=== PATIENT | female | born 1960 | race Caucasian/White ===

== ENCOUNTER 2020-02-24 08:44 | Inpatient (IN) ==
[2020-02-24] MEDS ORDERED: SODIUM CHLORIDE 0.9% 1000ML 1,000 ML IV ONE ×2 (08:53→09:45)
[2020-02-24] MEDS ORDERED: LEVOFLOXACIN/D5W 750 MG/150 ML BAG IV STA (08:54)
[2020-02-24 09:19] LABS: INR 1.4 (0.9-1.1); Partial Thromboplastin Ratio 1.2; Partial Thromboplastin Time 34.7 Seconds (21.0-31.0); Prothrombin Time 14.6 Seconds (9.0-12.0)
[2020-02-24] MEDS ORDERED: VANCOMYCIN CONSULT ACTIVE PRN ×2 (09:19→15:42)
[2020-02-24] MEDS ORDERED: VANCOMYCIN HCL 1,750 MG in SODIUM CHLORIDE 0.9% 500 ML IV ONE (09:19)
[2020-02-24 09:24] LABS: Albumin Level 2.5 gm/dl (3.4-5.0); BUN Creatinine Ratio 15.5 (10-20); Calcium 8.2 mg/dl (8.5-10.1); Est GFR (African American) 115.5; Est GFR (Non-African American) 99.6; Magnesium 1.4 mg/dl (1.8-2.4)
[2020-02-24 09:37] LABS: Hematocrit (blood only) 29.8 % (37-47); Hemoglobin 9.2 g/dL (12.0-16.0); Mean Corpuscular Hgb Conc 30.9 g/dL (32-36); Mean Corpuscular Volume 97.1 fL (80-100); Mean Platelet Volume 12.1 fL (7.4-10.4); Platelet Count 96 K/uL (130-400); RDW Coefficient of Variation 18.9 % (11.5-14.5); RDW Standard Deviation 66.6 fL (36.4-46.3); Red Blood Count 3.07 M/uL (4.2-5.4); White Blood Count 13.21 K/uL (4.8-10.8)
[2020-02-24 09:38] LABS: Basophils # (auto) 0.01 K/uL (0-0.2); Basophils % (auto) 0.1 %; Immature Granulocytes # (auto) 0.08 K/uL (0.00-0.02); Immature Granulocytes % (auto) 0.6 %; Lymphocytes # (auto) 0.32 K/uL (1.2-3.4); Lymphocytes % (auto) 2.4 %; Monocytes # (auto) 0.81 K/uL (0.11-0.59); Monocytes % (auto) 6.1 %; Neutrophils # (auto) 11.99 K/uL (1.4-6.5); Neutrophils % (auto) 90.8 %; Ovalocytes 1+; Platelet Estimate Decreased (Normal); Tear Drop Cells 1+
[2020-02-24 09:44] LABS: Albumin Globulin Ratio 0.7 (0.9-2); Bilirubin,Total 0.9 mg/dl (0.2-1); Globulin 3.6 gm/dl (2.5-4.0); Total Protein 6.1 gm/dl (6.4-8.2); Troponin I 0.262 ng/ml (0-0.045)
[2020-02-24] MEDS ORDERED: LIDOCAINE HCL 1% 20 ML VIAL ONE (09:44)
--- NOTE | 2020-02-24 09:58 | XRay Report ---
XR chest 1V portable CLINICAL HISTORY: SEPSIS dyspnea COMPARISON STUDY: 02/06/2020 FINDINGS: Chronic bilateral parenchymal fibrosis. No evidence for superimposed infiltrate. Diaphragms are smooth. IMPRESSION: Chronic interstitial change. No acute process. ACT 112: Negative or not required by law. The above report was generated using voice recognition software. It may contain grammatical, syntax or spelling errors. Electronically signed by: Faisal Chung M.D. 02/24/2020 9:57 AM
[2020-02-24 10:18] LABS: Influenza A virus by PCR Neg for Influ A (Neg); Influenza B virus by PCR Neg for Influ B (Neg)
--- NOTE | 2020-02-24 10:20 | Emergency Department Note ---
History of Present Illness General Chief Complaint: Confusion Stated Complaint: ams Time Seen by Provider: 02/24/20 08:47 Source: patient, EMS, old records reviewed and other (Dr. Walsh) Mode of arrival: EMS Limitations: altered mental status History of Present Illness Provider complaint: altered mental status, confusion and weakness Onset (ago): day(s) 1 Severity: moderate Maximum Pain Intensity: 4 Consistency of symptoms: getting worse Associated symptoms: + fever, + headaches, + weakness and + diarrhea This is a 60-year-old female who was originally seen in the emergency department here on the February 05 with a hip fracture. She was sent to [facility] for surgery because of additional thrombocytopenia and anemia. The patient had surgery there and then was subsequently sent to [facility] for rehab. The patient was diagnosed with a pneumonia based on a chest x-ray that was done at [facility] yesterday. She also had some blood work from [facility] yesterday. Her urine yesterday did not show obvious infection. The patient does have an indwelling Bautista catheter. She also has a left leg brace in place. The patient was found to be altered this morning. She had a fever overnight. EMS showed a blood sugar of 132 when they picked her up at [facility] today. Dr. Walsh from [facility] states that the patient had been on cefepime up until 3 days ago when it was discontinued. The patient complains of a headache. She otherwise seems weak and has an occasional cough. Home Medications Home Medications Medication Instructions Recorded Confirmed Type dextroamphetamine-amphetamine 10 mg PO TID 02/06/20 02/24/20 History acetaminophen [Tylenol] 650 mg PO Q4H PRN 02/24/20 02/24/20 History acetaminophen-codeine 1 - 2 tab PO Q4H PRN 02/24/20 02/24/20 History albuterol sulfate 2 puff INHALATION QID PRN 02/24/20 02/24/20 History ascorbic acid (vitamin C) 500 mg PO DAILY 02/24/20 02/24/20 History bisacodyl 10 mg MD DAILY PRN 02/24/20 02/24/20 History calcium carbonate-vitamin D3 1 tab PO DAILY 02/24/20 02/24/20 History [Calcium 500 + D] cefepime in dextrose 5 % 1 g IV Q6H 02/24/20 02/24/20 History docusate sodium 100 mg PO BID 02/24/20 02/24/20 History enoxaparin 40 mg SUBCUT DAILY 02/24/20 02/24/20 History fluticasone propionate 2 spray INTRANASAL DAILY 02/24/20 02/24/20 History ipratropium-albuterol 3 ml INHALATION Q4H PRN 02/24/20 02/24/20 History loratadine 10 mg PO DAILY PRN 02/24/20 02/24/20 History metoprolol tartrate 25 mg PO Q12H 02/24/20 02/24/20 History metronidazole 500 mg PO Q8H 02/24/20 02/24/20 History multivitamin 1 tab PO DAILY 02/24/20 02/24/20 History olopatadine 1 drp OPB BID 02/24/20 02/24/20 History ondansetron 4 mg PO Q6H PRN 02/24/20 02/24/20 History polyethylene glycol 3350 [Miralax] 17 g PO QDL PRN 02/24/20 02/24/20 History sennosides-docusate sodium 1 tab-cap PO QDL PRN 02/24/20 02/24/20 History [Senokot-S] sodium phosphates 133 ml MD DAILY PRN 02/24/20 02/24/20 History Allergies Allergy/AdvReac Type Severity Reaction Status Date / Time Penicillins Allergy Severe ANAPHYLAXIS Verified 02/24/20 09:43 acetaminophen AdvReac Intermediate Nausea Unverified 02/24/20 09:43 [From Lorcet (hydrocodone)] hydrocodone AdvReac Intermediate Nausea Unverified 02/24/20 09:43 [From Lorcet (hydrocodone)] Past Med/Surg History Medical History History of CVA (cerebrovascular accident) Surgical History History of appendectomy History of shoulder surgery Social History Preferred Language: Maltese Feels Safe at Home: Yes Smoking Status: Unknown if ever smoked Review of Systems A total of 10 systems reviewed and were otherwise negative Physical Exam Vital Signs Vital Signs - 24 hr 02/24/20 08:54 02/24/20 09:09 02/24/20 09:12 Temperature 38.4 C H Temperature Source Oral Pulse Rate 106 H Pulse Rate [Right Finger] Pulse Rhythm Regular Pulse Strength Normal Respiratory Rate 22 Respiratory Effort / Characteristics Non-Labored Spontaneous Respiratory Depth Normal Respiratory Pattern Regular Blood Pressure 126/61 Blood Pressure [Right Arm] Blood Pressure Mean 82 Blood Pressure Mean [Right Arm] Blood Pressure Position Lying Pulse Oximetry 94 94 Oxygen Delivery Method Room Air Room Air Nasal Cannula Oxygen Flow Rate 1 Sepsis Recent Fever Within 48 Hours Yes Sepsis New/Unexplained Change in Mental Status Yes Sepsis Action Taken by Nursing Physician Notified 02/24/20 09:37 02/24/20 10:00 02/24/20 10:25 Temperature Temperature Source Pulse Rate Pulse Rate [Right Finger] 104 H 98 H 100 H Pulse Rhythm Pulse Strength Respiratory Rate 19 29 H 28 H Respiratory Effort / Characteristics Non-Labored Non-Labored Respiratory Depth Normal Normal Respiratory Pattern Blood Pressure Blood Pressure [Right Arm] 126/63 122/61 151/71 H Blood Pressure Mean Blood Pressure Mean [Right Arm] 84 81 97 Blood Pressure Position Pulse Oximetry 97 98 100 Oxygen Delivery Method Nasal Cannula Nasal Cannula Nasal Cannula Oxygen Flow Rate 1 1 1 Sepsis Recent Fever Within 48 Hours Sepsis New/Unexplained Change in Mental Status Sepsis Action Taken by Nursing 02/24/20 11:30 Temperature Temperature Source Pulse Rate Pulse Rate [Right Finger] 93 H Pulse Rhythm Pulse Strength Respiratory Rate 20 Respiratory Effort / Characteristics Respiratory Depth Respiratory Pattern Blood Pressure Blood Pressure [Right Arm] 128/68 Blood Pressure Mean Blood Pressure Mean [Right Arm] 88 Blood Pressure Position Pulse Oximetry 97 Oxygen Delivery Method Room Air Oxygen Flow Rate Sepsis Recent Fever Within 48 Hours Sepsis New/Unexplained Change in Mental Status Sepsis Action Taken by Nursing CONSTITUTIONAL/VITAL SIGNS: Reviewed / noted above. GENERAL: Non-toxic in appearance. INTEGUMENTARY: Warm, dry, and [place]. HEAD: Normocephalic. EYES: without scleral icterus or trauma. ENT/OROPHARYNX: clear and dry. LYMPHADENOPATHY/NECK: Is supple without lymphadenopathy or meningismus. RESPIRATORY: Lungs clear and diminished. CARDIOVASCULAR: Tachycardic rate and regular rhythm. GI/ABDOMEN: Soft and nontender. No organomegaly or pulsatile mass. No rebound or guarding. Normal bowel sounds. Indwelling Bautista catheter. EXTREMITIES: Warm and well perfused. The patient does have a left leg brace in place. This was taken down. The surgical wound on the left side of the femur has esperanza in place. There is no obvious redness or discharge or bleeding. BACK: No CVA tenderness. NEUROLOGICAL: The patient is weak. At the time of my exam, she did answer most questions appropriately and does not appear to be significantly confused. She does complain of a headache and neck pain. PSYCHIATRIC: normal affect. MUSCULOSKELETAL: Generally weak and debilitated TRIAGE NURSING DOCUMENTATION REVIEWED. Procedures Lumbar Puncture Time Out Performed: Yes Patient Position: left lateral decubitus Skin Prep: Povidone-Iodine 1% Local Anesthetic: lidocaine 1% Amount of anesthesia used (mL): 5 Spinal Needle Gauge: 20G Interspace Used: L4-L5 Fluid Initially Obtained: clear Complications: none Additional Comments: A total of 10 cc of fluid was obtained. Course Administered Medications Discontinued Medications Acetaminophen (Tylenol) 500 mg PO NOW STA Stop: 02/24/20 10:43 Last Admin: 02/24/20 11:20 Dose: 500 mg Documented by: [id number] Sodium Chloride (Nss 1000ml) 1,000 mls @ 999 mls/hr IV .Q1H1M ONE Stop: 02/24/20 09:53 Last Admin: 02/24/20 11:20 Dose: 999 mls/hr Documented by: [id number] Levofloxacin/Dextrose (Levaquin/D5w) 750 mg in 150 mls @ 100 mls/hr IV NOW STA Stop: 02/24/20 10:23 Last Infusion: 02/24/20 10:55 Dose: 0 mls/hr Documented by: [id number] Admin: 02/24/20 09:12 Dose: 100 mls/hr Documented by: [id number] Vancomycin HCl 1,750 mg/ (Sodium Chloride) 535 mls @ 200 mls/hr IV NOW ONE Stop: 02/24/20 11:59 Last Admin: 02/24/20 10:56 Dose: 200 mls/hr Documented by: [id number] Sodium Chloride (Nss 1000ml) 1,000 mls @ 999 mls/hr IV .Q1H1M ONE Stop: 02/24/20 10:45 Last Infusion: 02/24/20 11:21 Dose: 0 mls/hr Documented by: [id number] Admin: 02/24/20 09:12 Dose: 999 mls/hr Documented by: [id number] Lidocaine HCl (Xylocaine 1% (Local)) Confirm Administered Dose 20 ml .ROUTE .STK-MED ONE Stop: 02/24/20 09:45 Last Admin: 02/24/20 10:54 Dose: 20 ml Documented by: [id number] Raspberry (Raspberry) 5 ml PO ONE STA Stop: 02/24/20 11:22 Last Admin: 02/24/20 12:24 Dose: 5 ml Documented by: [id number] Vancomycin HCl (Vancomycin Hcl) 125 mg PO ONE STA Stop: 02/24/20 11:22 Last Admin: 02/24/20 12:24 Dose: 125 mg Documented by: [id number] Medical Decision Making Laboratory Data : 02/24/20 08:55 02/24/20 08:55 Lab Results 02/24/20 02/24/20 02/24/20 Range/Units 08:55 08:55 08:55 WBC 13.21 H (4.8-10.8) K/uL RBC 3.07 L (4.2-5.4) M/uL Hgb 9.2 L (12.0-16.0) g/dL Hct 29.8 L (37-47) % MCV 97.1 (80-100) fL MCH 30.0 (25-34) pg MCHC 30.9 L (32-36) g/dL RDW Std Deviation 66.6 H (36.4-46.3) fL RDW Coeff of Dewayne 18.9 H (11.5-14.5) % Plt Count 96 L (130-400) K/uL MPV 12.1 H (7.4-10.4) fL Immature Gran % (Auto) 0.6 % Neut % (Auto) 90.8 % Lymph % (Auto) 2.4 % Nance % (Auto) 6.1 % Eos % (Auto) 0.0 % Baso % (Auto) 0.1 % Immature Gran # (Auto) 0.08 H (0.00-0.02) K/uL Neut # (Auto) 11.99 H (1.4-6.5) K/uL Lymph # (Auto) 0.32 L (1.2-3.4) K/uL Nance # (Auto) 0.81 H (0.11-0.59) K/uL Eos # (Auto) 0.00 (0-0.5) K/uL Baso # (Auto) 0.01 (0-0.2) K/uL Platelet Estimate Decreased L (Normal) Tear Drop Cells 1+ Ovalocytes 1+ PT 14.6 H (9.0-12.0) Seconds INR 1.4 H (0.9-1.1) APTT 34.7 H (21.0-31.0) Seconds PTT Ratio 1.2 Sodium 137 (136-145) mmol/L Potassium 3.0 L (3.5-5.1) mmol/L Chloride 108 H (98-107) mmol/L Carbon Dioxide 21 (21-32) mmol/L Anion Gap 9.0 (3-11) BUN 9 (7-18) mg/dl Creatinine 0.59 L (0.6-1.2) mg/dl Est Cr Clr Drug Dosing 117.0 ml/min Est GFR ( Amer) 115.5 Est GFR (Non-Af Amer) 99.6 BUN/Creatinine Ratio 15.5 (10-20) Glucose 116 H (70-99) mg/dl Lactate (0.4-2.0) mmol/L Calcium 8.2 L (8.5-10.1) mg/dl Magnesium 1.4 L (1.8-2.4) mg/dl Total Bilirubin 0.9 (0.2-1) mg/dl AST 29 (15-37) U/L ALT 21 (12-78) U/L Alkaline Phosphatase 94 (45-117) U/L Ammonia (11-32) umol/L Troponin I 0.262 H* (0-0.045) ng/ml Total Protein 6.1 L (6.4-8.2) gm/dl Albumin 2.5 L (3.4-5.0) gm/dl Globulin 3.6 (2.5-4.0) gm/dl Albumin/Globulin Ratio 0.7 L (0.9-2) Procalcitonin (0-0.5) ng/ml Urine Color Urine Appearance (Clear) Urine pH (4.5-7.5) Ur Specific Mesa (1.000-1.030) Urine Protein (Negative) Urine Glucose (UA) (Negative) Urine Ketones (Negative) Urine Blood (Negative) Urine Nitrite (Negative) Urine Bilirubin (Negative) Urine Urobilinogen (Negative) Ur Leukocyte Esterase (Negative) Urine WBC (Auto) (0-5) /hpf Urine RBC (Auto) (0-4) /hpf U Hyaline Cast (Auto) (0-5) /lpf U Epithel Cells (Auto) (0-5) /lpf Urine Bacteria (Auto) (Negative) CSF Appearance CSF Color Xanthrochromic CSF Specific Mesa (1.006-1.008) CSF WBC (0-5) /uL CSF RBC (0-) /uL CSF Cell Count Tube # CSF Chemistry Tube # CSF Glucose (40-70) mg/dl CSF Total Protein (15-45) mg/dl CSF C.neoform/gat PCR (NotDetected) CSF CMV DNA (PCR) (NotDetected) CSF Enterovirus (PCR) (NotDetected) CSF E. coli K1 (PCR) (NotDetected) CSF H. influenzae (PCR) (NotDetected) CSF HSV I (PCR) (NotDetected) CSF HSV II (PCR) (NotDetected) CSF HHV 6 (PCR) (NotDetected) CSF L.monocytogenes PCR (NotDetected) CSF N. meningitidis PCR (NotDetected) CSF Parechovirus (PCR) (NotDetected) CSF S. agalactiae (PCR) (NotDetected) CSF S. pneumoniae (PCR) (NotDetected) CSF VZV DNA (PCR) (NotDetected) Stl C. diff Tox B Gene (Neg) Stl C.difficile Tox A&B (Negative) Influenza Type A (PCR) (Neg) Influenza Type B (PCR) (Neg) 02/24/20 02/24/20 02/24/20 Range/Units 08:55 09:20 09:20 WBC (4.8-10.8) K/uL RBC (4.2-5.4) M/uL Hgb (12.0-16.0) g/dL Hct (37-47) % MCV (80-100) fL MCH (25-34) pg MCHC (32-36) g/dL RDW Std Deviation (36.4-46.3) fL RDW Coeff of Dewayne (11.5-14.5) % Plt Count (130-400) K/uL MPV (7.4-10.4) fL Immature Gran % (Auto) % Neut % (Auto) % Lymph % (Auto) % Nance % (Auto) % Eos % (Auto) % Baso % (Auto) % Immature Gran # (Auto) (0.00-0.02) K/uL Neut # (Auto) (1.4-6.5) K/uL Lymph # (Auto) (1.2-3.4) K/uL Nance # (Auto) (0.11-0.59) K/uL Eos # (Auto) (0-0.5) K/uL Baso # (Auto) (0-0.2) K/uL Platelet Estimate (Normal) Tear Drop Cells Ovalocytes PT (9.0-12.0) Seconds INR (0.9-1.1) APTT (21.0-31.0) Seconds PTT Ratio Sodium (136-145) mmol/L Potassium (3.5-5.1) mmol/L Chloride (98-107) mmol/L Carbon Dioxide (21-32) mmol/L Anion Gap (3-11) BUN (7-18) mg/dl Creatinine (0.6-1.2) mg/dl Est Cr Clr Drug Dosing ml/min Est GFR ( Amer) Est GFR (Non-Af Amer) BUN/Creatinine Ratio (10-20) Glucose (70-99) mg/dl Lactate 1.8 (0.4-2.0) mmol/L Calcium (8.5-10.1) mg/dl Magnesium (1.8-2.4) mg/dl Total Bilirubin (0.2-1) mg/dl AST (15-37) U/L ALT (12-78) U/L Alkaline Phosphatase (45-117) U/L Ammonia 51.3 H (11-32) umol/L Troponin I (0-0.045) ng/ml Total Protein (6.4-8.2) gm/dl Albumin (3.4-5.0) gm/dl Globulin (2.5-4.0) gm/dl Albumin/Globulin Ratio (0.9-2) Procalcitonin 1.00 H (0-0.5) ng/ml Urine Color Urine Appearance (Clear) Urine pH (4.5-7.5) Ur Specific Mesa (1.000-1.030) Urine Protein (Negative) Urine Glucose (UA) (Negative) Urine Ketones (Negative) Urine Blood (Negative) Urine Nitrite (Negative) Urine Bilirubin (Negative) Urine Urobilinogen (Negative) Ur Leukocyte Esterase (Negative) Urine WBC (Auto) (0-5) /hpf Urine RBC (Auto) (0-4) /hpf U Hyaline Cast (Auto) (0-5) /lpf U Epithel Cells (Auto) (0-5) /lpf Urine Bacteria (Auto) (Negative) CSF Appearance CSF Color Xanthrochromic CSF Specific Mesa (1.006-1.008) CSF WBC (0-5) /uL CSF RBC (0-) /uL CSF Cell Count Tube # CSF Chemistry Tube # CSF Glucose (40-70) mg/dl CSF Total Protein (15-45) mg/dl CSF C.neoform/gat PCR (NotDetected) CSF CMV DNA (PCR) (NotDetected) CSF Enterovirus (PCR) (NotDetected) CSF E. coli K1 (PCR) (NotDetected) CSF H. influenzae (PCR) (NotDetected) CSF HSV I (PCR) (NotDetected) CSF HSV II (PCR) (NotDetected) CSF HHV 6 (PCR) (NotDetected) CSF L.monocytogenes PCR (NotDetected) CSF N. meningitidis PCR (NotDetected) CSF Parechovirus (PCR) (NotDetected) CSF S. agalactiae (PCR) (NotDetected) CSF S. pneumoniae (PCR) (NotDetected) CSF VZV DNA (PCR) (NotDetected) Stl C. diff Tox B Gene (Neg) Stl C.difficile Tox A&B (Negative) Influenza Type A (PCR) (Neg) Influenza Type B (PCR) (Neg) 02/24/20 02/24/20 02/24/20 Range/Units 09:30 10:00 10:00 WBC (4.8-10.8) K/uL RBC (4.2-5.4) M/uL Hgb (12.0-16.0) g/dL Hct (37-47) % MCV (80-100) fL MCH (25-34) pg MCHC (32-36) g/dL RDW Std Deviation (36.4-46.3) fL RDW Coeff of Dewayne (11.5-14.5) % Plt Count (130-400) K/uL MPV (7.4-10.4) fL Immature Gran % (Auto) % Neut % (Auto) % Lymph % (Auto) % Nance % (Auto) % Eos % (Auto) % Baso % (Auto) % Immature Gran # (Auto) (0.00-0.02) K/uL Neut # (Auto) (1.4-6.5) K/uL Lymph # (Auto) (1.2-3.4) K/uL Nance # (Auto) (0.11-0.59) K/uL Eos # (Auto) (0-0.5) K/uL Baso # (Auto) (0-0.2) K/uL Platelet Estimate (Normal) Tear Drop Cells Ovalocytes PT (9.0-12.0) Seconds INR (0.9-1.1) APTT (21.0-31.0) Seconds PTT Ratio Sodium (136-145) mmol/L Potassium (3.5-5.1) mmol/L Chloride (98-107) mmol/L Carbon Dioxide (21-32) mmol/L Anion Gap (3-11) BUN (7-18) mg/dl Creatinine (0.6-1.2) mg/dl Est Cr Clr Drug Dosing ml/min Est GFR ( Amer) Est GFR (Non-Af Amer) BUN/Creatinine Ratio (10-20) Glucose (70-99) mg/dl Lactate (0.4-2.0) mmol/L Calcium (8.5-10.1) mg/dl Magnesium (1.8-2.4) mg/dl Total Bilirubin (0.2-1) mg/dl AST (15-37) U/L ALT (12-78) U/L Alkaline Phosphatase (45-117) U/L Ammonia (11-32) umol/L Troponin I (0-0.045) ng/ml Total Protein (6.4-8.2) gm/dl Albumin (3.4-5.0) gm/dl Globulin (2.5-4.0) gm/dl Albumin/Globulin Ratio (0.9-2) Procalcitonin (0-0.5) ng/ml Urine Color Urine Appearance (Clear) Urine pH (4.5-7.5) Ur Specific Mes[place] (1.000-1.030) Urine Protein (Negative) Urine Glucose (UA) (Negative) Urine Ketones (Negative) Urine Blood (Negative) Urine Nitrite (Negative) Urine Bilirubin (Negative) Urine Urobilinogen (Negative) Ur Leukocyte Esterase (Negative) Urine WBC (Auto) (0-5) /hpf Urine RBC (Auto) (0-4) /hpf U Hyaline Cast (Auto) (0-5) /lpf U Epithel Cells (Auto) (0-5) /lpf Urine Bacteria (Auto) (Negative) CSF Appearance Clear CSF Color Colorless Xanthrochromic No xanthochromia CSF Specific Mesa (1.006-1.008) CSF WBC 0 (0-5) /uL CSF RBC 0 (0-) /uL CSF Cell Count Tube # 3 CSF Chemistry Tube # 1 CSF Glucose 60 (40-70) mg/dl CSF Total Protein 31.4 (15-45) mg/dl CSF C.neoform/gat PCR (NotDetected) CSF CMV DNA (PCR) (NotDetected) CSF Enterovirus (PCR) (NotDetected) CSF E. coli K1 (PCR) (NotDetected) CSF H. influenzae (PCR) (NotDetected) CSF HSV I (PCR) (NotDetected) CSF HSV II (PCR) (NotDetected) CSF HHV 6 (PCR) (NotDetected) CSF L.monocytogenes PCR (NotDetected) CSF N. meningitidis PCR (NotDetected) CSF Parechovirus (PCR) (NotDetected) CSF S. agalactiae (PCR) (NotDetected) CSF S. pneumoniae (PCR) (NotDetected) CSF VZV DNA (PCR) (NotDetected) Stl C. diff Tox B Gene (Neg) Stl C.difficile Tox A&B (Negative) Influenza Type A (PCR) Neg for Influ A (Neg) Influenza Type B (PCR) Neg for Influ B (Neg) 02/24/20 02/24/20 02/24/20 Range/Units 10:00 10:00 10:00 WBC (4.8-10.8) K/uL RBC (4.2-5.4) M/uL Hgb (12.0-16.0) g/dL Hct (37-47) % MCV (80-100) fL MCH (25-34) pg MCHC (32-36) g/dL RDW Std Deviation (36.4-46.3) fL RDW Coeff of Dewayne (11.5-14.5) % Plt Count (130-400) K/uL MPV (7.4-10.4) fL Immature Gran % (Auto) % Neut % (Auto) % Lymph % (Auto) % Nance % (Auto) % Eos % (Auto) % Baso % (Auto) % Immature Gran # (Auto) (0.00-0.02) K/uL Neut # (Auto) (1.4-6.5) K/uL Lymph # (Auto) (1.2-3.4) K/uL Nance # (Auto) (0.11-0.59) K/uL Eos # (Auto) (0-0.5) K/uL Baso # (Auto) (0-0.2) K/uL Platelet Estimate (Normal) Tear Drop Cells Ovalocytes PT (9.0-12.0) Seconds INR (0.9-1.1) APTT (21.0-31.0) Seconds PTT Ratio Sodium (136-145) mmol/L Potassium (3.5-5.1) mmol/L Chloride (98-107) mmol/L Carbon Dioxide (21-32) mmol/L Anion Gap (3-11) BUN (7-18) mg/dl Creatinine (0.6-1.2) mg/dl Est Cr Clr Drug Dosing ml/min Est GFR ( Amer) Est GFR (Non-Af Amer) BUN/Creatinine Ratio (10-20) Glucose (70-99) mg/dl Lactate (0.4-2.0) mmol/L Calcium (8.5-10.1) mg/dl Magnesium (1.8-2.4) mg/dl Total Bilirubin (0.2-1) mg/dl AST (15-37) U/L ALT (12-78) U/L Alkaline Phosphatase (45-117) U/L Ammonia (11-32) umol/L Troponin I (0-0.045) ng/ml Total Protein (6.4-8.2) gm/dl Albumin (3.4-5.0) gm/dl Globulin (2.5-4.0) gm/dl Albumin/Globulin Ratio (0.9-2) Procalcitonin (0-0.5) ng/ml Urine Color Urine Appearance (Clear) Urine pH (4.5-7.5) Ur Specific [place] (1.000-1.030) Urine Protein (Negative) Urine Glucose (UA) (Negative) Urine Ketones (Negative) Urine Blood (Negative) Urine Nitrite (Negative) Urine Bilirubin (Negative) Urine Urobilinogen (Negative) Ur Leukocyte Esterase (Negative) Urine WBC (Auto) (0-5) /hpf Urine RBC (Auto) (0-4) /hpf U Hyaline Cast (Auto) (0-5) /lpf U Epithel Cells (Auto) (0-5) /lpf Urine Bacteria (Auto) (Negative) CSF Appearance CSF Color Xanthrochromic CSF Specific [place] 1.005 L (1.006-1.008) CSF WBC (0-5) /uL CSF RBC (0-) /uL CSF Cell Count Tube # CSF Chemistry Tube # CSF Glucose (40-70) mg/dl CSF Total Protein Cancelled (15-45) mg/dl CSF C.neoform/gat PCR Not Detected (NotDetected) CSF CMV DNA (PCR) Not Detected (NotDetected) CSF Enterovirus (PCR) Not Detected (NotDetected) CSF E. coli K1 (PCR) Not Detected (NotDetected) CSF H. influenzae (PCR) Not Detected (NotDetected) CSF HSV I (PCR) Not Detected (NotDetected) CSF HSV II (PCR) Not Detected (NotDetected) CSF HHV 6 (PCR) Not Detected (NotDetected) CSF L.monocytogenes PCR Not Detected (NotDetected) CSF N. meningitidis PCR Not Detected (NotDetected) CSF Parechovirus (PCR) Not Detected (NotDetected) CSF S. agalactiae (PCR) Not Detected (NotDetected) CSF S. pneumoniae (PCR) Not Detected (NotDetected) CSF VZV DNA (PCR) Not Detected (NotDetected) Stl C. diff Tox B Gene (Neg) Stl C.difficile Tox A&B (Negative) Influenza Type A (PCR) (Neg) Influenza Type B (PCR) (Neg) 02/24/20 02/24/20 Range/Units 10:10 10:10 WBC (4.8-10.8) K/uL RBC (4.2-5.4) M/uL Hgb (12.0-16.0) g/dL Hct (37-47) % MCV (80-100) fL MCH (25-34) pg MCHC (32-36) g/dL RDW Std Deviation (36.4-46.3) fL RDW Coeff of Dewayne (11.5-14.5) % Plt Count (130-400) K/uL MPV (7.4-10.4) fL Immature Gran % (Auto) % Neut % (Auto) % Lymph % (Auto) % Nance % (Auto) % Eos % (Auto) % Baso % (Auto) % Immature Gran # (Auto) (0.00-0.02) K/uL Neut # (Auto) (1.4-6.5) K/uL Lymph # (Auto) (1.2-3.4) K/uL Nance # (Auto) (0.11-0.59) K/uL Eos # (Auto) (0-0.5) K/uL Baso # (Auto) (0-0.2) K/uL Platelet Estimate (Normal) Tear Drop Cells Ovalocytes PT (9.0-12.0) Seconds INR (0.9-1.1) APTT (21.0-31.0) Seconds PTT Ratio Sodium (136-145) mmol/L Potassium (3.5-5.1) mmol/L Chloride (98-107) mmol/L Carbon Dioxide (21-32) mmol/L Anion Gap (3-11) BUN (7-18) mg/dl Creatinine (0.6-1.2) mg/dl Est Cr Clr Drug Dosing ml/min Est GFR ( Amer) Est GFR (Non-Af Amer) BUN/Creatinine Ratio (10-20) Glucose (70-99) mg/dl Lactate (0.4-2.0) mmol/L Calcium (8.5-10.1) mg/dl Magnesium (1.8-2.4) mg/dl Total Bilirubin (0.2-1) mg/dl AST (15-37) U/L ALT (12-78) U/L Alkaline Phosphatase (45-117) U/L Ammonia (11-32) umol/L Troponin I (0-0.045) ng/ml Total Protein (6.4-8.2) gm/dl Albumin (3.4-5.0) gm/dl Globulin (2.5-4.0) gm/dl Albumin/Globulin Ratio (0.9-2) Procalcitonin (0-0.5) ng/ml Urine Color Dark Yellow Urine Appearance Clear (Clear) Urine pH 5.0 (4.5-7.5) Ur Specific Mesa 1.022 (1.000-1.030) Urine Protein Negative (Negative) Urine Glucose (UA) Negative (Negative) Urine Ketones Trace H (Negative) Urine Blood 1+ H (Negative) Urine Nitrite Negative (Negative) Urine Bilirubin Negative (Negative) Urine Urobilinogen Negative (Negative) Ur Leukocyte Esterase Trace H (Negative) Urine WBC (Auto) 1-5 (0-5) /hpf Urine RBC (Auto) 0-4 (0-4) /hpf U Hyaline Cast (Auto) 5-10 H (0-5) /lpf U Epithel Cells (Auto) 20-30 H (0-5) /lpf Urine Bacteria (Auto) Negative (Negative) CSF Appearance CSF Color Xanthrochromic CSF Specific [place] (1.006-1.008) CSF WBC (0-5) /uL CSF RBC (0-) /uL CSF Cell Count Tube # CSF Chemistry Tube # CSF Glucose (40-70) mg/dl CSF Total Protein (15-45) mg/dl CSF C.neoform/gat PCR (NotDetected) CSF CMV DNA (PCR) (NotDetected) CSF Enterovirus (PCR) (NotDetected) CSF E. coli K1 (PCR) (NotDetected) CSF H. influenzae (PCR) (NotDetected) CSF HSV I (PCR) (NotDetected) CSF HSV II (PCR) (NotDetected) CSF HHV 6 (PCR) (NotDetected) CSF L.monocytogenes PCR (NotDetected) CSF N. meningitidis PCR (NotDetected) CSF Parechovirus (PCR) (NotDetected) CSF S. agalactiae (PCR) (NotDetected) CSF S. pneumoniae (PCR) (NotDetected) CSF VZV DNA (PCR) (NotDetected) Stl C. diff Tox B Gene Positive Cdiff Gene H (Neg) Stl C.difficile Tox A&B Positive Cdiff Toxin A* (Negative) Influenza Type A (PCR) (Neg) Influenza Type B (PCR) (Neg) Imaging Data Attestation: I personally reviewed and interpreted this imaging study as follows: Radiologist's Impression: XR chest 1V portable CLINICAL HISTORY: SEPSIS dyspnea COMPARISON STUDY: 02/06/2020 FINDINGS: Chronic bilateral parenchymal fibrosis. No evidence for superimposed infiltrate. Diaphragms are smooth. IMPRESSION: Chronic interstitial change. No acute process. ECG Data Attestation: I personally reviewed and interpreted this ECG as follows: Indication: altered mental status Rate (beats per minute): 110 Rhythm: sinus tachycardia Findings: no PVC, no ST elevation and no prolonged QT Blood Pressure Blood Pressure Findings: Normal blood pressure MDM Narrative This is a 60-year-old female who was originally seen in the emergency department here on the February 05 with a hip fracture. She was sent to [facility] for surgery because of additional thrombocytopenia and anemia. The patient had surgery there and then was subsequently sent to [facility] for rehab. The patient was diagnosed with a pneumonia based on a chest x-ray that was done at [facility] yesterday. She also had some blood work from [facility] yesterday. Her urine yesterday did not show obvious infection. The patient does have an indwelling Bautista catheter. She also has a left leg brace in place. The patient was found to be altered this morning. She had a fever overnight. EMS showed a blood sugar of 132 when they picked her up at [facility] today. Dr. Walsh from [facility] [facility] states that the patient had been on cefepime up until 3 days ago when it was discontinued. A chest x-ray that he performed yesterday showed bilateral upper lobe pneumonias. The patient complains of a headache. She otherwise seems weak and has an occasional cough. The patient's chest x-ray here did not show acute process. An EKG showed a sinus tach at a rate of 110. Ammonia level slightly elevated at 51. White blood cell count was 13. Hemoglobin is 9.2. Lactic acid was negative. Potassium is 3. Troponin is elevated at 0.262. Flu swab was negative. CSF did not show evidence of meningitis. Urinalysis did not show infection. C. difficile testing was positive. The patient was empirically treated with IV fluids as well as IV vancomycin and IV Levaquin. She also was given oral vancomycin. She was given some p.o. Tylenol for fever. I did speak with the hospitalist about this patient. She will be seen for further inpatient evaluation and care. Impression & Plan Fever, Pneumonia, Hyperammonemia, AMS (altered mental status), Elevated troponin, C. difficile diarrhea Critical Care Time Critical Care Time: Yes Total Critical Care Time: 35 I have personally spent 35 minutes of critical care time in the direct man agement of this patient. This includes bedside care, interpretation of diagnostic studies, and testing, discussion with consultants, patient, and family members, and other required patient management activities. This 35 minutes is in excess of all separately billable procedures. Discharge Plan Visit Data Chief Complaint: Confusion Stated Complaint: ams ED Provider: Carl Luna Discharge Problem: Fever, Pneumonia, Hyperammonemia, AMS (altered mental status), Elevated troponin, C. difficile diarrhea Patient Disposition: Being Evaluated by Hospitalist Forms Stand Alone Forms: My [facility] Prescriptions Prescriptions: No Action dextroamphetamine-amphetamine 10 mg tablet 10 mg PO TID RF: 0 ascorbic acid (vitamin C) 500 mg Tablet 500 mg PO DAILY RF: 0 calcium carbonate-vitamin D3 [Calcium 500 + D] 500 mg(1,250mg) -200 unit Tablet 1 tab PO DAILY RF: 0 multivitamin Tablet 1 tab PO DAILY RF: 0 acetaminophen [Tylenol] 325 mg Tablet 650 mg PO Q4H PRN (Reason: fever/pain) RF: 0 ipratropium-albuterol 0.5 mg-3 mg(2.5 mg base)/3 mL Solution For Nebulization 3 ml INHALATION Q4H PRN (Reason: SOB) RF: 0 sennosides-docusate sodium [Senokot-S] 8.6-50 mg Tablet 1 tab-cap PO QDL PRN (Reason: Constipation) RF: 0 metronidazole 500 mg Tablet 500 mg PO Q8H RF: 0 acetaminophen-codeine 300-30 mg tablet 1 - 2 tab PO Q4H PRN (Reason: Pain) RF: 0 bisacodyl 10 mg Suppository 10 mg MD DAILY PRN (Reason: Constipation) RF: 0 olopatadine 0.1 % Drops 1 drp OPB BID RF: 0 docusate sodium 100 mg Capsule 100 mg PO BID RF: 0 polyethylene glycol 3350 [Miralax] 17 gram/dose Powder 17 g PO QDL PRN (Reason: Constipation) RF: 0 albuterol sulfate 90 mcg/actuation Hfa Aerosol Inhaler 2 puff INHALATION QID PRN (Reason: Wheezing) RF: 0 ondansetron 4 mg Tablet,Disintegrating 4 mg PO Q6H PRN (Reason: nausea) RF: 0 fluticasone propionate 50 mcg/actuation [place],Suspension 2 spray INTRANASAL DAILY RF: 0 loratadine 10 mg Tablet 10 mg PO DAILY PRN (Reason: Allergy Symptoms) RF: 0 enoxaparin 40 mg/0.4 mL Syringe 40 mg SUBCUT DAILY RF: 0 metoprolol tartrate 25 mg Tablet 25 mg PO Q12H RF: 0 cefepime in dextrose 5 % 1 gram/50 mL Piggyback 1 g IV Q6H RF: 0 sodium phosphates 19-7 gram/197 mL Enema 133 ml MD DAILY PRN (Reason: Constipation) RF: 0 Referrals Referrals: [facility] [Primary Care Provider] - Discharge Problem: Pneumonia Qualifiers: Pneumonia type: due to unspecified organism Laterality: bilateral Lung loc ation: upper lobe of lung Qualified Code(s): J18.9 - Pneumonia, unspecified organism
[2020-02-24 10:39] LABS: CSF Count Tube # 3
[2020-02-24 10:40] LABS: Appearance CSF Clear; CSF Xanthrochromic No xanthochromia; Color CSF Colorless; Red Blood Cell CSF (A) 0 /uL (0-); White Blood Cell CSF (A) 0 /uL (0-5)
[2020-02-24 10:41] LABS: Appearance Urine Clear (Clear); Bacteria Urine Automated Negative (Negative); Bilirubin Urine Negative (Negative); Blood Urine 1+ (Negative); Color Urine Dark Yellow; Epithelial Cell Urine Auto 20-30 /lpf (0-5); Glucose Urine UA Negative (Negative); Ketones Urine Trace (Negative); Leukocyte Esterase Urine Trace (Negative); Nitrite Urine Negative (Negative); Protein Urine Negative (Negative); RBC Urine Automated 0-4 /hpf (0-4); Specific Gravity Urine 1.022 (1.000-1.030); Urobilinogen Urine Negative (Negative)
[2020-02-24] MEDS ORDERED: ACETAMINOPHEN 500 MG TAB PO STA (10:42)
[2020-02-24 10:44] LABS: Total Protein CSF 31.4 mg/dl (15-45)
[2020-02-24] MEDS ORDERED: RASPBERRY SYRUP 5 ML UDP PO STA (11:21)
[2020-02-24] MEDS ORDERED: VANCOMYCIN HCL 125 MG/2.5ML SOLN PO STA (11:21)
--- NOTE | 2020-02-24 12:00 | History & Physical Report ---
Date of Service February 24, 2020 Assessment & Plan (1) C. difficile diarrhea: No abdominal pain. No reason for abdominal imaging at this time. Vancomycin PO every 6 hours. Supportive care. No laxatives--notably stool softeners were being given at [facility] (2) Acute metabolic encephalopathy: Multiple possible etiologies here and this list is not exhaustive. She clearly has a c-difficile diarrhea which she was high risk for with the recent a ntibiotics and hospital stay. She was also found to have a pneumonia during the [facility] hospitalization which was treated with cefepime and flagyl, with last antibiotics given on 02/20/2020 per ID recommendations. However, three days later she spiked a fever and now has confusion and persistent fever. Although there was no evidence of pneumonia on imaging in the ER today, a CXR at [facility] yesterday revealed bilateral upper lobe infiltrates which were new from 02/15. On 02/15 no infiltrates were seen. Therefore, ?pneumonia is another cause and with the elevated procalcitonin and ? shortness of breath will proceed with treatment of this pending culture results and clinical improvement. Appreciate ID assistance with their thoughts on this as we clearly want to minimize excessive antibiotics in light of the c-diff infection. UTI appears to have cleared and she still has the inswelling Bautista in place. (3) Pneumonia: Vanc and Levaquin given in the ER. Cont Vanc and Cefepime pending cultures and clinical improvement. (4) Elevated troponin: Likely related to demand ischemia in setting of sepsis. Covid also pending and if positive has been known to be associated with elevated troponins. Trend and obtain echo to ensure no acute wall motion abnormalities. Pt is currently denying chest pain. (5) Status post open reduction and internal fixation (ORIF) of fracture: Some pain present, T#3 PRN. Noted allergies to some narcotics. PT/OT (6) Acute urinary retention: Failed a TOV at [facility]. Will plan another TOV here once she improves clinically. (7) Cirrhosis: appears compensated. (8) Bipolar disorder: Adderall on hold. (9) Depression: Not medically treated, and appears stable. (10) Schizophrenia: appears stable. (11) HTN (hypertension): Question this diagnosis as prior records didn't seem to indicate an issue with blood pressure. She was discharged from [facility] on HCTZ and lisinopril, but uncertain if she was taking this at home or not. BP has been borderline low at rehab and both agents are being held in the setting of sepsis. Cont to monitor closely. (12) DVT prophylaxis: Lovenox DNR as confirmed on reports from rehab facility and by her medical alert band on her person. Nurse also discussed code status with her when she was more alert and she confirmed she was a DNR. Dispo-airborne precautions pending COVID test results, cont PCU monitoring. Yaquelin Harry [facility] and [facility]ticipated Discharge Date Anticipated date of discharge: 02/28/20 History of Present Illness Chief Complaint: I have pneumonia Primary Care Provider: Leslye Archuleta The patient is a 60 yo F who was admitted to [facility] for inpatient rehab on 02/13/2020 following discharge from [facility]. She had been admitted there on 02/06/2020 as a transfer from [facility]. She had a mechanical fall at home and was found to have a comminuted left distal shaft fracture and then transferred to [facility] because of significant anemia and thrombocytopenia. On 02/08/2020 she went to the OR for a removal of her deep hardware (from prior hip prosthesis) and an open reduction and internal fixation of her distal left femur fracture. A post-operative fever was persistent and she was found to have aspiration pneumonia and UTI during her admission. She was seen by ID and treated with cefepime and flagyl. These agents were continued for an additional 6 days beyond discharge with the last doses being given at [facility] on 02/20/2020. The patient was doing well clinically at [facility] with progress notes reflecting stable vital signs. She had borderline low blood pressure in the high 90s systolic and no evidence of fever for approximately 1 week and was participating in exercises. reports that she was self-treating her diarrhea at some point with OTC anti-diarrheals, but cannot pinpoint when this was. She had a chest x-ray performed on 02/15 that did not reveal evidence of pneumonia. Then she underwent another chest x-ray at [facility] on 02/22 because of a fever. This chest x-ray revealed new patchy infiltrates in bilateral upper lungs and right pericardiac region likely of infectious etiology, new since the prior examination on 02/15. She has an indwelling Bautista in her urine did not show obvious signs of infection on the urine studies performed at [facility]. Per her , the Bautista was placed at [facility] for a failed trial of void. She was found to be altered this morning (02/23) and was sent to the ER for further work-up. In the ER the patient's chest x-ray did not show any acute process. An EKG revealed sinus tachycardia at a rate of 110. With a history of cirrhosis and ammonia level was pulled and slightly elevated at 51. White blood cell count was 13. Hemoglobin was 9.2. Lactic acid was negative. Potassium was 3 and replacement was given. Troponin was elevated at 0.262. The patient denied any chest pain. A flu swab was negative. A lumbar puncture was performed that did not show evidence of meningitis. Her urinalysis did not show infection. C. difficile testing was positive. She was empirically treated with IV fluids as well as IV vancomycin and IV Levaquin. She was also given oral vancomycin. She was also given some Tylenol for fever. She was admitted to the hospital service for further work-up and management. Allergies Allergy/AdvReac Type Severity Reaction Status Date / Time Penicillins Allergy Severe ANAPHYLAXIS Verified 02/24/20 09:43 hydrocodone AdvReac Intermediate Nausea Unverified 02/24/20 09:43 [From Lorcet (hydrocodone)] Home Medications Home Medications Medication Instructions Recorded Confirmed Type dextroamphetamine-amphetamine 10 mg PO BID 02/06/20 02/24/20 History acetaminophen [Tylenol] 650 mg PO Q4H PRN 02/24/20 02/24/20 History acetaminophen-codeine 1 - 2 tab PO Q4H PRN 02/24/20 02/24/20 History albuterol sulfate 2 puff INHALATION QID PRN 02/24/20 02/24/20 History ascorbic acid (vitamin C) 500 mg PO DAILY 02/24/20 02/24/20 History bisacodyl 10 mg [place] DAILY PRN 02/24/20 02/24/20 History calcium carbonate-vitamin D3 1 tab PO DAILY 02/24/20 02/24/20 History [Calcium 500 + D] docusate sodium 100 mg PO BID 02/24/20 02/24/20 History enoxaparin 40 mg SUBCUT DAILY 02/24/20 02/24/20 History fluticasone propionate 2 spray INTRANASAL DAILY 02/24/20 02/24/20 History hydrochlorothiazide 25 mg PO DAILY 02/24/20 02/24/20 History ipratropium-albuterol 3 ml INHALATION Q4H PRN 02/24/20 02/24/20 History lisinopril 10 mg PO DAILY 02/24/20 02/24/20 History loratadine 10 mg PO DAILY PRN 02/24/20 02/24/20 History metoprolol tartrate 50 mg PO BID 02/24/20 02/24/20 History multivitamin 1 tab PO DAILY 02/24/20 02/24/20 History olopatadine 1 drp OPB BID 02/24/20 02/24/20 History ondansetron 4 mg PO Q6H PRN 02/24/20 02/24/20 History polyethylene glycol 3350 [Miralax] 17 g PO QDL PRN 02/24/20 02/24/20 History sennosides-docusate sodium 1 tab-cap PO QDL PRN 02/24/20 02/24/20 History [Senokot-S] sodium phosphates 133 ml [place] DAILY PRN 02/24/20 02/24/20 History Past Med/Surg History Medical History (Updated 02/24/20 @ 18:25 by Yaquelin Harry DO) Bipolar disorder Cirrhosis Depression History of CVA (cerebrovascular accident) Schizophrenia Surgical History (Updated 02/24/20 @ 18:12 by Yaquelin Harry DO) History of appendectomy History of shoulder surgery History of total hip replacement femur fracture one month later with repair, both in 2007 Status post open reduction and internal fixation (ORIF) of fracture Family History (Updated 02/24/20 @ 18:13 by Yaquelin Harry DO) Father Myocardial infarction Mother Colorectal cancer Social History Preferred Language: Slovak Feels Safe at Home: Yes Smoking Status: Current every day smoker Review of Systems Review of Systems: All systems reviewed & are unremarkable except as noted in Subjective (limited ROS secondary to fatigue and limited hearing ability. said she reads lips;we are wearing masks for rule out COVID) Physical Exam Physical Exam: CONSTITUTIONAL: WNWD, vitals as above, generally well- appearing but fatigue and easily falling asleep EYES: PERRL, normal conjunctivae, no scleral icterus ENT: external ear and nose normal, oropharynx clear, MMM NECK: trachea midline, no lymphadenopathy RESPIRATORY: clear to auscultation bilaterally, no crackles, rales or wheezes, normal respiratory effort CARDIOVASCULAR: regular rate and rhythm, S1 and 2 heard without murmurs, gallops or rubs, no JVD, no peripheral edema GASTROINTESTINAL: normal bowel sounds, soft, nontender, nondistended, no guarding MUSCULOSKELETAL: moving upper extremities well but limited movement or exam of lower extremity strength in light of post op pain in her left leg. SKIN: warm and dry, upper left leg wound covered with dressing that is c/d/i. Left leg brace in place. NEUROLOGIC: No facial palsy. CN 2-12 grossly intact, no sensory deficit, fatigued and somnolent, normal speech, no tremor, no gross focal deficits. PSYCHIATRIC: alert when prompted a few times, cooperative and oriented to person, place and time but would occasionally answer questions incorrectly. Seemed moreso because she couldn't hear the question correctly, however. Results & Data Results & Data ([facility]) Vital Signs (Past 12 Hours) Vital Signs Temp Pulse Pulse Resp BP BP Pulse Ox 02/24/20 11:30 93 H 20 128/68 97 02/24/20 10:25 100 H 28 H 151/71 H 100 02/24/20 10:00 98 H 29 H 122/61 98 02/24/20 09:37 104 H 19 126/63 97 02/24/20 09:09 94 02/24/20 08:54 38.4 C H 106 H 22 126/61 94 Laboratory Results Short CBC 02/24/20 Range/Units 08:55 WBC 13.21 H (4.8-10.8) K/uL Hgb 9.2 L (12.0-16.0) g/dL Hct 29.8 L (37-47) % Plt Count 96 L (130-400) K/uL BMP 02/24/20 08:55 Sodium 137 Potassium 3.0 L Chloride 108 H Carbon Dioxide 21 BUN 9 Creatinine 0.59 L Glucose 116 H Calcium 8.2 L Cardiac Enzymes 02/24/20 Range/Units 08:55 Troponin I 0.262 H* (0-0.045) ng/ml Liver Function 02/24/20 Range/Units 08:55 Total Bilirubin 0.9 (0.2-1) mg/dl AST 29 (15-37) U/L ALT 21 (12-78) U/L Alkaline Phosphatase 94 (45-117) U/L Albumin 2.5 L (3.4-5.0) gm/dl Urine 02/24/20 Range/Units 10:10 Urine Color Dark Yellow Urine Appearance Clear (Clear) Urine pH 5.0 (4.5-7.5) Ur Specific [place] 1.022 (1.000-1.030) Urine Protein Negative (Negative) Urine Glucose (UA) Negative (Negative) Diagnostic Findings XR chest 1V portable CLINICAL HISTORY: SEPSIS dyspnea COMPARISON STUDY: 02/06/2020 FINDINGS: Chronic bilateral parenchymal fibrosis. No evidence for superimposed infiltrate. Diaphragms are smooth. IMPRESSION: Chronic interstitial change. No acute process. Medications Administered Current Inpatient Medications Miscellaneous Information (Consult) 1 ea N/A UD PRN PRN Reason: Consult Stop: 03/25/20 09:18 Code Status & VTE Plan VTE Prophylaxis Plan VTE Prophylaxis will be ordered: Yes (1) Pneumonia Laterality: bilateral Lung location: upper lobe of lung Pneumonia type: due to unspecified organism Qualified Code(s): J18.9 - Pneumonia, unspecified organism
[2020-02-24 12:12] LABS: Cryptococcus neoformans/ga PCR Not Detected (NotDetected); Cytomegalovirus PCR Not Detected (NotDetected); Enterovirus PCR Not Detected (NotDetected); Escherichia coli K1 PCR Not Detected (NotDetected); Haemophilius influenzae PCR Not Detected (NotDetected); Herpes Simplex Virus 1 PCR Not Detected (NotDetected); Herpes Simplex Virus 2 PCR Not Detected (NotDetected); Human Herpes Virus 6 PCR Not Detected (NotDetected); Human Parechovirus PCR Not Detected (NotDetected); Listeria monocytogenes PCR Not Detected (NotDetected); Neisseria meningitidis PCR Not Detected (NotDetected); Streptococcus agalactiae PCR Not Detected (NotDetected); Streptococcus pneumoniae PCR Not Detected (NotDetected); Varicella Zoster Virus PCR Not Detected (NotDetected)
[2020-02-24 12:31] LABS: Cdiff Antigen Positive
[2020-02-24 12:32] LABS: Cdiff Toxin A+B Positive Cdiff Toxin (Negative)
[2020-02-24] MEDS ORDERED: ONDANSETRON INJ 2 MG/ML 2 ML VIAL IV PRN (14:08)
[2020-02-24] MEDS ORDERED: ALBUT/IPRATROP 3MG/0.5MG NEB 3 ML VIAL INH PRN (14:45)
[2020-02-24] MEDS ORDERED: ACETAMINOPHEN 325 MG TAB PO PRN (14:45)
[2020-02-24] MEDS ORDERED: ACETAMINOPHEN W/CODEINE #3 1 TAB PO ONE (14:45)
[2020-02-24] MEDS ORDERED: bisacodyL 10 MG SUPP PR PRN (14:45)
[2020-02-24] MEDS ORDERED: LORATADINE 10 MG TAB PO PRN (14:45)
[2020-02-24] MEDS ORDERED: POLYETHYLENE (MIRALAX) 17 GM PACK PO PRN (14:47)
[2020-02-24] MEDS ORDERED: CEFEPIME CONSULT ACTIVE PRN (15:42)
--- NOTE | 2020-02-24 16:05 | Pharmacy Report ---
Pharmacy Abx Initial Consult - Date of Service February 24, 2020 - Pharmacy Dosing Scope Date of Consult: 02/24/20 Consultation requested by: Dr. Harry Pharmacy is consulted to initiate VANCOMYCIN + CEFEPIME IV dosing therapy, order appropriate labs and adjust drug dose/frequency. - Subjective The patient is a 60 year old F admitted on 02/24/20 11:21. - Objective Height: 6 ft Weight: 74.6 kg Vital Signs (Past 12hrs): Vital Signs Temp Pulse Pulse Resp BP BP BP 02/24/20 12:10 37.5 C 103 H 22 159/74 H 02/24/20 11:30 93 H 20 128/68 02/24/20 10:25 100 H 28 H 151/71 H 02/24/20 10:00 98 H 29 H 122/61 02/24/20 09:37 104 H 19 126/63 02/24/20 09:09 02/24/20 08:54 38.4 C H 106 H 22 126/61 Pulse Ox 02/24/20 12:10 97 02/24/20 11:30 97 02/24/20 10:25 100 02/24/20 10:00 98 02/24/20 09:37 97 02/24/20 09:09 94 02/24/20 08:54 94 Lab Results (24hrs): Laboratory Tests (24 Hours) 02/24/20 02/24/20 02/24/20 08:55 08:55 08:55 WBC 13.21 H Neut # (Auto) 11.99 H Creatinine 0.59 L Est Cr Clr Drug Dosing 117.0 Procalcitonin 1.00 H Micro Results: 02/24/20 10:00 Gram Stain - Final Cerebral Spinal Fluid CSF Culture - Pending 02/24/20 09:20 Aerobic Blood Culture - Pending Blood Anaerobic Blood Culture - Pending 02/24/20 08:55 Aerobic Blood Culture - Pending Blood Anaerobic Blood Culture - Pending - Assessment & Plan Assessment * 60 year old F seen in our ER on 02/06/20 for hip fracture Subsequently transferred to [facility] where she underwent surgery * She was found to have a pneumonia + UTI while at [place] and was started on cefepime + flagyl * Discharged to [facility] on 02/12 where she completed course of abx * Presented to [facility] today for confusion * C.diff +, currently on PO vanc * IV Vancomycin and cefepime started empirically for PNA; ID consulted * Blood and CSF cultures pending Plan Vancomycin IV * Estimated PK Parameters: Vd 0.7 L/kg, Jose 0.083 hr-1, t1/2 8 hr * Loading dose: 1750 mg (23.4 mg/kg) * Maintenance dose: 1000 mg IV (13.4 mg/kg) every 8 hours * Goal trough level for PNA: 15 to 20 mcg/mL * Trough ordered for 02/25/20 @ 1730 Cefepime IV * 2g IV q8h for CrCl > 60 ml/min Pharmacy will continue to follow and will adjust dose/frequency as necessary. Thank you.
[2020-02-24] MEDS: POTASSIUM CHLORIDE 20 MEQ/15 ML UDC PO SCH ×2 (16:07→19:49)
[2020-02-24] MEDS: MAGNESIUM SULFATE / D5W 1 GM/100 ML BAG IV SCH ×4 (16:08→19:50)
[2020-02-24] MEDS: CEFEPIME 2,000 MG in SYRINGE 7.5 ML IV SCH ×2 (16:52→22:43)
[2020-02-24] MEDS: SODIUM CHLORIDE 0.9% 1000ML 1,000 ML IV SCH (17:48)
[2020-02-24] MEDS: VANCOMYCIN HCL 125 MG/2.5ML SOLN PO SCH ×2 (18:44→22:43)
[2020-02-24] MEDS: RASPBERRY SYRUP 5 ML UDP PO SCH ×2 (18:44→22:43)
[2020-02-24] MEDS: VANCOMYCIN HCL 1,000 MG in SODIUM CHLORIDE 0.9% 250 ML IV SCH (18:44)
[2020-02-24] MEDS: METOPROLOL TARTRATE 50 MG TAB PO SCH (19:49)
[2020-02-24] MEDS ORDERED: DOCUSATE SODIUM 100 MG CAP PO SCH (21:00)
[2020-02-24] MEDS: ACETAMINOPHEN 325 MG TAB PO PRN (22:43)
[2020-02-25] MEDS: VANCOMYCIN HCL 1,000 MG in SODIUM CHLORIDE 0.9% 250 ML IV SCH ×2 (01:52→09:26)
[2020-02-25 05:57] LABS: Hematocrit (blood only) 29.6 % (37-47); Hemoglobin 9.1 g/dL (12.0-16.0); Mean Corpuscular Hgb Conc 30.7 g/dL (32-36); Mean Corpuscular Volume 97.7 fL (80-100); Mean Platelet Volume 12.4 fL (7.4-10.4); Platelet Count 98 K/uL (130-400); RDW Coefficient of Variation 19.2 % (11.5-14.5); RDW Standard Deviation 67.9 fL (36.4-46.3); Red Blood Count 3.03 M/uL (4.2-5.4)
[2020-02-25] MEDS: VANCOMYCIN HCL 125 MG/2.5ML SOLN PO SCH ×4 (06:00→23:50)
[2020-02-25] MEDS: RASPBERRY SYRUP 5 ML UDP PO SCH ×4 (06:00→23:50)
[2020-02-25] MEDS: SODIUM CHLORIDE 0.9% 1000ML 1,000 ML IV SCH (06:00)
[2020-02-25 06:27] LABS: BUN Creatinine Ratio 19.2 (10-20); Calcium 7.7 mg/dl (8.5-10.1); Creatinine Clr Calc Pharmacy 159.9 ml/min; Est GFR (African American) 128.1; Est GFR (Non-African American) 110.6; Potassium 2.9 mmol/L (3.5-5.1)
--- NOTE | 2020-02-25 07:34 | XRay Report ---
XR chest 1V portable CLINICAL HISTORY: 60 years-old Female presenting with reassess pneumonia. TECHNIQUE: Portable upright AP view of the chest was obtained. COMPARISON: 02/24/2020. FINDINGS: Atherosclerosis of the aortic arch. Cardiac silhouette enlarged. Pulmonary vascular and interstitial prominence increased from prior. Diffuse added density of the lungs. Diffuse bilateral reticulonodula r opacities increased in prominence. No large effusion or pneumothorax. Osteopenia suspected. Degener ative changes of the spine. External leads project over the upper abdomen. IMPRESSION: 1. Increased prominence of diffuse bilateral reticulonodular lung infiltrates. Superimposed edema or infectious infiltrate may be present on a background of chronic lung disease. 2. Cardiomegaly with slightly worsened volume overload. ACT 112: Negative or not required by law. Electronically signed by: Elias Joshi M.D. 02/25/2020 7:32 AM
[2020-02-25] MEDS ORDERED: POTASSIUM CHLORIDE 40 MEQ in SODIUM CHLORIDE 0.9% 500 ML IV SCH (08:45)
[2020-02-25] MEDS ORDERED: ENOXAPARIN INJ 40 MG/0.4 ML SYR SQ SCH (09:00)
[2020-02-25] MEDS: POTASSIUM CHLORIDE 20 MEQ TABCR PO SCH ×2 (09:25→15:48)
[2020-02-25] MEDS: CEFEPIME 2,000 MG in SYRINGE 7.5 ML IV SCH (09:26)
[2020-02-25] MEDS: ASCORBIC ACID 500 MG TAB PO SCH (09:28)
[2020-02-25] MEDS: CALCIUM 600MG + VIT D 400 IU TAB PO SCH (09:28)
[2020-02-25] MEDS: METOPROLOL TARTRATE 50 MG TAB PO SCH ×2 (09:28→20:58)
[2020-02-25] MEDS: FLUTICASONE PROPIONATE NA SPR 16 GM BTL NAE SCH (09:29)
--- NOTE | 2020-02-25 10:15 | Infectious Disease Consult ---
Date of Consultation February 25, 2020 Assessment & Plan (1) C. difficile diarrhea: agree with po vanco, suspect current clinical status is due to c diff and recent IV abx use at [facility]. no new infiltrate noted, would follow of off systemic abx for now. no evidence for uti, meningitis, csf negative. would concentrate treatment for c diff and monitor response. low COVID risk. History of Present Illness Attending Physician: Yaquelin Harry, pt admitted to hospital with change in mental status at rehab. was seen here on 02/05 after fall, had fracture and was transferred to [facility] for surgical repair. Per H&P she had concern for aspiration pna and was treated with flagyl and cefepime with stop date of 02/19, she was at rehab post prolonged stay at [facility] and was sent to [facility] due to change in mental status, UA negative, culture pending, LP negative, 0 wbc and negative gram stain, culture pending, blood cultures negative. CXR done in ER unchanged from cxr done in ER on 02/05 at time of fall. she is on cefepime and vanco. C diff in ER was positive. she is on po vanco as well. Flu swab negative, viral panel negative, COVID testing pending, no clear risks noted. In ER had one time temp elevation of 38.4, afebrile since admssion. O2 sats high 90's-100 on RA. creat 0.4, procalcitonin 1. Allergies Allergy/AdvReac Type Severity Reaction Status Date / Time Penicillins Allergy Severe ANAPHYLAXIS Verified 02/24/20 09:43 hydrocodone AdvReac Intermediate Nausea Unverified 02/24/20 09:43 [From Lorcet (hydrocodone)] Home Medications Home Medications Medication Instructions Recorded Confirmed Type dextroamphetamine-amphetamine 10 mg PO BID 02/06/20 02/24/20 History acetaminophen [Tylenol] 650 mg PO Q4H PRN 02/24/20 02/24/20 History acetaminophen-codeine 1 - 2 tab PO Q4H PRN 02/24/20 02/24/20 History albuterol sulfate 2 puff INHALATION QID PRN 02/24/20 02/24/20 History ascorbic acid (vitamin C) 500 mg PO DAILY 02/24/20 02/24/20 History bisacodyl 10 mg [place] DAILY PRN 02/24/20 02/24/20 History calcium carbonate-vitamin D3 1 tab PO DAILY 02/24/20 02/24/20 History [Calcium 500 + D] docusate sodium 100 mg PO BID 02/24/20 02/24/20 History enoxaparin 40 mg SUBCUT DAILY 02/24/20 02/24/20 History fluticasone propionate 2 spray INTRANASAL DAILY 02/24/20 02/24/20 History hydrochlorothiazide 25 mg PO DAILY 02/24/20 02/24/20 History ipratropium-albuterol 3 ml INHALATION Q4H PRN 02/24/20 02/24/20 History lisinopril 10 mg PO DAILY 02/24/20 02/24/20 History loratadine 10 mg PO DAILY PRN 02/24/20 02/24/20 History metoprolol tartrate 50 mg PO BID 02/24/20 02/24/20 History multivitamin 1 tab PO DAILY 02/24/20 02/24/20 History olopatadine 1 drp OPB BID 02/24/20 02/24/20 History ondansetron 4 mg PO Q6H PRN 02/24/20 02/24/20 History polyethylene glycol 3350 [Miralax] 17 g PO QDL PRN 02/24/20 02/24/20 History sennosides-docusate sodium 1 tab-cap PO QDL PRN 02/24/20 02/24/20 History [Senokot-S] sodium phosphates 133 ml [place] DAILY PRN 02/24/20 02/24/20 History Patient History Medical History Bipolar disorder Cirrhosis Depression History of CVA (cerebrovascular accident) Schizophrenia Surgical History History of appendectomy History of shoulder surgery History of total hip replacement femur fracture one month later with repair, both in 2007 Status post open reduction and internal fixation (ORIF) of fracture Family History Father Myocardial infarction Mother Colorectal cancer Social History Preferred Language: Guyanese Feels Safe at Home: Yes Smoking Status: Current every day smoker Review of Systems Review of Systems: per h&p Physical Exam Physical Exam: exam not performed by this provider in attempt to preseve PPE Results & Data ([facility]) Vital Signs (Past 12 Hours) Vital Signs Temp Pulse Pulse Resp BP BP Pulse Ox 02/25/20 08:00 36.5 C 92 H 24 122/65 95 02/25/20 03:51 37.0 C 89 20 120/68 96 02/24/20 23:32 37.1 C 87 18 130/72 98 02/24/20 23:18 95 H PG Care Time/CCT Total # of Minutes Spent Total Time Spent with Patient: Total time spent is greater than 50% in coordination of care (as documented) at patient's floor/unit and/or counseling patient: Coding Level of Care Code 78476 Inpt Consult Level 2 Diagnoses C. difficile diarrhea A04.72
--- NOTE | 2020-02-25 11:01 | Electrocardiogram Report ---
Test Reason : Blood Pressure : / mmHG Vent. Rate : 110 BPM Atrial Rate : 110 BPM P-R Int : 146 ms QRS Dur : 090 ms QT Int : 368 ms P-R-T Axes : 015 016 -63 degrees QTc Int : 498 ms Sinus tachycardia Abnormal ECG When compared with ECG of 07-JUL-2007 19:05, Vent. rate has increased BY 52 BPM Nonspecific T wave abnormality, worse in Inferior leads T wave inversion now evident in Anterior leads Confirmed by Gino Diro ([id number]) on 02/25/2020 11:01:17 AM Referred By: [facility] Confirmed By:Gino Dior
--- NOTE | 2020-02-25 14:24 | XRay Report ---
XR KUB/Abdomen 1 view CLINICAL HISTORY: +cdiff, new abd tenderness and distension COMPARISON STUDY: No previous studies for comparison. FINDINGS: There is no pathologic bowel dilatation. There is no conventional radiographic evidence of bowel obstruction. There are postsurgical changes of a bipolar left hip replacement. Is a lumbar levo scoliosis. IMPRESSION: Nonobstructive bowel gas pattern. ACT 112: Negative or not required by law. Electronically signed by: Bob Duque M.D. 02/25/2020 2:23 PM
--- NOTE | 2020-02-25 14:56 | Surgery Consultation ---
Date of Consultation February 25, 2020 Assessment & Plan (1) C. difficile diarrhea: pt is a 60 year-old female who was admitted to hospital for C-diff infection, with abdominal pain, IMP: C-diff infection, stable now, KUB-Nonobstructive bowel gas pattern. lactate acid 1.4 I agree with conservative treatment, no emergent surgery indication now, pt may need CT scan if pt's symptoms are getting worse. other option, transfer to [facility] consult colorectal surgeon if pt is getting worse, D/W hospitalist. will F/U History of Present Illness Attending Physician: Yaquelin Harry DO History of Present Illness Chief Complaint: I have pneumonia Primary Care Provider: Leslye Archuleta The patient is a 60 yo F who was admitted to [facility] for inpatient rehab on 02/13/2020 following discharge from [facility]. She had been admitted there on 02/06/2020 as a transfer from [facility]. She had a mechanical fall at home and was found to have a comminuted left distal shaft fracture and then transferred to [facility] because of significant anemia and thrombocytopenia. On 02/08/2020 she went to the OR for a removal of her deep hardware (from prior hip prosthesis) and an open reduction and internal fixation of her distal left femur fracture. A post-operative fever was persistent and she was found to have aspiration pneumonia and UTI during her admission. She was seen by ID and treated with cefepime and flagyl. These agents were continued for an additional 6 days beyond discharge with the last doses being given at [facility] on 02/20/2020. The patient was doing well clinically at [facility] with progress notes reflecting stable vital signs. She had borderline low blood pressure in the high 90s systolic and no evidence of fever for approximately 1 week and was participating in exercises. reports that she was self-treating her diarrhea at some point with OTC anti-diarrheals, but cannot pinpoint when this was. She had a chest x-ray performed on 02/15 that did not reveal evidence of pneumonia. Then she underwent another chest x-ray at [facility] on 02/22 because of a fever. This chest x-ray revealed new patchy infiltrates in bilateral upper lungs and right pericardiac region likely of infectious etiology, new since the prior examination on 02/15. She has an indwelling Bautista in her urine did not show obvious signs of infection on the urine studies performed at [facility]. Per her , the Bautista was placed at [facility] for a failed trial of void. She was found to be altered this morning (02/23) and was sent to the ER for further work-up. In the ER the patient's chest x-ray did not show any acute process. An EKG revealed sinus tachycardia at a rate of 110. With a history of cirrhosis and ammonia level was pulled and slightly elevated at 51. White blood cell count was 13. Hemoglobin was 9.2. Lactic acid was negative. Potassium was 3 and replacement was given. Troponin was elevated at 0.262. The patient denied any chest pain. A flu swab was negative. A lumbar puncture was performed that did not show evidence of meningitis. Her urinalysis did not show infection. C. difficile testing was positive. She was empirically treated with IV fluids as well as IV vancomycin and IV Levaquin. She was also given oral vancomycin. She was also given some Tylenol for fever. She was admitted to the hospital service for further work-up and management. I ( Celestine Martinez MD ) got a call for consult C-diff with abdominal pain, I reviewed pt's H/P, labs, KUB, with pt and nurse, pt is still have some mild abdominal pain, no fever, yellow liquid stool, no bloody stool, no nausea, no vomiting, Allergies Allergy/AdvReac Type Severity Reaction Status Date / Time Penicillins Allergy Severe ANAPHYLAXIS Verified 02/24/20 09:43 hydrocodone AdvReac Intermediate Nausea Unverified 02/24/20 09:43 [From Lorcet (hydrocodone)] Home Medications Home Medications Medication Instructions Recorded Confirmed Type dextroamphetamine-amphetamine 10 mg PO BID 02/06/20 02/24/20 History acetaminophen [Tylenol] 650 mg PO Q4H PRN 02/24/20 02/24/20 History acetaminophen-codeine 1 - 2 tab PO Q4H PRN 02/24/20 02/24/20 History albuterol sulfate 2 puff INHALATION QID PRN 02/24/20 02/24/20 History ascorbic acid (vitamin C) 500 mg PO DAILY 02/24/20 02/24/20 History bisacodyl 10 mg NJ DAILY PRN 02/24/20 02/24/20 History calcium carbonate-vitamin D3 1 tab PO DAILY 02/24/20 02/24/20 History [Calcium 500 + D] docusate sodium 100 mg PO BID 02/24/20 02/24/20 History enoxaparin 40 mg SUBCUT DAILY 02/24/20 02/24/20 History fluticasone propionate 2 spray INTRANASAL DAILY 02/24/20 02/24/20 History hydrochlorothiazide 25 mg PO DAILY 02/24/20 02/24/20 History ipratropium-albuterol 3 ml INHALATION Q4H PRN 02/24/20 02/24/20 History lisinopril 10 mg PO DAILY 02/24/20 02/24/20 History loratadine 10 mg PO DAILY PRN 02/24/20 02/24/20 History metoprolol tartrate 50 mg PO BID 02/24/20 02/24/20 History multivitamin 1 tab PO DAILY 02/24/20 02/24/20 History olopatadine 1 drp OPB BID 02/24/20 02/24/20 History ondansetron 4 mg PO Q6H PRN 02/24/20 02/24/20 History polyethylene glycol 3350 [Miralax] 17 g PO QDL PRN 02/24/20 02/24/20 History sennosides-docusate sodium 1 tab-cap PO QDL PRN 02/24/20 02/24/20 History [Senokot-S] sodium phosphates 133 ml NJ DAILY PRN 02/24/20 02/24/20 History Past Med/Surg History Medical History (Updated 02/24/20 @ 18:25 by Yaquelin Harry DO) Bipolar disorder Cirrhosis Depression History of CVA (cerebrovascular accident) Schizophrenia Surgical History (Updated 02/24/20 @ 18:12 by Yaquelin Harry DO) History of appendectomy History of shoulder surgery History of total hip replacement femur fracture one month later with repair, both in 2007 Status post open reduction and internal fixation (ORIF) of fracture Family History (Updated 02/24/20 @ 18:13 by Yaquelin Harry DO) Father Myocardial infarction Mother Colorectal cancer Social History Preferred Language: Tajik Feels Safe at Home: Yes Smoking Status: Current every day smoker Review of Systems Review of Systems: All systems reviewed & are unremarkable except as noted in Subjective (limited ROS secondary to fatigue and limited hearing ability. said she reads lips;we are wearing masks for rule out COVID) Allergies Allergy/AdvReac Type Severity Reaction Status Date / Time Penicillins Allergy Severe ANAPHYLAXIS Verified 02/24/20 09:43 hydrocodone AdvReac Intermediate Nausea Unverified 02/24/20 09:43 [From Lorcet (hydrocodone)] Home Medications Home Medications Medication Instructions Recorded Confirmed Type dextroamphetamine-amphetamine 10 mg PO BID 02/06/20 02/24/20 History acetaminophen [Tylenol] 650 mg PO Q4H PRN 02/24/20 02/24/20 History acetaminophen-codeine 1 - 2 tab PO Q4H PRN 02/24/20 02/24/20 History albuterol sulfate 2 puff INHALATION QID PRN 02/24/20 02/24/20 History ascorbic acid (vitamin C) 500 mg PO DAILY 02/24/20 02/24/20 History bisacodyl 10 mg NJ DAILY PRN 02/24/20 02/24/20 History calcium carbonate-vitamin D3 1 tab PO DAILY 02/24/20 02/24/20 History [Calcium 500 + D] docusate sodium 100 mg PO BID 02/24/20 02/24/20 History enoxaparin 40 mg SUBCUT DAILY 02/24/20 02/24/20 History fluticasone propionate 2 spray INTRANASAL DAILY 02/24/20 02/24/20 History hydrochlorothiazide 25 mg PO DAILY 02/24/20 02/24/20 History ipratropium-albuterol 3 ml INHALATION Q4H PRN 02/24/20 02/24/20 History lisinopril 10 mg PO DAILY 02/24/20 02/24/20 History loratadine 10 mg PO DAILY PRN 02/24/20 02/24/20 History metoprolol tartrate 50 mg PO BID 02/24/20 02/24/20 History multivitamin 1 tab PO DAILY 02/24/20 02/24/20 History olopatadine 1 drp OPB BID 02/24/20 02/24/20 History ondansetron 4 mg PO Q6H PRN 02/24/20 02/24/20 History polyethylene glycol 3350 [Miralax] 17 g PO QDL PRN 02/24/20 02/24/20 History sennosides-docusate sodium 1 tab-cap PO QDL PRN 02/24/20 02/24/20 History [Senokot-S] sodium phosphates 133 ml NJ DAILY PRN 02/24/20 02/24/20 History Patient History Medical History Bipolar disorder Cirrhosis Depression History of CVA (cerebrovascular accident) Schizophrenia Surgical History History of appendectomy History of shoulder surgery History of total hip replacement femur fracture one month later with repair, both in 2007 Status post open reduction and internal fixation (ORIF) of fracture Family History Father Myocardial infarction Mother Colorectal cancer Social History Preferred Language: Tajik Communication Ability: Impaired marital status: Current Living Situation: Spouse Other Information That Helps Us Care for You: No Feels Safe at Home: Yes Safety Concerns: Feels Safe At This Time Smoking Status: Former smoker Tobacco Type: cigarettes ; Do You Dip or Chew Tobacco: No ; Second Hand Exposure: No ; Tobacco Cessation Education Requested by Patient: No Hx Alcohol Use: No Hx Substance Use: No Physical Exam Constitutional: WD/WN, vitals as above well developed and well nourished Eyes: PERRL, conjunctivae normal, anicteric sclerae ENMT: Ears: + hearing impairment Neck: trachea midline, no thyromegaly Respiratory: normal respiratory effort Gastrointestinal (Abdomen): Percussion/Palpation: abdomen soft mild tenderness at lower abdomen, no distend, no rebound pain, rectal tube working well, yellow liquid stool, no bloody stool, Musculoskeletal: left hip surgery, Skin: no rashes, warm and dry Neurologic: patellar DTR's 2+ bilat, sensation intact Psychiatric: Orientation: alert and oriented x 3 Results & Data Vital Signs (Past 12 Hours) Vital Signs Temp Pulse Pulse Resp BP BP Pulse Ox 02/25/20 11:56 36.5 C 66 16 111/62 92 02/25/20 09:00 80 02/25/20 08:00 36.5 C 92 H 24 122/65 95 02/25/20 03:51 37.0 C 89 20 120/68 96 Laboratory Results Abnormal lab results 02/24/20 02/24/20 02/25/20 Range/Units 14:41 20:01 05:36 WBC (4.8-10.8) K/uL RBC (4.2-5.4) M/uL Hgb (12.0-16.0) g/dL Hct (37-47) % MCHC (32-36) g/dL RDW Std Deviation (36.4-46.3) fL RDW Coeff of Dewayne (11.5-14.5) % Plt Count (130-400) K/uL MPV (7.4-10.4) fL Potassium 2.9 L (3.5-5.1) mmol/L Chloride 110 H (98-107) mmol/L Carbon Dioxide 20 L (21-32) mmol/L Creatinine 0.43 L (0.6-1.2) mg/dl Glucose 111 H (70-99) mg/dl Calcium 7.7 L (8.5-10.1) mg/dl Troponin I 0.371 H* 0.349 H* (0-0.045) ng/ml 02/25/20 Range/Units 05:36 WBC 13.30 H (4.8-10.8) K/uL RBC 3.03 L (4.2-5.4) M/uL Hgb 9.1 L (12.0-16.0) g/dL Hct 29.6 L (37-47) % MCHC 30.7 L (32-36) g/dL RDW Std Deviation 67.9 H (36.4-46.3) fL RDW Coeff of Dewayne 19.2 H (11.5-14.5) % Plt Count 98 L (130-400) K/uL MPV 12.4 H (7.4-10.4) fL Potassium (3.5-5.1) mmol/L Chloride (98-107) mmol/L Carbon Dioxide (21-32) mmol/L Creatinine (0.6-1.2) mg/dl Glucose (70-99) mg/dl Calcium (8.5-10.1) mg/dl Troponin I (0-0.045) ng/ml Diagnostic Findings XR KUB/Abdomen 1 view CLINICAL HISTORY: +cdiff, new abd tenderness and distension COMPARISON STUDY: No previous studies for comparison. FINDINGS: There is no pathologic bowel dilatation. There is no conventional radiographic evidence of bowel obstruction. There are postsurgical changes of a bipolar left hip replacement. Is a lumbar levoscoliosis. IMPRESSION: Nonobstructive bowel gas pattern.
[2020-02-25] MEDS ORDERED: FUROSEMIDE 10 MG in SYRINGE 0 ML IV ONE (15:15)
--- NOTE | 2020-02-25 15:20 | Hospitalist Progress Note ---
Date of Service February 25, 2020 Assessment & Plan (1) C. difficile diarrhea: and patient report that diarrhea was ongoing at rehab for a few days prior to fever and this admission. She appears clinically worse today. Leukocytosis is unchanged. Lactate is 1.4. Fever is absent today. No evidence of sepsis. KUB reveals nonobstructive bowel gas pattern. Surgery consulted to examine patient. Would like to continue holding her NPO for one more day for conservative monitoring. Cont Vanc PO (began 02/23). (2) Hypokalemia due to excessive gastrointestinal loss of potassium: 2/2 diarrhea. Cont Vanco PO and supportive care for diarrhea including (3) Metabolic acidosis with normal anion gap and bicarbonate losses: 2/2 excessive diarrhea. Cont Vanc PO and supportive care. Monitor BMP in am. (4) Acute metabolic encephalopathy: resolved. (5) Pneumonia: There was a questions of pneumonia with the intermittent infiltrates seen on recent chest xrays. ID was consulted and recommends stopping the IV abx at this time. The fact is that she may get worse from a c-diff standpoint on the additional antibiotics to treat pneumonia, and she hasn't had any real respiratory symptoms including no cough or shortness of breath. All other lab abnormalities can be explained by the c-diff infection, which is worse. Also, she doesn't appear clinically better which she should to some extent today if there was an improving bacterial pneumonia. Additionally, I auscultated rales on the right posterior lung henry today, however, that may just be the excessive pulmonary congestion seen on the CXR earlier this morning from the fluid resuscitation efforts yesterday. Plan to stop the IV Vanc and IV Cefepime now and cont with the vanc PO only. Will given small dose of Lasix to this Lasix-naive patient. I am operating under the assumption that a pneumonia is not present moving forward and will reassess as the clinical picture changes. (6) Demand ischemia: Trop trend without accelerated rise overnight. Echo today without evidence of acute wall motion abnormality. Patient is free of chest pain. Likely demand ischemia 2/2 sepsis. (7) Anemia: Likely multifactorial including ? GI loss, phlebotomy, recent surgery, recent prolonged hospitalization and chronic comorbidities. No indication for blood transfusion at this time. (8) Status post open reduction and internal fixation (ORIF) of fracture: Some pain present, T#3 PRN which she states is working. PT/OT when dignishield is able to be removed and stool output slows down. Will need to remove stitches soon. Luis Eduardo was a scheduled Ortho appointment. Will consider removal around that time. She is toe touch weight bearing on the left and brace remains in place. When she is more stable will transition her to the surgical floor. (9) Acute urinary retention: Failed a TOV at [facility]. Will plan another TOV here once she improves clinically and stool output slows down. (10) Cirrhosis: appears compensated. (11) Bipolar disorder: Adderall on hold. (12) Depression: Not medically treated, and appears stable. (13) Schizophrenia: appears stable. (14) HTN (hypertension): Question this diagnosis as prior records didn't seem to indicate an issue with blood pressure. She was discharged from [facility] on HCTZ and lisinopril, but uncertain if she was taking this at home or not. BP has been borderline low at rehab and both agents are being held in the setting of sepsis and now worsening infection. Cont to monitor closely. IF BP remains at goal would consider discontinuing these at discharge. (15) Hard of hearing: encourage to wear hearing aids as much as possible to avoid hospital induced delirium. (16) DVT prophylaxis: Lovenox-on hold as clinically worsened in case of need for procedure. Cont SCD to right leg. DNR as confirmed on reports from rehab facility and by her medical alert band on her person. Nurse also discussed code status with her when she was more alert and she confirmed she was a DNR. Dispo-airborne precautions pending COVID test results, cont PCU monitoring. Yaquelin Harry DO [facility] Hospitalist Admission and Anticipated Discharge Date Admission Date: February 24, 2020 Anticipated date of discharge: 02/28/20 Subjective Mrs. Dorantes is looking persistently diaphoretic today and is somnolent with malaise. WBC has not improved overnight She denies cough or dyspnea despite congestion seen on xray this morning. Fever has subsided overnight She declines any food saying she feels she would throw it up, but states she is not nautious. She is tolerating liquids. Abdomen was more distended on exam with new severe pain in LLQ and RLQ with guarding KUB performed revealing a nonobstructive bowel gas pattern and lactate was 1.4 She appears resuscitated from a sepsis standpoint but still appears ill. Reports pain above left knee similar to her known post-op pain, and asked me not to remove the left leg brace. She feels this is manageable with the T3 she is receiving. Review of Systems Review of Systems: All systems reviewed & are unremarkable except as noted in Subjective Physical Exam Physical Exam: CONSTITUTIONAL: WNWD, vitals as above, ill appearing and somnolent. EYES: PERRL, normal conjunctivae, no scleral icterus ENT: external ear and nose normal, oropharynx clear, MMM NECK: trachea midline, no lymphadenopathy RESPIRATORY: rales throughout on right side. No wheezes and normal respiratory effort. CARDIOVASCULAR: regular rate and rhythm, S1 and 2 heard without murmurs, gallops or rubs, no JVD, no peripheral edema GASTROINTESTINAL: slightly distended compared to yesterday, pain to palpation in RLQ and LLQ with guarding. MUSCULOSKELETAL: moving upper extremities well but limited movement or exam of lower extremity strength in light of post op pain in her left leg. She can roll onto her side but cannot sit up SKIN: warm and diaphoretic, upper left leg surgical wound with stitches in place. No erythema or drainage. Covered with gauze. Left leg brace in place. NEUROLOGIC: No facial palsy. CN 2-12 grossly intact, no sensory deficit, fatigued and somnolent, normal speech, no tremor, no gross focal deficits. PSYCHIATRIC: arousable and able to orient, somnolent, answering questions appropriately and able to follow instruction. Results & Data Results & Data ([facility]) Vital Signs (Past 12 Hours) Vital Signs Temp Pulse Pulse Resp BP BP Pulse Ox 02/25/20 11:56 36.5 C 66 16 111/62 92 02/25/20 09:00 80 02/25/20 08:00 36.5 C 92 H 24 122/65 95 02/25/20 03:51 37.0 C 89 20 120/68 96 Laboratory Results Short CBC 02/25/20 Range/Units 05:36 WBC 13.30 H (4.8-10.8) K/uL Hgb 9.1 L (12.0-16.0) g/dL Hct 29.6 L (37-47) % Plt Count 98 L (130-400) K/uL BMP 02/25/20 05:36 Sodium 138 Potassium 2.9 L Chloride 110 H Carbon Dioxide 20 L BUN 8 Creatinine 0.43 L Glucose 111 H Calcium 7.7 L Cardiac Enzymes 02/24/20 02/24/20 Range/Units 14:41 20:01 Troponin I 0.371 H* 0.349 H* (0-0.045) ng/ml Medications Administered Current Inpatient Medications Acetaminophen (Tylenol) 650 mg PO Q4H PRN PRN Reason: Pain or Fever Stop: 03/25/20 14:07 Last Admin: 02/24/20 22:43 Dose: 650 mg Documented by: Acetaminophen/Codeine Phosphate (Tylenol W/Codeine #3) 1 - 2 tab PO Q4H PRN PRN Reason: Pain Stop: 03/25/20 14:44 Albuterol (Duoneb) 3 ml INH Q4H PRN PRN Reason: Shortness Of Breath Stop: 03/25/20 14:44 Ascorbic Acid (Vitamin C) 500 mg PO DAILY [facility] Stop: 03/26/20 08:59 Last Admin: 02/25/20 09:28 Dose: 500 mg Documented by: Bisacodyl (Dulcolax) 10 mg KY DAILY PRN PRN Reason: Constipation Stop: 03/25/20 14:44 Enoxaparin Sodium (Lovenox) 40 mg SQ DAILY [facility] Stop: 03/26/20 08:59 Last Admin: 02/25/20 09:27 Dose: 40 mg Documented by: Fluticasone Propionate (Flonase) 2 sprays ALISTAIR DAILY [facility] Stop: 03/26/20 08:59 Last Admin: 02/25/20 09:29 Dose: 2 sprays Documented by: Loratadine (Claritin) 10 mg PO DAILY PRN PRN Reason: Allergy Symptoms Stop: 03/25/20 14:44 Metoprolol Tartrate (Lopressor) 50 mg PO BID [facility] Stop: 03/25/20 20:59 Last Admin: 02/25/20 09:28 Dose: 50 mg Documented by: Multivitamins/Minerals (Caltrate Plus) 1 tab PO DAILY [facility] Stop: 03/26/20 08:59 Last Admin: 02/25/20 09:28 Dose: 1 tab Documented by: Ondansetron HCl (Zofran) 4 mg IV Q6H PRN PRN Reason: Nausea Stop: 03/25/20 14:07 Raspberry (Raspberry) 5 ml PO Q6 MARIA E Stop: 03/05/20 17:59 Last Admin: 02/25/20 14:48 Dose: Not Given Documented by: Vancomycin HCl (Vancomycin Hcl) 125 mg PO Q6 MARIA E Stop: 03/05/20 17:59 Last Admin: 02/25/20 14:48 Dose: Not Given Documented by: (1) Pneumonia Laterality: bilateral Lung location: upper lobe of lung Pneumonia type: due to unspecified organism Qualified Code(s): J18.9 - Pneumonia, unspecified organism
[2020-02-25] MEDS ORDERED: VANCOMYCIN TROUGH ONE (17:30)
[2020-02-26] MEDS: RASPBERRY SYRUP 5 ML UDP PO SCH ×4 (05:28→23:53)
[2020-02-26] MEDS: VANCOMYCIN HCL 125 MG/2.5ML SOLN PO SCH ×4 (05:28→23:53)
[2020-02-26 06:11] LABS: Hematocrit (blood only) 29.6 % (37-47); Mean Corpuscular Hemoglobin 30.2 pg (25-34); Mean Corpuscular Hgb Conc 30.4 g/dL (32-36); Mean Corpuscular Volume 99.3 fL (80-100); Mean Platelet Volume 12.7 fL (7.4-10.4); Platelet Count 97 K/uL (130-400); RDW Standard Deviation 68.9 fL (36.4-46.3); Red Blood Count 2.98 M/uL (4.2-5.4); White Blood Count 8.83 K/uL (4.8-10.8)
[2020-02-26 06:22] LABS: Basophils # (auto) 0.03 K/uL (0-0.2); Basophils % (auto) 0.3 %; Dohle Bodies 1+; Eosinophils # (auto) 0.52 K/uL (0-0.5); Eosinophils % (auto) 5.9 %; Immature Granulocytes # (auto) 0.03 K/uL (0.00-0.02); Immature Granulocytes % (auto) 0.3 %; Lymphocytes # (auto) 0.52 K/uL (1.2-3.4); Lymphocytes % (auto) 5.9 %; Monocytes # (auto) 0.58 K/uL (0.11-0.59); Monocytes % (auto) 6.6 %; Neutrophils # (auto) 7.15 K/uL (1.4-6.5); Ovalocytes 1+; Toxic Vacuolation 1+
[2020-02-26 06:34] LABS: BUN Creatinine Ratio 22.7 (10-20); Calcium 8.1 mg/dl (8.5-10.1); Creatinine Clr Calc Pharmacy 172.6 ml/min; Est GFR (African American) 131.2; Est GFR (Non-African American) 113.2; Magnesium 1.9 mg/dl (1.8-2.4); Potassium 3.3 mmol/L (3.5-5.1)
[2020-02-26] MEDS: FLUTICASONE PROPIONATE NA SPR 16 GM BTL NAE SCH (07:53)
[2020-02-26] MEDS: ASCORBIC ACID 500 MG TAB PO SCH (07:54)
[2020-02-26] MEDS: CALCIUM 600MG + VIT D 400 IU TAB PO SCH (07:54)
[2020-02-26] MEDS: METOPROLOL TARTRATE 50 MG TAB PO SCH ×2 (07:54→20:26)
--- NOTE | 2020-02-26 10:06 | Infectious Disease Progress Nt ---
Date of Service February 26, 2020 Assessment & Plan (1) C. difficile diarrhea: agree with po vanco, suspect current clinical status is due to c diff and recent IV abx use at [facility]. no new infiltrate noted, would continue to follow off of systemic abx. no evidence for uti, meningitis, csf negative. would concentrate treatment for c diff and monitor response. low COVID risk. Admission and Anticipated Discharge Date Admission Date: February 24, 2020 Anticipated date of discharge: 02/28/20 Subjective pt remains afebrile. wbc improved to 8 today. s/p surgery eval yesterday due to worsening c diff, KUB done, no acute findings, no surgical plan at this time. remains on po vanco, tolerating well. IV abx stopped yesterday. remains afebrile, clinially stable. 98% on 2L NC, some pulm congestion noted on cxr yesterday. blood, urine, csf cultures all negative to date. Results & Data ([facility]) Vital Signs (Past 12 Hours) Vital Signs Temp Pulse Pulse Resp BP BP Pulse Ox 02/26/20 07:52 36.4 C L 72 12 109/60 98 02/26/20 07:21 36.4 C L 69 18 109/65 97 02/26/20 04:07 36.4 C L 66 18 111/63 99 02/26/20 00:23 62 02/25/20 23:50 36.6 C 65 18 124/66 95 Laboratory Results Microbiology 02/24/20 10:00 Cerebral Spinal Fluid Gram Stain - Final 02/24/20 10:00 Cerebral Spinal Fluid CSF Culture - Final No growth 02/24/20 09:20 Blood Aerobic Blood Culture - Preliminary No growth in Aerobic bottle after 24 hours. 02/24/20 09:20 Blood Anaerobic Blood Culture - Preliminary No growth in Anaerobic bottle after 24 hours. 02/24/20 08:55 Blood Aerobic Blood Culture - Preliminary No growth in Aerobic bottle after 24 hours. 02/24/20 08:55 Blood Anaerobic Blood Culture - Preliminary No growth in Anaerobic bottle after 24 hours. PG Care Time/CCT Total # of Minutes Spent Total Time Spent with Patient: Total time spent is greater than 50% in coordination of care (as documented) at patient's floor/unit and/or counseling patient: Coding Level of Care Code 36095 Subseq Hosp Care Lvl 1 Diagnoses C. difficile diarrhea A04.72
--- NOTE | 2020-02-26 11:12 | Surgery Progress Note ---
Date of Service pt is doing better, less abdominal pain, she tolerated diet, no nausea, no vomiting, no fever, no SOB. February 26, 2020 Assessment & Plan (1) C. difficile diarrhea: pt is a 60 year-old female who was admitted to hospital for C-diff infection, with abdominal pain, IMP: C-diff infection, stable now, KUB-Nonobstructive bowel gas pattern. lactate acid 1.4 I agree with conservative treatment, no emergent surgery indication now, pt may need CT scan if pt's symptoms are getting worse. other option, transfer to [facility] consult colorectal surgeon if pt is getting worse, D/W hospitalist. will F/U 02/26/2020 11:11AM doing better, less abdominal pain, no bloody stool, no surgical indication sign off today, please call us with any questions or concerns, thanks, Subjective pt remains afebrile. wbc improved to 8 today. s/p surgery eval yesterday due to worsening c diff, KUB done, no acute findings, no surgical plan at this time. remains on po vanco, tolerating well. IV abx stopped yesterday. remains afebrile, clinially stable. 98% on 2L NC, some pulm congestion noted on cxr yesterday. blood, urine, csf cultures all negative to date. Physical Exam Constitutional: WD/WN, vitals as above well developed and well nourished Eyes: PERRL, conjunctivae normal, anicteric sclerae ENMT: Ears: + hearing impairment Neck: trachea midline, no thyromegaly Respiratory: normal respiratory effort Gastrointestinal (Abdomen): Percussion/Palpation: abdomen soft no distend, mild tenderness, no rebound pain, BS +, rectal tube- yellow stool, no bloody stool, Skin: no rashes, warm and dry Neurologic: patellar DTR's 2+ bilat, sensation intact Psychiatric: Orientation: alert and oriented x 3 Results & Data Vital Signs (Past 12 Hours) Vital Signs Temp Pulse Pulse Resp BP BP Pulse Ox 02/26/20 09:00 62 02/26/20 07:52 36.4 C L 72 12 109/60 98 02/26/20 07:21 36.4 C L 69 18 109/65 97 02/26/20 04:07 36.4 C L 66 18 111/63 99 02/26/20 00:23 62 03/30/20 23:50 36.6 C 65 18 124/66 95
--- NOTE | 2020-02-26 13:05 | Hospitalist Progress Note ---
Date of Service February 26, 2020 Assessment & Plan (1) C. difficile diarrhea: and patient report that diarrhea was ongoing at rehab for a few days prior to fever and this admission. She is clinically improved today and leukocytosis has resolved. Fever absent and no evidence of sepsis. Cont Vanc PO (began 02/23). (2) Hypokalemia due to excessive gastrointestinal loss of potassium: 2/2 diarrhea. Cont Vanco PO and replace/repeat in am. (3) Metabolic acidosis with normal anion gap and bicarbonate losses: 2/2 excessive diarrhea. Cont Vanc PO and supportive care. Monitor BMP in am. (4) Demand ischemia: Trop trend without accelerated rise overnight. Echo without evidence of acute wall motion abnormality. Patient is free of chest pain. Likely demand ischemia 2/2 sepsis. No further workup at this time. (5) Anemia: Likely multifactorial including ? GI loss (occcult, no GIB suspected), phlebotomy, recent surgery, recent prolonged hospitalization and chronic comorbidities. No indication for blood transfusion at this time. (6) Status post open reduction and internal fixation (ORIF) of fracture: Some pain present, T#3 PRN which she states is working. PT/OT when dignishield is able to be removed and stool output slows down. Will need to remove stitches soon. Rockyobed was a scheduled Ortho appointment. Will consider removal around that time. She is toe touch weight bearing on the left and brace remains in place. When she is more stable will transition her to the surgical floor. (7) Acute urinary retention: Failed a TOV at [facility]. Will plan another TOV here once she improves clinically and stool output slows down. (8) Cirrhosis: appears compensated. (9) Bipolar disorder: Adderall on hold. (10) Schizophrenia: appears stable. (11) HTN (hypertension): Question this diagnosis as prior records didn't seem to indicate an issue with blood pressure. She was discharged from [facility] on HCTZ and lisinopril, but uncertain if she was taking this at home or not. BP has been borderline low at rehab and both agents are being held in the setting of sepsis and now worsening infection. Cont to monitor closely. BP remains low, consider discontinuing these at discharge. (12) Hard of hearing: encourage to wear hearing aids as much as possible to avoid hospital induced delirium. (13) Thrombocytopenia: chronic 2/2 liver disease. (14) DVT prophylaxis: Lovenox-resumed. DNR as confirmed on reports from rehab facility and by her medical alert band on her person. Nurse also discussed code status with her when she was more alert and she confirmed she was a DNR. Dispo-airborne precautions pending COVID test results, cont PCU monitoring. Yaquelin Harry DO [facility] Hospitalist Admission and Anticipated Discharge Date Admission Date: February 24, 2020 Anticipated date of discharge: 02/28/20 Subjective Clinically improved in the last 24 hours dramatically Denies abdominal tenderness but does describe gas and states "I feel like my colon is going to explode" Abdominal exam is improved. Leukocytosis is resolved and patient remains afebrile rectal tube in place for increased output overnight and to keep lateral thigh wound clean Bautista in place for same reasons Denies issues with food Reports persistent post op pain that is improved and manageable with T3 if needed Pt is [place] and even with her hearing aids, communication was difficult I did call her on the phone in the room to speak outside of airborne precautions, however, she still has a hard time hearing states she is a lip reader. Review of Systems Review of Systems: All systems reviewed & are unremarkable except as noted in Subjective Physical Exam Physical Exam: CONSTITUTIONAL: WNWD, vitals as above, NAD, greatly improved overall EYES: normal conjunctivae, no scleral icterus ENT: external ear and nose normal, oropharynx clear, MMM NECK: trachea midline, no lymphadenopathy RESPIRATORY: Clear lungs to auscultation bilaterally. No wheezes and normal respiratory effort. CARDIOVASCULAR: regular rate and rhythm, S1 and 2 heard without murmurs, gallops or rubs, no JVD, 1+ pitting edema bilaterally GASTROINTESTINAL: distension improved from yesterday, generalized discomfort when palpating, however, no longer has focal pain or guarding. MUSCULOSKELETAL: moving upper extremities well but limited movement or exam of lower extremity strength in light of post op pain in her left leg. She can roll onto her side but cannot sit up without assistance SKIN: warm and dry, upper left leg surgical wound with stitches in place. No erythema or drainage. Covered with gauze. Left leg brace in place. NEUROLOGIC: No facial palsy. CN 2-12 grossly intact, no sensory deficit, normal speech, no tremor, no gross focal deficits. PSYCHIATRIC: [place], answering questions appropriately and able to follow instruction. Results & Data Results & Data ([facility]) Vital Signs (Past 12 Hours) Vital Signs Temp Pulse Pulse Resp BP BP Pulse Ox 02/26/20 11:12 36.9 C 58 L 18 104/56 L 94 02/26/20 09:00 62 02/26/20 07:52 36.4 C L 72 12 109/60 98 02/26/20 07:21 36.4 C L 69 18 109/65 97 02/26/20 04:07 36.4 C L 66 18 111/63 99 Laboratory Results Short CBC 02/26/20 Range/Units 05:23 WBC 8.83 (4.8-10.8) K/uL Hgb 9.0 L (12.0-16.0) g/dL Hct 29.6 L (37-47) % Plt Count 97 L (130-400) K/uL BMP 02/26/20 05:23 Sodium 138 Potassium 3.3 L Chloride 111 H Carbon Dioxide 22 BUN 9 Creatinine 0.40 L Glucose 90 Calcium 8.1 L
[2020-02-26] MEDS ORDERED: POTASSIUM CHLORIDE 20 MEQ TABCR PO ONE (18:00)
[2020-02-26] MEDS: ENOXAPARIN INJ 40 MG/0.4 ML SYR SQ SCH (20:26)
[2020-02-27] MEDS: VANCOMYCIN HCL 125 MG/2.5ML SOLN PO SCH ×4 (05:44→23:35)
[2020-02-27] MEDS: RASPBERRY SYRUP 5 ML UDP PO SCH ×4 (05:44→23:35)
[2020-02-27 06:15] LABS: Hematocrit (blood only) 30.1 % (37-47); Hemoglobin 9.2 g/dL (12.0-16.0); Mean Corpuscular Hemoglobin 29.8 pg (25-34); Mean Corpuscular Hgb Conc 30.6 g/dL (32-36); Mean Corpuscular Volume 97.4 fL (80-100); Platelet Count 100 K/uL (130-400); RDW Coefficient of Variation 18.2 % (11.5-14.5); RDW Standard Deviation 65.2 fL (36.4-46.3); Red Blood Count 3.09 M/uL (4.2-5.4)
[2020-02-27 06:37] LABS: BUN Creatinine Ratio 15.4 (10-20); Calcium 7.7 mg/dl (8.5-10.1); Creatinine Clr Calc Pharmacy 123.3 ml/min; Est GFR (African American) 117.5; Est GFR (Non-African American) 101.3; Potassium 3.3 mmol/L (3.5-5.1)
[2020-02-27] MEDS: FLUTICASONE PROPIONATE NA SPR 16 GM BTL NAE SCH (08:18)
[2020-02-27] MEDS: CALCIUM 600MG + VIT D 400 IU TAB PO SCH (08:20)
[2020-02-27] MEDS: ASCORBIC ACID 500 MG TAB PO SCH (08:20)
[2020-02-27] MEDS: METOPROLOL TARTRATE 50 MG TAB PO SCH ×2 (08:20→21:38)
--- NOTE | 2020-02-27 09:29 | Infectious Disease Progress Nt ---
Date of Service February 27, 2020 Assessment & Plan (1) C. difficile diarrhea: agree with po vanco, suspect current clinical status is due to c diff and recent IV abx use at [facility]. no new infiltrate noted, would continue to follow off of systemic abx. no evidence for uti, meningitis, csf negative. would concentrate treatment for c diff and monitor response. low COVID risk. would suggest 14 days po vanco, 125mg QId for C. diff infection. Ok for d/c from ID standpoint, should maintain home isolation pending COVID results, although low risk. Admission and Anticipated Discharge Date Admission Date: February 24, 2020 Anticipated date of discharge: 02/28/20 Subjective pt remains afebrile. on po vanco. tolerating well. blood cultures negative, csf cultures negative and final. wbc improved to 8, creat 0.5, nursing notes reviewed. pt eager for d/c to home. Results & Data ([facility]) Vital Signs (Past 12 Hours) Vital Signs Temp Pulse Pulse Resp BP Pulse Ox 02/27/20 08:16 36.6 C 72 16 119/64 95 02/27/20 05:43 36.6 C 73 18 113/63 91 02/27/20 02:24 36.8 C 65 18 112/70 93 02/26/20 23:53 36.8 C 67 18 98/55 L 91 02/26/20 23:26 67 Laboratory Results Microbiology 02/24/20 09:20 Blood Aerobic Blood Culture - Preliminary No growth in Aerobic bottle after 48 hours. 02/24/20 09:20 Blood Anaerobic Blood Culture - Preliminary No growth in Anaerobic bottle after 48 hours. 02/24/20 08:55 Blood Aerobic Blood Culture - Preliminary No growth in Aerobic bottle after 48 hours. 02/24/20 08:55 Blood Anaerobic Blood Culture - Preliminary No growth in Anaerobic bottle after 48 hours. 02/24/20 10:00 Cerebral Spinal Fluid Gram Stain - Final 02/24/20 10:00 Cerebral Spinal Fluid CSF Culture - Final No growth PG Care Time/CCT Total # of Minutes Spent Total Time Spent with Patient: Total time spent is greater than 50% in coordination of care (as documented) at patient's floor/unit and/or counseling patient: Coding Level of Care Code 86244 Subseq Hosp Care Lvl 1 Diagnoses C. difficile diarrhea A04.72
[2020-02-27] MEDS: ACETAMINOPHEN W/CODEINE #3 1 TAB PO PRN (21:38)
[2020-02-27] MEDS: ENOXAPARIN INJ 40 MG/0.4 ML SYR SQ SCH (21:39)
--- NOTE | 2020-02-27 21:45 | Hospitalist Progress Note ---
Date of Service February 27, 2020 Assessment & Plan (1) C. difficile diarrhea: Receiving vancomycin with improvement. (2) Acute metabolic encephalopathy: Altered mental status at time of admission. Probable encephalopathy secondary to infection. (3) Pneumonia: Treated for pneumonia prior to current hospitalization. Chest x-rays showed bilateral interstitial / reticulonodular infiltrates. Influenza A/B and BioFire Resp Panel negative. SARS-CoV-2 pending. Oxygenating well on RA. (4) Elevated troponin: EKG showed ST with nonspecific changes. Echo showed normal LVEF, no segmental wall motion abnormalities. Probable nonspecific elevation due to infection. (5) HTN (hypertension): Hemodynamically stable. Continue metoprolol. (6) Cirrhosis: Compensated. (7) Acute urinary retention: Bautista cath. (8) Thrombocytopenia: Underlying cirrhosis. Platelet count today = 100,000. Follow. (9) Status post open reduction and internal fixation (ORIF) of fracture: Postop management per Ortho. (10) DVT prophylaxis: SQ enoxaparin. (11) Discharge planning issues: Anticipated return to [facility] when medically stable. Admission and Anticipated Discharge Date Admission Date: February 24, 2020 Anticipated date of discharge: 02/28/20 Subjective Recheck for multiple problems. Patient seen in their room around 1420. Tired, but feels better. No fever. No abdominal pain, nausea, vomiting. Still has rectal tube. Review of Systems: Constitutional- as noted above. Cardiac- no chest pain. Pulmonary- no cough or SOB. GI- as noted above. - Bautista cath. Otherwise, as noted above. Physical Exam Constitutional: no acute distress Respiratory: no respiratory distress Auscultation: lungs clear to auscultation bilaterally Cardiovascular: Rate/Rhythm: regular rate and regular rhythm Vessels: no JVD Extremities: no calf tenderness and no edema Gastrointestinal (Abdomen): normal bowel sounds, soft, nontender, no hepatosplenomegaly Musculoskeletal: immobilizer applied to LLE left thigh incision healing well Skin: no rashes, warm and dry Psychiatric: Orientation: alert and oriented x 3 Results & Data Results & Data ([facility]) Vital Signs (Past 12 Hours) Vital Signs Temp Pulse Pulse Resp BP BP Pulse Ox 02/27/20 17:46 36.9 C 84 20 144/58 H 02/27/20 15:44 68 02/27/20 12:04 36.7 C 72 16 113/66 96 Laboratory Results 02/27/20 05:54 02/27/20 05:54 (1) Pneumonia Laterality: bilateral Lung location: upper lobe of lung Pneumonia type: due to unspecified organism Qualified Code(s): J18.9 - Pneumonia, unspecified organism
[2020-02-28] MEDS: ACETAMINOPHEN W/CODEINE #3 1 TAB PO PRN ×2 (04:08→18:26)
[2020-02-28] MEDS: RASPBERRY SYRUP 5 ML UDP PO SCH ×4 (04:30→17:35)
[2020-02-28] MEDS: VANCOMYCIN HCL 125 MG/2.5ML SOLN PO SCH ×4 (04:30→17:35)
[2020-02-28 07:21] LABS: Hematocrit (blood only) 28.7 % (37-47); Hemoglobin 8.8 g/dL (12.0-16.0); Mean Corpuscular Hemoglobin 29.7 pg (25-34); Mean Corpuscular Hgb Conc 30.7 g/dL (32-36); Platelet Count 84 K/uL (130-400); RDW Standard Deviation 64.1 fL (36.4-46.3); Red Blood Count 2.96 M/uL (4.2-5.4); White Blood Count 3.54 K/uL (4.8-10.8)
[2020-02-28 07:25] LABS: Albumin Level 2.1 gm/dl (3.4-5.0); BUN Creatinine Ratio 15.8 (10-20); Bilirubin Direct 0.2 mg/dl (0-0.2); Calcium 7.7 mg/dl (8.5-10.1); Creatinine Clr Calc Pharmacy 172.6 ml/min; Est GFR (African American) 131.2; Est GFR (Non-African American) 113.2; Magnesium 1.7 mg/dl (1.8-2.4); Potassium 3.2 mmol/L (3.5-5.1)
[2020-02-28 07:27] LABS: Albumin Globulin Ratio 0.7 (0.9-2); Bilirubin,Total 0.7 mg/dl (0.2-1); Globulin 3.2 gm/dl (2.5-4.0); Phosphorus 2.1 mg/dl (2.5-4.9); Total Protein 5.3 gm/dl (6.4-8.2)
[2020-02-28] MEDS ORDERED: POTASSIUM PHOS 3 MMOL/1 ML INFUSION IV ONE (07:38)
[2020-02-28] MEDS ORDERED: POTASSIUM PHOSPHATE 21 MMOL in SODIUM CHLORIDE 0.9% 500 ML IV ONE (08:00)
[2020-02-28] MEDS: ASCORBIC ACID 500 MG TAB PO SCH (08:06)
[2020-02-28] MEDS: CALCIUM 600MG + VIT D 400 IU TAB PO SCH (08:06)
[2020-02-28] MEDS: FLUTICASONE PROPIONATE NA SPR 16 GM BTL NAE SCH (08:06)
[2020-02-28] MEDS: METOPROLOL TARTRATE 50 MG TAB PO SCH ×2 (08:06→21:42)
[2020-02-28] MEDS: POT PHOSPHATE MONOBASIC W/ SOD TAB PO SCH ×4 (08:13→21:42)
--- NOTE | 2020-02-28 20:25 | Hospitalist Progress Note ---
Date of Service February 28, 2020 Assessment & Plan (1) C. difficile diarrhea: Receiving vancomycin. Still having frequent loose stools. Consider adding cholestyramine. (2) Acute metabolic encephalopathy: Altered mental status at time of admission. LP negative. Probable encephalopathy secondary to infection. More confused today. Ammonia level 14. Noted history of bipolar disorder and schizophrenia, although details not available. Seemed to be hallucinating today. Delirium vs underlying psychotic disorder. Psychiatry asked for their input. (3) Pneumonia: Treated for pneumonia prior to current hospitalization. Chest x-rays showed bilateral interstitial / reticulonodular infiltrates. Influenza A/B and BioFire Resp Panel negative. SARS-CoV-2 pending. Oxygenating well on RA. (4) Elevated troponin: EKG showed ST with nonspecific changes. Echo showed normal LVEF, no segmental wall motion abnormalities. Probable nonspecific elevation due to infection. (5) HTN (hypertension): Hemodynamically stable. Continue metoprolol. (6) Cirrhosis: Compensated. (7) Acute urinary retention: Bautista cath. (8) Thrombocytopenia: Underlying cirrhosis. Platelet count today = 84,000. Follow. (9) Status post open reduction and internal fixation (ORIF) of fracture: Postop management per Ortho. (10) Hypokalemia: K = 3.2. Hypokalemia probably secondary to diarrhea. Replace. Follow. (11) Hypomagnesemia: Mg = 1.7. Replace. Follow. (12) Hypophosphatemia: Phos = 2.1. Replace. Follow. (13) DVT prophylaxis: Receiving SQ enoxaparin; need to be cautious in light of thrombocytopenia. SCD's or TEDS not good options because of frequent diarrhea and certain soiling. Ambulate as able. (14) Discharge planning issues: Anticipated return to [facility] when medically stable. Admission and Anticipated Discharge Date Admission Date: February 24, 2020 Anticipated date of discharge: 02/28/20 Subjective Recheck for multiple problems. Patient seen in their room around 1110. Rectal tube removed yesterday. Still having frequent loose stools. No abdominal pain, nausea, vomiting. No fever. Nursing staff notes increasing confusion. Review of Systems: Constitutional- as noted above. Cardiac- no chest pain. Pulmonary- no cough or SOB. GI- as noted above. - Bautista cath removed. Otherwise, as noted above. Physical Exam Constitutional: no acute distress Respiratory: no respiratory distress Auscultation: lungs clear to auscultation bilaterally Cardiovascular: Rate/Rhythm: regular rate and regular rhythm Vessels: no JVD Extremities: no calf tenderness and no edema Gastrointestinal (Abdomen): normal bowel sounds, soft, nontender, no hepatosplenomegaly Skin: no rashes, warm and dry Psychiatric: Orientation: alert; + not oriented x 3 (confused, ? hallucinating- talking to her father?) Affect: + depressed affect and + anxious affect Results & Data Results & Data ([facility]) Vital Signs (Past 12 Hours) Vital Signs Temp Pulse Resp BP BP Pulse Ox 02/28/20 19:57 37.2 C 88 17 138/71 93 02/28/20 15:26 36.8 C 86 18 144/75 H 96 02/28/20 11:00 36.8 C 65 20 120/67 96 Laboratory Results Laboratory Results - last 24 hr 02/28/20 02/28/20 02/28/20 06:06 06:06 16:28 WBC 3.54 L RBC 2.96 L Hgb 8.8 L Hct 28.7 L MCV 97.0 MCH 29.7 MCHC 30.7 L RDW Std Deviation 64.1 H RDW Coeff of Dewayne 18.0 H Plt Count 84 L MPV 13.0 H Sodium 139 Potassium 3.2 L Chloride 112 H Carbon Dioxide 21 Anion Gap 6.0 BUN 6 L Creatinine 0.40 L Est Cr Clr Drug Dosing 172.6 Est GFR ( Amer) 131.2 Est GFR (Non-Af Amer) 113.2 BUN/Creatinine Ratio 15.8 Glucose 92 Calcium 7.7 L Phosphorus 2.1 L Magnesium 1.7 L Total Bilirubin 0.7 Direct Bilirubin 0.2 AST 32 ALT 29 Alkaline Phosphatase 70 Ammonia 12.0 Total Protein 5.3 L Albumin 2.1 L Globulin 3.2 Albumin/Globulin Ratio 0.7 L (1) Pneumonia Laterality: bilateral Lung location: upper lobe of lung Pneumonia type: due to unspecified organism Qualified Code(s): J18.9 - Pneumonia, unspecified organism
[2020-02-28] MEDS: ENOXAPARIN INJ 40 MG/0.4 ML SYR SQ SCH (21:42)
[2020-02-29] MEDS: RASPBERRY SYRUP 5 ML UDP PO SCH ×5 (00:26→23:44)
[2020-02-29] MEDS: VANCOMYCIN HCL 125 MG/2.5ML SOLN PO SCH ×5 (00:26→23:44)
[2020-02-29] MEDS: ACETAMINOPHEN 325 MG TAB PO PRN ×3 (03:47→22:05)
[2020-02-29 06:45] LABS: Hematocrit (blood only) 30.3 % (37-47); Hemoglobin 9.4 g/dL (12.0-16.0); Mean Corpuscular Hemoglobin 29.9 pg (25-34); Mean Corpuscular Volume 96.5 fL (80-100); RDW Coefficient of Variation 17.9 % (11.5-14.5); RDW Standard Deviation 63.6 fL (36.4-46.3); Red Blood Count 3.14 M/uL (4.2-5.4); White Blood Count 3.57 K/uL (4.8-10.8)
[2020-02-29 07:04] LABS: BUN Creatinine Ratio 11.1 (10-20); Creatinine Clr Calc Pharmacy 188.1 ml/min; Est GFR (African American) 135.8; Est GFR (Non-African American) 117.2; Magnesium 1.8 mg/dl (1.8-2.4); Potassium 3.1 mmol/L (3.5-5.1)
[2020-02-29] MEDS ORDERED: POTASSIUM CHLORIDE 20 MEQ TABCR PO ONE (07:08)
[2020-02-29 07:12] LABS: Mean Platelet Volume 11.9 fL (7.4-10.4); Platelet Count 84 K/uL (130-400)
[2020-02-29 07:16] LABS: Basophils # (auto) 0.01 K/uL (0-0.2); Basophils % (auto) 0.3 %; Eosinophils # (auto) 0.33 K/uL (0-0.5); Eosinophils % (auto) 9.2 %; Immature Granulocytes # (auto) 0.01 K/uL (0.00-0.02); Immature Granulocytes % (auto) 0.3 %; Lymphocytes # (auto) 0.55 K/uL (1.2-3.4); Lymphocytes % (auto) 15.4 %; Monocytes # (auto) 0.56 K/uL (0.11-0.59); Monocytes % (auto) 15.7 %; Neutrophils # (auto) 2.11 K/uL (1.4-6.5); Neutrophils % (auto) 59.1 %
[2020-02-29] MEDS: ASCORBIC ACID 500 MG TAB PO SCH (08:57)
[2020-02-29] MEDS: POTASSIUM CHLORIDE 20 MEQ TABCR PO SCH ×3 (08:58→21:48)
[2020-02-29] MEDS: FLUTICASONE PROPIONATE NA SPR 16 GM BTL NAE SCH (08:59)
[2020-02-29] MEDS: METOPROLOL TARTRATE 50 MG TAB PO SCH ×2 (08:59→21:48)
[2020-02-29] MEDS: CALCIUM 600MG + VIT D 400 IU TAB PO SCH (08:59)
[2020-02-29] MEDS: POT PHOSPHATE MONOBASIC W/ SOD TAB PO SCH ×4 (09:00→21:48)
[2020-02-29 12:47] LABS: Base Excess VBG 1.3 mEq/L; HCO3 VBG 26 mmol/L; Oxygen Saturation VBG < 60.0 %; PCO2 VBG 41 mmHg (38-50); PO2 VBG 35 mmHg; pH VBG 7.42 (7.36-7.41)
[2020-02-29 12:56] LABS: INR 1.3 (0.9-1.1); Prothrombin Time 13.5 Seconds (9.0-12.0)
[2020-02-29 13:12] LABS: Iron 31 mcg/dl (35-150); Transferrin 237 mg/dl (200-360); Transferrin Percent Saturation 9 % (15-50)
[2020-02-29 13:32] LABS: Folate (Folic Acid) 10.73 ng/ml (>5.38)
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
--- NOTE | 2020-02-29 18:07 | Hospitalist Progress Note ---
Date of Service February 29, 2020 Assessment & Plan (1) C. difficile diarrhea: Receiving vancomycin. Frequent loose stools yesterday, but better today. Very lethargic. Check CT abd & pelvis to rule out complications. (2) Acute metabolic encephalopathy: Altered mental status at time of admission. LP negative. Probable encephalopathy secondary to infection. More confused last 24 hours. Ammonia level 14 yesterday, 23 today. Noted history of bipolar disorder and schizophrenia, although details not available. Seemed to be hallucinating yesterday. Delirium vs underlying psychotic disorder. Psychiatry asked for their input. Very lethargic today. Consider CREDENTIALER event, infection, delirium, thiamine deficiency. Check CT head, abdomen, pelvis. Check B1, B12, folate levels. Empiric thiamine replacement. (3) Pneumonia: Treated for pneumonia prior to current hospitalization. Chest x-rays showed bilateral interstitial / reticulonodular infiltrates. Influenza A/B and Bio[employer] Resp Panel negative. SARS-CoV-2 pending. Oxygenating well on RA. Check CT chest for better characterization of abnormalities noted on plain films. (4) Elevated troponin: EKG showed ST with nonspecific changes. Echo showed normal LVEF, no segmental wall motion abnormalities. Probable nonspecific elevation due to infection. (5) HTN (hypertension): Hemodynamically stable. Continue metoprolol. (6) Cirrhosis: Compensated. (7) Acute urinary retention: Bautista cath. (8) Thrombocytopenia: Underlying cirrhosis. Platelet count today stable at 84,000. Follow. (9) Status post open reduction and internal fixation (ORIF) of fracture: [place] [facility]utures may be removed. Toe touch weight-bearing. ROM. Immobilizer when out of bed. Follow-up x-ray 6 weeks postop. (10) Hypokalemia: K = 3.1. Hypokalemia probably secondary to diarrhea. Replace. Follow. (11) Hypomagnesemia: Mg 1.4 on 02/23. Received replacement. Mg today 1.8. Follow. (12) Hypophosphatemia: Phos 2.1 on .. Received replacement. Follow. (13) DVT prophylaxis: Receiving SQ enoxaparin- will stop because of thrombocytopenia. Diarrhea improved, so will start utilizing SCD's. Ambulate as able. (14) Discharge planning issues: Anticipated return to [facility] when medically stable. Admission and Anticipated Discharge Date Admission Date: February 24, 2020 Anticipated date of discharge: 02/28/20 Subjective Recheck for multiple problems. Patient seen in their room around 1120. Confused and restless much of the day yesterday. Very somnolent this morning. Did not eat breakfast. Very hard to awaken. No recent sedating meds (acetaminophen with codeine was stopped yesterday). Staff reports that diarrhea improved. Review of Systems: Unable to obtain due to lethargy. Physical Exam Constitutional: no acute distress Respiratory: no respiratory distress Auscultation: lungs clear to auscultation bilaterally Cardiovascular: Rate/Rhythm: regular rate and regular rhythm (with occasional ectopy) Vessels: no JVD Extremities: no calf tenderness and no edema Gastrointestinal (Abdomen): normal bowel sounds, soft, nontender, no hepatosplenomegaly Skin: no rashes, warm and dry Neurologic: obtunded pupils abut 2 mm and reactive plantar reflexes downgoing Psychiatric: Orientation: + not alert Affect: + depressed affect and + anxious affect Results & Data Results & Data ([facility]) Vital Signs (Past 12 Hours) Vital Signs Temp Pulse Resp BP Pulse Ox 02/29/20 16:07 36.4 C L 81 16 152/79 H 96 02/29/20 13:03 36.7 C 76 20 131/65 96 02/29/20 11:50 36.5 C 73 20 128/68 96 02/29/20 10:59 36.4 C L 73 18 117/66 94 02/29/20 07:14 36.6 C 73 17 133/67 96 Laboratory Results Laboratory Results - last 24 hr 02/29/20 02/29/20 02/29/20 06:21 06:21 12:34 WBC 3.57 L RBC 3.14 L Hgb 9.4 L Hct 30.3 L MCV 96.5 MCH 29.9 MCHC 31.0 L RDW Std Deviation 63.6 H RDW Coeff of Dewayne 17.9 H Plt Count 84 L MPV 11.9 H Immature Gran % (Auto) 0.3 Neut % (Auto) 59.1 Lymph % (Auto) 15.4 [place] % (Auto) 15.7 Eos % (Auto) 9.2 Baso % (Auto) 0.3 Immature Gran # (Auto) 0.01 Neut # (Auto) 2.11 Lymph # (Auto) 0.55 L [place] # (Auto) 0.56 Eos # (Auto) 0.33 Baso # (Auto) 0.01 PT INR VBG pH VBG pCO2 VBG pO2 VBG HCO3 VBG O2 Saturation VBG Base Excess Barometric Pressure Sodium 138 Potassium 3.1 L Chloride 108 H Carbon Dioxide 25 Anion Gap 5.0 BUN 4 L Creatinine 0.36 L Est Cr Clr Drug Dosing 188.1 Est GFR ( Amer) 135.8 Est GFR (Non-Af Amer) 117.2 BUN/Creatinine Ratio 11.1 Glucose 97 Calcium 8.0 L Phosphorus 3.0 Magnesium 1.8 Iron 31 L Transferrin 237 Transferrin % Sat 9 L Ammonia Whole Bld Vitamin B1 Vitamin B12 Folate 02/29/20 02/29/20 02/29/20 12:34 12:34 12:34 WBC RBC Hgb Hct MCV MCH MCHC RDW Std Deviation RDW Coeff of Dewayne Plt Count MPV Immature Gran % (Auto) Neut % (Auto) Lymph % (Auto) [place] % (Auto) Eos % (Auto) Baso % (Auto) Immature Gran # (Auto) Neut # (Auto) Lymph # (Auto) [place] # (Auto) Eos # (Auto) Baso # (Auto) PT INR VBG pH 7.42 H VBG pCO2 41 VBG pO2 35 VBG HCO3 26 VBG O2 Saturation < 60.0 VBG Base Excess 1.3 Barometric Pressure 728.2 Sodium Potassium Chloride Carbon Dioxide Anion Gap BUN Creatinine Est Cr Clr Drug Dosing Est GFR ( Amer) Est GFR (Non-Af Amer) BUN/Creatinine Ratio Glucose Calcium Phosphorus Magnesium Iron Transferrin Transferrin % Sat Ammonia 22.8 Whole Bld Vitamin B1 Vitamin B12 690 Folate 10.73 02/29/20 02/29/20 12:34 12:34 WBC RBC Hgb Hct MCV MCH MCHC RDW Std Deviation RDW Coeff of Dewayne Plt Count MPV Immature Gran % (Auto) Neut % (Auto) Lymph % (Auto) [place] % (Auto) Eos % (Auto) Baso % (Auto) Immature Gran # (Auto) Neut # (Auto) Lymph # (Auto) [place] # (Auto) Eos # (Auto) Baso # (Auto) PT 13.5 H INR 1.3 H VBG pH VBG pCO2 VBG pO2 VBG HCO3 VBG O2 Saturation VBG Base Excess Barometric Pressure Sodium Potassium Chloride Carbon Dioxide Anion Gap BUN Creatinine Est Cr Clr Drug Dosing Est GFR ( Amer) Est GFR (Non-Af Amer) BUN/Creatinine Ratio Glucose Calcium Phosphorus Magnesium Iron Transferrin Transferrin % Sat Ammonia Whole Bld Vitamin B1 Pending Vitamin B12 Folate (1) Pneumonia Laterality: bilateral Lung location: upper lobe of lung Pneumonia type: due to unspecified organism Qualified Code(s): J18.9 - Pneumonia, unspecified organism
[2020-02-29] MEDS ORDERED: MULTI-VITAMIN INFUSION 10 ML, THIAMINE HCL 100 MG, FOLIC ACID 1 MG in SODIUM CHLORIDE 0... IV ONE (18:30)
[2020-02-29 19:50] LABS: Appearance Urine Clear (Clear); Bacteria Urine Automated Negative (Negative); Bilirubin Urine Negative (Negative); Blood Urine Negative (Negative); Color Urine Yellow; Epithelial Cell Urine Auto >30 /lpf (0-5); Glucose Urine UA Negative (Negative); Ketones Urine Negative (Negative); Leukocyte Esterase Urine Trace (Negative); Nitrite Urine Negative (Negative); Protein Urine Negative (Negative); RBC Urine Automated 0-4 /hpf (0-4); Specific Gravity Urine 1.015 (1.000-1.030); Urobilinogen Urine Negative (Negative); pH Urine 6.5 (4.5-7.5)
[2020-03-01] MEDS ORDERED: THIAMINE HCL 500 MG in SYRINGE 9 ML IV SCH (06:00)
--- NOTE | 2020-03-01 06:24 | CT Scan Report ---
CT head/brain wo con CLINICAL HISTORY: 60 years-old Female presenting with altered mental status. TECHNIQUE: Multidetector CT imaging of the head was performed without the use of intravenous contrast . IV contrast: None. One or more dose lowering techniques were used consistent with the principles of ALARA (as low as reasonably achievable), including automatic exposure control, mA or kV adjustment t o individual patient size, and/or use of iterative reconstruction. COMPARISON: None. CT DOSE (mGy.cm): The estimated cumulative dose is 1553.72 mGycm. FINDINGS: [employer] topogram: Unremarkable. Ventricles and sulci normal in size. No hemorrhage. Brain parenchyma normal in appearance with preser johnathon kennedy-white differentiation. No acute territorial infarct. No mass effect or midline shift. No ext ra-axial fluid collection. Paranasal sinuses and mastoid air cells clear. Calvarium intact. IMPRESSION: 1. No acute intracranial abnormality. ACT 112: Negative or not required by law. Electronically signed by: Elias Joshi M.D. 03/01/2020 6:22 AM
[2020-03-01] MEDS: VANCOMYCIN HCL 125 MG/2.5ML SOLN PO SCH ×2 (06:28→13:27)
[2020-03-01] MEDS: RASPBERRY SYRUP 5 ML UDP PO SCH ×4 (06:28→20:39)
[2020-03-01] MEDS: THIAMINE HCL 500 MG in 0.9 % SODIUM CHLORIDE 100 ML IV SCH ×2 (06:28→13:28)
--- NOTE | 2020-03-01 06:33 | CT Scan Report ---
CT chest wo con CLINICAL HISTORY: 60 years-old Female presenting with abnormal chest x-ray. TECHNIQUE: Multidetector CT imaging of the chest was performed without the use of intravenous contras t. IV contrast: None. One or more dose lowering techniques were used consistent with the principles o f ALARA (as low as reasonably achievable), including automatic exposure control, mA or kV adjustment to individual patient size, and/or use of iterative reconstruction. COMPARISON: Chest x-ray performed on 02/25/2020. CT DOSE (mGy.cm): The estimated cumulative dose is 470.39 mGycm. FINDINGS: Watch Assembly Inspector topogram: Unremarkable. Soft tissues: Normal thyroid and thoracic inlet. Prominent subcentimeter mediastinal lymph nodes, non specific. Evaluation of the yana limited in the absence of intravenous contrast. Atherosclerosis of t he aorta. Borderline enlargement of the heart. Coronary artery and aortic valve calcification. Small right and trace left pleural effusions. No pericardial effusion. Ascites is evident in the upper abdo men. Splenomegaly may be present. Lungs and airways: No pneumothorax. Central airways patent. Pulmonary arteries mildly enlarged relati ve to adjacent bronchi. Minimal interlobular septal thickening. Moderate upper lobe predominant centr ilobular emphysema. Paraseptal emphysematous changes also noted at the apices as well as bolus parase ptal emphysematous change dependently in the lower lobes. There is slight wall thickening of bullous changes in the right lower lobe (series 4 image 164). No fluid level is evident in the cavity/bullae. Mild diffuse added density of the lungs. Subpleural predominantly subsolid 9 mm nodule in the right middle lobe, which may conform to a secondary pulmonary lobule (series 4 image 128). Musculoskeletal: Mildly exaggerated thoracic kyphosis. Mild to moderate compression deformity of T8 w ith milder superior endplate compression of T4, T5, and T9. Osteopenia. IMPRESSION: 1. Bullous paraseptal emphysematous changes dependently in the lower lobes with slight wall thickeni ng in the right lower lobe. This could raise concern for superimposed infection though there is no ai r-fluid level within the bullae/cavities. Alternatively, this could relate to chronic inflammation hill ch as in the setting of chronic aspiration, scarring/fibrosis or prior infection. 2. More typical upper lobe predominant centrilobular emphysema is also present. 3. No other focal infiltrate to suggest pneumonia. 4. 9 mm subsolid right middle lobe nodule. Follow-up per Fleischner Society 2017 criteria below. 5. Small right pleural effusion. 6. Ascites. 7. Questionable splenomegaly. Please see separately dictated CT of abdomen and pelvis. 8. Multiple mild to moderate compression deformities likely on a chronic basis in the setting of ost eopenia. Summary of Fleischner Society 2017 Recommendations (H Celsa et al. Guidelines for management of i ncidental pulmonary nodules detected on CT images: From the Fleischner Society 2017. Radiology 2017; 284: 228-243.) SOLID NODULES Single nodule; size < 6 mm * Low risk patients: No routine follow-up * High risk patients: Optional CT at 12 months Single nodule; size 6-8 mm * Low risk patients: CT at 6-12 months, then consider CT at 18-24 months * High risk patients: CT at 6-12 months, then at 18-24 months Single nodule; size > 8 mm * Either low or high risk patients: Consider CT at 3 months, PET/CT, or tissue sampling Multiple nodules; size < 6 mm * Low risk patients: No routine follow up * High risk patients: Optional CT at 12 months Multiple nodules; size 6-8 mm * Low risk patients: CT at 3-6 months, then consider CT at 18-24 months * High risk patients: CT at 3-6 months, then at 18-24 months Multiple nodules; size > 8 mm * Low risk patients: CT at 3-6 months, then consider at 18-24 months * High risk patients: CT at 3-6 months, then at 18-24 months SUBSOLID NODULES Single ground-glass nodule * Nodule size < 6 mm: No routine follow-up * Nodule size > or = 6 mm: CT at 6-12 months to confirm persistence, then CT every 2 years until 5 y ears Single part-solid nodule * Nodule size < 6 mm: No routine follow-up * Nodules size > or = 6 mm: CT at 3-6 months to confirm persistence. If unchanged and solid componen t remains < 6 mm, annual CT should be performed for 5 years Multiple nodules * Nodule size < 6 mm: CT at 3-6 months. If stable, consider CT at 2 and 4 years. * Nodules size > or = 6 mm: CT at 3-6 months. Subsequent management based on the most suspicious nod ule(s) NOTE: 1) These guidelines apply to incidental nodules. These guidelines do NOT apply to patients younger th an 35 years, immunocompromised patients, or patients with cancer. 2) Risk categories: * Low risk patients: Minimal or absent history of smoking and/or other known risk factors * High risk patients: History of smoking, exposure to other carcinogens, emphysema, fibrosis, upper lobe location, family history of lung cancer, etc. 3) If a nodule up to 8 mm is partly solid or is ground glass, further follow-up is required after 24 months to exclude possible slow growing adenocarcinoma. ACT 112: Negative or not required by law. Electronically signed by: Elias Joshi M.D. 03/01/2020 6:32 AM
--- NOTE | 2020-03-01 06:42 | CT Scan Report ---
CT abd pelvis wo con CLINICAL HISTORY: 60 years-old Female presenting with C diff, cirrhosis. TECHNIQUE: Multidetector CT of the abdomen and pelvis was performed without the use of intravenous co ntrast. IV contrast: None. One or more dose lowering techniques were used consistent with the princip les of ALA (as low as reasonably achievable), including automatic exposure control, mA or kV adjust ment to individual patient size, and/or use of iterative reconstruction. COMPARISON: None. CT DOSE (mGy.cm): The estimated cumulative dose is 1026.57 mGycm. FINDINGS: Haircutter topogram: Orthopedic hardware. Lung bases: Borderline enlargement of the heart. Small right and trace left pleural effusions. Extens al bullous emphysematous changes dependently in the lower lobes. Slight wall thickening on the right . Liver: Subtle nodular contour of the liver suspected concerning for fibrosis/cirrhosis. Normal liver density. Biliary: No gross biliary ductal dilatation allowing for noncontrast technique. Gallbladder decompres sed. Mild apparent wall thickening of the gallbladder may be due to underdistention. Pancreas: Normal noncontrast appearance. Spleen: Enlarged measuring 15 cm in maximal sagittal dimension. Adrenal glands: Normal noncontrast appearance. Kidneys and ureters: Normal noncontrast appearance. No nephrolithiasis. No hydronephrosis. Normal ure ters. Bladder: Focus of gas within the bladder lumen may relate to recent catheterization. Bladder partiall y obscured due to streak artifact arising from the total left hip arthroplasty. Pelvic organs: Poorly visualized due to streak artifact. Bowel: Circumferential wall thickening in the rectum may be present versus fluid within the lumen. Si gnificant wall thickening of the sigmoid colon extending proximally to the cecum is also evident. No bowel obstruction. The appendix is not visualized. Trace hiatal hernia. Mild wall thickening of small bowel may also be present especially proximally. Peritoneal cavity: Small volume grossly simple appearing ascites in the abdomen and pelvis. No free i ntraperitoneal gas. No pneumatosis. Lymph nodes: No gross lymphadenopathy allowing for noncontrast technique. Vasculature: Atherosclerosis of the normal caliber abdominal aorta. Extensive retroperitoneal varices are suspected most prominently in the pericaval region. These are suboptimally evaluated without int ravenous contrast. Abdominal wall: Moderate body wall edema. Musculoskeletal: Total left hip arthroplasty. Regional streak artifact degrades evaluation. Osteopeni a. Degenerative changes of the spine. Pars defect of L4 on the left. IMPRESSION: 1. Suspected hepatic fibrosis/cirrhosis with portal hypertension evidenced by splenomegaly and ascit es. 2. Extensive significance predominantly large bowel wall thickening could either represent portal co lopathy with more limited presence of portal enteropathy versus ongoing enterocolitis given the histo ry of C. difficile infection. ACT 112: Negative or not required by law. Electronically signed by: Elias Joshi M.D. 03/01/2020 6:40 AM
[2020-03-01] MEDS: CALCIUM 600MG + VIT D 400 IU TAB PO SCH (07:28)
[2020-03-01] MEDS: ASCORBIC ACID 500 MG TAB PO SCH (07:28)
[2020-03-01] MEDS: METOPROLOL TARTRATE 50 MG TAB PO SCH ×2 (07:28→20:39)
[2020-03-01] MEDS: POT PHOSPHATE MONOBASIC W/ SOD TAB PO SCH ×4 (07:28→20:39)
[2020-03-01] MEDS: POTASSIUM CHLORIDE 20 MEQ TABCR PO SCH ×3 (07:28→20:39)
[2020-03-01] MEDS: FLUTICASONE PROPIONATE NA SPR 16 GM BTL NAE SCH (07:30)
[2020-03-01 08:39] LABS: BUN Creatinine Ratio 8.1 (10-20); Calcium 8.2 mg/dl (8.5-10.1); Creatinine Clr Calc Pharmacy 160.6 ml/min; Est GFR (African American) 128.1; Est GFR (Non-African American) 110.6; Potassium 3.4 mmol/L (3.5-5.1)
[2020-03-01 09:49] LABS: COVID-19 Patient Symptomatic? YES; PAN-SARS Coronavirus RNA NEGATIVE (NEGATIVE); SARS CoV2 RNA (COVID-19) NEGATIVE (NEGATIVE); SARS Coronavirus RNA Source NASOPHARYNGEAL
[2020-03-01] MEDS: ACETAMINOPHEN 325 MG TAB PO PRN ×3 (09:52→22:44)
[2020-03-01] MEDS: metroNIDAZOLE 500 MG/100 ML BAG IV SCH ×2 (13:27→22:39)
--- NOTE | 2020-03-01 14:32 | Hospitalist Progress Note ---
Date of Service March 01, 2020 Assessment & Plan (1) C. difficile diarrhea: Presented with fever, altered mental status, diarrhea. Recent course of antibiotics for pneumonia + UTI. Started on vancomycin. Persistent diarrhea despite several days of vancomycin. CT abd & pelvis 02/28 demonstrated extensive bowel wall thickening consistent with colitis, no toxic megacolon, no evidence of perforated viscus. Discussed with GI. Increase vancomycin to 250 mg QID and add IV metronidazole. (2) Acute metabolic encephalopathy: Altered mental status at time of admission. LP negative. Probable encephalopathy secondary to infection. Worsening confusion & lethargy 02/27 and 02/28. Ammonia level 14 on 02/27, 23 on 02/28. Noted history of bipolar disorder and schizophrenia, although details not available. Seemed to be hallucinating 02/27.. Delirium vs underlying psychotic disorder. Psychiatry asked for their input. Considered AWNING FINISHER event, infection, delirium, thiamine deficiency. CT head negative. B12 and folic acid levels OK. Thiamine level pending; continue empiric thiamine replacement for now. Mental status improved. (3) Pneumonia: Treated for pneumonia prior to current hospitalization. Chest x-rays showed bilateral interstitial / reticulonodular infiltrates. Influenza A/B and BioFire Resp Panel negative. SARS-CoV-2 negative. Oxygenating well on RA. CT chest did not show any evidence of pneumonia. (4) Elevated troponin: EKG showed ST with nonspecific changes. Echo showed normal LVEF, no segmental wall motion abnormalities. Probable nonspecific elevation due to infection. (5) HTN (hypertension): Hemodynamically stable. Continue metoprolol. (6) Pulmonary nodule: 9 mm subsolid RML nodule noted on CT 02/29/20. Patient is a smoker. Follow-up CT in 3-6 months per guidelines. Pulmonary Medicine evaluation if any concerning changes. (7) Cirrhosis: Cirrhosis of liver with evidence of portal hypertension incidentally noted on CT at [facility] in January. No prior known history of hepatic disease. Patient denies heavy drinking. Seen by GI at [facility] who recommended outpatient GI follow-up. (8) Acute urinary retention: [place] cath removed. Voiding without difficulty. (9) Anemia: Baseline Hgb 9.2 02/06/20. Hgb 9.6 02/22, fell as low as 8.8. Hgb yesterday 9.4. Anemia probably multifactorial. Underlying cirrhosis. No gross GI bleeding. Fe 31, transferrin 237, transferrin sat 9%. B12 and folate OK. Start Fe for iron deficiency anemia. Will need colonoscopy once acute problems have resolved. (10) Thrombocytopenia: Underlying cirrhosis. Platelet count today stable at 84,000. Follow. (11) Status post open reduction and internal fixation (ORIF) of fracture: Discussed status with Ortho at [facility]. Sutures may be removed. Toe touch weight-bearing. ROM. Immobilizer when out of bed. Follow-up x-ray 6 weeks postop. (12) Osteoporosis: History of femur fracture on 2 separate occasions. Imaging shows compression fractures of spine. Vitamin D level 17. Calcium + vitamin D replacement. (13) Vitamin D deficiency: Osteoporosis as noted above. Vitamin D level 17. Replace with 50,000 units weekly x 4 weeks, then ongoing maintenance dosing with periodic rechecks. (14) Hypokalemia: K as low as 2.9. Hypokalemia probably secondary to diarrhea. Receiving replacement. K today = 3.4. Follow. (15) Hypomagnesemia: Mg 1.4 on 02/23. Received replacement. Mg yesterday 1.8. Follow. (16) Hypophosphatemia: Phos 2.1 on .2. Received replacement. Follow. (17) DVT prophylaxis: Received SQ enoxaparin- will stop because of thrombocytopenia. Diarrhea improved, so will start utilizing SCD's. Ambulate as able. (18) Discharge planning issues: Anticipated return to [facility] when medically stable. Medical follow-up with Dr. Redd. Admission and Anticipated Discharge Date Admission Date: February 24, 2020 Anticipated date of discharge: 02/28/20 Subjective Recheck for multiple problems. Patient seen in their room around 0950. Lethargy, confusion resolved. Ongoing loose stools (3 today so far). Mild abdominal pain. No N/V. Review of Systems: Constitutional- no fever. Cardiac- no chest pain. Pulmonary- no cough or SOB. GI- no nausea, vomiting, melena, hematochezia. - no urinary symptoms. Otherwise, as noted above. Physical Exam Constitutional: no acute distress Respiratory: no respiratory distress Auscultation: lungs clear to auscultation bilaterally Cardiovascular: Rate/Rhythm: regular rate and regular rhythm Vessels: no JVD Extremities: + edema (trace pretibial); no calf tenderness Gastrointestinal (Abdomen): normal bowel sounds, soft, nontender, no hepatosplenomegaly Skin: no rashes, warm and dry Psychiatric: Orientation: alert and oriented x 3 Thought Content: + delusions Results & Data Results & Data ([facility]) Vital Signs (Past 12 Hours) Vital Signs Temp Pulse Resp BP Pulse Ox 03/01/20 11:29 36.9 C 96 H 19 151/75 H 96 03/01/20 07:27 97 03/01/20 07:25 36.3 C L 85 12 146/78 H Laboratory Results Laboratory Results - last 24 hr 02/24/20 02/29/20 03/01/20 09:30 18:30 07:55 Sodium 139 Potassium 3.4 L Chloride 109 H Carbon Dioxide 25 Anion Gap 5.0 BUN 4 L Creatinine 0.43 L Est Cr Clr Drug Dosing 160.6 Est GFR ( Amer) 128.1 Est GFR (Non-Af Amer) 110.6 BUN/Creatinine Ratio 8.1 L Glucose 108 H Calcium 8.2 L 25-OH Vitamin D Total Urine Color Yellow Urine Appearance Clear Urine pH 6.5 Ur Specific Strawn 1.015 Urine Protein Negative Urine Glucose (UA) Negative Urine Ketones Negative Urine Blood Negative Urine Nitrite Negative Urine Bilirubin Negative Urine Urobilinogen Negative Ur Leukocyte Esterase Trace H Urine WBC (Auto) 10-30 H Urine RBC (Auto) 0-4 U Hyaline Cast (Auto) 1-5 U Epithel Cells (Auto) >30 H Urine Bacteria (Auto) Negative Coronavirus (PCR) NOT DETECTED COVID-19 Pt Symptomatic YES COVID-19 Source NASOPHARYNGEAL SARS Virus RNA (PCR) NEGATIVE SARS-CoV-2 RNA (RT-PCR) NEGATIVE 03/01/20 07:55 Sodium Potassium Chloride Carbon Dioxide Anion Gap BUN Creatinine Est Cr Clr Drug Dosing Est GFR ( Amer) Est GFR (Non-Af Amer) BUN/Creatinine Ratio Glucose Calcium 25-OH Vitamin D Total 17.3 L Urine Color Urine Appearance Urine pH Ur Specific Strawn Urine Protein Urine Glucose (UA) Urine Ketones Urine Blood Urine Nitrite Urine Bilirubin Urine Urobilinogen Ur Leukocyte Esterase Urine WBC (Auto) Urine RBC (Auto) U Hyaline Cast (Auto) U Epithel Cells (Auto) Urine Bacteria (Auto) Coronavirus (PCR) COVID-19 Pt Symptomatic COVID-19 Source SARS Virus RNA (PCR) SARS-CoV-2 RNA (RT-PCR) (1) Pneumonia Laterality: bilateral Lung location: upper lobe of lung Pneumonia type: due to unspecified organism Qualified Code(s): J18.9 - Pneumonia, unspecified organism
[2020-03-01] MEDS ORDERED: ERGOCALCIFEROL 50,000 UNITS CAP PO SCH (15:30)
[2020-03-01] MEDS: VANCOMYCIN HCL 250 MG/5 ML SOLN PO SCH ×2 (17:52→20:40)
[2020-03-01] MEDS: FERROUS SULFATE 325 MG TAB PO SCH (18:59)
[2020-03-02] MEDS: metroNIDAZOLE 500 MG/100 ML BAG IV SCH ×3 (06:05→21:58)
[2020-03-02 06:34] LABS: Hemoglobin 9.2 g/dL (12.0-16.0); Mean Corpuscular Hemoglobin 29.7 pg (25-34); Mean Corpuscular Hgb Conc 30.7 g/dL (32-36); Mean Corpuscular Volume 96.8 fL (80-100); Mean Platelet Volume 12.8 fL (7.4-10.4); Platelet Count 99 K/uL (130-400); RDW Coefficient of Variation 17.8 % (11.5-14.5); RDW Standard Deviation 63.9 fL (36.4-46.3); White Blood Count 3.34 K/uL (4.8-10.8)
[2020-03-02 06:51] LABS: BUN Creatinine Ratio 12.5 (10-20); Calcium 8.1 mg/dl (8.5-10.1); Creatinine Clr Calc Pharmacy 195.6 ml/min; Est GFR (African American) 137.1; Est GFR (Non-African American) 118.3; Magnesium 1.8 mg/dl (1.8-2.4); Phosphorus 3.3 mg/dl (2.5-4.9); Potassium 3.5 mmol/L (3.5-5.1)
[2020-03-02] MEDS: VANCOMYCIN HCL 250 MG/5 ML SOLN PO SCH ×4 (08:30→21:08)
[2020-03-02] MEDS: RASPBERRY SYRUP 5 ML UDP PO SCH ×4 (08:32→21:09)
[2020-03-02] MEDS: POTASSIUM CHLORIDE 20 MEQ TABCR PO SCH ×3 (08:32→21:07)
[2020-03-02] MEDS: METOPROLOL TARTRATE 50 MG TAB PO SCH ×2 (08:33→21:08)
[2020-03-02] MEDS: ASCORBIC ACID 500 MG TAB PO SCH (08:33)
[2020-03-02] MEDS: POT PHOSPHATE MONOBASIC W/ SOD TAB PO SCH ×4 (08:33→21:06)
[2020-03-02] MEDS: MULTIVITAMIN TAB PO SCH (08:34)
[2020-03-02] MEDS: CALCIUM 600MG + VIT D 400 IU TAB PO SCH (08:34)
[2020-03-02] MEDS: THIAMINE HCL 100 MG TAB PO SCH (08:34)
[2020-03-02] MEDS: FLUTICASONE PROPIONATE NA SPR 16 GM BTL NAE SCH (08:36)
[2020-03-02] MEDS: FERROUS SULFATE 325 MG TAB PO SCH ×2 (08:36→17:08)
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
[2020-03-03] MEDS: metroNIDAZOLE 500 MG/100 ML BAG IV SCH ×3 (06:08→20:49)
[2020-03-03] MEDS: METOPROLOL TARTRATE 50 MG TAB PO SCH ×2 (08:19→20:55)
[2020-03-03] MEDS: FERROUS SULFATE 325 MG TAB PO SCH ×2 (08:20→17:36)
[2020-03-03] MEDS: ASCORBIC ACID 500 MG TAB PO SCH (08:20)
[2020-03-03] MEDS: POT PHOSPHATE MONOBASIC W/ SOD TAB PO SCH ×4 (08:20→20:50)
[2020-03-03] MEDS: MULTIVITAMIN TAB PO SCH (08:21)
[2020-03-03] MEDS: CALCIUM 600MG + VIT D 400 IU TAB PO SCH (08:21)
[2020-03-03] MEDS: THIAMINE HCL 100 MG TAB PO SCH (08:22)
[2020-03-03] MEDS: VANCOMYCIN HCL 250 MG/5 ML SOLN PO SCH ×4 (08:22→20:53)
[2020-03-03] MEDS: POTASSIUM CHLORIDE 20 MEQ TABCR PO SCH ×3 (08:22→20:54)
[2020-03-03] MEDS: RASPBERRY SYRUP 5 ML UDP PO SCH ×4 (08:22→20:52)
[2020-03-03] MEDS: FLUTICASONE PROPIONATE NA SPR 16 GM BTL NAE SCH (08:24)
--- NOTE | 2020-03-03 13:24 | Hospitalist Progress Note ---
Date of Service March 03, 2020 Assessment & Plan (1) C. difficile diarrhea: Presented with fever, altered mental status, diarrhea. Recent course of antibiotics for pneumonia + UTI. Started on vancomycin. Persistent diarrhea despite several days of vancomycin. CT abd & pelvis 02/28 demonstrated extensive bowel wall thickening consistent with colitis, no toxic megacolon, no evidence of perforated viscus. Discussed with GI. Increased vancomycin to 250 mg QID and added IV metronidazole. Diarrhea persists, but improving. Low fat, low dairy, low fiber diet. (2) Acute metabolic encephalopathy: Altered mental status at time of admission. LP negative. Probable encephalopathy secondary to infection. Worsening confusion & lethargy 02/27 and 02/28. Ammonia level 14 on 02/27, 23 on 02/28. Noted history of bipolar disorder and schizophrenia. Seemed to be hallucinating 02/27.. Delirium vs underlying psychotic disorder. Psychiatry asked for their input. 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 CT head negative. B12 and folic acid levels OK. Thiamine level pending; continue empiric thiamine replacement for now. Mental status improved. (3) Pneumonia: Treated for pneumonia prior to current hospitalization. Chest x-rays showed bilateral interstitial / reticulonodular infiltrates. Influenza A/B and BioFire Resp Panel negative. SARS-CoV-2 negative. Oxygenating well on RA. CT chest did not show any evidence of pneumonia. (4) Elevated troponin: EKG showed ST with nonspecific changes. Echo showed normal LVEF, no segmental wall motion abnormalities. Probable nonspecific elevation due to infection. (5) HTN (hypertension): Hemodynamically stable. Continue metoprolol. (6) Pulmonary nodule: 9 mm subsolid RML nodule noted on CT 02/29/20. Patient is a smoker. Follow-up CT in 3-6 months per guidelines. Pulmonary Medicine evaluation if any concerning changes. (7) Cirrhosis: Cirrhosis of liver with evidence of portal hypertension incidentally noted on CT at [facility] in January. No prior known history of hepatic disease. Patient denies heavy drinking. Seen by GI at [facility] who recommended outpatient GI follow-up. (8) Acute urinary retention: Bautista cath removed. Voiding without difficulty. (9) Anemia: Baseline Hgb 9.2 02/06/20. Hgb 9.6 02/22, fell as low as 8.8. Hgb 4/5 = 9.2. Anemia probably multifactorial. Underlying cirrhosis. No gross GI bleeding. Fe 31, transferrin 237, transferrin sat 9%. B12 and folate OK. Started Fe for iron deficiency anemia. Will need colonoscopy once acute problems have resolved. (10) Thrombocytopenia: Underlying cirrhosis. Platelet count 4/5 = 99,000. Follow. (11) Status post open reduction and internal fixation (ORIF) of fracture: Discussed status with Ortho at [facility]. Sutures removed. Toe touch weight-bearing. ROM. Immobilizer when out of bed. Follow-up x-ray 6 weeks postop. (12) Osteoporosis: History of femur fracture on 2 separate occasions. Imaging shows compression fractures of spine. Vitamin D level 17. Calcium + vitamin D replacement. (13) Vitamin D deficiency: Osteoporosis as noted above. Vitamin D level 17. Replace with 50,000 units weekly x 4 weeks, then ongoing maintenance dosing with periodic rechecks. (14) Hypokalemia: K as low as 2.9. Hypokalemia probably secondary to diarrhea. Receiving replacement. K 4/5 = 3.5. Follow. (15) Hypomagnesemia: Mg 1.4 on 02/23. Received replacement. Mg 4/5 = 1.8. Follow. (16) Hypophosphatemia: Phos 2.1 on .2. Received replacement. Phos 4/5 = 3.3. Follow. (17) DVT prophylaxis: Received SQ enoxaparin- stopped because of thrombocytopenia. SCD's. Ambulate as able (toe touch weight bearing LLE). (18) Discharge planning issues: Anticipated return to [facility] when medically stable. Medical follow-up with Dr. Redd. Orthopedics follow-up with Jovani Herman. Outpatient GI follow-up for cirrhosis and Fe deficiency anemia- will ask PCP to coordinate. Follow-up CT of chest and Pulmonary Medicine consultation if necessary- will ask PCP to coordinate. Admission and Anticipated Discharge Date Admission Date: February 24, 2020 Anticipated date of discharge: 02/28/20 Subjective Recheck for multiple problems. Patient seen in their room around 1030. Doing well. Out of bed in chair. No new concerns. Diarrhea improved. No abdominal pain, nausea, vomiting. Working with physical therapists. Review of Systems: Constitutional- no fever. Cardiac- no chest pain. Pulmonary- no cough or SOB. GI- as noted above. - no urinary symptoms. Otherwise, as noted above. Physical Exam Constitutional: no acute distress Respiratory: no respiratory distress Auscultation: lungs clear to auscultation bilaterally Cardiovascular: Rate/Rhythm: regular rate and regular rhythm Vessels: no JVD Extremities: + edema (trace pretibial); no calf tenderness Gastrointestinal (Abdomen): normal bowel sounds, soft, nontender, no hepatosplenomegaly Musculoskeletal: immobilizer applied to LLE Skin: no rashes, warm and dry Psychiatric: Orientation: alert and oriented x 3 Results & Data Results & Data ([facility]) Vital Signs (Past 12 Hours) Vital Signs Temp Pulse Pulse Resp BP BP Pulse Ox 03/03/20 12:47 37.0 C 71 18 99/49 L 94 03/03/20 08:00 36.2 C L 89 20 114/61 94 03/03/20 07:30 77 03/03/20 04:19 36.5 C 90 17 135/69 93 (1) Pneumonia Laterality: bilateral Lung location: upper lobe of lung Pneumonia type: due to unspecified organism Qualified Code(s): J18.9 - Pneumonia, unspecified organism
[2020-03-03] MEDS: ACETAMINOPHEN 325 MG TAB PO PRN (20:48)
[2020-03-04] MEDS: metroNIDAZOLE 500 MG/100 ML BAG IV SCH ×2 (05:43→12:29)
[2020-03-04 06:21] LABS: Hemoglobin 10.3 g/dL (12.0-16.0); Mean Corpuscular Hemoglobin 29.4 pg (25-34); Mean Corpuscular Hgb Conc 30.3 g/dL (32-36); Mean Corpuscular Volume 97.1 fL (80-100); RDW Coefficient of Variation 17.6 % (11.5-14.5); RDW Standard Deviation 62.3 fL (36.4-46.3); White Blood Count 3.58 K/uL (4.8-10.8)
[2020-03-04 06:31] LABS: Mean Platelet Volume 11.2 fL (7.4-10.4); Platelet Count 93 K/uL (130-400)
[2020-03-04 07:00] LABS: Albumin Level 2.4 gm/dl (3.4-5.0); BUN Creatinine Ratio 12.8 (10-20); Bilirubin Direct 0.3 mg/dl (0-0.2); Calcium 8.3 mg/dl (8.5-10.1); Creatinine Clr Calc Pharmacy 151.3 ml/min; Est GFR (African American) 126.2; Est GFR (Non-African American) 108.9; Magnesium 1.8 mg/dl (1.8-2.4)
[2020-03-04 07:03] LABS: Albumin Globulin Ratio 0.7 (0.9-2); Bilirubin,Total 0.7 mg/dl (0.2-1); Globulin 3.5 gm/dl (2.5-4.0); Phosphorus 3.6 mg/dl (2.5-4.9); Total Protein 5.9 gm/dl (6.4-8.2)
[2020-03-04] MEDS: RASPBERRY SYRUP 5 ML UDP PO SCH ×2 (08:12→12:28)
[2020-03-04] MEDS: VANCOMYCIN HCL 250 MG/5 ML SOLN PO SCH ×2 (08:12→12:29)
[2020-03-04] MEDS: ASCORBIC ACID 500 MG TAB PO SCH (08:12)
[2020-03-04] MEDS: MULTIVITAMIN TAB PO SCH (08:12)
[2020-03-04] MEDS: FLUTICASONE PROPIONATE NA SPR 16 GM BTL NAE SCH (08:12)
[2020-03-04] MEDS: METOPROLOL TARTRATE 50 MG TAB PO SCH (08:13)
[2020-03-04] MEDS: FERROUS SULFATE 325 MG TAB PO SCH (08:13)
[2020-03-04] MEDS: POT PHOSPHATE MONOBASIC W/ SOD TAB PO SCH ×2 (08:13→12:29)
[2020-03-04] MEDS: THIAMINE HCL 100 MG TAB PO SCH (08:13)
[2020-03-04] MEDS: POTASSIUM CHLORIDE 20 MEQ TABCR PO SCH ×2 (08:13→12:29)
[2020-03-04] MEDS: CALCIUM 600MG + VIT D 400 IU TAB PO SCH (08:13)
--- NOTE | 2020-03-04 13:36 | Hospitalist Progress Note ---
Date of Service March 04, 2020 Assessment & Plan (1) C. difficile diarrhea: Presented with fever, altered mental status, diarrhea. Recent course of antibiotics for pneumonia + UTI. Started on vancomycin. Had persistent diarrhea despite several days of vancomycin. CT abd & pelvis 02/28 demonstrated extensive bowel wall thickening consistent with colitis, no toxic megacolon, no evidence of perforated viscus. Discussed with GI. Increased vancomycin to 250 mg QID and added IV metronidazole with improvement. DC on vancomycin 125 mg QID to be continued until 03/08 to complete 14 day course of therapy. Low fat, low dairy, low fiber diet until diarrhea resolved. Benefits of probiotics controversial, but patient would like to try yogurt. (2) Acute metabolic encephalopathy: Altered mental status at time of admission. LP negative. Probable encephalopathy secondary to infection. Worsening confusion & lethargy 02/27 and 02/28. Seemed to be hallucinating 02/27. Ammonia level was 14 on 02/27 and 23 on 02/28. Noted history of bipolar disorder and schizophrenia. Delirium vs underlying psychotic disorder. Psychiatry asked for their input. They recommended discontinuation of Adderall. 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 CT head negative. B12 and folic acid levels OK. Thiamine level pending. Pt received empiric thiamine replacement. Mental status improved. (3) Pneumonia: Treated for pneumonia prior to current hospitalization. Chest x-rays showed bilateral interstitial / reticulonodular infiltrates. Influenza A/B and BioFire Resp Panel negative. SARS-CoV-2 negative. Oxygenating well on RA. CT chest did not show any evidence of pneumonia. (4) Elevated troponin: EKG showed ST with nonspecific changes. Echo showed normal LVEF, no segmental wall motion abnormalities. Probable nonspecific elevation due to infection. (5) HTN (hypertension): Hemodynamically stable. Continue metoprolol. (6) Pulmonary nodule: 9 mm subsolid RML nodule noted on CT 02/29/20. Patient is a smoker. Follow-up CT in 3-6 months per guidelines. Pulmonary Medicine evaluation if any concerning changes. Need for follow-up discussed with patient and her . (7) Cirrhosis: Cirrhosis of liver with evidence of portal hypertension incidentally noted on CT at [facility] in January. No prior known history of hepatic disease. Patient denies heavy drinking. Seen by GI at [facility] who recommended outpatient GI follow-up. Need for follow-up discussed with patient and her . (8) Acute urinary retention: Bautista cath removed. Voiding without difficulty. (9) Anemia: Baseline Hgb 9.2 02/06/20. Hgb 9.6 02/22, fell as low as 8.8. Hgb 4/5 = 9.2. Anemia probably multifactorial. Underlying cirrhosis. No gross GI bleeding. Fe 31, transferrin 237, transferrin sat 9%. B12 and folate OK. Started Fe for iron deficiency anemia. Will need colonoscopy once acute problems have resolved. Need for follow-up discussed with patient and her . (10) Thrombocytopenia: Underlying cirrhosis. Platelet count 4/5 = 99,000. Follow. (11) Status post open reduction and internal fixation (ORIF) of fracture: Discussed status with Ortho at [facility]. Sutures removed. Toe touch weight-bearing. ROM. Immobilizer when out of bed. Follow-up x-ray 6 weeks postop. (12) Osteoporosis: History of femur fracture on 2 separate occasions. Imaging shows compression fractures of spine. Vitamin D level 17. Calcium + vitamin D replacement. (13) Vitamin D deficiency: Osteoporosis as noted above. Vitamin D level 17. Replace with 50,000 units weekly x 4 weeks, then ongoing maintenance dosing with periodic rechecks. (Received 1st dose of 50,000 units on 03/02,) (14) Hypokalemia: K as low as 2.9. Hypokalemia probably secondary to diarrhea. Receiving replacement. K 4/5 = 3.5. Follow. (15) Hypomagnesemia: Mg 1.4 on 02/23. Hypomagnesemia probably secondary to diarrhea. Received replacement. Mg 4/5 = 1.8. Follow. (16) Hypophosphatemia: Phos 2.1 on .. Received replacement. Phos 4/5 = 3.3. Follow. (17) DVT prophylaxis: Received SQ enoxaparin- stopped because of thrombocytopenia. SCD's. Ambulate as able (toe touch weight bearing LLE). (18) Discharge planning issues: Arrangements being made for return to [facility]. Medical follow-up with Dr. Redd. Orthopedics follow-up with Jovani Herman at [facility] around week of 03/24. Outpatient GI follow-up for cirrhosis and Fe deficiency anemia- will ask PCP to coordinate. Follow-up CT of chest and Pulmonary Medicine consultation if necessary- will ask PCP to coordinate. Admission and Anticipated Discharge Date Admission Date: February 24, 2020 Anticipated date of discharge: 02/28/20 Subjective Recheck for multiple problems. Patient seen in their room around 1100. Doing well. Diarrhea improved. No abdominal pain, nausea, vomiting. Working with physical therapists. Anxious to get back to [facility] to resume her recovery there. Review of Systems: Constitutional- no fever. Cardiac- no chest pain. Pulmonary- no cough or SOB. GI- as noted above. - no urinary symptoms. Otherwise, as noted above. Physical Exam Constitutional: no acute distress Respiratory: no respiratory distress Auscultation: lungs clear to auscult ation bilaterally Cardiovascular: Rate/Rhythm: regular rate and regular rhythm Vessels: no JVD Extremities: + edema (trace pretibial); no calf tenderness Gastrointestinal (Abdomen): normal bowel sounds, soft, nontender, no hepatosplenomegaly Musculoskeletal: immobilizer applied to LLE Skin: no rashes, warm and dry Psychiatric: Orientation: alert and oriented x 3 Results & Data Results & Data ([facility]) Vital Signs (Past 12 Hours) Vital Signs Temp Pulse Resp BP Pulse Ox 03/04/20 07:18 36.9 C 86 18 121/66 94 (1) Pneumonia Laterality: bilateral Lung location: upper lobe of lung Pneumonia type: due to unspecified organism Qualified Code(s): J18.9 - Pneumonia, unspecified organism
--- NOTE | 2020-03-04 14:15 | Discharge Summary ---
Date of Service Date of Admission: 02/24/20 Date of Discharge: 03/04/20 Admission HPI Per Admitting Provider The patient is a 60 yo F who was admitted to [facility] for inpatient rehab on 02/13/2020 following discharge from [facility]. She had been admitted there on 02/06/2020 as a transfer from [facility]. She had a mechanical fall at home and was found to have a comminuted left distal shaft fracture and then transferred to [facility] because of significant anemia and thrombocytopenia. On 02/08/2020 she went to the OR for a removal of her deep hardware (from prior hip prosthesis) and an open reduction and internal fixation of her distal left femur fracture. A post-operative fever was persistent and she was found to have aspiration pneumonia and UTI during her admission. She was seen by ID and treated with cefepime and flagyl. These agents were continued for an additional 6 days beyond discharge with the last doses being given at [facility] on 02/20/2020. The patient was doing well clinically at [facility] with progress notes reflecting stable vital signs. She had borderline low blood pressure in the high 90s systolic and no evidence of fever for approximately 1 week and was participating in exercises. reports that she was self-treating her diarrhea at some point with OTC anti-diarrheals, but cannot pinpoint when this was. She had a chest x-ray performed on 02/15 that did not reveal evidence of pneumonia. Then she underwent another chest x-ray at [facility] on 02/22 because of a fever. This chest x-ray revealed new patchy infiltrates in bilateral upper lungs and right pericardiac region likely of infectious etiology, new since the prior examination on 02/15. She has an indwelling Bautista in her urine did not show obvious signs of infection on the urine studies performed at [facility]. Per her , the Bautista was placed at [facility] for a failed trial of void. She was found to be altered this morning (02/23) and was sent to the ER for further work-up. In the ER the patient's chest x-ray did not show any acute process. An EKG revealed sinus tachycardia at a rate of 110. With a history of cirrhosis and ammonia level was pulled and slightly elevated at 51. White blood cell count was 13. Hemoglobin was 9.2. Lactic acid was negative. Potassium was 3 and replacement was given. Troponin was elevated at 0.262. The patient denied any chest pain. A flu swab was negative. A lumbar puncture was performed that did not show evidence of meningitis. Her urinalysis did not show infection. C. difficile testing was positive. She was empirically treated with IV fluids as well as IV vancomycin and IV Levaquin. She was also given oral vancomycin. She was also given some Tylenol for fever. She was admitted to the hospital service for further work-up and management. Principal Diagnosis C diff colitis OTHER ACUTE / NEW DIAGNOSES: encephalopathy hypokalemia hypomagnesemia hypophosphatemia iron deficiency anemia vitamin D deficiency pulmonary nodule Discharge Data Allergies Allergy/AdvReac Type Severity Reaction Status Date / Time Penicillins Allergy Severe ANAPHYLAXIS Verified 02/24/20 09:43 hydrocodone AdvReac Intermediate Nausea Unverified 02/24/20 09:43 [From Lorcet (hydrocodone)] Consultations 02/24/20 11:11 ED Decision to Admit Stat 02/24/20 14:20 Consult Case Management - Discharge Planning Routine 02/24/20 15:24 Consult Infectious Diseases Routine 02/25/20 12:35 Consult General Surgery Stat 02/28/20 15:58 Consult Psychiatry Routine Ordered Studies 02/29/20 11:46 CT abd pelvis wo con Urgent 02/29/20 12:00 CT head/brain wo con Urgent 02/29/20 12:29 CT chest wo con Urgent Hospital Course (1) C. difficile diarrhea: Presented with fever, altered mental status, diarrhea. Recent course of antibiotics for pneumonia + UTI. Started on vancomycin. Had persistent diarrhea despite several days of vancomycin. CT abd & pelvis 02/28 demonstrated extensive bowel wall thickening consistent with colitis, no toxic megacolon, no evidence of perforated viscus. Discussed with GI. Increased vancomycin to 250 mg QID and added IV metronidazole with improvement. DC on vancomycin 125 mg QID to be continued until 03/08 to complete 14 day course of therapy. Low fat, low dairy, low fiber diet until diarrhea resolved. Benefits of probiotics controversial, but patient would like to try yogurt. (2) Acute metabolic encephalopathy: Altered mental status at time of admission. LP negative. Probable encephalopathy secondary to infection. Worsening confusion & lethargy 02/27 and 02/28. Seemed to be hallucinating 02/27. Ammonia level was 14 on 02/27 and 23 on 02/28. Noted history of bipolar disorder and schizophrenia. Delirium vs underlying psychotic disorder. Psychiatry asked for their input. They recommended discontinuation of Adderall. 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 CT head negative. B12 and folic acid levels OK. Thiamine level pending. Pt received empiric thiamine replacement. Mental status improved. (3) Pneumonia: Treated for pneumonia prior to current hospitalization. Chest x-rays showed bilateral interstitial / reticulonodular infiltrates. Influenza A/B and BioFire Resp Panel negative. SARS-CoV-2 negative. Oxygenating well on RA. CT chest did not show any evidence of pneumonia. (4) Elevated troponin: EKG showed ST with nonspecific changes. Echo showed normal LVEF, no segmental wall motion abnormalities. Probable nonspecific elevation due to infection. (5) HTN (hypertension): Hemodynamically stable. Continue metoprolol. (6) Pulmonary nodule: 9 mm subsolid RML nodule noted on CT 02/29/20. Patient is a smoker. Follow-up CT in 3-6 months per guidelines. Pulmonary Medicine evaluation if any concerning changes. Need for follow-up discussed with patient and her . (7) Cirrhosis: Cirrhosis of liver with evidence of portal hypertension incidentally noted on CT at [facility] in January. No prior known history of hepatic disease. Patient denies heavy drinking. Seen by GI at [facility] who recommended outpatient GI follow-up. Need for follow-up discussed with patient and her . (8) Acute urinary retention: Bautista cath removed. Voiding without difficulty. (9) Anemia: Baseline Hgb 9.2 02/06/20. Hgb 9.6 02/22, fell as low as 8.8. Hgb 03/02 = 9.2. Anemia probably multifactorial. Underlying cirrhosis. No gross GI bleeding. Fe 31, transferrin 237, transferrin sat 9%. B12 and folate OK. Started Fe for iron deficiency anemia. Will need colonoscopy once acute problems have resolved. Need for follow-up discussed with patient and her . (10) Thrombocytopenia: Underlying cirrhosis. Platelet count 03/02 = 99,000. Follow. (11) Status post open reduction and internal fixation (ORIF) of fracture: Discussed status with Ortho at [facility]. Sutures removed. Toe touch weight-bearing. ROM. Immobilizer when out of bed. Follow-up x-ray 6 weeks postop. (12) Osteoporosis: History of femur fracture on 2 separate occasions. Imaging shows compression fractures of spine. Vitamin D level 17. Calcium + vitamin D replacement. (13) Vitamin D deficiency: Osteoporosis as noted above. Vitamin D level 17. Replace with 50,000 units weekly x 4 weeks, then ongoing maintenance dosing with periodic rechecks. (Received 1st dose of 50,000 units on 03/02,) (14) Hypokalemia: K as low as 2.9. Hypokalemia probably secondary to diarrhea. Receiving replacement. K /5 = 3.5. Follow. (15) Hypomagnesemia: Mg 1.4 on 02/23. Hypomagnesemia probably secondary to diarrhea. Received replacement. Mg /5 = 1.8. Follow. (16) Hypophosphatemia: Phos 2.1 on .. Received replacement. Phos /5 = 3.3. Follow. (17) DVT prophylaxis: Received SQ enoxaparin- stopped because of thrombocytopenia. SCD's. Ambulate as able (toe touch weight bearing LLE). (18) Discharge planning issues: Arrangements being made for return to [facility]. Medical follow-up with Dr. Redd. Orthopedics follow-up with Jovani Herman at [facility] around week of 03/24. Outpatient GI follow-up for cirrhosis and Fe deficiency anemia- will ask PCP to coordinate. Follow-up CT of chest and Pulmonary Medicine consultation if necessary- will ask PCP to coordinate. Total Time Total Time Spent Total Time Spent (In Minutes): 50 Discharge Plan Discharge Items Patient Disposition: Transfer Inpatient Rehab Fac Reason For Visit: fever, diarrhea, confusion Discharge Diagnosis: C diff colitis encephalopathy Activity: Per Instructions section Weightbearing Comment: toe touch LLE Non-emergency contact: Primary Care Provider, Hospitalist and Surgeon Call non-emergency contact if: you have any medication questions, your symptoms worsen and your temperature is above 101 Follow-up/Referrals: [facility] [Primary Care Provider] - Diet: Heart Healthy, Low Fiber, Low Fat and Lactose Intolerant Diet Comment: Yogurt BID. Boost Breeze BID. Addtl Attending Provider Instructions: Fall precautions. Skin precautions. Delirium precautions. VTE prophylaxis: SCD's until ambulatory. Activity: toe touch weight bearing LLE Knee immobilizer LLE. Please note that patient is very hard of hearing and needs to wear her hearing aids when interacting with other. Please follow basic metabolic profile, magnesium, phosphorus CBC twice a week until stable, then as clinically indicated. Please arrange for follow-up appointments: Jovani Herman at [facility] around the week of 03/24. Dr. Redd for follow-up after discharge from your facility. Thank you for receiving this patient in transfer. Please call if you have any questions. Alberto Lehman Pending Studies at Discharge: Yes (thiamine level) Stand-Alone Forms: My [facility] Skilled Items Patient informed of condition?: Yes DNR: Yes Discharge Level of Care: Acute rehab Communicable Disease: Yes (C difficile) Discharge Prognosis: Improving Lines: None Urinary Catheter: No Medications and DC Order Prescriptions: New ergocalciferol (vitamin D2) 1,250 mcg (50,000 unit) Capsule 50,000 unit PO Q7D Qty: 3 RF: 0 ferrous sulfate 325 mg (65 mg iron) Tablet,Delayed Release (Dr/Ec) 325 mg PO BIDM 30 Days Qty: 60 RF: 0 vancomycin 125 mg capsule 125 mg PO QID 5 Days Qty: 20 RF: 0 Continued ascorbic acid (vitamin C) 500 mg Tablet 500 mg PO DAILY RF: 0 calcium carbonate-vitamin D3 [Calcium 500 + D] 500 mg(1,250mg) -200 unit Tablet 1 tab PO DAILY RF: 0 multivitamin Tablet 1 tab PO DAILY RF: 0 acetaminophen [Tylenol] 325 mg Tablet 650 mg PO Q4H PRN (Reason: fever/pain) RF: 0 acetaminophen-codeine 300-30 mg tablet 1 - 2 tab PO Q4H PRN (Reason: Pain) RF: 0 olopatadine 0.1 % Drops 1 drp OPB BID RF: 0 albuterol sulfate 90 mcg/actuation Hfa Aerosol Inhaler 2 puff INHALATION QID PRN (Reason: Wheezing) RF: 0 fluticasone propionate 50 mcg/actuation Kiana,Suspension 2 spray INTRANASAL DAILY RF: 0 loratadine 10 mg Tablet 10 mg PO DAILY PRN (Reason: Allergy Symptoms) RF: 0 metoprolol tartrate 50 mg tablet 50 mg PO BID RF: 0 Discontinued dextroamphetamine-amphetamine 10 mg tablet 10 mg PO BID RF: 0 ipratropium-albuterol 0.5 mg-3 mg(2.5 mg base)/3 mL Solution For Nebulization 3 ml INHALATION Q4H PRN (Reason: SOB) RF: 0 sennosides-docusate sodium [Senokot-S] 8.6-50 mg Tablet 1 tab-cap PO QDL PRN (Reason: Constipation) RF: 0 bisacodyl 10 mg Suppository 10 mg WA DAILY PRN (Reason: Constipation) RF: 0 docusate sodium 100 mg Capsule 100 mg PO BID RF: 0 polyethylene glycol 3350 [Miralax] 17 gram/dose Powder 17 g PO QDL PRN (Reason: Constipation) RF: 0 ondansetron 4 mg Tablet,Disintegrating 4 mg PO Q6H PRN (Reason: nausea) RF: 0 enoxaparin 40 mg/0.4 mL Syringe 40 mg SUBCUT DAILY RF: 0 sodium phosphates 19-7 gram/197 mL Enema 133 ml WA DAILY PRN (Reason: Constipation) RF: 0 lisinopril 10 mg Tablet 10 mg PO DAILY RF: 0 hydrochlorothiazide 25 mg tablet 25 mg PO DAILY RF: 0 Admission Data Admit Date/Time: 02/24/20 11:21 Attending Provider: Alberto Lehman Admit Provider: Prem Medrano [facility] Other Providers: [facility] ; Yaquelin Harry ; Prem Medrano ; Mercedez Valencia ; Celestine Martinez ; Laine Palafox
--- NOTE | 2020-03-04 14:28 | Communication Note ---
Date of Service: March 04, 2020 Attending at [facility] given report by phone. PCP Dr. Redd given update by phone and copied on DC summary. Need for follow-up of cirrhosis, Fe deficiency anemia, and pulmonary nodule discussed.
--- NOTE | 2020-03-10 15:12 | Communication Note ---
Date of Service: March 10, 2020 Results from reference lab: thiamine level = 61 Patient currently hospitalized at [facility] and they were notified of results.
== END 2020-03-04 16:35 | DRG 371 ==
LOC: ED 08:44 → SUATTDRO 11:21 → 2S 11:21 → 2N 03-03 11:12

== ENCOUNTER 2020-03-17 11:53 | Inpatient (IN) ==
[2020-03-17] MEDS ORDERED: SODIUM CHLORIDE 0.9% 1000ML 1,000 ML IV ONE (12:25)
--- NOTE | 2020-03-17 12:29 | Emergency Department Note ---
History of Present Illness General Chief complaint: Fever Time Seen by Provider: 03/17/20 12:06 Source: patient Mode of arrival: ambulatory History of Present Illness Provider complaint: Fever Onset (ago): day(s) Location: head Severity: moderate Exacerbated By: + none Associated symptoms: + chest pain (When she coughs), + cough and + weakness; no shortness of breath This is a 60-year-old female who was recently discharged from [facility] presenting with fever. The patient was discharged 3 days ago. Her was caring for her at home. She has since developed fever. She has a cough but she states that it is a chronic cough. Her is not coughing. She was previously diagnosed with C. difficile and she has significant diarrhea which is very watery and loose. She complains of pain to her leg and she did have a recent femur fracture repair. This is the same pain that she has been having and not a new pain. She denies shortness of breath. She does complain of generalized weakness. She was brought in by ambulance. Home Medications Home Medications Medication Instructions Recorded Confirmed Type acetaminophen [Tylenol] 650 mg PO Q4H PRN 02/24/20 03/17/20 History acetaminophen-codeine 1 - 2 tab PO Q4H PRN 02/24/20 03/17/20 History albuterol sulfate 2 puff INHALATION QID PRN 02/24/20 03/17/20 History ascorbic acid (vitamin C) 500 mg PO DAILY 02/24/20 03/17/20 History calcium carbonate-vitamin D3 1 tab PO DAILY 02/24/20 03/17/20 History [Calcium 500 + D] fluticasone propionate 2 spray INTRANASAL DAILY 02/24/20 03/17/20 History loratadine 10 mg PO DAILY PRN 02/24/20 03/17/20 History metoprolol tartrate 50 mg PO BID 02/24/20 03/17/20 History multivitamin 1 tab PO DAILY 02/24/20 03/17/20 History olopatadine 1 drp OPB BID 02/24/20 03/17/20 History ergocalciferol (vitamin D2) 50,000 unit PO Q7D #3 cap 03/04/20 03/17/20 Rx ferrous sulfate 325 mg PO BIDM 30 Days #60 tab 03/04/20 03/17/20 Rx enoxaparin 40 mg SUBCUT DAILY 03/17/20 03/17/20 History Allergies Allergy/AdvReac Type Severity Reaction Status Date / Time Penicillins Allergy Severe ANAPHYLAXIS Verified 03/17/20 12:32 hydrocodone AdvReac Intermediate Nausea Unverified 03/17/20 12:32 [From Lorcet (hydrocodone)] Past Med/Surg History Medical History Bipolar disorder Cirrhosis Depression History of CVA (cerebrovascular accident) Osteoporosis Pulmonary nodule 9 mm RML subsolid nodule CT chest 02/29/20. F/U CT recommended 3-6 months Schizophrenia Vitamin D deficiency Surgical History History of appendectomy History of shoulder surgery History of total hip replacement femur fracture one month later with repair, both in 2007 Status post open reduction and internal fixation (ORIF) of fracture Family History Father Myocardial infarction Mother Colorectal cancer Social History Preferred Language: French Communication Ability: Impaired marital status: Current Living Situation: Spouse Feels Safe at Home: Yes Smoking Status: Former smoker Tobacco Type: cigarettes ; Second Hand Exposure: No ; Hx Alcohol Use: No Hx Substance Use: No Review of Systems See HPI for pertinent positives & negatives. and A total of 10 systems reviewed and were otherwise negative Physical Exam Vital Signs Vital Signs - 24 hr 03/17/20 11:53 03/17/20 12:03 03/17/20 12:25 Temperature 37.7 C H Temperature Source Oral Pulse Rate 99 H 97 H Pulse Rate from SpO2 Sensor 94 H Respiratory Rate 16 17 Respiratory Effort / Characteristics Non-Labored Respiratory Depth Normal Respiratory Pattern Regular Blood Pressure 97/53 L 97/53 L Blood Pressure Mean 67 66 Pulse Oximetry 95 92 94 Oxygen Delivery Method Room Air Room Air Sepsis Recent Fever Within 48 Hours Yes Sepsis New/Unexplained Change in Mental Status Yes Sepsis Action Taken by Nursing Physician Notified 03/17/20 12:30 03/17/20 13:09 03/17/20 13:30 Temperature Temperature Source Pulse Rate 94 H 94 H 94 H Pulse Rate from SpO2 Sensor 95 H 94 H 94 H Respiratory Rate 17 25 H 19 Respiratory Effort / Characteristics Respiratory Depth Respiratory Pattern Blood Pressure 92/53 L 110/63 118/61 Blood Pressure Mean 57 78 90 Pulse Oximetry 92 98 95 Oxygen Delivery Method Sepsis Recent Fever Within 48 Hours Sepsis New/Unexplained Change in Mental Status Sepsis Action Taken by Nursing 03/17/20 13:49 03/17/20 14:00 03/17/20 14:15 Temperature Temperature Source Pulse Rate 91 H 91 H 90 Pulse Rate from SpO2 Sensor 91 H 92 H 90 Respiratory Rate 17 17 16 Respiratory Effort / Characteristics Respiratory Depth Respiratory Pattern Blood Pressure 114/59 L 113/55 L 108/56 L Blood Pressure Mean 72 80 69 Pulse Oximetry 96 97 98 Oxygen Delivery Method Sepsis Recent Fever Within 48 Hours Sepsis New/Unexplained Change in Mental Status Sepsis Action Taken by Nursing 03/17/20 14:30 03/17/20 14:45 03/17/20 15:00 Temperature Temperature Source Pulse Rate 94 H 94 H 94 H Pulse Rate from SpO2 Sensor 94 H 95 H 95 H Respiratory Rate 20 18 18 Respiratory Effort / Characteristics Respiratory Depth Respiratory Pattern Blood Pressure 115/60 119/63 118/60 Blood Pressure Mean 78 83 75 Pulse Oximetry 97 99 98 Oxygen Delivery Method Sepsis Recent Fever Within 48 Hours Sepsis New/Unexplained Change in Mental Status Sepsis Action Taken by Nursing 03/17/20 15:15 03/17/20 15:21 Temperature Temperature Source Pulse Rate 101 H 93 H Pulse Rate from SpO2 Sensor 101 H 97 H Respiratory Rate 20 23 Respiratory Effort / Characteristics Respiratory Depth Respiratory Pattern Blood Pressure 99/57 L 106/66 Blood Pressure Mean 62 76 Pulse Oximetry 96 95 Oxygen Delivery Method Sepsis Recent Fever Within 48 Hours Sepsis New/Unexplained Change in Mental Status Sepsis Action Taken by Nursing Constitutional: Vital signs reviewed. Hypotensive. Eyes: Pupils are equal round reactive to light. Conjunctiva are noninjected. ENT: Pharynx is clear without erythema or exudate. Mucous membranes are moist. Neck supple without meningeal signs. Respiratory: Clear to auscultation bilaterally. Breath sounds are equal bilaterally. Cardiovascular: Regular rate and rhythm. No rubs or gallops. GI: Soft, nondistended with mild suprapubic tenderness. Bowel sounds are present. Covered and watery diarrhea. Musculoskeletal: No calf tenderness bilaterally. Integumentary: No cyanosis. or jaundice. Neurological: The patient is awake and alert. No focal deficits. Psychiatric: Normal affect. Not anxious appearing. Course Administered Medications Discontinued Medications Hydromorphone HCl (Dilaudid) 0.5 mg IV NOW STA Stop: 03/17/20 15:40 Last Admin: 03/17/20 15:46 Dose: 0.5 mg Documented by: [id number] Hydromorphone HCl (Dilaudid) Confirm Administered Dose 0.5 mg .ROUTE .STK-MED ONE Stop: 03/17/20 15:38 Last Admin: 03/17/20 15:48 Dose: Not Given Documented by: [id number] Sodium Chloride (Nss 1000ml) 1,000 mls @ 999 mls/hr IV .Q1H1M ONE Stop: 03/17/20 13:25 Last Infusion: 03/17/20 14:50 Dose: 0 mls/hr Documented by: [id number] Admin: 03/17/20 13:45 Dose: 999 mls/hr Documented by: [id number] Magnesium Sulfate/Dextrose (Magnesium Sulfate / D5w) 1 gm in 100 mls @ 100 mls/hr IV ONE ONE Stop: 03/17/20 15:44 Last Infusion: 03/17/20 16:49 Dose: 0 mls/hr Documented by: [id number] Admin: 03/17/20 15:31 Dose: 100 mls/hr Documented by: [id number] Potassium Chloride (K Ash / Wtr) 10 meq in 100 mls @ 100 mls/hr IV ONE ONE Stop: 03/17/20 15:59 Last Infusion: 03/17/20 16:49 Dose: 0 mls/hr Documented by: [id number] Admin: 03/17/20 15:32 Dose: 100 mls/hr Documented by: [id number] Raspberry (Raspberry) 5 ml PO NOW STA Stop: 03/17/20 14:31 Last Admin: 03/17/20 15:31 Dose: 5 ml Documented by: [id number] Vancomycin HCl (Vancomycin Hcl) 125 mg PO NOW STA Stop: 03/17/20 14:21 Last Admin: 03/17/20 15:31 Dose: 125 mg Documented by: [id number] Critical Care Time Critical Care Time: Yes Total Critical Care Time: 35 I have personally spent approximately 35 minutes of critical care time in the direct management of this patient. This includes bedside care, interpretation of diagnostic studies, and testing, discussion with consultants, patient, and family members, and other required patient management activities. These minutes are in excess of all separately billable procedures. Medical Decision Making Differential Diagnosis Sepsis, dehydration, pneumonia, COVID-19, C. difficile Medical Records Attestation: I reviewed the patient's medical records. The patient was admitted to the hospital last month. She was discharged to [facility] on the seventh. She had a femur fracture which was repaired and she subsequently developed an infection. She presented to our hospital with altered mental status and fever. She had a significant work-up including lumbar puncture. She was discovered to have C. difficile and placed on vancomycin. Her troponin was also elevated and she had an echocardiogram which showed no wall motion abnormalities. The elevated troponin was thought to be related to significant infection. Home Medications Current Medication List: was personally reviewed by me Laboratory Data Attestation: I reviewed the patient's lab results. Result diagrams: 03/17/20 13:29 03/17/20 12:54 Lab Results 03/17/20 03/17/20 03/17/20 Range/Units 12:30 12:54 12:54 WBC Cancelled RBC Cancelled Hgb Cancelled Hct Cancelled MCV Cancelled MCH Cancelled MCHC Cancelled RDW Std Deviation Cancelled RDW Coeff of Dewayne Cancelled Plt Count Cancelled MPV Cancelled Immature Gran % (Auto) Cancelled Neut % (Auto) Cancelled Lymph % (Auto) Cancelled Steele % (Auto) Cancelled Eos % (Auto) Cancelled Baso % (Auto) Cancelled Immature Gran # (Auto) Cancelled Neut # (Auto) Cancelled Lymph # (Auto) Cancelled Steele # (Auto) Cancelled Eos # (Auto) Cancelled Baso # (Auto) Cancelled Absolute Nucleated RBC Cancelled Nucleated RBC % (auto) Cancelled Neutrophils % (Manual) Cancelled Band Neutrophils % Cancelled Lymphocytes % (Manual) Cancelled Prolymphocyte % Cancelled Reactive Lymphs % (Man) Cancelled Monocytes % (Manual) Cancelled Eosinophils % (Manual) Cancelled Basophils % (Manual) Cancelled Metamyelocytes % (Man) Cancelled Myelocytes % (Man) Cancelled Promyelocytes % (Man) Cancelled Blast Cells % (Manual) Cancelled Plasma Cell % (Manual) Cancelled Other Cells % Cancelled Nucleated RBC % Cancelled Neutrophils # (Manual) Cancelled Band Neutrophils # Cancelled Total Absolute Neuts Cancelled Lymphocytes # (Manual) Cancelled Prolymphocyte # Cancelled Reactive Lymphs # Cancelled Total Abs Lymphocytes Cancelled Monocytes # (Manual) Cancelled Eosinophils # (Manual) Cancelled Basophils # (Manual) Cancelled Metamyelocytes # (Man) Cancelled Myelocytes # (Manual) Cancelled Promyelocytes # (Man) Cancelled Blast Cells # (Man) Cancelled Plasma Cell # (Manual) Cancelled Other Cells # Cancelled Nucleated RBCs # (Man) Cancelled Hypersegmented Neuts Cancelled Hyposegmented Neuts Cancelled Hypogranular Neuts Cancelled Large Granular Lymphs Cancelled # Lrg Granular Lymphs Cancelled Hairy Cells Cancelled Smudge Cells Cancelled Toxic Granulation Cancelled Toxic Vacuolation Cancelled Dohle Bodies Cancelled Baldev Rods Cancelled Platelet Estimate Cancelled Hypogranular Platelets Cancelled Clumped Platelets Cancelled Giant Platelets Cancelled Platelet Satelliting Cancelled RBC Morphology Cancelled Polychromasia Cancelled Hypochromasia Cancelled Poikilocytosis Cancelled Basophilic Stippling Cancelled Anisocytosis Cancelled Microcytosis Cancelled Macrocytosis Cancelled Spherocytes Cancelled Pappenheimer Bodies Cancelled Sickle Cells Cancelled Target Cells Cancelled Tear Drop Cells Cancelled Ovalocytes Cancelled Stomatocytes Cancelled Carey-Linton Hall Bodies Cancelled Echinocytes Cancelled Acanthocytes (Spur) Cancelled Rouleaux Cancelled RBC Agglutinates Cancelled Schistocytes Cancelled RBC Morph Comment Cancelled ESR (0-21) mm/hr Sezary Cell Cancelled PT (9.0-12.0) Seconds INR (0.9-1.1) APTT (21.0-31.0) Seconds PTT Ratio Sodium 128 L (136-145) mmol/L Potassium 3.5 (3.5-5.1) mmol/L Chloride 99 (98-107) mmol/L Carbon Dioxide 21 (21-32) mmol/L Anion Gap 8.0 (3-11) BUN 33 H (7-18) mg/dl Creatinine 1.09 (0.6-1.2) mg/dl Est Cr Clr Drug Dosing 49.4 ml/min Est GFR ( Amer) 63.9 Est GFR (Non-Af Amer) 55.1 BUN/Creatinine Ratio 30.2 H (10-20) Glucose 113 H (70-99) mg/dl Osmolality (280-300) mOsm/kg Lactate (0.4-2.0) mmol/L Calcium 7.8 L (8.5-10.1) mg/dl Magnesium 1.8 (1.8-2.4) mg/dl Ferritin (8-388) ng/ml Total Bilirubin 0.8 (0.2-1) mg/dl AST 42 H (15-37) U/L ALT 28 (12-78) U/L Alkaline Phosphatase 71 (45-117) U/L Ammonia (11-32) umol/L Total Creatine Kinase (26-192) U/L Troponin I < 0.015 (0-0.045) ng/ml C-Reactive Protein (0-0.29) mg/dl Total Protein 5.7 L (6.4-8.2) gm/dl Albumin 2.2 L (3.4-5.0) gm/dl Globulin 3.5 (2.5-4.0) gm/dl Albumin/Globulin Ratio 0.6 L (0.9-2) Specimen Hemolysis Urine Color Urine Appearance (Clear) Urine pH (4.5-7.5) Ur Specific [place] (1.000-1.030) Urine Protein (Negative) Urine Glucose (UA) (Negative) Urine Ketones (Negative) Urine Blood (Negative) Urine Nitrite (Negative) Urine Bilirubin (Negative) Urine Urobilinogen (Negative) Ur Leukocyte Esterase (Negative) Urine WBC (Auto) (0-5) /hpf Urine RBC (Auto) (0-4) /hpf U Hyaline Cast (Auto) (0-5) /lpf U Epithel Cells (Auto) (0-5) /lpf Urine Bacteria (Auto) (Negative) Ur Renal Epithelial Cell Granular Casts (0) /lpf Urine Yeast (None Prsent) Stl C. diff Tox B Gene Positive Cdiff Gene H (Neg) Stl C.difficile Tox A&B Positive Cdiff Toxin A* (Negative) Influenza Type A (PCR) (Neg) Influenza Type B (PCR) (Neg) 03/17/20 03/17/20 03/17/20 Range/Units 12:54 12:54 12:54 WBC RBC Hgb Hct MCV MCH MCHC RDW Std Deviation RDW Coeff of Dewayne Plt Count MPV Immature Gran % (Auto) Neut % (Auto) Lymph % (Auto) Steele % (Auto) Eos % (Auto) Baso % (Auto) Immature Gran # (Auto) Neut # (Auto) Lymph # (Auto) Steele # (Auto) Eos # (Auto) Baso # (Auto) Absolute Nucleated RBC Nucleated RBC % (auto) Neutrophils % (Manual) Band Neutrophils % Lymphocytes % (Manual) Prolymphocyte % Reactive Lymphs % (Man) Monocytes % (Manual) Eosinophils % (Manual) Basophils % (Manual) Metamyelocytes % (Man) Myelocytes % (Man) Promyelocytes % (Man) Blast Cells % (Manual) Plasma Cell % (Manual) Other Cells % Nucleated RBC % Neutrophils # (Manual) Band Neutrophils # Total Absolute Neuts Lymphocytes # (Manual) Prolymphocyte # Reactive Lymphs # Total Abs Lymphocytes Monocytes # (Manual) Eosinophils # (Manual) Basophils # (Manual) Metamyelocytes # (Man) Myelocytes # (Manual) Promyelocytes # (Man) Blast Cells # (Man) Plasma Cell # (Manual) Other Cells # Nucleated RBCs # (Man) Hypersegmented Neuts Hyposegmented Neuts Hypogranular Neuts Large Granular Lymphs # Lrg Granular Lymphs Hairy Cells Smudge Cells Toxic Granulation Toxic Vacuolation Dohle Bodies Baldev Rods Platelet Estimate Hypogranular Platelets Clumped Platelets Giant Platelets Platelet Satelliting RBC Morphology Polychromasia Hypochromasia Poikilocytosis Basophilic Stippling Anisocytosis Microcytosis Macrocytosis Spherocytes Pappenheimer Bodies Sickle Cells Target Cells Tear Drop Cells Ovalocytes Stomatocytes Carey-Linton Hall Bodies Echinocytes Acanthocytes (Spur) Rouleaux RBC Agglutinates Schistocytes RBC Morph Comment ESR (0-21) mm/hr Sezary Cell PT 17.8 H (9.0-12.0) Seconds INR 1.7 H (0.9-1.1) APTT 32.8 H (21.0-31.0) Seconds PTT Ratio 1.2 Sodium (136-145) mmol/L Potassium (3.5-5.1) mmol/L Chloride (98-107) mmol/L Carbon Dioxide (21-32) mmol/L Anion Gap (3-11) BUN (7-18) mg/dl Creatinine (0.6-1.2) mg/dl Est Cr Clr Drug Dosing ml/min Est GFR ( Amer) Est GFR (Non-Af Amer) BUN/Creatinine Ratio (10-20) Glucose (70-99) mg/dl Osmolality (280-300) mOsm/kg Lactate (0.4-2.0) mmol/L Calcium (8.5-10.1) mg/dl Magnesium (1.8-2.4) mg/dl Ferritin 202.9 (8-388) ng/ml Total Bilirubin (0.2-1) mg/dl AST (15-37) U/L ALT (12-78) U/L Alkaline Phosphatase (45-117) U/L Ammonia 48.0 H (11-32) umol/L Total Creatine Kinase 215 H (26-192) U/L Troponin I (0-0.045) ng/ml C-Reactive Protein 18.90 H (0-0.29) mg/dl Total Protein (6.4-8.2) gm/dl Albumin (3.4-5.0) gm/dl Globulin (2.5-4.0) gm/dl Albumin/Globulin Ratio (0.9-2) Specimen Hemolysis Urine Color Urine Appearance (Clear) Urine pH (4.5-7.5) Ur Specific [place] (1.000-1.030) Urine Protein (Negative) Urine Glucose (UA) (Negative) Urine Ketones (Negative) Urine Blood (Negative) Urine Nitrite (Negative) Urine Bilirubin (Negative) Urine Urobilinogen (Negative) Ur Leukocyte Esterase (Negative) Urine WBC (Auto) (0-5) /hpf Urine RBC (Auto) (0-4) /hpf U Hyaline Cast (Auto) (0-5) /lpf U Epithel Cells (Auto) (0-5) /lpf Urine Bacteria (Auto) (Negative) Ur Renal Epithelial Cell Granular Casts (0) /lpf Urine Yeast (None Prsent) Stl C. diff Tox B Gene (Neg) Stl C.difficile Tox A&B (Negative) Influenza Type A (PCR) (Neg) Influenza Type B (PCR) (Neg) 03/17/20 03/17/20 03/17/20 Range/Units 13:00 13:20 13:28 WBC RBC Hgb Hct MCV MCH MCHC RDW Std Deviation RDW Coeff of Dewayne Plt Count MPV Immature Gran % (Auto) Neut % (Auto) Lymph % (Auto) Steele % (Auto) Eos % (Auto) Baso % (Auto) Immature Gran # (Auto) Neut # (Auto) Lymph # (Auto) Steele # (Auto) Eos # (Auto) Baso # (Auto) Absolute Nucleated RBC Nucleated RBC % (auto) Neutrophils % (Manual) Band Neutrophils % Lymphocytes % (Manual) Prolymphocyte % Reactive Lymphs % (Man) Monocytes % (Manual) Eosinophils % (Manual) Basophils % (Manual) Metamyelocytes % (Man) Myelocytes % (Man) Promyelocytes % (Man) Blast Cells % (Manual) Plasma Cell % (Manual) Other Cells % Nucleated RBC % Neutrophils # (Manual) Band Neutrophils # Total Absolute Neuts Lymphocytes # (Manual) Prolymphocyte # Reactive Lymphs # Total Abs Lymphocytes Monocytes # (Manual) Eosinophils # (Manual) Basophils # (Manual) Metamyelocytes # (Man) Myelocytes # (Manual) Promyelocytes # (Man) Blast Cells # (Man) Plasma Cell # (Manual) Other Cells # Nucleated RBCs # (Man) Hypersegmented Neuts Hyposegmented Neuts Hypogranular Neuts Large Granular Lymphs # Lrg Granular Lymphs Hairy Cells Smudge Cells Toxic Granulation Toxic Vacuolation Dohle Bodies Baldev Rods Platelet Estimate Hypogranular Platelets Clumped Platelets Giant Platelets Platelet Satelliting RBC Morphology Polychromasia Hypochromasia Poikilocytosis Basophilic Stippling Anisocytosis Microcytosis Macrocytosis Spherocytes Pappenheimer Bodies Sickle Cells Target Cells Tear Drop Cells Ovalocytes Stomatocytes Carey-Linton Hall Bodies Echinocytes Acanthocytes (Spur) Rouleaux RBC Agglutinates Schistocytes RBC Morph Comment ESR (0-21) mm/hr Sezary Cell PT (9.0-12.0) Seconds INR (0.9-1.1) APTT (21.0-31.0) Seconds PTT Ratio Sodium (136-145) mmol/L Potassium (3.5-5.1) mmol/L Chloride (98-107) mmol/L Carbon Dioxide (21-32) mmol/L Anion Gap (3-11) BUN (7-18) mg/dl Creatinine (0.6-1.2) mg/dl Est Cr Clr Drug Dosing ml/min Est GFR ( Amer) Est GFR (Non-Af Amer) BUN/Creatinine Ratio (10-20) Glucose (70-99) mg/dl Osmolality (280-300) mOsm/kg Lactate 2.7 H* (0.4-2.0) mmol/L Calcium (8.5-10.1) mg/dl Magnesium (1.8-2.4) mg/dl Ferritin (8-388) ng/ml Total Bilirubin (0.2-1) mg/dl AST (15-37) U/L ALT (12-78) U/L Alkaline Phosphatase (45-117) U/L Ammonia (11-32) umol/L Total Creatine Kinase (26-192) U/L Troponin I (0-0.045) ng/ml C-Reactive Protein (0-0.29) mg/dl Total Protein (6.4-8.2) gm/dl Albumin (3.4-5.0) gm/dl Globulin (2.5-4.0) gm/dl Albumin/Globulin Ratio (0.9-2) Specimen Hemolysis Urine Color Dark Yellow Urine Appearance Clear (Clear) Urine pH 5.0 (4.5-7.5) Ur Specific [place] 1.023 (1.000-1.030) Urine Protein 1+ H (Negative) Urine Glucose (UA) Negative (Negative) Urine Ketones Negative (Negative) Urine Blood Trace H (Negative) Urine Nitrite Negative (Negative) Urine Bilirubin 1+ H (Negative) Urine Urobilinogen Negative (Negative) Ur Leukocyte Esterase Trace H (Negative) Urine WBC (Auto) 1-5 (0-5) /hpf Urine RBC (Auto) 0-4 (0-4) /hpf U Hyaline Cast (Auto) 1-5 (0-5) /lpf U Epithel Cells (Auto) >30 H (0-5) /lpf Urine Bacteria (Auto) Negative (Negative) Ur Renal Epithelial Cell Not Reportable Granular Casts 1-5 H (0) /lpf Urine Yeast Budding A (None Prsent) Stl C. diff Tox B Gene (Neg) Stl C.difficile Tox A&B (Negative) Influenza Type A (PCR) Neg for Influ A (Neg) Influenza Type B (PCR) Neg for Influ B (Neg) 03/17/20 03/17/20 03/17/20 Range/Units 13:29 13:29 13:29 WBC 11.29 H RBC 4.11 L Hgb 12.5 Hct 38.0 MCV 92.5 MCH 30.4 MCHC 32.9 RDW Std Deviation 58.7 H RDW Coeff of Dewayne 17.1 H Plt Count 107 L MPV Immature Gran % (Auto) 1.2 Neut % (Auto) 78.9 Lymph % (Auto) 6.5 Steele % (Auto) 13.0 Eos % (Auto) 0.3 Baso % (Auto) 0.1 Immature Gran # (Auto) 0.13 H Neut # (Auto) 8.92 H Lymph # (Auto) 0.73 L Steele # (Auto) 1.47 H Eos # (Auto) 0.03 Baso # (Auto) 0.01 Absolute Nucleated RBC Nucleated RBC % (auto) Neutrophils % (Manual) Band Neutrophils % Lymphocytes % (Manual) Prolymphocyte % Reactive Lymphs % (Man) Monocytes % (Manual) Eosinophils % (Manual) Basophils % (Manual) Metamyelocytes % (Man) Myelocytes % (Man) Promyelocytes % (Man) Blast Cells % (Manual) Plasma Cell % (Manual) Other Cells % Nucleated RBC % Neutrophils # (Manual) Band Neutrophils # Total Absolute Neuts Lymphocytes # (Manual) Prolymphocyte # Reactive Lymphs # Total Abs Lymphocytes Monocytes # (Manual) Eosinophils # (Manual) Basophils # (Manual) Metamyelocytes # (Man) Myelocytes # (Manual) Promyelocytes # (Man) Blast Cells # (Man) Plasma Cell # (Manual) Other Cells # Nucleated RBCs # (Man) Hypersegmented Neuts Hyposegmented Neuts Hypogranular Neuts Large Granular Lymphs # Lrg Granular Lymphs Hairy Cells Smudge Cells Toxic Granulation 2+ Toxic Vacuolation 1+ Dohle Bodies 1+ Baldev Rods Platelet Estimate Decreased L Hypogranular Platelets Clumped Platelets Giant Platelets Platelet Satelliting RBC Morphology Polychromasia Hypochromasia Poikilocytosis Basophilic Stippling Anisocytosis Microcytosis Macrocytosis Spherocytes Pappenheimer Bodies Sickle Cells Target Cells Tear Drop Cells Ovalocytes Stomatocytes Carey-Linton Hall Bodies Echinocytes Acanthocytes (Spur) Rouleaux RBC Agglutinates Schistocytes RBC Morph Comment ESR 23 H (0-21) mm/hr Sezary Cell PT (9.0-12.0) Seconds INR (0.9-1.1) APTT (21.0-31.0) Seconds PTT Ratio Sodium (136-145) mmol/L Potassium (3.5-5.1) mmol/L Chloride (98-107) mmol/L Carbon Dioxide (21-32) mmol/L Anion Gap (3-11) BUN (7-18) mg/dl Creatinine (0.6-1.2) mg/dl Est Cr Clr Drug Dosing ml/min Est GFR ( Amer) Est GFR (Non-Af Amer) BUN/Creatinine Ratio (10-20) Glucose (70-99) mg/dl Osmolality 276 L (280-300) mOsm/kg Lactate (0.4-2.0) mmol/L Calcium (8.5-10.1) mg/dl Magnesium (1.8-2.4) mg/dl Ferritin (8-388) ng/ml Total Bilirubin (0.2-1) mg/dl AST (15-37) U/L ALT (12-78) U/L Alkaline Phosphatase (45-117) U/L Ammonia (11-32) umol/L Total Creatine Kinase (26-192) U/L Troponin I (0-0.045) ng/ml C-Reactive Protein (0-0.29) mg/dl Total Protein (6.4-8.2) gm/dl Albumin (3.4-5.0) gm/dl Globulin (2.5-4.0) gm/dl Albumin/Globulin Ratio (0.9-2) Specimen Hemolysis Urine Color Urine Appearance (Clear) Urine pH (4.5-7.5) Ur Specific [place] (1.000-1.030) Urine Protein (Negative) Urine Glucose (UA) (Negative) Urine Ketones (Negative) Urine Blood (Negative) Urine Nitrite (Negative) Urine Bilirubin (Negative) Urine Urobilinogen (Negative) Ur Leukocyte Esterase (Negative) Urine WBC (Auto) (0-5) /hpf Urine RBC (Auto) (0-4) /hpf U Hyaline Cast (Auto) (0-5) /lpf U Epithel Cells (Auto) (0-5) /lpf Urine Bacteria (Auto) (Negative) Ur Renal Epithelial Cell Granular Casts (0) /lpf Urine Yeast (None Prsent) Stl C. diff Tox B Gene (Neg) Stl C.difficile Tox A&B (Negative) Influenza Type A (PCR) (Neg) Influenza Type B (PCR) (Neg) Imaging Data Radiologist's Impression: XR chest 1V portable CLINICAL HISTORY: SEPSIS COMPARISON STUDY: Chest CT February 29, 2020. FINDINGS: No pneumothorax or pleural effusion is noted. Bullous emphysema is noted. Interstitial thickening is similar to prior exams. Mild left basilar opacity is present. Old right-sided rib fractures are noted. There is no evidence for pulmonary edema. There is mild cardiomegaly. IMPRESSION: 1. Mild left basilar opacity which favors atelectasis. However, an infectious process could appear similar. 2. Otherwise, unchanged appearance of the chest. Emphysema. Stable interstitial thickening. ACT 112: Negative or not required by law. Electronically signed by: Brian Hill M.D. 03/17/2020 1:59 PM ECG Data Attestation: I personally reviewed and interpreted this ECG as follows: Indication: + chest pain Rate (beats per minute): 99 Rhythm: + normal sinus ECG Intervals/blocks: + Prolonged QT ECG ST segments: no ST elevation ECG Findings: no PVCs Blood Pressure Blood Pressure Findings: Low blood pressure Blood Pressure Disposition: further management by hospitalist SERENA Boyce I did evaluate the patient as noted above. The patient is presenting with fever and severe diarrhea. She is hypotensive on arrival. She does appear very dehydrated. The patient was placed in a negative pressure room and respiratory and contact isolation. IV access was established. I did treat the patient with normal saline IV. Stool samples were sent for testing for C. difficile and stool cultures. C. difficile antigen testing is positive. The patient was placed on a continuous ekg monitor tech. Cardiac monitoring: Indication: Hypotension and chest pain Rate and rhythm: Normal sinus rhythm rate of 99. I did order and personally review the patient's 12-lead EKG as described above. She has no acute ischemic changes. She does have a prolonged QT. I did order and personally reviewed the images of the patient's chest x-ray as described above. There is a left basilar opacity which favors atelectasis. I did order a urine analysis. She does have budding yeast. Flu PCR testing was sent. I did order and review the patient's blood work as noted in the electronic medical record. Her white count is slightly elevated. Sodium is 128 and calcium is 7.8. Ammonia is 48. Lactic acid is 2.7. She has mild thrombocytopenia. Patient did respond to fluids. Her blood pressure stabilized. I did discuss the case with the nurse case manager and hospitalist. She will be hospitalized for further care and evaluation. I did start the patient in the ED on vancomycin p.o. Impression & Plan Acute hypotension, Hyperammonemia, Thrombocytopenia, Acute hyponatremia, Acute dehydration, Hypocalcemia, C. difficile colitis, Failure of outpatient treatment Discharge Plan Visit Data Chief Complaint: Fever ED Provider: Jonah Geller Discharge Problem: Acute hypotension, Hyperammonemia, Thrombocytopenia, Acute hyponatremia, Acute dehydration, Hypocalcemia, C. difficile colitis, Failure of outpatient treatment Patient Disposition: Being Evaluated by Hospitalist Condition: Fair Discharge Instructions Interventions: ED Discharge Assessment Last Done: 03/17/20 16:12
[2020-03-17 13:21] LABS: INR 1.7 (0.9-1.1); Partial Thromboplastin Ratio 1.2; Partial Thromboplastin Time 32.8 Seconds (21.0-31.0); Prothrombin Time 17.8 Seconds (9.0-12.0)
[2020-03-17 13:34] LABS: Appearance Urine Clear (Clear); Bacteria Urine Automated Negative (Negative); Blood Urine Trace (Negative); Color Urine Dark Yellow; Epithelial Cell Urine Auto >30 /lpf (0-5); Glucose Urine UA Negative (Negative); Ketones Urine Negative (Negative); Leukocyte Esterase Urine Trace (Negative); Nitrite Urine Negative (Negative); Protein Urine 1+ (Negative); RBC Urine Automated 0-4 /hpf (0-4); Specific Gravity Urine 1.023 (1.000-1.030); Urobilinogen Urine Negative (Negative)
[2020-03-17 13:39] LABS: Alanine Aminotransferase 28 U/L (12-78); Albumin Globulin Ratio 0.6 (0.9-2); Albumin Level 2.2 gm/dl (3.4-5.0); Alkaline Phosphatase 71 U/L (45-117); Aspartate Aminotransferase 42 U/L (15-37); BUN Creatinine Ratio 30.2 (10-20); Bilirubin,Total 0.8 mg/dl (0.2-1); Blood Urea Nitrogen 33 mg/dl (7-18); Calcium 7.8 mg/dl (8.5-10.1); Carbon Dioxide 21 mmol/L (21-32); Chloride 99 mmol/L (98-107); Creatinine Clr Calc Pharmacy 49.4 ml/min; Est GFR (African American) 63.9; Est GFR (Non-African American) 55.1; Globulin 3.5 gm/dl (2.5-4.0); Glucose 113 mg/dl (70-99); Magnesium 1.8 mg/dl (1.8-2.4); Potassium 3.5 mmol/L (3.5-5.1); Sodium 128 mmol/L (136-145); Total Protein 5.7 gm/dl (6.4-8.2); Troponin I < 0.015 ng/ml (0-0.045)
[2020-03-17 13:42] LABS: Bilirubin Urine 1+ (Negative); Ictotest Urine Positive (Negative)
[2020-03-17 13:54] LABS: Mean Corpuscular Hgb Conc 32.9 g/dL (32-36)
[2020-03-17 13:57] LABS: Hemoglobin 12.5 g/dL (12.0-16.0); Mean Corpuscular Hemoglobin 30.4 pg (25-34); Mean Corpuscular Volume 92.5 fL (80-100); RDW Coefficient of Variation 17.1 % (11.5-14.5); RDW Standard Deviation 58.7 fL (36.4-46.3); Red Blood Count 4.11 M/uL (4.2-5.4); White Blood Count 11.29 K/uL (4.8-10.8)
--- NOTE | 2020-03-17 14:01 | XRay Report ---
XR chest 1V portable CLINICAL HISTORY: SEPSIS COMPARISON STUDY: Chest CT February 29, 2020. FINDINGS: No pneumothorax or pleural effusion is noted. Bullous emphysema is noted. Interstitial thic kening is similar to prior exams. Mild left basilar opacity is present. Old right-sided rib fractures are noted. There is no evidence for pulmonary edema. There is mild cardiomegaly. IMPRESSION: 1. Mild left basilar opacity which favors atelectasis. However, an infectious process could appear si milar. 2. Otherwise, unchanged appearance of the chest. Emphysema. Stable interstitial thickening. ACT 112: Negative or not required by law. Electronically signed by: Brian Hill M.D. 03/17/2020 1:59 PM
[2020-03-17 14:11] LABS: Influenza A virus by PCR Neg for Influ A (Neg); Influenza B virus by PCR Neg for Influ B (Neg)
[2020-03-17 14:18] LABS: Basophils # (auto) 0.01 K/uL (0-0.2); Basophils % (auto) 0.1 %; Dohle Bodies 1+; Eosinophils # (auto) 0.03 K/uL (0-0.5); Eosinophils % (auto) 0.3 %; Immature Granulocytes # (auto) 0.13 K/uL (0.00-0.02); Immature Granulocytes % (auto) 1.2 %; Lymphocytes # (auto) 0.73 K/uL (1.2-3.4); Lymphocytes % (auto) 6.5 %; Monocytes # (auto) 1.47 K/uL (0.11-0.59); Neutrophils # (auto) 8.92 K/uL (1.4-6.5); Neutrophils % (auto) 78.9 %; Platelet Count 107 K/uL (130-400); Platelet Estimate Decreased (Normal); Toxic Granulation 2+; Toxic Vacuolation 1+
[2020-03-17] MEDS ORDERED: VANCOMYCIN HCL 125 MG/2.5ML SOLN PO STA (14:20)
[2020-03-17] MEDS ORDERED: RASPBERRY SYRUP 5 ML UDP PO STA (14:30)
[2020-03-17] MEDS ORDERED: MAGNESIUM SULFATE / D5W 1 GM/100 ML BAG IV ONE (14:45)
[2020-03-17 14:54] LABS: Cdiff Antigen Positive
[2020-03-17 14:56] LABS: Cdiff Toxin A+B Positive Cdiff Toxin (Negative)
[2020-03-17] MEDS ORDERED: POTASSIUM CHLORIDE / WTR 10 MEQ/100 ML PLCT IV ONE (15:00)
[2020-03-17] MEDS ORDERED: IBUPROFEN 200 MG TAB PO PRN (15:25)
[2020-03-17] MEDS ORDERED: HYDROmorphone INJ 0.5 MG/0.5 ML SYR ONE (15:37)
[2020-03-17] MEDS ORDERED: HYDROmorphone INJ 0.5 MG/0.5 ML SYR IV STA (15:39)
--- NOTE | 2020-03-17 15:51 | History & Physical Report ---
Date of Service March 17, 2020 Assessment & Plan (1) C. difficile diarrhea: Dehydration from Clostridium difficile diarrhea Recurrent Clostridium infection -This is a 60 year old with recent hospitalizations and discharged from [facility] and then had diarrhea. as per ED notes, there was also concern for fever at home and chronic cough and discomfort from a fracture repair of femur of lower extremity in January. Influenza negative and after discussing with Emergency room physician that there was no need at this time for airborne precautions. However, patient with history of C.difficile in the recent past (positive test for C.difficile by PCR and toxin in 02/24/2020) and despite recent treatment from previous hospitalization the patient is again on 03/17/2020 found to be C.difficile positive by PCR and toxin. Patient was initiated on oral vancomycin by emergency doctor. Patient's labs also suggesting dehydration. Patient also has history of cirrhosis and elevated ammonia levels of 48. Patient was able to answer questions appropriately but at times appeared lethargic and quite often hospitalist had to communicate with her very loudly to get her responses. she had tenderness of right side of abdomen. Patient denies problems with vomiting, denies shortness of breath and denies chest pain. -Patient had CT scan on previous hospitalization with Extensive significance predominantly large bowel wall thickening could either represent portal colopathy with more limited presence of portal enteropathy versus ongoing enterocolitis given the history of C. difficile infection -obtain gastroenterology and infectious disease consult for recurrent C.difficile Acute Kidney Injury Elevated Lactic acid -discharge creatinine from last admission around 0.45, this admission creatinine is 1, admission lactic acid of 2.7 -give IV fluids, monitor renal function and lactic acid levels Possible pneumonia, rule out COVID-19 -admission CXR: Mild left basilar opacity which favors atelectasis. However, an infectious process could appear similar. Otherwise, unchanged appearance of the chest. Emphysema. Stable interstitial thickening. -in my review of lung imaging it is difficult to say that there is a new pneumonia and patient's confirmed C.difficile with symptoms is a clear obstacle to empirically treat without worrying about GI consequences -have been informed by Dr. Harry, patient's previous hospitalist who has seen patient in the past and she is concerned that there are indeed new lung infiltrates and she advises COVID-19 testing. will continue on hospital haque airborne/contact isolation. will empirically give respiratory antibiotic Aztreonam and BID doxycycline (has anaphylactic penicillin allergy), and swab for MRSA, send procalcitonin (2) Cirrhosis: -as per review of 03/04/2020 Aris Pablo discharge summary that patient had CT scan revealing cirrhosis of liver with evidence of portal hypertension and and suggested that this was incidentally noted on CT at [facility] in January 2020 as a new finding -Patient had CT scan on previous hospitalization with Suspected hepatic fibrosis/cirrhosis with portal hypertension evidenced by splenomegaly and ascites -admission with right quadrant pain, Hyperammonemia of 48 on 03/17/2020 with INR 1.7 confirms cirrhosis -at this time, would not start lactulose or rifaximin because patient is being treated for diarrhea from C.difficile. will plan to send hepatitis panel -obtain gastroenterology consult Anemia Thrombocytopenia -patient's platelets from recent hospital admission is around 80 K to 90 K. is 100 K on 03/17/2020. monitor CBC and platelets -admission Hgb of 12 is higher than baseline and likely from hemoconcentration from dehydration DVT prophylaxis: SCDs because of Thrombocytopenia Hypertension -on metoprolol History of Left femur fracture with ORIF repair History of compression fractures of spine Osteoporosis Vitamin D deficiency -repaired in January 2020 in [facility] -pain control medication prn -PT/OT evaluation -was on Vitamin D supplements and Calcium supplements from last admission for Vitamin D deficiency and Osteoporosis give Vitamin D supplements, check Vitamin D levels Pulmonary nodule -9 mm subsolid RML nodule noted on CT 02/29/2020. Patient is a smoker. Follow-up CT in 3-6 months per guidelines. History of Mood disorder -as per outpatient rceords Full Code History of Present Illness This is a 60 year old with recent hospitalizations and discharged from [facility] and then had diarrhea. as per ED notes, there was also concern for fever at home and chronic cough and discomfort from a fracture repair of femur of lower extremity in January. Influenza negative and after discussing with Emergency room physician that there was no need at this time for airborne precautions. However, patient with history of C.difficile in the recent past (positive test for C.difficile by PCR and toxin in 02/24/2020) and despite recent treatment from previous hospitalization the patient is again on 03/17/2020 found to be C.difficile positive by PCR and toxin. Patient was initiated on oral vancomycin by emergency doctor. Patient's labs also suggesting dehydration. Patient also has history of cirrhosis and elevated ammonia levels of 48. Patient was able to answer questions appropriately but at times appeared lethargic and quite often hospitalist had to communicate with her very loudly to get her responses. she had tenderness of right side of abdomen. Patient denies problems with vomiting, denies shortness of breath and denies chest pain. Allergies: Patient reports an anaphylaxis reaction to penicillin Family History In the emergency room, patient denied family history of health problems Primary Care Provider: Jon Redd MD Allergies Allergy/AdvReac Type Severity Reaction Status Date / Time Penicillins Allergy Severe ANAPHYLAXIS Verified 03/17/20 12:32 hydrocodone AdvReac Intermediate Nausea Unverified 03/17/20 12:32 [From Lorcet (hydrocodone)] Home Medications Home Medications Medication Instructions Recorded Confirmed Type acetaminophen [Tylenol] 650 mg PO Q4H PRN 02/24/20 03/17/20 History acetaminophen-codeine 1 - 2 tab PO Q4H PRN 02/24/20 03/17/20 History albuterol sulfate 2 puff INHALATION QID PRN 02/24/20 03/17/20 History ascorbic acid (vitamin C) 500 mg PO DAILY 02/24/20 03/17/20 History calcium carbonate-vitamin D3 1 tab PO DAILY 02/24/20 03/17/20 History [Calcium 500 + D] fluticasone propionate 2 spray INTRANASAL DAILY 02/24/20 03/17/20 History loratadine 10 mg PO DAILY PRN 02/24/20 03/17/20 History metoprolol tartrate 50 mg PO BID 02/24/20 03/17/20 History multivitamin 1 tab PO DAILY 02/24/20 03/17/20 History olopatadine 1 drp OPB BID 02/24/20 03/17/20 History ergocalciferol (vitamin D2) 50,000 unit PO Q7D #3 cap 03/04/20 03/17/20 Rx ferrous sulfate 325 mg PO BIDM 30 Days #60 tab 03/04/20 03/17/20 Rx enoxaparin 40 mg SUBCUT DAILY 03/17/20 03/17/20 History Past Med/Surg History Medical History Bipolar disorder Cirrhosis Depression History of CVA (cerebrovascular accident) Osteoporosis Pulmonary nodule 9 mm RML subsolid nodule CT chest 02/29/20. F/U CT recommended 3-6 months Schizophrenia Vitamin D deficiency Surgical History History of appendectomy History of shoulder surgery History of total hip replacement femur fracture one month later with repair, both in 2007 Status post open reduction and internal fixation (ORIF) of fracture Family History Father Myocardial infarction Mother Colorectal cancer Social History Preferred Language: Korean Communication Ability: Effective Occupational Health Coordinator Required: No Beliefs That Will Affect Care: None marital status: Current Living Situation: Spouse Feels Safe at Home: Yes Safety Concerns: Feels Safe At This Time Smoking Status: Former smoker Tobacco Type: cigarettes ; Second Hand Exposure: No ; Hx Alcohol Use: No Hx Substance Use: No Review of Systems Review of Systems: All systems reviewed & are unremarkable except as noted in HPI & below Physical Exam Constitutional: + frail appearing Eyes: PERRL, conjunctivae normal, anicteric sclerae EOM intact bilaterally ENMT: external ear and nose normal, oropharynx normal Neck: normal visual inspection Respiratory: normal respiratory effort, lungs clear to auscultation Cardiovascular: Rate/Rhythm: regular rate and regular rhythm Gastrointestinal (Abdomen): Percussion/Palpation: + abdomen tender (right quadrant tenderness) Musculoskeletal: Head/Neck/Chest: normocephalic Neurologic: PERRL, EOMI, accommodation nl, no face palsy, no dysarthria Psychiatric: Orientation: alert, oriented to person, oriented to place, oriented to time and cooperative Results & Data Results & Data ([facility]) Vital Signs (Past 12 Hours) Vital Signs Temp Pulse Resp BP Pulse Ox 03/17/20 15:00 94 H 18 118/60 98 03/17/20 14:45 94 H 18 119/63 99 03/17/20 14:30 94 H 20 115/60 97 03/17/20 14:15 90 16 108/56 L 98 03/17/20 14:00 91 H 17 113/55 L 97 03/17/20 13:49 91 H 17 114/59 L 96 03/17/20 13:30 94 H 19 118/61 95 03/17/20 13:09 94 H 25 H 110/63 98 03/17/20 12:30 94 H 17 92/53 L 92 03/17/20 12:25 94 03/17/20 12:03 97 H 17 97/53 L 92 03/17/20 11:53 37.7 C H 99 H 16 97/53 L 95 Code Status & VTE Plan VTE Prophylaxis Plan VTE Prophylaxis will be ordered: Yes
[2020-03-17 15:59] LABS: C Reactive Protein 18.9 mg/dl (0-0.29); Ferritin 202.9 ng/ml (8-388)
--- NOTE | 2020-03-17 16:10 | Pharmacy Report ---
ED Pharmacist Progress Note - ED Pharmacist Progress Note Date of Service:: March 17, 2020
[2020-03-17] MEDS ORDERED: SODIUM CHLORIDE 0.9% 1000ML 500 ML IV ONE (17:04)
[2020-03-17] MEDS: AZTREONAM 1,000 MG in DEXTROSE 5% 100 ML IV SCH (18:41)
[2020-03-17] MEDS: FERROUS SULFATE 325 MG TAB PO SCH (18:42)
[2020-03-17] MEDS ORDERED: SODIUM CHLORIDE 0.9% 1000ML 1,000 ML IV SCH (19:00)
[2020-03-17 19:24] LABS: Creatinine Urine Random 91.8 mg/dl; Urine Potassium 21.3 mmol/L
[2020-03-17] MEDS: DOXYCYCLINE HYCLATE 100 MG in DEXTROSE 5% 100 ML IV SCH (19:51)
[2020-03-17] MEDS: METOPROLOL TARTRATE 50 MG TAB PO SCH (21:14)
[2020-03-17] MEDS: RASPBERRY SYRUP 5 ML UDP PO SCH (21:14)
[2020-03-17] MEDS: VANCOMYCIN HCL 125 MG/2.5ML SOLN PO SCH (21:15)
[2020-03-18] MEDS: AZTREONAM 1,000 MG in DEXTROSE 5% 100 ML IV SCH ×2 (01:22→09:58)
[2020-03-18 06:04] LABS: Hematocrit (blood only) 39.9 % (37-47); Hemoglobin 12.8 g/dL (12.0-16.0); Mean Corpuscular Hemoglobin 29.6 pg (25-34); Mean Corpuscular Hgb Conc 32.1 g/dL (32-36); Mean Corpuscular Volume 92.4 fL (80-100); Platelet Count 160 K/uL (130-400); RDW Standard Deviation 58.2 fL (36.4-46.3); Red Blood Count 4.32 M/uL (4.2-5.4); White Blood Count 9.09 K/uL (4.8-10.8)
[2020-03-18 06:14] LABS: INR 1.7 (0.9-1.1); Prothrombin Time 17.7 Seconds (9.0-12.0)
[2020-03-18] MEDS: RASPBERRY SYRUP 5 ML UDP PO SCH ×4 (06:14→21:00)
[2020-03-18] MEDS: VANCOMYCIN HCL 125 MG/2.5ML SOLN PO SCH ×2 (06:17→10:01)
[2020-03-18 06:26] LABS: Basophils # (auto) 0.01 K/uL (0-0.2); Basophils % (auto) 0.1 %; Dohle Bodies 1+; Echinocytes 1+; Eosinophils % (auto) 2.2 %; Giant Platelets 1+; Immature Granulocytes # (auto) 0.06 K/uL (0.00-0.02); Immature Granulocytes % (auto) 0.7 %; Lymphocytes # (auto) 0.63 K/uL (1.2-3.4); Lymphocytes % (auto) 6.9 %; Monocytes # (auto) 1.34 K/uL (0.11-0.59); Monocytes % (auto) 14.7 %; Neutrophils # (auto) 6.85 K/uL (1.4-6.5); Neutrophils % (auto) 75.4 %; Ovalocytes 1+; Toxic Granulation 3+; Toxic Vacuolation 2+
[2020-03-18 06:42] LABS: BUN Creatinine Ratio 34.9 (10-20); Calcium 7.4 mg/dl (8.5-10.1); Creatinine Clr Calc Pharmacy 86.8 ml/min; Est GFR (African American) 113.6; Potassium 3.3 mmol/L (3.5-5.1)
[2020-03-18 06:48] LABS: Albumin Globulin Ratio 0.5 (0.9-2); Bilirubin,Total 0.8 mg/dl (0.2-1); Globulin 3.8 gm/dl (2.5-4.0); Total Protein 5.8 gm/dl (6.4-8.2)
[2020-03-18] MEDS ORDERED: CALCIUM GLUCONATE 10% 1,000 MG in SODIUM CHLORIDE 0.9% 50 ML IV STA (07:13)
[2020-03-18] MEDS ORDERED: SODIUM CHLORIDE 0.9% 1000ML 1,000 ML IV SCH (07:15)
[2020-03-18] MEDS: POTASSIUM CHLORIDE / WTR 10 MEQ/100 ML PLCT IV SCH ×2 (07:36→10:01)
[2020-03-18] MEDS: METOPROLOL TARTRATE 50 MG TAB PO SCH ×2 (07:38→20:56)
[2020-03-18] MEDS: DOXYCYCLINE HYCLATE 100 MG in DEXTROSE 5% 100 ML IV SCH (07:44)
[2020-03-18 07:45] LABS: Phosphorus 1.9 mg/dl (2.5-4.9)
[2020-03-18 07:46] LABS: Vitamin D, 25 Hydrox 27.7 ng/ml (30-100)
[2020-03-18] MEDS: MULTIVITAMIN TAB PO SCH (07:46)
[2020-03-18 07:47] LABS: Hepatitis B Surface Ab Quant < 3.10 mIU/mL (>or=10mIU/mL Immune); Hepatitis B Surface Antibody Non-Immune
[2020-03-18] MEDS: FERROUS SULFATE 325 MG TAB PO SCH ×2 (07:48→16:33)
[2020-03-18 07:57] LABS: Hepatitis B Surface Antigen Neg (Neg)
[2020-03-18 08:25] LABS: Hepatitis C IgG 13Yrs+Old_Rflx Neg (Neg)
[2020-03-18] MEDS ORDERED: CALCIUM 600MG + VIT D 400 IU TAB PO SCH (09:00)
[2020-03-18] MEDS ORDERED: ASCORBIC ACID 500 MG TAB PO SCH (09:00)
[2020-03-18] MEDS ORDERED: ENOXAPARIN INJ 40 MG/0.4 ML SYR SQ SCH (09:00)
[2020-03-18] MEDS ORDERED: IOVERSOL 100ml IV PRN (09:23)
--- NOTE | 2020-03-18 09:46 | CT Scan Report ---
CT chest w con CT DOSE: 1278.93 mGycm HISTORY: Pneumonia rule out new pneumonia TECHNIQUE: Multiaxial CT images of the chest were performed following the intravenous administration of contrast. A dose lowering technique was utilized adhering to the principles of ALARA. COMPARISON: 02/29/2020 FINDINGS: Diffuse emphysematous change throughout both hemithoraces. Superimposed peribronchial and p arenchymal prominence both lung bases diminished compared to the prior study. Scattered bulla are pre sent bilaterally and are stable. There does not appear to be evidence for an acute or superimposed infiltrative process. There is athe rosclerotic change of the thoracic aorta considered stable. Limited evaluation of the upper abdomen confirms a trace amount of perihepatic ascites. There are fin dings of moderate splenomegaly. Upper abdominal varices are present. IMPRESSION: 1. No evidence for a new or interval process of the chest. 2. Stable emphysematous change. 3. Slight improvement in aeration both lung bases as compared to the prior study. 4. Upper abdominal findings suggesting hepatic cirrhosis/splenomegaly as well as a small amount of pe rihepatic ascites. 5. Upper abdominal varices are present. ACT 112: Negative or not required by law. The above report was generated using voice recognition software. It may contain grammatical, syntax or spelling errors. Electronically signed by: Faisal Chung M.D. 03/18/2020 9:45 AM
--- NOTE | 2020-03-18 10:07 | CT Scan Report ---
CT OF THE ABDOMEN AND PELVIS WITH CONTRAST CLINICAL HISTORY: cirrhosis, diarrhea, h/o C. Difficile. COMPARISON STUDY: CT of the abdomen and pelvis February 29, 2020. TECHNIQUE: Following IV administration of 94 mL of Optiray-320, axial images of the abdomen and pelvi s were obtained from the lung bases to the proximal femurs. Images were reviewed in the axial, sagitt al, and coronal planes. IV contrast was administered without complication. Automated exposure contro l was utilized for the study. A dose lowering technique was utilized adhering to the principles of A KARLA. FINDINGS: Please note that the chest will be reported separately. Paraseptal emphysema within the fannie g bases is noted. No pneumatosis, free air or portal venous gas is present. Lobulated contour of the liver is noted. This represents cirrhosis. No discrete hepatic lesion is identified although sensitiv ity for detection of hypervascular lesions is diminished on this venous phase exam. There is mild foc al intrahepatic biliary ductal dilatation adjacent to the gallbladder. Moderate splenomegaly is noted . A small amount of ascites has decreased since CT of February 29, 2020. The main, left and right portal veins are patent. Extensive varices are noted within the abdomen and pelvis. There is no evidence for a bowel obstruction. Severe wall thickening of the entire colon and the rectum has increased since e xam of February 29, 2020. No small bowel wall thickening is noted. Moderate plaque of the abdominal aorta is noted. Major vessels are patent. The adrenal glands, kidneys and pancreas are unremarkable. There is no pancreatic ductal dilatation. There is borderline biliary ductal dilatation. Gallbladder is no t distended. There is no lymphadenopathy within the abdomen or pelvis. Bautista balloon is present withi n the bladder which is collapsed. Left hip arthroplasty is noted. There are multiple old lower thorac ic and lumbar spine compression fractures. IMPRESSION: 1. Findings consistent with severe proctocolitis likely reflecting C. difficile colitis. Colorectal w all thickening increased since CT of February 29, 2020. 2. Cirrhosis with manifestations of portal hypertension including extensive varices formation, modera te splenomegaly and a small amount of ascites. Mild focal intrahepatic biliary ductal dilatation swetha cent to the gallbladder, a finding of questionable significance. A follow-up liver protocol [facility] to ensure stability is recommended. ACT 112: Negative or not required by law. Electronically signed by: Brian Hill M.D. 03/18/2020 10:06 AM
--- NOTE | 2020-03-18 10:21 | Gastrointestinal Consultation ---
Date of Consultation March 18, 2020 Assessment & Plan (1) C. difficile colitis: Would suggest increasing vanco to 250 if pt not responding to 125mg and would also recommend a long Vanco taper, however, ID has been consulted so will defer tx of C-diff to ID. Suspect bowel wall thickening related to both C-diff and cirrhosis and at this time would defer endoscopy. Present on Admission?: Yes (2) Cirrhosis: Would defer further IP w/o of cirrhosis. Would ask PCP to refer to GI/hepatology if not already being followed/already referred to. If being seen by our [facility] group: as an OP would get a thorough hx from pt and family and likely do serology to determine cause of cirrhosis. Would need EGD for screening for EV (after COVID-19 pandemic), Q 6month US to screen for HCC which would be due in August, and would recommend a low salt diet. Based on MELD 18, after COVID and after resolution of hip fx and C-diff would consider liver transplant referral. No further inpatient work up recommended for cirrhosis. Present on Admission?: Yes Supervising Physician Co-Signing Physician Notes Late entry: Patient was seen and examined with MADALYN Harrison on 03/18. Her note reflects our findings and plan. Agree with vanco taper over several weeks. History of Present Illness Reason for Consultation: C-diff and cirrhosis Requesting Physician: Frankie Attending Physician: Joshua David MD History of Present Illness Ms. Dee Dorantes is a 60 yr old female with a hx of bipolar/schizophrenia and hx of prior drug abuse (OP EPIC records) who was admitted yesterday for fever, SOB, cough. She underwent hip fx repair at [place] on 02/07/20. According to reviewed documents here, her PCP is Jon Redd MD. She had previously been C-diff positive and has continued diarrhea. GI is consulted for the C-diff diarrhea and because imaging shows cirrhosis. The pt is not a good historian, but is able to tell me her middle name, that this is 2019. She is not aware of any prior hx of cirrhosis or other liver problems. She denies any family hx of liver problems. She denies any yellow eyes or skin. Also denies any prior hx of increased alcohol intake. In the [facility] system, US and CT in January 2020 with the cirrhosis, suggestion of portal HTN and abdominal varices. CT here today with cirrhosis, splenomegally. LFTs are normal, INR 1.7. MELD score is 18. Regarding C-diff, she is passing 2-3 loose brown BMs/day and is on vanco 125mg QID po and ID is consulted. On today's CT, there is suggestion of severe wall thickening of the entire colon and the rectum. Pt is hemodynamically stable, alert and when asked about abdominal pain reports mild general discomfort. WBC was 11 yesterday and is 9 today. COPD is suspected and she was leaving the room for further Chest imaging at the time of my exam. Allergies Allergy/AdvReac Type Severity Reaction Status Date / Time Penicillins Allergy Severe ANAPHYLAXIS Verified 03/17/20 12:32 hydrocodone AdvReac Intermediate Nausea Unverified 03/17/20 12:32 [From Lorcet (hydrocodone)] Home Medications Home Medications Medication Instructions Recorded Confirmed Type acetaminophen [Tylenol] 650 mg PO Q4H PRN 02/24/20 03/17/20 History acetaminophen-codeine 1 - 2 tab PO Q4H PRN 02/24/20 03/17/20 History albuterol sulfate 2 puff INHALATION QID PRN 02/24/20 03/17/20 History ascorbic acid (vitamin C) 500 mg PO DAILY 02/24/20 03/17/20 History calcium carbonate-vitamin D3 1 tab PO DAILY 02/24/20 03/17/20 History [Calcium 500 + D] fluticasone propionate 2 spray INTRANASAL DAILY 02/24/20 03/17/20 History loratadine 10 mg PO DAILY PRN 02/24/20 03/17/20 History metoprolol tartrate 50 mg PO BID 02/24/20 03/17/20 History multivitamin 1 tab PO DAILY 02/24/20 03/17/20 History olopatadine 1 drp OPB BID 02/24/20 03/17/20 History ergocalciferol (vitamin D2) 50,000 unit PO Q7D #3 cap 03/04/20 03/17/20 Rx ferrous sulfate 325 mg PO BIDM 30 Days #60 tab 03/04/20 03/17/20 Rx enoxaparin 40 mg SUBCUT DAILY 03/17/20 03/17/20 History Patient History Medical History Bipolar disorder Cirrhosis Depression History of CVA (cerebrovascular accident) Osteoporosis Pulmonary nodule 9 mm RML subsolid nodule CT chest 02/29/20. 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 Beliefs That Will Affect Care: None marital status: Current Living Situation: Spouse Feels Safe at Home: Yes Safety Concerns: Feels Safe At This Time Smoking Status: Former smoker Tobacco Type: cigarettes ; Second Hand Exposure: No ; Hx Alcohol Use: No Hx Substance Use: No Review of Systems Review of Systems: ROS: Gen: + weakness, + fevers Eyes: No eye redness, or pain, no recent vision changes Resp: + SOB, + cough Cardio: Denies palpitations/irregular beats, no chest pain GI: + mild diffuse abdominal pain, denies nausea/vomiting : Denies pain on urination Skin: No jaundice, itching or new rashes Physical Exam Constitutional: well developed, + ill appearing, + thin and cooperative Eyes: PERRL, conjunctivae normal, anicteric sclerae Respiratory: normal respiratory effort, lungs clear to auscultation normal respiratory effort and able to speak in complete sentences; no respiratory distress, no labored breathing, does not use accessory muscles and no cough Cardiovascular: RRR, no murmur, no edema Gastrointestinal (Abdomen): normal bowel sounds, soft, nontender, no hepatosplenomegaly Inspection/Auscultation: abdomen normal to inspection and normal bowel sounds; abdomen not distended and no abdominal edema Percussion/Palpation: + abdomen tender (Mild diffuse adbdominal msk tenderness. No signs of acute abdomen.) and abdomen soft; no guarding and abdomen not rigid No obvious ascites Skin: no rashes, warm and dry normal turgor and + pallor Neurologic: PERRL, EOMI, accommodation nl, no face palsy, no dysarthria awake; not confused Psychiatric: Orientation: alert and cooperative Poor historian. Not able to tell me today's date or the current month - but may be having difficulty hearing the questions (as we all have masks on) Results & Data ([facility]) Vital Signs (Past 12 Hours) Vital Signs Temp Pulse Pulse Resp BP Pulse Ox 03/18/20 07:48 36.6 C 85 16 98/58 L 94 03/18/20 04:22 71 03/18/20 03:50 36.6 C 70 16 99/56 L 93 03/17/20 23:45 37.1 C 72 16 102/59 L 98 Laboratory Results WBC 11->9, Hb 12, Hct 39, Platelts 160, INR 1.7, Na 130, K 3.3, BUN 21, Cr 0.62. Diagnostic Findings CT bd/pelvis 03/18/20: 1. Findings consistent with severe proctocolitis likely reflecting C. difficile colitis. Colorectal wall thickening increased since CT of February 29, 2020. 2. Cirrhosis with manifestations of portal hypertension including extensive varices formation, moderate splenomegaly and a small amount of ascites. Mild focal intrahepatic biliary ductal dilatation adjacent to the gallbladder, a finding of questionable significance. A follow-up liver protocol CT in 6 months to ensure stability is recommended.
--- NOTE | 2020-03-18 10:51 | Infectious Disease Consult ---
Date of Consultation March 18, 2020 Assessment & Plan (1) C. difficile colitis: Agree with increased dose of vanco with several weeks prolonged taper - 4- 6 weeks. would suggest 14 days at 250mg QID, then decreased to 125mg QID x 4 weeks with taper following. would hold additional abx if cultures negative and focus treatment on recurrent c diff. suggest prolonged probiotic as well. History of Present Illness Attending Physician: Joshua David MD pt admitted with diarrhea, weakness. was recently admitted at [facility] and was found to have c diff, treated with vanco. had a prolonged stay at [facility] prior and received IV abx for suspected HAP. she is now on aztreonam and doxy and po vanco. s/o GI eval, suggested increase to 250mg vanco for recurrent c diff. no f/c. She tested negative for COVID on 02/23, repeat testing done in ER yesterday, in airborne isolation pending. wbc 9, creat 0.6. cxr Left atelectasis. UA 1-5 wbc, no bacteria. C diff + in ER, Flu swab negative. urine and blood cultures pending. ID consulted for C. diff. Allergies Allergy/AdvReac Type Severity Reaction Status Date / Time Penicillins Allergy Severe ANAPHYLAXIS Verified 03/17/20 12:32 hydrocodone AdvReac Intermediate Nausea Unverified 03/17/20 12:32 [From Lorcet (hydrocodone)] Home Medications Home Medications Medication Instructions Recorded Confirmed Type acetaminophen [Tylenol] 650 mg PO Q4H PRN 02/24/20 03/17/20 History acetaminophen-codeine 1 - 2 tab PO Q4H PRN 02/24/20 03/17/20 History albuterol sulfate 2 puff INHALATION QID PRN 02/24/20 03/17/20 History ascorbic acid (vitamin C) 500 mg PO DAILY 02/24/20 03/17/20 History calcium carbonate-vitamin D3 1 tab PO DAILY 02/24/20 03/17/20 History [Calcium 500 + D] fluticasone propionate 2 spray INTRANASAL DAILY 02/24/20 03/17/20 History loratadine 10 mg PO DAILY PRN 02/24/20 03/17/20 History metoprolol tartrate 50 mg PO BID 02/24/20 03/17/20 History multivitamin 1 tab PO DAILY 02/24/20 03/17/20 History olopatadine 1 drp OPB BID 02/24/20 03/17/20 History ergocalciferol (vitamin D2) 50,000 unit PO Q7D #3 cap 03/04/20 03/17/20 Rx ferrous sulfate 325 mg PO BIDM 30 Days #60 tab 03/04/20 03/17/20 Rx enoxaparin 40 mg SUBCUT DAILY 03/17/20 03/17/20 History Patient History Medical History Bipolar disorder Cirrhosis Depression History of CVA (cerebrovascular accident) Osteoporosis Pulmonary nodule 9 mm RML subsolid nodule CT chest 02/29/20. F/U CT recommended 3-6 months Schizophrenia Vitamin D deficiency Surgical History History of appendectomy History of shoulder surgery History of total hip replacement femur fracture one month later with repair, both in 2007 Status post open reduction and internal fixation (ORIF) of fracture Family History Father Myocardial infarction Mother Colorectal cancer Social History Preferred Language: Sinhala Communication Ability: Effective End Frazer Required: No Beliefs That Will Affect Care: None marital status: Current Living Situation: Spouse Feels Safe at Home: Yes Safety Concerns: Feels Safe At This Time Smoking Status: Former smoker Tobacco Type: cigarettes ; Second Hand Exposure: No ; Hx Alcohol Use: No Hx Substance Use: No Review of Systems Review of Systems: per H&P Results & Data ([facility]) Vital Signs (Past 12 Hours) Vital Signs Temp Pulse Pulse Resp BP Pulse Ox 03/18/20 08:00 65 03/18/20 07:48 36.6 C 85 16 98/58 L 94 03/18/20 04:22 71 03/18/20 03:50 36.6 C 70 16 99/56 L 93 03/17/20 23:45 37.1 C 72 16 102/59 L 98 PG Care Time/CCT Total # of Minutes Spent Total Time Spent with Patient: Total time spent is greater than 50% in coordination of care (as documented) at patient's floor/unit and/or counseling patient: Coding Level of Care Code 85260 Inpt Consult Level 2 Diagnoses C. difficile colitis A04.72
--- NOTE | 2020-03-18 11:57 | Electrocardiogram Report ---
Test Reason : Blood Pressure : / mmHG Vent. Rate : 099 BPM Atrial Rate : 099 BPM P-R Int : 154 ms QRS Dur : 094 ms QT Int : 382 ms P-R-T Axes : 007 015 022 degrees QTc Int : 490 ms Normal sinus rhythm Prolonged QT Abnormal ECG When compared with ECG of 24-FEB-2020 09:12, ST no longer depressed in Anterior leads T wave inversion no longer evident in Anterior leads Confirmed by Fletcher Santiago ([id number]) on 03/18/2020 11:57:34 AM Referred By: ED Confirmed By:Michele Santiago
[2020-03-18 13:14] LABS: BUN Creatinine Ratio 39.7 (10-20); Calcium 8.2 mg/dl (8.5-10.1); Creatinine Clr Calc Pharmacy 112.2 ml/min; Est GFR (African American) 123.6; Est GFR (Non-African American) 106.6; Potassium 3.3 mmol/L (3.5-5.1)
[2020-03-18 13:17] LABS: Albumin Globulin Ratio 0.6 (0.9-2); Bilirubin,Total 0.7 mg/dl (0.2-1); Globulin 3.5 gm/dl (2.5-4.0); Total Protein 5.5 gm/dl (6.4-8.2)
[2020-03-18] MEDS ORDERED: SODIUM PHOSPHATE 3 MMOL/1 ML INFUSION IV STA (13:41)
[2020-03-18] MEDS ORDERED: SODIUM PHOSPHATE 21 MMOL in SODIUM CHLORIDE 0.9% 500 ML IV ONE (14:00)
--- NOTE | 2020-03-18 14:10 | Hospitalist Progress Note ---
Date of Service March 18, 2020 Assessment & Plan (1) C. difficile diarrhea: Dehydration from Clostridium difficile diarrhea Recurrent Clostridium infection Clostridium Colitis -This is a 60 year old with recent hospitalizations and discharged from [facility] and then had diarrhea. as per ED notes, there was also concern for fever at home and chronic cough and discomfort from a fracture repair of femur of lower extremity in January. Influenza negative and after discussing with Emergency room physician that there was no need at this time for airborne precautions. However, patient with history of C.difficile in the recent past (positive test for C.difficile by PCR and toxin in 02/24/2020) and despite recent treatment from previous hospitalization the patient is again on 03/17/2020 found to be C.difficile positive by PCR and toxin. Patient was initiated on oral vancomycin by emergency doctor. Patient's labs also suggesting dehydration. Patient also has history of cirrhosis and elevated ammonia levels of 48. Patient was able to answer questions appropriately but at times appeared lethargic and quite often hospitalist had to communicate with her very loudly to get her responses. she had tenderness of right side of abdomen. Patient denies problems with vomiting, denies shortness of breath and denies chest pain. -03/18/2020: CT scan: Findings consistent with severe proctocolitis likely reflecting C. difficile colitis. Colorectal wall thickening increased since CT of February 29, 2020 -gastroenterology and infectious disease consult following the patient. Infectious disease consult advised on 03/18/2020 the Vancomycin dosing as 14 days at 250mg QID, then decreased to 125mg QID x 4 weeks with taper following Acute Kidney Injury Elevated Lactic acid Electrolyte Abnormalities (Hyponatremia, Hypomagnesemia, Hypokalemia, Hypophosphatemia -discharge creatinine from last admission around 0.45, this admission creatinine is 1, admission lactic acid of 2.7. elevated lactic acid decreased with IV fluids on admission day. -try to target serum sodium above 130, giving potassium, magnesium, phosphorous supplements Pneumonia is ruled out, COVID-19 is ruled out Rule out Bacteremia -admission CXR on 03/17/2020: Mild left basilar opacity which favors atelectasis. However, an infectious process could appear similar. Otherwise, unchanged appearance of the chest. Emphysema. Stable interstitial thickening. -was informed on admission by Dr. Harry, patient's previous hospitalist who has seen patient in the past and she is concerned that there are indeed new lung infiltrates and she advised COVID-19 on admission which resulted as negative result on 03/18/2020. patient was started on empiric respiratory antibiotic of Aztreonam and doxycycline (has anaphylactic penicillin allergy), had nasal swab negative for MRSA , procalcitonin elevated as 13 -by 03/18/2020, patient admission blood culture speciating as gram positive cocci in 1 of 2 bottles but is negative for MRSA by PCR. blood cultures repeated on 03/18/2020. because of severity of C.difficile and likely the blood culture is contaminant and the CT scan ruling out pneumonia, will stop aztreonam and doxycyline -by 03/18/2020, patient had CT scan " Diffuse emphysematous change throughout both hemithoraces. Superimposed peribronchial and parenchymal prominence both lung bases diminished compared to the prior study. Scattered bulla are present bilaterally and are stable. There does not appear to be evidence for an acute or superimposed infiltrative process." (2) Cirrhosis: -as per review of 03/04/2020 [facility] discharge summary that patient had CT scan revealing cirrhosis of liver with evidence of portal hypertension and and suggested that this was incidentally noted on CT at [facility] in January 2020 as a new finding -Patient had CT scan on previous hospitalization with Suspected hepatic fibrosis/cirrhosis with portal hypertension evidenced by splenomegaly and ascites -admission with right quadrant pain, Hyperammonemia of 48 on 03/17/2020 with INR 1.7 confirms cirrhosis -03/18/2020: "Cirrhosis with manifestations of portal hypertension including extensive varices formation, moderate splenomegaly and a small amount of ascites. Mild focal intrahepatic biliary ductal dilatation adjacent to the gallbladder, a finding of questionable significance. A follow-up liver protocol CT in 6 months to ensure stability is recommended" -gastroenterology consult following the patient and commented that patient may need liver transplant referral after completing treatment for C.difficile Anemia Thrombocytopenia -patient's platelets from recent hospital admission is around 80 K to 90 K. is 100 K on 03/17/2020. admission Hgb of 12 and so far stable. platelets as 160 K when tested on 03/18/2020 -monitor CBC and platelets -INR is elevated in the context of cirrhosis DVT prophylaxis: SCDs for now Hypertension -on metoprolol History of Left femur fracture with ORIF repair History of compression fractures of spine Osteoporosis Vitamin D deficiency -repaired in January 2020 in [facility] -pain control medication prn -PT/OT evaluation -was on Vitamin D supplements and Calcium supplements from last admission for Vitamin D deficiency and Osteoporosis give Vitamin D supplements, check Vitamin D levels Pulmonary nodule -9 mm subsolid RML nodule noted on CT 02/29/2020. Patient is a smoker. Follow-up CT in 3-6 months per guidelines. History of Mood disorder -as per outpatient records Full Code Admission and Anticipated Discharge Date Admission Date: March 17, 2020 Subjective Patient seen and examined laying on the bed. She was able to turn over or posterior lung auscultation. breathing on room air. no acute shortness of breath. still with right sided abdomen pain on palpation. no vomiting. she is able to tolerate diet. no chest pain. headache. no dizziness. responds appropriately to questions but sometimes medical doctor needed to speak loudly for her to hear Review of Systems Review of Systems: All systems reviewed & are unremarkable except as noted in Subjective Physical Exam Constitutional: + frail appearing Eyes: PERRL, conjunctivae normal, anicteric sclerae EOM intact bilaterally ENMT: external ear and nose normal, oropharynx normal Neck: normal visual inspection Respiratory: normal respiratory effort, lungs clear to auscultation Cardiovascular: Rate/Rhythm: regular rate and regular rhythm Gastrointestinal (Abdomen): Percussion/Palpation: + abdomen tender (right quadrant tenderness) Musculoskeletal: Head/Neck/Chest: normocephalic Neurologic: PERRL, EOMI, accommodation nl, no face palsy, no dysarthria Psychiatric: Orientation: alert, oriented to person, oriented to place, oriented to time and cooperative Results & Data Results & Data ([facility]) Vital Signs (Past 12 Hours) Vital Signs Temp Pulse Pulse Resp BP Pulse Ox 03/18/20 08:00 65 03/18/20 07:48 36.6 C 85 16 98/58 L 94 03/18/20 04:22 71 03/18/20 03:50 36.6 C 70 16 99/56 L 93
[2020-03-18] MEDS ORDERED: NSS + 20MEQ KCL 20 MEQ/1,000 ML BAG IV SCH (15:00)
[2020-03-18] MEDS ORDERED: LOPERAMIDE HCL 2 MG CAP PO PRN (15:26)
[2020-03-18] MEDS: VANCOMYCIN HCL 250 MG/5 ML SOLN PO SCH ×2 (16:32→21:00)
[2020-03-18] MEDS ORDERED: ARTIFICIAL TEARS OPB PRN (17:00)
[2020-03-18] MEDS: OXYCODONE HCL IR 5 MG TAB (IMMEDIATE RELEASE) PO PRN (18:07)
[2020-03-18] MEDS: POT PHOSPHATE MONOBASIC W/ SOD TAB PO SCH ×2 (18:07→20:56)
[2020-03-19] MEDS: OXYCODONE HCL IR 5 MG TAB (IMMEDIATE RELEASE) PO PRN (02:24)
[2020-03-19] MEDS: VANCOMYCIN HCL 250 MG/5 ML SOLN PO SCH ×4 (02:34→20:06)
[2020-03-19] MEDS: RASPBERRY SYRUP 5 ML UDP PO SCH ×4 (02:34→20:06)
[2020-03-19 05:00] LABS: Hepatitis A Antibody IgM NON-REACTIVE (NON-REACTIVE); Hepatitis B Core Antibody IgM NON-REACTIVE (NON-REACTIVE)
[2020-03-19] MEDS: CALCIUM 600MG + VIT D 400 IU TAB PO SCH (05:10)
[2020-03-19 06:14] LABS: Mean Corpuscular Hgb Conc 32.2 g/dL (32-36)
[2020-03-19 06:21] LABS: Hematocrit (blood only) 36.9 % (37-47); Hemoglobin 11.9 g/dL (12.0-16.0); INR 1.7 (0.9-1.1); Mean Corpuscular Hemoglobin 29.9 pg (25-34); Mean Corpuscular Volume 92.7 fL (80-100); Prothrombin Time 17.5 Seconds (9.0-12.0); RDW Coefficient of Variation 17.1 % (11.5-14.5); RDW Standard Deviation 58.6 fL (36.4-46.3); Red Blood Count 3.98 M/uL (4.2-5.4); White Blood Count 8.78 K/uL (4.8-10.8)
[2020-03-19 06:32] LABS: Albumin Level 1.9 gm/dl (3.4-5.0); Calcium 7.9 mg/dl (8.5-10.1); Creatinine Clr Calc Pharmacy 99.7 ml/min; Est GFR (African American) 118.9; Est GFR (Non-African American) 102.6; Magnesium 1.9 mg/dl (1.8-2.4); Potassium 3.2 mmol/L (3.5-5.1)
[2020-03-19 06:35] LABS: Albumin Globulin Ratio 0.5 (0.9-2); Bilirubin,Total 0.6 mg/dl (0.2-1); Globulin 3.5 gm/dl (2.5-4.0); Total Protein 5.4 gm/dl (6.4-8.2)
[2020-03-19 06:52] LABS: Platelet Count 112 K/uL (130-400)
[2020-03-19 06:54] LABS: Basophils # (auto) 0.01 K/uL (0-0.2); Basophils % (auto) 0.1 %; Dohle Bodies 2+; Eosinophils # (auto) 0.43 K/uL (0-0.5); Eosinophils % (auto) 4.9 %; Immature Granulocytes # (auto) 0.04 K/uL (0.00-0.02); Immature Granulocytes % (auto) 0.5 %; Lymphocytes % (auto) 5.7 %; Monocytes # (auto) 1.13 K/uL (0.11-0.59); Monocytes % (auto) 12.9 %; Neutrophils # (auto) 6.67 K/uL (1.4-6.5); Neutrophils % (auto) 75.9 %; Schistocytes Occasional; Toxic Granulation 2+
[2020-03-19] MEDS ORDERED: CALCIUM 600MG + VIT D 400 IU TAB PO SCH (08:00)
[2020-03-19] MEDS ORDERED: ASCORBIC ACID 500 MG TAB PO SCH (08:00)
[2020-03-19] MEDS ORDERED: POTASSIUM CHLORIDE 20 MEQ TABCR PO SCH (09:00)
[2020-03-19] MEDS: MULTIVITAMIN TAB PO SCH (09:56)
[2020-03-19] MEDS: METOPROLOL TARTRATE 50 MG TAB PO SCH ×2 (09:57→20:06)
[2020-03-19] MEDS: POT PHOSPHATE MONOBASIC W/ SOD TAB PO SCH ×4 (09:57→20:06)
[2020-03-19] MEDS: FERROUS SULFATE 325 MG TAB PO SCH ×2 (09:58→16:49)
[2020-03-19] MEDS: ASCORBIC ACID 500 MG TAB PO SCH (09:58)
--- NOTE | 2020-03-19 12:21 | Hospitalist Progress Note ---
Date of Service March 19, 2020 Assessment & Plan (1) C. difficile colitis: (2) Fever: 60 year old female with history of Recent ORIF Left femur complicated by C Diff, Pneumonia, Encephalopathy, HTN, Liver Cirrhosis presenting with fever. (1) C. difficile Colitis, 2nd Episode Dehydration from Clostridium difficile diarrhea Recurrent Clostridium infection Clostridium Colitis -03/18/2020: CT scan: Findings consistent with severe proctocolitis likely reflecting C. difficile colitis. Colorectal wall thickening increased since CT of February 29, 2020 -GI and ID consulted Infectious disease recommend: Vancomycin dosing as 14 days at 250mg QID, then decreased to 125mg QID x 4 weeks with taper following Acute Kidney Injury - resolved Electrolyte Abnormalities (Hyponatremia, Hypomagnesemia, Hypokalemia, Hypophosphatemia - replace and monitor Pneumonia is ruled out, COVID-19 is ruled out - per Dr. Joshua David's notes: -admission CXR on 03/17/2020: Mild left basilar opacity which favors atelectasis. However, an infectious process could appear similar. Otherwise, unchanged appearance of the chest. Emphysema. Stable interstitial thickening. -was informed on admission by Dr. Harry, patient's previous hospitalist who has seen patient in the past and she is concerned that there are indeed new lung infiltrates and she advised COVID-19 on admission which resulted as negative result on 03/18/2020. patient was started on empiric respiratory antibiotic of Aztreonam and doxycycline (has anaphylactic penicillin allergy), had nasal swab negative for MRSA , procalcitonin elevated as 13 -by 03/18/2020, patient admission blood culture speciating as gram positive cocci in 1 of 2 bottles but is negative for MRSA by PCR. blood cultures repeated on 03/18/2020. because of severity of C.difficile and likely the blood culture is contaminant and the CT scan ruling out pneumonia, will stop aztreonam and doxycyline -by 03/18/2020, patient had CT scan " Diffuse emphysematous change throughout both hemithoraces. Superimposed peribronchial and parenchymal prominence both lung bases diminished compared to the prior study. Scattered bulla are present bilaterally and are stable. There does not appear to be evidence for an acute or superimposed infiltrative process." Bacteremia ruled out - 1 bottle positive for coag staph not lugdunensis, likely contamination (2) Cirrhosis: - per Dr. Joshua David's notes: -as per review of 03/04/2020 Aris Pablo discharge summary that patient had CT scan revealing cirrhosis of liver with evidence of portal hypertension and and suggested that this was incidentally noted on CT at [facility] in January 2020 as a new finding -Patient had CT scan on previous hospitalization with Suspected hepatic fibrosis/cirrhosis with portal hypertension evidenced by splenomegaly and ascites -admission with right quadrant pain, Hyperammonemia of 48 on 03/17/2020 with INR 1.7 confirms cirrhosis -03/18/2020: "Cirrhosis with manifestations of portal hypertension including extensive varices formation, moderate splenomegaly and a small amount of ascites. Mild focal intrahepatic biliary ductal dilatation adjacent to the gallbladder, a finding of questionable significance. A follow-up liver protocol CT in 6 months to ensure stability is recommended" -gastroenterology consult following the patient--> recommend outpatient ff up with GI clinic for further work up, may need liver transplant referral after completing treatment for C.difficile Anemia Thrombocytopenia -at baseline Hypertension - continue Metoprolol History of Left femur fracture with ORIF repair History of compression fractures of spine Osteoporosis Vitamin D deficiency -repaired in January 2020 in [facility] -pain control medication prn -PT/OT evaluation--> toe touch weight bearing - Vit D 17 --> 27 continue Vit D supplementation Pulmonary nodule -9 mm subsolid RML nodule noted on CT 02/29/2020. Patient is a smoker. Follow-up CT in 3-6 months per guidelines. History of Mood disorder -as per outpatient records Full Code Disposition pending possible discharge to Rehab vs. Home with home health Admission and Anticipated Discharge Date Admission Date: March 17, 2020 Subjective ff up for C diff colitis seen resting in bed, comfortable, sleeping but easily awakened patient is irritable, but not in distress states she still had multiple loose BMs this morning, cannot quantify, with some abdominal discomfort denies chills no cough, SOB, chest pain no other symptoms Review of Systems Review of Systems: All systems reviewed & are unremarkable except as noted in HPI & below Physical Exam Physical Exam: General- oriented x 3, not in distress, speaks in sentences with no effort or accessory muscle use Head- atraumatic Eyes- PERRL, EOMI, anicteric ENT- oropharynx clear Neck- supple, no JVD, no adenopathy, no thyromegaly; carotids +2/2, no bruits appreciated Lungs- clear to auscultation bilaterally, no rales/wheezes Heart- normal rate, regular rhythm; no murmur, no gallop, no rub appreciated Abdomen- normal bowel sounds, nondistended, soft, mildly tender, no masses or hepatosplenomegaly Extremities- no pretibial edema, no calf tenderness; peripheral pulses intact Neuro- alert, oriented x 2; CN 2-12 grossly intact; motor 5/5 bilaterally;sensation 100% on all extremities; no other gross focal neurologic deficits Skin- warm & dry Results & Data Results & Data ([facility]) Vital Signs (Past 12 Hours) Vital Signs Temp Pulse Pulse Resp BP Pulse Ox 03/19/20 11:26 37.1 C 67 18 103/64 98 03/19/20 07:50 36.8 C 74 20 118/68 96 03/19/20 07:15 72 03/19/20 02:41 36.8 C 69 20 114/66 97 Laboratory Results Laboratory Results - last 24 hr 03/18/20 03/18/20 03/18/20 05:53 12:15 12:15 WBC RBC Hgb Hct MCV MCH MCHC RDW Std Deviation RDW Coeff of Dewayne Plt Count Immature Gran % (Auto) Neut % (Auto) Lymph % (Auto) [place] % (Auto) Eos % (Auto) Baso % (Auto) Immature Gran # (Auto) Neut # (Auto) Lymph # (Auto) [place] # (Auto) Eos # (Auto) Baso # (Auto) Toxic Granulation Dohle Bodies Schistocytes PT INR Sodium 128 L Potassium 3.3 L Chloride 102 Carbon Dioxide 19 L Anion Gap 8.0 BUN 19 H Creatinine 0.48 L Est Cr Clr Drug Dosing 112.2 Est GFR ( Amer) 123.6 Est GFR (Non-Af Amer) 106.6 BUN/Creatinine Ratio 39.7 H Glucose 116 H Calcium 8.2 L Ionized Calcium 1.13 Phosphorus Magnesium Total Bilirubin 0.7 AST 61 H ALT 37 Alkaline Phosphatase 67 Ammonia Total Protein 5.5 L Albumin 2.0 L Globulin 3.5 Albumin/Globulin Ratio 0.6 L Hepatitis A IgM Ab NON-REACTIVE Hep B Core IgM Ab NON-REACTIVE 03/19/20 03/19/20 03/19/20 06:03 06:03 06:03 WBC 8.78 RBC 3.98 L Hgb 11.9 L Hct 36.9 L MCV 92.7 MCH 29.9 MCHC 32.2 RDW Std Deviation 58.6 H RDW Coeff of Dewayne 17.1 H Plt Count 112 L Immature Gran % (Auto) 0.5 Neut % (Auto) 75.9 Lymph % (Auto) 5.7 [place] % (Auto) 12.9 Eos % (Auto) 4.9 Baso % (Auto) 0.1 Immature Gran # (Auto) 0.04 H Neut # (Auto) 6.67 H Lymph # (Auto) 0.50 L [place] # (Auto) 1.13 H Eos # (Auto) 0.43 Baso # (Auto) 0.01 Toxic Granulation 2+ Dohle Bodies 2+ Schistocytes Occasional PT 17.5 H INR 1.7 H Sodium Potassium Chloride Carbon Dioxide Anion Gap BUN Creatinine Est Cr Clr Drug Dosing Est GFR ( Amer) Est GFR (Non-Af Amer) BUN/Creatinine Ratio Glucose Calcium Ionized Calcium Phosphorus Magnesium Total Bilirubin AST ALT Alkaline Phosphatase Ammonia 32.7 H Total Protein Albumin Globulin Albumin/Globulin Ratio Hepatitis A IgM Ab Hep B Core IgM Ab 03/19/20 03/19/20 06:03 06:03 WBC RBC Hgb Hct MCV MCH MCHC RDW Std Deviation RDW Coeff of Dewayne Plt Count Immature Gran % (Auto) Neut % (Auto) Lymph % (Auto) [place] % (Auto) Eos % (Auto) Baso % (Auto) Immature Gran # (Auto) Neut # (Auto) Lymph # (Auto) [place] # (Auto) Eos # (Auto) Baso # (Auto) Toxic Granulation Dohle Bodies Schistocytes PT INR Sodium 132 L Potassium 3.2 L Chloride 105 Carbon Dioxide 20 L Anion Gap 6.0 BUN 13 Creatinine 0.54 L Est Cr Clr Drug Dosing 99.7 Est GFR ( Amer) 118.9 Est GFR (Non-Af Amer) 102.6 BUN/Creatinine Ratio 24.0 H Glucose 118 H Calcium 7.9 L Ionized Calcium Phosphorus 1.9 L Magnesium 1.9 Total Bilirubin 0.6 AST 61 H ALT 45 Alkaline Phosphatase 59 Ammonia Total Protein 5.4 L Albumin 1.9 L Globulin 3.5 Albumin/Globulin Ratio 0.5 L Hepatitis A IgM Ab Hep B Core IgM Ab
[2020-03-19] MEDS: TRAMADOL HCL 50 MG TABLET PO PRN (16:48)
[2020-03-20] MEDS: VANCOMYCIN HCL 250 MG/5 ML SOLN PO SCH ×4 (04:45→21:46)
[2020-03-20] MEDS: RASPBERRY SYRUP 5 ML UDP PO SCH ×4 (04:45→21:46)
[2020-03-20] MEDS: CALCIUM 600MG + VIT D 400 IU TAB PO SCH (05:56)
[2020-03-20 06:36] LABS: Mean Corpuscular Hgb Conc 32.5 g/dL (32-36)
[2020-03-20 07:03] LABS: Hematocrit (blood only) 37.9 % (37-47); Hemoglobin 12.3 g/dL (12.0-16.0); Mean Corpuscular Hemoglobin 30.5 pg (25-34); RDW Standard Deviation 58.5 fL (36.4-46.3); Red Blood Count 4.03 M/uL (4.2-5.4); White Blood Count 8.11 K/uL (4.8-10.8)
[2020-03-20 07:04] LABS: BUN Creatinine Ratio 19.3 (10-20); Calcium 7.7 mg/dl (8.5-10.1); Est GFR (African American) 125.3; Est GFR (Non-African American) 108.1; Magnesium 1.8 mg/dl (1.8-2.4)
[2020-03-20 07:05] LABS: Phosphorus 2.1 mg/dl (2.5-4.9)
[2020-03-20 07:10] LABS: Basophils # (auto) 0.02 K/uL (0-0.2); Basophils % (auto) 0.2 %; Dohle Bodies 1+; Eosinophils # (auto) 0.77 K/uL (0-0.5); Eosinophils % (auto) 9.5 %; Immature Granulocytes # (auto) 0.05 K/uL (0.00-0.02); Immature Granulocytes % (auto) 0.6 %; Lymphocytes % (auto) 8.6 %; Mean Platelet Volume 13.6 fL (7.4-10.4); Monocytes # (auto) 0.78 K/uL (0.11-0.59); Monocytes % (auto) 9.6 %; Neutrophils # (auto) 5.79 K/uL (1.4-6.5); Neutrophils % (auto) 71.5 %; Platelet Count 149 K/uL (130-400); Platelet Estimate Decreased (Normal); Schistocytes Occasional; Toxic Granulation 3+
[2020-03-20] MEDS: POTASSIUM CHLORIDE / WTR 10 MEQ/100 ML PLCT IV SCH ×2 (09:31→10:42)
--- NOTE | 2020-03-20 10:15 | XRay Report ---
XR KUB/Abdomen 1 view CLINICAL HISTORY: ABDOMINAL DISTENTION IN c-DIFF PATIENT pain. Nausea. COMPARISON STUDY: No previous studies for comparison. FINDINGS: The soft tissues, psoas shadows, renal outlines and intestinal gas pattern appear normal. T here is no evidence for bowel obstruction. No abnormal abdominal calcifications are seen. IMPRESSION: Normal study. No evidence for a bowel obstructive pattern. ACT 112: Negative or not required by law. The above report was generated using voice recognition software. It may contain grammatical, syntax or spelling errors. Electronically signed by: Faisal Chung M.D. 03/20/2020 10:13 AM
[2020-03-20] MEDS: FERROUS SULFATE 325 MG TAB PO SCH ×2 (10:30→16:25)
[2020-03-20] MEDS: POTASSIUM CHLORIDE 20 MEQ TABCR PO SCH (10:32)
[2020-03-20] MEDS: POT PHOSPHATE MONOBASIC W/ SOD TAB PO SCH ×4 (10:32→20:36)
[2020-03-20] MEDS: MULTIVITAMIN TAB PO SCH (10:32)
[2020-03-20] MEDS: ASCORBIC ACID 500 MG TAB PO SCH (10:33)
[2020-03-20] MEDS: METOPROLOL TARTRATE 50 MG TAB PO SCH ×2 (10:40→20:36)
[2020-03-20] MEDS: NSS + 20MEQ KCL 20 MEQ/1,000 ML BAG IV SCH (11:57)
--- NOTE | 2020-03-20 12:25 | Hospitalist Progress Note ---
Date of Service March 20, 2020 Assessment & Plan (1) C. difficile colitis: (2) Fever: 60 year old female with history of Recent ORIF Left femur complicated by C Diff, Pneumonia, Encephalopathy, HTN, Liver Cirrhosis presenting with fever. C. difficile Colitis, 2nd Episode Dehydration from Clostridium difficile diarrhea - CT scan: Findings consistent with severe proctocolitis likely reflecting C. difficile colitis. Colorectal wall thickening increased since CT of February 29, 2020 -GI and ID consulted Infectious disease recommend: Vancomycin dosing as 14 days at 250mg QID, then decreased to 125mg QID x 4 weeks with taper following 03/20/20 - still having multiple BMs discussed with GI KUB: possible beginning ileus add Flagyl IV, start IV NSS + K, oral K also ordered, clear liquid diet, OOB to chair QS PRN Toradol for pain Hypokalemia - from diarrhea - replace with IV and PO K monitor Hypophosphatemia - PO K phos ordered Acute Kidney Injury - resolved Pneumonia is ruled out, COVID-19 is ruled out - per Dr. Joshua David's notes: -admission CXR on 03/17/2020: Mild left basilar opacity which favors atelectasis. However, an infectious process could appear similar. Otherwise, unchanged appearance of the chest. Emphysema. Stable interstitial thickening. -was informed on admission by Dr. Harry, patient's previous hospitalist who has seen patient in the past and she is concerned that there are indeed new lung infiltrates and she advised COVID-19 on admission which resulted as negative result on 03/18/2020. patient was started on empiric respiratory antibiotic of Aztreonam and doxycycline (has anaphylactic penicillin allergy), had nasal swab negative for MRSA , procalcitonin elevated as 13 -by 03/18/2020, patient admission blood culture speciating as gram positive cocci in 1 of 2 bottles but is negative for MRSA by PCR. blood cultures repeated on 03/18/2020. because of severity of C.difficile and likely the blood culture is contaminant and the CT scan ruling out pneumonia, will stop aztreonam and doxycyline -by 03/18/2020, patient had CT scan " Diffuse emphysematous change throughout both hemithoraces. Superimposed peribronchial and parenchymal prominence both lung bases diminished compared to the prior study. Scattered bulla are present bilaterally and are stable. There does not appear to be evidence for an acute or superimposed infiltrative process." Bacteremia ruled out - 1 bottle positive for coag staph not lugdunensis, likely contamination Cirrhosis: - per Dr. Joshua David's notes: -as per review of 03/04/2020 Aris Pablo discharge summary that patient had CT scan revealing cirrhosis of liver with evidence of portal hypertension an d and suggested that this was incidentally noted on CT at [facility] in January 2020 as a new finding -Patient had CT scan on previous hospitalization with Suspected hepatic fibrosis/cirrhosis with portal hypertension evidenced by splenomegaly and ascites -admission with right quadrant pain, Hyperammonemia of 48 on 03/17/2020 with INR 1.7 confirms cirrhosis -03/18/2020: "Cirrhosis with manifestations of portal hypertension including extensive varices formation, moderate splenomegaly and a small amount of ascites. Mild focal intrahepatic biliary ductal dilatation adjacent to the gallb ladder, a finding of questionable significance. A follow-up liver protocol CT in 6 months to ensure stability is recommended" -gastroenterology consult following the patient--> recommend outpatient ff up with GI clinic for further work up, may need liver transplant referral after completing treatment for C.difficile Anemia Thrombocytopenia -at baseline Hypertension - continue Metoprolol History of Left femur fracture with ORIF repair History of compression fractures of spine Osteoporosis Vitamin D deficiency -repaired in January 2020 in [facility] -pain control medication prn -PT/OT evaluation--> toe touch weight bearing - Vit D 17 --> 27 continue Vit D supplementation Pulmonary nodule -9 mm subsolid RML nodule noted on CT 02/29/2020. Patient is a smoker. Follow-up CT in 3-6 months per guidelines. History of Mood disorder -as per outpatient records Full Code Disposition pending will need Rehab Admission and Anticipated Discharge Date Admission Date: March 17, 2020 Subjective ff up for C difficile colitis had total of 6 BMs overnight per record seen sleeping but easily awakened still appears weak but more alert, conversant today states she continues to "hurt all over" including left leg surgical site, and still having some abdominal discomfort no nausea no chills denies chest pain, dyspnea, cough no other symptoms Review of Systems Review of Systems: All systems reviewed & are unremarkable except as noted in HPI & below Physical Exam Physical Exam: General- oriented x 3, not in distress, speaks in sentences with no effort or accessory muscle use appears weak Eyes- anicteric Neck- no JVD Lungs- clear breath sounds no crackles, wheezing bilaterally Heart- normal rate, regular rhythm; no murmurs Abdomen- normal bowel sounds, mildly distended, soft, mild tenderness on all quadrants Extremities- no pretibial edema, no calf tenderness left lower extremity: surgical wound on the lateral area, femur, well healed, no erythema/warmth/tenderness mild pedal edema Neuro- alert, oriented x 3; no gross focal neurologic deficits Skin- warm & dry Results & Data Results & Data ([facility]) Vital Signs (Past 12 Hours) Vital Signs Temp Pulse Pulse Resp BP BP Pulse Ox 03/20/20 11:45 36.5 C 61 16 99/62 L 98 03/20/20 10:40 74 115/68 03/20/20 08:00 70 03/20/20 07:46 36.5 C 70 16 100/62 99 03/20/20 02:46 36.4 C L 67 16 109/66 95 Laboratory Results Laboratory Results - last 24 hr 03/20/20 03/20/20 06:18 06:18 WBC 8.11 RBC 4.03 L Hgb 12.3 Hct 37.9 MCV 94.0 MCH 30.5 MCHC 32.5 RDW Std Deviation 58.5 H RDW Coeff of Dewayne 17.0 H Plt Count 149 MPV 13.6 H Immature Gran % (Auto) 0.6 Neut % (Auto) 71.5 Lymph % (Auto) 8.6 [place] % (Auto) 9.6 Eos % (Auto) 9.5 Baso % (Auto) 0.2 Immature Gran # (Auto) 0.05 H Neut # (Auto) 5.79 Lymph # (Auto) 0.70 L [place] # (Auto) 0.78 H Eos # (Auto) 0.77 H Baso # (Auto) 0.02 Toxic Granulation 3+ Dohle Bodies 1+ Platelet Estimate Decreased L Schistocytes Occasional Sodium 134 L Potassium 3.0 L Chloride 107 Carbon Dioxide 20 L Anion Gap 7.0 BUN 9 Creatinine 0.46 L Est Cr Clr Drug Dosing 117.0 Est GFR ( Amer) 125.3 Est GFR (Non-Af Amer) 108.1 BUN/Creatinine Ratio 19.3 Glucose 113 H Calcium 7.7 L Phosphorus 2.1 L Magnesium 1.8
--- NOTE | 2020-03-20 12:44 | Gastroenterology Progress Note ---
Date of Service March 20, 2020 Assessment & Plan (1) C. difficile colitis: Because what appears to be a mild ileus and still with significant diarrhea, add flagyl IV. Full liquid diet. Pt needs to be more physically active to avoid developing a significant ileus. Will recheck KUB tomorrow morning and compare colon gassiness. (2) Cirrhosis: Would defer further IP w/o of cirrhosis. Admission and Anticipated Discharge Date Admission Date: March 17, 2020 Supervising Physician Co-Signing Physician Notes I have seen and examined the patient on 03/20 with MADALYN Harrison whose note reflects our finidngs and plan. Subjective Ms. Dee Dorantes padmini 60 yr old female admitted for cough, fever, recent hip fx repair with slow return to ambulation. She is C-diff (+). Imaging with new cirrhosis. Yesterday 6 BMs, today, 2 thus far, moderate volume, liquid. She is mildly distended and is diffusely tender over the entire abdomen on palpation. X-ray today with mild gassiness, no obstruction or significant colonic distention. Review of Systems Review of Systems: ROS: Gen: + weakness, fevers has resolved Eyes: No eye redness, or pain, no recent vision changes Resp: + SOB, + cough - both much improved over the past few days Cardio: Denies palpitations/irregular beats, no chest pain GI: + mild diffuse abdominal pain, denies nausea/vomiting : Denies pain on urination Skin: No jaundice, itching or new rashes Physical Exam Constitutional: well developed, + ill appearing, + thin and cooperative Eyes: PERRL, conjunctivae normal, anicteric sclerae Respiratory: normal respiratory effort, lungs clear to auscultation normal respiratory effort and able to speak in complete sentences; no respiratory distress, no labored breathing, does not use accessory muscles and no cough Cardiovascular: RRR, no murmur, no edema Gastrointestinal (Abdomen): normal bowel sounds, soft, nontender, no hepatosplenomegaly Inspection/Auscultation: abdomen normal to inspection and + abdomen distended (mildly); no abdominal edema Percussion/Palpation: + abdomen tender (diffusely); no guarding and abdomen not rigid Skin: no rashes, warm and dry normal turgor and + pallor Neurologic: PERRL, EOMI, accommodation nl, no face palsy, no dysarthria awake; not confused Psychiatric: Orientation: alert and cooperative Results & Data ([facility]) Vital Signs (Past 12 Hours) Vital Signs Temp Pulse Pulse Resp BP BP Pulse Ox 03/20/20 11:45 36.5 C 61 16 99/62 L 98 03/20/20 10:40 74 115/68 03/20/20 08:00 70 03/20/20 07:46 36.5 C 70 16 100/62 99 03/20/20 02:46 36.4 C L 67 16 109/66 95
[2020-03-20] MEDS: metroNIDAZOLE 500 MG/100 ML BAG IV SCH ×2 (13:15→20:33)
[2020-03-20 16:26] LABS: BUN Creatinine Ratio 17.2 (10-20); Calcium 7.7 mg/dl (8.5-10.1); Creatinine Clr Calc Pharmacy 105.6 ml/min; Est GFR (African American) 121.1; Est GFR (Non-African American) 104.5; Potassium 3.5 mmol/L (3.5-5.1)
[2020-03-20] MEDS: TRAMADOL HCL 50 MG TABLET PO PRN (20:42)
[2020-03-21] MEDS: VANCOMYCIN HCL 250 MG/5 ML SOLN PO SCH ×4 (03:45→21:13)
[2020-03-21] MEDS: RASPBERRY SYRUP 5 ML UDP PO SCH ×4 (03:45→21:13)
[2020-03-21] MEDS: NSS + 20MEQ KCL 20 MEQ/1,000 ML BAG IV SCH (03:46)
[2020-03-21] MEDS: metroNIDAZOLE 500 MG/100 ML BAG IV SCH ×3 (04:58→21:18)
[2020-03-21 05:45] LABS: Hematocrit (blood only) 36.1 % (37-47); Hemoglobin 11.4 g/dL (12.0-16.0); Mean Corpuscular Hemoglobin 29.5 pg (25-34); Mean Corpuscular Hgb Conc 31.6 g/dL (32-36); Mean Corpuscular Volume 93.5 fL (80-100); Mean Platelet Volume 12.6 fL (7.4-10.4); Platelet Count 171 K/uL (130-400); RDW Coefficient of Variation 16.8 % (11.5-14.5); RDW Standard Deviation 58.7 fL (36.4-46.3); Red Blood Count 3.86 M/uL (4.2-5.4); White Blood Count 6.72 K/uL (4.8-10.8)
[2020-03-21] MEDS: CALCIUM 600MG + VIT D 400 IU TAB PO SCH (06:02)
[2020-03-21 06:13] LABS: Basophils # (auto) 0.04 K/uL (0-0.2); Basophils % (auto) 0.6 %; Dohle Bodies 1+; Echinocytes 2+; Eosinophils # (auto) 0.93 K/uL (0-0.5); Eosinophils % (auto) 13.8 %; Immature Granulocytes # (auto) 0.04 K/uL (0.00-0.02); Immature Granulocytes % (auto) 0.6 %; Lymphocytes # (auto) 0.72 K/uL (1.2-3.4); Lymphocytes % (auto) 10.7 %; Monocytes # (auto) 0.67 K/uL (0.11-0.59); Neutrophils # (auto) 4.32 K/uL (1.4-6.5); Neutrophils % (auto) 64.3 %; Toxic Granulation 2+
[2020-03-21 06:23] LABS: BUN Creatinine Ratio 13.8 (10-20); Calcium 7.3 mg/dl (8.5-10.1); Creatinine Clr Calc Pharmacy 88.3 ml/min; Est GFR (African American) 114.2; Est GFR (Non-African American) 98.5; Magnesium 1.7 mg/dl (1.8-2.4); Phosphorus 2.8 mg/dl (2.5-4.9); Potassium 2.9 mmol/L (3.5-5.1)
--- NOTE | 2020-03-21 08:05 | XRay Report ---
KUB CLINICAL HISTORY: C-Diff; ileus; please measure colon distention COMPARISON STUDY: CT of the abdomen and pelvis March 18, 2020. KUB March 20, 2020. FINDINGS: Thumbprinting of the transverse colon corresponds to clinical thickening which is shown on CT of March 18, 2020 and reflects colitis. Colon measures 7 cm in transverse diameter. There is no ev idence for a bowel obstruction. Left hip arthroplasty is noted. Sensitivity is diminished on this sup ine exam but there is no evidence for free air. IMPRESSION: 1. No evidence for a bowel obstruction. 2. Redemonstration of colonic wall thickening consistent with colitis. Transverse colon measures 7 cm in caliber. ACT 112: Negative or not required by law. Electronically signed by: Brian Hill M.D. 03/21/2020 8:04 AM
[2020-03-21] MEDS: MULTIVITAMIN TAB PO SCH (08:27)
[2020-03-21] MEDS: FERROUS SULFATE 325 MG TAB PO SCH ×2 (08:27→16:05)
[2020-03-21] MEDS: POTASSIUM CHLORIDE 20 MEQ TABCR PO SCH (08:28)
[2020-03-21] MEDS: ASCORBIC ACID 500 MG TAB PO SCH (08:29)
[2020-03-21] MEDS: METOPROLOL TARTRATE 50 MG TAB PO SCH ×2 (08:29→21:12)
[2020-03-21] MEDS: POTASSIUM CHLORIDE / WTR 10 MEQ/100 ML PLCT IV SCH ×3 (08:43→13:12)
[2020-03-21] MEDS: MAGNESIUM SULFATE / D5W 1 GM/100 ML BAG IV SCH (08:43)
--- NOTE | 2020-03-21 11:14 | Gastroenterology Progress Note ---
Date of Service March 21, 2020 Assessment & Plan (1) C. difficile colitis: Continue vancomycin, IV flagyl, colestid. Full liquid, low lactose diet. Pt needs to be more physically active to avoid developing a significant ileus. GI will watch peripherally. If increasing abd distention and colon diameter 10cm or greater, please recall. (2) Cirrhosis: Would defer further IP w/o of cirrhosis. Eventual OP GI f/u for cirrhosis with Q6m liver imaging, and EGD for screening for varices, teaching on low salt diet. Admission and Anticipated Discharge Date Admission Date: March 17, 2020 Supervising Physician Co-Signing Physician Notes Late entry: Patient was seen and examined on 03/21 MADALYN Bragg whose note reflects our findings and plan. Subjective Ms. Dee Dorantes padmini 60 yr old female admitted for cough, fever, recent hip fx repair with slow return to ambulation. C-diff (+). CT with colitis, likely secondary to C-diff. Stools loose, still 2-3 times/day. Mild abdomen distention. Imaging with new Cirrhosis, abdominal varices, mild ascites. X-ray today with largest diameter 7cm. Review of Systems Review of Systems: ROS: Gen: + weakness, fevers has resolved Eyes: No eye redness, or pain, no recent vision changes Resp: No apparent SOB, or cough in the past few days. Cardio: Denies palpitations/irregular beats, no chest pain GI: + mild diffuse abdominal pain, no nausea/vomiting : Denies pain on urination Skin: No jaundice, itching or new rashes Physical Exam Constitutional: well developed, + ill appearing, + thin and cooperative Eyes: PERRL, conjunctivae normal, anicteric sclerae Respiratory: normal respiratory effort, lungs clear to auscultation normal respiratory effort and able to speak in complete sentences; no respiratory distress, no labored breathing, does not use accessory muscles and no cough Cardiovascular: RRR, no murmur, no edema Gastrointestinal (Abdomen): Inspection/Auscultation: + abdomen distended (mild to moderate, non taunt); no abdominal edema Percussion/Palpation: + abdomen tender (diffusely); no guarding and abdomen not rigid Skin: no rashes, warm and dry normal turgor and + pallor Neurologic: PERRL, EOMI, accommodation nl, no face palsy, no dysarthria awake; not confused Psychiatric: Orientation: alert and cooperative Results & Data ([facility]) Vital Signs (Past 12 Hours) Vital Signs Temp Pulse Pulse Resp BP Pulse Ox 03/21/20 11:01 36.8 C 79 16 104/65 98 03/21/20 07:10 36.5 C 69 16 94/59 L 95 03/21/20 03:00 36.9 C 64 20 94/54 L 95 03/21/20 01:25 62 03/20/20 23:31 37 C 62 16 97/58 L 95
--- NOTE | 2020-03-21 12:20 | Hospitalist Progress Note ---
Date of Service March 21, 2020 Assessment & Plan (1) C. difficile colitis: (2) Fever: 60 year old female with history of Recent ORIF Left femur complicated by C Diff, Pneumonia, Encephalopathy, HTN, Liver Cirrhosis presenting with fever. C. difficile Colitis, 2nd Episode Dehydration from Clostridium difficile diarrhea - CT scan: Findings consistent with severe proctocolitis likely reflecting C. difficile colitis. Colorectal wall thickening increased since CT of February 29, 2020 -GI and ID consulted Infectious disease recommend: Vancomycin dosing as 14 days at 250mg QID, then decreased to 125mg QID x 4 weeks with taper following 03/20/20 - still having multiple BMs discussed with GI KUB: possible beginning ileus add Flagyl IV, start IV NSS + K, oral K also ordered, clear liquid diet, OOB to chair QS 03/21/20 diarrhea improving continue Vanco PO + Flagyl IV, clear liquids PRN Toradol, Ofirmev IV for pain, consulted with GI Hypokalemia - from diarrhea - replace with IV and PO K monitor Hypophosphatemia - PO K phos ordered, resolved Acute Kidney Injury - resolved Pneumonia is ruled out, COVID-19 is ruled out - per Dr. Joshua David's notes: -admission CXR on 03/17/2020: Mild left basilar opacity which favors atelectasis. However, an infectious process could appear similar. Otherwise, unchanged appearance of the chest. Emphysema. Stable interstitial thickening. -was informed on admission by Dr. Harry, patient's previous hospitalist who has seen patient in the past and she is concerned that there are indeed new lung infiltrates and she advised COVID-19 on admission which resulted as negative result on 03/18/2020. patient was started on empiric respiratory antibiotic of Aztreonam and doxycycline (has anaphylactic penicillin allergy), had nasal swab negative for MRSA , procalcitonin elevated as 13 -by 03/18/2020, patient admission blood culture speciating as gram positive cocci in 1 of 2 bottles but is negative for MRSA by PCR. blood cultures repeated on 03/18/2020. because of severity of C.difficile and likely the blood culture is contaminant and the CT scan ruling out pneumonia, will stop aztreonam and doxycyline -by 03/18/2020, patient had CT scan " Diffuse emphysematous change throughout both hemithoraces. Superimposed peribronchial and parenchymal prominence both lung bases diminished compared to the prior study. Scattered bulla are present bilaterally and are stable. There does not appear to be evidence for an acute or superimposed infiltrative process." Bacteremia ruled out - 1 bottle positive for coag staph not lugdunensis, likely contamination Cirrhosis: - per Dr. Joshua David's notes: -as per review of 03/04/2020 [facility] discharge summary that patient had CT scan revealing cirrhosis of liver with evidence of portal hypertension and and suggested that this was incidentally noted on CT at [facility] in January 2020 as a new finding -Patient had CT scan on previous hospitalization with Suspected hepatic fibrosis/cirrhosis with portal hypertension evidenced by splenomegaly and ascites -admission with right quadrant pain, Hyperammonemia of 48 on 03/17/2020 with INR 1.7 confirms cirrhosis -03/18/2020: "Cirrhosis with manifestations of portal hypertension including extensive varices formation, moderate splenomegaly and a small amount of ascites. Mild focal intrahepatic biliary ductal dilatation adjacent to the gallbladder, a finding of questionable significance. A follow-up liver protocol CT in 6 months to ensure stability is recommended" -gastroenterology consult following the patient--> recommend outpatient ff up with GI clinic for further work up, may need liver transplant referral after completing treatment for C.difficile Anemia - at baseline Thrombocytopenia -significantly improved Hypertension - continue Metoprolol History of Left femur fracture with ORIF repair -repaired in middle of January 2020 in [facility] - reports increased pain on the left knee, xray ordered Doppler US also ordered Ortho consulted PRN toradol, IV Ofirmev q12h ice pack History of compression fractures of spine - pain management per #1 Osteoporosis Vitamin D deficiency - Vit D 17 --> 27 continue Vit D supplementation Pulmonary nodule -9 mm subsolid RML nodule noted on CT 02/29/2020. Patient is a smoker. Follow-up CT in 3-6 months per guidelines. History of Mood disorder -as per outpatient records Full Code Disposition pending return to [facility] when medically stable Admission and Anticipated Discharge Date Admission Date: March 17, 2020 Subjective ff up for C diff colitis seen resting in bed, not in distress sleeping but easily awakened diarrhea improving- less frequent still having abdominal discomfort, but no nausea no chills reports left knee pain and back pain could not sleep well overnight no other symptoms Review of Systems Review of Systems: All systems reviewed & are unremarkable except as noted in HPI & below Physical Exam Physical Exam: General- oriented x 3, not in distress, speaks in sentences with no effort or accessory muscle use Eyes- anicteric Neck- no JVD Lungs- clear BS bilaterally Heart- normal rate, regular rhythm; no murmurs Abdomen-hypoactive bowel sounds, (+) mild distention, but soft, nontender Extremities- Left Lower ext: mild-moderate edema, no warmth/tenderness incision site well healed (+) severe tenderness medial part of the left knee joint RLE- essentially normal Neuro- somewhat drowsy but oriented x 3; no gross focal neurologic deficits Skin- warm & dry Results & Data Results & Data ([facility]) Vital Signs (Past 12 Hours) Vital Signs Temp Pulse Pulse Resp BP Pulse Ox 03/21/20 11:01 36.8 C 79 16 104/65 98 03/21/20 07:10 36.5 C 69 16 94/59 L 95 03/21/20 03:00 36.9 C 64 20 94/54 L 95 03/21/20 01:25 62 Laboratory Results Laboratory Results - last 24 hr 03/20/20 03/20/20 03/21/20 15:53 15:53 05:18 WBC 6.72 RBC 3.86 L Hgb 11.4 L Hct 36.1 L MCV 93.5 MCH 29.5 MCHC 31.6 L RDW Std Deviation 58.7 H RDW Coeff of Dewayne 16.8 H Plt Count 171 MPV 12.6 H Immature Gran % (Auto) 0.6 Neut % (Auto) 64.3 Lymph % (Auto) 10.7 [place] % (Auto) 10.0 Eos % (Auto) 13.8 Baso % (Auto) 0.6 Immature Gran # (Auto) 0.04 H Neut # (Auto) 4.32 Lymph # (Auto) 0.72 L [place] # (Auto) 0.67 H Eos # (Auto) 0.93 H Baso # (Auto) 0.04 Toxic Granulation 2+ Dohle Bodies 1+ Echinocytes 2+ Sodium 135 L Potassium 3.5 D Chloride 108 H Carbon Dioxide 21 Anion Gap 5.0 BUN 9 Creatinine 0.51 L Est Cr Clr Drug Dosing 105.6 Est GFR ( Amer) 121.1 Est GFR (Non-Af Amer) 104.5 BUN/Creatinine Ratio 17.2 Glucose 115 H Calcium 7.7 L Phosphorus 2.7 Magnesium 03/21/20 05:18 WBC RBC Hgb Hct MCV MCH MCHC RDW Std Deviation RDW Coeff of Dewayne Plt Count MPV Immature Gran % (Auto) Neut % (Auto) Lymph % (Auto) [place] % (Auto) Eos % (Auto) Baso % (Auto) Immature Gran # (Auto) Neut # (Auto) Lymph # (Auto) [place] # (Auto) Eos # (Auto) Baso # (Auto) Toxic Granulation Dohle Bodies Echinocytes Sodium 137 Potassium 2.9 L D Chloride 112 H Carbon Dioxide 18 L Anion Gap 7.0 BUN 8 Creatinine 0.61 Est Cr Clr Drug Dosing 88.3 Est GFR ( Amer) 114.2 Est GFR (Non-Af Amer) 98.5 BUN/Creatinine Ratio 13.8 Glucose 115 H Calcium 7.3 L Phosphorus 2.8 Magnesium 1.7 L
[2020-03-21 13:49] LABS: BUN Creatinine Ratio 12.5 (10-20); Creatinine Clr Calc Pharmacy 115.6 ml/min; Est GFR (African American) 121.1; Est GFR (Non-African American) 104.5; Magnesium 2.2 mg/dl (1.8-2.4); Potassium 4.1 mmol/L (3.5-5.1)
--- NOTE | 2020-03-21 14:25 | XRay Report ---
XR femur LT 2V routine CLINICAL HISTORY: 60 years-old Female presenting with pain on the left knee, s/p ORIF. TECHNIQUE: Frontal and lateral views of the left femur were obtained. COMPARISON: 02/06/2020. FINDINGS: Redemonstration of total left hip arthroplasty. There has been revision of the plate and screw fixati on with buttress plate and screw fixation across the distal metaphyseal fracture and removal of the p rior plate and screw fixation. No significant angulation or AP malalignment at the comminuted fractur e plane in the distal metaphysis. There is less than one half shaft width medial displacement of the distal metaphyseal fracture fragment relative to the diaphysis. Underlying osteopenia suspected. [place] tional wire fixation of the subtrochanteric region of the left femur. No osseous erosion or new osseo us abnormality. Knee joint congruent without evidence of effusion. IMPRESSION: Postsurgical changes of internal fixation across the comminuted distal metaphyseal fracture of the le ft femur and hardware revision. Mild transverse displacement may be within the expected range of norm al. ACT 112: Negative or not required by law. Electronically signed by: Elias Joshi M.D. 03/21/2020 2:24 PM
--- NOTE | 2020-03-21 14:27 | XRay Report ---
XR knee LT 1 or 2V routine CLINICAL HISTORY: 60 years-old Female presenting with knee pain, s/p ORIF , r/o fracture. TECHNIQUE: Frontal and crosstable lateral views of the left knee were obtained. COMPARISON: Plain radiographs from 02/06/2020. FINDINGS: There has been interval buttress plate and screw fixation across the distal metaphyseal fracture, whi ch is comminuted. No angulation. No AP malalignment. 13 mm of less than one half shaft width medial d isplacement of the distal metaphyseal fracture fragment relative to the diaphysis. Hardware appears i ntact. Knee joint intact. No gross evidence of a knee joint effusion. No new fracture. IMPRESSION: 1. Mild medial displacement at the comminuted distal metaphyseal fracture plane of the left femur ma y be within the expected postsurgical range. 2. Internal fixation hardware without evidence of breakage. 3. No convincing evidence of a new injury. ACT 112: Negative or not required by law. Electronically signed by: Elias Joshi M.D. 03/21/2020 2:26 PM
--- NOTE | 2020-03-21 15:02 | Ultrasound Report ---
LEFT LOWER EXTREMITY VENOUS DOPPLER CLINICAL HISTORY: leg edema, r/o dvt COMPARISON STUDY: No previous studies for comparison. TECHNIQUE: Sonography of the deep venous system of the left lower extremity was performed. Compressi on and augmentation were evaluated. FINDINGS: The left common femoral, superficial femoral and popliteal veins were compressible. Augmen tation was normal. Flow was shown within the deep calf vessels. IMPRESSION: No evidence of deep venous thrombus within the left lower extremity. ACT 112: Negative or not required by law. Electronically signed by: Brian Hill M.D. 03/21/2020 3:01 PM
[2020-03-21] MEDS: PANTOprazole 40 MG TAB PO SCH (16:02)
[2020-03-21] MEDS: ENOXAPARIN INJ 40 MG/0.4 ML SYR SQ SCH (16:02)
[2020-03-21] MEDS: ACETAMINOPHEN 1,000 MG/100 ML VIAL IV SCH ×2 (16:03→21:08)
[2020-03-22] MEDS: KETOROLAC 30 MG/ML VIAL IV PRN ×2 (00:41→10:13)
[2020-03-22] MEDS: VANCOMYCIN HCL 250 MG/5 ML SOLN PO SCH ×4 (04:31→21:12)
[2020-03-22] MEDS: metroNIDAZOLE 500 MG/100 ML BAG IV SCH ×3 (04:32→21:12)
[2020-03-22] MEDS: RASPBERRY SYRUP 5 ML UDP PO SCH ×4 (04:32→21:12)
[2020-03-22 06:04] LABS: Hematocrit (blood only) 40.7 % (37-47); Mean Corpuscular Hgb Conc 31.9 g/dL (32-36); Mean Platelet Volume 11.6 fL (7.4-10.4); Platelet Count 201 K/uL (130-400); RDW Coefficient of Variation 17.3 % (11.5-14.5); Red Blood Count 4.33 M/uL (4.2-5.4); White Blood Count 5.48 K/uL (4.8-10.8)
[2020-03-22 06:31] LABS: Basophils # (auto) 0.03 K/uL (0-0.2); Basophils % (auto) 0.5 %; Dohle Bodies 1+; Echinocytes 3+; Eosinophils % (auto) 12.8 %; Immature Granulocytes # (auto) 0.02 K/uL (0.00-0.02); Immature Granulocytes % (auto) 0.4 %; Lymphocytes # (auto) 0.72 K/uL (1.2-3.4); Lymphocytes % (auto) 13.1 %; Monocytes # (auto) 0.41 K/uL (0.11-0.59); Monocytes % (auto) 7.5 %; Neutrophils % (auto) 65.7 %; Ovalocytes 1+; Toxic Granulation 3+
[2020-03-22] MEDS: CALCIUM 600MG + VIT D 400 IU TAB PO SCH (06:31)
[2020-03-22 06:49] LABS: BUN Creatinine Ratio 11.7 (10-20); Calcium 7.7 mg/dl (8.5-10.1); Creatinine Clr Calc Pharmacy 97.9 ml/min; Est GFR (African American) 114.2; Est GFR (Non-African American) 98.5; Magnesium 2.1 mg/dl (1.8-2.4); Phosphorus 2.6 mg/dl (2.5-4.9); Potassium 3.9 mmol/L (3.5-5.1)
[2020-03-22] MEDS: MULTIVITAMIN TAB PO SCH (08:15)
[2020-03-22] MEDS: ASCORBIC ACID 500 MG TAB PO SCH (08:15)
[2020-03-22] MEDS: FERROUS SULFATE 325 MG TAB PO SCH ×2 (08:15→16:04)
[2020-03-22] MEDS: POTASSIUM CHLORIDE 20 MEQ TABCR PO SCH (08:15)
[2020-03-22] MEDS: ENOXAPARIN INJ 40 MG/0.4 ML SYR SQ SCH (08:16)
[2020-03-22] MEDS: ACETAMINOPHEN 1,000 MG/100 ML VIAL IV SCH ×2 (08:18→21:07)
[2020-03-22] MEDS: METOPROLOL TARTRATE 50 MG TAB PO SCH ×2 (08:34→21:12)
[2020-03-22] MEDS: PANTOprazole 40 MG TAB PO SCH (10:03)
[2020-03-22] MEDS: ONDANSETRON INJ 2 MG/ML 2 ML VIAL IV PRN (13:53)
--- NOTE | 2020-03-22 15:37 | Hospitalist Progress Note ---
Date of Service March 22, 2020 Assessment & Plan (1) C. difficile colitis: (2) Fever: 60 year old female with history of Recent ORIF Left femur complicated by C Diff, Pneumonia, Encephalopathy, HTN, Liver Cirrhosis presenting with fever. C. difficile Colitis, 2nd Episode Dehydration from Clostridium difficile diarrhea - CT scan: Findings consistent with severe proctocolitis likely reflecting C. difficile colitis. Colorectal wall thickening increased since CT of February 29, 2020 -GI and ID consulted Infectious disease recommend: Vancomycin dosing as 14 days at 250mg QID, then decreased to 125mg QID x 4 weeks with taper following 03/20/20 - still having multiple BMs discussed with GI KUB: possible beginning ileus add Flagyl IV, start IV NSS + K, oral K also ordered, clear liquid diet, OOB to chair QS 03/22 diarrhea gradually improving continue Vanco and Flagyl advance to sofr diet Ofirmev q12h, Toradol PRN Hypokalemia - from diarrhea - replace with IV and PO K monitor Hypophosphatemia - PO K phos ordered, resolved Acute Kidney Injury - resolved Pneumonia is ruled out, COVID-19 is ruled out - per Dr. Joshua David's notes: -admission CXR on 03/17/2020: Mild left basilar opacity which favors atelectasis. However, an infectious process could appear similar. Otherwise, unchanged appearance of the chest. Emphysema. Stable interstitial thickening. -was informed on admission by Dr. Harry, patient's previous hospitalist who has seen patient in the past and she is concerned that there are indeed new lung infiltrates and she advised COVID-19 on admission which resulted as negative result on 03/18/2020. patient was started on empiric respiratory antibiotic of Aztreonam and doxycycline (has anaphylactic penicillin allergy), had nasal swab negative for MRSA , procalcitonin elevated as 13 -by 03/18/2020, patient admission blood culture speciating as gram positive cocci in 1 of 2 bottles but is negative for MRSA by PCR. blood cultures repeated on 03/18/2020. because of severity of C.difficile and likely the blood culture is contaminant and the CT scan ruling out pneumonia, will stop aztreonam and doxycyline -by 03/18/2020, patient had CT scan " Diffuse emphysematous change throughout both hemithoraces. Superimposed peribronchial and parenchymal prominence both lung bases diminished compared to the prior study. Scattered bulla are present bilaterally and are stable. There does not appear to be evidence for an acute or superimposed infiltrative process." Bacteremia ruled out - 1 bottle positive for coag staph not lugdunensis, likely contamination Cirrhosis: - per Dr. Joshua David's notes: -as per review of 03/04/2020 [facility] discharge summary that patient had CT scan revealing cirrhosis of liver with evidence of portal hypertension and and suggested that this was incidentally noted on CT at [facility] in January 2020 as a new finding -Patient had CT scan on previous hospitalization with Suspected hepatic fibrosis/cirrhosis with portal hypertension evidenced by splenomegaly and ascites -admission with right quadrant pain, Hyperammonemia of 48 on 03/17/2020 with INR 1.7 confirms cirrhosis -03/18/2020: "Cirrhosis with manifestations of portal hypertension including extensive varices formation, moderate splenomegaly and a small amount of ascites. Mild focal intrahepatic biliary ductal dilatation adjacent to the gallbladder, a finding of questionable significance. A follow-up liver protocol CT in 6 months to ensure stability is recommended" -gastroenterology consult following the patient--> recommend outpatient ff up with GI clinic for further work up, may need liver transplant referral after completing treatment for C.difficile Anemia - at baseline Thrombocytopenia -significantly improved Hypertension - continue Metoprolol History of Left femur fracture with ORIF repair -repaired in middle of January 2020 in [facility] - reports increased pain on the left knee, xray ordered Doppler US : no DVT Knee xray: 1. Mild medial displacement at the comminuted distal metaphyseal fracture plane of the left femur may be within the expected postsurgical range. 2. Internal fixation hardware without evidence of breakage. 3. No convincing evidence of a new injury. Ortho consulted PRN toradol, IV Ofirmev q12h ice pack History of compression fractures of spine - pain management per #1 Osteoporosis Vitamin D deficiency - Vit D 17 --> 27 continue Vit D supplementation Pulmonary nodule -9 mm subsolid RML nodule noted on CT 02/29/2020. Patient is a smoker. Follow-up CT in 3-6 months per guidelines. History of Mood disorder -as per outpatient records Full Code Disposition pending return to [facility] when medically stable Admission and Anticipated Discharge Date Admission Date: March 17, 2020 Subjective ff up for c diff colitis seen resting in bed, comfortable more conversant, interactive today 2 BMs recorded yesterday, 2 BMs this AM abdominal discomfort about the same , no nausea no chills no other symptoms Review of Systems Review of Systems: All systems reviewed & are unremarkable except as noted in HPI & below Physical Exam Physical Exam: General- oriented x 3, not in distress, speaks in sentences with no effort or accessory muscle use Eyes- anicteric Neck- no JVD Lungs- clear breath sounds bilaterally, no rales/wheezes Heart- normal rate, regular rhythm; no murmurs Abdomen- normal bowel sounds, mildly distended, soft, nontender Extremities- no pretibial edema, no calf tenderness Neuro- alert, oriented x 3; no gross focal neurologic deficits Skin- warm & dry Results & Data Results & Data ([facility]) Vital Signs (Past 12 Hours) Vital Signs Temp Pulse Pulse Resp BP Pulse Ox 03/22/20 14:47 36.7 C 91 H 20 110/68 100 03/22/20 10:54 36.6 C 83 18 99/59 L 95 03/22/20 08:32 96/58 L 03/22/20 07:12 36.8 C 77 18 100/64 95 03/22/20 06:20 67 03/22/20 04:00 36.9 C 65 18 102/62 96 Laboratory Results Laboratory Results - last 24 hr 03/22/20 03/22/20 05:34 05:34 WBC 5.48 RBC 4.33 Hgb 13.0 Hct 40.7 MCV 94.0 MCH 30.0 MCHC 31.9 L RDW Std Deviation 60.0 H RDW Coeff of Dewayne 17.3 H Plt Count 201 MPV 11.6 H Immature Gran % (Auto) 0.4 Neut % (Auto) 65.7 Lymph % (Auto) 13.1 [place] % (Auto) 7.5 Eos % (Auto) 12.8 Baso % (Auto) 0.5 Immature Gran # (Auto) 0.02 Neut # (Auto) 3.60 Lymph # (Auto) 0.72 L [place] # (Auto) 0.41 Eos # (Auto) 0.70 H Baso # (Auto) 0.03 Toxic Granulation 3+ Dohle Bodies 1+ Ovalocytes 1+ Echinocytes 3+ Sodium 136 Potassium 3.9 Chloride 112 H Carbon Dioxide 20 L Anion Gap 5.0 BUN 7 Creatinine 0.61 Est Cr Clr Drug Dosing 97.9 Est GFR ( Amer) 114.2 Est GFR (Non-Af Amer) 98.5 BUN/Creatinine Ratio 11.7 Glucose 105 H Calcium 7.7 L Phosphorus 2.6 Magnesium 2.1
--- NOTE | 2020-03-22 16:44 | Consultation Report ---
DATE OF CONSULTATION: 03/22/2020 The patient was seen at the request of Dr. Joshua David. HISTORY OF PRESENT ILLNESS: This is a 60-year-old female admitted for severe GI complaints and other multiple medical comorbidities. She had a recent stay at [facility] after she had ORIF of a left distal femoral fracture performed in [place] by one of the orthopedic surgeons. She was then discharged to [facility], had other medical issues and was admitted to the hospital here at [facility] for further care and management. The patient complains of nausea today. She has no complaints of significant left knee or leg pain at this time. States that her leg is progressing as she would anticipate after surgery approximately 4 weeks ago. PAST MEDICAL HISTORY: Bipolar disorder, cirrhosis of the liver, depression, history of CVA, osteoporosis, pulmonary nodule, schizophrenia, vitamin D deficiency. PAST SURGICAL HISTORY: Appendectomy, shoulder surgery, total hip replacement on the left, femur fracture 1 month later with repair both [place] [address] [place], status post ORIF of distal femoral fracture approximately 4 weeks prior in [place]. ALLERGIES: PENICILLIN, SEVERE ANAPHYLAXIS; HYDROCODONE, INTERMEDIATE NAUSEA. HOME MEDICATIONS: Tylenol, acetaminophen/codeine, albuterol sulfate, vitamin C, calcium plus vitamin D, fluticasone propionate, loratadine, metoprolol, multivitamin, olopatadine, vitamin D2, ferrous sulfate and enoxaparin. SOCIAL HISTORY: She is and lives with her spouse. Former tobacco smoker. Denies drug or alcohol use. She has no work history. PHYSICAL EXAMINATION: This is a 60-year-old female lying supine in her hospital room bed. She is awake and alert and oriented x3. Speech is somewhat affected due to edentulous condition of her mouth and she wears hearing aids bilaterally. Examination of the left lower extremity demonstrates healed left lateral distal femoral incision. Lemuel have been removed. There is a dry dressing present. There is a minimal scant intermittent punctate drainage that appears to be serous in nature. No signs or symptoms of infection, no erythema, no streaking, no induration. The incision edges are well coapted. Bilateral feet are cool and there is sensation present. Dorsalis pedis and posterior tibial pulses are palpable. Limited range of motion due to stiffness from the left distal femur region. No local tenderness with light palpation. Radiographs reviewed demonstrating a well-fixed distal femoral plate with multiple locking screws in the left lower extremity. This is below a hemiarthroplasty of the hip. It appears to be well fixed. IMPRESSION: Status post open reduction and internal fixation of distal femoral fracture status post fall approximately 4 weeks ago performed in [facility]. RECOMMENDATION: Maintain nonweightbearing on the left lower extremity for a period of at least 4 weeks. Follow up with [facility] as this is within their postoperative period. Continue occupational therapy and physical therapy, maintaining nonweightbearing on the left lower extremity. Range of motion and transfers with assist x1 and a walker is reasonable. Follow up p.r.n. with Dr. Moffett at the [facility], otherwise should schedule a followup procedure with [facility] or their orthopedic department. Dressing changes q.o.d. Thank you for the opportunity to consult in the care of this patient.
[2020-03-23] MEDS: metroNIDAZOLE 500 MG/100 ML BAG IV SCH ×3 (03:11→20:24)
[2020-03-23] MEDS: VANCOMYCIN HCL 250 MG/5 ML SOLN PO SCH ×4 (03:12→21:32)
[2020-03-23] MEDS: RASPBERRY SYRUP 5 ML UDP PO SCH ×4 (03:12→21:32)
[2020-03-23] MEDS: CALCIUM 600MG + VIT D 400 IU TAB PO SCH (06:13)
[2020-03-23 06:38] LABS: Hematocrit (blood only) 39.9 % (37-47); Hemoglobin 12.7 g/dL (12.0-16.0); Mean Corpuscular Hemoglobin 29.7 pg (25-34); Mean Corpuscular Hgb Conc 31.8 g/dL (32-36); Mean Corpuscular Volume 93.2 fL (80-100); Mean Platelet Volume 11.4 fL (7.4-10.4); Platelet Count 209 K/uL (130-400); RDW Coefficient of Variation 17.5 % (11.5-14.5); RDW Standard Deviation 59.8 fL (36.4-46.3); Red Blood Count 4.28 M/uL (4.2-5.4); White Blood Count 9.83 K/uL (4.8-10.8)
[2020-03-23 07:08] LABS: BUN Creatinine Ratio 14.8 (10-20); Creatinine Clr Calc Pharmacy 81.8 ml/min; Est GFR (African American) 103.8; Est GFR (Non-African American) 89.5; Magnesium 1.9 mg/dl (1.8-2.4); Phosphorus 2.7 mg/dl (2.5-4.9); Potassium 4.5 mmol/L (3.5-5.1)
[2020-03-23 07:24] LABS: Anisocytosis Present; Basophils # (auto) 0.02 K/uL (0-0.2); Basophils % (auto) 0.2 %; Dohle Bodies 1+; Echinocytes 2+; Eosinophils # (auto) 0.39 K/uL (0-0.5); Immature Granulocytes # (auto) 0.04 K/uL (0.00-0.02); Immature Granulocytes % (auto) 0.4 %; Lymphocytes # (auto) 0.57 K/uL (1.2-3.4); Lymphocytes % (auto) 5.8 %; Monocytes # (auto) 0.32 K/uL (0.11-0.59); Monocytes % (auto) 3.3 %; Neutrophils # (auto) 8.49 K/uL (1.4-6.5); Neutrophils % (auto) 86.3 %; Toxic Granulation 1+
[2020-03-23] MEDS: FERROUS SULFATE 325 MG TAB PO SCH ×2 (08:17→17:11)
[2020-03-23] MEDS: MULTIVITAMIN TAB PO SCH (08:17)
[2020-03-23] MEDS: METOPROLOL TARTRATE 50 MG TAB PO SCH ×2 (08:17→20:25)
[2020-03-23] MEDS: POTASSIUM CHLORIDE 20 MEQ TABCR PO SCH (08:17)
[2020-03-23] MEDS: ASCORBIC ACID 500 MG TAB PO SCH (08:17)
[2020-03-23] MEDS: ENOXAPARIN INJ 40 MG/0.4 ML SYR SQ SCH (08:18)
[2020-03-23] MEDS: PANTOprazole 40 MG TAB PO SCH (08:19)
[2020-03-23] MEDS: ACETAMINOPHEN 1,000 MG/100 ML VIAL IV SCH (08:24)
[2020-03-23] MEDS ORDERED: ERGOCALCIFEROL 50,000 UNITS CAP PO SCH (09:00)
[2020-03-23] MEDS: SODIUM BICARBONATE 8.4% 150 MEQ in DEXTROSE 5% 1,000 ML IV SCH (10:25)
--- NOTE | 2020-03-23 11:35 | Hospitalist Progress Note ---
Date of Service March 23, 2020 Assessment & Plan (1) C. difficile colitis: (2) Fever: 60 year old female with history of Recent ORIF Left femur complicated by C Diff, Pneumonia, Encephalopathy, HTN, Liver Cirrhosis presenting with fever. C. difficile Colitis, 2nd Episode Dehydration from Clostridium difficile diarrhea - CT scan: Findings consistent with severe proctocolitis likely reflecting C. difficile colitis. Colorectal wall thickening increased since CT of February 29, 2020 -GI and ID consulted Infectious disease recommend: Vancomycin dosing as 14 days at 250mg QID, then decreased to 125mg QID x 4 weeks with taper following 03/20/20 - still having multiple BMs discussed with GI KUB: possible beginning ileus add Flagyl IV, start IV NSS + K, oral K also ordered, clear liquid diet, OOB to chair QS 03/23 diarrhea continues to improve gradually continue Vanco and Flagyl soft diet, non dairy, low fat Ofirmev q12h, Toradol PRN Hypokalemia - from diarrhea - replaced with IV and PO K resolved Hypophosphatemia - PO K phos ordered, resolved Acute Kidney Injury - resolved Pneumonia is ruled out, COVID-19 is ruled out - per Dr. Joshua David's notes: -admission CXR on 03/17/2020: Mild left basilar opacity which favors atelectasis. However, an infectious process could appear similar. Otherwise, unchanged appearance of the chest. Emphysema. Stable interstitial thickening. -was informed on admission by Dr. Harry, patient's previous hospitalist who has seen patient in the past and she is concerned that there are indeed new lung infiltrates and she advised COVID-19 on admission which resulted as negative result on 03/18/2020. patient was started on empiric respiratory antibiotic of Aztreonam and doxycycline (has anaphylactic penicillin allergy), had nasal swab negative for MRSA , procalcitonin elevated as 13 -by 03/18/2020, patient admission blood culture speciating as gram positive cocci in 1 of 2 bottles but is negative for MRSA by PCR. blood cultures repeated on 03/18/2020. because of severity of C.difficile and likely the blood culture is contaminant and the CT scan ruling out pneumonia, will stop aztreonam and doxycyline -by 03/18/2020, patient had CT scan " Diffuse emphysematous change throughout both hemithoraces. Superimposed peribronchial and parenchymal prominence both lung bases diminished compared to the prior study. Scattered bulla are present bilaterally and are stable. There does not appear to be evidence for an acute or superimposed infiltrative process." Bacteremia ruled out - 1 bottle positive for coag staph not lugdunensis, likely contamination Cirrhosis: - per Dr. Joshua David's notes: -as per review of 03/04/2020 [facility] [place] discharge summary that patient had CT scan revealing cirrhosis of liver with evidence of portal hypertension and and suggested that this was incidentally noted on CT at [facility] in January 2020 as a new finding -Patient had CT scan on previous hospitalization with Suspected hepatic fibrosis/cirrhosis with portal hypertension evidenced by splenomegaly and ascites -admission with right quadrant pain, Hyperammonemia of 48 on 03/17/2020 with INR 1.7 confirms cirrhosis -03/18/2020: "Cirrhosis with manifestations of portal hypertension including extensive varices formation, moderate splenomegaly and a small amount of ascites. Mild focal intrahepatic biliary ductal dilatation adjacent to the gallbladder, a finding of questionable significance. A follow-up liver protocol CT in 6 months to ensure stability is recommended" -gastroenterology consult following the patient--> recommend outpatient ff up with GI clinic for further work up, may need liver transplant referral after completing treatment for C.difficile Anemia - at baseline Thrombocytopenia -significantly improved Hypertension - continue Metoprolol History of Left femur fracture with ORIF repair -repaired in middle of January 2020 in [facility] - reports increased pain on the left knee, xray ordered Doppler US : no DVT Knee xray: 1. Mild medial displacement at the comminuted distal metaphyseal fracture plane of the left femur may be within the expected postsurgical range. 2. Internal fixation hardware without evidence of breakage. 3. No convincing evidence of a new injury. Ortho consulted--> recommend to nonweightbearing on the Left PRN toradol, IV Ofirmev q12h ice pack History of compression fractures of spine - pain management per #1 Osteoporosis Vitamin D deficiency - Vit D 17 --> 27 continue Vit D supplementation Pulmonary nodule -9 mm subsolid RML nodule noted on CT 02/29/2020. Patient is a smoker. Follow-up CT in 3-6 months per guidelines. History of Mood disorder -as per outpatient records DVT prophylaxis Lovenox 40mg SC Full Code Disposition pending return to [facility] when medically stable Admission and Anticipated Discharge Date Admission Date: March 17, 2020 Subjective ff up for C diff colitis seen resting in bed, not in distress, comfortable states she feels a little better today had total of 3 loose BMs yesterday, none today so far some abdominal "soreness" but no nausea tolerating soft diet so far denies SOB, chest pain, palpitations, dizziness no other symptoms Review of Systems Review of Systems: All systems reviewed & are unremarkable except as noted in HPI & below Physical Exam Physical Exam: General- oriented x 3, not in distress, speaks in sentences with no effort or accessory muscle use Eyes- anicteric Neck- no JVD Lungs- clear BS bilaterally no wheezing Heart- normal rate, regular rhythm; no murmurs Abdomen- normal bowel sounds, nondistended, soft, nontender Extremities- mild LLE edema, no calf tenderness Neuro- alert, oriented x 3; no gross focal neurologic deficits Skin- warm & dry Results & Data Results & Data ([facility]) Vital Signs (Past 12 Hours) Vital Signs Temp Pulse Resp BP Pulse Ox 03/23/20 08:04 36.8 C 92 H 20 111/66 97 03/23/20 04:41 37.1 C 80 18 95/59 L 96 03/22/20 23:53 37.0 C 76 18 98/54 L 96 Laboratory Results Laboratory Results - last 24 hr 03/23/20 03/23/20 06:07 06:07 WBC 9.83 RBC 4.28 Hgb 12.7 Hct 39.9 MCV 93.2 MCH 29.7 MCHC 31.8 L RDW Std Deviation 59.8 H RDW Coeff of Dewayne 17.5 H Plt Count 209 MPV 11.4 H Immature Gran % (Auto) 0.4 Neut % (Auto) 86.3 Lymph % (Auto) 5.8 [place] % (Auto) 3.3 Eos % (Auto) 4.0 Baso % (Auto) 0.2 Immature Gran # (Auto) 0.04 H Neut # (Auto) 8.49 H Lymph # (Auto) 0.57 L [place] # (Auto) 0.32 Eos # (Auto) 0.39 Baso # (Auto) 0.02 Toxic Granulation 1+ Dohle Bodies 1+ Anisocytosis Present Echinocytes 2+ Sodium 135 L Potassium 4.5 D Chloride 112 H Carbon Dioxide 15 L Anion Gap 8.0 BUN 11 D Creatinine 0.73 Est Cr Clr Drug Dosing 81.8 Est GFR ( Amer) 103.8 Est GFR (Non-Af Amer) 89.5 BUN/Creatinine Ratio 14.8 Glucose 103 H Calcium 8.0 L Phosphorus 2.7 Magnesium 1.9
[2020-03-23 12:22] LABS: INR 2.3 (0.9-1.1); Prothrombin Time 23.2 Seconds (9.0-12.0)
[2020-03-23 12:36] LABS: Bilirubin,Total 0.6 mg/dl (0.2-1); Total Protein 5.9 gm/dl (6.4-8.2)
--- NOTE | 2020-03-23 13:25 | Orthopedic Progress Note ---
Date of Service March 23, 2020 Assessment & Plan (1) Status post open reduction and internal fixation (ORIF) of fracture: Patient with left lower extremity and knee pain status post ORIF displaced distal femoral fracture at [facility]. Recommend nonweightbearing left lower extremity for period of approximately 4 weeks with re-x-ray left femur and knee prior to initiating any type of weightbearing left lower extremity.. Physical therapy and Occupational Therapy PRN left knee. Follow-up with orthopedic service [facility] as previously arranged. May follow-up with Dr. Moffett at [facility] as needed Present on Admission?: Yes Admission and Anticipated Discharge Date Admission Date: March 17, 2020 Subjective Still feeling nauseous. Left leg nontender and nonpainful while laying in bed. Physical Exam Physical Exam: Left lower extremity healing incisions. No fluctuance, no erythema, no streaking. Minimal tenderness to palpation at the plate insertion site lateral distal femur. Active and passive range of motion within normal limits status post surgical repair. Distal neurovascular status intact. Results & Data ([facility]) Vital Signs (Past 12 Hours) Vital Signs Temp Pulse Pulse Resp BP Pulse Ox 03/23/20 11:00 37.1 C 91 H 16 96/55 L 97 03/23/20 08:04 36.8 C 92 H 20 111/66 97 03/23/20 08:00 82 03/23/20 04:41 37.1 C 80 18 95/59 L 96
[2020-03-23 16:47] LABS: BUN Creatinine Ratio 11.6 (10-20); Bilirubin Direct 0.2 mg/dl (0-0.2); Calcium 7.8 mg/dl (8.5-10.1); Creatinine Clr Calc Pharmacy 58.6 ml/min; Est GFR (African American) 69.2; Est GFR (Non-African American) 59.7; Potassium 4.5 mmol/L (3.5-5.1)
[2020-03-24] MEDS: SODIUM BICARBONATE 8.4% 150 MEQ in DEXTROSE 5% 1,000 ML IV SCH (02:23)
[2020-03-24] MEDS: RASPBERRY SYRUP 5 ML UDP PO SCH ×4 (04:33→21:34)
[2020-03-24] MEDS: VANCOMYCIN HCL 250 MG/5 ML SOLN PO SCH ×4 (04:33→21:34)
[2020-03-24] MEDS: metroNIDAZOLE 500 MG/100 ML BAG IV SCH ×3 (04:33→21:32)
[2020-03-24 05:54] LABS: Hematocrit (blood only) 36.6 % (37-47); Hemoglobin 11.8 g/dL (12.0-16.0); Mean Corpuscular Hemoglobin 30.3 pg (25-34); Mean Corpuscular Hgb Conc 32.2 g/dL (32-36); Mean Corpuscular Volume 93.8 fL (80-100); Mean Platelet Volume 11.2 fL (7.4-10.4); Platelet Count 187 K/uL (130-400); RDW Coefficient of Variation 17.6 % (11.5-14.5); RDW Standard Deviation 59.7 fL (36.4-46.3); White Blood Count 8.45 K/uL (4.8-10.8)
[2020-03-24 06:26] LABS: BUN Creatinine Ratio 17.6 (10-20); Calcium 7.7 mg/dl (8.5-10.1); Creatinine Clr Calc Pharmacy 110.1 ml/min; Est GFR (African American) 118.2; Est GFR (Non-African American) 101.9; Magnesium 1.9 mg/dl (1.8-2.4); Phosphorus 1.7 mg/dl (2.5-4.9)
[2020-03-24] MEDS: CALCIUM 600MG + VIT D 400 IU TAB PO SCH (06:29)
[2020-03-24 06:42] LABS: Basophils # (auto) 0.02 K/uL (0-0.2); Basophils % (auto) 0.2 %; Eosinophils # (auto) 0.29 K/uL (0-0.5); Eosinophils % (auto) 3.4 %; Immature Granulocytes # (auto) 0.07 K/uL (0.00-0.02); Immature Granulocytes % (auto) 0.8 %; Lymphocytes # (auto) 0.57 K/uL (1.2-3.4); Lymphocytes % (auto) 6.7 %; Monocytes % (auto) 3.6 %; Neutrophils % (auto) 85.3 %; Toxic Granulation 1+; Toxic Vacuolation 1+
[2020-03-24] MEDS: FERROUS SULFATE 325 MG TAB PO SCH ×2 (08:29→16:46)
[2020-03-24] MEDS: METOPROLOL TARTRATE 50 MG TAB PO SCH ×2 (08:29→21:34)
[2020-03-24] MEDS: ENOXAPARIN INJ 40 MG/0.4 ML SYR SQ SCH (08:31)
[2020-03-24] MEDS: MULTIVITAMIN TAB PO SCH (08:31)
[2020-03-24] MEDS: PANTOprazole 40 MG TAB PO SCH (08:32)
[2020-03-24] MEDS: ASCORBIC ACID 500 MG TAB PO SCH (08:32)
[2020-03-24] MEDS: POT PHOSPHATE MONOBASIC W/ SOD TAB PO SCH ×4 (10:28→21:37)
[2020-03-24 18:19] LABS: Calcium 7.4 mg/dl (8.5-10.1); Est GFR (African American) 88.8; Est GFR (Non-African American) 76.6; Potassium 3.9 mmol/L (3.5-5.1)
--- NOTE | 2020-03-24 18:29 | Hospitalist Progress Note ---
Date of Service March 24, 2020 Assessment & Plan (1) C. difficile colitis: (2) Fever: 60 year old female with history of Recent ORIF Left femur complicated by C Diff, Pneumonia, Encephalopathy, HTN, Liver Cirrhosis presenting with fever. C. difficile Colitis, 2nd Episode Dehydration from Clostridium difficile diarrhea - CT scan: Findings consistent with severe proctocolitis likely reflecting C. difficile colitis. Colorectal wall thickening increased since CT of February 29, 2020 -GI and ID consulted Infectious disease recommend: Vancomycin dosing as 14 days at 250mg QID, then decreased to 125mg QID x 4 weeks with taper following 03/20/20 - still having multiple BMs discussed with GI KUB: possible beginning ileus add Flagyl IV, start IV NSS + K, oral K also ordered, clear liquid diet, OOB to chair QS 03/24 diarrhea slowly improving discussed with GI, add Questran BID and Florastor continue Vanco and Flagyl soft diet, non dairy, low fat Toradol PRN Hypokalemia - from diarrhea - replaced with IV and PO K resolved Hypophosphatemia - PO K phos ordered Acute Kidney Injury - resolved Pneumonia is ruled out, COVID-19 is ruled out - per Dr. Joshua David's notes: -admission CXR on 03/17/2020: Mild left basilar opacity which favors atelectasis. However, an infectious process could appear similar. Otherwise, unchanged appearance of the chest. Emphysema. Stable interstitial thickening. -was informed on admission by Dr. Harry, patient's previous hospitalist who has seen patient in the past and she is concerned that there are indeed new lung infiltrates and she advised COVID-19 on admission which resulted as negative result on 03/18/2020. patient was started on empiric respiratory antibiotic of Aztreonam and doxycycline (has anaphylactic penicillin allergy), had nasal swab negative for MRSA , procalcitonin elevated as 13 -by 03/18/2020, patient admission blood culture speciating as gram positive cocci in 1 of 2 bottles but is negative for MRSA by PCR. blood cultures repeated on 03/18/2020. because of severity of C.difficile and likely the blood culture is contaminant and the CT scan ruling out pneumonia, will stop aztreonam and doxycyline -by 03/18/2020, patient had CT scan " Diffuse emphysematous change throughout both hemithoraces. Superimposed peribronchial and parenchymal prominence both lung bases diminished compared to the prior study. Scattered bulla are present bilaterally and are stable. There does not appear to be evidence for an acute or superimposed infiltrative process." Bacteremia ruled out - 1 bottle positive for coag staph not lugdunensis, likely contamination Cirrhosis: - per Dr. Joshua David's notes: -as per review of 03/04/2020 [facility] discharge summary that patient had CT scan revealing cirrhosis of liver with evidence of portal hypertension and and suggested that this was incidentally noted on CT at [facility] in January 2020 as a new finding -Patient had CT scan on previous hospitalization with Suspected hepatic fibrosis/cirrhosis with portal hypertension evidenced by splenomegaly and ascites -admission with right quadrant pain, Hyperammonemia of 48 on 03/17/2020 with INR 1.7 confirms cirrhosis -03/18/2020: "Cirrhosis with manifestations of portal hypertension including extensive varices formation, moderate splenomegaly and a small amount of ascites. Mild focal intrahepatic biliary ductal dilatation adjacent to the gallbladder, a finding of questionable significance. A follow-up liver protocol CT in 6 months to ensure stability is recommended" -gastroenterology consult following the patient--> recommend outpatient ff up with GI clinic for further work up, may need liver transplant referral after completing treatment for C.difficile Anemia - at baseline Thrombocytopenia -significantly improved Hypertension - continue Metoprolol History of Left femur fracture with ORIF repair -repaired in middle of January 2020 in [facility] - reports increased pain on the left knee, xray ordered Doppler US : no DVT Knee xray: 1. Mild medial displacement at the comminuted distal metaphyseal fracture plane of the left femur may be within the expected postsurgical range. 2. Internal fixation hardware without evidence of breakage. 3. No convincing evidence of a new injury. Ortho consulted--> recommend to nonweightbearing on the Left PRN toradol, IV Ofirmev q12h ice pack History of compression fractures of spine - pain management per #1 Osteoporosis Vitamin D deficiency - Vit D 17 --> 27 continue Vit D supplementation Pulmonary nodule -9 mm subsolid RML nodule noted on CT 02/29/2020. Patient is a smoker. Follow-up CT in 3-6 months per guidelines. History of Mood disorder -as per outpatient records DVT prophylaxis Lovenox 40mg SC Full Code Disposition pending return to [facility] when medically stable Admission and Anticipated Discharge Date Admission Date: March 17, 2020 Subjective ff up for C diff colitis seen resting in bed, not in distress somewhat weak but conversant, not in distress still has 2-3 loose BMs per day abdomen feels somewhat sore denies chest pain,SOB no other symptoms Review of Systems Review of Systems: All systems reviewed & are unremarkable except as noted in HPI & below Physical Exam Physical Exam: General- oriented x 3, not in distress, speaks in sentences with no effort or accessory muscle use weak Eyes- anicteric Neck- no JVD Lungs- clear BS BL Heart- normal rate, regular rhythm; no murmurs Abdomen- hyperactive bowel sounds, nondistended, soft, nontender Extremities- no pretibial edema, no calf tenderness Neuro- alert, oriented x 3; no gross focal neurologic deficits Skin- warm & dry Results & Data Results & Data ([facility]) Vital Signs (Past 12 Hours) Vital Signs Temp Pulse Pulse Resp BP BP Pulse Ox 03/24/20 17:52 81 03/24/20 15:04 37.0 C 79 18 95/57 L 98 03/24/20 11:28 36.9 C 68 16 95/55 L 96 03/24/20 11:22 80 03/24/20 07:08 36.3 C L 89 18 108/62 97 Laboratory Results Laboratory Results - last 24 hr 03/24/20 03/24/20 03/24/20 05:21 05:21 17:51 WBC 8.45 RBC 3.90 L Hgb 11.8 L Hct 36.6 L MCV 93.8 MCH 30.3 MCHC 32.2 RDW Std Deviation 59.7 H RDW Coeff of Dewayne 17.6 H Plt Count 187 MPV 11.2 H Immature Gran % (Auto) 0.8 Neut % (Auto) 85.3 Lymph % (Auto) 6.7 [place] % (Auto) 3.6 Eos % (Auto) 3.4 Baso % (Auto) 0.2 Immature Gran # (Auto) 0.07 H Neut # (Auto) 7.20 H Lymph # (Auto) 0.57 L [place] # (Auto) 0.30 Eos # (Auto) 0.29 Baso # (Auto) 0.02 Toxic Granulation 1+ Toxic Vacuolation 1+ Sodium 137 137 Potassium 4.0 3.9 Chloride 109 H 109 H Carbon Dioxide 19 L 18 L Anion Gap 9.0 10.0 BUN 10 10 Creatinine 0.55 L D 0.83 Est Cr Clr Drug Dosing 110.1 73.0 Est GFR ( Amer) 118.2 88.8 Est GFR (Non-Af Amer) 101.9 76.6 BUN/Creatinine Ratio 17.6 12.0 Glucose 106 H 170 H Calcium 7.7 L 7.4 L Phosphorus 1.7 L D 2.4 L Magnesium 1.9
[2020-03-24 18:56] LABS: Phosphorus 2.4 mg/dl (2.5-4.9)
[2020-03-24] MEDS ORDERED: NYSTATIN SUSP 500,000 U/5 ML UDC PO SCH (21:00)
[2020-03-24] MEDS: NYSTATIN SUSP 500,000 U/5 ML UDC PO SCH (21:32)
[2020-03-24] MEDS: SACCHAROMYCES BOULARDII 250 MG CAP PO SCH (21:33)
[2020-03-24] MEDS: CHOLESTYRAMINE LIGHT 4 GM PKT PO SCH (21:37)
[2020-03-25] MEDS: VANCOMYCIN HCL 250 MG/5 ML SOLN PO SCH ×4 (04:27→21:12)
[2020-03-25] MEDS: RASPBERRY SYRUP 5 ML UDP PO SCH ×4 (04:27→21:12)
[2020-03-25] MEDS: metroNIDAZOLE 500 MG/100 ML BAG IV SCH ×3 (04:44→21:12)
[2020-03-25] MEDS: CALCIUM 600MG + VIT D 400 IU TAB PO SCH (04:45)
[2020-03-25 07:12] LABS: BUN Creatinine Ratio 16.7 (10-20); Calcium 7.7 mg/dl (8.5-10.1); Est GFR (African American) 118.2; Est GFR (Non-African American) 101.9; Potassium 3.1 mmol/L (3.5-5.1)
[2020-03-25] MEDS: ASCORBIC ACID 500 MG TAB PO SCH (08:43)
[2020-03-25] MEDS: MULTIVITAMIN TAB PO SCH (08:43)
[2020-03-25] MEDS: SACCHAROMYCES BOULARDII 250 MG CAP PO SCH ×2 (08:43→21:29)
[2020-03-25] MEDS: METOPROLOL TARTRATE 50 MG TAB PO SCH (08:44)
[2020-03-25] MEDS: POT PHOSPHATE MONOBASIC W/ SOD TAB PO SCH ×4 (08:44→21:12)
[2020-03-25] MEDS: ENOXAPARIN INJ 40 MG/0.4 ML SYR SQ SCH (08:44)
[2020-03-25] MEDS: NYSTATIN SUSP 500,000 U/5 ML UDC PO SCH ×4 (08:45→21:11)
[2020-03-25] MEDS: FERROUS SULFATE 325 MG TAB PO SCH ×2 (08:46→17:24)
[2020-03-25] MEDS: ONDANSETRON INJ 2 MG/ML 2 ML VIAL IV PRN (09:06)
[2020-03-25 09:32] LABS: INR 1.6 (0.9-1.1); Prothrombin Time 16.3 Seconds (9.0-12.0)
--- NOTE | 2020-03-25 09:32 | Nephrology Consultation ---
Date of Consultation March 25, 2020 Assessment & Plan (1) Metabolic acidosis: Classically in this situation, we would obtain an arterial blood gas handley picture of what is going on. This is however traumatic for the patient and not indicated therefore unless condition deteriorating dramatically. She has likely a combined hyperchloremic metabolic acidosis along with an anion gap metabolic acidosis. Her expected AG corrected for albumin is about 5; her observed AG historically is 6-7, so AG of 10 is elevated for this patient. she likely has a combined anion gap acidosis (such as potentially from ketoacidosis or renal failure) and non AG metabolic acidosis from diarrhea and metabolic alkalosis from volume contraction. -cont K phos -trial spironolactone as below -repeat UACM -consider / evaluate nutrition status/ po intake Care coordinated w/ DR Medrano Present on Admission?: Yes (2) Hypokalemia: Almost for sure due to potassium losses with recurrent C. difficile. Given her liver disease and hypertension and chronic hypokalemia, recommend titrating down beta-eleni and introducing low-dose spironolactone Continue K-Phos 4 times daily as below -will give additional K 20 mEq x 2 doses Encourage nutritional supplement Check daily bmp Present on Admission?: Yes (3) Hypophosphatemia: -Check at least every 48 hours Low threshold for a calorie count Given chronic liver disease/malnutrition/chronic diarrhea, low threshold to offer nutritional supplement Continue 4 times daily 2 tabs K-Phos Present on Admission?: Yes History of Present Illness Reason for Consultation: metabolic acidosis Requesting Physician: Dr Medrano Attending Physician: Prem Medrano MD History of Present Illness 60-year-old female whom I am asked to evaluate for metabolic acidosis after she was admitted March 17 for current C. difficile infection. Past medical history includes hypertension, bipolar disorder, history of stroke, liver cirrhosis; e mphysema on CT scan, spinal compression fractures; status post surgical repair of left femur fracture January 2020. Apparently during that January 2020 admission, she also had pneumonia and encephalopathy. She presented this admission with fever: covid 19 and other pneumonias were ruled out. Her bicarbonate has run in the 19 to 20 mmol/L range pretty much since admission. Chloride in this timeframe has been in the 108-112 range; potassium has been intermittently low (for example 3.1 today) but generally within normal range. Phosphorus has been low as well. she is on oral vancomycin and raspberry syrup; also on 4 times daily Neutra-Phos, cholestyramine, and Saccharomyces. No IV fluids currently but she is getting IV metronidazole. 5 bowel movements recorded in the past 24 hours Allergies Allergy/AdvReac Type Severity Reaction Status Date / Time Penicillins Allergy Severe ANAPHYLAXIS Verified 03/17/20 12:32 hydrocodone AdvReac Intermediate Nausea Unverified 03/17/20 12:32 [From Lorcet (hydrocodone)] Home Medications Home Medications Medication Instructions Recorded Confirmed Type acetaminophen [Tylenol] 650 mg PO Q4H PRN 02/24/20 03/17/20 History acetaminophen-codeine 1 - 2 tab PO Q4H PRN 02/24/20 03/17/20 History albuterol sulfate 2 puff INHALATION QID PRN 02/24/20 03/17/20 History ascorbic acid (vitamin C) 500 mg PO DAILY 02/24/20 03/17/20 History calcium carbonate-vitamin D3 1 tab PO DAILY 02/24/20 03/17/20 History [Calcium 500 + D] fluticasone propionate 2 spray INTRANASAL DAILY 02/24/20 03/17/20 History loratadine 10 mg PO DAILY PRN 02/24/20 03/17/20 History metoprolol tartrate 50 mg PO BID 02/24/20 03/17/20 History multivitamin 1 tab PO DAILY 02/24/20 03/17/20 History olopatadine 1 drp OPB BID 02/24/20 03/17/20 History ergocalciferol (vitamin D2) 50,000 unit PO Q7D #3 cap 03/04/20 03/17/20 Rx ferrous sulfate 325 mg PO BIDM 30 Days #60 tab 03/04/20 03/17/20 Rx enoxaparin 40 mg SUBCUT DAILY 03/17/20 03/17/20 History Patient History Medical History Bipolar disorder Cirrhosis Depression Emphysema of lung Based on imaging History of CVA (cerebrovascular accident) Osteoporosis Pulmonary nodule 9 mm RML subsolid nodule CT chest 02/29/20. F/U CT recommended 3-6 months Schizophrenia Vitamin D deficiency Surgical History History of appendectomy History of shoulder surgery History of total hip replacement femur fracture one month later with repair, both in 2007 Status post open reduction and internal fixation (ORIF) of fracture Family History Father Myocardial infarction Mother Colorectal cancer Social History Preferred Language: [place] Leone[place] Communication Ability: Effective Blackjack Dealer Required: No Beliefs That Will Affect Care: None marital status: Current Living Situation: Spouse Feels Safe at Home: Yes Safety Concerns: Feels Safe At This Time Smoking Status: Former smoker Tobacco Type: cigarettes ; Second Hand Exposure: No ; Hx Alcohol Use: No Hx Substance Use: No Review of Systems Review of Systems: Other (ROS very limited d/t mental status; pt has trouble hearing me; ? confusion versus just not wanting to interact) Gastrointestinal: + nausea Physical Exam Constitutional: well developed, + cachectic, + behavioral limitations, + malnourished and + edematous Eyes: + anicteric sclerae and EOM intact bilaterally ENMT: Ears: + hearing impairment; no external ear abnormality Nose: no external nose abnormality Mouth: + dry oral mucous membranes and + poor dentition Neck: no nuchal rigidity Respiratory: normal respiratory effort Auscultation: + diminished lung sounds and + crackles (bibasilar) Cardiovascular: Rate/Rhythm: regular rhythm and + tachycardic Extremities: + edema (2+ BLE) Gastrointestinal (Abdomen): Inspection/Auscultation: + abdomen distended and normal bowel sounds Percussion/Palpation: abdomen soft and + ascites; abdomen nontender and no guarding Musculoskeletal: Extremities: strength 5/5 throughout Skin: no rashes, warm and dry Neurologic: miller, fluent speech, no tremor Psychiatric: Orientation: alert, oriented to person and + guarded Motor Behavior: + psychomotor retardation Affect: + constricted affect Results & Data Vital Signs (Past 12 Hours) Vital Signs Temp Pulse Pulse Resp BP Pulse Ox 03/25/20 07:49 36.5 C 71 18 112/64 94 03/25/20 04:38 36.6 C 75 20 106/56 L 100 03/25/20 00:05 70 03/24/20 23:30 36.6 C 66 16 99/57 L 95 Laboratory Results 03/24/20 05:21 03/25/20 06:14 Albumin 2.0; INR generally in the mid to high ones; Diagnostic Findings CT abdomen pelvis with iv contrast 1. Findings consistent with severe proctocolitis likely reflecting C. difficile colitis. Colorectal wall thickening increased since CT of February 29, 2020. 2. Cirrhosis with manifestations of portal hypertension including extensive varices formation, moderate splenomegaly and a small amount of ascites. Mild focal intrahepatic biliary ductal dilatation adjacent to the gallbladder, a finding of questionable significance. A follow-up liver protocol CT in 6 months to ensure stability is recommended. CT chest with contrast 1. No evidence for a new or interval process of the chest. 2. Stable emphysematous change. 3. Slight improvement in aeration both lung bases as compared to the prior study. 4. Upper abdominal findings suggesting hepatic cirrhosis/splenomegaly as well as a small amount of perihepatic ascites.
[2020-03-25] MEDS: CHOLESTYRAMINE LIGHT 4 GM PKT PO SCH ×2 (11:14→22:31)
--- NOTE | 2020-03-25 11:57 | Hospitalist Progress Note ---
Date of Service March 25, 2020 Assessment & Plan (1) C. difficile colitis: (2) Fever: 60 year old female with history of Recent ORIF Left femur complicated by C Diff, Pneumonia, Encephalopathy, HTN, Liver Cirrhosis presenting with fever. C. difficile Colitis, 2nd Episode Dehydration from Clostridium difficile diarrhea - CT scan: Findings consistent with severe proctocolitis likely reflecting C. difficile colitis. Colorectal wall thickening increased since CT of February 29, 2020 - GI and ID consulted Infectious disease recommend: Vancomycin dosing as 14 days at 250mg QID, then decreased to 125mg QID x 4 weeks with taper following 03/20/20 - still having multiple BMs discussed with GI KUB: possible beginning ileus add Flagyl IV, start IV NSS + K, oral K also ordered, clear liquid diet, OOB to chair QS 03/25 diarrhea 5x yesterday, 2 this morning added Questran BID and Florastor 03/24 continued on Vanco and Flagyl soft diet, non dairy, low fat Toradol PRN slow improvement--> discussed again with GI, requested re-evaluation Hypokalemia - from diarrhea - on K phos Nephro consulted--> recommend Spironolactone 12.5mg daily for now monitor closely Hypophosphatemia - PO K phos ordered Metabolic acidosis - HCO3 18-19 - she likely has a combined anion gap acidosis (such as potentially from ketoacidosis or renal failure) and non AG metabolic acidosis from diarrhea and metabolic alkalosis from volume contraction. - will start Spironolactone monitor closely Acute Kidney Injury - resolved Pneumonia is ruled out, COVID-19 is ruled out - per Dr. Joshua David's notes: -admission CXR on 03/17/2020: Mild left basilar opacity which favors atelectasis. However, an infectious process could appear similar. Otherwise, unchanged appearance of the chest. Emphysema. Stable interstitial thickening. -was informed on admission by Dr. Harry, patient's previous hospitalist who has seen patient in the past and she is concerned that there are indeed new lung infiltrates and she advised COVID-19 on admission which resulted as negative result on 03/18/2020. patient was started on empiric respiratory antibiotic of Aztreonam and doxycycline (has anaphylactic penicillin allergy), had nasal swab negative for MRSA , procalcitonin elevated as 13 -by 03/18/2020, patient admission blood culture speciating as gram positive cocci in 1 of 2 bottles but is negative for MRSA by PCR. blood cultures repeated on 03/18/2020. because of severity of C.difficile and likely the blood culture is contaminant and the CT scan ruling out pneumonia, will stop aztreonam and doxycyline -by 03/18/2020, patient had CT scan " Diffuse emphysematous change throughout both hemithoraces. Superimposed peribronchial and parenchymal prominence both lung bases diminished compared to the prior study. Scattered bulla are present bilaterally and are stable. There does not appear to be evidence for an acute or superimposed infiltrative process." Bacteremia ruled out - 1 bottle positive for coag staph not lugdunensis, likely contamination Cirrhosis: - per Dr. Joshua David's notes: -as per review of 03/04/2020 [facility] discharge summary that patient had CT scan revealing cirrhosis of liver with evidence of portal hypertension and and suggested that this was incidentally noted on CT at [facility] in January 2020 as a new finding -Patient had CT scan on previous hospitalization with Suspected hepatic fibrosis/cirrhosis with portal hypertension evidenced by splenomegaly and ascites -admission with right quadrant pain, Hyperammonemia of 48 on 03/17/2020 with INR 1.7 confirms cirrhosis -03/18/2020: "Cirrhosis with manifestations of portal hypertension including extensive varices formation, moderate splenomegaly and a small amount of ascites. Mild focal intrahepatic biliary ductal dilatation adjacent to the gallbladder, a finding of questionable significance. A follow-up liver protocol CT in 6 months to ensure stability is recommended" -gastroenterology consult following the patient--> recommend outpatient ff up with GI clinic for further work up, may need liver transplant referral after completing treatment for C.difficile Anemia - at baseline Thrombocytopenia -significantly improved Hypertension - patient will be started on Spironolactone will reduce usual Metoprolol tartrate from 50 to 25mg BID monitor History of Left femur fracture with ORIF repair -repaired in middle of January 2020 in [facility] - reports increased pain on the left knee, xray ordered Doppler US : no DVT Knee xray: 1. Mild medial displacement at the comminuted distal metaphyseal fracture plane of the left femur may be within the expected postsurgical range. 2. Internal fixation hardware without evidence of breakage. 3. No convincing evidence of a new injury. Ortho consulted--> recommend to nonweightbearing on the Left PRN toradol, IV Ofirmev q12h ice pack History of compression fractures of spine - pain management per #1 Osteoporosis Vitamin D deficiency - Vit D 17 --> 27 continue Vit D supplementation Pulmonary nodule -9 mm subsolid RML nodule noted on CT 02/29/2020. Patient is a smoker. Follow-up CT in 3-6 months per guidelines. History of Mood disorder -as per outpatient records DVT prophylaxis Lovenox 40mg SC Full Code Disposition pending return to [facility] when medically stable Admission and Anticipated Discharge Date Admission Date: March 17, 2020 Subjective ff up for c diff colitis seen resting in bed, mostly sleeping but easily awakened appears weak still had 2 loose BMs this morning, 5 recorded yesterday reports nausea this AM, some abdominal discomfort no other symptoms Review of Systems Review of Systems: All systems reviewed & are unremarkable except as noted in HPI & below Physical Exam Physical Exam: General- oriented x 3, not in distress, speaks in sentences w ith no effort or accessory muscle use Eyes- anicteric Neck- no JVD Lungs- clear breath sounds bilaterally Heart- normal rate, regular rhythm; no murmurs Abdomen- hyperactive bowel sounds, mildly distended, soft, nontender Extremities- mild pretibial edema, no calf tenderness no warmth/erythema/tenderness Neuro- alert, oriented x 3; no gross focal neurologic deficits Skin- warm & dry Results & Data Results & Data ([facility]) Vital Signs (Past 12 Hours) Vital Signs Temp Pulse Pulse Resp BP Pulse Ox 03/25/20 11:45 36.7 C 97 H 16 120/73 99 03/25/20 07:49 36.5 C 71 18 112/64 94 03/25/20 04:38 36.6 C 75 20 106/56 L 100 03/25/20 00:05 70 Laboratory Results Laboratory Results - last 24 hr 03/24/20 03/25/20 03/25/20 17:51 06:14 09:09 PT 16.3 H INR 1.6 H Sodium 137 137 Potassium 3.9 3.1 L D Chloride 109 H 108 H Carbon Dioxide 18 L 19 L Anion Gap 10.0 10.0 BUN 10 9 Creatinine 0.83 0.55 L Est Cr Clr Drug Dosing 73.0 108.0 Est GFR ( Amer) 88.8 118.2 Est GFR (Non-Af Amer) 76.6 101.9 BUN/Creatinine Ratio 12.0 16.7 Glucose 170 H 111 H Calcium 7.4 L 7.7 L Phosphorus 2.4 L
[2020-03-25] MEDS: SPIRONOLACTONE 12.5 MG TAB PO SCH (12:33)
--- NOTE | 2020-03-25 12:47 | Gastroenterology Progress Note ---
Date of Service March 25, 2020 Assessment & Plan (1) C. difficile colitis: Continue vancomycin, IV flagyl, colestid. Soft, low lactose diet. OK to add Imodium if doesn't have continued improvement. (2) Cirrhosis: Would defer further IP w/o of cirrhosis. Eventual OP GI f/u for cirrhosis with Q6m liver imaging, and EGD for screening for varices, teaching on low salt diet. Admission and Anticipated Discharge Date Admission Date: March 17, 2020 Supervising Physician Co-Signing Physician Notes Attg add: I reviewed chart and labs, interviewed and exmained pt. 60 yo female admit with complaint of diarrhea, noted to be C diff positive with abd CT showing severe proctocolitis, CRP 19 but nl WBC and no fever. Started on Vanco, Flagyl, Questran, and probiotic. Today, she still reports nausea and continues to have diarrhea - 4 liquid BMs reported today. On exam, she appears chronically ill, and is just eating small amts from her lunch tray. Her abdomen is mildly distended and tympanic but non tender. Her albumin is 2. A/p - Persistent diarrhea - likely due to C dff, abx associated diarrhea, portal colopathy, hypoalbuminemia. Please recheck CRP. No changes in medication regimen at this time - I expect that her diarrhea will take additional time to resolve. Better nutrition may help as well. Subjective Asked re-evaluate in light of continued frequent diarrhea. Seen with Dr. Solorio. Presented with cough, fever, recent hip fx repair with slow return to ambulation. Transferred here from rehab. COVID-19 (-). C-diff (+). CT with colitis, likely secondary to C-diff. Stools loose, still 4-6 times/day. Mild abdomen distention. Diffuse tenderness Pt tells us 2 BMs thus far today. Imaging with new Cirrhosis, abdominal varices, mild ascites. Review of Systems Review of Systems: ROS: Gen: + weakness Eyes: No eye redness, or pain, no recent vision changes Resp: No apparent SOB, or cough in the past few days. Cardio: Denies palpitations/irregular beats, no chest pain GI: + diffuse abdominal pain, + distention, no nausea/vomiting, : Denies pain on urination Skin: No jaundice, itching or new rashes Physical Exam Constitutional: well developed, + ill appearing, + thin and cooperative Eyes: PERRL, conjunctivae normal, anicteric sclerae Respiratory: normal respiratory effort, lungs clear to auscultation normal respiratory effort and able to speak in complete sentences; no respiratory distress, no labored breathing, does not use accessory muscles and no cough Cardiovascular: RRR, no murmur, no edema Gastrointestinal (Abdomen): normal bowel sounds, soft, nontender, no hepatosplenomegaly Inspection/Auscultation: + abdomen distended (mild to moderate, non taunt); no abdominal edema Percussion/Palpation: + abdomen tender (diffusely); no guarding and abdomen not rigid Skin: no rashes, warm and dry normal turgor and + pallor Neurologic: PERRL, EOMI, accommodation nl, no face palsy, no dysarthria awake; not confused Psychiatric: Orientation: alert and cooperative Results & Data ([facility]) Vital Signs (Past 12 Hours) Vital Signs Temp Pulse Resp BP Pulse Ox 03/25/20 11:45 36.7 C 97 H 16 120/73 99 03/25/20 07:49 36.5 C 71 18 112/64 94 03/25/20 04:38 36.6 C 75 20 106/56 L 100
[2020-03-25] MEDS: POTASSIUM CHLORIDE 20 MEQ TABCR PO SCH ×2 (17:23→19:16)
[2020-03-25 19:38] LABS: Appearance Urine Turbid (Clear); Bacteria Urine Automated Negative (Negative); Bilirubin Urine Negative (Negative); Blood Urine 1+ (Negative); Color Urine Dark Yellow; Epithelial Cell Urine Auto >30 /lpf (0-5); Glucose Urine UA Negative (Negative); Ketones Urine Trace (Negative); Leukocyte Esterase Urine 1+ (Negative); Nitrite Urine Positive (Negative); Protein Urine 1+ (Negative); Specific Gravity Urine 1.034 (1.000-1.030); Urobilinogen Urine Negative (Negative); WBC Urine Automated >30 /hpf (0-5)
[2020-03-25 20:54] LABS: Cast Urine Automated >30 /lpf (0-5); RBC Urine Automated >30 /hpf (0-4)
[2020-03-25] MEDS: METOPROLOL TARTRATE 25 MG TAB PO SCH (21:27)
[2020-03-26] MEDS: VANCOMYCIN HCL 250 MG/5 ML SOLN PO SCH ×4 (03:30→21:27)
[2020-03-26] MEDS: RASPBERRY SYRUP 5 ML UDP PO SCH ×4 (03:30→21:27)
[2020-03-26] MEDS: metroNIDAZOLE 500 MG/100 ML BAG IV SCH ×3 (03:35→20:20)
[2020-03-26] MEDS ORDERED: ACETAMINOPHEN 325 MG TAB PO PRN ×3 (03:58→07:43)
[2020-03-26 04:22] LABS: Basophils # (auto) 0.04 K/uL (0-0.2); Basophils % (auto) 0.5 %; Eosinophils # (auto) 0.37 K/uL (0-0.5); Eosinophils % (auto) 4.3 %; Hematocrit (blood only) 40.9 % (37-47); Hemoglobin 13.4 g/dL (12.0-16.0); Immature Granulocytes # (auto) 0.05 K/uL (0.00-0.02); Immature Granulocytes % (auto) 0.6 %; Lymphocytes % (auto) 10.5 %; Mean Corpuscular Hemoglobin 30.1 pg (25-34); Mean Corpuscular Hgb Conc 32.8 g/dL (32-36); Mean Corpuscular Volume 91.9 fL (80-100); Mean Platelet Volume 9.1 fL (7.4-10.4); Monocytes # (auto) 0.69 K/uL (0.11-0.59); Monocytes % (auto) 8.1 %; Neutrophils # (auto) 6.49 K/uL (1.4-6.5); Platelet Count 245 K/uL (130-400); RDW Coefficient of Variation 17.4 % (11.5-14.5); RDW Standard Deviation 58.7 fL (36.4-46.3); Red Blood Count 4.45 M/uL (4.2-5.4); White Blood Count 8.54 K/uL (4.8-10.8)
[2020-03-26 04:38] LABS: BUN Creatinine Ratio 12.9 (10-20); Calcium 7.5 mg/dl (8.5-10.1); Creatinine Clr Calc Pharmacy 123.8 ml/min; Est GFR (African American) 123.6; Est GFR (Non-African American) 106.6; Magnesium 1.8 mg/dl (1.8-2.4); Potassium 3.2 mmol/L (3.5-5.1)
[2020-03-26 04:39] LABS: C Reactive Protein 3.76 mg/dl (0-0.29); Phosphorus 2.4 mg/dl (2.5-4.9)
[2020-03-26] MEDS ORDERED: MAGNESIUM SULFATE / D5W 1 GM/100 ML BAG IV ONE (04:55)
[2020-03-26] MEDS ORDERED: POTASSIUM CHLORIDE 20 MEQ TABCR PO STA (04:55)
[2020-03-26] MEDS ORDERED: ALBUMIN 25% 50 ML IV ONE ×2 (04:55→08:15)
--- NOTE | 2020-03-26 04:57 | Communication Note ---
Date of Service: March 26, 2020 Made aware of fever spike. UA noted : WBC esterase, nitrate positive AP Complicated UTI Follow urine cultures, IV Ceftriaxone Will relay to AM provider.
[2020-03-26] MEDS ORDERED: cefTRIAXone SODIUM 1,000 MG in DEXTROSE 5% 50 ML IV SCH (05:30)
[2020-03-26] MEDS ORDERED: cefTRIAXone SODIUM 1,000 MG in DEXTROSE 5% 25 ML IV SCH (06:00)
[2020-03-26] MEDS: CALCIUM 600MG + VIT D 400 IU TAB PO SCH (06:27)
[2020-03-26] MEDS ORDERED: POTASSIUM PHOS 3 MMOL/1 ML INFUSION IV STA (07:30)
[2020-03-26] MEDS ORDERED: POTASSIUM PHOSPHATE 21 MMOL in SODIUM CHLORIDE 0.9% 500 ML IV ONE (07:45)
[2020-03-26] MEDS: MAGNESIUM OXIDE 400 MG TAB PO SCH (08:21)
[2020-03-26] MEDS: POT PHOSPHATE MONOBASIC W/ SOD TAB PO SCH ×4 (08:22→20:21)
[2020-03-26] MEDS: MULTIVITAMIN TAB PO SCH (08:23)
[2020-03-26] MEDS: SPIRONOLACTONE 12.5 MG TAB PO SCH (08:23)
[2020-03-26] MEDS: FERROUS SULFATE 325 MG TAB PO SCH ×2 (08:24→16:26)
[2020-03-26] MEDS: METOPROLOL TARTRATE 25 MG TAB PO SCH ×2 (08:25→20:21)
[2020-03-26] MEDS: SACCHAROMYCES BOULARDII 250 MG CAP PO SCH ×2 (08:25→20:21)
[2020-03-26] MEDS: ASCORBIC ACID 500 MG TAB PO SCH (08:25)
[2020-03-26] MEDS: NYSTATIN SUSP 500,000 U/5 ML UDC PO SCH ×4 (08:26→20:20)
[2020-03-26] MEDS: ENOXAPARIN INJ 40 MG/0.4 ML SYR SQ SCH (08:27)
[2020-03-26] MEDS: CHOLESTYRAMINE LIGHT 4 GM PKT PO SCH ×2 (10:16→21:27)
[2020-03-26] MEDS ORDERED: SODIUM CHLORIDE 0.9% 1000ML 500 ML IV ONE (10:26)
--- NOTE | 2020-03-26 10:35 | Hospitalist Progress Note ---
Date of Service March 26, 2020 Assessment & Plan (1) C. difficile colitis: (2) Fever: 60 year old female with history of Recent ORIF Left femur complicated by C Diff, Pneumonia, Encephalopathy, HTN, Liver Cirrhosis presenting with fever -likely from C.difficile Colitis. WOULD AVOID ANY ANTIBIOTICS UNRELATED TO TREATMENT OF C.DIFFICILE -last febrile temperature on 03/25/2020 C. difficile Colitis, 2nd Episode Dehydration from Clostridium difficile diarrhea - CT scan: Findings consistent with severe proctocolitis likely reflecting C. difficile colitis. Colorectal wall thickening increased since CT of February 29, 2020 - GI and ID consulted -Infectious disease recommend: Vancomycin dosing as 14 days at 250mg QID, then plan to decrease to 125mg QID for 4 weeks with taper; -then since 03/20/2020 patient also on metronidazole IV with the Vancomycin regimen; then since, 03/24/2020, patient also on Florastor; then since 03/25/2020 patient on Questran BID; -continue current treatment Hypokalemia - from diarrhea -supplement potassium as needed -monitor serum potassium closely while on Spironolactone 12.5mg daily Hypophosphatemia -supplement phosphate as needed, additional potassium phosphate given today Metabolic acidosis -seen on this admission; she likely has a combined anion gap acidosis (such as potentially from ketoacidosis or renal failure) and non AG metabolic acidosis from diarrhea and metabolic alkalosis from volume contraction. -currently on Spironolactone daily Acute Kidney Injury - resolved Pneumonia is ruled out, COVID-19 is ruled out -admission CXR on 03/17/2020: Mild left basilar opacity which favors atelectasis. However, an infectious process could appear similar. Otherwise, unchanged appearance of the chest. Emphysema. Stable interstitial thickening. -was informed on admission by Dr. Harry, patient's previous hospitalist who has seen patient in the past and she is concerned that there are indeed new lung infiltrates and she advised COVID-19 on admission which resulted as negative result on 03/18/2020. patient was started on empiric respiratory antibiotic of Aztreonam and doxycycline (has anaphylactic penicillin allergy), had nasal swab negative for MRSA , procalcitonin elevated as 13 -by 03/18/2020, patient admission blood culture speciating as gram positive cocci in 1 of 2 bottles but is negative for MRSA by PCR. blood cultures repeated on 03/18/2020. because of severity of C.difficile and likely the blood culture is contaminant and the CT scan ruling out pneumonia, stopped aztreonam and doxycyline -by 03/18/2020, patient had CT scan " Diffuse emphysematous change throughout both hemithoraces. Superimposed peribronchial and parenchymal prominence both lung bases diminished compared to the prior study. Scattered bulla are present bilaterally and are stable. There does not appear to be evidence for an acute or superimposed infiltrative process." Bacteremia is ruled out - 1 bottle positive for coag staph not lugdunensis, likely contamination Urinary Tract Infection was suspected but is unlikely -03/25/2020 UA wit no bacteria. awaiting urine culture results. will not continue ceftriaxone at this time as this could hamper C.difficile treatment by eliminating normal gut juan Cirrhosis: -as per review of 03/04/2020 [facility] discharge summary that patient had CT scan revealing cirrhosis of liver with evidence of portal hypertension and and suggested that this was incidentally noted on CT at [facility] in January 2020 as a new finding -Patient had CT scan on previous hospitalization with Suspected hepatic fibrosis/cirrhosis with portal hypertension evidenced by splenomegaly and ascites -admission with right quadrant pain, Hyperammonemia of 48 on 03/17/2020 with INR 1.7 confirms cirrhosis -03/18/2020: "Cirrhosis with manifestations of portal hypertension including extensive varices formation, moderate splenomegaly and a small amount of ascites. Mild focal intrahepatic biliary ductal dilatation adjacent to the gallbladder, a finding of questionable significance. A follow-up liver protocol CT in 6 months to ensure stability is recommended" -gastroenterology consult assessed the patient again on this admission and recommend outpatient follow up with GI clinic for further work up, may need liver transplant referral after completing treatment for C.difficile Anemia - at baseline Thrombocytopenia -has significantly improved on this admission Hypertension -on Metoprolol tartrate as 25mg BID while on spironolactone History of Left femur fracture with ORIF repair -repaired in middle of January 2020 in [facility] - reports increased pain on the left knee, xray ordered Doppler US : no DVT Knee xray: 1. Mild medial displacement at the comminuted distal metaphyseal fracture plane of the left femur may be within the expected postsurgical range. 2. Internal fixation hardware without evidence of breakage. 3. No convincing evidence of a new injury. -Ortho consulted--> recommend to nonweightbearing on the Left -PRN analgesics and ice pack as needed History of compression fractures of spine -pain control and ambulation as tolerated Osteoporosis Vitamin D deficiency - continue Vit D supplementation Pulmonary nodule -9 mm subsolid RML nodule noted on CT 02/29/2020. Patient is a smoker. Follow-up CT in 3-6 months per guidelines. History of Mood disorder -as per outpatient records DVT prophylaxis -Lovenox 40mg SC Full Code Admission and Anticipated Discharge Date Admission Date: March 17, 2020 Subjective Patient seen and examined this AM. She was sitting up in chair and complaining of feeling lightheaded. Nursing staff were asked to assist her back from chair to bed and check blood pressure and give IV fluids. Patient made bowel movement today. No vomiting. Breathing on room air. No shortness of breath. Review of Systems Review of Systems: All systems reviewed & are unremarkable except as noted in HPI & below Physical Exam Constitutional: + frail appearing Eyes: PERRL, conjunctivae normal, anicteric sclerae EOM intact bilaterally ENMT: external ear and nose normal, oropharynx normal Neck: normal visual inspection Respiratory: normal respiratory effort, lungs clear to auscultation Cardiovascular: Rate/Rhythm: regular rate and regular rhythm Gastrointestinal (Abdomen): Percussion/Palpation: abdomen soft Musculoskeletal: Head/Neck/Chest: normocephalic Neurologic: PERRL, EOMI, accommodation nl, no face palsy, no dysarthria Psychiatric: Orientation: alert, oriented to person, oriented to place, oriented to time and cooperative Results & Data Results & Data ([facility]) Vital Signs (Past 12 Hours) Vital Signs Temp Pulse Pulse Resp BP Pulse Ox 03/26/20 07:23 36.6 C 92 H 18 126/73 03/26/20 04:16 93 H 03/26/20 04:00 36.6 C 78 18 109/64 95 03/25/20 23:00 38.9 C H 73 18 110/67 93
[2020-03-26] MEDS ORDERED: NYSTATIN/TRIAMCIN CR 15 GM TUBE EXT PRN (20:18)
--- NOTE | 2020-03-26 21:07 | Nephrology Progress Note ---
Date of Service March 26, 2020 Assessment & Plan (1) Metabolic acidosis: Classically in this situation, we would obtain an arterial blood gas handley picture of what is going on. This is however traumatic for the patient and not indicated therefore unless condition deteriorating dramatically. She has likely a combined hyperchloremic metabolic acidosis along with an anion gap metabolic acidosis. Her expected AG corrected for albumin is about 5; her observed AG historically is 6-7, so AG of 10 on day of c/s is elevated for this patient. she likely has a combined anion gap acidosis (such as potentially from ketoacidosis or renal failure) and non AG metabolic acidosis from diarrhea and metabolic alkalosis from volume contraction. -cont K phos -trial spironolactone to continue -repeat UACM extremely volume contracted and inflamed w/ gran casts > monitor for MAX -would formally evaluate nutrition status/ po intake (2) Hypokalemia: Almost for sure due to potassium losses with recurrent C. difficile. Given her liver disease and hypertension and chronic hypokalemia, recommend titrating down beta-eleni and introducing low-dose spironolactone Continue K-Phos 4 times daily as below -will give additional K 20 mEq x 1 doses ; had 40 meq this am Encourage nutritional supplement Check daily bmp (3) Hypophosphatemia: -Check at least every 48 hours Low threshold for a calorie count Given chronic liver disease/malnutrition/chronic diarrhea, low threshold to offer nutritional supplement Continue 4 times daily 2 tabs K-Phos Admission and Anticipated Discharge Date Admission Date: March 17, 2020 Subjective no overnight events; seen on rounds at about 0950; ate about 50% of her breakfast; c/o worsening abd distension; dizzy as she got out of bed today and had iv fluid bolus 500 mL NS Review of Systems Review of Systems: Unobtainable due to mental health condition (limited by [facility]; no sob; worsenign N) Physical Exam Constitutional: well developed, + cachectic, + behavioral limitations and + malnourished Eyes: + anicteric sclerae and EOM intact bilaterally ENMT: Ears: + hearing impairment; no external ear abnormality Nose: no external nose abnormality Mouth: + dry oral mucous membranes and + poor dentition Neck: no nuchal rigidity Respiratory: normal respiratory effort Auscultation: + diminished lung sounds and + crackles (bibasilar) Cardiovascular: Rate/Rhythm: regular rhythm and + tachycardic Extremities: + edema (1+ BLE) Gastrointestinal (Abdomen): Inspection/Auscultation: + abdomen distended and normal bowel sounds Percussion/Palpation: abdomen soft and + ascites; abdomen nontender and no guarding Musculoskeletal: Extremities: strength 5/5 throughout Skin: no rashes, warm and dry Psychiatric: Orientation: alert, oriented to person and + guarded Motor Behavior: + psychomotor retardation Affect: + constricted affect Results & Data ([facility]) Vital Signs (Past 12 Hours) Vital Signs Temp Pulse Pulse Resp BP Pulse Ox 03/26/20 18:51 37.0 C 94 H 18 104/65 95 03/26/20 15:14 36.6 C 83 18 120/67 98 03/26/20 14:58 75 03/26/20 11:36 73 03/26/20 11:17 36.3 C L 70 18 105/64 97 03/26/20 10:34 113/68 Laboratory Results 03/26/20 04:12 03/26/20 04:12
[2020-03-26] MEDS ORDERED: POTASSIUM CHLORIDE 20 MEQ TABCR PO ONE (21:08)
[2020-03-26 23:38] VITALS: TEMP 97.9
--- NOTE | 2020-03-27 01:45 | Consultation Report ---
DATE OF CONSULTATION: 03/26/2020 CONSULT REQUESTED BY: Dr. David, hospitalist. REASON FOR CONSULT: Vulvar swelling. HISTORY OF PRESENT ILLNESS: The patient is a 60-year-old female who presents for multiple medical problems. She is C. diff positive. She was on multiple antibiotics and has a Bautista catheter that is fit in place and she is also incontinent due to diarrhea from her C. diff. Culture was obtained. The patient was examined with the nurse present. The vulva was inflamed and patchy white spots consistent with a vulvovaginitis from yeast and probable irritation from the Bautista and stool. ALLERGIES: PENICILLIN, HYDROCODONE. PLAN: We will start Mycolog cream q. shift for irritation.
[2020-03-27] MEDS: VANCOMYCIN HCL 250 MG/5 ML SOLN PO SCH ×2 (04:28→09:57)
[2020-03-27] MEDS: metroNIDAZOLE 500 MG/100 ML BAG IV SCH ×2 (04:28→11:27)
[2020-03-27] MEDS: RASPBERRY SYRUP 5 ML UDP PO SCH ×2 (04:28→09:57)
[2020-03-27] MEDS: CALCIUM 600MG + VIT D 400 IU TAB PO SCH (06:04)
[2020-03-27 08:12] LABS: INR 1.6 (0.9-1.1); Prothrombin Time 16.2 Seconds (9.0-12.0)
[2020-03-27] MEDS: NYSTATIN SUSP 500,000 U/5 ML UDC PO SCH ×2 (08:16→11:27)
[2020-03-27] MEDS: POT PHOSPHATE MONOBASIC W/ SOD TAB PO SCH ×2 (08:17→11:28)
[2020-03-27] MEDS: MULTIVITAMIN TAB PO SCH (08:17)
[2020-03-27] MEDS: ASCORBIC ACID 500 MG TAB PO SCH (08:17)
[2020-03-27] MEDS: MAGNESIUM OXIDE 400 MG TAB PO SCH (08:18)
[2020-03-27] MEDS: FERROUS SULFATE 325 MG TAB PO SCH (08:19)
[2020-03-27] MEDS: ENOXAPARIN INJ 40 MG/0.4 ML SYR SQ SCH (08:19)
[2020-03-27] MEDS: SACCHAROMYCES BOULARDII 250 MG CAP PO SCH (08:19)
[2020-03-27] MEDS: METOPROLOL TARTRATE 25 MG TAB PO SCH (08:19)
[2020-03-27] MEDS: SPIRONOLACTONE 12.5 MG TAB PO SCH (08:19)
[2020-03-27 08:30] LABS: BUN Creatinine Ratio 12.3 (10-20); Calcium 8.3 mg/dl (8.5-10.1); Creatinine Clr Calc Pharmacy 134.8 ml/min; Est GFR (African American) 126.2; Est GFR (Non-African American) 108.9; Phosphorus 2.6 mg/dl (2.5-4.9); Potassium 3.4 mmol/L (3.5-5.1)
[2020-03-27] MEDS: ONDANSETRON INJ 2 MG/ML 2 ML VIAL IV PRN (08:32)
[2020-03-27] MEDS ORDERED: POTASSIUM CHLORIDE 20 MEQ TABCR PO STA (08:42)
[2020-03-27] MEDS: CHOLESTYRAMINE LIGHT 4 GM PKT PO SCH (09:57)
--- NOTE | 2020-03-27 10:40 | Nephrology Progress Note ---
Date of Service March 27, 2020 Assessment & Plan (1) Metabolic acidosis: Classically in this situation, we would obtain an arterial blood gas handley picture of what is going on. This is however traumatic for the patient and not indicated therefore unless condition deteriorating dramatically. She has likely a combined hyperchloremic metabolic acidosis along with an anion gap metabolic acidosis. Her expected AG corrected for albumin is about 5; her observed AG historically is 6-7, so AG of 10 on day of c/s is elevated for this patient. she likely has a combined anion gap acidosis (such as potentially from ketoacidosis) and non AG metabolic acidosis from diarrhea and metabolic alkal osis from volume contraction. These will persist as long as diarrhea does, more than likely D/C recommendations (discussed w/ Dr David) -cont K phos current dose -trial spironolactone to continue -repeat UACM extremely volume contracted and inflamed w/ gran casts > monitor for MAX -would formally monitor nutrition status/ po intake -recommend potassium supplement in addition to neutraphos at 40 mEq bid -monitor bmp at/by facility at least 2X weekly -encourage protein supplementation/intake (2) Hypokalemia: Almost for sure due to potassium losses with recurrent C. difficile. Given her liver disease and hypertension and chronic hypokalemia, recommend titrating down beta-eleni and introducing low-dose spironolactone Continue K-Phos 4 times daily as below -recommend potassium as above (3) Hypophosphatemia: -Check at least every 48 hours Low threshold for a calorie count Given chronic liver disease/malnutrition/chronic diarrhea, low threshold to offer nutritional supplement Continue 4 times daily 2 tabs K-Phos Admission and Anticipated Discharge Date Admission Date: March 17, 2020 Subjective for d/c today for further rehab; patient is agitated and tearful at the time of my exam between this and hard of hearing, he of systems is limited. She endorses nausea, lightheadedness sitting in the bed, to general symptoms. Tearful that "nothing is working" Review of Systems Review of Systems: All systems reviewed & are unremarkable except as noted in HPI & below and Unobtainable due to mental health condition (Limited by mental health condition and) Physical Exam Constitutional: well developed, + cachectic, + behavioral limitations, + in distress (tearful) and + malnourished Eyes: + anicteric sclerae and EOM intact bilaterally ENMT: Ears: + hearing impairment; no external ear abnormality Nose: no external nose abnormality Mouth: + dry oral mucous membranes and + poor dentition Neck: no nuchal rigidity Respiratory: normal respiratory effort Auscultation: lungs clear to auscultation bilaterally and + diminished lung sounds Cardiovascular: Rate/Rhythm: regular rhythm and + tachycardic Extremities: + edema (1-2+ BLE) Gastrointestinal (Abdomen): Inspection/Auscultation: + abdomen distended and normal bowel sounds Percussion/Palpation: abdomen soft; abdomen nontender and no guarding Musculoskeletal: Extremities: strength 5/5 throughout Skin: no rashes, warm and dry Neurologic: miller, fluent speech [place] Psychiatric: Orientation: alert, oriented to person and + guarded Motor Behavior: + psychomotor retardation Affect: + tearful affect and + constricted affect Results & Data ([facility]) Vital Signs (Past 12 Hours) Vital Signs Temp Pulse Pulse Resp BP Pulse Ox 03/27/20 06:59 36.6 C 104 H 19 117/76 97 03/27/20 04:34 36.6 C 95 H 18 109/66 95 03/27/20 04:05 62 03/26/20 23:00 36.6 C 71 17 104/62 94 Laboratory Results 03/26/20 04:12 03/27/20 07:45
[2020-03-27 11:18] VITALS: PULSE 71; O2SAT 96
--- NOTE | 2020-03-27 11:45 | Hospitalist Progress Note ---
Date of Service March 27, 2020 Assessment & Plan (1) C. difficile colitis: (2) Fever: 60 year old female with history of Recent ORIF Left femur complicated by C Diff, Pneumonia, Encephalopathy, HTN, Liver Cirrhosis presenting with fever -likely from C.difficile Colitis. WOULD AVOID ANY ANTIBIOTICS UNRELATED TO TREATMENT OF C.DIFFICILE -last febrile temperature on 03/25/2020 C. difficile Colitis, 2nd Episode Dehydration from Clostridium difficile diarrhea - CT scan: Findings consistent with severe proctocolitis likely reflecting C. difficile colitis. Colorectal wall thickening increased since CT of February 29, 2020 - GI and ID consulted -Infectious disease recommend: Vancomycin dosing as 14 days at 250mg QID, then plan to decrease to 125mg QID for 4 weeks with taper; -then since 03/20/2020 patient also on metronidazole IV with the Vancomycin regimen; then since, 03/24/2020, patient also on Florastor; then since 03/25/2020 patient on Questran BID; -as of 03/27/2020. prescription made for vancomycin as 250 mg QID for 4 days to complete initial loading therapy by 03/31/2020 and then taper over 4 weeks starting on 03/31/2020 as (125 mg QID for 1 week, 125 mg BID the next week, 125 mg daily for 1 week, and then 125 mg every 48 hours for 1 week). prescription of Metronidazole oral 500 mg TID for 7 days prescription of Florastor (saccharomyces boulardii) BID for 30 days prescription of Questran (Cholestyramine ) BID for 7 days Electrolyte Abnormalities (Hypokalemia, Hypophosphatemia) from diarrhea -has been given IV and oral potassium, phosphorous, magnesium supplements during this admission -prescriptions of magnesium oxide 400 mg for 10 days, potassium 15 meq daily for 10 days, potassium phosphate QID for 10 days. Patient should have electrolytes and renal function labs checked within 1 to 2 weeks of hospital discharge Metabolic acidosis (improving) -seen on this admission; she likely has a combined anion gap acidosis (such as potentially from ketoacidosis or renal failure) and non AG metabolic acidosis from diarrhea and metabolic alkalosis from volume contraction. -currently on Spironolactone daily Acute Kidney Injury (resolved) - resolved Pneumonia is ruled out, COVID-19 is ruled out -admission CXR on 03/17/2020: Mild left basilar opacity which favors atelectasis. However, an infectious process could appear similar. Otherwise, unchanged appearance of the chest. Emphysema. Stable interstitial thickening. -was informed on admission by Dr. Harry, patient's previous hospitalist who has seen patient in the past and she is concerned that there are indeed new lung infiltrates and she advised COVID-19 on admission which resulted as negative result on 03/18/2020. patient was started on empiric respiratory antibiotic of Aztreonam and doxycycline (has anaphylactic penicillin allergy), had nasal swab negative for MRSA , procalcitonin elevated as 13 -by 03/18/2020, patient admission blood culture speciating as gram positive cocci in 1 of 2 bottles but is negative for MRSA by PCR. blood cultures repeated on 03/18/2020. because of severity of C.difficile and likely the blood culture is contaminant and the CT scan ruling out pneumonia, stopped aztreonam and doxycyline -by 03/18/2020, patient had CT scan " Diffuse emphysematous change throughout both hemithoraces. Superimposed peribronchial and parenchymal prominence both lung bases diminished compared to the prior study. Scattered bulla are present bilaterally and are stable. There does not appear to be evidence for an acute or superimposed infiltrative process." Bacteremia is ruled out - 1 bottle positive for coag staph not lugdunensis, likely contamination Urinary Tract Infection was suspected but is unlikely -03/25/2020 UA wit no bacteria. awaiting urine culture results. will not continue ceftriaxone at this time as this could hamper C.difficile treatment by eliminating normal gut juan Cirrhosis: -as per review of 03/04/2020 [facility] discharge summary that patient had CT scan revealing cirrhosis of liver with evidence of portal hypertension and and suggested that this was incidentally noted on CT at [facility] in January 2020 as a new finding -Patient had CT scan on previous hospitalization with Suspected hepatic fibrosis/cirrhosis with portal hypertension evidenced by splenomegaly and ascites -admission with right quadrant pain, Hyperammonemia of 48 on 03/17/2020 with INR 1.7 confirms cirrhosis -03/18/2020: "Cirrhosis with manifestations of portal hypertension including extensive varices formation, moderate splenomegaly and a small amount of ascites. Mild focal intrahepatic biliary ductal dilatation adjacent to the gallbladder, a finding of questionable significance. A follow-up liver protocol CT in 6 months to ensure stability is recommended" -gastroenterology consult assessed the patient again on this admission and recommend outpatient follow up with GI clinic for further work up, may need liver transplant referral after completing treatment for C.difficile Anemia - at baseline Thrombocytopenia -has significantly improved on this admission Hypertension -metoprolol 25 mg BID with spirolactone 12.5 mg daily for blood pressure and metabolic acidosis and cirrhosis treatment Vulvovaginitis -as per OBGYN evaluation: The vulva was inflamed and patchy white spots consistent with a vulvovaginitis from yeast and probable irritation from the Lawrence and stool. -Patient completed 3 days of oral Nystatin, prescription of nystatin/triamcinolone topical ointment apply to labia fold for skin irritation and vulvovaginitis -Patient will go with lawrence to [facility]. Follow orthopedic recommendations on weightbearing. If patient can gain better mobility to urinate then lawrence can be taken out at the rehabilitation center or after rehabilitation center stay History of Left femur fracture with ORIF repair -repaired in middle of January 2020 in [facility] - reports increased pain on the left knee, xray ordered Doppler US : no DVT Knee xray: 1. Mild medial displacement at the comminuted distal metaphyseal fracture plane of the left femur may be within the expected postsurgical range. 2. Internal fixation hardware without evidence of breakage. 3. No convincing evidence of a new injury. -Orthopedic/Activities: "nonweightbearing left lower extremity for period of approximately 4 weeks with re-x-ray left femur and knee prior to initiating any type of weightbearing left lower extremity. Physical therapy and Occupational Therapy PRN left knee. Follow-up with orthopedic service [facility] as previously arranged. May follow-up with Dr. Moffett at [facility] as needed" as per Dr. Moffett's orthopedic evaluation -avoid acetaminophen because of cirrhosis. prescription of tramadol 50 mg every 6 hours as needed for pain (16 tablets prescribed) History of compression fractures of spine -pain control and ambulation as tolerated Osteoporosis Vitamin D deficiency - continue Vit D supplementation Pulmonary nodule -9 mm subsolid RML nodule noted on CT 02/29/2020. Patient is a smoker. Follow-up CT in 3-6 months per guidelines. History of Mood disorder -as per outpatient records DVT prophylaxis -Lovenox 40mg SC Full Code Discharge to [facility] Admission and Anticipated Discharge Date Admission Date: March 17, 2020 Subjective Patient ate her food while sitting up in her bed with her back resting on the bed. She does not report dizziness. breathing on room air. no chest pain. No acute pain symptoms today besides some irritation of pelvic area where lawrence is. She denies other systems. She asked many questions about her hospital course and her health today. She is ready for discharge from hospital to [facility] Review of Systems 2 Review of Systems: All systems reviewed & are unremarkable except as noted in Subjective Physical Exam Constitutional: + frail appearing Eyes: PERRL, conjunctivae normal, anicteric sclerae EOM intact bilaterally ENMT: external ear and nose normal, oropharynx normal Neck: normal visual inspection Respiratory: normal respiratory effort, lungs clear to auscultation Cardiovascular: Rate/Rhythm: regular rate and regular rhythm Gastrointestinal (Abdomen): Percussion/Palpation: abdomen soft Musculoskeletal: Head/Neck/Chest: normocephalic Neurologic: PERRL, EOMI, accommodation nl, no face palsy, no dysarthria Psychiatric: Orientation: alert, oriented to person, oriented to place, oriented to time and cooperative Genitourinary: + bladder abnormality (lawrence) Results & Data Results & Data ([facility]) Vital Signs (Past 12 Hours) Vital Signs Temp Pulse Pulse Resp BP Pulse Ox 03/27/20 11:17 36.6 C 71 18 112/65 96 03/27/20 06:59 36.6 C 104 H 19 117/76 97 03/27/20 04:34 36.6 C 95 H 18 109/66 95 03/27/20 04:05 62
--- NOTE | 2020-03-27 11:54 | Discharge Summary ---
Date of Service March 27, 2020 Admission HPI Per Admitting Provider This is a 60 year old with recent hospitalizations and discharged from [facility] and then had diarrhea. as per ED notes, there was also concern for fever at home and chronic cough and discomfort from a fracture repair of femur of lower extremity in January. Influenza negative and after discussing with Emergency room physician that there was no need at this time for airborne precautions. However, patient with history of C.difficile in the recent past (positive test for C.difficile by PCR and toxin in 02/24/2020) and despite recent treatment from previous hospitalization the patient is again on 03/17/2020 found to be C.difficile positive by PCR and toxin. Patient was initiated on oral vancomycin by emergency doctor. Patient's labs also suggesting dehydration. Patient also has history of cirrhosis and elevated ammonia levels of 48. Patient was able to answer questions appropriately but at times appeared lethargic and quite often hospitalist had to communicate with her very loudly to get her responses. she had tenderness of right side of abdomen. Patient denies problems with vomiting, denies shortness of breath and denies chest pain. Principal Diagnosis C. difficile Colitis, 2nd Episode Dehydration from Clostridium difficile diarrhea Electrolyte Abnormalities (Hypokalemia, Hypophosphatemia) Metabolic acidosis (improving) Acute Kidney Injury (resolved) Cirrhosis Anemia Thrombocytopenia Hypertension Vulvovaginitis History of Left femur fracture with ORIF repair History of compression fractures of spine Osteoporosis Vitamin D deficiency Discharge Exam Constitutional + frail appearing Eyes PERRL, conjunctivae normal, anicteric sclerae EOM intact bilaterally ENMT external ear and nose normal, oropharynx normal Neck normal visual inspection Respiratory normal respiratory effort, lungs clear to auscultation Cardiovascular Rate/Rhythm: regular rate and regular rhythm Gastrointestinal (Abdomen) Percussion/Palpation: abdomen soft Musculoskeletal Head/Neck/Chest: normocephalic Neurologic PERRL, EOMI, accommodation nl, no face palsy, no dysarthria Psychiatric Orientation: alert, oriented to person, oriented to place, oriented to time and cooperative Genitourinary + bladder abnormality (lawrence) Discharge Data Allergies Allergy/AdvReac Type Severity Reaction Status Date / Time Penicillins Allergy Severe ANAPHYLAXIS Verified 03/17/20 12:32 hydrocodone AdvReac Intermediate Nausea Unverified 03/17/20 12:32 [From Lorcet (hydrocodone)] Consultations 03/17/20 14:05 ED Decision to Admit Stat 03/17/20 15:21 Consult Infectious Diseases Routine 03/17/20 15:28 Consult Gastroenterology Routine 03/17/20 15:32 Consult Case Management - Discharge Planning Routine 03/21/20 12:49 Consult Orthopedic Surgery Routine 03/25/20 07:47 Consult Nephrology Routine 03/25/20 18:51 Consult Gynecology Routine Ordered Studies 03/18/20 08:06 CT abd pelvis IV con only Routine CT chest w con Routine 03/21/20 14:30 US venous doppler LE LT Routine Hospital Course (1) C. difficile colitis: (2) Fever: 60 year old female with history of Recent ORIF Left femur complicated by C Diff, Pneumonia, Encephalopathy, HTN, Liver Cirrhosis presenting with fever -likely from C.difficile Colitis. WOULD AVOID ANY ANTIBIOTICS UNRELATED TO TREATMENT OF C.DIFFICILE -last febrile temperature on 03/25/2020 C. difficile Colitis, 2nd Episode Dehydration from Clostridium difficile diarrhea - CT scan: Findings consistent with severe proctocolitis likely reflecting C. difficile colitis. Colorectal wall thickening increased since CT of February 29, 2020 - GI and ID consulted -Infectious disease recommend: Vancomycin dosing as 14 days at 250mg QID, then plan to decrease to 125mg QID for 4 weeks with taper; -then since 03/20/2020 patient also on metronidazole IV with the Vancomycin regimen; then since, 03/24/2020, patient also on Florastor; then since 03/25/2020 patient on Questran BID; -as of 03/27/2020. prescription made for vancomycin as 250 mg QID for 4 days to complete initial loading therapy by 03/31/2020 and then taper over 4 weeks start ing on 03/31/2020 as (125 mg QID for 1 week, 125 mg BID the next week, 125 mg daily for 1 week, and then 125 mg every 48 hours for 1 week). prescription of Metronidazole oral 500 mg TID for 7 days prescription of Florastor (saccharomyces boulardii) BID for 30 days prescription of Questran (Cholestyramine ) BID for 7 days Electrolyte Abnormalities (Hypokalemia, Hypophosphatemia) from diarrhea -has been given IV and oral potassium, phosphorous, magnesium supplements during this admission -prescriptions of magnesium oxide 400 mg for 10 days, potassium 15 meq daily for 10 days, potassium phosphate QID for 10 days. Patient should have electrolytes and renal function labs checked within 1 to 2 weeks of hospital discharge Metabolic acidosis (improving) -seen on this admission; she likely has a combined anion gap acidosis (such as potentially from ketoacidosis or renal failure) and non AG metabolic acidosis from diarrhea and metabolic alkalosis from volume contraction. -currently on Spironolactone daily Acute Kidney Injury (resolved) - resolved Pneumonia is ruled out, COVID-19 is ruled out -admission CXR on 03/17/2020: Mild left basilar opacity which favors atelectasis. However, an infectious process could appear similar. Otherwise, unchanged appearance of the chest. Emphysema. Stable interstitial thickening. -was informed on admission by Dr. Harry, patient's previous hospitalist who has seen patient in the past and she is concerned that there are indeed new lung infiltrates and she advised COVID-19 on admission which resulted as negative result on 03/18/2020. patient was started on empiric respiratory antibiotic of Aztreonam and doxycycline (has anaphylactic penicillin allergy), had nasal swab negative for MRSA , procalcitonin elevated as 13 -by 03/18/2020, patient admission blood culture speciating as gram positive cocci in 1 of 2 bottles but is negative for MRSA by PCR. blood cultures repeated on 03/18/2020. because of severity of C.difficile and likely the blood culture is contaminant and the CT scan ruling out pneumonia, stopped aztreonam and doxycyline -by 03/18/2020, patient had CT scan " Diffuse emphysematous change throughout both hemithoraces. Superimposed peribronchial and parenchymal prominence both lung bases diminished compared to the prior study. Scattered bulla are present bilaterally and are stable. There does not appear to be evidence for an acute or superimposed infiltrative process." Bacteremia is ruled out - 1 bottle positive for coag staph not lugdunensis, likely contamination Urinary Tract Infection was suspected but is unlikely -03/25/2020 UA wit no bacteria. awaiting urine culture results. will not continue ceftriaxone at this time as this could hamper C.difficile treatment by eliminating normal gut juan Cirrhosis: -as per review of 03/04/2020 [facility] discharge summary that patient had CT scan revealing cirrhosis of liver with evidence of portal hypertension and and suggested that this was incidentally noted on CT at [facility] in January 2020 as a new finding -Patient had CT scan on previous hospitalization with Suspected hepatic fibrosis/cirrhosis with portal hypertension evidenced by splenomegaly and ascites -admission with right quadrant pain, Hyperammonemia of 48 on 03/17/2020 with INR 1.7 confirms cirrhosis -03/18/2020: "Cirrhosis with manifestations of portal hypertension including extensive varices formation, moderate splenomegaly and a small amount of ascites. Mild focal intrahepatic biliary ductal dilatation adjacent to the gallbladder, a finding of questionable significance. A follow-up liver protocol CT in 6 months to ensure stability is recommended" -gastroenterology consult assessed the patient again on this admission and recommend outpatient follow up with GI clinic for further work up, may need liver transplant referral after completing treatment for C.difficile Anemia - at baseline Thrombocytopenia -has significantly improved on this admission Hypertension -metoprolol 25 mg BID with spirolactone 12.5 mg daily for blood pressure and metabolic acidosis and cirrhosis treatment Vulvovaginitis -as per OBGYN evaluation: The vulva was inflamed and patchy white spots consistent with a vulvovaginitis from yeast and probable irritation from the Lawrence and stool. -Patient completed 3 days of oral Nystatin, prescription of nystatin/triamcinolone topical ointment apply to labia fold for skin irritation and vulvovaginitis -Patient will go with lawrence to [facility]. Follow orthopedic recommendations on weightbearing. If patient can gain better mobility to urinate then lawrence can be taken out at the rehabilitation center or after rehabilitation center stay History of Left femur fracture with ORIF repair -repaired in middle of January 2020 in [facility] - reports increased pain on the left knee, xray ordered Doppler US : no DVT Knee xray: 1. Mild medial displacement at the comminuted distal metaphyseal fracture plane of the left femur may be within the expected postsurgical range. 2. Internal fixation hardware without evidence of breakage. 3. No convincing evidence of a new injury. -Orthopedic/Activities: "nonweightbearing left lower extremity for period of approximately 4 weeks with re-x-ray left femur and knee prior to initiating any type of weightbearing left lower extremity. Physical therapy and Occupational Therapy PRN left knee. Follow-up with orthopedic service [facility] as previously arranged. May follow-up with Dr. Moffett at [facility] as needed" as per Dr. Moffett's orthopedic evaluation -avoid acetaminophen because of cirrhosis. prescription of tramadol 50 mg every 6 hours as needed for pain (16 tablets prescribed) History of compression fractures of spine -pain control and ambulation as tolerated Osteoporosis Vitamin D deficiency - continue Vit D supplementation Pulmonary nodule -9 mm subsolid RML nodule noted on CT 02/29/2020. Patient is a smoker. Follow-up CT in 3-6 months per guidelines. History of Mood disorder -as per outpatient records DVT prophylaxis -Lovenox 40mg SC Full Code Discharge to [facility] Total Time Total Time Spent Total Time Spent (In Minutes): 40 minutes Total Time Includes: Examination of the Patient, Discharge Planning, Medication Reconciliation and Communication With Other Providers Discharge Plan Discharge Items Patient Disposition: Transfer Inpatient Rehab Fac Reason For Visit: C.DIFFICILE,ACUTE KIDNEY INJURY FROM DEHYDRATION,C Discharge Diagnosis: C. difficile Colitis, 2nd Episode Dehydration from Clostridium difficile diarrhea Electrolyte Abnormalities (Hypokalemia, Hypophosphatemia) Metabolic acidosis (improving) Acute Kidney Injury (resolved) Cirrhosis Anemia Thrombocytopenia Hypertension Vulvovaginitis History of Left femur fracture with ORIF repair History of compression fractures of spine Osteoporosis Vitamin D deficiency Condition on Discharge: Fair Activity: Per Instructions section Non-emergency contact: Primary Care Provider Call non-emergency contact if: you have any medication questions Follow-up/Referrals: Jon Redd MD [Primary Care Provider] - Diet: Regular Diet Texture: Dental soft (bite-sized) Diet Comment: lactose intolerant Addtl Attending Provider Instructions: -Infectious disease recommend: Vancomycin dosing as 14 days at 250mg QID, then plan to decrease to 125mg QID for 4 weeks with taper; -then since 03/20/2020 patient also on metronidazole IV with the Vancomycin regimen; then since, 03/24/2020, patient also on Florastor; then since 03/25/2020 patient on Questran BID; as of 03/27/2020. prescription made for vancomycin as 250 mg QID for 4 days to complete initial loading therapy by 03/31/2020 and then taper over 4 weeks starting on 03/31/2020 as (125 mg QID for 1 week, 125 mg BID the next week, 125 mg daily for 1 week, and then 125 mg every 48 hours for 1 week). prescription of Metronidazole oral 500 mg TID for 7 days prescription of Florastor (saccharomyces boulardii) BID for 30 days prescription of Questran (Cholestyramine ) BID for 7 days prescriptions of magnesium oxide 400 mg for 10 days, potassium 15 meq daily for 10 days, potassium phosphate QID for 10 days. Patient should have electrolytes and renal function labs checked within 1 to 2 weeks of hospital discharge metoprolol 25 mg BID with spirolactone 12.5 mg daily for blood pressure and metabolic acidosis and cirrhosis treatment avoid acetaminophen because of ciirhosis. prescription of tramadol 50 mg every 6 hours as needed for pain (16 tablets prescribed) Patient completed 3 days of oral Nystatin, prescription of nystatin/triamcinolone topical ointment apply to labia fold for skin irritation and vulvovaginitis Patient will go with lawrence to [facility]. Follow orthopedic recommendations on weightbearing. 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 Recommend nonweightbearing left lower extremity for period of approximately 4 weeks with re-x-ray left femur and knee prior to initiating any type of weightbearing left lower extremity. Physical therapy and Occupational Therapy PRN left knee. Follow-up with orthopedic service [facility] as previously arranged. May follow-up with Dr. Moffett at [facility] as needed OTHER HEALTH FOLLOWUPS -03/18/2020: "Cirrhosis with manifestations of portal hypertension including extensive varices formation, moderate splenomegaly and a small amount of ascites. Mild focal intrahepatic biliary ductal dilatation adjacent to the gallbladder, a finding of questionable significance. A follow-up liver protocol CT in 6 months to ensure stability is recommended" -gastroenterology consult assessed the patient again on this admission and recommend outpatient follow up with GI clinic for further work up, may need liver transplant referral after completing treatment for C.difficile Pulmonary nodule -9 mm subsolid RML nodule noted on CT 02/29/2020. Patient is a smoker. Follow-up CT in 3-6 months per guidelines. Pending Studies at Discharge: No Stand-Alone Forms: My [facility] Skilled Items Patient informed of condition?: Yes DNR: No Discharge Level of Care: Acute rehab Communicable Disease: Yes (C.difficile) Discharge Prognosis: Stable Lines: None Urinary Catheter: Yes Medications and DC Order Prescriptions: New Phospha 250 Neutral 250 mg Tablet 1 tab PO QID 10 Days Qty: 40 RF: 0 Klor-Con M15 15 mEq tablet,ER particles/crystals 15 meq PO DAILY 10 Days Qty: 10 RF: 0 magnesium oxide 400 mg (241.3 mg magnesium) tablet 400 mg PO QAM 10 Days Qty: 10 RF: 0 vancomycin 250 mg capsule 250 mg PO Q6H 4 Days Qty: 16 RF: 0 metoprolol tartrate 25 mg Tablet 25 mg PO BID 30 Days Qty: 60 RF: 0 spironolactone 25 mg Tablet 12.5 mg PO DAILY 30 Days Qty: 15 RF: 0 tramadol 50 mg Tablet 50 mg PO Q6H PRN (Reason: pain) 4 Days Qty: 16 RF: 0 vancomycin 125 mg capsule 125 mg PO UD 28 Days Qty: 53 RF: 0 Cholestyramine Light 4 gram Powder In Packet 4 g PO BID 7 Days Qty: 14 RF: 0 Florastor 250 mg Capsule 500 mg PO BID 30 Days Qty: 120 RF: 0 nystatin-triamcinolone 100,000-0.1 unit/g-% Cream 1 applic EXT DAILY 14 Days Qty: 15 RF: 0 Continued enoxaparin 40 mg/0.4 mL syringe 40 mg subcut DAILY RF: 0 ascorbic acid (vitamin C) 500 mg Tablet 500 mg PO DAILY RF: 0 calcium carbonate-vitamin D3 [Calcium 500 + D] 500 mg(1,250mg) -200 unit Tablet 1 tab PO DAILY RF: 0 multivitamin Tablet 1 tab PO DAILY RF: 0 olopatadine 0.1 % Drops 1 drp OPB BID RF: 0 albuterol sulfate 90 mcg/actuation Hfa Aerosol Inhaler 2 puff INHALATION QID PRN (Reason: Wheezing) RF: 0 fluticasone propionate 50 mcg/actuation [place],Suspension 2 spray INTRANASAL DAILY RF: 0 loratadine 10 mg Tablet 10 mg PO DAILY PRN (Reason: Allergy Symptoms) RF: 0 ergocalciferol (vitamin D2) 1,250 mcg (50,000 unit) Capsule 50,000 unit PO Q7D Qty: 3 RF: 0 ferrous sulfate 325 mg (65 mg iron) Tablet,Delayed Release (Dr/Ec) 325 mg PO BIDM 30 Days Qty: 60 RF: 0 Discontinued acetaminophen [Tylenol] 325 mg Tablet 650 mg PO Q4H PRN (Reason: fever/pain) RF: 0 acetaminophen-codeine 300-30 mg tablet 1 - 2 tab PO Q4H PRN (Reason: Pain) RF: 0 metoprolol tartrate 50 mg tablet 50 mg PO BID RF: 0 Discharge Orders: Discharge Order (Routine); Ordered 03/27/20 Ordered By: Joshua David Admission Data Admit Date/Time: 03/17/20 15:30 Attending Provider: Joshua David Admit Provider: Joshua David Primary Care Provider: Jon Redd Other Providers: Mercedez Valencia ; Vicki Medellin ; [facility] ; [facility] ; Emile Moffett ; Tracey Boo ; Jean Paul Abebe
[2020-03-27 12:12] VITALS: BP 126/73
== END 2020-03-27 13:21 | DRG 372 ==
LOC: ED 11:53 → SUATTDRO 15:30 → 2W 15:30 → 2N 16:12

== ENCOUNTER 2020-04-20 00:46 | Inpatient (IN) ==
[2020-04-20] MEDS ORDERED: ACETAMINOPHEN 1,000 MG/100 ML VIAL IV STA (00:58)
[2020-04-20] MEDS ORDERED: SODIUM CHLORIDE 0.9% 1000ML 1,000 ML IV ONE ×2 (00:58→02:18)
[2020-04-20 01:17] LABS: Basophils # (auto) 0.03 K/uL (0-0.2); Basophils % (auto) 0.2 %; Hemoglobin 12.3 g/dL (12.0-16.0); Immature Granulocytes # (auto) 0.04 K/uL (0.00-0.02); Immature Granulocytes % (auto) 0.3 %; Lymphocytes # (auto) 0.66 K/uL (1.2-3.4); Lymphocytes % (auto) 4.4 %; Mean Corpuscular Hgb Conc 32.4 g/dL (32-36); Mean Corpuscular Volume 92.7 fL (80-100); Mean Platelet Volume 11.7 fL (7.4-10.4); Monocytes # (auto) 0.76 K/uL (0.11-0.59); Monocytes % (auto) 5.1 %; Neutrophils # (auto) 13.53 K/uL (1.4-6.5); Platelet Count 146 K/uL (130-400); RDW Coefficient of Variation 18.3 % (11.5-14.5); RDW Standard Deviation 62.8 fL (36.4-46.3); White Blood Count 15.02 K/uL (4.8-10.8)
[2020-04-20 01:22] LABS: Appearance Urine Cloudy (Clear); Bilirubin Urine Negative (Negative); Blood Urine Negative (Negative); Color Urine Dark Yellow; Glucose Urine UA Negative (Negative); Ketones Urine Negative (Negative); Leukocyte Esterase Urine 2+ (Negative); Nitrite Urine Positive (Negative); RBC Urine Automated 0-4 /hpf (0-4); Specific Gravity Urine 1.022 (1.000-1.030); Urobilinogen Urine Negative (Negative); WBC Urine Automated >30 /hpf (0-5); pH Urine 8.5 (4.5-7.5)
[2020-04-20 01:33] LABS: INR 1.4 (0.9-1.1); Prothrombin Time 14.6 Seconds (9.0-12.0)
[2020-04-20 01:35] LABS: Alanine Aminotransferase 38 U/L (12-78); Albumin Level 2.6 gm/dl (3.4-5.0); Aspartate Aminotransferase 37 U/L (15-37); BUN Creatinine Ratio 15.5 (10-20); Blood Urea Nitrogen 9 mg/dl (7-18); Carbon Dioxide 21 mmol/L (21-32); Chloride 106 mmol/L (98-107); Est GFR (African American) 117.5; Est GFR (Non-African American) 101.3; Glucose 120 mg/dl (70-99); Magnesium 1.7 mg/dl (1.8-2.4); Potassium 3.1 mmol/L (3.5-5.1); Sodium 137 mmol/L (136-145)
[2020-04-20 01:35] LABS: Protein Urine 1+ (Negative); Sulfosalicylic Acid Urine Positive (Negative)
[2020-04-20 01:37] LABS: Bacteria Urine Automated 4+ (Negative); Mucus Urine Present (None Prsent)
[2020-04-20 01:40] LABS: Albumin Globulin Ratio 0.7 (0.9-2); Alkaline Phosphatase 120 U/L (45-117); Bilirubin,Total 1.2 mg/dl (0.2-1); Globulin 3.8 gm/dl (2.5-4.0); Total Protein 6.4 gm/dl (6.4-8.2); Troponin I < 0.015 ng/ml (0-0.045)
[2020-04-20] MEDS ORDERED: MAGNESIUM SULFATE / D5W 1 GM/100 ML BAG IV STA (02:18)
--- NOTE | 2020-04-20 02:21 | Emergency Department Note ---
History of Present Illness General Chief complaint: Unresponsive Stated complaint: Altered level of responsiveness Time Seen by Provider: 04/20/20 00:53 Source: EMS and RN notes reviewed Mode of arrival: EMS Limitations: altered mental status History of Present Illness Provider complaint: Altered mental status, fever Onset (ago): unknown Maximum Pain Intensity: 9 This is a 60-year-old female who was brought in by EMS from home due to decreased level responsiveness and fever noted by family today. Patient had surgery several weeks ago for a left femur fracture and subsequently rehab at [facility]. During that time patient was receiving antibiotic treatment for C. difficile. Since coming home she has had continued diarrhea. EMS reports today the patient developed a fever and the patient seemed less responsive per family so 911 was called and the patient brought in here. Patient is very hard of hearing and can answer a few questions, does respond to painful stimuli and will follow commands. Patient otherwise not able to provide any additional history. Patient was noted to have obvious diarrhea on arrival, this was immediately hemocculted and was negative. Patient was tachycardic, but normotensive, and found to have an initial temperature of 102 Fahrenheit. Pt seen during a time of high acuity and national emergency pandemic while wear ing PPE. Home Medications Home Medications Medication Instructions Recorded Confirmed Type loratadine 10 mg PO DAILY PRN 02/24/20 04/20/20 History olopatadine 1 drp OPB BID 02/24/20 04/20/20 History acetaminophen 650 mg PO Q6H PRN 04/20/20 04/20/20 History acetaminophen-codeine 1 - 2 tab PO Q4H PRN 04/20/20 04/20/20 History [Tylenol-Codeine #3] albuterol sulfate 2.5 mg INHALATION DIRECTED PRN 04/20/20 04/20/20 History albuterol sulfate [ProAir HFA] 2 puff INHALATION QID 04/20/20 04/20/20 History ascorbic acid (vitamin C) [Vitamin 500 mg PO DAILY 04/20/20 04/20/20 History C] calcium carbonate-vitamin D3 1 cap PO BID 04/20/20 04/20/20 History [Calcium 600 + D(3)] dextroamphetamine-amphetamine 20 mg PO BID 04/20/20 04/20/20 History [Adderall] fexofenadine 180 mg PO DAILY 04/20/20 04/20/20 History fluticasone propionate 2 spray INTRANASAL DAILY 04/20/20 04/20/20 History hydrochlorothiazide 25 mg PO DAILY 04/20/20 04/20/20 History lisinopril 10 mg PO DAILY 04/20/20 04/20/20 History metoprolol succinate 50 mg PO BID 04/20/20 04/20/20 History hvpjtgsa-zua-DB-lycopen-lutein 1 tab PO DAILY 04/20/20 04/20/20 History [Centrum Silver] ondansetron HCl [Zofran] 4 mg PO Q6H PRN 04/20/20 04/20/20 History Allergies Allergy/AdvReac Type Severity Reaction Status Date / Time Penicillins Allergy Severe ANAPHYLAXIS Verified 04/02/20 21:12 hydrocodone AdvReac Intermediate Nausea Unverified 04/02/20 21:12 [From Lorcet (hydrocodone)] Past Med/Surg History Social History Preferred Language: Macedonian Communication Ability: Impaired Offal Separator Required: No Beliefs That Will Affect Care: None marital status: Current Living Situation: Spouse Other Information That Helps Us Care for You: No Feels Safe at Home: Yes Safety Concerns: Feels Safe At This Time Smoking Status: Unknown if ever smoked Hx Alcohol Use: No Hx Substance Use: No Review of Systems Unobtainable due to cognitive status Physical Exam Vital Signs Vital Signs - 24 hr 04/20/20 00:40 04/20/20 01:00 04/20/20 01:30 Temperature 39.2 C H Temperature Source Rectal Pulse Rate 91 H 94 H 92 H Pulse Rate from SpO2 Sensor Respiratory Rate 24 Blood Pressure 139/73 143/75 H 167/76 H Blood Pressure Mean 95 98 119 Pulse Oximetry 95 94 95 Oxygen Delivery Method Room Air Sepsis Recent Fever Within 48 Hours Yes Sepsis Action Taken by Nursing No Action Required 04/20/20 02:04 04/20/20 02:05 04/20/20 03:00 Temperature 38.9 C H Temperature Source Pulse Rate 86 88 90 Pulse Rate from SpO2 Sensor 88 Respiratory Rate 18 20 Blood Pressure 158/67 H 158/67 H 157/68 H Blood Pressure Mean 97 108 97 Pulse Oximetry 95 94 95 Oxygen Delivery Method Room Air Sepsis Recent Fever Within 48 Hours Sepsis Action Taken by Nursing 04/20/20 03:30 Temperature Temperature Source Pulse Rate 95 H Pulse Rate from SpO2 Sensor Respiratory Rate 24 Blood Pressure 166/84 H Blood Pressure Mean 126 Pulse Oximetry 95 Oxygen Delivery Method Sepsis Recent Fever Within 48 Hours Sepsis Action Taken by Nursing GENERAL: alert, ill appearing, well nourished, no distress, non-toxic EYE EXAM: normal conjunctiva, PERRL and EOM's grossly intact OROPHARYNX: no exudate, no erythema, lips, buccal mucosa, and tongue normal and mucous membranes are moist NECK: supple, no nuchal rigidity, no adenopathy, non-tender LUNGS: Clear to auscultation. Normal chest wall mechanics, no w/r/r HEART: no murmurs, S1 normal and S2 normal ABDOMEN: abdomen soft, non-tender, normo-active bowel sounds, no masses, no rebound or guarding. RECTAL: Diarrhea noted, no gross blood, no anal fissures or obvious hemorrhoids, guaiac negative on testing BACK: Back is symmetrical on inspection and there is no deformity, no midline tenderness, no CVA tenderness. SKIN: no rashes and no bruising UPPER EXTREMITIES: upper extremities are grossly normal. FROM, nml pulses b/l. LOWER EXTREMITIES: No pitting edema. FROM, nml pulses b/l. NEURO EXAM: Pt wakes up to loud voice, EMS does report she is very hard to hearing, will open eyes to voice, will follow simple commands, can answer simple yes/no questions Course Course 0135: Discussed extensively with at bedside. He describes difficult recovery from surgery with subsequent C.diff and persistent diarrhea despite completing full course of treatment. He states he is unable to care for her at home. States she has abdominal and leg edema from her cirrhosis. States no fever until tonight. Discussed her condition at this time. 0306: Case discussed with Dr. Granados. Administered Medications Acetaminophen (Tylenol) 325 mg PO Q6H PRN PRN Reason: Mild Pain Stop: 05/20/20 06:24 Last Admin: 04/20/20 21:46 Dose: 325 mg Documented by: [id number] Admin: 04/20/20 10:36 Dose: 325 mg Documented by: [id number] Calamine/Phenol (Calmoseptine) 1 appln EXT TID [facility] Stop: 06/25/20 08:59 Last Admin: 04/22/20 20:39 Dose: 1 appln Documented by: [id number] Admin: 04/22/20 13:50 Dose: 1 appln Documented by: [id number] Admin: 04/22/20 09:00 Dose: 1 appln Documented by: [id number] Cholestyramine Resin (Questran) 4 gm PO BID@1000,2200 [facility] Stop: 05/22/20 21:59 Last Admin: 04/22/20 21:47 Dose: 4 gm Documented by: [id number] Fexofenadine HCl (Amber) 180 mg PO DAILY [facility] Stop: 05/20/20 08:59 Last Admin: 04/22/20 08:58 Dose: 180 mg Documented by: [id number] Admin: 04/21/20 08:41 Dose: 180 mg Documented by: [id number] Admin: 04/20/20 09:07 Dose: Not Given Documented by: [id number] Fluticasone Propionate (Flonase) 2 sprays NA DAILY [facility] Stop: 05/20/20 08:59 Last Admin: 04/22/20 09:00 Dose: 2 sprays Documented by: [id number] Admin: 04/21/20 08:42 Dose: 2 sprays Documented by: [id number] Admin: 04/20/20 09:07 Dose: Not Given Documented by: [id number] Heparin Sodium (Porcine) (Heparin Sodium (Porcine)) 5,000 units SQ Q8 [facility] Stop: 05/21/20 21:59 Last Admin: 04/22/20 20:41 Dose: 5,000 units Documented by: [id number] Cosigned by: [id number] Admin: 04/22/20 13:51 Dose: 5,000 units Documented by: [id number] Cosigned by: [id number] Admin: 04/22/20 06:10 Dose: 5,000 units Documented by: [id number] Cosigned by: [id number] Admin: 04/21/20 21:33 Dose: 5,000 units Documented by: [id number] Cosigned by: [id number] Metronidazole (Flagyl) 500 mg in 100 mls @ 100 mls/hr IV Q8H [facility] Stop: 04/30/20 11:59 Last Infusion: 04/22/20 21:48 Dose: 0 mls/hr Documented by: [id number] Admin: 04/22/20 20:37 Dose: 100 mls/hr Documented by: [id number] Infusion: 04/22/20 15:59 Dose: 0 mls/hr Documented by: [id number] Admin: 04/22/20 13:48 Dose: 100 mls/hr Documented by: [id number] Infusion: 04/22/20 05:29 Dose: 0 mls/hr Documented by: [id number] Admin: 04/22/20 04:17 Dose: 100 mls/hr Documented by: [id number] Infusion: 04/21/20 21:26 Dose: 0 mls/hr Documented by: [id number] Admin: 04/21/20 20:06 Dose: 100 mls/hr Documented by: [id number] Infusion: 04/21/20 12:55 Dose: 0 mls/hr Documented by: [id number] Admin: 04/21/20 11:55 Dose: 100 mls/hr Documented by: [id number] Infusion: 04/21/20 05:58 Dose: 100 mls/hr Documented by: [id number] Admin: 04/21/20 04:48 Dose: 100 mls/hr Documented by: [id number] Infusion: 04/20/20 22:53 Dose: 100 mls/hr Documented by: [id number] Admin: 04/20/20 21:42 Dose: 100 mls/hr Documented by: [id number] Infusion: 04/20/20 13:25 Dose: 0 mls/hr Documented by: [id number] Admin: 04/20/20 12:11 Dose: 100 mls/hr Documented by: [id number] Sodium Chloride (Nss 1000ml) 1,000 mls @ 75 mls/hr IV .[id number] [facility] Stop: 05/20/20 17:14 Last Admin: 04/22/20 21:48 Dose: 75 mls/hr Documented by: [id number] Infusion: 04/22/20 21:48 Dose: 75 mls/hr Documented by: [id number] Admin: 04/22/20 11:08 Dose: 75 mls/hr Documented by: [id number] Infusion: 04/22/20 11:08 Dose: 75 mls/hr Documented by: [id number] Admin: 04/22/20 06:09 Dose: 75 mls/hr Documented by: [id number] Infusion: 04/22/20 04:16 Dose: 75 mls/hr Documented by: [id number] Admin: 04/21/20 14:56 Dose: 75 mls/hr Documented by: [id number] Infusion: 04/21/20 14:06 Dose: 75 mls/hr Documented by: [id number] Infusion: 04/21/20 00:46 Dose: 75 mls/hr Documented by: [id number] Infusion: 04/20/20 17:42 Dose: 0 mls/hr Documented by: [id number] Admin: 04/20/20 17:41 Dose: 75 mls/hr Documented by: [id number] Ceftriaxone Sodium 1,000 mg/ (Dextrose) 60 mls @ 100 mls/hr IV Q24H [facility]; Protocol Stop: 04/26/20 11:59 Last Infusion: 04/22/20 11:57 Dose: 0 mls/hr Documented by: [id number] Admin: 04/22/20 11:08 Dose: 100 mls/hr Documented by: [id number] Lactobacillus Acidophilus (Floranex) 4 tab PO QIDM [facility] Stop: 05/20/20 16:59 Last Admin: 04/22/20 20:39 Dose: 4 tab Documented by: [id number] Admin: 04/22/20 17:31 Dose: 4 tab Documented by: [id number] Admin: 04/22/20 13:48 Dose: 4 tab Documented by: [id number] Admin: 04/22/20 08:59 Dose: 4 tab Documented by: [id number] Admin: 04/21/20 20:12 Dose: 4 tab Documented by: [id number] Admin: 04/21/20 16:26 Dose: 4 tab Documented by: [id number] Admin: 04/21/20 11:56 Dose: 4 tab Documented by: [id number] Admin: 04/21/20 08:41 Dose: 4 tab Documented by: [id number] Admin: 04/20/20 21:30 Dose: 4 tab Documented by: [id number] Admin: 04/20/20 17:38 Dose: 4 tab Documented by: [id number] Metoprolol Succinate (Toprol Xl) 50 mg PO BID [facility] Stop: 05/20/20 08:59 Last Admin: 04/22/20 20:41 Dose: Not Given Documented by: [id number] Admin: 04/22/20 08:59 Dose: 50 mg Documented by: [id number] Admin: 04/21/20 20:15 Dose: 50 mg Documented by: [id number] Admin: 04/21/20 08:41 Dose: 50 mg Documented by: [id number] Admin: 04/20/20 21:34 Dose: 50 mg Documented by: [id number] Admin: 04/20/20 09:08 Dose: Not Given Documented by: [id number] Multivitamins/Minerals (Multivitamin W/ Minerals Tab) 1 tab PO DAILY [facility] Stop: 05/20/20 08:59 Last Admin: 04/22/20 08:58 Dose: 1 tab Documented by: [id number] Admin: 04/21/20 08:41 Dose: 1 tab Documented by: [id number] Admin: 04/20/20 09:07 Dose: Not Given Documented by: [id number] Potassium Chloride (Klor-Con M20) 40 meq PO BID [facility] Stop: 05/22/20 08:59 Last Admin: 04/22/20 20:41 Dose: 40 meq Documented by: [id number] Admin: 04/22/20 08:58 Dose: 40 meq Documented by: [id number] Raspberry (Raspberry) 5 ml PO 0000,0800,1200,2000 [facility] Stop: 05/04/20 11:59 Last Admin: 04/22/20 20:38 Dose: 5 ml Documented by: [id number] Admin: 04/22/20 13:49 Dose: 5 ml Documented by: [id number] Admin: 04/22/20 08:58 Dose: 5 ml Documented by: [id number] Admin: 04/22/20 00:03 Dose: 5 ml Documented by: [id number] Admin: 04/21/20 20:10 Dose: 5 ml Documented by: [id number] Admin: 04/21/20 11:55 Dose: 5 ml Documented by: [id number] Admin: 04/21/20 08:41 Dose: 5 ml Documented by: [id number] Admin: 04/21/20 00:40 Dose: 5 ml Documented by: [id number] Admin: 04/20/20 21:31 Dose: 5 ml Documented by: [id number] Admin: 04/20/20 12:11 Dose: 5 ml Documented by: [id number] Tramadol HCl (Ultram) 25 mg PO Q4H PRN PRN Reason: Pain Stop: 05/20/20 06:24 Last Admin: 04/21/20 18:16 Dose: 25 mg Documented by: [id number] Admin: 04/21/20 00:45 Dose: 25 mg Documented by: [id number] Vancomycin HCl (Vancomycin Hcl) 125 mg PO 0000,0800,1200,2000 [facility] Stop: 04/30/20 11:59 Last Admin: 04/22/20 20:38 Dose: 125 mg Documented by: [id number] Admin: 04/22/20 13:49 Dose: 125 mg Documented by: [id number] Admin: 04/22/20 08:58 Dose: 125 mg Documented by: [id number] Admin: 04/22/20 00:03 Dose: 125 mg Documented by: [id number] Admin: 04/21/20 20:10 Dose: 125 mg Documented by: [id number] Admin: 04/21/20 11:55 Dose: 125 mg Documented by: [id number] Admin: 04/21/20 08:41 Dose: 125 mg Documented by: [id number] Admin: 04/21/20 00:39 Dose: 125 mg Documented by: [id number] Admin: 04/20/20 21:30 Dose: 125 mg Documented by: [id number] Admin: 04/20/20 12:11 Dose: 125 mg Documented by: [id number] Discontinued Medications Sodium Chloride (Nss 1000ml) 1,000 mls @ 999 mls/hr IV .Q1H1M ONE Stop: 04/20/20 01:58 Last Infusion: 04/20/20 02:45 Dose: 0 mls/hr Documented by: [id number] Admin: 04/20/20 01:37 Dose: 999 mls/hr Documented by: [id number] Acetaminophen (Ofirmev) 1,000 mg in 100 mls @ 400 mls/hr IV NOW STA Stop: 04/20/20 01:12 Last Infusion: 04/20/20 01:52 Dose: 0 mls/hr Documented by: [id number] Admin: 04/20/20 01:37 Dose: 400 mls/hr Documented by: [id number] Magnesium Sulfate/Dextrose (Magnesium Sulfate / D5w) 1 gm in 100 mls @ 100 mls/hr IV NOW STA Stop: 04/20/20 03:17 Last Infusion: 04/20/20 03:23 Dose: 0 mls/hr Documented by: [id number] Admin: 04/20/20 02:22 Dose: 100 mls/hr Documented by: [id number] Sodium Chloride (Nss 1000ml) 1,000 mls @ 999 mls/hr IV .Q1H1M ONE Stop: 04/20/20 03:18 Last Infusion: 04/20/20 03:46 Dose: 0 mls/hr Documented by: [id number] Admin: 04/20/20 02:45 Dose: 999 mls/hr Documented by: [id number] Levofloxacin/Dextrose (Levaquin/D5w) 750 mg in 150 mls @ 100 mls/hr IV Q24H [facility] Stop: 04/30/20 02:29 Last Infusion: 04/20/20 03:45 Dose: 0 mls/hr Documented by: [id number] Infusion: 04/20/20 03:45 Dose: 100 mls/hr Documented by: [id number] Admin: 04/20/20 03:24 Dose: 100 mls/hr Documented by: [id number] Metronidazole (Flagyl) 500 mg in 100 mls @ 100 mls/hr IV NOW STA Stop: 04/20/20 04:09 Last Infusion: 04/20/20 04:55 Dose: 0 mls/hr Documented by: [id number] Admin: 04/20/20 03:50 Dose: 100 mls/hr Documented by: [id number] Cefepime HCl (Maxipime) 2,000 mg in 20 mls @ 5 mls/min IV NOW STA; Protocol Stop: 04/20/20 03:27 Last Admin: 04/20/20 03:45 Dose: 5 mls/min Documented by: [id number] Doxycycline Hyclate 100 mg/ (Dextrose) 110 mls @ 50 mls/hr IV NOW STA Stop: 04/20/20 08:36 Last Infusion: 04/20/20 10:36 Dose: 0 mls/hr Documented by: [id number] Admin: 04/20/20 07:40 Dose: 50 mls/hr Documented by: [id number] Potassium Chloride (K Ash / Wtr) 10 meq in 100 mls @ 100 mls/hr IV Q1H [facility] Stop: 04/20/20 10:24 Last Infusion: 04/20/20 13:26 Dose: 0 mls/hr Documented by: [id number] Admin: 04/20/20 10:36 Dose: 100 mls/hr Documented by: [id number] Infusion: 04/20/20 10:28 Dose: 0 mls/hr Documented by: [id number] Admin: 04/20/20 09:06 Dose: 100 mls/hr Documented by: [id number] Infusion: 04/20/20 08:39 Dose: 100 mls/hr Documented by: [id number] Admin: 04/20/20 07:39 Dose: 100 mls/hr Documented by: [id number] Infusion: 04/20/20 07:39 Dose: 100 mls/hr Documented by: [id number] Admin: 04/20/20 07:39 Dose: 100 mls/hr Documented by: [id number] Potassium Chloride 40 meq/ (Sodium Chloride) 1,020 mls @ 60 mls/hr IV .Q17H [facility] Stop: 04/20/20 23:04 Last Infusion: 04/21/20 00:47 Dose: 60 mls/hr Documented by: [id number] Admin: 04/20/20 07:40 Dose: 60 mls/hr Documented by: [id number] Cefepime HCl 2,000 mg/ Syringe 20 mls @ 5 mls/min IV Q12H [facility]; Protocol Stop: 04/30/20 15:59 Last Admin: 04/22/20 04:16 Dose: 5 mls/min Documented by: [id number] Admin: 04/21/20 16:26 Dose: 5 mls/min Documented by: [id number] Admin: 04/21/20 04:48 Dose: 5 mls/min Documented by: [id number] Admin: 04/20/20 16:30 Dose: 5 mls/min Documented by: [id number] Potassium Chloride (K Ash / Wtr) 10 meq in 100 mls @ 100 mls/hr IV Q1H [facility] Stop: 04/21/20 15:59 Last Infusion: 04/21/20 16:33 Dose: 0 mls/hr Documented by: [id number] Admin: 04/21/20 15:22 Dose: 100 mls/hr Documented by: [id number] Infusion: 04/21/20 15:10 Dose: 100 mls/hr Documented by: [id number] Admin: 04/21/20 14:10 Dose: 100 mls/hr Documented by: [id number] Infusion: 04/21/20 14:10 Dose: 100 mls/hr Documented by: [id number] Admin: 04/21/20 13:11 Dose: 100 mls/hr Documented by: [id number] Infusion: 04/21/20 12:56 Dose: 0 mls/hr Documented by: [id number] Admin: 04/21/20 11:55 Dose: 100 mls/hr Documented by: [id number] Influenza Virus Vaccine Quadrival (Flucelvax Quad Vaccine) 0.5 ml IM .ONCE ONE Stop: 04/20/20 06:55 Last Admin: 04/20/20 17:03 Dose: Not Given Documented by: [id number] Ioversol (Optiray 320 100ml) 91 ml IV ONCE PRN PRN Reason: Interaction Checking Stop: 04/24/20 05:57 Last Admin: 04/20/20 05:59 Dose: 1 ml Documented by: [id number] Naloxone HCl (Narcan) 0.4 mg IV NOW STA Stop: 04/20/20 03:24 Last Admin: 04/20/20 03:44 Dose: 0.4 mg Documented by: [id number] Non-Formulary Medication (Dextroamphetamine-Amphetamine [Adderall]) 20 mg PO BID [facility] Stop: 05/20/20 08:59 Last Admin: 04/20/20 09:07 Dose: Not Given Documented by: [id number] Non-Formulary Medication (Olopatadine) 1 drops OPB BID [facility] Stop: 05/20/20 08:59 Last Admin: 04/20/20 09:07 Dose: Not Given Documented by: [id number] Pneumococcal Polyvalent Vaccine (Pneumovax-23) 25 mcg IM .ONCE ONE Stop: 04/20/20 06:55 Last Admin: 04/20/20 17:03 Dose: Not Given Documented by: [id number] Potassium Chloride (Klor-Con M20) 40 meq PO NOW STA Stop: 04/20/20 12:52 Last Admin: 04/20/20 12:00 Dose: 40 meq Documented by: [id number] Potassium Chloride (Klor-Con M20) 40 meq PO NOW STA Stop: 04/21/20 11:36 Last Admin: 04/21/20 12:31 Dose: 40 meq Documented by: [id number] Potassium Chloride (Klor-Con M20) 40 meq PO NOW STA Stop: 04/22/20 15:40 Last Admin: 04/22/20 17:30 Dose: 40 meq Documented by: [id number] Critical Care Time Critical Care Time: Yes Total Critical Care Time: 42 Critical care of 42 min performed to assess and manage high likelihood of life- threatening sepsis, involving labs/imaging performed with assessment to evaluate sepsis diagnosis with frequent reassessment. This time includes bedside time, treatment discussions with patient/family/consultants, documentation time and excludes procedure time. Medical Decision Making Differential Diagnosis Differential diagnosis: Etiologies such as viral syndrome, otitis, pharyngitis, pneumonia, influenza, meningitis, urinary tract infection, sepsis, bacteremia, as well as others were entertained. Medical Records Attestation: I reviewed the patient's medical records. Home Medications Current Medication List: was personally reviewed by me Laboratory Data Attestation: I reviewed the patient's lab results. Result diagrams: 04/22/20 09:14 04/22/20 18:47 Lab Results 04/20/20 04/20/20 04/20/20 Range/Units 00:30 00:30 00:30 WBC 15.02 H (4.8-10.8) K/uL RBC 4.10 L (4.2-5.4) M/uL Hgb 12.3 (12.0-16.0) g/dL Hct 38.0 (37-47) % MCV 92.7 (80-100) fL MCH 30.0 (25-34) pg MCHC 32.4 (32-36) g/dL RDW Std Deviation 62.8 H (36.4-46.3) fL RDW Coeff of Dewayne 18.3 H (11.5-14.5) % Plt Count 146 (130-400) K/uL MPV 11.7 H (7.4-10.4) fL Immature Gran % (Auto) 0.3 % Neut % (Auto) 90.0 % Lymph % (Auto) 4.4 % Glasscock % (Auto) 5.1 % Eos % (Auto) 0.0 % Baso % (Auto) 0.2 % Immature Gran # (Auto) 0.04 H (0.00-0.02) K/uL Neut # (Auto) 13.53 H (1.4-6.5) K/uL Lymph # (Auto) 0.66 L (1.2-3.4) K/uL Glasscock # (Auto) 0.76 H (0.11-0.59) K/uL Eos # (Auto) 0.00 (0-0.5) K/uL Baso # (Auto) 0.03 (0-0.2) K/uL PT 14.6 H (9.0-12.0) Seconds INR 1.4 H (0.9-1.1) Sodium (136-145) mmol/L Potassium (3.5-5.1) mmol/L Chloride (98-107) mmol/L Carbon Dioxide (21-32) mmol/L Anion Gap (3-11) BUN (7-18) mg/dl Creatinine (0.6-1.2) mg/dl Est Cr Clr Drug Dosing Est GFR ( Amer) Est GFR (Non-Af Amer) BUN/Creatinine Ratio (10-20) Glucose (70-99) mg/dl POC Glucose (70-99) mg/dl Estimat Average Glucose mg/dl Hemoglobin A1c (4.5-5.6) % Lactate (0.4-2.0) mmol/L Calcium (8.5-10.1) mg/dl Phosphorus (2.5-4.9) mg/dl Magnesium (1.8-2.4) mg/dl Total Bilirubin (0.2-1) mg/dl AST (15-37) U/L ALT (12-78) U/L Alkaline Phosphatase (45-117) U/L Troponin I (0-0.045) ng/ml Total Protein (6.4-8.2) gm/dl Albumin (3.4-5.0) gm/dl Globulin (2.5-4.0) gm/dl Albumin/Globulin Ratio (0.9-2) Procalcitonin 0.19 (0-0.5) ng/ml Urine Color Urine Appearance (Clear) Urine pH (4.5-7.5) Ur Specific Terril (1.000-1.030) Urine Protein (Negative) Urine Glucose (UA) (Negative) Urine Ketones (Negative) Urine Blood (Negative) Urine Nitrite (Negative) Urine Bilirubin (Negative) Urine Urobilinogen (Negative) Ur Leukocyte Esterase (Negative) Urine WBC (Auto) (0-5) /hpf Urine RBC (Auto) (0-4) /hpf U Hyaline Cast (Auto) (0-5) /lpf U Epithel Cells (Auto) (0-5) /lpf Urine Bacteria (Auto) (Negative) Granular Casts (0) /lpf Urine Mucus (None Prsent) Urine Opiates Screen (Neg) Ur Methadone, Qual (Neg) Urine Barbiturates (Neg) Ur Phencyclidine (PCP) (Neg) U Amphetamin/Meth Scrn (Neg) MDMA (Ecstasy) Screen (Neg) U Benzodiazepines Scrn (Neg) Ur Cocaine Metabolite (Neg) U Marijuana (THC) Screen (Neg) Influenza Type A (PCR) (Neg) Influenza Type B (PCR) (Neg) 04/20/20 04/20/20 04/20/20 Range/Units 00:30 00:30 00:54 WBC (4.8-10.8) K/uL RBC (4.2-5.4) M/uL Hgb (12.0-16.0) g/dL Hct (37-47) % MCV (80-100) fL MCH (25-34) pg MCHC (32-36) g/dL RDW Std Deviation (36.4-46.3) fL RDW Coeff of Dewayne (11.5-14.5) % Plt Count (130-400) K/uL MPV (7.4-10.4) fL Immature Gran % (Auto) % Neut % (Auto) % Lymph % (Auto) % Glasscock % (Auto) % Eos % (Auto) % Baso % (Auto) % Immature Gran # (Auto) (0.00-0.02) K/uL Neut # (Auto) (1.4-6.5) K/uL Lymph # (Auto) (1.2-3.4) K/uL Glasscock # (Auto) (0.11-0.59) K/uL Eos # (Auto) (0-0.5) K/uL Baso # (Auto) (0-0.2) K/uL PT (9.0-12.0) Seconds INR (0.9-1.1) Sodium 137 (136-145) mmol/L Potassium 3.1 L (3.5-5.1) mmol/L Chloride 106 (98-107) mmol/L Carbon Dioxide 21 (21-32) mmol/L Anion Gap 10.0 (3-11) BUN 9 (7-18) mg/dl Creatinine 0.56 L (0.6-1.2) mg/dl Est Cr Clr Drug Dosing Not Reportable Est GFR ( Amer) 117.5 Est GFR (Non-Af Amer) 101.3 BUN/Creatinine Ratio 15.5 (10-20) Glucose 120 H (70-99) mg/dl POC Glucose 126 H (70-99) mg/dl Estimat Average Glucose 88 mg/dl Hemoglobin A1c 4.7 (4.5-5.6) % Lactate (0.4-2.0) mmol/L Calcium 8.0 L (8.5-10.1) mg/dl Phosphorus 2.6 (2.5-4.9) mg/dl Magnesium 1.7 L (1.8-2.4) mg/dl Total Bilirubin 1.2 H (0.2-1) mg/dl AST 37 (15-37) U/L ALT 38 (12-78) U/L Alkaline Phosphatase 120 H (45-117) U/L Troponin I < 0.015 (0-0.045) ng/ml Total Protein 6.4 (6.4-8.2) gm/dl Albumin 2.6 L (3.4-5.0) gm/dl Globulin 3.8 (2.5-4.0) gm/dl Albumin/Globulin Ratio 0.7 L (0.9-2) Procalcitonin (0-0.5) ng/ml Urine Color Urine Appearance (Clear) Urine pH (4.5-7.5) Ur Specific Terril (1.000-1.030) Urine Protein (Negative) Urine Glucose (UA) (Negative) Urine Ketones (Negative) Urine Blood (Negative) Urine Nitrite (Negative) Urine Bilirubin (Negative) Urine Urobilinogen (Negative) Ur Leukocyte Esterase (Negative) Urine WBC (Auto) (0-5) /hpf Urine RBC (Auto) (0-4) /hpf U Hyaline Cast (Auto) (0-5) /lpf U Epithel Cells (Auto) (0-5) /lpf Urine Bacteria (Auto) (Negative) Granular Casts (0) /lpf Urine Mucus (None Prsent) Urine Opiates Screen (Neg) Ur Methadone, Qual (Neg) Urine Barbiturates (Neg) Ur Phencyclidine (PCP) (Neg) U Amphetamin/Meth Scrn (Neg) MDMA (Ecstasy) Screen (Neg) U Benzodiazepines Scrn (Neg) Ur Cocaine Metabolite (Neg) U Marijuana (THC) Screen (Neg) Influenza Type A (PCR) (Neg) Influenza Type B (PCR) (Neg) 04/20/20 04/20/20 04/20/20 Range/Units 01:00 01:00 01:12 WBC (4.8-10.8) K/uL RBC (4.2-5.4) M/uL Hgb (12.0-16.0) g/dL Hct (37-47) % MCV (80-100) fL MCH (25-34) pg MCHC (32-36) g/dL RDW Std Deviation (36.4-46.3) fL RDW Coeff of Dewayne (11.5-14.5) % Plt Count (130-400) K/uL MPV (7.4-10.4) fL Immature Gran % (Auto) % Neut % (Auto) % Lymph % (Auto) % [place]cock % (Auto) % Eos % (Auto) % Baso % (Auto) % Immature Gran # (Auto) (0.00-0.02) K/uL Neut # (Auto) (1.4-6.5) K/uL Lymph # (Auto) (1.2-3.4) K/uL Glasscock # (Auto) (0.11-0.59) K/uL Eos # (Auto) (0-0.5) K/uL Baso # (Auto) (0-0.2) K/uL PT (9.0-12.0) Seconds INR (0.9-1.1) Sodium (136-145) mmol/L Potassium (3.5-5.1) mmol/L Chloride (98-107) mmol/L Carbon Dioxide (21-32) mmol/L Anion Gap (3-11) BUN (7-18) mg/dl Creatinine (0.6-1.2) mg/dl Est Cr Clr Drug Dosing Est GFR ( Amer) Est GFR (Non-Af Amer) BUN/Creatinine Ratio (10-20) Glucose (70-99) mg/dl POC Glucose (70-99) mg/dl Estimat Average Glucose mg/dl Hemoglobin A1c (4.5-5.6) % Lactate (0.4-2.0) mmol/L Calcium (8.5-10.1) mg/dl Phosphorus (2.5-4.9) mg/dl Magnesium (1.8-2.4) mg/dl Total Bilirubin (0.2-1) mg/dl AST (15-37) U/L ALT (12-78) U/L Alkaline Phosphatase (45-117) U/L Troponin I (0-0.045) ng/ml Total Protein (6.4-8.2) gm/dl Albumin (3.4-5.0) gm/dl Globulin (2.5-4.0) gm/dl Albumin/Globulin Ratio (0.9-2) Procalcitonin (0-0.5) ng/ml Urine Color Dark Yellow Urine Appearance Cloudy A (Clear) Urine pH 8.5 H (4.5-7.5) Ur Specific [place] 1.022 (1.000-1.030) Urine Protein 1+ H (Negative) Urine Glucose (UA) Negative (Negative) Urine Ketones Negative (Negative) Urine Blood Negative (Negative) Urine Nitrite Positive A (Negative) Urine Bilirubin Negative (Negative) Urine Urobilinogen Negative (Negative) Ur Leukocyte Esterase 2+ H (Negative) Urine WBC (Auto) >30 H (0-5) /hpf Urine RBC (Auto) 0-4 (0-4) /hpf U Hyaline Cast (Auto) 1-5 (0-5) /lpf U Epithel Cells (Auto) 5-10 H (0-5) /lpf Urine Bacteria (Auto) 4+ H (Negative) Granular Casts 1-5 H (0) /lpf Urine Mucus Present A (None Prsent) Urine Opiates Screen Neg (Neg) Ur Methadone, Qual Neg (Neg) Urine Barbiturates Pos H (Neg) Ur Phencyclidine (PCP) Neg (Neg) U Amphetamin/Meth Scrn Pos H (Neg) MDMA (Ecstasy) Screen Neg (Neg) U Benzodiazepines Scrn Neg (Neg) Ur Cocaine Metabolite Neg (Neg) U Marijuana (THC) Screen Neg (Neg) Influenza Type A (PCR) Neg for Influ A (Neg) Influenza Type B (PCR) Neg for Influ B (Neg) 04/20/20 Range/Units 01:34 WBC (4.8-10.8) K/uL RBC (4.2-5.4) M/uL Hgb (12.0-16.0) g/dL Hct (37-47) % MCV (80-100) fL MCH (25-34) pg MCHC (32-36) g/dL RDW Std Deviation (36.4-46.3) fL RDW Coeff of Dewayne (11.5-14.5) % Plt Count (130-400) K/uL MPV (7.4-10.4) fL Immature Gran % (Auto) % Neut % (Auto) % Lymph % (Auto) % [place] % (Auto) % Eos % (Auto) % Baso % (Auto) % Immature Gran # (Auto) (0.00-0.02) K/uL Neut # (Auto) (1.4-6.5) K/uL Lymph # (Auto) (1.2-3.4) K/uL [place] # (Auto) (0.11-0.59) K/uL Eos # (Auto) (0-0.5) K/uL Baso # (Auto) (0-0.2) K/uL PT (9.0-12.0) Seconds INR (0.9-1.1) Sodium (136-145) mmol/L Potassium (3.5-5.1) mmol/L Chloride (98-107) mmol/L Carbon Dioxide (21-32) mmol/L Anion Gap (3-11) BUN (7-18) mg/dl Creatinine (0.6-1.2) mg/dl Est Cr Clr Drug Dosing Est GFR ( Amer) Est GFR (Non-Af Amer) BUN/Creatinine Ratio (10-20) Glucose (70-99) mg/dl POC Glucose (70-99) mg/dl Estimat Average Glucose mg/dl Hemoglobin A1c (4.5-5.6) % Lactate 1.4 (0.4-2.0) mmol/L Calcium (8.5-10.1) mg/dl Phosphorus (2.5-4.9) mg/dl Magnesium (1.8-2.4) mg/dl Total Bilirubin (0.2-1) mg/dl AST (15-37) U/L ALT (12-78) U/L Alkaline Phosphatase (45-117) U/L Troponin I (0-0.045) ng/ml Total Protein (6.4-8.2) gm/dl Albumin (3.4-5.0) gm/dl Globulin (2.5-4.0) gm/dl Albumin/Globulin Ratio (0.9-2) Procalcitonin (0-0.5) ng/ml Urine Color Urine Appearance (Clear) Urine pH (4.5-7.5) Ur Specific [place] (1.000-1.030) Urine Protein (Negative) Urine Glucose (UA) (Negative) Urine Ketones (Negative) Urine Blood (Negative) Urine Nitrite (Negative) Urine Bilirubin (Negative) Urine Urobilinogen (Negative) Ur Leukocyte Esterase (Negative) Urine WBC (Auto) (0-5) /hpf Urine RBC (Auto) (0-4) /hpf U Hyaline Cast (Auto) (0-5) /lpf U Epithel Cells (Auto) (0-5) /lpf Urine Bacteria (Auto) (Negative) Granular Casts (0) /lpf Urine Mucus (None Prsent) Urine Opiates Screen (Neg) Ur Methadone, Qual (Neg) Urine Barbiturates (Neg) Ur Phencyclidine (PCP) (Neg) U Amphetamin/Meth Scrn (Neg) MDMA (Ecstasy) Screen (Neg) U Benzodiazepines Scrn (Neg) Ur Cocaine Metabolite (Neg) U Marijuana (THC) Screen (Neg) Influenza Type A (PCR) (Neg) Influenza Type B (PCR) (Neg) Imaging Data My Impression: chest: A single view chest xray performed and reviewed by me and negative for CM, wide mediastinum, effusion, focal consolidation. KUB: A single view abdominal xray performed and reviewed by me and negative for SBO or air/fluid levels pelvis: A single view pelvis xray performed and was negative for acute fx/dislocation, hardware at left femur noted Radiologist's Impression: CT head: Comparison: CT head 04/02/2020 Impression: No acute intracranial finding or significant interval change. No acute intracranial hemorrhage. No evidence of intracranial mass, extra-axial fluid collection, or acute territorial infarct. White matter hypodensities, which are nonspecific but most likely related to chronic small vessel ischemic changes. Visualized paranasal sinuses and mastoid air cells are clear. Radiologist: Khurram Sanchez MD ECG Data Attestation: I personally reviewed and interpreted this ECG as follows: Indication: + altered mental status Rate (beats per minute): 99 Rhythm: + normal sinus ECG Intervals/blocks: + Normal QRS and + Prolonged QT ECG [place]: + Normal ECG ST segments: + Nonspecific ST abnormalities Blood Pressure Blood Pressure Findings: Elevated blood pressure MDM Narrative This is a 60 yo female presenting from home for fever and possible altered mental status. Pt with recent surgery, inpatient rehab, with rehab course complicated by C.diff. Pt develop and fever this evening and seemed less responsive per EMS. A sepsis evaluation was started with labs, IVF, imaging. IVF to achieve 30 ml/kg, lactate and procal reassuring. VS stable on tele with a NSR. With additional prompting after EMS reported pt was SOBOBA and didn't have her hearing aids in, pt able to answer questions and a simple review of systems. Pt c/o abdominal discomfort, weakness, and frequent diarrhea. Pt found to have a UTI and likely dehydration from frequent diarrhea. Temp improved with tylenol. Cultures sent. Pt started on antibiotics. Likely UTI from difficulty with hygiene and frequent diarrhea. Pt remained hemodynamically stable throughout in the ER. updated on need for additional inpatient treatment. Electrolyte repletion started in the ER. Ammonia added as a precaution. Pt does seem oriented with additional questioning, just slow to answer. I do not suspect cva, ICH, meningitis/encephalitis. I do not suspect obstructive uropathy. Case discussed with hospitalist. An order was placed for continuous cardiac monitoring. The monitor shows a rate of 96 with normal sinus rhythm. Impression & Plan Sepsis, Fever, Acute UTI (urinary tract infection), Hypomagnesemia, Hypokalemia Discharge Plan Visit Data *Final* Discharge Date/Time: 04/20/20 05:40 Chief Complaint: Unresponsive Stated Complaint: Altered level of responsiveness ED Provider: Jaymie Sr Discharge Problem: Sepsis, Fever, Acute UTI (urinary tract infection), Hypomagnesemia, Hypokalemia Patient Disposition: Admitted As Inpatient Discharge Instructions Interventions: ED Discharge Assessment Last Done: 04/20/20 05:40 Discharge Problem: Sepsis Qualifiers: Sepsis type: sepsis due to unspecified organism Sepsis acute organ dysfunction status: without acute organ dysfunction Qualified Code(s): A41.9 - Sepsis, unspecified organism Fever Qualifiers: Fever type: due to other condition Qualified Code(s): R50.81 - Fever presenting with conditions classified elsewhere
[2020-04-20] MEDS ORDERED: LEVOFLOXACIN/D5W 750 MG/150 ML BAG IV SCH (02:30)
[2020-04-20 02:32] LABS: Influenza A virus by PCR Neg for Influ A (Neg); Influenza B virus by PCR Neg for Influ B (Neg)
[2020-04-20 02:34] LABS: Phosphorus 2.6 mg/dl (2.5-4.9)
[2020-04-20] MEDS ORDERED: metroNIDAZOLE 500 MG/100 ML BAG IV STA (03:10)
[2020-04-20] MEDS ORDERED: NALOXONE HCL 0.4 MG/1 ML VIAL/CARP IV STA (03:23)
[2020-04-20] MEDS ORDERED: CEFEPIME 2,000 MG/20 ML VIAL IV STA (03:24)
--- NOTE | 2020-04-20 03:45 | History & Physical Report ---
Date of Service April 20, 2020 Assessment & Plan (1) Severe sepsis: SIRS plus encephalopathy Possible sources : Partially treated recurrent C. difficile colitis Complicated UTI (hx quinolone resistant enteric organism) LLE cellulitis rule out DVT hypertension, stable mood disorder/schizophrenia as per records cirrhosis as per records, no overt decompensation past tobacco abuse chronic thrombocytopenia secondary to chronic liver disease recent left hip fracture status post surgery Hyperglycemia rule out DM Hypokalemia secondary to diarrhea Functional disability Medical telemetry Cultures Cefepime for complicated UTI Oral vancomycin and IV Flagyl for partially treated recurrent C. difficile CT abdomen pelvis RE abdominal pain, hx colitis Doxycycline for LLE cellulitis LE venous Dopplers rule out DVT Further management pending imaging results. Check hemoglobin A1c Replace potassium PT OT eval DVT prophylaxis with SCDs RE thrombocytopenia Full code Patient's requesting updates from providers. Mr. Sidney Dorantes, contact #[phone]. Text document was generated using [employer] voice recognition software. It may contain grammatical or spelling errors. Kindly contact undersigned for clarification of any documentation item in question. History of Present Illness Chief Complaint: Altered mental status Primary Care Provider: Dr. Borrego History obtained from patient, family, and records. Limited history from patient secondary to lethargic state and hearing impairment. Medical history significant for hypertension, recurrent C. difficile, mood disorder, schizophrenia as per records, cirrhosis as per records, past tobacco abuse as per records, chronic thrombocytopenia, recent left hip fracture status post surgery, history of drug abuse as per records. Recent confinement 3 weeks ago for recurrent C. difficile. Patient discharged to rehab facility on vancomycin and Flagyl course. As per , patient had to be discharged from [facility] rehab facility 4 days ago because of financial constraints. Patient discharged on oral vancomycin once daily prescription (unclear duration of therapy) as per discharge note. Continuous nonbloody diarrhea at home as per patient . 2 days ago patient noted increasing abdominal distention and achy discomfort. Some nausea, no emesis. At about the same time, left lower leg noted to be swollen and warm. Yesterday patient noted to have decreased responsiveness. Fever chills noted at home. At the ER, patient given Levaquin for sepsis. 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 Allergies Allergy/AdvReac Type Severity Reaction Status Date / Time Penicillins Allergy Severe ANAPHYLAXIS Verified 04/02/20 21:12 hydrocodone AdvReac Intermediate Nausea Unverified 04/02/20 21:12 [From Lorcet (hydrocodone)] Home Medications Home Medications Medication Instructions Recorded Confirmed Type loratadine 10 mg PO DAILY PRN 02/24/20 04/20/20 History olopatadine 1 drp OPB BID 02/24/20 04/20/20 History acetaminophen 650 mg PO Q6H PRN 04/20/20 04/20/20 History acetaminophen-codeine 1 - 2 tab PO Q4H PRN 04/20/20 04/20/20 History [Tylenol-Codeine #3] albuterol sulfate 2.5 mg INHALATION DIRECTED PRN 04/20/20 04/20/20 History albuterol sulfate [ProAir HFA] 2 puff INHALATION QID 04/20/20 04/20/20 History ascorbic acid (vitamin C) [Vitamin 500 mg PO DAILY 04/20/20 04/20/20 History C] calcium carbonate-vitamin D3 1 cap PO BID 04/20/20 04/20/20 History [Calcium 600 + D(3)] dextroamphetamine-amphetamine 20 mg PO BID 04/20/20 04/20/20 History [Adderall] fexofenadine 180 mg PO DAILY 04/20/20 04/20/20 History fluticasone propionate 2 spray INTRANASAL DAILY 04/20/20 04/20/20 History hydrochlorothiazide 25 mg PO DAILY 04/20/20 04/20/20 History lisinopril 10 mg PO DAILY 04/20/20 04/20/20 History metoprolol succinate 50 mg PO BID 04/20/20 04/20/20 History cuekjelt-dxv-HM-lycopen-lutein 1 tab PO DAILY 04/20/20 04/20/20 History [Centrum Silver] ondansetron HCl [Zofran] 4 mg PO Q6H PRN 04/20/20 04/20/20 History Past Med/Surg History Social History Preferred Language: Malian Communication Ability: Impaired Collar Feller Required: No Beliefs That Will Affect Care: None marital status: Current Living Situation: Spouse Other Information That Helps Us Care for You: No Feels Safe at Home: Yes Safety Concerns: Feels Safe At This Time Smoking Status: Unknown if ever smoked Hx Alcohol Use: No Hx Substance Use: No Review of Systems Review of Systems: Could not be reliably obtained Physical Exam Physical Exam: GENERAL: Lethargic, uncomfortable, shivering, hard of hearing, no respiratory distress SKIN: Normal color, warm HEENT: [place] palpebral conjunctivae, no ptosis, dry buccal mucosa NECK : Supple, no tenderness CHEST : Decreased breath sounds , no tenderness HEART : RRR, no obvious murmurs ABDOMEN: distention, tenderness more on the left EXTREMITIES : Venous stasis, warm LLE swelling with some tenderness appreciated , no other conspicuous deformities noted NEUROLOGIC : Lethargic , no facial asymmetry, no other gross focality Results & Data Results & Data ([facility]) Vital Signs (Past 12 Hours) Vital Signs Temp Pulse Resp BP Pulse Ox 04/20/20 03:00 38.9 C H 90 20 157/68 H 95 04/20/20 02:05 88 18 158/67 H 94 04/20/20 02:04 86 158/67 H 95 04/20/20 01:30 92 H 167/76 H 95 04/20/20 01:00 94 H 143/75 H 94 04/20/20 00:40 39.2 C H 91 H 24 139/73 95 Laboratory Results Laboratory Results WBC 15.02 K/uL (4.8-10.8) H 04/20/20 00:30 RBC 4.10 M/uL (4.2-5.4) L 04/20/20 00:30 Hgb 12.3 g/dL (12.0-16.0) 04/20/20 00:30 Hct 38.0 % (37-47) 04/20/20 00:30 MCV 92.7 fL (80-100) 04/20/20 00:30 MCH 30.0 pg (25-34) 04/20/20 00:30 MCHC 32.4 g/dL (32-36) 04/20/20 00:30 RDW Std Deviation 62.8 fL (36.4-46.3) H 04/20/20 00:30 RDW Coeff of Dewayne 18.3 % (11.5-14.5) H 04/20/20 00:30 Plt Count 146 K/uL (130-400) 04/20/20 00:30 MPV 11.7 fL (7.4-10.4) H 04/20/20 00:30 Immature Gran % (Auto) 0.3 % 04/20/20 00:30 Neut % (Auto) 90.0 % 04/20/20 00:30 Lymph % (Auto) 4.4 % 04/20/20 00:30 [place] % (Auto) 5.1 % 04/20/20 00:30 Eos % (Auto) 0.0 % 04/20/20 00:30 Baso % (Auto) 0.2 % 04/20/20 00:30 Immature Gran # (Auto) 0.04 K/uL (0.00-0.02) H 04/20/20 00:30 Neut # (Auto) 13.53 K/uL (1.4-6.5) H 04/20/20 00:30 Lymph # (Auto) 0.66 K/uL (1.2-3.4) L 04/20/20 00:30 [place] # (Auto) 0.76 K/uL (0.11-0.59) H 04/20/20 00:30 Eos # (Auto) 0.00 K/uL (0-0.5) 04/20/20 00:30 Baso # (Auto) 0.03 K/uL (0-0.2) 04/20/20 00:30 PT 14.6 Seconds (9.0-12.0) H 04/20/20 00:30 INR 1.4 (0.9-1.1) H 04/20/20 00:30 Sodium 137 mmol/L (136-145) 04/20/20 00:30 Potassium 3.1 mmol/L (3.5-5.1) L 04/20/20 00:30 Chloride 106 mmol/L (98-107) 04/20/20 00:30 Carbon Dioxide 21 mmol/L (21-32) 04/20/20 00:30 Anion Gap 10.0 (3-11) 04/20/20 00:30 BUN 9 mg/dl (7-18) 04/20/20 00:30 Creatinine 0.56 mg/dl (0.6-1.2) L 04/20/20 00:30 Est Cr Clr Drug Dosing Not Reportable 04/20/20 00:30 Est GFR ( Amer) 117.5 04/20/20 00:30 Est GFR (Non-Af Amer) 101.3 04/20/20 00:30 BUN/Creatinine Ratio 15.5 (10-20) 04/20/20 00:30 Glucose 120 mg/dl (70-99) H 04/20/20 00:30 POC Glucose 126 mg/dl (70-99) H 04/20/20 00:54 Lactate 1.4 mmol/L (0.4-2.0) 04/20/20 01:34 Calcium 8.0 mg/dl (8.5-10.1) L 04/20/20 00:30 Phosphorus 2.6 mg/dl (2.5-4.9) 04/20/20 00:30 Magnesium 1.7 mg/dl (1.8-2.4) L 04/20/20 00:30 Total Bilirubin 1.2 mg/dl (0.2-1) H 04/20/20 00:30 AST 37 U/L (15-37) 04/20/20 00:30 ALT 38 U/L (12-78) 04/20/20 00:30 Alkaline Phosphatase 120 U/L (45-117) H 04/20/20 00:30 Troponin I < 0.015 ng/ml (0-0.045) 04/20/20 00:30 Total Protein 6.4 gm/dl (6.4-8.2) 04/20/20 00:30 Albumin 2.6 gm/dl (3.4-5.0) L 04/20/20 00:30 Globulin 3.8 gm/dl (2.5-4.0) 04/20/20 00:30 Albumin/Globulin Ratio 0.7 (0.9-2) L 04/20/20 00:30 Procalcitonin 0.19 ng/ml (0-0.5) 04/20/20 00:30 Urine Color Dark Yellow 04/20/20 01:00 Urine Appearance Cloudy (Clear) A 04/20/20 01:00 Urine pH 8.5 (4.5-7.5) H 04/20/20 01:00 Ur Specific [place] 1.022 (1.000-1.030) 04/20/20 01:00 Urine Protein 1+ (Negative) H 04/20/20 01:00 Urine Glucose (UA) Negative (Negative) 04/20/20 01:00 Urine Ketones Negative (Negative) 04/20/20 01:00 Urine Blood Negative (Negative) 04/20/20 01:00 Urine Nitrite Positive (Negative) A 04/20/20 01:00 Urine Bilirubin Negative (Negative) 04/20/20 01:00 Urine Urobilinogen Negative (Negative) 04/20/20 01:00 Ur Leukocyte Esterase 2+ (Negative) H 04/20/20 01:00 Urine WBC (Auto) >30 /hpf (0-5) H 04/20/20 01:00 Urine RBC (Auto) 0-4 /hpf (0-4) 04/20/20 01:00 U Hyaline Cast (Auto) 1-5 /lpf (0-5) 04/20/20 01:00 U Epithel Cells (Auto) 5-10 /lpf (0-5) H 04/20/20 01:00 Urine Bacteria (Auto) 4+ (Negative) H 04/20/20 01:00 Granular Casts 1-5 /lpf (0) H 04/20/20 01:00 Urine Mucus Present (None Prsent) A 04/20/20 01:00 Influenza Type A (PCR) Neg for Influ A (Neg) 04/20/20 01:12 Influenza Type B (PCR) Neg for Influ B (Neg) 04/20/20 01:[address] head initial read: No acute intracranial finding or significant interval change. No acute intracranial hemorrhage. White matter hypodensities likely related to chronic small vessel ischemic changes. CXR as per my interpretation interstitial congestion Pelvis x-ray as per my interpretation left hip arthroplasty with fixation.
[2020-04-20 03:51] LABS: Amphetamines+Metham, Urine Pos (Neg); Barbiturates, Urine Pos (Neg); Benzodiazepine, Urine Neg (Neg); Cocaine, Urine Neg (Neg); MDMA (Ecstacy), Urine Neg (Neg); Methadone, Urine Neg (Neg); Opiate, Urine Neg (Neg); Phencyclidine, Urine Neg (Neg)
[2020-04-20] MEDS ORDERED: IOVERSOL 100ml IV PRN (05:58)
[2020-04-20] MEDS ORDERED: POTASSIUM CHLORIDE 40 MEQ in SODIUM CHLORIDE 0.9% 1000ML 1,000 ML IV SCH (06:25)
[2020-04-20] MEDS ORDERED: DOXYCYCLINE HYCLATE 100 MG in DEXTROSE 5% 100 ML IV STA (06:25)
[2020-04-20] MEDS ORDERED: PROMETHAZINE HCL 12.5 MG in SODIUM CHLORIDE 0.9% 50 ML IV PRN (06:25)
[2020-04-20] MEDS ORDERED: INFLUENZA VIRUS QUAD VACCINE 0.5 ML SYR IM ONE (06:54)
[2020-04-20] MEDS ORDERED: PNEUMOCOCCAL ADMINISTRATION CHARGE ONE (06:54)
[2020-04-20] MEDS ORDERED: PNEUMOCOCCAL POLYSACCHARIDES 25 MCG/0.5 ML VIAL/SYR IM ONE (06:54)
[2020-04-20] MEDS ORDERED: INFLUENZA ADMINISTRATION CHARGE ONE (06:54)
--- NOTE | 2020-04-20 07:19 | CT Scan Report ---
CT OF THE ABDOMEN AND PELVIS WITH CONTRAST CLINICAL HISTORY: Abdominal pain. COMPARISON STUDY: CT of the abdomen and pelvis March 18, 2020. KUB April 20, 2020. TECHNIQUE: Following IV administration of Optiray-320, axial images of the abdomen and pelvis were ob tained from the lung bases to the proximal femurs. Images were reviewed in the axial, sagittal, and c oronal planes. IV contrast was administered without complication. Automated exposure control was uti lized for the study. A dose lowering technique was utilized adhering to the principles of ALARA. CT DOSE: 564.90 mGy.cm FINDINGS: Suspected paraseptal emphysema within the lower lungs is unchanged. No pneumatosis, free ai r or portal venous gas is present. The liver is cirrhotic. Sensitivity for detection of hypervascular lesions is diminished on this venous phase exam. Splenomegaly, extensive varices formation and a sma ll amount of ascites are similar to prior exam of March 18, 2020. There is no biliary ductal dilatati on. The adrenal glands, kidneys and pancreas are unremarkable. There is no hydronephrosis. Mild gallb ladder distention is noted. Marked wall thickening of the entire colon and rectum is similar to prior exam. There is no abscess. Images of the pelvis are degraded by streak artifact from a left hip arth roplasty. There is a nondisplaced left inferior pubic ramus fracture. Bautista balloon is present within the bladder. IMPRESSION: 1. Findings consistent with severe proctocolitis, either unchanged or slightly increased since CT of March 18, 2020. This favors an infectious process such as C. difficile colitis. 2. Cirrhosis with manifestations of portal hypertension including extensive varices formation, spleno megaly and a small amount of ascites. 3. Mild gallbladder distention, a nonspecific finding. ACT 112: Negative or not required by law. Electronically signed by: Brian Hill M.D. 04/20/2020 7:18 AM
[2020-04-20] MEDS: POTASSIUM CHLORIDE / WTR 10 MEQ/100 ML PLCT IV SCH ×3 (07:39→10:36)
--- NOTE | 2020-04-20 08:44 | CT Scan Report ---
CT OF THE HEAD WITHOUT CONTRAST CLINICAL HISTORY: Altered mental status. COMPARISON STUDY: Head CT April 02, 2020. CT DOSE: 691.05 mGy.cm TECHNIQUE: Helical axial images of the head were obtained without IV contrast. Automated exposure con trol was utilized for the study. A dose lowering technique was utilized adhering to the principles o f ALARA. FINDINGS: No acute intracranial hemorrhage, midline shift or mass effect is present. White matter hyp odensities are unchanged and suggest small vessel disease. The ventricular system is unremarkable. Th e basilar cisterns are patent. No extra-axial collections are present. There are no findings to sugge st acute dural sinus thrombosis or acute territorial infarct. No significant calvarial abnormalities are present. Visualized portions of the sinuses and mastoid air cells are clear. IMPRESSION: No acute intracranial findings. No change in appearance of the brain. ACT 112: Negative or not required by law. Electronically signed by: Brian Hill M.D. 04/20/2020 8:43 AM
--- NOTE | 2020-04-20 08:49 | XRay Report ---
XR chest 1V portable CLINICAL HISTORY: SEPSIS COMPARISON STUDY: Chest radiograph April 02, 2020. Chest CT March 18, 2020. FINDINGS: Incidental note is made of multiple old right rib fractures. Cardiomegaly is unchanged. Med iastinal contours are stable. Interstitial thickening is unchanged. No consolidation is noted. The ap pearance of the chest is unchanged. No pneumothorax or pleural effusion is noted. IMPRESSION: No acute cardiopulmonary findings. No change in appearance of the chest with stable inte rstitial thickening. ACT 112: Negative or not required by law. Electronically signed by: Brian Hill M.D. 04/20/2020 8:48 AM
--- NOTE | 2020-04-20 08:50 | XRay Report ---
KUB CLINICAL HISTORY: Abdominal distention COMPARISON STUDY: CT of the abdomen and pelvis March 18, 2020. KUB March 21, 2020. FINDINGS: Bowel gas pattern is normal. There is evidence for colonic wall thickening which is better depicted by CT. Left hip arthroplasty is noted. There is extensive vascular calcification. IMPRESSION: 1. No evidence for a bowel obstruction. 2. Evidence for a colonic wall thickening, better depicted on CT. ACT 112: Negative or not required by law. Electronically signed by: Brian Hill M.D. 04/20/2020 8:49 AM
--- NOTE | 2020-04-20 08:53 | XRay Report ---
XR pelvis 1-2V routine CLINICAL HISTORY: contusion right hip COMPARISON: CT of the abdomen and pelvis March 18, 2020. Pelvis radiograph February 06, 2020. Left femur radiographs April 07, 2020. FINDINGS: Sacroiliac joints and symphysis pubis are intact. There is no acute fracture within the pe lvis or hips. Left hip arthroplasty is noted. Left femoral internal fixation is noted. Postoperative appearance is unchanged. Hardware is intact. IMPRESSION: 1. No acute fracture within the pelvis or hips. 2. Stable postoperative findings following left femoral internal fixation. ACT 112: Negative or not required by law. Electronically signed by: Brian Hill M.D. 04/20/2020 8:51 AM
[2020-04-20] MEDS ORDERED: NON-FORMULARY MEDICATION (Olopatadine 1 DROPS) OPB SCH (09:00)
[2020-04-20] MEDS ORDERED: NON-FORMULARY MEDICATION (Dextroamphetamine-Amphetamine [Adderall] 20 MG) PO SCH (09:00)
[2020-04-20] MEDS ORDERED: CEFEPIME CONSULT ACTIVE PRN (09:00)
[2020-04-20] MEDS: FEXOFENADINE HCL 180 MG TAB PO SCH (09:07)
[2020-04-20] MEDS: CEROVITE ADV FORMULA TAB PO SCH (09:07)
[2020-04-20] MEDS: FLUTICASONE PROPIONATE NA SPR 16 GM BTL SCH (09:07)
[2020-04-20] MEDS: METOPROLOL SUCC 50MG EXT REL TAB PO SCH ×2 (09:08→21:34)
--- NOTE | 2020-04-20 10:24 | Gastrointestinal Consultation ---
Date of Consultation April 20, 2020 Assessment & Plan (1) C. difficile colitis: Patient presenting with altered mental status, leukocytosis and diarrhea. Given the history of recurrent C. difficile infection I wonder if she has recurrence. I have taken the bradycardia of ordering C. difficile PCR as this was not done yesterday evening. Agree that the patient should be placed on to combination therapy with both oral Vancomycin and intravenous metronidazole. Recommendations Continue oral vancomycin 125 4 times daily for 14 days, the 125 mg daily thereafter Continue metronidazole for 7 days Daily KUB Avoid narcotics Consider an ID Consultation History of Present Illness Reason for Consultation: Diarrhea Requesting Physician: Marcela Attending Physician: Prem Medrano MD History of Present Illness The patient is a 60-year-old female who was brought in for altered mental status and diarrhea. The patient is unable to provide any historical information this morning while I was seeing her. The patient was recently admitted to the hospital for several orthopedic problems and found to have C. difficile infection. He was placed on to a prolonged vancomycin taper by my partner Dr. Solorio and infectious disease service. It appears that the patient has been empirically started on metronidazole in addition to vancomycin although no C. difficile PCR was ordered. Other coexisting history includes a potential for cirrhosis of the liver although no formal work-up has been performed yet. Allergies Allergy/AdvReac Type Severity Reaction Status Date / Time Penicillins Allergy Severe ANAPHYLAXIS Verified 04/02/20 21:12 hydrocodone AdvReac Intermediate Nausea Unverified 04/02/20 21:12 [From Lorcet (hydrocodone)] Home Medications Home Medications Medication Instructions Recorded Confirmed Type loratadine 10 mg PO DAILY PRN 02/24/20 04/20/20 History olopatadine 1 drp OPB BID 02/24/20 04/20/20 History acetaminophen 650 mg PO Q6H PRN 04/20/20 04/20/20 History acetaminophen-codeine 1 - 2 tab PO Q4H PRN 04/20/20 04/20/20 History [Tylenol-Codeine #3] albuterol sulfate 2.5 mg INHALATION DIRECTED PRN 04/20/20 04/20/20 History albuterol sulfate [ProAir HFA] 2 puff INHALATION QID 04/20/20 04/20/20 History ascorbic acid (vitamin C) [Vitamin 500 mg PO DAILY 04/20/20 04/20/20 History C] calcium carbonate-vitamin D3 1 cap PO BID 04/20/20 04/20/20 History [Calcium 600 + D(3)] dextroamphetamine-amphetamine 20 mg PO BID 04/20/20 04/20/20 History [Adderall] fexofenadine 180 mg PO DAILY 04/20/20 04/20/20 History fluticasone propionate 2 spray INTRANASAL DAILY 04/20/20 04/20/20 History hydrochlorothiazide 25 mg PO DAILY 04/20/20 04/20/20 History lisinopril 10 mg PO DAILY 04/20/20 04/20/20 History metoprolol succinate 50 mg PO BID 04/20/20 04/20/20 History asgcrhco-qjm-UZ-lycopen-lutein 1 tab PO DAILY 04/20/20 04/20/20 History [Centrum Silver] ondansetron HCl [Zofran] 4 mg PO Q6H PRN 04/20/20 04/20/20 History Patient History Social History Preferred Language: [place] Communication Ability: Impaired Pricing Supervisor Required: No Beliefs That Will Affect Care: None marital status: Current Living Situation: Spouse Other Information That Helps Us Care for You: No Feels Safe at Home: Yes Safety Concerns: Feels Safe At This Time Smoking Status: Unknown if ever smoked Hx Alcohol Use: No Hx Substance Use: No Review of Systems Constitutional: no sweats Eyes: no diplopia Ear, Nose, Mouth, Throat: no ear trauma Respiratory: no change in sputum Cardiovascular: no chest pain with activity Gastrointestinal: + fecal incontinence; no constipation Hematologic / Lymphatic: no coagulopathy Physical Exam Constitutional: + ill appearing and + thin Eyes: PERRL, conjunctivae normal, anicteric sclerae Neck: trachea midline, no thyromegaly Respiratory: normal respiratory effort; no respiratory distress Cardiovascular: Rate/Rhythm: regular rhythm Gastrointestinal (Abdomen): Percussion/Palpation: + abdomen tender and abdomen soft; no guarding Results & Data ([facility]) Vital Signs (Past 12 Hours) Vital Signs Temp Pulse Pulse Pulse Resp BP BP 04/20/20 07:58 36.7 C 96 H 20 152/81 H 04/20/20 06:34 37.1 C 86 24 04/20/20 05:45 38.7 C H 04/20/20 05:00 98 H 20 127/64 04/20/20 04:30 100 H 20 155/70 H 04/20/20 04:00 96 H 24 155/72 H 04/20/20 03:30 95 H 24 166/84 H 04/20/20 03:00 38.9 C H 90 20 157/68 H 04/20/20 02:05 88 18 158/67 H 04/20/20 02:04 86 158/67 H 04/20/20 01:30 92 H 167/76 H 04/20/20 01:00 94 H 143/75 H 04/20/20 00:40 39.2 C H 91 H 24 139/73 BP Pulse Ox 04/20/20 07:58 95 04/20/20 06:34 159/72 H 94 04/20/20 05:45 04/20/20 05:00 94 04/20/20 04:30 94 04/20/20 04:00 93 04/20/20 03:30 95 04/20/20 03:00 95 04/20/20 02:05 94 04/20/20 02:04 95 04/20/20 01:30 95 04/20/20 01:00 94 04/20/20 00:40 95 Laboratory Results Laboratory Results - last 24 hr 04/20/20 04/20/20 04/20/20 00:30 00:30 00:30 WBC 15.02 H RBC 4.10 L Hgb 12.3 Hct 38.0 MCV 92.7 MCH 30.0 MCHC 32.4 RDW Std Deviation 62.8 H RDW Coeff of Dewayne 18.3 H Plt Count 146 MPV 11.7 H Immature Gran % (Auto) 0.3 Neut % (Auto) 90.0 Lymph % (Auto) 4.4 [place] % (Auto) 5.1 Eos % (Auto) 0.0 Baso % (Auto) 0.2 Immature Gran # (Auto) 0.04 H Neut # (Auto) 13.53 H Lymph # (Auto) 0.66 L [place] # (Auto) 0.76 H Eos # (Auto) 0.00 Baso # (Auto) 0.03 PT 14.6 H INR 1.4 H Sodium Potassium Chloride Carbon Dioxide Anion Gap BUN Creatinine Est Cr Clr Drug Dosing Est GFR ( Amer) Est GFR (Non-Af Amer) BUN/Creatinine Ratio Glucose POC Glucose Estimat Average Glucose Hemoglobin A1c Lactate Calcium Phosphorus Magnesium Magnesium (Sulf Ther) Total Bilirubin AST ALT Alkaline Phosphatase Ammonia Troponin I Total Protein Albumin Globulin Albumin/Globulin Ratio Procalcitonin 0.19 Urine Color Urine Appearance Urine pH Ur Specific [place] Urine Protein Urine Glucose (UA) Urine Ketones Urine Blood Urine Nitrite Urine Bilirubin Urine Urobilinogen Ur Leukocyte Esterase Urine WBC (Auto) Urine RBC (Auto) U Hyaline Cast (Auto) U Epithel Cells (Auto) Urine Bacteria (Auto) Granular Casts Urine Mucus Urine Butalbital Urine Opiates Screen Ur Methadone, Qual Urine Barbiturates Ur Phencyclidine (PCP) U Amphetamines Confirm U Amphetamin/Meth Scrn U Methamphetamin Confrm MDMA (Ecstasy) Screen Urine Amobarbital Urine Pentobarbital Urine Phenobarbital Urine Secobarbital U Benzodiazepines Scrn Ur Cocaine Metabolite U Marijuana (THC) Screen Drug Screen Comment Influenza Type A (PCR) Influenza Type B (PCR) 04/20/20 04/20/20 04/20/20 00:30 00:30 00:54 WBC RBC Hgb Hct MCV MCH MCHC RDW Std Deviation RDW Coeff of Dewayne Plt Count MPV Immature Gran % (Auto) Neut % (Auto) Lymph % (Auto) [place] % (Auto) Eos % (Auto) Baso % (Auto) Immature Gran # (Auto) Neut # (Auto) Lymph # (Auto) [place] # (Auto) Eos # (Auto) Baso # (Auto) PT INR Sodium 137 Potassium 3.1 L Chloride 106 Carbon Dioxide 21 Anion Gap 10.0 BUN 9 Creatinine 0.56 L Est Cr Clr Drug Dosing Not Reportable Est GFR ( Amer) 117.5 Est GFR (Non-Af Amer) 101.3 BUN/Creatinine Ratio 15.5 Glucose 120 H POC Glucose 126 H Estimat Average Glucose Pending Hemoglobin A1c Pending Lactate Calcium 8.0 L Phosphorus 2.6 Magnesium 1.7 L Magnesium (Sulf Ther) Total Bilirubin 1.2 H AST 37 ALT 38 Alkaline Phosphatase 120 H Ammonia Troponin I < 0.015 Total Protein 6.4 Albumin 2.6 L Globulin 3.8 Albumin/Globulin Ratio 0.7 L Procalcitonin Urine Color Urine Appearance Urine pH Ur Specific [place] Urine Protein Urine Glucose (UA) Urine Ketones Urine Blood Urine Nitrite Urine Bilirubin Urine Urobilinogen Ur Leukocyte Esterase Urine WBC (Auto) Urine RBC (Auto) U Hyaline Cast (Auto) U Epithel Cells (Auto) Urine Bacteria (Auto) Granular Casts Urine Mucus Urine Butalbital Urine Opiates Screen Ur Methadone, Qual Urine Barbiturates Ur Phencyclidine (PCP) U Amphetamines Confirm U Amphetamin/Meth Scrn U Methamphetamin Confrm MDMA (Ecstasy) Screen Urine Amobarbital Urine Pentobarbital Urine Phenobarbital Urine Secobarbital U Benzodiazepines Scrn Ur Cocaine Metabolite U Marijuana (THC) Screen Drug Screen Comment Influenza Type A (PCR) Influenza Type B (PCR) 04/20/20 04/20/20 04/20/20 01:00 01:00 01:00 WBC RBC Hgb Hct MCV MCH MCHC RDW Std Deviation RDW Coeff of Dewayne Plt Count MPV Immature Gran % (Auto) Neut % (Auto) Lymph % (Auto) [place] % (Auto) Eos % (Auto) Baso % (Auto) Immature Gran # (Auto) Neut # (Auto) Lymph # (Auto) [place] # (Auto) Eos # (Auto) Baso # (Auto) PT INR Sodium Potassium Chloride Carbon Dioxide Anion Gap BUN Creatinine Est Cr Clr Drug Dosing Est GFR ( Amer) Est GFR (Non-Af Amer) BUN/Creatinine Ratio Glucose POC Glucose Estimat Average Glucose Hemoglobin A1c Lactate Calcium Phosphorus Magnesium Magnesium (Sulf Ther) Total Bilirubin AST ALT Alkaline Phosphatase Ammonia Troponin I Total Protein Albumin Globulin Albumin/Globulin Ratio Procalcitonin Urine Color Dark Yellow Urine Appearance Cloudy A Urine pH 8.5 H Ur Specific [place] 1.022 Urine Protein 1+ H Urine Glucose (UA) Negative Urine Ketones Negative Urine Blood Negative Urine Nitrite Positive A Urine Bilirubin Negative Urine Urobilinogen Negative Ur Leukocyte Esterase 2+ H Urine WBC (Auto) >30 H Urine RBC (Auto) 0-4 U Hyaline Cast (Auto) 1-5 U Epithel Cells (Auto) 5-10 H Urine Bacteria (Auto) 4+ H Granular Casts 1-5 H Urine Mucus Present A Urine Butalbital Pending Urine Opiates Screen Neg Ur Methadone, Qual Neg Urine Barbiturates Pos H Ur Phencyclidine (PCP) Neg U Amphetamines Confirm Pending U Amphetamin/Meth Scrn Pos H U Methamphetamin Confrm Pending MDMA (Ecstasy) Screen Neg Urine Amobarbital Pending Urine Pentobarbital Pending Urine Phenobarbital Pending Urine Secobarbital Pending U Benzodiazepines Scrn Neg Ur Cocaine Metabolite Neg U Marijuana (THC) Screen Neg Drug Screen Comment Pending Influenza Type A (PCR) Influenza Type B (PCR) 04/20/20 04/20/20 04/20/20 01:12 01:34 03:51 WBC RBC Hgb Hct MCV MCH MCHC RDW Std Deviation RDW Coeff of Dewayne Plt Count MPV Immature Gran % (Auto) Neut % (Auto) Lymph % (Auto) [place] % (Auto) Eos % (Auto) Baso % (Auto) Immature Gran # (Auto) Neut # (Auto) Lymph # (Auto) [place] # (Auto) Eos # (Auto) Baso # (Auto) PT INR Sodium Potassium Chloride Carbon Dioxide Anion Gap BUN Creatinine Est Cr Clr Drug Dosing Est GFR ( Amer) Est GFR (Non-Af Amer) BUN/Creatinine Ratio Glucose POC Glucose Estimat Average Glucose Hemoglobin A1c Lactate 1.4 Calcium Phosphorus Magnesium Magnesium (Sulf Ther) Total Bilirubin AST ALT Alkaline Phosphatase Ammonia < 10.0 L Troponin I Total Protein Albumin Globulin Albumin/Globulin Ratio Procalcitonin Urine Color Urine Appearance Urine pH Ur Specific [place] Urine Protein Urine Glucose (UA) Urine Ketones Urine Blood Urine Nitrite Urine Bilirubin Urine Urobilinogen Ur Leukocyte Esterase Urine WBC (Auto) Urine RBC (Auto) U Hyaline Cast (Auto) U Epithel Cells (Auto) Urine Bacteria (Auto) Granular Casts Urine Mucus Urine Butalbital Urine Opiates Screen Ur Methadone, Qual Urine Barbiturates Ur Phencyclidine (PCP) U Amphetamines Confirm U Amphetamin/Meth Scrn U Methamphetamin Confrm MDMA (Ecstasy) Screen Urine Amobarbital Urine Pentobarbital Urine Phenobarbital Urine Secobarbital U Benzodiazepines Scrn Ur Cocaine Metabolite U Marijuana (THC) Screen Drug Screen Comment Influenza Type A (PCR) Neg for Influ A Influenza Type B (PCR) Neg for Influ B 04/20/20 07:01 WBC RBC Hgb Hct MCV MCH MCHC RDW Std Deviation RDW Coeff of Dewayne Plt Count MPV Immature Gran % (Auto) Neut % (Auto) Lymph % (Auto) [place] % (Auto) Eos % (Auto) Baso % (Auto) Immature Gran # (Auto) Neut # (Auto) Lymph # (Auto) [place] # (Auto) Eos # (Auto) Baso # (Auto) PT INR Sodium Potassium Chloride Carbon Dioxide Anion Gap BUN Creatinine Est Cr Clr Drug Dosing Est GFR ( Amer) Est GFR (Non-Af Amer) BUN/Creatinine Ratio Glucose POC Glucose Estimat Average Glucose Hemoglobin A1c Lactate Calcium Phosphorus Magnesium Magnesium (Sulf Ther) 2.0 L Total Bilirubin AST ALT Alkaline Phosphatase Ammonia Troponin I Total Protein Albumin Globulin Albumin/Globulin Ratio Procalcitonin Urine Color Urine Appearance Urine pH Ur Specific [place] Urine Protein Urine Glucose (UA) Urine Ketones Urine Blood Urine Nitrite Urine Bilirubin Urine Urobilinogen Ur Leukocyte Esterase Urine WBC (Auto) Urine RBC (Auto) U Hyaline Cast (Auto) U Epithel Cells (Auto) Urine Bacteria (Auto) Granular Casts Urine Mucus Urine Butalbital Urine Opiates Screen Ur Methadone, Qual Urine Barbiturates Ur Phencyclidine (PCP) U Amphetamines Confirm U Amphetamin/Meth Scrn U Methamphetamin Confrm MDMA (Ecstasy) Screen Urine Amobarbital Urine Pentobarbital Urine Phenobarbital Urine Secobarbital U Benzodiazepines Scrn Ur Cocaine Metabolite U Marijuana (THC) Screen Drug Screen Comment Influenza Type A (PCR) Influenza Type B (PCR) Diagnostic Findings CT OF THE ABDOMEN AND PELVIS WITH CONTRAST CLINICAL HISTORY: Abdominal pain. COMPARISON STUDY: CT of the abdomen and pelvis March 18, 2020. KUB April 20, 2020. TECHNIQUE: Following IV administration of [id number]-320, axial images of the abdomen and pelvis were obtained from the lung bases to the proximal femurs. Images were reviewed in the axial, sagittal, and coronal planes. IV contrast was administered without complication. Automated exposure control was utilized for the study. A dose lowering technique was utilized adhering to the principles of ALARA. CT DOSE: 564.90 mGy.cm FINDINGS: Suspected paraseptal emphysema within the lower lungs is unchanged. No pneumatosis, free air or portal venous gas is present. The liver is cirrhotic. Sensitivity for detection of hypervascular lesions is diminished on this venous phase exam. Splenomegaly, extensive varices formation and a small amount of ascites are similar to prior exam of March 18, 2020. There is no biliary ductal dilatation. The adrenal glands, kidneys and pancreas are unremarkable. There is no hydronephrosis. Mild gallbladder distention is noted. Marked wall thickening of the entire colon and rectum is similar to prior exam. There is no abscess. Images of the pelvis are degraded by streak artifact from a left hip arthroplasty. There is a nondisplaced left inferior pubic ramus fracture. Bautista balloon is present within the bladder. IMPRESSION: 1. Findings consistent with severe proctocolitis, either unchanged or slightly increased since CT of March 18, 2020. This favors an infectious process such as C. difficile colitis. 2. Cirrhosis with manifestations of portal hypertension including extensive varices formation, splenomegaly and a small amount of ascites. 3. Mild gallbladder distention, a nonspecific finding. KUB CLINICAL HISTORY: Abdominal distention COMPARISON STUDY: CT of the abdomen and pelvis March 18, 2020. KUB March 21, 2020. FINDINGS: Bowel gas pattern is normal. There is evidence for colonic wall t hickening which is better depicted by CT. Left hip arthroplasty is noted. There is extensive vascular calcification. IMPRESSION: 1. No evidence for a bowel obstruction. 2. Evidence for a colonic wall thickening, better depicted on CT.
[2020-04-20] MEDS: ACETAMINOPHEN 325 MG TAB PO PRN ×2 (10:36→21:46)
[2020-04-20 11:14] LABS: Estimated Average Glucose 88 mg/dl; Hemoglobin A1C 4.7 % (4.5-5.6)
--- NOTE | 2020-04-20 11:26 | Ultrasound Report ---
BILATERAL LOWER EXTREMITY VENOUS DOPPLER CLINICAL HISTORY: leg swelling COMPARISON STUDY: Left lower extremity venous Doppler ultrasound March 21, 2020. TECHNIQUE: Sonography of the deep venous system of the bilateral lower extremities was performed. Co mpression and augmentation were evaluated. FINDINGS: The bilateral common femoral, superficial femoral and popliteal veins were compressible. A ugmentation was normal. Flow was shown within the deep calf vessels. Note was made of lower extremity edema, left greater than right. IMPRESSION: No evidence of deep venous thrombus within the bilateral lower extremities. ACT 112: Negative or not required by law. Electronically signed by: Brian Hill M.D. 04/20/2020 11:25 AM
[2020-04-20 11:33] LABS: BUN Creatinine Ratio 13.5 (10-20); Calcium 7.8 mg/dl (8.5-10.1); Est GFR (African American) 119.6; Est GFR (Non-African American) 103.2; Magnesium 1.9 mg/dl (1.8-2.4); Potassium 3.1 mmol/L (3.5-5.1)
[2020-04-20] MEDS: VANCOMYCIN HCL 125 MG/2.5ML SOLN PO SCH ×2 (12:11→21:30)
[2020-04-20] MEDS: metroNIDAZOLE 500 MG/100 ML BAG IV SCH ×2 (12:11→21:42)
[2020-04-20] MEDS: RASPBERRY SYRUP 5 ML UDP PO SCH ×2 (12:11→21:31)
[2020-04-20] MEDS ORDERED: POTASSIUM CHLORIDE 20 MEQ TABCR PO STA (12:51)
[2020-04-20 13:00] LABS: Cdiff Antigen Positive
[2020-04-20 13:03] LABS: Cdiff Toxin A+B Positive Cdiff Toxin (Negative)
[2020-04-20] MEDS: CEFEPIME 2,000 MG in SYRINGE 7.5 ML IV SCH (16:30)
--- NOTE | 2020-04-20 17:03 | Hospitalist Progress Note ---
Date of Service April 20, 2020 Assessment & Plan (1) Severe sepsis: SIRS plus encephalopathy Possible sources : Partially treated recurrent C. difficile colitis Complicated UTI (hx quinolone resistant enteric organism) --C. difficile stool test: Positive GI consulted Continue oral vancomycin plus Flagyl IV Will need vancomycin daily indefinitely Continue IV fluids --Urine culture: Pending Continue cefepime IV Start Floranex 4 times daily -- LLE cellulitis History of recent left femoral surgery Level ultrasound: Negative for DVT Continue cefepime IV Monitor closely Hypokalemia secondary to diarrhea --Place with IV and p.o. potassium Magnesium normal hypertension, stable mood disorder/schizophrenia as per records --Stable cirrhosis as per records, no overt decompensation --Patient follow-up past tobacco abuse chronic thrombocytopenia secondary to chronic liver disease --Stable recent left hip fracture status post surgery --Stable Order PT and OT evaluation Functional disability DVT prophylaxis with SCDs RE thrombocytopenia Full code Disposition pending PT/OT eval Admission and Anticipated Discharge Date Admission Date: April 20, 2020 Subjective Follow-up for sepsis secondary to recurrent C. difficile, UTI Seen resting in bed, sitting up, not in distress, in good spirits Oriented x3, awake and alert, states that she feels improved compared to yest erday Still having some abdominal discomfort, diarrhea is improving Reports mild dysuria, no flank pain No chest pain, shortness of breath, palpitations, dizziness No other symptoms Review of Systems Review of Systems: All systems reviewed & are unremarkable except as noted in HPI & below Physical Exam Physical Exam: General- oriented x 3, not in distress, speaks in sentences with no effort or accessory muscle use Somewhat weak, undernourished Head- atraumatic Eyes- PERRL, EOMI, anicteric ENT- oropharynx clear Neck- supple, no JVD, no adenopathy, no thyromegaly; carotids +2/2, no bruits appreciated Lungs- clear to auscultation bilaterally, no rales/wheezes Heart- normal rate, regular rhythm; no murmur, no gallop, no rub appreciated Abdomen- normal bowel sounds, nondistended, soft, nontender, no masses or hepatosplenomegaly Extremities- Positive mild left lower extremity edema but no erythema, warmth, tenderness; surgical scar healing well no calf tenderness; peripheral pulses intact Neuro- alert, oriented x 3; CN 2-12 grossly intact; motor 5/5 bilaterally;sensation 100% on all extremities; no other gross focal neurologic deficits Skin- warm & dry Results & Data Results & Data ([facility]) Vital Signs (Past 12 Hours) Vital Signs Temp Pulse Pulse Pulse Resp BP BP 04/20/20 16:00 96 H 04/20/20 15:35 37.0 C 95 H 18 04/20/20 11:49 96 H 04/20/20 10:29 38.0 C H 04/20/20 07:58 36.7 C 96 H 20 152/81 H 04/20/20 06:34 37.1 C 86 24 04/20/20 05:45 38.7 C H 04/20/20 05:00 98 H 20 127/64 BP Pulse Ox 04/20/20 16:00 04/20/20 15:35 128/72 93 04/20/20 11:49 04/20/20 10:29 04/20/20 07:58 95 04/20/20 06:34 159/72 H 94 04/20/20 05:45 04/20/20 05:00 94
[2020-04-20] MEDS: LACTOBACILLUS ACIDOPHILUS (FLORANEX) TAB PO SCH ×2 (17:38→21:30)
[2020-04-20] MEDS: SODIUM CHLORIDE 0.9% 1000ML 1,000 ML IV SCH (17:41)
[2020-04-20] MEDS ORDERED: DOXYCYCLINE HYCLATE 100 MG CAP PO SCH (18:00)
[2020-04-20] MEDS ORDERED: POTASSIUM CHLORIDE 20 MEQ TABCR PO SCH (21:00)
[2020-04-21] MEDS: VANCOMYCIN HCL 125 MG/2.5ML SOLN PO SCH ×4 (00:39→20:10)
[2020-04-21] MEDS: RASPBERRY SYRUP 5 ML UDP PO SCH ×4 (00:40→20:10)
[2020-04-21] MEDS: TRAMADOL HCL 50 MG TABLET PO PRN ×2 (00:45→18:16)
[2020-04-21] MEDS: metroNIDAZOLE 500 MG/100 ML BAG IV SCH ×3 (04:48→20:06)
[2020-04-21] MEDS: CEFEPIME 2,000 MG in SYRINGE 7.5 ML IV SCH ×2 (04:48→16:26)
[2020-04-21 08:10] LABS: Basophils # (auto) 0.03 K/uL (0-0.2); Basophils % (auto) 0.3 %; Eosinophils # (auto) 0.16 K/uL (0-0.5); Eosinophils % (auto) 1.5 %; Hematocrit (blood only) 34.5 % (37-47); Hemoglobin 11.1 g/dL (12.0-16.0); Immature Granulocytes # (auto) 0.01 K/uL (0.00-0.02); Immature Granulocytes % (auto) 0.1 %; Lymphocytes # (auto) 0.71 K/uL (1.2-3.4); Lymphocytes % (auto) 6.7 %; Mean Corpuscular Hemoglobin 29.7 pg (25-34); Mean Corpuscular Hgb Conc 32.2 g/dL (32-36); Mean Corpuscular Volume 92.2 fL (80-100); Mean Platelet Volume 10.8 fL (7.4-10.4); Monocytes # (auto) 0.67 K/uL (0.11-0.59); Monocytes % (auto) 6.4 %; Neutrophils # (auto) 8.94 K/uL (1.4-6.5); Platelet Count 125 K/uL (130-400); RDW Standard Deviation 61.7 fL (36.4-46.3); Red Blood Count 3.74 M/uL (4.2-5.4); White Blood Count 10.52 K/uL (4.8-10.8)
[2020-04-21 08:34] LABS: BUN Creatinine Ratio 18.3 (10-20); Calcium 7.8 mg/dl (8.5-10.1); Creatinine Clr Calc Pharmacy 189.5 ml/min; Est GFR (African American) 139.8; Est GFR (Non-African American) 120.6; Magnesium 1.9 mg/dl (1.8-2.4); Potassium 2.7 mmol/L (3.5-5.1)
[2020-04-21] MEDS: LACTOBACILLUS ACIDOPHILUS (FLORANEX) TAB PO SCH ×4 (08:41→20:12)
[2020-04-21] MEDS: CEROVITE ADV FORMULA TAB PO SCH (08:41)
[2020-04-21] MEDS: FEXOFENADINE HCL 180 MG TAB PO SCH (08:41)
[2020-04-21] MEDS: METOPROLOL SUCC 50MG EXT REL TAB PO SCH ×2 (08:41→20:15)
[2020-04-21] MEDS: FLUTICASONE PROPIONATE NA SPR 16 GM BTL SCH (08:42)
--- NOTE | 2020-04-21 09:01 | Gastroenterology Progress Note ---
Date of Service April 21, 2020 Assessment & Plan (1) C. difficile colitis: Patient with recurrent C. difficile colitis as noted on her recent C. difficile PCR. She does look markedly improved today after treatment with both metronidazole and vancomycin. Recommendations Vancomycin 125 mg 4 times daily for 14 days then 1 time daily for an additional 4 weeks Metronidazole 3 times daily for another 72 hours If patient has additional recurrences would need to consider alternate therapies such as long-term suppression with vancomycin or perhaps fecal bacterial therapy (not presently available due to COVID-19) Admission and Anticipated Discharge Date Admission Date: April 20, 2020 Subjective The patient looks much improved today. She is able to carry on a normal con versation and notes she is feeling much better. Review of Systems Constitutional: + malaise; no sweats and no weight loss Eyes: no diplopia Respiratory: no change in sputum and no hemoptysis Cardiovascular: no chest pain with activity Physical Exam Constitutional: + thin; no acute distress Neck: trachea midline, no thyromegaly Respiratory: no respiratory distress Auscultation: + wheezes Cardiovascular: Heart Sounds: + murmur Gastrointestinal (Abdomen): Percussion/Palpation: abdomen soft; abdomen nontender and no guarding Results & Data ([facility]) Vital Signs (Past 12 Hours) Vital Signs Temp Pulse Pulse Resp BP BP Pulse Ox 04/21/20 04:21 37.0 C 77 20 129/66 92 04/20/20 23:56 75 04/20/20 23:45 37.6 C H 81 20 138/64 92 04/20/20 21:35 37.9 C H 92 H 18 138/65 94 Laboratory Results Laboratory Results - last 24 hr 04/20/20 04/20/20 04/20/20 00:30 05:52 10:33 WBC RBC Hgb Hct MCV MCH MCHC RDW Std Deviation RDW Coeff of Dewayne Plt Count MPV Immature Gran % (Auto) Neut % (Auto) Lymph % (Auto) [place] % (Auto) Eos % (Auto) Baso % (Auto) Immature Gran # (Auto) Neut # (Auto) Lymph # (Auto) [place] # (Auto) Eos # (Auto) Baso # (Auto) Sodium 139 Potassium 3.1 L Chloride 107 Carbon Dioxide 21 Anion Gap 11.0 BUN 7 Creatinine 0.53 L Est Cr Clr Drug Dosing 118.0 Est GFR ( Amer) 119.6 Est GFR (Non-Af Amer) 103.2 BUN/Creatinine Ratio 13.5 Glucose 110 H POC Glucose Estimat Average Glucose 88 Hemoglobin A1c 4.7 Calcium 7.8 L Magnesium 1.9 Nasal Screen MRSA (PCR) Stl C. diff Tox B Gene Positive Cdiff Gene H Stl C.difficile Tox A&B Positive Cdiff Toxin A* 04/20/20 04/21/20 04/21/20 10:40 07:28 07:28 WBC 10.52 RBC 3.74 L Hgb 11.1 L Hct 34.5 L MCV 92.2 MCH 29.7 MCHC 32.2 RDW Std Deviation 61.7 H RDW Coeff of Dewayne 18.0 H Plt Count 125 L MPV 10.8 H Immature Gran % (Auto) 0.1 Neut % (Auto) 85.0 Lymph % (Auto) 6.7 [place] % (Auto) 6.4 Eos % (Auto) 1.5 Baso % (Auto) 0.3 Immature Gran # (Auto) 0.01 Neut # (Auto) 8.94 H Lymph # (Auto) 0.71 L [place] # (Auto) 0.67 H Eos # (Auto) 0.16 Baso # (Auto) 0.03 Sodium 140 Potassium 2.7 L Chloride 110 H Carbon Dioxide 19 L Anion Gap 11.0 BUN 6 L Creatinine 0.33 L Est Cr Clr Drug Dosing 189.5 Est GFR ( Amer) 139.8 Est GFR (Non-Af Amer) 120.6 BUN/Creatinine Ratio 18.3 Glucose 102 H POC Glucose Estimat Average Glucose Hemoglobin A1c Calcium 7.8 L Magnesium 1.9 Nasal Screen MRSA (PCR) Negative Stl C. diff Tox B Gene Stl C.difficile Tox A&B 04/21/20 07:53 WBC RBC Hgb Hct MCV MCH MCHC RDW Std Deviation RDW Coeff of Dewayne Plt Count MPV Immature Gran % (Auto) Neut % (Auto) Lymph % (Auto) [place] % (Auto) Eos % (Auto) Baso % (Auto) Immature Gran # (Auto) Neut # (Auto) Lymph # (Auto) [place] # (Auto) Eos # (Auto) Baso # (Auto) Sodium Potassium Chloride Carbon Dioxide Anion Gap BUN Creatinine Est Cr Clr Drug Dosing Est GFR ( Amer) Est GFR (Non-Af Amer) BUN/Creatinine Ratio Glucose POC Glucose 98 Estimat Average Glucose Hemoglobin A1c Calcium Magnesium Nasal Screen MRSA (PCR) Stl C. diff Tox B Gene Stl C.difficile Tox A&B
--- NOTE | 2020-04-21 09:44 | Electrocardiogram Report ---
Test Reason : Blood Pressure : / mmHG Vent. Rate : 099 BPM Atrial Rate : 099 BPM P-R Int : 154 ms QRS Dur : 090 ms QT Int : 384 ms P-R-T Axes : 009 031 -26 degrees QTc Int : 492 ms Normal sinus rhythm Nonspecific ST and T wave abnormality Prolonged QT Abnormal ECG When compared with ECG of 02-APR-2020 19:41, No significant change was found Confirmed by Tani Johnston ([id number] on 04/21/2020 9:43:54 AM Referred By: REFERRED SELF Confirmed By:Tani Johnston
[2020-04-21] MEDS ORDERED: POTASSIUM CHLORIDE 20 MEQ TABCR PO STA (11:35)
[2020-04-21] MEDS: POTASSIUM CHLORIDE / WTR 10 MEQ/100 ML PLCT IV SCH ×4 (11:55→15:22)
[2020-04-21] MEDS: SODIUM CHLORIDE 0.9% 1000ML 1,000 ML IV SCH (14:56)
--- NOTE | 2020-04-21 19:15 | Hospitalist Progress Note ---
Date of Service April 21, 2020 Assessment & Plan (1) Severe sepsis: SIRS plus encephalopathy Secondary to recurrent C. difficile colitis Complicated UTI (hx quinolone resistant enteric organism) --C. difficile stool test: Positive GI consulted Improving Continue oral vancomycin plus Flagyl IV Will need vancomycin daily indefinitely Continue IV fluids --Urine culture: Gram-negative bacilli Continue cefepime IV Floranex 4 times daily -- LLE cellulitis History of recent left femoral surgery Level ultrasound: Negative for DVT Continue cefepime IV Improving We will monitor closely Hypokalemia secondary to diarrhea --Replace with IV and p.o. potassium Magnesium normal hypertension, stable mood disorder/schizophrenia as per records --Stable cirrhosis as per records, no overt decompensation --Patient follow-up past tobacco abuse chronic thrombocytopenia secondary to chronic liver disease --Stable recent left hip fracture status post surgery --Reports knee pain History of twisting her knee at home recently We will order x-rays of the knee and femur Order PT and OT evaluation Functional disability DVT prophylaxis start heparin subcutaneous 3 times daily Full code Disposition pending PT/OT eval May need to return to [facility] when medically stable Admission and Anticipated Discharge Date Admission Date: April 20, 2020 Subjective Follow-up for severe sepsis, C. difficile, UTI Seen resting in bed, comfortable, watching TV, awake and alert and oriented x3 States she feels improved compared to yesterday although still having multiple episodes of loose bowel movements Abdomen feels sore but no cramping Tolerating clear liquid diet well Reports pain over the left knee No other symptoms Review of Systems Review of Systems: All systems reviewed & are unremarkable except as noted in HPI & below Physical Exam Physical Exam: General- oriented x 3, not in distress, speaks in sentences with no effort or accessory muscle use Eyes- anicteric Neck- no JVD Lungs- clear breath sounds bilaterally, no crackles, no wheezing bilaterally Heart- normal rate, regular rhythm; no murmurs Abdomen- normal bowel sounds, nondistended, soft, nontender Extremities-mild left lower extremity edema, no warmth, no tenderness, left knee-erythema, edema, warmth, tenderness, right lower extremity no pretibial edema, no calf tenderness Neuro- alert, oriented x 3; no gross focal neurologic deficits Skin- warm & dry Results & Data Results & Data ([facility]) Vital Signs (Past 12 Hours) Vital Signs Temp Pulse Pulse Resp BP BP Pulse Ox 05/25/20 19:02 37.3 C 81 18 122/61 94 04/21/20 17:31 77 04/21/20 15:33 37.0 C 79 17 112/67 95 04/21/20 11:57 37.2 C 77 17 105/58 L 93 04/21/20 08:30 77
--- NOTE | 2020-04-21 20:50 | XRay Report ---
XR knee LT 1 or 2V routine CLINICAL HISTORY: 60 years-old Female presenting with left knee pain, r/o fracture. TECHNIQUE: Frontal and lateral views of the left knee were obtained. COMPARISON: 03/21/2020. FINDINGS: Buttress plate and screw fixation of the distal femoral metadiaphysis. Comminuted fracture at the lev el of the distal femoral metaphysis as on prior exam. Persistent medial displacement of the distal fr acture fragment comprising the femoral condyles. No significant anterior posterior angulation. Alignm ent is unchanged from prior. Underlying osteopenia. No evidence of interval periosteal reaction. Kimi onal osteopenia. No hardware breakage. Knee joint congruent. Chondrocalcinosis suspected. No advanced degenerative change. Regional soft tissue swelling with subcutaneous edema and skin thickening incre ased from prior exam. IMPRESSION: 1. Stable appearance of the internal fixation of the comminuted distal femoral metaphyseal fracture. Unchanged displacement. No new malalignment. No significant interval healing. 2. Increased regional soft tissue swelling. Correlate clinically to exclude cellulitis. ACT 112: Negative or not required by law. Electronically signed by: Elias Joshi M.D. 04/21/2020 8:49 PM
--- NOTE | 2020-04-21 20:53 | XRay Report ---
XR femur LT 2V routine CLINICAL HISTORY: 60 years-old Female presenting with left femur pain, r/o fracture. TECHNIQUE: Frontal and lateral views of the left femur were obtained. COMPARISON: 04/07/2020. FINDINGS: Redemonstration of total left hip arthroplasty, cerclage wire fixation at the level of the subtrochan teric region, and a plate and screw fixation of the diaphysis and distal metaphysis. Redemonstration of the comminuted and displaced fracture of the distal femoral metaphysis. Hardware remains intact. N o change in alignment. Soft tissue swelling in the left thigh. No evidence of acute osseous injury. N o change in alignment. IMPRESSION: 1. Unchanged appearance of the total left hip arthroplasty and internal fixation hardware of the lef t femur. 2. Unchanged comminuted and mildly displaced distal femoral metaphyseal fracture. 3. Regional soft tissue swelling. ACT 112: Negative or not required by law. Electronically signed by: Elias Joshi M.D. 04/21/2020 8:52 PM
[2020-04-21] MEDS: HEPARIN SOD 5,000 UNIT/0.5 ML VIAL SQ SCH (21:33)
[2020-04-22] MEDS: RASPBERRY SYRUP 5 ML UDP PO SCH ×5 (00:03→23:55)
[2020-04-22] MEDS: VANCOMYCIN HCL 125 MG/2.5ML SOLN PO SCH ×5 (00:03→23:55)
[2020-04-22] MEDS: CEFEPIME 2,000 MG in SYRINGE 7.5 ML IV SCH (04:16)
[2020-04-22] MEDS: metroNIDAZOLE 500 MG/100 ML BAG IV SCH ×3 (04:17→20:37)
[2020-04-22] MEDS: SODIUM CHLORIDE 0.9% 1000ML 1,000 ML IV SCH ×3 (06:09→21:48)
[2020-04-22] MEDS: HEPARIN SOD 5,000 UNIT/0.5 ML VIAL SQ SCH ×3 (06:10→20:41)
[2020-04-22] MEDS: CEROVITE ADV FORMULA TAB PO SCH (08:58)
[2020-04-22] MEDS: POTASSIUM CHLORIDE 20 MEQ TABCR PO SCH ×2 (08:58→20:41)
[2020-04-22] MEDS: FEXOFENADINE HCL 180 MG TAB PO SCH (08:58)
[2020-04-22] MEDS: LACTOBACILLUS ACIDOPHILUS (FLORANEX) TAB PO SCH ×4 (08:59→20:39)
[2020-04-22] MEDS: METOPROLOL SUCC 50MG EXT REL TAB PO SCH ×2 (08:59→20:41)
[2020-04-22] MEDS: FLUTICASONE PROPIONATE NA SPR 16 GM BTL SCH (09:00)
[2020-04-22] MEDS: MENTHOL-ZINC OXIDE 360 APPLN/120 GM TUBE EXT SCH ×3 (09:00→20:39)
[2020-04-22 09:33] LABS: Basophils # (auto) 0.05 K/uL (0-0.2); Basophils % (auto) 0.7 %; Eosinophils # (auto) 0.54 K/uL (0-0.5); Hemoglobin 11.4 g/dL (12.0-16.0); Immature Granulocytes # (auto) 0.01 K/uL (0.00-0.02); Immature Granulocytes % (auto) 0.1 %; Lymphocytes # (auto) 0.66 K/uL (1.2-3.4); Lymphocytes % (auto) 9.8 %; Mean Corpuscular Hemoglobin 30.3 pg (25-34); Mean Corpuscular Hgb Conc 32.6 g/dL (32-36); Mean Corpuscular Volume 93.1 fL (80-100); Mean Platelet Volume 11.6 fL (7.4-10.4); Monocytes # (auto) 0.36 K/uL (0.11-0.59); Monocytes % (auto) 5.4 %; Platelet Count 157 K/uL (130-400); RDW Coefficient of Variation 17.8 % (11.5-14.5); RDW Standard Deviation 61.1 fL (36.4-46.3); Red Blood Count 3.76 M/uL (4.2-5.4); White Blood Count 6.72 K/uL (4.8-10.8)
[2020-04-22 09:47] LABS: BUN Creatinine Ratio 11.5 (10-20); Calcium 7.6 mg/dl (8.5-10.1); Creatinine Clr Calc Pharmacy 135.9 ml/min; Est GFR (African American) 125.3; Est GFR (Non-African American) 108.1; Potassium 2.9 mmol/L (3.5-5.1)
[2020-04-22] MEDS: cefTRIAXone SODIUM 1,000 MG in DEXTROSE 5% 50 ML IV SCH (11:08)
--- NOTE | 2020-04-22 13:00 | Gastroenterology Progress Note ---
Date of Service April 22, 2020 Assessment & Plan (1) C. difficile colitis: Pt is a 60 y/o female admitted for recurrent Cdiff. Has rectal bag now w continued loose stools. Abd pain is improved. Tolerating CL diet - Advance diet as tolerated - Add Questran 4g BID - Vancomycin 125 mg 4 times daily for 14 days then 1 time daily for an additional 4 weeks - Metronidazole 3 times daily for another day - If patient has additional recurrences would need to consider alternate therapies such as long-term suppression with vancomycin 125mg daily or perhaps fecal bacterial therapy (not presently available due to COVID-19) Admission and Anticipated Discharge Date Admission Date: April 20, 2020 Supervising Physician Co-Signing Physician Notes I Saw and evaluated the patient. She does continue to appear improved today. She does have liquid stool presently and we are recommending addition of Questran 4 g 1 time daily. Subjective Pt has rectal bag in place, liquid dark stools noted. She has mild generalized abd pain. Denies n/v, wants to try more solid foods. Noted she has been afebrile and WBC now normalized Review of Systems Review of Systems: All systems reviewed & are unremarkable except as noted in HPI & below Physical Exam Constitutional: WD/WN, vitals as above well groomed, cooperative and comfortable Eyes: PERRL, conjunctivae normal, anicteric sclerae ENMT: external ear and nose normal, oropharynx normal Respiratory: normal respiratory effort, lungs clear to auscultation Cardiovascular: RRR, no murmur, no edema Gastrointestinal (Abdomen): normal bowel sounds, soft, nontender, no hepatosplenomegaly Skin: no rashes, warm and dry no jaundice Psychiatric: A+Ox3, euthymic affect Lymphatic: no lymphedema Results & Data ([facility]) Vital Signs (Past 12 Hours) Vital Signs Temp Pulse Resp BP BP Pulse Ox 04/22/20 11:38 36.5 C 67 18 112/64 93 04/22/20 06:41 36.8 C 67 19 113/67 94 04/22/20 02:51 36.7 C 65 18 92/53 L 93
[2020-04-22] MEDS ORDERED: POTASSIUM CHLORIDE 20 MEQ TABCR PO STA (15:39)
[2020-04-22] MEDS: CHOLESTYRAMINE LIGHT 4 GM PKT PO SCH (21:47)
[2020-04-23] MEDS: metroNIDAZOLE 500 MG/100 ML BAG IV SCH ×3 (03:33→20:58)
[2020-04-23] MEDS: HEPARIN SOD 5,000 UNIT/0.5 ML VIAL SQ SCH ×3 (05:51→21:04)
--- NOTE | 2020-04-23 06:16 | Hospitalist Progress Note ---
Date of Service delayed entry date of service 04/22/20 April 23, 2020 Assessment & Plan (1) Severe sepsis: SIRS plus encephalopathy Secondary to recurrent C. difficile colitis Complicated UTI (hx quinolone resistant enteric organism) possible LLE cellulitis --C. difficile stool test: Positive GI consulted Improving Continue oral vancomycin plus Flagyl IV Will need vancomycin daily indefinitely Continue IV fluids --Urine culture: Proteus, pansensitive cefepime IV-->transitioned to Ceftri IV Floranex 4 times daily -- LLE cellulitis presented with mild edema, warmth on the LLE related to recent fracture s/p surgery? History of recent left femoral surgery Level ultrasound: Negative for DVT on Ceftriaxone Improving Hypokalemia secondary to diarrhea --Replace with IV and p.o. potassium Magnesium normal hypertension, stable mood disorder/schizophrenia as per records --Stable cirrhosis as per records, no overt decompensation --Patient follow-up past tobacco abuse chronic thrombocytopenia secondary to chronic liver disease --Stable recent left hip and femoral fracture status post surgery --Reports knee pain History of twisting her knee at home recently knee and femoral xray: 1. Unchanged appearance of the total left hip arthroplasty and internal fixation hardware of the left femur. 2. Unchanged comminuted and mildly displaced distal femoral metaphyseal fracture. 3. Regional soft tissue swelling. --per [facility], WBAT, knee immobilizer when out of bed continue PT/OT eval DVT prophylaxis -- heparin subcutaneous 3 times daily Full code Disposition pending PT/OT eval May need to return to [facility] when medically stable tried to update patient's again: no answer please update Mr. Sidney Dorantes Admission and Anticipated Discharge Date Admission Date: April 20, 2020 Subjective ff up for c diff, UTI seen resting in bed, comfortable, sitting up, watching TV states she feels that she is improving daily less abdominal discomfort, rectal tube in place tolerating diet , requesting diet to be advanced less left lower ext pain no other symptoms Review of Systems Review of Systems: All systems reviewed & are unremarkable except as noted in HPI & below Physical Exam Physical Exam: General- oriented x 3, not in distress, speaks in sentences with no effort or accessory muscle use Eyes- anicteric Neck- no JVD Lungs- clear BS BL Heart- normal rate, regular rhythm; no murmurs Abdomen- hyperactive bowel sounds, nondistended, soft, nontender Extremities- left lower ext: mild edema- improving, no erythema/warmth/tenderness right lower ext: no pretibial edema, no calf tenderness Neuro- alert, oriented x 3; no gross focal neurologic deficits Skin- warm & dry Results & Data Results & Data ([facility]) Vital Signs (Past 12 Hours) Vital Signs Temp Pulse Pulse Resp BP BP Pulse Ox 04/23/20 04:00 36.8 C 72 18 112/63 95 04/23/20 00:20 72 04/22/20 23:03 36.7 C 72 18 105/61 94 04/22/20 19:21 36.7 C 76 17 98/58 L 96
[2020-04-23 06:59] LABS: Basophils # (auto) 0.04 K/uL (0-0.2); Basophils % (auto) 0.9 %; Eosinophils # (auto) 0.46 K/uL (0-0.5); Eosinophils % (auto) 10.9 %; Hematocrit (blood only) 35.8 % (37-47); Hemoglobin 11.4 g/dL (12.0-16.0); Immature Granulocytes # (auto) 0.02 K/uL (0.00-0.02); Immature Granulocytes % (auto) 0.5 %; Lymphocytes # (auto) 0.51 K/uL (1.2-3.4); Lymphocytes % (auto) 12.1 %; Mean Corpuscular Hemoglobin 29.6 pg (25-34); Mean Corpuscular Hgb Conc 31.8 g/dL (32-36); Mean Platelet Volume 11.2 fL (7.4-10.4); Monocytes % (auto) 7.1 %; Neutrophils # (auto) 2.89 K/uL (1.4-6.5); Neutrophils % (auto) 68.5 %; Platelet Count 130 K/uL (130-400); RDW Coefficient of Variation 17.9 % (11.5-14.5); RDW Standard Deviation 61.7 fL (36.4-46.3); Red Blood Count 3.85 M/uL (4.2-5.4); White Blood Count 4.22 K/uL (4.8-10.8)
[2020-04-23 07:30] LABS: BUN Creatinine Ratio 13.6 (10-20); Calcium 7.7 mg/dl (8.5-10.1); Creatinine Clr Calc Pharmacy 164.5 ml/min; Est GFR (African American) 133.4; Est GFR (Non-African American) 115.1; Potassium 3.7 mmol/L (3.5-5.1)
[2020-04-23] MEDS: RASPBERRY SYRUP 5 ML UDP PO SCH ×3 (08:11→21:00)
[2020-04-23] MEDS: CEROVITE ADV FORMULA TAB PO SCH (08:12)
[2020-04-23] MEDS: LACTOBACILLUS ACIDOPHILUS (FLORANEX) TAB PO SCH ×4 (08:12→21:02)
[2020-04-23] MEDS: VANCOMYCIN HCL 125 MG/2.5ML SOLN PO SCH ×3 (08:12→21:01)
[2020-04-23] MEDS: FEXOFENADINE HCL 180 MG TAB PO SCH (08:13)
[2020-04-23] MEDS: POTASSIUM CHLORIDE 20 MEQ TABCR PO SCH ×2 (08:13→21:03)
[2020-04-23] MEDS: FLUTICASONE PROPIONATE NA SPR 16 GM BTL SCH (08:13)
[2020-04-23] MEDS: METOPROLOL SUCC 50MG EXT REL TAB PO SCH ×2 (08:14→21:02)
[2020-04-23] MEDS: MENTHOL-ZINC OXIDE 360 APPLN/120 GM TUBE EXT SCH ×3 (08:16→21:01)
[2020-04-23] MEDS ORDERED: CALCIUM GLUCONATE 10% 1,000 MG in SODIUM CHLORIDE 0.9% 50 ML IV ONE (09:45)
[2020-04-23] MEDS: CHOLESTYRAMINE LIGHT 4 GM PKT PO SCH ×2 (10:00→22:01)
--- NOTE | 2020-04-23 10:46 | Gastroenterology Progress Note ---
Date of Service April 23, 2020 Assessment & Plan (1) C. difficile colitis: Pt is a 60 y/o female admitted for recurrent Cdiff. Has rectal bag now w continued loose stools. Abd pain is improved. Tolerating solid foods. - Continue Questran 4g BID - Vancomycin 125 mg 4 times daily for 14 days then 1 time daily for an additional 4 weeks - Metronidazole 3 times daily till end of today - If patient has additional recurrences would need to consider alternate therapies such as long-term suppression with vancomycin 125mg daily or perhaps fecal bacterial therapy (not presently available due to COVID-19) - Will monitory peripherally ; please recall GI if any acute changes. We will help make f/u appt in GI clinic after her DC Admission and Anticipated Discharge Date Admission Date: April 20, 2020 Supervising Physician Co-Signing Physician Notes I have seen and examined the patient with MADALYN Hou whose note reflects our findings and plan. Still with loose stool. Slowly improving. Tolerating diet. Abd non-tender. COmpleting flagyl today. Will need prolonged oral vanco as outlined above. Please call with questions. Subjective Pt denies fever, chills, said still having some abd pain but no n/v. Rectal bag in place, liquid dark stools in bag. Review of Systems Review of Systems: All systems reviewed & are unremarkable except as noted in HPI & below Physical Exam Constitutional: WD/WN, vitals as above well groomed, cooperative and comfortable Eyes: PERRL, conjunctivae normal, anicteric sclerae ENMT: external ear and nose normal, oropharynx normal Respiratory: normal respiratory effort, lungs clear to auscultation Cardiovascular: RRR, no murmur, no edema Gastrointestinal (Abdomen): normal bowel sounds, soft, nontender, no hepatosplenomegaly Skin: no rashes, warm and dry no jaundice Psychiatric: A+Ox3, euthymic affect Lymphatic: no lymphedema Results & Data ([facility]) Vital Signs (Past 12 Hours) Vital Signs Temp Pulse Pulse Resp BP Pulse Ox 04/23/20 07:00 36.7 C 74 18 127/71 97 04/23/20 04:00 36.8 C 72 18 112/63 95 04/23/20 00:20 72 04/22/20 23:03 36.7 C 72 18 105/61 94
[2020-04-23] MEDS: SODIUM CHLORIDE 0.9% 1000ML 1,000 ML IV SCH (12:00)
[2020-04-23] MEDS: cefTRIAXone SODIUM 1,000 MG in DEXTROSE 5% 50 ML IV SCH (13:43)
[2020-04-23] MEDS: TRAMADOL HCL 50 MG TABLET PO PRN ×2 (13:50→18:13)
--- NOTE | 2020-04-23 17:06 | Hospitalist Progress Note ---
Date of Service April 23, 2020 Assessment & Plan (1) Severe sepsis: SIRS plus encephalopathy secondary to recurrent C. difficile colitis - Continue Questran 4g BID - Vancomycin 125 mg 4 times daily for 14 days then 1 time daily for an additional 4 weeks - Metronidazole 3 times daily till end of 04/23/2020 04/23/2020: Patient seen and examined today. The rectal tube was dislodged and hospitalist recommended that patient be without rectal tube at this time and with goals of encouraging her to work with PT/OT to engage with ambulation towards commode for bowel movements. Patient reports that she is not mobile enough to get to bathroom and so a discharge to home may not be possible in near future. also has melinda. Hospitalist have discussed with oil field caser about possibly having patient be re-assessed for [facility] after hospital stay. her electrolytes are normalized and gastroenterology is not recommending any procedural interventions other than to continue current oral Vancomycin for C.difficile associated diarrhea and loose stools. I do not appreciate a leg cellulitis on my exam possible urinary tract infection -Urine culture: Proteus, pansensitive -cefepime IV-->transitioned to Ceftriaxone IV, continue ceftriaxone for now -Floranex 4 times daily -- LLE cellulitis presented with mild edema, warmth on the LLE related to recent fracture s/p surgery? History of recent left femoral surgery Level ultrasound: Negative for DVT on Ceftriaxone Improving Hypokalemia secondary to diarrhea --Replace with IV and p.o. potassium Magnesium normal hypertension, stable mood disorder/schizophrenia as per records --Stable cirrhosis as per records, no overt decompensation --Patient follow-up past tobacco abuse chronic thrombocytopenia secondary to chronic liver disease --Stable recent left hip and femoral fracture status post surgery --Reports knee pain History of twisting her knee at home recently knee and femoral xray: 1. Unchanged appearance of the total left hip arthroplasty and internal fixation hardware of the left femur. 2. Unchanged comminuted and mildly displaced distal femoral metaphyseal fracture. 3. Regional soft tissue swelling. --per [facility], WBAT, knee immobilizer when out of bed continue PT/OT eval DVT prophylaxis -- heparin subcutaneous 3 times daily Full code Admission and Anticipated Discharge Date Admission Date: April 20, 2020 Subjective Patient seen and examined today. The rectal tube was dislodged and hospitalist recommended that patient be without rectal tube at this time and with goals of encouraging her to work with PT/OT to engage with ambulation towards commode for bowel movements. Patient reports that she is not mobile enough to get to bathroom and so a discharge to home may not be possible in near future. also has lawrence. Hospitalist have discussed with oil field caser about possibly having patient be re-assessed for [facility] after hospital stay. her electrolytes are normalized and gastroenterology is not recommending any procedural interventions other than to continue current oral Vancomycin for C.difficile associated diarrhea and loose stools no chest pain. no shortness of breath. no vomiting. no acute abdominal pain. patient denies dysuria. Review of Systems Review of Systems: All systems reviewed & are unremarkable except as noted in Subjective Physical Exam Constitutional: + frail appearing Eyes: PERRL, conjunctivae normal, anicteric sclerae EOM intact bilaterally ENMT: external ear and nose normal, oropharynx normal Neck: normal visual inspection Respiratory: normal respiratory effort, lungs clear to auscultation Cardiovascular: Rate/Rhythm: regular rate and regular rhythm Gastrointestinal (Abdomen): Inspection/Auscultation: normal bowel sounds Percussion/Palpation: abdomen soft Musculoskeletal: Head/Neck/Chest: normocephalic and head atraumatic Neurologic: PERRL, EOMI, accommodation nl, no face palsy, no dysarthria Psychiatric: A+Ox3, euthymic affect Genitourinary: + bladder abnormality (has lawrence) Results & Data Results & Data ([facility]) Vital Signs (Past 12 Hours) Vital Signs Temp Pulse Resp BP BP Pulse Ox 04/23/20 15:00 37.1 C 78 16 142/81 H 96 04/23/20 12:20 36.4 C L 71 16 134/74 98 04/23/20 07:00 36.7 C 74 18 127/71 97
[2020-04-24] MEDS: VANCOMYCIN HCL 125 MG/2.5ML SOLN PO SCH ×3 (00:05→11:57)
[2020-04-24] MEDS: RASPBERRY SYRUP 5 ML UDP PO SCH ×3 (00:05→11:56)
[2020-04-24] MEDS: SODIUM CHLORIDE 0.9% 1000ML 1,000 ML IV SCH ×2 (00:06→12:56)
[2020-04-24 03:10] LABS: Amobarbital, Urine Conf NEGATIVE ng/mL (<100); Amphetamine Urine, Confirm 1930 ng/mL (<250); Butalbital, Urine 1932 ng/mL (<100); Methamphetamine, Ur Confirm NEGATIVE ng/mL (<250); Pentobarbital, Urine Conf NEGATIVE ng/mL (<100); Phenobarbital, Urine NEGATIVE ng/mL (<100); Secobarbital, Urine Conf NEGATIVE ng/mL (<100)
[2020-04-24] MEDS: metroNIDAZOLE 500 MG/100 ML BAG IV SCH ×2 (04:07→11:56)
[2020-04-24] MEDS: HEPARIN SOD 5,000 UNIT/0.5 ML VIAL SQ SCH ×2 (06:01→12:55)
[2020-04-24 08:01] LABS: Basophils # (auto) 0.05 K/uL (0-0.2); Eosinophils # (auto) 0.45 K/uL (0-0.5); Eosinophils % (auto) 8.8 %; Hematocrit (blood only) 37.8 % (37-47); Hemoglobin 12.1 g/dL (12.0-16.0); Immature Granulocytes # (auto) 0.03 K/uL (0.00-0.02); Immature Granulocytes % (auto) 0.6 %; Lymphocytes # (auto) 0.63 K/uL (1.2-3.4); Lymphocytes % (auto) 12.4 %; Mean Corpuscular Hemoglobin 29.8 pg (25-34); Mean Corpuscular Volume 93.1 fL (80-100); Mean Platelet Volume 12.1 fL (7.4-10.4); Monocytes # (auto) 0.37 K/uL (0.11-0.59); Monocytes % (auto) 7.3 %; Neutrophils # (auto) 3.56 K/uL (1.4-6.5); Neutrophils % (auto) 69.9 %; Platelet Count 152 K/uL (130-400); RDW Coefficient of Variation 17.8 % (11.5-14.5); RDW Standard Deviation 61.2 fL (36.4-46.3); Red Blood Count 4.06 M/uL (4.2-5.4); White Blood Count 5.09 K/uL (4.8-10.8)
[2020-04-24 08:34] LABS: BUN Creatinine Ratio 10.9 (10-20); Creatinine Clr Calc Pharmacy 189.5 ml/min; Est GFR (African American) 139.8; Est GFR (Non-African American) 120.6; Potassium 3.8 mmol/L (3.5-5.1)
[2020-04-24] MEDS: LACTOBACILLUS ACIDOPHILUS (FLORANEX) TAB PO SCH ×3 (09:02→17:32)
[2020-04-24] MEDS: FEXOFENADINE HCL 180 MG TAB PO SCH (09:03)
[2020-04-24] MEDS: CEROVITE ADV FORMULA TAB PO SCH (09:03)
[2020-04-24] MEDS: METOPROLOL SUCC 50MG EXT REL TAB PO SCH (09:03)
[2020-04-24] MEDS: FLUTICASONE PROPIONATE NA SPR 16 GM BTL SCH (09:04)
[2020-04-24] MEDS: CHOLESTYRAMINE LIGHT 4 GM PKT PO SCH (09:04)
[2020-04-24] MEDS: POTASSIUM CHLORIDE 20 MEQ TABCR PO SCH (09:04)
[2020-04-24] MEDS: MENTHOL-ZINC OXIDE 360 APPLN/120 GM TUBE EXT SCH ×2 (09:05→12:56)
[2020-04-24] MEDS: cefTRIAXone SODIUM 1,000 MG in DEXTROSE 5% 50 ML IV SCH (11:56)
--- NOTE | 2020-04-24 14:25 | Hospitalist Progress Note ---
Date of Service April 24, 2020 Assessment & Plan (1) Severe sepsis: SIRS plus encephalopathy secondary to recurrent C. difficile colitis - Continue Questran 4g BID - Vancomycin 125 mg 4 times daily for 14 days then 1 time daily for an additional 4 weeks - Metronidazole 3 times daily till end of 04/23/2020 04/23/2020: Patient seen and examined today. The rectal tube was dislodged and hospitalist recommended that patient be without rectal tube at this time and with goals of encouraging her to work with PT[facility]OT [facility]. Patient reports that she is not mobile enough to get to bathroom and so a discharge to home may not be possible in near future. also has lawrence. Hospitalist have discussed with transplant case manager about possibly having patient be re-assessed for [facility] after hospital stay. her electrolytes are normalized and gastroenterology is not recommending any procedural interventions other than to continue current oral Vancomycin for C.difficile associated diarrhea and loose stools. I do not appreciate a leg cellulitis on my exam - Discharge to [facility] on 04/24/2020 Vancomycin 125 mg QID until until May 04 as indicated by the 04/20/2020 inpatient gastroenterology notes and then patient should be on Vancomycin as 125 mg daily. Because patient has had C.difficle for a while, would advise that Vancomycin daily be continued until patient has stool sample negative for C.difficile toxin. Questran (cholestyramine) QID for next 10 days may continue to firm up the stool Patient should have daily potassium and magnesium supplements for next 15 days and have follow labs by a primary care doctor for electrolytes Patient will need to be seen by primary care doctor in [facility] In addition she has outpatient follow up for usual primary care doctor 05/12/2020 11:00 AM Provider Alberto Borrego III, MD Department Family [facility] and then also will need to be seen by Gastroenterology at [facility] subsequently (2) Acute UTI (urinary tract infection): Possible urinary tract infection (completed antibiotics) -Urine culture: Proteus, pansensitive -cefepime IV-->transitioned to Ceftriaxone IV and completed 3 days of IV cef triaxone. -Patient wishes to go to [facility] with lawrence until she has more strength to get to a commode regularly Left lower extremity cellulitis (resolved) -received IV antibiotics as above, suspect that leg issues could have partially been from inflammation of activity with ambulation previous history of left hip and femoral fracture status post surgery -History of twisting her knee at home recently knee and femoral xray: 1. Unchanged appearance of the total left hip arthroplasty and internal fixation hardware of the left femur. 2. Unchanged comminuted and mildly displaced distal femoral metaphyseal fracture. 3. Regional soft tissue swelling -knee immobilizer when out of bed, left leg to be partial weightbearing Hypokalemia secondary to diarrhea (hypokalemia improved) -serum electrolytes of potassium repleted during hospital stay -Patient should have daily potassium and magnesium supplements for next 15 days and have follow labs by a primary care doctor for electrolytes cirrhosis as per records, no overt decompensation chronic thrombocytopenia secondary to chronic liver disease -gastroenterology follow up as outpatient -no acute hypertensive episodes on this hospital stay mood disorder/schizophrenia as per records -no acute behavioral issues on this admission past tobacco abuse Admission and Anticipated Discharge Date Admission Date: April 20, 2020 Subjective Patient to be discharged to [facility]. she feels the bowel movements are firming up more. eating well. no vomiting. electrolytes are stable. left leg more comfortable as per patient. breathing on room air. no shortness of breath. no chest pain or abdominal pain. Patient wishes to go to [facility] [place] until she has more [facility] Physical Exam Constitutional: + frail appearing Eyes: PERRL, conjunctivae normal, anicteric sclerae EOM intact bilaterally ENMT: external ear and nose normal, oropharynx normal Neck: normal visual inspection Respiratory: normal respiratory effort, lungs clear to auscultation Cardiovascular: Rate/Rhythm: regular rate and regular rhythm Gastrointestinal (Abdomen): Inspection/Auscultation: normal bowel sounds Percussion/Palpation: abdomen soft Musculoskeletal: Head/Neck/Chest: normocephalic and head atraumatic Skin: no rashes, warm and dry (left leg erythema resolved) Neurologic: PERRL, EOMI, accommodation nl, no face palsy, no dysarthria Psychiatric: A+Ox3, euthymic affect Genitourinary: + bladder abnormality (has lawrence) Results & Data Results & Data ([facility]) Vital Signs (Past 12 Hours) Vital Signs Temp Pulse Pulse Resp BP Pulse Ox 04/24/20 11:25 36.5 C 65 18 127/72 96 04/24/20 07:43 68 04/24/20 07:00 36.8 C 73 18 130/73 97 04/24/20 03:00 36.6 C 69 20 116/66 96
--- NOTE | 2020-04-24 14:34 | Discharge Summary ---
Date of Service April 24, 2020 Admission HPI Per Admitting Provider History obtained from patient, family, and records. Limited history from patient secondary to lethargic state and hearing impairment. Medical history significant for hypertension, recurrent C. difficile, mood disorder, schizophrenia as per records, cirrhosis as per records, past tobacco abuse as per records, chronic thrombocytopenia, recent left hip fracture status post surgery, history of drug abuse as per records. Recent confinement 3 weeks ago for recurrent C. difficile. Patient discharged to rehab facility on vancomycin and Flagyl course. As per , patient had to be discharged from [facility] rehab facility 4 days ago because of financial constraints. Patient discharged on oral vancomycin once daily prescription (unclear duration of therapy) as per discharge note. Continuous nonbloody diarrhea at home as per patient . 2 days ago patient noted increasing abdominal distention and achy discomfort. Some nausea, no emesis. At about the same time, left lower leg noted to be swollen and warm. Yesterday patient noted to have decreased responsiveness. Fever chills noted at home. At the ER, patient given Levaquin for sepsis. 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 difficile colitis) Possible urinary tract infection (completed antibiotics) Left lower extremity cellulitis (resolved) Hypokalemia secondary to diarrhea (hypokalemia improved) Discharge Exam Constitutional + frail appearing Eyes PERRL, conjunctivae normal, anicteric sclerae EOM intact bilaterally ENMT external ear and nose normal, oropharynx normal Neck normal visual inspection Respiratory normal respiratory effort, lungs clear to auscultation Cardiovascular Rate/Rhythm: regular rate and regular rhythm Gastrointestinal (Abdomen) Inspection/Auscultation: normal bowel sounds Percussion/Palpation: abdomen soft Musculoskeletal Head/Neck/Chest: normocephalic and head atraumatic Skin no rashes, warm and dry (left leg erythema resolved) Neurologic PERRL, EOMI, accommodation nl, no face palsy, no dysarthria Psychiatric A+Ox3, euthymic affect Genitourinary + bladder abnormality (has lawrence) Discharge Data Allergies Allergy/AdvReac Type Severity Reaction Status Date / Time Penicillins Allergy Severe ANAPHYLAXIS Verified 04/02/20 21:12 hydrocodone AdvReac Intermediate Nausea Unverified 04/02/20 21:12 [From Lorcet (hydrocodone)] Consultations 04/20/20 03:05 ED Decision to Admit Stat 04/20/20 06:25 Consult Case Management - Discharge Planning Routine 04/20/20 07:36 Consult Gastroenterology Routine Ordered Studies 04/20/20 00:58 CT head/brain wo con Urgent 04/20/20 03:45 CT abd pelvis IV con only Urgent 04/20/20 06:25 US venous doppler [facility] Urgent Hospital Course (1) Severe sepsis: SIRS plus encephalopathy secondary to recurrent C. difficile colitis - Continue Questran 4g BID - Vancomycin 125 mg 4 times daily for 14 days then 1 time daily for an additional 4 weeks - Metronidazole 3 times daily till end of 04/23/2020 04/23/2020: Patient seen and examined today. The rectal tube was dislodged and hospitalist recommended that patient be without rectal tube at this time and with goals of encouraging her to work with PT/OT to engage with ambulation towards commode for bowel movements. Patient reports that she is not mobile enough to get to bathroom and so a discharge to home may not be possible in near future. also has melinda. Hospitalist have discussed with behavioral health case manager about possibly having patient be re-assessed for [facility] after hospital stay. her electrolytes are normalized and gastroenterology is not recommending any procedural interventions other than to continue current oral Vancomycin for C.difficile associated diarrhea and loose stools. I do not appreciate a leg cellulitis on my exam - Discharge to [facility] on 04/24/2020 Vancomycin 125 mg QID until until May 04 as indicated by the 04/20/2020 inpatient gastroenterology notes and then patient should be on Vancomycin as 125 mg daily. Because patient has had C.difficle for a while, would advise that Vancomycin daily be continued until patient has stool sample negative for C.difficile toxin. Questran (cholestyramine) QID for next 10 days may continue to firm up the stool Patient should have daily potassium and magnesium supplements for next 15 days and have follow labs by a primary care doctor for electrolytes Patient will need to be seen by primary care doctor in [facility] In addition she has outpatient follow up for usual primary care doctor 05/12/2020 11:00 AM Provider Alberto Borrego III, MD Department [facility] and then also will need to be seen by Gastroenterology at [facility] subsequently (2) Acute UTI (urinary tract infection): Possible urinary tract infection (completed antibiotics) -Urine culture: Proteus, pansensitive -cefepime IV-->transitioned to Ceftriaxone IV and completed 3 days of IV ceftriaxone. -Patient wishes to go to [facility] with lawrence until she has more strength to get to a commode regularly Left lower extremity cellulitis (resolved) -received IV antibiotics as above, suspect that leg issues could have partially been from inflammation of activity with ambulation previous history of left hip and femoral fracture status post surgery -History of twisting her knee at home recently knee and femoral xray: 1. Unchanged appearance of the total left hip arthroplasty and internal fixation hardware of the left femur. 2. Unchanged comminuted and mildly displaced distal femoral metaphyseal fracture. 3. Regional soft tissue swelling -knee immobilizer when out of bed, left leg to be partial weightbearing Hypokalemia secondary to diarrhea (hypokalemia improved) -serum electrolytes of potassium repleted during hospital stay -Patient should have daily potassium and magnesium supplements for next 15 days and have follow labs by a primary care doctor for electrolytes cirrhosis as per records, no overt decompensation chronic thrombocytopenia secondary to chronic liver disease -gastroenterology follow up as outpatient -no acute hypertensive episodes on this hospital stay mood disorder/schizophrenia as per records -no acute behavioral issues on this admission past tobacco abuse Total Time Total Time Spent Total Time Spent (In Minutes): 40 minutes Total Time Includes: Examination of the Patient, Discharge Planning, Medication Reconciliation and Communication With Other Providers Discharge Plan Discharge Items Patient Disposition: Transfer Inpatient Rehab Fac Reason For Visit: SEPSIS Discharge Diagnosis: Sepsis (SIRS plus encephalopathy secondary to recurrent C. difficile colitis) Possible urinary tract infection (completed antibiotics) Left lower extremity cellulitis (resolved) Hypokalemia secondary to diarrhea (hypokalemia improved) Condition on Discharge: Good Activity: Per Instructions section Non-emergency contact: Primary Care Provider and Rn Field Call non-emergency contact if: you have any medication questions Follow-up/Referrals: PCP,NO [Primary Care Provider] - Diet: Regular Addtl Attending Provider Instructions: Vancomycin 125 mg QID until until May 04 as indicated by the 04/20/2020 in patient gastroenterology notes and then patient should be on Vancomycin as 125 mg daily. Because patient has had C.difficle for a while, would advise that Vancomycin daily be continued until patient has stool sample negative for C.difficile toxin. Questran (cholestyramine) QID for next 10 days may continue to firm up the stool Patient should have daily potassium and magnesium supplements for next 15 days and have follow labs by a primary care doctor for electrolytes Patient will need to be seen by primary care doctor in [facility] In addition she has outpatient follow up for usual primary care doctor 05/12/2020 11:00 AM Provider Alberto Borrego III, MD Department [facility] and then also will need to be seen by Gastroenterology at [facility] Cad Librarian Provider Instructions: knee immobilizer when out of bed, left leg to be partial weightbearing Patient wishes to go to [facility] with lawrence until she has more strength to get to a commode regularly Pending Studies at Discharge: No Stand-Alone Forms: My [facility] Skilled Items Patient informed of condition?: Yes DNR: No Discharge Level of Care: Acute rehab Communicable Disease: No Discharge Prognosis: Stable Lines: None Urinary Catheter: Yes Medications and DC Order Prescriptions: New Cholestyramine Light 4 gram Powder In Packet 4 g PO BID@1000,2200 10 Days Qty: 20 RF: 0 potassium chloride 20 mEq tablet extended release 20 meq PO DAILY Qty: 15 RF: 0 magnesium oxide 400 mg (241.3 mg magnesium) tablet 400 mg PO DAILY Qty: 15 RF: 0 vancomycin 125 mg capsule 125 mg PO UD 20 Days Qty: 50 RF: 0 Continued olopatadine 0.1 % Drops 1 drp OPB BID RF: 0 loratadine 10 mg Tablet 10 mg PO DAILY PRN (Reason: Allergy Symptoms) RF: 0 acetaminophen 325 mg Tablet 650 mg PO Q6H PRN (Reason: Pain) RF: 0 dextroamphetamine-amphetamine [Adderall] 10 mg Tablet 20 mg PO BID RF: 0 Centrum Silver 0.4-300-250 mg-mcg-mcg Tablet 1 tab PO DAILY RF: 0 acetaminophen-codeine [Tylenol-Codeine #3] 300-30 mg Tablet 1 - 2 tab PO Q4H PRN (Reason: Pain) RF: 0 ondansetron HCl [Zofran] 4 mg Tablet 4 mg PO Q6H PRN (Reason: nausea/vomiting) RF: 0 albuterol sulfate 2.5 mg /3 mL (0.083 %) Solution For Nebulization 2.5 mg INHALATION DIRECTED PRN (Reason: sob) RF: 0 albuterol sulfate [ProAir HFA] 90 mcg/actuation Hfa Aerosol Inhaler 2 puff INHALATION QID RF: 0 fluticasone propionate 50 mcg/actuation [place],Suspension 2 spray INTRANASAL DAILY RF: 0 lisinopril 10 mg Tablet 10 mg PO DAILY RF: 0 ascorbic acid (vitamin C) [Vitamin C] 500 mg Tablet 500 mg PO DAILY RF: 0 fexofenadine 180 mg Tablet 180 mg PO DAILY RF: 0 Calcium 600 + D(3) 600 mg calcium- 200 unit Capsule 1 cap PO BID RF: 0 hydrochlorothiazide 25 mg Tablet 25 mg PO DAILY RF: 0 metoprolol succinate 50 mg Tablet Extended Release 24 Hr 50 mg PO BID RF: 0 Discharge Orders: Discharge Order (Routine); Ordered 04/24/20 Ordered By: Joshua David Admission Data Admit Date/Time: 04/20/20 03:50 Attending Provider: Joshua David Admit Provider: Eliel Briscoe Primary Care Provider: PCP,NO Other Providers: Eliel Briscoe ; Justin Cesar ; Miguelina Avila ; Bernie Mcduffie ; Pierre Cook ; [facility] ; [facility]
== END 2020-04-24 20:10 | DRG 872 ==
LOC: ED 00:46 → SUATTDRO 03:50 → 2W 03:50

== ENCOUNTER 2020-06-05 00:44 | Inpatient (IN) ==
[2020-06-05 01:38] LABS: Alanine Aminotransferase 55 U/L (12-78); Albumin Level 3.1 gm/dl (3.4-5.0); Aspartate Aminotransferase 42 U/L (15-37); BUN Creatinine Ratio 25.3 (10-20); Blood Urea Nitrogen 15 mg/dl (7-18); Calcium 8.6 mg/dl (8.5-10.1); Carbon Dioxide 21 mmol/L (21-32); Chloride 108 mmol/L (98-107); Est GFR (African American) 115.5; Est GFR (Non-African American) 99.6; Glucose 152 mg/dl (70-99); Lipase 31 U/L (73-393); Magnesium 1.7 mg/dl (1.8-2.4); Potassium 3.2 mmol/L (3.5-5.1); Sodium 140 mmol/L (136-145)
[2020-06-05 01:40] LABS: INR 1.3 (0.9-1.1); Partial Thromboplastin Ratio 1.2; Partial Thromboplastin Time 32.3 Seconds (21.0-31.0); Prothrombin Time 13.1 Seconds (9.0-12.0)
[2020-06-05 01:49] LABS: Albumin Globulin Ratio 0.7 (0.9-2); Alkaline Phosphatase 155 U/L (45-117); Bilirubin,Total 1.3 mg/dl (0.2-1); Globulin 4.4 gm/dl (2.5-4.0); Thyroid Stimulating Hormone 0.801 uIu/ml (0.300-4.500); Total Protein 7.5 gm/dl (6.4-8.2); Troponin I < 0.015 ng/ml (0-0.045)
[2020-06-05 01:56] LABS: Hematocrit (blood only) 42.8 % (37-47); Mean Corpuscular Hemoglobin 30.5 pg (25-34); Mean Corpuscular Hgb Conc 32.7 g/dL (32-36); Mean Corpuscular Volume 93.2 fL (80-100); Platelet Count 79 K/uL (130-400); RDW Coefficient of Variation 15.8 % (11.5-14.5); RDW Standard Deviation 54.5 fL (36.4-46.3); Red Blood Count 4.59 M/uL (4.2-5.4); White Blood Count 10.15 K/uL (4.8-10.8)
[2020-06-05 01:58] LABS: Basophils # (auto) 0.01 K/uL (0-0.2); Basophils % (auto) 0.1 %; Immature Granulocytes # (auto) 0.03 K/uL (0.00-0.02); Immature Granulocytes % (auto) 0.3 %; Lymphocytes # (auto) 0.38 K/uL (1.2-3.4); Lymphocytes % (auto) 3.7 %; Monocytes # (auto) 0.64 K/uL (0.11-0.59); Monocytes % (auto) 6.3 %; Neutrophils # (auto) 9.09 K/uL (1.4-6.5); Neutrophils % (auto) 89.6 %; Ovalocytes 1+; Platelet Estimate Decreased (Normal)
[2020-06-05 02:34] LABS: Appearance Urine Clear (Clear); Bacteria Urine Automated Negative (Negative); Bilirubin Urine Negative (Negative); Blood Urine 1+ (Negative); Color Urine Dark Yellow; Epithelial Cell Urine Auto >30 /lpf (0-5); Glucose Urine UA Negative (Negative); Ketones Urine Negative (Negative); Leukocyte Esterase Urine Negative (Negative); Nitrite Urine Negative (Negative); Protein Urine Negative (Negative); RBC Urine Automated 0-4 /hpf (0-4); Specific Gravity Urine 1.025 (1.000-1.030); Urobilinogen Urine Negative (Negative)
[2020-06-05 02:46] LABS: Mucus Urine Present (None Prsent)
[2020-06-05 03:02] LABS: Cdiff Antigen Positive
[2020-06-05 03:03] LABS: Cdiff Toxin A+B Positive Cdiff Toxin (Negative)
--- NOTE | 2020-06-05 03:27 | Emergency Department Note ---
History of Present Illness General Chief complaint: Altered Mental Status Stated complaint: ALTERED MENTAL STATUS Time Seen by Provider: 06/05/20 01:03 History of Present Illness This is a 60-year-old female presenting to the emergency department for evaluation of altered mental status. Much of the history is provided by EMS and through the patient's , as the patient herself is unable to answer questions. Evidently the patient has a past history of recurrent C. difficile with sepsis. She was admitted and subsequently discharged from [facility] on 05/07/2020, and had been doing fairly well at home. She is typically able to ambulate with her walker and participate in activities of daily living with the help of her . Evidently her noticed that she was more tired than normal today when he checked on her around 8 AM. The continue to check on her throughout the day, and when she did not answer his questions tonight, he contacted EMS. Upon arrival to the facility the patient has large amounts of foul-smelling stool from her neck down to her legs. Patient was diligently cleaned by nursing. The patient evidently has not had any new medication changes. No reports of fever symptoms. She has a last known well greater than 24 hours ago. Other history is limited as the patient is unable to answer questions. Home Medications Home Medications Medication Instructions Recorded Confirmed Type olopatadine 1 drp OPB BID 02/24/20 06/05/20 History Calcium 600 + D(3) 1 cap PO BID 04/20/20 06/05/20 History acetaminophen 650 mg PO Q6H PRN 04/20/20 06/05/20 History albuterol sulfate [ProAir HFA] 2 puff INHALATION QID 04/20/20 06/05/20 History ascorbic acid (vitamin C) [Vitamin 500 mg PO DAILY 04/20/20 06/05/20 History C] fexofenadine 180 mg PO DAILY 04/20/20 06/05/20 History fluticasone propionate 2 spray INTRANASAL DAILY 04/20/20 06/05/20 History metoprolol succinate 50 mg PO BID 04/20/20 06/05/20 History ondansetron HCl [Zofran] 4 mg PO Q6H PRN 04/20/20 06/05/20 History magnesium oxide 400 mg PO DAILY #15 tab 04/24/20 06/05/20 Rx potassium chloride 20 meq PO DAILY #15 tab 04/24/20 06/05/20 Rx Saccharomyces boulardii [Florastor] 250 mg PO BID 06/05/20 06/05/20 History enoxaparin 40 mg SUBCUT DAILY 06/05/20 06/05/20 History ferrous sulfate [iron] 0 mg PO DAILY 06/05/20 06/05/20 History multivitamin with minerals 1 tab PO DAILY 06/05/20 06/05/20 History sod phos di, mono-K phos mono 1 tab PO DAILY 06/05/20 06/05/20 History [Phosphorous] spironolactone 25 mg PO DAILY 06/05/20 06/05/20 History sumatriptan succinate [Imitrex] 25 mg PO DIRECTED PRN 06/05/20 06/05/20 History vancomycin 125 mg PO DAILY 06/05/20 06/05/20 History Allergies Allergy/AdvReac Type Severity Reaction Status Date / Time Penicillins Allergy Severe ANAPHYLAXIS Verified 04/02/20 21:12 hydrocodone AdvReac Intermediate Nausea Unverified 04/02/20 21:12 [From Lorcet (hydrocodone)] Past Med/Surg History Medical History Bipolar disorder Cirrhosis Depression Emphysema of lung Based on imaging History of CVA (cerebrovascular accident) Osteoporosis Pulmonary nodule 9 mm RML subsolid nodule CT chest 02/29/20. F/U CT recommended 3-6 months Schizophrenia Vitamin D deficiency Surgical History History of appendectomy History of shoulder surgery History of total hip replacement femur fracture one month later with repair, both in 2007 Status post open reduction and internal fixation (ORIF) of fracture Social History Preferred Language: Polish Communication Ability: Effective Head Sawyer Required: No Beliefs That Will Affect Care: None marital status: Current Living Situation: Spouse Other Information That Helps Us Care for You: No Feels Safe at Home: Yes Safety Concerns: Feels Safe At This Time Smoking Status: Unknown if ever smoked Hx Alcohol Use: No Hx Substance Use: No Review of Systems Unobtainable due to cognitive status Physical Exam Vital Signs Vital Signs - 24 hr 06/05/20 00:44 06/05/20 01:27 06/05/20 01:30 Temperature 37.2 C Temperature Source Oral Pulse Rate 99 H 102 H Pulse Rate from SpO2 Sensor Respiratory Rate 16 21 Blood Pressure 162/68 H 162/83 H Blood Pressure Mean 99 96 Pulse Oximetry 97 98 Oxygen Delivery Method Room Air Room Air Sepsis Recent Fever Within 48 Hours Yes Sepsis New/Unexplained Change in Mental Status No Sepsis Action Taken by Nursing No Action Required 06/05/20 02:01 06/05/20 02:30 06/05/20 03:00 Temperature Temperature Source Pulse Rate 101 H 101 H 102 H Pulse Rate from SpO2 Sensor Respiratory Rate 22 20 20 Blood Pressure 145/61 H 146/63 H 145/64 H Blood Pressure Mean 91 97 97 Pulse Oximetry 99 98 97 Oxygen Delivery Method Sepsis Recent Fever Within 48 Hours Sepsis New/Unexplained Change in Mental Status Sepsis Action Taken by Nursing 06/05/20 03:30 06/05/20 04:00 Temperature Temperature Source Pulse Rate 107 H 103 H Pulse Rate from SpO2 Sensor 103 H Respiratory Rate 22 19 Blood Pressure 138/63 126/59 L Blood Pressure Mean 87 78 Pulse Oximetry 95 93 Oxygen Delivery Method Sepsis Recent Fever Within 48 Hours Sepsis New/Unexplained Change in Mental Status Sepsis Action Taken by Nursing VITALS: Vitals are noted on the nurse's note and reviewed by myself. Vital signs stable. GENERAL: Obtunded female who is unable to answer questions HEAD: Normocephalic atraumatic. EARS: External ear normal. External auditory canals clear, tympanic membranes pearly kennedy without erythema or effusion bilaterally. EYES: Pupils equal round and reactive to light and accommodation. Conjunctivae without injection, sclerae without icterus. NOSE: Old appearing blood on outside of right nostril with no active epistaxis MOUTH: Mucous membranes moist. Tonsils are not enlarged. Pharynx without erythema, blood, or exudate. Uvula midline. Airway patent. HEART: Regular rate and rhythm without murmurs gallops or rubs. LUNGS: Clear to auscultation bilaterally without wheezes, rales or rhonchi. No retractions or accessory muscle use. ABDOMEN: Positive normal bowel sounds x 4. Soft without appreciable mass MUSCULOSKELETAL: No muscle atrophy, erythema, or edema noted. NEURO: Patient was not alert or oriented. She will withdraw from pain and will moan. Deep tendon reflexes 2+ throughout. GCS 9 E(2) V(3) M(4) Course Administered Medications Albuterol (Ventolin Hfa) 2 puffs INH QIDR MARIA E Stop: 07/05/20 06:59 Last Admin: 06/05/20 19:50 Dose: 2 puffs Documented by: [id number] Admin: 06/05/20 15:35 Dose: 2 puffs Documented by: [id number] Admin: 06/05/20 11:50 Dose: Not Given Documented by: [id number] Admin: 06/05/20 08:55 Dose: Not Given Documented by: [id number] Ascorbic Acid (Vitamin C) 500 mg PO DAILY MARIA E Stop: 07/05/20 08:59 Last Admin: 06/05/20 08:54 Dose: 500 mg Documented by: [id number] Ferrous Sulfate (Feosol) 325 mg PO DAILY MARIA E Stop: 07/05/20 08:59 Last Admin: 06/05/20 08:54 Dose: 325 mg Documented by: [id number] Fexofenadine HCl (Amber) 180 mg PO DAILY MARIA E Stop: 07/05/20 08:59 Last Admin: 06/05/20 08:54 Dose: 180 mg Documented by: [id number] Fluticasone Propionate (Flonase) 2 sprays NA DAILY MARIA E Stop: 07/05/20 08:59 Last Admin: 06/05/20 08:55 Dose: Not Given Documented by: [id number] Metronidazole (Flagyl) 500 mg in 100 mls @ 100 mls/hr IV Q8H MARIA E Stop: 06/06/20 06:59 Last Admin: 06/05/20 23:39 Dose: 100 mls/hr Documented by: [id number] Infusion: 06/05/20 16:00 Dose: 0 mls/hr Documented by: [id number] Admin: 06/05/20 14:53 Dose: 100 mls/hr Documented by: [id number] Infusion: 06/05/20 10:23 Dose: 0 mls/hr Documented by: [id number] Admin: 06/05/20 09:14 Dose: 100 mls/hr Documented by: [id number] Magnesium Oxide (Mag-Ox) 400 mg PO DAILY MARIA E Stop: 07/05/20 08:59 Last Admin: 06/05/20 08:54 Dose: 400 mg Documented by: [id number] Metoprolol Tartrate (Lopressor) 50 mg PO BID MARIA E Stop: 07/05/20 08:59 Last Admin: 06/05/20 21:32 Dose: 50 mg Documented by: [id number] Admin: 06/05/20 08:54 Dose: 50 mg Documented by: [id number] Miscellaneous (Order Awaiting Action) 1 ea N/A QS MARIA E Stop: 07/05/20 07:59 Last Admin: 06/05/20 23:38 Dose: Not Given Documented by: [id number] Admin: 06/05/20 16:36 Dose: 1 ea Documented by: [id number] Admin: 06/05/20 08:56 Dose: 1 ea Documented by: [id number] Multivitamins/Minerals (Caltrate Plus) 1 tab PO BID MARIA E Stop: 07/05/20 08:59 Last Admin: 06/05/20 21:32 Dose: 1 tab Documented by: [id number] Admin: 06/05/20 08:54 Dose: 1 tab Documented by: [id number] Multivitamins/Minerals (Multivitamin W/ Minerals Tab) 1 tab PO DAILY MARIA E Stop: 07/05/20 08:59 Last Admin: 06/05/20 08:54 Dose: 1 tab Documented by: [id number] Raspberry (Raspberry) 5 ml PO Q6 MARIA E Stop: 06/06/20 05:59 Last Admin: 06/05/20 23:40 Dose: 5 ml Documented by: [id number] Admin: 06/05/20 18:00 Dose: 5 ml Documented by: [id number] Admin: 06/05/20 11:50 Dose: 5 ml Documented by: [id number] Admin: 06/05/20 06:18 Dose: Not Given Documented by: [id number] Saccharomyces Boulardii (Florastor) 250 mg PO BID MARIA E Stop: 07/05/20 08:59 Last Admin: 06/05/20 21:32 Dose: 250 mg Documented by: [id number] Admin: 06/05/20 08:54 Dose: 250 mg Documented by: [id number] Vancomycin HCl (Vancomycin Hcl) 250 mg PO Q6 MARIA E Stop: 06/06/20 05:59 Last Admin: 06/05/20 23:40 Dose: 250 mg Documented by: [id number] Admin: 06/05/20 18:00 Dose: 250 mg Documented by: [id number] Admin: 06/05/20 11:50 Dose: 250 mg Documented by: [id number] Admin: 06/05/20 06:18 Dose: Not Given Documented by: [id number] Discontinued Medications Magnesium Sulfate/Dextrose (Magnesium Sulfate / D5w) 1 gm in 100 mls @ 50 mls/hr IV ONE ONE Stop: 06/05/20 06:29 Last Infusion: 06/05/20 06:29 Dose: 0 mls/hr Documented by: [id number] Infusion: 06/05/20 06:19 Dose: 50 mls/hr Documented by: [id number] Infusion: 06/05/20 05:21 Dose: 0 mls/hr Documented by: [id number] Admin: 06/05/20 04:44 Dose: 50 mls/hr Documented by: [id number] Dextrose/Sodium Chloride (D5w And Nss) 1,000 mls @ 125 mls/hr IV .Q8H MARIA E Stop: 07/05/20 04:29 Last Infusion: 06/05/20 06:19 Dose: 0 mls/hr Documented by: [id number] Infusion: 06/05/20 05:21 Dose: 0 mls/hr Documented by: [id number] Admin: 06/05/20 04:55 Dose: 125 mls/hr Documented by: [id number] Potassium Chloride (K Ash / Wtr) 10 meq in 100 mls @ 100 mls/hr IV Q1H STA Stop: 06/05/20 05:29 Last Infusion: 06/05/20 06:31 Dose: 0 mls/hr Documented by: [id number] Infusion: 06/05/20 05:21 Dose: 0 mls/hr Documented by: [id number] Admin: 06/05/20 04:44 Dose: 100 mls/hr Documented by: [id number] Potassium Chloride/Dextrose/Sod Cl (D5nss + 20meq Kcl) 20 meq in 1,000 mls @ 125 mls/hr IV .Q8H MARIA E Stop: 07/05/20 06:14 Last Infusion: 06/05/20 19:45 Dose: 0 mls/hr Documented by: [id number] Admin: 06/05/20 14:53 Dose: 125 mls/hr Documented by: [id number] Infusion: 06/05/20 14:29 Dose: 125 mls/hr Documented by: [id number] Admin: 06/05/20 06:29 Dose: 125 mls/hr Documented by: [id number] Potassium Phosphate 15 mmol/ (Sodium Chloride) 255 mls @ 88 mls/hr IV TODAY@1000 MARIA E Stop: 06/05/20 12:54 Last Infusion: 06/05/20 13:45 Dose: 0 mls/hr Documented by: [id number] Admin: 06/05/20 10:23 Dose: 88 mls/hr Documented by: [id number] Loperamide HCl (Imodium) 2 mg PO NOW STA Stop: 06/05/20 16:12 Last Admin: 06/05/20 16:35 Dose: 2 mg Documented by: [id number] Potassium Chloride (Luma Ciel Elix) 20 meq PO NOW STA Stop: 06/05/20 04:31 Last Admin: 06/05/20 05:21 Dose: Not Given Documented by: [id number] Critical Care Time I have personally spent greater than 30 minutes of critical care time in the direct management of this patient. This includes bedside care, interpretation of diagnostic studies, and testing, discussion with consultants, patient, and family members, and other required patient management activities. This 30 minutes is in excess of all separately billable procedures. Medical Decision Making Differential Diagnosis Differential diagnosis: Etiologies such as sepsis, stroke, elevated ammonia, UTI, pneumonia, bacteremia, metabolic process, electrolyte abnormalities, cardiac sources, intracerebral event, intra-abdominal process, toxicological process, neurologic process, as well as others were entertained. Laboratory Data Result diagrams: 06/05/20 07:59 06/05/20 13:11 Lab Results 06/05/20 06/05/20 06/05/20 Range/Units 00:32 00:32 00:32 WBC 10.15 (4.8-10.8) K/uL RBC 4.59 (4.2-5.4) M/uL Hgb 14.0 (12.0-16.0) g/dL Hct 42.8 (37-47) % MCV 93.2 (80-100) fL MCH 30.5 (25-34) pg MCHC 32.7 (32-36) g/dL RDW Std Deviation 54.5 H (36.4-46.3) fL RDW Coeff of Dewayne 15.8 H (11.5-14.5) % Plt Count 79 L (130-400) K/uL MPV 12.0 H (7.4-10.4) fL Immature Gran % (Auto) 0.3 % Neut % (Auto) 89.6 % Lymph % (Auto) 3.7 % Power % (Auto) 6.3 % Eos % (Auto) 0.0 % Baso % (Auto) 0.1 % Neut # (Auto) 9.09 H (1.4-6.5) K/uL Lymph # (Auto) 0.38 L (1.2-3.4) K/uL Power # (Auto) 0.64 H (0.11-0.59) K/uL Eos # (Auto) 0.00 (0-0.5) K/uL Baso # (Auto) 0.01 (0-0.2) K/uL Immature Gran # (Auto) 0.03 H (0.00-0.02) K/uL Platelet Estimate Decreased L (Normal) Ovalocytes 1+ PT 13.1 H (9.0-12.0) Seconds INR 1.3 H (0.9-1.1) APTT 32.3 H (21.0-31.0) Seconds PTT Ratio 1.2 Sodium 140 (136-145) mmol/L Potassium 3.2 L (3.5-5.1) mmol/L Chloride 108 H (98-107) mmol/L Carbon Dioxide 21 (21-32) mmol/L Anion Gap 11.0 (3-11) BUN 15 (7-18) mg/dl Creatinine 0.59 L (0.6-1.2) mg/dl Est Cr Clr Drug Dosing Not Reportable Est GFR ( Amer) 115.5 Est GFR (Non-Af Amer) 99.6 BUN/Creatinine Ratio 25.3 H (10-20) Glucose 152 H (70-99) mg/dl Lactate (0.4-2.0) mmol/L Calcium 8.6 (8.5-10.1) mg/dl Magnesium 1.7 L (1.8-2.4) mg/dl Total Bilirubin 1.3 H (0.2-1) mg/dl AST 42 H (15-37) U/L ALT 55 (12-78) U/L Alkaline Phosphatase 155 H (45-117) U/L Ammonia (11-32) umol/L Troponin I < 0.015 (0-0.045) ng/ml Total Protein 7.5 (6.4-8.2) gm/dl Albumin 3.1 L (3.4-5.0) gm/dl Globulin 4.4 H (2.5-4.0) gm/dl Albumin/Globulin Ratio 0.7 L (0.9-2) Lipase 31 L (73-393) U/L TSH 0.801 (0.300-4.500) uIu/ml Urine Color Urine Appearance (Clear) Urine pH (4.5-7.5) Ur Specific [place] (1.000-1.030) Urine Protein (Negative) Urine Glucose (UA) (Negative) Urine Ketones (Negative) Urine Blood (Negative) Urine Nitrite (Negative) Urine Bilirubin (Negative) Urine Urobilinogen (Negative) Ur Leukocyte Esterase (Negative) Urine WBC (Auto) (0-5) /hpf Urine RBC (Auto) (0-4) /hpf U Hyaline Cast (Auto) (0-5) /lpf U Epithel Cells (Auto) (0-5) /lpf Urine Bacteria (Auto) (Negative) Ur Renal Epithelial Cell Urine Mucus (None Prsent) Stl C. diff Tox B Gene (Neg) Stl C.difficile Tox A&B (Negative) 06/05/20 06/05/20 06/05/20 Range/Units 01:35 01:35 01:43 WBC (4.8-10.8) K/uL RBC (4.2-5.4) M/uL Hgb (12.0-16.0) g/dL Hct (37-47) % MCV (80-100) fL MCH (25-34) pg MCHC (32-36) g/dL RDW Std Deviation (36.4-46.3) fL RDW Coeff of Dewayne (11.5-14.5) % Plt Count (130-400) K/uL MPV (7.4-10.4) fL Immature Gran % (Auto) % Neut % (Auto) % Lymph % (Auto) % Power % (Auto) % Eos % (Auto) % Baso % (Auto) % Neut # (Auto) (1.4-6.5) K/uL Lymph # (Auto) (1.2-3.4) K/uL Power # (Auto) (0.11-0.59) K/uL Eos # (Auto) (0-0.5) K/uL Baso # (Auto) (0-0.2) K/uL Immature Gran # (Auto) (0.00-0.02) K/uL Platelet Estimate (Normal) Ovalocytes PT (9.0-12.0) Seconds INR (0.9-1.1) APTT (21.0-31.0) Seconds PTT Ratio Sodium (136-145) mmol/L Potassium (3.5-5.1) mmol/L Chloride (98-107) mmol/L Carbon Dioxide (21-32) mmol/L Anion Gap (3-11) BUN (7-18) mg/dl Creatinine (0.6-1.2) mg/dl Est Cr Clr Drug Dosing Est GFR ( Amer) Est GFR (Non-Af Amer) BUN/Creatinine Ratio (10-20) Glucose (70-99) mg/dl Lactate 2.8 H* (0.4-2.0) mmol/L Calcium (8.5-10.1) mg/dl Magnesium (1.8-2.4) mg/dl Total Bilirubin (0.2-1) mg/dl AST (15-37) U/L ALT (12-78) U/L Alkaline Phosphatase (45-117) U/L Ammonia < 10.0 L (11-32) umol/L Troponin I (0-0.045) ng/ml Total Protein (6.4-8.2) gm/dl Albumin (3.4-5.0) gm/dl Globulin (2.5-4.0) gm/dl Albumin/Globulin Ratio (0.9-2) Lipase (73-393) U/L TSH (0.300-4.500) uIu/ml Urine Color Urine Appearance (Clear) Urine pH (4.5-7.5) Ur Specific [place] (1.000-1.030) Urine Protein (Negative) Urine Glucose (UA) (Negative) Urine Ketones (Negative) Urine Blood (Negative) Urine Nitrite (Negative) Urine Bilirubin (Negative) Urine Urobilinogen (Negative) Ur Leukocyte Esterase (Negative) Urine WBC (Auto) (0-5) /hpf Urine RBC (Auto) (0-4) /hpf U Hyaline Cast (Auto) (0-5) /lpf U Epithel Cells (Auto) (0-5) /lpf Urine Bacteria (Auto) (Negative) Ur Renal Epithelial Cell Urine Mucus (None Prsent) Stl C. diff Tox B Gene Positive Cdiff Gene H (Neg) Stl C.difficile Tox A&B Positive Cdiff Toxin A* (Negative) 06/05/20 06/05/20 Range/Units 02:19 03:45 WBC (4.8-10.8) K/uL RBC (4.2-5.4) M/uL Hgb (12.0-16.0) g/dL Hct (37-47) % MCV (80-100) fL MCH (25-34) pg MCHC (32-36) g/dL RDW Std Deviation (36.4-46.3) fL RDW Coeff of Dewayne (11.5-14.5) % Plt Count (130-400) K/uL MPV (7.4-10.4) fL Immature Gran % (Auto) % Neut % (Auto) % Lymph % (Auto) % Power % (Auto) % Eos % (Auto) % Baso % (Auto) % Neut # (Auto) (1.4-6.5) K/uL Lymph # (Auto) (1.2-3.4) K/uL Power # (Auto) (0.11-0.59) K/uL Eos # (Auto) (0-0.5) K/uL Baso # (Auto) (0-0.2) K/uL Immature Gran # (Auto) (0.00-0.02) K/uL Platelet Estimate (Normal) Ovalocytes PT (9.0-12.0) Seconds INR (0.9-1.1) APTT (21.0-31.0) Seconds PTT Ratio Sodium (136-145) mmol/L Potassium (3.5-5.1) mmol/L Chloride (98-107) mmol/L Carbon Dioxide (21-32) mmol/L Anion Gap (3-11) BUN (7-18) mg/dl Creatinine (0.6-1.2) mg/dl Est Cr Clr Drug Dosing Est GFR ( Amer) Est GFR (Non-Af Amer) BUN/Creatinine Ratio (10-20) Glucose (70-99) mg/dl Lactate 1.6 (0.4-2.0) mmol/L Calcium (8.5-10.1) mg/dl Magnesium (1.8-2.4) mg/dl Total Bilirubin (0.2-1) mg/dl AST (15-37) U/L ALT (12-78) U/L Alkaline Phosphatase (45-117) U/L Ammonia (11-32) umol/L Troponin I (0-0.045) ng/ml Total Protein (6.4-8.2) gm/dl Albumin (3.4-5.0) gm/dl Globulin (2.5-4.0) gm/dl Albumin/Globulin Ratio (0.9-2) Lipase (73-393) U/L TSH (0.300-4.500) uIu/ml Urine Color Dark Yellow Urine Appearance Clear (Clear) Urine pH 5.0 (4.5-7.5) Ur Specific [place] 1.025 (1.000-1.030) Urine Protein Negative (Negative) Urine Glucose (UA) Negative (Negative) Urine Ketones Negative (Negative) Urine Blood 1+ H (Negative) Urine Nitrite Negative (Negative) Urine Bilirubin Negative (Negative) Urine Urobilinogen Negative (Negative) Ur Leukocyte Esterase Negative (Negative) Urine WBC (Auto) 1-5 (0-5) /hpf Urine RBC (Auto) 0-4 (0-4) /hpf U Hyaline Cast (Auto) 5-10 H (0-5) /lpf U Epithel Cells (Auto) >30 H (0-5) /lpf Urine Bacteria (Auto) Negative (Negative) Ur Renal Epithelial Cell Not Reportable Urine Mucus Present A (None Prsent) Stl C. diff Tox B Gene (Neg) Stl C.difficile Tox A&B (Negative) Imaging Data Radiologist's Impression: Preliminary Findings Only See Final Report For Complete Findings CT HEAD: Motion. No obvious acute intracranial process. Involutional changes with small vessel disease. ECG Data Attestation: I personally reviewed and interpreted this ECG as follows: Indication: + altered mental status Additional Comments: Sinus rhythm with Premature atrial complexes @99bpm Nonspecific ST abnormality Prolonged QT/QTc at 442/567 When compared with ECG of 20-APR-2020 00:51, Premature atrial complexes are now Present MDM Narrative Physical exam and history were performed. Nursing notes, EMR, and Medication List were personally reviewed. Patient appears to have altered mental status and episodes of somnolence. She is minimally responsive to painful stimuli. The patient was covered in feces upon arrival, and nursing did clean the patient. On exam she does not have any significant findings, and almost all the history is provided by paramedics and the patient's . IV access was established and labs were obtained. Stool was sent to the lab for additional studies. An order was placed for continuous cardiac monitoring. The monitor shows a rate of 75 with normal sinus rhythm. The patient's blood work is as above and was reviewed. She does not have a significantly elevated white blood cell count or gross anemia. INR is 1.3, and her ammonia level is less than 10. Initial lactic is elevated at 2.8, concerning for sepsis. Stool did return positive for C. difficile. Transaminases are not diagnostic. Because of her symptoms CT scan of the head was performed and is without acute findings per my radiology interpretation. Patient was reevaluated multiple times throughout the course of her stay. She did not have any significant improvement despite monitoring. The patient's recent history is quite complicated, and I did discuss her case with the on-call hospitalist. I will defer antibiotic treatment to their preference, as she has evidently complicated C. difficile history, and her symptoms today could be related to sepsis from this. Additionally patient does have a mental health history and may not be compliant with her medication. According to the drug monitoring program she does have a small amount of opioids at home, however intentional overdose does not seem to be distinctly consistent with in the history. Regardless the patient will need further care in the hospital. Please see the hospitalist dictation for further patient course, plan, disposition. The chart was completed utilizing [employer] Voice Recognition Software. G rammatical errors, random word insertions, pronoun errors, and incomplete sentences are an occasional consequence of this system due to software limitations, ambient noise, and hardware issues. Any formal questions or concerns about the content, text, or information contained within the body of this dictation should be directly addressed to the provider for clarification. . Impression & Plan AMS (altered mental status), C. difficile diarrhea, Sepsis, Elevated lactic acid level Discharge Plan Visit Data *Final* Discharge Date/Time: 06/05/20 05:15 Chief Complaint: Altered Mental Status Stated Complaint: ALTERED MENTAL STATUS ED Provider: Desi Bright ED Midlevel Provider: Sidney Koenig Discharge Problem: AMS (altered mental status), C. difficile diarrhea, Sepsis, Elevated lactic acid level Patient Disposition: Admitted As Inpatient Discharge Instructions Interventions: ED Discharge Assessment Last Done: 06/05/20 05:15 Discharge Problem: AMS (altered mental status) Qualifiers: Altered mental status type: somnolence Qualified Code(s): R40.0 - Somnolence Sepsis Qualifiers: Sepsis type: sepsis due to unspecified organism
[2020-06-05] MEDS ORDERED: POTASSIUM CHLORIDE / WTR 10 MEQ/100 ML PLCT IV STA (04:30)
[2020-06-05] MEDS ORDERED: MAGNESIUM SULFATE / D5W 1 GM/100 ML BAG IV ONE (04:30)
[2020-06-05] MEDS ORDERED: D5W AND NSS 1,000 ML IV SCH (04:30)
[2020-06-05] MEDS ORDERED: POTASSIUM CHLORIDE 20 MEQ/15 ML UDC PO STA (04:30)
[2020-06-05] MEDS ORDERED: SUMAtriptan succinate 25 MG TAB PO PRN (05:51)
[2020-06-05] MEDS ORDERED: ACETAMINOPHEN 325 MG TAB PO PRN ×2 (05:51→16:11)
[2020-06-05] MEDS ORDERED: NITROGLYCERIN SL 0.4 MG/TAB TAB SL PRN (05:51)
[2020-06-05] MEDS: RASPBERRY SYRUP 5 ML UDP PO SCH ×4 (06:18→23:40)
[2020-06-05] MEDS: VANCOMYCIN HCL 250 MG/5 ML SOLN PO SCH ×4 (06:18→23:40)
--- NOTE | 2020-06-05 06:22 | History and Physical Report ---
DATE OF ADMISSION: 06/05/2020 CHIEF COMPLAINT: Altered mental status. HISTORY OF PRESENT ILLNESS: A 60-year-old female with past medical history significant for recurrent C. diff colitis, hypertension, mood disorder, schizophrenia, cirrhosis as per records, past tobacco abuse as per records, chronic thrombocytopenia, history of drug abuse as per records, history of recent left hip fracture status post surgery, history of UTIs, acute sinusitis, major depression, history of migraines. The patient lives with her . The patient recently admitted on 04/20/2020 with recurrent C. diff colitis and discharged to [facility] on 04/24/2020. She was treated with long course of p.o. vancomycin. Also seen by GI at that time. As per the discharge summary, she was supposed to follow with GI before she stopped p.o. vancomycin. The patient got discharged from [facility] around May 07 as per and she finished her vancomycin about couple of weeks ago. Apparently, she was doing fine until yesterday when she was found to be lethargic, not getting up from the bed, he checked her again, and she was still drowsy and not speaking so he called EMS. When EMS arrived, as per the ER physician, she was found with full of stools. In the ER, it took about 45 minutes to clean her up. Currently, still drowsy, opens eyes on calling and when asked how she is doing and anything bothering her, she is says no, but could not get any history from the patient.As per the , since she came from [facility], she is walking with a walker. She is eating okay. No nausea, no vomiting, no complaints of chest, headache, neck pain or chest pain or abdominal pain, no fever, no chills. She has some dry cough today. Could not get any history from the patient. C. diff is positive in the ER again. Hemodynamics are stable. ALLERGIES: PENICILLIN AND HYDROCODONE. PAST MEDICAL HISTORY: As mentioned above. PAST SURGICAL HISTORY: Femur repair in 2007, appendectomy, left femur repair in January 2020. MEDICATIONS: Currently seems to be on Tylenol 650 mg p.o. q. 6 hours p.r.n., albuterol 2 puffs inhalation q.i.d., vitamin C 500 mg p.o. daily, calcium plus vitamin D one capsule b.i.d., ferrous sulfate 1 tablet daily, fexofenadine 180 mg p.o. daily, Flonase 2 sprays into each nostril daily, magnesium oxide 400 mg p.o. daily, metoprolol succinate 50 mg p.o. b.i.d., multivitamin with minerals 1 tablet daily, olopatadine one drop ophthalmic b.i.d., Zofran 4 mg p.o. q. 6 hours p.r.n., potassium chloride 20 mEq p.o. daily, Florastor 250 mg p.o. b.i.d., Neutra-Phos 1 capsule daily, spironolactone 25 mg p.o. daily, sumatriptan 25 mg p.r.n. FAMILY HISTORY: Significant for mother had colon cancer, diabetes. Father had TX at age of 48. Sister has lung cancer. Brother has CAD. SOCIAL HISTORY: , lives with . Smoked 1 pack a day for 28 years. No alcohol use, no drug use. REVIEW OF SYMPTOMS: As per HPI. Rest of review of symptoms negative. PHYSICAL EXAMINATION: GENERAL: The patient is of moderate build, somewhat lethargic. VITAL SIGNS: Temperature 37.2, pulse 107, respiratory rate 22, blood pressure 113/63, oxygen 95% on room air. HEENT: No pallor, no icterus. Pupils equal, round, reactive to light. NECK: No JVD, no neck masses. CARDIOVASCULAR: S1, S2 heard, regular rate and rhythm, no murmur, no gallop. RESPIRATORY SYSTEM: Normal AP diameter. No accessory muscle use. No wheezing. No crackles. ABDOMEN: Soft, bowel sounds present. Mild abdominal discomfort. No guarding. No rigidity. CENTRAL NERVOUS SYSTEM: Drowsy, opens eyes on calling, but not answering any questions except nodding head, moves extremities to stimuli. EXTREMITIES: No edema, no erythema. LABORATORY DATA: WBC 10, hemoglobin 14, hematocrit 42.8, platelets 79. PT 13.1, INR 1.3, APTT 32.3. Sodium 140, potassium 3.2, chloride 108, bicarbonate 21, BUN 15, creatinine 0.5, serum glucose 152. Lactate 1.6, magnesium 1.7, total bilirubin 1.3, AST 42, ALT 55, alkaline phosphatase 155. Ammonia less than 10. Lipase 31. TSH 0.8. Urinalysis negative. Stool C. diff positive for gene and toxin. IMAGING: CT of the head, no acute findings on preliminary report. EKG: Sinus rhythm with PACs at a rate of 99. Prolonged QT at 567. ASSESSMENT AND PLAN: This is a 60-year-old female who presents with altered mental status. 1. Altered mental status, mostly metabolic from her C. difficile colitis. The patient has history of schizophrenia and bipolar. Currently, seems to be not on medications. Her C.diff came back positive. Ammonia level is less than 10.Will get ABG. We start IV fluids, p.o. vancomycin and IV Flagyl. Lactate is normal. We will monitor in the med/surg tele. We will consult GI in a.m. Diet, clear liquid diet if tolerated. 2. Prolonged QTc: Avoid any QT prolonging drugs. 3. Hypokalemia and hypomagnesemia: Will replace and follow the repeat electrolytes, also check phosphorus levels. 4. Thrombocytopenia: Seems to be chronic from BRINK, seems to be chronic, but seems to be somewhat more pronounced, will follow the repeat labs. 5.Cirrhosis as per records. Follow up with GI. 6. History of past tobacco abuse. 7. Hypertension: Toprol-XL with holding parameters. Question of being on Aldactone, which is held currently. 8. Migraine: Sumatriptan p.r.n. 9. Deep venous thrombosis prophylaxis: We will place sequential compression devices for now. 9. Disposition: Monitor in med/surg tele. Level 1 full code. PT and OT prior to discharge. Social Service to help with discharge planning. Addendum: as Patient is drowsy and not able to take po, ordered ng tube to give po vancomycin and other po meds. MTDD
[2020-06-05] MEDS: D5NSS + 20MEQ KCL 20 MEQ/1,000 ML BAG IV SCH ×2 (06:29→14:53)
--- NOTE | 2020-06-05 06:42 | CT Scan Report ---
CT head/brain wo con CT DOSE: 614.27 mGy.cm HISTORY: Mental status change Altered mental status TECHNIQUE: Multiaxial CT images of the head were performed without the use of intravenous contrast. A dose lowering technique was utilized adhering to the principles of ALARA. Comparison: 04/20/2020 Findings: The paranasal sinuses and mastoid air cells are clear. The calvarium and skull base are int act. The ventricles and sulci are within normal limits. There is no mass, hematoma, midline shift, or acute infarct. Impression: No acute intracranial abnormality. Age-related atrophy and chronic small vessel change ACT 112: Negative or not required by law. The above report was generated using voice recognition software. It may contain grammatical, syntax or spelling errors. Electronically signed by: Faisal Chung M.D. 06/05/2020 6:41 AM
--- NOTE | 2020-06-05 07:34 | CT Scan Report ---
CT SCAN OF THE ABDOMEN AND PELVIS WITHOUT CONTRAST CLINICAL HISTORY: Abdominal pain. C. difficile. COMPARISON STUDY: 04/20/2020 TECHNIQUE: CT scan of the abdomen and pelvis was performed from the lung bases to the proximal femurs . Images are reviewed in the axial, sagittal, and coronal planes. IV contrast was not administered fo r this examination. A dose lowering technique was utilized adhering to the principles of ALARA. CT DOSE: 427.31 mGy.cm FINDINGS: Lower chest: There is respiratory motion artifact. There are dependent bilateral lung cyst/honeycombi ng Liver: The liver has a cirrhotic morphology. No focal masses are visualized in this noncontrast study . Gallbladder: Distended. Spleen: Enlarged measuring 14.7 cm Pancreas: Unremarkable. Adrenal glands: Unremarkable. Kidneys: No renal, ureteral, or bladder calculi are visualized Bowel: There is moderate patterson colonic wall thickening consistent with a diffuse colitis. Peritoneum: There is no intraperitoneal free air or abdominal ascites. Vasculature: There are extensive right-sided abdominal varices. Adenopathy: None. Pelvic viscera: The uterus is surgically absent Skeletal structures: There is a healing left inferior pubic ramus fracture. There are postsurgical ch anges of a left hip arthroplasty. IMPRESSION: 1. Examination limited due to the lack of intravenous and oral contrast 2. Hepatic cirrhosis with sequela of portal hypertension with splenomegaly and multiple varices 3. No evidence of bowel obstruction. No evidence of free air 4. Diffuse colonic wall thickening indicative of a pancolitis 5. No renal, ureteral, or bladder calculi identified 6. Healing fracture left inferior pubic ramus ACT 112: Negative or not required by law. Electronically signed by: Bob Duque M.D. 06/05/2020 7:32 AM
[2020-06-05 08:15] LABS: Base Excess ABG 0.9 mEq/L (-9-1.8); HCO3 ABG 24 mmol/L (19-24); Oxygen Saturation ABG 96.7 % (90-95); PCO2 ABG 33 mmHg (35-46); PO2 ABG 80 mmHg (80-95); pH ABG 7.48 (7.35-7.45)
[2020-06-05] MEDS ORDERED: PNEUMOCOCCAL Polysaccharide Vaccine 25mcg/0.5mL vial/Syr IM ONE (08:15)
[2020-06-05 08:17] LABS: Allen Test Pos (Pos)
[2020-06-05 08:38] LABS: BUN Creatinine Ratio 30.6 (10-20); Calcium 8.6 mg/dl (8.5-10.1); Creatinine Clr Calc Pharmacy 130.3 ml/min; Est GFR (African American) 123.6; Est GFR (Non-African American) 106.6; Hematocrit (blood only) 36.8 % (37-47); Hemoglobin 12.3 g/dL (12.0-16.0); Mean Corpuscular Hemoglobin 31.1 pg (25-34); Mean Corpuscular Hgb Conc 33.4 g/dL (32-36); Mean Corpuscular Volume 93.2 fL (80-100); Mean Platelet Volume 12.5 fL (7.4-10.4); Phosphorus 2.4 mg/dl (2.5-4.9); Platelet Count 83 K/uL (130-400); Potassium 3.1 mmol/L (3.5-5.1); RDW Coefficient of Variation 16.1 % (11.5-14.5); RDW Standard Deviation 55.2 fL (36.4-46.3); Red Blood Count 3.95 M/uL (4.2-5.4); White Blood Count 9.91 K/uL (4.8-10.8)
[2020-06-05 08:39] LABS: Basophils # (auto) 0.02 K/uL (0-0.2); Basophils % (auto) 0.2 %; Eosinophils # (auto) 0.01 K/uL (0-0.5); Eosinophils % (auto) 0.1 %; Immature Granulocytes # (auto) 0.02 K/uL (0.00-0.02); Immature Granulocytes % (auto) 0.2 %; Lymphocytes # (auto) 0.78 K/uL (1.2-3.4); Lymphocytes % (auto) 7.9 %; Monocytes # (auto) 0.94 K/uL (0.11-0.59); Monocytes % (auto) 9.5 %; Neutrophils # (auto) 8.14 K/uL (1.4-6.5); Neutrophils % (auto) 82.1 %
[2020-06-05] MEDS: MAGNESIUM OXIDE 400 MG TAB PO SCH (08:54)
[2020-06-05] MEDS: SACCHAROMYCES BOULARDII 250 MG CAP PO SCH ×2 (08:54→21:32)
[2020-06-05] MEDS: FEXOFENADINE HCL 180 MG TAB PO SCH (08:54)
[2020-06-05] MEDS: METOPROLOL TARTRATE 50 MG TAB PO SCH ×2 (08:54→21:32)
[2020-06-05] MEDS: FERROUS SULFATE 325 MG TAB PO SCH (08:54)
[2020-06-05] MEDS: CALCIUM 600MG + VIT D 400 IU TAB PO SCH ×2 (08:54→21:32)
[2020-06-05] MEDS: CEROVITE ADV FORMULA TAB PO SCH (08:54)
[2020-06-05] MEDS: ASCORBIC ACID 500 MG TAB PO SCH (08:54)
[2020-06-05] MEDS: FLUTICASONE PROPIONATE NA SPR 16 GM BTL SCH (08:55)
[2020-06-05] MEDS: ALBUTEROL HFA 8 GM INHALER INH SCH ×5 (08:55→19:50)
[2020-06-05] MEDS: metroNIDAZOLE 500 MG/100 ML BAG IV SCH ×3 (09:14→23:39)
[2020-06-05] MEDS ORDERED: POTASSIUM PHOS 3 MMOL/1 ML INFUSION IV STA (09:43)
[2020-06-05] MEDS ORDERED: POTASSIUM PHOSPHATE 15 MMOL in SODIUM CHLORIDE 0.9% 250 ML IV SCH (10:00)
--- NOTE | 2020-06-05 10:08 | Gastrointestinal Consultation ---
Date of Consultation June 05, 2020 Assessment & Plan (1) C. difficile colitis: 60 y/o female with PMhx HTN, schizophrenia, admitted with AMS, with recurrent + c diff (4th + test since February 2020), ? whether full taper of vanco was completed. History limited from pt due to lack of hearing aids, lethargy, poorly fitting dentures; majority of history gathered from chart. - If she did complete full tx each time and she indeed has a 3rd recurrence, would consider Dificid vs. fecal transplant for her recurrent c. diff. - Can continue vancomycin/Flagyl for the present time - Please monitor and document GI output (including frequency, consistency) - Given AMS, consider urine tox screen. - Will defer management of e-lyte imbalances to primary team Regarding her ? cirrhosis, recommend outpt GI f/u as previously stated in previous admission. Would recommend out pt EGD (for variceal screen) and colonoscopy (screening for colon CA but also to f/u on colitis seen on several CTs) Thank you for allowing us to participate in the care of this patient. Please call with any acute changes, questions or concerns. Please see addendum below with additional recommendation from my supervising physician. Supervising Physician Co-Signing Physician Notes Agree with assessment and plan in its entirety as per [facility] History of Present Illness Reason for Consultation: recurrent c diff Attending Physician: Joshua David MD History of Present Illness This is a 60-year-old female pt with PMHx HTN, schizophrenia, bipolar, chronic thrombocytopenia, h/o drug abuse as per records, ? cirrhosis, recent hip fx, admitted for altered mental status after reported increased lethargy. On arrival WBC 10, HGB 14, plts 79, INR 1.3, Na 140, K 3.2, BUN 15, cr 0.5, lactate 1.6, AST 42, ALT 55, ALP 155, tbili 1.3, lipase 31, Mg 1.7, stool + for c diff toxin. Noncon CTAP with portal HTN, splenomegaly, varices, no bowel obstruction, diffuse colonic wall thickening indicative of patterson colitis. She was placed on oral vancomycin and IV Flagyl. Today labs are stable. Pt seen by GI last admission in April 20, 2020 and was found to be + for c diff - was dc'd on prolonged vanco taper (125 mg QID x 14 days, then 1 daily x 4 weeks) along with Questran 4 mg BID, and then had been admitted to [facility]) from 04/24-around 05/07. Prior admission in February 2020 also + for c. diff, seen by GI, and placed on vanco taper. It's unclear whether she finished her taper or her symptoms improved on it; pt lethargic today and cannot give a good history; she is very hard of hearing will poor fitting dentures. She's unable to tell me how much diarrhea she has daily, though nursing notes loose brown stool several times a day here. Pt states she has some abd discomfort but can't explain further (timing, severity, quality, etc). CT fidings of colitis were present on previous imaging earlier this year. She's never had EGD/colonoscopy. For ? cirrhosis, it was recommended to have f/u with GI as an outpt but has not yet been done. GI HPI 04/20/20: 60 year old female who was brought in for altered mental status and diarrhea. The patient is unable to provide any historical information this morning while I was seeing her. The patient was recently admitted to the hospital for several orthopedic problems and found to have C. difficile infection. He was placed on to a prolonged vancomycin taper by my partner Dr. Solorio and infectious disease service. It appears that the patient has been empirically started on metronidazole in addition to vancomycin although no C. difficile PCR was ordered. Other coexisting history includes a potential for cirrhosis of the liver although no formal work-up has been performed yet. Allergies Allergy/AdvReac Type Severity Reaction Status Date / Time Penicillins Allergy Severe ANAPHYLAXIS Verified 04/02/20 21:12 hydrocodone AdvReac Intermediate Nausea Unverified 04/02/20 21:12 [From Lorcet (hydrocodone)] Home Medications Home Medications Medication Instructions Recorded Confirmed Type olopatadine 1 drp OPB BID 02/24/20 06/05/20 History Calcium 600 + D(3) 1 cap PO BID 04/20/20 06/05/20 History acetaminophen 650 mg PO Q6H PRN 04/20/20 06/05/20 History albuterol sulfate [ProAir HFA] 2 puff INHALATION QID 04/20/20 06/05/20 History ascorbic acid (vitamin C) [Vitamin 500 mg PO DAILY 04/20/20 06/05/20 History C] fexofenadine 180 mg PO DAILY 04/20/20 06/05/20 History fluticasone propionate 2 spray INTRANASAL DAILY 04/20/20 06/05/20 History metoprolol succinate 50 mg PO BID 04/20/20 06/05/20 History ondansetron HCl [Zofran] 4 mg PO Q6H PRN 04/20/20 06/05/20 History magnesium oxide 400 mg PO DAILY #15 tab 04/24/20 06/05/20 Rx potassium chloride 20 meq PO DAILY #15 tab 04/24/20 06/05/20 Rx Saccharomyces boulardii [Florastor] 250 mg PO BID 06/05/20 06/05/20 History enoxaparin 40 mg SUBCUT DAILY 06/05/20 06/05/20 History ferrous sulfate [iron] 0 mg PO DAILY 06/05/20 06/05/20 History multivitamin with minerals 1 tab PO DAILY 06/05/20 06/05/20 History sod phos di, mono-K phos mono 1 tab PO DAILY 06/05/20 06/05/20 History [Phosphorous] spironolactone 25 mg PO DAILY 06/05/20 06/05/20 History sumatriptan succinate [Imitrex] 25 mg PO DIRECTED PRN 06/05/20 06/05/20 Histo ry vancomycin 125 mg PO DAILY 06/05/20 06/05/20 History Patient History Medical History Bipolar disorder Cirrhosis Depression Emphysema of lung Based on imaging History of CVA (cerebrovascular accident) Osteoporosis Pulmonary nodule 9 mm RML subsolid nodule CT chest 02/29/20. 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 Beliefs That Will Affect Care: None marital status: Current Living Situation: Spouse Other Information That Helps Us Care for You: No Feels Safe at Home: Yes Safety Concerns: Feels Safe At This Time Smoking Status: Unknown if ever smoked Hx Alcohol Use: No Hx Substance Use: No Review of Systems Review of Systems: Unobtainable due to cognitive status Physical Exam Constitutional: + ill appearing; no acute distress lethargic Respiratory: normal respiratory effort, lungs clear to auscultation Cardiovascular: RRR, no murmur, no edema Gastrointestinal (Abdomen): normal bowel sounds, soft, nontender, no hepatosplenomegaly Inspection/Auscultation: abdomen not distended Skin: no rashes, warm and dry Psychiatric: Awakens to voice, poor fitting dentures make speaking difficult to understand; mostly yes or no answers (or sometimes doesn't answer) Results & Data ([facility]) Vital Signs (Past 12 Hours) Vital Signs Temp Pulse Pulse Resp BP BP Pulse Ox 06/05/20 07:09 37.1 C 98 H 20 143/72 H 97 06/05/20 06:08 37.3 C 94 H 18 126/62 93 06/05/20 05:04 37.4 C 06/05/20 05:00 91 H 20 114/46 L 92 06/05/20 04:30 104 H 21 131/59 L 92 06/05/20 04:00 103 H 19 126/59 L 93 06/05/20 03:30 107 H 22 138/63 95 06/05/20 03:00 102 H 20 145/64 H 97 06/05/20 02:30 101 H 20 146/63 H 98 06/05/20 02:01 101 H 22 145/61 H 99 06/05/20 01:30 102 H 21 162/83 H 98 06/05/20 00:44 37.2 C 99 H 16 162/68 H 97 Laboratory Results 06/05/20 06/05/20 06/05/20 Range/Units 13:11 13:11 07:59 WBC (4.8-10.8) K/uL RBC (4.2-5.4) M/uL Hgb (12.0-16.0) g/dL Hct (37-47) % MCV (80-100) fL MCH (25-34) pg MCHC (32-36) g/dL RDW Std Deviation (36.4-46.3) fL RDW Coeff of Dewayne (11.5-14.5) % Plt Count (130-400) K/uL MPV (7.4-10.4) fL Immature Gran % (Auto) % Neut % (Auto) % Lymph % (Auto) % Elk % (Auto) % Eos % (Auto) % Baso % (Auto) % Neut # (Auto) (1.4-6.5) K/uL Lymph # (Auto) (1.2-3.4) K/uL Elk # (Auto) (0.11-0.59) K/uL Eos # (Auto) (0-0.5) K/uL Baso # (Auto) (0-0.2) K/uL Immature Gran # (Auto) (0.00-0.02) K/uL Platelet Estimate (Normal) Ovalocytes PT (9.0-12.0) Seconds INR (0.9-1.1) APTT (21.0-31.0) Seconds PTT Ratio ABG pH (7.35-7.45) ABG pCO2 (35-46) mmHg ABG pO2 (80-95) mmHg ABG HCO3 (19-24) mmol/L ABG O2 Saturation (90-95) % ABG Base Excess (-9-1.8) mEq/L Alex Test (Pos) Barometric Pressure mm/Hg Oxygen Given Sodium 139 (136-145) mmol/L Potassium 3.5 (3.5-5.1) mmol/L Chloride 109 H (98-107) mmol/L Carbon Dioxide 23 (21-32) mmol/L Anion Gap 7.0 (3-11) BUN 14 (7-18) mg/dl Creatinine 0.55 L (0.6-1.2) mg/dl Est Cr Clr Drug Dosing 113.7 Est GFR ( Amer) 118.2 Est GFR (Non-Af Amer) 101.9 BUN/Creatinine Ratio 24.7 H (10-20) Glucose 133 H (70-99) mg/dl Lactate (0.4-2.0) mmol/L Calcium 8.0 L (8.5-10.1) mg/dl Phosphorus 2.6 (2.5-4.9) mg/dl Magnesium (1.8-2.4) mg/dl Total Bilirubin 1.1 H (0.2-1) mg/dl AST 33 (15-37) U/L ALT 40 (12-78) U/L Alkaline Phosphatase 114 (45-117) U/L Ammonia 22.1 (11-32) umol/L Troponin I (0-0.045) ng/ml Total Protein 6.1 L (6.4-8.2) gm/dl Albumin 2.6 L (3.4-5.0) gm/dl Globulin 3.5 (2.5-4.0) gm/dl Albumin/Globulin Ratio 0.7 L (0.9-2) Lipase (73-393) U/L Procalcitonin 0.19 (0-0.5) ng/ml TSH (0.300-4.500) uIu/ml Urine Color Urine Appearance (Clear) Urine pH (4.5-7.5) Ur Specific Bantry (1.000-1.030) Urine Protein (Negative) Urine Glucose (UA) (Negative) Urine Ketones (Negative) Urine Blood (Negative) Urine Nitrite (Negative) Urine Bilirubin (Negative) Urine Urobilinogen (Negative) Ur Leukocyte Esterase (Negative) Urine WBC (Auto) (0-5) /hpf Urine RBC (Auto) (0-4) /hpf U Hyaline Cast (Auto) (0-5) /lpf U Epithel Cells (Auto) (0-5) /lpf Urine Bacteria (Auto) (Negative) Ur Renal Epithelial Cell Urine Mucus (None Prsent) Stl C. diff Tox B Gene (Neg) Stl C.difficile Tox A&B (Negative) 06/05/20 06/05/20 06/05/20 Range/Units 07:59 07:59 07:59 WBC 9.91 (4.8-10.8) K/uL RBC 3.95 L (4.2-5.4) M/uL Hgb 12.3 (12.0-16.0) g/dL Hct 36.8 L (37-47) % MCV 93.2 (80-100) fL MCH 31.1 (25-34) pg MCHC 33.4 (32-36) g/dL RDW Std Deviation 55.2 H (36.4-46.3) fL RDW Coeff of Dewayne 16.1 H (11.5-14.5) % Plt Count 83 L (130-400) K/uL MPV 12.5 H (7.4-10.4) fL Immature Gran % (Auto) 0.2 % Neut % (Auto) 82.1 % Lymph % (Auto) 7.9 % Elk % (Auto) 9.5 % Eos % (Auto) 0.1 % Baso % (Auto) 0.2 % Neut # (Auto) 8.14 H (1.4-6.5) K/uL Lymph # (Auto) 0.78 L (1.2-3.4) K/uL Elk # (Auto) 0.94 H (0.11-0.59) K/uL Eos # (Auto) 0.01 (0-0.5) K/uL Baso # (Auto) 0.02 (0-0.2) K/uL Immature Gran # (Auto) 0.02 (0.00-0.02) K/uL Platelet Estimate (Normal) Ovalocytes PT (9.0-12.0) Seconds INR (0.9-1.1) APTT (21.0-31.0) Seconds PTT Ratio ABG pH 7.48 H (7.35-7.45) ABG pCO2 33 L (35-46) mmHg ABG pO2 80 (80-95) mmHg ABG HCO3 24 (19-24) mmol/L ABG O2 Saturation 96.7 H (90-95) % ABG Base Excess 0.9 (-9-1.8) mEq/L Alex Test Pos (Pos) Barometric Pressure 732.4 mm/Hg Oxygen Given room air Sodium 138 (136-145) mmol/L Potassium 3.1 L (3.5-5.1) mmol/L Chloride 108 H (98-107) mmol/L Carbon Dioxide 24 (21-32) mmol/L Anion Gap 6.0 (3-11) BUN 15 (7-18) mg/dl Creatinine 0.48 L (0.6-1.2) mg/dl Est Cr Clr Drug Dosing 130.3 Est GFR ( Amer) 123.6 Est GFR (Non-Af Amer) 106.6 BUN/Creatinine Ratio 30.6 H (10-20) Glucose 137 H (70-99) mg/dl Lactate (0.4-2.0) mmol/L Calcium 8.6 (8.5-10.1) mg/dl Phosphorus 2.4 L (2.5-4.9) mg/dl Magnesium 2.0 (1.8-2.4) mg/dl Total Bilirubin (0.2-1) mg/dl AST (15-37) U/L ALT (12-78) U/L Alkaline Phosphatase (45-117) U/L Ammonia (11-32) umol/L Troponin I (0-0.045) ng/ml Total Protein (6.4-8.2) gm/dl Albumin (3.4-5.0) gm/dl Globulin (2.5-4.0) gm/dl Albumin/Globulin Ratio (0.9-2) Lipase (73-393) U/L Procalcitonin (0-0.5) ng/ml TSH (0.300-4.500) uIu/ml Urine Color Urine Appearance (Clear) Urine pH (4.5-7.5) Ur Specific Bantry (1.000-1.030) Urine Protein (Negative) Urine Glucose (UA) (Negative) Urine Ketones (Negative) Urine Blood (Negative) Urine Nitrite (Negative) Urine Bilirubin (Negative) Urine Urobilinogen (Negative) Ur Leukocyte Esterase (Negative) Urine WBC (Auto) (0-5) /hpf Urine RBC (Auto) (0-4) /hpf U Hyaline Cast (Auto) (0-5) /lpf U Epithel Cells (Auto) (0-5) /lpf Urine Bacteria (Auto) (Negative) Ur Renal Epithelial Cell Urine Mucus (None Prsent) Stl C. diff Tox B Gene (Neg) Stl C.difficile Tox A&B (Negative) 06/05/20 06/05/20 06/05/20 Range/Units 03:45 02:19 01:43 WBC (4.8-10.8) K/uL RBC (4.2-5.4) M/uL Hgb (12.0-16.0) g/dL Hct (37-47) % MCV (80-100) fL MCH (25-34) pg MCHC (32-36) g/dL RDW Std Deviation (36.4-46.3) fL RDW Coeff of Dewayne (11.5-14.5) % Plt Count (130-400) K/uL MPV (7.4-10.4) fL Immature Gran % (Auto) % Neut % (Auto) % Lymph % (Auto) % Elk % (Auto) % Eos % (Auto) % Baso % (Auto) % Neut # (Auto) (1.4-6.5) K/uL Lymph # (Auto) (1.2-3.4) K/uL Elk # (Auto) (0.11-0.59) K/uL Eos # (Auto) (0-0.5) K/uL Baso # (Auto) (0-0.2) K/uL Immature Gran # (Auto) (0.00-0.02) K/uL Platelet Estimate (Normal) Ovalocytes PT (9.0-12.0) Seconds INR (0.9-1.1) APTT (21.0-31.0) Seconds PTT Ratio ABG pH (7.35-7.45) ABG pCO2 (35-46) mmHg ABG pO2 (80-95) mmHg ABG HCO3 (19-24) mmol/L ABG O2 Saturation (90-95) % ABG Base Excess (-9-1.8) mEq/L Alex Test (Pos) Barometric Pressure mm/Hg Oxygen Given Sodium (136-145) mmol/L Potassium (3.5-5.1) mmol/L Chloride (98-107) mmol/L Carbon Dioxide (21-32) mmol/L Anion Gap (3-11) BUN (7-18) mg/dl Creatinine (0.6-1.2) mg/dl Est Cr Clr Drug Dosing Est GFR ( Amer) Est GFR (Non-Af Amer) BUN/Creatinine Ratio (10-20) Glucose (70-99) mg/dl Lactate 1.6 2.8 H* (0.4-2.0) mmol/L Calcium (8.5-10.1) mg/dl Phosphorus (2.5-4.9) mg/dl Magnesium (1.8-2.4) mg/dl Total Bilirubin (0.2-1) mg/dl AST (15-37) U/L ALT (12-78) U/L Alkaline Phosphatase (45-117) U/L Ammonia (11-32) umol/L Troponin I (0-0.045) ng/ml Total Protein (6.4-8.2) gm/dl Albumin (3.4-5.0) gm/dl Globulin (2.5-4.0) gm/dl Albumin/Globulin Ratio (0.9-2) Lipase (73-393) U/L Procalcitonin (0-0.5) ng/ml TSH (0.300-4.500) uIu/ml Urine Color Dark Yellow Urine Appearance Clear (Clear) Urine pH 5.0 (4.5-7.5) Ur Specific Bantry 1.025 (1.000-1.030) Urine Protein Negative (Negative) Urine Glucose (UA) Negative (Negative) Urine Ketones Negative (Negative) Urine Blood 1+ H (Negative) Urine Nitrite Negative (Negative) Urine Bilirubin Negative (Negative) Urine Urobilinogen Negative (Negative) Ur Leukocyte Esterase Negative (Negative) Urine WBC (Auto) 1-5 (0-5) /hpf Urine RBC (Auto) 0-4 (0-4) /hpf U Hyaline Cast (Auto) 5-10 H (0-5) /lpf U Epithel Cells (Auto) >30 H (0-5) /lpf Urine Bacteria (Auto) Negative (Negative) Ur Renal Epithelial Cell Not Reportable Urine Mucus Present A (None Prsent) Stl C. diff Tox B Gene (Neg) Stl C.difficile Tox A&B (Negative) 06/05/20 06/05/20 06/05/20 Range/Units 01:35 01:35 00:32 WBC (4.8-10.8) K/uL RBC (4.2-5.4) M/uL Hgb (12.0-16.0) g/dL Hct (37-47) % MCV (80-100) fL MCH (25-34) pg MCHC (32-36) g/dL RDW Std Deviation (36.4-46.3) fL RDW Coeff of Dewayne (11.5-14.5) % Plt Count (130-400) K/uL MPV (7.4-10.4) fL Immature Gran % (Auto) % Neut % (Auto) % Lymph % (Auto) % Elk % (Auto) % Eos % (Auto) % Baso % (Auto) % Neut # (Auto) (1.4-6.5) K/uL Lymph # (Auto) (1.2-3.4) K/uL Elk # (Auto) (0.11-0.59) K/uL Eos # (Auto) (0-0.5) K/uL Baso # (Auto) (0-0.2) K/uL Immature Gran # (Auto) (0.00-0.02) K/uL Platelet Estimate (Normal) Ovalocytes PT 13.1 H (9.0-12.0) Seconds INR 1.3 H (0.9-1.1) APTT 32.3 H (21.0-31.0) Seconds PTT Ratio 1.2 ABG pH (7.35-7.45) ABG pCO2 (35-46) mmHg ABG pO2 (80-95) mmHg ABG HCO3 (19-24) mmol/L ABG O2 Saturation (90-95) % ABG Base Excess (-9-1.8) mEq/L Alex Test (Pos) Barometric Pressure mm/Hg Oxygen Given Sodium (136-145) mmol/L Potassium (3.5-5.1) mmol/L Chloride (98-107) mmol/L Carbon Dioxide (21-32) mmol/L Anion Gap (3-11) BUN (7-18) mg/dl Creatinine (0.6-1.2) mg/dl Est Cr Clr Drug Dosing Est GFR ( Amer) Est GFR (Non-Af Amer) BUN/Creatinine Ratio (10-20) Glucose (70-99) mg/dl Lactate (0.4-2.0) mmol/L Calcium (8.5-10.1) mg/dl Phosphorus (2.5-4.9) mg/dl Magnesium (1.8-2.4) mg/dl Total Bilirubin (0.2-1) mg/dl AST (15-37) U/L ALT (12-78) U/L Alkaline Phosphatase (45-117) U/L Ammonia < 10.0 L (11-32) umol/L Troponin I (0-0.045) ng/ml Total Protein (6.4-8.2) gm/dl Albumin (3.4-5.0) gm/dl Globulin (2.5-4.0) gm/dl Albumin/Globulin Ratio (0.9-2) Lipase (73-393) U/L Procalcitonin (0-0.5) ng/ml TSH (0.300-4.500) uIu/ml Urine Color Urine Appearance (Clear) Urine pH (4.5-7.5) Ur Specific Bantry (1.000-1.030) Urine Protein (Negative) Urine Glucose (UA) (Negative) Urine Ketones (Negative) Urine Blood (Negative) Urine Nitrite (Negative) Urine Bilirubin (Negative) Urine Urobilinogen (Negative) Ur Leukocyte Esterase (Negative) Urine WBC (Auto) (0-5) /hpf Urine RBC (Auto) (0-4) /hpf U Hyaline Cast (Auto) (0-5) /lpf U Epithel Cells (Auto) (0-5) /lpf Urine Bacteria (Auto) (Negative) Ur Renal Epithelial Cell Urine Mucus (None Prsent) Stl C. diff Tox B Gene Positive Cdiff Gene H (Neg) Stl C.difficile Tox A&B Positive Cdiff Toxin A* (Negative) 06/05/20 06/05/20 Range/Units 00:32 00:32 WBC 10.15 (4.8-10.8) K/uL RBC 4.59 (4.2-5.4) M/uL Hgb 14.0 (12.0-16.0) g/dL Hct 42.8 (37-47) % MCV 93.2 (80-100) fL MCH 30.5 (25-34) pg MCHC 32.7 (32-36) g/dL RDW Std Deviation 54.5 H (36.4-46.3) fL RDW Coeff of Dewayne 15.8 H (11.5-14.5) % Plt Count 79 L (130-400) K/uL MPV 12.0 H (7.4-10.4) fL Immature Gran % (Auto) 0.3 % Neut % (Auto) 89.6 % Lymph % (Auto) 3.7 % Elk % (Auto) 6.3 % Eos % (Auto) 0.0 % Baso % (Auto) 0.1 % Neut # (Auto) 9.09 H (1.4-6.5) K/uL Lymph # (Auto) 0.38 L (1.2-3.4) K/uL Elk # (Auto) 0.64 H (0.11-0.59) K/uL Eos # (Auto) 0.00 (0-0.5) K/uL Baso # (Auto) 0.01 (0-0.2) K/uL Immature Gran # (Auto) 0.03 H (0.00-0.02) K/uL Platelet Estimate Decreased L (Normal) Ovalocytes 1+ PT (9.0-12.0) Seconds INR (0.9-1.1) APTT (21.0-31.0) Seconds PTT Ratio ABG pH (7.35-7.45) ABG pCO2 (35-46) mmHg ABG pO2 (80-95) mmHg ABG HCO3 (19-24) mmol/L ABG O2 Saturation (90-95) % ABG Base Excess (-9-1.8) mEq/L Alex Test (Pos) Barometric Pressure mm/Hg Oxygen Given Sodium 140 (136-145) mmol/L Potassium 3.2 L (3.5-5.1) mmol/L Chloride 108 H (98-107) mmol/L Carbon Dioxide 21 (21-32) mmol/L Anion Gap 11.0 (3-11) BUN 15 (7-18) mg/dl Creatinine 0.59 L (0.6-1.2) mg/dl Est Cr Clr Drug Dosing Not Reportable Est GFR ( Amer) 115.5 Est GFR (Non-Af Amer) 99.6 BUN/Creatinine Ratio 25.3 H (10-20) Glucose 152 H (70-99) mg/dl Lactate (0.4-2.0) mmol/L Calcium 8.6 (8.5-10.1) mg/dl Phosphorus (2.5-4.9) mg/dl Magnesium 1.7 L (1.8-2.4) mg/dl Total Bilirubin 1.3 H (0.2-1) mg/dl AST 42 H (15-37) U/L ALT 55 (12-78) U/L Alkaline Phosphatase 155 H (45-117) U/L Ammonia (11-32) umol/L Troponin I < 0.015 (0-0.045) ng/ml Total Protein 7.5 (6.4-8.2) gm/dl Albumin 3.1 L (3.4-5.0) gm/dl Globulin 4.4 H (2.5-4.0) gm/dl Albumin/Globulin Ratio 0.7 L (0.9-2) Lipase 31 L (73-393) U/L Procalcitonin (0-0.5) ng/ml TSH 0.801 (0.300-4.500) uIu/ml Urine Color Urine Appearance (Clear) Urine pH (4.5-7.5) Ur Specific Bantry (1.000-1.030) Urine Protein (Negative) Urine Glucose (UA) (Negative) Urine Ketones (Negative) Urine Blood (Negative) Urine Nitrite (Negative) Urine Bilirubin (Negative) Urine Urobilinogen (Negative) Ur Leukocyte Esterase (Negative) Urine WBC (Auto) (0-5) /hpf Urine RBC (Auto) (0-4) /hpf U Hyaline Cast (Auto) (0-5) /lpf U Epithel Cells (Auto) (0-5) /lpf Urine Bacteria (Auto) (Negative) Ur Renal Epithelial Cell Urine Mucus (None Prsent) Stl C. diff Tox B Gene (Neg) Stl C.difficile Tox A&B (Negative)
--- NOTE | 2020-06-05 10:30 | Hospitalist Progress Note ---
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 Much of the history is provided by EMS and through the patient's , as the patient herself is unable to answer questions. Evidently the patient has a past history of recurrent C. difficile with sepsis. She was admitted and subsequently discharged from [facility] on 05/07/2020, and had been doing fairly well at home. She is typically able to ambulate with her walker and participate in activities of daily living with the help of her . Evidently her noticed that she was more tired than normal today when he checked on her around 8 AM. The continue to check on her throughout the day, and when she did not answer his questions tonight, he contacted EMS. Upon arrival to the facility the patient has large amounts of foul-smelling stool from her neck down to her legs. Patient was diligently cleaned by nursing. The patient evidently has not had any new medication changes. No reports of fever symptoms" -patient was given IV fluids and electrolytes and again started on antibiotics because of continues to be C.difficile carrier with positive toxin and abdominal imaging of patterson-colitis -06/05/2020 day time assessments: Patient with dentures. responds to questions but sometimes only says "yes" because she lacks her home hearing aids. she also notes that her needs to bring the glasses to help with the vision. patient can recall being at home watching TV. "I must have fell asleep" she reports when I asked her what was the last thing she remembered she remembered prior to finding herself in the hospital. could not get more answers from her in review of systems C.difficile infection, recurrent, colitis possible from C.difficile -multiple hospitalizations with C.difficile positive toxin and antibiotic treatments with Vancomycin -hospitalists have inquired in the past whether patient needs fecal transplant evaluation eventually on prior admissions, continue oral Vancomycin and IV Flagyl for now, await full gastroenterology evaluation Hypokalemia and hypomagnesemia and Hypophosphatemia -target potassium between 3.5 to 4 and goal serum magnesium is 2 -mildly low serum phosphorous and to get IV supplements -replete and trend the labs Cirrhosis -ammonia levels not elevated on admission Hypertension - Toprol-XL with holding parameters. Question of being on Aldactone, which is held currently. Prolonged QTc on EKG -minimize any QT prolonging drugs. -monitor History of Migraines -no headache currently -Sumatriptan p.r.n. History of past tobacco abuse. Deep venous thrombosis prophylaxis: sequential compression devices for now. (2) Hard of hearing: -patient needs her hearing aids from home Admission and Anticipated Discharge Date Admission Date: June 05, 2020 Subjective Patient with dentures. responds to questions but sometimes only says "yes" because she lacks her home hearing aids. she also notes that her needs to bring the glasses to help with the vision. patient can recall being at home watching TV. "I must have fell asleep" she reports when I asked her what was the last thing she remembered she remembered prior to finding herself in the hospital. could not get more answers from her in review of systems Review of Systems Review of Systems: Other unable to assess fully due to auditory impairements Physical Exam Constitutional: + thin Eyes: PERRL, conjunctivae normal, anicteric sclerae EOM intact bilaterally ENMT: external ear and nose normal, oropharynx normal Neck: trachea midline, no thyromegaly normal visual inspection Respiratory: normal respiratory effort, lungs clear to auscultation Cardiovascular: Rate/Rhythm: regular rate Gastrointestinal (Abdomen): Inspection/Auscultation: normal bowel sounds Percussion/Palpation: abdomen soft Musculoskeletal: Head/Neck/Chest: normocephalic and head atraumatic Neurologic: moves all extremities Psychiatric: Orientation: alert and cooperative Results & Data Results & Data ([facility]) Vital Signs (Past 12 Hours) Vital Signs Temp Pulse Pulse Resp BP BP Pulse Ox 06/05/20 07:09 37.1 C 98 H 20 143/72 H 97 06/05/20 06:08 37.3 C 94 H 18 126/62 93 06/05/20 05:04 37.4 C 06/05/20 05:00 91 H 20 114/46 L 92 06/05/20 04:30 104 H 21 131/59 L 92 06/05/20 04:00 103 H 19 126/59 L 93 06/05/20 03:30 107 H 22 138/63 95 06/05/20 03:00 102 H 20 145/64 H 97 06/05/20 02:30 101 H 20 146/63 H 98 06/05/20 02:01 101 H 22 145/61 H 99 06/05/20 01:30 102 H 21 162/83 H 98 06/05/20 00:44 37.2 C 99 H 16 162/68 H 97 (1) AMS (altered mental status) Altered mental status type: somnolence Qualified Code(s): R40.0 - Somnolence
[2020-06-05 13:36] LABS: Albumin Level 2.6 gm/dl (3.4-5.0); BUN Creatinine Ratio 24.7 (10-20); Creatinine Clr Calc Pharmacy 113.7 ml/min; Est GFR (African American) 118.2; Est GFR (Non-African American) 101.9; Potassium 3.5 mmol/L (3.5-5.1)
[2020-06-05 13:50] LABS: Albumin Globulin Ratio 0.7 (0.9-2); Bilirubin,Total 1.1 mg/dl (0.2-1); Globulin 3.5 gm/dl (2.5-4.0); Phosphorus 2.6 mg/dl (2.5-4.9); Total Protein 6.1 gm/dl (6.4-8.2)
[2020-06-05] MEDS ORDERED: LOPERAMIDE HCL 2 MG CAP PO STA (16:11)
[2020-06-05 17:58] LABS: Amphetamines+Metham, Urine Pos (Neg); Barbiturates, Urine Pos (Neg); Benzodiazepine, Urine Neg (Neg); Cocaine, Urine Neg (Neg); MDMA (Ecstacy), Urine Neg (Neg); Methadone, Urine Neg (Neg); Opiate, Urine Pos (Neg); Phencyclidine, Urine Neg (Neg)
--- NOTE | 2020-06-06 04:42 | Electrocardiogram Report ---
Test Reason : Blood Pressure : / mmHG Vent. Rate : 099 BPM Atrial Rate : 099 BPM P-R Int : 160 ms QRS Dur : 094 ms QT Int : 442 ms P-R-T Axes : 055 032 043 degrees QTc Int : 567 ms Sinus rhythm with Premature atrial complexes Nonspecific ST abnormality Prolonged QT Abnormal ECG When compared with ECG of 20-APR-2020 00:51, Premature atrial complexes are now Present Nonspecific T wave abnormality, improved in Anterolateral leads QT has lengthened Confirmed by Sergio Ty ([id number]) on 06/06/2020 4:42:36 AM Referred By: REFERRED SELF Confirmed By:Sergio Ty
--- NOTE | 2020-06-06 04:48 | Electrocardiogram Report ---
Test Reason : Blood Pressure : / mmHG Vent. Rate : 097 BPM Atrial Rate : 097 BPM P-R Int : 164 ms QRS Dur : 094 ms QT Int : 450 ms P-R-T Axes : 039 021 037 degrees QTc Int : 571 ms Normal sinus rhythm Nonspecific ST abnormality Prolonged QT Abnormal ECG When compared with ECG of 05-JUN-2020 02:03, Premature atrial complexes are no longer Present Confirmed by Sergio Ty ([id number]) on 06/06/2020 4:47:27 AM Referred By: REFERRED SELF Confirmed By:Sergio Ty
[2020-06-06 06:51] LABS: Hematocrit (blood only) 34.4 % (37-47); Hemoglobin 11.6 g/dL (12.0-16.0); Mean Corpuscular Hemoglobin 31.4 pg (25-34); Mean Corpuscular Hgb Conc 33.7 g/dL (32-36); Mean Platelet Volume 12.1 fL (7.4-10.4); Platelet Count 64 K/uL (130-400); RDW Coefficient of Variation 16.1 % (11.5-14.5); RDW Standard Deviation 54.7 fL (36.4-46.3); White Blood Count 4.36 K/uL (4.8-10.8)
[2020-06-06] MEDS: ALBUTEROL HFA 8 GM INHALER INH SCH ×4 (06:59→19:22)
[2020-06-06 07:21] LABS: Albumin Level 2.5 gm/dl (3.4-5.0); BUN Creatinine Ratio 22.7 (10-20); Calcium 8.4 mg/dl (8.5-10.1); Creatinine Clr Calc Pharmacy 148.9 ml/min; Est GFR (African American) 129.1; Est GFR (Non-African American) 111.4; Magnesium 1.8 mg/dl (1.8-2.4)
[2020-06-06 07:24] LABS: Albumin Globulin Ratio 0.7 (0.9-2); Globulin 3.4 gm/dl (2.5-4.0); Phosphorus 1.9 mg/dl (2.5-4.9); Total Protein 5.9 gm/dl (6.4-8.2)
[2020-06-06 07:35] LABS: Basophils # (auto) 0.03 K/uL (0-0.2); Basophils % (auto) 0.7 %; Eosinophils # (auto) 0.44 K/uL (0-0.5); Eosinophils % (auto) 10.1 %; Immature Granulocytes # (auto) 0.01 K/uL (0.00-0.02); Immature Granulocytes % (auto) 0.2 %; Lymphocytes # (auto) 0.58 K/uL (1.2-3.4); Lymphocytes % (auto) 13.3 %; Monocytes # (auto) 0.65 K/uL (0.11-0.59); Monocytes % (auto) 14.9 %; Neutrophils # (auto) 2.65 K/uL (1.4-6.5); Neutrophils % (auto) 60.8 %
[2020-06-06] MEDS: FEXOFENADINE HCL 180 MG TAB PO SCH (09:00)
[2020-06-06] MEDS: SACCHAROMYCES BOULARDII 250 MG CAP PO SCH ×2 (09:00→22:01)
[2020-06-06] MEDS: CALCIUM 600MG + VIT D 400 IU TAB PO SCH ×2 (09:00→22:00)
[2020-06-06] MEDS: FERROUS SULFATE 325 MG TAB PO SCH (09:00)
[2020-06-06] MEDS: MAGNESIUM OXIDE 400 MG TAB PO SCH (09:01)
[2020-06-06] MEDS: METOPROLOL TARTRATE 50 MG TAB PO SCH (09:01)
[2020-06-06] MEDS: FLUTICASONE PROPIONATE NA SPR 16 GM BTL SCH (09:01)
[2020-06-06] MEDS: ASCORBIC ACID 500 MG TAB PO SCH (09:01)
[2020-06-06] MEDS: CEROVITE ADV FORMULA TAB PO SCH (09:01)
[2020-06-06] MEDS: FIDAXOMICIN 200 MG TAB PO SCH ×2 (09:07→22:01)
[2020-06-06] MEDS ORDERED: SODIUM CHLORIDE 0.9% 1000ML 500 ML IV ONE (09:56)
[2020-06-06] MEDS ORDERED: POTASSIUM ACETATE 10 MEQ in 0.9 % SODIUM CHLORIDE 100 ML IV STA (09:56)
[2020-06-06] MEDS ORDERED: POTASSIUM CHLORIDE 20 MEQ TABCR PO STA (09:57)
--- NOTE | 2020-06-06 10:24 | Gastroenterology Progress Note ---
Date of Service June 06, 2020 Assessment & Plan (1) C. difficile colitis: 60 y/o female with PMhx HTN, schizophrenia, ? 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 Today pt much more awake; able to hold a conversation; sitting upright in beside chair. 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 cirrhosis, recommend outpt GI f/u as previously stated in previous admission. Would recommend out pt EGD (for variceal screen) and colonoscopy (screening for colon CA but also to f/u on colitis seen on several CTs) Please see addendum below with additional recommendation from my supervising physician. Admission and Anticipated Discharge Date Admission Date: June 05, 2020 Supervising Physician Co-Signing Physician Notes PE unchanged No copious amount of diarrhea Labs reviewed Agree with further plan of care as per Carola's plan of care. Subjective Patient seen and examined, chart reviewed. No acute events overnight. Continues with loose stools, unable to control at times. Much more alert today; able to carry on a conversation. I spoke with , Sidney over the phone - he reports she did complete her most recent vanco taper from her previous admission. Stool was believed to be "normal," solid up until 31 of May weekend when she developed abd cramping and diarrhea. Pt confirms this. They both deny ABX use in the interim. Today denies abd pain, nausea, vomiting, hematemesis, melena, hematochezia, chest pain. Labs today stable with low K and phosphorus Review of Systems Review of Systems: As per HPI Physical Exam Constitutional: no acute distress chronically ill, looks much better today; more awake; sitting upright in bedside chair Respiratory: normal respiratory effort Cardiovascular: Rate/Rhythm: regular rate and regular rhythm Gastrointestinal (Abdomen): normal bowel sounds, soft, nontender, no hepatosplenomegaly Inspection/Auscultation: abdomen not distended Skin: no rashes, warm and dry Psychiatric: A+Ox3, euthymic affect Results & Data ([facility]) Vital Signs (Past 12 Hours) Vital Signs Temp Pulse Resp BP Pulse Ox 06/06/20 07:32 37.0 C 75 16 134/69 94 06/06/20 07:02 74 18 95 06/06/20 04:14 36.6 C 76 16 142/69 H 93 06/05/20 23:24 37.2 C 75 20 126/68 97 Laboratory Results 06/06/20 06/06/20 06/05/20 Range/Units 06:24 06:24 17:00 WBC 4.36 L D (4.8-10.8) K/uL RBC 3.70 L (4.2-5.4) M/uL Hgb 11.6 L (12.0-16.0) g/dL Hct 34.4 L (37-47) % MCV 93.0 (80-100) fL MCH 31.4 (25-34) pg MCHC 33.7 (32-36) g/dL RDW Std Deviation 54.7 H (36.4-46.3) fL RDW Coeff of Dewayne 16.1 H (11.5-14.5) % Plt Count 64 L (130-400) K/uL MPV 12.1 H (7.4-10.4) fL Immature Gran % (Auto) 0.2 % Neut % (Auto) 60.8 % Lymph % (Auto) 13.3 % Beauregard % (Auto) 14.9 % Eos % (Auto) 10.1 % Baso % (Auto) 0.7 % Neut # (Auto) 2.65 (1.4-6.5) K/uL Lymph # (Auto) 0.58 L (1.2-3.4) K/uL Beauregard # (Auto) 0.65 H (0.11-0.59) K/uL Eos # (Auto) 0.44 (0-0.5) K/uL Baso # (Auto) 0.03 (0-0.2) K/uL Immature Gran # (Auto) 0.01 (0.00-0.02) K/uL Sodium 140 (136-145) mmol/L Potassium 3.0 L (3.5-5.1) mmol/L Chloride 110 H (98-107) mmol/L Carbon Dioxide 24 (21-32) mmol/L Anion Gap 6.0 (3-11) BUN 9 D (7-18) mg/dl Creatinine 0.42 L (0.6-1.2) mg/dl Est Cr Clr Drug Dosing 148.9 ml/min Est GFR ( Amer) 129.1 Est GFR (Non-Af Amer) 111.4 BUN/Creatinine Ratio 22.7 H (10-20) Glucose 105 H (70-99) mg/dl Calcium 8.4 L (8.5-10.1) mg/dl Phosphorus 1.9 L (2.5-4.9) mg/dl Magnesium 1.8 (1.8-2.4) mg/dl Total Bilirubin 1.0 (0.2-1) mg/dl AST 38 H (15-37) U/L ALT 41 (12-78) U/L Alkaline Phosphatase 114 (45-117) U/L Ammonia (11-32) umol/L Total Protein 5.9 L (6.4-8.2) gm/dl Albumin 2.5 L (3.4-5.0) gm/dl Globulin 3.4 (2.5-4.0) gm/dl Albumin/Globulin Ratio 0.7 L (0.9-2) Nasal Screen MRSA (PCR) (Negative) Urine Butalbital Pending Urine Opiates Screen (Neg) U Codeine Confrm GC/MS Pending Ur Morphine (GC/MS) Pending Ur Hydrocodone (GC/MS) Pending Ur Norhydrocodone Pending Ur Noroxycodone Pending Urine Oxycodone (GC/MS) Pending U Oxymorphone GC/MS Pending Ur Methadone, Qual (Neg) Ur Hydromorphone (GC/MS) Pending Urine Barbiturates (Neg) Ur Phencyclidine (PCP) (Neg) U Amphetamines Confirm Pending U Amphetamin/Meth Scrn (Neg) U Methamphetamin Confrm Pending MDMA (Ecstasy) Screen (Neg) Urine Amobarbital Pending Urine Pentobarbital Pending Urine Phenobarbital Pending Urine Secobarbital Pending U Benzodiazepines Scrn (Neg) Ur Cocaine Metabolite (Neg) U Marijuana (THC) Screen (Neg) Drug Screen Comment Pending 06/05/20 06/05/20 06/05/20 Range/Units 17:00 17:00 13:11 WBC (4.8-10.8) K/uL RBC (4.2-5.4) M/uL Hgb (12.0-16.0) g/dL Hct (37-47) % MCV (80-100) fL MCH (25-34) pg MCHC (32-36) g/dL RDW Std Deviation (36.4-46.3) fL RDW Coeff of Dewayne (11.5-14.5) % Plt Count (130-400) K/uL MPV (7.4-10.4) fL Immature Gran % (Auto) % Neut % (Auto) % Lymph % (Auto) % Beauregard % (Auto) % Eos % (Auto) % Baso % (Auto) % Neut # (Auto) (1.4-6.5) K/uL Lymph # (Auto) (1.2-3.4) K/uL Beauregard # (Auto) (0.11-0.59) K/uL Eos # (Auto) (0-0.5) K/uL Baso # (Auto) (0-0.2) K/uL Immature Gran # (Auto) (0.00-0.02) K/uL Sodium (136-145) mmol/L Potassium (3.5-5.1) mmol/L Chloride (98-107) mmol/L Carbon Dioxide (21-32) mmol/L Anion Gap (3-11) BUN (7-18) mg/dl Creatinine (0.6-1.2) mg/dl Est Cr Clr Drug Dosing ml/min Est GFR ( Amer) Est GFR (Non-Af Amer) BUN/Creatinine Ratio (10-20) Glucose (70-99) mg/dl Calcium (8.5-10.1) mg/dl Phosphorus (2.5-4.9) mg/dl Magnesium (1.8-2.4) mg/dl Total Bilirubin (0.2-1) mg/dl AST (15-37) U/L ALT (12-78) U/L Alkaline Phosphatase (45-117) U/L Ammonia 22.1 (11-32) umol/L Total Protein (6.4-8.2) gm/dl Albumin (3.4-5.0) gm/dl Globulin (2.5-4.0) gm/dl Albumin/Globulin Ratio (0.9-2) Nasal Screen MRSA (PCR) Negative (Negative) Urine Butalbital Urine Opiates Screen Pos H (Neg) U Codeine Confrm GC/MS Ur Morphine (GC/MS) Ur Hydrocodone (GC/MS) Ur Norhydrocodone Ur Noroxycodone Urine Oxycodone (GC/MS) U Oxymorphone GC/MS Ur Methadone, Qual Neg (Neg) Ur Hydromorphone (GC/MS) Urine Barbiturates Pos H (Neg) Ur Phencyclidine (PCP) Neg (Neg) U Amphetamines Confirm U Amphetamin/Meth Scrn Pos H (Neg) U Methamphetamin Confrm MDMA (Ecstasy) Screen Neg (Neg) Urine Amobarbital Urine Pentobarbital Urine Phenobarbital Urine Secobarbital U Benzodiazepines Scrn Neg (Neg) Ur Cocaine Metabolite Neg (Neg) U Marijuana (THC) Screen Neg (Neg) Drug Screen Comment 06/05/20 Range/Units 13:11 WBC (4.8-10.8) K/uL RBC (4.2-5.4) M/uL Hgb (12.0-16.0) g/dL Hct (37-47) % MCV (80-100) fL MCH (25-34) pg MCHC (32-36) g/dL RDW Std Deviation (36.4-46.3) fL RDW Coeff of Dewayne (11.5-14.5) % Plt Count (130-400) K/uL MPV (7.4-10.4) fL Immature Gran % (Auto) % Neut % (Auto) % Lymph % (Auto) % Beauregard % (Auto) % Eos % (Auto) % Baso % (Auto) % Neut # (Auto) (1.4-6.5) K/uL Lymph # (Auto) (1.2-3.4) K/uL Beauregard # (Auto) (0.11-0.59) K/uL Eos # (Auto) (0-0.5) K/uL Baso # (Auto) (0-0.2) K/uL Immature Gran # (Auto) (0.00-0.02) K/uL Sodium 139 (136-145) mmol/L Potassium 3.5 (3.5-5.1) mmol/L Chloride 109 H (98-107) mmol/L Carbon Dioxide 23 (21-32) mmol/L Anion Gap 7.0 (3-11) BUN 14 (7-18) mg/dl Creatinine 0.55 L (0.6-1.2) mg/dl Est Cr Clr Drug Dosing 113.7 ml/min Est GFR ( Amer) 118.2 Est GFR (Non-Af Amer) 101.9 BUN/Creatinine Ratio 24.7 H (10-20) Glucose 133 H (70-99) mg/dl Calcium 8.0 L (8.5-10.1) mg/dl Phosphorus 2.6 (2.5-4.9) mg/dl Magnesium (1.8-2.4) mg/dl Total Bilirubin 1.1 H (0.2-1) mg/dl AST 33 (15-37) U/L ALT 40 (12-78) U/L Alkaline Phosphatase 114 (45-117) U/L Ammonia (11-32) umol/L Total Protein 6.1 L (6.4-8.2) gm/dl Albumin 2.6 L (3.4-5.0) gm/dl Globulin 3.5 (2.5-4.0) gm/dl Albumin/Globulin Ratio 0.7 L (0.9-2) Nasal Screen MRSA (PCR) (Negative) Urine Butalbital Urine Opiates Screen (Neg) U Codeine Confrm GC/MS Ur Morphine (GC/MS) Ur Hydrocodone (GC/MS) Ur Norhydrocodone Ur Noroxycodone Urine Oxycodone (GC/MS) U Oxymorphone GC/MS Ur Methadone, Qual (Neg) Ur Hydromorphone (GC/MS) Urine Barbiturates (Neg) Ur Phencyclidine (PCP) (Neg) U Amphetamines Confirm U Amphetamin/Meth Scrn (Neg) U Methamphetamin Confrm MDMA (Ecstasy) Screen (Neg) Urine Amobarbital Urine Pentobarbital Urine Phenobarbital Urine Secobarbital U Benzodiazepines Scrn (Neg) Ur Cocaine Metabolite (Neg) U Marijuana (THC) Screen (Neg) Drug Screen Comment
--- NOTE | 2020-06-06 10:24 | Hospitalist Progress Note ---
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 Much of the history is provided by EMS and through the patient's , as the patient herself is unable to answer questions. Evidently the patient has a past history of recurrent C. difficile with sepsis. She was admitted and subsequently discharged from [facility] on 05/07/2020, and had been doing fairly well at home. She is typically able to ambulate with her walker and participate in activities of daily living with the help of her . Evidently her noticed that she was more tired than normal today when he checked on her around 8 AM. The continue to check on her throughout the day, and when she did not answer his questions tonight, he contacted EMS. Upon arrival to the facility the patient has large amounts of foul-smelling stool from her neck down to her legs. Patient was diligently cleaned by nursing. The patient evidently has not had any new medication changes. No reports of fever symptoms" -patient was given IV fluids and electrolytes and again started on antibiotics because of continues to be C.difficile carrier with positive toxin and abdominal imaging of patterson-colitis -06/05/2020 day time assessments: Patient with dentures. responds to questions but sometimes only says "yes" because she lacks her home hearing aids. she also notes that her needs to bring the glasses to help with the vision. patient can recall being at home watching TV. "I must have fell asleep" she reports when I asked her what was the last thing she remembered she remembered prior to finding herself in the hospital. could not get more answers from her in review of systems -06/06/2020: patient now has hearing aides which was brought in by her and glasses, she is communicating better as she can hear. She feels "wiped out" but not in distress. she reports frequent diarrhea at home. no pain of chest, abdomen, no headache, no dizziness. 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.difficile -multiple hospitalizations with C.difficile positive toxin and antibiotic treatments with Vancomycin -hospitalists have inquired in the past whether patient needs fecal transplant evaluation eventually on prior admissions -was given oral Vancomycin and IV Flagyl from admission and no to be switched to Dificid as BID starting on 06/06/2020 -loperamide prn for diarrhea, monitor the bowel movements Hypokalemia and hypomagnesemia and Hypophosphatemia -target potassium between 3.5 to 4 and goal serum magnesium is 2 -mildly low serum phosphorous and to get IV supplements -replete and trend the labs, patient given additional IV and oral potassium/magnesium on 06/06/2020 Cirrhosis -ammonia levels not elevated on admission -hold spirolactone because of diarrhea Hypertension -reduce the metoprolol 50 mg BID to once daily Prolonged QTc on EKG -minimize any QT prolonging drugs. -asymptomatic bradycardia on telemetry History of Migraines -no headache currently -Sumatriptan p.r.n. History of past tobacco abuse. Deep venous thrombosis prophylaxis: sequential compression devices for now. PT/OT evaluations, case management evaluation (2) Hard of hearing: -patient needs her hearing aids from home Admission and Anticipated Discharge Date Admission Date: June 05, 2020 Subjective patient now has hearing aides which was brought in by her and glasses, she is communicating better as she can hear. She feels "wiped out" but not in distress. she reports frequent diarrhea at home. no pain of chest, abdomen, no headache, no dizziness. telemetry with asymptomatic bradycardia Review of Systems Review of Systems: All systems reviewed & are unremarkable except as noted in Subjective Physical Exam Constitutional: + thin Eyes: PERRL, conjunctivae normal, anicteric sclerae EOM intact bilaterally ENMT: external ear and nose normal, oropharynx normal Neck: trachea midline, no thyromegaly normal visual inspection Respiratory: normal respiratory effort, lungs clear to auscultation Cardiovascular: Rate/Rhythm: + bradycardic Gastrointestinal (Abdomen): Inspection/Auscultation: normal bowel sounds Percussion/Palpation: abdomen soft Musculoskeletal: Head/Neck/Chest: normocephalic and head atraumatic Neurologic: moves all extremities Psychiatric: Orientation: alert and cooperative Results & Data Results & Data ([facility]) Vital Signs (Past 12 Hours) Vital Signs Temp Pulse Pulse Resp BP Pulse Ox 06/06/20 07:32 37.0 C 75 16 134/69 94 06/06/20 07:02 74 18 95 06/06/20 04:14 36.6 C 76 16 142/69 H 93 06/05/20 23:24 37.2 C 75 20 126/68 97 06/05/20 22:20 64 (1) AMS (altered mental status) Altered mental status type: somnolence Qualified Code(s): R40.0 - Somnolence
[2020-06-06] MEDS ORDERED: MAGNESIUM SULFATE / D5W 1 GM/100 ML BAG IV ONE (10:30)
[2020-06-06] MEDS: POTASSIUM CHLORIDE / WTR 10 MEQ/100 ML PLCT IV SCH ×2 (11:23→14:07)
[2020-06-06] MEDS ORDERED: FIDAXOMICIN 200 MG TAB PO SCH (12:45)
[2020-06-07] MEDS: ALBUTEROL HFA 8 GM INHALER INH SCH ×4 (07:08→19:27)
[2020-06-07] MEDS: FIDAXOMICIN 200 MG TAB PO SCH ×2 (09:39→21:04)
[2020-06-07] MEDS: CALCIUM 600MG + VIT D 400 IU TAB PO SCH ×2 (09:39→21:00)
[2020-06-07] MEDS: LOPERAMIDE HCL 2 MG CAP PO PRN ×2 (09:39→18:05)
[2020-06-07] MEDS: SACCHAROMYCES BOULARDII 250 MG CAP PO SCH ×2 (09:39→20:59)
[2020-06-07] MEDS: METOPROLOL SUCC 50MG EXT REL TAB PO SCH (09:40)
[2020-06-07] MEDS: CEROVITE ADV FORMULA TAB PO SCH (09:41)
[2020-06-07] MEDS: MAGNESIUM OXIDE 400 MG TAB PO SCH (09:41)
[2020-06-07] MEDS: FLUTICASONE PROPIONATE NA SPR 16 GM BTL SCH (09:41)
[2020-06-07 10:08] LABS: Hematocrit (blood only) 32.7 % (37-47); Hemoglobin 10.8 g/dL (12.0-16.0); Mean Corpuscular Hemoglobin 30.5 pg (25-34); Mean Corpuscular Volume 92.4 fL (80-100); Mean Platelet Volume 12.1 fL (7.4-10.4); Platelet Count 52 K/uL (130-400); RDW Coefficient of Variation 15.5 % (11.5-14.5); RDW Standard Deviation 53.2 fL (36.4-46.3); Red Blood Count 3.54 M/uL (4.2-5.4); White Blood Count 2.18 K/uL (4.8-10.8)
[2020-06-07] MEDS: POT PHOSPHATE MONOBASIC W/ SOD TAB PO SCH ×4 (10:16→21:01)
[2020-06-07] MEDS: ASCORBIC ACID 500 MG TAB PO SCH (10:17)
[2020-06-07] MEDS: FERROUS SULFATE 325 MG TAB PO SCH (10:17)
[2020-06-07] MEDS: FEXOFENADINE HCL 180 MG TAB PO SCH (10:17)
[2020-06-07 10:28] LABS: Albumin Level 2.3 gm/dl (3.4-5.0); BUN Creatinine Ratio 16.6 (10-20); Basophils # (auto) 0.02 K/uL (0-0.2); Basophils % (auto) 0.9 %; Calcium 7.8 mg/dl (8.5-10.1); Creatinine Clr Calc Pharmacy 173.7 ml/min; Eosinophils # (auto) 0.31 K/uL (0-0.5); Eosinophils % (auto) 14.2 %; Est GFR (African American) 135.8; Est GFR (Non-African American) 117.2; Immature Granulocytes # (auto) 0.01 K/uL (0.00-0.02); Immature Granulocytes % (auto) 0.5 %; Lymphocytes # (auto) 0.49 K/uL (1.2-3.4); Lymphocytes % (auto) 22.5 %; Magnesium 1.8 mg/dl (1.8-2.4); Monocytes # (auto) 0.35 K/uL (0.11-0.59); Monocytes % (auto) 16.1 %; Neutrophils % (auto) 45.8 %; Potassium 2.9 mmol/L (3.5-5.1)
[2020-06-07 10:31] LABS: Albumin Globulin Ratio 0.7 (0.9-2); Bilirubin,Total 0.6 mg/dl (0.2-1); Globulin 3.2 gm/dl (2.5-4.0); Phosphorus 2.7 mg/dl (2.5-4.9); Total Protein 5.5 gm/dl (6.4-8.2)
[2020-06-07] MEDS ORDERED: POTASSIUM ACETATE 10 MEQ in 0.9 % SODIUM CHLORIDE 100 ML IV STA (10:57)
[2020-06-07] MEDS ORDERED: POTASSIUM PHOS 3 MMOL/1 ML INFUSION IV STA (10:58)
[2020-06-07] MEDS: POTASSIUM CHLORIDE / WTR 10 MEQ/100 ML PLCT IV SCH (11:48)
--- NOTE | 2020-06-07 12:06 | Hospitalist Progress Note ---
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 Much of the history is provided by EMS and through the patient's , as the patient herself is unable to answer questions. Evidently the patient has a past history of recurrent C. difficile with sepsis. She was admitted and subsequently discharged from [facility] on 05/07/2020, and had been doing fairly well at home. She is typically able to ambulate with her walker and participate in activities of daily living with the help of her . Evidently her noticed that she was more tired than normal today when he checked on her around 8 AM. The continue to check on her throughout the day, and when she did not answer his questions tonight, he contacted EMS. Upon arrival to the facility the patient has large amounts of foul-smelling stool from her neck down to her legs. Patient was diligently cleaned by nursing. The patient evidently has not had any new medication changes. No reports of fever symptoms" -patient was given IV fluids and electrolytes and again started on antibiotics because of continues to be C.difficile carrier with positive toxin and abdominal imaging of patterson-colitis -06/05/2020 day time assessments: Patient with dentures. responds to questions but sometimes only says "yes" because she lacks her home hearing aids. she also notes that her needs to bring the glasses to help with the vision. patient can recall being at home watching TV. "I must have fell asleep" she reports when I asked her what was the last thing she remembered she remembered prior to finding herself in the hospital. could not get more answers from her in review of systems -06/06/2020: patient now has hearing aides which was brought in by her and glasses, she is communicating better as she can hear. She feels "wiped out" but not in distress. she reports frequent diarrhea at home. no pain of chest, abdomen, no headache, no dizziness. 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.difficile -multiple hospitalizations with C.difficile positive toxin and antibiotic treatments with Vancomycin -hospitalists have inquired in the past whether patient needs fecal transplant evaluation eventually on prior admissions -was given oral Vancomycin and IV Flagyl from admission and no to be switched to Dificid as BID starting on 06/06/2020 -loperamide prn for diarrhea, monitor the bowel movements, continue to Dificid Hypokalemia and hypomagnesemia and Hypophosphatemia -serum magnesium is at goal -serum potassium still low as 2.9, give IV and oral potassium -serum phosphorous is better today but will give IV and oral phosphorous to help with previous deficiencies Cirrhosis -ammonia levels not elevated on admission -hold spirolactone because of diarrhea Hypertension -reduce the metoprolol 50 mg BID to once daily Prolonged QTc on EKG -minimize any QT prolonging drugs. -asymptomatic bradycardia on telemetry History of Migraines -no headache currently -Sumatriptan p.r.n. History of past tobacco abuse. Deep venous thrombosis prophylaxis: sequential compression devices for now. PT/OT evaluations, case management evaluation notes on 06/06/2020 "Case Tatyana reilly: Met with patient to discuss discharge plans. PT is recommending rehab & patient is agreeable. She would like to go to [facility] because she has been there in the past. We reviewed a list of SNFs for backup in the event her insurance denies [facility] and she chose [facility]. " (2) Hard of hearing: -patient needs her hearing aids from home Admission and Anticipated Discharge Date Admission Date: June 05, 2020 Subjective Patient sleeping at time of exam today. As per nurse, yesterday patient with frequent loose stools. today there has has been 1 loose stool so far Review of Systems Review of Systems: Unobtainable due to cognitive status Physical Exam Constitutional: + thin Eyes: PERRL, conjunctivae normal, anicteric sclerae EOM intact bilaterally ENMT: external ear and nose normal, oropharynx normal Neck: trachea midline, no thyromegaly normal visual inspection Respiratory: normal respiratory effort, lungs clear to auscultation Cardiovascular: Rate/Rhythm: + bradycardic Gastrointestinal (Abdomen): Inspection/Auscultation: normal bowel sounds Percussion/Palpation: abdomen soft Musculoskeletal: Head/Neck/Chest: normocephalic and head atraumatic Neurologic: sleeping Results & Data Results & Data ([facility]) Vital Signs (Past 12 Hours) Vital Signs Temp Pulse Resp BP Pulse Ox 06/07/20 11:31 36.6 C 66 16 133/76 95 06/07/20 11:16 66 18 98 06/07/20 07:45 36.7 C 78 16 142/54 H 96 06/07/20 07:10 93 H 18 96 06/07/20 04:19 37.0 C 85 18 151/68 H 96 (1) AMS (altered mental status) Altered mental status type: somnolence Qualified Code(s): R40.0 - Somnolence
[2020-06-07] MEDS: POTASSIUM CHLORIDE 20 MEQ TABCR PO SCH ×2 (13:04→21:02)
[2020-06-07] MEDS ORDERED: POTASSIUM PHOSPHATE 15 MMOL in SODIUM CHLORIDE 0.9% 250 ML IV ONE (13:30)
[2020-06-08] MEDS: ALBUTEROL HFA 8 GM INHALER INH SCH ×3 (07:11→19:24)
[2020-06-08 08:25] LABS: Calcium 7.9 mg/dl (8.5-10.1); Est GFR (African American) 134.6; Est GFR (Non-African American) 116.2; Magnesium 1.7 mg/dl (1.8-2.4); Phosphorus 3.2 mg/dl (2.5-4.9); Potassium 3.3 mmol/L (3.5-5.1)
[2020-06-08] MEDS: POT PHOSPHATE MONOBASIC W/ SOD TAB PO SCH ×4 (08:51→20:26)
[2020-06-08] MEDS: SACCHAROMYCES BOULARDII 250 MG CAP PO SCH ×2 (08:52→20:28)
[2020-06-08] MEDS: METOPROLOL SUCC 50MG EXT REL TAB PO SCH (08:52)
[2020-06-08] MEDS: CALCIUM 600MG + VIT D 400 IU TAB PO SCH ×2 (08:52→20:28)
[2020-06-08] MEDS: MAGNESIUM OXIDE 400 MG TAB PO SCH ×2 (08:52→20:27)
[2020-06-08] MEDS: POTASSIUM CHLORIDE 20 MEQ TABCR PO SCH ×2 (08:52→20:29)
[2020-06-08] MEDS: FERROUS SULFATE 325 MG TAB PO SCH (08:52)
[2020-06-08] MEDS: FEXOFENADINE HCL 180 MG TAB PO SCH (08:52)
[2020-06-08] MEDS: CEROVITE ADV FORMULA TAB PO SCH (08:53)
[2020-06-08] MEDS: FLUTICASONE PROPIONATE NA SPR 16 GM BTL SCH (08:53)
[2020-06-08] MEDS: ASCORBIC ACID 500 MG TAB PO SCH (08:53)
[2020-06-08] MEDS: FIDAXOMICIN 200 MG TAB PO SCH ×2 (09:01→20:26)
[2020-06-08] MEDS ORDERED: POTASSIUM ACETATE 10 MEQ in 0.9 % SODIUM CHLORIDE 100 ML IV ONE (09:17)
[2020-06-08] MEDS ORDERED: POTASSIUM CHLORIDE / WTR 10 MEQ/100 ML PLCT IV ONE (10:00)
--- NOTE | 2020-06-08 10:35 | Hospitalist Progress Note ---
Date of Service June 08, 2020 Assessment & Plan (1) AMS (altered mental status): Altered mental status likely from dehydration from diarrhea at home Auditory Impairments -as per 06/05/2020 kennel keeper ED notes "This is a 60-year-old female presenting to the emergency department for evaluation of altered mental status. Much of the history is provided by EMS and through the patient's , as the patient herself is unable to answer questions. Evidently the patient has a past history of recurrent C. difficile with sepsis. She was admitted and subsequently discharged from [facility] on 05/07/2020, and had been doing fairly well at home. She is typically able to ambulate with her walker and participate in activities of daily living with the help of her . Evidently her noticed that she was more tired than normal today when he checked on her around 8 AM. The continue to check on her throughout the day, and when she did not answer his questions tonight, he contacted EMS. Upon arrival to the facility the patient has large amounts of foul-smelling stool from her neck down to her legs. Patient was diligently cleaned by nursing. The patient evidently has not had any new medication changes. No reports of fever symptoms" -patient was given IV fluids and electrolytes and again started on antibiotics because of continues to be C.difficile carrier with positive toxin and abdominal imaging of patterson-colitis -06/05/2020 day time assessments: Patient with dentures. responds to questions but sometimes only says "yes" because she lacks her home hearing aids. she also notes that her needs to bring the glasses to help with the vision. patient can recall being at home watching TV. "I must have fell asleep" she reports when I asked her what was the last thing she remembered she remembered prior to finding herself in the hospital. could not get more answers from her in review of systems -06/06/2020: patient now has hearing aides which was brought in by her and glasses, she is communicating better as she can hear. She feels "wiped out" but not in distress. she reports frequent diarrhea at home. no pain of chest, abdomen, no headache, no dizziness. 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.difficile -multiple hospitalizations with C.difficile positive toxin and antibiotic treatments with Vancomycin -hospitalists have inquired in the past whether patient needs fecal transplant evaluation eventually on prior admissions -was given oral Vancomycin and IV Flagyl from admission and no to be switched to Dificid as BID starting on 06/06/2020 -loperamide prn for diarrhea, monitor the bowel movements, continue the Dificid Hypokalemia and hypomagnesemia and Hypophosphatemia -serum magnesium 1.7 and to get IV and oral magnesium -serum potassium 3.3, continue scheduled oral potassium and give IV potassium -continue oral phosphorous supplements -give BOOST supplements with meals Cirrhosis -ammonia levels not elevated on admission -hold spironolactone because of diarrhea Hypertension -on reduced metoprolol as 50 mg once daily Prolonged QTc on EKG -minimize any QT prolonging drugs. History of Migraines -no headache currently -Sumatriptan p.r.n. History of past tobacco abuse. Deep venous thrombosis prophylaxis: sequential compression devices for now. PT/OT evaluations, case management evaluation notes on 06/06/2020 "Case Management: Met with patient to discuss discharge plans. PT is recommending rehab & patient is agreeable. She would like to go to [facility] because she has been there in the past. We reviewed a list of SNFs for backup in the event her insurance denies [facility] and she chose [facility]. " (2) Hard of hearing: -patient needs her hearing aids from home Admission and Anticipated Discharge Date Admission Date: June 05, 2020 Subjective Again patient is sleeping during the attending hospitalist rounds. as per nurse, patient was upset earlier when nursing staff had helped her get from bed to chair. asked nurse to monitor bowel movements closely. patient also still with electrolyte deficiencies and remains on Dificid Review of Systems Review of Systems: Unobtainable due to cognitive status Physical Exam Constitutional: + thin ENMT: external ear and nose normal, oropharynx normal Neck: trachea midline, no thyromegaly normal visual inspection Respiratory: normal respiratory effort, lungs clear to auscultation Cardiovascular: Rate/Rhythm: regular rate and regular rhythm Gastrointestinal (Abdomen): Inspection/Auscultation: normal bowel sounds Percussion/Palpation: abdomen soft Musculoskeletal: Head/Neck/Chest: normocephalic and head atraumatic Neurologic: sleeping Results & Data Results & Data ([facility]) Vital Signs (Past 12 Hours) Vital Signs Temp Pulse Pulse Resp BP Pulse Ox 06/08/20 07:28 36.9 C 71 16 127/71 96 06/08/20 07:13 74 16 95 06/08/20 07:12 82 06/08/20 04:00 36.7 C 79 18 126/74 96 06/08/20 00:38 80 (1) AMS (altered mental status) Altered mental status type: somnolence Qualified Code(s): R40.0 - Somnolence
[2020-06-08] MEDS: MAGNESIUM SULFATE / D5W 1 GM/100 ML BAG IV SCH ×2 (10:36→12:28)
[2020-06-09] MEDS: ALBUTEROL HFA 8 GM INHALER INH SCH ×5 (01:52→19:10)
[2020-06-09 04:59] LABS: Amobarbital, Urine Conf NEGATIVE ng/mL (<100); Amphetamine Urine, Confirm 1690 ng/mL (<250); Butalbital, Urine 636 ng/mL (<100); Codeine Urine NEGATIVE ng/mL (<50); Hydrocodone Urine NEGATIVE ng/mL (<50); Hydromor Urine NEGATIVE ng/mL (<50); Methamphetamine, Ur Confirm NEGATIVE ng/mL (<250); Morphine Urine 51 ng/mL (<50); Norhydrocodone Conf Ur NEGATIVE ng/mL (<50); Noroxycodone Urine NEGATIVE ng/mL (<50); Oxycodone Urine NEGATIVE ng/mL (<50); Oxymorph Urine NEGATIVE ng/mL (<50); Pentobarbital, Urine Conf NEGATIVE ng/mL (<100); Phenobarbital, Urine NEGATIVE ng/mL (<100); Secobarbital, Urine Conf NEGATIVE ng/mL (<100)
[2020-06-09] MEDS: FIDAXOMICIN 200 MG TAB PO SCH ×2 (08:32→21:16)
[2020-06-09] MEDS: FERROUS SULFATE 325 MG TAB PO SCH (08:32)
[2020-06-09] MEDS: CEROVITE ADV FORMULA TAB PO SCH (08:32)
[2020-06-09] MEDS: METOPROLOL SUCC 50MG EXT REL TAB PO SCH (08:32)
[2020-06-09] MEDS: CALCIUM 600MG + VIT D 400 IU TAB PO SCH ×2 (08:32→21:18)
[2020-06-09] MEDS: SACCHAROMYCES BOULARDII 250 MG CAP PO SCH ×2 (08:32→21:20)
[2020-06-09] MEDS: MAGNESIUM OXIDE 400 MG TAB PO SCH ×2 (08:32→21:17)
[2020-06-09] MEDS: FEXOFENADINE HCL 180 MG TAB PO SCH (08:32)
[2020-06-09] MEDS: POTASSIUM CHLORIDE 20 MEQ TABCR PO SCH ×2 (08:32→21:18)
[2020-06-09] MEDS: POT PHOSPHATE MONOBASIC W/ SOD TAB PO SCH ×4 (08:32→21:17)
[2020-06-09] MEDS: ASCORBIC ACID 500 MG TAB PO SCH (08:33)
[2020-06-09] MEDS: FLUTICASONE PROPIONATE NA SPR 16 GM BTL SCH (08:33)
--- NOTE | 2020-06-09 09:15 | Hospitalist Progress Note ---
Date of Service June 09, 2020 Assessment & Plan (1) AMS (altered mental status): Altered mental status likely from dehydration from diarrhea at home Auditory Impairments -as per 06/05/2020 desktop analyst ED notes "This is a 60-year-old female presenting to the emergency department for evaluation of altered mental status. Much of the history is provided by EMS and through the patient's , as the patient herself is unable to answer questions. Evidently the patient has a past history of recurrent C. difficile with sepsis. She was admitted and subsequently discharged from [facility] on 05/07/2020, and had been doing fairly well at home. She is typically able to ambulate with her walker and participate in activities of daily living with the help of her . Evidently her noticed that she was more tired than normal today when he checked on her around 8 AM. The continue to check on her throughout the day, and when she did not answer his questions tonight, he contacted EMS. Upon arrival to the facility the patient has large amounts of foul-smelling stool from her neck down to her legs. Patient was diligently cleaned by nursing. The patient evidently has not had any new medication changes. No reports of fever symptoms" -patient was given IV fluids and electrolytes and again started on antibiotics because of continues to be C.difficile carrier with positive toxin and abdominal imaging of patterson-colitis -06/05/2020 day time assessments: Patient with dentures. responds to questions but sometimes only says "yes" because she lacks her home hearing aids. she also notes that her needs to bring the glasses to help with the vision. patient can recall being at home watching TV. "I must have fell asleep" she reports when I asked her what was the last thing she remembered she remembered prior to finding herself in the hospital. could not get more answers from her in review of systems -06/06/2020: patient now has hearing aides which was brought in by her and glasses, she is communicating better as she can hear. She feels "wiped out" but not in distress. she reports frequent diarrhea at home. no pain of chest, abdomen, no headache, no dizziness. telemetry with asymptomatic bradycardia -patient baseline mental status since C.difficile infection, recurrent colitis and diarrhea from C.difficile -multiple hospitalizations with C.difficile positive toxin and antibiotic treatments with Vancomycin -hospitalists have inquired in the past whether patient needs fecal transplant evaluation eventually on prior admissions -was given oral Vancomycin and IV Flagyl from admission and no to be switched to Dificid as BID starting on 06/06/2020. In general, a typical Dificid course is 10 days but patient's history of C.difficile may require longer days of treatment. will also need outpatient [facility] appointment in future to discuss role of fecal stool transplant option in the future -loperamide prn for diarrhea, monitor the bowel movements, continue the Dificid Hypokalemia and hypomagnesemia and Hypophosphatemia -continue oral phosphorous supplements -following the serum electrolyte labs on 06/09/2020 and replete as needed -give BOOST supplements with meals Cirrhosis -ammonia levels not elevated on admission -hold spironolactone because of diarrhea Hypertension -on reduced metoprolol as 50 mg once daily Prolonged QTc on EKG -minimize any QT prolonging drugs. History of Migraines -no headache currently -Sumatriptan p.r.n. History of past tobacco abuse. Deep venous thrombosis prophylaxis: sequential compression devices for now. PT/OT evaluations, case management evaluation notes on 06/06/2020 "Case Tatyana reilly: Met with patient to discuss discharge plans. PT is recommending rehab & patient is agreeable. She would like to go to [facility] because she has been there in the past. We reviewed a list of SNFs for backup in the event her insurance denies [facility] and she chose [facility]. " (2) Hard of hearing: -patient needs her hearing aids from home Admission and Anticipated Discharge Date Admission Date: June 05, 2020 Subjective patient reports still with diarrhea. her labs are being drawn today to check the electrolytes. no abdominal pain. no chest pain. on room air. no shortness of breath. no dizziness. no headache. no dizziness. Review of Systems Review of Systems: All systems reviewed & are unremarkable except as noted in Subjective Physical Exam Constitutional: + thin Eyes: PERRL, conjunctivae normal, anicteric sclerae EOM intact bilaterally ENMT: external ear and nose normal, oropharynx normal Neck: trachea midline, no thyromegaly normal visual inspection Respiratory: normal respiratory effort, lungs clear to auscultation Cardiovascular: Rate/Rhythm: regular rate and regular rhythm Gastrointestinal (Abdomen): Inspection/Auscultation: normal bowel sounds Percussion/Palpation: abdomen soft Musculoskeletal: Head/Neck/Chest: normocephalic and head atraumatic Neurologic: moves all extremities Psychiatric: Orientation: alert and cooperative Results & Data Results & Data ([facility]) Vital Signs (Past 12 Hours) Vital Signs Temp Pulse Pulse Resp BP BP Pulse Ox 06/09/20 07:51 36.8 C 70 18 120/68 97 06/09/20 07:37 70 18 97 06/09/20 07:24 68 06/09/20 04:18 74 06/09/20 03:00 36.8 C 76 20 116/74 95 06/08/20 22:00 36.6 C 81 16 128/71 96 (1) AMS (altered mental status) Altered mental status type: somnolence Qualified Code(s): R40.0 - Somnolence
[2020-06-09 09:47] LABS: BUN Creatinine Ratio 6.5 (10-20); Creatinine Clr Calc Pharmacy 152.5 ml/min; Est GFR (African American) 130.1; Est GFR (Non-African American) 112.3; Magnesium 1.9 mg/dl (1.8-2.4); Phosphorus 2.9 mg/dl (2.5-4.9); Potassium 3.4 mmol/L (3.5-5.1)
[2020-06-09] MEDS ORDERED: MAGNESIUM SULFATE / D5W 1 GM/100 ML BAG IV ONE ×2 (10:19→17:00)
[2020-06-09] MEDS: LOPERAMIDE HCL 2 MG CAP PO PRN (16:57)
[2020-06-10] MEDS ORDERED: FIDAXOMICIN 200 MG TAB PO SCH
[2020-06-10] MEDS: ALBUTEROL HFA 8 GM INHALER INH SCH ×3 (07:11→15:15)
[2020-06-10] MEDS: SACCHAROMYCES BOULARDII 250 MG CAP PO SCH (09:04)
[2020-06-10] MEDS: FIDAXOMICIN 200 MG TAB PO SCH (09:04)
[2020-06-10] MEDS: CEROVITE ADV FORMULA TAB PO SCH (09:05)
[2020-06-10] MEDS: ASCORBIC ACID 500 MG TAB PO SCH (09:05)
[2020-06-10] MEDS: MAGNESIUM OXIDE 400 MG TAB PO SCH (09:05)
[2020-06-10] MEDS: POTASSIUM CHLORIDE 20 MEQ TABCR PO SCH (09:05)
[2020-06-10] MEDS: FEXOFENADINE HCL 180 MG TAB PO SCH (09:05)
[2020-06-10] MEDS: CALCIUM 600MG + VIT D 400 IU TAB PO SCH (09:05)
[2020-06-10] MEDS: FERROUS SULFATE 325 MG TAB PO SCH (09:05)
[2020-06-10] MEDS: POT PHOSPHATE MONOBASIC W/ SOD TAB PO SCH (09:05)
[2020-06-10] MEDS: METOPROLOL SUCC 50MG EXT REL TAB PO SCH (09:06)
[2020-06-10] MEDS: FLUTICASONE PROPIONATE NA SPR 16 GM BTL SCH (09:06)
[2020-06-10 09:52] LABS: Hematocrit (blood only) 35.7 % (37-47); Hemoglobin 11.7 g/dL (12.0-16.0); Mean Corpuscular Hgb Conc 32.8 g/dL (32-36); Mean Corpuscular Volume 94.7 fL (80-100); Mean Platelet Volume 12.2 fL (7.4-10.4); Platelet Count 73 K/uL (130-400); RDW Coefficient of Variation 15.6 % (11.5-14.5); RDW Standard Deviation 53.7 fL (36.4-46.3); Red Blood Count 3.77 M/uL (4.2-5.4); White Blood Count 3.63 K/uL (4.8-10.8)
[2020-06-10 09:53] LABS: Basophils # (auto) 0.02 K/uL (0-0.2); Basophils % (auto) 0.6 %; Immature Granulocytes # (auto) 0.02 K/uL (0.00-0.02); Immature Granulocytes % (auto) 0.6 %; Lymphocytes # (auto) 0.63 K/uL (1.2-3.4); Lymphocytes % (auto) 17.4 %; Monocytes # (auto) 0.33 K/uL (0.11-0.59); Monocytes % (auto) 9.1 %; Neutrophils # (auto) 2.23 K/uL (1.4-6.5); Neutrophils % (auto) 61.3 %
[2020-06-10 09:54] LABS: Albumin Level 2.3 gm/dl (3.4-5.0); BUN Creatinine Ratio 5.2 (10-20); Calcium 8.1 mg/dl (8.5-10.1); Creatinine Clr Calc Pharmacy 109.7 ml/min; Est GFR (African American) 116.8; Est GFR (Non-African American) 100.8; Magnesium 2.1 mg/dl (1.8-2.4); Potassium 4.1 mmol/L (3.5-5.1)
[2020-06-10 09:56] LABS: Albumin Globulin Ratio 0.6 (0.9-2); Bilirubin,Total 0.4 mg/dl (0.2-1); Globulin 3.6 gm/dl (2.5-4.0); Total Protein 5.9 gm/dl (6.4-8.2)
--- NOTE | 2020-06-10 10:11 | Hospitalist Progress Note ---
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 Much of the history is provided by EMS and through the patient's , as the patient herself is unable to answer questions. Evidently the patient has a past history of recurrent C. difficile with sepsis. [facility], and had been doing fairly well at home. She is typically able to ambulate with her walker and participate in activities of daily living with the help of her . Evidently her noticed that she was more tired than normal today when he checked on her around 8 AM. The continue to check on her throughout the day, and when she did not answer his questions tonight, he contacted EMS. Upon arrival to the facility the patient has large amounts of foul-smelling stool from her neck down to her legs. Patient was diligently cleaned by nursing. The patient evidently has not had any new medication changes. No reports of fever symptoms" -patient was given IV fluids and electrolytes and again started on antibiotics because of continues to be C.difficile carrier with positive toxin and abdominal imaging of patterson-colitis -06/05/2020 day time assessments: Patient with dentures. responds to questions but sometimes only says "yes" because she lacks her home hearing aids. she also notes that her needs to bring the glasses to help with the vision. patient can recall being at home watching TV. "I must have fell asleep" she reports when I asked her what was the last thing she remembered she remembered prior to finding herself in the hospital. could not get more answers from her in review of systems -06/06/2020: patient now has hearing aides which was brought in by her and glasses, she is communicating better as she can hear. She feels "wiped out" but not in distress. she reports frequent diarrhea at home. no pain of chest, abdomen, no headache, no dizziness. telemetry with asymptomatic bradycardia -patient baseline mental status since then C.difficile infection, recurrent colitis and diarrhea from C.difficile -multiple hospitalizations with C.difficile positive toxin and antibiotic treatments with Vancomycin -hospitalists have inquired in the past whether patient needs fecal transplant evaluation eventually on prior admissions -was given oral Vancomycin and IV Flagyl from admission and switched to Dificid as BID starting on 06/06/2020 -In general, a typical Dificid course is 10 days but patient's history of C.difficile may require longer days of treatment -06/09/2020, 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 await insurance decision on Dificid medication -patient has follow up appointment set up for primary care doctor on 06/16/2020 11:00 AM Provider Alberto Borrego III, MD Department [facility] and gastroenterology clinic 06/23/2020 11:00 AM Provider MADALYN Garg Department Gastroenterology, [facility] to discuss if further GI needs such as fecal transplant option if needed Hypokalemia and hypomagnesemia and Hypophosphatemia -as of 06/10/2020 patient's serum potassium, serum magnesium, serum phosphorous are optimized -patient will likely still benefit with daily oral potassium of 20 meq daily and daily oral magnesium oxide of 400 mg daily -BOOST supplements with meals Cirrhosis -ammonia levels not elevated on admission -hold spironolactone because of diarrhea, likely can stop this on discharge given patient's propensity for diarrhea and electrolyte losses Hypertension -on reduced metoprolol as 50 mg once daily, should be discharged on this dosing Prolonged QTc on EKG -minimize any QT prolonging drugs. History of Migraines -no headache currently -Sumatriptan p.r.n. History of past tobacco abuse. Deep venous thrombosis prophylaxis: sequential compression devices for now. PT/OT evaluations, case management evaluation notes: patient is functionally improved and plans will be to discharge to home when Dificid medication can be obtained as outpatient (2) Hard of hearing: -patient needs her hearing aids from home Admission and Anticipated Discharge Date Admission Date: June 05, 2020 Subjective -06/10/2020, patient reports recent stool is firmer. await insurance decision on Dificid medication -patient has follow up appointment set up for primary care doctor on 06/16/2020 11:00 AM Provider Alberto Borrego III, MD Department [facility] and gastroenterology clinic 06/23/2020 11:00 AM Provider MADALYN Garg Department Gastroenterology, [facility] to discuss if further GI needs such as fecal transplant option if needed no chest pain, no shortness of breath, no palpitations, no headache. no dizziness. no nausea. Review of Systems Review of Systems: All systems reviewed & are unremarkable except as noted in Subjective Physical Exam Constitutional: + thin Eyes: PERRL, conjunctivae normal, anicteric sclerae EOM intact bilaterally ENMT: external ear and nose normal, oropharynx normal Neck: trachea midline, no thyromegaly normal visual inspection Respiratory: normal respiratory effort, lungs clear to auscultation Cardiovascular: Rate/Rhythm: regular rate and regular rhythm Gastrointestinal (Abdomen): Inspection/Auscultation: normal bowel sounds Percussion/Palpation: abdomen soft Musculoskeletal: Head/Neck/Chest: normocephalic and head atraumatic Neurologic: moves all extremities Psychiatric: Orientation: alert and cooperative Results & Data Results & Data ([facility]) Vital Signs (Past 12 Hours) Vital Signs Temp Pulse Pulse Resp BP BP Pulse Ox 06/10/20 07:32 36.8 C 69 16 113/62 95 06/10/20 07:23 66 06/10/20 07:14 68 18 96 06/10/20 04:00 36.6 C 69 18 117/71 96 06/09/20 23:00 36.8 C 81 18 106/60 96 (1) AMS (altered mental status) Altered mental status type: somnolence Qualified Code(s): R40.0 - Somnolence
--- NOTE | 2020-06-10 15:24 | Discharge Summary ---
Date of Service June 10, 2020 Admission HPI Per Admitting Provider DATE OF ADMISSION: 06/05/2020 CHIEF COMPLAINT: Altered mental status. HISTORY OF PRESENT ILLNESS: A 60-year-old female with past medical history significant for recurrent C. diff colitis, hypertension, mood disorder, schizophrenia, cirrhosis as per records, past tobacco abuse as per records, chronic thrombocytopenia, history of drug abuse as per records, history of recent left hip fracture status post surgery, history of UTIs, acute sinusitis, major depression, history of migraines. The patient lives with her . The patient recently admitted on 04/20/2020 with recurrent C. diff colitis and discharged to [facility] on 04/24/2020. She was treated with long course of p.o. vancomycin. Also seen by GI at that time. As per the discharge summary, she was supposed to follow with GI before she stopped p.o. vancomycin. The patient got discharged from [facility] around May 07 as per and she finished her vancomycin about couple of weeks ago. Apparently, she was doing fine until yesterday when she was found to be lethargic, not getting up from the bed, he checked her again, and she was still drowsy and not speaking so he called EMS. When EMS arrived, as per the ER physician, she was found with full of stools. In the ER, it took about 45 minutes to clean her up. Currently, still drowsy, opens eyes on calling and when asked how she is doing and anything bothering her, she is says no, but could not get any history from the patient.As per the , since she came from [facility], she is walking with a walker. She is eating okay. No nausea, no vomiting, no complaints of chest, headache, neck pain or chest pain or abdominal pain, no fever, no chills. She has some dry cough today. Could not get any history from the patient. C. diff is positive in the ER again. Hemodynamics are stable. Principal Diagnosis Altered mental status likely from dehydration from diarrhea at home Auditory Impairments Clostridium difficile infection, recurrent; colitis and diarrhea from Clostridium difficile Hypokalemia and Hypomagnesemia and Hypophosphatemia Cirrhosis Hypertension Prolonged QTc on EKG Discharge Exam Constitutional + thin Eyes PERRL, conjunctivae normal, anicteric sclerae EOM intact bilaterally ENMT external ear and nose normal, oropharynx normal Neck trachea midline, no thyromegaly normal visual inspection Respiratory normal respiratory effort, lungs clear to auscultation Cardiovascular Rate/Rhythm: regular rate and regular rhythm Gastrointestinal (Abdomen) Inspection/Auscultation: normal bowel sounds Percussion/Palpation: abdomen soft Musculoskeletal Head/Neck/Chest: normocephalic and head atraumatic Neurologic moves all extremities Psychiatric Orientation: alert and cooperative Discharge Data Allergies Allergy/AdvReac Type Severity Reaction Status Date / Time Penicillins Allergy Severe ANAPHYLAXIS Verified 04/02/20 21:12 hydrocodone AdvReac Intermediate Nausea Unverified 04/02/20 21:12 [From Lorcet (hydrocodone)] Consultations 06/05/20 02:53 ED Decision to Admit Stat 06/05/20 05:51 Consult Case Management - Discharge Planning Routine 06/05/20 08:00 Consult Gastroenterology Routine Ordered Studies 06/05/20 01:17 CT head/brain wo con Urgent 06/05/20 04:29 CT abd pelvis wo con Urgent Hospital Course (1) AMS (altered mental status): Altered mental status likely from dehydration from diarrhea at home Auditory Impairments -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 Much of the history is provided by EMS and through the patient's , as the patient herself is unable to answer questions. Evidently the patient has a past history of recurrent C. difficile with sepsis. She was admitted and subsequently discharged from [facility] on 05/07/2020, and had been doing fairly well at home. She is typically able to ambulate with her walker and participate in activities of daily living with the help of her . Evidently her noticed that she was more tired than normal today when he checked on her around 8 AM. The continue to check on her throughout the day, and when she did not answer his questions tonight, he contacted EMS. Upon arrival to the facility the patient has large amounts of foul-smelling stool from her neck down to her legs. Patient was diligently cleaned by nursing. The patient evidently has not had any new medication changes. No reports of fever symptoms" -patient was given IV fluids and electrolytes and again started on antibiotics because of continues to be C.difficile carrier with positive toxin and abdominal imaging of patterson-colitis -06/05/2020 day time assessments: Patient with dentures. responds to questions but sometimes only says "yes" because she lacks her home hearing aids. she also notes that her needs to bring the glasses to help with the vision. patient can recall being at home watching TV. "I must have fell asleep" she reports when I asked her what was the last thing she remembered she remembered prior to finding herself in the hospital. could not get more answers from her in review of systems -06/06/2020: patient now has hearing aides which was brought in by her and glasses, she is communicating better as she can hear. She feels "wiped out" but not in distress. she reports frequent diarrhea at home. no pain of chest, abdomen, no headache, no dizziness. telemetry with asymptomatic bradycardia -patient baseline mental status since then C.difficile infection, recurrent colitis and diarrhea from C.difficile -multiple hospitalizations with C.difficile positive toxin and antibiotic treatments with Vancomycin -hospitalists have inquired in the past whether patient needs fecal transplant evaluation eventually on prior admissions -was given oral Vancomycin and IV Flagyl from admission and switched to Dificid as BID starting on 06/06/2020 -In general, a typical Dificid course is 10 days but patient's history of C.difficile may require longer days of treatment -06/09/2020, porter sample [employer] for insurance authorization for 10 day outpatient treatment of Dificid -06/10/2020, patient reports recent stool is firmer. Patient will go home with 2 doses of Dificid and she will bed shipped 10 day supply of Dificid 200 mg twice a day for 10 more days as per porter sample case [facility] [place] [place] [address] and 10 day supply of potassium 20 meq daily and magnesium 400 mg daily has been sent there, and loperamide 2 mg every 8 hours as needed for loose stools patient encouraged to take BOOST supplements with meals patient has follow up appointment set up for primary care doctor on 06/16/2020 11:00 AM Provider Alberto Borrego III, MD Department Family Practice [facility] and gastroenterology clinic 06/23/2020 11:00 AM Provider MADALYN Garg Department Gastroenterology, [facility] to discuss if further GI needs such as fecal transplant option if needed Hypokalemia and hypomagnesemia and Hypophosphatemia -as of 06/10/2020 patient's serum potassium, serum magnesium, serum phosphorous are optimized -patient will likely still benefit with daily oral potassium of 20 meq daily and daily oral magnesium oxide of 400 mg daily -BOOST supplements with meals Cirrhosis -ammonia levels not elevated on admission -hold spironolactone because of diarrhea, no further spironolactone on discharge given patient's propensity for diarrhea and electrolyte losses Hypertension -on reduced metoprolol as 50 mg once daily, should be discharged on this dosing Prolonged QTc on EKG -minimize any QT prolonging drugs. History of Migraines -no headache currently -Sumatriptan p.r.n. History of past tobacco abuse. Deep venous thrombosis prophylaxis: sequential compression devices for now. PT/OT evaluations, case management evaluation notes: patient is functionally improved and plans will be to discharge to home when Dificid medication can be obtained as outpatient (2) Hard of hearing: -patient needs her hearing aids from home Total Time Total Time Spent Total Time Spent (In Minutes): 40 minutes Total Time Includes: Examination of the Patient, Discharge Planning, Medication Reconciliation and Communication With Other Providers Discharge Plan Discharge Items Patient Disposition: Home - Home Health Services Reason For Visit: ALTERED MENTAL STATUS Discharge Diagnosis: Altered mental status likely from dehydration from diarrhea at home Auditory Impairments Clostridium difficile infection, recurrent; colitis and diarrhea from Clostridium difficile Hypokalemia and Hypomagnesemia and Hypophosphatemia Cirrhosis Hypertension Prolonged QTc on EKG Condition on Discharge: Good Activity: Resume your previous activity Non-emergency contact: Primary Care Provider and Hiv Cts Specialist Call non-emergency contact if: you have any medication questions Follow-up/Referrals: PCP,NO [Primary Care Provider] - Diet: Regular Diet Texture: Easy to Chew Addtl Attending Provider Instructions: upcoming appointments 06/16/2020 11:00 AM Provider Alberto Borrego III, MD Department Family [facility] 06/23/2020 11:00 AM Provider MADALYN Garg Department Gastroenterology, [facility] patient's preferred pharmacy is [facility] [place] [address] and 10 day supply of potassium 20 meq daily and magnesium 400 mg daily has been sent there, and loperamide 2 mg every 8 hours as needed for loose stools patient encouraged to take BOOST supplements with meals Patient will go home with 2 doses of Dificid and she will bed shipped 10 day supply of Dificid 200 mg twice a day for 10 more days as per porter sample case no further spironolactone on discharge given patient's propensity for diarrhea and electrolyte losses Pending Studies at Discharge: No Stand-Alone Forms: My [facility] [employer], Smoking Cessation Medications and DC Order Prescriptions: New potassium chloride [Klor-Con M20] 20 mEq Tablet,Er Particles/Crystals 20 meq PO QAM 10 Days Qty: 10 RF: 0 magnesium oxide 400 mg (241.3 mg magnesium) Tablet 400 mg PO QAM 10 Days Qty: 10 RF: 0 Dificid 200 mg Tablet 200 mg PO BID 10 Days Qty: 20 RF: 0 loperamide 2 mg Capsule 2 mg PO Q8H PRN (Reason: loose stool) 10 Days Qty: 30 RF: 0 Continued olopatadine 0.1 % Drops 1 drp OPB BID RF: 0 ondansetron HCl [Zofran] 4 mg Tablet 4 mg PO Q6H PRN (Reason: nausea/vomiting) RF: 0 albuterol sulfate [ProAir HFA] 90 mcg/actuation Hfa Aerosol Inhaler 2 puff INHALATION QID RF: 0 fluticasone propionate 50 mcg/actuation [place],Suspension 2 spray INTRANASAL DAILY RF: 0 ascorbic acid (vitamin C) [Vitamin C] 500 mg Tablet 500 mg PO DAILY RF: 0 fexofenadine 180 mg Tablet 180 mg PO DAILY RF: 0 Calcium 600 + D(3) 600 mg calcium- 200 unit Capsule 1 cap PO BID RF: 0 metoprolol succinate 50 mg Tablet Extended Release 24 Hr 50 mg PO BID RF: 0 potassium chloride 20 mEq tablet extended release 20 meq PO DAILY Qty: 15 RF: 0 magnesium oxide 400 mg (241.3 mg magnesium) tablet 400 mg PO DAILY Qty: 15 RF: 0 multivitamin with minerals Tablet 1 tab PO DAILY RF: 0 sumatriptan succinate [Imitrex] 25 mg Tablet 25 mg PO DIRECTED PRN (Reason: Migraine Headache) RF: 0 ferrous sulfate [iron] 325 mg (65 mg iron) Tablet 0 mg PO DAILY RF: 0 Phosphorous 250 mg Tablet 1 tab PO DAILY RF: 0 Saccharomyces boulardii [Florastor] 250 mg Capsule 250 mg PO BID RF: 0 Discontinued acetaminophen 325 mg Tablet 650 mg PO Q6H PRN (Reason: Pain) RF: 0 vancomycin 125 mg Capsule 125 mg PO DAILY RF: 0 spironolactone 25 mg Tablet 25 mg PO DAILY RF: 0 Discharge Orders: Discharge Order (Routine); Ordered 06/10/20 Ordered By: Joshua David Admission Data Admit Date/Time: 06/05/20 04:28 Attending Provider: Joshua David Admit Provider: Brent Quintero Primary Care Provider: PCP,NO Other Providers: [facility] ; [facility] ; [facility] ; Brent Quintero ; Aristeo Mckenzie ; Carola Sal ; Na White ; Rosa Maria Gonzalez ; Andre Soliz ; Xavier Bo ; Marie Solorio ; Kalyani Velez ; Gino Ramos ; Bebo Stoner ; Vicenta Coley ; Vicki Medellin ; Maggi Rousseau ; Evelin Arvizu ; David Ariza Other Interventions: Discharge Summary Assessment (RN) Last Done: 06/10/20 15:39
[2020-06-11] MEDS ORDERED: MAGNESIUM OXIDE 400 MG TAB PO SCH (09:00)
[2020-06-11] MEDS ORDERED: POTASSIUM CHLORIDE 20 MEQ TABCR PO SCH (09:00)
== END 2020-06-10 16:58 | disposition home health service (06) | DRG 373 ==
LOC: ED 00:44 → 2W 04:28

== ENCOUNTER 2020-07-06 00:19 | Inpatient (IN) ==
[2020-07-06] MEDS ORDERED: SODIUM CHLORIDE 0.9% 1000ML 500 ML IV ONE (00:43)
[2020-07-06 01:01] LABS: Appearance Urine Clear (Clear); Bacteria Urine Automated 4+ (Negative); Bilirubin Urine Negative (Negative); Blood Urine 2+ (Negative); Color Urine Dark Yellow; Epithelial Cell Urine Auto 20-30 /lpf (0-5); Glucose Urine UA Negative (Negative); Ketones Urine Negative (Negative); Leukocyte Esterase Urine Trace (Negative); Nitrite Urine Positive (Negative); Protein Urine Negative (Negative); RBC Urine Automated 0-4 /hpf (0-4); Specific Gravity Urine 1.023 (1.000-1.030); Urobilinogen Urine Negative (Negative)
[2020-07-06 01:18] LABS: Hematocrit (blood only) 43.4 % (37-47); Hemoglobin 14.7 g/dL (12.0-16.0); Mean Corpuscular Hemoglobin 30.7 pg (25-34); Mean Corpuscular Hgb Conc 33.9 g/dL (32-36); Mean Corpuscular Volume 90.6 fL (80-100); RDW Coefficient of Variation 15.1 % (11.5-14.5); RDW Standard Deviation 50.2 fL (36.4-46.3); Red Blood Count 4.79 M/uL (4.2-5.4); White Blood Count 9.88 K/uL (4.8-10.8)
[2020-07-06 01:19] LABS: Mean Platelet Volume 11.5 fL (7.4-10.4); Platelet Count 63 K/uL (130-400)
[2020-07-06 01:26] LABS: INR 1.3 (0.9-1.1); Prothrombin Time 13.1 Seconds (9.0-12.0)
[2020-07-06 01:34] LABS: Albumin Level 3.5 gm/dl (3.4-5.0); BUN Creatinine Ratio 10.7 (10-20); Calcium 8.6 mg/dl (8.5-10.1); Creatinine Clr Calc Pharmacy 66.3 ml/min; Est GFR (African American) 91.5; Est GFR (Non-African American) 78.9; Magnesium 1.8 mg/dl (1.8-2.4); Potassium 3.1 mmol/L (3.5-5.1)
[2020-07-06 01:43] LABS: Basophils # (auto) 0.01 K/uL (0-0.2); Basophils % (auto) 0.1 %; Echinocytes 1+; Immature Granulocytes # (auto) 0.01 K/uL (0.00-0.02); Immature Granulocytes % (auto) 0.1 %; Lymphocytes # (auto) 0.41 K/uL (1.2-3.4); Lymphocytes % (auto) 4.1 %; Monocytes # (auto) 0.62 K/uL (0.11-0.59); Monocytes % (auto) 6.3 %; Neutrophils # (auto) 8.83 K/uL (1.4-6.5); Neutrophils % (auto) 89.4 %; Ovalocytes 1+
[2020-07-06 01:45] LABS: Albumin Globulin Ratio 0.8 (0.9-2); Bilirubin,Total 1.2 mg/dl (0.2-1); Globulin 4.3 gm/dl (2.5-4.0); Thyroid Stimulating Hormone 0.85 uIu/ml (0.300-4.500); Total Protein 7.8 gm/dl (6.4-8.2)
[2020-07-06] MEDS ORDERED: CEFEPIME 2,000 MG/20 ML VIAL IV STA (02:36)
[2020-07-06] MEDS ORDERED: ONDANSETRON INJ 2 MG/ML 2 ML VIAL IV PRN (05:07)
[2020-07-06] MEDS ORDERED: POTASSIUM CHLORIDE / WTR 10 MEQ/100 ML PLCT IV STA (05:09)
[2020-07-06] MEDS ORDERED: MAGNESIUM SULFATE / D5W 1 GM/100 ML BAG IV ONE (05:09)
[2020-07-06] MEDS ORDERED: NITROGLYCERIN SL 0.4 MG/TAB TAB SL PRN (05:26)
[2020-07-06] MEDS ORDERED: SODIUM CHLORIDE 0.9% 1000ML 1,000 ML IV SCH (05:26)
[2020-07-06] MEDS ORDERED: ACETAMINOPHEN W/CODEINE #3 1 TAB PO PRN (05:26)
[2020-07-06] MEDS ORDERED: LORATADINE 10 MG TAB PO PRN (05:26)
[2020-07-06] MEDS ORDERED: ACETAMINOPHEN 325 MG TAB PO PRN ×2 (05:26→10:49)
[2020-07-06] MEDS ORDERED: CEFEPIME CONSULT ACTIVE PRN (05:43)
--- NOTE | 2020-07-06 06:19 | History and Physical Report ---
DATE OF ADMISSION: 07/06/2020 CHIEF COMPLAINT: Altered mental status. HISTORY OF PRESENT ILLNESS: A 60-year-old female with past medical history significant for recurrent C. diff colitis, hypertension, mood disorder, history of schizophrenia as per records, cirrhosis as per records, past tobacco abuse, chronic thrombocytopenia, history of drug abuse as per records, history of UTIs, depression, migraines. The patient lives with her . The patient has recurrent admissions for C. diff, last admission was on 06/05/2020 and discharged on 06/10/2020. She was discharged on Dificid, she completed the course. As per the , her diarrhea never completely resolved. She still has some diarrhea, but last 2-3 days her diarrhea got worse, seemed to be getting dehydrated and yesterday she developed fever, poor appetite, and feeling generalized weakness and she was somewhat confused and they brought her into the hospital. Currently, she is lethargic but as per she is very hard of hearing and she does not respond to questions when she does not hear, but he thinks she was mildly confused at home. Her hemodynamics are stable. Her temperature is 37.9 in the ER. No leukocytosis. Lactate was 2.4. Ammonia was less than 10. Urine was positive for +4 bacteria, nitrite. COVID-19 PCR was negative. Chest x-ray was unremarkable. CT of the head preliminary report unremarkable. As per the , the patient has complained of some abdominal pain, no chest pain, no shortness of breath, no cough, no complaints of headache. ALLERGIES: PENICILLINS, HYDROCODONE. PAST MEDICAL HISTORY: As mentioned above. PAST SURGICAL HISTORY: Femur repair in 2018, appendectomy, left femur repair in January 2020. MEDICATIONS: Currently seem to be Tylenol 650 mg p.o. q. 6 hours p.r.n., ascorbic acid 500 mg p.o. daily, calcium plus vitamin D 1 tablet p.o. b.i.d., hydrochlorothiazide 25 mg p.o. daily, loratadine 10 mg p.o. daily p.r.n., metoprolol succinate 50 mg p.o. b.i.d., vitamin with minerals 1 tablet p.o. daily, albuterol p.r.n. FAMILY HISTORY: Significant for mother had colon cancer, diabetes; father had AL at age of 48; sister had lung cancer. SOCIAL HISTORY: , lives with her , smokes half pack a day for 28 years. No alcohol use, no drug use. REVIEW OF SYSTEMS: Unobtainable as the patient is lethargic. PHYSICAL EXAMINATION: VITAL SIGNS: T-max 37.9, pulse 105, respiratory rate 23, blood pressure 160/65, oxygen 100% on room air. HEENT: No pallor, no icterus. Pupils equal, round, reactive to light. NECK: No JVD, no neck masses. CARDIOVASCULAR: S1, S2 heard, regular rate and rhythm, no murmur, no gallop. Tachycardia. RESPIRATORY SYSTEM: Normal AP diameter. No accessory muscle use. No wheezing, no crackles. ABDOMEN: Soft, bowel sounds present. No distention. CENTRAL NERVOUS SYSTEM: Drowsy, opens eyes on calling and moves extremities on painful stimuli. EXTREMITIES: No edema, no erythema seen. Right toes, wounds and dressing seen. LABORATORY DATA: WBC 9.8, hemoglobin 14.7, hematocrit 43.4, platelets 63. PT 13.1, INR 1.3. Sodium 141, potassium 3.1, chloride 109, bicarbonate 21, BUN 9, creatinine 0.8, serum glucose 117, lactate 2.4, calcium 8.6, magnesium 1.8, total bilirubin 1.2, AST 38, ALT 39, alkaline phosphatase 141. Ammonia less than 10. TSH 0.5. Urinalysis, +2 blood, positive for nitrite, +4 bacteria. COVID-19 PCR negative. IMAGING DATA: CT of the head preliminary report unremarkable. Chest x-ray unremarkable. EKG: Sinus tachycardia with rate of 112. Prolonged QT at 647. ASSESSMENT AND PLAN: This is a 60-year-old female who presents with altered mental status and found to have a urinary tract infection. 1. Altered mental status, most likely secondary to urinary tract infection. She is also having ongoing diarrhea, could be possibly recurrent C. diff. We will check the urine culture and blood culture. Empirically starting on cefepime. IV fluids and we will also check stool for C. diff. Monitor in the tele floor. 2. Elevated lactic acid. Possible sepsis with tachycardia and fever and UTI. Antibiotics as above and we will also follow for C. diff. 3. Prolonged QT. Hypokalemia, we will replace the potassium. We will repeat the EKG. Avoid QT prolonging drugs. 4. Hypertension. Holding hydrochlorothiazide .Metoprolol with holding parameters. 5. History of cirrhosis. Holding hydrochlorothiazide. We are going to monitor for any volume overload. Getting fluids. 6. History of past tobacco abuse. 7. Thrombocytopenia, seems chronic from her cirrhosis. Follow the labs. 8. Deep venous thrombosis prophylaxis, sequential compression devices. DISPOSITION: Closely monitor in the tele floor. Level 1 full code as per my discussion with the . PT and OT prior to discharge. Social service to help with discharge planning. JENNIFERD
[2020-07-06] MEDS ORDERED: ACETAMINOPHEN 1,000 MG/100 ML VIAL IV PRN ×2 (06:22→17:27)
--- NOTE | 2020-07-06 06:38 | Emergency Department Note ---
History of Present Illness General Chief complaint: Lethargic Stated complaint: LETHARGIC/FEVER Time Seen by Provider: 07/06/20 00:30 Source: patient and RN notes reviewed Mode of arrival: EMS Limitations: no limitations and altered mental status History of Present Illness Provider complaint: Lethargic, fever This patient arrives via ambulance obtunded with complaints from family that she has been having fevers. She has had several episodes of diarrhea. History is severely limited due to patient inability to answer questions. Upon review of records however the patient has had a history of hyperammonemia and metabolic encephalopathy. She also has a history of sepsis. Nursing staff states she lives at home and her son called the ambulance. Home Medications Home Medications Medication Instructions Recorded Confirmed Type Calcium 600 + D(3) 1 cap PO BID 04/20/20 07/06/20 History ascorbic acid (vitamin C) [Vitamin 500 mg PO DAILY 04/20/20 07/06/20 History C] metoprolol succinate 50 mg PO BID 04/20/20 07/06/20 History multivitamin with minerals 1 tab PO DAILY 06/05/20 07/06/20 History acetaminophen [Tylenol] 650 mg PO Q6H PRN 07/06/20 07/06/20 History acetaminophen-codeine 1 - 2 tab PO Q6H PRN 07/06/20 07/06/20 History hydrochlorothiazide 25 mg PO DAILY 07/06/20 07/06/20 History loratadine 10 mg PO DAILY PRN 07/06/20 07/06/20 History Allergies Allergy/AdvReac Type Severity Reaction Status Date / Time Penicillins Allergy Severe ANAPHYLAXIS Verified 07/06/20 02:13 hydrocodone AdvReac Intermediate Nausea Unverified 07/06/20 02:13 [From Lorcet (hydrocodone)] Past Med/Surg History Medical History Bipolar disorder Cirrhosis Depression Emphysema of lung Based on imaging History of CVA (cerebrovascular accident) Osteoporosis Pulmonary nodule 9 mm RML subsolid nodule CT chest 02/29/20. 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: No Beliefs That Will Affect Care: None marital status: Current Living Situation: Spouse Other Information That Helps Us Care for You: No Feels Safe at Home: Yes Safety Concerns: Feels Safe At This Time Review of Systems Unobtainable due to reduced consciousness Physical Exam Vital Signs Vital Signs - 24 hr 07/06/20 00:11 07/06/20 00:32 07/06/20 02:11 Temperature 36.6 C 37.9 C H Temperature Source Oral Oral Pulse Rate 117 H Pulse Rate [Apical] 112 H Respiratory Rate 22 20 Respiratory Effort / Characteristics Non-Labored Non-Labored Spontaneous Respiratory Depth Normal Normal Blood Pressure 155/75 H Blood Pressure [Right Arm] 161/70 H Blood Pressure Mean 101 Blood Pressure Mean [Right Arm] 100 Pulse Oximetry 98 98 98 Oxygen Delivery Method Room Air Room Air Room Air Sepsis Recent Fever Within 48 Hours Yes Sepsis New/Unexplained Change in Mental Status No Sepsis Action Taken by Nursing Previously Notified 07/06/20 02:30 07/06/20 03:00 07/06/20 03:16 Temperature Temperature Source Pulse Rate 114 H 110 H 110 H Pulse Rate [Apical] Respiratory Rate 19 20 20 Respiratory Effort / Characteristics Respiratory Depth Blood Pressure 156/68 H 152/76 H 164/72 H Blood Pressure [Right Arm] Blood Pressure Mean 91 87 95 Blood Pressure Mean [Right Arm] Pulse Oximetry 99 99 99 Oxygen Delivery Method Sepsis Recent Fever Within 48 Hours Sepsis New/Unexplained Change in Mental Status Sepsis Action Taken by Nursing 07/06/20 03:30 Temperature Temperature Source Pulse Rate 105 H Pulse Rate [Apical] Respiratory Rate 23 Respiratory Effort / Characteristics Respiratory Depth Blood Pressure 160/65 H Blood Pressure [Right Arm] Blood Pressure Mean 101 Blood Pressure Mean [Right Arm] Pulse Oximetry 100 Oxygen Delivery Method Sepsis Recent Fever Within 48 Hours Sepsis New/Unexplained Change in Mental Status Sepsis Action Taken by Nursing Vital signs reviewed. Noted to be afebrile General: Chronically ill-appearing 60-year-old female, somnolent. HEENT: No scleral icterus, PERRLA, neck supple. Dry mucous membranes Cardiovascular: Tachycardic and regular Pulmonary: Clear to auscultation bilaterally, normal work of breathing. Abdomen: Soft, nontender, nondistended, positive bowel sounds. Musculoskeletal: No peripheral edema, atraumatic Neurologic: Patient somnolent and only minimally arousable to painful stimuli. Skin: Warm, dry, no rash Course Administered Medications Magnesium Sulfate/Dextrose (Magnesium Sulfate / D5w) 1 gm in 100 mls @ 50 mls/hr IV ONE ONE Stop: 07/06/20 07:08 Last Admin: 07/06/20 05:47 Dose: 50 mls/hr Documented by: [id number] Discontinued Medications Sodium Chloride (Nss 1000ml) 500 mls @ 999 mls/hr IV .Q31M ONE Stop: 07/06/20 01:13 Last Infusion: 07/06/20 01:58 Dose: 0 mls/hr Documented by: [id number] Admin: 07/06/20 01:17 Dose: 999 mls/hr Documented by: [id number] Cefepime HCl (Maxipime) 2,000 mg in 20 mls @ 5 mls/min IV NOW STA Stop: 07/06/20 02:39 Last Admin: 07/06/20 03:12 Dose: 5 mls/min Documented by: [id number] Potassium Chloride (K Ash / Wtr) 10 meq in 100 mls @ 100 mls/hr IV Q1H STA Stop: 07/06/20 06:08 Last Admin: 07/06/20 05:47 Dose: 100 mls/hr Documented by: [id number] Critical Care Time Critical Care Time: Yes I have personally spent greater than 33 minutes of critical care time in the direct management of this patient. This includes bedside care, interpretation of diagnostic studies, and testing, discussion with consultants, patient, and family members, and other required patient management activities. This 33 minutes is in excess of all separately billable procedures. Medical Decision Making Differential Diagnosis Differential diagnosis: Etiologies such as viral syndrome, otitis, pharyngitis, pneumonia, influenza, meningitis, urinary tract infection, septic arthritis, soft tissue infectious process, intra-abdominal process, sepsis, bacteremia, as well as others were entertained. Medical Records Attestation: I reviewed the patient's medical records. Home Medications Current Medication List: was personally reviewed by me Laboratory Data Attestation: I reviewed the patient's lab results. Result diagrams: 07/06/20 01:09 07/06/20 01:09 Lab Results 07/06/20 07/06/20 07/06/20 Range/Units 00:50 01:09 01:09 WBC 9.88 (4.8-10.8) K/uL RBC 4.79 (4.2-5.4) M/uL Hgb 14.7 (12.0-16.0) g/dL Hct 43.4 (37-47) % MCV 90.6 (80-100) fL MCH 30.7 (25-34) pg MCHC 33.9 (32-36) g/dL RDW Std Deviation 50.2 H (36.4-46.3) fL RDW Coeff of Dewayne 15.1 H (11.5-14.5) % Plt Count 63 L (130-400) K/uL MPV 11.5 H (7.4-10.4) fL Immature Gran % (Auto) 0.1 % Neut % (Auto) 89.4 % Lymph % (Auto) 4.1 % [place] % (Auto) 6.3 % Eos % (Auto) 0.0 % Baso % (Auto) 0.1 % Neut # (Auto) 8.83 H (1.4-6.5) K/uL Lymph # (Auto) 0.41 L (1.2-3.4) K/uL [place] # (Auto) 0.62 H (0.11-0.59) K/uL Eos # (Auto) 0.00 (0-0.5) K/uL Baso # (Auto) 0.01 (0-0.2) K/uL Immature Gran # (Auto) 0.01 (0.00-0.02) K/uL Ovalocytes 1+ Echinocytes 1+ PT 13.1 H (9.0-12.0) Seconds INR 1.3 H (0.9-1.1) Sodium (136-145) mmol/L Potassium (3.5-5.1) mmol/L Chloride (98-107) mmol/L Carbon Dioxide (21-32) mmol/L Anion Gap (3-11) BUN (7-18) mg/dl Creatinine (0.6-1.2) mg/dl Est Cr Clr Drug Dosing ml/min Est GFR ( Amer) Est GFR (Non-Af Amer) BUN/Creatinine Ratio (10-20) Glucose (70-99) mg/dl Lactate (0.4-2.0) mmol/L Calcium (8.5-10.1) mg/dl Magnesium (1.8-2.4) mg/dl Total Bilirubin (0.2-1) mg/dl AST (15-37) U/L ALT (12-78) U/L Alkaline Phosphatase (45-117) U/L Ammonia (11-32) umol/L Total Protein (6.4-8.2) gm/dl Albumin (3.4-5.0) gm/dl Globulin (2.5-4.0) gm/dl Albumin/Globulin Ratio (0.9-2) TSH (0.300-4.500) uIu/ml Urine Color Dark Yellow Urine Appearance Clear (Clear) Urine pH 5.0 (4.5-7.5) Ur Specific [place] 1.023 (1.000-1.030) Urine Protein Negative (Negative) Urine Glucose (UA) Negative (Negative) Urine Ketones Negative (Negative) Urine Blood 2+ H (Negative) Urine Nitrite Positive A (Negative) Urine Bilirubin Negative (Negative) Urine Urobilinogen Negative (Negative) Ur Leukocyte Esterase Trace H (Negative) Urine WBC (Auto) 10-30 H (0-5) /hpf Urine RBC (Auto) 0-4 (0-4) /hpf U Hyaline Cast (Auto) 5-10 H (0-5) /lpf U Epithel Cells (Auto) 20-30 H (0-5) /lpf Urine Bacteria (Auto) 4+ H (Negative) COVID-19 Eval Order COVID-19 PCR (Negative) 07/06/20 07/06/20 07/06/20 Range/Units 01:09 01:24 02:11 WBC (4.8-10.8) K/uL RBC (4.2-5.4) M/uL Hgb (12.0-16.0) g/dL Hct (37-47) % MCV (80-100) fL MCH (25-34) pg MCHC (32-36) g/dL RDW Std Deviation (36.4-46.3) fL RDW Coeff of Dewayne (11.5-14.5) % Plt Count (130-400) K/uL MPV (7.4-10.4) fL Immature Gran % (Auto) % Neut % (Auto) % Lymph % (Auto) % [place] % (Auto) % Eos % (Auto) % Baso % (Auto) % Neut # (Auto) (1.4-6.5) K/uL Lymph # (Auto) (1.2-3.4) K/uL [place] # (Auto) (0.11-0.59) K/uL Eos # (Auto) (0-0.5) K/uL Baso # (Auto) (0-0.2) K/uL Immature Gran # (Auto) (0.00-0.02) K/uL Ovalocytes Echinocytes PT (9.0-12.0) Seconds INR (0.9-1.1) Sodium 141 (136-145) mmol/L Potassium 3.1 L (3.5-5.1) mmol/L Chloride 109 H (98-107) mmol/L Carbon Dioxide 21 (21-32) mmol/L Anion Gap 11.0 (3-11) BUN 9 (7-18) mg/dl Creatinine 0.81 (0.6-1.2) mg/dl Est Cr Clr Drug Dosing 66.3 ml/min Est GFR ( Amer) 91.5 Est GFR (Non-Af Amer) 78.9 BUN/Creatinine Ratio 10.7 (10-20) Glucose 117 H (70-99) mg/dl Lactate 2.3 H* (0.4-2.0) mmol/L Calcium 8.6 (8.5-10.1) mg/dl Magnesium 1.8 (1.8-2.4) mg/dl Total Bilirubin 1.2 H (0.2-1) mg/dl AST 38 H (15-37) U/L ALT 39 (12-78) U/L Alkaline Phosphatase 141 H (45-117) U/L Ammonia < 10.0 L (11-32) umol/L Total Protein 7.8 (6.4-8.2) gm/dl Albumin 3.5 (3.4-5.0) gm/dl Globulin 4.3 H (2.5-4.0) gm/dl Albumin/Globulin Ratio 0.8 L (0.9-2) TSH 0.850 (0.300-4.500) uIu/ml Urine Color Urine Appearance (Clear) Urine pH (4.5-7.5) Ur Specific [place] (1.000-1.030) Urine Protein (Negative) Urine Glucose (UA) (Negative) Urine Ketones (Negative) Urine Blood (Negative) Urine Nitrite (Negative) Urine Bilirubin (Negative) Urine Urobilinogen (Negative) Ur Leukocyte Esterase (Negative) Urine WBC (Auto) (0-5) /hpf Urine RBC (Auto) (0-4) /hpf U Hyaline Cast (Auto) (0-5) /lpf U Epithel Cells (Auto) (0-5) /lpf Urine Bacteria (Auto) (Negative) COVID-19 Eval Order COVID-19 PCR (Negative) 07/06/20 07/06/20 07/06/20 Range/Units 03:00 03:00 03:10 WBC (4.8-10.8) K/uL RBC (4.2-5.4) M/uL Hgb (12.0-16.0) g/dL Hct (37-47) % MCV (80-100) fL MCH (25-34) pg MCHC (32-36) g/dL RDW Std Deviation (36.4-46.3) fL RDW Coeff of Dewayne (11.5-14.5) % Plt Count (130-400) K/uL MPV (7.4-10.4) fL Immature Gran % (Auto) % Neut % (Auto) % Lymph % (Auto) % [place] % (Auto) % Eos % (Auto) % Baso % (Auto) % Neut # (Auto) (1.4-6.5) K/uL Lymph # (Auto) (1.2-3.4) K/uL [place] # (Auto) (0.11-0.59) K/uL Eos # (Auto) (0-0.5) K/uL Baso # (Auto) (0-0.2) K/uL Immature Gran # (Auto) (0.00-0.02) K/uL Ovalocytes Echinocytes PT (9.0-12.0) Seconds INR (0.9-1.1) Sodium (136-145) mmol/L Potassium (3.5-5.1) mmol/L Chloride (98-107) mmol/L Carbon Dioxide (21-32) mmol/L Anion Gap (3-11) BUN (7-18) mg/dl Creatinine (0.6-1.2) mg/dl Est Cr Clr Drug Dosing ml/min Est GFR ( Amer) Est GFR (Non-Af Amer) BUN/Creatinine Ratio (10-20) Glucose (70-99) mg/dl Lactate 2.4 H* (0.4-2.0) mmol/L Calcium (8.5-10.1) mg/dl Magnesium (1.8-2.4) mg/dl Total Bilirubin (0.2-1) mg/dl AST (15-37) U/L ALT (12-78) U/L Alkaline Phosphatase (45-117) U/L Ammonia (11-32) umol/L Total Protein (6.4-8.2) gm/dl Albumin (3.4-5.0) gm/dl Globulin (2.5-4.0) gm/dl Albumin/Globulin Ratio (0.9-2) TSH (0.300-4.500) uIu/ml Urine Color Urine Appearance (Clear) Urine pH (4.5-7.5) Ur Specific [place] (1.000-1.030) Urine Protein (Negative) Urine Glucose (UA) (Negative) Urine Ketones (Negative) Urine Blood (Negative) Urine Nitrite (Negative) Urine Bilirubin (Negative) Urine Urobilinogen (Negative) Ur Leukocyte Esterase (Negative) Urine WBC (Auto) (0-5) /hpf Urine RBC (Auto) (0-4) /hpf U Hyaline Cast (Auto) (0-5) /lpf U Epithel Cells (Auto) (0-5) /lpf Urine Bacteria (Auto) (Negative) COVID-19 Eval Order Covid19 Done at [facility] COVID-19 PCR NEGATIVE (Negative) Imaging Data Attestation: I personally reviewed and interpreted this imaging study as follows: My Impression: Chest x-ray to my interpretation reveals chronic interstitial change, normal mediastinal silhouette Radiologist's Impression: CT HEAD: Impression: No intracranial hemorrhage or other acute intracranial abnormality. Mild parenchymal volume loss with chronic microvascular ischemic changes. No mass lesion, mass effect, or hydrocephalus. Paranasal sinuses and mastoid air cells are clear. Radiologist: Justin Mcduffie MD Study ready at 01:46 and initial results transmitted at 01:54 ECG Data Attestation: I personally reviewed and interpreted this ECG as follows: Indication: + tachycardia Rate (beats per minute): 112 Rhythm: + sinus tachycardia ECG Intervals/blocks: + Prolonged QT (647) ECG [place]: + Normal ECG ST segments: + Nonspecific ST abnormalities ECG Findings: no PACs and no PVCs Blood Pressure Blood Pressure Findings: Elevated blood pressure Blood Pressure Disposition: further management by hospitalist MDM Narrative This patient was evaluated and appeared to be in no significant distress. Patient was somnolent but otherwise stable. IV access was obtained by EMS prior to arrival. She did receive 500 cc of normal saline. Additional IV fluids were ordered. The patient's WBC is normal at 9.88. INR is 1.3. UA was obtained by straight cath and is likely to represent infection. It is contaminated and will be sent for culture. Lactate is 2.3 and the ammonia level is less than 10. CT scan of the head reveals no evidence of acute intracranial pathology. Chest x- ray reveals chronic change. Patient's repeat lactate did not improve. Additional IV hydration was ordered. Patient was given 2 g of IV cefepime as she has tolerated this medication in the past. The case was discussed with Dr. Quintero of the hospitalist service who will evaluate the patient for admission and further management. Impression & Plan Fever, Acute UTI (urinary tract infection), Encephalopathy acute Discharge Plan Visit Data Chief Complaint: Lethargic Stated Complaint: LETHARGIC/FEVER Other Complaint: Fever ED Provider: Lexi Bliss Discharge Problem: Fever, Acute UTI (urinary tract infection), Encephalopathy acute Patient Disposition: Admitted As Inpatient Discharge Instructions Interventions: ED Discharge Assessment Last Done: 07/06/20 05:10 Discharge Problem: Fever Qualifiers: Fever type: unspecified Qualified Code(s): R50.9 - Fever, unspecified
--- NOTE | 2020-07-06 06:41 | XRay Report ---
XR chest 1V portable CLINICAL HISTORY: weakness dyspnea COMPARISON STUDY: 04/20/2020 FINDINGS: Mild interstitial prominence throughout both hemithoraces. No well-defined focal infiltrate . Mild chronic elevation left hemidiaphragm. IMPRESSION: Mild nonspecific chronic interstitial change throughout both hemithoraces. ACT 112: Negative or not required by law. The above report was generated using voice recognition software. It may contain grammatical, syntax or spelling errors. Electronically signed by: Faisal Chung M.D. 07/06/2020 6:40 AM
--- NOTE | 2020-07-06 07:07 | CT Scan Report ---
CT head/brain wo con CT DOSE: 691.05 mGy.cm HISTORY: Mental status change ams TECHNIQUE: Multiaxial CT images of the head were performed without the use of intravenous contrast. A dose lowering technique was utilized adhering to the principles of ALARA. Comparison: 06/05/2020 Findings: The paranasal sinuses and mastoid air cells are clear. The calvarium and skull base are int act. The ventricles and sulci are within normal limits. There is no mass, hematoma, midline shift, or acute infarct. Impression: No acute intracranial abnormality. Age-related atrophy and chronic small vessel change ACT 112: Negative or not required by law. The above report was generated using voice recognition software. It may contain grammatical, syntax or spelling errors. Electronically signed by: Faisal Chung M.D. 07/06/2020 7:06 AM
[2020-07-06 07:52] LABS: Cdiff Antigen Positive
[2020-07-06 07:58] LABS: Hematocrit (blood only) 39.1 % (37-47); Hemoglobin 13.1 g/dL (12.0-16.0); Mean Corpuscular Hemoglobin 30.3 pg (25-34); Mean Corpuscular Hgb Conc 33.5 g/dL (32-36); Mean Corpuscular Volume 90.5 fL (80-100); Red Blood Count 4.32 M/uL (4.2-5.4); White Blood Count 11.28 K/uL (4.8-10.8)
[2020-07-06 08:02] LABS: Mean Platelet Volume 11.6 fL (7.4-10.4); Platelet Count 62 K/uL (130-400)
[2020-07-06 08:14] LABS: BUN Creatinine Ratio 13.7 (10-20); Calcium 8.6 mg/dl (8.5-10.1); Creatinine Clr Calc Pharmacy 96.7 ml/min; Est GFR (African American) 112.4; Phosphorus 2.2 mg/dl (2.5-4.9)
[2020-07-06 08:17] LABS: Basophils # (auto) 0.02 K/uL (0-0.2); Basophils % (auto) 0.2 %; Immature Granulocytes # (auto) 0.03 K/uL (0.00-0.02); Immature Granulocytes % (auto) 0.3 %; Lymphocytes # (auto) 0.43 K/uL (1.2-3.4); Lymphocytes % (auto) 3.8 %; Monocytes # (auto) 0.89 K/uL (0.11-0.59); Monocytes % (auto) 7.9 %; Neutrophils # (auto) 9.91 K/uL (1.4-6.5); Neutrophils % (auto) 87.8 %
[2020-07-06 08:23] LABS: Cdiff Toxin A+B Positive Cdiff Toxin (Negative)
[2020-07-06] MEDS ORDERED: POTASSIUM PHOS 3 MMOL/1 ML INFUSION IV STA (08:54)
[2020-07-06] MEDS ORDERED: LOPERAMIDE HCL 2 MG CAP PO PRN (08:54)
--- NOTE | 2020-07-06 08:58 | Hospitalist Progress Note ---
Date of Service July 06, 2020 Assessment & Plan (1) Encephalopathy acute: Acute Metabolic Encephalopathy from recurrent C.difficile infection and diarrhea and C.difficile colitis (pancolitis) Possible urinary tract infection Lactic Acidosis -This is a 60 year old female with history of persistent C.difficile with last hospitalization being discharged on Dificid (last admission was on 06/05/2020 and discharged on 06/10/2020) with outpatient gastroenterology followup. Patient has in the past with diarrhea or loose bowel movements. as per this admission History/Physical "As per the , her diarrhea never completely resolved. She still has some diarrhea, but last 2-3 days her diarrhea got worse, seemed to be getting dehydrated and yesterday she developed fever, poor appetite, and feeling generalized weakness and she was somewhat confused and they brought her into the hospital. Currently, she is lethargic but as per she is very hard of hearing and she does not respond to questions when she does not hear, but he thinks she was mildly confused at home." -admission WBC 11K. admission lactic acidosis of 2.3 resolved with IV fluids -admission CT abdomen (Examination limited due to the lack of intravenous and oral contrast): Hepatic cirrhosis with sequela of portal hypertension with splenomegaly and multiple varices. No evidence of bowel obstruction. No evidence of free air. Diffuse colonic wall thickening indicative of a pancolitis. No renal, ureteral, or bladder calculi identified Healing fracture left inferior pubic ramus -continue contact precautions -give Dificid BID, give lactobacillus while on IV antibiotics. admitting team concerned of possible urinary tract infection and started her empirically on cefepime but her urines in the past have been generally not with pathogenic urinary bacteria. if admission and urine blood cultures returns as negative then will stop IV cefepime -will appreciate gastroenterology evaluation -PT/OT evaluations Hypokalemia, Hypophosphatemia -loperamide prn if diarrhea or loose stools -low serum potassium and low serum phosphorous -give supplemental potassium to target a serum potassium of 3.5 to 4 and to target a normal serum phosphorous level -dysphagia screening, speech and swallow consult, Carroting Machine Operator consult, give Boost supplements with meals Hypertension -holding hydrochlorothiazide while repleting the electrolytes -continue home dose metoprolol Prolonged QTc on EKG -chronic -on telemetry Cirrhosis Thrombocytopenia, chronic -ammonia levels not elevated on admission Auditory impairments -known to have hearing aides from previous admissions, will need to contact her to bring them to her while hospitalized Deep venous thrombosis prophylaxis: sequential compression devices. Admission and Anticipated Discharge Date Admission Date: July 06, 2020 Subjective patient is known to have auditory impairments. she is drowsy but responds to some questions when speaking to her in loud voice. she reports that she has abdomen pain. full review of systems could not be done as patient drowsy Review of Systems Review of Systems: All systems reviewed & are unremarkable except as noted in Subjective Physical Exam Constitutional: + frail appearing Eyes: PERRL, conjunctivae normal, anicteric sclerae EOM intact bilaterally ENMT: external ear and nose normal, oropharynx normal Neck: trachea midline, no thyromegaly normal visual inspection Cardiovascular: Rate/Rhythm: + tachycardic Gastrointestinal (Abdomen): Inspection/Auscultation: abdomen normal to inspection Percussion/Palpation: + abdomen tender and abdomen soft Musculoskeletal: Head/Neck/Chest: normocephalic and head atraumatic Neurologic: drowsy Results & Data Results & Data ([facility]) Vital Signs (Past 12 Hours) Vital Signs Temp Pulse Pulse Pulse Resp BP BP 07/06/20 07:16 36.9 C 111 H 19 139/67 07/06/20 05:45 38.5 C H 114 H 20 171/69 H 07/06/20 05:00 105 H 22 149/67 H 07/06/20 03:30 105 H 23 160/65 H 07/06/20 03:16 110 H 20 164/72 H 07/06/20 03:00 110 H 20 152/76 H 07/06/20 02:30 114 H 19 156/68 H 07/06/20 02:11 37.9 C H 112 H 20 161/70 H 07/06/20 00:32 07/06/20 00:11 36.6 C 117 H 22 155/75 H Pulse Ox 07/06/20 07:16 99 07/06/20 05:45 97 07/06/20 05:00 98 07/06/20 03:30 100 07/06/20 03:16 99 07/06/20 03:00 99 07/06/20 02:30 99 07/06/20 02:11 98 07/06/20 00:32 98 07/06/20 00:11 98
[2020-07-06] MEDS ORDERED: POTASSIUM PHOSPHATE 24 MMOL in SODIUM CHLORIDE 0.9% 500 ML IV ONE (09:30)
[2020-07-06] MEDS: POTASSIUM CHLORIDE / WTR 10 MEQ/100 ML PLCT IV SCH ×2 (09:39→10:49)
[2020-07-06] MEDS: CEROVITE ADV FORMULA TAB PO SCH (10:08)
[2020-07-06] MEDS: CALCIUM 600MG + VIT D 400 IU TAB PO SCH ×2 (10:08→21:46)
[2020-07-06] MEDS: FIDAXOMICIN 200 MG TAB PO SCH ×2 (10:08→21:52)
[2020-07-06] MEDS: LACTOBACILLUS ACIDOPHILUS (FLORANEX) TAB PO SCH ×3 (10:08→18:09)
[2020-07-06] MEDS: ASCORBIC ACID 500 MG TAB PO SCH (10:09)
[2020-07-06] MEDS: METOPROLOL SUCC 50MG EXT REL TAB PO SCH ×2 (10:09→21:52)
--- NOTE | 2020-07-06 11:05 | Electrocardiogram Report ---
Test Reason : Blood Pressure : / mmHG Vent. Rate : 112 BPM Atrial Rate : 112 BPM P-R Int : 112 ms QRS Dur : 094 ms QT Int : 474 ms P-R-T Axes : 000 005 031 degrees QTc Int : 647 ms Sinus tachycardia Nonspecific ST abnormality Abnormal ECG When compared with ECG of 05-JUN-2020 07:51, No significant change was found Confirmed by Fletcher Santiago ([id number]) on 07/06/2020 11:04:55 AM Referred By: REFERRED SELF Confirmed By:Michele Santiago
--- NOTE | 2020-07-06 11:09 | Electrocardiogram Report ---
Test Reason : Blood Pressure : / mmHG Vent. Rate : 108 BPM Atrial Rate : 108 BPM P-R Int : 158 ms QRS Dur : 092 ms QT Int : 490 ms P-R-T Axes : 038 052 057 degrees QTc Int : 656 ms Likely sinus, but an atrial flutter should be considered Nonspecific ST and T wave abnormality Prolonged QT Abnormal ECG When compared with ECG of 06-JUL-2020 00:35, (unconfirmed) Nonspecific T wave abnormality, worse in Lateral leads Confirmed by Fletcher Santiago ([id number]) on 07/06/2020 11:09:01 AM Referred By: REFERRED SELF Confirmed By:Michele Santiago
[2020-07-06] MEDS ORDERED: METOPROLOL TARTRATE 1 MG/ML VIAL IV PRN (12:32)
[2020-07-06] MEDS ORDERED: SODIUM CHLORIDE 0.9% 500 ML IV SCH (12:45)
[2020-07-06] MEDS: CEFEPIME 2,000 MG in SYRINGE 7.5 ML IV SCH (13:15)
--- NOTE | 2020-07-06 14:56 | Gastrointestinal Consultation ---
Date of Consultation July 06, 2020 History of Present Illness Attending Physician: Joshua David MD Reason for conslut: persistent diarrhea HPI: 60 you female with complicated med history including - h/o compensated cirrhosis, with imaging showing cirrhotic liver and stigmata of portal HTN and labs shoing persistent t penia. No record of decompensation that I could find; also no record of serologic w/u. - H/o recurrent C diff, initially dx'd in March s/p long course of Vanco. Re [facility] hosp just 2 weeks ago for AMS that was reportedly due to dehydration from diarrhea. C diff positive at that time, rx'd with Dificid x [address] showed colon wall thickening which appears to be related to portal HTN. She is now admit for AMS, fever. Febrile to 101 on admission, tachy but hypertensive. Labs unremarkable except for WBC 11; Ammonia low. No report of diarrhea in hospitalist notes. SInce admit, on cefepeime, incontinent of stool x 2, stool for C diff positive. A/P: Cirrhosis, h/o c diff Admit with AMS, fever - Regarding cirrhosis - her AMS is not clearly related to HE. Would defer lactulose, xifaxan, although may reconsider if she is thought to be persistently confused. Consider uls to screen for ascites/SBP as cause of fever. - Regarding C diff - Rec colestid rather than loperamide for symptom control. Can cont Dificid; once course complete, plan for maintenance Vanco. Can consider flex sig if diarrhea persistent but would defer for now. Allergies Allergy/AdvReac Type Severity Reaction Status Date / Time Penicillins Allergy Severe ANAPHYLAXIS Verified 07/06/20 02:13 hydrocodone AdvReac Intermediate Nausea Unverified 07/06/20 02:13 [From Lorcet (hydrocodone)] Home Medications Home Medications Medication Instructions Recorded Confirmed Type Calcium 600 + D(3) 1 cap PO BID 04/20/20 07/06/20 History ascorbic acid (vitamin C) [Vitamin 500 mg PO DAILY 04/20/20 07/06/20 History C] metoprolol succinate 50 mg PO BID 04/20/20 07/06/20 History multivitamin with minerals 1 tab PO DAILY 06/05/20 07/06/20 History acetaminophen [Tylenol] 650 mg PO Q6H PRN 07/06/20 07/06/20 History acetaminophen-codeine 1 - 2 tab PO Q6H PRN 07/06/20 07/06/20 History hydrochlorothiazide 25 mg PO DAILY 07/06/20 07/06/20 History loratadine 10 mg PO DAILY PRN 07/06/20 07/06/20 History Patient History Medical History Bipolar disorder Cirrhosis Depression Emphysema of lung Based on imaging History of CVA (cerebrovascular accident) Osteoporosis Pulmonary nodule 9 mm RML subsolid nodule CT chest 02/29/20. F/U CT recommended 3-6 months Schizophrenia Vitamin D deficiency Surgical History History of appendectomy History of shoulder surgery History of total hip replacement femur fracture one month later with repair, both in 2007 Status post open reduction and internal fixation (ORIF) of fracture Family History Father Myocardial infarction Mother Colorectal cancer Social History Smoking Status: Unknown if ever smoked Tobacco Type: Cigarettes Second Hand Exposure: No; Hx Alcohol Use: No Hx Substance Use: No Preferred Language: Khmer Communication Ability: Unable Animal Maintenance Supervisor Required: No Beliefs That Will Affect Care: None marital status: Current Living Situation: Spouse Other Information That Helps Us Care for You: No Feels Safe at Home: Yes Safety Concerns: Feels Safe At This Time Physical Exam Constitutional: Awake, no distress Respiratory: normal respiratory effort, lungs clear to auscultation Cardiovascular: RRR, no murmur, no edema Gastrointestinal (Abdomen): Non tender, no obv ascites Psychiatric: Alert. Answers simple questions appropriately, but speech mildly tangential Results & Data ([place]) Vital Signs (Past 12 Hours) Vital Signs Temp Pulse Pulse Pulse Resp BP BP 07/06/20 13:15 112 H 131/71 07/06/20 13:14 112 H 131/71 07/06/20 11:51 36.8 C 111 H 16 160/78 H 07/06/20 07:16 36.9 C 111 H 19 139/67 07/06/20 05:45 38.5 C H 114 H 20 171/69 H 07/06/20 05:00 105 H 22 149/67 H 07/06/20 03:30 105 H 23 160/65 H 07/06/20 03:16 110 H 20 164/72 H 07/06/20 03:00 110 H 20 152/76 H Pulse Ox 07/06/20 13:15 07/06/20 13:14 07/06/20 11:51 96 07/06/20 07:16 99 07/06/20 05:45 97 07/06/20 05:00 98 07/06/20 03:30 100 07/06/20 03:16 99 07/06/20 03:00 99
[2020-07-06 15:49] LABS: BUN Creatinine Ratio 15.6 (10-20); Calcium 8.2 mg/dl (8.5-10.1); Creatinine Clr Calc Pharmacy 114.6 ml/min; Est GFR (African American) 118.9; Est GFR (Non-African American) 102.6; Potassium 3.4 mmol/L (3.5-5.1)
[2020-07-06] MEDS ORDERED: D5W AND 1/2NSS 1,000 ML IV SCH (17:30)
[2020-07-06] MEDS ORDERED: POTASSIUM CHLORIDE / WTR 10 MEQ/100 ML PLCT IV ONE (17:45)
[2020-07-06] MEDS: COLESTIPOL HCL 1 GM TAB PO SCH (21:50)
[2020-07-07] MEDS: CEFEPIME 2,000 MG in SYRINGE 7.5 ML IV SCH ×2 (01:01→13:48)
[2020-07-07 06:30] LABS: Hematocrit (blood only) 36.5 % (37-47); Hemoglobin 12.2 g/dL (12.0-16.0); Mean Corpuscular Hgb Conc 33.4 g/dL (32-36); Mean Corpuscular Volume 89.9 fL (80-100); RDW Coefficient of Variation 15.3 % (11.5-14.5); RDW Standard Deviation 50.5 fL (36.4-46.3); Red Blood Count 4.06 M/uL (4.2-5.4); White Blood Count 6.39 K/uL (4.8-10.8)
[2020-07-07 06:51] LABS: Mean Platelet Volume 10.9 fL (7.4-10.4); Platelet Count 57 K/uL (130-400)
[2020-07-07 06:52] LABS: Basophils # (auto) 0.02 K/uL (0-0.2); Basophils % (auto) 0.3 %; Eosinophils # (auto) 0.28 K/uL (0-0.5); Eosinophils % (auto) 4.4 %; Immature Granulocytes # (auto) 0.01 K/uL (0.00-0.02); Immature Granulocytes % (auto) 0.2 %; Lymphocytes # (auto) 0.63 K/uL (1.2-3.4); Lymphocytes % (auto) 9.9 %; Monocytes # (auto) 0.71 K/uL (0.11-0.59); Monocytes % (auto) 11.1 %; Neutrophils # (auto) 4.74 K/uL (1.4-6.5); Neutrophils % (auto) 74.1 %; Ovalocytes 1+; Toxic Vacuolation 1+
[2020-07-07 07:07] LABS: BUN Creatinine Ratio 12.4 (10-20); Calcium 8.5 mg/dl (8.5-10.1); Creatinine Clr Calc Pharmacy 100.4 ml/min; Est GFR (African American) 114.8; Est GFR (Non-African American) 99.1; Potassium 2.8 mmol/L (3.5-5.1)
[2020-07-07] MEDS ORDERED: POTASSIUM CHLORIDE 20 MEQ/15 ML UDC PO STA (07:11)
[2020-07-07 07:19] LABS: Phosphorus 1.5 mg/dl (2.5-4.9)
[2020-07-07] MEDS ORDERED: POTASSIUM PHOS 3 MMOL/1 ML INFUSION IV STA (07:36)
[2020-07-07] MEDS: POTASSIUM CHLORIDE / WTR 10 MEQ/100 ML PLCT IV SCH ×3 (07:43→15:21)
[2020-07-07] MEDS ORDERED: POTASSIUM PHOSPHATE 24 MMOL in SODIUM CHLORIDE 0.9% 500 ML IV ONE (08:00)
[2020-07-07] MEDS ORDERED: MULTI-VITAMIN INFUSION 10 ML, THIAMINE HCL 100 MG, FOLIC ACID 1 MG in SODIUM CHLORIDE 0... IV ONE (08:00)
--- NOTE | 2020-07-07 08:42 | Ultrasound Report ---
US liver CLINICAL HISTORY: eval liver, look for hcc; screen ascites pain. Nausea. COMPARISON STUDY: No previous studies for comparison. FINDINGS: Normal gallbladder. Common bile duct slightly prominent at 9 mm. Mild nonspecific hepatic heterogeneity. Pancreas and right kidney are unremarkable. IMPRESSION: 1. Hepatic heterogeneity considered nonspecific. Early hepatic cirrhosis is not excluded. 2. Prominent common bile duct at 9 mm with remainder of the biliary ductal system normal. 3. Normal gallbladder. ACT 112: Negative or not required by law. The above report was generated using voice recognition software. It may contain grammatical, syntax or spelling errors. Electronically signed by: Faisal Chung M.D. 07/07/2020 8:41 AM
[2020-07-07] MEDS: POT PHOSPHATE MONOBASIC W/ SOD TAB PO SCH ×4 (08:54→19:49)
[2020-07-07] MEDS: LACTOBACILLUS ACIDOPHILUS (FLORANEX) TAB PO SCH ×3 (08:55→16:17)
[2020-07-07] MEDS: ASCORBIC ACID 500 MG TAB PO SCH (08:55)
[2020-07-07] MEDS: METOPROLOL SUCC 50MG EXT REL TAB PO SCH (08:56)
[2020-07-07] MEDS: CEROVITE ADV FORMULA TAB PO SCH (08:59)
[2020-07-07] MEDS: FIDAXOMICIN 200 MG TAB PO SCH ×2 (09:02→19:58)
[2020-07-07] MEDS ORDERED: POTASSIUM CHLORIDE 20 MEQ TABCR PO STA (10:06)
[2020-07-07] MEDS ORDERED: BUTALBITAL/ACETAMIN/CAFFEINE TAB PO PRN (12:03)
--- NOTE | 2020-07-07 12:03 | Hospitalist Progress Note ---
Date of Service July 07, 2020 Assessment & Plan (1) Encephalopathy acute: Acute Metabolic Encephalopathy from recurrent C.difficile infection and diarrhea and C.difficile colitis (pancolitis) Possible urinary tract infection Lactic Acidosis -This is a 60 year old female with history of persistent C.difficile with last hospitalization being discharged on Dificid (last admission was on 06/05/2020 and discharged on 06/10/2020) with outpatient gastroenterology followup. Patient has in the past with diarrhea or loose bowel movements. as per this admission History/Physical "As per the , her diarrhea never completely resolved. She still has some diarrhea, but last 2-3 days her diarrhea got worse, seemed to be getting dehydrated and yesterday she developed fever, poor appetite, and feeling generalized weakness and she was somewhat confused and they brought her into the hospital. Currently, she is lethargic but as per she is very hard of hearing and she does not respond to questions when she does not hear, but he thinks she was mildly confused at home." -admission WBC 11K. admission lactic acidosis of 2.3 resolved with IV fluids -admission CT abdomen (Examination limited due to the lack of intravenous and oral contrast): Hepatic cirrhosis with sequela of portal hypertension with splenomegaly and multiple varices. No evidence of bowel obstruction. No evidence of free air. Diffuse colonic wall thickening indicative of a pancolitis. No renal, ureteral, or bladder calculi identified Healing fracture left inferior pubic ramus -continue contact precautions -give Dificid BID, give lactobacillus while on IV antibiotics. admitting team concerned of possible urinary tract infection and started her empirically on cefepime but her urines in the past have been generally not with pathogenic urinary bacteria. if admission and urine blood cultures returns as negative then will stop IV cefepime -PT/OT evaluations -as of noon of 07/07/2020, patient is more alert and oriented Hypokalemia, Hypophosphatemia -low serum potassium and low serum phosphorous on admission -give supplemental potassium to target a serum potassium of 3.5 to 4 and to target a normal serum phosphorous level. 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 Early hepatic cirrhosis is not excluded. Prominent common bile duct at 9 mm with remainder of the biliary ductal system normal. Normal gallbladder." Auditory impairments -known to have hearing aides from previous admissions, her her to bring to bring them to hospital Deep venous thrombosis prophylaxis: sequential compression devices. Admission and Anticipated Discharge Date Admission Date: July 06, 2020 Subjective Patient more awake and alert when seen by hospitalist doctor. She is baseline hard of hearing. We were able to carry conversation. Patient overnight had tried to take her own supply of Fioricet and this was taken away from her. I asked her to take medications as given by nursing staff and she agreed. She is able to tell me of her recent diarrhea or loose bowel movements at home which she had frequently. no chest pain. breathing on room air. no shortness of breath. no dizziness. no current acute abdomen discomforts. Review of Systems Review of Systems: All systems reviewed & are unremarkable except as noted in Subjective Physical Exam Constitutional: + frail appearing Eyes: PERRL, conjunctivae normal, anicteric sclerae EOM intact bilaterally ENMT: external ear and nose normal, oropharynx normal Neck: trachea midline, no thyromegaly normal visual inspection Respiratory: normal respiratory effort, lungs clear to auscultation Cardiovascular: Rate/Rhythm: regular rate and regular rhythm Gastrointestinal (Abdomen): Inspection/Auscultation: abdomen normal to inspection Percussion/Palpation: abdomen soft Musculoskeletal: Head/Neck/Chest: normocephalic and head atraumatic Neurologic: PERRL, EOMI, accommodation nl, no face palsy, no dysarthria Psychiatric: Orientation: alert and cooperative Results & Data Results & Data ([facility]) Vital Signs (Past 12 Hours) Vital Signs Temp Pulse Resp BP BP Pulse Ox 07/07/20 11:58 36.5 C 81 16 128/70 95 07/07/20 08:52 99 H 151/71 H 07/07/20 07:12 36.4 C L 97 H 19 153/72 H 96 07/07/20 03:24 36.8 C 100 H 16 160/77 H 96
--- NOTE | 2020-07-07 12:21 | Gastroenterology Progress Note ---
Date of Service July 07, 2020 Assessment & Plan (1) Cirrhosis: (2) C. difficile colitis: (3) AMS (altered mental status): Pt is a 60 y/o female w hx of cirrhosis, currently admitted with AMS, recurrent Cdiff, urine cx growing gram negative bacilli. Head CT, CXR unremarkable. Liver us wo mention of ascites - Unfortunately we are not performing fecal transplant for recurrent Cdiff given lack of donor availabilities (Covid 19 concerns). - Continue Cdiff treatment w Colestipol and Dificid as dosed - Add Xifaxan 550mg BID. Though no signs of asterixis or previous hx of HE, would see if this may help improve mental status. Admission and Anticipated Discharge Date Admission Date: July 06, 2020 Supervising Physician Co-Signing Physician Notes Attending attestation I have seen, examined this patient, and agree with the findings and above by our mid-level provider MADALYN Ricci, with the following additions: -Seems to be clearing - Restart Xifaxin - No physical signs of HE - Will continue to follow Subjective Pt lethargic, hard to rouse and very hard of hearing. Denies pain. Per RN she has small amt of loose stools. Review of Systems Review of Systems: Limited due to reduced consciousness Physical Exam Constitutional: well groomed, cooperative, comfortable and + lethargic Eyes: PERRL, conjunctivae normal, anicteric sclerae ENMT: external ear and nose normal, oropharynx normal Respiratory: normal respiratory effort, lungs clear to auscultation Cardiovascular: RRR, no murmur, no edema Gastrointestinal (Abdomen): Inspection/Auscultation: + hypoactive bowel sounds Percussion/Palpation: + abdomen tender (generalized) and abdomen soft Skin: no rashes, warm and dry no jaundice Neurologic: Motor/Sensory: no asterixis Psychiatric: A+Ox3, euthymic affect Lymphatic: no lymphedema Results & Data ([facility]) Vital Signs (Past 12 Hours) Vital Signs Temp Pulse Resp BP BP Pulse Ox 07/07/20 11:58 36.5 C 81 16 128/70 95 07/07/20 08:52 99 H 151/71 H 07/07/20 07:12 36.4 C L 97 H 19 153/72 H 96 07/07/20 03:24 36.8 C 100 H 16 160/77 H 96 (1) AMS (altered mental status) Altered mental status type: somnolence Qualified Code(s): R40.0 - Somnolence
[2020-07-07 15:04] LABS: Albumin Globulin Ratio 0.7 (0.9-2); Albumin Level 2.5 gm/dl (3.4-5.0); Bilirubin,Total 0.9 mg/dl (0.2-1); Calcium 7.9 mg/dl (8.5-10.1); Creatinine Clr Calc Pharmacy 103.9 ml/min; Est GFR (African American) 116.1; Est GFR (Non-African American) 100.2; Globulin 3.5 gm/dl (2.5-4.0); Phosphorus 2.5 mg/dl (2.5-4.9); Potassium 3.3 mmol/L (3.5-5.1)
[2020-07-07] MEDS ORDERED: POTASSIUM CHLORIDE 20 MEQ TABCR PO ONE (16:00)
[2020-07-07] MEDS: RIFAXIMIN 550 MG TABLET PO SCH (19:49)
[2020-07-07] MEDS: COLESTIPOL HCL 1 GM TAB PO SCH (19:49)
[2020-07-08] MEDS: CEFEPIME 2,000 MG in SYRINGE 7.5 ML IV SCH (01:26)
[2020-07-08 07:44] LABS: Hematocrit (blood only) 35.9 % (37-47); Hemoglobin 12.1 g/dL (12.0-16.0); Mean Corpuscular Hemoglobin 30.3 pg (25-34); Mean Corpuscular Hgb Conc 33.7 g/dL (32-36); RDW Coefficient of Variation 15.4 % (11.5-14.5); Red Blood Count 3.99 M/uL (4.2-5.4); White Blood Count 4.35 K/uL (4.8-10.8)
[2020-07-08] MEDS: CEROVITE ADV FORMULA TAB PO SCH (07:47)
[2020-07-08] MEDS: ASCORBIC ACID 500 MG TAB PO SCH (07:47)
[2020-07-08] MEDS: LACTOBACILLUS ACIDOPHILUS (FLORANEX) TAB PO SCH (07:49)
[2020-07-08] MEDS: POT PHOSPHATE MONOBASIC W/ SOD TAB PO SCH ×4 (07:50→20:41)
[2020-07-08] MEDS: RIFAXIMIN 550 MG TABLET PO SCH ×3 (07:51→20:41)
[2020-07-08 08:02] LABS: Mean Platelet Volume 11.5 fL (7.4-10.4); Platelet Count 57 K/uL (130-400)
[2020-07-08 08:11] LABS: Albumin Level 2.5 gm/dl (3.4-5.0); BUN Creatinine Ratio 21.4 (10-20); Calcium 8.2 mg/dl (8.5-10.1); Est GFR (African American) 132.3; Est GFR (Non-African American) 114.2; Magnesium 1.9 mg/dl (1.8-2.4)
[2020-07-08 08:13] LABS: Basophils # (auto) 0.03 K/uL (0-0.2); Basophils % (auto) 0.7 %; Eosinophils # (auto) 0.44 K/uL (0-0.5); Eosinophils % (auto) 10.1 %; Immature Granulocytes # (auto) 0.01 K/uL (0.00-0.02); Immature Granulocytes % (auto) 0.2 %; Lymphocytes # (auto) 0.68 K/uL (1.2-3.4); Lymphocytes % (auto) 15.6 %; Monocytes # (auto) 0.38 K/uL (0.11-0.59); Monocytes % (auto) 8.7 %; Neutrophils # (auto) 2.81 K/uL (1.4-6.5); Neutrophils % (auto) 64.7 %
[2020-07-08 08:15] LABS: Albumin Globulin Ratio 0.7 (0.9-2); Globulin 3.4 gm/dl (2.5-4.0); Phosphorus 1.8 mg/dl (2.5-4.9); Total Protein 5.9 gm/dl (6.4-8.2)
[2020-07-08] MEDS ORDERED: POTASSIUM PHOS 3 MMOL/1 ML INFUSION IV STA (08:41)
[2020-07-08] MEDS ORDERED: POTASSIUM PHOSPHATE 30 MMOL in SODIUM CHLORIDE 0.9% 500 ML IV ONE (09:00)
[2020-07-08] MEDS ORDERED: POTASSIUM CHLORIDE 20 MEQ/15 ML UDC PO SCH (09:00)
--- NOTE | 2020-07-08 09:23 | Hospitalist Progress Note ---
Date of Service July 08, 2020 Assessment & Plan (1) Encephalopathy acute: Acute Metabolic Encephalopathy from recurrent C.difficile infection and diarrhea and C.difficile colitis (pancolitis) urinary tract infection Lactic Acidosis -This is a 60 year old female with history of persistent C.difficile with last hospitalization being discharged on Dificid (last admission was on 06/05/2020 and discharged on 06/10/2020) with outpatient gastroenterology followup. Patient has in the past with diarrhea or loose bowel movements. as per this admission History/Physical "As per the , her diarrhea never completely resolved. She still has some diarrhea, but last 2-3 days her diarrhea got worse, seemed to be getting dehydrated and yesterday she developed fever, poor appetite, and feeling generalized weakness and she was somewhat confused and they brought her into the hospital. Currently, she is lethargic but as per she is very hard of hearing and she does not respond to questions when she does not hear, but he thinks she was mildly confused at home." -admission WBC 11K. admission lactic acidosis of 2.3 resolved with IV fluids -admission CT abdomen (Examination limited due to the lack of intravenous and oral contrast): Hepatic cirrhosis with sequela of portal hypertension with splenomegaly and multiple varices. No evidence of bowel obstruction. No evidence of free air. Diffuse colonic wall thickening indicative of a pancolitis. No renal, ureteral, or bladder calculi identified Healing fracture left inferior pubic ramus -Dificid BID, and has been given lactobacillus when on IV antibiotics. admitting team concerned of possible urinary tract infection and started her empirically on cefepime. the admission blood cultures have returned as negative. the admission urine cultures with E.coli. since cefepime doses has been given from 07/06/2020 to 07/08/2020 will stop further antibiotics as patient completed 3 day course of antibiotic treatment -as of noon of 07/07/2020, patient is more alert and oriented -07/08/2020: gastroenterology comments on limitations in the recurrent C.difficile treatment because there are no current fecal transplants being done locally during COVID-19 pandemic at this time -continue contact precautions, PT/OT evaluations Auditory impairments -known to have hearing aides from previous admissions, her her has brought them to hospital Hypokalemia, Hypophosphatemia -low serum potassium and low serum phosphorous on admission and these levels have not been at goal to date as they increase with supplementation but not at goal by next AM labs. ; give supplemental potassium to target a serum potassium of 3.5 to 4 and to target a normal serum phosphorous level. continuing supplementation and trending the labs as of 07/08/2020 -give Boost supplements with meals, monitor the frequency of bowel movements, colestid as per gastroenterology Cirrhosis Thrombocytopenia, chronic -ammonia levels not elevated on admission -liver ultrasound on this admission with no acute changes "Hepatic heterogeneity considered nonspecific. Early hepatic cirrhosis is not excluded. Prominent common bile duct at 9 mm with remainder of the biliary ductal system normal. 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 She was noted to have tried to take her own supply of this medication (in an unlabeled bottle) on this hospital stay when it was found by nurse and then confiscated. Hospitalist looked at the pill bottle on 07/08/2020 subsequent to this event and could not tell what the actual pills were as there are no labels on the bottle -patient is encouraged to take medications as given to her by nurse when inpatient and there are prn butalbital/acetaminophen/caffeine for headache as needed in the current orders 07/07/2020 hospitalist encouraged patient's to bring patient to future [facility] gastroenterology clinic appointments which have been set up on discharge in the past but patient with multiple No Show Deep venous thrombosis prophylaxis: sequential compression devices. My colleague Dr. Medrano will be taking over the care of the patient starting on 07/09/2020 Admission and Anticipated Discharge Date Admission Date: July 06, 2020 Subjective Patient seen and examined this AM by hospitalist after she was seen by gastroenterology physician care team assistant who reported patient spoke briefly with the hearing aids. On my exam, patient generally sleeping and did not wish to rouse her from the sleep. Review of Systems Review of Systems: All systems reviewed & are unremarkable except as noted in Subjective Physical Exam Constitutional: + frail appearing ENMT: external ear and nose normal, oropharynx normal Neck: trachea midline, no thyromegaly normal visual inspection Respiratory: normal respiratory effort, lungs clear to auscultation Cardiovascular: Rate/Rhythm: regular rate and regular rhythm Gastrointestinal (Abdomen): Inspection/Auscultation: abdomen normal to inspection Percussion/Palpation: abdomen soft Musculoskeletal: Head/Neck/Chest: normocephalic and head atraumatic Psychiatric: Orientation: alert and cooperative Results & Data Results & Data ([facility]) Vital Signs (Past 12 Hours) Vital Signs Temp Pulse Pulse Resp BP Pulse Ox 07/08/20 03:54 36.8 C 75 18 145/74 H 95 07/07/20 23:53 36.4 C L 80 18 131/70 94 07/07/20 23:48 76
[2020-07-08] MEDS: FIDAXOMICIN 200 MG TAB PO SCH ×2 (10:15→20:41)
[2020-07-08] MEDS: POTASSIUM ACETATE 10 MEQ in 0.9 % SODIUM CHLORIDE 100 ML IV SCH (10:16)
--- NOTE | 2020-07-08 10:41 | Gastroenterology Progress Note ---
Date of Service July 08, 2020 Assessment & Plan (1) Cirrhosis: (2) C. difficile colitis: (3) AMS (altered mental status): Pt is a 60 y/o female w hx of cirrhosis, currently admitted with AMS, recurrent Cdiff, urine cx growing gram negative bacilli. Head CT, CXR unremarkable. Liver us wo mention of ascites - Unfortunately we are not performing fecal transplant for recurrent Cdiff given lack of donor availabilities (Covid 19 concerns). - Continue Cdiff treatment w Colestipol and Dificid as dosed. After Dificid course completed,can continue her on suppressive Vancomycin 125mg daily and recommend Infectious Disease referral (may be done in outpt f/u) to determine [place] [facility] plan for recurrent Cdiff. - Continue Xifaxan 550mg BID. Though no signs of asterixis or previous hx of HE, would see if this may help improve mental status. Admission and Anticipated Discharge Date Admission Date: July 06, 2020 Supervising Physician Co-Signing Physician Notes Attending attestation I have seen, examined this patient, and agree with the findings and above by our mid-level provider MADALYN Ricci, with the following additions We will up rifaximin dosage which may be beneficial in collaborative affect for C. difficile. Adjust colestipol, continue Dificid Subjective Pt a bit more awake, following simple commands, and answering question. ? taking Fioricet from home. She ate breakfast. She is continued to have loose stools per business rules developer of Systems Review of Systems: Limited due to reduced consciousness Physical Exam Constitutional: cooperative, comfortable and + lethargic Eyes: PERRL, conjunctivae normal, anicteric sclerae ENMT: external ear and nose normal, oropharynx normal Respiratory: Auscultation: + diminished lung sounds Cardiovascular: RRR, no murmur, no edema Gastrointestinal (Abdomen): Inspection/Auscultation: normal bowel sounds Percussion/Palpation: + abdomen tender (generalized) and abdomen soft Skin: no rashes, warm and dry no jaundice Neurologic: Motor/Sensory: no asterixis Psychiatric: Lethargic though a bit more improved that yesterday. Mostly oriented to self and place Lymphatic: no lymphedema Results & Data ([facility]) Vital Signs (Past 12 Hours) Vital Signs Temp Pulse Pulse Resp BP Pulse Ox 08/11/20 03:54 36.8 C 75 18 145/74 H 95 07/07/20 23:53 36.4 C L 80 18 131/70 94 07/07/20 23:48 76 (1) AMS (altered mental status) Altered mental status type: somnolence Qualified Code(s): R40.0 - Somnolence
[2020-07-08] MEDS: AMLODIPINE BESYLATE 5 MG TAB PO SCH (12:12)
[2020-07-08 14:35] LABS: BUN Creatinine Ratio 17.3 (10-20); Calcium 8.4 mg/dl (8.5-10.1); Creatinine Clr Calc Pharmacy 138.8 ml/min; Est GFR (African American) 128.1; Est GFR (Non-African American) 110.6; Phosphorus 3.2 mg/dl (2.5-4.9)
[2020-07-08] MEDS: COLESTIPOL HCL 1 GM TAB PO SCH (20:42)
[2020-07-09 07:23] LABS: Hematocrit (blood only) 35.7 % (37-47); Hemoglobin 12.1 g/dL (12.0-16.0); Mean Corpuscular Hemoglobin 30.5 pg (25-34); Mean Corpuscular Hgb Conc 33.9 g/dL (32-36); Mean Corpuscular Volume 89.9 fL (80-100); Mean Platelet Volume 12.3 fL (7.4-10.4); Platelet Count 73 K/uL (130-400); RDW Coefficient of Variation 15.2 % (11.5-14.5); RDW Standard Deviation 50.8 fL (36.4-46.3); Red Blood Count 3.97 M/uL (4.2-5.4); White Blood Count 4.82 K/uL (4.8-10.8)
[2020-07-09 07:24] LABS: Albumin Level 2.6 gm/dl (3.4-5.0); BUN Creatinine Ratio 15.4 (10-20); Calcium 8.2 mg/dl (8.5-10.1); Creatinine Clr Calc Pharmacy 148.3 ml/min; Est GFR (African American) 131.2; Est GFR (Non-African American) 113.2; Potassium 2.9 mmol/L (3.5-5.1)
[2020-07-09 07:24] LABS: Basophils # (auto) 0.02 K/uL (0-0.2); Basophils % (auto) 0.4 %; Eosinophils # (auto) 0.54 K/uL (0-0.5); Eosinophils % (auto) 11.2 %; Immature Granulocytes # (auto) 0.01 K/uL (0.00-0.02); Immature Granulocytes % (auto) 0.2 %; Lymphocytes # (auto) 0.77 K/uL (1.2-3.4); Monocytes # (auto) 0.44 K/uL (0.11-0.59); Monocytes % (auto) 9.1 %; Neutrophils # (auto) 3.04 K/uL (1.4-6.5); Neutrophils % (auto) 63.1 %
[2020-07-09 07:25] LABS: Albumin Globulin Ratio 0.8 (0.9-2); Bilirubin,Total 0.7 mg/dl (0.2-1); Globulin 3.3 gm/dl (2.5-4.0); Phosphorus 2.7 mg/dl (2.5-4.9); Total Protein 5.9 gm/dl (6.4-8.2)
[2020-07-09] MEDS ORDERED: POTASSIUM CHLORIDE 20 MEQ/15 ML UDC PO SCH (09:00)
[2020-07-09] MEDS: COLESTIPOL HCL 1 GM TAB PO SCH ×2 (09:39→20:38)
[2020-07-09] MEDS: POT PHOSPHATE MONOBASIC W/ SOD TAB PO SCH ×3 (09:40→16:52)
[2020-07-09] MEDS: ASCORBIC ACID 500 MG TAB PO SCH (09:41)
[2020-07-09] MEDS: CEROVITE ADV FORMULA TAB PO SCH (09:42)
[2020-07-09] MEDS: AMLODIPINE BESYLATE 5 MG TAB PO SCH (09:43)
[2020-07-09] MEDS: RIFAXIMIN 550 MG TABLET PO SCH ×3 (09:44→20:38)
[2020-07-09] MEDS: FIDAXOMICIN 200 MG TAB PO SCH ×2 (12:09→20:38)
--- NOTE | 2020-07-09 12:46 | Gastroenterology Progress Note ---
Date of Service July 09, 2020 Assessment & Plan (1) Cirrhosis: (2) C. difficile colitis: (3) AMS (altered mental status): Pt is a 60 y/o female w hx of cirrhosis, currently admitted with AMS, recurrent Cdiff, urine cx growing gram negative bacilli. Head CT, CXR unremarkable. Liver us wo mention of ascites - Unfortunately we are not performing fecal transplant for recurrent Cdiff given lack of donor availabilities (Covid 19 concerns). - Continue Cdiff treatment w Colestipol and Dificid as dosed. After Dificid course completed,can continue her on suppressive Vancomycin 125mg daily and recommend Infectious Disease referral (may be done in outpt f/u) to determine halfway plan for recurrent Cdiff. - Continue Xifaxan 550mg TID. - Replete K - Upon DC will help set up f/u GI appt Admission and Anticipated Discharge Date Admission Date: July 06, 2020 Supervising Physician Co-Signing Physician Notes Attending attestation I have seen, examined this patient, and agree with the findings and above by our mid-level provider MADALYN Ricci, with the following additions: -more awake, stool output less Subjective Pt AAOx3, answering questions appropriately and following commands. Reports abd pain is improved. Denies n/v. Stools still loose Review of Systems Review of Systems: All systems reviewed & are unremarkable except as noted in HPI & below Physical Exam Constitutional: + thin, cooperative and comfortable Eyes: PERRL, conjunctivae normal, anicteric sclerae ENMT: external ear and nose normal, oropharynx normal Respiratory: normal respiratory effort, lungs clear to auscultation Cardiovascular: RRR, no murmur, no edema Gastrointestinal (Abdomen): Inspection/Auscultation: normal bowel sounds Percussion/Palpation: + abdomen tender (mild) and abdomen soft Skin: no rashes, warm and dry no jaundice Neurologic: Motor/Sensory: no asterixis Psychiatric: A+Ox3, euthymic affect Lymphatic: no lymphedema Results & Data ([facility]) Vital Signs (Past 12 Hours) Vital Signs Temp Pulse Pulse Resp BP Pulse Ox 07/09/20 12:13 36.5 C 94 H 18 115/65 96 07/09/20 07:36 36.5 C 98 H 18 145/82 H 97 (1) AMS (altered mental status) Altered mental status type: somnolence Qualified Code(s): R40.0 - Somnolence
--- NOTE | 2020-07-09 13:13 | Hospitalist Progress Note ---
Date of Service July 09, 2020 Assessment & Plan (1) Encephalopathy acute: Acute Metabolic Encephalopathy from recurrent C.difficile infection and diarrhea and C.difficile colitis (pancolitis) diarrhea improving, mental status back to baseline continue Fidaxomicin, Colestipol per GI: After Dificid course completed,can continue her on suppressive Vancomycin 125mg daily and recommend Infectious Disease referral (may be done in outpt f/u) to determine termite helper plan for recurrent Cdiff. PT/OT evaluation in progress Hypokalemia, Hypophosphatemia - replete K and Phos - monitor Cirrhosis Thrombocytopenia, chronic per Dr. Joshua David's notes: -ammonia levels not elevated on admission -liver ultrasound on this admission with no acute changes "Hepatic heterogeneity considered nonspecific. Early hepatic cirrhosis is not excluded. Prominent common bile duct at 9 mm with remainder of the biliary ductal system normal. 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 Joshua David's notes: -patient follows with [facility] primary care doctor but apparently she takes Fioricet() for headaches which were prescribed by non-[facility] affiliated doctor in [place] as per patient. She was noted to have tried to take her own supply of this medication (in an unlabeled bottle) on this hospital stay when it was found by nurse and then confiscated. Hospitalist looked at the pill bottle on 07/08/2020 subsequent to this event and could not tell what the actual pills were as there are no labels on the bottle -patient is encouraged to take medications as given to her by nurse when inpatient and there are prn butalbital/acetaminophen/caffeine for headache as needed in the current orders Auditory impairments -known to have hearing aides from previous admissions, her her has brought them to hospital Deep venous thrombosis prophylaxis: sequential compression devices. Disposition awaiting PT evaluation to determine if patient needs Rehab Admission and Anticipated Discharge Date Admission Date: July 06, 2020 Subjective ff up for C diff colitis, recurrent seen resting in bed, comfortable, in good spirits states she feels better overall had 1 soft BM this morning, no abdominal pain, nausea no chest pain, dyspnea, palpitations, dizziness no other symptoms Review of Systems Review of Systems: All systems reviewed & are unremarkable except as noted in HPI & below Physical Exam Physical Exam: General- oriented x 3, not in distress, speaks in sentences with no effort or accessory muscle use Head- atraumatic Eyes- PERRL, EOMI, anicteric ENT- oropharynx clear Neck- supple, no JVD, no adenopathy, no thyromegaly; carotids +2/2, no bruits appreciated Lungs- clear to auscultation bilaterally, no rales/wheezes Heart- normal rate, regular rhythm; no murmur, no gallop, no rub appreciated Abdomen- normal bowel sounds, nondistended, soft, nontender, no masses or hepatosplenomegaly Extremities- no pretibial edema, no calf tenderness; peripheral pulses intact Neuro- alert, oriented x 3; CN 2-12 grossly intact; motor 5/5 bilaterally;sensation 100% on all extremities; no other gross focal neurologic deficits Skin- warm & dry Results & Data Results & Data ([facility]) Vital Signs (Past 12 Hours) Vital Signs Temp Pulse Pulse Resp BP Pulse Ox 07/09/20 12:13 36.5 C 94 H 18 115/65 96 07/09/20 07:36 36.5 C 98 H 18 145/82 H 97 Laboratory Results Laboratory Results - last 24 hr 07/08/20 07/08/20 07/09/20 13:49 16:12 06:07 WBC RBC Hgb Hct MCV MCH MCHC RDW Std Deviation RDW Coeff of Dewayne Plt Count MPV Immature Gran % (Auto) Neut % (Auto) Lymph % (Auto) Lyon % (Auto) Eos % (Auto) Baso % (Auto) Neut # (Auto) Lymph # (Auto) Lyon # (Auto) Eos # (Auto) Baso # (Auto) Immature Gran # (Auto) Blood Smear Review Sodium 141 141 Potassium 4.0 D 2.9 L D Chloride 112 H 109 H Carbon Dioxide 24 26 Anion Gap 5.0 5.0 BUN 7 6 L Creatinine 0.43 L 0.40 L Est Cr Clr Drug Dosing 138.8 148.3 Est GFR ( Amer) 128.1 131.2 Est GFR (Non-Af Amer) 110.6 113.2 BUN/Creatinine Ratio 17.3 15.4 Glucose 107 H 94 POC Glucose 119 H Calcium 8.4 L 8.2 L Phosphorus 3.2 D 2.7 Magnesium Total Bilirubin 0.7 AST 30 ALT 28 Alkaline Phosphatase 102 Total Protein 5.9 L Albumin 2.6 L Globulin 3.3 Albumin/Globulin Ratio 0.8 L 07/09/20 07/09/20 06:07 06:08 WBC 4.82 RBC 3.97 L Hgb 12.1 Hct 35.7 L MCV 89.9 MCH 30.5 MCHC 33.9 RDW Std Deviation 50.8 H RDW Coeff of Dewayne 15.2 H Plt Count 73 L MPV 12.3 H Immature Gran % (Auto) 0.2 Neut % (Auto) 63.1 Lymph % (Auto) 16.0 Lyon % (Auto) 9.1 Eos % (Auto) 11.2 Baso % (Auto) 0.4 Neut # (Auto) 3.04 Lymph # (Auto) 0.77 L Lyon # (Auto) 0.44 Eos # (Auto) 0.54 H Baso # (Auto) 0.02 Immature Gran # (Auto) 0.01 Blood Smear Review Cancelled Sodium Potassium Chloride Carbon Dioxide Anion Gap BUN Creatinine Est Cr Clr Drug Dosing Est GFR ( Amer) Est GFR (Non-Af Amer) BUN/Creatinine Ratio Glucose POC Glucose Calcium Phosphorus Magnesium 1.8 Total Bilirubin AST ALT Alkaline Phosphatase Total Protein Albumin Globulin Albumin/Globulin Ratio
[2020-07-10] MEDS: ASCORBIC ACID 500 MG TAB PO SCH (08:30)
[2020-07-10] MEDS: CEROVITE ADV FORMULA TAB PO SCH (08:32)
[2020-07-10] MEDS: COLESTIPOL HCL 1 GM TAB PO SCH (08:32)
[2020-07-10] MEDS: RIFAXIMIN 550 MG TABLET PO SCH (08:33)
[2020-07-10] MEDS: FIDAXOMICIN 200 MG TAB PO SCH (08:33)
[2020-07-10] MEDS ORDERED: METOPROLOL SUCC 50MG EXT REL TAB PO SCH (09:00)
--- NOTE | 2020-07-10 10:29 | Communication Note ---
Date of Service: July 10, 2020 Spoke to RN and chart reviewed. Pt is awake, alert, oriented. She is having only 2 BMs now. Will continue Dificid and once course completed, place her on suppressive Vancomycin 125mg daily for recurrent Cdiff Will decreased Xifaxan to 550mg BID. Schedule GI f/u upon her DC
[2020-07-10 13:50] LABS: BUN Creatinine Ratio 12.7 (10-20); Calcium 8.1 mg/dl (8.5-10.1); Creatinine Clr Calc Pharmacy 119.5 ml/min; Est GFR (African American) 122.7; Est GFR (Non-African American) 105.9; Magnesium 1.8 mg/dl (1.8-2.4); Potassium 3.6 mmol/L (3.5-5.1)
--- NOTE | 2020-07-10 14:16 | Hospitalist Progress Note ---
Date of Service July 10, 2020 Assessment & Plan (1) Encephalopathy acute: Acute Metabolic Encephalopathy from recurrent C.difficile infection and diarrhea and C.difficile colitis (pancolitis) diarrhea continues to improve, mental status back to baseline per GI: After Dificid course completed,can continue her on suppressive Vancomycin 125mg daily and recommend Infectious Disease referral (may be done in outpt f/u) to determine prison plan for recurrent Cdiff. discharge plan: Dificid twice a day x5 more days to complete 10-day course, then vancomycin 125mg daily until follow-up with GI clinic Follow-up with GI clinic in 2 weeks time Hypokalemia, Hypophosphatemia -Potassium 3.6 on discharge day Phosphorus normal on discharge day - Discharge on potassium 20 mEq p.o. daily Repeat BMP with magnesium and phosphorus on follow-up with primary care physician next week Cirrhosis Thrombocytopenia, chronic per Dr. Joshua David's notes-previous hospitalist: -ammonia levels not elevated on admission -liver ultrasound on this admission with no acute changes "Hepatic heterogeneity considered nonspecific. Early hepatic cirrhosis is not excluded. Prominent common bile duct at 9 mm with remainder of the biliary ductal system normal. 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 Joshua David's notes: -patient follows with [facility] primary care doctor but apparently she takes Fioricet() for headaches which were prescribed by non-[facility] affiliated doctor in [place] as per patient. She was noted to have tried to take her own supply of this medication (in an unlabeled bottle) on this hospital stay when it was found by nurse and then confiscated. Hospitalist looked at the pill bottle on 07/08/2020 subsequent to this event and could not tell what the actual pills were as there are no labels on the bottle -patient is encouraged to take medications as given to her by nurse when inpatient and there are prn butalbital/acetaminophen/caffeine for headache as needed in the current orders Deep venous thrombosis prophylaxis: sequential compression devices. Disposition Discharge to home Patient and family declines home health services Follow-up with PCP next week per discharge instructions Follow-up in GI clinic in 2 weeks Admission and Anticipated Discharge Date Admission Date: July 06, 2020 Subjective ff up for c diff colitis, encephalopathy seen resting in bed, comfortable, sitting up, oriented x 3 , in good spirits states she feels much better overall states she only had 2 loose BMs so far no abdominal pain, nausea/vomiting, fever/chills no other symptoms states she is ready and would like to be discharged today Review of Systems Review of Systems: All systems reviewed & are unremarkable except as noted in HPI & below Physical Exam Physical Exam: General-awake, alert, oriented x3, accessory muscle use Neck-no JVD Heart-normal rate regular rhythm no murmurs Lungs Clear to auscultation bilaterally Abdomen-nondistended, normoactive bowel sounds, nontender Extremities-no edema Neuro-no focal deficits noted Results & Data Results & Data ([facility]) Vital Signs (Past 12 Hours) Vital Signs Temp Pulse Pulse Resp BP Pulse Ox 07/10/20 11:48 36.6 C 75 74 19 135/73 98 07/10/20 11:39 36.6 C 75 19 135/73 98 07/10/20 07:28 36.5 C 89 18 129/73 95 07/10/20 04:14 36.4 C L 74 18 119/64 92 Laboratory Results Laboratory Results - last 24 hr 07/09/20 07/10/20 15:07 12:59 Sodium 143 Potassium 4.0 D 3.6 Chloride 113 H Carbon Dioxide 25 Anion Gap 5.0 BUN 6 L Creatinine 0.49 L Est Cr Clr Drug Dosing 119.5 Est GFR ( Amer) 122.7 Est GFR (Non-Af Amer) 105.9 BUN/Creatinine Ratio 12.7 Glucose 118 H Calcium 8.1 L Phosphorus 3.0 Magnesium 1.8
--- NOTE | 2020-07-10 14:58 | Discharge Summary ---
Date of Service July 10, 2020 Admission HPI Per Admitting Provider CHIEF COMPLAINT: Altered mental status. HISTORY OF PRESENT ILLNESS: A 60-year-old female with past medical history significant for recurrent C. diff colitis, hypertension, mood disorder, history of schizophrenia as per records, cirrhosis as per records, past tobacco abuse, chronic thrombocytopenia, history of drug abuse as per records, history of UTIs, depression, migraines. The patient lives with her . The patient has recurrent admissions for C. diff, last admission was on 06/05/2020 and discharged on 06/10/2020. She was discharged on Dificid, she completed the course. As per the , her diarrhea never completely resolved. She still has some diarrhea, but last 2-3 days her diarrhea got worse, seemed to be getting dehydrated and yesterday she developed fever, poor appetite, and feeling generalized weakness and she was somewhat confused and they brought her into the hospital. Currently, she is lethargic but as per she is very hard of hearing and she does not respond to questions when she does not hear, but he thinks she was mildly confused at home. Her hemodynamics are stable. Her temperature is 37.9 in the ER. No leukocytosis. Lactate was 2.4. Ammonia was less than 10. Urine was positive for +4 bacteria, nitrite. COVID-19 PCR was negative. Chest x-ray was unremarkable. CT of the head preliminary report unremarkable. As per the , the patient has complained of some abdominal pain, no chest pain, no shortness of breath, no cough, no complaints of headache. Admission Exam Per Admitting Provider VITAL SIGNS: T-max 37.9, pulse 105, respiratory rate 23, blood pressure 160/65, oxygen 100% on room air. HEENT: No pallor, no icterus. Pupils equal, round, reactive to light. NECK: No JVD, no neck masses. CARDIOVASCULAR: S1, S2 heard, regular rate and rhythm, no murmur, no gallop. Tachycardia. RESPIRATORY SYSTEM: Normal AP diameter. No accessory muscle use. No wheezing, no crackles. ABDOMEN: Soft, bowel sounds present. No distention. CENTRAL NERVOUS SYSTEM: Drowsy, opens eyes on calling and moves extremities on painful stimuli. EXTREMITIES: No edema, no erythema seen. Right toes, wounds and dressing seen. Principal Diagnosis RECURRENT C. DIFF COLITIS, METABOLIC ENCEPHALOPATHY Discharge Exam General-awake, alert, oriented x3, accessory muscle use Neck-no JVD Heart-normal rate regular rhythm no murmurs Lungs Clear to auscultation bilaterally Abdomen-nondistended, normoactive bowel sounds, nontender Extremities-no edema Neuro-no focal deficits noted Discharge Data Allergies Allergy/AdvReac Type Severity Reaction Status Date / Time Penicillins Allergy Severe ANAPHYLAXIS Verified 07/06/20 02:13 hydrocodone AdvReac Intermediate Nausea Unverified 07/06/20 02:13 [From Lorcet (hydrocodone)] Consultations 07/06/20 03:11 ED Decision to Admit Stat 07/06/20 05:26 Consult Case Management - Discharge Planning Routine 07/06/20 08:00 Consult Gastroenterology Routine Ordered Studies 07/06/20 00:32 CT head/brain wo con Urgent Findings: The paranasal sinuses and mastoid air cells are clear. The calvarium and skull base are intact. The ventricles and sulci are within normal limits. There is no mass, hematoma, midline shift, or acute infarct. Impression: No acute intracranial abnormality. Age-related atrophy and chronic small vessel change 07/07/20 08:05 US liver Routine FINDINGS: Normal gallbladder. Common bile duct slightly prominent at 9 mm. Mild nonspecific hepatic heterogeneity. Pancreas and right kidney are unremarkable. IMPRESSION: 1. Hepatic heterogeneity considered nonspecific. Early hepatic cirrhosis is not excluded. 2. Prominent common bile duct at 9 mm with remainder of the biliary ductal system normal. 3. Normal gallbladder. Hospital Course (1) Encephalopathy acute: Acute Metabolic Encephalopathy from recurrent C.difficile infection and diarrhea and C.difficile colitis (pancolitis) per previous hospitalist notes: -This is a 60 year old female with history of persistent C.difficile with last hospitalization being discharged on Dificid (last admission was on 06/05/2020 an d discharged on 06/10/2020) with outpatient gastroenterology followup. Patient has in the past with diarrhea or loose bowel movements. as per this admission History/Physical "As per the , her diarrhea never completely resolved. She still has some diarrhea, but last 2-3 days her diarrhea got worse, seemed to be getting dehydrated and yesterday she developed fever, poor appetite, and feeling generalized weakness and she was somewhat confused and they brought her into the hospital. Currently, she is lethargic but as per she is very hard of hearing and she does not respond to questions when she does not hear, but he thinks she was mildly confused at home." -admission WBC 11K. admission lactic acidosis of 2.3 resolved with IV fluids -admission CT abdomen (Examination limited due to the lack of intravenous and oral contrast): Hepatic cirrhosis with sequela of portal hypertension with splenomegaly and multiple varices. No evidence of bowel obstruction. No evidence of free air. Diffuse colonic wall thickening indicative of a pancolitis. No renal, ureteral, or bladder calculi identified Healing fracture left inferior pubic ramus -Dificid BID, and has been given lactobacillus when on IV antibiotics. admitting team concerned of possible urinary tract infection and started her empirically on cefepime. the admission blood cultures have returned as negative. the admission urine cultures with E.coli. since cefepime doses has been given from 07/06/2020 to 07/08/2020 will stop further antibiotics as patient completed 3 day course of antibiotic treatment -07/08/2020: gastroenterology comments on limitations in the recurrent C.difficile treatment because there are no current fecal transplants being done locally during COVID-19 pandemic at this time diarrhea continues to improve, mental status back to baseline per GI: After Dificid course completed,can continue her on suppressive Vancomycin 125mg daily and recommend Infectious Disease referral (may be done in outpt f/u) to determine extermination inspector plan for recurrent Cdiff. discharge plan: Dificid twice a day x5 more days to complete 10-day course, then vancomycin 125mg daily until follow-up with GI clinic Follow-up with GI clinic in 2 weeks time Hypokalemia, Hypophosphatemia -Potassium 3.6 on discharge day Phosphorus normal on discharge day - Discharge on potassium 20 mEq p.o. daily Repeat BMP with magnesium and phosphorus on follow-up with primary care physician next week Cirrhosis Thrombocytopenia, chronic per Dr. Joshua David's notes-previous hospitalist: -ammonia levels not elevated on admission -liver ultrasound on this admission with no acute changes "Hepatic heterogeneity considered nonspecific. Early hepatic cirrhosis is not excluded. Prominent common bile duct at 9 mm with remainder of the biliary ductal system normal. 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 Joshua David's notes: -patient follows with [facility] primary care doctor but apparently she takes Fioricet() for headaches which were prescribed by non-[facility] affiliated doctor in [place] as per patient. She was noted to have tried to take her own supply of this medication (in an unlabeled bottle) on this hospital stay when it was found by nurse and then confiscated. Hospitalist looked at the pill bottle on 07/08/2020 subsequent to this event and could not tell what the actual pills were as there are no labels on the bottle -patient is encouraged to take medications as given to her by nurse when inpatient and there are prn butalbital/acetaminophen/caffeine for headache as needed in the current orders Deep venous thrombosis prophylaxis: sequential compression devices. Disposition Discharge to home Patient and family declines home health services Follow-up with PCP next week per discharge instructions Follow-up in GI clinic in 2 weeks Total Time Total Time Spent Total Time Spent (In Minutes): 60 minutes Discharge Plan Discharge Items Patient Disposition: Home - Self-Care Reason For Visit: AMS Discharge Diagnosis: Recurrent C. difficile colitis Metabolic encephalopathy Electrolyte imbalance Activity: Resume your previous activity Activity Comment: Resume gradually as tolerated, no heavy exertion Lifting: Wait until after follow-up appointment Exercise/Sports: Wait until after follow-up appointment Driving/Machine Use: No driving until reevaluated and allowed by primary care physician Non-emergency contact: Primary Care Provider and St[employer] Call non-emergency contact if: you have any medication questions, your symptoms worsen, your pain is not controlled, your pain is worsening, your pain is unusual for you, your pain is concerning for you and you have a fever Follow-up/Referrals: Marie Solorio [Physician] - Jersey Ortiz DO [Physician] - 07/17/20 11:20 am Diet: Heart Healthy Addtl Attending Provider Instructions: Please review your new medication list and follow instructions carefully. Your new medications include: Dificid-antibiotic for C. difficile infection Vancomycin-to be taken after course of Dificid is completed; long-term antibiotic to treat C. difficile infection Potassium supplement Rifaximin-to prevent elevated ammonia level and prevent confusion or altered mental status secondary to liver cirrhosis Please call primary care physician, or gastroenterology clinic, or return to the ER immediately if with recurrence or worsening of symptoms Including diarrhea, abdominal pain, fevers or chills, change in mental status. Please follow-up with primary care physician Dr. Jersey Alvarado as outlined above. Follow-up with the [facility] gastroenterology clinic within 1 to 2 weeks. Please call the clinic for an appointment. Pending Studies at Discharge: Yes Studies:: Repeat blood work care of primary care physician on follow-up visit next week including Metabolic profile, magnesium, phosphorus levels Stand-Alone Forms: My [facility] [employer], Smoking Cessation Medications and DC Order Prescriptions: New Dificid 200 mg Tablet 200 mg PO BID Qty: 11 RF: 0 Xifaxan 550 mg Tablet 550 mg PO BID Qty: 60 RF: 2 colestipol [Colestid] 1 gram Tablet 2 g PO BID@1000,2200 Qty: 60 RF: 0 vancomycin 125 mg capsule 125 mg PO DAILY Qty: 30 RF: 1 potassium chloride [Klor-Con 10] 10 mEq tablet extended release 20 meq PO DAILY Qty: 20 RF: 0 Continued ascorbic acid (vitamin C) [Vitamin C] 500 mg Tablet 500 mg PO DAILY RF: 0 Calcium 600 + D(3) 600 mg calcium- 200 unit Capsule 1 cap PO BID RF: 0 metoprolol succinate 50 mg Tablet Extended Release 24 Hr 50 mg PO BID RF: 0 multivitamin with minerals Tablet 1 tab PO DAILY RF: 0 loratadine 10 mg Tablet 10 mg PO DAILY PRN (Reason: Allergy Symptoms) RF: 0 acetaminophen [Tylenol] 325 mg Tablet 650 mg PO Q6H PRN (Reason: Pain) RF: 0 Discontinued hydrochlorothiazide 25 mg Tablet 25 mg PO DAILY RF: 0 acetaminophen-codeine 300-30 mg tablet 1 - 2 tab PO Q6H PRN (Reason: Pain) RF: 0 Discharge Orders: Discharge Order (Routine); Ordered 07/10/20 Ordered By: Prem Medrano Admission Data Admit Date/Time: 07/06/20 04:34 Attending Provider: Prem Medrano Admit Provider: Brent Quintero Primary Care Provider: PCP,NO Other Providers: Brent Quintero ; Aristeo Mckenzie ; Carola Sal ; Na White ; Rosa Maria Gonzalez ; Andre Soliz ; Xavier Bo ; Marie Solorio ; Kalyani Velez ; Gino Ramos ; Bebo Stoner ; Vicenta Coley ; Vicki Medellin ; Maggi Rousseau ; Evelin Arvizu ; David Ariza ; [facility] ; Joshua David. Other Interventions: Discharge Summary Assessment (RN) Last Done: 07/10/20 11:48
[2020-07-10] MEDS ORDERED: RIFAXIMIN 550 MG TABLET PO SCH ×2 (15:15→21:00)
[2020-07-10] MEDS ORDERED: FIDAXOMICIN 200 MG TAB PO ONE (15:15)
== END 2020-07-10 16:34 | disposition home or self-care (01) | DRG 371 ==
LOC: ED 00:19 → SUATTDRO 04:34 → 2S 04:34

== ENCOUNTER 2022-05-05 07:30 | Observation (INO) ==
--- NOTE | 2022-05-05 07:52 | Emergency Department Note ---
History of Present Illness General Chief complaint: Knee Injury/Pain Stated complaint: L KNEE PAIN Time Seen by Provider: 05/05/22 07:34 History of Present Illness Maximum Pain Intensity: 8 62-year-old female who presents to the emergency department via ambulance for evaluation of injuries from a fall on Tuesday. The patient reports that she suffered a trip and fall in her yard. The patient was unable to bear weight, and had to crawl back into her house. Patient complains mostly of left knee pain, but also admits to hitting her head, and also has right rib pain. The patient reports that her said that she must have a concussion because her pupils were unequal. Patient does not believe that she had any loss of consciousness. The patient has had a prior history of left hip fracture and subsequent replacement that was performed by [facility]. The patient rates her discomfort an 8 out of 10. Home Medications Medication Instructions Recorded Confirmed Type Lactobacillus 40-Bifidobact 1 cap PO QAM 05/05/22 05/05/22 History 3-S.thermophilus 100 billion cell capsule (Probiotic) cholecalciferol (vitamin D3) 125 125 mcg PO QAM 05/05/22 05/05/22 History mcg (5,000 unit) tablet (Vitamin D3) dextroamphetamine-amphetamine 10 10 mg PO BID 05/05/22 05/05/22 History mg tablet metoprolol tartrate 100 mg tablet 100 mg PO BID 05/05/22 05/05/22 History wawgbgnbbwfr-azbmsjma-odylbt tablet 1 tab PO DAILY 05/05/22 05/05/22 History potassium chloride 10 mEq 10 meq PO BID 05/05/22 05/05/22 History capsule,extended release vancomycin 125 mg capsule 125 mg PO DAILY PRN 05/05/22 05/05/22 History Allergies Allergy/AdvReac Type Severity Reaction Status Date / Time Penicillins Allergy Severe ANAPHYLAXIS Verified 05/05/22 09:17 aspirin [From Percodan] Allergy Unknown Unknown Unverified 05/05/22 09:17 oxycodone [From Percodan] Allergy Unknown Unknown Unverified 05/05/22 09:17 ketorolac [From Toradol] AdvReac Severe Breathing Unverified 05/05/22 09:17 difficulty hydrocodone AdvReac Intermediate Nausea Unverified 05/05/22 09:17 [From Lorcet (hydrocodone)] rifaximin [From Xifaxan] AdvReac Intermediate Dizzy, Unverified 05/05/22 09:17 Fell down ursodiol AdvReac Intermediate Dizzy, Unverified 05/05/22 09:17 Fell down Past Med/Surg History Medical History Bipolar disorder Cirrhosis Depression Emphysema of lung Based on imaging History of CVA (cerebrovascular accident) Osteoporosis Pulmonary nodule 9 mm RML subsolid nodule CT chest 02/29/20. 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 Required: No Beliefs That Will Affect Care: None marital status: Current Living Situation: Spouse Feels Safe at Home: Yes Assistive Devices: None Review of Systems 10 system review was performed and was negative except for pertinent positives and negatives as indicated in history of present illness Physical Exam Vital Signs Vital Signs - 24 hr 05/05/22 07:32 05/05/22 09:27 05/05/22 11:00 Temperature 36.8 C Temperature Source Oral Pulse Rate 63 Pulse Rate [Left Finger] 86 65 Respiratory Rate 16 18 16 Respiratory Effort / Characteristics Non-Labored Spontaneous Non-Labored Non-Labored Respiratory Depth Normal Normal Normal Respiratory Pattern Regular Regular Regular Blood Pressure 129/63 Blood Pressure [Right Arm] 141/71 H 141/71 H Blood Pressure Mean 85 Blood Pressure Mean [Right Arm] 94 94 Blood Pressure Position Semi-fowlers Blood Pressure Position [Right Arm] Lying Pulse Oximetry 99 95 99 Oxygen Delivery Method Room Air Room Air Sepsis Recent Fever Within 48 Hours No Sepsis New/Unexplained Change in Mental Status N/A Sepsis Action Taken by Nursing No Action Required 05/05/22 13:00 05/05/22 15:00 Temperature Temperature Source Pulse Rate Pulse Rate [Left Finger] 70 88 Respiratory Rate 18 18 Respiratory Effort / Characteristics Non-Labored Respiratory Depth Normal Respiratory Pattern Regular Blood Pressure Blood Pressure [Right Arm] 146/75 H 144/72 H Blood Pressure Mean Blood Pressure Mean [Right Arm] 98 96 Blood Pressure Position Blood Pressure Position [Right Arm] Semi-fowlers Pulse Oximetry 94 98 Oxygen Delivery Method Room Air Sepsis Recent Fever Within 48 Hours Sepsis New/Unexplained Change in Mental Status Sepsis Action Taken by Nursing CONSTITUTIONAL: Healthy and well nourished. Alert and oriented X 3. GCS 15. HEENT: Examination shows an abrasion to the left forehead without significant hematoma formation Pupils equal, round and reactive. No evidence for hemotympanum, epistaxis, raccoon's eyes or salas sign. NECK: Patient has minimal tenderness to palpation of the cervical musculature, without focal tenderness through the central cervical spine. RESPIRATORY: Clear to auscultation bilaterally with no wheezing, crackles, rhonchi or stridor. Deep breathing worsens the patient's right chest disc omfort. CARDIOVASCULAR: Regular rate and rhythm with no murmurs, rubs or gallops. GASTROINTESTINAL: Bowel sounds present in all quadrants. Soft and nontender to palpation. MUSCULOSKELETAL: Examination shows tenderness to palpation through the right anterolateral ribs. No subcutaneous emphysema or flail chest appreciated. Patient also has edema and ecchymosis of the inferior left knee region. No joint effusion noted. No tenderness to palpation through the distal leg or ankle. The patient does have erythema of lower extremities that the patient reports is chronic. No pretibial pitting edema. INTEGUMENTARY: No rash or other significant dermatologic conditions noted. HEMATOLOGIC: No ecchymosis or petechiae. PSYCHIATRIC: Positive affect. NEUROLOGIC: Cranial nerves II-XII grossly intact. No focal neurologic deficits noted. Lower extremities are sensory intact. Course Course Patient history and physical exam were performed. Nurses notes were reviewed. Vital signs were reviewed and were normal. The patient refused any analgesics on initial exam. Noncontrast CT of the head and cervical spine were normal with significant cervical degenerative changes noted. X-rays of the right ribs with a PA chest view shows old healed fractures without evidence for acute fracture or pneumothorax. X-rays of the left knee confirms an intra-articular proximal tibial fracture, as well as proximal fibula fracture. Noncontrast CT of the knee was also ordered which shows that the fracture is comminuted but nondis placed. Findings were discussed with Dr. Moreno, ED team physician, as well as the patient and . I did recommend trial ambulation with a knee immobilizer and walker to determine whether the patient can be managed outpatient. An order was placed for both knee immobilizer and walker, and the patient was successful with trial ambulation. The case was then further discussed with Dr. Ogden, [facility], who reviewed images, and recommended further CT imaging of the tib-fib. This was performed and was otherwise normal other than the proximal tib-fib fractures. Dr. Ogden presented to the emergency department for further patient evaluation. After his evaluation, he has recommended nonsurgical management at this time. He has recommended placement of a anterior/posterior Ortho-Glass long-leg splint, and follow-up in his office next Tuesday for further reevaluation. He has also recommended that the patient remain nonweightbearing. Dr. Ogden also indicated that the patient was at high risk for developing DVT, and as recommended that I discuss further treatment options with our ED pharmacist, with possibility either aspirin or Lovenox injections. Based on review of patient's medical history, our pharmacist has recommended Eliquis 2.5 mg twice daily. This was further discussed with the patient, and she agrees with this treatment plan. The Ortho-Glass splint was applied, and the patient was provided her walker. The patient, unfortunately, was unable to ambulate with a nonweightbearing status, and did not feel safe going home. Her also expressed similar concerns as he has back issues, and is unable to help the patient with ambulation. At this point, the patient did agree to possible placement at [facility]. Our Category Specialist has recommended that an order be placed for PT/OT evaluation as the patient likely would not be able to be transferred to [facility] yet today. I also discussed this change of status with Dr. Jerson Aburto, who was in agreement with plan of care. COVID-19 test was negative. The patient was administered an additional Tylenol #3 for ongoing pain. [facility] can be [facility]. Please see their dictation for further treatment and final disposition. Administered Medications Discontinued Medications Acetaminophen/Codeine Phosphate (Acetaminophen W/Codeine #3 1 Tab) 1 tab PO NOW ONE Stop: 05/05/22 09:14 Last Admin: 05/05/22 10:43 Dose: 1 tab Documented by: [id number] Acetaminophen/Codeine Phosphate (Acetaminophen W/Codeine #3 1 Tab) 1 tab PO NOW ONE Stop: 05/05/22 14:14 Last Admin: 05/05/22 14:25 Dose: 1 tab Documented by: [id number] Oxycodone HCl (Oxycodone Hcl Ir 5 Mg Tab (Immediate Release)) 5 mg PO NOW STA Stop: 05/05/22 09:06 Last Admin: 05/05/22 10:16 Dose: Not Given Documented by: [id number] Medical Decision Making Medical Records Attestation: I reviewed the patient's medical records. Home Medications Current Medication List: was personally reviewed by me Laboratory Data Attestation: I reviewed the patient's lab results. COVID-19 test was negative. Lab Results 05/05/22 Range/Units 13:50 SARS-CoV-2, RNA, NAAT NEGATIVE (NEGATIVE) Imaging Data Attestation: I personally reviewed and interpreted this imaging study as follows: My Impression: My interpretation of a noncontrast CT of the head and cervical spine does not show evidence for fracture, intracranial bleed or cervical fracture/subluxations. Notable degenerative changes are noted of the cervical spine. My interpretation of right rib x-rays with a PA chest view does not show any acute fractures or pneumothorax. Old healed fractures are noted. My interpretation of left knee x-rays shows an intra-articular proximal tibia fracture, as well as a proximal fibula fracture. My interpretation of a noncontrast CT of the left knee confirms an intra-articular, comminuted but nondisplaced fracture of the proximal tibia, as well as proximal fibula fracture. Radiologist reports were also reviewed. Radiologist's Impression: Cervical Spine CT 05/05/22 07:44 CT cervical spine wo con CLINICAL HISTORY: s/p fall TECHNIQUE: Multidetector row helical CT of the cervical spine was performed without administration of intravenous contrast. Coronal and sagittal reformations were obtained. Automated dose lowering techniques and/or adjustment according to patient size were utilized for this exam. Comparison: None available at the time of this dictation. FINDINGS: Severe degenerative changes are seen about the spine. Dense this background, no acute fractures are seen. Atherosclerotic calcifications are seen. IMPRESSION: No evidence of cervical fractures. Severe degenerative changes are seen about the neck. ACT 112: Negative or not required by law. Electronically signed by: Fish Carty M.D. 05/05/2022 8:[address] 05/05/22 07:44 CT head/brain wo con CLINICAL HISTORY: 62 years-old Female with s/p fall. Acute head injury status post fall TECHNIQUE: Multiple axial CT images of the head were obtained without contrast. A dose lowering technique was utilized adhering to the principles of ALARA. COMPARISON: Head CT 07/06/2020 FINDINGS: No acute intracranial hemorrhage, midline shift, intracranial mass, hydrocephalus, territorial ischemia or abnormal extra-axial collection. The study is mildly motion degraded. White matter hypodensities are redemonstrated suggestive of chronic microvascular ischemic disease. Cerebral vascular calcifications. The calvarium is intact. The paranasal sinuses, mastoid air cells, and middle ear cavities are clear. IMPRESSION: No acute intracranial abnormality or calvarial fracture. ACT 112: Negative or not required by law. The above report was generated using voice recognition software. It may contain grammatical, syntax or spelling errors. Electronically signed by: Mike Purdy M.D. 05/05/2022 8:46 AM Knee X-Ray 05/05/22 07:44 XR knee LT 1 or 2V routine CLINICAL HISTORY: L knee injury s/p fall. COMPARISON STUDY: No previous studies for comparison. TECHNIQUE: 3 left knee views FINDINGS: Bones: The bones are osteopenic. The patient is status post laser and screw fixation for an old, healed distal supracondylar fracture of the femur. There is an acute, impacted fracture present involving the proximal tibial metadiaphysis. Only minimal cortical offset is present. There is no lytic or blastic lesion. Joints: The joint spaces are maintained. There is no evidence for an intra- articular effusion. The bones are in anatomic alignment. Soft tissues: There is no focal soft tissue abnormality. There is no radiopaque foreign body. IMPRESSION: 1. Osteopenia with an acute, impacted nondisplaced fracture of the proximal tibial metadiaphysis. ACT 112: Negative or not required by law. Electronically signed by: Rai Staples M.D. 05/05/2022 8:29 AM Ribs w/Chest X-Ray 05/05/22 07:44 XR ribs RT min 2V w CXR1V CLINICAL HISTORY: s/p fall TECHNIQUE: 3 views of the right ribs were obtained. Single frontal view of the chest was obtained. Comparison: None available at the time of this dictation. FINDINGS: No acute fractures are seen. Old healed fractures are noted in the right ribs. Degenerative changes are seen spine. The chest wall and soft tissues are normal. The cardiomediastinal silhouette is normal. The lungs are clear. No evidence of pleural effusion or pneumothorax. IMPRESSION: No evidence of acute fracture. Old healed fractures are seen in the right ribs. ACT 112: Negative or not required by law. Electronically signed by: Fish Carty M.D. 05/05/2022 8:[address] 05/05/22 08:26 CT knee LT wo con CLINICAL HISTORY: Status post fall with proximal tibial fracture. Evaluate for intra-articular extension. COMPARISON STUDY: Standard radiographs from 05/05/2022 CT DOSE: 252.34 mGy.cm TECHNIQUE: Standard CT of the right knee is performed without IV contrast. Multiplanar reconstruction is performed. A dose lowering technique was utilized adhering to the principles of ALARA. FINDINGS: Bones: Bones are osteopenic. There is actually a comminuted fracture present involving the proximal tibia. A fracture line does extend into the articular margin posteriorly with minimal posterior cortical buckling present. Multiple additional nondisplaced fractures are seen throughout the proximal tibial metadiaphysis. The distal femur is intact. The patient is status post previous internal fixation for an old, healed supracondylar fracture of the femur. Plate and screw fixation are present. There are no lytic or blastic lesions. Joints: There is moderate narrowing of the medial joint compartment and mild narrowing of the lateral joint compartment. The patellofemoral joint is maintained. There is a very small intra-articular effusion. The bones are in anatomic alignment. Soft tissues: Soft tissue swelling surrounds the knee. There are no focal fluid collections. IMPRESSION: 1. CT confirms the presence of a comminuted fracture of the proximal tibial metadiaphysis with extension into the articular margin posteriorly. The comminuted fracture is otherwise nondisplaced. 2. There is a small intra-articular effusion. ACT 112: Negative or not required by law. Electronically signed by: Rai Staples M.D. 05/05/2022 8:[address] 05/05/22 10:48 CT tib/fib LT wo con CLINICAL HISTORY: LLE pain, prox tib/fib fxs COMPARISON STUDY: CT of the knee from 05/05/2022 CT DOSE: 439.40 mGy.cm TECHNIQUE: Standard CT of the is performed without IV contrast. Multiplanar reconstruction is performed. A dose lowering technique was utilized adhering to the principles of ALARA. FINDINGS: Bones: As seen on the CT of the knee, there is a comminuted, nondisplaced fracture involving the proximal tibial metadiaphysis with extension to the articular surface posteriorly. Not described on the knee CT is an impacted, nondisplaced fracture of the neck of the fibula. Minimal cortical overriding is present. Bones are osteopenic with no definite evidence for distal tibia or fibular fracture. There are no lytic or blastic lesions. Joints: The joint spaces are maintained. The bones are in anatomic alignment. Soft tissues: There is diffuse subcutaneous soft tissue swelling present involving the entire lower leg. There are no focal fluid collections. IMPRESSION: 1. Comminuted fracture of the proximal tibial metadiaphysis with extension to the joint margin posteriorly is again seen. 2. This also evidence for an impacted fracture of the neck of the fibula which was not reported on the previous study. 3. The distal tibia and fibula are intact. No other fractures are identified. 4. Diffuse subcutaneous edema involving the entire lower leg. Sonography ACT 112: Negative or not required by law. Electronically signed by: Rai Staples M.D. 05/05/2022 11:28 AM Blood Pressure Blood Pressure Findings: Normal blood pressure MDM Narrative Patient presents emergency department for evaluation of injuries after suffering a fall on Tuesday. X-rays and CT imaging confirms a comminuted, nondisplaced intra-articular fracture of the proximal tibia, as well as a proximal fibular fracture. Given the nature of the fracture, orthopedics has recommended nonweightbearing status. Unfortunately, the patient was unable to maintain nonweightbearing status with attempted trial ambulation, therefore the patient will require further inpatient rehab. Hopefully the patient will be transferred relatively quickly to [facility]. Further imaging from Tuesday's fall does not show any other acute injuries. Impression & Plan Fracture of proximal end of left tibia and fibula, Status post fall Discharge Plan Visit Data Chief Complaint: Knee Injury/Pain Stated Complaint: L KNEE PAIN ED Provider: Gino Moreno ED Midlevel Provider: Edgardo Sesay Discharge Problem: Fracture of proximal end of left tibia and fibula, Status post fall Patient Disposition: Home - Self-Care Discharge Instructions Activity Restrictions/Additional Instructions: Do not get splint wet or remove it. No weight on the foot/splint - use your walker or home wheelchair as needed. Take Eliquis twice daily as prescribed. If your insurance does not cover for the Eliquis, you may also continue with your daily aspirin. You have been provided a prescription for Tylenol with codeine if needed for pain relief. You will also need to discuss further pain management with Dr. Ogden or your family doctor. Follow-up with Dr. Ogden on Tuesday as instructed - call his office for an appointment time. Forms Stand Alone Forms: My [facility], Virtual Emergency Department, Important Visit Information Prescriptions Prescriptions: No Action dextroamphetamine-amphetamine 10 mg tablet 10 mg PO BID RF: 0 Centrum Silver Tablet 1 tab PO DAILY RF: 0 cholecalciferol (vitamin D3) [Vitamin D3] 125 mcg (5,000 unit) Tablet 125 mcg PO QAM RF: 0 Probiotic 100 billion cell Capsule 1 cap PO QAM RF: 0 metoprolol tartrate 100 mg tablet 100 mg PO BID RF: 0 vancomycin 125 mg capsule 125 mg PO DAILY PRN (Reason: antibiotic use) RF: 0 potassium chloride 10 mEq capsule, extended release 10 meq PO BID RF: 0 Referrals Referrals: Elias Ogden MD [Surgeon] - PCP,NO [Physician] - Discharge Problem: Fracture of proximal end of left tibia and fibula Qualifiers: Encounter type: initial encounter Fracture type: closed Qualified Code(s): S82.102A - Unspecified fracture of upper end of left tibia, initial encounter for closed fracture
--- NOTE | 2022-05-05 08:28 | XRay Report ---
XR ribs RT min 2V w CXR1V CLINICAL HISTORY: s/p fall TECHNIQUE: 3 views of the right ribs were obtained. Single frontal view of the chest was obtained. Comparison: None available at the time of this dictation. FINDINGS: No acute fractures are seen. Old healed fractures are noted in the right ribs. Degenerative changes a re seen spine. The chest wall and soft tissues are normal. The cardiomediastinal silhouette is normal. The lungs are clear. No evidence of pleural effusion or p neumothorax. IMPRESSION: No evidence of acute fracture. Old healed fractures are seen in the right ribs. ACT 112: Negative or not required by law. Electronically signed by: Fish Carty M.D. 05/05/2022 8:26 AM
--- NOTE | 2022-05-05 08:31 | XRay Report ---
XR knee LT 1 or 2V routine CLINICAL HISTORY: L knee injury s/p fall. COMPARISON STUDY: No previous studies for comparison. TECHNIQUE: 3 left knee views FINDINGS: Bones: The bones are osteopenic. The patient is status post laser and screw fixation for an old, heal ed distal supracondylar fracture of the femur. There is an acute, impacted fracture present involving the proximal tibial metadiaphysis. Only minimal cortical offset is present. There is no lytic or jorge stic lesion. Joints: The joint spaces are maintained. There is no evidence for an intra-articular effusion. The isaias andrew are in anatomic alignment. Soft tissues: There is no focal soft tissue abnormality. There is no radiopaque foreign body. IMPRESSION: 1. Osteopenia with an acute, impacted nondisplaced fracture of the proximal tibial metadiaphysis. ACT 112: Negative or not required by law. Electronically signed by: Rai Staples M.D. 05/05/2022 8:29 AM
--- NOTE | 2022-05-05 08:47 | CT Scan Report ---
CT head/brain wo con CLINICAL HISTORY: 62 years-old Female with s/p fall. Acute head injury status post fall TECHNIQUE: Multiple axial CT images of the head were obtained without contrast. A dose lowering tech nique was utilized adhering to the principles of ALARA. COMPARISON: Head CT 07/06/2020 FINDINGS: No acute intracranial hemorrhage, midline shift, intracranial mass, hydrocephalus, territorial ischem ia or abnormal extra-axial collection. The study is mildly motion degraded. White matter hypodensitie s are redemonstrated suggestive of chronic microvascular ischemic disease. Cerebral vascular calcific ations. The calvarium is intact. The paranasal sinuses, mastoid air cells, and middle ear cavities are clear . IMPRESSION: No acute intracranial abnormality or calvarial fracture. ACT 112: Negative or not required by law. The above report was generated using voice recognition software. It may contain grammatical, syntax o r spelling errors. Electronically signed by: Mike Purdy M.D. 05/05/2022 8:46 AM
--- NOTE | 2022-05-05 08:51 | CT Scan Report ---
CT cervical spine wo con CLINICAL HISTORY: s/p fall TECHNIQUE: Multidetector row helical CT of the cervical spine was performed without administration of intravenous contrast. Coronal and sagittal reformations were obtained. Automated dose lowering techn iques and/or adjustment according to patient size were utilized for this exam. Comparison: None available at the time of this dictation. FINDINGS: Severe degenerative changes are seen about the spine. Dense this background, no acute fractures are s een. Atherosclerotic calcifications are seen. IMPRESSION: No evidence of cervical fractures. Severe degenerative changes are seen about the neck. ACT 112: Negative or not required by law. Electronically signed by: Fish Carty M.D. 05/05/2022 8:50 AM
--- NOTE | 2022-05-05 08:53 | CT Scan Report ---
CT knee LT wo con CLINICAL HISTORY: Status post fall with proximal tibial fracture. Evaluate for intra-articular extens ion. COMPARISON STUDY: Standard radiographs from 05/05/2022 CT DOSE: 252.34 mGy.cm TECHNIQUE: Standard CT of the right knee is performed without IV contrast. Multiplanar reconstruction is performed. A dose lowering technique was utilized adhering to the principles of ALARA. FINDINGS: Bones: Bones are osteopenic. There is actually a comminuted fracture present involving the proximal t ibia. A fracture line does extend into the articular margin posteriorly with minimal posterior cortic al buckling present. Multiple additional nondisplaced fractures are seen throughout the proximal tibi al metadiaphysis. The distal femur is intact. The patient is status post previous internal fixation for an old, healed supracondylar fracture of the femur. Plate and screw fixation are present. There are no lytic or karime tic lesions. Joints: There is moderate narrowing of the medial joint compartment and mild narrowing of the lateral joint compartment. The patellofemoral joint is maintained. There is a very small intra-articular eff usion. The bones are in anatomic alignment. Soft tissues: Soft tissue swelling surrounds the knee. There are no focal fluid collections. IMPRESSION: 1. CT confirms the presence of a comminuted fracture of the proximal tibial metadiaphysis with extens ion into the articular margin posteriorly. The comminuted fracture is otherwise nondisplaced. 2. There is a small intra-articular effusion. ACT 112: Negative or not required by law. Electronically signed by: Rai Staples M.D. 05/05/2022 8:52 AM
[2022-05-05] MEDS ORDERED: oxyCODONE HCL IR 5 MG TAB (IMMEDIATE RELEASE) PO STA (09:05)
[2022-05-05] MEDS ORDERED: ACETAMINOPHEN W/CODEINE #3 1 TAB PO ONE ×2 (09:13→14:13)
--- NOTE | 2022-05-05 11:29 | CT Scan Report ---
CT tib/fib LT wo con CLINICAL HISTORY: LLE pain, prox tib/fib fxs COMPARISON STUDY: CT of the knee from 05/05/2022 CT DOSE: 439.40 mGy.cm TECHNIQUE: Standard CT of the is performed without IV contrast. Multiplanar reconstruction is perform ed. A dose lowering technique was utilized adhering to the principles of ALARA. FINDINGS: Bones: As seen on the CT of the knee, there is a comminuted, nondisplaced fracture involving the prox imal tibial metadiaphysis with extension to the articular surface posteriorly. Not described on the knee CT is an impacted, nondisplaced fracture of the neck of the fibula. Minimal cortical overriding is present. Bones are osteopenic with no definite evidence for distal tibia or fibular fracture. There are no lyt ic or blastic lesions. Joints: The joint spaces are maintained. The bones are in anatomic alignment. Soft tissues: There is diffuse subcutaneous soft tissue swelling present involving the entire lower l eg. There are no focal fluid collections. IMPRESSION: 1. Comminuted fracture of the proximal tibial metadiaphysis with extension to the joint margin bottom stop attacher iorly is again seen. 2. This also evidence for an impacted fracture of the neck of the fibula which was not reported on th e previous study. 3. The distal tibia and fibula are intact. No other fractures are identified. 4. Diffuse subcutaneous edema involving the entire lower leg. Sonography ACT 112: Negative or not required by law. Electronically signed by: Rai Staples M.D. 05/05/2022 11:28 AM
--- NOTE | 2022-05-05 11:36 | Consultation Report ---
DATE OF SERVICE: 05/05/2022 Dee is in the ER because she fell on Tuesday walking her dog. Injured the left leg. Prior history o f a supracondylar fracture, treated with ORIF at [facility] 2 years ago. Complains of left leg pain. Health history noted. Osteoporosis. Mental health disorders, multiple medical problems, vitamin D de ficiency. It does not look like her osteoporosis is being treated. There are chronic venous stasis changes with some thickening and discoloration of the skin of the rig ht lower leg, 1+ edema. Dorsalis pedis is 1+. She can flex and extend the ankle and toes, invert an d gopal with 5-/5 strength. She is not able to do a straight leg raise, but she can activate her quad , and her extensor mechanism appears to be intact. Negative log roll. Thigh and knee nontender with out swelling. There is tenderness at the upper third of the left tibia. The foot and ankle are nont maribell. X-rays of the knee demonstrate a healed distal femoral fracture with internal fixation in place. The re is a nondisplaced fracture of the proximal tibia. This was further delineated on the CT scan, [facility] demonstrates the same. Further imaging needs to be obtained below the current level of the CT sca n to fully visualize the fracture. IMPRESSION: Nondisplaced left proximal tibia fracture pathological secondary to vitamin D deficiency and osteoporosis as well as multiple medical problems. PLAN: Findings are discussed with Dee and Edgardo Sesay. I recommend that she needs DVT prophylaxis based upon her risk, either Lovenox or aspirin. She will need to be nonweightbearing. I recommend a long leg posterior splint with an anterior slab with the knee in slight flexion about 10-20 degrees if tolerated. Additionally, she would need to be nonweightbearing for at least 6 weeks. We talked about the possibility for surgery, which has its pros and cons, but I think nonoperative management w ould be appropriate. To that end, she would need likely senior care or [facility] and then senior care. I have concerns about her ability to function safely at home and prevent further i njury. Follow up with me on Tuesday. Pain medication, DVT prophylaxis. Elevate, ice. Continue vitamin D supplementation. Job ID: [id number]
--- NOTE | 2022-05-05 15:08 | History & Physical Report ---
Date of Service May 05, 2022 Assessment & Plan (1) Status post fall: (2) Fracture of proximal end of left tibia and fibula: (3) Ambulatory dysfunction: Plan: This is a 62 yr old F who has a significant PMH of schizophrenia, bipolar disorder, depression, emphysema, cirrhosis, vitamin D deficiency, hard of hearing who presents to ED after sustaining a fall [address]: 1. Comminuted fracture of the proximal tibial metadiaphysis with extension to the joint margin posteriorly is again seen. 2. This also evidence for an impacted fracture of the neck of the fibula which was not reported on the previous study. S/P Mechanical Fall Fracture of the proximal end of left tibia and fibula Ambulatory dysfunction Admit to medical Nonweightbearing to left lower extremity x6 weeks Posterior splint in place Elevate, ice PT/OT ordered Plan for likely rehab Seen and evaluated by Dr. Ogden [facility] orthopedics She is to follow-up with orthopedics on Tuesday, 05/10 We will try Tylenol 3 for pain control, patient has adverse reaction to other narcotics but tends to tolerate this well continue daily vit D, obtain vit d level in a.m. I do not see any prior hx of Dexa scan, pt unaware, will need dexa as OP after healed Hypertension Continue metoprolol History of cirrhosis Compensated History of C. difficile Vancomycin as needed when on antibiotics Schizophrenia Bipolar disorder Depression Mood stable, currently not on antipsychotic DVT prophylaxis: Lovenox Dispo: Medical, PT OT consulted, plan for [facility] Full code PCP: Ishmael Ortiz Pt was seen and examined in collaboration with Dr. Saravia, please see addendum History of Present Illness Chief Complaint: Mechanical Fall 2 days ago. Primary Care Provider: Jersey Ortiz DO This is a 62 yr old F who has a significant PMH of schizophrenia, bipolar disorder, depression, emphysema, cirrhosis, vitamin D deficiency, hard of hearing who presents to ED after sustaining a fall 2 days ago. She was outside walking her dog whenever she tripped over a sports physical therapist that was on the ground. She denies loses consciousness, but when she fell she landed on her left leg, left hip and did hit the top of her left forehead. She does have a mild abrasion to the left forehead but otherwise denies any further injury. When she went down she was unable to get up and had to crawl over to her back steps. Eventually her came for help. She is unable to bear weight due to pain. The patient does have a prior history of left hip replacement as well as left hip fracture. She has no diagnosis of vitamin D deficiency and patient does take vitamin D daily, but patient is unaware if she is ever had a DEXA scan. She otherwise denies any recent illness and feels she is otherwise been in a fair state of health. She is very hard of hearing and wears aids. She denies any fever, chills, sweats, lightheadedness, dizziness, syncope, chest pain, shortness of breath, cough, nausea, vomiting, abdominal pain, change in her bowel or urinary habits. In ED patient was found to have a comminuted but nondisplaced left tibial fracture and fibula fracture. She was seen and evaluated by [facility] orthopedics in ED who recommends a long-leg posterior splint. She is to be nonweightbearing for 6 weeks. Plan is for patient to likely go to [facility] pending authorization. Allergies Allergy/AdvReac Type Severity Reaction Status Date / Time Penicillins Allergy Severe ANAPHYLAXIS Verified 05/05/22 09:17 aspirin [From Percodan] Allergy Unknown Unknown Unverified 05/05/22 09:17 oxycodone [From Percodan] Allergy Unknown Unknown Unverified 05/05/22 09:17 ketorolac [From Toradol] AdvReac Severe Breathing Unverified 05/05/22 09:17 difficulty hydrocodone AdvReac Intermediate Nausea Unverified 05/05/22 09:17 [From Lorcet (hydrocodone)] rifaximin [From Xifaxan] AdvReac Intermediate Dizzy, Unverified 05/05/22 09:17 Fell down ursodiol AdvReac Intermediate Dizzy, Unverified 05/05/22 09:17 Fell down Home Medications Medication Instructions Recorded Confirmed Type Lactobacillus 40-Bifidobact 1 cap PO QAM 05/05/22 05/05/22 History 3-S.thermophilus 100 billion cell capsule (Probiotic) cholecalciferol (vitamin D3) 125 125 mcg PO QAM 05/05/22 05/05/22 History mcg (5,000 unit) tablet (Vitamin D3) dextroamphetamine-amphetamine 10 10 mg PO BID 05/05/22 05/05/22 History mg tablet metoprolol tartrate 100 mg tablet 100 mg PO BID 05/05/22 05/05/22 History sqrbefemgfra-myjecnet-nuyqlq tablet 1 tab PO DAILY 05/05/22 05/05/22 History potassium chloride 10 mEq 10 meq PO BID 05/05/22 05/05/22 History capsule,extended release vancomycin 125 mg capsule 125 mg PO DAILY PRN 05/05/22 05/05/22 History Past Med/Surg History Medical History Bipolar disorder Cirrhosis Depression Emphysema of lung Based on imaging History of CVA (cerebrovascular accident) Osteoporosis Pulmonary nodule 9 mm RML subsolid nodule CT chest 02/29/20. 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 Beliefs That Will Affect Care: None marital status: Current Living Situation: Spouse Feels Safe at Home: Yes Assistive Devices: None Review of Systems Review of Systems: All systems reviewed & are unremarkable except as noted in HPI & below Physical Exam Physical Exam: Constitutional: WD/WN, vitals as above, NAD, sitting up in bed, pleasant, conversing easily Head: Normocephalic, Atraumatic Eyes: PERRL, conjunctivae normal, anicteric sclerae ENMT: external ear and nose normal, [place], + hearing aids in place, oropharynx normal Neck: trachea midline, no thyromegaly normal visual inspection Respiratory: normal respiratory effort, lungs clear to auscultation, no wheeze, rales, rhonchi. Normal insp/exp effort, no accessory muscle use Cardiovascular: RRR, no murmur, RLE nodular lymphedema with venous stasis changes noted, LLE with splint in place, Vessels: no JVD or carotid bruit Chest: normal inspection of chest Abdomen: normal bowel sounds, soft, nontender, no hepatosplenomegaly Musculoskeletal: no cyanosis or clubbing, AROM x 3, LLE in posterior splint, NVI distally Skin: no rashes, warm and dry normal turgor Neurologic: PERRL, EOMI, accommodation nl, no face palsy, no dysarthria CN's II-XI intact bilaterally and moves all extremities Psychiatric: A+Ox3, euthymic affect : deferred Results & Data Results & Data ([facility]) Vital Signs (Past 12 Hours) Vital Signs Temp Pulse Pulse Resp BP BP Pulse Ox 05/05/22 13:00 70 18 146/75 H 94 05/05/22 11:00 65 16 141/71 H 99 05/05/22 09:27 86 18 141/71 H 95 05/05/22 07:32 36.8 C 63 16 129/63 99 Diagnostic Findings Cervical Spine CT 05/05/22 07:44 CT cervical spine wo con CLINICAL HISTORY: s/p fall TECHNIQUE: Multidetector row helical CT of the cervical spine was performed w ithout administration of intravenous contrast. Coronal and sagittal reformations were obtained. Automated dose lowering techniques and/or adjustment according to patient size were utilized for this exam. Comparison: None available at the time of this dictation. FINDINGS: Severe degenerative changes are seen about the spine. Dense this background, no acute fractures are seen. Atherosclerotic calcifications are seen. IMPRESSION: No evidence of cervical fractures. Severe degenerative changes are seen about the neck. ACT 112: Negative or not required by law. Electronically signed by: Fish Carty M.D. 05/05/2022 8:[address] 05/05/22 07:44 CT head/brain wo con CLINICAL HISTORY: 62 years-old Female with s/p fall. Acute head injury status post fall TECHNIQUE: Multiple axial CT images of the head were obtained without contrast. A dose lowering technique was utilized adhering to the principles of ALARA. COMPARISON: Head CT 07/06/2020 FINDINGS: No acute intracranial hemorrhage, midline shift, intracranial mass, hydrocephalus, territorial ischemia or abnormal extra-axial collection. The study is mildly motion degraded. White matter hypodensities are redemonstrated suggestive of chronic microvascular ischemic disease. Cerebral vascular calcifications. The calvarium is intact. The paranasal sinuses, mastoid air cells, and middle ear cavities are clear. IMPRESSION: No acute intracranial abnormality or calvarial fracture. ACT 112: Negative or not required by law. The above report was generated using voice recognition software. It may contain grammatical, syntax or spelling errors. Electronically signed by: Mike Purdy M.D. 05/05/2022 8:46 AM Knee X-Ray 05/05/22 07:44 XR knee LT 1 or 2V routine CLINICAL HISTORY: L knee injury s/p fall. COMPARISON STUDY: No previous studies for comparison. TECHNIQUE: 3 left knee views FINDINGS: Bones: The bones are osteopenic. The patient is status post laser and screw fixation for an old, healed distal supracondylar fracture of the femur. There is an acute, impacted fracture present involving the proximal tibial metadiaphysis. Only minimal cortical offset is present. There is no lytic or blastic lesion. Joints: The joint spaces are maintained. There is no evidence for an intra- articular effusion. The bones are in anatomic alignment. Soft tissues: There is no focal soft tissue abnormality. There is no radiopaque foreign body. IMPRESSION: 1. Osteopenia with an acute, impacted nondisplaced fracture of the proximal tibial metadiaphysis. ACT 112: Negative or not required by law. Electronically signed by: Rai Staples M.D. 05/05/2022 8:29 AM Ribs w/Chest X-Ray 05/05/22 07:44 XR ribs RT min 2V w [id number] CLINICAL HISTORY: s/p fall TECHNIQUE: 3 views of the right ribs were obtained. Single frontal view of the chest was obtained. Comparison: None available at the time of this dictation. FINDINGS: No acute fractures are seen. Old healed fractures are noted in the right ribs. Degenerative changes are seen spine. The chest wall and soft tissues are normal. The cardiomediastinal silhouette is normal. The lungs are clear. No evidence of pleural effusion or pneumothorax. IMPRESSION: No evidence of acute fracture. Old healed fractures are seen in the right ribs. ACT 112: Negative or not required by law. Electronically signed by: Fish Carty M.D. 05/05/2022 8:[address] 05/05/22 08:26 CT knee LT wo con CLINICAL HISTORY: Status post fall with proximal tibial fracture. Evaluate for intra-articular extension. COMPARISON STUDY: Standard radiographs from 05/05/2022 CT DOSE: 252.34 mGy.cm TECHNIQUE: Standard CT of the right knee is performed without IV contrast. Multiplanar reconstruction is performed. A dose lowering technique was utilized adhering to the principles of ALARA. FINDINGS: Bones: Bones are osteopenic. There is actually a comminuted fracture present involving the proximal tibia. A fracture line does extend into the articular margin posteriorly with minimal posterior cortical buckling present. Multiple additional nondisplaced fractures are seen throughout the proximal tibial metadiaphysis. The distal femur is intact. The patient is status post previous internal fix ation for an old, healed supracondylar fracture of the femur. Plate and screw fixation are present. There are no lytic or blastic lesions. Joints: There is moderate narrowing of the medial joint compartment and mild narrowing of the lateral joint compartment. The patellofemoral joint is maintained. There is a very small intra-articular effusion. The bones are in anatomic alignment. Soft tissues: Soft tissue swelling surrounds the knee. There are no focal fluid collections. IMPRESSION: 1. CT confirms the presence of a comminuted fracture of the proximal tibial metadiaphysis with extension into the articular margin posteriorly. The comminuted fracture is otherwise nondisplaced. 2. There is a small intra-articular effusion. ACT 112: Negative or not required by law. Electronically signed by: Rai Staples M.D. 05/05/2022 8:[address] 05/05/22 10:48 CT tib/fib LT wo con CLINICAL HISTORY: LLE pain, prox tib/fib fxs COMPARISON STUDY: CT of the knee from 05/05/2022 CT DOSE: 439.40 mGy.cm TECHNIQUE: Standard CT of the is performed without IV contrast. Multiplanar reconstruction is performed. A dose lowering technique was utilized adhering to the principles of ALARA. FINDINGS: Bones: As seen on the CT of the knee, there is a comminuted, nondisplaced fracture involving the proximal tibial metadiaphysis with extension to the articular surface posteriorly. Not described on the knee CT is an impacted, nondisplaced fracture of the neck of the fibula. Minimal cortical overriding is present. Bones are osteopenic with no definite evidence for distal tibia or fibular fracture. There are no lytic or blastic lesions. Joints: The joint spaces are maintained. The bones are in anatomic alignment. Soft tissues: There is diffuse subcutaneous soft tissue swelling present involving the entire lower leg. There are no focal fluid collections. IMPRESSION: 1. Comminuted fracture of the proximal tibial metadiaphysis with extension to the joint margin posteriorly is again seen. 2. This also evidence for an impacted fracture of the neck of the fibula which was not reported on the previous study. 3. The distal tibia and fibula are intact. No other fractures are identified. 4. Diffuse subcutaneous edema involving the entire lower leg. Sonography ACT 112: Negative or not required by law. Electronically signed by: Rai Staples M.D. 05/05/2022 11:28 AM Medications Administered Medication List Discontinued Medications Acetaminophen/Codeine Phosphate (Acetaminophen W/Codeine #3 1 Tab) 1 tab PO NOW ONE Stop: 05/05/22 09:14 Last Admin: 05/05/22 10:43 Dose: 1 tab Documented by: [id number] Acetaminophen/Codeine Phosphate (Acetaminophen W/Codeine #3 1 Tab) 1 tab PO NOW ONE Stop: 05/05/22 14:14 Last Admin: 05/05/22 14:25 Dose: 1 tab Documented by: [id number] Oxycodone HCl (Oxycodone Hcl Ir 5 Mg Tab (Immediate Release)) 5 mg PO NOW STA Stop: 05/05/22 09:06 Last Admin: 05/05/22 10:16 Dose: Not Given Documented by: [id number] COVID-19 Results Results COVID-19 Adm Lab Results: SARS-CoV-2, RNA, NAAT NEGATIVE (NEGATIVE) 05/05/22 Code Status & VTE Plan Code Status FULL CODE VTE Prophylaxis Plan VTE Prophylaxis will be ordered: Yes Supervising Physician Co-Signing Physician Notes 62 yr old F who has a significant PMH of schizophrenia, bipolar disorder, depression, emphysema, cirrhosis, vitamin D deficiency, hard of hearing who presents to ED after sustaining a fall 2 days ago, mechanical. Upon imagings review in the ED, she sustained fracture of the proximal end of left tibia and fibula. PT/OT ordered, plan for rehab. Seen and evaluated by orthopedics, follow-up with orthopedics as an outpatient, pain management and conservative management for now. Continue home meds for other chronic medical conditions. Upon examination: GENERAL: Alert and oriented x3. NAD, on RA. Ill and weak appearing. [place], hearing aids in place. HEENT: No pallor, no icterus. Pupils equal, round and reactive to light. Oral mucosa moist. NECK: No JVD, no neck masses. HEART: S1 and S2 heard. Regular rate and rhythm. systolic murmur A>P, no gallop. RESPIRATORY SYSTEM: Normal AP diameter. No accessory muscle use. No wheezing, no crackles. ABDOMEN: Soft, bowel sounds present, nontender, no distention. CENTRAL NERVOUS SYSTEM: No facial droop. Speech is clear. Obeys simple commands. Moves extremities. EXTREMITIES: RLE 2+ edema w/ chronic skin changes, LLE w/ splint and dressing. no erythema seen. I have seen and examined the patient and have discussed the case with the provider above. I agree with the assessment and plan as stated. (1) Fracture of proximal end of left tibia and fibula Encounter type: initial encounter Fracture type: closed Qualified Code(s): S82.102A - Unspecified fracture of upper end of left tibia, initial encounter for closed fracture; S82.832A - Other fracture of upper and lower end of left fibula, initial encounter for closed fracture
[2022-05-05] MEDS ORDERED: POLYETHYLENE (MIRALAX) 17 GM PACK PO PRN (18:38)
[2022-05-05] MEDS ORDERED: ALUMINUM/MAGNESIUM SUSP 30 ML UDC PO PRN (18:38)
[2022-05-05] MEDS ORDERED: ONDANSETRON INJ 2 MG/ML 2 ML VIAL IV PRN (18:38)
[2022-05-05] MEDS ORDERED: MAGNESIUM HYDROXIDE SUSP 30 ML UDC PO PRN (18:38)
[2022-05-05] MEDS ORDERED: ACETAMINOPHEN 325 MG TAB PO PRN (18:38)
[2022-05-05] MEDS: ACETAMINOPHEN W/CODEINE #3 1 TAB PO SCH (19:33)
[2022-05-05] MEDS: POTASSIUM CHLORIDE 10 MEQ TABCR PO SCH (21:50)
[2022-05-05] MEDS: ENOXAPARIN INJ 40 MG/0.4 ML SYR SQ SCH (21:50)
[2022-05-05] MEDS: METOPROLOL TARTRATE 100 MG TAB PO SCH (21:50)
[2022-05-06] MEDS: ACETAMINOPHEN W/CODEINE #3 1 TAB PO SCH ×5 (01:03→23:52)
[2022-05-06] MEDS: AMPHETAMINE ASP/SULF/DEXTRAMPH 10 MG TAB PO SCH ×2 (06:27→14:43)
[2022-05-06] MEDS: METOPROLOL TARTRATE 100 MG TAB PO SCH ×2 (07:59→20:32)
[2022-05-06] MEDS: CHOLECALCIFEROL 5,000 UNITS 125 MCG TAB PO SCH ×2 (07:59→09:15)
[2022-05-06] MEDS: CEROVITE ADV FORMULA TAB PO SCH (07:59)
[2022-05-06] MEDS: POTASSIUM CHLORIDE 10 MEQ TABCR PO SCH ×2 (07:59→20:32)
[2022-05-06] MEDS ORDERED: [UNRECOGNIZED DRUG - OTHER] PO SCH (09:00)
[2022-05-06 09:43] LABS: Basophils # (auto) 0.06 K/uL (0-0.2); Basophils % (auto) 1.1 %; Eosinophils # (auto) 0.36 K/uL (0-0.5); Eosinophils % (auto) 6.4 %; Hematocrit (blood only) 33.9 % (37-47); Hemoglobin 11.2 g/dL (12.0-16.0); Immature Granulocytes # (auto) 0.01 K/uL (0.00-0.02); Immature Granulocytes % (auto) 0.2 %; Lymphocytes # (auto) 0.97 K/uL (1.2-3.4); Lymphocytes % (auto) 17.1 %; Mean Corpuscular Hemoglobin 30.9 pg (25-34); Mean Corpuscular Volume 93.4 fL (80-100); Mean Platelet Volume 11.3 fL (7.4-10.4); Monocytes # (auto) 0.55 K/uL (0.11-0.59); Monocytes % (auto) 9.7 %; Neutrophils # (auto) 3.71 K/uL (1.4-6.5); Neutrophils % (auto) 65.5 %; Platelet Count 106 K/uL (130-400); RDW Coefficient of Variation 15.3 % (11.5-14.5); RDW Standard Deviation 52.3 fL (36.4-46.3); Red Blood Count 3.63 M/uL (4.2-5.4); White Blood Count 5.66 K/uL (4.8-10.8)
[2022-05-06 10:03] LABS: Creatinine Clr Calc Pharmacy 104.5 ml/min; Est GFR (African American) 113.2 ml/min; Est GFR (Non-African American) 97.7 ml/min; Potassium 3.4 mmol/L (3.5-5.1)
[2022-05-06 10:04] LABS: Albumin Globulin Ratio 1.2 (0.9-2); Albumin Level 3.3 gm/dl (3.4-5.0); Bilirubin,Total 1.3 mg/dl (0.2-1.0); Calcium 8.7 mg/dl (8.5-10.1); Globulin 2.8 gm/dl (2.5-4.0); Magnesium 1.6 mg/dl (1.7-2.4); Total Protein 6.1 gm/dl (6.0-8.3)
--- NOTE | 2022-05-06 10:51 | Orthopedic Progress Note ---
Date of Service May 06, 2022 Assessment & Plan (1) Fracture of proximal end of left tibia and fibula: Plan: left proximal tibia fracture - nondisplaced Needs to be NWB LLE at all times x 8 weeks. Ice to left knee as needed. Keep splint on left leg at all times. Use walker to assist with ambulation and transfers. Wheelchair. Keep heels off of bed. PT/OT as ordered Case management for disposition, referral to [facility] pending. Okay for discharge to [facility] from orthopedic standpoint when medically stable. Lovenox for DVT prophylaxis. Follow up as scheduled in 7-[address] Ogden. Admission and Anticipated Discharge Date Admission Date: May 05, 2022 Subjective Patient doing well. No complaints of pain in left knee. She states that she is bored. Physical Exam Musculoskeletal: Splint left leg clean, dry and intact. Splint adjusted at foot mildly. Distal sensation intact. Tolerates movement of her toes left foot. Dorsalis pedis pulse 1+. Left leg elevated on 1 pillow. Results & Data ([facility]) Vital Signs (Past 12 Hours) Vital Signs Temp Pulse Resp BP Pulse Ox 05/06/22 07:35 36.8 C 76 16 138/69 92 Laboratory Results 05/06/22 05/06/22 05/06/22 Range/Units 09:01 09:01 09:01 WBC 5.66 (4.8-10.8) K/uL RBC 3.63 L (4.2-5.4) M/uL Hgb 11.2 L (12.0-16.0) g/dL Hct 33.9 L (37-47) % MCV 93.4 (80-100) fL MCH 30.9 (25-34) pg MCHC 33.0 (32-36) g/dL RDW Std Deviation 52.3 H (36.4-46.3) fL RDW Coeff of Dewayne 15.3 H (11.5-14.5) % Plt Count 106 L (130-400) K/uL MPV 11.3 H (7.4-10.4) fL Immature Gran % (Auto) 0.2 % Neut % (Auto) 65.5 % Lymph % (Auto) 17.1 % Mcdonough % (Auto) 9.7 % Eos % (Auto) 6.4 % Baso % (Auto) 1.1 % Neut # (Auto) 3.71 (1.4-6.5) K/uL Lymph # (Auto) 0.97 L (1.2-3.4) K/uL Mcdonough # (Auto) 0.55 (0.11-0.59) K/uL Eos # (Auto) 0.36 (0-0.5) K/uL Baso # (Auto) 0.06 (0-0.2) K/uL Immature Gran # (Auto) 0.01 (0.00-0.02) K/uL Sodium 137 (136-145) mmol/L Potassium 3.4 L (3.5-5.1) mmol/L Chloride 107 (98-107) mmol/L Carbon Dioxide 24 (21-32) mmol/L Anion Gap 6 (3-11) BUN 12 (6-23) mg/dl Creatinine 0.60 (0.6-1.2) mg/dl Est Cr Clr Drug Dosing 104.5 ml/min Est GFR ( Amer) 113.2 ml/min Est GFR (Non-Af Amer) 97.7 ml/min BUN/Creatinine Ratio 20.0 (10-20) Glucose 135 H (70-99(Fasting)) mg/dl Calcium 8.7 (8.5-10.1) mg/dl Magnesium 1.6 L (1.7-2.4) mg/dl Total Bilirubin 1.3 H (0.2-1.0) mg/dl AST 31 (13-39) U/L ALT 24 (7-52) U/L Alkaline Phosphatase 106 H (34-104) U/L Total Protein 6.1 (6.0-8.3) gm/dl Albumin 3.3 L (3.4-5.0) gm/dl Globulin 2.8 (2.5-4.0) gm/dl Albumin/Globulin Ratio 1.2 (0.9-2) 25-OH Vitamin D Total 63.4 (30-100) ng/ml SARS-CoV-2, RNA, NAAT (NEGATIVE) 05/05/22 Range/Units 13:50 WBC (4.8-10.8) K/uL RBC (4.2-5.4) M/uL Hgb (12.0-16.0) g/dL Hct (37-47) % MCV (80-100) fL MCH (25-34) pg MCHC (32-36) g/dL RDW Std Deviation (36.4-46.3) fL RDW Coeff of Dewayne (11.5-14.5) % Plt Count (130-400) K/uL MPV (7.4-10.4) fL Immature Gran % (Auto) % Neut % (Auto) % Lymph % (Auto) % Mcdonough % (Auto) % Eos % (Auto) % Baso % (Auto) % Neut # (Auto) (1.4-6.5) K/uL Lymph # (Auto) (1.2-3.4) K/uL Mcdonough # (Auto) (0.11-0.59) K/uL Eos # (Auto) (0-0.5) K/uL Baso # (Auto) (0-0.2) K/uL Immature Gran # (Auto) (0.00-0.02) K/uL Sodium (136-145) mmol/L Potassium (3.5-5.1) mmol/L Chloride (98-107) mmol/L Carbon Dioxide (21-32) mmol/L Anion Gap (3-11) BUN (6-23) mg/dl Creatinine (0.6-1.2) mg/dl Est Cr Clr Drug Dosing ml/min Est GFR ( Amer) ml/min Est GFR (Non-Af Amer) ml/min BUN/Creatinine Ratio (10-20) Glucose (70-99(Fasting)) mg/dl Calcium (8.5-10.1) mg/dl Magnesium (1.7-2.4) mg/dl Total Bilirubin (0.2-1.0) mg/dl AST (13-39) U/L ALT (7-52) U/L Alkaline Phosphatase (34-104) U/L Total Protein (6.0-8.3) gm/dl Albumin (3.4-5.0) gm/dl Globulin (2.5-4.0) gm/dl Albumin/Globulin Ratio (0.9-2) 25-OH Vitamin D Total (30-100) ng/ml SARS-CoV-2, RNA, NAAT NEGATIVE (NEGATIVE) Diagnostic Findings CT tib/fib LT wo con CLINICAL HISTORY: LLE pain, prox tib/fib fxs COMPARISON STUDY: CT of the knee from 05/05/2022 CT DOSE: 439.40 mGy.cm TECHNIQUE: Standard CT of the is performed without IV contrast. Multiplanar reconstruction is performed. A dose lowering technique was utilized adhering to the principles of ALARA. FINDINGS: Bones: As seen on the CT of the knee, there is a comminuted, nondisplaced fracture involving the proximal tibial metadiaphysis with extension to the articular surface posteriorly. Not described on the knee CT is an impacted, nondisplaced fracture of the neck of the fibula. Minimal cortical overriding is present. Bones are osteopenic with no definite evidence for distal tibia or fibular fracture. There are no lytic or blastic lesions. Joints: The joint spaces are maintained. The bones are in anatomic alignment. Soft tissues: There is diffuse subcutaneous soft tissue swelling present involving the entire lower leg. There are no focal fluid collections. IMPRESSION: 1. Comminuted fracture of the proximal tibial metadiaphysis with extension to the joint margin posteriorly is again seen. 2. This also evidence for an impacted fracture of the neck of the fibula which was not reported on the previous study. 3. The distal tibia and fibula are intact. No other fractures are identified. 4. Diffuse subcutaneous edema involving the entire lower leg. Sonography CT knee LT wo con CLINICAL HISTORY: Status post fall with proximal tibial fracture. Evaluate for intra-articular extension. COMPARISON STUDY: Standard radiographs from 05/05/2022 CT DOSE: 252.34 mGy.cm TECHNIQUE: Standard CT of the right knee is performed without IV contrast. Multiplanar reconstruction is performed. A dose lowering technique was utilized adhering to the principles of ALARA. FINDINGS: Bones: Bones are osteopenic. There is actually a comminuted fracture present involving the proximal tibia. A fracture line does extend into the articular margin posteriorly with minimal posterior cortical buckling present. Multiple additional nondisplaced fractures are seen throughout the proximal tibial metadiaphysis. The distal femur is intact. The patient is status post previous internal fixation for an old, healed supracondylar fracture of the femur. Plate and screw fixation are present. There are no lytic or blastic lesions. Joints: There is moderate narrowing of the medial joint compartment and mild narrowing of the lateral joint compartment. The patellofemoral joint is maintained. There is a very small intra-articular effusion. The bones are in anatomic alignment. Soft tissues: Soft tissue swelling surrounds the knee. There are no focal fluid collections. IMPRESSION: 1. CT confirms the presence of a comminuted fracture of the proximal tibial metadiaphysis with extension into the articular margin posteriorly. The comminuted fracture is otherwise nondisplaced. 2. There is a small intra-articular effusion. (1) Fracture of proximal end of left tibia and fibula Encounter type: initial encounter Fracture type: closed Qualified Code(s): S82.102A - Unspecified fracture of upper end of left tibia, initial encounter for closed fracture; S82.832A - Other fracture of upper and lower end of left fibula, initial encounter for closed fracture
[2022-05-06] MEDS ORDERED: POTASSIUM CHLORIDE CRTAB 20 MEQ TABCR PO STA (11:41)
--- NOTE | 2022-05-06 11:54 | Hospitalist Progress Note ---
Date of Service May 06, 2022 Assessment & Plan (1) Status post fall: (2) Fracture of proximal end of left tibia and fibula: (3) Ambulatory dysfunction: Plan: This is a 62 yr old F who has a significant PMH of schizophrenia, bipolar disorder, depression, emphysema, cirrhosis, vitamin D deficiency, hard of hearing who presents to ED after sustaining a fall [address]: 1. Comminuted fracture of the proximal tibial metadiaphysis with extension to the joint margin posteriorly is again seen. 2. This also evidence for an impacted fracture of the neck of the fibula which was not reported on the previous study. S/P Mechanical Fall Fracture of the proximal end of left tibia and fibula Ambulatory dysfunction Nonweightbearing to left lower extremity x8 weeks Posterior splint in place Elevate, ice PT/OT ordered Plan for likely rehab / [facility] Use walker to assist with ambulation and transfers. Wheelchair. Keep heels off of bed. Continue Lovenox for 2 to 4 weeks for DVT prophylaxis, discontinue after further discussion with Dr. Ogden Seen and evaluated by Dr. Ogden [facility] orthopedics She is to follow-up with orthopedics on 05/14 Continue Tylenol 3 for pain control, patient has adverse reaction to other narcotics but tends to tolerate this well continue daily vit D, vit d level this a.m. 63 I do not see any prior hx of Dexa scan, pt unaware, will need dexa as OP after healed Hypertension Continue metoprolol History of cirrhosis Compensated History of C. difficile Vancomycin as needed when on antibiotics Schizophrenia Bipolar disorder Depression Mood stable, currently not on antipsychotic DVT prophylaxis: Lovenox Dispo: Medical, PT OT consulted, plan for [facility] Full code PCP: Ishmael Ortiz Admission and Anticipated Discharge Date Admission Date: May 05, 2022 Subjective Patient seen in follow-up of left tibial and fibular fracture Seen by orthopedics, Dr. Ogden Currently laying in bed, in no acute distress Denies fevers, chills, chest pain, shortness of breath, abdominal pain, nausea vomiting Left lower extremity in a splint Plan to discharge to [facility] Review of Systems Review of Systems: All systems reviewed & are unremarkable except as noted in Subjective Physical Exam Physical Exam: Constitutional: WD/WN, in NAD, sitting up in bed, pleasant, conversing easily Head: Normocephalic, Atraumatic Eyes: PERRL, EOMI, conjunctivae normal, anicteric sclerae ENMT: external ear and nose normal, NIKOLSKI, + hearing aids in place, oropharynx normal Neck: normal visual inspection Respiratory: normal respiratory effort, lungs clear to auscultation, no wheeze, rales, rhonchi. Cardiovascular: RRR, no murmur, RLE nodular lymphedema with venous stasis changes noted, LLE with splint in place Chest: normal inspection of chest Abdomen: normal bowel sounds, soft, nontender Musculoskeletal: AROM x 3, LLE in posterior splint, NVI distally Skin: warm and dry Neurologic: PERRL, EOMI, no face palsy, no dysarthria, moves all extremities Psychiatric: A+Ox3, euthymic affect Results & Data Results & Data ([facility]) Vital Signs (Past 12 Hours) Vital Signs Temp Pulse Resp BP Pulse Ox 05/06/22 07:35 36.8 C 76 16 138/69 92 Laboratory Results 05/06/22 05/06/22 05/06/22 Range/Units 09:01 09:01 09:01 WBC 5.66 (4.8-10.8) K/uL RBC 3.63 L (4.2-5.4) M/uL Hgb 11.2 L (12.0-16.0) g/dL Hct 33.9 L (37-47) % MCV 93.4 (80-100) fL MCH 30.9 (25-34) pg MCHC 33.0 (32-36) g/dL RDW Std Deviation 52.3 H (36.4-46.3) fL RDW Coeff of Dewayne 15.3 H (11.5-14.5) % Plt Count 106 L (130-400) K/uL MPV 11.3 H (7.4-10.4) fL Immature Gran % (Auto) 0.2 % Neut % (Auto) 65.5 % Lymph % (Auto) 17.1 % Hendry % (Auto) 9.7 % Eos % (Auto) 6.4 % Baso % (Auto) 1.1 % Neut # (Auto) 3.71 (1.4-6.5) K/uL Lymph # (Auto) 0.97 L (1.2-3.4) K/uL Hendry # (Auto) 0.55 (0.11-0.59) K/uL Eos # (Auto) 0.36 (0-0.5) K/uL Baso # (Auto) 0.06 (0-0.2) K/uL Immature Gran # (Auto) 0.01 (0.00-0.02) K/uL Sodium 137 (136-145) mmol/L Potassium 3.4 L (3.5-5.1) mmol/L Chloride 107 (98-107) mmol/L Carbon Dioxide 24 (21-32) mmol/L Anion Gap 6 (3-11) BUN 12 (6-23) mg/dl Creatinine 0.60 (0.6-1.2) mg/dl Est Cr Clr Drug Dosing 104.5 ml/min Est GFR ( Amer) 113.2 ml/min Est GFR (Non-Af Amer) 97.7 ml/min BUN/Creatinine Ratio 20.0 (10-20) Glucose 135 H (70-99(Fasting)) mg/dl Calcium 8.7 (8.5-10.1) mg/dl Magnesium 1.6 L (1.7-2.4) mg/dl Total Bilirubin 1.3 H (0.2-1.0) mg/dl AST 31 (13-39) U/L ALT 24 (7-52) U/L Alkaline Phosphatase 106 H (34-104) U/L Total Protein 6.1 (6.0-8.3) gm/dl Albumin 3.3 L (3.4-5.0) gm/dl Globulin 2.8 (2.5-4.0) gm/dl Albumin/Globulin Ratio 1.2 (0.9-2) 25-OH Vitamin D Total 63.4 (30-100) ng/ml SARS-CoV-2, RNA, NAAT (NEGATIVE) 05/05/22 Range/Units 13:50 WBC (4.8-10.8) K/uL RBC (4.2-5.4) M/uL Hgb (12.0-16.0) g/dL Hct (37-47) % MCV (80-100) fL MCH (25-34) pg MCHC (32-36) g/dL RDW Std Deviation (36.4-46.3) fL RDW Coeff of Dewayne (11.5-14.5) % Plt Count (130-400) K/uL MPV (7.4-10.4) fL Immature Gran % (Auto) % Neut % (Auto) % Lymph % (Auto) % Hendry % (Auto) % Eos % (Auto) % Baso % (Auto) % Neut # (Auto) (1.4-6.5) K/uL Lymph # (Auto) (1.2-3.4) K/uL Hendry # (Auto) (0.11-0.59) K/uL Eos # (Auto) (0-0.5) K/uL Baso # (Auto) (0-0.2) K/uL Immature Gran # (Auto) (0.00-0.02) K/uL Sodium (136-145) mmol/L Potassium (3.5-5.1) mmol/L Chloride (98-107) mmol/L Carbon Dioxide (21-32) mmol/L Anion Gap (3-11) BUN (6-23) mg/dl Creatinine (0.6-1.2) mg/dl Est Cr Clr Drug Dosing ml/min Est GFR ( Amer) ml/min Est GFR (Non-Af Amer) ml/min BUN/Creatinine Ratio (10-20) Glucose (70-99(Fasting)) mg/dl Calcium (8.5-10.1) mg/dl Magnesium (1.7-2.4) mg/dl Total Bilirubin (0.2-1.0) mg/dl AST (13-39) U/L ALT (7-52) U/L Alkaline Phosphatase (34-104) U/L Total Protein (6.0-8.3) gm/dl Albumin (3.4-5.0) gm/dl Globulin (2.5-4.0) gm/dl Albumin/Globulin Ratio (0.9-2) 25-OH Vitamin D Total (30-100) ng/ml SARS-CoV-2, RNA, NAAT NEGATIVE (NEGATIVE) Medications Administered Current Inpatient Medications Acetaminophen (Acetaminophen 325 Mg Tab) 650 mg PO Q4H PRN PRN Reason: pain/fever Stop: 06/04/22 18:37 Acetaminophen/Codeine Phosphate (Acetaminophen W/Codeine #3 1 Tab) 2 tab PO Q6H MARIA E Stop: 06/04/22 18:37 Last Admin: 05/06/22 06:27 Dose: 2 tab Documented by: Al Hydrox/Mg Hydrox/Simethicone (Aluminum/Magnesium Susp 30 Ml Udc) 30 ml PO Q6H PRN PRN Reason: Dyspepsia Stop: 06/04/22 18:37 Amphetamine/Dextroamphetamine (Amphetamine Asp/Sulf/Dextramph 10 Mg Tab) 10 mg PO BID@0700,1400 [facility] Stop: 05/20/22 06:59 Last Admin: 05/06/22 06:27 Dose: 10 mg Documented by: Enoxaparin Sodium (Enoxaparin Inj 40 Mg/0.4 Ml Syr) 40 mg SQ HS [facility] Stop: 06/04/22 20:59 Last Admin: 05/05/22 21:50 Dose: 40 mg Documented by: Magnesium Hydroxide (Magnesium Hydroxide Susp 30 Ml Udc) 30 ml PO Q6H PRN PRN Reason: Constipation Stop: 06/04/22 18:37 Magnesium Oxide (Magnesium Oxide 400 Mg Tab) 400 mg PO QAM [facility] Stop: 06/05/22 11:44 Metoprolol Tartrate (Metoprolol Tartrate 100 Mg Tab) 100 mg PO BID [facility] Stop: 06/04/22 20:59 Last Admin: 05/06/22 07:59 Dose: 100 mg Documented by: Multivitamins/Minerals (Cerovite Adv Formula Tab) 1 tab PO DAILY [facility] Stop: 06/05/22 08:59 Last Admin: 05/06/22 07:59 Dose: 1 tab Documented by: Ondansetron HCl (Ondansetron Inj 2 Mg/Ml 2 Ml Vial) 4 mg IV Q6H PRN PRN Reason: Nausea Stop: 06/04/22 18:37 Polyethylene Glycol (Polyethylene (Miralax) 17 Gm Pack) 17 gm PO DAILY PRN PRN Reason: Constipation Stop: 06/04/22 18:37 Potassium Chloride (Potassium Chloride 10 Meq Tabcr) 10 meq PO BID [facility] Stop: 06/04/22 20:59 Last Admin: 05/06/22 07:59 Dose: 10 meq Documented by: Sennosides (Senna 8.6 Mg Tab) 8.6 mg PO QAM [facility] Stop: 06/05/22 11:59 Vitamin D (Cholecalciferol 5,000 Units 125 Mcg Tab) 5,000 units PO QAM MARIA E Stop: 06/05/22 08:59 Last Admin: 05/06/22 09:15 Dose: 5,000 units Documented by: (1) Fracture of proximal end of left tibia and fibula Encounter type: initial encounter Fracture type: closed Qualified Code(s): S82.102A - Unspecified fracture of upper end of left tibia, initial encounter for closed fracture; S82.832A - Other fracture of upper and lower end of left f ibula, initial encounter for closed fracture
[2022-05-06] MEDS: SENNA 8.6 MG TAB PO SCH (12:46)
[2022-05-06] MEDS: MAGNESIUM OXIDE 400 MG TAB PO SCH (12:46)
[2022-05-06] MEDS: ENOXAPARIN INJ 40 MG/0.4 ML SYR SQ SCH (20:32)
[2022-05-06] MEDS ORDERED: guaiFENesin SUGAR FREE 200 MG/10 ML UDC PO PRN (23:13)
[2022-05-07] MEDS: AMPHETAMINE ASP/SULF/DEXTRAMPH 10 MG TAB PO SCH ×2 (06:11→14:28)
[2022-05-07] MEDS: ACETAMINOPHEN W/CODEINE #3 1 TAB PO SCH ×4 (06:12→23:38)
--- NOTE | 2022-05-07 07:22 | XRay Report ---
XR chest 1V portable HISTORY: 62 years-old Female cough acute cough COMPARISON: Chest and rib radiographs 05/05/2022, chest CT 03/18/2020. TECHNIQUE: Portable AP view of the chest FINDINGS: The cardiac silhouette is enlarged. No pneumothorax or large pleural effusion. Emphysema with chronic interstitial coarsening. 1.9 cm subpleural opacity of the right lung apex is suggestive of probable scarring. Unchanged blunting of the costophrenic angles. Mild left basilar opacities. Degenerative ch anges of the shoulders and spine. IMPRESSION: 1. Mild left basilar opacities suggest atelectasis versus pneumonia. 2. Emphysema with chronic fibrotic changes. 3. Cardiomegaly. ACT 112: Negative or not required by law. The above report was generated using voice recognition software. It may contain grammatical, syntax o r spelling errors. Electronically signed by: Mike Purdy M.D. 05/07/2022 7:20 AM
[2022-05-07 08:50] LABS: Hemoglobin 11.1 g/dL (12.0-16.0); Mean Corpuscular Hemoglobin 32.5 pg (25-34); Mean Corpuscular Hgb Conc 34.7 g/dL (32-36); Mean Corpuscular Volume 93.6 fL (80-100); RDW Coefficient of Variation 15.1 % (11.5-14.5); RDW Standard Deviation 51.4 fL (36.4-46.3); Red Blood Count 3.42 M/uL (4.2-5.4); White Blood Count 5.12 K/uL (4.8-10.8)
[2022-05-07] MEDS: METOPROLOL TARTRATE 100 MG TAB PO SCH ×2 (08:50→21:04)
[2022-05-07] MEDS: POTASSIUM CHLORIDE 10 MEQ TABCR PO SCH ×2 (08:51→21:03)
[2022-05-07] MEDS: SENNA 8.6 MG TAB PO SCH (08:51)
[2022-05-07] MEDS: CEROVITE ADV FORMULA TAB PO SCH (08:51)
[2022-05-07] MEDS: CHOLECALCIFEROL 5,000 UNITS 125 MCG TAB PO SCH (08:51)
[2022-05-07] MEDS: MAGNESIUM OXIDE 400 MG TAB PO SCH ×2 (08:51→21:04)
[2022-05-07 09:08] LABS: Est GFR (African American) 121.8 ml/min; Potassium 3.9 mmol/L (3.5-5.1)
[2022-05-07 09:09] LABS: BUN Creatinine Ratio 20.8 (10-20); Calcium 8.7 mg/dl (8.5-10.1); Creatinine Clr Calc Pharmacy 130.6 ml/min; Est GFR (Non-African American) 105.1 ml/min; Magnesium 1.6 mg/dl (1.7-2.4)
[2022-05-07 09:29] LABS: Mean Platelet Volume 11.5 fL (7.4-10.4); Platelet Count 85 K/uL (130-400)
[2022-05-07 11:57] LABS: Appearance Urine Cloudy (Clear); Bacteria Urine Automated 4+ (Negative); Bilirubin Urine Negative (Negative); Blood Urine 1+ (Negative); Color Urine Yellow; Epithelial Cell Urine Auto 0-5 /lpf (0-5); Glucose Urine UA Negative (Negative); Ketones Urine Negative (Negative); Leukocyte Esterase Urine 2+ (Negative); Nitrite Urine Negative (Negative); Protein Urine Negative (Negative); RBC Urine Automated 0-4 /hpf (0-4); Specific Gravity Urine 1.009 (1.000-1.030); Urobilinogen Urine Negative (Negative); WBC Urine Automated >30 /hpf (0-5)
[2022-05-07] MEDS ORDERED: MAGNESIUM SULFATE / D5W 1 GM/100 ML BAG IV ONE (14:00)
--- NOTE | 2022-05-07 14:05 | Hospitalist Progress Note ---
Date of Service May 07, 2022 Assessment & Plan (1) Status post fall: (2) Fracture of proximal end of left tibia and fibula: (3) Ambulatory dysfunction: Plan: This is a 62 yr old F who has a significant PMH of schizophrenia, bipolar disorder, depression, emphysema, cirrhosis, vitamin D deficiency, hard of hearing who presents to ED after sustaining a fall [address]: 1. Comminuted fracture of the proximal tibial metadiaphysis with extension to the joint margin posteriorly is again seen. 2. This also evidence for an impacted fracture of the neck of the fibula which was not reported on the previous study. S/P Mechanical Fall Fracture of the proximal end of left tibia and fibula Ambulatory dysfunction Nonweightbearing to left lower extremity x8 weeks Posterior splint in place Elevate, ice PT/OT ordered Plan for [facility] rehab [facility] Use walker to assist with ambulation and transfers. Wheelchair. Keep heels off of bed. Continue Lovenox for 2 to 4 weeks for DVT prophylaxis, discontinue after further discussion with Dr. Ogden Seen and evaluated by Dr. Ogden [facility] orthopedics She is to follow-up with orthopedics on 05/14 Continue Tylenol 3 for pain control, patient has adverse reaction to other narcotics but tends to tolerate this well continue daily vit D, current vit D level 63 I do not see any prior hx of Dexa scan, pt unaware, will need dexa as OP after healed Possible UTI versus pneumonitis Patient had elevated temperature 37.9 last night UA and chest x-ray ordered by occupational nurse CXR-showing possible atelectasis versus pneumonia, emphysema with chronic changes, as below IMPRESSION: 1. Mild left basilar opacities suggest atelectasis versus pneumonia. 2. Emphysema with chronic fibrotic changes. 3. Cardiomegaly. Patient is a former smoker, and reports chronic cough Start Mucinex, flutter valve UA shows bacteria, urine culture still pending Patient is allergic to penicillins, previously on Bactrim and reportedly did not do well with that We will start Levaquin and will continue to follow urine culture Hypertension Continue metoprolol History of cirrhosis Compensated History of C. difficile Vancomycin as needed when on antibiotics Schizophrenia Bipolar disorder Depression Mood stable, currently not on antipsychotic DVT prophylaxis: Lovenox Dispo: Medical, PT OT consulted, plan for [facility] Full code PCP: Ishmael Ortiz Admission and Anticipated Discharge Date Admission Date: May 05, 2022 Subjective Patient seen in follow-up of left tibial and fibular fracture Seen by orthopedics, Dr. Ogden Currently sitting up in bed, in no acute distress Denies fevers, chills, chest pain, shortness of breath, abdominal pain, nausea vomiting Left lower extremity in a splint Plan to discharge to [facility] Overnight however she had temperature 37.9 C. Event Designer ordered chest x-ray and UA. Per patient's , patient was having low-grade fever at home as well and was started on Bactrim however she did not tolerate the medication. Review of Systems Review of Systems: All systems reviewed & are unremarkable except as noted in Subjective Physical Exam Physical Exam: Constitutional: WD/WN, in NAD, sitting up in bed, pleasant, conversing easily Head: Normocephalic, Atraumatic Eyes: PERRL, EOMI, conjunctivae normal, anicteric sclerae ENMT: external ear and nose normal, [place], + hearing aids in place, oropharynx normal Neck: normal visual inspection Respiratory: normal respiratory effort, lungs clear to auscultation, no wheeze, rales, rhonchi. Cardiovascular: RRR, no murmur, RLE nodular lymphedema with venous stasis changes noted, LLE with splint in place Chest: normal inspection of chest Abdomen: normal bowel sounds, soft, nontender Musculoskeletal: AROM x 3, LLE in posterior splint, NVI distally Skin: warm and dry Neurologic: PERRL, EOMI, no face palsy, no dysarthria, moves all extremities Psychiatric: A+Ox3, euthymic affect Results & Data Results & Data ([facility]) Vital Signs (Past 12 Hours) Vital Signs Temp Pulse Resp BP Pulse Ox 05/07/22 08:24 36.7 C 69 16 128/66 91 Laboratory Results 05/07/22 05/07/22 05/07/22 Range/Units 11:10 08:09 08:09 WBC 5.12 (4.8-10.8) K/uL RBC 3.42 L (4.2-5.4) M/uL Hgb 11.1 L (12.0-16.0) g/dL Hct 32.0 L (37-47) % MCV 93.6 (80-100) fL MCH 32.5 (25-34) pg MCHC 34.7 (32-36) g/dL RDW Std Deviation 51.4 H (36.4-46.3) fL RDW Coeff of Dewayne 15.1 H (11.5-14.5) % Plt Count 85 L (130-400) K/uL MPV 11.5 H (7.4-10.4) fL Sodium 133 L (136-145) mmol/L Potassium 3.9 (3.5-5.1) mmol/L Chloride 104 (98-107) mmol/L Carbon Dioxide 25 (21-32) mmol/L Anion Gap 4 (3-11) BUN 10 (6-23) mg/dl Creatinine 0.48 L (0.6-1.2) mg/dl Est Cr Clr Drug Dosing 130.6 ml/min Est GFR ( Amer) 121.8 ml/min Est GFR (Non-Af Amer) 105.1 ml/min BUN/Creatinine Ratio 20.8 H (10-20) Glucose 126 H (70-99(Fasting)) mg/dl Calcium 8.7 (8.5-10.1) mg/dl Magnesium 1.6 L (1.7-2.4) mg/dl Urine Color Yellow Urine Appearance Cloudy A (Clear) Urine pH 6.0 (4.5-7.5) Ur Specific [place] 1.009 (1.000-1.030) Urine Protein Negative (Negative) Urine Glucose (UA) Negative (Negative) Urine Ketones Negative (Negative) Urine Blood 1+ H (Negative) Urine Nitrite Negative (Negative) Urine Bilirubin Negative (Negative) Urine Urobilinogen Negative (Negative) Ur Leukocyte Esterase 2+ H (Negative) Urine WBC (Auto) >30 H (0-5) /hpf Urine RBC (Auto) 0-4 (0-4) /hpf U Hyaline Cast (Auto) 1-5 (0-5) /lpf U Epithel Cells (Auto) 0-5 (0-5) /lpf Urine Bacteria (Auto) 4+ H (Negative) Medications Administered Current Inpatient Medications Acetaminophen (Acetaminophen 325 Mg Tab) 650 mg PO Q4H PRN PRN Reason: pain/fever Stop: 06/04/22 18:37 Acetaminophen/Codeine Phosphate (Acetaminophen W/Codeine #3 1 Tab) 2 tab PO Q6H MARIA E Stop: 06/04/22 18:37 Last Admin: 05/07/22 12:16 Dose: 2 tab Documented by: Al Hydrox/Mg Hydrox/Simethicone (Aluminum/Magnesium Susp 30 Ml Udc) 30 ml PO Q6H PRN PRN Reason: Dyspepsia Stop: 06/04/22 18:37 Amphetamine/Dextroamphetamine (Amphetamine Asp/Sulf/Dextramph 10 Mg Tab) 10 mg PO BID@0700,1400 MARIA E Stop: 05/20/22 06:59 Last Admin: 05/07/22 06:11 Dose: 10 mg Documented by: Enoxaparin Sodium (Enoxaparin Inj 40 Mg/0.4 Ml Syr) 40 mg SQ HS [facility] Stop: 06/04/22 20:59 Last Admin: 05/06/22 20:32 Dose: 40 mg Documented by: Guaifenesin (Guaifenesin Sugar Free 200 Mg/10 Ml Udc) 200 mg PO Q6H PRN PRN Reason: Cough Stop: 06/05/22 23:12 Guaifenesin (Guaifenesin 600 Mg Tabcr) 600 mg PO Q12 [facility] Stop: 06/06/22 20:59 Magnesium Sulfate/Dextrose (Magnesium Sulfate / D5w) 1 gm in 100 mls @ 50 mls/hr IV ONE ONE Stop: 05/07/22 15:59 Levofloxacin (Levofloxacin 750 Mg Tab) 750 mg PO QAM [facility] Stop: 05/09/22 12:43 Magnesium Hydroxide (Magnesium Hydroxide Susp 30 Ml Udc) 30 ml PO Q6H PRN PRN Reason: Constipation Stop: 06/04/22 18:37 Magnesium Oxide (Magnesium Oxide 400 Mg Tab) 400 mg PO BID [facility] Stop: 06/06/22 20:59 Metoprolol Tartrate (Metoprolol Tartrate 100 Mg Tab) 100 mg PO BID MARIA E Stop: 06/04/22 20:59 Last Admin: 05/07/22 08:50 Dose: 100 mg Documented by: Multivitamins/Minerals (Cerovite Adv Formula Tab) 1 tab PO DAILY MARIA E Stop: 06/05/22 08:59 Last Admin: 05/07/22 08:51 Dose: 1 tab Documented by: Ondansetron HCl (Ondansetron Inj 2 Mg/Ml 2 Ml Vial) 4 mg IV Q6H PRN PRN Reason: Nausea Stop: 06/04/22 18:37 Polyethylene Glycol (Polyethylene (Miralax) 17 Gm Pack) 17 gm PO DAILY PRN PRN Reason: Constipation Stop: 06/04/22 18:37 Potassium Chloride (Potassium Chloride 10 Meq Tabcr) 10 meq PO BID [facility] Stop: 06/04/22 20:59 Last Admin: 05/07/22 08:51 Dose: 10 meq Documented by: Sennosides (Senna 8.6 Mg Tab) 8.6 mg PO QAM [facility] Stop: 06/05/22 11:59 Last Admin: 05/07/22 08:51 Dose: 8.6 mg Documented by: Vitamin D (Cholecalciferol 5,000 Units 125 Mcg Tab) 5,000 units PO QAM [facility] Stop: 06/05/22 08:59 Last Admin: 05/07/22 08:51 Dose: 5,000 units Documented by: (1) Fracture of proximal end of left tibia and fibula Encounter type: initial encounter Fracture type: closed Qualified Code(s): S82.102A - Unspecified fracture of upper end of left tibia, initial encounter for closed fracture; S82.832A - Other fracture of upper and lower end of left fibula, initial encounter for closed fracture
[2022-05-07] MEDS: levoFLOXacin 750 MG TAB PO SCH (14:13)
[2022-05-07] MEDS: guaiFENesin 600 MG TABCR PO SCH (21:02)
[2022-05-07] MEDS: ENOXAPARIN INJ 40 MG/0.4 ML SYR SQ SCH (21:02)
[2022-05-08] MEDS: ACETAMINOPHEN W/CODEINE #3 1 TAB PO SCH ×4 (05:42→23:34)
[2022-05-08] MEDS: AMPHETAMINE ASP/SULF/DEXTRAMPH 10 MG TAB PO SCH ×2 (06:06→14:14)
[2022-05-08 06:36] LABS: Hematocrit (blood only) 33.7 % (37-47); Hemoglobin 11.5 g/dL (12.0-16.0); Mean Corpuscular Hemoglobin 31.9 pg (25-34); Mean Corpuscular Hgb Conc 34.1 g/dL (32-36); Mean Corpuscular Volume 93.6 fL (80-100); RDW Coefficient of Variation 15.4 % (11.5-14.5); RDW Standard Deviation 52.4 fL (36.4-46.3); White Blood Count 5.61 K/uL (4.8-10.8)
[2022-05-08 06:58] LABS: Mean Platelet Volume 11.4 fL (7.4-10.4); Platelet Count 95 K/uL (130-400)
[2022-05-08 06:59] LABS: BUN Creatinine Ratio 29.6 (10-20); Calcium 8.5 mg/dl (8.5-10.1); Creatinine Clr Calc Pharmacy 116.1 ml/min; Est GFR (African American) 117.2 ml/min; Est GFR (Non-African American) 101.1 ml/min; Magnesium 1.9 mg/dl (1.7-2.4); Phosphorus 3.4 mg/dl (2.5-4.9); Potassium 4.2 mmol/L (3.5-5.1)
--- NOTE | 2022-05-08 07:30 | Hospitalist Progress Note ---
Date of Service May 08, 2022 Assessment & Plan (1) Status post fall: (2) Fracture of proximal end of left tibia and fibula: (3) Ambulatory dysfunction: Plan: This is a 62 yr old F who has a significant PMH of schizophrenia, bipolar disorder, depression, emphysema, cirrhosis, vitamin D deficiency, hard of hearing who presents to ED after sustaining a fall [address]: 1. Comminuted fracture of the proximal tibial metadiaphysis with extension to the joint margin posteriorly is again seen. 2. This also evidence for an impacted fracture of the neck of the fibula which was not reported on the previous study. S/P Mechanical Fall Fracture of the proximal end of left tibia and fibula Ambulatory dysfunction Nonweightbearing to left lower extremity x8 weeks Posterior splint in place Elevate, ice PT/OT ordered Plan for [facility] rehab [facility] Use walker to assist with ambulation and transfers. Wheelchair. Keep heels off of bed. Continue Lovenox for 2 to 4 weeks for DVT prophylaxis, discontinue after further discussion with Dr. Ogden Seen and evaluated by Dr. Ogden [facility] orthopedics She is to follow-up with orthopedics on 05/14 Continue Tylenol 3 for pain control, patient has adverse reaction to other narcotics but tends to tolerate this well continue daily vit D, current vit D level 63 I do not see any prior hx of Dexa scan, pt unaware, will need dexa as OP after healed Possible UTI versus pneumonitis Patient had elevated temperature 37.9 last night UA and chest x-ray ordered by splunk dashboard developer CXR-showing possible atelectasis versus pneumonia, emphysema with chronic changes, as below IMPRESSION: 1. Mild left basilar opacities suggest atelectasis versus pneumonia. 2. Emphysema with chronic fibrotic changes. 3. Cardiomegaly. Patient is a former smoker, and reports chronic cough Start Mucinex, flutter valve UA shows bacteria, urine culture positive for gram-negative bacilli Patient is allergic to penicillins, previously on Bactrim and reportedly did not do well with that Started Levaquin and will continue to follow urine culture and sensitivities Hypertension Continue metoprolol History of cirrhosis Compensated History of C. difficile Vancomycin as needed when on antibiotics Schizophrenia Bipolar disorder Depression Mood stable, currently not on antipsychotic DVT prophylaxis: Lovenox Dispo: Medical, PT OT consulted, plan for [facility] Full code PCP: Ishmael Ortiz Admission and Anticipated Discharge Date Admission Date: May 05, 2022 Subjective Patient seen in follow-up of left tibial and fibular fracture Seen by orthopedics, Dr. Ogden Currently sitting up in bed, in no acute distress Denies fevers, chills, chest pain, shortness of breath, abdominal pain, nausea vomiting Left lower extremity in a splint Plan to discharge to [facility] she had temperature 37.9 C. Public Works Manager ordered chest x-ray and UA. Per patient's , patient was having low-grade fever at home as well and was started on Bactrim however she did not tolerate the medication. Started on Levaquin empirically, afebrile now. Urine culture pending. Review of Systems Review of Systems: All systems reviewed & are unremarkable except as noted in Subjective Physical Exam Physical Exam: Constitutional: WD/WN, in NAD, sitting up in bed, pleasant, conversing easily Head: Normocephalic, Atraumatic Eyes: PERRL, EOMI, conjunctivae normal, anicteric sclerae ENMT: external ear and nose normal, [place], + hearing aids in place, oropharynx normal Neck: normal visual inspection Respiratory: normal respiratory effort, lungs clear to auscultation, no wheeze, rales, rhonchi. Cardiovascular: RRR, no murmur, RLE nodular lymphedema with venous stasis changes noted, LLE with splint in place Chest: normal inspection of chest Abdomen: normal bowel sounds, soft, nontender Musculoskeletal: AROM x 3, LLE in posterior splint, NVI distally Skin: warm and dry Neurologic: PERRL, EOMI, no face palsy, no dysarthria, moves all extremities Psychiatric: A+Ox3, euthymic affect Results & Data Results & Data ([facility]) Vital Signs (Past 12 Hours) Vital Signs Temp Pulse Resp BP Pulse Ox 05/07/22 21:00 37.4 C 78 18 124/64 95 Laboratory Results 05/08/22 05/08/22 05/07/22 Range/Units 05:41 05:41 11:10 WBC 5.61 (4.8-10.8) K/uL RBC 3.60 L (4.2-5.4) M/uL Hgb 11.5 L (12.0-16.0) g/dL Hct 33.7 L (37-47) % MCV 93.6 (80-100) fL MCH 31.9 (25-34) pg MCHC 34.1 (32-36) g/dL RDW Std Deviation 52.4 H (36.4-46.3) fL RDW Coeff of Dewayne 15.4 H (11.5-14.5) % Plt Count 95 L (130-400) K/uL MPV 11.4 H (7.4-10.4) fL Sodium 135 L (136-145) mmol/L Potassium 4.2 (3.5-5.1) mmol/L Chloride 105 (98-107) mmol/L Carbon Dioxide 24 (21-32) mmol/L Anion Gap 6 (3-11) BUN 16 (6-23) mg/dl Creatinine 0.54 L (0.6-1.2) mg/dl Est Cr Clr Drug Dosing 116.1 ml/min Est GFR ( Amer) 117.2 ml/min Est GFR (Non-Af Amer) 101.1 ml/min BUN/Creatinine Ratio 29.6 H (10-20) Glucose 89 (70-99(Fasting)) mg/dl Calcium 8.5 (8.5-10.1) mg/dl Phosphorus 3.4 (2.5-4.9) mg/dl Magnesium 1.9 (1.7-2.4) mg/dl Urine Color Yellow Urine Appearance Cloudy A (Clear) Urine pH 6.0 (4.5-7.5) Ur Specific [place] 1.009 (1.000-1.030) Urine Protein Negative (Negative) Urine Glucose (UA) Negative (Negative) Urine Ketones Negative (Negative) Urine Blood 1+ H (Negative) Urine Nitrite Negative (Negative) Urine Bilirubin Negative (Negative) Urine Urobilinogen Negative (Negative) Ur Leukocyte Esterase 2+ H (Negative) Urine WBC (Auto) >30 H (0-5) /hpf Urine RBC (Auto) 0-4 (0-4) /hpf U Hyaline Cast (Auto) 1-5 (0-5) /lpf U Epithel Cells (Auto) 0-5 (0-5) /lpf Urine Bacteria (Auto) 4+ H (Negative) 05/07/22 05/07/22 Range/Units 08:09 08:09 WBC 5.12 (4.8-10.8) K/uL RBC 3.42 L (4.2-5.4) M/uL Hgb 11.1 L (12.0-16.0) g/dL Hct 32.0 L (37-47) % MCV 93.6 (80-100) fL MCH 32.5 (25-34) pg MCHC 34.7 (32-36) g/dL RDW Std Deviation 51.4 H (36.4-46.3) fL RDW Coeff of Dewayne 15.1 H (11.5-14.5) % Plt Count 85 L (130-400) K/uL MPV 11.5 H (7.4-10.4) fL Sodium 133 L (136-145) mmol/L Potassium 3.9 (3.5-5.1) mmol/L Chloride 104 (98-107) mmol/L Carbon Dioxide 25 (21-32) mmol/L Anion Gap 4 (3-11) BUN 10 (6-23) mg/dl Creatinine 0.48 L (0.6-1.2) mg/dl Est Cr Clr Drug Dosing 130.6 ml/min Est GFR ( Amer) 121.8 ml/min Est GFR (Non-Af Amer) 105.1 ml/min BUN/Creatinine Ratio 20.8 H (10-20) Glucose 126 H (70-99(Fasting)) mg/dl Calcium 8.7 (8.5-10.1) mg/dl Phosphorus (2.5-4.9) mg/dl Magnesium 1.6 L (1.7-2.4) mg/dl Urine Color Urine Appearance (Clear) Urine pH (4.5-7.5) Ur Specific [place] (1.000-1.030) Urine Protein (Negative) Urine Glucose (UA) (Negative) Urine Ketones (Negative) Urine Blood (Negative) Urine Nitrite (Negative) Urine Bilirubin (Negative) Urine Urobilinogen (Negative) Ur Leukocyte Esterase (Negative) Urine WBC (Auto) (0-5) /hpf Urine RBC (Auto) (0-4) /hpf U Hyaline Cast (Auto) (0-5) /lpf U Epithel Cells (Auto) (0-5) /lpf Urine Bacteria (Auto) (Negative) Medications Administered Current Inpatient Medications Acetaminophen (Acetaminophen 325 Mg Tab) 650 mg PO Q4H PRN PRN Reason: pain/fever Stop: 06/04/22 18:37 Acetaminophen/Codeine Phosphate (Acetaminophen W/Codeine #3 1 Tab) 2 tab PO Q6H MARIA E Stop: 06/04/22 18:37 Last Admin: 05/08/22 05:42 Dose: 2 tab Documented by: Al Hydrox/Mg Hydrox/Simethicone (Aluminum/Magnesium Susp 30 Ml Udc) 30 ml PO Q6H PRN PRN Reason: Dyspepsia Stop: 06/04/22 18:37 Amphetamine/Dextroamphetamine (Amphetamine Asp/Sulf/Dextramph 10 Mg Tab) 10 mg PO BID@0700,1400 [facility] Stop: 05/20/22 06:59 Last Admin: 05/08/22 06:06 Dose: 10 mg Documented by: Enoxaparin Sodium (Enoxaparin Inj 40 Mg/0.4 Ml Syr) 40 mg SQ HS MARIA E Stop: 06/04/22 20:59 Last Admin: 05/07/22 21:02 Dose: 40 mg Documented by: Guaifenesin (Guaifenesin Sugar Free 200 Mg/10 Ml Udc) 200 mg PO Q6H PRN PRN Reason: Cough Stop: 06/05/22 23:12 Guaifenesin (Guaifenesin 600 Mg Tabcr) 600 mg PO Q12 MARIA E Stop: 06/06/22 20:59 Last Admin: 05/07/22 21:02 Dose: 600 mg Documented by: Levofloxacin (Levofloxacin 750 Mg Tab) 750 mg PO QAM [facility] Stop: 05/09/22 12:43 Last Admin: 05/07/22 14:13 Dose: 750 mg Documented by: Magnesium Hydroxide (Magnesium Hydroxide Susp 30 Ml Udc) 30 ml PO Q6H PRN PRN Reason: Constipation Stop: 06/04/22 18:37 Magnesium Oxide (Magnesium Oxide 400 Mg Tab) 400 mg PO BID [facility] Stop: 06/06/22 20:59 Last Admin: 05/07/22 21:04 Dose: 400 mg Documented by: Metoprolol Tartrate (Metoprolol Tartrate 100 Mg Tab) 100 mg PO BID MARIA E Stop: 06/04/22 20:59 Last Admin: 05/07/22 21:04 Dose: 100 mg Documented by: Multivitamins/Minerals (Cerovite Adv Formula Tab) 1 tab PO DAILY [facility] Stop: 06/05/22 08:59 Last Admin: 05/07/22 08:51 Dose: 1 tab Documented by: Ondansetron HCl (Ondansetron Inj 2 Mg/Ml 2 Ml Vial) 4 mg IV Q6H PRN PRN Reason: Nausea Stop: 06/04/22 18:37 Polyethylene Glycol (Polyethylene (Miralax) 17 Gm Pack) 17 gm PO DAILY PRN PRN Reason: Constipation Stop: 06/04/22 18:37 Potassium Chloride (Potassium Chloride 10 Meq Tabcr) 10 meq PO BID [facility] Stop: 06/04/22 20:59 Last Admin: 05/07/22 21:03 Dose: 10 meq Documented by: Sennosides (Senna 8.6 Mg Tab) 8.6 mg PO QAM [facility] Stop: 06/05/22 11:59 Last Admin: 05/07/22 08:51 Dose: 8.6 mg Documented by: Vitamin D (Cholecalciferol 5,000 Units 125 Mcg Tab) 5,000 units PO QAM [facility]IA E Stop: 06/05/22 08:59 Last Admin: 05/07/22 08:51 Dose: 5,000 units Documented by: (1) Fracture of proximal end of left tibia and fibula Encounter type: initial encounter Fracture type: closed Qualified Code(s): S82.102A - Unspecified fracture of upper end of left tibia, initial encounter for closed fracture; S82.832A - Other fracture of upper and lower end of left fibula, initial encounter for closed fracture
[2022-05-08] MEDS: SENNA 8.6 MG TAB PO SCH (08:51)
[2022-05-08] MEDS: CHOLECALCIFEROL 5,000 UNITS 125 MCG TAB PO SCH (08:51)
[2022-05-08] MEDS: POTASSIUM CHLORIDE 10 MEQ TABCR PO SCH ×2 (08:51→20:07)
[2022-05-08] MEDS: guaiFENesin 600 MG TABCR PO SCH ×2 (08:51→20:06)
[2022-05-08] MEDS: METOPROLOL TARTRATE 100 MG TAB PO SCH ×2 (08:52→20:06)
[2022-05-08] MEDS: MAGNESIUM OXIDE 400 MG TAB PO SCH ×2 (08:52→20:06)
[2022-05-08] MEDS: levoFLOXacin 750 MG TAB PO SCH (08:52)
[2022-05-08] MEDS: CEROVITE ADV FORMULA TAB PO SCH (08:52)
[2022-05-08] MEDS: ADVANCED PROBIOTIC 1250 MG CAPSULE PO SCH (16:33)
[2022-05-08] MEDS: VANCOMYCIN HCL 125 MG/2.5ML SOLN PO SCH ×2 (17:44→23:34)
[2022-05-08] MEDS: RASPBERRY SYRUP 5 ML UDP PO SCH ×2 (17:44→23:34)
[2022-05-08] MEDS: ENOXAPARIN INJ 40 MG/0.4 ML SYR SQ SCH (20:05)
[2022-05-09] MEDS: AMPHETAMINE ASP/SULF/DEXTRAMPH 10 MG TAB PO SCH ×2 (06:02→14:21)
[2022-05-09] MEDS: RASPBERRY SYRUP 5 ML UDP PO SCH ×2 (06:02→11:53)
[2022-05-09] MEDS: ACETAMINOPHEN W/CODEINE #3 1 TAB PO SCH ×2 (06:02→11:53)
[2022-05-09] MEDS: VANCOMYCIN HCL 125 MG/2.5ML SOLN PO SCH ×2 (06:04→11:53)
[2022-05-09 07:03] LABS: Hematocrit (blood only) 32.4 % (37-47); Hemoglobin 11.1 g/dL (12.0-16.0); Mean Corpuscular Hemoglobin 31.9 pg (25-34); Mean Corpuscular Hgb Conc 34.3 g/dL (32-36); Mean Corpuscular Volume 93.1 fL (80-100); Platelet Count 99 K/uL (130-400); Red Blood Count 3.48 M/uL (4.2-5.4)
[2022-05-09 07:10] LABS: BUN Creatinine Ratio 36.4 (10-20); Calcium 8.6 mg/dl (8.5-10.1); Creatinine Clr Calc Pharmacy 142.5 ml/min; Est GFR (African American) 125.4 ml/min; Est GFR (Non-African American) 108.2 ml/min; Magnesium 1.9 mg/dl (1.7-2.4); Phosphorus 3.1 mg/dl (2.5-4.9)
--- NOTE | 2022-05-09 07:30 | Hospitalist Progress Note ---
Date of Service May 09, 2022 Assessment & Plan (1) Status post fall: (2) Fracture of proximal end of left tibia and fibula: (3) Ambulatory dysfunction: Plan: This is a 62 yr old F who has a significant PMH of schizophrenia, bipolar disorder, depression, emphysema, cirrhosis, vitamin D deficiency, hard of hearing who presents to ED after sustaining a fall [address]: 1. Comminuted fracture of the proximal tibial metadiaphysis with extension to the joint margin posteriorly is again seen. 2. This also evidence for an impacted fracture of the neck of the fibula which was not reported on the previous study. S/P Mechanical Fall Fracture of the proximal end of left tibia and fibula Ambulatory dysfunction Nonweightbearing to left lower extremity x8 weeks Posterior splint in place Elevate, ice PT/OT ordered Plan for [facility] rehab [facility] Use walker to assist with ambulation and transfers. Wheelchair. Keep heels off of bed. Continue Lovenox for 2 to 4 weeks for DVT prophylaxis, discontinue after further discussion with Dr. Ogden at your follow up Seen and evaluated by Dr. Ogden [facility] She is to follow-up with orthopedics on 05/14 Continue Tylenol 3 for pain control, patient has adverse reaction to other narcotics but tends to tolerate this well continue daily vit D, current vit D level 63 I do not see any prior hx of Dexa scan, pt unaware, will need dexa as OP after healed Possible UTI versus pneumonitis Patient had elevated temperature 37.9 UA and chest x-ray ordered by tobacco drier operator CXR-showing possible atelectasis versus pneumonia, emphysema with chronic changes, as below IMPRESSION: 1. Mild left basilar opacities suggest atelectasis versus pneumonia. 2. Emphysema with chronic fibrotic changes. 3. Cardiomegaly. Patient is a former smoker, and reports chronic cough Started Mucinex, flutter valve UA shows bacteria, urine culture positive for E.coli Patient is allergic to penicillins, previously on Bactrim and reportedly did not do well with that Started Levaquin - continue for total of 7 days (day # 3/7) Patient also has history C. difficile. P.o. vancomycin prophylactically. Continue probiotics. Hypertension Continue metoprolol History of cirrhosis Compensated History of C. difficile Vancomycin as needed when on antibiotics Schizophrenia Bipolar disorder Depression Mood stable, currently not on antipsychotic DVT prophylaxis: Lovenox Dispo: Medical, plan for [facility] Full code PCP: Ishmael Ortiz Admission and Anticipated Discharge Date Admission Date: May 08, 2022 Subjective Patient seen in follow-up of left tibial and fibular fracture Seen by orthopedics, Dr. Ogden Currently sitting up in bed, in no acute distress Denies fevers, chills, chest pain, shortness of breath, abdominal pain, nausea vomiting Left lower extremity in a splint Currently feeling well. Plan to discharge to [facility] Review of Systems Review of Systems: All systems reviewed & are unremarkable except as noted in Subjective Physical Exam Physical Exam: Constitutional: WD/WN, in NAD, sitting up in bed, pleasant, conversing easily Head: Normocephalic, Atraumatic Eyes: PERRL, EOMI, conjunctivae normal, anicteric sclerae ENMT: external ear and nose normal, [place], + hearing aids in place, oropharynx normal Neck: normal visual inspection Respiratory: normal respiratory effort, lungs clear to auscultation, no wheeze, rales, rhonchi. Cardiovascular: RRR, no murmur, venous stasis changes noted, LLE with splint in place Chest: normal inspection of chest Abdomen: normal bowel sounds, soft, nontender Musculoskeletal: AROM x 3, LLE in posterior splint, NVI distally Skin: warm and dry Neurologic: PERRL, EOMI, no face palsy, no dysarthria, moves all extremities Psychiatric: A+Ox3, euthymic affect Results & Data Results & Data ([facility]) Vital Signs (Past 12 Hours) Vital Signs Pulse BP Pulse Ox 05/08/22 20:03 65 115/58 L 97 Laboratory Results 05/09/22 05/09/22 05/09/22 Range/Units 06:30 06:30 06:30 WBC 5.40 (4.8-10.8) K/uL RBC 3.48 L (4.2-5.4) M/uL Hgb 11.1 L (12.0-16.0) g/dL Hct 32.4 L (37-47) % MCV 93.1 (80-100) fL MCH 31.9 (25-34) pg MCHC 34.3 (32-36) g/dL Plt Count 99 L (130-400) K/uL Sodium 136 (136-145) mmol/L Potassium 4.0 (3.5-5.1) mmol/L Chloride 106 (98-107) mmol/L Carbon Dioxide 24 (21-32) mmol/L Anion Gap 6 (3-11) BUN 16 (6-23) mg/dl Creatinine 0.44 L (0.6-1.2) mg/dl Est Cr Clr Drug Dosing 142.5 ml/min Est GFR ( Amer) 125.4 ml/min Est GFR (Non-Af Amer) 108.2 ml/min BUN/Creatinine Ratio 36.4 H (10-20) Glucose 102 H (70-99(Fasting)) mg/dl Calcium 8.6 (8.5-10.1) mg/dl Phosphorus 3.1 (2.5-4.9) mg/dl Magnesium 1.9 (1.7-2.4) mg/dl Procalcitonin Pending Medications Administered Current Inpatient Medications Acetaminophen (Acetaminophen 325 Mg Tab) 650 mg PO Q4H PRN PRN Reason: pain/fever Stop: 06/04/22 18:37 Acetaminophen/Codeine Phosphate (Acetaminophen W/Codeine #3 1 Tab) 2 tab PO Q6H MARIA E Stop: 06/04/22 18:37 Last Admin: 05/09/22 06:02 Dose: 2 tab Documented by: Al Hydrox/Mg Hydrox/Simethicone (Aluminum/Magnesium Susp 30 Ml Udc) 30 ml PO Q6H PRN PRN Reason: Dyspepsia Stop: 06/04/22 18:37 Amphetamine/Dextroamphetamine (Amphetamine Asp/Sulf/Dextramph 10 Mg Tab) 10 mg PO BID@0700,1400 MARIA E Stop: 05/20/22 06:59 Last Admin: 05/09/22 06:02 Dose: 10 mg Documented by: Enoxaparin Sodium (Enoxaparin Inj 40 Mg/0.4 Ml Syr) 40 mg SQ HS MARIA E Stop: 06/04/22 20:59 Last Admin: 05/08/22 20:05 Dose: 40 mg Documented by: Guaifenesin (Guaifenesin Sugar Free 200 Mg/10 Ml Udc) 200 mg PO Q6H PRN PRN Reason: Cough Stop: 06/05/22 23:12 Guaifenesin (Guaifenesin 600 Mg Tabcr) 600 mg PO Q12 MARIA E Stop: 06/06/22 20:59 Last Admin: 05/08/22 20:06 Dose: 600 mg Documented by: Lactobacillus Acidophilus (Advanced Probiotic 1250 Mg Capsule) 2 cap PO DAILY MARIA E Stop: 06/07/22 14:59 Last Admin: 05/08/22 16:33 Dose: 2 cap Documented by: Levofloxacin (Levofloxacin 750 Mg Tab) 750 mg PO QAM MARIA E Stop: 05/09/22 12:43 Last Admin: 05/08/22 08:52 Dose: 750 mg Documented by: Magnesium Hydroxide (Magnesium Hydroxide Susp 30 Ml Udc) 30 ml PO Q6H PRN PRN Reason: Constipation Stop: 06/04/22 18:37 Magnesium Oxide (Magnesium Oxide 400 Mg Tab) 400 mg PO BID MARIA E Stop: 06/06/22 20:59 Last Admin: 05/08/22 20:06 Dose: 400 mg Documented by: Metoprolol Tartrate (Metoprolol Tartrate 100 Mg Tab) 100 mg PO BID MARIA E Stop: 06/04/22 20:59 Last Admin: 05/08/22 20:06 Dose: 100 mg Documented by: Multivitamins/Minerals (Cerovite Adv Formula Tab) 1 tab PO DAILY MARIA E Stop: 06/05/22 08:59 Last Admin: 05/08/22 08:52 Dose: 1 tab Documented by: Ondansetron HCl (Ondansetron Inj 2 Mg/Ml 2 Ml Vial) 4 mg IV Q6H PRN PRN Reason: Nausea Stop: 06/04/22 18:37 Polyethylene Glycol (Polyethylene (Miralax) 17 Gm Pack) 17 gm PO DAILY PRN PRN Reason: Constipation Stop: 06/04/22 18:37 Potassium Chloride (Potassium Chloride 10 Meq Tabcr) 10 meq PO BID MARIA E Stop: 06/04/22 20:59 Last Admin: 05/08/22 20:07 Dose: 10 meq Documented by: Raspberry (Raspberry Syrup 5 Ml Udp) 5 ml PO Q6 MARIA E Stop: 05/18/22 17:59 Last Admin: 05/09/22 06:02 Dose: 5 ml Documented by: Sennosides (Senna 8.6 Mg Tab) 8.6 mg PO QAM MARIA E Stop: 06/05/22 11:59 Last Admin: 06/11/22 08:51 Dose: 8.6 mg Documented by: Vancomycin HCl (Vancomycin Hcl 125 Mg/2.5ml Soln) 125 mg PO Q6 MARIA E Stop: 05/18/22 17:59 Last Admin: 05/09/22 06:04 Dose: 125 mg Documented by: Vitamin D (Cholecalciferol 5,000 Units 125 Mcg Tab) 5,000 units PO QAM [facility] Stop: 06/05/22 08:59 Last Admin: 05/08/22 08:51 Dose: 5,000 units Documented by: (1) Fracture of proximal end of left tibia and fibula Encounter type: initial encounter Fracture type: closed Qualified Code(s): S82.102A - Unspecified fracture of upper end of left tibia, initial encounter for closed fracture; S82.832A - Other fracture of upper and lower end of left fibula, initial encounter for closed fracture
[2022-05-09] MEDS: MAGNESIUM OXIDE 400 MG TAB PO SCH (09:02)
[2022-05-09] MEDS: guaiFENesin 600 MG TABCR PO SCH (09:02)
[2022-05-09] MEDS: POTASSIUM CHLORIDE 10 MEQ TABCR PO SCH (09:03)
[2022-05-09] MEDS: CEROVITE ADV FORMULA TAB PO SCH (09:03)
[2022-05-09] MEDS: SENNA 8.6 MG TAB PO SCH (09:03)
[2022-05-09] MEDS: METOPROLOL TARTRATE 100 MG TAB PO SCH (09:03)
[2022-05-09] MEDS: ADVANCED PROBIOTIC 1250 MG CAPSULE PO SCH (09:03)
[2022-05-09] MEDS: levoFLOXacin 750 MG TAB PO SCH (09:03)
[2022-05-09] MEDS: CHOLECALCIFEROL 5,000 UNITS 125 MCG TAB PO SCH (09:03)
--- NOTE | 2022-05-09 11:45 | Discharge Summary ---
Date of Service May 09, 2022 Admission HPI Per Admitting Provider This is a 62 yr old F who has a significant PMH of schizophrenia, bipolar disorder, depression, emphysema, cirrhosis, vitamin D deficiency, hard of hearing who presents to ED after sustaining a fall 2 days ago. She was outside walking her dog whenever she tripped over a acid pumper that was on the ground. She denies loses consciousness, but when she fell she landed on her left leg, left hip and did hit the top of her left forehead. She does have a mild abrasion to the left forehead but otherwise denies any further injury. When she went down she was unable to get up and had to crawl over to her back steps. Eventually her came for help. She is unable to bear weight due to pain. The patient does have a prior history of left hip replacement as well as left hip fracture. She has no diagnosis of vitamin D deficiency and patient does take vitamin D daily, but patient is unaware if she is ever had a DEXA scan. She otherwise denies any recent illness and feels she is otherwise been in a fair state of health. She is very hard of hearing and wears aids. She denies any fever, chills, sweats, lightheadedness, dizziness, syncope, chest pain, shortness of breath, cough, nausea, vomiting, abdominal pain, change in her bowel or urinary habits. In ED patient was found to have a comminuted but nondisplaced left tibial fracture and fibula fracture. She was seen and evaluated by [facility] orthopedics in ED who recommends a long-leg posterior splint. She is to be nonweightbearing for 6 weeks. Plan is for [facility] pending authorization. Admission Exam Per Admitting Provider Constitutional: WD/WN, vitals as above, NAD, sitting up in bed, pleasant, conversing easily Head: Normocephalic, Atraumatic Eyes: PERRL, conjunctivae normal, anicteric sclerae ENMT: external ear and nose normal, [place], + hearing aids in place, oropharynx normal Neck: trachea midline, no thyromegaly normal visual inspection Respiratory: normal respiratory effort, lungs clear to auscultation, no wheeze, rales, rhonchi. Normal insp/exp effort, no accessory muscle use Cardiovascular: RRR, no murmur, RLE nodular lymphedema with venous stasis changes noted, LLE with splint in place, Vessels: no JVD or carotid bruit Chest: normal inspection of chest Abdomen: normal bowel sounds, soft, nontender, no hepatosplenomegaly Musculoskeletal: no cyanosis or clubbing, AROM x 3, LLE in posterior splint, NVI distally Skin: no rashes, warm and dry normal turgor Neurologic: PERRL, EOMI, accommodation nl, no face palsy, no dysarthria CN's II-XI intact bilaterally and moves all extremities Psychiatric: A+Ox3, euthymic affect : deferred Principal Diagnosis Left proximal tibial and fibular fracture Discharge Exam Constitutional: WD/WN, in NAD, sitting up in bed, pleasant, conversing easily Head: Normocephalic, Atraumatic Eyes: PERRL, EOMI, conjunctivae normal, anicteric sclerae ENMT: external ear and nose normal, [place], + hearing aids in place, oropharynx normal Neck: normal visual inspection Respiratory: normal respiratory effort, lungs clear to auscultation, no wheeze, rales, rhonchi. Cardiovascular: RRR, no murmur, venous stasis changes noted, LLE with splint in place Chest: normal inspection of chest Abdomen: normal bowel sounds, soft, nontender Musculoskeletal: AROM x 3, LLE in posterior splint, NVI distally Skin: warm and dry Neurologic: PERRL, EOMI, no face palsy, no dysarthria, moves all extremities Psychiatric: A+Ox3, euthymic affect Discharge Data Allergies Allergy/AdvReac Type Severity Reaction Status Date / Time Penicillins Allergy Severe ANAPHYLAXIS Verified 05/05/22 09:17 aspirin [From Percodan] Allergy Unknown Unknown Unverified 05/05/22 09:17 oxycodone [From Percodan] Allergy Unknown Unknown Unverified 05/05/22 09:17 ketorolac [From Toradol] AdvReac Severe Breathing Unverified 05/05/22 09:17 difficulty hydrocodone AdvReac Intermediate Nausea Unverified 05/05/22 09:17 [From Lorcet (hydrocodone)] rifaximin [From Xifaxan] AdvReac Intermediate Dizzy, Unverified 05/05/22 09:17 Fell down ursodiol AdvReac Intermediate Dizzy, Unverified 05/05/22 09:17 Fell down Consultations 05/05/22 14:13 ED Decision to Admit Stat 05/06/22 09:50 Consult Orthopedic Surgery Routine Ordered Studies 05/05/22 07:44 CT cervical spine wo con Stat IMPRESSION: No evidence of cervical fractures. Severe degenerative changes are seen about the neck. CT head/brain wo con Stat IMPRESSION: No acute intracranial abnormality or calvarial fracture. 05/05/22 08:26 CT knee LT wo con Stat IMPRESSION: 1. CT confirms the presence of a comminuted fracture of the proximal tibial metadiaphysis with extension into the articular margin posteriorly. The c omminuted fracture is otherwise nondisplaced. 2. There is a small intra-articular effusion. 05/05/22 10:48 CT tib/fib LT wo con Stat IMPRESSION: 1. Comminuted fracture of the proximal tibial metadiaphysis with extension to the joint margin posteriorly is again seen. 2. This also evidence for an impacted fracture of the neck of the fibula which was not reported on the previous study. 3. The distal tibia and fibula are intact. No other fractures are identified. 4. Diffuse subcutaneous edema involving the entire lower leg. Sonography Hospital Course (1) Status post fall: (2) Fracture of proximal end of left tibia and fibula: (3) Ambulatory dysfunction: This is a 62 yr old F who has a significant PMH of schizophrenia, bipolar disorder, depression, emphysema, cirrhosis, vitamin D deficiency, hard of hearing who presents to ED after sustaining a fall [address]: 1. Comminuted fracture of the proximal tibial metadiaphysis with extension to the joint margin posteriorly is again seen. 2. This also evidence for an impacted fracture of the neck of the fibula which was not reported on the previous study. S/P Mechanical Fall Fracture of the proximal end of left tibia and fibula Ambulatory dysfunction Nonweightbearing to left lower extremity x8 weeks Posterior splint in place Elevate, ice PT/OT ordered Plan for likely rehab / [facility] Use walker to assist with ambulation and transfers. Wheelchair. Keep heels off of bed. Continue Lovenox for 2 to 4 weeks for DVT prophylaxis, discontinue after further discussion with Dr. Ogden at your follow up Seen and evaluated by Dr. Ogden [facility] She is to follow-up with orthopedics on 05/14 Continue Tylenol 3 for pain control, patient has adverse reaction to other narcotics but tends to tolerate this well continue daily vit D, current vit D level 63 I do not see any prior hx of Dexa scan, pt unaware, will need dexa as OP after healed Possible UTI versus pneumonitis Patient had elevated temperature 37.9 UA and chest x-ray ordered by pre press manager CXR-showing possible atelectasis versus pneumonia, emphysema with chronic changes, as below IMPRESSION: 1. Mild left basilar opacities suggest atelectasis versus pneumonia. 2. Emphysema with chronic fibrotic changes. 3. Cardiomegaly. Patient is a former smoker, and reports chronic cough Started Mucinex, flutter valve UA shows bacteria, urine culture positive for E.coli Patient is allergic to penicillins, previously on Bactrim and reportedly did not do well with that Started Levaquin - continue for total of 7 days (day # 3/7) Patient also has history C. difficile. P.o. vancomycin prophylactically. Continue probiotics. Hypertension Continue metoprolol History of cirrhosis Compensated History of C. difficile Vancomycin as needed when on antibiotics Schizophrenia Bipolar disorder Depression Mood stable, currently not on antipsychotic DVT prophylaxis: Lovenox Dispo: Medical, plan for [facility] Full code PCP: Ishmael Otriz Total Time Total Time Spent Total Time Spent (In Minutes): 40 Discharge Plan Discharge Items Patient Disposition: Transfer Inpatient Rehab Fac Reason For Visit: FALL, R TIB FIB FX Discharge Diagnosis: left proximal tibial and fibular fracture Activity: Per Instructions section Weightbearing: Left non-weightbearing Weightbearing Comment: at all times; use walker to assist with ambulation Non-emergency contact: Surgeon Call non-emergency contact if: you have any medication questions and your symptoms worsen Follow-up/Referrals: Jersey Ortiz, [Primary Care Provider] - Elias Ogden MD [Surgeon] - 05/14/22 11:00 am Diet: Heart Healthy Addtl Attending Provider Instructions: Read below instructions from orthopedic surgeon, in detail. As stated below, you will need to be on blood thinner, Lovenox for 2 to 4 weeks. You are scheduled to follow-up with your orthopedic surgeon on May 14. Finish antibiotic treatment with Levaquin. Given history of C. difficile, take p.o. vancomycin and probiotics while on antibiotic. Recommend to also take Mucinex, and using flutter valve. Addtl Manager Analytical Provider Instructions: Non weight bearing left lower extremity at all times. this will be for 8 weeks. Keep splint on left leg at all times. keep heels off of bed ice to left knee as needed for pain/swelling. Use walker for transfers/use wheelchair. allowed for range of motion toes left foot Re-wrap SUSAN bandage as needed over splint. Lovenox 40 mg daily x 2-4 weeks. Do not discontinue until instructed by Dr. Ogden. CBC weekly on Mondays while on Lovenox. Follow up with Dr. Ogden in 7-10 days. Please call [phone] to confirm or reschedule appointment. Pending Studies at Discharge: No Stand-Alone Forms: My [facility] Skilled Items Patient informed of condition?: Yes DNR: No Discharge Level of Care: Acute rehab Communicable Disease: No Discharge Prognosis: Stable Lines: None Urinary Catheter: No Medications and DC Order Prescriptions: New levofloxacin 750 mg Tablet 750 mg PO QAM Qty: 4 RF: 0 enoxaparin [Lovenox] 40 mg/0.4 mL Syringe 40 mg subcut HS 14 Days Qty: 5.6 RF: 0 acetaminophen-codeine 300-30 mg Tablet 2 tab PO Q6H Qty: 20 RF: 0 guaifenesin [Mucinex] 600 mg Tablet Extended Release 12hr 600 mg PO Q12 Qty: 10 RF: 0 Continued dextroamphetamine-amphetamine 10 mg tablet 10 mg PO BID RF: 0 Centrum Silver Tablet 1 tab PO DAILY RF: 0 cholecalciferol (vitamin D3) [Vitamin D3] 125 mcg (5,000 unit) Tablet 125 mcg PO QAM RF: 0 Probiotic 100 billion cell Capsule 1 cap PO QAM RF: 0 metoprolol tartrate 100 mg tablet 100 mg PO BID RF: 0 vancomycin 125 mg capsule 125 mg PO DAILY PRN (Reason: antibiotic use) RF: 0 potassium chloride 10 mEq capsule, extended release 10 meq PO BID RF: 0 Discharge Orders: Discharge Order (Routine); Ordered 05/09/22 Ordered By: Ruy Chapman/Other Patient Handouts: Preventing Deep Vein Thrombosis Admission Data Admit Date/Time: 05/08/22 14:53 Attending Provider: Ruy Rai Admit Provider: Ruy Rai Primary Care Provider: Jersey Ortiz Other Providers: [facility] ; Elias Ogden ; Ruben Torres [facility] ; Christina Saravia Other Interventions: Discharge Summary Assessment (RN) Last Done: 05/08/22 11:06
== END 2022-05-09 16:12 ==
LOC: ED 07:30 → 3N 07:30 → SUATTDRO 14:18 → 3N 18:16

== ENCOUNTER 2022-06-25 13:54 | Inpatient (IN) ==
[2022-06-25 15:50] LABS: Hematocrit (blood only) 40.3 % (34.1-44.9); Hemoglobin 13.5 g/dl (12.0-16.0); White Blood Count 3.22 K/ul (4.8-10.8)
[2022-06-25 15:53] LABS: INR 1.2 (0.9-1.1); Partial Thromboplastin Ratio 1.1; Partial Thromboplastin Time 31.6 Seconds (21.0-31.0); Prothrombin Time 12.9 Seconds (9.0-12.0)
[2022-06-25 16:00] LABS: Alanine Aminotransferase 22 U/L (7-52); Albumin Globulin Ratio 1.2 (0.9-2); Alkaline Phosphatase 146 U/L (34-104); Anion Gap 9 (3-11); Aspartate Aminotransferase 33 U/L (13-39); BUN Creatinine Ratio 14.5 (10-20); Blood Urea Nitrogen 10 mg/dl (6-23); Calcium 10.1 mg/dl (8.5-10.1); Carbon Dioxide 24 mmol/L (21-32); Chloride 105 mmol/L (98-107); Est GFR (African American) 108.1 ml/min; Est GFR (Non-African American) 93.3 ml/min; Globulin 3.3 gm/dl (2.5-4.0); Glucose 106 mg/dl (70-99(Fasting)); Potassium 3.9 mmol/L (3.5-5.1); Sodium 138 mmol/L (136-145); Total Protein 7.3 gm/dl (6.0-8.3)
[2022-06-25 16:07] LABS: Acanthocytes 1+; Basophils # (auto) 0.03 K/uL (0-0.2); Basophils % (auto) 0.9 %; Eosinophils # (auto) 0.06 K/uL (0-0.50); Eosinophils % (auto) 1.9 %; Giant Platelets 1+; Immature Granulocytes # (auto) 0.01 K/uL (0.00-0.02); Immature Granulocytes % (auto) 0.3 %; Lymphocytes # (auto) 0.43 K/uL (1.2-3.4); Lymphocytes % (auto) 13.4 %; Mean Corpuscular Hemoglobin 32.1 pg (25.0-34.0); Mean Corpuscular Hgb Conc 33.5 g/dL (32.0-36.0); Mean Platelet Volume 12.4 fL (9.4-12.3); Monocytes # (auto) 0.13 K/uL (0.24-0.82); Neutrophils # (auto) 2.56 K/uL (1.4-6.5); Neutrophils % (auto) 79.5 %; Ovalocytes 2+; Platelet Count 65 K/uL (130-400); Platelet Estimate Decreased (Normal); RDW Coefficient of Variation 15.2 % (11.5-14.5); RDW Standard Deviation 52.8 fL (36.4-46.3); Tear Drop Cells 1+
[2022-06-25] MEDS ORDERED: METOPROLOL TARTRATE 100 MG TAB PO STA (19:46)
--- NOTE | 2022-06-25 19:47 | History & Physical Report ---
Date of Service June 25, 2022 Assessment & Plan (1) Ambulatory dysfunction: Plan: History traumatic left tibia fracture (04/2022) hypertension, slightly elevated COPD, patient currently without pulmonary complaints cirrhosis of unclear etiology, no overt decompensation ADD/mood disorder/schizophrenia, at baseline recurrent C. difficile on chronic vancomycin suppression Rx chronic anemia, hemoglobin better than baseline chronic thrombocytopenia secondary to cirrhosis past tobacco abuse OBS GMF Facilitate nighttime BP medications PT OT eval Social service re: rehab placement DVT prophylaxis. SCDs Re: Thrombocytopenia Full code Patient requesting updates for providers. Mr. Sidney Dorantes, contact #[phone]. Text document was generated using [employer] voice recognition software. It may contain grammatical or spelling errors. Kindly contact undersigned for clarification of any documentation item in question. History of Present Illness Chief Complaint: My wanted me to go to rehab Primary Care Provider: Jersey Ortiz, History obtained from patient, family, and records. History somewhat limited from patient secondary to hearing impairment. 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 Last confinement 6 weeks ago for traumatic left proximal tibiofibular fracture secondary to fall while walking patient's dog. Nonoperative management consisting of left leg splinting/immobilization recommended for 8 weeks by orthopedics. [facility] where she stayed for 2 weeks. Patient found it hard to take care of her patient since discharge to home last month. recovering from back surgery from 5 months ago. Patient weaker than usual more than she will admit as per patient .. Patient denies chest pain, SOB, abdominal pain, dysuria symptoms. Left leg pain tolerable. Patient brought to ER for possible rehab placement. 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 Allergies Allergy/AdvReac Type Severity Reaction Status Date / Time Penicillins Allergy Severe ANAPHYLAXIS Verified 06/25/22 18:37 oxycodone [From Percodan] Allergy Unknown Unknown Verified 06/25/22 18:37 ketorolac [From Toradol] AdvReac Severe Breathing Verified 06/25/22 18:37 difficulty hydrocodone AdvReac Intermediate Nausea Verified 06/25/22 18:37 [From Lorcet (hydrocodone)] rifaximin [From Xifaxan] AdvReac Intermediate Dizzy, Verified 06/25/22 18:37 Fell down ursodiol AdvReac Intermediate Dizzy, Verified 06/25/22 18:37 Fell down Home Medications Medication Instructions Recorded Confirmed Type Lactobacillus 40-Bifidobact 1 cap PO QAM 05/05/22 06/25/22 History 3-S.thermophilus 100 billion cell capsule (Probiotic) cholecalciferol (vitamin D3) 125 125 mcg PO QAM 05/05/22 06/25/22 History mcg (5,000 unit) tablet (Vitamin D3) dextroamphetamine-amphetamine 10 10 mg PO BID 05/05/22 06/25/22 History mg tablet metoprolol tartrate 100 mg tablet 100 mg PO BID 05/05/22 06/25/22 History qqwnlqhboetj-klzmxddq-ayusej tablet 1 tab PO DAILY 05/05/22 06/25/22 History potassium chloride 10 mEq 10 meq PO BID 05/05/22 06/25/22 History capsule,extended release aspirin 325 mg tablet,delayed 325 mg PO DAILY PRN pain 06/24/22 06/25/22 History release vancomycin 125 mg capsule 125 mg PO DAILY 06/24/22 06/25/22 History acetaminophen 300 mg-codeine 30 mg 2 tab PO .Q4-6H PRN Pain 06/25/22 06/25/22 History tablet furosemide 20 mg tablet 20 mg PO DAILY 06/25/22 06/25/22 History Past Med/Surg History Medical History Bipolar disorder Cirrhosis Depression Emphysema of lung Based on imaging History of CVA (cerebrovascular accident) Osteoporosis Pulmonary nodule 9 mm RML subsolid nodule CT chest 02/29/20. F/U CT recommended 3-6 months Schizophrenia Vitamin D deficiency Surgical History History of appendectomy History of shoulder surgery History of total hip replacement femur fracture one month later with repair, both in 2007 Status post open reduction and internal fixation (ORIF) of fracture Family History Father Myocardial infarction Mother Colorectal cancer Social History Smoking Status: Former smoker Tobacco Type: Cigarettes Cigarettes Per Day: 18; Second Hand Exposure: No; Do You Dip or Chew Tobacco: No; Hx Alcohol Use: No Hx Substance Use: No Preferred Language: Estonian Communication Ability: Effective Computer Lab 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 Required: No Beliefs That Will Affect Care: None marital status: Current Living Situation: Spouse Current Living Situation Comment: Lives with Other Information That Helps Us Care for You: No Feels Safe at Home: Yes Safety Concerns: Feels Safe At This Time Assistive Devices: Denture - Upper, Denture - Lower, Glasses, Hearing Aid - Bilateral and Walker Review of Systems 2 Review of Systems: As per HPI, all other systems reviewed and negative Physical Exam Physical Exam: GENERAL: Comfortable, hard of hearing, no respiratory distress SKIN: Pallor, warm HEENT: Pale palpebral conjunctivae, no ptosis, dry buccal mucosa NECK : Supple, no tenderness CHEST : Decreased breath sounds, no tenderness HEART : Tachycardic, no obvious murmurs ABDOMEN: Some distention, nontender EXTREMITIES : LLE splint, minimal LLE tenderness no other conspicuous deformities noted NEUROLOGIC : Coherent, no facial asymmetry, hard of hearing, gait and stance not assessed Results & Data Results & Data ([facility]) Vital Signs (Past 12 Hours) Vital Signs Temp Pulse Pulse Resp BP BP Pulse Ox 06/25/22 18:04 111 H 20 142/67 H 98 06/25/22 14:01 36.8 C 97 H 18 123/67 97 O2 Del Method 06/25/22 18:04 Room Air 06/25/22 14:01 Room Air Laboratory Results Laboratory Results WBC 3.22 K/ul (4.8-10.8) L 06/25/22 15:25 RBC 4.20 M/uL (3.93-5.22) 06/25/22 15:25 Hgb 13.5 g/dl (12.0-16.0) 06/25/22 15:25 Hct 40.3 % (34.1-44.9) 06/25/22 15:25 MCV 96.0 fL (80.0-100.0) 06/25/22 15:25 MCH 32.1 pg (25.0-34.0) 06/25/22 15:25 MCHC 33.5 g/dL (32.0-36.0) 06/25/22 15:25 RDW Std Deviation 52.8 fL (36.4-46.3) H 06/25/22 15:25 RDW Coeff of Dewayne 15.2 % (11.5-14.5) H 06/25/22 15:25 Plt Count 65 K/uL (130-400) L 06/25/22 15:25 MPV 12.4 fL (9.4-12.3) H 06/25/22 15:25 Immature Gran % (Auto) 0.3 % 06/25/22 15:25 Neut % (Auto) 79.5 % 06/25/22 15:25 Lymph % (Auto) 13.4 % 06/25/22 15:25 [place] % (Auto) 4.0 % 06/25/22 15:25 Eos % (Auto) 1.9 % 06/25/22 15:25 Baso % (Auto) 0.9 % 06/25/22 15:25 Neut # (Auto) 2.56 K/uL (1.4-6.5) 06/25/22 15:25 Lymph # (Auto) 0.43 K/uL (1.2-3.4) L 06/25/22 15:25 [place] # (Auto) 0.13 K/uL (0.24-0.82) L 06/25/22 15:25 Eos # (Auto) 0.06 K/uL (0-0.50) 06/25/22 15:25 Baso # (Auto) 0.03 K/uL (0-0.2) 06/25/22 15:25 Immature Gran # (Auto) 0.01 K/uL (0.00-0.02) 06/25/22 15:25 Platelet Estimate Decreased (Normal) L 06/25/22 15:25 Giant Platelets 1+ 06/25/22 15:25 Tear Drop Cells 1+ 06/25/22 15:25 Ovalocytes 2+ 06/25/22 15:25 Acanthocytes (Spur) 1+ 06/25/22 15:25 PT 12.9 Seconds (9.0-12.0) H 06/25/22 15:25 INR 1.2 (0.9-1.1) H 06/25/22 15:25 APTT 31.6 Seconds (21.0-31.0) H 06/25/22 15:25 PTT Ratio 1.1 06/25/22 15:25 Sodium 138 mmol/L (136-145) 06/25/22 15:25 Potassium 3.9 mmol/L (3.5-5.1) 06/25/22 15:25 Chloride 105 mmol/L (98-107) 06/25/22 15:25 Carbon Dioxide 24 mmol/L (21-32) 06/25/22 15:25 Anion Gap 9 (3-11) 06/25/22 15:25 BUN 10 mg/dl (6-23) 06/25/22 15:25 Creatinine 0.69 mg/dl (0.6-1.2) 06/25/22 15:25 Est Cr Clr Drug Dosing Not Reportable 06/25/22 15:25 Est GFR ( Amer) 108.1 ml/min 06/25/22 15:25 Est GFR (Non-Af Amer) 93.3 ml/min 06/25/22 15:25 BUN/Creatinine Ratio 14.5 (10-20) 06/25/22 15:25 Glucose 106 mg/dl (70-99(Fasting)) H 06/25/22 15:25 Calcium 10.1 mg/dl (8.5-10.1) 06/25/22 15:25 Magnesium 1.7 mg/dl (1.7-2.4) 06/25/22 15:25 Total Bilirubin 1.0 mg/dl (0.2-1.0) 06/25/22 15:25 AST 33 U/L (13-39) 06/25/22 15:25 ALT 22 U/L (7-52) 06/25/22 15:25 Alkaline Phosphatase 146 U/L (34-104) H 06/25/22 15:25 Total Protein 7.3 gm/dl (6.0-8.3) 06/25/22 15:25 Albumin 4.0 gm/dl (3.4-5.0) 06/25/22 15:25 Globulin 3.3 gm/dl (2.5-4.0) 06/25/22 15:25 Albumin/Globulin Ratio 1.2 (0.9-2) 06/25/22 15:25 SARS-CoV-2, RNA, NAAT NEGATIVE (NEGATIVE) 06/25/22 18:33
[2022-06-25] MEDS ORDERED: LACTATED RINGER'S 1,000 ML IV ONE (19:50)
--- NOTE | 2022-06-25 20:11 | Emergency Department Note ---
Impression & Plan Failure of outpatient treatment, Fracture of proximal end of left tibia and fibula, Ambulatory dysfunction, Weakness ED Provider Note NAME: HI BERNARD AGE: 62 SEX: F ARRIVES VIA: Ambulance INFORMANT: Patient ED PROVIDER(S): Esdras Alegre MD CHIEF COMPLAINT: Weakness, PT/OT placement, referred. PLAN: Disposition: Admit MEDICAL DECISION MAKING: The patient is a pleasant 62-year-old woman with a past medical history of schizophrenia, bipolar disorder, depression, cirrhosis, emphysema, vitamin D deficiency, significant hearing impairment who presents to the emergency department accompanied by her referred by their home nursing agency to come for admission and placement into acute rehab with concerns for increased weakness and concern for her ability to safely manage at home. The patient presents in the setting of recent admission to this facility from 05/08-04/2012 where she suffered a proximal left tib-fib fracture that was managed conservatively with nonweightbearing for 8 weeks with posterior splint in place, discharged to [facility] where she had been until discharged on 05/26. Since then she has had home nursing agency come once a week. However it seems that the patient's ability to make transfers has regressed and the patient's home nurse today was concerned that she could not function safely at home in this state. They report they had made attempts to place the patient into rehab yet outpatient but were unsuccessful. Otherwise, the patient denies any fevers, cough, congestion, GI or symptoms. She denies any new falls. She follows with the wound center for an unstageable ulcer with overlying eschar on her heel and was seen yesterday and had a stable evaluation. On arrival the patient is in no acute distress, afebrile with heart rate in the 100s setting of restlessness due to prolonged emergency department weight and otherwise stable vital signs. WBC 3.2K nonspecific and similar to prior range of values. H/H within normal limits. Platelets 65K similar to prior values in the setting of chronic thrombocytopenia. Chemistry without metabolic acidosis. Electrolytes and LFTs without significant abnormality. TSH within normal limits. Covid-19 RNA, NAAT negative. Case was discussed with Natalie Hoffman, Jovani PAC, with Dr. Rachna Hahn hospitalist who will evaluate the patient for admission. Triage Nursing notes reviewed and agree them. Prior medical records reviewed Vital Signs: reviewed and remarkable for no significant abnormalities Differential diagnosis: Infection, dehydration, metabolic abnormality, hypo/hyperglycemia, electrolyte disturbance, anemia, hypoxia, cardiac sources, intracerebral event, toxicologic, neurologic, as well as other pathologies. ER treatment provided: See below. Laboratory studies: See below Consultation(s): Natalie Hoffman, Jovani PAC, with Dr. Rachna Hahn hospitalist HPI: The patient is a pleasant 62-year-old woman with a past medical history of schizophrenia, bipolar disorder, depression, cirrhosis, emphysema, vitamin D deficiency, significant hearing impairment who presents to the emergency department accompanied by her referred by their home nursing agency to come for admission and placement into acute rehab with concerns for increased weakness and concern for her ability to safely manage at home. The patient presents in the setting of recent admission to this facility from 05/08-04/2012 where she suffered a proximal left tib-fib fracture that was managed conservatively with nonweightbearing for 8 weeks with posterior splint in place, discharged to [facility] where she had been until discharged on 05/26. Since then she has had home nursing agency come once a week. However it seems that the patient's ability to make transfers has regressed and the patient's home nurse today was concerned that she could not function safely at home in this state. They report they had made attempts to place the patient into rehab yet outpatient but were unsuccessful. Otherwise, the patient denies any fevers, cough, congestion, GI or symptoms. She denies any new falls. She follows with the wound center for an unstageable ulcer with overlying eschar on her heel and was seen yesterday and had a stable evaluation. ROS: See above HPI for pertinent positives & negatives. A total of 10 systems reviewed and were otherwise negative. VITALS:See Below PHYSICAL EXAMINATION: GENERAL: Awake, alert, chronically ill-appearing, in no distress HENT: Normocephalic, atraumatic. Oropharynx with dry mucous membranes and otherwise unremarkable. EYES: Normal conjunctiva. Sclera non-icteric. NECK: Supple. No nuchal rigidity. FROM. No JVD. RESPIRATORY: Clear to auscultation. CARDIAC: Regular rate, normal rhythm. Extremities warm and well perfused. Pulses equal. ABDOMEN: Soft, non-distended. No tenderness to palpation. No rebound or guarding. No masses. RECTAL: Deferred. MUSCULOSKELETAL: Chest examination reveals no tenderness. The back is symmetrical on inspection without obvious abnormality. There is no CVA tenderness to palpation. No joint edema. LOWER EXTREMITIES: LLE in splint/wrap. Splint removal deferred given evaluated with photos yesterday. NEURO: Normal sensorium. No sensory or motor deficits noted. SKIN: No rash or jaundice noted. Esdras Alegre MD Past Med/Surg History Medical History Bipolar disorder Cirrhosis Depression Emphysema of lung Based on imaging History of CVA (cerebrovascular accident) Osteoporosis Pulmonary nodule 9 mm RML subsolid nodule CT chest 02/29/20. F/U CT recommended 3-6 months Schizophrenia Vitamin D deficiency Surgical History History of appendectomy History of shoulder surgery History of total hip replacement femur fracture one month later with repair, both in 2007 Status post open reduction and internal fixation (ORIF) of fracture Family History Father Myocardial infarction Mother Colorectal cancer Social History Smoking Status: Former smoker Tobacco Type: Cigarettes Cigarettes Per Day: 18; Second Hand Exposure: No; Do You Dip or Chew Tobacco: No; Hx Alcohol Use: No Hx Substance Use: No Preferred Language: Zambian Communication Ability: Effective Juice Tester Required: No Beliefs That Will Affect Care: None marital status: Current Living Situation: Spouse Current Living Situation Comment: Lives with Other Information That Helps Us Care for You: No Feels Safe at Home: Yes Safety Concerns: Feels Safe At This Time Assistive Devices: Denture - Upper, Denture - Lower, Glasses, Hearing Aid - Bilateral and Walker Allergies Allergies Allergy/AdvReac Type Severity Reaction Status Date / Time Penicillins Allergy Severe ANAPHYLAXIS Verified 06/25/22 18:37 oxycodone [From Percodan] Allergy Unknown Unknown Verified 06/25/22 18:37 ketorolac [From Toradol] AdvReac Severe Breathing Verified 06/25/22 18:37 difficulty hydrocodone AdvReac Intermediate Nausea Verified 06/25/22 18:37 [From Lorcet (hydrocodone)] rifaximin [From Xifaxan] AdvReac Intermediate Dizzy, Verified 06/25/22 18:37 Fell down ursodiol AdvReac Intermediate Dizzy, Verified 06/25/22 18:37 Fell down Home Meds Home Medications Medication Instructions Recorded Confirmed Lactobacillus 40-Bifidobact 1 cap PO QAM 05/05/22 06/25/22 3-S.thermophilus 100 billion cell capsule (Probiotic) cholecalciferol (vitamin D3) 125 125 mcg PO QAM 05/05/22 06/25/22 mcg (5,000 unit) tablet (Vitamin D3) dextroamphetamine-amphetamine 10 10 mg PO BID 05/05/22 06/25/22 mg tablet metoprolol tartrate 100 mg tablet 100 mg PO BID 05/05/22 06/25/22 tpoyifcaiiuh-kvbxqhad-koksug tablet 1 tab PO DAILY 05/05/22 06/25/22 potassium chloride 10 mEq 10 meq PO BID 05/05/22 06/25/22 capsule,extended release aspirin 325 mg tablet,delayed 325 mg PO DAILY PRN pain 06/24/22 06/25/22 release vancomycin 125 mg capsule 125 mg PO DAILY 06/24/22 06/25/22 acetaminophen 300 mg-codeine 30 mg 2 tab PO .Q4-6H PRN Pain 06/25/22 06/25/22 tablet furosemide 20 mg tablet 20 mg PO DAILY 06/25/22 06/25/22 Results & Data (ED) Vital Signs Vital Signs - 24 hr 06/25/22 14:01 06/25/22 18:04 Temperature 36.8 C Temperature Source Temporal Artery Scan Pulse Rate 97 H Pulse Rate [Finger] 111 H Pulse Rhythm [Finger] Regular Pulse Strength [Finger] Normal Respiratory Rate 18 20 Respiratory Effort / Characteristics Non-Labored Spontaneous Respiratory Depth Normal Respiratory Pattern Regular Blood Pressure 123/67 Blood Pressure [Right Arm] 142/67 H Blood Pressure Mean 85 Blood Pressure Mean [Right Arm] 92 Blood Pressure Position [Right Arm] Sitting Pulse Oximetry 97 98 Oxygen Delivery Method Room Air Room Air Sepsis Recent Fever Within 48 Hours No Sepsis New/Unexplained Change in Mental Status N/A Sepsis Action Taken by Nursing No Action Required Laboratory Data Attestation: I reviewed the patient's lab results. Result diagrams: 06/25/22 15:25 06/25/22 15:25 Lab Results 07/29/22 07/29/22 07/29/22 Range/Units 15:25 15:25 15:25 WBC 3.22 L (4.8-10.8) K/ul RBC 4.20 (3.93-5.22) M/uL Hgb 13.5 (12.0-16.0) g/dl Hct 40.3 (34.1-44.9) % MCV 96.0 (80.0-100.0) fL MCH 32.1 (25.0-34.0) pg MCHC 33.5 (32.0-36.0) g/dL RDW Std Deviation 52.8 H (36.4-46.3) fL RDW Coeff of Dewayne 15.2 H (11.5-14.5) % Plt Count 65 L (130-400) K/uL MPV 12.4 H (9.4-12.3) fL Immature Gran % (Auto) 0.3 % Neut % (Auto) 79.5 % Lymph % (Auto) 13.4 % [place] % (Auto) 4.0 % Eos % (Auto) 1.9 % Baso % (Auto) 0.9 % Neut # (Auto) 2.56 (1.4-6.5) K/uL Lymph # (Auto) 0.43 L (1.2-3.4) K/uL [place] # (Auto) 0.13 L (0.24-0.82) K/uL Eos # (Auto) 0.06 (0-0.50) K/uL Baso # (Auto) 0.03 (0-0.2) K/uL Immature Gran # (Auto) 0.01 (0.00-0.02) K/uL Platelet Estimate Decreased L (Normal) Giant Platelets 1+ Tear Drop Cells 1+ Ovalocytes 2+ Acanthocytes (Spur) 1+ PT 12.9 H (9.0-12.0) Seconds INR 1.2 H (0.9-1.1) APTT 31.6 H (21.0-31.0) Seconds PTT Ratio 1.1 Sodium 138 (136-145) mmol/L Potassium 3.9 (3.5-5.1) mmol/L Chloride 105 (98-107) mmol/L Carbon Dioxide 24 (21-32) mmol/L Anion Gap 9 (3-11) BUN 10 (6-23) mg/dl Creatinine 0.69 (0.6-1.2) mg/dl Est Cr Clr Drug Dosing Not Reportable Est GFR ( Amer) 108.1 ml/min Est GFR (Non-Af Amer) 93.3 ml/min BUN/Creatinine Ratio 14.5 (10-20) Glucose 106 H (70-99(Fasting)) mg/dl Calcium 10.1 (8.5-10.1) mg/dl Magnesium (1.7-2.4) mg/dl Total Bilirubin 1.0 (0.2-1.0) mg/dl AST 33 (13-39) U/L ALT 22 (7-52) U/L Alkaline Phosphatase 146 H (34-104) U/L Total Protein 7.3 (6.0-8.3) gm/dl Albumin 4.0 (3.4-5.0) gm/dl Globulin 3.3 (2.5-4.0) gm/dl Albumin/Globulin Ratio 1.2 (0.9-2) TSH (0.300-4.500) uIu/ml SARS-CoV-2, RNA, NAAT (NEGATIVE) 06/25/22 06/25/22 06/25/22 Range/Units 15:25 15:25 18:33 WBC (4.8-10.8) K/ul RBC (3.93-5.22) M/uL Hgb (12.0-16.0) g/dl Hct (34.1-44.9) % MCV (80.0-100.0) fL MCH (25.0-34.0) pg MCHC (32.0-36.0) g/dL RDW Std Deviation (36.4-46.3) fL RDW Coeff of Dewayne (11.5-14.5) % Plt Count (130-400) K/uL MPV (9.4-12.3) fL Immature Gran % (Auto) % Neut % (Auto) % Lymph % (Auto) % [place] % (Auto) % Eos % (Auto) % Baso % (Auto) % Neut # (Auto) (1.4-6.5) K/uL Lymph # (Auto) (1.2-3.4) K/uL [place] # (Auto) (0.24-0.82) K/uL Eos # (Auto) (0-0.50) K/uL Baso # (Auto) (0-0.2) K/uL Immature Gran # (Auto) (0.00-0.02) K/uL Platelet Estimate (Normal) Giant Platelets Tear Drop Cells Ovalocytes Acanthocytes (Spur) PT (9.0-12.0) Seconds INR (0.9-1.1) APTT (21.0-31.0) Seconds PTT Ratio Sodium (136-145) mmol/L Potassium (3.5-5.1) mmol/L Chloride (98-107) mmol/L Carbon Dioxide (21-32) mmol/L Anion Gap (3-11) BUN (6-23) mg/dl Creatinine (0.6-1.2) mg/dl Est Cr Clr Drug Dosing Est GFR ( Amer) ml/min Est GFR (Non-Af Amer) ml/min BUN/Creatinine Ratio (10-20) Glucose (70-99(Fasting)) mg/dl Calcium (8.5-10.1) mg/dl Magnesium 1.7 (1.7-2.4) mg/dl Total Bilirubin (0.2-1.0) mg/dl AST (13-39) U/L ALT (7-52) U/L Alkaline Phosphatase (34-104) U/L Total Protein (6.0-8.3) gm/dl Albumin (3.4-5.0) gm/dl Globulin (2.5-4.0) gm/dl Albumin/Globulin Ratio (0.9-2) TSH 1.125 (0.300-4.500) uIu/ml SARS-CoV-2, RNA, NAAT NEGATIVE (NEGATIVE) Administered Medications Acetaminophen/Codeine Phosphate (Acetaminophen W/Codeine #3 1 Tab) 1 tab PO Q4H PRN PRN Reason: Pain Stop: 07/25/22 22:54 Last Admin: 06/25/22 23:40 Dose: 1 tab Documented By: TKB Lactated Ringer's (Lr) 1,000 mls @ 80 mls/hr IV .[id number] ONE Stop: 06/26/22 08:19 Last Admin: 06/25/22 21:30 Dose: 80 mls/hr Documented By: ML Discontinued Medications Metoprolol Tartrate (Metoprolol Tartrate 100 Mg Tab) 100 mg PO NOW STA Stop: 06/25/22 19:47 Last Admin: 06/25/22 21:26 Dose: 100 mg Documented By: DANA Discharge Plan Visit Data Chief Complaint: Illness Stated Complaint: SENT IN FOR PLACEMENT EVAL ED Provider: Esdras Alegre Discharge Problem: Failure of outpatient treatment, Fracture of proximal end of left tibia and fibula, Ambulatory dysfunction, Weakness Patient Disposition: Admitted As Inpatient Discharge Instructions Interventions: ED Discharge Assessment Last Done: 06/25/22 22:13
[2022-06-25] MEDS ORDERED: PROMETHAZINE HCL 6.25 MG in SODIUM CHLORIDE 0.9% 50 ML IV PRN (22:55)
[2022-06-25] MEDS: ACETAMINOPHEN W/CODEINE #3 1 TAB PO PRN (23:40)
[2022-06-26 00:51] LABS: Appearance Urine Cloudy (Clear); Bacteria Urine Automated 4+ (Negative); Bilirubin Urine Negative (Negative); Blood Urine 2+ (Negative); Color Urine Yellow; Epithelial Cell Urine Auto 0-5 /lpf (0-5); Glucose Urine UA Negative (Negative); Ketones Urine Negative (Negative); Leukocyte Esterase Urine 2+ (Negative); Nitrite Urine Positive (Negative); Protein Urine Negative (Negative); Specific Gravity Urine 1.017 (1.000-1.030); Urobilinogen Urine Negative (Negative); WBC Urine Automated >30 /hpf (0-5)
[2022-06-26] MEDS: CEROVITE ADV FORMULA TAB PO SCH (08:51)
[2022-06-26] MEDS: AMPHETAMINE ASP/SULF/DEXTRAMPH 10 MG TAB PO SCH ×2 (08:51→13:18)
[2022-06-26] MEDS: VANCOMYCIN HCL 125 MG/2.5ML SOLN PO SCH (08:52)
[2022-06-26] MEDS: RASPBERRY SYRUP 5 ML UDP PO SCH (08:52)
[2022-06-26] MEDS: METOPROLOL TARTRATE 100 MG TAB PO SCH ×2 (08:52→19:41)
[2022-06-26] MEDS ORDERED: [UNRECOGNIZED DRUG - OTHER] PO SCH (09:00)
--- NOTE | 2022-06-26 14:57 | Hospitalist Progress Note ---
Date of Service June 26, 2022 Assessment & Plan (1) Ambulatory dysfunction: Plan 62-year-old female with PMH of HTN, COPD, cirrhosis of unclear etiology, ADD/mood disorder/schizophrenia, recurrent C. difficile on chronic vancomycin suppression treatment, chronic anemia [baseline hemoglobin 11], chronic thrombocytopenia, recent left tibia/fibula fracture and past tobacco abuse presented 06/25 to our ED because family member could not take care of the patient at home. Patient's recovering from back surgery from 5 months ago. She is being managed for the following: Ambulatory dysfunction Recent history of traumatic left tibia fracture 04/2022 Patient's not able to take care of the patient at home and feels patient is weaker than her normal. Patient admitted for placement. PT/OT, CM on board. Abnormal UA: Pt w/ no urinary complain. Await Cx, Monitor off ATB. h/o rec c diff. Lt foot wound, infected: Lt Foot Culture 06/24, MRSA. Vancomycin iv, Will get blo od culture. Wound care. Other chronic medical conditions: HTN, COPD, cirrhosis of unclear etiology, ADD/mood disorder/schizophrenia, recurrent C. difficile on chronic vancomycin suppressive treatment, chronic anemia at baseline, chronic thrombocytopenia secondary to cirrhosis, past tobacco abuse. Continue with/resume home meds as and when appropriate. DVT prophylaxis: SCDs, thrombocytopenia. Full code Patient's Sidney Dorantes [[phone]]. Admission and Anticipated Discharge Date Admission Date: June 26, 2022 Subjective Patient seen and examined at bedside as a follow-up of history of traumatic left tibia fracture and ambulatory dysfunction. Patient was lying in bed, on room air, NAD, no new acute events overnight. Patient reports eating okay and moving bowels okay. Patient reports pain at LLE under control. Patient denies headache/dizziness/sore throat/cough/chest pain/belly pain/other review of symptoms. Patient is hard of hearing. Physical Exam Physical Exam: GENERAL: Alert and oriented x3. NAD, on RA. [place]. HEENT: No pallor, no icterus. Pupils equal, round and reactive to light. Oral mucosa moist. NECK: No JVD, no neck masses. HEART: S1 and S2 heard. Regular rate and rhythm. No murmur, no gallop. RESPIRATORY SYSTEM: Normal AP diameter. No accessory muscle use. No wheezing, no crackles. ABDOMEN: Soft, bowel sounds present, nontender, no distention. CENTRAL NERVOUS SYSTEM: No facial droop. Speech is clear. Obeys simple comm ands. Moves extremities. EXTREMITIES: RLE trace edema, LLE w/ splint, distal NV status wnl, no erythema seen. Results & Data Results & Data ([facility]) Vital Signs (Past 12 Hours) Vital Signs Temp Pulse Resp BP Pulse Ox O2 Del Method 06/26/22 07:38 36.5 C 58 L 14 134/65 95 Room Air
[2022-06-26] MEDS ORDERED: VANCOMYCIN CONSULT ACTIVE PRN (15:07)
[2022-06-26] MEDS ORDERED: VANCOMYCIN HCL 1,250 MG in SODIUM CHLORIDE 0.9% 250 ML IV ONE (15:30)
--- NOTE | 2022-06-26 15:36 | Pharmacy Report ---
Pharmacy PK ABX Note - Date of Service June 26, 2022 - Assessment and Plan Assessment 62 year old F receiving vancomycin IV for treatment of left foot MRSA infection. h.o recurrent C. difficile infection on chronic suppressive treatment with oral vancomycin Plan Vancomycin * Loading dose: 1250 mg IV x 1 * Maintenance dose: 1000 mg IV every 12 hours * Regimen is predicted to achieve target AUC/CONRAD of 400-600 mg/L.hr * predicted steady state AUC/CONRAD = 580 * predicted steady state trough = 18.2 mcg/mL * Drug level to be ordered after ~48 hours of therapy Pharmacy will continue to follow and will adjust dose/frequency as necessary. Thank you. Pharmacy has transitioned to AUC monitoring for vancomycin. AUC/CONRAD is the preferred PK/PD target and is associated with decreased risk of nephrotoxicity compared to traditional trough targets.
[2022-06-27] MEDS: VANCOMYCIN HCL 1,000 MG in SODIUM CHLORIDE 0.9% 250 ML IV SCH ×2 (02:25→14:36)
[2022-06-27 06:02] LABS: A calco-baum cmplx NotReported DETECTED (NotDetected); Bact fragilis Not Reported Not Detected (NotDetected); C auris Not Reported Not Detected (NotDetected); CTX-M Resistant Gene Not Detected (NotDetected); Calbicans Not Reported Not Detected (NotDetected); Candida glabrata Not Reported Not Detected (NotDetected); Candida krusei Not Reported Not Detected (NotDetected); Cneoformans/gatti Not Reported Not Detected (NotDetected); Cparapsilosis Not Reported Not Detected (NotDetected); Ctropicalis Not Reported Not Detected (NotDetected); E cloacae compx Not Reported Not Detected (NotDetected); Efaecalis Not Reported Not Detected (NotDetected); Efaecium Not Reported Not Detected (NotDetected); Enterobacterales Not Reported Not Detected (NotDetected); Escherichia coli Not Reported Not Detected (NotDetected); H influenzae Not Reported Not Detected (NotDetected); IMP Resistant Gene Not Detected (NotDetected); K aerogenes Not Reported Not Detected (NotDetected); KPC Resistant Gene Not Detected (NotDetected); Koxytoca Not Reported Not Detected (NotDetected); Kpneumoniae grp Not Reported Not Detected (NotDetected); Lmonocyt Not Reported Not Detected (NotDetected); N meningitidis Not Reported Not Detected (NotDetected); NDM Resistant Gene Not Detected (NotDetected); P aeruginosa Not Reported Not Detected (NotDetected); Proteus spp Not Reported Not Detected (NotDetected); Salmonella spp Not Reported Not Detected (NotDetected); Smarcescens Not Reported Not Detected (NotDetected); Staph lugdunensis Not Reported Not Detected (NotDetected); Staph spp. Not Reported DETECTED (NotDetected); Staphaureus Not Reported DETECTED (NotDetected); Staphepi Not Reported Not Detected (NotDetected); Staphylococcus spp. DETECTED (NotDetected); Stenmaltophilia Not Reported Not Detected (NotDetected); Strep agal(GrpB) Not Reported Not Detected (NotDetected); Strep pneum Not Reported Not Detected (NotDetected); Strep pyog (GrpA) Not Reported Not Detected (NotDetected); Strep spp Not Reported Not Detected (NotDetected); VIM Resistant Gene Not Detected (NotDetected)
[2022-06-27 07:18] LABS: Acinetobacter calco-baum cmplx DETECTED (NotDetected); mecAC+MREJ Resistant Gene MRSA DETECTED (NotDetected)
[2022-06-27] MEDS: AZTREONAM 2,000 MG in DEXTROSE 5% 100 ML IV SCH ×2 (08:57→16:46)
[2022-06-27] MEDS: RASPBERRY SYRUP 5 ML UDP PO SCH (08:57)
[2022-06-27] MEDS: VANCOMYCIN HCL 125 MG/2.5ML SOLN PO SCH (08:57)
[2022-06-27] MEDS: CEROVITE ADV FORMULA TAB PO SCH (08:58)
[2022-06-27] MEDS: ADVANCED PROBIOTIC 1250 MG CAPSULE PO SCH (08:58)
[2022-06-27] MEDS: METOPROLOL TARTRATE 100 MG TAB PO SCH ×2 (08:58→20:16)
[2022-06-27] MEDS: AMPHETAMINE ASP/SULF/DEXTRAMPH 10 MG TAB PO SCH ×2 (09:12→14:36)
[2022-06-27 09:28] LABS: Creatinine Clr Calc Pharmacy 98.5 ml/min; Est GFR (African American) 113.9 ml/min; Est GFR (Non-African American) 98.2 ml/min
--- NOTE | 2022-06-27 15:48 | Hospitalist Progress Note ---
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 Patient's recovering from back surgery from 5 months ago. She is being managed for the following: Ambulatory dysfunction Recent history of traumatic left tibia fracture 04/2022 Patient's not able to take care of the patient at home and felt patient is weaker than her normal. Patient admitted for placement. PT/OT, CM on board. Abnormal UA: Pt w/ no urinary complain. Admitting U Cx w/ GNB. Lt foot wound, infected: Lt Foot Culture 06/24, MRSA. Vancomycin iv 06/27. Wound care. Ortho consulted for campos for wound complicated by cast. Bacteremia: 06/26 blood culture with GNB and GPC bacteremia, patient with history of penicillin anaphylaxis but reports being able to use amoxicillin later on, will confirm with pharmacy, currently on aztreonam 06/27. ID consult. Echo. Repeat blood culture every 48 hours until negative. Other chronic medical conditions: HTN, COPD, cirrhosis of unclear etiology, ADD/mood disorder/schizophrenia, recurrent C. difficile on chronic vancomycin suppressive treatment, chronic anemia at baseline, chronic thrombocytopenia secondary to cirrhosis, past tobacco abuse. Continue with/resume home meds as and when appropriate. DVT prophylaxis: SCDs, thrombocytopenia. Full code Patient's Sidney Dorantes [[phone]]. 06/26-06/27: pt's updated at bedside. Admission and Anticipated Discharge Date Admission Date: June 26, 2022 Subjective Patient seen and examined at bedside as a follow-up of history of traumatic left tibia fracture and ambulatory dysfunction, left foot MRSA infection and GPC/GNB bacteremia. Patient was lying in bed, on room air, NAD, no new acute events overnight. Patient reports eating okay and moving formed bowels. Patient reports pain at LLE under control. Patient denies headache/dizziness/sore throat/cough/chest pain/belly pain/other review of symptoms. Patient is hard of hearing. Pt was updated about her new developments including positive blood culture with GPC and GNB which requires repeat blood culture and echo and ID consult prior to deciding on final management. Patient made aware. Patient [facility] and also fixated on whether or not she has C. difficile in the stool but upon questioning/further evaluation she was having formed stool so far. If there is a concern of loose watery stool we can send for C. difficile, patient and RN made aware. I spent more than 45 minutes with patient trying to explain the seriousness of her current condition, she was dissatisfi ed with the healthcare system and even mentioned of "law suit will include you" if she is not discharged today. I offered her that I could explain all her conditions to her as well. Also made her aware that it is too early for me to be able to discharge her. Later on patient was sorry for her behavior in the morning, I updated again about her current status and plan of care to her at bedside. Answered all his questions to satisfaction. In the AM conversation w/ Patient, in the initial part OT personnel Eliel was in the room w/ me, then in later part of the conversation RN Aleksandar was with me. Physical Exam Physical Exam: GENERAL: Alert and oriented x3. NAD, on RA. [place]. HEENT: No pallor, no icterus. Pupils equal, round and reactive to light. Oral mucosa moist. NECK: No JVD, no neck masses. HEART: S1 and S2 heard. Regular rate and rhythm. No murmur, no gallop. RESPIRATORY SYSTEM: Normal AP diameter. No accessory muscle use. No wheezing, no crackles. ABDOMEN: Soft, bowel sounds present, nontender, no distention. CENTRAL NERVOUS SYSTEM: No facial droop. Speech is clear. Obeys simple commands. Moves extremities. EXTREMITIES: RLE trace edema, LLE w/ splint, distal NV status wnl. Results & Data Results & Data ([facility]) Vital Signs (Past 12 Hours) Vital Signs Temp Pulse Resp BP Pulse Ox O2 Del Method 06/27/22 07:25 36.4 C L 61 14 119/66 94 Room Air
[2022-06-27] MEDS: levoFLOXacin/D5W 750 MG/150 ML BAG IV SCH (17:16)
[2022-06-27] MEDS: ACETAMINOPHEN W/CODEINE #3 1 TAB PO PRN (23:48)
[2022-06-28] MEDS: VANCOMYCIN HCL 1,000 MG in SODIUM CHLORIDE 0.9% 250 ML IV SCH (01:56)
[2022-06-28 08:17] LABS: Hematocrit (blood only) 34.7 % (34.1-44.9); Hemoglobin 11.7 g/dl (12.0-16.0); Mean Platelet Volume 12.8 fL (9.4-12.3); Platelet Count 50 K/uL (130-400); White Blood Count 3.31 K/ul (4.8-10.8)
[2022-06-28 08:41] LABS: Mean Corpuscular Hemoglobin 32.3 pg (25.0-34.0); Mean Corpuscular Hgb Conc 33.7 g/dL (32.0-36.0); Mean Corpuscular Volume 95.9 fL (80.0-100.0); RDW Standard Deviation 51.8 fL (36.4-46.3); Red Blood Count 3.62 M/uL (3.93-5.22)
[2022-06-28] MEDS: AMPHETAMINE ASP/SULF/DEXTRAMPH 10 MG TAB PO SCH ×2 (08:45→14:44)
[2022-06-28] MEDS: VANCOMYCIN HCL 125 MG/2.5ML SOLN PO SCH (08:51)
[2022-06-28] MEDS: CEROVITE ADV FORMULA TAB PO SCH (08:51)
[2022-06-28] MEDS: RASPBERRY SYRUP 5 ML UDP PO SCH (08:51)
[2022-06-28] MEDS: METOPROLOL TARTRATE 100 MG TAB PO SCH ×2 (08:51→22:21)
[2022-06-28] MEDS: ADVANCED PROBIOTIC 1250 MG CAPSULE PO SCH (08:51)
[2022-06-28 09:04] LABS: Calcium 9.1 mg/dl (8.5-10.1); Creatinine Clr Calc Pharmacy 96.8 ml/min; Est GFR (African American) 113.2 ml/min; Est GFR (Non-African American) 97.7 ml/min; Magnesium 1.6 mg/dl (1.7-2.4); Phosphorus 3.4 mg/dl (2.5-4.9); Potassium 3.3 mmol/L (3.5-5.1)
[2022-06-28] MEDS ORDERED: POTASSIUM CHLORIDE CRTAB 20 MEQ TABCR PO STA (09:25)
[2022-06-28] MEDS: MAGNESIUM SULFATE / D5W 1 GM/100 ML BAG IV SCH ×2 (10:07→12:02)
--- NOTE | 2022-06-28 11:22 | Progress Notes ---
DATE OF SERVICE: 06/28/2022. The patient is well known to me from outpatient treatment of her left tib-fib fracture. She also has a couple of wounds on the leg and has been seen in [facility]. She reports being seen last we ek. She was readmitted to the hospital over the weekend. She is not complaining of any significant pain in the left leg. The splint is removed. There is a superficial wound over the front of her kne e, which is essentially completely healed. There is another one in the mid anterior leg likewise daniel ost completely healed. There is some macerated superficial eschar on the anterior aspect of the ankl e for wound #3 and wound #4 is her heel. The heel looks superficial. The thick black eschar has lar jeane dissipated and there is some superficial eschar over the heel about 3 cm in diameter benign in a ppearance. No drainage or erythema. Her leg is nontender. Swelling is minimal. She was to follow up today in the office. It has been eight weeks since her fracture. We will go ah ead and get an x-ray, AP and lateral of the left tib-fib. We will have Wound Care continue to help t he patient. This splint can be removed for wound care. After reviewing the x-rays we will make some decisions about splinting. Weightbearing is not possible at this point and likely will need to be d elayed for another month. She had been taking aspirin for DVT prophylaxis. She could be on aspirin. I did review her labs and she had thrombocytopenia, so use of subcutaneous heparin or Lovenox is pr obably not advisable. Mechanical devices could be used as well. Job ID: [id number]
--- NOTE | 2022-06-28 13:04 | XRay Report ---
XR tibia fibula LT 2V CLINICAL HISTORY: left tibial plateau fx. Follow-up. COMPARISON STUDY: Left tibia/fibular 06/11/2022 FINDINGS: Overlying splint material obscures fine bony detail. The bones are osteopenic. Progressive bony bridging and callus formation within the proximal tibia and proximal fibular fractures. The alig nment remains unchanged. The distal fibula and distal tibia are intact. Postoperative changes again n oted within the distal femur. IMPRESSION: Progressive healing within the proximal left tibia and proximal left fibular fractures. Alignment remains unchanged. ACT 112: Negative or not required by law. Electronically signed by: Tyrone Pantoja M.D. 06/28/2022 1:02 PM
--- NOTE | 2022-06-28 13:11 | Pharmacy Report ---
Pharmacy PK ABX Note - Date of Service June 28, 2022 - Assessment and Plan Assessment 62 year old F receiving vancomycin IV for treatment of left foot MRSA infection. h.o recurrent C. difficile infection on chronic suppressive treatment with oral vancomycin. Patient has severe anaphylactic penicillin allergy. 06/28 update: blood culture 1 of 2 (06/26/22) growing gram-positive cocci and gram- negative bacilli ([employer] reveals MRSA), repeat cultures on 06/28/22. Urine culture growing Klebsiella pneumoniae (I - nitrofurantoin). Levaquin added for gram-negative coverage, awaiting final culture results. Plan Vancomycin * Current regimen: 1000 mg IV every 12 hours * Vanco level obtained 06/28/22 resulted as 12.5 mcg/mL. This is predicted to achieve target AUC/CONRAD of 400-600 mg/L.hr * Predicted AUC at steady state: 461 mg/L.hr * Given MRSA bacteremia, will increase dose today to increase probability of achieving target AUC/CONRAD * Change to 1250 mg IV every 12 hours * Repeat level ordered for: 06/30/22 Pharmacy will continue to follow and will adjust dose/frequency as necessary. Thank you. Pharmacy has transitioned to AUC monitoring for vancomycin. AUC/CONRAD is the preferred PK/PD target and is associated with decreased risk of nephrotoxicity compared to traditional trough targets.
[2022-06-28] MEDS ORDERED: VANCOMYCIN LEVEL ONE (13:30)
[2022-06-28] MEDS: VANCOMYCIN HCL 1,250 MG in SODIUM CHLORIDE 0.9% 250 ML IV SCH (14:24)
--- NOTE | 2022-06-28 17:46 | Hospitalist Progress Note ---
Date of Service June 28, 2022 Assessment & Plan (1) Ambulatory dysfunction: Plan 62-year-old female with PMH of HTN, COPD, cirrhosis of unclear etiology, ADD/mood disorder/schizophrenia, recurrent C. difficile on chronic vancomycin suppression treatment, chronic anemia [baseline hemoglobin 11], chronic thrombocytopenia, recent left tibia/fibula fracture and past tobacco abuse presented 06/25 to our ED because family member could not take care of the patient at home. Patient's recovering from back surgery from 5 months ago. She is being managed for the following: Ambulatory dysfunction Recent history of traumatic left tibia fracture 04/2022 Patient's not able to take care of the patient at home and felt patient is weaker than her normal. Patient admitted for placement. PT/OT, CM on board. Abnormal UA/likely UTI: Pt w/ no urinary complain. Admitting U Cx w/ K. pneumoniae Lt foot wound, infected: Lt Foot Culture 06/24, MRSA. Vancomycin iv 06/27. Wound care. Ortho on board, appreciate recs. Bacteremia: 06/26 blood culture with GNB and GPC bacteremia, patient with history of penicillin anaphylaxis but reports being able to use amoxicillin later on, Per pharmacy Pt had received cefepime and ceftriaxone in the past. on levaquin 06/27. ID consult. Echo w/ no evidence of mass or vegetation/EF 60-65%. Repeat blood culture every 48 hours until negative. F/u 06/28 blood Cx. Other chronic medical conditions: HTN, COPD, cirrhosis of unclear etiology, ADD/mood disorder/schizophrenia, recurrent C. difficile on chronic vancomycin suppressive treatment, chronic anemia at baseline, chronic thrombocytopenia secondary to cirrhosis, past tobacco abuse. Continue with/resume home meds as and when appropriate. DVT prophylaxis: SCDs, thrombocytopenia. Full code Patient's Sidney Dorantes [[phone]]. 06/26-06/27: pt's updated at bedside. Admission and Anticipated Discharge Date Admission Date: June 26, 2022 Subjective Patient seen and examined at bedside as a follow-up of history of traumatic left tibia fracture and ambulatory dysfunction, left foot MRSA infection and GPC/GNB bacteremia. Patient was lying in bed, on room air, NAD, no new acute events overnight. Pt was sleepy and denies acute events/discomfort/other problems.. Patient denies headache/dizziness/sore throat/cough/chest pain/belly pain/other review of symptoms. Patient is hard of hearing. Physical Exam Physical Exam: GENERAL: Alert and oriented x3. NAD, on RA. [place]. HEENT: No pallor, no icterus. Pupils equal, round and reactive to light. Oral mucosa moist. NECK: No JVD, no neck masses. HEART: S1 and S2 heard. Regular rate and rhythm. No murmur, no gallop. RESPIRATORY SYSTEM: Normal AP diameter. No accessory muscle use. No wheezing, no crackles. ABDOMEN: Soft, bowel sounds present, nontender, no distention. CENTRAL NERVOUS SYSTEM: No facial droop. Speech is clear. Obeys simple commands. Moves extremities. EXTREMITIES: RLE trace edema, LLE w/ splint, distal NV status wnl. wound image reviewed. Results & Data Results & Data ([facility]) Vital Signs (Past 12 Hours) Vital Signs Temp Pulse Resp BP Pulse Ox O2 Del Method 06/28/22 14:32 36.8 C 53 L 20 124/63 95 Room Air 06/28/22 08:45 60 144/76 H 06/28/22 07:31 36.3 C L 51 L 16 158/76 H 97 Room Air
[2022-06-28] MEDS: levoFLOXacin/D5W 750 MG/150 ML BAG IV SCH (17:48)
[2022-06-29] MEDS: VANCOMYCIN HCL 1,250 MG in SODIUM CHLORIDE 0.9% 250 ML IV SCH ×2 (01:29→13:27)
[2022-06-29 08:52] LABS: Hematocrit (blood only) 38.2 % (34.1-44.9); Hemoglobin 12.6 g/dl (12.0-16.0); White Blood Count 4.27 K/ul (4.8-10.8)
[2022-06-29] MEDS: METOPROLOL TARTRATE 100 MG TAB PO SCH ×2 (09:09→20:40)
[2022-06-29] MEDS: RASPBERRY SYRUP 5 ML UDP PO SCH (09:10)
[2022-06-29] MEDS: CEROVITE ADV FORMULA TAB PO SCH (09:10)
[2022-06-29] MEDS: VANCOMYCIN HCL 125 MG/2.5ML SOLN PO SCH (09:10)
[2022-06-29] MEDS: ADVANCED PROBIOTIC 1250 MG CAPSULE PO SCH (09:10)
[2022-06-29 09:17] LABS: Mean Corpuscular Hemoglobin 31.9 pg (25.0-34.0); Mean Corpuscular Volume 96.7 fL (80.0-100.0); Mean Platelet Volume 13.1 fL (9.4-12.3); Platelet Count 54 K/uL (130-400); RDW Coefficient of Variation 15.2 % (11.5-14.5); RDW Standard Deviation 53.7 fL (36.4-46.3); Red Blood Count 3.95 M/uL (3.93-5.22)
[2022-06-29 09:19] LABS: BUN Creatinine Ratio 22.6 (10-20); Calcium 9.1 mg/dl (8.5-10.1); Creatinine Clr Calc Pharmacy 93.7 ml/min; Est GFR (Non-African American) 96.6 ml/min; Magnesium 1.8 mg/dl (1.7-2.4); Potassium 3.7 mmol/L (3.5-5.1)
--- NOTE | 2022-06-29 10:03 | Orthopedic Progress Note ---
Date of Service June 29, 2022 Assessment & Plan (1) Fracture of proximal end of left tibia and fibula: Plan: Left proximal tibial and fibular fracture, 8 weeks out, treating conservatively Non-weight bearing left lower extremity Keep splint in tact Wound care per wound nurse. May remove splint for wound care. Recommend ASA and SCDs for DVT prophylaxis. Follow up in the office with Dr Ogden as scheduled Admission and Anticipated Discharge Date Admission Date: June 26, 2022 Subjective Patient seen and examined at bedside. We are following her outpatient for left tibia and fibula fracture that she sustained about 8 weeks ago. Patient states this morning that she is doing well and she has no pain. Her splint is fitting comfortably. Physical Exam Physical Exam: General: Pt laying in hospital bed AA&O, in NAD, calm and cooperative during exam Lower Extremity: Splint is intact, clean and fitting appropriately. Patient is able to wiggle all of her digits. She is NVI with sensation to light touch distally. Results & Data ([facility]) Vital Signs (Past 12 Hours) Vital Signs Temp Pulse Pulse Resp BP Pulse Ox O2 Del Method 06/29/22 08:45 Room Air 06/29/22 09:09 69 06/29/22 07:13 36.6 C 55 L 14 124/67 96 Room Air 06/28/22 22:15 Room Air 06/28/22 22:20 36.7 C 60 18 130/59 L 96 Room Air Diagnostic Findings XR tibia fibula LT 2V CLINICAL HISTORY: left tibial plateau fx. Follow-up. COMPARISON STUDY: Left tibia/fibular 06/11/2022 FINDINGS: Overlying splint material obscures fine bony detail. The bones are osteopenic. Progressive bony bridging and callus formation within the proximal tibia and proximal fibular fractures. The alignment remains unchanged. The distal fibula and distal tibia are intact. Postoperative changes again noted within the distal femur. IMPRESSION: Progressive healing within the proximal left tibia and proximal left fibular fractures. Alignment remains unchanged.
[2022-06-29] MEDS: AMPHETAMINE ASP/SULF/DEXTRAMPH 10 MG TAB PO SCH ×2 (10:08→15:28)
[2022-06-29] MEDS: levoFLOXacin/D5W 750 MG/150 ML BAG IV SCH (17:25)
--- NOTE | 2022-06-29 17:49 | Hospitalist Progress Note ---
Date of Service June 29, 2022 Assessment & Plan (1) Ambulatory dysfunction: Plan 62-year-old female with PMH of HTN, COPD, cirrhosis of unclear etiology, ADD/mood disorder/schizophrenia, recurrent C. difficile on chronic vancomycin suppression treatment, chronic anemia [baseline hemoglobin 11], chronic thrombocytopenia, recent left tibia/fibula fracture and past tobacco abuse presented 06/25 to our ED because family member could not take care of the patient at home. Patient's recovering from back surgery from 5 months ago. She is being managed for the following: Ambulatory dysfunction Recent history of traumatic left tibia fracture 04/2022: Per ortho, NWB x LLE, maintain splint, f/u w/ ortho as OP. Patient's not able to take care of the patient at home and felt patient is weaker than her normal [employer]. Patient admitted for placement. PT/OT, CM on board. Abnormal UA/likely UTI: Pt w/ no urinary complain. Admitting U Cx w/ K. pneumoniae Lt foot wound, infected: Lt Foot Culture 06/24, MRSA. Vancomycin iv 06/27. Wound care. Ortho on board, appreciate recs. Bacteremia: 06/26 blood culture with GNB and MRSA bacteremia, patient with history of penicillin anaphylaxis but reports being able to use amoxicillin later on, Per pharmacy Pt had received cefepime and ceftriaxone in the past. on levaquin 06/27. ID consult. Echo w/ no evidence of mass or vegetation/EF 60- 65%. Repeat blood culture every 48 hours until negative. F/u 06/28 blood Cx w/ no growth so far. Other chronic medical conditions: HTN, COPD, cirrhosis of unclear etiology, ADD/mood disorder/schizophrenia, recurrent C. difficile on chronic vancomycin suppressive treatment, chronic anemia at baseline, chronic thrombocytopenia secondary to cirrhosis, past tobacco abuse. Continue with/resume home meds as and when appropriate. DVT prophylaxis: SCDs, thrombocytopenia. Full code Patient's Sidney Dorantes [[phone]]. Dispo: pending ID eval and negative 06/28 blood culture. 06/26-06/27: pt's updated at bedside. Admission and Anticipated Discharge Date Admission Date: June 26, 2022 Subjective Patient seen and examined at bedside as a follow-up of history of traumatic left tibia fracture and ambulatory dysfunction, left foot MRSA infection and GPC/GNB bacteremia. Patient was lying in bed, on room air, NAD, no new acute events overnight. Pt reports feeling better, strength back and eating ok, had 2 formed BM today. Pt appears satisfied. Patient denies headache/dizziness/sore throat/cough/chest pain/belly pain/other review of symptoms. Patient is hard of hearing. Physical Exam Physical Exam: GENERAL: Alert and oriented x3. NAD, on RA. [place]. HEENT: No pallor, no icterus. Pupils equal, round and reactive to light. Oral mucosa moist. NECK: No JVD, no neck masses. HEART: S1 and S2 heard. Regular rate and rhythm. No murmur, no gallop. RESPIRATORY SYSTEM: Normal AP diameter. No accessory muscle use. No wheezing, no crackles. ABDOMEN: Soft, bowel sounds present, nontender, no distention. CENTRAL NERVOUS SYSTEM: No facial droop. Speech is clear. Obeys simple commands. Moves extremities. EXTREMITIES: RLE trace edema, LLE w/ splint, distal NV status wnl. wound image reviewed. Results & Data Results & Data ([facility]) Vital Signs (Past 12 Hours) Vital Signs Temp Pulse Pulse Resp BP Pulse Ox O2 Del Method 06/29/22 16:13 37.2 C 60 14 144/75 H 95 Room Air 06/29/22 08:45 Room Air 06/29/22 09:09 69 06/29/22 07:13 36.6 C 55 L 14 124/67 96 Room Air
--- NOTE | 2022-06-29 18:15 | Progress Notes ---
DATE OF NOTE: 06/29/2022. She has been able to get up and go to the bathroom maintaining nonweightbearing with minimal or no pa in. She is very pleased. The radiographs show good alignment of the proximal tibia fracture. No dis placement and abundant callous formation. The proximal fibula was also fractured and healing. The plan at this time is to discontinue the splint. She can work on knee and ankle range of motion a nd strengthening. Nonweightbearing at this time on the left leg. The leg will be available for woun d care. Job ID: [id number]
[2022-06-29] MEDS ORDERED: ACETAMINOPHEN 325 MG TAB PO PRN (20:17)
[2022-06-30] MEDS: VANCOMYCIN HCL 1,250 MG in SODIUM CHLORIDE 0.9% 250 ML IV SCH ×2 (00:13→14:15)
[2022-06-30 06:28] LABS: Hematocrit (blood only) 33.9 % (34.1-44.9); Hemoglobin 11.6 g/dl (12.0-16.0); White Blood Count 2.95 K/ul (4.8-10.8)
[2022-06-30 06:51] LABS: BUN Creatinine Ratio 28.6 (10-20); Calcium 8.7 mg/dl (8.5-10.1); Creatinine Clr Calc Pharmacy 103.8 ml/min; Est GFR (African American) 115.8 ml/min; Est GFR (Non-African American) 99.9 ml/min; Potassium 3.6 mmol/L (3.5-5.1)
[2022-06-30 06:55] LABS: Mean Corpuscular Hemoglobin 32.4 pg (25.0-34.0); Mean Corpuscular Hgb Conc 34.2 g/dL (32.0-36.0); Mean Corpuscular Volume 94.7 fL (80.0-100.0); Mean Platelet Volume 13.2 fL (9.4-12.3); Platelet Count 49 K/uL (130-400); RDW Coefficient of Variation 15.2 % (11.5-14.5); RDW Standard Deviation 52.8 fL (36.4-46.3); Red Blood Count 3.58 M/uL (3.93-5.22)
[2022-06-30] MEDS: AMPHETAMINE ASP/SULF/DEXTRAMPH 10 MG TAB PO SCH ×2 (07:29→15:46)
[2022-06-30] MEDS: RASPBERRY SYRUP 5 ML UDP PO SCH (09:26)
[2022-06-30] MEDS: VANCOMYCIN HCL 125 MG/2.5ML SOLN PO SCH (09:27)
[2022-06-30] MEDS: ADVANCED PROBIOTIC 1250 MG CAPSULE PO SCH (09:27)
[2022-06-30] MEDS: CEROVITE ADV FORMULA TAB PO SCH (09:27)
[2022-06-30] MEDS: METOPROLOL TARTRATE 100 MG TAB PO SCH ×2 (09:33→21:33)
[2022-06-30] MEDS ORDERED: VANCOMYCIN LEVEL ONE (12:30)
--- NOTE | 2022-06-30 15:04 | Pharmacy Report ---
Pharmacy PK ABX Note - Date of Service June 30, 2022 - Assessment and Plan Assessment 62 year old F receiving vancomycin IV for treatment of left foot MRSA infection. h.o recurrent C. difficile infection on chronic suppressive treatment with oral vancomycin. Patient has severe anaphylactic penicillin allergy. 06/30 update: Day #5 of Vancomycin and day #4 of Levofloxacin blood cultures grew two different MRSA species (Vanc CONRAD = 2) and Acinetobacter baumannii (pansensitive). ID consult still pending. Plan Vancomycin * Current regimen: 1250 mg IV every 12 hours * Vanco level obtained 06/30/22 resulted as 13.4 mcg/mL. This is predicted to achieve target AUC/CONRAD of 400-600 mg/L.hr * Predicted AUC at steady state: 523 mg/L.hr * Continue 1250 mg IV every 12 hours * Repeat level ordered for: 07/02/22 Levofloxacin * 750 mg IV every 24 hours Pharmacy will continue to follow and will adjust dose/frequency as necessary. Thank you. Pharmacy has transitioned to AUC monitoring for vancomycin. AUC/CONRAD is the preferred PK/PD target and is associated with decreased risk of nephrotoxicity compared to traditional trough targets.
[2022-06-30] MEDS: levoFLOXacin/D5W 750 MG/150 ML BAG IV SCH (17:23)
--- NOTE | 2022-06-30 18:49 | Hospitalist Progress Note ---
Date of Service June 30, 2022 Assessment & Plan (1) Bacteremia: Plan: - Recent history of traumatic left tibia fracture 04/2022: Per ortho, NWB x LLE, maintain splint, f/u w/ ortho as OP. - Lt foot wound, infected and likely source of bacteremia - Lt Foot Culture 06/24, MRSA. - 06/26 blood culture with Acinetobacter baumannii and MRSA bacteremia - started on Vancomycin IV and levofloxacin 06/27/2022 - Wound care. Ortho on board, appreciate recs. - of note, patient with history of penicillin anaphylaxis but reports being able to use amoxicillin later on -->Per pharmacy Pt had received cefepime and ceftriaxone in the past. - D consult - Echo w/ no evidence of mass or vegetation/EF 60-65%. - Repeat blood culture every 48 hours until negative. - F/u 06/28/2022 blood Cx w/ NGTD - will likely need 2 week of IV antibiotics for MRSA and Acinetobacter bacteremia (2) Ambulatory dysfunction: Plan Ambulatory dysfunction Recent history of traumatic left tibia fracture 04/2022: Per ortho, NWB x LLE, maintain splint, f/u w/ ortho as OP. 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 Patient admitted for placement - pending acceptance to [facility] vs SNF pending patient agreement PT/OT, CM on board. Abnormal UA/likely UTI: Pt w/ no urinary complain. Admitting U Cx w/ K. pneumoniae - no abx for now but levaquin should be adequate Other chronic medical conditions: HTN, COPD, cirrhosis of unclear etiology, ADD/mood disorder/schizophrenia, recurrent C. difficile on chronic vancomycin suppressive treatment, chronic anemia at baseline, chronic thrombocytopenia secondary to cirrhosis, past tobacco abuse. Continue with/resume home meds as and when appropriate. DVT prophylaxis: SCDs, thrombocytopenia. Full code Patient's Sidney Dorantes [[phone]]. Dispo: pending ID eval and negative 06/28/2022 blood culture. Reece Ramos MD [facility] Medicine Admission and Anticipated Discharge Date Admission Date: June 26, 2022 Subjective The patient is a 62 year old woman with pmh HTN, COPD, cryptogenic cirrhosis, ADD/mood disorder/schizophrenia, recurrent C diff con chronic po vancomycin suppression therapy, anemia, recent left tib/fib fracture presented because not able to care for patient and she was found to have LLE wound infection and subsequently bacteremia with MRSA and Acinetobacter baumannii started on vancomycin and levaquin with improvement. Pending ID consult. Pending placement at [facility] vs [facility]. Patient was lying in bed, on room air, NAD, no new acute events overnight. Pt reports feeling better, strength back. Pt appears satisfied. Patient denies headache/dizziness/sore throat/cough/chest pain/belly pain/other review of symptoms. Review of Systems Review of Systems: All systems reviewed & are unremarkable except as noted in Subjective As per HPI, all other systems reviewed and negative Physical Exam Physical Exam: GENERAL: Alert and oriented x3. NAD, on RA. [place]. HEENT: No pallor, no icterus. Pupils equal, round and reactive to light. Oral mucosa moist. NECK: No JVD, no neck masses. HEART: S1 and S2 heard. Regular rate and rhythm. No murmur, no gallop. RESPIRATORY SYSTEM: Normal AP diameter. No accessory muscle use. No wheezing, no crackles. ABDOMEN: Soft, bowel sounds present, nontender, no distention. CENTRAL NERVOUS SYSTEM: No facial droop. Speech is clear. Obeys simple commands. Moves extremities. EXTREMITIES: RLE trace edema, LLE with wound dressing, distal NV status wnl. wound image reviewed. Results & Data Results & Data ([facility]) Vital Signs (Past 12 Hours) Vital Signs Temp Pulse Resp BP Pulse Ox O2 Del Method 06/30/22 15:49 36.7 C 58 L 18 136/69 96 Room Air 06/30/22 09:32 66 146/72 H 97 06/30/22 07:22 Room Air 06/30/22 07:43 36.4 C L 55 L 16 117/66 96 Room Air Laboratory Results Short CBC 06/30/22 Range/Units 06:01 WBC 2.95 L (4.8-10.8) K/ul Hgb 11.6 L (12.0-16.0) g/dl Hct 33.9 L (34.1-44.9) % Plt Count 49 L (130-400) K/uL BMP 06/30/22 06:01 Sodium 139 Potassium 3.6 Chloride 112 H Carbon Dioxide 22 BUN 16 Creatinine 0.56 L Glucose 91 Calcium 8.7 Medications Administered Current Inpatient Medications Acetaminophen (Acetaminophen 325 Mg Tab) 650 mg PO Q6H PRN PRN Reason: Pain Stop: 07/29/22 20:16 Last Admin: 06/29/22 20:40 Dose: 650 mg Acetaminophen/Codeine Phosphate (Acetaminophen W/Codeine #3 1 Tab) 1 tab PO Q4H PRN PRN Reason: Pain Stop: 07/25/22 22:54 Last Admin: 06/27/22 23:48 Dose: 1 tab Amphetamine/Dextroamphetamine (Amphetamine Asp/Sulf/Dextramph 10 Mg Tab) 10 mg PO 0800,1400 [facility] Stop: 07/10/22 07:59 Last Admin: 06/30/22 15:46 Dose: 10 mg Promethazine HCl 6.25 mg/ (Sodium Chloride) 50.25 mls @ 201 mls/hr IV Q6H PRN PRN Reason: Nausea And Vomiting Stop: 07/25/22 22:54 Levofloxacin/Dextrose (Levaquin/D5w) 750 mg in 150 mls @ 100 mls/hr IV Q24H [facility] Stop: 07/11/22 16:59 Last Admin: 06/30/22 17:23 Dose: 100 mls/hr Vancomycin HCl 1,250 mg/ (Sodium Chloride) 275 mls @ 200 mls/hr IV Q12H [facility] Stop: 07/12/22 12:59 Last Infusion: 06/30/22 15:50 Dose: Infused Lactobacillus Acidophilus (Advanced Probiotic 1250 Mg Capsule) 2 cap PO DAILY [facility] Stop: 07/27/22 08:59 Last Admin: 06/30/22 09:27 Dose: 2 cap Metoprolol Tartrate (Metoprolol Tartrate 100 Mg Tab) 100 mg PO BID [facility] Stop: 07/26/22 08:59 Last Admin: 06/30/22 09:33 Dose: 100 mg Miscellaneous Information (Vancomycin Consult Active) 1 each N/A UD PRN PRN Reason: Consult Stop: 07/26/22 15:06 Multivitamins/Minerals (Cerovite Adv Formula Tab) 1 tab PO DAILY [facility] Stop: 07/26/22 08:59 Last Admin: 06/30/22 09:27 Dose: 1 tab Raspberry (Raspberry Syrup 5 Ml Udp) 5 ml PO DAILY [facility] Stop: 07/06/22 08:59 Last Admin: 06/30/22 09:26 Dose: 5 ml Vancomycin HCl (Vancomycin Hcl 125 Mg/2.5ml Soln) 125 mg PO DAILY [facility] Stop: 07/06/22 08:59 Last Admin: 06/30/22 09:27 Dose: 125 mg
[2022-07-01] MEDS: VANCOMYCIN HCL 1,250 MG in SODIUM CHLORIDE 0.9% 250 ML IV SCH ×2 (01:52→14:23)
[2022-07-01] MEDS: VANCOMYCIN HCL 125 MG/2.5ML SOLN PO SCH (09:23)
[2022-07-01] MEDS: RASPBERRY SYRUP 5 ML UDP PO SCH (09:23)
[2022-07-01] MEDS: METOPROLOL TARTRATE 100 MG TAB PO SCH ×2 (09:24→21:52)
[2022-07-01] MEDS: ADVANCED PROBIOTIC 1250 MG CAPSULE PO SCH (09:24)
[2022-07-01] MEDS: CEROVITE ADV FORMULA TAB PO SCH (09:24)
[2022-07-01] MEDS: AMPHETAMINE ASP/SULF/DEXTRAMPH 10 MG TAB PO SCH ×2 (09:35→14:50)
[2022-07-01] MEDS: DAPTOmycin 600 MG in SYRINGE 0 ML IV SCH (14:50)
--- NOTE | 2022-07-01 16:10 | Hospitalist Progress Note ---
Date of Service July 01, 2022 Assessment & Plan (1) Bacteremia: Plan: - Recent history of traumatic left tibia fracture 04/2022: Per ortho, NWB x LLE, maintain splint, f/u w/ ortho as OP. - Lt foot wound, infected and likely source of bacteremia - Lt Foot Culture 06/24, MRSA. - 06/26 blood culture with Acinetobacter baumannii and MRSA bacteremia - started on Vancomycin IV and levofloxacin 06/27/2022 - changed to dapto 07/01/2022 - Wound care. Ortho on board, appreciate recs. - of note, patient with history of penicillin anaphylaxis but reports being able to use amoxicillin later on -->Per pharmacy Pt had received cefepime and ceftriaxone in the past. - D consult - Echo w/ no evidence of mass or vegetation/EF 60-65%. - 06/28/2022 blood Cx w/ NGTD - Patient to have 6 weeks antibiotics with daptomycin 600mg IV daily, levofloxacin daily po - weekly CBC, CMP, CK while getting abx - home infusion being set up by CM (2) Osteomyelitis: Plan: - Left foot - see plan above Plan Ambulatory dysfunction Recent history of traumatic left tibia fracture 04/2022: Per ortho, NWB x LLE, maintain splint, f/u w/ ortho as OP. 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 Patient admitted for placement - pending acceptance to [facility] vs SNF pending patient agreement PT/OT, CM on board. Abnormal UA/likely UTI: Pt w/ no urinary complain. Admitting U Cx w/ K. pneumoniae - no abx for now but levaquin should be adequate Other chronic medical conditions: HTN, COPD, cirrhosis of unclear etiology, ADD/mood disorder/schizophrenia, recurrent C. difficile on chronic vancomycin suppressive treatment, chronic anemia at baseline, chronic thrombocytopenia secondary to cirrhosis, past tobacco abuse. Continue with/resume home meds as and when appropriate. DVT prophylaxis: SCDs, thrombocytopenia. Full code Patient's Sidney Dorantes [[phone]]. Dispo: pending ID eval and negative 06/28/2022 blood culture. Reece Ramos MD [facility] Medicine Admission and Anticipated Discharge Date Admission Date: June 26, 2022 Subjective The patient is a 62 year old woman with pmh HTN, COPD, cryptogenic cirrhosis, ADD/mood disorder/schizophrenia, recurrent C diff con chronic po vancomycin suppression therapy, anemia, recent left tib/fib fracture presented because not able to care for patient and she was found to have LLE wound infection and subsequently bacteremia with MRSA and Acinetobacter baumannii started on vancomycin and levaquin with improvement. Pending ID consult. Patient pending home health for home infusion for 6 weeks daptomycin and po levofloxacin until 08/06/2022, per ID. Patient was lying in bed, on room air, NAD, no new acute events overnight. Pt reports feeling better, strength back. Pt appears satisfied. Patient denies headache/dizziness/sore throat/cough/chest pain/belly pain/other review of symptoms. Review of Systems Review of Systems: As per HPI, all other systems reviewed and negative Physical Exam Physical Exam: GENERAL: Alert and oriented x3. NAD, on RA. [place]. HEENT: No pallor, no icterus. Pupils equal, round and reactive to light. Oral mucosa moist. NECK: No JVD, no neck masses. HEART: S1 and S2 heard. Regular rate and rhythm. No murmur, no gallop. RESPIRATORY SYSTEM: Normal AP diameter. No accessory muscle use. No wheezing, no crackles. ABDOMEN: Soft, bowel sounds present, nontender, no distention. CENTRAL NERVOUS SYSTEM: No facial droop. Speech is clear. Obeys simple commands. Moves extremities. EXTREMITIES: RLE trace edema, LLE with wound dressing, distal NV status wnl. wound image reviewed. Results & Data Results & Data ([facility]) Vital Signs (Past 12 Hours) Vital Signs Temp Pulse Resp BP Pulse Ox O2 Del Method 07/01/22 09:30 Room Air 07/01/22 07:10 37.1 C 55 L 16 128/77 95 Room Air Medications Administered Current Inpatient Medications Acetaminophen (Acetaminophen 325 Mg Tab) 650 mg PO Q6H PRN PRN Reason: Pain Stop: 07/29/22 20:16 Last Admin: 06/29/22 20:40 Dose: 650 mg Acetaminophen/Codeine Phosphate (Acetaminophen W/Codeine #3 1 Tab) 1 tab PO Q4H PRN PRN Reason: Pain Stop: 07/25/22 22:54 Last Admin: 06/27/22 23:48 Dose: 1 tab Amphetamine/Dextroamphetamine (Amphetamine Asp/Sulf/Dextramph 10 Mg Tab) 10 mg PO 0800,1400 [facility] Stop: 07/10/22 07:59 Last Admin: 07/01/22 14:50 Dose: 10 mg Promethazine HCl 6.25 mg/ (Sodium Chloride) 50.25 mls @ 201 mls/hr IV Q6H PRN PRN Reason: Nausea And Vomiting Stop: 07/25/22 22:54 Daptomycin 600 mg/ Syringe 12 mls @ 6 mls/min IV Q24H [facility]; Protocol Stop: 07/15/22 14:59 Last Admin: 07/01/22 14:50 Dose: 6 mls/min Lactobacillus Acidophilus (Advanced Probiotic 1250 Mg Capsule) 2 cap PO DAILY [facility] Stop: 07/27/22 08:59 Last Admin: 07/01/22 09:24 Dose: 2 cap Levofloxacin (Levofloxacin 750 Mg Tab) 750 mg PO Q24H [facility]; Protocol Stop: 07/15/22 16:59 Metoprolol Tartrate (Metoprolol Tartrate 100 Mg Tab) 100 mg PO BID [facility] E Stop: 07/26/22 08:59 Last Admin: 07/01/22 09:24 Dose: Not Given Multivitamins/Minerals (Cerovite Adv Formula Tab) 1 tab PO DAILY [facility] Stop: 07/26/22 08:59 Last Admin: 07/01/22 09:24 Dose: 1 tab Raspberry (Raspberry Syrup 5 Ml Udp) 5 ml PO DAILY [facility] Stop: 07/06/22 08:59 Last Admin: 07/01/22 09:23 Dose: 5 ml Vancomycin HCl (Vancomycin Hcl 125 Mg/2.5ml Soln) 125 mg PO DAILY [facility] Stop: 07/06/22 08:59 Last Admin: 07/01/22 09:23 Dose: 125 mg
[2022-07-01] MEDS: levoFLOXacin 750 MG TAB PO SCH (17:14)
[2022-07-02 06:50] LABS: Basophils # (auto) 0.03 K/uL (0-0.2); Eosinophils # (auto) 0.26 K/uL (0-0.50); Eosinophils % (auto) 8.6 %; Hematocrit (blood only) 34.2 % (34.1-44.9); Hemoglobin 11.4 g/dl (12.0-16.0); Lymphocytes # (auto) 0.56 K/uL (1.2-3.4); Lymphocytes % (auto) 18.5 %; Mean Platelet Volume 12.9 fL (9.4-12.3); Monocytes % (auto) 9.9 %; Neutrophils # (auto) 1.88 K/uL (1.4-6.5); Platelet Count 49 K/uL (130-400); White Blood Count 3.03 K/ul (4.8-10.8)
[2022-07-02 07:15] LABS: Echinocytes 1+; Mean Corpuscular Hemoglobin 31.9 pg (25.0-34.0); Mean Corpuscular Hgb Conc 33.3 g/dL (32.0-36.0); Mean Corpuscular Volume 95.8 fL (80.0-100.0); Ovalocytes 1+; RDW Coefficient of Variation 15.9 % (11.5-14.5); RDW Standard Deviation 54.4 fL (36.4-46.3); Red Blood Count 3.57 M/uL (3.93-5.22); Tear Drop Cells 1+
[2022-07-02 07:22] LABS: Albumin Globulin Ratio 1.2 (0.9-2); Albumin Level 3.1 gm/dl (3.4-5.0); Bilirubin,Total 0.8 mg/dl (0.2-1.0); Calcium 8.7 mg/dl (8.5-10.1); Creatinine Clr Calc Pharmacy 90.8 ml/min; Est GFR (African American) 110.8 ml/min; Est GFR (Non-African American) 95.6 ml/min; Globulin 2.5 gm/dl (2.5-4.0); Magnesium 1.7 mg/dl (1.7-2.4); Phosphorus 3.6 mg/dl (2.5-4.9); Potassium 3.7 mmol/L (3.5-5.1); Total Protein 5.6 gm/dl (6.0-8.3)
[2022-07-02] MEDS: MAGNESIUM SULFATE / D5W 1 GM/100 ML BAG IV SCH ×2 (08:18→11:21)
[2022-07-02] MEDS: AMPHETAMINE ASP/SULF/DEXTRAMPH 10 MG TAB PO SCH ×2 (08:18→14:12)
[2022-07-02] MEDS: VANCOMYCIN HCL 125 MG/2.5ML SOLN PO SCH (08:18)
[2022-07-02] MEDS: CEROVITE ADV FORMULA TAB PO SCH (08:19)
[2022-07-02] MEDS: METOPROLOL TARTRATE 100 MG TAB PO SCH ×2 (08:19→20:57)
[2022-07-02] MEDS: RASPBERRY SYRUP 5 ML UDP PO SCH (08:19)
[2022-07-02] MEDS: ADVANCED PROBIOTIC 1250 MG CAPSULE PO SCH (08:19)
--- NOTE | 2022-07-02 10:52 | Hospitalist Progress Note ---
Date of Service July 02, 2022 Assessment & Plan (1) Bacteremia: Plan: - Recent history of traumatic left tibia fracture 04/2022: Per ortho, NWB x LLE, maintain splint, f/u w/ ortho as OP. - Lt foot wound, infected and likely source of bacteremia - Lt Foot Culture 06/24, MRSA. - 06/26 blood culture with Acinetobacter baumannii and MRSA bacteremia - started on Vancomycin IV and levofloxacin 06/27/2022 - changed to dapto 07/01/2022 - Wound care. Ortho on board, appreciate recs. - of note, patient with history of penicillin anaphylaxis but reports being able to use amoxicillin later on -->Per pharmacy Pt had received cefepime and ceftriaxone in the past. - D consult - Echo w/ no evidence of mass or vegetation/EF 60-65%. - 06/28/2022 blood Cx w/ NGTD - Patient to have 6 weeks antibiotics with daptomycin 600mg IV daily, levofloxacin daily po until 08/06/2022 per ID - weekly CBC, CMP, CK while getting abx - for PICC today - consent obtained - home infusion being set up by CM - likely discharge 07/03/2022 as HH cannot meet patient until Tuesday07/04/2022 (2) Osteomyelitis: Plan: - Left foot - see plan above Plan Ambulatory dysfunction Recent history of traumatic left tibia fracture 04/2022: Per ortho, NWB x LLE, maintain splint, f/u w/ ortho as OP. 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 Patient to return home with HH and home infusion for ongoing antiobiotic therapy PT/OT, CM on board. Abnormal UA/likely UTI: Pt w/ no urinary complain. Admitting U Cx w/ K. 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 Continue with/resume home meds as and when appropriate. DVT prophylaxis: SCDs, thrombocytopenia. Full code Patient's Sidney Dorantes [[phone]]. Dispo: home likely 07/03/2022 with HH and home infusion Reece Ramos MD [facility] Medicine Admission and Anticipated Discharge Date Admission Date: June 26, 2022 Subjective The patient is a 62 year old woman with pmh HTN, COPD, cryptogenic cirrhosis, ADD/mood disorder/schizophrenia, recurrent C diff con chronic po vancomycin suppression therapy, anemia, recent left tib/fib fracture presented because not able to care for patient and she was found to have LLE wound infection and subsequently bacteremia with MRSA and Acinetobacter baumannii started on vancomycin and levaquin with improvement. Pending ID consult. Patient pending home health for home infusion for 6 weeks daptomycin and po levofloxacin until 08/06/2022, per ID. Patient was lying in bed, on room air, NAD, no new acute events overnight. Pt reports feeling better, strength back. Pt appears satisfied. Patient denies headache/dizziness/sore throat/cough/chest pain/belly pain/other review of symptoms. Review of Systems Review of Systems: As per HPI, all other systems reviewed and negative Physical Exam Physical Exam: GENERAL: Alert and oriented x3. NAD, on RA. [place]. HEENT: No pallor, no icterus. Pupils equal, round and reactive to light. Oral mucosa moist. NECK: No JVD, no neck masses. HEART: S1 and S2 heard. Regular rate and rhythm. No murmur, no gallop. RESPIRATORY SYSTEM: Normal AP diameter. No accessory muscle use. No wheezing, no crackles. ABDOMEN: Soft, bowel sounds present, nontender, no distention. CENTRAL NERVOUS SYSTEM: No facial droop. Speech is clear. Obeys simple commands. Moves extremities. EXTREMITIES: RLE trace edema, LLE with wound dressing, distal NV status wnl. wound image reviewed. Results & Data Results & Data ([facility]) Vital Signs (Past 12 Hours) Vital Signs Temp Pulse Resp BP BP Pulse Ox O2 Del Method 07/02/22 07:09 36.9 C 62 16 125/69 94 Room Air 07/01/22 23:22 101/52 L 07/01/22 23:14 36.5 C 55 L 16 93/52 L 95/54 L 95 Room Air Laboratory Results Short CBC 07/02/22 Range/Units 06:32 WBC 3.03 L (4.8-10.8) K/ul Hgb 11.4 L (12.0-16.0) g/dl Hct 34.2 (34.1-44.9) % Plt Count 49 L (130-400) K/uL BMP 07/02/22 06:32 Sodium 140 Potassium 3.7 Chloride 112 H Carbon Dioxide 24 BUN 16 Creatinine 0.64 Glucose 86 Calcium 8.7 Liver Function 07/02/22 Range/Units 06:32 Total Bilirubin 0.8 (0.2-1.0) mg/dl AST 33 (13-39) U/L ALT 25 (7-52) U/L Alkaline Phosphatase 102 (34-104) U/L Albumin 3.1 L (3.4-5.0) gm/dl Medications Administered Current Inpatient Medications Acetaminophen (Acetaminophen 325 Mg Tab) 650 mg PO Q6H PRN PRN Reason: Pain Stop: 07/29/22 20:16 Last Admin: 06/29/22 20:40 Dose: 650 mg Acetaminophen/Codeine Phosphate (Acetaminophen W/Codeine #3 1 Tab) 1 tab PO Q4H PRN PRN Reason: Pain Stop: 07/25/22 22:54 Last Admin: 06/27/22 23:48 Dose: 1 tab Amphetamine/Dextroamphetamine (Amphetamine Asp/Sulf/Dextramph 10 Mg Tab) 10 mg PO 0800,1400 [facility] E Stop: 07/10/22 07:59 Last Admin: 07/02/22 08:18 Dose: 10 mg Promethazine HCl 6.25 mg/ (Sodium Chloride) 50.25 mls @ 201 mls/hr IV Q6H PRN PRN Reason: Nausea And Vomiting Stop: 07/25/22 22:54 Daptomycin 600 mg/ Syringe 12 mls @ 6 mls/min IV Q24H [facility]; Protocol Stop: 07/15/22 14:59 Last Admin: 07/01/22 14:50 Dose: 6 mls/min Magnesium Sulfate/Dextrose (Magnesium Sulfate / D5w) 1 gm in 100 mls @ 50 mls/hr IV Q2H [facility] E Stop: 07/02/22 11:44 Last Infusion: 07/02/22 10:24 Dose: Infused Lactobacillus Acidophilus (Advanced Probiotic 1250 Mg Capsule) 2 cap PO DAILY [facility] E Stop: 07/27/22 08:59 Last Admin: 07/02/22 08:19 Dose: 2 cap Levofloxacin (Levofloxacin 750 Mg Tab) 750 mg PO Q24H [facility]; Protocol Stop: 07/15/22 16:59 Last Admin: 07/01/22 17:14 Dose: 750 mg Metoprolol Tartrate (Metoprolol Tartrate 100 Mg Tab) 100 mg PO BID [facility] Stop: 07/26/22 08:59 Last Admin: 07/02/22 08:19 Dose: 100 mg Multivitamins/Minerals (Cerovite Adv Formula Tab) 1 tab PO DAILY [facility] E Stop: 07/26/22 08:59 Last Admin: 07/02/22 08:19 Dose: 1 tab Raspberry (Raspberry Syrup 5 Ml Udp) 5 ml PO DAILY [facility] Stop: 07/06/22 08:59 Last Admin: 07/02/22 08:19 Dose: 5 ml Vancomycin HCl (Vancomycin Hcl 125 Mg/2.5ml Soln) 125 mg PO DAILY [facility] Stop: 07/06/22 08:59 Last Admin: 07/02/22 08:18 Dose: 125 mg
[2022-07-02] MEDS ORDERED: VANCOMYCIN LEVEL ONE (12:30)
[2022-07-02] MEDS: DAPTOmycin 600 MG in SYRINGE 0 ML IV SCH (15:27)
[2022-07-02] MEDS: levoFLOXacin 750 MG TAB PO SCH (16:12)
--- NOTE | 2022-07-02 18:07 | Progress Notes ---
DATE OF SERVICE: 07/02/2022. Patient is doing well. She is able to bend her knee, move her ankle and lift her leg. Her pain is m inimal. Her foot culture grew out MRSA. She is on IV antibiotics. She is to be discharged home. C ontinue nonweightbearing on the left leg. She can have PT for knee and ankle range of motion. She w ill follow up with me in 3-4 weeks for a recheck and will follow up with wound care. Job ID: [id number]
--- NOTE | 2022-07-02 19:15 | Progress Notes ---
DATE OF SERVICE: 07/02/2022 Dee is doing well. She is able to bend her knee and move her ankle and lift her leg. Her pain is m inimal. Her foot culture grew out MRSA. She is on IV antibiotics. She is to be discharged home. C ontinue nonweightbearing on the left leg. She can have PT for knee and ankle range of motion. She w ill follow up with me in 3-4 weeks for a recheck and will follow up with wound care. Job ID: [id number]
[2022-07-03] MEDS: RASPBERRY SYRUP 5 ML UDP PO SCH (07:53)
[2022-07-03] MEDS: AMPHETAMINE ASP/SULF/DEXTRAMPH 10 MG TAB PO SCH (07:53)
[2022-07-03] MEDS: VANCOMYCIN HCL 125 MG/2.5ML SOLN PO SCH (07:53)
[2022-07-03] MEDS: CEROVITE ADV FORMULA TAB PO SCH (08:01)
[2022-07-03] MEDS: ADVANCED PROBIOTIC 1250 MG CAPSULE PO SCH (08:02)
[2022-07-03] MEDS: METOPROLOL TARTRATE 100 MG TAB PO SCH (08:02)
--- NOTE | 2022-07-03 09:15 | Orthopedic Progress Note ---
Date of Service July 03, 2022 Assessment & Plan (1) Pressure ulcer of left leg, stage 3: Plan: Patient's dressings were removed on the foot and ankle, and new dressings were applied, covering her ulceration. Importance of keeping this area clean and protected was emphasized to the patient. She will need to follow-up with the wound care center this week to have her wounds redressed. I will see if case management can arrange for an appointment. Importance of elevating the leg was discussed with the patient as well. She is scheduled to start IV infusions at home. This has been arranged through case management and [facility] home health is on board for teaching. (2) Fracture of proximal end of left tibia and fibula: Plan: Continue nonweightbearing status on the left leg. She should use her walker for ambulation. Follow-up with Dr. Ogden on 07/19 as scheduled in the office. Admission and Anticipated Discharge Date Admission Date: June 26, 2022 Subjective Patient is seen in her room this morning. She is in good spirits. She is eating breakfast. Patient denies any discomfort. She states she is going home today. She denies any leg pain. She states she has been out of bed using her walker and denies putting any weight on the leg. No other complaints. Physical Exam Physical Exam: General: Well-developed, well-nourished, middle-aged female, in no acute distress. Sitting in bed. Alert and conversive. Eating breakfast. Skin: Warm and dry with fair turgor. She has excessively dry skin on the left lower leg. Scaling is present. Bandages on the left lower leg are intact across the ankle. Bandages across the foot disheveled and open. Her heel ulcer is exposed. There is a moderate amount of serous drainage on her pillowcase. Aquacel appears to be in place. Musculoskeletal: Patient has intact motor function of her hip, knee, and ankle, and toes. She is able to lift her leg. She has no discomfort with palpation around the foot. Neurologic: Gross sensation is intact across the foot and ankle by soft touch. Results & Data ([facility]) Vital Signs (Past 12 Hours) Vital Signs Temp Pulse Resp BP Pulse Ox O2 Del Method 07/03/22 07:39 36.6 C 62 16 129/70 96 Room Air
[2022-07-03] MEDS: DAPTOmycin 600 MG in SYRINGE 0 ML IV SCH (12:34)
--- NOTE | 2022-07-03 14:53 | Discharge Summary ---
Date of Service July 03, 2022 Admission HPI Per Admitting Provider History obtained from patient, family, and records. History somewhat limited from patient secondary to hearing impairment. 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 Last confinement 6 weeks ago for traumatic left proximal tibiofibular fracture secondary to fall while walking patient's dog. Nonoperative management consisting of left leg splinting/immobilization recommended for 8 weeks by orthopedics. Patient [facility] where she stayed for 2 weeks. Patient found it hard to take care of her patient since discharge to [facility] last month. recovering from back surgery from 5 months ago. Patient weaker than usual more than she will admit as per patient .. Patient denies chest pain, SOB, abdominal pain, dysuria symptoms. Left leg pain tolerable. Patient brought to ER for possible rehab placement. 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 Admission Exam Per Admitting Provider GENERAL: Comfortable, hard of hearing, no respiratory distress SKIN: Pallor, warm HEENT: Pale palpebral conjunctivae, no ptosis, dry buccal mucosa NECK : Supple, no tenderness CHEST : Decreased breath sounds, no tenderness HEART : Tachycardic, no obvious murmurs ABDOMEN: Some distention, nontender EXTREMITIES : LLE splint, minimal LLE tenderness no other conspicuous deformities noted NEUROLOGIC : Coherent, no facial asymmetry, hard of hearing, gait and stance not assessed Principal Diagnosis left LE osteomyelitis, tib/fib fracture, MRSA/Acinetobacter baumannii/haemol bacteremia Discharge Exam GENERAL: Alert and oriented x3. NAD, on RA. [facility]. HEENT: No pallor, no icterus. Pupils equal, round and reactive to light. Oral mucosa moist. NECK: No JVD, no neck masses. HEART: S1 and S2 heard. Regular rate and rhythm. No murmur, no gallop. RESPIRATORY SYSTEM: Normal AP diameter. No accessory muscle use. No wheezing, no crackles. ABDOMEN: Soft, bowel sounds present, nontender, no distention. CENTRAL NERVOUS SYSTEM: No facial droop. Speech is clear. Obeys simple commands. Moves extremities. EXTREMITIES: RLE trace edema, LLE with wound dressing, distal NV status wnl. wound image reviewed. Discharge Data Allergies Allergy/AdvReac Type Severity Reaction Status Date / Time Penicillins Allergy Severe ANAPHYLAXIS Verified 06/25/22 18:37 oxycodone [From Percodan] Allergy Unknown Unknown Verified 06/25/22 18:37 ketorolac [From Toradol] AdvReac Severe Breathing Verified 06/25/22 18:37 difficulty hydrocodone AdvReac Intermediate Nausea Verified 06/25/22 18:37 [From Lorcet (hydrocodone)] rifaximin [From Xifaxan] AdvReac Intermediate Dizzy, Verified 06/25/22 18:37 Fell down ursodiol AdvReac Intermediate Dizzy, Verified 06/25/22 18:37 Fell down Consultations 06/25/22 18:41 ED Decision to Admit Stat 06/27/22 07:29 Consult Infectious Diseases Routine 06/27/22 11:00 Consult Orthopedic Surgery Routine Hospital Course (1) Bacteremia: - Recent history of traumatic left tibia fracture 04/2022: Per ortho, NWB x LLE, maintain splint, f/u w/ ortho as OP. - Lt foot wound, infected and likely source of bacteremia - Lt Foot Culture 06/24, MRSA. - 06/26 blood culture with Acinetobacter baumannii and MRSA bacteremia - started on Vancomycin IV and levofloxacin 06/27/2022 - changed to dapto 07/01/2022 - Wound care. Ortho on board, appreciate recs. - of note, patient with history of penicillin anaphylaxis but reports being able to use amoxicillin later on -->Per pharmacy Pt had received cefepime and ceftriaxone in the past. - D consult - Echo w/ no evidence of mass or vegetation/EF 60-65%. - 06/28/2022 blood Cx w/ NGTD - Patient to have 6 weeks antibiotics with daptomycin 600mg IV daily, levofloxacin daily po until 08/06/2022 per ID - weekly CBC, CMP, CK while getting abx - for PICC today - consent obtained - home infusion being set up by CM - likely discharge 07/03/2022 as HH cannot meet patient until Tuesday07/04/2022 (2) Osteomyelitis: - Left foot - see plan above Plan Ambulatory dysfunction Recent history of traumatic left tibia fracture 04/2022: Per ortho, NWB x LLE, maintain splint, f/u w/ ortho as OP. 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 Patient to return home with HH and home infusion for ongoing antiobiotic therapy PT/OT, CM on board. Abnormal UA/likely UTI: Pt w/ no urinary complain. Admitting U Cx w/ K. 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 Continue with/resume home meds as and when appropriate. DVT prophylaxis: SCDs, thrombocytopenia. Full code Patient's Sidney Dorantes [[phone]]. Dispo: home likely 07/03/2022 with HH and home infusion Reece Ramos MD [facility] Medicine Home Health Attestation I certify that this patient is under my care and that I, or a physicians dental office assistant working with me, had a face to-face encounter that meets the home health [id number] encounter requirements with this patient. The encounter with the patient was in whole, or in part, for the following medical condition, which is the primary reason for home health care (list medical condition): home infusion for prolonged antibiotics to treat osteomyelitis and bacteremia I certify that, based on my findings, the following services are medically necessary home health services: home antibiotic infusion My clinical findings support the need for the above services because: patient needs assistance with home infusion and maintenance Further, I certify that my clinical findings support that this patient is homebound (i.e. absences from home require considerable and taxing effort and are for medical reasons or adventism services or infrequently or of short duration when for other reasons) because: patient is wheelchair bound and needs assistance with medical management Certification for Home Health Services: Based on the above findings, I certify that this patient is confined to the home and needs intermittent care home care, physical therapy and/or speech therapy or continues to need occupational therapy. The patient is under my care, and I have initiated the establishment of the plan of care. This patient will be followed by a physician who will periodically review the plan of care. Total Time Total Time Spent Total Time Spent (In Minutes): 20 Total Time Includes: Examination of the Patient, Discharge Planning and Medi cation Reconciliation Discharge Plan Discharge Items Patient Disposition: Home - Home Health Services Reason For Visit: AMB DYSFUNCTION (PX REQUESTING NOT TO BE PLACED ON Discharge Diagnosis: Left leg osteomyelitis and bacteremia Activity: As commented below Weightbearing: Left non-weightbearing Non-emergency contact: Primary Care Provider, Surgeon and Specialist Call non-emergency contact if: you have any medication questions, your symptoms worsen, your pain is worsening and you have a fever Follow-up/Referrals: Jersey Ortiz DO [Primary Care Provider] - (Date & Time 07/08/2022 12:20 PM Provider Silvia Cortes PA-C Department [facility] ) Elias Ogden MD [Surgeon] - 07/19/22 12:00 pm Ranjit Nam DO [Physician] - Diet: Heart Healthy Agustin Attending Provider Instructions: You were admitted for left leg cellulitis, found to have osteomyelitis requiring surgical intervention with orthopedic surgery. Infectious disease saw you and you will need IV antibiotics for 6 weeks until 08/06/2022 with Daptomycin. You got a PICC line and will get infusions at home with the help of home health aide and your family. You are to follow up with your orthopedic surgeon on 07/19/2022 as well as wound care which Case management is setting up for you. You will need labs every week that will be sent to your primary care doctor while you are on your antibiotics. Agustin Grief Counselor Provider Instructions: No weight on your left leg. You may ambulate with walker assistance keeping your weight off your left leg. You may do range of motion to your left knee, hip and ankle as tolerated. Strengthening exercises to left leg as tolerated. Ice to left knee as needed for pain/swelling. Elevate left leg above your heart as needed for pain/swelling. Wound care for left leg wounds as per wound care nurse/wound clinic. PT/OT Pending Studies at Discharge: No Stand-Alone Forms: My [employer], Smoking Cessation Medications and DC Order Prescriptions: New levofloxacin 750 mg Tablet 750 mg PO Q24H Qty: 34 0RF daptomycin 500 mg recon soln 600 mg IV DAILY Qty: 10 0RF Rx Instructions: administer over 30 mins Continued aspirin 325 mg tablet,delayed release (DR/EC) 325 mg PO DAILY PRN (Reason: pain) acetaminophen-codeine 300-30 mg tablet 2 tab PO .Q4-6H PRN (Reason: Pain) dextroamphetamine-amphetamine 10 mg tablet 10 mg PO BID [id number] Tablet 1 tab PO DAILY cholecalciferol (vitamin D3) [Vitamin D3] 125 mcg (5,000 unit) Tablet 125 mcg PO QAM Probiotic 100 billion cell Capsule 1 cap PO QAM metoprolol tartrate 100 mg tablet 100 mg PO BID potassium chloride 10 mEq capsule, extended release 10 meq PO BID vancomycin 125 mg capsule 125 mg PO DAILY Rx Instructions: ORDERED 06/03/22 FOR 30 DAYS SUPPLY. Discontinued furosemide 20 mg tablet 20 mg PO DAILY Rx Instructions: FILLED 06/21/22 Discharge Orders: Discharge Order (Routine); Ordered 07/03/22 Ordered By: Reece Chapman/Other Patient Handouts: Falls Prevent Adjust Living Space Admission Data Admit Date/Time: 06/26/22 12:36 Attending Provider: Reece Ramos Admit Provider: Eliel Birscoe Primary Care Provider: Jersey Ortiz Other Providers: [facility] ; Alok Sinha ; Shabbir Rose ; Luis Antonio Renteria ; Evin Samuel I. ; Waldemar Nayak II ; Dolly Vidales ; Faisal Díaz ; Ranjit Nam ; Carl Ortiz ; [facility] Other Interventions: Discharge Summary Assessment (RN) Last Done: 07/03/22 12:55
== END 2022-07-03 14:34 | disposition home health service (06) | DRG 871 ==
LOC: 3E 13:54 → ED 13:54 → 3E 22:13 → SUATTDRO 06-26 12:36

== ENCOUNTER 2023-02-13 22:33 | Inpatient (IN) ==
[2023-02-13] MEDS ORDERED: fentaNYL citrate PF 100 MCG/2 ML VIAL IV PRN (22:46)
[2023-02-13] MEDS ORDERED: ONDANSETRON INJ 2 MG/ML 2 ML VIAL IV STA (22:46)
--- NOTE | 2023-02-13 22:53 | Emergency Department Note ---
History of Present Illness General Chief complaint: Fall Stated complaint: G.L. ART W/ HIP (rt) PAIN Time Seen by Provider: 02/13/23 22:34 History of Present Illness This 63-year-old female presents to the ER for fall complaining of right hip pain back pain and head injury who fell walking her dog. Patient states she fell from standing. Patient states everything hurts. Patient denies fevers, cough, congestion. She denies blood thinners. She is hard of hearing. Home Medications Medication Instructions Recorded Confirmed Type Lactobacillus 40-Bifidobact 2 cap PO HS 05/05/22 09/10/22 History 3-S.thermophilus 100 billion cell capsule (Probiotic) cholecalciferol (vitamin D3) 125 125 mcg PO QAM 05/05/22 09/10/22 History mcg (5,000 unit) tablet (Vitamin D3) dextroamphetamine-amphetamine 10 10 mg PO TID 05/05/22 09/10/22 History mg tablet metoprolol tartrate 100 mg tablet 100 mg PO BID 05/05/22 09/10/22 History vjxezwtywarj-jsehbwsb-lfgkfu tablet 1 tab PO DAILY 05/05/22 09/10/22 History potassium chloride 10 mEq 10 meq PO BID 05/05/22 09/10/22 History capsule,extended release vancomycin 125 mg capsule 125 mg PO QAM 06/24/22 09/10/22 History acetaminophen 300 mg-codeine 30 mg 1 tab PO BID PRN Pain,severe 06/25/22 09/10/22 History tablet magnesium oxide 400 mg PO BID 09/10/22 09/10/22 History polysaccharide iron complex 150 mg 150 mg PO DAILY 09/10/22 09/10/22 History iron capsule thiamine HCl (vitamin B1) 100 mg 100 mg PO DAILY 09/10/22 09/10/22 History tablet hydrochlorothiazide 25 mg tablet 25 mg PO DAILY 02/14/23 02/14/23 History Allergies Allergy/AdvReac Type Severity Reaction Status Date / Time Penicillins Allergy Severe ANAPHYLAXIS Verified 09/10/22 16:14 oxycodone [From Percodan] Allergy Unknown Unknown Verified 09/10/22 16:14 ketorolac [From Toradol] AdvReac Severe Breathing Verified 09/10/22 16:14 difficulty hydrocodone AdvReac Intermediate Nausea Verified 09/10/22 16:14 [From Lorcet (hydrocodone)] rifaximin [From Xifaxan] AdvReac Intermediate Dizzy, Verified 09/10/22 16:14 Fell down ursodiol AdvReac Intermediate Dizzy, Verified 09/10/22 16:14 Fell down Past Med/Surg History Medical History (Updated 02/14/23 @ 00:54 by Eleni Núñez PA-C) Bipolar disorder Cirrhosis Depression Emphysema of lung Based on imaging Failure of outpatient treatment History of CVA (cerebrovascular accident) Osteoporosis Pulmonary nodule 9 mm RML subsolid nodule CT chest 02/29/20. F/U CT recommended 3-6 months Schizophrenia Vitamin D deficiency Surgical History History of appendectomy History of shoulder surgery History of total hip replacement femur fracture one month later with repair, both in 2007 Status post open reduction and internal fixation (ORIF) of fracture Family History Father Myocardial infarction Mother Colorectal cancer Social History Smoking Status: Former smoker Tobacco Type: Cigarettes Cigarettes Per Day: 18; Second Hand Exposure: No; Hx Alcohol Use: No Hx Substance Use: No Preferred Language: [place] Communication Ability: Effective Education Site Manager Required: No Beliefs That Will Affect Care: None marital status: Current Living Situation: Spouse Current Living Situation Comment: Lives with Feels Safe at Home: No Is there a partner from a previous relationship who is making you feel unsafe now?: No Assistive Devices: Cane, Walker and Wheelchair Review of Systems A total of 10 systems reviewed and were otherwise negative Physical Exam Vital Signs Vital Signs - 24 hr 02/13/23 22:46 02/13/23 23:16 02/13/23 23:05 Temperature 35.5 C L Temperature Source Oral Pulse Rate 80 82 80 Pulse Rate from SpO2 Sensor Pulse Rhythm Irregular Regular Pulse Strength Normal Respiratory Rate 18 19 Respiratory Effort / Characteristics Non-Labored Respiratory Depth Normal Respiratory Pattern Regular Blood Pressure 147/65 H Blood Pressure Mean 92 Blood Pressure Position Lying Pulse Oximetry 95 98 Oxygen Delivery Method Room Air Room Air Sepsis Recent Fever Within 48 Hours No Sepsis New/Unexplained Change in Mental Status N/A Sepsis Action Taken by Nursing No Action Required 02/13/23 23:17 02/13/23 23:56 02/14/23 00:02 Temperature Temperature Source Pulse Rate 80 93 H Pulse Rate from SpO2 Sensor 80 88 94 H Pulse Rhythm Pulse Strength Respiratory Rate 20 26 H 22 Respiratory Effort / Characteristics Respiratory Depth Respiratory Pattern Blood Pressure 147/65 H Blood Pressure Mean 92 Blood Pressure Position Pulse Oximetry 98 92 94 Oxygen Delivery Method Sepsis Recent Fever Within 48 Hours Sepsis New/Unexplained Change in Mental Status Sepsis Action Taken by Nursing 02/14/23 00:30 02/14/23 01:01 02/14/23 01:11 Temperature Temperature Source Pulse Rate 92 H 99 H 98 H Pulse Rate from SpO2 Sensor 93 H 99 H 98 H Pulse Rhythm Pulse Strength Respiratory Rate 17 22 21 Respiratory Effort / Characteristics Respiratory Depth Respiratory Pattern Blood Pressure 124/60 Blood Pressure Mean 81 Blood Pressure Position Pulse Oximetry 97 96 95 Oxygen Delivery Method Sepsis Recent Fever Within 48 Hours Sepsis New/Unexplained Change in Mental Status Sepsis Action Taken by Nursing 02/14/23 01:31 Temperature Temperature Source Pulse Rate 101 H Pulse Rate from SpO2 Sensor 101 H Pulse Rhythm Pulse Strength Respiratory Rate 21 Respiratory Effort / Characteristics Respiratory Depth Respiratory Pattern Blood Pressure Blood Pressure Mean Blood Pressure Position Pulse Oximetry 95 Oxygen Delivery Method Sepsis Recent Fever Within 48 Hours Sepsis New/Unexplained Change in Mental Status Sepsis Action Taken by Nursing PHYSICAL EXAM: VITALS: Vitals are noted on the nurse's note and reviewed by myself. Vital signs stable. GENERAL: White female hard of hearing screaming at staff, in no acute distress, nondiaphoretic, well-developed well-nourished. SKIN: Pressure ulcer to left heel, the rest of the skin was without obvious l acerations or abrasions. Capillary reflex less than 2 seconds. HEAD: Normocephalic atraumatic. EARS: External auditory canals clear, tympanic membranes pearly kennedy without erythema or effusion bilaterally. No hemotympanums. No salas sign. No mastoid tenderness. EYES: Pupils equal round and reactive to light and accommodation. Conjunctivae without injection, sclerae without icterus. Extraocular movements intact. NOSE: Patent, turbinates without inflammation or discharge. No sinus tende rness. No septal hematoma or bleeding. FACE: No facial bone tenderness. Full range of motion of the jaw without tenderness. MOUTH: Mucous membranes moist. Pharynx without erythema or exudate. Uvula midline. Airway patent. Tongue does not deviate. NECK: Supple without nuchal rigidity. Cervical spine is nontender. Full range of motion of the neck without tenderness. No JVD. HEART: Regular rate and rhythm LUNGS: Clear to auscultation bilaterally without wheezes, rales or rhonchi. No dullness to percussion. No retractions or accessory muscle use. No chest wall tenderness. ABDOMEN: Positive bowel sounds x 4. Normal tympanic percussion. Soft, nontender, without masses or organomegaly. No guarding or rebound tenderness. MUSCULOSKELETAL: Diffuse spinal tenderness without step-offs. Right hip tender to palpation with concerns for fracture on exam as it is shortened and externa lly rotated. Full range of motion without tenderness to palpation in all other extremities. Peripheral pulses 2+. NEURO: Patient was alert and oriented to person place and time. Normal sensation to light and sharp touch. No focal neurological deficits. Course Administered Medications Discontinued Medications Fentanyl Citrate (Fentanyl Citrate 100 Mcg/2 Ml Vial) 50 mcg IV ONE PRN PRN Reason: Pain Last Admin: 02/13/23 23:12 Dose: 50 mcg Documented By: KI Sodium Chloride (Nss) 500 mls @ 999 mls/hr IV .Q31M MARIA E Stop: 02/13/23 23:30 Last Infusion: 02/14/23 00:33 Dose: 0 mls/hr Documented By: Admin: 02/13/23 23:12 Dose: 999 mls/hr Documented By: KI Ioversol (Optiray 350 100ml) 100 ml IV ONCE ONE Stop: 02/13/23 23:50 Last Admin: 02/13/23 23:49 Dose: 87 ml Documented By: [place] Ondansetron HCl (Ondansetron Inj 2 Mg/Ml 2 Ml Vial) 4 mg IV NOW STA Stop: 02/13/23 22:47 Last Admin: 02/13/23 23:11 Dose: 4 mg Documented By: KI Medical Decision Making Medical Records Attestation: I reviewed the patient's medical records. Home Medications Current Medication List: was personally reviewed by me Laboratory Data Attestation: I reviewed the patient's lab results. 02/13/23 22:40 02/13/23 22:40 Lab Results 02/13/23 02/13/23 02/13/23 Range/Units 22:40 22:40 22:40 WBC 6.23 (4.8-10.8) K/ul RBC 4.41 (4.20-5.40) M/uL Hgb 15.0 (12.0-16.0) g/dl POC Hgb (12.0-16.0) g/dl Hct 42.5 (37.0-47.0) % POC Hct (37-47) % MCV 96.4 (80.0-100.0) fL MCH 34.0 (25.0-34.0) pg MCHC 35.3 (32.0-36.0) g/dL RDW Std Deviation 53.2 H (36.4-46.3) fL RDW Coeff of Dewayne 15.0 H (11.5-14.5) % Plt Count 80 L (130-400) K/uL MPV 12.3 (9.4-12.4) fL Immature Gran % (Auto) 1.3 % Neut % (Auto) 72.4 % Lymph % (Auto) 15.4 % [place] % (Auto) 6.9 % Eos % (Auto) 3.2 % Baso % (Auto) 0.8 % Neut # (Auto) 4.51 (1.40-6.50) K/uL Lymph # (Auto) 0.96 L (1.2-3.4) K/uL [place] # (Auto) 0.43 (0.11-0.59) K/uL Eos # (Auto) 0.20 (0-0.50) K/uL Baso # (Auto) 0.05 (0-0.2) K/uL Immature Gran # (Auto) 0.08 (0.01-0.20) K/uL POC Sodium (135-144) mmol/L Sodium 142 (136-145) mmol/L POC Potassium (3.3-5.0) mmol/L Potassium 3.1 L (3.5-5.1) mmol/L POC Chloride (101-112) mmol/L Chloride 107 (98-107) mmol/L Carbon Dioxide 23 (21-32) mmol/L POC Total CO2 (24-31) mmol/L Anion Gap 12 H (3-11) POC Anion Gap (16-25) mmol/L POC BUN (7-18) mg/dl BUN 17 (6-23) mg/dl Creatinine 0.60 (0.6-1.2) mg/dl POC Creatinine (0.6-1.3) mg/dl Est Cr Clr Drug Dosing 102.9 ml/min Est GFR ( Amer) 112.4 ml/min Est GFR (Non-Af Amer) 97.0 ml/min BUN/Creatinine Ratio 28.3 H (10-20) Glucose 93 (70-99(Fasting)) mg/dl POC Glucose (other) (70-99) mg/dl Calcium 9.8 (8.5-10.1) mg/dl POC Ioniz Calcium Ramila (1.12-1.32) mmol/l Total Bilirubin 1.2 H (0.2-1.0) mg/dl AST 47 H (13-39) U/L ALT 37 (7-52) U/L Alkaline Phosphatase 149 H (34-104) U/L Total Creatine Kinase 90 (26-192) U/L Troponin I High Sens 10.9 (0-14) pg/ml Total Protein 7.5 (6.0-8.3) gm/dl Albumin 3.9 (3.4-5.0) gm/dl Globulin 3.6 (2.5-4.0) gm/dl Albumin/Globulin Ratio 1.1 (0.9-2) Urine Color Urine Appearance (Clear) Urine pH (4.5-7.5) Ur Specific [place] (1.000-1.030) Urine Protein (Negative) Urine Glucose (UA) (Negative) Urine Ketones (Negative) Urine Blood (Negative) Urine Nitrite (Negative) Urine Bilirubin (Negative) Urine Urobilinogen (Negative) Ur Leukocyte Esterase (Negative) Urine WBC (Auto) (0-5) /hpf Urine RBC (Auto) (0-4) /hpf U Hyaline Cast (Auto) (0-5) /lpf U Epithel Cells (Auto) (0-5) /lpf Urine Bacteria (Auto) (Negative) Ethyl Alcohol mg/dL < 10.0 (<10.0) mg/dl SARS-CoV-2, RNA, NAAT (NEGATIVE) Blood Type 02/13/23 02/13/23 02/13/23 Range/Units 23:02 23:06 23:19 WBC (4.8-10.8) K/ul RBC (4.20-5.40) M/uL Hgb (12.0-16.0) g/dl POC Hgb 14.6 (12.0-16.0) g/dl Hct (37.0-47.0) % POC Hct 43 (37-47) % MCV (80.0-100.0) fL MCH (25.0-34.0) pg MCHC (32.0-36.0) g/dL RDW Std Deviation (36.4-46.3) fL RDW Coeff of Dewayne (11.5-14.5) % Plt Count (130-400) K/uL MPV (9.4-12.4) fL Immature Gran % (Auto) % Neut % (Auto) % Lymph % (Auto) % [place] % (Auto) % Eos % (Auto) % Baso % (Auto) % Neut # (Auto) (1.40-6.50) K/uL Lymph # (Auto) (1.2-3.4) K/uL [place] # (Auto) (0.11-0.59) K/uL Eos # (Auto) (0-0.50) K/uL Baso # (Auto) (0-0.2) K/uL Immature Gran # (Auto) (0.01-0.20) K/uL POC Sodium 143 (135-144) mmol/L Sodium (136-145) mmol/L POC Potassium 3.2 L (3.3-5.0) mmol/L Potassium (3.5-5.1) mmol/L POC Chloride 108 (101-112) mmol/L Chloride (98-107) mmol/L Carbon Dioxide (21-32) mmol/L POC Total CO2 22 L (24-31) mmol/L Anion Gap (3-11) POC Anion Gap 17.0 (16-25) mmol/L POC BUN 18 (7-18) mg/dl BUN (6-23) mg/dl Creatinine (0.6-1.2) mg/dl POC Creatinine 0.6 (0.6-1.3) mg/dl Est Cr Clr Drug Dosing ml/min Est GFR ( Amer) ml/min Est GFR (Non-Af Amer) ml/min BUN/Creatinine Ratio (10-20) Glucose (70-99(Fasting)) mg/dl POC Glucose (other) 96 (70-99) mg/dl Calcium (8.5-10.1) mg/dl POC Ioniz Calcium Ramila 1.17 (1.12-1.32) mmol/l Total Bilirubin (0.2-1.0) mg/dl AST (13-39) U/L ALT (7-52) U/L Alkaline Phosphatase (34-104) U/L Total Creatine Kinase (26-192) U/L Troponin I High Sens (0-14) pg/ml Total Protein (6.0-8.3) gm/dl Albumin (3.4-5.0) gm/dl Globulin (2.5-4.0) gm/dl Albumin/Globulin Ratio (0.9-2) Urine Color Urine Appearance (Clear) Urine pH (4.5-7.5) Ur Specific [place] (1.000-1.030) Urine Protein (Negative) Urine Glucose (UA) (Negative) Urine Ketones (Negative) Urine Blood (Negative) Urine Nitrite (Negative) Urine Bilirubin (Negative) Urine Urobilinogen (Negative) Ur Leukocyte Esterase (Negative) Urine WBC (Auto) (0-5) /hpf Urine RBC (Auto) (0-4) /hpf U Hyaline Cast (Auto) (0-5) /lpf U Epithel Cells (Auto) (0-5) /lpf Urine Bacteria (Auto) (Negative) Ethyl Alcohol mg/dL (<10.0) mg/dl SARS-CoV-2, RNA, NAAT NEGATIVE (NEGATIVE) Blood Type O Positive 02/14/23 Range/Units 00:40 WBC (4.8-10.8) K/ul RBC (4.20-5.40) M/uL Hgb (12.0-16.0) g/dl POC Hgb (12.0-16.0) g/dl Hct (37.0-47.0) % POC Hct (37-47) % MCV (80.0-100.0) fL MCH (25.0-34.0) pg MCHC (32.0-36.0) g/dL RDW Std Deviation (36.4-46.3) fL RDW Coeff of Dewayne (11.5-14.5) % Plt Count (130-400) K/uL MPV (9.4-12.4) fL Immature Gran % (Auto) % Neut % (Auto) % Lymph % (Auto) % [place] % (Auto) % Eos % (Auto) % Baso % (Auto) % Neut # (Auto) (1.40-6.50) K/uL Lymph # (Auto) (1.2-3.4) K/uL [place] # (Auto) (0.11-0.59) K/uL Eos # (Auto) (0-0.50) K/uL Baso # (Auto) (0-0.2) K/uL Immature Gran # (Auto) (0.01-0.20) K/uL POC Sodium (135-144) mmol/L Sodium (136-145) mmol/L POC Potassium (3.3-5.0) mmol/L Potassium (3.5-5.1) mmol/L POC Chloride (101-112) mmol/L Chloride (98-107) mmol/L Carbon Dioxide (21-32) mmol/L POC Total CO2 (24-31) mmol/L Anion Gap (3-11) POC Anion Gap (16-25) mmol/L POC BUN (7-18) mg/dl BUN (6-23) mg/dl Creatinine (0.6-1.2) mg/dl POC Creatinine (0.6-1.3) mg/dl Est Cr Clr Drug Dosing ml/min Est GFR ( Amer) ml/min Est GFR (Non-Af Amer) ml/min BUN/Creatinine Ratio (10-20) Glucose (70-99(Fasting)) mg/dl POC Glucose (other) (70-99) mg/dl Calcium (8.5-10.1) mg/dl POC Ioniz Calcium Ramila (1.12-1.32) mmol/l Total Bilirubin (0.2-1.0) mg/dl AST (13-39) U/L ALT (7-52) U/L Alkaline Phosphatase (34-104) U/L Total Creatine Kinase (26-192) U/L Troponin I High Sens (0-14) pg/ml Total Protein (6.0-8.3) gm/dl Albumin (3.4-5.0) gm/dl Globulin (2.5-4.0) gm/dl Albumin/Globulin Ratio (0.9-2) Urine Color Yellow Urine Appearance Cloudy A (Clear) Urine pH 5.0 (4.5-7.5) Ur Specific [place] > 1.045 H (1.000-1.030) Urine Protein Trace H (Negative) Urine Glucose (UA) Negative (Negative) Urine Ketones Negative (Negative) Urine Blood 3+ H (Negative) Urine Nitrite Positive A (Negative) Urine Bilirubin Negative (Negative) Urine Urobilinogen Negative (Negative) Ur Leukocyte Esterase 2+ H (Negative) Urine WBC (Auto) >30 H (0-5) /hpf Urine RBC (Auto) >30 H (0-4) /hpf U Hyaline Cast (Auto) 1-5 (0-5) /lpf U Epithel Cells (Auto) 5-10 H (0-5) /lpf Urine Bacteria (Auto) 2+ H (Negative) Ethyl Alcohol mg/dL (<10.0) mg/dl SARS-CoV-2, RNA, NAAT (NEGATIVE) Blood Type Imaging Data Attestation: I personally reviewed and interpreted this imaging study as follows: Radiologist's Impression: Abdomen/Pelvis CT 02/13/23 22:47 Exam(s): CT ABDOMEN + PELVIS With Contrast IV Amt: 87ML OPTIRAY 350 EXAM: CT Abdomen and Pelvis With Intravenous Contrast CLINICAL HISTORY: Reason for exam: Trauma. TECHNIQUE: Axial computed tomography images of the abdomen and pelvis with intravenous contrast. CTDI is 35.72 mGy and DLP is 2181.37 mGy-cm. Automated exposure control was utilized for the study. A dose lowering technique was utilized adhering to the principles of ALARA. CONTRAST: Patient received 87ML OPTIRAY 350 of IV contrast COMPARISON: No relevant prior studies available. FINDINGS: Lung bases: Unremarkable. No mass. No consolidation. ABDOMEN: Liver: The liver is cirrhotic in morphology. Gallbladder and bile ducts: Unremarkable. No calcified stones. No ductal dilation. Pancreas: Unremarkable. No mass. No ductal dilation. Spleen: The spleen is enlarged measuring up to 14.8 cm. Adrenals: Unremarkable. No mass. Kidneys and ureters: Nonobstructing left lower pole intrarenal calculus. Stomach and bowel: Unremarkable. No obstruction. No mucosal thickening. PELVIS: Appendix: No findings to suggest acute appendicitis. Bladder: Unremarkable. No mass. Reproductive: Unremarkable as visualized. ABDOMEN and PELVIS: Intraperitoneal space: Unremarkable. No free air. No significant fluid collection. Bones/joints: There is a left hip arthroplasty. Please see the dedicated interpretation of the thorax for full intrathoracic findings. There is an old fracture of the right femoral neck. No dislocation. Soft tissues: Unremarkable. Vasculature: There is extensive severe atherosclerotic disease. There are innumerable varices throughout the abdomen and pelvis. There is no evidence for occlusion of the inferior vena cava. No abdominal aortic aneurysm. Lymph nodes: Unremarkable. No enlarged lymph nodes. IMPRESSION: 1. No acute traumatic injury in the abdomen or pelvis. 2. Cirrhosis and portal hypertension with extensive varices throughout the abdomen and pelvis as well as splenomegaly. 3. Old right femoral neck fracture. Electronically signed by: Shlomo Núñez MD 02/14/23 00:[address] 02/13/23 22:47 Exam(s): CT C SPINE EXAM: CT Cervical Spine Without Intravenous Contrast CLINICAL HISTORY: Reason for exam: Trauma. TECHNIQUE: Axial computed tomography images of the cervical spine without intravenous contrast. CTDI is 21.59 mGy and DLP is 619.55 mGy-cm. Automated exposure control was utilized for the study. A dose lowering technique was utilized adhering to the principles of ALARA. COMPARISON: No relevant prior studies available. FINDINGS: Limitations: The bones are diffusely demineralized which somewhat limits the evaluation. Vertebrae: There is a dextroscoliotic curvature of the cervical spine which is centered at C3-4. No acute fracture. Discs/spinal canal/neural foramina: There is advanced multilevel degenerative disease. No spinal canal stenosis. Soft tissues: Unremarkable. Vasculature: There is advanced atherosclerotic disease of the arterial vasculature. IMPRESSION: Limited examination with advanced degenerative disease. No definite acute fracture identified. Electronically signed by: Shlomo Núñez MD 02/14/23 00:[address] 02/13/23 22:47 Exam(s): CT CHEST With Contrast IV Amt: 87ML OPTIRAY 350 EXAM: CT Chest With Intravenous Contrast CLINICAL HISTORY: Reason for exam: Trauma. TECHNIQUE: Axial computed tomography images of the chest with intravenous contrast. CTDI is 35.72 mGy and DLP is 2181.37 mGy-cm. Automated exposure control was utilized for the study. A dose lowering technique was utilized adhering to the principles of ALARA. CONTRAST: Patient received 87ML OPTIRAY 350 of IV contrast COMPARISON: No relevant prior studies available. FINDINGS: Limitations: The examination is mildly limited by respiratory motion artifact. Lungs: There is cavitation of the lower lungs bilaterally suggesting chronic atypical infection. Scattered pleural blebs may be related to this or could reflect underlying emphysema. Pleural space: Unremarkable. No pneumothorax. No significant effusion. Heart: The heart is enlarged. There are coronary vascular calcifications. No significant pericardial effusion. Bones/joints: Please see the dedicated interpretation of the thoracic spine as well as the abdomen and pelvis. No acute fracture. No dislocation. Soft tissues: Unremarkable. Vasculature: See above. Lymph nodes: Unremarkable. No enlarged lymph nodes. IMPRESSION: 1. No acute intrathoracic traumatic injury. 2. Cavitating lesions at the lung bases which most likely reflect chronic atypical infection. Electronically signed by: Shlomo Núñez MD 02/14/23 00:[address] 02/13/23 22:47 Exam(s): CT HEAD Without Contrast EXAM: CT Head Without Intravenous Contrast CLINICAL HISTORY: Reason for exam: Trauma. TECHNIQUE: Axial computed tomography images of the head/brain without intravenous contrast. CTDI is 35.72 mGy and DLP is 2181.37 mGy-cm. Automated exposure control was utilized for the study. A dose lowering technique was utilized adhering to the principles of ALARA. COMPARISON: No relevant prior studies available. FINDINGS: Brain: The cerebral and cerebellar sulci are mildly prominent consistent with mild brain atrophy. There are a few areas of decreased attenuation in the deep cerebral white matter consistent with mild small vessel ischemic/degenerative changes. No hemorrhage. Ventricles: Unremarkable. No ventriculomegaly. Bones/joints: Unremarkable. No acute fracture. Soft tissues: Unremarkable. Vasculature: Atherosclerotic disease. Sinuses: Unremarkable as visualized. No acute sinusitis. Mastoid air cells: Unremarkable as visualized. No mastoid effusion. IMPRESSION: No acute findings in the head/brain. Electronically signed by: Shlomo Núñez MD 02/14/23 00:[address] 02/13/23 22:47 Exam(s): CT L SPINE With Contrast IV Amt: 87 ml optiray 350 EXAM: CT Lumbar Spine With Intravenous Contrast CLINICAL HISTORY: Reason for exam: Trauma. TECHNIQUE: Axial computed tomography images of the lumbar spine with intravenous contrast. Automated exposure control was utilized for the study. A dose lowering technique was utilized adhering to the principles of ALARA. CONTRAST: Patient received 87 ml optiray 350 of IV contrast COMPARISON: No relevant prior studies available. FINDINGS: Limitations: The bones are demineralized which mildly limits evaluation. Vertebrae: There are age indeterminate compression deformities of the L3 and L5 vertebral bodies without evidence for retropulsion. No acute traumatic subluxation. Discs/spinal canal/neural foramina: No acute findings. No spinal canal stenosis. Soft tissues: Unremarkable. Other findings: Please see the dedicated interpretation of the abdomen and pelvis for full intra-abdominal findings. IMPRESSION: Age-indeterminate compression deformities of the L3 and L5 vertebral bodies without retropulsion. MRI may be helpful for determining the chronicity of these findings. Electronically signed by: Shlomo Núñez MD 02/14/23 00:[address] 02/13/23 22:47 Exam(s): CT T SPINE IV Amt: 87 ml optiray 350 EXAM: CT Thoracic Spine With Intravenous Contrast CLINICAL HISTORY: Reason for exam: Trauma. TECHNIQUE: Axial computed tomography images of the thoracic spine with intravenous contrast. Automated exposure control was utilized for the study. A dose lowering technique was utilized adhering to the principles of ALARA. CONTRAST: Patient received 87 ml optiray 350 of IV contrast COMPARISON: No relevant prior studies available. FINDINGS: Vertebrae: The bones are diffusely demineralized. There is exaggeration of the thoracic kyphosis. No acute fracture. Discs/spinal canal/neural foramina: No acute findings. No spinal canal stenosis. Soft tissues: Unremarkable. Other findings: Please see the concurrently performed thoracic CT for intrathoracic findings. IMPRESSION: Diffuse osseous demineralization without acute injury of the thoracic spine noted. Electronically signed by: Shlomo Núñez MD 02/14/23 00:22 AM MDM Narrative Prior records/ancillary studies reviewed. Triage Nursing notes reviewed. Additional history obtained from EMS. The patient's history was concerning for traumatic injury Differential diagnosis: Etiologies such as fracture, dislocation, intra-abdominal, pneumothorax, intrathoracic , intracranial, neurologic, as well as other traumatic pathologies were entertained. Physical examination findings: As above. The patients vitals were stable. ER treatment provided: IV Normal Saline hydration, x-rays were immediately ordered i-STAT patient sent down for patterson scan Bautista was placed An order was placed for continuous cardiac monitoring. The monitor shows a rate of 60-100 with a sinus rhythm per my interpretation. On reassessment the patient felt better. Vital signs were stable. Diagnostic interpretation by me: A 12 lead ECG was ordered for pain EKG: Normal sinus, normal intervals, poor baseline, minimal ST depression in the lateral leads. Impression normal sinus rhythm with minimal ST depression in the lateral leads poor baseline interpreted by myself I think arrhythmia is unlikely. EKG shows normal sinus rhythm with no interval abnormalities such as QT prolongation or WPW. There are no findings to suggest Brugada syndrome. Cardiac monitoring in the emergency department reveals no tachycardic or bradycardic dysrhythmia. Hypertrophic cardiomyopathy was considered but there are no clear historical elements pointing toward this. EKG is not suggestive. The QRS voltage is not extremely large and there are no suggestive Q waves. The labs Independently Interpreted by myself revealed stable H&H, no worrisome leukocytosis Imaging studies: Hip x-ray concerning for right hip fracture per my independent interpretation CT scans reviewed with no intracranial bleed. Right hip fracture noted per my independent interpretation Consultation: A consultation was placed with hospitalist. The case was discussed and diagnost ics were reviewed. The patient was admitted to the hospitalist service for right hip fracture. This appears to be consistent with fall with right hip fracture. Labs and diagnostics are independently interpreted by myself. Medicine was consulted and the case discussed. She will be admitted to the medical service. Patient is agreeable. She was medicated as above. By the evaluation outlined above emergent etiologies such as intra-abdominal, pneumothorax, pulmonary contusion, hemothorax, intracranial, neurologic,as well as others were deemed relatively unlikely. The pt informed about the findings as listed above. All questions were answered and pleased with the treatment. The chart was completed utilizing [employer] Speech voice recognition software. Grammatical errors, random word insertions, pronoun errors, and incomplete sentences are an occassional consequence of this system due to software limitations, ambient noise, and hardware issues. Any formal questions or concer ns about the content, text, or information contained within the body of this dictation should be directly addressed to the physician assistant professor nurse education for clarification. Impression & Plan Closed fracture of right hip, Fall, Head injury Discharge Plan Visit Data Chief Complaint: Fall Stated Complaint: G.L. GALL W/ HIP (rt) PAIN ED Provider: Gino Moreno ED Midlevel Provider: Eleni Núñez Discharge Problem: Closed fracture of right hip, Fall, Head injury Patient Disposition: Admitted As Inpatient Condition: Fair Forms Stand Alone Forms: My [facility] Prescriptions Prescriptions: No Action acetaminophen-codeine 300-30 mg tablet 1 tab PO BID PRN (Reason: Pain,severe) hydrochlorothiazide 25 mg tablet 25 mg PO DAILY dextroamphetamine-amphetamine 10 mg tablet 10 mg PO TID [id number] Tablet 1 tab PO DAILY cholecalciferol (vitamin D3) [Vitamin D3] 125 mcg (5,000 unit) Tablet 125 mcg PO QAM Probiotic 100 billion cell Capsule 2 cap PO HS Rx Instructions: acidophillus lactobacillus metoprolol tartrate 100 mg tablet 100 mg PO BID potassium chloride 10 mEq capsule, extended release 10 meq PO BID vancomycin 125 mg capsule 125 mg PO QAM thiamine HCl (vitamin B1) 100 mg Tablet 100 mg PO DAILY magnesium oxide 400 mg magnesium Capsule 400 mg PO BID polysaccharide iron complex 150 mg iron Capsule 150 mg PO DAILY Referrals Referrals: Jersey Ortiz DO [Primary Care Provider] - Closed fracture of right hip Qualifiers: Encounter type: initial encounter Qualified Code(s): S72.001A - Fracture of unspecified part of neck of right femur, initial encounter for closed fracture
[2023-02-13] MEDS ORDERED: SODIUM CHLORIDE 0.9% 500 ML IV SCH (23:00)
[2023-02-13 23:15] LABS: iSTAT Creatinine 0.6 mg/dl (0.6-1.3); iSTAT Hemoglobin 14.6 g/dl (12.0-16.0); iSTAT Ionized Calcium 1.17 mmol/l (1.12-1.32); iSTAT Potassium 3.2 mmol/L (3.3-5.0)
[2023-02-13 23:32] LABS: Albumin Globulin Ratio 1.1 (0.9-2); Albumin Level 3.9 gm/dl (3.4-5.0); BUN Creatinine Ratio 28.3 (10-20); Bilirubin,Total 1.2 mg/dl (0.2-1.0); Calcium 9.8 mg/dl (8.5-10.1); Creatinine Clr Calc Pharmacy 102.9 ml/min; Est GFR (African American) 112.4 ml/min; Globulin 3.6 gm/dl (2.5-4.0); Potassium 3.1 mmol/L (3.5-5.1); Total Protein 7.5 gm/dl (6.0-8.3)
[2023-02-13 23:33] LABS: Basophils # (auto) 0.05 K/uL (0-0.2); Basophils % (auto) 0.8 %; Eosinophils % (auto) 3.2 %; Hematocrit (blood only) 42.5 % (37.0-47.0); Immature Granulocytes # (auto) 0.08 K/uL (0.01-0.20); Immature Granulocytes % (auto) 1.3 %; Lymphocytes # (auto) 0.96 K/uL (1.2-3.4); Lymphocytes % (auto) 15.4 %; Mean Corpuscular Hgb Conc 35.3 g/dL (32.0-36.0); Mean Corpuscular Volume 96.4 fL (80.0-100.0); Mean Platelet Volume 12.3 fL (9.4-12.4); Monocytes # (auto) 0.43 K/uL (0.11-0.59); Monocytes % (auto) 6.9 %; Neutrophils # (auto) 4.51 K/uL (1.40-6.50); Neutrophils % (auto) 72.4 %; Platelet Count 80 K/uL (130-400); RDW Standard Deviation 53.2 fL (36.4-46.3); Red Blood Count 4.41 M/uL (4.20-5.40); White Blood Count 6.23 K/ul (4.8-10.8)
[2023-02-13 23:39] LABS: Troponin I High Sensitivity 10.9 pg/ml (0-14)
[2023-02-13] MEDS ORDERED: OPTIRAY 350 100ml IV ONE (23:49)
--- NOTE | 2023-02-14 00:23 | CT Scan Report ---
Exam(s): CT T SPINE IV Amt: 87 ml optiray 350 EXAM: CT Thoracic Spine With Intravenous Contrast CLINICAL HISTORY: Reason for exam: Trauma. TECHNIQUE: Axial computed tomography images of the thoracic spine with intravenous contrast. Automated exposure control was utilized for the study. A dose lowering technique was utilized adhering to the principles of ALARA. CONTRAST: Patient received 87 ml optiray 350 of IV contrast COMPARISON: No relevant prior studies available. FINDINGS: Vertebrae: The bones are diffusely demineralized. There is exaggeration of the thoracic kyphosis. No acute fracture. Discs/spinal canal/neural foramina: No acute findings. No spinal canal stenosis. Soft tissues: Unremarkable. Other findings: Please see the concurrently performed thoracic CT for intrathoracic findings. IMPRESSION: Diffuse osseous demineralization without acute injury of the thoracic spine noted. Electronically signed by: Shlomo Núñez MD 02/14/23 00:22 AM
--- NOTE | 2023-02-14 00:31 | CT Scan Report ---
Exam(s): CT C SPINE EXAM: CT Cervical Spine Without Intravenous Contrast CLINICAL HISTORY: Reason for exam: Trauma. TECHNIQUE: Axial computed tomography images of the cervical spine without intravenous contrast. CTDI is 21.59 mGy and DLP is 619.55 mGy-cm. Automated exposure control was utilized for the study. A dose lowering technique was utilized adhering to the principles of ALARA. COMPARISON: No relevant prior studies available. FINDINGS: Limitations: The bones are diffusely demineralized which somewhat limits the evaluation. Vertebrae: There is a dextroscoliotic curvature of the cervical spine which is centered at C3-4. No acute fracture. Discs/spinal canal/neural foramina: There is advanced multilevel degenerative disease. No spinal canal stenosis. Soft tissues: Unremarkable. Vasculature: There is advanced atherosclerotic disease of the arterial vasculature. IMPRESSION: Limited examination with advanced degenerative disease. No definite acute fracture identified. Electronically signed by: Shlomo Núñez MD 02/14/23 00:30 AM
--- NOTE | 2023-02-14 00:34 | CT Scan Report ---
Exam(s): CT ABDOMEN + PELVIS With Contrast IV Amt: 87ML OPTIRAY 350 EXAM: CT Abdomen and Pelvis With Intravenous Contrast CLINICAL HISTORY: Reason for exam: Trauma. TECHNIQUE: Axial computed tomography images of the abdomen and pelvis with intravenous contrast. CTDI is 35.72 mGy and DLP is 2181.37 mGy-cm. Automated exposure control was utilized for the study. A dose lowering technique was utilized adhering to the principles of ALARA. CONTRAST: Patient received 87ML OPTIRAY 350 of IV contrast COMPARISON: No relevant prior studies available. FINDINGS: Lung bases: Unremarkable. No mass. No consolidation. ABDOMEN: Liver: The liver is cirrhotic in morphology. Gallbladder and bile ducts: Unremarkable. No calcified stones. No ductal dilation. Pancreas: Unremarkable. No mass. No ductal dilation. Spleen: The spleen is enlarged measuring up to 14.8 cm. Adrenals: Unremarkable. No mass. Kidneys and ureters: Nonobstructing left lower pole intrarenal calculus. Stomach and bowel: Unremarkable. No obstruction. No mucosal thickening. PELVIS: Appendix: No findings to suggest acute appendicitis. Bladder: Unremarkable. No mass. Reproductive: Unremarkable as visualized. ABDOMEN and PELVIS: Intraperitoneal space: Unremarkable. No free air. No significant fluid collection. Bones/joints: There is a left hip arthroplasty. Please see the dedicated interpretation of the thorax for full intrathoracic findings. There is an old fracture of the right femoral neck. No dislocation. Soft tissues: Unremarkable. Vasculature: There is extensive severe atherosclerotic disease. There are innumerable varices throughout the abdomen and pelvis. There is no evidence for occlusion of the inferior vena cava. No abdominal aortic aneurysm. Lymph nodes: Unremarkable. No enlarged lymph nodes. IMPRESSION: 1. No acute traumatic injury in the abdomen or pelvis. 2. Cirrhosis and portal hypertension with extensive varices throughout the abdomen and pelvis as well as splenomegaly. 3. Old right femoral neck fracture. Electronically signed by: Shlomo Núñez MD 02/14/23 00:33 AM
--- NOTE | 2023-02-14 00:35 | CT Scan Report ---
Exam(s): CT CHEST With Contrast IV Amt: 87ML OPTIRAY 350 EXAM: CT Chest With Intravenous Contrast CLINICAL HISTORY: Reason for exam: Trauma. TECHNIQUE: Axial computed tomography images of the chest with intravenous contrast. CTDI is 35.72 mGy and DLP is 2181.37 mGy-cm. Automated exposure control was utilized for the study. A dose lowering technique was utilized adhering to the principles of ALARA. CONTRAST: Patient received 87ML OPTIRAY 350 of IV contrast COMPARISON: No relevant prior studies available. FINDINGS: Limitations: The examination is mildly limited by respiratory motion artifact. Lungs: There is cavitation of the lower lungs bilaterally suggesting chronic atypical infection. Scattered pleural blebs may be related to this or could reflect underlying emphysema. Pleural space: Unremarkable. No pneumothorax. No significant effusion. Heart: The heart is enlarged. There are coronary vascular calcifications. No significant pericardial effusion. Bones/joints: Please see the dedicated interpretation of the thoracic spine as well as the abdomen and pelvis. No acute fracture. No dislocation. Soft tissues: Unremarkable. Vasculature: See above. Lymph nodes: Unremarkable. No enlarged lymph nodes. IMPRESSION: 1. No acute intrathoracic traumatic injury. 2. Cavitating lesions at the lung bases which most likely reflect chronic atypical infection. Electronically signed by: Shlomo Núñez MD 02/14/23 00:34 AM
--- NOTE | 2023-02-14 00:41 | CT Scan Report ---
Exam(s): CT HEAD Without Contrast EXAM: CT Head Without Intravenous Contrast CLINICAL HISTORY: Reason for exam: Trauma. TECHNIQUE: Axial computed tomography images of the head/brain without intravenous contrast. CTDI is 35.72 mGy and DLP is 2181.37 mGy-cm. Automated exposure control was utilized for the study. A dose lowering technique was utilized adhering to the principles of ALARA. COMPARISON: No relevant prior studies available. FINDINGS: Brain: The cerebral and cerebellar sulci are mildly prominent consistent with mild brain atrophy. There are a few areas of decreased attenuation in the deep cerebral white matter consistent with mild small vessel ischemic/degenerative changes. No hemorrhage. Ventricles: Unremarkable. No ventriculomegaly. Bones/joints: Unremarkable. No acute fracture. Soft tissues: Unremarkable. Vasculature: Atherosclerotic disease. Sinuses: Unremarkable as visualized. No acute sinusitis. Mastoid air cells: Unremarkable as visualized. No mastoid effusion. IMPRESSION: No acute findings in the head/brain. Electronically signed by: Shlomo Núñez MD 02/14/23 00:41 AM
--- NOTE | 2023-02-14 00:43 | CT Scan Report ---
Exam(s): CT L SPINE With Contrast IV Amt: 87 ml optiray 350 EXAM: CT Lumbar Spine With Intravenous Contrast CLINICAL HISTORY: Reason for exam: Trauma. TECHNIQUE: Axial computed tomography images of the lumbar spine with intravenous contrast. Automated exposure control was utilized for the study. A dose lowering technique was utilized adhering to the principles of ALARA. CONTRAST: Patient received 87 ml optiray 350 of IV contrast COMPARISON: No relevant prior studies available. FINDINGS: Limitations: The bones are demineralized which mildly limits evaluation. Vertebrae: There are age indeterminate compression deformities of the L3 and L5 vertebral bodies without evidence for retropulsion. No acute traumatic subluxation. Discs/spinal canal/neural foramina: No acute findings. No spinal canal stenosis. Soft tissues: Unremarkable. Other findings: Please see the dedicated interpretation of the abdomen and pelvis for full intra-abdominal findings. IMPRESSION: Age-indeterminate compression deformities of the L3 and L5 vertebral bodies without retropulsion. MRI may be helpful for determining the chronicity of these findings. Electronically signed by: Shlomo Núñez MD 02/14/23 00:42 AM
[2023-02-14 00:54] LABS: Appearance Urine Cloudy (Clear); Bacteria Urine Automated 2+ (Negative); Bilirubin Urine Negative (Negative); Blood Urine 3+ (Negative); Color Urine Yellow; Glucose Urine UA Negative (Negative); Ketones Urine Negative (Negative); Leukocyte Esterase Urine 2+ (Negative); Nitrite Urine Positive (Negative); Protein Urine Trace (Negative); RBC Urine Automated >30 /hpf (0-4); Specific Gravity Urine > 1.045 (1.000-1.030); Urobilinogen Urine Negative (Negative); WBC Urine Automated >30 /hpf (0-5)
[2023-02-14] MEDS ORDERED: HYDROmorphone INJ 0.5 MG/0.5 ML SYR IV STA (02:30)
--- NOTE | 2023-02-14 03:50 | History and Physical Report ---
DATE OF ADMISSION: 02/14/2023. CHIEF COMPLAINT: Status post fall and right hip fracture. HISTORY OF PRESENT ILLNESS: This is a 63-year-old female with past medical history significant for hypertension; COPD; cirrhosis of unclear etiology; history of ADD; mood disorder; schizophrenia; recurrent C. diff infection, on chronic vancomycin suppression; chronic anemia, ; chronic thrombocytopenia; history of left tibiofibular fracture; history of left foot wound infected and bacteremia with MRSA and Acinetobacter baumannii. Was treated with daptomycin for 6 weeks, finished in July 2022, and also p.o. Levaquin. In April 2022, she had left tibia fracture, was nonweightbearing, and splint placed. She also has history of Klebsiella pneumoniae UTI in the past, lives at home with her . Ambulates with a cane and uses a walker when she takes her dog outside. Today, when she took her dog outside, she fell from standing and she hit the ground on the grass, hit her head. Denies any loss of consciousness, and brought in here and found to have right hip fracture. Complains of pain in the hip region. The patient is very hard of hearing, has to write in a paper. Denies any headache. Vision is okay. No cough, no fevers, no nausea, no chest pain, no shortness of breath, no abdominal pain. Normal bowel and bladder movements. Hemodynamically stable. ALLERGIES: PENICILLIN, OXYCODONE, TORADOL, HYDROCODONE, XIFAXAN, URSODIOL PAST MEDICAL HISTORY: As mentioned above. PAST SURGICAL HISTORY: Femur fracture repair on the left side, total hip replacement. MEDICATIONS: The patient is on vitamin D 125 mcg p.o. daily, Adderall 10 mg p.o. t.i.d., hydrochlorothiazide 12.5 mg p.o. daily, magnesium oxide 400 mg p.o. b.i.d., metoprolol tartrate 100 mg p.o. b.i.d., multivitamins with minerals one tablet p.o. daily, polysaccharide iron complex 150 mg p.o. daily, potassium chloride 10 mEq p.o. b.i.d., probiotics two capsules p.o. at bedtime, vitamin B 100 mg p.o. daily, vancomycin 125 mg p.o. a.m. FAMILY HISTORY: Significant for mother had colon cancer; sister has lung cancer; mother has diabetes; brother has heart disorder; father had MA at age 48. SOCIAL HISTORY: . Quit smoking in January 2020, smoked half pack a day for 28 years ago, quit three years ago. No alcohol use. No drug use. REVIEW OF SYSTEMS: As per HPI. Rest of review of systems is negative. PHYSICAL EXAMINATION: GENERAL: The patient is of moderate build, not in acute distress, hard of hearing. VITAL SIGNS: Temperature 35.5, pulse 101, respiratory rate 21, blood pressure 124/60, oxygen 95% on room air. HEENT: Pupils equal, round, and reactive to light. Oral mucosa dry. NECK: No JVD, no neck masses. CARDIOVASCULAR: S1 and S2 heard. Regular rate and rhythm. No murmur, no gallop. RESPIRATORY SYSTEM: Normal AP diameter. No accessory muscle use. No wheezing or crackles. ABDOMEN: Soft, bowel sounds present, nontender, no distention. CENTRAL NERVOUS SYSTEM: Alert, awake, and oriented, answers questions appropriately, very hard of hearing, has to write in paper. No facial droop. Speech is okay. Insight is okay. EXTREMITIES: Chronic skin changes in bilateral lower extremities. Right lower extremity is slightly shortened and externally rotated. No edema or erythema seen. LABORATORY DATA: WBC 6.2, hemoglobin 15, hematocrit 42.5, platelets 80. Sodium 142, potassium 3.1, chloride 107, CO2 of 23, BUN 17, creatinine 0.6, serum glucose 93, calcium 9.8, total bilirubin 1.2, AST 47, ALT 37, alkaline phosphatase 149. Total creatine kinase 90. Troponin I high sensitivity 10.9. Urinalysis positive for urine nitrite, +2 leukocyte esterase, +2 bacteria. Ethyl alcohol less than 10. SARS-CoV-2 rapid test negative. IMAGING DATA: Thoracic spine CT with IV contrast, diffuse osseous demineralization without acute injury of the thoracic spine. Lumbar spine CT with IV contrast. Age indeterminate compression deformities of the L3 and L5. Vertebral bodies without retropulsion. CT of the head, no acute findings. Chest CT, no acute intrathoracic traumatic injury, cavitating lesions of the lung bases, which most likely reflect chronic atypical infection. Cervical spine CT, no definite acute fracture could be identified. CT abdomen and pelvis, cirrhosis and portal hypertension with extensive varices throughout the abdomen and pelvis as well as splenomegaly. No acute traumatic injury in the abdomen or pelvis. Chest x-ray, chronic findings. Pelvic x-ray, right femur fracture seen. EKG: Normal sinus rhythm at a rate of 96, nonspecific ST-wave abnormalities. ASSESSMENT AND PLAN: A 63-year-old female who presents with mechanical fall and right hip fracture. 1. Mechanical fall and right hip fracture: The patient ambulates with a cane at home and when she takes the dog, she ambulates with a walker. She has half acre in the backyard where she walks. Presents with fall and right hip fracture. Patient should be at acceptable risk if surgery planned. the procedure. Will admit to medical floor, n.p.o., gentle fluids, pain control, and consult orthopedics in the a.m. 2. Hypokalemia: Will replace. 3. Urinary tract infection: Started on Azactam. Will follow the cultures. 4. Cirrhosis of unknown etiology. Getting gentle fluids. Will monitor for any volume overload. 5. Questionable cavitary lesion of the lung bases. Will consult pulmonary while the patient in the hospital. The patient quit smoking 3 years ago. History of emphysema. 6. 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 7. Hypertension: On metoprolol, hydrochlorothiazide. Will hold the hydrochlorothiazide for now, and place on IV hydralazine p.r.n. 8. Mood disorder: Continue Adderall. 9. Chronic thrombocytopenia. Follow the labs. Probably from cirrhosis. 10. Deep venous thrombosis prophylaxis: Could not place on sequential compression devices because of the hip fracture. Could not place on anticoagulation because of thrombocytopenia and planned procedures. DISPOSITION: Full code. Admit to medical floor. PT/OT prior to discharge. Expect to discharge home and follow with family doctor. Job ID: [id number] [facility]
[2023-02-14] MEDS ORDERED: POLYETHYLENE (MIRALAX) 17 GM PACK PO PRN (04:02)
[2023-02-14] MEDS ORDERED: POTASSIUM CHLORIDE CRTAB 20 MEQ TABCR PO STA (04:02)
[2023-02-14] MEDS ORDERED: ONDANSETRON INJ 2 MG/ML 2 ML VIAL IV PRN (04:02)
[2023-02-14] MEDS ORDERED: SODIUM CHLORIDE 0.9% 1000ML 1,000 ML IV SCH (04:02)
[2023-02-14] MEDS: AZTREONAM 2,000 MG in DEXTROSE 5% 100 ML IV SCH ×3 (04:47→21:17)
[2023-02-14] MEDS: HYDROmorphone INJ 0.5 MG/0.5 ML SYR IV PRN ×3 (06:35→20:47)
--- NOTE | 2023-02-14 07:11 | XRay Report ---
SINGLE VIEW CHEST CLINICAL HISTORY: Preoperative examination. Hip fracture. FINDINGS: An AP, portable, semierect chest radiograph is compared to study dated 05/07/2022. The heart is mildly enlarged noting atherosclerotic calcification of the thoracic aorta. There is prominence o f the pulmonary vasculature. Enlargement of the central pulmonary vessels suggests pulmonary artery h ypertension. Emphysema and chronic interstitial thickening is similar to previous. Scarring/atelectas is is noted at the lung bases. No large pleural effusion or pneumothorax is seen. The skeletal struct ures are osteopenic. There are healed bilateral rib fractures. IMPRESSION: 1. Cardiomegaly and emphysema with prominence of the pulmonary vasculature. Correlate clinically for evidence of fluid overload/congestive change. 2. No airspace consolidation typical for pneumonia or large pleural effusion is identified. ACT 112: Negative or not required by law. Electronically signed by: Valentin Alexis M.D. 02/14/2023 7:10 AM
--- NOTE | 2023-02-14 07:15 | XRay Report ---
SINGLE VIEW PELVIS CLINICAL HISTORY: Fall. FINDINGS: An AP, portable, supine view of the pelvis is compared to study dated 04/20/2020. The skelet al structures are osteopenic. There is an impacted subcapital fracture of the right proximal femur. T here is superior displacement of the humeral neck and overlying soft tissue edema. No additional frac ture seen involving the left hip or the bony pelvis. A left hip arthroplasty is in near anatomic alig nment. Mild to moderate arthritic change and joint space narrowing is seen in the right hip. IMPRESSION: Right femoral fracture as above. Electronically signed by: Valentin Alexis M.D. 02/14/2023 7:13 AM
[2023-02-14 07:22] LABS: Hematocrit (blood only) 39.6 % (37.0-47.0); Hemoglobin 14.2 g/dl (12.0-16.0); Mean Corpuscular Hemoglobin 33.9 pg (25.0-34.0); Mean Corpuscular Hgb Conc 35.9 g/dL (32.0-36.0); Mean Corpuscular Volume 94.5 fL (80.0-100.0); Platelet Count 88 K/uL (130-400); RDW Coefficient of Variation 14.8 % (11.5-14.5); RDW Standard Deviation 50.6 fL (36.4-46.3); Red Blood Count 4.19 M/uL (4.20-5.40); White Blood Count 8.19 K/ul (4.8-10.8)
[2023-02-14 07:32] LABS: BUN Creatinine Ratio 26.9 (10-20); Calcium 9.3 mg/dl (8.5-10.1); Est GFR (African American) 117.9 ml/min; Est GFR (Non-African American) 101.7 ml/min; Magnesium 1.6 mg/dl (1.7-2.4)
[2023-02-14 07:42] LABS: Basophils # (auto) 0.02 K/uL (0-0.2); Basophils % (auto) 0.2 %; Immature Granulocytes # (auto) 0.02 K/uL (0.01-0.20); Immature Granulocytes % (auto) 0.2 %; Lymphocytes # (auto) 0.36 K/uL (1.2-3.4); Lymphocytes % (auto) 4.4 %; Monocytes # (auto) 0.37 K/uL (0.11-0.59); Monocytes % (auto) 4.5 %; Neutrophils # (auto) 7.42 K/uL (1.40-6.50); Neutrophils % (auto) 90.7 %
[2023-02-14] MEDS: FLUTICASONE PROPIONATE NA SPR 16 GM BTL SCH (08:08)
[2023-02-14] MEDS: ASCORBIC ACID 500 MG TAB PO SCH ×2 (08:09→20:45)
[2023-02-14] MEDS: POTASSIUM CHLORIDE 10 MEQ TABCR PO SCH ×2 (08:09→20:46)
[2023-02-14] MEDS: CALCIUM 600MG + VIT D 400 IU TAB PO SCH ×2 (08:09→20:45)
[2023-02-14] MEDS: IRON POLYSACCHARIDE COMPLEX 150 MG CAPSULE PO SCH (08:09)
[2023-02-14] MEDS: POT PHOSPHATE MONOBASIC W/ SOD TAB PO SCH ×4 (08:10→20:44)
[2023-02-14] MEDS: CHOLECALCIFEROL 5,000 UNITS 125 MCG TAB PO SCH (08:10)
[2023-02-14] MEDS: CEROVITE ADV FORMULA TAB PO SCH (08:10)
[2023-02-14] MEDS: MAGNESIUM OXIDE 400 MG TAB PO SCH ×2 (08:11→20:46)
[2023-02-14] MEDS: METOPROLOL TARTRATE 100 MG TAB PO SCH ×2 (08:12→20:54)
[2023-02-14] MEDS: THIAMINE HCL 100 MG TAB PO SCH (08:13)
[2023-02-14] MEDS: RASPBERRY SYRUP 5 ML UDP PO SCH (08:24)
[2023-02-14] MEDS: AMPHETAMINE ASP/SULF/DEXTRAMPH 10 MG TAB PO SCH ×3 (08:25→20:43)
[2023-02-14] MEDS: VANCOMYCIN HCL 125 MG/2.5ML SOLN PO SCH (08:25)
--- NOTE | 2023-02-14 09:43 | Orthopedic Consultation ---
Date of Consultation February 14, 2023 Assessment & Plan (1) Closed fracture of right hip: Patient has a right subcapital femoral neck fracture. Surgical intervention was recommended. She does agree to proceed with surgery. Risks and complications of the procedure were explained to the patient and include but are not limited to infection, pain, bleeding, scarring, nerve or blood vessel damage, wound problems, weakness, stiffness, incomplete relief of symptoms, hardware failure, hardware loosening, wear, fracture, tendon or ligament injury, leg length discrepancy, dislocation, blood clots, embolisms, heart attack, stroke and . All questions were answered and informed consent was obtained by myself today. Consent on chart. She does agree to proceed with a right hip hemiarthroplasty. Surgery will be planned for tomorrow afternoon. She will be n.p.o. after midnight and given a regular diet today. Her home medications will be continued. We will type and screen her. We will type and cross for 2 units of PRBCs and platelets. Postoperative course was discussed. She will be allowed to weight-bear as tolerated but will have posterior hip precautions after surgery. She will need to use her walker to assist with ambulation. She may need halfway facility or inpatient rehab stay. She has gone to [facility] in the past. Explained to her that case management will be involved with making these arrangements. For now would recommend bedrest, heels off of the bed, ice to right hip as needed, pain medication as needed for discomfort. We will get another view of her right hip. Will get MRSA nasal swab and treat appropriately if positive. She understands and agrees with the plan. Findings will be discussed with Dr. Ogden. History of Present Illness Attending Physician: Dennis Cobos MD History of Present Illness This is a 63-year-old female with past medical history significant for hypertension; COPD; cirrhosis of unclear etiology; history of ADD; mood disorder; schizophrenia; recurrent C. diff infection, on chronic vancomycin suppression; chronic anemia, ; chronic thrombocytopenia; history of left tibiofibular fracture; history of left foot wound infected and bacteremia with MRSA and Acinetobacter baumannii. Was treated with daptomycin for 6 weeks, finished in July 2022, and also p.o. Levaquin. In April 2022, she had left tibia fracture, was nonweightbearing, and splint placed. She also has history of Klebsiella pneumoniae UTI in the past, lives at home with her . Ambulates with a cane and uses a walker when she takes her dog outside. Today, when she took her dog outside, she fell from standing and she hit the ground on the grass, hit her head. Denies any loss of consciousness, and brought in here and found to have right hip fracture. Complains of pain in the right hip region. Denies any pain in any other place. States she fell onto the right side. Her was able to help her into a wheelchair. She states he tried to get into her recliner in the living room but she was unable to move from the wheelchair to the chair. They called for an ambulance and she was brought to the emergency room. While in the emergency room she had x-rays of her right hip which showed a right subcapital femoral neck fracture. She was admitted by the hospitalist service. The patient is very hard of hearing, has to write in a paper. She is also able to read lips. Denies any headache. Vision is okay. No cough, no fevers, no nausea, no chest pain, no shortness of breath, no abdominal pain. Normal bowel and bladder movements. Hemodynamically stable. Allergies Allergy/AdvReac Type Severity Reaction Status Date / Time Penicillins Allergy Severe ANAPHYLAXIS Verified 02/14/23 02:33 oxycodone [From Percodan] Allergy Unknown Unknown Verified 02/14/23 02:33 ketorolac [From Toradol] AdvReac Severe Breathing Verified 02/14/23 02:33 difficulty hydrocodone AdvReac Intermediate Nausea Verified 02/14/23 02:33 [From Lorcet (hydrocodone)] rifaximin [From Xifaxan] AdvReac Intermediate Dizzy, Verified 02/14/23 02:33 Fell down ursodiol AdvReac Intermediate Dizzy, Verified 02/14/23 02:33 Fell down Home Medications Medication Instructions Recorded Confirmed Type Acidophilus Lactobacillus 2 cap PO HS 02/14/23 02/14/23 History acetaminophen 300 mg-codeine 30 mg 1 tab PO BID PRN Pain 02/14/23 02/14/23 History tablet acetaminophen 325 mg tablet 350 mg PO QID PRN Pain 02/14/23 02/14/23 History (Tylenol) ascorbic acid (vitamin C) 500 mg 500 mg PO BID 02/14/23 02/14/23 History tablet (Vitamin C) ujbqnzhmtf-vwhglgecwzvof-qhlcbdqf 1 tab PO Q6H PRN Migraine Headache 02/14/23 02/14/23 History 50 mg-325 mg-40 mg tablet calcium carbonate 600 mg-vitamin 1 cap PO BID 02/14/23 02/14/23 History D3 5 mcg (200 unit) capsule (Calcium 600 + D(3)) fluticasone propionate 50 2 spray intranasal DAILY 02/14/23 02/14/23 History mcg/actuation nasal spray,suspension (Flonase Allergy Relief) hydrochlorothiazide 25 mg tablet 12.5 mg PO DAILY 02/14/23 02/14/23 History hydrocortisone 0.25 % topical cream 1 applic topical DIRECTED 02/14/23 02/14/23 History loperamide 2 mg capsule 2 mg PO Q8 PRN Diarrhea 02/14/23 02/14/23 History loratadine 10 mg tablet 10 mg PO DAILY PRN ALLERGIES 02/14/23 02/14/23 History magnesium oxide 400 mg PO BID 02/14/23 02/14/23 History metoprolol tartrate 100 mg tablet 100 mg PO BID 02/14/23 02/14/23 History zmebwzbdygzi-fuhqhhtn-hrftmt tablet 1 tab PO DAILY 02/14/23 02/14/23 History ondansetron HCl 4 mg tablet 4 mg PO Q6H PRN Nausea 02/14/23 02/14/23 History polysaccharide iron complex 150 mg 150 mg PO DAILY 02/14/23 02/14/23 History iron capsule (Ferrex) potassium chloride 10 mEq 10 meq PO BID 02/14/23 02/14/23 History capsule,extended release sodium di- and 1 tab PO QID 02/14/23 02/14/23 History monophosphate-potassium phos monobasic 250 mg tablet (B-Waeq-Kfenyia) vancomycin 125 mg capsule 125 mg PO QAM 02/14/23 02/14/23 History vitamin B complex 1 tab PO DAILY 02/14/23 02/14/23 History Patient History Medical History (Updated 02/14/23 @ 00:54 by Eleni Núñez PA-C) Bipolar disorder Cirrhosis Depression Emphysema of lung Based on imaging Failure of outpatient treatment History of CVA (cerebrovascular accident) Osteoporosis Pulmonary nodule 9 mm RML subsolid nodule CT chest 4/3/20. F/U CT recommended 3-6 months Schizophrenia Vitamin D deficiency Surgical History History of appendectomy History of shoulder surgery History of total hip replacement femur fracture one month later with repair, both in 2007 Status post open reduction and internal fixation (ORIF) of fracture Family History Father Myocardial infarction Mother Colorectal cancer Social History Smoking Status: Former smoker Tobacco Type: Cigarettes Cigarettes Per Day: 18; Second Hand Exposure: No; Do You Dip or Chew Tobacco: No; Hx Alcohol Use: No Hx Substance Use: No Preferred Language: Bhutanese Communication Ability: Effective Communication Ability Comment: pt [facility] [employer] Required: No Beliefs That Will Affect Care: None marital status: Current Living Situation: Spouse Current Living Situation Comment: Lives with Other Information That Helps Us Care for You: No Feels Safe at Home: Yes Safety Concerns: Feels Safe At This Time Assistive Devices: Cane and Walker Review of Systems Review of Systems: All systems reviewed & are unremarkable except as noted in HPI & below Physical Exam Constitutional: WD/WN, vitals as above Eyes: PERRL, conjunctivae normal, anicteric sclerae ENMT: external ear and nose normal, oropharynx normal Neck: trachea midline, no thyromegaly Respiratory: normal respiratory effort, lungs clear to auscultation Cardiovascular: RRR, no murmur, no edema Gastrointestinal (Abdomen): Inspection/Auscultation: abdomen normal to inspection; no abdominal edema Musculoskeletal: Exam of bilateral upper extremities: She does have a chronic deformity of the left wrist. She otherwise has full range of motion of shoulders, elbows, wrist and fingers as tolerated. No ecchymosis. No skin abrasions. Distal pulses are 1+. Exam of bilateral lower extremities: She does have a Band-Aid over her left heel. Underneath the Band-Aid is a dried small scab. There is no surrounding erythema. There is no bogginess. No active drainage. Her lower legs have dry scaly skin. No evidence of cellulitis. No open wounds. Dorsalis pedis pulses bilaterally are 1+. Posterior tibial pulse on the left is trace and nonpalpable on the right. I was able to Doppler both of them today. Distal sensation is normal. Right leg is externally rotated and mildly shortened as compared to the other side. She has 2 nickel sized abrasions on the right knee. 1 on the lateral border of the patella and 1 on the tibial tuberosity. No ecchymosis. No effusion to her right knee. She tolerates passive range of motion of the ri ght knee without discomfort. Pain with any type of movement of her right leg into her right hip. Right hip surrounding skin is not erythematous. No ecchymosis. Skin is intact. Pelvis is nontender to palpation. Left leg is nontender with palpation. Previous incisions on her left hip and thigh are healed. Results & Data Vital Signs (Past 12 Hours) Vital Signs Temp Pulse Pulse Pulse Resp BP BP 02/14/23 08:00 37.0 C 106 H 18 153/77 H 02/14/23 03:45 36.9 C 79 16 144/63 H 02/14/23 02:30 22 148/68 H 02/14/23 02:00 22 149/67 H 02/14/23 01:31 101 H 21 02/14/23 01:11 98 H 21 124/60 02/14/23 01:01 99 H 22 02/14/23 00:30 92 H 17 02/14/23 00:02 93 H 22 147/65 H 02/13/23 23:56 26 H 02/13/23 23:17 80 20 02/13/23 23:05 80 02/13/23 23:16 82 19 02/13/23 22:46 35.5 C L 80 18 147/65 H Pulse Ox O2 Del Method 02/14/23 08:00 92 Room Air 02/14/23 03:45 97 Room Air 02/14/23 02:30 99 02/14/23 02:00 94 02/14/23 01:31 95 02/14/23 01:11 95 02/14/23 01:01 96 02/14/23 00:30 97 02/14/23 00:02 94 02/13/23 23:56 92 02/13/23 23:17 98 02/13/23 23:05 02/13/23 23:16 98 Room Air 02/13/23 22:46 95 Room Air Laboratory Results 02/14/23 02/14/23 02/14/23 Range/Units 06:42 06:42 00:40 WBC 8.19 (4.8-10.8) K/ul RBC 4.19 L (4.20-5.40) M/uL Hgb 14.2 (12.0-16.0) g/dl POC Hgb (12.0-16.0) g/dl Hct 39.6 (37.0-47.0) % POC Hct (37-47) % MCV 94.5 (80.0-100.0) fL MCH 33.9 (25.0-34.0) pg MCHC 35.9 (32.0-36.0) g/dL RDW Std Deviation 50.6 H (36.4-46.3) fL RDW Coeff of Dewayne 14.8 H (11.5-14.5) % Plt Count 88 L (130-400) K/uL MPV 12.0 (9.4-12.4) fL Immature Gran % (Auto) 0.2 % Neut % (Auto) 90.7 % Lymph % (Auto) 4.4 % Bucks % (Auto) 4.5 % Eos % (Auto) 0.0 % Baso % (Auto) 0.2 % Neut # (Auto) 7.42 H (1.40-6.50) K/uL Lymph # (Auto) 0.36 L (1.2-3.4) K/uL Bucks # (Auto) 0.37 (0.11-0.59) K/uL Eos # (Auto) 0.00 (0-0.50) K/uL Baso # (Auto) 0.02 (0-0.2) K/uL Immature Gran # (Auto) 0.02 (0.01-0.20) K/uL POC Sodium (135-144) mmol/L Sodium 139 (136-145) mmol/L POC Potassium (3.3-5.0) mmol/L Potassium 4.0 D (3.5-5.1) mmol/L POC Chloride (101-112) mmol/L Chloride 108 H (98-107) mmol/L Carbon Dioxide 23 (21-32) mmol/L POC Total CO2 (24-31) mmol/L Anion Gap 8 (3-11) POC Anion Gap (16-25) mmol/L POC BUN (7-18) mg/dl BUN 14 (6-23) mg/dl Creatinine 0.52 L (0.6-1.2) mg/dl POC Creatinine (0.6-1.3) mg/dl Est Cr Clr Drug Dosing 94.0 ml/min Est GFR ( Amer) 117.9 ml/min Est GFR (Non-Af Amer) 101.7 ml/min BUN/Creatinine Ratio 26.9 H (10-20) Glucose 119 H (70-99(Fasting)) mg/dl POC Glucose (other) (70-99) mg/dl Calcium 9.3 (8.5-10.1) mg/dl POC Ioniz Calcium Ramila (1.12-1.32) mmol/l Magnesium 1.6 L (1.7-2.4) mg/dl Total Bilirubin (0.2-1.0) mg/dl AST (13-39) U/L ALT (7-52) U/L Alkaline Phosphatase (34-104) U/L Total Creatine Kinase (26-192) U/L Troponin I High Sens (0-14) pg/ml Total Protein (6.0-8.3) gm/dl Albumin (3.4-5.0) gm/dl Globulin (2.5-4.0) gm/dl Albumin/Globulin Ratio (0.9-2) Urine Color Yellow Urine Appearance Cloudy A (Clear) Urine pH 5.0 (4.5-7.5) Ur Specific [place] > 1.045 H (1.000-1.030) Urine Protein Trace H (Negative) Urine Glucose (UA) Negative (Negative) Urine Ketones Negative (Negative) Urine Blood 3+ H (Negative) Urine Nitrite Positive A (Negative) Urine Bilirubin Negative (Negative) Urine Urobilinogen Negative (Negative) Ur Leukocyte Esterase 2+ H (Negative) Urine WBC (Auto) >30 H (0-5) /hpf Urine RBC (Auto) >30 H (0-4) /hpf U Hyaline Cast (Auto) 1-5 (0-5) /lpf U Epithel Cells (Auto) 5-10 H (0-5) /lpf Urine Bacteria (Auto) 2+ H (Negative) Ethyl Alcohol mg/dL (<10.0) mg/dl SARS-CoV-2, RNA, NAAT (NEGATIVE) Blood Type 02/13/23 02/13/23 02/13/23 Range/Units 23:19 23:06 23:02 WBC (4.8-10.8) K/ul RBC (4.20-5.40) M/uL Hgb (12.0-16.0) g/dl POC Hgb 14.6 (12.0-16.0) g/dl Hct (37.0-47.0) % POC Hct 43 (37-47) % MCV (80.0-100.0) fL MCH (25.0-34.0) pg MCHC (32.0-36.0) g/dL RDW Std Deviation (36.4-46.3) fL RDW Coeff of Dewayne (11.5-14.5) % Plt Count (130-400) K/uL MPV (9.4-12.4) fL Immature Gran % (Auto) % Neut % (Auto) % Lymph % (Auto) % Bucks % (Auto) % Eos % (Auto) % Baso % (Auto) % Neut # (Auto) (1.40-6.50) K/uL Lymph # (Auto) (1.2-3.4) K/uL Bucks # (Auto) (0.11-0.59) K/uL Eos # (Auto) (0-0.50) K/uL Baso # (Auto) (0-0.2) K/uL Immature Gran # (Auto) (0.01-0.20) K/uL POC Sodium 143 (135-144) mmol/L Sodium (136-145) mmol/L POC Potassium 3.2 L (3.3-5.0) mmol/L Potassium (3.5-5.1) mmol/L POC Chloride 108 (101-112) mmol/L Chloride (98-107) mmol/L Carbon Dioxide (21-32) mmol/L POC Total CO2 22 L (24-31) mmol/L Anion Gap (3-11) POC Anion Gap 17.0 (16-25) mmol/L POC BUN 18 (7-18) mg/dl BUN (6-23) mg/dl Creatinine (0.6-1.2) mg/dl POC Creatinine 0.6 (0.6-1.3) mg/dl Est Cr Clr Drug Dosing ml/min Est GFR ( Amer) ml/min Est GFR (Non-Af Amer) ml/min BUN/Creatinine Ratio (10-20) Glucose (70-99(Fasting)) mg/dl POC Glucose (other) 96 (70-99) mg/dl Calcium (8.5-10.1) mg/dl POC Ioniz Calcium Ramila 1.17 (1.12-1.32) mmol/l Magnesium (1.7-2.4) mg/dl Total Bilirubin (0.2-1.0) mg/dl AST (13-39) U/L ALT (7-52) U/L Alkaline Phosphatase (34-104) U/L Total Creatine Kinase (26-192) U/L Troponin I High Sens (0-14) pg/ml Total Protein (6.0-8.3) gm/dl Albumin (3.4-5.0) gm/dl Globulin (2.5-4.0) gm/dl Albumin/Globulin Ratio (0.9-2) Urine Color Urine Appearance (Clear) Urine pH (4.5-7.5) Ur Specific [place] (1.000-1.030) Urine Protein (Negative) Urine Glucose (UA) (Negative) Urine Ketones (Negative) Urine Blood (Negative) Urine Nitrite (Negative) Urine Bilirubin (Negative) Urine Urobilinogen (Negative) Ur Leukocyte Esterase (Negative) Urine WBC (Auto) (0-5) /hpf Urine RBC (Auto) (0-4) /hpf U Hyaline Cast (Auto) (0-5) /lpf U Epithel Cells (Auto) (0-5) /lpf Urine Bacteria (Auto) (Negative) Ethyl Alcohol mg/dL (<10.0) mg/dl SARS-CoV-2, RNA, NAAT NEGATIVE (NEGATIVE) Blood Type O Positive 02/13/23 02/13/23 02/13/23 Range/Units 22:40 22:40 22:40 WBC 6.23 (4.8-10.8) K/ul RBC 4.41 (4.20-5.40) M/uL Hgb 15.0 (12.0-16.0) g/dl POC Hgb (12.0-16.0) g/dl Hct 42.5 (37.0-47.0) % POC Hct (37-47) % MCV 96.4 (80.0-100.0) fL MCH 34.0 (25.0-34.0) pg MCHC 35.3 (32.0-36.0) g/dL RDW Std Deviation 53.2 H (36.4-46.3) fL RDW Coeff of Dewayne 15.0 H (11.5-14.5) % Plt Count 80 L (130-400) K/uL MPV 12.3 (9.4-12.4) fL Immature Gran % (Auto) 1.3 % Neut % (Auto) 72.4 % Lymph % (Auto) 15.4 % Bucks % (Auto) 6.9 % Eos % (Auto) 3.2 % Baso % (Auto) 0.8 % Neut # (Auto) 4.51 (1.40-6.50) K/uL Lymph # (Auto) 0.96 L (1.2-3.4) K/uL Bucks # (Auto) 0.43 (0.11-0.59) K/uL Eos # (Auto) 0.20 (0-0.50) K/uL Baso # (Auto) 0.05 (0-0.2) K/uL Immature Gran # (Auto) 0.08 (0.01-0.20) K/uL POC Sodium (135-144) mmol/L Sodium 142 (136-145) mmol/L POC Potassium (3.3-5.0) mmol/L Potassium 3.1 L (3.5-5.1) mmol/L POC Chloride (101-112) mmol/L Chloride 107 (98-107) mmol/L Carbon Dioxide 23 (21-32) mmol/L POC Total CO2 (24-31) mmol/L Anion Gap 12 H (3-11) POC Anion Gap (16-25) mmol/L POC BUN (7-18) mg/dl BUN 17 (6-23) mg/dl Creatinine 0.60 (0.6-1.2) mg/dl POC Creatinine (0.6-1.3) mg/dl Est Cr Clr Drug Dosing 102.9 ml/min Est GFR ( Amer) 112.4 ml/min Est GFR (Non-Af Amer) 97.0 ml/min BUN/Creatinine Ratio 28.3 H (10-20) Glucose 93 (70-99(Fasting)) mg/dl POC Glucose (other) (70-99) mg/dl Calcium 9.8 (8.5-10.1) mg/dl POC Ioniz Calcium Ramila (1.12-1.32) mmol/l Magnesium (1.7-2.4) mg/dl Total Bilirubin 1.2 H (0.2-1.0) mg/dl AST 47 H (13-39) U/L ALT 37 (7-52) U/L Alkaline Phosphatase 149 H (34-104) U/L Total Creatine Kinase 90 (26-192) U/L Troponin I High Sens 10.9 (0-14) pg/ml Total Protein 7.5 (6.0-8.3) gm/dl Albumin 3.9 (3.4-5.0) gm/dl Globulin 3.6 (2.5-4.0) gm/dl Albumin/Globulin Ratio 1.1 (0.9-2) Urine Color Urine Appearance (Clear) Urine pH (4.5-7.5) Ur Specific [place] (1.000-1.030) Urine Protein (Negative) Urine Glucose (UA) (Negative) Urine Ketones (Negative) Urine Blood (Negative) Urine Nitrite (Negative) Urine Bilirubin (Negative) Urine Urobilinogen (Negative) Ur Leukocyte Esterase (Negative) Urine WBC (Auto) (0-5) /hpf Urine RBC (Auto) (0-4) /hpf U Hyaline Cast (Auto) (0-5) /lpf U Epithel Cells (Auto) (0-5) /lpf Urine Bacteria (Auto) (Negative) Ethyl Alcohol mg/dL < 10.0 (<10.0) mg/dl SARS-CoV-2, RNA, NAAT (NEGATIVE) Blood Type Diagnostic Findings SINGLE VIEW PELVIS CLINICAL HISTORY: Fall. FINDINGS: An AP, portable, supine view of the pelvis is compared to study dated 04/20/2020. The skeletal structures are osteopenic. There is an impacted subcapital fracture of the right proximal femur. There is superior displacement of the humeral neck and overlying soft tissue edema. No additional fracture seen involving the left hip or the bony pelvis. A left hip arthroplasty is in near anatomic alignment. Mild to moderate arthritic change and joint space narrowing is seen in the right hip. IMPRESSION: Right femoral fracture as above. Exam(s): CT ABDOMEN + PELVIS With Contrast IV Amt: 87ML OPTIRAY 350 EXAM: CT Abdomen and Pelvis With Intravenous Contrast CLINICAL HISTORY: Reason for exam: Trauma. TECHNIQUE: Axial computed tomography images of the abdomen and pelvis with intravenous contrast. CTDI is 35.72 mGy and DLP is 2181.37 mGy-cm. Automated exposure control was utilized for the study. A dose lowering technique was utilized adhering to the principles of ALARA. CONTRAST: Patient received 87ML OPTIRAY 350 of IV contrast COMPARISON: No relevant prior studies available. FINDINGS: Lung bases: Unremarkable. No mass. No consolidation. ABDOMEN: Liver: The liver is cirrhotic in morphology. Gallbladder and bile ducts: Unremarkable. No calcified stones. No ductal dilation. Pancreas: Unremarkable. No mass. No ductal dilation. Spleen: The spleen is enlarged measuring up to 14.8 cm. Adrenals: Unremarkable. No mass. Kidneys and ureters: Nonobstructing left lower pole intrarenal calculus. Stomach and bowel: Unremarkable. No obstruction. No mucosal thickening. PELVIS: Appendix: No findings to suggest acute appendicitis. Bladder: Unremarkable. No mass. Reproductive: Unremarkable as visualized. ABDOMEN and PELVIS: Intraperitoneal space: Unremarkable. No free air. No significant fluid collection. Bones/joints: There is a left hip arthroplasty. Please see the dedicated interpretation of the thorax for full intrathoracic findings. There is an old fracture of the right femoral neck. No dislocation. Soft tissues: Unremarkable. Vasculature: There is extensive severe atherosclerotic disease. There are innumerable varices throughout the abdomen and pelvis. There is no evidence for occlusion of the inferior vena cava. No abdominal aortic aneurysm. Lymph nodes: Unremarkable. No enlarged lymph nodes. IMPRESSION: 1. No acute traumatic injury in the abdomen or pelvis. 2. Cirrhosis and portal hypertension with extensive varices throughout the abdomen and pelvis as well as splenomegaly. 3. Old right femoral neck fracture. (1) Closed fracture of right hip Encounter type: initial encounter Qualified Code(s): S72.001A - Fracture of unspecified part of neck of right femur, initial encounter for closed fracture
[2023-02-14] MEDS ORDERED: SODIUM CHLORIDE 0.9% 250 ML IV PRN (09:47)
[2023-02-14] MEDS: ACETAMINOPHEN 325 MG TAB PO PRN (10:04)
[2023-02-14] MEDS ORDERED: VANCOMYCIN CONSULT ACTIVE PRN (10:11)
[2023-02-14] MEDS ORDERED: TRANEXAMIC ACID / 0.7% NACL 1,000 MG/100 ML BAG IV ONE ×2 (10:40→16:40)
--- NOTE | 2023-02-14 10:59 | Electrocardiogram Report ---
Test Reason : Blood Pressure : / mmHG Vent. Rate : 096 BPM Atrial Rate : 096 BPM P-R Int : 170 ms QRS Dur : 096 ms QT Int : 346 ms P-R-T Axes : 046 009 034 degrees QTc Int : 437 ms Normal sinus rhythm Nonspecific T wave abnormality Abnormal ECG When compared with ECG of 06-JUL-2020 06:29, QT has shortened Confirmed by Fletcher Santiago ([id number]) on 02/14/2023 10:59:06 AM Referred By: REFERRED SELF Confirmed By:Michele Santiago
--- NOTE | 2023-02-14 11:16 | Progress Notes ---
DATE OF SERVICE: 02/14/2023 Dee is a 63-year-old female known to me from previous interactions. She is seen and evaluated with Mercedez Simental. She and I have seen the patient and discussed the case. I am in agreement with hoda painting. She fell last evening sustaining a right hip fracture. She has osteoporosis. Chronic C. diff, on va ncomycin orally. History of MRSA left heel infection. Smoking history. Thrombocytopenia. She has had her left hip fixed in the past. On exam, her right hip is tender to palpation and positive log roll. Skin unremarkable. Operative s ite marked. Minor abrasion over the right knee, which is not tender. No knee effusion. DP pulse 1+ and PT pulses not palpable, but has been dopplered previously. She has 5/5 ankle and toe plantar fl exion, dorsiflexion, and eversion. Heels are padded. Radiographs demonstrate osteopenia. There is a femoral neck fracture with shortening. Uncomplicated left hip bipolar. Reports of other imaging is reviewed and this includes CTs of the thoracic, lumba r, and cervical spine; head CT, abdomen and pelvis CT, and chest x-ray. Further x-rays of the right knee and lateral view of the right hip are pending. IMPRESSION: Thrombocytopenia, osteoporosis, methicillin-resistant Staphylococcus aureus history, vancomycin-resis tant enterococci history, multiple medical problems, and right femoral neck fracture. PLAN: Findings are discussed. Recommended operative intervention and she agrees to proceed. Risks, benefi ts, rehab, and recovery discussed. Mercedez has obtained informed consent. Plan for OR tomorrow. Steve hinkle and halie. Platelets available. We will avoid heparin and Lovenox postoperatively. Importance of bone density testing and addressing her bone density is stressed. Prevent wound development on he els. Check vitamin D. Vancomycin preop. Vancomycin in the cement. TXA preop and postop. We will see if she is able to take Ancef. Job ID: [id number]
--- NOTE | 2023-02-14 13:19 | XRay Report ---
XR knee RT 1 or 2V routine HISTORY: 63 years-old Female right knee pain; s/p fall acute right knee pain status post fall COMPARISON: Right femur radiographs of same day TECHNIQUE: 2 views of the right knee FINDINGS: Demineralized appearance of the bones. Chondrocalcinosis. Mild to moderate tricompartmental osteoarth ritis. Trace joint effusion. No acute fracture, dislocation or opaque foreign body. IMPRESSION: No acute fracture or dislocation. ACT 112: Negative or not required by law. The above report was generated using voice recognition software. It may contain grammatical, syntax o r spelling errors. Electronically signed by: Mike Purdy M.D. 02/14/2023 1:18 PM
--- NOTE | 2023-02-14 13:33 | XRay Report ---
XR femur RT 2V routine CLINICAL HISTORY: right femur 1 view - lateral only TECHNIQUE: 2 radiographic views of the right femur were obtained. Comparison: Comparison is made to pelvis radiograph 02/13/2023 FINDINGS: Redemonstration of a subcapital fracture of the femoral neck which appears somewhat more displaced th an in the prior exam with approximately one half shaft width superior displacement of the distal frag ment. Mild arthritic changes are seen. Soft tissue swelling is seen. IMPRESSION: Redemonstration of subcapital fracture of the femoral neck which appears slightly more displaced than in the prior exam. ACT 112: Negative or not required by law. Electronically signed by: Fish Craty M.D. 02/14/2023 1:32 PM
--- NOTE | 2023-02-14 14:15 | Hospitalist Progress Note ---
Date of Service February 14, 2023 Assessment & Plan (1) Closed fracture of right hip: (2) Fall: Plan: Past medical history of hypertension, cirrhosis, COPD, mood disorder presented after mechanical fall. Hip x-ray shows a right-sided subcapital fracture of femoral neck N.p.o. from midnight Pain control with Dilaudid. Plan for surgery tomorrow (3) Acute UTI (urinary tract infection): Plan: Urinalysis suggestive of infection No leukocytosis Started on antibiotics; we will follow-up on culture (4) Cirrhosis: (5) Thrombocythemia: Plan: History of cirrhosis of unknown etiology. CT abdomen and pelvis shows cirrhosis along with portal hypertension with extensive varices through abdomen/pelvis with splenomegaly. She appears to be compensated from cirrhosis standpoint. Was seen by GI in the past. Needs regular follow-up with GI as outpatient Thrombocytopenia likely related with cirrhosis. Patient to be transfused 2 units of platelets prior to procedure Plan Other conditions; CT chest shows cavitary lesions at the lung bases; patient is saturating well on room air. Pulmonology consulted on admission. We will follow-up on recommendation. 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 Hypertension: On metoprolol, hydrochlorothiazide. Will hold the hydrochlorothiazide for now. Mood disorder: Continue Adderall. Full code SCDs for DVT prophylaxis Dispositionfrom home; PT OT after surgery. Admission and Anticipated Discharge Date Admission Date: February 14, 2023 Subjective Patient seen and examined at bedside. She is sitting up on the bed; eating breakfast. She reports that pain is well controlled on current medication. She denies any fever, chills, chest pain or shortness of breath. Review of Systems Review of Systems: All systems reviewed & are unremarkable except as noted in Subjective Physical Exam Physical Exam: Constitutional: Alert, oriented x3; not in any distress. Hard of hearing. Respiratory: normal respiratory effort, lungs clear to auscultation, no wheeze, rales, rhonchi. Normal insp/exp effort, no accessory muscle use Cardiovascular: RRR, no murmur, no edema Vessels: no JVD or carotid bruit Chest: normal inspection of chest Abdomen: normal bowel sounds, soft, nontender, no hepatosplenomegaly Musculoskeletal: Tenderness present in right hip; overlying skin is normal. Skin: no rashes, warm and dry normal turgor Neurologic: PERRL, EOMI, accommodation nl, no face palsy, no dysarthria CN's II- XI intact bilaterally and moves all extremities Psychiatric: A+Ox3, euthymic affect Lymphatic: no cervical or axillary lymphadenopathy : deferred Results & Data Results & Data Vital Signs (Past 12 Hours) Vital Signs Temp Pulse Pulse Resp BP BP Pulse Ox 02/14/23 08:00 37.0 C 106 H 18 153/77 H 92 02/14/23 03:45 36.9 C 79 16 144/63 H 97 02/14/23 02:30 22 148/68 H 99 O2 Del Method 02/14/23 08:00 Room Air 02/14/23 03:45 Room Air 02/14/23 02:30 Laboratory Results Laboratory Results WBC 8.19 K/ul (4.8-10.8) 02/14/23 06:42 RBC 4.19 M/uL (4.20-5.40) L 02/14/23 06:42 Hgb 14.2 g/dl (12.0-16.0) 02/14/23 06:42 POC Hgb 14.6 g/dl (12.0-16.0) 02/13/23 23:02 Hct 39.6 % (37.0-47.0) 02/14/23 06:42 POC Hct 43 % (37-47) 02/13/23 23:02 MCV 94.5 fL (80.0-100.0) 02/14/23 06:42 MCH 33.9 pg (25.0-34.0) 02/14/23 06:42 MCHC 35.9 g/dL (32.0-36.0) 02/14/23 06:42 RDW Std Deviation 50.6 fL (36.4-46.3) H 02/14/23 06:42 RDW Coeff of Dewayne 14.8 % (11.5-14.5) H 02/14/23 06:42 Plt Count 88 K/uL (130-400) L 02/14/23 06:42 MPV 12.0 fL (9.4-12.4) 02/14/23 06:42 Immature Gran % (Auto) 0.2 % 02/14/23 06:42 Neut % (Auto) 90.7 % 02/14/23 06:42 Lymph % (Auto) 4.4 % 02/14/23 06:42 Bradley % (Auto) 4.5 % 02/14/23 06:42 Eos % (Auto) 0.0 % 02/14/23 06:42 Baso % (Auto) 0.2 % 02/14/23 06:42 Neut # (Auto) 7.42 K/uL (1.40-6.50) H 02/14/23 06:42 Lymph # (Auto) 0.36 K/uL (1.2-3.4) L 02/14/23 06:42 Bradley # (Auto) 0.37 K/uL (0.11-0.59) 02/14/23 06:42 Eos # (Auto) 0.00 K/uL (0-0.50) 02/14/23 06:42 Baso # (Auto) 0.02 K/uL (0-0.2) 02/14/23 06:42 Immature Gran # (Auto) 0.02 K/uL (0.01-0.20) 02/14/23 06:42 POC Sodium 143 mmol/L (135-144) 02/13/23 23:02 Sodium 139 mmol/L (136-145) 02/14/23 06:42 POC Potassium 3.2 mmol/L (3.3-5.0) L 02/13/23 23:02 Potassium 4.0 mmol/L (3.5-5.1) D 02/14/23 06:42 POC Chloride 108 mmol/L (101-112) 02/13/23 23:02 Chloride 108 mmol/L (98-107) H 02/14/23 06:42 Carbon Dioxide 23 mmol/L (21-32) 02/14/23 06:42 POC Total CO2 22 mmol/L (24-31) L 02/13/23 23:02 Anion Gap 8 (3-11) 02/14/23 06:42 POC Anion Gap 17.0 mmol/L (16-25) 02/13/23 23:02 POC BUN 18 mg/dl (7-18) 02/13/23 23:02 BUN 14 mg/dl (6-23) 02/14/23 06:42 Creatinine 0.52 mg/dl (0.6-1.2) L 02/14/23 06:42 POC Creatinine 0.6 mg/dl (0.6-1.3) 02/13/23 23:02 Est Cr Clr Drug Dosing 94.0 ml/min 02/14/23 06:42 Est GFR ( Amer) 117.9 ml/min 02/14/23 06:42 Est GFR (Non-Af Amer) 101.7 ml/min 02/14/23 06:42 BUN/Creatinine Ratio 26.9 (10-20) H 02/14/23 06:42 Glucose 119 mg/dl (70-99(Fasting)) H 02/14/23 06:42 POC Glucose (other) 96 mg/dl (70-99) 02/13/23 23:02 Calcium 9.3 mg/dl (8.5-10.1) 02/14/23 06:42 POC Ioniz Calcium Ramila 1.17 mmol/l (1.12-1.32) 02/13/23 23:02 Magnesium 1.6 mg/dl (1.7-2.4) L 02/14/23 06:42 Total Bilirubin 1.2 mg/dl (0.2-1.0) H 02/13/23 22:40 AST 47 U/L (13-39) H 02/13/23 22:40 ALT 37 U/L (7-52) 02/13/23 22:40 Alkaline Phosphatase 149 U/L (34-104) H 02/13/23 22:40 Total Creatine Kinase 90 U/L (26-192) 02/13/23 22:40 Troponin I High Sens 10.9 pg/ml (0-14) 02/13/23 22:40 Total Protein 7.5 gm/dl (6.0-8.3) 02/13/23 22:40 Albumin 3.9 gm/dl (3.4-5.0) 02/13/23 22:40 Globulin 3.6 gm/dl (2.5-4.0) 02/13/23 22:40 Albumin/Globulin Ratio 1.1 (0.9-2) 02/13/23 22:40 25-OH Vitamin D Total 75.2 ng/ml (30-100) 02/14/23 11:39 Urine Color Yellow 02/14/23 00:40 Urine Appearance Cloudy (Clear) A 02/14/23 00:40 Urine pH 5.0 (4.5-7.5) 02/14/23 00:40 Ur Specific Turney > 1.045 (1.000-1.030) H 02/14/23 00:40 Urine Protein Trace (Negative) H 02/14/23 00:40 Urine Glucose (UA) Negative (Negative) 02/14/23 00:40 Urine Ketones Negative (Negative) 02/14/23 00:40 Urine Blood 3+ (Negative) H 02/14/23 00:40 Urine Nitrite Positive (Negative) A 02/14/23 00:40 Urine Bilirubin Negative (Negative) 02/14/23 00:40 Urine Urobilinogen Negative (Negative) 02/14/23 00:40 Ur Leukocyte Esterase 2+ (Negative) H 02/14/23 00:40 Urine WBC (Auto) >30 /hpf (0-5) H 02/14/23 00:40 Urine RBC (Auto) >30 /hpf (0-4) H 02/14/23 00:40 U Hyaline Cast (Auto) 1-5 /lpf (0-5) 02/14/23 00:40 U Epithel Cells (Auto) 5-10 /lpf (0-5) H 02/14/23 00:40 Urine Bacteria (Auto) 2+ (Negative) H 02/14/23 00:40 Nasal Screen MRSA (PCR) Positive (Negative) A 02/14/23 10:50 Ethyl Alcohol mg/dL < 10.0 mg/dl (<10.0) 02/13/23 22:40 SARS-CoV-2, RNA, NAAT NEGATIVE (NEGATIVE) 02/13/23 23:06 Blood Type O Positive 02/13/23 23:19 Antibody Screen NEGATIVE 02/13/23 23:19 Crossmatch See Detail 02/13/23 23:19 Impressions Pelvis X-Ray 02/13/23 22:36 SINGLE VIEW PELVIS CLINICAL HISTORY: Fall. FINDINGS: An AP, portable, supine view of the pelvis is compared to study dated 04/20/2020. The skeletal structures are osteopenic. There is an impacted subcapital fracture of the right proximal femur. There is superior displacement of the humeral neck and overlying soft tissue edema. No additional fracture seen involving the left hip or the bony pelvis. A left hip arthroplasty is in near anatomic alignment. Mild to moderate arthritic change and joint space narrowing is seen in the right hip. IMPRESSION: Right femoral fracture as above. Electronically signed by: Valentin Alexis M.D. 02/14/2023 7:13 AM Chest X-Ray 02/13/23 22:46 SINGLE VIEW CHEST CLINICAL HISTORY: Preoperative examination. Hip fracture. FINDINGS: An AP, portable, semierect chest radiograph is compared to study dated 05/07/2022. The heart is mildly enlarged noting atherosclerotic calcification of the thoracic aorta. There is prominence of the pulmonary vasculature. Enlargement of the central pulmonary vessels suggests pulmonary artery hypertension. Emphysema and chronic interstitial thickening is similar to previous. Scarring/atelectasis is noted at the lung bases. No large pleural effusion or pneumothorax is seen. The skeletal structures are osteopenic. There are healed bilateral rib fractures. IMPRESSION: 1. Cardiomegaly and emphysema with prominence of the pulmonary vasculature. Correlate clinically for evidence of fluid overload/congestive change. 2. No airspace consolidation typical for pneumonia or large pleural effusion is identified. ACT 112: Negative or not required by law. Electronically signed by: Valentin Alexis M.D. 02/14/2023 7:10 AM Abdomen/Pelvis CT 02/13/23 22:47 Exam(s): CT ABDOMEN + PELVIS With Contrast IV Amt: 87ML OPTIRAY 350 EXAM: CT Abdomen and Pelvis With Intravenous Contrast CLINICAL HISTORY: Reason for exam: Trauma. TECHNIQUE: Axial computed tomography images of the abdomen and pelvis with intravenous contrast. CTDI is 35.72 mGy and DLP is 2181.37 mGy-cm. Automated exposure control was utilized for the study. A dose lowering technique was utilized adhering to the principles of ALARA. CONTRAST: Patient received 87ML OPTIRAY 350 of IV contrast COMPARISON: No relevant prior studies available. FINDINGS: Lung bases: Unremarkable. No mass. No consolidation. ABDOMEN: Liver: The liver is cirrhotic in morphology. Gallbladder and bile ducts: Unremarkable. No calcified stones. No ductal dilation. Pancreas: Unremarkable. No mass. No ductal dilation. Spleen: The spleen is enlarged measuring up to 14.8 cm. Adrenals: Unremarkable. No mass. Kidneys and ureters: Nonobstructing left lower pole intrarenal calculus. Stomach and bowel: Unremarkable. No obstruction. No mucosal thickening. PELVIS: Appendix: No findings to suggest acute appendicitis. Bladder: Unremarkable. No mass. Reproductive: Unremarkable as visualized. ABDOMEN and PELVIS: Intraperitoneal space: Unremarkable. No free air. No significant fluid collection. Bones/joints: There is a left hip arthroplasty. Please see the dedicated interpretation of the thorax for full intrathoracic findings. There is an old fracture of the right femoral neck. No dislocation. Soft tissues: Unremarkable. Vasculature: There is extensive severe atherosclerotic disease. There are innumerable varices throughout the abdomen and pelvis. There is no evidence for occlusion of the inferior vena cava. No abdominal aortic aneurysm. Lymph nodes: Unremarkable. No enlarged lymph nodes. IMPRESSION: 1. No acute traumatic injury in the abdomen or pelvis. 2. Cirrhosis and portal hypertension with extensive varices throughout the abdomen and pelvis as well as splenomegaly. 3. Old right femoral neck fracture. Electronically signed by: Shlomo Núñez MD 02/14/23 00:[address] 02/13/23 22:47 Exam(s): CT C SPINE EXAM: CT Cervical Spine Without Intravenous Contrast CLINICAL HISTORY: Reason for exam: Trauma. TECHNIQUE: Axial computed tomography images of the cervical spine without intravenous contrast. CTDI is 21.59 mGy and DLP is 619.55 mGy-cm. Automated exposure control was utilized for the study. A dose lowering technique was utilized adhering to the principles of ALARA. COMPARISON: No relevant prior studies available. FINDINGS: Limitations: The bones are diffusely demineralized which somewhat limits the evaluation. Vertebrae: There is a dextroscoliotic curvature of the cervical spine which is centered at C3-4. No acute fracture. Discs/spinal canal/neural foramina: There is advanced multilevel degenerative disease. No spinal canal stenosis. Soft tissues: Unremarkable. Vasculature: There is advanced atherosclerotic disease of the arterial vasculature. IMPRESSION: Limited examination with advanced degenerative disease. No definite acute fracture identified. Electronically signed by: Shlomo Núñez MD 02/14/23 00:[address] 02/13/23 22:47 Exam(s): CT CHEST With Contrast IV Amt: 87ML OPTIRAY 350 EXAM: CT Chest With Intravenous Contrast CLINICAL HISTORY: Reason for exam: Trauma. TECHNIQUE: Axial computed tomography images of the chest with intravenous contrast. CTDI is 35.72 mGy and DLP is 2181.37 mGy-cm. Automated exposure control was utilized for the study. A dose lowering technique was utilized adhering to the principles of ALARA. CONTRAST: Patient received 87ML OPTIRAY 350 of IV contrast COMPARISON: No relevant prior studies available. FINDINGS: Limitations: The examination is mildly limited by respiratory motion artifact. Lungs: There is cavitation of the lower lungs bilaterally suggesting chronic atypical infection. Scattered pleural blebs may be related to this or could reflect underlying emphysema. Pleural space: Unremarkable. No pneumothorax. No significant effusion. Heart: The heart is enlarged. There are coronary vascular calcifications. No significant pericardial effusion. Bones/joints: Please see the dedicated interpretation of the thoracic spine as well as the abdomen and pelvis. No acute fracture. No dislocation. Soft tissues: Unremarkable. Vasculature: See above. Lymph nodes: Unremarkable. No enlarged lymph nodes. IMPRESSION: 1. No acute intrathoracic traumatic injury. 2. Cavitating lesions at the lung bases which most likely reflect chronic atypical infection. Electronically signed by: Shlomo Núñez MD 02/14/23 00:[address] 02/13/23 22:47 Exam(s): CT HEAD Without Contrast EXAM: CT Head Without Intravenous Contrast CLINICAL HISTORY: Reason for exam: Trauma. TECHNIQUE: Axial computed tomography images of the head/brain without intravenous contrast. CTDI is 35.72 mGy and DLP is 2181.37 mGy-cm. Automated exposure control was utilized for the study. A dose lowering technique was utilized adhering to the principles of ALARA. COMPARISON: No relevant prior studies available. FINDINGS: Brain: The cerebral and cerebellar sulci are mildly prominent consistent with mild brain atrophy. There are a few areas of decreased attenuation in the deep cerebral white matter consistent with mild small vessel ischemic/degenerative changes. No hemorrhage. Ventricles: Unremarkable. No ventriculomegaly. Bones/joints: Unremarkable. No acute fracture. Soft tissues: Unremarkable. Vasculature: Atherosclerotic disease. Sinuses: Unremarkable as visualized. No acute sinusitis. Mastoid air cells: Unremarkable as visualized. No mastoid effusion. IMPRESSION: No acute findings in the head/brain. Electronically signed by: Shlomo Núñez MD 02/14/23 00:[address] 02/13/23 22:47 Exam(s): CT L SPINE With Contrast IV Amt: 87 ml optiray 350 EXAM: CT Lumbar Spine With Intravenous Contrast CLINICAL HISTORY: Reason for exam: Trauma. TECHNIQUE: Axial computed tomography images of the lumbar spine with intravenous contrast. Automated exposure control was utilized for the study. A dose lowering technique was utilized adhering to the principles of ALARA. CONTRAST: Patient received 87 ml optiray 350 of IV contrast COMPARISON: No relevant prior studies available. FINDINGS: Limitations: The bones are demineralized which mildly limits evaluation. Vertebrae: There are age indeterminate compression deformities of the L3 and L5 vertebral bodies without evidence for retropulsion. No acute traumatic subluxation. Discs/spinal canal/neural foramina: No acute findings. No spinal canal stenosis. Soft tissues: Unremarkable. Other findings: Please see the dedicated interpretation of the abdomen and pelvis for full intra-abdominal findings. IMPRESSION: Age-indeterminate compression deformities of the L3 and L5 vertebral bodies without retropulsion. MRI may be helpful for determining the chronicity of these findings. Electronically signed by: Shlomo Núñez MD 02/14/23 00:[address] 02/13/23 22:47 Exam(s): CT T SPINE IV Amt: 87 ml optiray 350 EXAM: CT Thoracic Spine With Intravenous Contrast CLINICAL HISTORY: Reason for exam: Trauma. TECHNIQUE: Axial computed tomography images of the thoracic spine with intravenous contrast. Automated exposure control was utilized for the study. A dose lowering technique was utilized adhering to the principles of ALARA. CONTRAST: Patient received 87 ml optiray 350 of IV contrast COMPARISON: No relevant prior studies available. FINDINGS: Vertebrae: The bones are diffusely demineralized. There is exaggeration of the thoracic kyphosis. No acute fracture. Discs/spinal canal/neural foramina: No acute findings. No spinal canal stenosis. Soft tissues: Unremarkable. Other findings: Please see the concurrently performed thoracic CT for intrathoracic findings. IMPRESSION: Diffuse osseous demineralization without acute injury of the thoracic spine noted. Electronically signed by: Shlomo Núñez MD 02/14/23 00:22 AM Femur X-Ray 02/14/23 09:45 XR femur RT 2V routine CLINICAL HISTORY: right femur 1 view - lateral only TECHNIQUE: 2 radiographic views of the right femur were obtained. Comparison: Comparison is made to pelvis radiograph 02/13/2023 FINDINGS: Redemonstration of a subcapital fracture of the femoral neck which appears somewhat more displaced than in the prior exam with approximately one half shaft width superior displacement of the distal fragment. Mild arthritic changes are seen. Soft tissue swelling is seen. IMPRESSION: Redemonstration of subcapital fracture of the femoral neck which appears slightly more displaced than in the prior exam. ACT 112: Negative or not required by law. Electronically signed by: Fish Carty M.D. 02/14/2023 1:32 PM Knee X-Ray 02/14/23 10:11 XR knee RT 1 or 2V routine HISTORY: 63 years-old Female right knee pain; s/p fall acute right knee pain status post fall COMPARISON: Right femur radiographs of same day TECHNIQUE: 2 views of the right knee FINDINGS: Demineralized appearance of the bones. Chondrocalcinosis. Mild to moderate tricompartmental osteoarthritis. Trace joint effusion. No acute fracture, dislocation or opaque foreign body. IMPRESSION: No acute fracture or dislocation. ACT 112: Negative or not required by law. The above report was generated using voice recognition software. It may contain grammatical, syntax or spelling errors. Electronically signed by: Mike Purdy M.D. 02/14/2023 1:18 PM (1) Closed fracture of right hip Encounter type: initial encounter Qualified Code(s): S72.001A - Fracture of unspecified part of neck of right femur, initial encounter for closed fracture
--- NOTE | 2023-02-14 18:45 | Pulmonary Consultation ---
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): (2) Chronic bronchitis: (3) Abnormal chest CT: (4) Emphysema of lung: Plan CT chest 02/13/2023 personally reviewed: Centrilobular and paraseptal emphysema appreciated bilaterally Patient also has bullous disease in the upper lobe as well as lower lobes Motion degraded study No mediastinal lymphadenopathy -- COPD with emphysema and chronic bronchitis Not in any exacerbation Not on any inhalers at home Start the patient on Anoro to be used on a daily basis SARS NAAT negative -- Abnormal chest CT It seems patient likely has combined pulmonary fibrosis with pulmonary emphysema (CPFE) Patient does not have any family history of ILD I do not think these are cavitary lesions. This is most likely worsening of her underlying CPFE Plan: Start the patient on Anoro to be used on a daily basis Would recommend atypical coverage for total of 5 days for the lungs. No need for anaerobic coverage from pulmonary perspective There is no absolute contraindication from pulmonary perspective for patient to undergo surgery Would recommend 6ml per KG of tidal volume. Keep O2 saturation between 90-92% Please note the above document was generated using voice recognition software. It may contain grammatical, syntax or spelling errors.Any formal questions or concerns about the content, text or information contained within the body of this dictation should be directly addressed to the provider for clarification. History of Present Illness Attending Physician: Dennis Cobos MD History of Present Illness 63-year-old female was admitted to the hospital as she had a mechanical fall. 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 She was not in any respiratory distress. Denies any chest pain, no headache, no nausea, no vomiting. Does complain of cough with difficulty bringing up the phlegm. No hemoptysis No dysuria, no diarrhea. No headache, no blurry vision No personal or family history of any autoimmune disease like lupus, sarcoid, Sjogren's, rheumatoid No difficulty swallowing, no dry eyes, no dry mouth No Raynaud's phenomena No night sweats, no unintentional weight loss Social history: Greater than 82-byqh-heic smoking history, quit at the age of 60 History of lung cancer in sister who was a smoker Allergies Allergy/AdvReac Type Severity Reaction Status Date / Time Penicillins Allergy Severe ANAPHYLAXIS Verified 02/14/23 02:33 oxycodone [From Percodan] Allergy Unknown Unknown Verified 02/14/23 02:33 ketorolac [From Toradol] AdvReac Severe Breathing Verified 02/14/23 02:33 difficulty hydrocodone AdvReac Intermediate Nausea Verified 02/14/23 02:33 [From Lorcet (hydrocodone)] rifaximin [From Xifaxan] AdvReac Intermediate Dizzy, Verified 02/14/23 02:33 Fell down ursodiol AdvReac Intermediate Dizzy, Verified 02/14/23 02:33 Fell down Home Medications Medication Instructions Recorded Confirmed Type Acidophilus Lactobacillus 2 cap PO HS 02/14/23 02/14/23 History acetaminophen 300 mg-codeine 30 mg 1 tab PO BID PRN Pain 02/14/23 02/14/23 History tablet acetaminophen 325 mg tablet 350 mg PO QID PRN Pain 02/14/23 02/14/23 History (Tylenol) ascorbic acid (vitamin C) 500 mg 500 mg PO BID 02/14/23 02/14/23 History tablet (Vitamin C) ihcrwrjbob-ilveckdtevtjn-shwgnytt 1 tab PO Q6H PRN Migraine Headache 02/14/23 02/14/23 History 50 mg-325 mg-40 mg tablet calcium carbonate 600 mg-vitamin 1 cap PO BID 02/14/23 02/14/23 History D3 5 mcg (200 unit) capsule (Calcium 600 + D(3)) fluticasone propionate 50 2 spray intranasal DAILY 02/14/23 02/14/23 History mcg/actuation nasal spray,suspension (Flonase Allergy Relief) hydrochlorothiazide 25 mg tablet 12.5 mg PO DAILY 02/14/23 02/14/23 History hydrocortisone 0.25 % topical cream 1 applic topical DIRECTED 02/14/23 02/14/23 History loperamide 2 mg capsule 2 mg PO Q8 PRN Diarrhea 02/14/23 02/14/23 History loratadine 10 mg tablet 10 mg PO DAILY PRN ALLERGIES 02/14/23 02/14/23 History magnesium oxide 400 mg PO BID 02/14/23 02/14/23 History metoprolol tartrate 100 mg tablet 100 mg PO BID 02/14/23 02/14/23 History pxdfwmgsadxv-hrawbuly-eqcldi tablet 1 tab PO DAILY 02/14/23 02/14/23 History ondansetron HCl 4 mg tablet 4 mg PO Q6H PRN Nausea 02/14/23 02/14/23 History polysaccharide iron complex 150 mg 150 mg PO DAILY 02/14/23 02/14/23 History iron capsule (Ferrex) potassium chloride 10 mEq 10 meq PO BID 02/14/23 02/14/23 History capsule,extended release sodium di- and 1 tab PO QID 02/14/23 02/14/23 History monophosphate-potassium phos monobasic 250 mg tablet (D-Brjz-Aznjyra) vancomycin 125 mg capsule 125 mg PO QAM 02/14/23 02/14/23 History vitamin B complex 1 tab PO DAILY 02/14/23 02/14/23 History Patient History Medical History (Updated 02/14/23 @ 18:43 by Lali Ramires MD, [facility]) Bipolar disorder Cirrhosis Depression Emphysema of lung Based on imaging Failure of outpatient treatment History of CVA (cerebrovascular accident) Osteoporosis Pulmonary nodule 9 mm RML subsolid nodule CT chest 02/29/20. F/U CT recommended 3-6 months Schizophrenia Vitamin D deficiency Surgical History History of appendectomy History of shoulder surgery History of total hip replacement femur fracture one month later with repair, both in 2007 Status post open reduction and internal fixation (ORIF) of fracture Family History Father Myocardial infarction Mother Colorectal cancer Social History Smoking Status: Former smoker Tobacco Type: Cigarettes Cigarettes Per Day: 18; Second Hand Exposure: No; Do You Dip or Chew Tobacco: No; Hx Alcohol Use: No Hx Substance Use: No Preferred Language: Brazilian Communication Ability: Effective Communication Ability Comment: pt [facility] [employer]ene[employer] Taper Required: No Beliefs That Will Affect Care: None marital status: Current Living Situation: Spouse Current Living Situation Comment: Lives with Other Information That Helps Us Care for You: No Feels Safe at Home: Yes Safety Concerns: Feels Safe At This Time Assistive Devices: Cane and Walker Review of Systems Review of Systems: All systems reviewed & are unremarkable except as noted in HPI & below Physical Exam Physical Exam: Constitutional: No acute distress HEENT: EOMI, PERRLA, hard to hear Respiratory system: Decreased air entry bilaterally, no wheeze, rhonchi, positive crackles bilateral lower lobes (? Velcro) CVS: S1-S2 positive, no murmurs or gallops Abdomen: Soft, nontender, nondistended, positive bowel sounds x4 Extremities: +2 pulses bilaterally radialis/ dorsalis pedis, no cyanosis, +1 pitting edema bilateral lower extremity, right lower extremity with external rotation Neuro: Awake alert oriented x3 Psych: Normal mood and affect G/U: Positive Bautista Skin: no rashes, warm and dry Lymphatic: no cervical or axillary lymphadenopathy Results & Data Results & Data Vital Signs (Past 12 Hours) Vital Signs Temp Pulse Resp BP Pulse Ox O2 Del Method 02/14/23 16:05 37.2 C 75 16 161/79 H 93 Room Air 02/14/23 08:00 37.0 C 106 H 18 153/77 H 92 Room Air Laboratory Results 02/14/23 06:42 02/14/23 06:42 PG Care Time/CCT Total # of Minutes Spent Total Time Spent with Patient: Total time spent is greater than 50% in coordination of care (as documented) at patient's floor/unit and/or counseling patient: Coding Level of Care Code 41004 INT INP/OBS CARE 3/75MIN Diagnoses Combined pulmonary fibrosis and emphysema (CPFE) J43.9; J84.10 Chronic bronchitis J42 Abnormal chest CT R93.89 Emphysema of lung J43.9
[2023-02-14] MEDS: AZITHROMYCIN 250 MG TAB PO SCH (20:37)
[2023-02-14] MEDS: UMECLIDINIUM/VILANTEROL 62.5/25MCG 7 PUFFS/INHALER INH SCH (20:38)
[2023-02-14] MEDS: MUPIROCIN 2% OINT 22 GM TUBE EXT SCH (20:39)
[2023-02-14] MEDS: guaiFENesin 600 MG TABCR PO SCH (20:43)
[2023-02-14] MEDS: ADVANCED PROBIOTIC 1250 MG CAPSULE PO SCH (20:46)
[2023-02-15] MEDS: HYDROmorphone INJ 0.5 MG/0.5 ML SYR IV PRN ×3 (03:00→16:56)
[2023-02-15] MEDS: AZTREONAM 2,000 MG in DEXTROSE 5% 100 ML IV SCH ×2 (05:14→16:56)
[2023-02-15] MEDS ORDERED: TRANEXAMIC ACID / 0.7% NACL 1,000 MG/100 ML BAG IV ONE ×2 (06:00→16:00)
[2023-02-15] MEDS ORDERED: VANCOMYCIN HCL 1,000 MG in SODIUM CHLORIDE 0.9% 250 ML IV SCH (06:00)
[2023-02-15 06:42] LABS: Basophils # (auto) 0.05 K/uL (0-0.2); Basophils % (auto) 0.7 %; Eosinophils # (auto) 0.19 K/uL (0-0.50); Eosinophils % (auto) 2.7 %; Hematocrit (blood only) 41.2 % (37.0-47.0); Hemoglobin 14.7 g/dl (12.0-16.0); Immature Granulocytes # (auto) 0.03 K/uL (0.01-0.20); Immature Granulocytes % (auto) 0.4 %; Lymphocytes % (auto) 12.8 %; Mean Corpuscular Hemoglobin 33.4 pg (25.0-34.0); Mean Corpuscular Hgb Conc 35.7 g/dL (32.0-36.0); Mean Corpuscular Volume 93.6 fL (80.0-100.0); Monocytes % (auto) 9.9 %; Neutrophils # (auto) 5.18 K/uL (1.40-6.50); Neutrophils % (auto) 73.5 %; Platelet Count 80 K/uL (130-400); RDW Coefficient of Variation 15.2 % (11.5-14.5); RDW Standard Deviation 52.3 fL (36.4-46.3); White Blood Count 7.05 K/ul (4.8-10.8)
[2023-02-15 06:55] LABS: Albumin Globulin Ratio 1.1 (0.9-2); Albumin Level 3.6 gm/dl (3.4-5.0); BUN Creatinine Ratio 25.5 (10-20); Bilirubin,Total 1.9 mg/dl (0.2-1.0); Calcium 9.1 mg/dl (8.5-10.1); Est GFR (African American) 121.8 ml/min; Est GFR (Non-African American) 105.1 ml/min; Globulin 3.3 gm/dl (2.5-4.0); Phosphorus 2.6 mg/dl (2.5-4.9); Total Protein 6.9 gm/dl (6.0-8.3)
[2023-02-15] MEDS: POT PHOSPHATE MONOBASIC W/ SOD TAB PO SCH ×4 (08:00→20:33)
[2023-02-15] MEDS: POTASSIUM CHLORIDE 10 MEQ TABCR PO SCH ×2 (08:00→20:33)
[2023-02-15] MEDS: AZITHROMYCIN 250 MG TAB PO SCH (08:00)
[2023-02-15] MEDS: AMPHETAMINE ASP/SULF/DEXTRAMPH 10 MG TAB PO SCH ×3 (08:00→20:50)
[2023-02-15] MEDS: guaiFENesin 600 MG TABCR PO SCH ×2 (08:00→20:33)
[2023-02-15] MEDS: IRON POLYSACCHARIDE COMPLEX 150 MG CAPSULE PO SCH (08:00)
[2023-02-15] MEDS: METOPROLOL TARTRATE 100 MG TAB PO SCH ×2 (08:00→20:33)
[2023-02-15] MEDS: CALCIUM 600MG + VIT D 400 IU TAB PO SCH ×2 (08:01→20:34)
[2023-02-15] MEDS: THIAMINE HCL 100 MG TAB PO SCH (08:01)
[2023-02-15] MEDS: CEROVITE ADV FORMULA TAB PO SCH (08:01)
[2023-02-15] MEDS: MAGNESIUM OXIDE 400 MG TAB PO SCH ×2 (08:01→20:32)
[2023-02-15] MEDS: UMECLIDINIUM/VILANTEROL 62.5/25MCG 7 PUFFS/INHALER INH SCH (08:01)
[2023-02-15] MEDS: FLUTICASONE PROPIONATE NA SPR 16 GM BTL SCH (08:01)
[2023-02-15] MEDS: ASCORBIC ACID 500 MG TAB PO SCH ×2 (08:01→20:33)
[2023-02-15] MEDS: RASPBERRY SYRUP 5 ML UDP PO SCH (08:03)
[2023-02-15] MEDS: CHOLECALCIFEROL 5,000 UNITS 125 MCG TAB PO SCH (08:03)
[2023-02-15] MEDS: MUPIROCIN 2% OINT 22 GM TUBE EXT SCH ×2 (08:04→20:21)
[2023-02-15] MEDS ORDERED: BUPIVACAINE 0.5 % 5 MG/1 ML PF 10ML VIAL ONE (08:06)
[2023-02-15] MEDS: VANCOMYCIN HCL 125 MG/2.5ML SOLN PO SCH (08:07)
--- NOTE | 2023-02-15 09:46 | Orthopedic Progress Note ---
Date of Service February 15, 2023 Assessment & Plan (1) Closed fracture of right hip: Plan: Patient is scheduled to go to the OR today. She has been n.p.o. since midnight. She has signed consent. She was positive for MRSA nasal swab is being treated . Hospitalist is transfusing platelets, for thrombocytopenia at 80 She had no questions or concerns regarding surgical intervention today. Postoperatively she will be weight-bear as tolerated with assistive device and will have posterior hip precautions after surgery. Anticipate she will need rehabilitation afterwards Case management to follow. We will make hospitalist and Dr. Ogden aware of left eye findings. Patient denies the eye being itchy at this time. Present on Admission?: Yes Admission and Anticipated Discharge Date Admission Date: February 14, 2023 Subjective Patient is a 63-year-old female who is a known patient to Dr. Ogden. She is anticipated to be taken to the OR this afternoon for a right hemiarthroplasty. She was seen bedside this morning. She reports her pain is in the groin and rates 5/10. She states the medication is helping some. She states she has not had anything to eat or drink since midnight. She offers no concerns. She denies any fever, chills, chest pain or shortness of breath. She denies any calf pain. Review of Systems Review of Systems: Please refer to HPI Physical Exam Physical Exam: General: Patient is alert and oriented x3. She is pleasant conversive. No acute distress Eye. Left eye is injected with dried yellow discharge. No active discharge. Musculoskeletal integumentary: Right leg is externally rotated tenderness in right groin. Abrasion over right knee. Negative for edema or effusion. Negative for erythema or active drainage. Sensation is intact over right lower extremity. calf is soft and nontender. Dorsal pedis pulse 1+ on right. Right lower extremity is neurovascular intact Results & Data Vital Signs (Past 12 Hours) Vital Signs Temp Pulse Resp BP Pulse Ox O2 Del Method 02/15/23 08:00 Room Air 02/15/23 07:28 37.1 C 75 16 151/73 H 94 Room Air Laboratory Results 02/15/23 02/15/23 02/14/23 Range/Units 06:11 06:11 11:39 WBC 7.05 (4.8-10.8) K/ul RBC 4.40 (4.20-5.40) M/uL Hgb 14.7 (12.0-16.0) g/dl Hct 41.2 (37.0-47.0) % MCV 93.6 (80.0-100.0) fL MCH 33.4 (25.0-34.0) pg MCHC 35.7 (32.0-36.0) g/dL RDW Std Deviation 52.3 H (36.4-46.3) fL RDW Coeff of Dewayne 15.2 H (11.5-14.5) % Plt Count 80 L (130-400) K/uL MPV 12.0 (9.4-12.4) fL Immature Gran % (Auto) 0.4 % Neut % (Auto) 73.5 % Lymph % (Auto) 12.8 % [place] % (Auto) 9.9 % Eos % (Auto) 2.7 % Baso % (Auto) 0.7 % Neut # (Auto) 5.18 (1.40-6.50) K/uL Lymph # (Auto) 0.90 L (1.2-3.4) K/uL [place] # (Auto) 0.70 H (0.11-0.59) K/uL Eos # (Auto) 0.19 (0-0.50) K/uL Baso # (Auto) 0.05 (0-0.2) K/uL Immature Gran # (Auto) 0.03 (0.01-0.20) K/uL Sodium 134 L (136-145) mmol/L Potassium 4.0 (3.5-5.1) mmol/L Chloride 101 (98-107) mmol/L Carbon Dioxide 25 (21-32) mmol/L Anion Gap 8 (3-11) BUN 12 (6-23) mg/dl Creatinine 0.47 L (0.6-1.2) mg/dl Est Cr Clr Drug Dosing 104.0 ml/min Est GFR ( Amer) 121.8 ml/min Est GFR (Non-Af Amer) 105.1 ml/min BUN/Creatinine Ratio 25.5 H (10-20) Glucose 121 H (70-99(Fasting)) mg/dl Calcium 9.1 (8.5-10.1) mg/dl Phosphorus 2.6 (2.5-4.9) mg/dl Total Bilirubin 1.9 H D (0.2-1.0) mg/dl AST 47 H (13-39) U/L ALT 34 (7-52) U/L Alkaline Phosphatase 130 H (34-104) U/L Total Protein 6.9 (6.0-8.3) gm/dl Albumin 3.6 (3.4-5.0) gm/dl Globulin 3.3 (2.5-4.0) gm/dl Albumin/Globulin Ratio 1.1 (0.9-2) 25-OH Vitamin D Total 75.2 Nasal Screen MRSA (PCR) (Negative) Antibody Screen 02/14/23 02/13/23 02/13/23 Range/Units 10:50 23:19 22:55 WBC (4.8-10.8) K/ul RBC (4.20-5.40) M/uL Hgb (12.0-16.0) g/dl Hct (37.0-47.0) % MCV (80.0-100.0) fL MCH (25.0-34.0) pg MCHC (32.0-36.0) g/dL RDW Std Deviation (36.4-46.3) fL RDW Coeff of Dewayne (11.5-14.5) % Plt Count (130-400) K/uL MPV (9.4-12.4) fL Immature Gran % (Auto) % Neut % (Auto) % Lymph % (Auto) % [place] % (Auto) % Eos % (Auto) % Baso % (Auto) % Neut # (Auto) (1.40-6.50) K/uL Lymph # (Auto) (1.2-3.4) K/uL [place] # (Auto) (0.11-0.59) K/uL Eos # (Auto) (0-0.50) K/uL Baso # (Auto) (0-0.2) K/uL Immature Gran # (Auto) (0.01-0.20) K/uL Sodium (136-145) mmol/L Potassium (3.5-5.1) mmol/L Chloride (98-107) mmol/L Carbon Dioxide (21-32) mmol/L Anion Gap (3-11) BUN (6-23) mg/dl Creatinine (0.6-1.2) mg/dl Est Cr Clr Drug Dosing ml/min Est GFR ( Amer) ml/min Est GFR (Non-Af Amer) ml/min BUN/Creatinine Ratio (10-20) Glucose (70-99(Fasting)) mg/dl Calcium (8.5-10.1) mg/dl Phosphorus (2.5-4.9) mg/dl Total Bilirubin (0.2-1.0) mg/dl AST (13-39) U/L ALT (7-52) U/L Alkaline Phosphatase (34-104) U/L Total Protein (6.0-8.3) gm/dl Albumin (3.4-5.0) gm/dl Globulin (2.5-4.0) gm/dl Albumin/Globulin Ratio (0.9-2) 25-OH Vitamin D Total TNP Nasal Screen MRSA (PCR) Positive A (Negative) Antibody Screen NEGATIVE (1) Closed fracture of right hip Encounter type: initial encounter Qualified Code(s): S72.001A - Fracture of unspecified part of neck of right femur, initial encounter for closed fracture
[2023-02-15] MEDS: CIPROFLOXACIN HCL 3.5 GM TUBE OP SCH ×3 (11:04→20:21)
[2023-02-15] MEDS ORDERED: MIDAZOLAM HCL 1 MG/ML 2ML VIAL ONE (11:29)
[2023-02-15] MEDS ORDERED: fentaNYL citrate PF 100 MCG/2 ML VIAL ONE ×2 (11:29→13:03)
--- NOTE | 2023-02-15 11:48 | Anesthesiology Consultation ---
Date of Service February 15, 2023 Assessment & Plan Chart Review Chart Review: Acceptable Risk for Surgery Consults Requested none History Surgery Operation Date: 02/15/23 12:00 Proposed Procedures p Right Hip Hemiarthroplasty - Elias Ogden MD Height/Weight Height: 5 ft 1 in Weight: 62.7 kg Allergies Allergy/AdvReac Type Severity Reaction Status Date / Time Penicillins Allergy Severe ANAPHYLAXIS Verified 02/14/23 02:33 oxycodone [From Percodan] Allergy Unknown Unknown Verified 02/14/23 02:33 ketorolac [From Toradol] AdvReac Severe Breathing Verified 02/14/23 02:33 difficulty hydrocodone AdvReac Intermediate Nausea Verified 02/14/23 02:33 [From Lorcet (hydrocodone)] rifaximin [From Xifaxan] AdvReac Intermediate Dizzy, Verified 02/14/23 02:33 Fell down ursodiol AdvReac Intermediate Dizzy, Verified 02/14/23 02:33 Fell down Medications Home Medications Medication Instructions Recorded Confirmed Last Taken Acidophilus Lactobacillus 2 cap PO HS 02/14/23 02/14/23 Unknown acetaminophen 300 mg-codeine 30 mg 1 tab PO BID PRN Pain 02/14/23 02/14/23 Unknown tablet acetaminophen 325 mg tablet 350 mg PO QID PRN Pain 02/14/23 02/14/23 Unknown (Tylenol) ascorbic acid (vitamin C) 500 mg 500 mg PO BID 02/14/23 02/14/23 Unknown tablet (Vitamin C) kkgbeqkpbk-xrgnupscvkwsk-ncoqeyxb 1 tab PO Q6H PRN Migraine Headache 02/14/23 02/14/23 Unknown 50 mg-325 mg-40 mg tablet calcium carbonate 600 mg-vitamin 1 cap PO BID 02/14/23 02/14/23 Unknown D3 5 mcg (200 unit) capsule (Calcium 600 + D(3)) fluticasone propionate 50 2 spray intranasal DAILY 02/14/23 02/14/23 Unknown mcg/actuation nasal spray,suspension (Flonase Allergy Relief) hydrochlorothiazide 25 mg tablet 12.5 mg PO DAILY 02/14/23 02/14/23 Unknown hydrocortisone 0.25 % topical cream 1 applic topical DIRECTED 02/14/23 02/14/23 Unknown loperamide 2 mg capsule 2 mg PO Q8 PRN Diarrhea 02/14/23 02/14/23 Unknown loratadine 10 mg tablet 10 mg PO DAILY PRN ALLERGIES 02/14/23 02/14/23 Unknown magnesium oxide 400 mg PO BID 02/14/23 02/14/23 Unknown metoprolol tartrate 100 mg tablet 100 mg PO BID 02/14/23 02/14/23 Unknown dstobwepuiud-ctejwvtb-aowseo tablet 1 tab PO DAILY 02/14/23 02/14/23 Unknown ondansetron HCl 4 mg tablet 4 mg PO Q6H PRN Nausea 02/14/23 02/14/23 Unknown polysaccharide iron complex 150 mg 150 mg PO DAILY 02/14/23 02/14/23 Unknown iron capsule (Ferrex) potassium chloride 10 mEq 10 meq PO BID 02/14/23 02/14/23 Unknown capsule,extended release sodium di- and 1 tab PO QID 02/14/23 02/14/23 Unknown monophosphate-potassium phos monobasic 250 mg tablet (R-Ibsa-Hgfzcuv) vancomycin 125 mg capsule 125 mg PO QAM 02/14/23 02/14/23 Unknown vitamin B complex 1 tab PO DAILY 02/14/23 02/14/23 Unknown Active Medications Generic Name Dose Route Start Last Admin Trade Name Freq PRN Reason Stop Dose Admin Acetaminophen 650 mg 02/14/23 04:02 02/14/23 10:04 Acetaminophen 325 Mg Tab PO 03/16/23 04:01 650 mg Q4H PRN Administration pain/fever Amphetamine/Dextroamphetamine 10 mg 02/14/23 09:00 02/15/23 08:00 Amphetamine Asp/Sulf/Dextramph 10 Mg Tab PO 02/28/23 08:59 10 mg TID MARIA E Administration Ascorbic Acid 500 mg 02/14/23 09:00 02/15/23 08:01 Ascorbic Acid 500 Mg Tab PO 03/16/23 08:59 500 mg BID MARIA E Administration Azithromycin 500 mg 02/14/23 18:45 02/15/23 08:00 Azithromycin 250 Mg Tab PO 02/19/23 18:44 500 mg DAILY MARIA E Administration Calcium/Vitamin D 1 tab 02/14/23 09:00 02/15/23 08:01 Calcium 600mg + Vit D 400 Iu Tab PO 03/16/23 08:59 1 tab BID MARIA E Administration Ciprofloxacin 1 appln 02/15/23 10:00 02/15/23 11:04 Ciprofloxacin Hcl 3.5 Gm Tube OP 02/20/23 09:59 1 appln TID MARIA E Administration Fluticasone Propionate 2 sprays 02/14/23 09:00 02/15/23 08:01 Fluticasone Propionate Na Spr 16 Gm Btl NA 03/16/23 08:59 2 sprays DAILY MARIA E Administration Guaifenesin 600 mg 02/14/23 21:00 02/15/23 08:00 Guaifenesin 600 Mg Tabcr PO 03/16/23 20:59 600 mg Q12 MARIA E Administration Hydromorphone HCl 0.5 mg 02/14/23 04:02 02/15/23 08:09 Hydromorphone Inj 0.5 Mg/0.5 Ml Syr IV 02/28/23 04:01 0.5 mg Q4H PRN Administration Pain Aztreonam 2,000 mg/ Dextrose 110 mls @ 100 mls/hr 02/14/23 05:00 02/15/23 06:20 IV 02/24/23 04:59 Infused Q8H MARIA E Infusion Protocol Vancomycin HCl 1,000 mg/ 270 mls @ 200 mls/hr 02/15/23 06:00 02/15/23 11:40 Sodium Chloride IV 02/16/23 05:59 200 mls/hr PREOP MARIA E Administration Lactobacillus Acidophilus 2 cap 02/14/23 21:00 02/14/23 20:46 Advanced Probiotic 1250 Mg Capsule PO 03/16/23 20:59 2 cap HS MARIA E Administration Magnesium Oxide 400 mg 02/14/23 09:00 02/15/23 08:01 Magnesium Oxide 400 Mg Tab PO 03/16/23 08:59 400 mg BID MARIA E Administration Metoprolol Tartrate 100 mg 02/14/23 09:00 02/15/23 08:00 Metoprolol Tartrate 100 Mg Tab PO 03/16/23 08:59 100 mg BID MARIA E Administration Multivitamins/Minerals 1 tab 02/14/23 09:00 02/15/23 08:01 Cerovite Adv Formula Tab PO 03/16/23 08:59 1 tab DAILY MARIA E Administration Mupirocin 1 appln 02/14/23 21:00 02/15/23 08:04 Mupirocin 2% Oint 22 Gm Tube EXT 02/19/23 20:59 1 appln BID MARIA E Administration Polysaccharide Iron Complex 150 mg 02/14/23 09:00 02/15/23 08:00 Iron Polysaccharide Complex 150 Mg Capsule PO 03/16/23 08:59 150 mg DAILY MARIA E Administration Potassium Chloride 10 meq 02/14/23 09:00 02/15/23 08:00 Potassium Chloride 10 Meq Tabcr PO 03/16/23 08:59 10 meq BID MARIA E Administration Potassium Phosphate 1 tab 02/14/23 09:00 02/15/23 08:00 Pot Phosphate Monobasic W/ Sod Tab PO 03/16/23 08:59 1 tab QID MARIA E Administration Raspberry 5 ml 02/14/23 09:00 02/15/23 08:03 Raspberry Syrup 5 Ml Udp PO 02/24/23 08:59 5 ml QAM MARIA E Administration Thiamine HCl 100 mg 02/14/23 09:00 02/15/23 08:01 Thiamine Hcl 100 Mg Tab PO 03/16/23 08:59 100 mg DAILY MARIA E Administration Umeclidinium/Vilanterol 1 puffs 02/14/23 18:45 02/15/23 08:01 Umeclidinium/Vilanterol 62.5/25mcg 7 Puffs/Inhaler INH 03/16/23 18:44 1 puffs DAILY MARIA E Administration Vancomycin HCl 125 mg 02/14/23 09:00 02/15/23 08:07 Vancomycin Hcl 125 Mg/2.5ml Soln PO 02/24/23 08:59 125 mg QAM MARIA E Administration Vitamin D 5,000 units 02/14/23 09:00 02/15/23 08:03 Cholecalciferol 5,000 Units 125 Mcg Tab PO 03/16/23 08:59 5,000 units QAM MARIA E Administration Past Medical History Medical History (Updated 02/14/23 @ 18:43 by Lali Ramires MD, [facility]) Bipolar disorder Cirrhosis Depression Emphysema of lung Based on imaging Failure of outpatient treatment History of CVA (cerebrovascular accident) Osteoporosis Pulmonary nodule 9 mm RML subsolid nodule CT chest 02/29/20. F/U CT recommended 3-6 months Schizophrenia Vitamin D deficiency Past Family History Family History Father Myocardial infarction Mother Colorectal cancer Past Surgical History Surgical History History of appendectomy History of shoulder surgery History of total hip replacement femur fracture one month later with repair, both in 2008 Status post open reduction and internal fixation (ORIF) of fracture Social History Smoking Status: Former smoker tobacco type: cigarettes Smoking cigarettes per day: 18 Do You Dip or Chew Tobacco: No Hx Alcohol Use: No Hx Substance Use: No substance use type: does not use Physical Exam Vital Signs Last Vital Signs Temp 37.1 C 02/15/23 10:45 Pulse 66 02/15/23 10:45 Resp 16 02/15/23 10:45 BP 158/76 H 02/15/23 10:45 Pulse Ox 95 02/15/23 10:45 O2 Del Method Room Air 02/15/23 08:00 Testing Laboratory Results 02/15/23 06:11 02/15/23 06:11 Urine Color Yellow 02/14/23 00:40 Urine Appearance Cloudy (Clear) A 02/14/23 00:40 Urine pH 5.0 (4.5-7.5) 02/14/23 00:40 Ur Specific [place] > 1.045 (1.000-1.030) H 02/14/23 00:40 Urine Protein Trace (Negative) H 02/14/23 00:40 Urine Glucose (UA) Negative (Negative) 02/14/23 00:40 Urine Ketones Negative (Negative) 02/14/23 00:40 Urine Nitrite Positive (Negative) A 02/14/23 00:40 Ur Leukocyte Esterase 2+ (Negative) H 02/14/23 00:40 Urine WBC (Auto) >30 /hpf (0-5) H 02/14/23 00:40 Urine RBC (Auto) >30 /hpf (0-4) H 02/14/23 00:40 U Hyaline Cast (Auto) 1-5 /lpf (0-5) 02/14/23 00:40 U Epithel Cells (Auto) 5-10 /lpf (0-5) H 02/14/23 00:40 Urine Bacteria (Auto) 2+ (Negative) H 02/14/23 00:40 Blood Type O Positive 02/13/23 23:19 Antibody Screen NEGATIVE 02/13/23 23:19 02/14/23 00:40 Urine Culture - Preliminary Urine,Straight Cath Gram negative bacilli
[2023-02-15] MEDS ORDERED: BUPIVACAINE 0.5 % 5 MG/1 ML MPF 30ML VIAL ONE (12:08)
[2023-02-15] MEDS ORDERED: LIDOCAINE 1% LOCAL 20 ML VIAL ONE (12:09)
--- NOTE | 2023-02-15 12:47 | Pulmonology Progress Note ---
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): (2) Chronic bronchitis: (3) Abnormal chest CT: (4) Emphysema of lung: Plan CT chest 02/13/2023 personally reviewed: Centrilobular and paraseptal emphysema appreciated bilaterally Patient also has bullous disease in the upper lobe as well as lower lobes Motion degraded study No mediastinal lymphadenopathy -- COPD with emphysema and chronic bronchitis Not in any exacerbation Not on any inhalers at home Start the patient on Anoro to be used on a daily basis SARS NAAT negative -- Abnormal chest CT It seems patient likely has combined pulmonary fibrosis with pulmonary emphysema (CPFE) Patient does not have any family history of ILD Autoimmune work-up ordered I do not think these are cavitary lesions. This is most likely worsening of her underlying CPFE Plan: Continue with Anoro daily basis Continue with Mucinex and flutter valve Complete the course of azithromycin for 5 days. Patient going to the OR today. There is no absolute contraindication from pulmonary perspective for patient to undergo surgery Would recommend 6ml/KG of tidal volume. Keep O2 saturation between 90-92% Case was discussed with Dr. Cobos Please note the above document was generated using voice recognition software. It may contain grammatical, syntax or spelling errors.Any formal questions or concerns about the content, text or information contained within the body of this dictation should be directly addressed to the provider for clarification. Admission and Anticipated Discharge Date Admission Date: February 14, 2023 Subjective Patient seen and examined at bedside. No acute distress, no adverse events overnight She was saturating well on room air. She has been started on inhaler and she is finding benefit from it Has been using flutter valve as well as incentive spirometry. Intubation was made with the help of a writing board. Patient's was also at bedside Denies any headache, no nausea, no vomiting Review of Systems Review of Systems: All systems reviewed & are unremarkable except as noted in Subjective Physical Exam Physical Exam: Constitutional: No acute distress HEENT: EOMI, PERRLA, hard to hear, left eye conjunctivitis Respiratory system: Decreased air entry bilaterally, no wheeze, rhonchi, positive crackles bilateral lower lobes (? Velcro) CVS: S1-S2 positive, no murmurs or gallops Abdomen: Soft, nontender, nondistended, positive bowel sounds x4 Extremities: +2 pulses bilaterally radialis/ dorsalis pedis, no cyanosis, +1 pitting edema bilateral lower extremity, right lower extremity with external rotation Neuro: Awake alert oriented x3 Psych: Normal mood and affect G/U: Positive Bautista Skin: no rashes, warm and dry Lymphatic: no cervical or axillary lymphadenopathy Results & Data Results & Data Vital Signs (Past 12 Hours) Vital Signs Temp Pulse Pulse Resp BP BP Pulse Ox 02/15/23 12:24 37.4 C 74 16 151/77 H 94 02/15/23 11:56 36.9 C 71 16 160/82 H 95 02/15/23 10:45 37.1 C 66 16 158/76 H 95 02/15/23 10:30 37.0 C 66 16 162/75 H 94 02/15/23 10:06 37.2 C 63 20 150/82 H 92 02/15/23 08:00 02/15/23 07:28 37.1 C 75 16 151/73 H 94 O2 Del Method 02/15/23 12:24 02/15/23 11:56 Room Air 02/15/23 10:45 02/15/23 10:30 02/15/23 10:06 02/15/23 08:00 Room Air 02/15/23 07:28 Room Air Laboratory Results 02/15/23 06:11 02/15/23 06:11 PG Care Time/CCT Total # of Minutes Spent Total Time Spent with Patient: Total time spent is greater than 50% in coordination of care (as documented) at patient's floor/unit and/or counseling patient: Coding Level of Care Code 58049 SUB INP/OBS CARE 3/50MIN Diagnoses Combined pulmonary fibrosis and emphysema (CPFE) J43.9; J84.10 Chronic bronchitis J42 Abnormal chest CT R93.89 Emphysema of lung J43.9
[2023-02-15] MEDS ORDERED: VANCOMYCIN HCL 1000MG/20ML VIAL ONE (12:50)
[2023-02-15] MEDS ORDERED: PROPOFOL IV EMULSION 10 MG/ML 20 ML VIAL IV ONE (13:03)
[2023-02-15] MEDS ORDERED: LIDOCAINE 2% MPF LOCAL 5 ML VIAL INFIL ONE (13:03)
[2023-02-15] MEDS ORDERED: ONDANSETRON INJ 2 MG/ML 2 ML VIAL ONE (13:03)
[2023-02-15] MEDS ORDERED: KETAMINE 50 MG/5 ML SYRINGE ONE (13:05)
[2023-02-15] MEDS ORDERED: PROMETHAZINE HCL 12.5 MG in SODIUM CHLORIDE 0.9% 50 ML IV PRN (13:09)
[2023-02-15] MEDS ORDERED: ePHEDrine sulfate 50 MG/ML AMP IV PRN (13:09)
[2023-02-15] MEDS ORDERED: ONDANSETRON INJ 2 MG/ML 2 ML VIAL IV PRN (13:09)
[2023-02-15] MEDS ORDERED: fentaNYL citrate PF 100 MCG/2 ML VIAL IV PRN (13:09)
[2023-02-15] MEDS ORDERED: ATROPINE SULFATE 0.1 MG/ML 10ML SYR IV PRN (13:09)
[2023-02-15] MEDS ORDERED: HYDROmorphone INJ 2 MG/ML SYR/VIAL IV PRN (13:09)
[2023-02-15] MEDS ORDERED: ROCURONIUM BROMIDE 10 MG/ML 5 ML VIAL IV ONE (14:38)
[2023-02-15] MEDS ORDERED: ePHEDrine sulfate 50 MG/ML AMP ONE (14:39)
[2023-02-15] MEDS ORDERED: GLYCOPYRROLATE 0.2 MG/ML VIAL ONE (14:59)
[2023-02-15] MEDS ORDERED: NEOSTIGMINE METHYLSULFATE 1 MG/ML 10ML VIAL ONE (14:59)
--- NOTE | 2023-02-15 15:34 | Operative Report ---
Post Operative Report Pre & Post Diagnosis Operation Date: 02/15/23 12:00 Pre-Op Diagnosis: Closed fracture of right hip Post-Op Diagnosis: Closed fracture of right hip I identified the patient and participated in the time-out.: Yes Procedure Operation Date: 02/15/23 12:00 Actual Procedures p Right Hip Hemiarthroplasty Cemented(Right) - Elias Ogden MD Surgeon Elias Ogden MD Supervisor [employer] Madeline Johnson PAAnneliese Estimated Blood Loss 50 Findings Consistent with Post-Op Diagnosis Specimens femoral head Description of Procedure I was present during the entire case assisting with positioning, prepping, draping, wound retraction, wound closure, dressing and abduction pillow placement. No fellow present. Please see Dr. Ogden procedure note for specifics of the case. I attest to the content of the Intraoperative Record and any orders documented therein. Any exceptions are noted below.
--- NOTE | 2023-02-15 16:05 | Hospitalist Progress Note ---
Date of Service February 15, 2023 Assessment & Plan (1) Closed fracture of right hip: (2) Fall: Plan: Past medical history of hypertension, cirrhosis, COPD, mood disorder presented after mechanical fall. Hip x-ray shows a right-sided subcapital fracture of femoral neck Patient underwent right hip hemiarthroplasty by orthopedic Will monitor postoperatively for pneumonia, ileus or DVT. PT OT tomorrow (3) Acute UTI (urinary tract infection): Plan: Urinalysis suggestive of infection Urine culture shows gram-negative bacilli Currently on antibiotics; will complete 3-day course (4) Acute bacterial conjunctivitis of left eye: Plan: Developed mucus discharge from her left eye on 02/15 Ciprofloxacin ointment for 5 days (5) Cirrhosis: (6) Thrombocythemia: Plan: History of cirrhosis of unknown etiology. CT abdomen and pelvis shows cirrhosis along with portal hypertension with extensive varices through abdomen/pelvis with splenomegaly. She appears to be compensated from cirrhosis standpoint. Was seen by GI in the past. Needs regular follow-up with GI as outpatient Thrombocytopenia likely related with cirrhosis. Patient transfused 2 units prior to surgery. Plan Other conditions; CT chest shows cavitary lesions at the lung bases; patient is saturating well on room air. Pulmonology reviewed the images; do not think that her cavitary lesion; most likely worsening of her underlying CPFE; recommend azithromycin for 5 days. 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 Hypertension: On metoprolol, hydrochlorothiazide. Will hold the hydrochlorothiazide for now. Mood disorder: Continue Adderall. Full code SCDs for DVT prophylaxis Dispositionfrom home; PT OT after surgery. Admission and Anticipated Discharge Date Admission Date: February 14, 2023 Subjective Patient seen and examined at bedside. She reports discharge from her left eye since the morning. Reports that she has history of recurrent conjunctivitis in the past as well. Denies any vision changes or pain. Review of Systems Review of Systems: All systems reviewed & are unremarkable except as noted in Subjective Physical Exam Physical Exam: Constitutional: Alert, oriented x3; not in any distress. Hard of hearing. Eyesleft eye shows mucus discharge with conjunctival injection. Respiratory: normal respiratory effort, lungs clear to auscultation, no wheeze, rales, rhonchi. Normal insp/exp effort, no accessory muscle use Cardiovascular: RRR, no murmur, no edema Vessels: no JVD or carotid bruit Chest: normal inspection of chest Abdomen: normal bowel sounds, soft, nontender, no hepatosplenomegaly Musculoskeletal: Tenderness present in right hip; overlying skin is normal. Skin: no rashes, warm and dry normal turgor Neurologic: PERRL, EOMI, accommodation nl, no face palsy, no dysarthria CN's II- XI intact bilaterally and moves all extremities Psychiatric: A+Ox3, euthymic affect Lymphatic: no cervical or axillary lymphadenopathy : deferred Results & Data Results & Data Vital Signs (Past 12 Hours) Vital Signs Temp Pulse Pulse Resp BP BP BP 02/15/23 15:45 69 18 142/73 H 02/15/23 15:36 36.6 C 78 16 142/72 H 02/15/23 12:24 37.4 C 74 16 151/77 H 02/15/23 11:56 36.9 C 71 16 160/82 H 02/15/23 10:45 37.1 C 66 16 158/76 H 02/15/23 10:30 37.0 C 66 16 162/75 H 02/15/23 10:06 37.2 C 63 20 150/82 H 02/15/23 08:00 02/15/23 07:28 37.1 C 75 16 151/73 H Pulse Ox O2 Del Method O2 Flow Rate 02/15/23 15:45 100 Oxymask 5 02/15/23 15:36 98 Oxymask 5 02/15/23 12:24 94 02/15/23 11:56 95 Room Air 02/15/23 10:45 95 02/15/23 10:30 94 02/15/23 10:06 92 02/15/23 08:00 Room Air 02/15/23 07:28 94 Room Air Laboratory Results Laboratory Results WBC 7.05 K/ul (4.8-10.8) 02/15/23 06:11 RBC 4.40 M/uL (4.20-5.40) 02/15/23 06:11 Hgb 14.7 g/dl (12.0-16.0) 02/15/23 06:11 POC Hgb 14.6 g/dl (12.0-16.0) 02/13/23 23:02 Hct 41.2 % (37.0-47.0) 02/15/23 06:11 POC Hct 43 % (37-47) 02/13/23 23:02 MCV 93.6 fL (80.0-100.0) 02/15/23 06:11 MCH 33.4 pg (25.0-34.0) 02/15/23 06:11 MCHC 35.7 g/dL (32.0-36.0) 02/15/23 06:11 RDW Std Deviation 52.3 fL (36.4-46.3) H 02/15/23 06:11 RDW Coeff of Dewayne 15.2 % (11.5-14.5) H 02/15/23 06:11 Plt Count 80 K/uL (130-400) L 02/15/23 06:11 MPV 12.0 fL (9.4-12.4) 02/15/23 06:11 Immature Gran % (Auto) 0.4 % 02/15/23 06:11 Neut % (Auto) 73.5 % 02/15/23 06:11 Lymph % (Auto) 12.8 % 02/15/23 06:11 [place] % (Auto) 9.9 % 02/15/23 06:11 Eos % (Auto) 2.7 % 02/15/23 06:11 Baso % (Auto) 0.7 % 02/15/23 06:11 Neut # (Auto) 5.18 K/uL (1.40-6.50) 02/15/23 06:11 Lymph # (Auto) 0.90 K/uL (1.2-3.4) L 02/15/23 06:11 [place] # (Auto) 0.70 K/uL (0.11-0.59) H 02/15/23 06:11 Eos # (Auto) 0.19 K/uL (0-0.50) 02/15/23 06:11 Baso # (Auto) 0.05 K/uL (0-0.2) 02/15/23 06:11 Immature Gran # (Auto) 0.03 K/uL (0.01-0.20) 02/15/23 06:11 POC Sodium 143 mmol/L (135-144) 02/13/23 23:02 Sodium 134 mmol/L (136-145) L 02/15/23 06:11 POC Potassium 3.2 mmol/L (3.3-5.0) L 02/13/23 23:02 Potassium 4.0 mmol/L (3.5-5.1) 02/15/23 06:11 POC Chloride 108 mmol/L (101-112) 02/13/23 23:02 Chloride 101 mmol/L (98-107) 02/15/23 06:11 Carbon Dioxide 25 mmol/L (21-32) 02/15/23 06:11 POC Total CO2 22 mmol/L (24-31) L 02/13/23 23:02 Anion Gap 8 (3-11) 02/15/23 06:11 POC Anion Gap 17.0 mmol/L (16-25) 02/13/23 23:02 POC BUN 18 mg/dl (7-18) 02/13/23 23:02 BUN 12 mg/dl (6-23) 02/15/23 06:11 Creatinine 0.47 mg/dl (0.6-1.2) L 02/15/23 06:11 POC Creatinine 0.6 mg/dl (0.6-1.3) 02/13/23 23:02 Est Cr Clr Drug Dosing 104.0 ml/min 02/15/23 06:11 Est GFR ( Amer) 121.8 ml/min 02/15/23 06:11 Est GFR (Non-Af Amer) 105.1 ml/min 02/15/23 06:11 BUN/Creatinine Ratio 25.5 (10-20) H 02/15/23 06:11 Glucose 121 mg/dl (70-99(Fasting)) H 02/15/23 06:11 POC Glucose (other) 96 mg/dl (70-99) 02/13/23 23:02 Calcium 9.1 mg/dl (8.5-10.1) 02/15/23 06:11 POC Ioniz Calcium Ramila 1.17 mmol/l (1.12-1.32) 02/13/23 23:02 Phosphorus 2.6 mg/dl (2.5-4.9) 02/15/23 06:11 Magnesium 1.6 mg/dl (1.7-2.4) L 02/14/23 06:42 Total Bilirubin 1.9 mg/dl (0.2-1.0) H D 02/15/23 06:11 AST 47 U/L (13-39) H 02/15/23 06:11 ALT 34 U/L (7-52) 02/15/23 06:11 Alkaline Phosphatase 130 U/L (34-104) H 02/15/23 06:11 Total Creatine Kinase 90 U/L (26-192) 02/13/23 22:40 Troponin I High Sens 10.9 pg/ml (0-14) 02/13/23 22:40 Total Protein 6.9 gm/dl (6.0-8.3) 02/15/23 06:11 Albumin 3.6 gm/dl (3.4-5.0) 02/15/23 06:11 Globulin 3.3 gm/dl (2.5-4.0) 02/15/23 06:11 Albumin/Globulin Ratio 1.1 (0.9-2) 02/15/23 06:11 25-OH Vitamin D Total 75.2 ng/ml (30-100) 02/14/23 11:39 Urine Color Yellow 02/14/23 00:40 Urine Appearance Cloudy (Clear) A 02/14/23 00:40 Urine pH 5.0 (4.5-7.5) 02/14/23 00:40 Ur Specific [place] > 1.045 (1.000-1.030) H 02/14/23 00:40 Urine Protein Trace (Negative) H 02/14/23 00:40 Urine Glucose (UA) Negative (Negative) 02/14/23 00:40 Urine Ketones Negative (Negative) 02/14/23 00:40 Urine Blood 3+ (Negative) H 02/14/23 00:40 Urine Nitrite Positive (Negative) A 02/14/23 00:40 Urine Bilirubin Negative (Negative) 02/14/23 00:40 Urine Urobilinogen Negative (Negative) 02/14/23 00:40 Ur Leukocyte Esterase 2+ (Negative) H 02/14/23 00:40 Urine WBC (Auto) >30 /hpf (0-5) H 02/14/23 00:40 Urine RBC (Auto) >30 /hpf (0-4) H 02/14/23 00:40 U Hyaline Cast (Auto) 1-5 /lpf (0-5) 02/14/23 00:40 U Epithel Cells (Auto) 5-10 /lpf (0-5) H 02/14/23 00:40 Urine Bacteria (Auto) 2+ (Negative) H 02/14/23 00:40 Nasal Screen MRSA (PCR) Positive (Negative) A 02/14/23 10:50 Ethyl Alcohol mg/dL < 10.0 mg/dl (<10.0) 02/13/23 22:40 SARS-CoV-2, RNA, NAAT NEGATIVE (NEGATIVE) 02/13/23 23:06 Blood Type O Positive 02/13/23 23:19 Antibody Screen NEGATIVE 02/13/23 23:19 Crossmatch See Detail 02/13/23 23:19 Impressions Pelvis X-Ray 02/13/23 22:36 SINGLE VIEW PELVIS CLINICAL HISTORY: Fall. FINDINGS: An AP, portable, supine view of the pelvis is compared to study dated 04/20/2020. The skeletal structures are osteopenic. There is an impacted subcapital fracture of the right proximal femur. There is superior displacement of the humeral neck and overlying soft tissue edema. No additional fracture seen involving the left hip or the bony pelvis. A left hip arthroplasty is in near anatomic alignment. Mild to moderate arthritic change and joint space narrowing is seen in the right hip. IMPRESSION: Right femoral fracture as above. Electronically signed by: Valentin Alexis M.D. 02/14/2023 7:13 AM Chest X-Ray 02/13/23 22:46 SINGLE VIEW CHEST CLINICAL HISTORY: Preoperative examination. Hip fracture. FINDINGS: An AP, portable, semierect chest radiograph is compared to study dated 05/07/2022. The heart is mildly enlarged noting atherosclerotic calcification of the thoracic aorta. There is prominence of the pulmonary vasculature. Enlargement of the central pulmonary vessels suggests pulmonary artery hypertension. Emphysema and chronic interstitial thickening is similar to previous. Scarring/atelectasis is noted at the lung bases. No large pleural effusion or pneumothorax is seen. The skeletal structures are osteopenic. There are healed bilateral rib fractures. IMPRESSION: 1. Cardiomegaly and emphysema with prominence of the pulmonary vasculature. Correlate clinically for evidence of fluid overload/congestive change. 2. No airspace consolidation typical for pneumonia or large pleural effusion is identified. ACT 112: Negative or not required by law. Electronically signed by: Valentin Alexis M.D. 02/14/2023 7:10 AM Abdomen/Pelvis CT 02/13/23 22:47 Exam(s): CT ABDOMEN + PELVIS With Contrast IV Amt: 87ML OPTIRAY 350 EXAM: CT Abdomen and Pelvis With Intravenous Contrast CLINICAL HISTORY: Reason for exam: Trauma. TECHNIQUE: Axial computed tomography images of the abdomen and pelvis with intravenous contrast. CTDI is 35.72 mGy and DLP is 2181.37 mGy-cm. Automated exposure control was utilized for the study. A dose lowering technique was utilized adhering to the principles of ALARA. CONTRAST: Patient received 87ML OPTIRAY 350 of IV contrast COMPARISON: No relevant prior studies available. FINDINGS: Lung bases: Unremarkable. No mass. No consolidation. ABDOMEN: Liver: The liver is cirrhotic in morphology. Gallbladder and bile ducts: Unremarkable. No calcified stones. No ductal dilation. Pancreas: Unremarkable. No mass. No ductal dilation. Spleen: The spleen is enlarged measuring up to 14.8 cm. Adrenals: Unremarkable. No mass. Kidneys and ureters: Nonobstructing left lower pole intrarenal calculus. Stomach and bowel: Unremarkable. No obstruction. No mucosal thickening. PELVIS: Appendix: No findings to suggest acute appendicitis. Bladder: Unremarkable. No mass. Reproductive: Unremarkable as visualized. ABDOMEN and PELVIS: Intraperitoneal space: Unremarkable. No free air. No significant fluid collection. Bones/joints: There is a left hip arthroplasty. Please see the dedicated interpretation of the thorax for full intrathoracic findings. There is an old fracture of the right femoral neck. No dislocation. Soft tissues: Unremarkable. Vasculature: There is extensive severe atherosclerotic disease. There are innumerable varices throughout the abdomen and pelvis. There is no evidence for occlusion of the inferior vena cava. No abdominal aortic aneurysm. Lymph nodes: Unremarkable. No enlarged lymph nodes. IMPRESSION: 1. No acute traumatic injury in the abdomen or pelvis. 2. Cirrhosis and portal hypertension with extensive varices throughout the abdomen and pelvis as well as splenomegaly. 3. Old right femoral neck fracture. Electronically signed by: Shlomo Núñez MD 02/14/23 00:[address] 02/13/23 22:47 Exam(s): CT C SPINE EXAM: CT Cervical Spine Without Intravenous Contrast CLINICAL HISTORY: Reason for exam: Trauma. TECHNIQUE: Axial computed tomography images of the cervical spine without intravenous contrast. CTDI is 21.59 mGy and DLP is 619.55 mGy-cm. Automated exposure control was utilized for the study. A dose lowering technique was utilized adhering to the principles of ALARA. COMPARISON: No relevant prior studies available. FINDINGS: Limitations: The bones are diffusely demineralized which somewhat limits the evaluation. Vertebrae: There is a dextroscoliotic curvature of the cervical spine which is centered at C3-4. No acute fracture. Discs/spinal canal/neural foramina: There is advanced multilevel degenerative disease. No spinal canal stenosis. Soft tissues: Unremarkable. Vasculature: There is advanced atherosclerotic disease of the arterial vasculature. IMPRESSION: Limited examination with advanced degenerative disease. No definite acute fracture identified. Electronically signed by: Shlomo Núñez MD 02/14/23 00:[address] 02/13/23 22:47 Exam(s): CT CHEST With Contrast IV Amt: 87ML OPTIRAY 350 EXAM: CT Chest With Intravenous Contrast CLINICAL HISTORY: Reason for exam: Trauma. TECHNIQUE: Axial computed tomography images of the chest with intravenous contrast. CTDI is 35.72 mGy and DLP is 2181.37 mGy-cm. Automated exposure control was utilized for the study. A dose lowering technique was utilized adhering to the principles of ALARA. CONTRAST: Patient received 87ML OPTIRAY 350 of IV contrast COMPARISON: No relevant prior studies available. FINDINGS: Limitations: The examination is mildly limited by respiratory motion artifact. Lungs: There is cavitation of the lower lungs bilaterally suggesting chronic atypical infection. Scattered pleural blebs may be related to this or could reflect underlying emphysema. Pleural space: Unremarkable. No pneumothorax. No significant effusion. Heart: The heart is enlarged. There are coronary vascular calcifications. No significant pericardial effusion. Bones/joints: Please see the dedicated interpretation of the thoracic spine as well as the abdomen and pelvis. No acute fracture. No dislocation. Soft tissues: Unremarkable. Vasculature: See above. Lymph nodes: Unremarkable. No enlarged lymph nodes. IMPRESSION: 1. No acute intrathoracic traumatic injury. 2. Cavitating lesions at the lung bases which most likely reflect chronic atypical infection. Electronically signed by: Shlomo Núñez MD 02/14/23 00:[address] 02/13/23 22:47 Exam(s): CT HEAD Without Contrast EXAM: CT Head Without Intravenous Contrast CLINICAL HISTORY: Reason for exam: Trauma. TECHNIQUE: Axial computed tomography images of the head/brain without intravenous contrast. CTDI is 35.72 mGy and DLP is 2181.37 mGy-cm. Automated exposure control was utilized for the study. A dose lowering technique was utilized adhering to the principles of ALARA. COMPARISON: No relevant prior studies available. FINDINGS: Brain: The cerebral and cerebellar sulci are mildly prominent consistent with mild brain atrophy. There are a few areas of decreased attenuation in the deep cerebral white matter consistent with mild small vessel ischemic/degenerative changes. No hemorrhage. Ventricles: Unremarkable. No ventriculomegaly. Bones/joints: Unremarkable. No acute fracture. Soft tissues: Unremarkable. Vasculature: Atherosclerotic disease. Sinuses: Unremarkable as visualized. No acute sinusitis. Mastoid air cells: Unremarkable as visualized. No mastoid effusion. IMPRESSION: No acute findings in the head/brain. Electronically signed by: Shlomo Núñez MD 02/14/23 00:[address] 02/13/23 22:47 Exam(s): CT L SPINE With Contrast IV Amt: 87 ml optiray 350 EXAM: CT Lumbar Spine With Intravenous Contrast CLINICAL HISTORY: Reason for exam: Trauma. TECHNIQUE: Axial computed tomography images of the lumbar spine with intravenous contrast. Automated exposure control was utilized for the study. A dose lowering technique was utilized adhering to the principles of ALARA. CONTRAST: Patient received 87 ml optiray 350 of IV contrast COMPARISON: No relevant prior studies available. FINDINGS: Limitations: The bones are demineralized which mildly limits evaluation. Vertebrae: There are age indeterminate compression deformities of the L3 and L5 vertebral bodies without evidence for retropulsion. No acute traumatic subluxation. Discs/spinal canal/neural foramina: No acute findings. No spinal canal stenosis. Soft tissues: Unremarkable. Other findings: Please see the dedicated interpretation of the abdomen and pelvis for full intra-abdominal findings. IMPRESSION: Age-indeterminate compression deformities of the L3 and L5 vertebral bodies without retropulsion. MRI may be helpful for determining the chronicity of these findings. Electronically signed by: Shlomo Núñez MD 02/14/23 00:[address] 02/13/23 22:47 Exam(s): CT T SPINE IV Amt: 87 ml optiray 350 EXAM: CT Thoracic Spine With Intravenous Contrast CLINICAL HISTORY: Reason for exam: Trauma. TECHNIQUE: Axial computed tomography images of the thoracic spine with intravenous contrast. Automated exposure control was utilized for the study. A dose lowering technique was utilized adhering to the principles of ALARA. CONTRAST: Patient received 87 ml optiray 350 of IV contrast COMPARISON: No relevant prior studies available. FINDINGS: Vertebrae: The bones are diffusely demineralized. There is exaggeration of the thoracic kyphosis. No acute fracture. Discs/spinal canal/neural foramina: No acute findings. No spinal canal stenosis. Soft tissues: Unremarkable. Other findings: Please see the concurrently performed thoracic CT for intrathoracic findings. IMPRESSION: Diffuse osseous demineralization without acute injury of the thoracic spine noted. Electronically signed by: Shlomo Núñez MD 02/14/23 00:22 AM Femur X-Ray 02/14/23 09:45 XR femur RT 2V routine CLINICAL HISTORY: right femur 1 view - lateral only TECHNIQUE: 2 radiographic views of the right femur were obtained. Comparison: Comparison is made to pelvis radiograph 02/13/2023 FINDINGS: Redemonstration of a subcapital fracture of the femoral neck which appears somewhat more displaced than in the prior exam with approximately one half shaft width superior displacement of the distal fragment. Mild arthritic changes are seen. Soft tissue swelling is seen. IMPRESSION: Redemonstration of subcapital fracture of the femoral neck which appears slightly more displaced than in the prior exam. ACT 112: Negative or not required by law. Electronically signed by: Fish Carty M.D. 02/14/2023 1:32 PM Knee X-Ray 02/14/23 10:11 XR knee RT 1 or 2V routine HISTORY: 63 years-old Female right knee pain; s/p fall acute right knee pain status post fall COMPARISON: Right femur radiographs of same day TECHNIQUE: 2 views of the right knee FINDINGS: Demineralized appearance of the bones. Chondrocalcinosis. Mild to moderate tricompartmental osteoarthritis. Trace joint effusion. No acute fracture, dislocation or opaque foreign body. IMPRESSION: No acute fracture or dislocation. ACT 112: Negative or not required by law. The above report was generated using voice recognition software. It may contain grammatical, syntax or spelling errors. Electronically signed by: Mike Purdy M.D. 02/14/2023 1:18 PM (1) Closed fracture of right hip Encounter type: initial encounter Qualified Code(s): S72.001A - Fracture of unspecified part of neck of right femur, initial encounter for closed fracture
[2023-02-15] MEDS ORDERED: VANCOMYCIN CONSULT ACTIVE PRN (16:47)
[2023-02-15] MEDS ORDERED: HYDROmorphone INJ 0.5 MG/0.5 ML SYR IV PRN (16:47)
[2023-02-15] MEDS ORDERED: oxyCODONE HCL IR 5 MG TAB (IMMEDIATE RELEASE) PO PRN (16:47)
--- NOTE | 2023-02-15 16:49 | Anesthesiology Progress Note ---
Date of Service February 15, 2023 Anesthesia Post Procedure Vital Signs Vital Signs: Temp Pulse Pulse Pulse Pulse Resp BP 02/15/23 16:39 36.7 C 59 L 16 02/15/23 16:25 58 L 16 02/15/23 16:15 36.4 C L 59 L 18 02/15/23 16:05 62 19 02/15/23 15:55 66 18 02/15/23 15:45 69 18 02/15/23 15:36 36.6 C 78 16 02/15/23 12:24 37.4 C 74 16 151/77 H 02/15/23 11:56 36.9 C 71 16 02/15/23 10:45 37.1 C 66 16 158/76 H 02/15/23 10:30 37.0 C 66 16 162/75 H 02/15/23 10:06 37.2 C 63 20 150/82 H 02/15/23 08:00 02/15/23 07:28 37.1 C 75 16 02/14/23 20:53 37.5 C 87 16 BP BP Pulse Ox O2 Del Method O2 Flow Rate 02/15/23 16:39 131/64 94 Room Air 02/15/23 16:25 132/64 92 Room Air 02/15/23 16:15 134/65 93 Room Air 02/15/23 16:05 141/64 H 92 Room Air 02/15/23 15:55 142/72 H 92 Room Air 02/15/23 15:45 142/73 H 100 Oxymask 5 02/15/23 15:36 142/72 H 98 Oxymask 5 02/15/23 12:24 94 02/15/23 11:56 160/82 H 95 Room Air 02/15/23 10:45 95 02/15/23 10:30 94 02/15/23 10:06 92 02/15/23 08:00 Room Air 02/15/23 07:28 151/73 H 94 Room Air 02/14/23 20:53 158/75 H 92 Room Air Pain Intensity Right Hip: Pain Intensity: 8 Transfer of Care Handoff Completed per policy Notes Mental Status: alert / awake / arousable and participated in evaluation Patient Amnestic to Procedure: Yes Nausea / Vomiting: adequately controlled Pain: adequately controlled Airway Patency, RR, SpO2: stable & adequate BP & HR: stable & adequate Hydration State: stable & adequate Anesthetic Complications: no major complications apparent and Pt Satisfied with anesthetic care
[2023-02-15] MEDS ORDERED: LACTATED RINGER'S 1,000 ML IV SCH (18:15)
--- NOTE | 2023-02-15 18:22 | Post Operative Brief Note ---
Immediate Post Op Note v1 Date of Surgery February 15, 2023 Pre & Post Diagnosis Operation Date: 02/15/23 12:00 Pre-Op Diagnosis: Closed fracture of right hip Post-Op Diagnosis: Closed fracture of right hip I identified the patient and participated in the time-out.: Yes Procedure Operation Date: 02/15/23 12:00 Actual Procedures p Right Hip Hemiarthroplasty Cemented(Right) - Elias Ogden MD Surgeon Elias Ogden MD Loading Dock Hand Madeline Johnson PAVíctorC Estimated Blood Loss 50 Findings Consistent with Post-Op Diagnosis femoral neck fracture, bone appeared oseoporotic Specimens resected femoral head Anesthesia Type General Regional Complications none Disposition Accompanied Patient To Recovery: No Disposition: Recovery Room
[2023-02-15] MEDS: traMADol HCL 50 MG TABLET PO PRN ×2 (18:30→23:02)
--- NOTE | 2023-02-15 19:21 | Operative Report (OR) ---
PREOPERATIVE DIAGNOSIS: Right femoral neck fracture. POSTOPERATIVE DIAGNOSIS: Right femoral neck fracture. PROCEDURE: Cemented right hip bipolar hemiarthroplasty. SURGEON: Elias Ogden MD. COMPUTER TESTER: Pavan Johnson. No resident or fellow available. ANESTHESIA: General with local. INDICATIONS FOR THE PROCEDURE: The patient is a 63-year-old female who is status post a fall on 02/13/2023 resulting in a femoral neck fracture. She is a household/community ambulator. Treatment options, risks and benefits were discussed, and she elected to proceed with surgical intervention. 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 She has been started on mupirocin nasal ointment and was given Betadine nasal swabs. Additionally, she was given vancomycin preoperatively. Her platelets are low and she received 2 units of platelets preoperatively. She has also been given TXA. PROCEDURE IN DETAIL: After informed consent was obtained. The patient was identified as Dee Dorantes. She identified the operative site as the right hip, which I marked with my initials. A preoperative surgical timeout was performed. A preoperative dose of intravenous antibiotics were given. She was taken to the operating room where she was positioned decubitus with the right side up. Bony prominences of the lower extremity were inspected and padded and axillary roll was inserted and her arms were folded across to her chest with pillows in between them. The Stulberg positioner was utilized and her pelvis was stabilized. Her leg was prescrubbed with Hibiclens and then prepped and draped with ChloraPrep in the usual sterile fashion. DVT prophylaxis intraoperatively with SCD on the nonoperative limb. Postoperatively, she will have SCDs, early mobility and will be started on oral anticoagulant such as Eliquis or Xarelto. Preoperative dose of TXA given. Her right leg was shortened and externally rotated compared to the opposite side. She has chronic shortening of the right limb compared to the left limb. Routine prep and drape was performed. A posterior approach to the hip was made with an incision that was about 18-20 cm long. Electrocautery was utilized down through subcutaneous tissues. The gluteal fascia and upper IT band were divided in line with the incision. Trochanteric bursa was excised. The leg was placed into mid flexion and slight internal rotation. The piriformis tendon was identified, released, and tagged. The short external rotators were identified, released, and tagged. Gluteus minimus was elevated up off of the joint capsule and a capsulotomy was performed superior, posterior and inferior. This was dissected laterally and preserved for later repair. Hematoma of the hip joint was evacuated and the femoral neck fracture was identified. The femoral shaft was retracted anterior haque and the hip was easily removed that is the femoral head was easily removed and sized to a 48 confirmed with the trials. The acetabulum looked normal. There was some degenerative fraying of the labrum, but otherwise intact. The ligamentum teres was excised. The leg was then carefully placed in the 90/90 position. Extra soft tissue at the base of the femoral neck was resected. The neck cutting guide was applied and a neck cut was made a fingerbreadth above the lesser trochanter and the residual base of the femoral neck was removed. This was followed by the box osteotome, canal finder, and lateralizing reamer. Rasping began at size 10 and proceeded up to size 15 with good fit, fill and rotational stability. The calcar was planed. Trialing was performed. There was reasonable stability with the 0 neck length on the 48 mm shell. The canal was irrigated out with pulsatile lavage. I was plugged 1-1/2 to 2 cm distal to the stem. Two bags of Simplex P cement were mixed and combined with 4 grams of powdered vancomycin. After the appropriate mixture, the canal was dried. Vacuum mixing performed. The canal was filled in retrograde fashion, pressurized and the size 14 Jayy LDFX stem was inserted at about 20-30 degrees of anteversion and pressure to avoid varus. Broaching and rasping was also performed in this position, which was her central physiologic neck anteversion. Once the cement had hardened, trialing was again performed. There was not excessive springiness and very good stability with the +7.5 neck length, which was selected and implanted. The trunnion was cleaned and the femoral head impacted along with the liner and shell. Hip was then reduced. Negative shuck test, both in full extension and mid position. At 90 degrees of hip flexion and neutral rotation, hip could be internally rotated 45 degrees. With the hip abducted towards the floor, internal rotation was about 30 degrees before dislocation occurred. Copious pulsatile lavage was performed. There was a bleeder within the short external rotators, which was ligated with a 2-0 Vicryl stick tie. Otherwise, bleeding was well controlled. The posterior joint capsule and the short external rotators were repaired back to the hip abductor mechanism and greater trochanter with sutures through the bone as appropriate. This was done using #1 Ethibond on a cutting needle. Subsequently, the gluteal fascia was reapproximated with interrupted #1 Vicryls and running 0 Vicryls. Distally, it was closed with interrupted #2 FiberWires. The skin was closed in layers with 0 and 2-0 Vicryl followed by esperanza on the skin with skin edges everted. The skin was cleaned with wet and dry sponges. Local anesthetic consisting of a 50:50 mixture of 1% lidocaine and 0.5% Marcaine was injected into the skin and subcutaneous tissues of the right hip around the incision. A dressing was applied consisting of Xeroform, 4 x 4s, ABD, and foam tape. She was returned to the supine position and a hip abduction pillow was inserted. She was then awakened from anesthesia and taken to the recovery room in stable condition. There were no complications. Blood loss was estimated to be 50 mL. Counts were correct and the resected femoral head was sent for specimen. Grossly looked normal. At the conclusion of the operation, I spoke to patient's informed him of my findings. She can be rehabilitated according to the hemiarthroplasty protocol. Total hip precautions. DVT prophylaxis beginning the morning after surgery. She may weightbear as tolerated. Components inserted were a Jayy LDFX 48 mm shell with a 28 mm liner and a 28 mm +7 neck length head on a 14 x 135 mm cemented stem. bone quality, thin cortex, no comminution, decreased cancellous bone density Job ID: [id number] [facility]
--- NOTE | 2023-02-15 19:39 | XRay Report ---
RIGHT HIP 2 VIEWS CLINICAL HISTORY: Postoperative examination. FINDINGS: AP and crosstable lateral portable views of the right hip are compared to study dated 2022. The skeletal structures are osteopenic. A right hip arthroplasty is in near anatomic alignment. No acute fracture is seen. Skin clips, soft tissue swelling, and subcutaneous gas overlying the righ t hip are expected postoperative changes. IMPRESSION: Expected postoperative findings status post right hip arthroplasty placement. No acute fr acture is seen. Electronically signed by: Valentin Alexis M.D. 02/15/2023 7:37 PM
[2023-02-15] MEDS: ADVANCED PROBIOTIC 1250 MG CAPSULE PO SCH (20:38)
[2023-02-16] MEDS ORDERED: VANCOMYCIN HCL 1,000 MG in SODIUM CHLORIDE 0.9% 500 ML IV SCH (01:30)
[2023-02-16] MEDS: AZTREONAM 2,000 MG in DEXTROSE 5% 100 ML IV SCH ×2 (01:36→08:47)
[2023-02-16] MEDS: traMADol HCL 50 MG TABLET PO PRN ×2 (05:54→12:24)
[2023-02-16] MEDS: ACETAMINOPHEN 325 MG TAB PO PRN (08:19)
[2023-02-16] MEDS: AMPHETAMINE ASP/SULF/DEXTRAMPH 10 MG TAB PO SCH ×3 (08:19→22:31)
[2023-02-16] MEDS: CALCIUM 600MG + VIT D 400 IU TAB PO SCH ×2 (08:20→22:31)
[2023-02-16] MEDS: APIXABAN 2.5 MG TAB PO SCH ×2 (08:20→22:31)
[2023-02-16] MEDS: DOCUSATE SODIUM/SENNA 50/8.6MG TAB PO SCH (08:20)
[2023-02-16] MEDS: CHOLECALCIFEROL 5,000 UNITS 125 MCG TAB PO SCH (08:20)
[2023-02-16] MEDS: MAGNESIUM OXIDE 400 MG TAB PO SCH ×2 (08:20→22:31)
[2023-02-16] MEDS: POT PHOSPHATE MONOBASIC W/ SOD TAB PO SCH ×4 (08:20→22:31)
[2023-02-16] MEDS: POTASSIUM CHLORIDE 10 MEQ TABCR PO SCH ×2 (08:20→22:31)
[2023-02-16] MEDS: CEROVITE ADV FORMULA TAB PO SCH (08:21)
[2023-02-16] MEDS: ASCORBIC ACID 500 MG TAB PO SCH ×2 (08:21→22:31)
[2023-02-16] MEDS: METOPROLOL TARTRATE 100 MG TAB PO SCH ×2 (08:21→22:31)
[2023-02-16] MEDS: guaiFENesin 600 MG TABCR PO SCH ×2 (08:21→22:31)
[2023-02-16] MEDS: THIAMINE HCL 100 MG TAB PO SCH (08:21)
[2023-02-16] MEDS: IRON POLYSACCHARIDE COMPLEX 150 MG CAPSULE PO SCH (08:22)
[2023-02-16] MEDS: AZITHROMYCIN 250 MG TAB PO SCH (08:22)
[2023-02-16] MEDS: FLUTICASONE PROPIONATE NA SPR 16 GM BTL SCH (08:23)
[2023-02-16] MEDS: UMECLIDINIUM/VILANTEROL 62.5/25MCG 7 PUFFS/INHALER INH SCH (08:23)
[2023-02-16] MEDS: RASPBERRY SYRUP 5 ML UDP PO SCH (08:23)
[2023-02-16] MEDS: MUPIROCIN 2% OINT 22 GM TUBE EXT SCH ×2 (08:25→22:32)
[2023-02-16 08:29] LABS: BUN Creatinine Ratio 29.6 (10-20); Calcium 8.5 mg/dl (8.5-10.1); Creatinine Clr Calc Pharmacy 90.5 ml/min; Est GFR (African American) 116.4 ml/min; Est GFR (Non-African American) 100.4 ml/min; Phosphorus 3.3 mg/dl (2.5-4.9); Potassium 3.8 mmol/L (3.5-5.1)
[2023-02-16 08:37] LABS: Basophils # (auto) 0.07 K/uL (0-0.2); Basophils % (auto) 0.7 %; Eosinophils # (auto) 0.19 K/uL (0-0.50); Hematocrit (blood only) 30.9 % (37.0-47.0); Immature Granulocytes # (auto) 0.04 K/uL (0.01-0.20); Immature Granulocytes % (auto) 0.4 %; Lymphocytes # (auto) 0.72 K/uL (1.2-3.4); Lymphocytes % (auto) 7.4 %; Mean Corpuscular Hemoglobin 33.2 pg (25.0-34.0); Mean Corpuscular Hgb Conc 35.6 g/dL (32.0-36.0); Mean Corpuscular Volume 93.4 fL (80.0-100.0); Mean Platelet Volume 11.2 fL (9.4-12.4); Monocytes # (auto) 1.04 K/uL (0.11-0.59); Monocytes % (auto) 10.7 %; Neutrophils # (auto) 7.66 K/uL (1.40-6.50); Neutrophils % (auto) 78.8 %; Platelet Count 97 K/uL (130-400); RDW Coefficient of Variation 15.4 % (11.5-14.5); RDW Standard Deviation 51.9 fL (36.4-46.3); Red Blood Count 3.31 M/uL (4.20-5.40); White Blood Count 9.72 K/ul (4.8-10.8)
[2023-02-16] MEDS: VANCOMYCIN HCL 125 MG/2.5ML SOLN PO SCH (08:47)
--- NOTE | 2023-02-16 09:19 | Orthopedic Progress Note ---
Date of Service February 16, 2023 Assessment & Plan (1) Closed fracture of right hip: Plan: Postop day 1-hemiarthroplasty right hip with Dr. Ogden Physical therapy and Occupational Therapy as ordered. She may weight-bear as tolerated right lower extremity with the assistance of a walker. Posterior hip precautions right hip at all times. DVT prophylaxis-SCDs and Eliquis 2.5 mg p.o. twice daily. Home medications have been resumed postoperatively. Abduction pillow while in bed and standard pillow between knees when sitting in chair. Case management for disposition needs. She most likely will need inpatient rehab versus [facility] facility. Vitamin D level is normal. Dr. Ogden present for today's visit. We will continue to follow. (2) Callous ulcer: Plan: Patient is a chronic callus, eschar on left heel. We will consult wound care nurse for evaluation and recommendations for treatment. This has been there for many months since treatment of a tibia fracture with a splint. Currently dry and Uncovered. Admission and Anticipated Discharge Date Admission Date: February 14, 2023 Subjective Patient sitting up in chair. Eating breakfast. Nurse is present in the room and states that she was a very hard transfer today basically she was just to lift from the bed and sitting into the chair. Patient states that she does feel that she is "guarding her hip". Denies any significant pain while sitting in her chair. She is mostly concerned about placement and whether she is going to need home with home health or [facility]. Physical Exam Musculoskeletal: Right hip dressing is clean, dry and intact. Nursing is to reinforce the very proximal aspect of the dressing. No edema into her right lower extremity. Calf is supple and nontender with palpation. She is able to gently flex and extend her right knee. No effusion to the right knee. Foot and ankle are nontender. She has full range of motion with dorsiflexion, plantarflexion, and inversion an d eversion with normal strength. 1+ palpable dorsalis pedis pulse. Distal sensation is normal. No evidence of foot drop. Results & Data Vital Signs (Past 12 Hours) Vital Signs Temp Pulse Resp BP Pulse Ox O2 Del Method 02/16/23 09:00 Room Air 02/16/23 07:38 37.1 C 67 17 122/63 93 Room Air 02/16/23 03:40 36.6 C 79 18 129/62 96 Room Air 02/15/23 22:32 37.0 C 69 18 102/62 93 Room Air Laboratory Results 02/16/23 02/16/23 02/16/23 Range/Units 07:48 07:48 07:48 WBC 9.72 (4.8-10.8) K/ul RBC 3.31 L (4.20-5.40) M/uL Hgb 11.0 L D (12.0-16.0) g/dl Hct 30.9 L (37.0-47.0) % MCV 93.4 (80.0-100.0) fL MCH 33.2 (25.0-34.0) pg MCHC 35.6 (32.0-36.0) g/dL RDW Std Deviation 51.9 H (36.4-46.3) fL RDW Coeff of Dewayne 15.4 H (11.5-14.5) % Plt Count 97 L (130-400) K/uL MPV 11.2 (9.4-12.4) fL Immature Gran % (Auto) 0.4 % Neut % (Auto) 78.8 % Lymph % (Auto) 7.4 % Burt % (Auto) 10.7 % Eos % (Auto) 2.0 % Baso % (Auto) 0.7 % Neut # (Auto) 7.66 H (1.40-6.50) K/uL Lymph # (Auto) 0.72 L (1.2-3.4) K/uL Burt # (Auto) 1.04 H (0.11-0.59) K/uL Eos # (Auto) 0.19 (0-0.50) K/uL Baso # (Auto) 0.07 (0-0.2) K/uL Immature Gran # (Auto) 0.04 (0.01-0.20) K/uL Sodium 134 L (136-145) mmol/L Potassium 3.8 (3.5-5.1) mmol/L Chloride 103 (98-107) mmol/L Carbon Dioxide 26 (21-32) mmol/L Anion Gap 5 (3-11) BUN 16 (6-23) mg/dl Creatinine 0.54 L (0.6-1.2) mg/dl Est Cr Clr Drug Dosing 90.5 ml/min Est GFR ( Amer) 116.4 ml/min Est GFR (Non-Af Amer) 100.4 ml/min BUN/Creatinine Ratio 29.6 H (10-20) Glucose 115 H (70-99(Fasting)) mg/dl Calcium 8.5 (8.5-10.1) mg/dl Phosphorus 3.3 (2.5-4.9) mg/dl Prealbumin Pending Rheumatoid Factor Pending Cycl Citrul Peptide IgG Pending ESTEBAN Screen Pending SS-A/Ro Antibody Pending SS-B/La Antibody Pending Sm (Harris) Antibody Pending SPANISH LANGUAGE LECTURER Antibody Pending Scl-70 Scleroderma Ab Pending Anti-ds DNA (Crithidia) Pending Chromatin Antibody Pending Anti-Centromere Ab Pending Thyroid Antimicrosomal Pending Anti-Cardiolipin IgG Ab Pending Anti-Cardiolipin IgA Ab Pending Anti-Cardiolipin IgM Ab Pending Complement C3 Pending Complement C4 Pending Blood Type Antibody Screen Crossmatch 02/13/23 Range/Units 23:19 WBC (4.8-10.8) K/ul RBC (4.20-5.40) M/uL Hgb (12.0-16.0) g/dl Hct (37.0-47.0) % MCV (80.0-100.0) fL MCH (25.0-34.0) pg MCHC (32.0-36.0) g/dL RDW Std Deviation (36.4-46.3) fL RDW Coeff of Dewayne (11.5-14.5) % Plt Count (130-400) K/uL MPV (9.4-12.4) fL Immature Gran % (Auto) % Neut % (Auto) % Lymph % (Auto) % Burt % (Auto) % Eos % (Auto) % Baso % (Auto) % Neut # (Auto) (1.40-6.50) K/uL Lymph # (Auto) (1.2-3.4) K/uL Burt # (Auto) (0.11-0.59) K/uL Eos # (Auto) (0-0.50) K/uL Baso # (Auto) (0-0.2) K/uL Immature Gran # (Auto) (0.01-0.20) K/uL Sodium (136-145) mmol/L Potassium (3.5-5.1) mmol/L Chloride (98-107) mmol/L Carbon Dioxide (21-32) mmol/L Anion Gap (3-11) BUN (6-23) mg/dl Creatinine (0.6-1.2) mg/dl Est Cr Clr Drug Dosing ml/min Est GFR ( Amer) ml/min Est GFR (Non-Af Amer) ml/min BUN/Creatinine Ratio (10-20) Glucose (70-99(Fasting)) mg/dl Calcium (8.5-10.1) mg/dl Phosphorus (2.5-4.9) mg/dl Prealbumin Rheumatoid Factor Cycl Citrul Peptide IgG ESTEBAN Screen SS-A/Ro Antibody SS-B/La Antibody Sm (Harris) Antibody SPANISH LANGUAGE LECTURER Antibody Scl-70 Scleroderma Ab Anti-ds DNA (Crithidia) Chromatin Antibody Anti-Centromere Ab Thyroid Antimicrosomal Anti-Cardiolipin IgG Ab Anti-Cardiolipin IgA Ab Anti-Cardiolipin IgM Ab Complement C3 Complement C4 Blood Type O Positive Antibody Screen NEGATIVE Crossmatch See Detail Diagnostic Findings RIGHT HIP 2 VIEWS CLINICAL HISTORY: Postoperative examination. FINDINGS: AP and crosstable lateral portable views of the right hip are compared to study dated 02/14/2023. The skeletal structures are osteopenic. A right hip arthroplasty is in near anatomic alignment. No acute fracture is seen. Skin clips, soft tissue swelling, and subcutaneous gas overlying the right hip are expected postoperative changes. IMPRESSION: Expected postoperative findings status post right hip arthroplasty placement. No acute fracture is seen. (1) Closed fracture of right hip Encounter type: initial encounter Qualified Code(s): S72.001A - Fracture of unspecified part of neck of right femur, initial encounter for closed fracture
[2023-02-16] MEDS: CIPROFLOXACIN HCL 3.5 GM TUBE OP SCH ×3 (10:27→22:32)
[2023-02-16 10:38] LABS: Prealbumin 12.5 mg/dl (20-40)
--- NOTE | 2023-02-16 11:58 | Hospitalist Progress Note ---
Date of Service February 16, 2023 Assessment & Plan (1) Closed fracture of right hip: (2) Fall: Plan: Past medical history of hypertension, cirrhosis, COPD, mood disorder presented after mechanical fall. Age-related osteoporosis with current pathological fracture, right femur Hip x-ray shows a right-sided subcapital fracture of femoral neck POD #1 R hip hemiarthroplasty by Dr. Ogden Posterior hip precautions at all times, WBAT with walker Apixaban for DVT ppx Abduction pillow while in bed and standard pillow between knees when sitting in chair. Vit D normal (3) Acute UTI (urinary tract infection): Plan: Urinalysis suggestive of infection Urine culture shows gram-negative bacilli +Lawrence cath so unable to delineate true sx will complete 3 day course, de escalate from Azactam to 1 day of Bactrim DS will complete today (4) Acute bacterial conjunctivitis of left eye: Plan: Developed mucus discharge from her left eye on 02/15 Ciprofloxacin ointment for 5 days (5) Cirrhosis: (6) Thrombocythemia: Plan: History of cirrhosis of unknown etiology. CT abdomen and pelvis shows cirrhosis along with portal hypertension with extensive varices through abdomen/pelvis with splenomegaly. She appears to be compensated from cirrhosis standpoint. Was seen by GI in the past. Needs regular follow-up with GI as outpatient Thrombocytopenia likely related with cirrhosis. Patient transfused 2 units prior to surgery. 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 Hypertension: On metoprolol, hydrochlorothiazide. Will hold the hydrochlorothiazide for now. Mood disorder: Continue Adderall. Full code Apixaban for dvt ppx per ortho Dispositionfrom home; likely to require [facility] or SNF A total of 50 minutes was spent with greater than 50% of that time personally viewing all current laboratory work and diagnostic imaging studies obtained in the ED. Additionally, I was able to view the patients past medication reconciliation and history with direct visualization in the patients chart. Included in the time above, a portion of that time was spent assessing the patient while discussing and collaborating with specialists, if necessary, and making medical decision making on treatment plan. All of the above was collaborated with Dr. Medrano. Please see addendum for further details. Admission and Anticipated Discharge Date Admission Date: February 14, 2023 Supervising Physician Co-Signing Physician Notes Attending Addendum: care coordinated with RENZO Carter please refer to her notes for full details, I agree with her notes patient seen and examined, records reviewed by myself as well on exam, patient seen sitting up in bed, comfortable, in good spirits Pain is manageable No abdominal pain, nausea vomiting no other symptoms VS noted and reviewed orientedx2 , not in distress, speaks in sentences with no effort nor accessory muscle use normal rate, regular rhythm, no murmurs clear breath sounds bilaterally non distended, soft, nontender no bipedal edema, erythema, warmth no neuro deficits All labs noted and reviewed ASSESSMENT AND PLAN diagnoses and plan of care as per RENZO Harding's notes Prem Medrano MD Subjective Patient was seen and examined in room 356-2. Follow-up right hip fracture status post right hip hemiarthroplasty. She is sitting up in bedside chair. Nurse states requires significant assistance for ambulation and will need rehab. Currently denies any pain. She is hard of hearing. Denies chest pain, shortness of breath, nausea, vomiting, abdominal pain. She is tolerating diet. Denies any eye pain or visual changes. She has Lawrence catheter in place and unable to delineate current urinary tract infection symptoms. Review of Systems Review of Systems: All systems reviewed & are unremarkable except as noted in HPI & below Physical Exam Physical Exam: Gen: WD/WN, NAD, A&O x3, sitting up in bedside chair, hard of hearing HEENT: Normocephalic, atraumatic, conjunctivae moist, sclerae anicteric, L eye with conjunctival injection, mucous membranes moist. Neck: L torticollis Lung: Clear to Auscultation bilaterally, no wheezes/rales/rhonchi Heart: Regular rate, regular rhythm, no murmurs, rubs, or gallops Abdomen: Soft, NT, ND +BS x 4 Extremities: No edema, R hip dressing CDI Skin: Warm, no rash, negative turgor. : lawrence with yellow urine Results & Data Results & Data Vital Signs (Past 12 Hours) Vital Signs Temp Pulse Resp BP Pulse Ox O2 Del Method 02/16/23 09:00 Room Air 02/16/23 07:38 37.1 C 67 17 122/63 93 Room Air 02/16/23 03:40 36.6 C 79 18 129/62 96 Room Air Laboratory Results Short CBC 02/16/23 Range/Units 07:48 WBC 9.72 (4.8-10.8) K/ul Hgb 11.0 L D (12.0-16.0) g/dl Hct 30.9 L (37.0-47.0) % Plt Count 97 L (130-400) K/uL BMP 02/16/23 07:48 Sodium 134 L Potassium 3.8 Chloride 103 Carbon Dioxide 26 BUN 16 Creatinine 0.54 L Glucose 115 H Calcium 8.5 Medications Administered Current Inpatient Medications Acetaminophen (Acetaminophen 325 Mg Tab) 650 mg PO Q4H PRN PRN Reason: pain/fever Stop: 03/16/23 04:01 Last Admin: 02/16/23 08:19 Dose: 650 mg Amphetamine/Dextroamphetamine (Amphetamine Asp/Sulf/Dextramph 10 Mg Tab) 10 mg PO TID MARIA E Stop: 02/28/23 08:59 Last Admin: 02/16/23 08:19 Dose: 10 mg Apixaban (Apixaban 2.5 Mg Tab) 2.5 mg PO BID MARIA E Stop: 03/18/23 07:59 Last Admin: 02/16/23 08:20 Dose: 2.5 mg Ascorbic Acid (Ascorbic Acid 500 Mg Tab) 500 mg PO BID MARIA E Stop: 03/16/23 08:59 Last Admin: 02/16/23 08:21 Dose: 500 mg Azithromycin (Azithromycin 250 Mg Tab) 500 mg PO DAILY MARIA E Stop: 02/19/23 18:44 Last Admin: 02/16/23 08:22 Dose: 500 mg Calcium/Vitamin D (Calcium 600mg + Vit D 400 Iu Tab) 1 tab PO BID MARIA E Stop: 03/16/23 08:59 Last Admin: 02/16/23 08:20 Dose: 1 tab Ciprofloxacin (Ciprofloxacin Hcl 3.5 Gm Tube) 1 appln OP TID MARIA E Stop: 02/20/23 09:59 Last Admin: 02/16/23 10:27 Dose: 1 appln Fluticasone Propionate (Fluticasone Propionate Na Spr 16 Gm Btl) 2 sprays NA DAILY MARIA E Stop: 03/16/23 08:59 Last Admin: 02/16/23 08:23 Dose: 2 sprays Guaifenesin (Guaifenesin 600 Mg Tabcr) 600 mg PO Q12 MARIA E Stop: 03/16/23 20:59 Last Admin: 02/16/23 08:21 Dose: 600 mg Hydromorphone HCl (Hydromorphone Inj 0.5 Mg/0.5 Ml Syr) 0.5 mg IV Q4H PRN PRN Reason: Pain Stop: 02/28/23 04:01 Last Admin: 02/15/23 16:56 Dose: 0.5 mg Hydromorphone HCl (Hydromorphone Inj 0.5 Mg/0.5 Ml Syr) 0.25 mg IV Q6H PRN PRN Reason: Pain Stop: 03/01/23 16:46 Lactobacillus Acidophilus (Advanced Probiotic 1250 Mg Capsule) 2 cap PO HS MARIA E Stop: 03/16/23 20:59 Last Admin: 02/15/23 20:38 Dose: 2 cap Magnesium Oxide (Magnesium Oxide 400 Mg Tab) 400 mg PO BID MARIA E Stop: 03/16/23 08:59 Last Admin: 02/16/23 08:20 Dose: 400 mg Metoprolol Tartrate (Metoprolol Tartrate 100 Mg Tab) 100 mg PO BID MARIA E Stop: 03/16/23 08:59 Last Admin: 02/16/23 08:21 Dose: 100 mg Multivitamins/Minerals (Cerovite Adv Formula Tab) 1 tab PO DAILY MARIA E Stop: 03/16/23 08:59 Last Admin: 02/16/23 08:21 Dose: 1 tab Mupirocin (Mupirocin 2% Oint 22 Gm Tube) 1 appln EXT BID MARIA E Stop: 02/19/23 20:59 Last Admin: 02/16/23 08:25 Dose: 1 appln Ondansetron HCl (Ondansetron Inj 2 Mg/Ml 2 Ml Vial) 4 mg IV Q6H PRN PRN Reason: Nausea Stop: 03/16/23 04:01 Oxycodone HCl (Oxycodone Hcl Ir 5 Mg Tab (Immediate Release)) 5 mg PO Q4 PRN PRN Reason: Pain Stop: 03/01/23 16:46 Polyethylene Glycol (Polyethylene (Miralax) 17 Gm Pack) 17 gm PO DAILY PRN PRN Reason: Constipation Stop: 03/16/23 04:01 Last Admin: 02/16/23 08:20 Dose: 17 gm Polysaccharide Iron Complex (Iron Polysaccharide Complex 150 Mg Capsule) 150 mg PO DAILY [facility] Stop: 03/16/23 08:59 Last Admin: 02/16/23 08:22 Dose: 150 mg Potassium Chloride (Potassium Chloride 10 Meq Tabcr) 10 meq PO BID MARIA E Stop: 03/16/23 08:59 Last Admin: 02/16/23 08:20 Dose: 10 meq Potassium Phosphate (Pot Phosphate Monobasic W/ Sod Tab) 1 tab PO QID [facility] Stop: 03/16/23 08:59 Last Admin: 02/16/23 08:20 Dose: 1 tab Raspberry (Raspberry Syrup 5 Ml Udp) 5 ml PO QAM [facility] Stop: 02/24/23 08:59 Last Admin: 02/16/23 08:23 Dose: 5 ml Senna/Docusate Sodium (Docusate Sodium/Senna 50/8.6mg Tab) 1 tab PO QAM [facility] Stop: 03/18/23 08:59 Last Admin: 02/16/23 08:20 Dose: 1 tab Thiamine HCl (Thiamine Hcl 100 Mg Tab) 100 mg PO DAILY MARIA E Stop: 03/16/23 08:59 Last Admin: 02/16/23 08:21 Dose: 100 mg Tramadol HCl (Tramadol Hcl 50 Mg Tablet) 50 mg PO Q4H PRN PRN Reason: Pain Stop: 03/17/23 16:46 Last Admin: 02/16/23 05:54 Dose: 50 mg Trimethoprim/Sulfamethoxazole (Sulfamethoxazole/Trimethoprim Ds 800/160mg Tab) 1 tab PO Q12H [facility] Stop: 02/17/23 05:01 Umeclidinium/Vilanterol (Umeclidinium/Vilanterol 62.5/25mcg 7 Puffs/Inhaler) 1 puffs INH DAILY MARIA E Stop: 03/16/23 18:44 Last Admin: 02/16/23 08:23 Dose: 1 puffs Vancomycin HCl (Vancomycin Hcl 125 Mg/2.5ml Soln) 125 mg PO QAM [facility] Stop: 02/24/23 08:59 Last Admin: 02/16/23 08:47 Dose: 125 mg Vitamin D (Cholecalciferol 5,000 Units 125 Mcg Tab) 5,000 units PO QAM [facility] Stop: 03/16/23 08:59 Last Admin: 02/16/23 08:20 Dose: 5,000 units (1) Closed fracture of right hip Encounter type: initial encounter Qualified Code(s): S72.001A - Fracture of unspecified part of neck of right femur, initial encounter for closed fracture
--- NOTE | 2023-02-16 12:55 | Pulmonology Progress Note ---
Date of Service February 16, 2023 Assessment & Plan (1) Combined pulmonary fibrosis and emphysema (CPFE): (2) Chronic bronchitis: (3) Abnormal chest CT: (4) Emphysema of lung: Plan CT chest 02/13/2023 personally reviewed: Centrilobular and paraseptal emphysema appreciated bilaterally Patient also has bullous disease in the upper lobe as well as lower lobes Motion degraded study No mediastinal lymphadenopathy -- COPD with emphysema and chronic bronchitis Not in any exacerbation Not on any inhalers at home Start the patient on Anoro to be used on a daily basis SARS NAAT negative -- Abnormal chest CT It seems patient likely has combined pulmonary fibrosis with pulmonary emphysema (CPFE) Patient does not have any family history of ILD Follow-up autoimmune work-up I do not think these are cavitary lesions. This is most likely worsening of her underlying CPFE Plan: Continue with Anoro daily basis Continue with Mucinex and flutter valve Complete the course of azithromycin for 5 days. Follow-up autoimmune work-up Outpatient pulmonary follow-up No further recommendation for pulmonary perspective. We will sign off Please call directly with any questions Case discussed with Dr. Medrano Please note the above document was generated using voice recognition software. It may contain grammatical, syntax or spelling errors.Any formal questions or concerns about the content, text or information contained within the body of this dictation should be directly addressed to the provider for clarification. Admission and Anticipated Discharge Date Admission Date: February 14, 2023 Subjective Patient seen and examined at bedside. No acute distress, no adverse events overnight. Patient did have surgery done which went well. Patient was sitting on the chair at the time of examination Denies any chest pain No headache, no nausea, no vomiting Has been using incentive spirometry as well as flutter valve. Denies any hemoptysis Review of Systems Review of Systems: All systems reviewed & are unremarkable except as noted in Subjective Physical Exam Physical Exam: Constitutional: No acute distress HEENT: EOMI, PERRLA, hard to hear, left eye conjunctivitis Respiratory system: Decreased air entry bilaterally, no wheeze, rhonchi, positive crackles bilateral lower lobes (? Velcro) CVS: S1-S2 positive, no murmurs or gallops Abdomen: Soft, nontender, nondistended, positive bowel sounds x4 Extremities: +2 pulses bilaterally radialis/ dorsalis pedis, no cyanosis, +1 pitting edema bilateral lower extremity Neuro: Awake alert oriented x3 Psych: Normal mood and affect G/U: Positive Bautista Skin: no rashes, warm and dry Lymphatic: no cervical or axillary lymphadenopathy Results & Data Results & Data Vital Signs (Past 12 Hours) Vital Signs Temp Pulse Resp BP Pulse Ox O2 Del Method 02/16/23 09:00 Room Air 02/16/23 07:38 37.1 C 67 17 122/63 93 Room Air 02/16/23 03:40 36.6 C 79 18 129/62 96 Room Air Laboratory Results 02/16/23 07:48 02/16/23 07:48 PG Care Time/CCT Total # of Minutes Spent Total Time Spent with Patient: Total time spent is greater than 50% in coordination of care (as documented) at patient's floor/unit and/or counseling patient: Coding Level of Care Code 90897 SUB INP/OBS CARE 2/35MIN Diagnoses Combined pulmonary fibrosis and emphysema (CPFE) J43.9; J84.10 Chronic bronchitis J42 Abnormal chest CT R93.89 Emphysema of lung J43.9
[2023-02-16] MEDS: SULFAMETHOXAZOLE/TRIMETHOPRIM DS 800/160MG TAB PO SCH (16:41)
[2023-02-16] MEDS: ADVANCED PROBIOTIC 1250 MG CAPSULE PO SCH (22:31)
[2023-02-17] MEDS: traMADol HCL 50 MG TABLET PO PRN ×2 (04:16→14:16)
[2023-02-17] MEDS: SULFAMETHOXAZOLE/TRIMETHOPRIM DS 800/160MG TAB PO SCH (04:25)
[2023-02-17] MEDS: METOPROLOL TARTRATE 100 MG TAB PO SCH ×2 (08:20→20:55)
[2023-02-17] MEDS: CALCIUM 600MG + VIT D 400 IU TAB PO SCH ×2 (08:20→20:54)
[2023-02-17] MEDS: MAGNESIUM OXIDE 400 MG TAB PO SCH ×2 (08:21→20:55)
[2023-02-17] MEDS: RASPBERRY SYRUP 5 ML UDP PO SCH (08:21)
[2023-02-17] MEDS: guaiFENesin 600 MG TABCR PO SCH ×2 (08:21→20:53)
[2023-02-17] MEDS: APIXABAN 2.5 MG TAB PO SCH ×2 (08:21→20:54)
[2023-02-17] MEDS: POTASSIUM CHLORIDE 10 MEQ TABCR PO SCH ×2 (08:21→20:56)
[2023-02-17] MEDS: POT PHOSPHATE MONOBASIC W/ SOD TAB PO SCH ×4 (08:21→20:56)
[2023-02-17] MEDS: CEROVITE ADV FORMULA TAB PO SCH (08:21)
[2023-02-17] MEDS: ASCORBIC ACID 500 MG TAB PO SCH ×2 (08:21→20:54)
[2023-02-17] MEDS: CIPROFLOXACIN HCL 3.5 GM TUBE OP SCH ×3 (08:22→20:54)
[2023-02-17] MEDS: CHOLECALCIFEROL 5,000 UNITS 125 MCG TAB PO SCH (08:22)
[2023-02-17] MEDS: AZITHROMYCIN 250 MG TAB PO SCH (08:22)
[2023-02-17] MEDS: DOCUSATE SODIUM/SENNA 50/8.6MG TAB PO SCH (08:22)
[2023-02-17] MEDS: THIAMINE HCL 100 MG TAB PO SCH (08:22)
[2023-02-17] MEDS: FLUTICASONE PROPIONATE NA SPR 16 GM BTL SCH (08:23)
[2023-02-17] MEDS: UMECLIDINIUM/VILANTEROL 62.5/25MCG 7 PUFFS/INHALER INH SCH (08:23)
[2023-02-17] MEDS: MUPIROCIN 2% OINT 22 GM TUBE EXT SCH ×2 (08:23→20:55)
[2023-02-17] MEDS: IRON POLYSACCHARIDE COMPLEX 150 MG CAPSULE PO SCH (08:23)
[2023-02-17] MEDS: AMPHETAMINE ASP/SULF/DEXTRAMPH 10 MG TAB PO SCH ×3 (08:33→20:53)
[2023-02-17] MEDS: VANCOMYCIN HCL 125 MG/2.5ML SOLN PO SCH (08:34)
[2023-02-17 09:13] LABS: Hematocrit (blood only) 28.9 % (37.0-47.0); Hemoglobin 10.4 g/dl (12.0-16.0); Mean Corpuscular Hemoglobin 33.7 pg (25.0-34.0); Mean Corpuscular Volume 93.5 fL (80.0-100.0); Mean Platelet Volume 11.4 fL (9.4-12.4); Platelet Count 96 K/uL (130-400); RDW Coefficient of Variation 15.9 % (11.5-14.5); RDW Standard Deviation 52.2 fL (36.4-46.3); Red Blood Count 3.09 M/uL (4.20-5.40)
--- NOTE | 2023-02-17 12:58 | Orthopedic Progress Note ---
Date of Service February 17, 2023 Assessment & Plan (1) Closed fracture of right hip: Plan: Postop day 1-hemiarthroplasty right hip with Dr. Ogden Physical therapy and Occupational Therapy as ordered. She may weight-bear as tolerated right lower extremity with the assistance of a walker. Posterior hip precautions right hip at all times. DVT prophylaxis-SCDs and Eliquis 2.5 mg p.o. twice daily. Home medications have been resumed postoperatively. Abduction pillow while in bed and standard pillow between knees when sitting in chair. Case management for disposition needs. She most likely will need inpatient rehab versus alf facility. [facility] pending. Vitamin D level is normal. Would recommend discontinuing lawrence today if able from medical standpoint. Dr. Ogden present for today's visit. We will continue to follow. (2) Callous ulcer: Plan: Patient is a chronic callus, eschar on left heel. Wound care evaluated, debrided and Aquacel in place. Admission and Anticipated Discharge Date Admission Date: February 14, 2023 Subjective Resting in bed, no complaints of pain in right hip. States she's been listening to her therapist and she walked to the bathroom today, which "felt good". Physical Exam Musculoskeletal: Right hip dressing removed, incision clean dry and intact. [place] intact. No evidence of seroma or hematoma, no active drainage. New dressings applied. Able to gently flex right knee. Calf supple. Full Ankle ROM and normal strength right leg. Distal sensation and pulses normal. Results & Data Vital Signs (Past 12 Hours) Vital Signs Temp Pulse Resp BP Pulse Ox O2 Del Method 02/17/23 07:39 37.5 C 76 16 111/63 95 Room Air Laboratory Results 02/17/23 02/17/23 Range/Units 08:35 08:35 WBC 10.80 (4.8-10.8) K/ul RBC 3.09 L (4.20-5.40) M/uL Hgb 10.4 L (12.0-16.0) g/dl Hct 28.9 L (37.0-47.0) % MCV 93.5 (80.0-100.0) fL MCH 33.7 (25.0-34.0) pg MCHC 36.0 (32.0-36.0) g/dL RDW Std Deviation 52.2 H (36.4-46.3) fL RDW Coeff of Dewayne 15.9 H (11.5-14.5) % Plt Count 96 L (130-400) K/uL MPV 11.4 (9.4-12.4) fL Phosphorus 2.2 L D (2.5-4.9) mg/dl (1) Closed fracture of right hip Encounter type: initial encounter Qualified Code(s): S72.001A - Fracture of unspecified part of neck of right femur, initial encounter for closed fracture
--- NOTE | 2023-02-17 13:18 | Pulmonology Progress Note ---
Date of Service February 17, 2023 Assessment & Plan (1) Combined pulmonary fibrosis and emphysema (CPFE): (2) Chronic bronchitis: (3) Abnormal chest CT: (4) Emphysema of lung: Plan CT chest 02/13/2023 personally reviewed: Centrilobular and paraseptal emphysema appreciated bilaterally Patient also has bullous disease in the upper lobe as well as lower lobes Motion degraded study No mediastinal lymphadenopathy -- COPD with emphysema and chronic bronchitis Not in any exacerbation Not on any inhalers at home Start the patient on Anoro to be used on a daily basis SARS NAAT negative -- Abnormal chest CT It seems patient likely has combined pulmonary fibrosis with pulmonary emphysema (CPFE) Patient does not have any family history of ILD Follow-up autoimmune work-up I do not think these are cavitary lesions. This is most likely worsening of her underlying CPFE Plan: On discharge recommend Anoro to be used on a daily basis Can use Mucinex and flutter on as-needed basis Complete the course of azithromycin for 5 days. Follow-up autoimmune work-up Outpatient pulmonary follow-up No further recommendation for pulmonary perspective. We will sign off Please call directly with any questions Please note the above document was generated using voice recognition software. It may contain grammatical, syntax or spelling errors.Any formal questions or concerns about the content, text or information contained within the body of this dictation should be directly addressed to the provider for clarification. Admission and Anticipated Discharge Date Admission Date: February 14, 2023 Subjective Patient seen and examined at bedside. No acute distress, no adverse events overnight. No chest pain, no shortness of breath Has been using flutter valve/incentive spirometry Has been using it on a daily basis Overall she states she is feeling much better Review of Systems Review of Systems: All systems reviewed & are unremarkable except as noted in Subjective Physical Exam Physical Exam: Constitutional: No acute distress HEENT: EOMI, PERRLA, hard to hear, left eye conjunctivitis Respiratory system: Decreased air entry bilaterally, no wheeze, rhonchi, positive crackles bilateral lower lobes (? Velcro) CVS: S1-S2 positive, no murmurs or gallops Abdomen: Soft, nontender, nondistended, positive bowel sounds x4 Extremities: +2 pulses bilaterally radialis/ dorsalis pedis, no cyanosis, +1 pitting edema bilateral lower extremity Neuro: Awake alert oriented x3 Psych: Normal mood and affect G/U: Positive Bautista Skin: no rashes, warm and dry Lymphatic: no cervical or axillary lymphadenopathy Results & Data Results & Data Vital Signs (Past 12 Hours) Vital Signs Temp Pulse Resp BP Pulse Ox O2 Del Method 02/17/23 12:52 96 02/17/23 07:39 37.5 C 76 16 111/63 95 Room Air Laboratory Results 02/17/23 08:35 02/16/23 07:48 PG Care Time/CCT Total # of Minutes Spent Total Time Spent with Patient: Total time spent is greater than 50% in coordination of care (as documented) at patient's floor/unit and/or counseling patient: Coding Level of Care Code 83322 SUB INP/OBS CARE 2/35MIN Diagnoses Combined pulmonary fibrosis and emphysema (CPFE) J43.9; J84.10 Chronic bronchitis J42 Abnormal chest [address] R93.89 Emphysema of lung J43.9
--- NOTE | 2023-02-17 17:24 | Hospitalist Progress Note ---
Date of Service February 17, 2023 Assessment & Plan (1) Closed fracture of right hip: (2) Fall: Plan: Past medical history of hypertension, cirrhosis, COPD, mood disorder presented after mechanical fall. Age-related osteoporosis with current pathological fracture, right femur Hip x-ray shows a right-sided subcapital fracture of femoral neck POD #2 R hip hemiarthroplasty by Dr. Ogden Posterior hip precautions at all times, WBAT with walker Apixaban for DVT ppx Abduction pillow while in bed and standard pillow between knees when sitting in chair Vit D normal (3) Acute UTI (urinary tract infection): Plan: Urinalysis suggestive of infection Urine culture shows gram-negative bacilli +Bautista cath so unable to delineate true sx Completed antibiotic course yesterday (4) Acute bacterial conjunctivitis of left eye: Plan: Developed mucus discharge from her left eye on 02/15 Ciprofloxacin ointment for 5 days (will complete 02/19) (5) Cirrhosis: (6) Thrombocythemia: Plan: History of cirrhosis of unknown etiology. CT abdomen and pelvis shows cirrhosis along with portal hypertension with extensive varices through abdomen/pelvis with splenomegaly. She appears to be compensated from cirrhosis standpoint. Was seen by GI in the past. Needs regular follow-up with GI as outpatient Thrombocytopenia likely related with cirrhosis. Patient transfused 2 units prior to surgery. 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): Plan: Pulm following They do not feel that these are cavitary lesion; most likely worsening of her underlying CPFE; recommend azithromycin for 5 days, mucinex PRN , outpatient pulm f/u Autoimmune w/u ordered by pulm and pending (8) Anemia: Plan: H&H 11.0 and 30.9 Previous hemoglobin 14.0 EBL minimal, likely dilutional Repeat CBC in a.m., no indication for transfusion at this time No signs or symptoms of bleeding Plan Callous Ulcer pt with chronic callus, eschar of left heel wound nurse consulted for treatment recs has been present since treatment of tib fracture with a splint 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 Hypertension: On metoprolol, hydrochlorothiazide. Will hold the hydrochlorothiazide for now. Mood disorder: Continue Adderall. Full code Apixaban for dvt ppx per ortho Dispositionfrom home; planning on in-patient rehab once medically stable A total of 45 minutes was spent with greater than 50% of that time personally viewing all current laboratory work and diagnostic imaging studies obtained in the ED. Additionally, I was able to view the patients past medication reconciliation and history with direct visualization in the patients chart. Included in the time above, a portion of that time was spent assessing the patient while discussing and collaborating with specialists, if necessary, and making medical decision making on treatment plan. All of the above was collaborated with Dr. Medrano. Please see addendum for further details. Admission and Anticipated Discharge Date Admission Date: February 14, 2023 Supervising Physician Co-Signing Physician Notes delayed entry date of service noted above Attending Addendum: care coordinated with RENZO Bozena Samuel please refer to her notes for full details, I agree with her notes patient seen and examined, records reviewed by myself as well diagnoses and plan of care as per RENZO Medrano MD Subjective Patient seen and examined at bedside. No acute distress, no adverse events overnight. No chest pain, no shortness of breath Has been using flutter valve/incentive spirometry Struggling with constipation but feels like she will have a bowel movement No F/C, CP, SOB, N/V, abd pain, dysuria Review of Systems Review of Systems: At least ten systems reviewed and negative except as noted in the HPI. Physical Exam Physical Exam: Gen: WD/WN, NAD, sitting in bedside chair, hard of hearing, A&Ox3 HEENT: Normocephalic, atraumatic, L eye with conjunctival injection, mucous membranes moist, L torticollis Lung: Clear to Auscultation bilaterally, no wheezes/rales/rhonchi Heart: Regular rate, regular rhythm, no murmurs, rubs, or gallops Abdomen: Soft, NT, ND +BS x 4 Extremities: Hip dressing c/d/i. No edema Skin: Warm, no rash Results & Data Results & Data Vital Signs (Past 12 Hours) Vital Signs Temp Pulse Resp BP Pulse Ox O2 Del Method 02/17/23 14:23 37.0 C 75 17 117/62 95 Room Air 02/17/23 12:52 96 02/17/23 07:39 37.5 C 76 16 111/63 95 Room Air Laboratory Results Short CBC 02/17/23 Range/Units 08:35 WBC 10.80 (4.8-10.8) K/ul Hgb 10.4 L (12.0-16.0) g/dl Hct 28.9 L (37.0-47.0) % Plt Count 96 L (130-400) K/uL Diagnostic Findings Pelvis X-Ray 02/13/23 22:36 SINGLE VIEW PELVIS CLINICAL HISTORY: Fall. FINDINGS: An AP, portable, supine view of the pelvis is compared to study dated 04/20/2020. The skeletal structures are osteopenic. There is an impacted subcapital fracture of the right proximal femur. There is superior displacement of the humeral neck and overlying soft tissue edema. No additional fracture seen involving the left hip or the bony pelvis. A left hip arthroplasty is in near anatomic alignment. Mild to moderate arthritic change and joint space narrowing is seen in the right hip. IMPRESSION: Right femoral fracture as above. Electronically signed by: Valentin Alexis M.D. 02/14/2023 7:13 AM Chest X-Ray 02/13/23 22:46 SINGLE VIEW CHEST CLINICAL HISTORY: Preoperative examination. Hip fracture. FINDINGS: An AP, portable, semierect chest radiograph is compared to study dated 05/07/2022. The heart is mildly enlarged noting atherosclerotic calcification of the thoracic aorta. There is prominence of the pulmonary vasculature. Enlargement of the central pulmonary vessels suggests pulmonary artery hypertension. Emphysema and chronic interstitial thickening is similar to previous. Scarring/atelectasis is noted at the lung bases. No large pleural effusion or pneumothorax is seen. The skeletal structures are osteopenic. There are healed bilateral rib fractures. IMPRESSION: 1. Cardiomegaly and emphysema with prominence of the pulmonary vasculature. Correlate clinically for evidence of fluid overload/congestive change. 2. No airspace consolidation typical for pneumonia or large pleural effusion is identified. ACT 112: Negative or not required by law. Electronically signed by: Valentin Alexis M.D. 02/14/2023 7:10 AM Abdomen/Pelvis CT 02/13/23 22:47 Exam(s): CT ABDOMEN + PELVIS With Contrast IV Amt: 87ML OPTIRAY 350 EXAM: CT Abdomen and Pelvis With Intravenous Contrast CLINICAL HISTORY: Reason for exam: Trauma. TECHNIQUE: Axial computed tomography images of the abdomen and pelvis with intravenous contrast. CTDI is 35.72 mGy and DLP is 2181.37 mGy-cm. Automated exposure control was utilized for the study. A dose lowering technique was utilized adhering to the principles of ALARA. CONTRAST: Patient received 87ML OPTIRAY 350 of IV contrast COMPARISON: No relevant prior studies available. FINDINGS: Lung bases: Unremarkable. No mass. No consolidation. ABDOMEN: Liver: The liver is cirrhotic in morphology. Gallbladder and bile ducts: Unremarkable. No calcified stones. No ductal dilation. Pancreas: Unremarkable. No mass. No ductal dilation. Spleen: The spleen is enlarged measuring up to 14.8 cm. Adrenals: Unremarkable. No mass. Kidneys and ureters: Nonobstructing left lower pole intrarenal calculus. Stomach and bowel: Unremarkable. No obstruction. No mucosal thickening. PELVIS: Appendix: No findings to suggest acute appendicitis. Bladder: Unremarkable. No mass. Reproductive: Unremarkable as visualized. ABDOMEN and PELVIS: Intraperitoneal space: Unremarkable. No free air. No significant fluid collection. Bones/joints: There is a left hip arthroplasty. Please see the dedicated interpretation of the thorax for full intrathoracic findings. There is an old fracture of the right femoral neck. No dislocation. Soft tissues: Unremarkable. Vasculature: There is extensive severe atherosclerotic disease. There are innumerable varices throughout the abdomen and pelvis. There is no evidence for occlusion of the inferior vena cava. No abdominal aortic aneurysm. Lymph nodes: Unremarkable. No enlarged lymph nodes. IMPRESSION: 1. No acute traumatic injury in the abdomen or pelvis. 2. Cirrhosis and portal hypertension with extensive varices throughout the abdomen and pelvis as well as splenomegaly. 3. Old right femoral neck fracture. Electronically signed by: Shlomo Núñez MD 02/14/23 00:[address] 02/13/23 22:47 Exam(s): CT C SPINE EXAM: CT Cervical Spine Without Intravenous Contrast CLINICAL HISTORY: Reason for exam: Trauma. TECHNIQUE: Axial computed tomography images of the cervical spine without intravenous contrast. CTDI is 21.59 mGy and DLP is 619.55 mGy-cm. Automated exposure control was utilized for the study. A dose lowering technique was utilized adhering to the principles of ALARA. COMPARISON: No relevant prior studies available. FINDINGS: Limitations: The bones are diffusely demineralized which somewhat limits the evaluation. Vertebrae: There is a dextroscoliotic curvature of the cervical spine which is centered at C3-4. No acute fracture. Discs/spinal canal/neural foramina: There is advanced multilevel degenerative disease. No spinal canal stenosis. Soft tissues: Unremarkable. Vasculature: There is advanced atherosclerotic disease of the arterial vasculature. IMPRESSION: Limited examination with advanced degenerative disease. No definite acute fracture identified. Electronically signed by: Shlomo Núñez MD 02/14/23 00:[address] 02/13/23 22:47 Exam(s): CT CHEST With Contrast IV Amt: 87ML OPTIRAY 350 EXAM: CT Chest With Intravenous Contrast CLINICAL HISTORY: Reason for exam: Trauma. TECHNIQUE: Axial computed tomography images of the chest with intravenous contrast. CTDI is 35.72 mGy and DLP is 2181.37 mGy-cm. Automated exposure control was utilized for the study. A dose lowering technique was utilized adhering to the principles of ALARA. CONTRAST: Patient received 87ML OPTIRAY 350 of IV contrast COMPARISON: No relevant prior studies available. FINDINGS: Limitations: The examination is mildly limited by respiratory motion artifact. Lungs: There is cavitation of the lower lungs bilaterally suggesting chronic atypical infection. Scattered pleural blebs may be related to this or could reflect underlying emphysema. Pleural space: Unremarkable. No pneumothorax. No significant effusion. Heart: The heart is enlarged. There are coronary vascular calcifications. No significant pericardial effusion. Bones/joints: Please see the dedicated interpretation of the thoracic spine as well as the abdomen and pelvis. No acute fracture. No dislocation. Soft tissues: Unremarkable. Vasculature: See above. Lymph nodes: Unremarkable. No enlarged lymph nodes. IMPRESSION: 1. No acute intrathoracic traumatic injury. 2. Cavitating lesions at the lung bases which most likely reflect chronic atypical infection. Electronically signed by: Shlomo Núñez MD 02/14/23 00:[address] 02/13/23 22:47 Exam(s): CT HEAD Without Contrast EXAM: CT Head Without Intravenous Contrast CLINICAL HISTORY: Reason for exam: Trauma. TECHNIQUE: Axial computed tomography images of the head/brain without intravenous contrast. CTDI is 35.72 mGy and DLP is 2181.37 mGy-cm. Automated exposure control was utilized for the study. A dose lowering technique was utilized adhering to the principles of ALARA. COMPARISON: No relevant prior studies available. FINDINGS: Brain: The cerebral and cerebellar sulci are mildly prominent consistent with mild brain atrophy. There are a few areas of decreased attenuation in the deep cerebral white matter consistent with mild small vessel ischemic/degenerative changes. No hemorrhage. Ventricles: Unremarkable. No ventriculomegaly. Bones/joints: Unremarkable. No acute fracture. Soft tissues: Unremarkable. Vasculature: Atherosclerotic disease. Sinuses: Unremarkable as visualized. No acute sinusitis. Mastoid air cells: Unremarkable as visualized. No mastoid effusion. IMPRESSION: No acute findings in the head/brain. Electronically signed by: Shlomo Núñez MD 02/14/23 00:[address] 02/13/23 22:47 Exam(s): CT L SPINE With Contrast IV Amt: 87 ml optiray 350 EXAM: CT Lumbar Spine With Intravenous Contrast CLINICAL HISTORY: Reason for exam: Trauma. TECHNIQUE: Axial computed tomography images of the lumbar spine with intravenous contrast. Automated exposure control was utilized for the study. A dose lowering technique was utilized adhering to the principles of ALARA. CONTRAST: Patient received 87 ml optiray 350 of IV contrast COMPARISON: No relevant prior studies available. FINDINGS: Limitations: The bones are demineralized which mildly limits evaluation. Vertebrae: There are age indeterminate compression deformities of the L3 and L5 vertebral bodies without evidence for retropulsion. No acute traumatic subluxation. Discs/spinal canal/neural foramina: No acute findings. No spinal canal stenosis. Soft tissues: Unremarkable. Other findings: Please see the dedicated interpretation of the abdomen and pelvis for full intra-abdominal findings. IMPRESSION: Age-indeterminate compression deformities of the L3 and L5 vertebral bodies without retropulsion. MRI may be helpful for determining the chronicity of these findings. Electronically signed by: Shlomo Núñez MD 02/14/23 00:[address] 02/13/23 22:47 Exam(s): CT T SPINE IV Amt: 87 ml optiray 350 EXAM: CT Thoracic Spine With Intravenous Contrast CLINICAL HISTORY: Reason for exam: Trauma. TECHNIQUE: Axial computed tomography images of the thoracic spine with intravenous contrast. Automated exposure control was utilized for the study. A dose lowering technique was utilized adhering to the principles of ALARA. CONTRAST: Patient received 87 ml optiray 350 of IV contrast COMPARISON: No relevant prior studies available. FINDINGS: Vertebrae: The bones are diffusely demineralized. There is exaggeration of the thoracic kyphosis. No acute fracture. Discs/spinal canal/neural foramina: No acute findings. No spinal canal stenosis. Soft tissues: Unremarkable. Other findings: Please see the concurrently performed thoracic CT for intrathoracic findings. IMPRESSION: Diffuse osseous demineralization without acute injury of the thoracic spine noted. Electronically signed by: Shlomo Núñez MD 02/14/23 00:22 AM Femur X-Ray 02/14/23 09:45 XR femur RT 2V routine CLINICAL HISTORY: right femur 1 view - lateral only TECHNIQUE: 2 radiographic views of the right femur were obtained. Comparison: Comparison is made to pelvis radiograph 02/13/2023 FINDINGS: Redemonstration of a subcapital fracture of the femoral neck which appears somewhat more displaced than in the prior exam with approximately one half shaft width superior displacement of the distal fragment. Mild arthritic changes are seen. Soft tissue swelling is seen. IMPRESSION: Redemonstration of subcapital fracture of the femoral neck which appears slightly more displaced than in the prior exam. ACT 112: Negative or not required by law. Electronically signed by: Fish Carty M.D. 02/14/2023 1:32 PM Knee X-Ray 02/14/23 10:11 XR knee RT 1 or 2V routine HISTORY: 63 years-old Female right knee pain; s/p fall acute right knee pain status post fall COMPARISON: Right femur radiographs of same day TECHNIQUE: 2 views of the right knee FINDINGS: Demineralized appearance of the bones. Chondrocalcinosis. Mild to moderate tricompartmental osteoarthritis. Trace joint effusion. No acute fracture, dislocation or opaque foreign body. IMPRESSION: No acute fracture or dislocation. ACT 112: Negative or not required by law. The above report was generated using voice recognition software. It may contain grammatical, syntax or spelling errors. Electronically signed by: Mike Purdy M.D. 02/14/2023 1:18 PM Hip X-Ray 02/15/23 16:47 RIGHT HIP 2 VIEWS CLINICAL HISTORY: Postoperative examination. FINDINGS: AP and crosstable lateral portable views of the right hip are compared to study dated 02/14/2023. The skeletal structures are osteopenic. A right hip arthroplasty is in near anatomic alignment. No acute fracture is seen. Skin clips, soft tissue swelling, and subcutaneous gas overlying the right hip are expected postoperative changes. IMPRESSION: Expected postoperative findings status post right hip arthroplasty placement. No acute fracture is seen. Electronically signed by: Valentin Alexis M.D. 02/15/2023 7:37 PM (1) Closed fracture of right hip Encounter type: initial encounter Qualified Code(s): S72.001A - Fracture of unspecified part of neck of right femur, initial encounter for closed fracture
[2023-02-17] MEDS: ADVANCED PROBIOTIC 1250 MG CAPSULE PO SCH (20:55)
[2023-02-18] MEDS: traMADol HCL 50 MG TABLET PO PRN (05:45)
[2023-02-18 07:58] LABS: Hematocrit (blood only) 26.2 % (37.0-47.0); Hemoglobin 9.3 g/dl (12.0-16.0); Mean Corpuscular Hemoglobin 33.8 pg (25.0-34.0); Mean Corpuscular Hgb Conc 35.5 g/dL (32.0-36.0); Mean Corpuscular Volume 95.3 fL (80.0-100.0); Mean Platelet Volume 11.5 fL (9.4-12.4); Platelet Count 80 K/uL (130-400); RDW Coefficient of Variation 16.3 % (11.5-14.5); RDW Standard Deviation 54.4 fL (36.4-46.3); Red Blood Count 2.75 M/uL (4.20-5.40); White Blood Count 6.85 K/ul (4.8-10.8)
[2023-02-18 08:20] LABS: BUN Creatinine Ratio 26.5 (10-20); Calcium 8.3 mg/dl (8.6-10.3); Creatinine Clr Calc Pharmacy 99.7 ml/min; Est GFR (African American) 120.2 ml/min; Est GFR (Non-African American) 103.7 ml/min; Phosphorus 2.4 mg/dl (2.5-4.9); Potassium 3.5 mmol/L (3.5-5.1)
[2023-02-18] MEDS: UMECLIDINIUM/VILANTEROL 62.5/25MCG 7 PUFFS/INHALER INH SCH (08:25)
[2023-02-18] MEDS: AMPHETAMINE ASP/SULF/DEXTRAMPH 10 MG TAB PO SCH (08:25)
[2023-02-18] MEDS: VANCOMYCIN HCL 125 MG/2.5ML SOLN PO SCH (08:25)
[2023-02-18] MEDS: FLUTICASONE PROPIONATE NA SPR 16 GM BTL SCH (08:25)
[2023-02-18] MEDS: CIPROFLOXACIN HCL 3.5 GM TUBE OP SCH (08:26)
[2023-02-18] MEDS: POT PHOSPHATE MONOBASIC W/ SOD TAB PO SCH ×2 (08:26→12:43)
[2023-02-18] MEDS: MUPIROCIN 2% OINT 22 GM TUBE EXT SCH (08:26)
[2023-02-18] MEDS: ASCORBIC ACID 500 MG TAB PO SCH (08:27)
[2023-02-18] MEDS: IRON POLYSACCHARIDE COMPLEX 150 MG CAPSULE PO SCH (08:27)
[2023-02-18] MEDS: METOPROLOL TARTRATE 100 MG TAB PO SCH (08:27)
[2023-02-18] MEDS: MAGNESIUM OXIDE 400 MG TAB PO SCH (08:27)
[2023-02-18] MEDS: AZITHROMYCIN 250 MG TAB PO SCH (08:27)
[2023-02-18] MEDS: guaiFENesin 600 MG TABCR PO SCH (08:27)
[2023-02-18] MEDS: POTASSIUM CHLORIDE 10 MEQ TABCR PO SCH (08:27)
[2023-02-18] MEDS: CALCIUM 600MG + VIT D 400 IU TAB PO SCH (08:27)
[2023-02-18] MEDS: DOCUSATE SODIUM/SENNA 50/8.6MG TAB PO SCH (08:27)
[2023-02-18] MEDS: APIXABAN 2.5 MG TAB PO SCH (08:27)
[2023-02-18] MEDS: CHOLECALCIFEROL 5,000 UNITS 125 MCG TAB PO SCH (08:27)
[2023-02-18] MEDS: CEROVITE ADV FORMULA TAB PO SCH (08:27)
[2023-02-18] MEDS: RASPBERRY SYRUP 5 ML UDP PO SCH (08:28)
[2023-02-18] MEDS: THIAMINE HCL 100 MG TAB PO SCH (08:28)
--- NOTE | 2023-02-18 09:42 | Orthopedic Progress Note ---
Date of Service February 18, 2023 Assessment & Plan (1) Closed fracture of right hip: Plan: Postop day 3-hemiarthroplasty right hip with Dr. Ogden New dressing was applied today. No signs of infection or hematoma Continue with weight-bear as tolerated right lower extremity with the assistance of a walker. Posterior hip precautions right hip at all times. DVT prophylaxis-SCDs and Eliquis 2.5 mg p.o. twice daily. Abduction pillow while in bed and standard pillow between knees when sitting in chair. Case management for disposition needs. She most likely will need inpatient rehab versus alf facility. [facility] pending. Vitamin D level is normal. We will continue to follow. Present on Admission?: Yes (2) Callous ulcer: Plan: Patient is a chronic callus, eschar on left heel. Wound care evaluated, debrided and Aquacel in place. Admission and Anticipated Discharge Date Admission Date: February 14, 2023 Subjective Patient is a 63-year-old female who is a known patient to Dr. Ogden. She is status post a right hemiarthroplasty postop day #3. She reports she is doing great. She states she is not having any pain in her hip like she was prior to surgery. She states the pain is very mild and rates 2/10. She denies any calf pain, chest pain shortness of breath. She denies any fever or chills. [facility] Review of Systems Review of Systems: Please refer to HPI Physical Exam Physical Exam: General: Patient is alert and oriented x3. Hard of hearing. She is pleasant conversive. No acute distress Musculoskeletal integumentary: Right hip dressing is snf off negative for any soiling. This was removed. The incision is well approximated with esperanza. Negative for any drainage or erythema. Mild ecchymosis which is to be anticipated. Negative for Roxanna duration or fluctuance. New dressing applied while maintaining hip precautions with abduction pillow between legs and with the assistance of nurse. Dressing: Xeroform, ABD pads and Medipore tape. Abrasion over right knee unchanged and negative for edema or effusion. Negative for erythema or active drainage. Patient is able to tolerate gentle range of motion of the hip and knee. calf is soft and nontender. Dorsal pedis pulse 1+ on right. Left lower extremity was repositioned with pillow underneath heel on left. Dressing remains on posterior heel. Right lower extremity is neurovascular intact Results & Data Vital Signs (Past 12 Hours) Vital Signs Temp Pulse Resp BP Pulse Ox O2 Del Method 02/18/23 07:00 36.5 C 80 17 111/52 L 95 Room Air Laboratory Results 02/18/23 02/18/23 Range/Units 07:21 07:21 WBC 6.85 (4.8-10.8) K/ul RBC 2.75 L (4.20-5.40) M/uL Hgb 9.3 L (12.0-16.0) g/dl Hct 26.2 L (37.0-47.0) % MCV 95.3 (80.0-100.0) fL MCH 33.8 (25.0-34.0) pg MCHC 35.5 (32.0-36.0) g/dL RDW Std Deviation 54.4 H (36.4-46.3) fL RDW Coeff of Dewayne 16.3 H (11.5-14.5) % Plt Count 80 L (130-400) K/uL MPV 11.5 (9.4-12.4) fL Sodium 137 (136-145) mmol/L Potassium 3.5 (3.5-5.1) mmol/L Chloride 106 (98-107) mmol/L Carbon Dioxide 25 (21-32) mmol/L Anion Gap 6 (3-11) BUN 13 (6-23) mg/dl Creatinine 0.49 L (0.6-1.2) mg/dl Est Cr Clr Drug Dosing 99.7 ml/min Est GFR ( Amer) 120.2 ml/min Est GFR (Non-Af Amer) 103.7 ml/min BUN/Creatinine Ratio 26.5 H (10-20) Glucose 113 H (70-99(Fasting)) mg/dl Calcium 8.3 L (8.6-10.3) mg/dl Phosphorus 2.4 L (2.5-4.9) mg/dl (1) Closed fracture of right hip Encounter type: initial encounter Qualified Code(s): S72.001A - Fracture of unspecified part of neck of right femur, initial encounter for closed fracture
--- NOTE | 2023-02-18 12:32 | Discharge Summary ---
Discharge Summary Date of Service February 18, 2023 Notes For Next Care Provider R subcapital fracture of femoral neck in setting of age-related osteoporosis 2/2 fall at home. S/p R hip hemiarthroplasty by Dr. Ogden. Medication Changes From Visit Eliquis BID for VTE ppx, tramadol PRN severe pain, complete Cipro eye ointment for L eye conjunctivitis Admission HPI Per Admitting Provider This is a 63-year-old female with past medical history significant for hypertension; COPD; cirrhosis of unclear etiology; history of ADD; mood disorder; schizophrenia; recurrent C. diff infection, on chronic vancomycin suppression; chronic anemia, ; chronic thrombocytopenia; history of left tibiofibular fracture; history of left foot wound infected and bacteremia with MRSA and Acinetobacter baumannii. Was treated with daptomycin for 6 weeks, finished in July 2022, and also p.o. Levaquin. In April 2022, she had left tibia fracture, was nonweightbearing, and splint placed. She also has history of Klebsiella pneumoniae UTI in the past, lives at home with her . Ambulates with a cane and uses a walker when she takes her dog outside. Today, when she took her dog outside, she fell from standing and she hit the ground on the grass, hit her head. Denies any loss of consciousness, and brought in here and found to have right hip fracture. Complains of pain in the hip region. The patient is very hard of hearing, has to write in a paper. Denies any headache. Vision is okay. No cough, no fevers, no nausea, no chest pain, no shortness of breath, no abdominal pain. Normal bowel and bladder movements. Hemodynamically stable. Admission Exam Per Admitting Provider GENERAL: The patient is of moderate build, not in acute distress, hard of hearing. VITAL SIGNS: Temperature 35.5, pulse 101, respiratory rate 21, blood pressure 124/60, oxygen 95% on room air. HEENT: Pupils equal, round, and reactive to light. Oral mucosa dry. NECK: No JVD, no neck masses. CARDIOVASCULAR: S1 and S2 heard. Regular rate and rhythm. No murmur, no gallop. RESPIRATORY SYSTEM: Normal AP diameter. No accessory muscle use. No wheezing or crackles. ABDOMEN: Soft, bowel sounds present, nontender, no distention. CENTRAL NERVOUS SYSTEM: Alert, awake, and oriented, answers questions appropriately, very hard of hearing, has to write in paper. No facial droop. Speech is okay. Insight is okay. EXTREMITIES: Chronic skin changes in bilateral lower extremities. Right lower extremity is slightly shortened and externally rotated. No edema or erythema seen. 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 diff infection, on chronic vancomycin suppression; chronic anemia, ; chronic thrombocytopenia; history of left tibiofibular fracture; history of left foot wound infected and bacteremia with MRSA and other medical problems listed below who presents after fall at home while walking her dog. Hip x-ray shows a right-sided subcapital fracture of femoral neck in setting of age-related osteoporosis. Underwent R hip hemiarthroplasty by Dr. Ogden. Vitamin D level normal. Continue Eliquis twice daily for VTE prophylaxis per orthopedic surgery, weightbearing as tolerated with walker, continue as needed Tylenol for pain and as needed tramadol for severe pain. Discharging to [facility] for further rehab. During admission, also noted to have left eye conjunctivitis and has 2 more days of ciprofloxacin ointment to left eye TID. Evaluated by pulmonology during admission for combined pulmonary fibrosis and emphysema due abnormal imaging. They did not feel abnormality was a cavitary lesion and most likely worsening of underlying CPFE. Completed 5-day course of azithromycin today as recommended, continue Mucinex as needed, continue Anoro inhaler daily, follow-up on autoimmune lab work, outpatient pulm follow-up. Abnormal urinalysis during admission and urine culture shows gram-negative bacilli however with Bautista catheter in place, unable to delineate true symptoms. Did complete antibiotic therapy during admission. History of thrombocytopenia in setting of known cirrhosis and was transfused with 2 units of platelets prior to orthopedic surgery. Platelets remain at baseline around 80. Patient with chronic callus of the left heel that was evaluated by wound care nurse during admission and offloaded. Is on oral vancomycin for suppressive therapy given history of recurrent C. difficile. Patient is comfortable and hemodynamically stable at time of discharge to acute inpatient rehab. Discharge Exam Gen: WD/WN, NAD, sitting in bedside chair, hard of hearing, A&Ox3 HEENT: Normocephalic, atraumatic, L eye with conjunctival injection, mucous membranes moist, L torticollis Lung: Clear to Auscultation bilaterally, no wheezes/rales/rhonchi Heart: Regular rate, regular rhythm, no murmurs, rubs, or gallops Abdomen: Soft, NT, ND +BS x 4 Extremities: Hip dressing c/d/i. No edema Skin: Warm, no rash Updated Medication List Medication Instructions Recorded Confirmed Type Acidophilus Lactobacillus 2 cap PO HS 02/14/23 02/14/23 History acetaminophen 300 mg-codeine 30 mg 1 tab PO BID PRN Pain 02/14/23 02/14/23 History tablet acetaminophen 325 mg tablet 350 mg PO QID PRN Pain 02/14/23 02/14/23 History (Tylenol) ascorbic acid (vitamin C) 500 mg 500 mg PO BID 02/14/23 02/14/23 History tablet (Vitamin C) gppkoiswvy-nnimarykspeeg-gusvzyfa 1 tab PO Q6H PRN Migraine Headache 02/14/23 02/14/23 History 50 mg-325 mg-40 mg tablet calcium carbonate 600 mg-vitamin 1 cap PO BID 02/14/23 02/14/23 History D3 5 mcg (200 unit) capsule (Calcium 600 + D(3)) fluticasone propionate 50 2 spray intranasal DAILY 02/14/23 02/14/23 History mcg/actuation nasal spray,suspension (Flonase Allergy Relief) hydrochlorothiazide 25 mg tablet 12.5 mg PO DAILY 02/14/23 02/14/23 History hydrocortisone 0.25 % topical cream 1 applic topical DIRECTED 02/14/23 02/14/23 History loperamide 2 mg capsule 2 mg PO Q8 PRN Diarrhea 02/14/23 02/14/23 History loratadine 10 mg tablet 10 mg PO DAILY PRN ALLERGIES 02/14/23 02/14/23 History magnesium oxide 400 mg PO BID 02/14/23 02/14/23 History metoprolol tartrate 100 mg tablet 100 mg PO BID 02/14/23 02/14/23 History cfljkcnlobps-jycahrbc-dlzzqk tablet 1 tab PO DAILY 02/14/23 02/14/23 History ondansetron HCl 4 mg tablet 4 mg PO Q6H PRN Nausea 02/14/23 02/14/23 History polysaccharide iron complex 150 mg 150 mg PO DAILY 02/14/23 02/14/23 History iron capsule (Ferrex) potassium chloride 10 mEq 10 meq PO BID 02/14/23 02/14/23 History capsule,extended release sodium di- and 1 tab PO QID 02/14/23 02/14/23 History monophosphate-potassium phos monobasic 250 mg tablet (O-Dxkd-Shtliqb) vancomycin 125 mg capsule 125 mg PO QAM 02/14/23 02/14/23 History vitamin B complex 1 tab PO DAILY 02/14/23 02/14/23 History apixaban 2.5 mg tablet (Eliquis) 2.5 mg PO BID #0 tabs 02/18/23 Rx ciprofloxacin HCl 0.3 % eye 1 applic ophthalmic (eye) TID #0 02/18/23 Rx ointment (Ciloxan) grams dextroamphetamine-amphetamine 10 1 tab PO TID 02/18/23 02/18/23 History mg tablet guaifenesin 600 mg tablet, 600 mg PO Q12 PRN congestion #0 02/18/23 Rx extended release 12 hr (Mucinex) tabs tramadol 50 mg tablet 50 mg PO Q6H PRN #0 tabs 02/18/23 Rx Hospital Stay Data Consultations 02/14/23 00:30 ED Decision to Admit Stat 02/14/23 08:00 Consult Orthopedic Surgery Routine Consult Pulmonology Routine Procedures Performed Operation Date: 02/15/23 12:00 Actual Procedures p Right Hip Hemiarthroplasty Cemented(Right) - Elias Ogden MD Diagnostic Imagining Performed 02/13/23 22:47 CT abd pelvis IV con only Stat CT cervical spine wo con Stat CT chest diagnostic w con Stat CT head/brain wo con Stat CT lumbar spine w con Stat CT thoracic spine w con Stat Pending Results Patient Have Any Pending Studies at Discharge: No Discharge Instructions Given to Patient (Per Discharging Provider) MEDICATION CHANGES: Continue ophtho Ciprofloxacin ointment to L eye TID for 2 more days Continue Anoro inhaler 1 inhalation daily Continue Eliquis twice a day as directed below by orthopedic surgery until you follow up As needed tylenol for pain, tramadol for severe pain RECOMMENDATIONS FOR FOLLOW-UP: Follow up with PCP and ortho surgery as detailed above OTHER INSTRUCTIONS: Seek medical attention if you have: * temperature above 101 * chest pain or trouble breathing * abdominal pain, nausea, vomiting * diarrhea, dark stools or bloody stools * any unanswered questions or concerns Call 911 if symptoms are severe. Please take good care of yourself. Call if you have any questions or problems. You can reach a [facility] hospitalist on duty at [facility] 24 hours a day by calling [phone]. Total Time Total Time Spent Total Time Spent (In Minutes): 75 Supervising Physician Co-Signing Physician Notes delayed entry date of service noted above Attending Addendum: care coordinated with RENZO Bozena Samuel please refer to her notes for full details, I agree with her notes patient seen and examined, records reviewed by myself as well diagnoses and plan of care as per RENZO Medrano MD
== END 2023-02-18 13:40 | DRG 522 ==
LOC: ED 22:33 → SUATTDRO 02-14 02:10 → 3W 02-14 02:10
DX: Z88.0 Allergy status to penicillin; K74.60 Unspecified cirrhosis of liver; H10.022 Other mucopurulent conjunctivitis, left eye; Z87.891 Personal history of nicotine dependence; F90.9 Attention-deficit hyperactivity disorder, unspecified type; E87.6 Hypokalemia; J84.10 Pulmonary fibrosis, unspecified; L97.428 Non-pressure chronic ulcer of left heel and midfoot with other specified severity; Z88.5 Allergy status to narcotic agent; S09.90XA Unspecified injury of head, initial encounter; N39.0 Urinary tract infection, site not specified; D75.838 Other thrombocytosis; Y92.89 Other specified places as the place of occurrence of the external cause; Y93.K1 Activity, walking an animal; D64.9 Anemia, unspecified; J43.9 Emphysema, unspecified; Z88.8 Allergy status to other drugs, medicaments and biological substances; F20.9 Schizophrenia, unspecified; W18.39XA Other fall on same level, initial encounter; M80.051A Age-related osteoporosis with current pathological fracture, right femur, initial encounter for fracture; Z86.14 Personal history of Methicillin resistant Staphylococcus aureus infection; I10 Essential (primary) hypertension

== ENCOUNTER 2023-03-15 10:02 | Inpatient (IN) ==
[2023-03-15] MEDS ORDERED: ONDANSETRON 4 MG OD TAB PO STA (10:50)
--- NOTE | 2023-03-15 10:54 | Emergency Department Note ---
Impression & Plan Periprosthetic hip fracture, Ambulatory dysfunction ED Provider Note CHIEF COMPLAINT: Mid left thigh pain status post fall 9 days ago HISTORY OF PRESENT ILLNESS: Patient is a 63-year-old female with past medical history significant for hypertension, chronic lung disease, bipolar disorder, depression, schizophrenia, hard of hearing, who presents emergency department via ambulance for evaluation of mid left thigh pain. Patient suffered a mechanical fall on 02/14, suffering a right hip fracture, underwent a right hip hemiarthroplasty performed by Dr. Ogden. She was subsequently discharged to [facility], then discharged from [facility] to home on 02/26. She saw Dr. Ogden in the office on 03/04 with normal x-rays. Patient reports that she suffered a mechanical fall last Tuesday, 03/06. She was ambulating with her walker, bringing the dog in, when she tripped over some garbage her had collected, this time she landed on her left hip. She was seen at Dr. Ortiz's office the following day and had an x-ray performed which was reportedly negative, but the patient is concerned that the x-ray did not include at the site of her pain. She notes lateral mid left thigh pain. She is status post left hip hemiarthroplasty in 2019, complicated by periprosthetic fracture, she has hardware the entire length of the left femur. She was given Tylenol #[address] Ortiz and has been taking Kisha. She has been ambulatory with a walker but the hip pain has been getting worse. She tried calling her PCP and orthopedics but they did not have any available appointments. When she could not walk well this morning she asked her to call the ambulance. She is currently complaining of nausea in addition to pain. She rates her discomfort a 7/10. REVIEW OF SYSTEMS: Review of systems as per HPI. All other systems reviewed were negative. 10 systems reviewed. PMH: External medical records are reviewed and summarized as above/below. See Problem List. SOCIAL HISTORY: Patient lives at home. . Disabled. PHYSICAL EXAM: Vital Signs: Reviewed Nurse's notes. CONSTITUTIONAL: Patient is a thin, chronically ill-appearing 63-year-old female who is laying in the gurney. She appears older than her stated age. HEART: Regular rate and rhythm. LUNGS: Clear to auscultation. NEUROLOGICAL: Alert and cooperative. Sensory and motor functions grossly intact. MUSCULOSKELETAL: Examination of the left hip note a well-healed surgical scar. No obvious leg length discrepancy. Skin is intact, there is a small area of ecchymosis on the medial left thigh proximally. There is minimal tenderness over the left greater trochanter. There is also some reproducible tenderness over the lateral aspect of the left mid thigh. No obvious deformity. No knee joint effusion appreciated. Knee flexion and extension are full. She has d iscomfort with left hip flexion and internal and external rotation. Examination of the right hip note a well-healing surgical scar. No erythema or signs of infection. No pitting edema bilaterally. Calves are soft and nontender. Lower extremities are neurovascularly intact. EMERGENCY DEPARTMENT COURSE: The patient was seen and assessed as above. External medical records are reviewed. She has a complicated past medical history. She suffered a mechanical fall 9 days ago, injuring the left hip. She is about a month status post right hip hemiarthroplasty for fracture. She did have some x-rays at her PCPs office after the fall, but she is concerned that they did not fully evaluate the injury, and thus presents to the emergency department today for increasing pain and difficulty ambulating. A left femur x-ray was obtained, per my interpretation it notes postsurgical changes consistent with hemiarthroplasty and ORIF. There are 2 fractured screws at the proximal portion of the plate which appear old, but there does appear to be a subtle fracture around the proximal femur prosthetic laterally, concerning for a subtle periprosthetic fracture. I did review the is compared to her x- rays that were done at orthopedics on 03/04 and the findings appear to be new. Patient was reviewed with attending physician, Dr. Gibbs. X-ray findings were reviewed with the patient and her spouse. I was able to review the patient with her established orthopedic surgeon, Dr. Ogden, who reviewed her radiographs, and would like additional imaging with a CT scan of the left hip and left femur. He feels that she should be kept on bedrest/nonweightbearing, until the extent of the fracture can be evaluated, and thusly it was felt that the patient would need admission/observation in the hospital for further care and management. Patient was reviewed with ED housing case manager, and consultation placed with the [facility] Hospitalist service. I did review the plan with the patient and her spouse, they were in agreement. The patient was requesting something for pain, and was given fentanyl 50 mcg IV and Zofran 4 mg IV. Blood work and urinalysis and a COVID test were ordered for admitting purposes, and were not available at the time of dictation. Patient was discussed with MADALYN Mathew, with [facility] for admission/observation. Differential diagnoses considered included trochanteric bursitis, muscle strain, periprosthetic fracture, hardware compromise, infection, osteomyelitis, lumbar radiculopathy, DVT, among others. Past Med/Surg History Medical History Bipolar disorder Cirrhosis Depression Emphysema of lung Based on imaging Failure of outpatient treatment History of CVA (cerebrovascular accident) Osteoporosis Pulmonary nodule 9 mm RML subsolid nodule CT chest 02/29/20. F/U CT recommended 3-6 months Schizophrenia Vitamin D deficiency Surgical History History of appendectomy History of shoulder surgery History of total hip replacement femur fracture one month later with repair, both in 2007 Status post open reduction and internal fixation (ORIF) of fracture Family History Father Myocardial infarction Mother Colorectal cancer Social History Smoking Status: Never smoker Tobacco Type: Cigarettes Cigarettes Per Day: 18; Second Hand Exposure: No; Hx Alcohol Use: No Hx Substance Use: No Preferred Language: Faroese Communication Ability: Effective Communication Ability Comment: pt [facility] [employer] Fre[employer] Clerk Required: No Beliefs That Will Affect Care: None marital status: Current Living Situation: Spouse Current Living Situation Comment: Lives with Feels Safe at Home: Yes Assistive Devices: Cane and Walker Allergies Allergies Allergy/AdvReac Type Severity Reaction Status Date / Time Penicillins Allergy Severe ANAPHYLAXIS Verified 03/15/23 14:57 oxycodone [From Percodan] Allergy Unknown Unknown Verified 03/15/23 14:57 ketorolac [From Toradol] AdvReac Severe Breathing Verified 03/15/23 14:57 difficulty hydrocodone AdvReac Intermediate Nausea Verified 03/15/23 14:57 [From Lorcet (hydrocodone)] rifaximin [From Xifaxan] AdvReac Intermediate Dizzy, Verified 03/15/23 14:57 Fell down ursodiol AdvReac Intermediate Dizzy, Verified 03/15/23 14:57 Fell down Home Meds Home Medications Medication Instructions Recorded Confirmed Acidophilus Lactobacillus 2 cap PO HS 02/14/23 03/15/23 acetaminophen 300 mg-codeine 30 mg 1 tab PO BID PRN Pain 02/14/23 03/15/23 tablet acetaminophen 325 mg tablet 350 mg PO QID PRN Pain 02/14/23 03/15/23 (Tylenol) ascorbic acid (vitamin C) 500 mg 500 mg PO BID 02/14/23 03/15/23 tablet (Vitamin C) bkbxgbfcjw-oqhrcterathcf-hylxpbjz 1 tab PO Q6H PRN Migraine Headache 02/14/23 03/15/23 50 mg-325 mg-40 mg tablet calcium carbonate 600 mg-vitamin 1 cap PO BID 02/14/23 03/15/23 D3 5 mcg (200 unit) capsule (Calcium 600 + D(3)) hydrochlorothiazide 25 mg tablet 12.5 mg PO DAILY 02/14/23 03/15/23 hydrocortisone 0.25 % topical cream 1 applic topical DIRECTED 02/14/23 03/15/23 loperamide 2 mg capsule 2 mg PO Q8 PRN Diarrhea 02/14/23 03/15/23 loratadine 10 mg tablet 10 mg PO DAILY PRN ALLERGIES 02/14/23 03/15/23 magnesium oxide 400 mg PO BID 02/14/23 03/15/23 metoprolol tartrate 100 mg tablet 100 mg PO BID 02/14/23 03/15/23 wxvprhuemzdb-dkykrttf-hxzxqi tablet 1 tab PO DAILY 02/14/23 03/15/23 ondansetron HCl 4 mg tablet 4 mg PO Q6H PRN Nausea 02/14/23 03/15/23 polysaccharide iron complex 150 mg 150 mg PO DAILY 02/14/23 03/15/23 iron capsule (Ferrex) potassium chloride 10 mEq 10 meq PO BID 02/14/23 03/15/23 capsule,extended release sodium di- and 1 tab PO QID 02/14/23 03/15/23 monophosphate-potassium phos monobasic 250 mg tablet (I-Gxmw-Kyjnzxg) vancomycin 125 mg capsule 125 mg PO QAM 02/14/23 03/15/23 vitamin B complex 1 tab PO DAILY 02/14/23 03/15/23 dextroamphetamine-amphetamine 10 1 tab PO TID 02/18/23 03/15/23 mg tablet Previous Rx's Medication Instructions Recorded apixaban 2.5 mg tablet (Eliquis) 2.5 mg PO BID #0 tabs 02/18/23 ciprofloxacin HCl 0.3 % eye 1 applic ophthalmic (eye) TID #0 02/18/23 ointment (Ciloxan) grams guaifenesin 600 mg tablet, 600 mg PO Q12 PRN congestion #0 02/18/23 extended release 12 hr (Mucinex) tabs tramadol 50 mg tablet 50 mg PO Q6H PRN #0 tabs 02/18/23 Results & Data (ED) Vital Signs Vital Signs - 24 hr 03/15/23 10:09 03/15/23 12:06 Temperature 36.6 C Temperature Source Temporal Artery Scan Pulse Rate 67 58 L Pulse Rhythm Regular Respiratory Rate 20 Respiratory Effort / Characteristics Non-Labored Spontaneous Respiratory Depth Normal Blood Pressure 145/91 H Blood Pressure Mean 109 Pulse Oximetry 97 Oxygen Delivery Method Room Air Sepsis Recent Fever Within 48 Hours No Sepsis New/Unexplained Change in Mental Status No Sepsis Action Taken by Nursing No Action Required Home Medications Current Medication List: was personally reviewed by me Laboratory Data Attestation: I reviewed the patient's lab results. 03/15/23 14:50 03/15/23 14:50 Lab Results 03/15/23 Range/Units 14:50 Sodium 141 (136-145) mmol/L Potassium 3.6 (3.5-5.1) mmol/L Chloride 105 (98-107) mmol/L Carbon Dioxide 27 (21-32) mmol/L Anion Gap 9 (3-11) BUN 7 (6-23) mg/dl Creatinine 0.51 L (0.6-1.2) mg/dl Est Cr Clr Drug Dosing Not Reportable Est GFR ( Amer) 118.6 ml/min Est GFR (Non-Af Amer) 102.3 ml/min BUN/Creatinine Ratio 13.7 (10-20) Glucose 93 (70-99(Fasting)) mg/dl Calcium 9.3 (8.6-10.3) mg/dl Total Bilirubin 1.5 H (0.2-1.0) mg/dl AST 33 (13-39) U/L ALT 19 (7-52) U/L Alkaline Phosphatase 173 H (34-104) U/L Total Protein 7.0 (6.0-8.3) gm/dl Albumin 3.7 (3.4-5.0) gm/dl Globulin 3.3 (2.5-4.0) gm/dl Albumin/Globulin Ratio 1.1 (0.9-2) Administered Medications Discontinued Medications Fentanyl Citrate (Fentanyl Citrate Pf 100 Mcg/2 Ml Vial) 50 mcg IV NOW STA Stop: 03/15/23 14:03 Last Admin: 03/15/23 15:04 Dose: 50 mcg Documented By: ARS Ondansetron HCl (Ondansetron 4 Mg Od Tab) 4 mg PO NOW STA Stop: 03/15/23 10:51 Last Admin: 03/15/23 11:35 Dose: 4 mg Documented By: HE Ondansetron HCl (Ondansetron Inj 2 Mg/Ml 2 Ml Vial) 4 mg IV NOW STA Stop: 03/15/23 14:03 Last Admin: 03/15/23 15:04 Dose: 4 mg Documented By: HE Imaging Data Attestation: I personally reviewed and interpreted this imaging study as follows: Radiologist's Impression: Femur X-Ray 03/15/23 10:50 XR femur LT 2V routine HISTORY: 63 years-old Female MID LEFT THIGH PAIN S/P FALL . Pain of the left thigh status post fall COMPARISON: Pelvis radiograph 02/13/2023, femur radiographs 10/22/2020. TECHNIQUE: 2 views of the left femur FINDINGS: Demineralized appearance the bones. Cortical thickening of the proximal tibia and fibula and distal femur suggestive of healed fracture deformities. Lateral plate and screw fusion hardware of the femoral diaphysis. 2 of the most proximal cannulated screws are fractured, new from 2019, however in retrospect was likely present on 02/13/2023 exam. A radiodense small caliber wire type device overlying the proximal femoral diaphysis again noted. Left hip total joint arthroplasty. There is lateral cortical irregularity involving the proximal femoral diaphysis seen best on the AP view. IMPRESSION: 1. Total joint arthroplasty with ORIF hardware of the femur. 2. Mild lateral cortical irregularity of the proximal femoral diaphysis is suspicious for a subtle acute periprosthetic fracture. 3. Fractured cannulated screws of the upper femoral diaphysis. ACT 112: Negative or not required by law. The above report was generated using voice recognition software. It may contain grammatical, syntax or spelling errors. Electronically signed by: Mike Purdy M.D. 03/15/2023 12:35 PM Discharge Plan Visit Data Chief Complaint: Fall Stated Complaint: FELL 1 WK AGO, HIP PAIN ED Provider: Faisal Gibbs ED Midlevel Provider: Nia Monique Discharge Problem: Periprosthetic hip fracture, Ambulatory dysfunction Patient Disposition: Being Evaluated by Hospitalist Forms Stand Alone Forms: [facility] Prescriptions Prescriptions: No Action Acidophilus Lactobacillus 2 cap PO HS potassium chloride 10 mEq capsule, extended release 10 meq PO BID acetaminophen [Tylenol] 325 mg Tablet 350 mg PO QID PRN (Reason: Pain) loperamide 2 mg Capsule 2 mg PO Q8 PRN (Reason: Diarrhea) Rx Instructions: FOR 10 DAYS PRN metoprolol tartrate 100 mg tablet 100 mg PO BID polysaccharide iron complex [Ferrex 150] 150 mg iron Capsule 150 mg PO DAILY ondansetron HCl 4 mg Tablet 4 mg PO Q6H PRN (Reason: Nausea) acetaminophen-codeine 300-30 mg tablet 1 tab PO BID PRN (Reason: Pain) gyxhdpxxnm-siygmbiabpqrb-uxdx 50-325-40 mg Tablet 1 tab PO Q6H PRN (Reason: Migraine Headache) vancomycin 125 mg capsule 125 mg PO QAM ascorbic acid (vitamin C) [Vitamin C] 500 mg Tablet 500 mg PO BID hydrocortisone 0.25 % Cream 1 applic TOPICAL DIRECTED vitamin B complex Tablet 1 tab PO DAILY J-Karw-Xfiphwn 250 mg Tablet 1 tab PO QID Rx Instructions: DISSOLLVE IN 6 OZ WATER. UNKNOWN STRENGTH. hydrochlorothiazide 25 mg tablet 12.5 mg PO DAILY Rx Instructions: TAKE 1/2 IN AM PER RADHA loratadine 10 mg Tablet 10 mg PO DAILY PRN (Reason: ALLERGIES) hvtovqzqvacf-bidogont-uatpob Tablet 1 tab PO DAILY Calcium 600 + D(3) 600 mg-5 mcg (200 unit) Capsule 1 cap PO BID magnesium oxide 400 mg magnesium Tablet 400 mg PO BID Ciloxan 0.3 % Ointment 1 applic ophthalmic (eye) TID Qty: 0 0RF guaifenesin [Mucinex] 600 mg Tablet Extended Release 12hr 600 mg PO Q12 PRN (Reason: congestion) Qty: 0 0RF dextroamphetamine-amphetamine 10 mg tablet 1 tab PO TID tramadol 50 mg Tablet 50 mg PO Q6H PRNQty: 0 0RF Eliquis 2.5 mg Tablet 2.5 mg PO BID Qty: 0 0RF Referrals Referrals: Jersey Ortiz DO [Primary Care Provider] -
--- NOTE | 2023-03-15 12:37 | XRay Report ---
XR femur LT 2V routine HISTORY: 63 years-old Female MID LEFT THIGH PAIN S/P FALL . Pain of the left thigh status post fall COMPARISON: Pelvis radiograph 02/13/2023, femur radiographs 10/22/2020. TECHNIQUE: 2 views of the left femur FINDINGS: Demineralized appearance the bones. Cortical thickening of the proximal tibia and fibula and distal f emur suggestive of healed fracture deformities. Lateral plate and screw fusion hardware of the femora l diaphysis. 2 of the most proximal cannulated screws are fractured, new from 2019, however in retros pect was likely present on 02/13/2023 exam. A radiodense small caliber wire type device overlying the proximal femoral diaphysis again noted. Left hip total joint arthroplasty. There is lateral cortical irregularity involving the proximal femoral diaphysis seen best on the AP view. IMPRESSION: 1. Total joint arthroplasty with ORIF hardware of the femur. 2. Mild lateral cortical irregularity of the proximal femoral diaphysis is suspicious for a subtle ac poarch periprosthetic fracture. 3. Fractured cannulated screws of the upper femoral diaphysis. ACT 112: Negative or not required by law. The above report was generated using voice recognition software. It may contain grammatical, syntax o r spelling errors. Electronically signed by: Mike Purdy M.D. 03/15/2023 12:35 PM
[2023-03-15] MEDS ORDERED: ONDANSETRON INJ 2 MG/ML 2 ML VIAL IV STA (14:02)
[2023-03-15] MEDS ORDERED: fentaNYL citrate PF 100 MCG/2 ML VIAL IV STA (14:02)
--- NOTE | 2023-03-15 14:19 | History & Physical Report ---
Date of Service March 15, 2023 Assessment & Plan (1) Periprosthetic hip fracture: (2) Ambulatory dysfunction: (3) Combined pulmonary fibrosis and emphysema (CPFE): (4) Weakness: (5) Hard of hearing: (6) HTN (hypertension): (7) History of total hip replacement: (8) Bipolar disorder: (9) Depression: (10) C. difficile diarrhea: Plan: Periprosthetic hip fracture: Ambulatory dysfunction: Weakness: CT femur and hip : Periprosthetic fracture is seen in the proximal femoral shaft Nonweightbearing, bedrest Orthopedic consultation placed who will determine surgical intervention NPO after midnight Scheduled Tylenol and tramadol as needed for pain control PT OT evaluation H/O right hip hemiarthroplasty: Remains on Eloquis post op management from recent R hip hemiarthroplasty; hold for now pending ortho consult. Combined pulmonary fibrosis and emphysema (CPFE): Was inpt in January; followed by [facility] Chest CT during last admit: paraseptal emphysema appreciated bilaterally Patient also has bullous disease in the upper lobe as well as lower lobes Not in any exacerbation Not on any inhalers at home Start the patient on Anoro to be used on a daily basis; per discussion with ; this has been prescribed but not started. Updated on Med rec Flutter valve and ISB HTN: Takes metoprolol and HCTZ; continue Normotensive Bipolar disorder : Depression : Not on any medications; does at times have panic attacks that interrupt her day Reports using a variety of coping mechanisms; recites poetry Chronic recurrent CDiff: No current C. difficile; on vancomycin chronically for prophylaxis Disposition: PCP: Dr. Ortiz Code Status: DNR/DNI VTE Prophylaxis: Teds/SCDs for now; if no OR; resume I spent a total of 87 minutes coordinating, documenting, and providing care for this patient excluding time spent in the performance of separately billed services. All of the aforementioned completed while collaborating with the assigned attending physician for a full treatment plan. Please see their adden dum for further details. History of Present Illness Chief Complaint: femur fracture Primary Care Provider: Jersey Ortiz DO Ms. Dee Dorantes is a complicated female that presents to the ED s/p mechanical fall that has progressively been worsening. An x-ray revealed a new left perioprosthetic fracture. CT femur and hip revealed periprosthetic fracture is seen in the proximal femoral shaft. Earlier last month, on 02/14 she presented to the ED s/p fall after walking her dog. At that time she was found to have a right hip fracture. She underwent a right hemiarthroplasty under the care of Dr. Ogden and proceeded to [facility] post op and went home. She was to remain on Eloquid for DVT Prophylaxis. On 03/06 she experienced another fall; falling over her trash can onto her left hip not requiring surgery. Saw Dr. Alvarado on 03/07 for f/u x-rays; progressively worsening ambulatory dysfunction. She reports that Tylenol with codeine had not been helping her. She received Fentanyl in ED with minimal relief. She is able to hold full conversation. Patient states she has panic attacks that interrupt her day that she uses a variety of coping mechanisms to help with. She recites a poem, etc. No medications. Additional PMH includes: ambulatory dysfunction, CPFE, numerous fractures including hip and tib/fib, pressure ulcers, HTN, liver cirrhosis, bipolar disorder, depression and anxiety, schizophrenia, and chronic recurrent CDiff. Pt is sitting in her hospital bed in no apparent distress. She is able to follow commands, but is profusely weak with BL LE 2/5 strength. She is [place] and requires assistance from her for all of her ADL's. Orthopedics is aware of her fracture; will keep NWB, NPO, and provide pain management until determination held regarding surgical intervention. Patient will be admitted for further evaluation and management. Allergies Allergy/AdvReac Type Severity Reaction Status Date / Time Penicillins Allergy Severe ANAPHYLAXIS Verified 03/15/23 14:57 oxycodone [From Percodan] Allergy Unknown Unknown Verified 03/15/23 14:57 ketorolac [From Toradol] AdvReac Severe Breathing Verified 03/15/23 14:57 difficulty hydrocodone AdvReac Intermediate Nausea Verified 03/15/23 14:57 [From Lorcet (hydrocodone)] rifaximin [From Xifaxan] AdvReac Intermediate Dizzy, Verified 03/15/23 14:57 Fell down ursodiol AdvReac Intermediate Dizzy, Verified 03/15/23 14:57 Fell down Home Medications Medication Instructions Recorded Confirmed Type Acidophilus Lactobacillus 2 cap PO HS 02/14/23 03/15/23 History acetaminophen 300 mg-codeine 30 mg 1 tab PO BID PRN Pain 02/14/23 03/15/23 History tablet acetaminophen 325 mg tablet 350 mg PO QID PRN Pain 02/14/23 03/15/23 History (Tylenol) ascorbic acid (vitamin C) 500 mg 500 mg PO BID 02/14/23 03/15/23 History tablet (Vitamin C) axtrqtxmdh-akfxryvtbizgv-jadejgmv 1 tab PO Q6H PRN Migraine Headache 02/14/23 03/15/23 History 50 mg-325 mg-40 mg tablet calcium carbonate 600 mg-vitamin 1 cap PO BID 02/14/23 03/15/23 History D3 5 mcg (200 unit) capsule (Calcium 600 + D(3)) hydrochlorothiazide 25 mg tablet 12.5 mg PO DAILY 02/14/23 03/15/23 History hydrocortisone 0.25 % topical cream 1 applic topical DIRECTED 02/14/23 03/15/23 History loperamide 2 mg capsule 2 mg PO Q8 PRN Diarrhea 02/14/23 03/15/23 History loratadine 10 mg tablet 10 mg PO DAILY PRN ALLERGIES 02/14/23 03/15/23 History magnesium oxide 400 mg PO BID 02/14/23 03/15/23 History metoprolol tartrate 100 mg tablet 100 mg PO BID 02/14/23 03/15/23 History qcxtqvdhhthv-yffdvyru-oyuqtx tablet 1 tab PO DAILY 02/14/23 03/15/23 History ondansetron HCl 4 mg tablet 4 mg PO Q6H PRN Nausea 02/14/23 03/15/23 History polysaccharide iron complex 150 mg 150 mg PO DAILY 02/14/23 03/15/23 History iron capsule (Ferrex) potassium chloride 10 mEq 10 meq PO BID 02/14/23 03/15/23 History capsule,extended release sodium di- and 1 tab PO QID 02/14/23 03/15/23 History monophosphate-potassium phos monobasic 250 mg tablet (C-Kqxe-Ivfmgsr) vancomycin 125 mg capsule 125 mg PO QAM 02/14/23 03/15/23 History vitamin B complex 1 tab PO DAILY 02/14/23 03/15/23 History apixaban 2.5 mg tablet (Eliquis) 2.5 mg PO BID #0 tabs 02/18/23 03/15/23 Rx ciprofloxacin HCl 0.3 % eye 1 applic ophthalmic (eye) TID #0 02/18/23 03/15/23 Rx ointment (Ciloxan) grams dextroamphetamine-amphetamine 10 1 tab PO TID 02/18/23 03/15/23 History mg tablet guaifenesin 600 mg tablet, 600 mg PO Q12 PRN congestion #0 02/18/23 03/15/23 Rx extended release 12 hr (Mucinex) tabs tramadol 50 mg tablet 50 mg PO Q6H PRN #0 tabs 02/18/23 03/15/23 Rx umeclidinium 62.5 mcg-vilanterol 1 inh inhalation DAILY 03/15/23 03/15/23 History 25 mcg/actuation powdr for inhalation (Anoro Ellipta) Past Med/Surg History Medical History Bipolar disorder Cirrhosis Depression Emphysema of lung Based on imaging Failure of outpatient treatment History of CVA (cerebrovascular accident) Osteoporosis Pulmonary nodule 9 mm RML subsolid nodule CT chest 02/29/20. F/U CT recommended 3-6 months Schizophrenia Vitamin D deficiency Surgical History History of appendectomy History of shoulder surgery History of total hip replacement femur fracture one month later with repair, both in 2007 Status post open reduction and internal fixation (ORIF) of fracture Family History Father Myocardial infarction Mother Colorectal cancer Social History Smoking Status: Never smoker Tobacco Type: Cigarettes Cigarettes Per Day: 18; Second Hand Exposure: No; Hx Alcohol Use: No Hx Substance Use: No Preferred Language: Thai Communication Ability: Effective Communication Ability Comment: 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 Beam Department Required: No Beliefs That Will Affect Care: None marital status: Current Living Situation: Spouse Current Living Situation Comment: Lives with Feels Safe at Home: Yes Assistive Devices: Cane and Walker Review of Systems Review of Systems: Neuro: (-) Falls, trauma, slurred speech HEENT: (-) [place], dizziness, dysphagia, visual or auditory changes CV: (-) CP, palpitations, swelling Resp: (-) SOB GI: (-) appetite changes, N/V/D, bowel changes : (-) urinary changes Skin: (-) rashes Psych: (-) anxiety, depression Physical Exam Physical Exam: Neuro: AAOx4, PERRLA, no aphagia, memory changes, CNII-XII grossly intact HEENT: head normocephalic, moist mucus membranes CV: S1/S2, (-) M/G/R, (-) edema, cap refill < 3 seconds Resp: Lungs CTA in all henry. On RA GI: Abdomen S/NT/ND, Ax4 bowel sounds, (-) CVA tenderness Musculoskeletal: 2/5 B/L UE strength, 2/5 B/L LE strength. (+) gait disturbance Skin: (-) rashes , (-) erythema. Psych: euthymic mood Results & Data Results & Data Vital Signs (Past 12 Hours) Vital Signs Temp Pulse Resp BP Pulse Ox O2 Del Method 03/15/23 12:06 58 L 03/15/23 10:09 36.6 C 67 20 145/91 H 97 Room Air Laboratory Results Short CBC 03/15/23 03/15/23 Range/Units 14:50 15:34 WBC 3.93 L (4.8-10.8) K/ul Hgb 13.6 13.2 (12.0-16.0) g/dl Hct 39.7 (37.0-47.0) % Plt Count 114 L (130-400) K/uL BMP 03/15/23 14:50 Sodium 141 Potassium 3.6 Chloride 105 Carbon Dioxide 27 BUN 7 Creatinine 0.51 L Glucose 93 Calcium 9.3 Liver Function 03/15/23 Range/Units 14:50 Total Bilirubin 1.5 H (0.2-1.0) mg/dl AST 33 (13-39) U/L ALT 19 (7-52) U/L Alkaline Phosphatase 173 H (34-104) U/L Albumin 3.7 (3.4-5.0) gm/dl Diagnostic Findings Femur X-Ray 03/15/23 10:50 XR femur LT 2V routine HISTORY: 63 years-old Female MID LEFT THIGH PAIN S/P FALL . Pain of the left thigh status post fall COMPARISON: Pelvis radiograph 02/13/2023, femur radiographs 10/22/2020. TECHNIQUE: 2 views of the left femur FINDINGS: Demineralized appearance the bones. Cortical thickening of the proximal tibia and fibula and distal femur suggestive of healed fracture deformities. Lateral plate and screw fusion hardware of the femoral diaphysis. 2 of the most proximal cannulated screws are fractured, new from 2019, however in retrospect was likely present on 02/13/2023 exam. A radiodense small caliber wire type device overlying the proximal femoral diaphysis again noted. Left hip total joint arthroplasty. There is lateral cortical irregularity involving the proximal femoral diaphysis seen best on the AP view. IMPRESSION: 1. Total joint arthroplasty with ORIF hardware of the femur. 2. Mild lateral cortical irregularity of the proximal femoral diaphysis is suspicious for a subtle acute periprosthetic fracture. 3. Fractured cannulated screws of the upper femoral diaphysis. ACT 112: Negative or not required by law. The above report was generated using voice recognition software. It may contain grammatical, syntax or spelling errors. Electronically signed by: Mike Purdy M.D. 03/15/2023 12:35 PM Code Status & VTE Plan Code Status DNR/DNI in the event of cardiac or respiratory Supervising Physician Co-Signing Physician Notes Patient was seen and examined independently. Chart reviewed. Case discussed with RENZO Here with left periprosthetic femur fracture after a mechanical fall. Ortho c onsult pending. Hold Eliquis which she has been taking reportedly for DVT ppx.
[2023-03-15] MEDS ORDERED: ACETAMINOPHEN 325 MG TAB PO PRN (14:20)
[2023-03-15] MEDS ORDERED: ALUMINUM/MAGNESIUM SUSP 30 ML UDC PO PRN (14:20)
[2023-03-15] MEDS ORDERED: MAGNESIUM HYDROXIDE SUSP 30 ML UDC PO PRN (14:20)
[2023-03-15] MEDS ORDERED: POLYETHYLENE (MIRALAX) 17 GM PACK PO PRN (14:20)
[2023-03-15] MEDS ORDERED: ONDANSETRON INJ 2 MG/ML 2 ML VIAL IV PRN (14:20)
[2023-03-15 15:30] LABS: Alanine Aminotransferase 19 U/L (7-52); Albumin Globulin Ratio 1.1 (0.9-2); Albumin Level 3.7 gm/dl (3.4-5.0); Alkaline Phosphatase 173 U/L (34-104); Anion Gap 9 (3-11); Aspartate Aminotransferase 33 U/L (13-39); BUN Creatinine Ratio 13.7 (10-20); Bilirubin,Total 1.5 mg/dl (0.2-1.0); Blood Urea Nitrogen 7 mg/dl (6-23); Calcium 9.3 mg/dl (8.6-10.3); Carbon Dioxide 27 mmol/L (21-32); Chloride 105 mmol/L (98-107); Est GFR (African American) 118.6 ml/min; Est GFR (Non-African American) 102.3 ml/min; Globulin 3.3 gm/dl (2.5-4.0); Glucose 93 mg/dl (70-99(Fasting)); Potassium 3.6 mmol/L (3.5-5.1); Sodium 141 mmol/L (136-145)
[2023-03-15 15:38] LABS: INR 1.2 (0.9-1.1); Partial Thromboplastin Time 26.8 Seconds (21.0-31.0); Prothrombin Time 13.1 Seconds (9.0-12.0)
--- NOTE | 2023-03-15 15:39 | CT Scan Report ---
CT femur LT wo con, CT hip LT wo con CLINICAL HISTORY: EVAL PERIPROSTHETIC FRACTURE TECHNIQUE: Multidetector row helical CT of the left femur and left hip were performed without intrave nous contrast. Coronal and sagittal reformations were obtained. Automated dose lowering techniques an d/or adjustment according to patient size were utilized for this examination. CT DOSE: 2294.55 mGy.cm Comparison: Comparison is made to femur radiograph 03/15/2023 FINDINGS: There is irregularity of the anterior cortex of the femur just distal to the greater trochanter. Ther e is fracture of the 2 superiormost femoral shaft screws as seen on prior x-ray. Total joint arthropl asty is seen without evidence of loosening or hardware fracture. Mild soft tissue swelling is seen. IMPRESSION: Periprosthetic fracture is seen in the proximal femoral shaft. Redemonstration of fracture cannulated screws in the proximal diaphysis. ACT 112: Negative or not required by law. Electronically signed by: Fish Carty M.D. 03/15/2023 3:37 PM
[2023-03-15 16:03] LABS: Basophils # (auto) 0.03 K/uL (0-0.2); Basophils % (auto) 0.8 %; Eosinophils # (auto) 0.14 K/uL (0-0.50); Eosinophils % (auto) 3.6 %; Hematocrit (blood only) 39.7 % (37.0-47.0); Hemoglobin 13.6 g/dl (12.0-16.0); Immature Granulocytes # (auto) 0.01 K/uL (0.01-0.20); Immature Granulocytes % (auto) 0.3 %; Lymphocytes # (auto) 0.39 K/uL (1.2-3.4); Lymphocytes % (auto) 9.9 %; Mean Corpuscular Hemoglobin 33.3 pg (25.0-34.0); Mean Corpuscular Hgb Conc 34.3 g/dL (32.0-36.0); Mean Corpuscular Volume 97.1 fL (80.0-100.0); Mean Platelet Volume 10.9 fL (9.4-12.4); Monocytes # (auto) 0.19 K/uL (0.11-0.59); Monocytes % (auto) 4.8 %; Neutrophils # (auto) 3.17 K/uL (1.40-6.50); Neutrophils % (auto) 80.6 %; Ovalocytes 1+; Platelet Count 114 K/uL (130-400); Polychromasia 1+; RDW Coefficient of Variation 15.6 % (11.5-14.5); RDW Standard Deviation 55.9 fL (36.4-46.3); Red Blood Count 4.09 M/uL (4.20-5.40); Tear Drop Cells 1+; White Blood Count 3.93 K/ul (4.8-10.8)
[2023-03-15] MEDS: POT PHOSPHATE MONOBASIC W/ SOD TAB PO SCH ×2 (18:09→23:15)
[2023-03-15] MEDS: traMADol HCL 50 MG TABLET PO PRN (18:09)
[2023-03-15] MEDS: ACETAMINOPHEN 325 MG TAB PO SCH ×2 (18:09→23:12)
[2023-03-15] MEDS ORDERED: RASPBERRY SYRUP 5 ML UDP PO SCH (18:45)
[2023-03-15] MEDS ORDERED: CIPROFLOXACIN HCL 3.5 GM TUBE OP SCH (21:00)
[2023-03-15] MEDS ORDERED: NON-FORMULARY MEDICATION (Dextroamphetamine-Amphetamine 10 mg tablet) PO SCH (21:00)
[2023-03-15] MEDS: ASCORBIC ACID 500 MG TAB PO SCH (23:13)
[2023-03-15] MEDS: MAGNESIUM OXIDE 400 MG TAB PO SCH (23:14)
[2023-03-15] MEDS: CALCIUM 600MG + VIT D 400 IU TAB PO SCH (23:14)
[2023-03-15] MEDS: METOPROLOL TARTRATE 100 MG TAB PO SCH (23:16)
[2023-03-15] MEDS: POTASSIUM CHLORIDE 10 MEQ TABCR PO SCH (23:16)
[2023-03-16 03:55] LABS: Appearance Urine Cloudy (Clear); Bacteria Urine Automated 4+ (Negative); Bilirubin Urine Negative (Negative); Blood Urine 2+ (Negative); Cast Urine Automated 0 /lpf (0-5); Color Urine Dark Yellow; Glucose Urine UA Negative (Negative); Ketones Urine Trace (Negative); Leukocyte Esterase Urine 1+ (Negative); Nitrite Urine Positive (Negative); Protein Urine 1+ (Negative); Specific Gravity Urine 1.037 (1.000-1.030); Urobilinogen Urine Negative (Negative); WBC Urine Automated >30 /hpf (0-5)
[2023-03-16] MEDS: ACETAMINOPHEN 325 MG TAB PO SCH ×4 (04:56→22:22)
[2023-03-16] MEDS: AZTREONAM 2,000 MG in DEXTROSE 5% 100 ML IV SCH ×3 (05:45→22:22)
--- NOTE | 2023-03-16 07:27 | Communication Note ---
Date of Service: March 16, 2023 Started on iv azatum as UA was positive. Thank you
[2023-03-16 07:40] LABS: Hemoglobin 13.5 g/dl (12.0-16.0); Mean Corpuscular Hgb Conc 33.8 g/dL (32.0-36.0); Mean Corpuscular Volume 97.8 fL (80.0-100.0); Mean Platelet Volume 10.4 fL (9.4-12.4); Platelet Count 147 K/uL (130-400); RDW Coefficient of Variation 15.8 % (11.5-14.5); RDW Standard Deviation 56.5 fL (36.4-46.3); Red Blood Count 4.09 M/uL (4.20-5.40); White Blood Count 5.05 K/ul (4.8-10.8)
[2023-03-16 07:47] LABS: BUN Creatinine Ratio 16.3 (10-20); Calcium 9.2 mg/dl (8.6-10.3); Creatinine Clr Calc Pharmacy 97.8 ml/min; Est GFR (African American) 120.2 ml/min; Est GFR (Non-African American) 103.7 ml/min; Magnesium 1.7 mg/dl (1.7-2.4); Potassium 3.5 mmol/L (3.5-5.1)
[2023-03-16 08:00] LABS: INR 1.3 (0.9-1.1); Prothrombin Time 13.7 Seconds (9.0-12.0)
[2023-03-16] MEDS: CALCIUM 600MG + VIT D 400 IU TAB PO SCH ×2 (08:12→20:55)
[2023-03-16] MEDS: RASPBERRY SYRUP 5 ML UDP PO SCH (08:12)
[2023-03-16] MEDS: CEROVITE ADV FORMULA TAB PO SCH (08:12)
[2023-03-16] MEDS: IRON POLYSACCHARIDE COMPLEX 150 MG CAPSULE PO SCH (08:12)
[2023-03-16] MEDS: MAGNESIUM OXIDE 400 MG TAB PO SCH ×2 (08:12→20:55)
[2023-03-16] MEDS: POT PHOSPHATE MONOBASIC W/ SOD TAB PO SCH ×4 (08:13→20:56)
[2023-03-16] MEDS: METOPROLOL TARTRATE 100 MG TAB PO SCH ×2 (08:13→21:06)
[2023-03-16] MEDS: POTASSIUM CHLORIDE 10 MEQ TABCR PO SCH ×2 (08:13→21:06)
[2023-03-16] MEDS: hydroCHLOROthiazide 25 MG TAB PO SCH (08:13)
[2023-03-16] MEDS: VITAMIN B COMPLEX TAB PO SCH (08:13)
[2023-03-16] MEDS: UMECLIDINIUM/VILANTEROL 62.5/25MCG 7 PUFFS/INHALER INH SCH (08:14)
[2023-03-16] MEDS: ASCORBIC ACID 500 MG TAB PO SCH ×2 (08:14→20:54)
[2023-03-16] MEDS: traMADol HCL 50 MG TABLET PO PRN ×2 (08:20→20:53)
[2023-03-16] MEDS ORDERED: VANCOMYCIN HCL 125 MG/2.5ML SOLN PO SCH (09:00)
--- NOTE | 2023-03-16 09:02 | Orthopedic Consultation ---
Date of Consultation March 16, 2023 Assessment & Plan (1) Periprosthetic hip fracture: Evaluation of x-rays and CT scan shows that there is a nondisplaced periprosthetic left hip fracture. To the proximal screws from her previous plate have broken. The hip is in place. The hip implant does not appear to be loose. The remainder of the femur is unremarkable. My findings were discussed with Dee and her . We need to get her on osteoporosis treatment and we will see if we can get this started presently. She is on Eliquis and that will suffice for DVT prophylaxis. I believe that her vitamin D level and situation have been addressed at her previous admission. She can go ahead and eat. She does not require surgery for her left leg injury. Unfortunately however she will not be able to bear weight on the left leg and will therefore be a bed to chair transfer. Hopping is not an option. She will need a group home facility. She can work on transfers. Total hip precautions. This is a pathological fracture of the left hip secondary to osteoporosis (2) Ambulatory dysfunction: (3) Osteoporosis: History of Present Illness Attending Physician: Ricardo Langston MD History of Present Illness Dee is well-known to me from previous orthopedic injuries. She is status post a right hip hemiarthroplasty for fracture several weeks ago. She had returned ho tx. She reports that she fell about 7 to 10 days ago. She landed directly on her left hip. She experienced further ambulatory dysfunction and hip pain. She had a appointment with her primary care physician. X-rays were obtained. Because of continued pain she came to the ER. She was evaluated and admitted. Complains of pain in the left hip area. She has not gotten her osteoporosis treatment started. Allergies Allergy/AdvReac Type Severity Reaction Status Date / Time Penicillins Allergy Severe ANAPHYLAXIS Verified 03/15/23 14:57 oxycodone [From Percodan] Allergy Unknown Unknown Verified 03/15/23 14:57 ketorolac [From Toradol] AdvReac Severe Breathing Verified 03/15/23 14:57 difficulty hydrocodone AdvReac Intermediate Nausea Verified 03/15/23 14:57 [From Lorcet (hydrocodone)] rifaximin [From Xifaxan] AdvReac Intermediate Dizzy, Verified 03/15/23 14:57 Fell down ursodiol AdvReac Intermediate Dizzy, Verified 04/18/23 14:57 Fell down Home Medications Medication Instructions Recorded Confirmed Type Acidophilus Lactobacillus 2 cap PO HS 02/14/23 03/15/23 History acetaminophen 300 mg-codeine 30 mg 1 tab PO BID PRN Pain 02/14/23 03/15/23 History tablet acetaminophen 325 mg tablet 350 mg PO QID PRN Pain 02/14/23 03/15/23 History (Tylenol) ascorbic acid (vitamin C) 500 mg 500 mg PO BID 02/14/23 03/15/23 History tablet (Vitamin C) cifgpwvpng-ivxfjlyxnbyen-xnrfafkm 1 tab PO Q6H PRN Migraine Headache 02/14/23 03/15/23 History 50 mg-325 mg-40 mg tablet calcium carbonate 600 mg-vitamin 1 cap PO BID 02/14/23 03/15/23 History D3 5 mcg (200 unit) capsule (Calcium 600 + D(3)) hydrochlorothiazide 25 mg tablet 12.5 mg PO DAILY 02/14/23 03/15/23 History hydrocortisone 0.25 % topical cream 1 applic topical DIRECTED 02/14/23 03/15/23 History loperamide 2 mg capsule 2 mg PO Q8 PRN Diarrhea 02/14/23 03/15/23 History loratadine 10 mg tablet 10 mg PO DAILY PRN ALLERGIES 02/14/23 03/15/23 History magnesium oxide 400 mg PO BID 02/14/23 03/15/23 History metoprolol tartrate 100 mg tablet 100 mg PO BID 02/14/23 03/15/23 History nlwmucrtcpob-svrwyzri-cvnvme tablet 1 tab PO DAILY 02/14/23 03/15/23 History ondansetron HCl 4 mg tablet 4 mg PO Q6H PRN Nausea 02/14/23 03/15/23 History polysaccharide iron complex 150 mg 150 mg PO DAILY 02/14/23 03/15/23 History iron capsule (Ferrex) potassium chloride 10 mEq 10 meq PO BID 02/14/23 03/15/23 History capsule,extended release sodium di- and 1 tab PO QID 02/14/23 03/15/23 History monophosphate-potassium phos monobasic 250 mg tablet (X-Hdgr-Jopkoqk) vancomycin 125 mg capsule 125 mg PO QAM 02/14/23 03/15/23 History vitamin B complex 1 tab PO DAILY 02/14/23 03/15/23 History apixaban 2.5 mg tablet (Eliquis) 2.5 mg PO BID #0 tabs 02/18/23 03/15/23 Rx ciprofloxacin HCl 0.3 % eye 1 applic ophthalmic (eye) TID #0 02/18/23 03/15/23 Rx ointment (Ciloxan) grams dextroamphetamine-amphetamine 10 1 tab PO TID 02/18/23 03/15/23 History mg tablet guaifenesin 600 mg tablet, 600 mg PO Q12 PRN congestion #0 02/18/23 03/15/23 Rx extended release 12 hr (Mucinex) tabs tramadol 50 mg tablet 50 mg PO Q6H PRN #0 tabs 02/18/23 03/15/23 Rx umeclidinium 62.5 mcg-vilanterol 1 inh inhalation DAILY 03/15/23 03/15/23 History 25 mcg/actuation powdr for inhalation (Anoro Ellipta) Patient History Medical History Bipolar disorder Cirrhosis Depression Emphysema of lung Based on imaging Failure of outpatient treatment History of CVA (cerebrovascular accident) Osteoporosis Pulmonary nodule 9 mm RML subsolid nodule CT chest 02/29/20. F/U CT recommended 3-6 months Schizophrenia Vitamin D deficiency Surgical History History of appendectomy History of shoulder surgery History of total hip replacement femur fracture one month later with repair, both in 2007 Status post open reduction and internal fixation (ORIF) of fracture Family History Father Myocardial infarction Mother Colorectal cancer Social History Smoking Status: Former smoker Tobacco Type: Cigarettes Cigarettes Per Day: 18; Second Hand Exposure: No; Do You Dip or Chew Tobacco: No; Hx Alcohol Use: No Hx Substance Use: No Preferred Language: Thai Communication Ability: Effective Communication Ability Comment: pt [facility] 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 Otherwise it is well-healed there is no drainage she can do a leg lift on the right and flex her hip to 90 degrees. There is painless movement of the right hip. Examination of the left hip reveals no significant bruising or swelling but she does have tenderness around the proximal left hip area greater trochanter. No t enderness distally around the thigh or knee. She is able to do a straight leg raise on the left and can flex her left knee about 60 degrees and her hip 45 degrees. She does not have significant active extension of her left big toe otherwise she has 5 to 5- out of 5 strength with plantarflexion dorsiflexion and eversion of her ankle her DP and PT pulses are 1+ the leg is not swollen red or tender. Results & Data Vital Signs (Past 12 Hours) Vital Signs Temp Pulse Resp BP Pulse Ox O2 Del Method 03/16/23 07:33 36.7 C 68 18 121/61 95 Room Air Diagnostic Findings Laboratory Results WBC 5.05 K/ul (4.8-10.8) 03/16/23 07:13 RBC 4.09 M/uL (4.20-5.40) L 03/16/23 07:13 Hgb 13.5 g/dl (12.0-16.0) 03/16/23 07:13 Hct 40.0 % (37.0-47.0) 03/16/23 07:13 MCV 97.8 fL (80.0-100.0) 03/16/23 07:13 MCH 33.0 pg (25.0-34.0) 03/16/23 07:13 MCHC 33.8 g/dL (32.0-36.0) 03/16/23 07:13 RDW Std Deviation 56.5 fL (36.4-46.3) H 03/16/23 07:13 RDW Coeff of Dewayne 15.8 % (11.5-14.5) H 03/16/23 07:13 Plt Count 147 K/uL (130-400) 03/16/23 07:13 MPV 10.4 fL (9.4-12.4) 03/16/23 07:13 Immature Gran % (Auto) 0.3 % 03/15/23 14:50 Neut % (Auto) 80.6 % 03/15/23 14:50 Lymph % (Auto) 9.9 % 03/15/23 14:50 [place] % (Auto) 4.8 % 03/15/23 14:50 Eos % (Auto) 3.6 % 03/15/23 14:50 Baso % (Auto) 0.8 % 03/15/23 14:50 Neut # (Auto) 3.17 K/uL (1.40-6.50) 03/15/23 14:50 Lymph # (Auto) 0.39 K/uL (1.2-3.4) L 03/15/23 14:50 [place] # (Auto) 0.19 K/uL (0.11-0.59) 03/15/23 14:50 Eos # (Auto) 0.14 K/uL (0-0.50) 03/15/23 14:50 Baso # (Auto) 0.03 K/uL (0-0.2) 03/15/23 14:50 Immature Gran # (Auto) 0.01 K/uL (0.01-0.20) 03/15/23 14:50 Polychromasia 1+ 03/15/23 14:50 Tear Drop Cells 1+ 03/15/23 14:50 Ovalocytes 1+ 03/15/23 14:50 PT 13.7 Seconds (9.0-12.0) H 03/16/23 07:13 INR 1.3 (0.9-1.1) H 03/16/23 07:13 APTT 26.8 Seconds (21.0-31.0) 03/15/23 14:50 PTT Ratio 1.0 03/15/23 14:50 Sodium 140 mmol/L (136-145) 03/16/23 07:13 Potassium 3.5 mmol/L (3.5-5.1) 03/16/23 07:13 Chloride 106 mmol/L (98-107) 03/16/23 07:13 Carbon Dioxide 25 mmol/L (21-32) 03/16/23 07:13 Anion Gap 9 (3-11) 03/16/23 07:13 BUN 8 mg/dl (6-23) 03/16/23 07:13 Creatinine 0.49 mg/dl (0.6-1.2) L 03/16/23 07:13 Est Cr Clr Drug Dosing 97.8 ml/min 03/16/23 07:13 Est GFR ( Amer) 120.2 ml/min 03/16/23 07:13 Est GFR (Non-Af Amer) 103.7 ml/min 03/16/23 07:13 BUN/Creatinine Ratio 16.3 (10-20) 03/16/23 07:13 Glucose 103 mg/dl (70-99(Fasting)) H 03/16/23 07:13 Calcium 9.2 mg/dl (8.6-10.3) 03/16/23 07:13 Magnesium 1.7 mg/dl (1.7-2.4) 03/16/23 07:13 Total Bilirubin 1.5 mg/dl (0.2-1.0) H 03/15/23 14:50 AST 33 U/L (13-39) 03/15/23 14:50 ALT 19 U/L (7-52) 03/15/23 14:50 Alkaline Phosphatase 173 U/L (34-104) H 03/15/23 14:50 Total Protein 7.0 gm/dl (6.0-8.3) 03/15/23 14:50 Albumin 3.7 gm/dl (3.4-5.0) 03/15/23 14:50 Globulin 3.3 gm/dl (2.5-4.0) 03/15/23 14:50 Albumin/Globulin Ratio 1.1 (0.9-2) 03/15/23 14:50 Urine Color Dark Yellow 03/16/23 03:30 Urine Appearance Cloudy (Clear) A 03/16/23 03:30 Urine pH 5.0 (4.5-7.5) 03/16/23 03:30 Ur Specific [place] 1.037 (1.000-1.030) H 03/16/23 03:30 Urine Protein 1+ (Negative) H 03/16/23 03:30 Urine Glucose (UA) Negative (Negative) 03/16/23 03:30 Urine Ketones Trace (Negative) H 03/16/23 03:30 Urine Blood 2+ (Negative) H 03/16/23 03:30 Urine Nitrite Positive (Negative) A 03/16/23 03:30 Urine Bilirubin Negative (Negative) 03/16/23 03:30 Urine Urobilinogen Negative (Negative) 03/16/23 03:30 Ur Leukocyte Esterase 1+ (Negative) H 03/16/23 03:30 Urine WBC (Auto) >30 /hpf (0-5) H 03/16/23 03:30 Urine RBC (Auto) 10-30 /hpf (0-4) H 03/16/23 03:30 U Hyaline Cast (Auto) 0 /lpf (0-5) 03/16/23 03:30 U Epithel Cells (Auto) 5-10 /lpf (0-5) H 03/16/23 03:30 Urine Bacteria (Auto) 4+ (Negative) H 03/16/23 03:30 SARS-CoV-2, RNA, NAAT NEGATIVE (NEGATIVE) 03/15/23 15:20 Impressions Femur X-Ray 03/15/23 10:50 XR femur LT 2V routine HISTORY: 63 years-old Female MID LEFT THIGH PAIN S/P FALL . Pain of the left thigh status post fall COMPARISON: Pelvis radiograph 02/13/2023, femur radiographs 10/22/2020. TECHNIQUE: 2 views of the left femur FINDINGS: Demineralized appearance the bones. Cortical thickening of the proximal tibia and fibula and distal femur suggestive of healed fracture deformities. Lateral plate and screw fusion hardware of the femoral diaphysis. 2 of the most proximal cannulated screws are fractured, new from 2019, however in retrospect was likely present on 02/13/2023 exam. A radiodense small caliber wire type device overlying the proximal femoral diaphysis again noted. Left hip total joint arthroplasty. There is lateral cortical irregularity involving the proximal femoral diaphysis seen best on the AP view. IMPRESSION: 1. Total joint arthroplasty with ORIF hardware of the femur. 2. Mild lateral cortical irregularity of the proximal femoral diaphysis is suspicious for a subtle acute periprosthetic fracture. 3. Fractured cannulated screws of the upper femoral diaphysis. ACT 112: Negative or not required by law. The above report was generated using voice recognition software. It may contain grammatical, syntax or spelling errors. Electronically signed by: Mike Purdy M.D. 03/15/2023 12:[address] 03/15/23 13:50 CT femur LT wo con, CT hip LT wo con CLINICAL HISTORY: EVAL PERIPROSTHETIC FRACTURE TECHNIQUE: Multidetector row helical CT of the left femur and left hip were performed without intravenous contrast. Coronal and sagittal reformations were obtained. Automated dose lowering techniques and/or adjustment according to patient size were utilized for this examination. CT DOSE: 2294.55 mGy.cm Comparison: Comparison is made to femur radiograph 03/15/2023 FINDINGS: There is irregularity of the anterior cortex of the femur just distal to the greater trochanter. There is fracture of the 2 superiormost femoral shaft screws as seen on prior x-ray. Total joint arthroplasty is seen without evidence of loosening or hardware fracture. Mild soft tissue swelling is seen. IMPRESSION: Periprosthetic fracture is seen in the proximal femoral shaft. Redemonstration of fracture cannulated screws in the proximal diaphysis. ACT 112: Negative or not required by law. Electronically signed by: Fish Carty M.D. 03/15/2023 3:[address] 03/15/23 13:50 CT femur LT wo con, CT hip LT wo con CLINICAL HISTORY: EVAL PERIPROSTHETIC FRACTURE TECHNIQUE: Multidetector row helical CT of the left femur and left hip were performed without intravenous contrast. Coronal and sagittal reformations were obtained. Automated dose lowering techniques and/or adjustment according to patient size were utilized for this examination. CT DOSE: 2294.55 mGy.cm Comparison: Comparison is made to femur radiograph 03/15/2023 FINDINGS: There is irregularity of the anterior cortex of the femur just distal to the greater trochanter. There is fracture of the 2 superiormost femoral shaft screws as seen on prior x-ray. Total joint arthroplasty is seen without evidence of loosening or hardware fracture. Mild soft tissue swelling is seen.
--- NOTE | 2023-03-16 18:18 | Hospitalist Progress Note ---
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 difficile diarrhea: Plan: Periprosthetic hip fracture: Ambulatory dysfunction: Weakness: CT femur and hip : Periprosthetic fracture is seen in the proximal femoral shaft Ortho evaluated - continue vitamin D, calcium, will need osteoporosis treatment. Non-operative plan, non weight bearing on Left leg and will be a bed to chair transnfer - recommends SNF placement Total hip precautions H/O right hip hemiarthroplasty: Remains on Eliquis post op management from recent R hip hemiarthroplasty- resumed Combined pulmonary fibrosis and emphysema (CPFE): Was inpt in January; followed by PUlmonary Chest CT during last admit: paraseptal emphysema appreciated bilaterally Patient also has bullous disease in the upper lobe as well as lower lobes Not in any exacerbation Not on any inhalers at home Start the patient on Anoro to be used on a daily basis; per discussion with ; this has been prescribed but not started. Updated on Med rec Flutter valve and ISB UTI Abnormal UA, started on Aztreonam, follow urine culture HTN: Takes metoprolol and HCTZ; continue Normotensive Bipolar disorder : Depression : Not on any medications; does at times have panic attacks that interrupt her day Reports using a variety of coping mechanisms; recites poetry Chronic recurrent CDiff: No current C. difficile; on vancomycin chronically for prophylaxis Disposition: PCP: Dr. Ortiz Code Status: DNR/DNI VTE Prophylaxis: resume Eliquis I spent a total of 50 minutes coordinating, documenting, and providing care for this patient excluding time spent in the performance of separately billed services. Admission and Anticipated Discharge Date Admission Date: March 15, 2023 Supervising Physician Co-Signing Physician Notes Patient is seen and examined at bedside. Discussed with physician payroll administrative assistant regarding plan of care. Continue current management. Urine cultures pending. Plan to adjust antibiotics as needed. Subjective Seen and evaluated in 381. Resting comfortably, at bedside. Has some discomfort but had just had discussion with Ortho about not on operative fracture. Awaiting PT and OT evaluations and placement. Denies any fever, chills, lightheadedness, headache, chest pain, shortness of breath, nausea, vomiting, abdominal pain, dysuria, diarrhea or constipation. Review of Systems Review of Systems: At least ten systems reviewed and negative except as noted in the HPI. Physical Exam Physical Exam: Gen: WD/WN, NAD, lying in bed, hard of hearing, A&Ox3 HEENT: Normocephalic, atraumatic, mucous membranes moist, L torticollis Lung: Coarse breath sounds bilaterally Heart: Regular rate, regular rhythm, no murmurs, rubs, or gallops Abdomen: Soft, NT, ND +BS x 4 Extremities: Proximal L hip TTP. No edema Skin: Warm, no rash Results & Data Results & Data Vital Signs (Past 12 Hours) Vital Signs Temp Pulse Resp BP Pulse Ox O2 Del Method 03/16/23 15:16 36.9 C 72 18 119/63 95 Room Air 03/16/23 07:33 36.7 C 68 18 121/61 95 Room Air Laboratory Results Short CBC 03/16/23 Range/Units 07:13 WBC 5.05 (4.8-10.8) K/ul Hgb 13.5 (12.0-16.0) g/dl Hct 40.0 (37.0-47.0) % Plt Count 147 (130-400) K/uL BMP 03/16/23 07:13 Sodium 140 Potassium 3.5 Chloride 106 Carbon Dioxide 25 BUN 8 Creatinine 0.49 L Glucose 103 H Calcium 9.2 Urine 03/16/23 Range/Units 03:30 Urine Color Dark Yellow Urine Appearance Cloudy A (Clear) Urine pH 5.0 (4.5-7.5) Ur Specific [place] 1.037 H (1.000-1.030) Urine Protein 1+ H (Negative) Urine Glucose (UA) Negative (Negative) Diagnostic Findings Femur X-Ray 03/15/23 10:50 XR femur LT 2V routine HISTORY: 63 years-old Female MID LEFT THIGH PAIN S/P FALL . Pain of the left thigh status post fall COMPARISON: Pelvis radiograph 02/13/2023, femur radiographs 10/22/2020. TECHNIQUE: 2 views of the left femur FINDINGS: Demineralized appearance the bones. Cortical thickening of the proximal tibia and fibula and distal femur suggestive of healed fracture deformities. Lateral plate and screw fusion hardware of the femoral diaphysis. 2 of the most proximal cannulated screws are fractured, new from 2019, however in retrospect was likely present on 02/13/2023 exam. A radiodense small caliber wire type device overlying the proximal femoral diaphysis again noted. Left hip total joint arthroplasty. There is lateral cortical irregularity involving the proximal femoral diaphysis seen best on the AP view. IMPRESSION: 1. Total joint arthroplasty with ORIF hardware of the femur. 2. Mild lateral cortical irregularity of the proximal femoral diaphysis is suspicious for a subtle acute periprosthetic fracture. 3. Fractured cannulated screws of the upper femoral diaphysis. ACT 112: Negative or not required by law. The above report was generated using voice recognition software. It may contain grammatical, syntax or spelling errors. Electronically signed by: Mike Purdy M.D. 03/15/2023 12:[address] 03/15/23 13:50 CT femur LT wo con, CT hip LT wo con CLINICAL HISTORY: EVAL PERIPROSTHETIC FRACTURE TECHNIQUE: Multidetector row helical CT of the left femur and left hip were performed without intravenous contrast. Coronal and sagittal reformations were obtained. Automated dose lowering techniques and/or adjustment according to patient size were utilized for this examination. CT DOSE: 2294.55 mGy.cm Comparison: Comparison is made to femur radiograph 03/15/2023 FINDINGS: There is irregularity of the anterior cortex of the femur just distal to the greater trochanter. There is fracture of the 2 superiormost femoral shaft screws as seen on prior x-ray. Total joint arthroplasty is seen without evidence of loosening or hardware fracture. Mild soft tissue swelling is seen. IMPRESSION: Periprosthetic fracture is seen in the proximal femoral shaft. Redemonstration of fracture cannulated screws in the proximal diaphysis. ACT 112: Negative or not required by law. Electronically signed by: Fish Carty M.D. 03/15/2023 3:[address] 03/15/23 13:50 CT femur LT wo con, CT hip LT wo con CLINICAL HISTORY: EVAL PERIPROSTHETIC FRACTURE TECHNIQUE: Multidetector row helical CT of the left femur and left hip were performed without intravenous contrast. Coronal and sagittal reformations were obtained. Automated dose lowering techniques and/or adjustment according to patient size were utilized for this examination. CT DOSE: 2294.55 mGy.cm Comparison: Comparison is made to femur radiograph 03/15/2023 FINDINGS: There is irregularity of the anterior cortex of the femur just distal to the greater trochanter. There is fracture of the 2 superiormost femoral shaft screws as seen on prior x-ray. Total joint arthroplasty is seen without evidence of loosening or hardware fracture. Mild soft tissue swelling is seen.
[2023-03-16] MEDS: APIXABAN 2.5 MG TAB PO SCH (21:05)
[2023-03-16] MEDS: VANCOMYCIN HCL 125 MG/2.5ML SOLN PO SCH (21:07)
[2023-03-17] MEDS: AZTREONAM 2,000 MG in DEXTROSE 5% 100 ML IV SCH ×3 (05:16→21:26)
[2023-03-17] MEDS: ACETAMINOPHEN 325 MG TAB PO SCH ×4 (05:20→22:04)
[2023-03-17 07:04] LABS: Hematocrit (blood only) 40.6 % (37.0-47.0); Mean Corpuscular Hemoglobin 33.3 pg (25.0-34.0); Mean Corpuscular Hgb Conc 34.5 g/dL (32.0-36.0); Mean Corpuscular Volume 96.7 fL (80.0-100.0); Mean Platelet Volume 10.5 fL (9.4-12.4); Platelet Count 149 K/uL (130-400); RDW Coefficient of Variation 15.7 % (11.5-14.5); RDW Standard Deviation 55.8 fL (36.4-46.3); White Blood Count 6.95 K/ul (4.8-10.8)
[2023-03-17 07:30] LABS: Calcium 9.3 mg/dl (8.6-10.3); Magnesium 1.8 mg/dl (1.7-2.4); Potassium 3.2 mmol/L (3.5-5.1)
[2023-03-17 07:35] LABS: BUN Creatinine Ratio 20.3 (10-20); Creatinine Clr Calc Pharmacy 81.2 ml/min; Est GFR (African American) 113.1 ml/min; Est GFR (Non-African American) 97.5 ml/min
[2023-03-17] MEDS ORDERED: UMECLIDINIUM/VILANTEROL 62.5/25MCG 7 PUFFS/INHALER INH SCH (09:00)
[2023-03-17] MEDS: MAGNESIUM OXIDE 400 MG TAB PO SCH ×2 (09:03→21:28)
[2023-03-17] MEDS: VITAMIN B COMPLEX TAB PO SCH (09:04)
[2023-03-17] MEDS: IRON POLYSACCHARIDE COMPLEX 150 MG CAPSULE PO SCH (09:04)
[2023-03-17] MEDS: CEROVITE ADV FORMULA TAB PO SCH (09:04)
[2023-03-17] MEDS: CALCIUM 600MG + VIT D 400 IU TAB PO SCH ×2 (09:04→21:29)
[2023-03-17] MEDS: ASCORBIC ACID 500 MG TAB PO SCH ×2 (09:04→21:29)
[2023-03-17] MEDS: METOPROLOL TARTRATE 100 MG TAB PO SCH ×2 (09:04→21:27)
[2023-03-17] MEDS: POT PHOSPHATE MONOBASIC W/ SOD TAB PO SCH ×4 (09:04→21:27)
[2023-03-17] MEDS: hydroCHLOROthiazide 25 MG TAB PO SCH (09:05)
[2023-03-17] MEDS: VANCOMYCIN HCL 125 MG/2.5ML SOLN PO SCH ×2 (09:06→21:26)
[2023-03-17] MEDS: UMECLIDINIUM/VILANTEROL 62.5/25MCG 7 PUFFS/INHALER INH SCH (09:06)
[2023-03-17] MEDS: APIXABAN 2.5 MG TAB PO SCH ×2 (09:06→21:59)
[2023-03-17] MEDS ORDERED: POTASSIUM CHLORIDE CRTAB 20 MEQ TABCR PO ONE (09:49)
[2023-03-17] MEDS: RASPBERRY SYRUP 5 ML UDP PO SCH (10:39)
[2023-03-17] MEDS: ADVANCED PROBIOTIC 1250 MG CAPSULE PO SCH (10:39)
[2023-03-17] MEDS: POTASSIUM CHLORIDE 10 MEQ TABCR PO SCH ×2 (10:39→21:24)
--- NOTE | 2023-03-17 10:47 | Orthopedic Progress Note ---
Date of Service March 17, 2023 Assessment & Plan (1) Periprosthetic hip fracture: Plan: The patient was educated regarding today's findings. She states she would like to go to [facility] for upper extremity rehab and strengthening. If this is not possible, she would like to go home with home therapy. She states she has weights and bands at home to do exercises. She states she also has a wheelchair. As long as the nonweightbearing status can be maintained, I did think she would be best at [facility] or a senior care facility until she is able to bear weight in 6 to 8 weeks. Care plan will be discussed with case management and Dr. Ogden. We will c tristen to follow while she is admitted. Admission and Anticipated Discharge Date Admission Date: March 15, 2023 Subjective This 63-year-old female is seen today in her room, for reevaluation of her left hip. The patient states she has no significant discomfort. She is quite conversive this morning. She feels that if her fracture is nonoperative, that she should be moved to either [facility] for rehab or sent home to do home therapy. She is hoping this happens quickly. She does not feel she needs to be in the hospital. She currently has no complaints. No chest pain, shortness of breath, abdominal pain, nausea, vomiting, or leg pain. Physical Exam Physical Exam: General: Well-developed, well-nourished, thin middle-aged female, in no acute distress. Sitting in bed. Alert and oriented. Skin: Warm and dry with fair turgor. No rashes. No ecchymosis or edema at her left hip. Musculoskeletal: The patient has intact motor function of her hip, knee, and ankle. Motion is limited secondary to strength and discomfort. No significant pain with passive logrolling. Neurologic: Gross sensation is intact across the left leg by soft touch. Peripheral pulses are 2+. Results & Data Vital Signs (Past 12 Hours) Vital Signs Temp Pulse Resp BP Pulse Ox O2 Del Method 03/17/23 08:00 36.8 C 83 16 116/63 95 Room Air Laboratory Results CBC obtained today shows a white count of 6.95. H&H of 14.0 and 40.6. BMP reveals sodium 140, potassium 3.2, chloride 104, BUN 12, creatinine 0.59. Glucose normal at 113.
--- NOTE | 2023-03-17 17:08 | Hospitalist Progress Note ---
Date of Service March 17, 2023 Assessment & Plan (1) Periprosthetic hip fracture: (2) Ambulatory dysfunction: (3) Combined pulmonary fibrosis and emphysema (CPFE): (4) Weakness: (5) Hard of hearing: (6) HTN (hypertension): (7) History of total hip replacement: (8) Bipolar disorder: (9) Depression: (10) C. difficile diarrhea: Plan: Periprosthetic hip fracture: Ambulatory dysfunction: Weakness: CT femur and hip : Periprosthetic fracture is seen in the proximal femoral shaft Ortho evaluated - continue vitamin D, calcium, will need osteoporosis treatment. Non-operative plan, non weight bearing on Left leg and will be a bed to chair transfer - recommends rehab vs SNF placement Total hip precautions H/O right hip hemiarthroplasty: Remains on Eliquis post op management from recent R hip hemiarthroplasty- resumed Combined pulmonary fibrosis and emphysema (CPFE): Was inpt in January; followed by [facility]monary Chest CT during last admit: paraseptal emphysema appreciated bilaterally Patient also has bullous disease in the upper lobe as well as lower lobes Not in any exacerbation Not on any inhalers at home Start the patient on Anoro to be used on a daily basis; per discussion with ; this has been prescribed but not started. Updated on Med rec Flutter valve and ISB UTI Abnormal UA, started on Aztreonam, follow urine culture - reincubating HTN: Takes metoprolol and HCTZ; continue Normotensive Bipolar disorder : Depression : Not on any medications; does at times have panic attacks that interrupt her day Reports using a variety of coping mechanisms; recites poetry Chronic recurrent CDiff: No current C. difficile; on vancomycin chronically for prophylaxis Disposition: PCP: Dr. Ortiz Code Status: DNR/DNI VTE Prophylaxis: resume Eliquis Discussed with CM - awaiting response from [facility] as patient and her 's first choice. I spent a total of 45 minutes coordinating, documenting, and providing care for this patient excluding time spent in the performance of separately billed services. Admission and Anticipated Discharge Date Admission Date: March 15, 2023 Supervising Physician Co-Signing Physician Notes Patient is seen and examined at bedside. Hip pain is controlled. Waiting for rehab placement. Cultures pending as well. No new complaints. On exam patient is moderately built and nourished,+ hearing impairment, coarse breath sounds, S1-S2, no murmur, no pedal edema, left hip decreased range of movement. Periprosthetic hip fracture, ambulatory dysfunction. Ideally will need rehab placement given nonweightbearing status for 6 to 8 weeks. Appreciate orthopedics input. Follow-up cultures. Continue Azactam for now. I personally reviewed the record. Patient is interviewed and examined at bedside. Patient's care is coordinated with Bozena Samuel PA-C. Please refer to the documentation above for details of patient's presentation and for discussion of other issues. Subjective Seen and evaluated in 381. Resting comfortably, denies any new issues overnight.Minimal discomfort in left hip but improved from yesterday. Discussed again the importance of rehab vs SNF after hospitalization given NWB status. Ortho also had similar conversation per chart review. Denies any fever, chills, lightheadedness, headache, chest pain, shortness of breath, nausea, vomiting, abdominal pain, dysuria, diarrhea or constipation. Review of Systems Review of Systems: At least ten systems reviewed and negative except as noted in the HPI. Physical Exam Physical Exam: Gen: WD/WN, NAD, lying in bed, hard of hearing, A&Ox3 HEENT: Normocephalic, atraumatic, mucous membranes moist, L torticollis Lung: Coarse breath sounds bilaterally - unchanged Heart: Regular rate, regular rhythm, no murmurs, rubs, or gallops Abdomen: Soft, NT, ND +BS x 4 Extremities: Proximal L hip TTP. No edema Skin: Warm, no rash Results & Data Results & Data Vital Signs (Past 12 Hours) Vital Signs Temp Pulse Resp BP Pulse Ox O2 Del Method 03/17/23 15:05 36.9 C 78 16 120/68 95 Room Air 03/17/23 11:27 Room Air 03/17/23 11:00 36.8 C 83 16 125/69 95 Room Air 03/17/23 08:00 36.8 C 83 16 116/63 95 Room Air Laboratory Results Short CBC 03/17/23 Range/Units 06:48 WBC 6.95 (4.8-10.8) K/ul Hgb 14.0 (12.0-16.0) g/dl Hct 40.6 (37.0-47.0) % Plt Count 149 (130-400) K/uL BMP 03/17/23 06:48 Sodium 140 Potassium 3.2 L Chloride 104 Carbon Dioxide 28 BUN 12 Creatinine 0.59 L Glucose 113 H Calcium 9.3 Diagnostic Findings Femur X-Ray 03/15/23 10:50 XR femur LT 2V routine HISTORY: 63 years-old Female MID LEFT THIGH PAIN S/P FALL . Pain of the left thigh status post fall COMPARISON: Pelvis radiograph 02/13/2023, femur radiographs 10/22/2020. TECHNIQUE: 2 views of the left femur FINDINGS: Demineralized appearance the bones. Cortical thickening of the proximal tibia and fibula and distal femur suggestive of healed fracture deformities. Lateral plate and screw fusion hardware of the femoral diaphysis. 2 of the most proximal cannulated screws are fractured, new from 2019, however in retrospect was likely present on 02/13/2023 exam. A radiodense small caliber wire type device overlying the proximal femoral diaphysis again noted. Left hip total joint arthroplasty. There is lateral cortical irregularity involving the proximal femoral diaphysis seen best on the AP view. IMPRESSION: 1. Total joint arthroplasty with ORIF hardware of the femur. 2. Mild lateral cortical irregularity of the proximal femoral diaphysis is suspi cious for a subtle acute periprosthetic fracture. 3. Fractured cannulated screws of the upper femoral diaphysis. ACT 112: Negative or not required by law. The above report was generated using voice recognition software. It may contain grammatical, syntax or spelling errors. Electronically signed by: Mike Purdy M.D. 03/15/2023 12:[address] 03/15/23 13:50 CT femur LT wo con, CT hip LT wo con CLINICAL HISTORY: EVAL PERIPROSTHETIC FRACTURE TECHNIQUE: Multidetector row helical CT of the left femur and left hip were performed without intravenous contrast. Coronal and sagittal reformations were obtained. Automated dose lowering techniques and/or adjustment according to patient size were utilized for this examination. CT DOSE: 2294.55 mGy.cm Comparison: Comparison is made to femur radiograph 03/15/2023 FINDINGS: There is irregularity of the anterior cortex of the femur just distal to the greater trochanter. There is fracture of the 2 superiormost femoral shaft screws as seen on prior x-ray. Total joint arthroplasty is seen without evidence of loosening or hardware fracture. Mild soft tissue swelling is seen. IMPRESSION: Periprosthetic fracture is seen in the proximal femoral shaft. Redemonstration of fracture cannulated screws in the proximal diaphysis. ACT 112: Negative or not required by law. Electronically signed by: Fish Carty M.D. 03/15/2023 3:[address] 03/15/23 13:50 CT femur LT wo con, CT hip LT wo con CLINICAL HISTORY: EVAL PERIPROSTHETIC FRACTURE TECHNIQUE: Multidetector row helical CT of the left femur and left hip were performed without intravenous contrast. Coronal and sagittal reformations were obtained. Automated dose lowering techniques and/or adjustment according to patient size were utilized for this examination. CT DOSE: 2294.55 mGy.cm Comparison: Comparison is made to femur radiograph 03/15/2023 FINDINGS: There is irregularity of the anterior cortex of the femur just distal to the greater trochanter. There is fracture of the 2 superiormost femoral shaft screws as seen on prior x-ray. Total joint arthroplasty is seen without evidence of loosening or hardware fracture. Mild soft tissue swelling is seen.
[2023-03-17] MEDS: traMADol HCL 50 MG TABLET PO PRN (21:24)
[2023-03-18] MEDS: AZTREONAM 2,000 MG in DEXTROSE 5% 100 ML IV SCH ×2 (05:36→15:17)
[2023-03-18] MEDS: ACETAMINOPHEN 325 MG TAB PO SCH ×2 (05:36→12:23)
--- NOTE | 2023-03-18 09:33 | Orthopedic Progress Note ---
Date of Service March 18, 2023 Assessment & Plan (1) Periprosthetic hip fracture: Plan: Discussed and reviewed with patient the importance of maintaining nonweightbearing on that left lower extremity. She was strongly advised on utilizing fall precautions and to take her time and not to become impulsive. The patient was educated regarding today's findings. We discussed that she has to maintain nonweightbearing on the left lower extremity for 6 to 8 weeks. A dvised if she places weight through the left lower extremity or happens to fall again could result in displacement or further fracture of the left lower extremity that would require surgical intervention. Currently working [facility] for [facility]. Patient seems adamant if this does not go through she is going home. Case management will work with her for disposition. She will follow-up in our office with repeat imaging once discharge. Patient was advised if she has any concerns, questions or change in her symptoms to contact the office immediately. Patient verbalized und erstanding and is in agreement with plan Present on Admission?: Yes Admission and Anticipated Discharge Date Admission Date: March 15, 2023 Subjective Patient is a 63-year-old female who is a known patient to Dr. Salguero. She has a history of a fall that resulted in a periprosthetic left nondisplaced hip fracture. She was seen bedside this AM. She is alert and oriented x3 no acute distress. Very hard of hearing. She reports she has no pain at all in the hip. She states she was able to get up and participate with physical therapy yesterday. She states she is maintaining nonweightbearing on the left lower extremity. She states she feels she is able to go home. She states she has her main living area on one floor and has bathroom on main living area. She denies any fever, chills, chest pain, shortness of breath, nausea or vomiting. Review of Systems Review of Systems: Please refer to HPI Physical Exam Physical Exam: General: Patient is alert and oriented x3 no acute distress conversive hard of hearing Musculoskeletal/integumentary: Focused on the left lower extremity. Skin is normal in color and temperature. Negative for edema or ecchymosis. She is able to actively flex and extend hip and knee without any pain or grimacing. She tolerates gentle internal and external rotation of the hip without any complaints of pain. Able to fully dorsiflex and plantarflex ankle. Calf is soft and nontender. Negative rocker sign. Left lower extremity is neurovascular intact Results & Data Vital Signs (Past 12 Hours) Vital Signs Temp Pulse Resp BP Pulse Ox O2 Del Method 03/18/23 07:55 36.8 C 82 16 111/53 L 97 Room Air 03/17/23 21:55 Room Air
[2023-03-18] MEDS ORDERED: POTASSIUM CHLORIDE CRTAB 20 MEQ TABCR PO ONE (09:50)
[2023-03-18] MEDS: CALCIUM 600MG + VIT D 400 IU TAB PO SCH (09:54)
[2023-03-18] MEDS: APIXABAN 2.5 MG TAB PO SCH (09:54)
[2023-03-18] MEDS: ASCORBIC ACID 500 MG TAB PO SCH (09:54)
[2023-03-18] MEDS: hydroCHLOROthiazide 25 MG TAB PO SCH (09:55)
[2023-03-18] MEDS: ADVANCED PROBIOTIC 1250 MG CAPSULE PO SCH (09:56)
[2023-03-18] MEDS: IRON POLYSACCHARIDE COMPLEX 150 MG CAPSULE PO SCH (09:56)
[2023-03-18] MEDS: METOPROLOL TARTRATE 100 MG TAB PO SCH (09:57)
[2023-03-18] MEDS: POT PHOSPHATE MONOBASIC W/ SOD TAB PO SCH ×2 (09:58→12:24)
[2023-03-18] MEDS: CEROVITE ADV FORMULA TAB PO SCH (09:58)
[2023-03-18] MEDS: UMECLIDINIUM/VILANTEROL 62.5/25MCG 7 PUFFS/INHALER INH SCH (10:01)
[2023-03-18] MEDS: VITAMIN B COMPLEX TAB PO SCH (10:01)
[2023-03-18] MEDS: POTASSIUM CHLORIDE 10 MEQ TABCR PO SCH (10:12)
[2023-03-18] MEDS: RASPBERRY SYRUP 5 ML UDP PO SCH (10:58)
[2023-03-18] MEDS: VANCOMYCIN HCL 125 MG/2.5ML SOLN PO SCH (10:58)
[2023-03-18 11:38] LABS: Hemoglobin 13.5 g/dl (12.0-16.0); Mean Corpuscular Hemoglobin 33.1 pg (25.0-34.0); Mean Corpuscular Hgb Conc 33.8 g/dL (32.0-36.0); Mean Platelet Volume 10.5 fL (9.4-12.4); Platelet Count 170 K/uL (130-400); RDW Coefficient of Variation 16.1 % (11.5-14.5); RDW Standard Deviation 57.4 fL (36.4-46.3); Red Blood Count 4.08 M/uL (4.20-5.40); White Blood Count 5.69 K/ul (4.8-10.8)
[2023-03-18 11:51] LABS: BUN Creatinine Ratio 22.1 (10-20); Calcium 9.5 mg/dl (8.6-10.3); Creatinine Clr Calc Pharmacy 70.5 ml/min; Est GFR (African American) 107.9 ml/min; Est GFR (Non-African American) 93.1 ml/min; Potassium 3.4 mmol/L (3.5-5.1)
[2023-03-18] MEDS: MAGNESIUM OXIDE 400 MG TAB PO SCH (12:23)
--- NOTE | 2023-03-18 14:38 | Hospitalist Progress Note ---
Date of Service March 18, 2023 Assessment & Plan (1) Periprosthetic hip fracture: (2) Ambulatory dysfunction: (3) Combined pulmonary fibrosis and emphysema (CPFE): (4) Weakness: (5) Hard of hearing: (6) HTN (hypertension): (7) History of total hip replacement: (8) Bipolar disorder: (9) Depression: (10) C. difficile diarrhea: Plan: Periprosthetic hip fracture: Ambulatory dysfunction: Weakness: CT femur and hip : Periprosthetic fracture is seen in the proximal femoral shaft Ortho evaluated - continue vitamin D, calcium, will need osteoporosis treatment. Non-operative plan, non weight bearing on Left leg and will be a bed to chair transfer - recommends rehab vs SNF placement Total hip precautions Ortho recommends to maintain nonweightbearing of the left lower extremity for 6 to 8 weeks Patient refused to rehab placement and prefers to be discharged home Needs follow-up with orthopedics upon discharge UTI Urine culture growing gram-negative Currently on Azactam Patient prefers to be discharged home despite explaining the risks and compl ications of being untreated appropriately for UTI Patient prefers to follow-up with PCP for further recommendations. Plan to discharge on oral antibiotics to complete the course H/O right hip hemiarthroplasty: Remains on Eliquis post op management from recent R hip hemiarthroplasty- resumed Combined pulmonary fibrosis and emphysema (CPFE): Was inpt in January; followed by PU[facility]monary Chest CT during last admit: paraseptal emphysema appreciated bilaterally Patient also has bullous disease in the upper lobe as well as lower lobes Not in any exacerbation Not on any inhalers at home Start the patient on Anoro to be used on a daily basis; per discussion with ; this has been prescribed but not started. Updated on Med rec Flutter valve and ISB HTN: Takes metoprolol and HCTZ; continue Normotensive Bipolar disorder : Depression : Not on any medications; does at times have panic attacks that interrupt her day Reports using a variety of coping mechanisms; recites poetry Chronic recurrent CDiff: No current C. difficile; on vancomycin chronically for prophylaxis Disposition: PCP: Dr. Ortiz Code Status: DNR/DNI VTE Prophylaxis: Eliquis Disposition Home Refused Rehab Admission and Anticipated Discharge Date Admission Date: March 15, 2023 Subjective Patient is seen and examined at bedside Offers no complaints Prefers to be discharged home today Refused rehab placement at bedside who agrees with patient's decision Denies any chest pain, dyspnea, dizziness, nausea, abdominal pain Review of Systems Review of Systems: All systems reviewed & are unremarkable except as noted in Subjective Physical Exam Physical Exam: Physical Exam: Vitals signs as noted above General Appearance:Moderately built and nourished, no apparent distress Head: normocephalic, Atraumatic Eyes: normal inspection, EOMI Neck: supple, Trachea midline Respiratory/Chest: Normal breath sounds, CTA, No accessory muscle use Cardiovascular: S1, S2, No murmur Abdomen/GI:Soft, Non tender, Bowel sounds present Extremities/Musculoskeletal:normal inspection, no edema, Left hip ROM Neurologic/Psych:AAOX3,LLE weakness, +Hearing impairment Skin: normal color, warm Results & Data Results & Data Vital Signs (Past 12 Hours) Vital Signs Temp Pulse Resp BP Pulse Ox O2 Del Method 03/18/23 09:33 Room Air 03/18/23 07:55 36.8 C 82 16 111/53 L 97 Room Air Laboratory Results Short CBC 03/18/23 Range/Units 10:52 WBC 5.69 (4.8-10.8) K/ul Hgb 13.5 (12.0-16.0) g/dl Hct 40.0 (37.0-47.0) % Plt Count 170 (130-400) K/uL BMP 03/18/23 10:52 Sodium 141 Potassium 3.4 L Chloride 106 Carbon Dioxide 29 BUN 15 Creatinine 0.68 Glucose 106 H Calcium 9.5
--- NOTE | 2023-03-18 14:59 | Discharge Summary ---
Date of Service March 18, 2023 Admission HPI Per Admitting Provider Ms. Dee Dorantes is a complicated female that presents to the ED s/p mechanical fall that has progressively been worsening. An x-ray revealed a new left perioprosthetic fracture. CT femur and hip revealed periprosthetic fracture is seen in the proximal femoral shaft. Earlier last month, on 02/14 she presented to the ED s/p fall after walking her dog. At that time she was found to have a right hip fracture. She underwent a right hemiarthroplasty under the care of Dr. Ogden and proceeded to [facility] post op and went home. She was to remain on Eloquid for DVT Prophylaxis. On 03/06 she experienced another fall; falling over her trash can onto her left hip not requiring surgery. Saw Dr. Alvarado on 03/07 for f/u x-rays; progressively worsening ambulatory dysfunction. She reports that Tylenol with codeine had not been helping her. She received Fentanyl in ED with minimal relief. She is able to hold full conversation. Patient states she has panic attacks that interrupt her day that she uses a variety of coping mechanisms to help with. She recites a poem, etc. No medications. Additional PMH includes: ambulatory dysfunction, CPFE, numerous fractures including hip and tib/fib, pressure ulcers, HTN, liver cirrhosis, bipolar disorder, depression and anxiety, schizophrenia, and chronic recurrent CDiff. Pt is sitting in her hospital bed in no apparent distress. She is able to follow commands, but is profusely weak with BL LE 2/5 strength. She is [employer] [employer] and requires assistance from her for all of her ADL's. Orthopedics is aware of her fracture; will keep NWB, NPO, and provide pain management until determination held regarding surgical intervention. Patient will be admitted for further evaluation and management. Admission Exam Per Admitting Provider Neuro: AAOx4, PERRLA, no aphagia, memory changes, CNII-XII grossly intact HEENT: head normocephalic, moist mucus membranes CV: S1/S2, (-) M/G/R, (-) edema, cap refill < 3 seconds Resp: Lungs CTA in all henry. On RA GI: Abdomen S/NT/ND, Ax4 bowel sounds, (-) CVA tenderness Musculoskeletal: 2/5 B/L UE strength, 2/5 B/L LE strength. (+) gait disturbance Skin: (-) rashes , (-) erythema. Psych: euthymic mood Principal Diagnosis Periprosthetic Left hip fracture Ambulatory dysfunction Urinary tract infection Discharge Data Allergies Allergy/AdvReac Type Severity Reaction Status Date / Time Penicillins Allergy Severe ANAPHYLAXIS Verified 03/15/23 14:57 oxycodone [From Percodan] Allergy Unknown Unknown Verified 03/15/23 14:57 ketorolac [From Toradol] AdvReac Severe Breathing Verified 03/15/23 14:57 difficulty hydrocodone AdvReac Intermediate Nausea Verified 03/15/23 14:57 [From Lorcet (hydrocodone)] rifaximin [From Xifaxan] AdvReac Intermediate Dizzy, Verified 03/15/23 14:57 Fell down ursodiol AdvReac Intermediate Dizzy, Verified 03/15/23 14:57 Fell down Consultations 03/15/23 14:18 ED Decision to Admit Stat 03/15/23 14:20 Consult General Surgery Routine Procedures Performed Laboratory Results WBC 5.69 K/ul (4.8-10.8) 03/18/23 10:52 RBC 4.08 M/uL (4.20-5.40) L 03/18/23 10:52 Hgb 13.5 g/dl (12.0-16.0) 03/18/23 10:52 Hct 40.0 % (37.0-47.0) 03/18/23 10:52 MCV 98.0 fL (80.0-100.0) 03/18/23 10:52 MCH 33.1 pg (25.0-34.0) 03/18/23 10:52 MCHC 33.8 g/dL (32.0-36.0) 03/18/23 10:52 RDW Std Deviation 57.4 fL (36.4-46.3) H 03/18/23 10:52 RDW Coeff of Dewayne 16.1 % (11.5-14.5) H 03/18/23 10:52 Plt Count 170 K/uL (130-400) 03/18/23 10:52 MPV 10.5 fL (9.4-12.4) 03/18/23 10:52 Immature Gran % (Auto) 0.3 % 03/15/23 14:50 Neut % (Auto) 80.6 % 03/15/23 14:50 Lymph % (Auto) 9.9 % 03/15/23 14:50 [place] % (Auto) 4.8 % 03/15/23 14:50 Eos % (Auto) 3.6 % 03/15/23 14:50 Baso % (Auto) 0.8 % 03/15/23 14:50 Neut # (Auto) 3.17 K/uL (1.40-6.50) 03/15/23 14:50 Lymph # (Auto) 0.39 K/uL (1.2-3.4) L 03/15/23 14:50 [place] # (Auto) 0.19 K/uL (0.11-0.59) 03/15/23 14:50 Eos # (Auto) 0.14 K/uL (0-0.50) 03/15/23 14:50 Baso # (Auto) 0.03 K/uL (0-0.2) 03/15/23 14:50 Immature Gran # (Auto) 0.01 K/uL (0.01-0.20) 03/15/23 14:50 Polychromasia 1+ 03/15/23 14:50 Tear Drop Cells 1+ 03/15/23 14:50 Ovalocytes 1+ 03/15/23 14:50 PT 13.7 Seconds (9.0-12.0) H 03/16/23 07:13 INR 1.3 (0.9-1.1) H 03/16/23 07:13 APTT 26.8 Seconds (21.0-31.0) 03/15/23 14:50 PTT Ratio 1.0 03/15/23 14:50 Sodium 141 mmol/L (136-145) 03/18/23 10:52 Potassium 3.4 mmol/L (3.5-5.1) L 03/18/23 10:52 Chloride 106 mmol/L (98-107) 03/18/23 10:52 Carbon Dioxide 29 mmol/L (21-32) 03/18/23 10:52 Anion Gap 6 (3-11) 03/18/23 10:52 BUN 15 mg/dl (6-23) 03/18/23 10:52 Creatinine 0.68 mg/dl (0.6-1.2) 03/18/23 10:52 Est Cr Clr Drug Dosing 70.5 ml/min 03/18/23 10:52 Est GFR ( Amer) 107.9 ml/min 03/18/23 10:52 Est GFR (Non-Af Amer) 93.1 ml/min 03/18/23 10:52 BUN/Creatinine Ratio 22.1 (10-20) H 03/18/23 10:52 Glucose 106 mg/dl (70-99(Fasting)) H 03/18/23 10:52 Calcium 9.5 mg/dl (8.6-10.3) 03/18/23 10:52 Magnesium 1.8 mg/dl (1.7-2.4) 03/17/23 06:48 Total Bilirubin 1.5 mg/dl (0.2-1.0) H 03/15/23 14:50 AST 33 U/L (13-39) 03/15/23 14:50 ALT 19 U/L (7-52) 03/15/23 14:50 Alkaline Phosphatase 173 U/L (34-104) H 03/15/23 14:50 Total Protein 7.0 gm/dl (6.0-8.3) 03/15/23 14:50 Albumin 3.7 gm/dl (3.4-5.0) 03/15/23 14:50 Globulin 3.3 gm/dl (2.5-4.0) 03/15/23 14:50 Albumin/Globulin Ratio 1.1 (0.9-2) 03/15/23 14:50 Urine Color Dark Yellow 03/16/23 03:30 Urine Appearance Cloudy (Clear) A 03/16/23 03:30 Urine pH 5.0 (4.5-7.5) 03/16/23 03:30 Ur Specific [place] 1.037 (1.000-1.030) H 03/16/23 03:30 Urine Protein 1+ (Negative) H 03/16/23 03:30 Urine Glucose (UA) Negative (Negative) 03/16/23 03:30 Urine Ketones Trace (Negative) H 03/16/23 03:30 Urine Blood 2+ (Negative) H 03/16/23 03:30 Urine Nitrite Positive (Negative) A 03/16/23 03:30 Urine Bilirubin Negative (Negative) 03/16/23 03:30 Urine Urobilinogen Negative (Negative) 03/16/23 03:30 Ur Leukocyte Esterase 1+ (Negative) H 03/16/23 03:30 Urine WBC (Auto) >30 /hpf (0-5) H 03/16/23 03:30 Urine RBC (Auto) 10-30 /hpf (0-4) H 03/16/23 03:30 U Hyaline Cast (Auto) 0 /lpf (0-5) 03/16/23 03:30 U Epithel Cells (Auto) 5-10 /lpf (0-5) H 03/16/23 03:30 Urine Bacteria (Auto) 4+ (Negative) H 03/16/23 03:30 SARS-CoV-2, RNA, NAAT NEGATIVE (NEGATIVE) 03/15/23 15:20 Impressions Femur X-Ray 03/15/23 10:50 XR femur LT 2V routine HISTORY: 63 years-old Female MID LEFT THIGH PAIN S/P FALL . Pain of the left thigh status post fall COMPARISON: Pelvis radiograph 02/13/2023, femur radiographs 10/22/2020. TECHNIQUE: 2 views of the left femur FINDINGS: Demineralized appearance the bones. Cortical thickening of the proximal tibia and fibula and distal femur suggestive of healed fracture deformities. Lateral plate and screw fusion hardware of the femoral diaphysis. 2 of the most proximal cannulated screws are fractured, new from 2019, however in retrospect was likely present on 02/13/2023 exam. A radiodense small caliber wire type device overlying the proximal femoral diaphysis again noted. Left hip total joint arthroplasty. There is lateral cortical irregularity involving the proximal femoral diaphysis seen best on the AP view. IMPRESSION: 1. Total joint arthroplasty with ORIF hardware of the femur. 2. Mild lateral cortical irregularity of the proximal femoral diaphysis is suspicious for a subtle acute periprosthetic fracture. 3. Fractured cannulated screws of the upper femoral diaphysis. ACT 112: Negative or not required by law. The above report was generated using voice recognition software. It may contain grammatical, syntax or spelling errors. Electronically signed by: Mike Purdy M.D. 03/15/2023 12:[address] 03/15/23 13:50 CT femur LT wo con, CT hip LT wo con CLINICAL HISTORY: EVAL PERIPROSTHETIC FRACTURE TECHNIQUE: Multidetector row helical CT of the left femur and left hip were performed without intravenous contrast. Coronal and sagittal reformations were obtained. Automated dose lowering techniques and/or adjustment according to patient size were utilized for this examination. CT DOSE: 2294.55 mGy.cm Comparison: Comparison is made to femur radiograph 03/15/2023 FINDINGS: There is irregularity of the anterior cortex of the femur just distal to the greater trochanter. There is fracture of the 2 superiormost femoral shaft screws as seen on prior x-ray. Total joint arthroplasty is seen without evidence of loosening or hardware fracture. Mild soft tissue swelling is seen. IMPRESSION: Periprosthetic fracture is seen in the proximal femoral shaft. Redemonstration of fracture cannulated screws in the proximal diaphysis. ACT 112: Negative or not required by law. Electronically signed by: Fish Carty M.D. 03/15/2023 3:[address] 03/15/23 13:50 CT femur LT wo con, CT hip LT wo con CLINICAL HISTORY: EVAL PERIPROSTHETIC FRACTURE TECHNIQUE: Multidetector row helical CT of the left femur and left hip were performed without intravenous contrast. Coronal and sagittal reformations were obtained. Automated dose lowering techniques and/or adjustment according to patient size were utilized for this examination. CT DOSE: 2294.55 mGy.cm Comparison: Comparison is made to femur radiograph 03/15/2023 FINDINGS: There is irregularity of the anterior cortex of the femur just distal to the greater trochanter. There is fracture of the 2 superiormost femoral shaft screws as seen on prior x-ray. Total joint arthroplasty is seen without evidence of loosening or hardware fracture. Mild soft tissue swelling is seen. IMPRESSION: Periprosthetic fracture is seen in the proximal femoral shaft. Redemonstration of fracture cannulated screws in the proximal diaphysis. ACT 112: Negative or not required by law. Electronically signed by: Fish Carty M.D. 03/15/2023 3:37 PM Ordered Studies 03/15/23 13:50 CT femur LT wo con Stat CT hip LT wo con Stat Hospital Course (1) Periprosthetic hip fracture: (2) Ambulatory dysfunction: (3) Combined pulmonary fibrosis and emphysema (CPFE): (4) Weakness: (5) Hard of hearing: (6) HTN (hypertension): (7) History of total hip replacement: (8) Bipolar disorder: (9) Depression: (10) C. difficile diarrhea: Periprosthetic hip fracture: Ambulatory dysfunction: Weakness: CT femur and hip : Periprosthetic fracture is seen in the proximal femoral shaft Ortho evaluated - continue vitamin D, calcium, will need osteoporosis treatment. Non-operative plan, non weight bearing on Left leg and will be a bed to chair transfer - recommends rehab vs SNF placement Total hip precautions Ortho recommends to maintain nonweightbearing of the left lower extremity for 6 to 8 weeks Patient refused to rehab placement and prefers to be discharged home Needs follow-up with orthopedics upon discharge UTI Urine culture growing gram-negative Currently on Azactam Patient prefers to be discharged home despite explaining the risks and complications of being untreated appropriately for UTI Patient prefers to follow-up with PCP for further recommendations. Plan to discharge on oral antibiotics to complete the course H/O right hip hemiarthroplasty: Remains on Eliquis post op management from recent R hip hemiarthroplasty- resumed Combined pulmonary fibrosis and emphysema (CPFE): Was inpt in January; followed by PUlmonary Chest CT during last admit: paraseptal emphysema appreciated bilaterally Patient also has bullous disease in the upper lobe as well as lower lobes Not in any exacerbation Not on any inhalers at home Start the patient on Anoro to be used on a daily basis; per discussion with ; this has been prescribed but not started. Updated on Med rec Flutter valve and ISB HTN: Takes metoprolol and HCTZ; continue Normotensive Bipolar disorder : Depression : Not on any medications; does at times have panic attacks that interrupt her day Reports using a variety of coping mechanisms; recites poetry Chronic recurrent CDiff: No current C. difficile; on vancomycin chronically for prophylaxis Disposition: PCP: Dr. Ortiz Code Status: DNR/DNI VTE Prophylaxis: Eliquis Disposition Home Refused Rehab Total Time Total Time Spent Total Time Spent (In Minutes): 54 minutes Discharge Plan Discharge Items Patient Disposition: Home - Home Health Services Reason For Visit: FEMUR FRACTURE Discharge Diagnosis: Periprosthetic Left hip fracture Ambulatory dysfunction Urinary tract infection Activity: Per Instructions section Weightbearing: Left non-weightbearing Non-emergency contact: Surgeon Call non-emergency contact if: your pain is not controlled Follow-up/Referrals: Jersey Ortiz, DO [Primary Care Provider] - Elias Ogden MD [Surgeon] - 03/25/23 11:00 am Diet: Regular Addtl Attending Provider Instructions: Follow-up with your primary care physician in 1 week Follow-up with your orthopedic surgeon Dr. Elias Ogden on 03/25/23 as scheduled Follow-up with your automobile technician for treatment of osteoporosis as recommended by orthopedic surgeon. --- Your urine culture is pending at the time of discharge. Continue taking ciprofloxacin to 250 mg twice daily for now. Your medications need to be readjusted based on your final cultures. Discussed with your physician for further recommendations. Seek immediate medical attention if your symptoms reoccur or worsen Please take all medications as instructed on discharge list below. Please call if you have any questions or problems. 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 Walker assistance with weight bearing Vit D supplementation. Follow up with Rheumatology as an outpatient at [facility] Rheumatology for osteoporosis treatment. Follow up with Dr. Ogden as scheduled. Pending Studies at Discharge: Yes Studies:: Urine Culture Stand-Alone Forms: My [facility], Smoking Cessation Medications and DC Order Prescriptions: New Advanced Probiotic 625 mg (10 billion cell) Capsule 2 cap PO DAILY Qty: 60 0RF ciprofloxacin HCl 250 mg tablet 250 mg PO BID Qty: 6 0RF Continued Acidophilus Lactobacillus 2 cap PO HS potassium chloride 10 mEq capsule, extended release 10 meq PO BID acetaminophen [Tylenol] 325 mg Tablet 350 mg PO QID PRN (Reason: Pain) loperamide 2 mg Capsule 2 mg PO Q8 PRN (Reason: Diarrhea) Rx Instructions: FOR 10 DAYS PRN metoprolol tartrate 100 mg tablet 100 mg PO BID polysaccharide iron complex [Ferrex 150] 150 mg iron Capsule 150 mg PO DAILY ondansetron HCl 4 mg Tablet 4 mg PO Q6H PRN (Reason: Nausea) acetaminophen-codeine 300-30 mg tablet 1 tab PO BID PRN (Reason: Pain) [id number]-xisdvkmsaldag-pouv 50-325-40 mg Tablet 1 tab PO Q6H PRN (Reason: Migraine Headache) vancomycin 125 mg capsule 125 mg PO QAM ascorbic acid (vitamin C) [Vitamin C] 500 mg Tablet 500 mg PO BID hydrocortisone 0.25 % Cream 1 applic TOPICAL DIRECTED vitamin B complex Tablet 1 tab PO DAILY S-Kown-Burwchl 250 mg Tablet 1 tab PO QID Rx Instructions: DISSOLLVE IN 6 OZ WATER. UNKNOWN STRENGTH. hydrochlorothiazide 25 mg tablet 12.5 mg PO DAILY Rx Instructions: TAKE 1/2 IN AM PER [facility] loratadine 10 mg Tablet 10 mg PO DAILY PRN (Reason: ALLERGIES) [id number]-ooauqqbn-nmtgua Tablet 1 tab PO DAILY Calcium 600 + D(3) 600 mg-5 mcg (200 unit) Capsule 1 cap PO BID magnesium oxide 400 mg magnesium Tablet 400 mg PO BID Ciloxan 0.3 % Ointment 1 applic ophthalmic (eye) TID Qty: 0 0RF guaifenesin [Mucinex] 600 mg Tablet Extended Release 12hr 600 mg PO Q12 PRN (Reason: congestion) Qty: 0 0RF dextroamphetamine-amphetamine 10 mg tablet 1 tab PO TID tramadol 50 mg Tablet 50 mg PO Q6H PRNQty: 0 0RF Eliquis 2.5 mg Tablet 2.5 mg PO BID Qty: 0 0RF Anoro Ellipta 62.5-25 mcg/actuation Blister With Device 1 inh INHALATION DAILY Discharge Orders: Discharge Order (Routine); Ordered 03/18/23 Ordered By: Ricardo Langston Admission Data Admit Date/Time: 03/15/23 14:20 Attending Provider: Ricardo Langston Admit Provider: Ketan Londono Primary Care Provider: Jersey Ortiz Other Providers: Ketan Londono ; Elias Ogden ; Bozena Samuel ; [facility]
== END 2023-03-18 16:08 | disposition home health service (06) | DRG 543 ==
LOC: ED 10:02 → SUATTDRO 14:20 → EDINP 14:20 → 3N 20:56

== ENCOUNTER 2023-03-19 10:39 | Inpatient (IN) ==
[2023-03-19] MEDS ORDERED: MoRPHine SULFATE 4 MG/ML 1 ML CARP\\VIAL IV STA (10:49)
--- NOTE | 2023-03-19 11:11 | XRay Report ---
XR pelvis 1-2V routine HISTORY: 63 years-old Female hip dislocation acute right hip pain COMPARISON: Pelvis radiograph 03/07/2023, CT left hip and femur 4 18,023 TECHNIQUE: AP view the pelvis FINDINGS: Bilateral hip total joint arthroplasties. There is superior dislocation of the right femoral head pro sthesis by approximately 6.9 cm. Partially imaged ORIF hardware of the left femoral head cysts again noted with proximal cerclage wires. The 2 most proximal cannulated screws are again noted to be fract ured. Likely acute periprosthetic fracture of the left proximal femoral diaphysis is again noted with adjacent cerclage wires. Metallic surgical clip device is noted inferior to the left hip which may b e external to the patient. Acute appearing left inferior pubic ramus fracture again noted. IMPRESSION: 1. Bilateral hip total joint arthroplasties with superiorly dislocated right femoral head prosthesis. No evidence of acute right hip fracture. 2. ORIF changes of the left femur with fracture cannulated screws again noted. 3. Periprosthetic fracture of the left proximal femur again noted with subtle acute nondisplaced left pelvic ring fracture, unchanged from prior CT. ACT 112: Negative or not required by law. The above report was generated using voice recognition software. It may contain grammatical, syntax o r spelling errors. Electronically signed by: Mike Purdy M.D. 03/19/2023 11:09 AM
[2023-03-19] MEDS ORDERED: ONDANSETRON INJ 2 MG/ML 2 ML VIAL IV STA (11:16)
[2023-03-19] MEDS ORDERED: PROPOFOL IV EMULSION 10 MG/ML 20 ML VIAL IV STA (11:16)
[2023-03-19] MEDS ORDERED: KETAMINE HCL INJ 50 MG/ML 10 ML VIAL IV STA (11:16)
[2023-03-19] MEDS ORDERED: SODIUM CHLORIDE 0.9% 500 ML IV SCH (11:30)
--- NOTE | 2023-03-19 11:55 | Emergency Department Note ---
ED Visit Note Procedure note: Right hip reduction Indication: Dislocated prosthetic right hip. The patient is a 63-year-old female who presented to the emergency department with a relatively atraumatic right hip dislocation. The patient had recent hip surgery almost a month ago. The x-ray does show a complete dislocation of the pelvis component. The acetabular component is superior. The patient was sedated by Dr. Luna. Please see his note for sedation details. After the patient was sedated the right hip was brought into full flexion. Internal/e xternal rotation were applied with traction towards the ceiling. There was no palpable reduction but on reevaluation the patient's leg length discrepancy had significantly improved. Repeat x-rays do show improved alignment however the acetabular component is still tilted. We will discuss this further with orthopedics prior to attempting any further reduction. The patient tolerated procedure well. .
--- NOTE | 2023-03-19 12:03 | XRay Report ---
XR pelvis 1-2V routine HISTORY: 63 years-old Female rt hip dislocation status post reduction of the right hip arthroplasty COMPARISON: Pelvis radiograph of same day at 10:47 AM TECHNIQUE: AP view of the pelvis FINDINGS: Bilateral hip arthroplasties. Status post reduction of the right femoral head component which is subl uxed laterally. No acute right-sided femoral fracture. Left pelvic ring and left femoral periprosthet ic fracture is again noted. IMPRESSION: 1. Status post reduction of the right hip arthroplasty with mild lateral subluxation of less than 1 c m. 2. Left pelvic ring and left proximal femoral periprosthetic fractures again noted. 3. No acute right femoral fracture identified. ACT 112: Negative or not required by law. The above report was generated using voice recognition software. It may contain grammatical, syntax o r spelling errors. Electronically signed by: Mike Purdy M.D. 03/19/2023 12:02 PM
--- NOTE | 2023-03-19 13:27 | Orthopedic Consultation ---
Date of Consultation March 19, 2023 Assessment & Plan (1) Dislocation of right hip: Plan 63-year-old female right hip periprosthetic dislocation, resolved -Abduction pillow and posterior hip precautions -Emergency physician will be admitting to medical service -Pain control -PT/OT -Reduction performed in the emergency department. See procedure note below -Orthopedics will follow while patient is inpatient Procedure note Procedural sedation was provided by emergency department physician. Once adequately sedated, the right hip was then reduced with a combination of longitudinal and lateral traction. Patient appeared to tolerated procedure well without immediate complication. History of Present Illness Reason for Consultation: Right hip pain History of Present Illness Patient is a 63-year-old female presenting with right hip pain. Patient recently underwent right Robb hip arthroplasty 02/15/2023. Per ED report, patient experienced a relatively atraumatic right hip dislocation this morning. Reduction was attempted by emergency department resulting in incomplete reduction. Orthopedics was consulted for further reduction attempts. Allergies Allergy/AdvReac Type Severity Reaction Status Date / Time Penicillins Allergy Severe ANAPHYLAXIS Verified 03/15/23 14:57 oxycodone [From Percodan] Allergy Unknown Unknown Verified 03/15/23 14:57 ketorolac [From Toradol] AdvReac Severe Breathing Verified 03/15/23 14:57 difficulty hydrocodone AdvReac Intermediate Nausea Verified 03/15/23 14:57 [From Lorcet (hydrocodone)] rifaximin [From Xifaxan] AdvReac Intermediate Dizzy, Verified 03/15/23 14:57 Fell down ursodiol AdvReac Intermediate Dizzy, Verified 03/15/23 14:57 Fell down Home Medications Medication Instructions Recorded Confirmed Type Acidophilus Lactobacillus 2 cap PO HS 02/14/23 03/15/23 History acetaminophen 300 mg-codeine 30 mg 1 tab PO BID PRN Pain 02/14/23 03/15/23 History tablet acetaminophen 325 mg tablet 350 mg PO QID PRN Pain 02/14/23 03/15/23 History (Tylenol) ascorbic acid (vitamin C) 500 mg 500 mg PO BID 02/14/23 03/15/23 History tablet (Vitamin C) uzgkzvmtha-jbelhhidyqgam-uyrzbsjt 1 tab PO Q6H PRN Migraine Headache 02/14/23 0 03/15/23 History 50 mg-325 mg-40 mg tablet calcium carbonate 600 mg-vitamin 1 cap PO BID 02/14/23 03/15/23 History D3 5 mcg (200 unit) capsule (Calcium 600 + D(3)) hydrochlorothiazide 25 mg tablet 12.5 mg PO DAILY 02/14/23 03/15/23 History hydrocortisone 0.25 % topical cream 1 applic topical DIRECTED 02/14/23 03/15/23 History loperamide 2 mg capsule 2 mg PO Q8 PRN Diarrhea 02/14/23 03/15/23 History loratadine 10 mg tablet 10 mg PO DAILY PRN ALLERGIES 02/14/23 03/15/23 History magnesium oxide 400 mg PO BID 02/14/23 03/15/23 History metoprolol tartrate 100 mg tablet 100 mg PO BID 02/14/23 03/15/23 History cflujbxluwzg-crqrcyzt-icozrf tablet 1 tab PO DAILY 02/14/23 03/15/23 History ondansetron HCl 4 mg tablet 4 mg PO Q6H PRN Nausea 02/14/23 03/15/23 History polysaccharide iron complex 150 mg 150 mg PO DAILY 02/14/23 03/15/23 History iron capsule (Ferrex) potassium chloride 10 mEq 10 meq PO BID 02/14/23 03/15/23 History capsule,extended release sodium di- and 1 tab PO QID 02/14/23 03/15/23 History monophosphate-potassium phos monobasic 250 mg tablet (Z-Loiz-Lwdgviv) vancomycin 125 mg capsule 125 mg PO QAM 02/14/23 03/15/23 History vitamin B complex 1 tab PO DAILY 02/14/23 03/15/23 History apixaban 2.5 mg tablet (Eliquis) 2.5 mg PO BID #0 tabs 02/18/23 03/15/23 Rx ciprofloxacin HCl 0.3 % eye 1 applic ophthalmic (eye) TID #0 02/18/23 03/15/23 Rx ointment (Ciloxan) grams dextroamphetamine-amphetamine 10 1 tab PO TID 02/18/23 03/15/23 History mg tablet guaifenesin 600 mg tablet, 600 mg PO Q12 PRN congestion #0 02/18/23 03/15/23 Rx extended release 12 hr (Mucinex) tabs tramadol 50 mg tablet 50 mg PO Q6H PRN #0 tabs 02/18/23 03/15/23 Rx umeclidinium 62.5 mcg-vilanterol 1 inh inhalation DAILY 03/15/23 03/15/23 History 25 mcg/actuation powdr for inhalation (Anoro Ellipta) L.acidop,casei,lactis,rham-B.lact,marva 2 cap PO DAILY #60 caps 03/18/23 Rx 625 mg (10 billion cell) capsule (Advanced Probiotic) ciprofloxacin HCl 250 mg tablet 250 mg PO BID #6 tabs 03/18/23 Rx Patient History Medical History Bipolar disorder Cirrhosis Depression Emphysema of lung Based on imaging Failure of outpatient treatment History of CVA (cerebrovascular accident) Osteoporosis Pulmonary nodule 9 mm RML subsolid nodule CT chest 02/29/20. F/U CT recommended 3-6 months Schizophrenia Vitamin D deficiency Surgical History History of appendectomy History of shoulder surgery History of total hip replacement femur fracture one month later with repair, both in 2007 Status post open reduction and internal fixation (ORIF) of fracture Family History Father Myocardial infarction Mother Colorectal cancer Social History Smoking Status: Never smoker Tobacco Type: Cigarettes Cigarettes Per Day: 18; Second Hand Exposure: No; Hx Alcohol Use: No Hx Substance Use: No Preferred Language: Malay Communication Ability: Effective Communication Ability Comment: pt [facility] Human Resources Director Required: No Beliefs That Will Affect Care: None marital status: Current Living Situation: Spouse Current Living Situation Comment: Lives with Feels Safe at Home: Yes Assistive Devices: Bedside Commode, Cane, Walker and Wheelchair Review of Systems Review of Systems: Unobtainable due to cognitive status Physical Exam Physical Exam: Exam limited due to procedural sedation prior to orthopedic consultation Surgical incision with minimal erythema right hip, right lower extremity warm well perfused, compartments are soft and compressible, approximately 3 to 4 cm longer than compared to left lower extremity. Results & Data Vital Signs (Past 12 Hours) Vital Signs Temp Pulse Resp BP BP Pulse Ox O2 Del Method 03/19/23 12:50 61 8 L 100 03/19/23 12:45 67 18 99 03/19/23 12:45 138/68 03/19/23 12:43 134/74 03/19/23 12:43 66 23 99 03/19/23 12:41 123/61 03/19/23 12:41 58 L 13 03/19/23 12:40 56 L 35 H 03/19/23 12:35 56 L 16 03/19/23 12:35 123/62 03/19/23 12:30 56 L 19 03/19/23 12:30 119/54 L 03/19/23 12:25 56 L 17 99 03/19/23 12:25 124/57 L 03/19/23 12:20 57 L 21 99 03/19/23 12:20 124/61 03/19/23 12:15 58 L 16 100 03/19/23 12:15 131/59 L 03/19/23 12:10 57 L 18 100 03/19/23 12:10 121/57 L 95 03/19/23 12:05 53 L 29 H 99 03/19/23 12:05 125/60 95 03/19/23 12:00 59 L 14 97 03/19/23 12:00 123/54 L 95 03/19/23 11:55 58 L 14 97 03/19/23 11:55 116/58 L 95 03/19/23 11:50 59 L 11 L 97 03/19/23 11:50 123/62 95 03/19/23 11:45 63 14 98 03/19/23 11:45 127/63 95 03/19/23 11:40 64 11 L 92 03/19/23 11:35 60 22 95 03/19/23 11:30 66 28 H 03/19/23 11:25 67 12 91 03/19/23 11:23 112/55 L 98 03/19/23 11:23 66 29 H 97 03/19/23 11:21 89/38 L 92 03/19/23 11:21 66 17 98 03/19/23 11:20 65 23 98 03/19/23 11:15 66 14 97 03/19/23 11:15 102/42 L 95 03/19/23 11:12 56 L 15 91 03/19/23 11:12 88/36 L 03/19/23 11:10 64 26 H 95 03/19/23 11:06 106/54 L 03/19/23 11:06 65 19 96 03/19/23 11:05 64 14 94 03/19/23 11:00 65 17 95 03/19/23 10:55 71 17 95 03/19/23 10:50 72 23 94 03/19/23 12:05 57 L 16 112/85 95 Nasal Cannula 03/19/23 11:05 66 03/19/23 10:50 36.8 C 72 16 107/64 99 Room Air O2 Flow Rate 03/19/23 12:50 03/19/23 12:45 03/19/23 12:45 03/19/23 12:43 03/19/23 12:43 03/19/23 12:41 03/19/23 12:41 03/19/23 12:40 03/19/23 12:35 03/19/23 12:35 03/19/23 12:30 03/19/23 12:30 03/19/23 12:25 03/19/23 12:25 03/19/23 12:20 03/19/23 12:20 03/19/23 12:15 03/19/23 12:15 03/19/23 12:10 03/19/23 12:10 03/19/23 12:05 03/19/23 12:05 03/19/23 12:00 03/19/23 12:00 03/19/23 11:55 03/19/23 11:55 03/19/23 11:50 03/19/23 11:50 03/19/23 11:45 03/19/23 11:45 03/19/23 11:40 03/19/23 11:35 03/19/23 11:30 03/19/23 11:25 03/19/23 11:23 03/19/23 11:23 03/19/23 11:21 03/19/23 11:21 03/19/23 11:20 03/19/23 11:15 03/19/23 11:15 03/19/23 11:12 03/19/23 11:12 03/19/23 11:10 03/19/23 11:06 03/19/23 11:06 03/19/23 11:05 03/19/23 11:00 03/19/23 10:55 03/19/23 10:50 03/19/23 12:05 4 03/19/23 11:05 03/19/23 10:50 Diagnostic Findings AP pelvis x-rays performed in emergency department demonstrate partially reduced right bipolar prosthetic. Post reduction AP pelvis x-ray demonstrates completely reduced right bipolar hemiarthroplasty without any evidence of fracture
[2023-03-19] MEDS ORDERED: PROPOFOL IV EMULSION 10 MG/ML 20 ML VIAL IV ONE (13:30)
[2023-03-19] MEDS ORDERED: KETAMINE HCL INJ 50 MG/ML 10 ML VIAL IV ONE (13:30)
--- NOTE | 2023-03-19 13:41 | XRay Report ---
XR pelvis 1-2V routine HISTORY: 63 years-old Female Post right hip reduction right hip arthroplasty COMPARISON: Pelvis radiograph of same day and also 03/04/2023, 03/07/2023. TECHNIQUE: AP view of the pelvis FINDINGS: Bilateral hip arthroplasties. Status post reduction of the right femoral head component. There is a 4 mm separation between the acetabular cortex and the acetabular cup which has improved from prior, re cently 9 mm. On the study from 03/07/2023 there is less than 1 m of medial separation. No acute right- sided femoral fracture. Left pelvic ring and left femoral periprosthetic fracture is again noted. IMPRESSION: 1. Status post reduction of the right hip arthroplasty with improved alignment. There is a 4 mm separ ation between the medial acetabular cortex and the acetabular cup which has improved from exam of 11: 42 AM however demonstrates a change compared to 03/07/2023. 2. Left pelvic ring and left proximal femoral periprosthetic fractures again noted. 3. No acute right femoral fracture identified. ACT 112: Negative or not required by law. The above report was generated using voice recognition software. It may contain grammatical, syntax o r spelling errors. Electronically signed by: Mike Purdy M.D. 03/19/2023 1:39 PM
--- NOTE | 2023-03-19 14:14 | Emergency Department Note ---
Impression & Plan Dislocation of right hip ED Provider Note INFORMANT: Patient ED PROVIDER(S): Carl Luna DO CHIEF COMPLAINT: Right hip pain PLAN: Disposition: Admission Outpatient prescription management: none Discussion with: I spoke with the hospitalist, who will see the patient for admission/observation and further evaluation and consultation. Dr. GarciaFrom orthopedics. He also evaluated the patient in the emergency room MEDICAL DECISION MAKING: This is a 63-year-old female who presents to the ED with a chief complaint of right hip pain. The patient states that she was getting up out of her couch when she suddenly developed the right hip pain. She states that she has bilateral hip arthroplasties. Per the orthopedics note, this right-sided one was done on 15 February of this year. The patient has no other complaints. Denies any other trauma. Her physical exam reveals an internally rotated and shortened right leg. Distal pulses are intact. She is having significant mount of discomfort with any minimal movement. After x-rays were performed, the patient was given IV morphine for her pain. This caused a fair bit of sedation. I did attempt to reduce the dislocation with the morphine alone but this did not work. Conscious sedation was performed with some IV ketamine in addition to the morphine that was already given. 20 mg of IV ketamine was provided. Dr. Moreno was able to relocate the hip although repositioning was not optimal. Dr. Garcia from orthopedics evaluated the patient and attempted reduction as well. Although the positioning seems to be improved, it does not appear to be completely in place according to the radiologist. After sedation, the patient is woken and she is still having a significant mount of pain. She will need to stay in the hospital for further evaluation and care. Because of her comorbidities, orthopedics recommends that she be admitted by medicine service and they will consult she was treated here with IV morphine. I did speak with the hospitalist who will see the patient for further evaluation and care. The patient is neurovascular intact after hip reduction. Triage Nursing notes reviewed. Vital Signs: reviewed Prior /Outside records reviewed: Orthopedic note from 02/15/2023 shows hip arthroplasty performed Differential diagnosis: Fracture, dislocation, soft tissue injury, neurovascular injury Diagnostics, as interpreted by me: 12 lead ECG: [none] Cardiac Monitoring ordered: Sinus rhythm in the 70s and 80s Medical decision rules: [none] Imaging studies: X-ray of the right hip: Hip dislocation, x-ray of the right hip #2: Reduced but not in optimal positioning Procedures: none. Critical care: none. HPI: See MDM above. PAST MEDICAL HISTORY: See Below PAST SURGICAL HISTORY: See Below SOCIAL HISTORY: See Below HOME MEDICATIONS: See Below ALLERGIES: See Below VITALS: See Below PHYSICAL EXAMINATION: See MDM for positive findings otherwise unremarkable. CONSTITUTIONAL/VITAL SIGNS: Reviewed GENERAL:done as appropriate INTEGUMENTARY: done as appropriate HEAD: done as appropriate EYES: done as appropriate RESPIRATORY: done as appropriate CARDIOVASCULAR:done as appropriate GI/ABDOMEN:done as appropriate EXTREMITIES: done as appropriate NEUROLOGICAL: done as appropriate PSYCHIATRIC:done as appropriate MUSCULOSKELETAL:done as appropriate TRIAGE NURSING DOCUMENTATION REVIEWED. Past Med/Surg History Medical History Bipolar disorder Cirrhosis Depression Emphysema of lung Based on imaging Failure of outpatient treatment History of CVA (cerebrovascular accident) Osteoporosis Pulmonary nodule 9 mm RML subsolid nodule CT chest 02/29/20. F/U CT recommended 3-6 months Schizophrenia Vitamin D deficiency Surgical History History of appendectomy History of shoulder surgery History of total hip replacement femur fracture one month later with repair, both in 2007 Status post open reduction and internal fixation (ORIF) of fracture Family History Father Myocardial infarction Mother Colorectal cancer Social History Smoking Status: Never smoker Tobacco Type: Cigarettes Cigarettes Per Day: 18; Second Hand Exposure: No; Hx Alcohol Use: No Hx Substance Use: No Preferred Language: Cameroonian Communication Ability: Effective Communication Ability Comment: pt [facility] 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 Required: No Beliefs That Will Affect Care: None marital status: Current Living Situation: Spouse Current Living Situation Comment: Lives with Feels Safe at Home: Yes Assistive Devices: Bedside Commode, Cane, Walker and Wheelchair Allergies Allergies Allergy/AdvReac Type Severity Reaction Status Date / Time Penicillins Allergy Severe ANAPHYLAXIS Verified 03/15/23 14:57 oxycodone [From Percodan] Allergy Unknown Unknown Verified 03/15/23 14:57 ketorolac [From Toradol] AdvReac Severe Breathing Verified 03/15/23 14:57 difficulty hydrocodone AdvReac Intermediate Nausea Verified 03/15/23 14:57 [From Lorcet (hydrocodone)] rifaximin [From Xifaxan] AdvReac Intermediate Dizzy, Verified 03/15/23 14:57 Fell down ursodiol AdvReac Intermediate Dizzy, Verified 03/15/23 14:57 Fell down Home Meds Home Medications Medication Instructions Recorded Confirmed Acidophilus Lactobacillus 2 cap PO HS 02/14/23 03/15/23 acetaminophen 300 mg-codeine 30 mg 1 tab PO BID PRN Pain 02/14/23 03/15/23 tablet acetaminophen 325 mg tablet 350 mg PO QID PRN Pain 02/14/23 03/15/23 (Tylenol) ascorbic acid (vitamin C) 500 mg 500 mg PO BID 02/14/23 03/15/23 tablet (Vitamin C) yktrcoefre-jfuwwkxwbzpzv-gwrjwmoc 1 tab PO Q6H PRN Migraine Headache 02/14/23 03/15/23 50 mg-325 mg-40 mg tablet calcium carbonate 600 mg-vitamin 1 cap PO BID 02/14/23 03/15/23 D3 5 mcg (200 unit) capsule (Calcium 600 + D(3)) hydrochlorothiazide 25 mg tablet 12.5 mg PO DAILY 02/14/23 03/15/23 hydrocortisone 0.25 % topical cream 1 applic topical DIRECTED 02/14/23 03/15/23 loperamide 2 mg capsule 2 mg PO Q8 PRN Diarrhea 02/14/23 03/15/23 loratadine 10 mg tablet 10 mg PO DAILY PRN ALLERGIES 02/14/23 03/15/23 magnesium oxide 400 mg PO BID 02/14/23 03/15/23 metoprolol tartrate 100 mg tablet 100 mg PO BID 02/14/23 03/15/23 kucemisouhxl-qzphmzew-ifhxnd tablet 1 tab PO DAILY 02/14/23 03/15/23 ondansetron HCl 4 mg tablet 4 mg PO Q6H PRN Nausea 02/14/23 03/15/23 polysaccharide iron complex 150 mg 150 mg PO DAILY 02/14/23 03/15/23 iron capsule (Ferrex) potassium chloride 10 mEq 10 meq PO BID 02/14/23 03/15/23 capsule,extended release sodium di- and 1 tab PO QID 02/14/23 03/15/23 monophosphate-potassium phos monobasic 250 mg tablet (I-Nccw-Wmseeui) vancomycin 125 mg capsule 125 mg PO QAM 02/14/23 03/15/23 vitamin B complex 1 tab PO DAILY 02/14/23 03/15/23 dextroamphetamine-amphetamine 10 1 tab PO TID 02/18/23 03/15/23 mg tablet umeclidinium 62.5 mcg-vilanterol 1 inh inhalation DAILY 03/15/23 03/15/23 25 mcg/actuation powdr for inhalation (Anoro Ellipta) Previous Rx's Medication Instructions Recorded apixaban 2.5 mg tablet (Eliquis) 2.5 mg PO BID #0 tabs 02/18/23 ciprofloxacin HCl 0.3 % eye 1 applic ophthalmic (eye) TID #0 02/18/23 ointment (Ciloxan) grams guaifenesin 600 mg tablet, 600 mg PO Q12 PRN congestion #0 02/18/23 extended release 12 hr (Mucinex) tabs tramadol 50 mg tablet 50 mg PO Q6H PRN #0 tabs 02/18/23 L.acidop,casei,lactis,rham-B.lact,marva 2 cap PO DAILY #60 caps 03/18/23 625 mg (10 billion cell) capsule (Advanced Probiotic) ciprofloxacin HCl 250 mg tablet 250 mg PO BID #6 tabs 03/18/23 Results & Data (ED) Vital Signs Vital Signs - 24 hr 03/19/23 10:50 03/19/23 11:05 03/19/23 12:05 Temperature 36.8 C Temperature Source Oral Pulse Rate 72 66 57 L Pulse Rate from SpO2 Sensor Pulse Rhythm Regular Pulse Strength Normal Respiratory Rate 16 16 Respiratory Effort / Characteristics Non-Labored Spontaneous Non-Labored Spontaneous Respiratory Depth Normal Normal Respiratory Pattern Regular Regular Blood Pressure 107/64 Blood Pressure [Right Arm] 112/85 Blood Pressure Mean 78 Blood Pressure Position Sitting Pulse Oximetry 99 95 Oxygen Delivery Method Room Air Nasal Cannula Oxygen Flow Rate 4 Sepsis Recent Fever Within 48 Hours No Sepsis New/Unexplained Change in Mental Status No Sepsis Action Taken by Nursing No Action Required End-Tidal CO2 End Tidal CO2 (18-54mmHg) 24 03/19/23 10:50 03/19/23 10:55 03/19/23 11:00 Temperature Temperature Source Pulse Rate 72 71 65 Pulse Rate from SpO2 Sensor 72 Pulse Rhythm Pulse Strength Respiratory Rate 23 17 17 Respiratory Effort / Characteristics Respiratory Depth Respiratory Pattern Blood Pressure Blood Pressure [Right Arm] Blood Pressure Mean Blood Pressure Position Pulse Oximetry 94 95 95 Oxygen Delivery Method Oxygen Flow Rate Sepsis Recent Fever Within 48 Hours Sepsis New/Unexplained Change in Mental Status Sepsis Action Taken by Nursing End-Tidal CO2 End Tidal CO2 (18-54mmHg) 03/19/23 11:05 03/19/23 11:06 03/19/23 11:06 Temperature Temperature Source Pulse Rate 64 65 Pulse Rate from SpO2 Sensor Pulse Rhythm Pulse Strength Respiratory Rate 14 19 Respiratory Effort / Characteristics Respiratory Depth Respiratory Pattern Blood Pressure 106/54 L Blood Pressure [Right Arm] Blood Pressure Mean 71 Blood Pressure Position Pulse Oximetry 94 96 Oxygen Delivery Method Oxygen Flow Rate Sepsis Recent Fever Within 48 Hours Sepsis New/Unexplained Change in Mental Status Sepsis Action Taken by Nursing End-Tidal CO2 End Tidal CO2 (18-54mmHg) 03/19/23 11:10 03/19/23 11:12 03/19/23 11:12 Temperature Temperature Source Pulse Rate 64 56 L Pulse Rate from SpO2 Sensor 64 65 Pulse Rhythm Pulse Strength Respiratory Rate 26 H 15 Respiratory Effort / Characteristics Respiratory Depth Respiratory Pattern Blood Pressure 88/36 L Blood Pressure [Right Arm] Blood Pressure Mean 53 Blood Pressure Position Pulse Oximetry 95 91 Oxygen Delivery Method Oxygen Flow Rate Sepsis Recent Fever Within 48 Hours Sepsis New/Unexplained Change in Mental Status Sepsis Action Taken by Nursing End-Tidal CO2 End Tidal CO2 (18-54mmHg) 03/19/23 11:15 03/19/23 11:15 03/19/23 11:20 Temperature Temperature Source Pulse Rate 66 65 Pulse Rate from SpO2 Sensor 65 65 Pulse Rhythm Pulse Strength Respiratory Rate 14 23 Respiratory Effort / Characteristics Respiratory Depth Respiratory Pattern Blood Pressure 102/42 L Blood Pressure [Right Arm] Blood Pressure Mean 62 Blood Pressure Position Pulse Oximetry 95 97 98 Oxygen Delivery Method Oxygen Flow Rate Sepsis Recent Fever Within 48 Hours Sepsis New/Unexplained Change in Mental Status Sepsis Action Taken by Nursing End-Tidal CO2 End Tidal CO2 (18-54mmHg) 03/19/23 11:21 03/19/23 11:21 03/19/23 11:23 Temperature Temperature Source Pulse Rate 66 66 Pulse Rate from SpO2 Sensor 66 66 Pulse Rhythm Pulse Strength Respiratory Rate 17 29 H Respiratory Effort / Characteristics Respiratory Depth Respiratory Pattern Blood Pressure 89/38 L Blood Pressure [Right Arm] Blood Pressure Mean 55 Blood Pressure Position Pulse Oximetry 98 92 97 Oxygen Delivery Method Oxygen Flow Rate Sepsis Recent Fever Within 48 Hours Sepsis New/Unexplained Change in Mental Status Sepsis Action Taken by Nursing End-Tidal CO2 End Tidal CO2 (18-54mmHg) 03/19/23 11:23 03/19/23 11:25 03/19/23 11:30 Temperature Temperature Source Pulse Rate 67 66 Pulse Rate from SpO2 Sensor 67 Pulse Rhythm Pulse Strength Respiratory Rate 12 28 H Respiratory Effort / Characteristics Respiratory Depth Respiratory Pattern Blood Pressure 112/55 L Blood Pressure [Right Arm] Blood Pressure Mean 74 Blood Pressure Position Pulse Oximetry 98 91 Oxygen Delivery Method Oxygen Flow Rate Sepsis Recent Fever Within 48 Hours Sepsis New/Unexplained Change in Mental Status Sepsis Action Taken by Nursing End-Tidal CO2 25 End Tidal CO2 (18-54mmHg) 03/19/23 11:35 03/19/23 11:40 03/19/23 11:45 Temperature Temperature Source Pulse Rate 60 64 Pulse Rate from SpO2 Sensor Pulse Rhythm Pulse Strength Respiratory Rate 22 11 L Respiratory Effort / Characteristics Respiratory Depth Respiratory Pattern Blood Pressure 127/63 Blood Pressure [Right Arm] Blood Pressure Mean 84 Blood Pressure Position Pulse Oximetry 95 92 95 Oxygen Delivery Method Oxygen Flow Rate Sepsis Recent Fever Within 48 Hours Sepsis New/Unexplained Change in Mental Status Sepsis Action Taken by Nursing End-Tidal CO2 26 24 End Tidal CO2 (18-54mmHg) 03/19/23 11:45 03/19/23 11:50 03/19/23 11:50 Temperature Temperature Source Pulse Rate 63 59 L Pulse Rate from SpO2 Sensor 63 59 L Pulse Rhythm Pulse Strength Respiratory Rate 14 11 L Respiratory Effort / Characteristics Respiratory Depth Respiratory Pattern Blood Pressure 123/62 Blood Pressure [Right Arm] Blood Pressure Mean 82 Blood Pressure Position Pulse Oximetry 98 95 97 Oxygen Delivery Method Oxygen Flow Rate Sepsis Recent Fever Within 48 Hours Sepsis New/Unexplained Change in Mental Status Sepsis Action Taken by Nursing End-Tidal CO2 24 23 End Tidal CO2 (18-54mmHg) 03/19/23 11:55 03/19/23 11:55 03/19/23 12:00 Temperature Temperature Source Pulse Rate 58 L Pulse Rate from SpO2 Sensor 57 L Pulse Rhythm Pulse Strength Respiratory Rate 14 Respiratory Effort / Characteristics Respiratory Depth Respiratory Pattern Blood Pressure 116/58 L 123/54 L Blood Pressure [Right Arm] Blood Pressure Mean 77 77 Blood Pressure Position Pulse Oximetry 95 97 95 Oxygen Delivery Method Oxygen Flow Rate Sepsis Recent Fever Within 48 Hours Sepsis New/Unexplained Change in Mental Status Sepsis Action Taken by Nursing End-Tidal CO2 15 End Tidal CO2 (18-54mmHg) 03/19/23 12:00 03/19/23 12:05 03/19/23 12:05 Temperature Temperature Source Pulse Rate 59 L 53 L Pulse Rate from SpO2 Sensor 59 L 53 L Pulse Rhythm Pulse Strength Respiratory Rate 14 29 H Respiratory Effort / Characteristics Respiratory Depth Respiratory Pattern Blood Pressure 125/60 Blood Pressure [Right Arm] Blood Pressure Mean 81 Blood Pressure Position Pulse Oximetry 97 95 99 Oxygen Delivery Method Oxygen Flow Rate Sepsis Recent Fever Within 48 Hours Sepsis New/Unexplained Change in Mental Status Sepsis Action Taken by Nursing End-Tidal CO2 13 19 End Tidal CO2 (18-54mmHg) 03/19/23 12:10 03/19/23 12:10 03/19/23 12:15 Temperature Temperature Source Pulse Rate 57 L Pulse Rate from SpO2 Sensor 56 L Pulse Rhythm Pulse Strength Respiratory Rate 18 Respiratory Effort / Characteristics Respiratory Depth Respiratory Pattern Blood Pressure 121/57 L 131/59 L Blood Pressure [Right Arm] Blood Pressure Mean 78 83 Blood Pressure Position Pulse Oximetry 95 100 Oxygen Delivery Method Oxygen Flow Rate Sepsis Recent Fever Within 48 Hours Sepsis New/Unexplained Change in Mental Status Sepsis Action Taken by Nursing End-Tidal CO2 25 End Tidal CO2 (18-54mmHg) 03/19/23 12:15 03/19/23 12:20 03/19/23 12:20 Temperature Temperature Source Pulse Rate 58 L 57 L Pulse Rate from SpO2 Sensor 57 L 56 L Pulse Rhythm Pulse Strength Respiratory Rate 16 21 Respiratory Effort / Characteristics Respiratory Depth Respiratory Pattern Blood Pressure 124/61 Blood Pressure [Right Arm] Blood Pressure Mean 82 Blood Pressure Position Pulse Oximetry 100 99 Oxygen Delivery Method Oxygen Flow Rate Sepsis Recent Fever Within 48 Hours Sepsis New/Unexplained Change in Mental Status Sepsis Action Taken by Nursing End-Tidal CO2 8 22 End Tidal CO2 (18-54mmHg) 03/19/23 12:25 03/19/23 12:25 03/19/23 12:30 Temperature Temperature Source Pulse Rate 56 L Pulse Rate from SpO2 Sensor 57 L Pulse Rhythm Pulse Strength Respiratory Rate 17 Respiratory Effort / Characteristics Respiratory Depth Respiratory Pattern Blood Pressure 124/57 L 119/54 L Blood Pressure [Right Arm] Blood Pressure Mean 79 75 Blood Pressure Position Pulse Oximetry 99 Oxygen Delivery Method Oxygen Flow Rate Sepsis Recent Fever Within 48 Hours Sepsis New/Unexplained Change in Mental Status Sepsis Action Taken by Nursing End-Tidal CO2 19 End Tidal CO2 (18-54mmHg) 03/19/23 12:30 03/19/23 12:35 03/19/23 12:35 Temperature Temperature Source Pulse Rate 56 L 56 L Pulse Rate from SpO2 Sensor Pulse Rhythm Pulse Strength Respiratory Rate 19 16 Respiratory Effort / Characteristics Respiratory Depth Respiratory Pattern Blood Pressure 123/62 Blood Pressure [Right Arm] Blood Pressure Mean 82 Blood Pressure Position Pulse Oximetry Oxygen Delivery Method Oxygen Flow Rate Sepsis Recent Fever Within 48 Hours Sepsis New/Unexplained Change in Mental Status Sepsis Action Taken by Nursing End-Tidal CO2 22 23 End Tidal CO2 (18-54mmHg) 03/19/23 12:40 03/19/23 12:41 03/19/23 12:41 Temperature Temperature Source Pulse Rate 56 L 58 L Pulse Rate from SpO2 Sensor Pulse Rhythm Pulse Strength Respiratory Rate 35 H 13 Respiratory Effort / Characteristics Respiratory Depth Respiratory Pattern Blood Pressure 123/61 Blood Pressure [Right Arm] Blood Pressure Mean 81 Blood Pressure Position Pulse Oximetry Oxygen Delivery Method Oxygen Flow Rate Sepsis Recent Fever Within 48 Hours Sepsis New/Unexplained Change in Mental Status Sepsis Action Taken by Nursing End-Tidal CO2 10 19 End Tidal CO2 (18-54mmHg) 03/19/23 12:43 03/19/23 12:43 03/19/23 12:45 Temperature Temperature Source Pulse Rate 66 Pulse Rate from SpO2 Sensor 66 Pulse Rhythm Pulse Strength Respiratory Rate 23 Respiratory Effort / Characteristics Respiratory Depth Respiratory Pattern Blood Pressure 134/74 138/68 Blood Pressure [Right Arm] Blood Pressure Mean 94 91 Blood Pressure Position Pulse Oximetry 99 Oxygen Delivery Method Oxygen Flow Rate Sepsis Recent Fever Within 48 Hours Sepsis New/Unexplained Change in Mental Status Sepsis Action Taken by Nursing End-Tidal CO2 8 End Tidal CO2 (18-54mmHg) 03/19/23 12:45 03/19/23 12:50 03/19/23 11:45 Temperature Temperature Source Pulse Rate 67 61 61 Pulse Rate from SpO2 Sensor 66 61 Pulse Rhythm Pulse Strength Respiratory Rate 18 8 L 12 Respiratory Effort / Characteristics Non-Labored Respiratory Depth Normal Respiratory Pattern Regular Blood Pressure Blood Pressure [Right Arm] 127/63 Blood Pressure Mean Blood Pressure Position Pulse Oximetry 99 100 96 Oxygen Delivery Method Oxygen Flow Rate Sepsis Recent Fever Within 48 Hours Sepsis New/Unexplained Change in Mental Status Sepsis Action Taken by Nursing End-Tidal CO2 21 16 End Tidal CO2 (18-54mmHg) 25 03/19/23 11:50 03/19/23 11:55 03/19/23 12:00 Temperature Temperature Source Pulse Rate 59 L 57 L 59 L Pulse Rate from SpO2 Sensor Pulse Rhythm Pulse Strength Respiratory Rate 12 16 16 Respiratory Effort / Characteristics Non-Labored Non-Labored Non-Labored Respiratory Depth Normal Normal Normal Respiratory Pattern Regular Regular Regular Blood Pressure Blood Pressure [Right Arm] 123/62 116/58 L 123/54 L Blood Pressure Mean Blood Pressure Position Pulse Oximetry 96 95 95 Oxygen Delivery Method Oxygen Flow Rate 4 4 4 Sepsis Recent Fever Within 48 Hours Sepsis New/Unexplained Change in Mental Status Sepsis Action Taken by Nursing End-Tidal CO2 End Tidal CO2 (18-54mmHg) 19 22 27 03/19/23 12:45 03/19/23 12:50 03/19/23 12:55 Temperature Temperature Source Pulse Rate 65 61 59 L Pulse Rate from SpO2 Sensor Pulse Rhythm Pulse Strength Respiratory Rate 16 16 16 Respiratory Effort / Characteristics Non-Labored Spontaneous Non-Labored Spontaneous Non-Labored Spontaneous Respiratory Depth Normal Normal Normal Respiratory Pattern Blood Pressure Blood Pressure [Right Arm] 134/74 Blood Pressure Mean Blood Pressure Position Pulse Oximetry 100 100 100 Oxygen Delivery Method Nasal Cannula Nasal Cannula Nasal Cannula Oxygen Flow Rate 4 4 4 Sepsis Recent Fever Within 48 Hours Sepsis New/Unexplained Change in Mental Status Sepsis Action Taken by Nursing End-Tidal CO2 End Tidal CO2 (18-54mmHg) 20 21 03/19/23 13:00 Temperature Temperature Source Pulse Rate 60 Pulse Rate from SpO2 Sensor Pulse Rhythm Pulse Strength Respiratory Rate 16 Respiratory Effort / Characteristics Non-Labored Spontaneous Respiratory Depth Normal Respiratory Pattern Blood Pressure Blood Pressure [Right Arm] Blood Pressure Mean Blood Pressure Position Pulse Oximetry 100 Oxygen Delivery Method Nasal Cannula Oxygen Flow Rate 4 Sepsis Recent Fever Within 48 Hours Sepsis New/Unexplained Change in Mental Status Sepsis Action Taken by Nursing End-Tidal CO2 End Tidal CO2 (18-54mmHg) 21 Administered Medications Sodium Chloride (Nss) 500 mls @ 125 mls/hr IV .Q4H MARIA E Stop: 03/19/23 15:29 Last Admin: 03/19/23 11:25 Dose: 125 mls/hr Documented By: IBETH Discontinued Medications Morphine Sulfate (Morphine Sulfate 4 Mg/Ml 1 Ml Carp\Vial) 4 mg IV NOW STA Stop: 03/19/23 10:50 Last Admin: 03/19/23 11:12 Dose: 4 mg Documented By: IBETH Ondansetron HCl (Ondansetron Inj 2 Mg/Ml 2 Ml Vial) 4 mg IV NOW STA Stop: 03/19/23 11:17 Last Admin: 03/19/23 11:25 Dose: 4 mg Documented By: IBETH Imaging Data Radiologist's Impression: Pelvis X-Ray 03/19/23 10:49 XR pelvis 1-2V routine HISTORY: 63 years-old Female hip dislocation acute right hip pain COMPARISON: Pelvis radiograph 03/07/2023, CT left hip and femur 4 TECHNIQUE: AP view the pelvis FINDINGS: Bilateral hip total joint arthroplasties. There is superior dislocation of the right femoral head prosthesis by approximately 6.9 cm. Partially imaged ORIF hardware of the left femoral head cysts again noted with proximal cerclage wires. The 2 most proximal cannulated screws are again noted to be fractured. Likely acute periprosthetic fracture of the left proximal femoral diaphysis is again noted with adjacent cerclage wires. Metallic surgical clip device is noted inferior to the left hip which may be external to the patient. Acute appearing left inferior pubic ramus fracture again noted. IMPRESSION: 1. Bilateral hip total joint arthroplasties with superiorly dislocated right femoral head prosthesis. No evidence of acute right hip fracture. 2. ORIF changes of the left femur with fracture cannulated screws again noted. 3. Periprosthetic fracture of the left proximal femur again noted with subtle acute nondisplaced left pelvic ring fracture, unchanged from prior CT. ACT 112: Negative or not required by law. The above report was generated using voice recognition software. It may contain grammatical, syntax or spelling errors. Electronically signed by: Mike Purdy M.D. 03/19/2023 11:09 AM Pelvis X-Ray 03/19/23 11:49 XR pelvis 1-2V routine HISTORY: 63 years-old Female rt hip dislocation status post reduction of the right hip arthroplasty COMPARISON: Pelvis radiograph of same day at 10:47 AM TECHNIQUE: AP view of the pelvis FINDINGS: Bilateral hip arthroplasties. Status post reduction of the right femoral head component which is subluxed laterally. No acute right-sided femoral fracture. Left pelvic ring and left femoral periprosthetic fracture is again noted. IMPRESSION: 1. Status post reduction of the right hip arthroplasty with mild lateral subluxation of less than 1 cm. 2. Left pelvic ring and left proximal femoral periprosthetic fractures again noted. 3. No acute right femoral fracture identified. ACT 112: Negative or not required by law. The above report was generated using voice recognition software. It may contain grammatical, syntax or spelling errors. Electronically signed by: Mike Purdy M.D. 03/19/2023 12:02 PM Pelvis X-Ray 03/19/23 12:49 XR pelvis 1-2V routine HISTORY: 63 years-old Female Post right hip reduction right hip arthroplasty COMPARISON: Pelvis radiograph of same day and also 03/04/2023, 03/07/2023. TECHNIQUE: AP view of the pelvis FINDINGS: Bilateral hip arthroplasties. Status post reduction of the right femoral head component. There is a 4 mm separation between the acetabular cortex and the acetabular cup which has improved from prior, recently 9 mm. On the study from 03/07/2023 there is less than 1 m of medial separation. No acute right-sided femoral fracture. Left pelvic ring and left femoral periprosthetic fracture is again noted. IMPRESSION: 1. Status post reduction of the right hip arthroplasty with improved alignment. There is a 4 mm separation between the medial acetabular cortex and the acetabular cup which has improved from exam of 11:42 AM however demonstrates a change compared to 03/07/2023. 2. Left pelvic ring and left proximal femoral periprosthetic fractures again noted. 3. No acute right femoral fracture identified. ACT 112: Negative or not required by law. The above report was generated using voice recognition software. It may contain grammatical, syntax or spelling errors. Electronically signed by: Mike Purdy M.D. 03/19/2023 1:39 PM Discharge Plan Visit Data Chief Complaint: Hip Pain Stated Complaint: Hip Dislocation ED Provider: Carl Luna Discharge Problem: Dislocation of right hip Patient Disposition: Being Evaluated by Hospitalist Forms Stand Alone Forms: [employer] Git Prescriptions Prescriptions: No Action Acidophilus Lactobacillus 2 cap PO HS potassium chloride 10 mEq capsule, extended release 10 meq PO BID acetaminophen [Tylenol] 325 mg Tablet 350 mg PO QID PRN (Reason: Pain) loperamide 2 mg Capsule 2 mg PO Q8 PRN (Reason: Diarrhea) Rx Instructions: FOR 10 DAYS PRN metoprolol tartrate 100 mg tablet 100 mg PO BID polysaccharide iron complex [Ferrex 150] 150 mg iron Capsule 150 mg PO DAILY ondansetron HCl 4 mg Tablet 4 mg PO Q6H PRN (Reason: Nausea) acetaminophen-codeine 300-30 mg tablet 1 tab PO BID PRN (Reason: Pain) szbvhhukgu-puuzohtrgapnn-hypw 50-325-40 mg Tablet 1 tab PO Q6H PRN (Reason: Migraine Headache) vancomycin 125 mg capsule 125 mg PO QAM ascorbic acid (vitamin C) [Vitamin C] 500 mg Tablet 500 mg PO BID hydrocortisone 0.25 % Cream 1 applic TOPICAL DIRECTED vitamin B complex Tablet 1 tab PO DAILY L-Gmkq-Yywyfxv 250 mg Tablet 1 tab PO QID Rx Instructions: DISSOLLVE IN 6 OZ WATER. UNKNOWN STRENGTH. hydrochlorothiazide 25 mg tablet 12.5 mg PO DAILY Rx Instructions: TAKE 1/2 IN AM PER [facility] loratadine 10 mg Tablet 10 mg PO DAILY PRN (Reason: ALLERGIES) lrcyjrdwmnph-tdjkoqyw-cshsxq Tablet 1 tab PO DAILY Calcium 600 + D(3) 600 mg-5 mcg (200 unit) Capsule 1 cap PO BID magnesium oxide 400 mg magnesium Tablet 400 mg PO BID Ciloxan 0.3 % Ointment 1 applic ophthalmic (eye) TID Qty: 0 0RF guaifenesin [Mucinex] 600 mg Tablet Extended Release 12hr 600 mg PO Q12 PRN (Reason: congestion) Qty: 0 0RF dextroamphetamine-amphetamine 10 mg tablet 1 tab PO TID tramadol 50 mg Tablet 50 mg PO Q6H PRNQty: 0 0RF Eliquis 2.5 mg Tablet 2.5 mg PO BID Qty: 0 0RF Anoro Ellipta 62.5-25 mcg/actuation Blister With Device 1 inh INHALATION DAILY Advanced Probiotic 625 mg (10 billion cell) Capsule 2 cap PO DAILY Qty: 60 0RF ciprofloxacin HCl 250 mg tablet 250 mg PO BID Qty: 6 0RF Referrals Referrals: Jersey Ortiz, [Primary Care Provider] -
--- NOTE | 2023-03-19 14:42 | Pre Anesthesia Assessment ---
Date of Service March 19, 2023 Pre Sedation Assessment Vital Signs Temp Pulse Resp BP BP Pulse Ox O2 Del Method 03/19/23 13:00 60 16 100 Nasal Cannula 03/19/23 12:55 59 L 16 100 Nasal Cannula 03/19/23 12:50 61 16 100 Nasal Cannula 03/19/23 12:45 65 16 134/74 100 Nasal Cannula 03/19/23 12:00 59 L 16 123/54 L 95 03/19/23 11:55 57 L 16 116/58 L 95 03/19/23 11:50 59 L 12 123/62 96 03/19/23 11:45 61 12 127/63 96 03/19/23 12:50 61 8 L 100 03/19/23 12:45 67 18 99 03/19/23 12:45 138/68 03/19/23 12:43 134/74 03/19/23 12:43 66 23 99 03/19/23 12:41 123/61 03/19/23 12:41 58 L 13 03/19/23 12:40 56 L 35 H 03/19/23 12:35 56 L 16 03/19/23 12:35 123/62 03/19/23 12:30 56 L 19 03/19/23 12:30 119/54 L 03/19/23 12:25 56 L 17 99 03/19/23 12:25 124/57 L 03/19/23 12:20 57 L 21 99 03/19/23 12:20 124/61 03/19/23 12:15 58 L 16 100 03/19/23 12:15 131/59 L 03/19/23 12:10 57 L 18 100 03/19/23 12:10 121/57 L 95 03/19/23 12:05 53 L 29 H 99 03/19/23 12:05 125/60 95 03/19/23 12:00 59 L 14 97 03/19/23 12:00 123/54 L 95 03/19/23 11:55 58 L 14 97 03/19/23 11:55 116/58 L 95 03/19/23 11:50 59 L 11 L 97 03/19/23 11:50 123/62 95 03/19/23 11:45 63 14 98 03/19/23 11:45 127/63 95 03/19/23 11:40 64 11 L 92 03/19/23 11:35 60 22 95 03/19/23 11:30 66 28 H 03/19/23 11:25 67 12 91 03/19/23 11:23 112/55 L 98 03/19/23 11:23 66 29 H 97 03/19/23 11:21 89/38 L 92 03/19/23 11:21 66 17 98 03/19/23 11:20 65 23 98 03/19/23 11:15 66 14 97 03/19/23 11:15 102/42 L 95 03/19/23 11:12 56 L 15 91 03/19/23 11:12 88/36 L 03/19/23 11:10 64 26 H 95 03/19/23 11:06 106/54 L 03/19/23 11:06 65 19 96 03/19/23 11:05 64 14 94 03/19/23 11:00 65 17 95 03/19/23 10:55 71 17 95 03/19/23 10:50 72 23 94 03/19/23 12:05 57 L 16 112/85 95 Nasal Cannula 03/19/23 11:05 66 03/19/23 10:50 36.8 C 72 16 107/64 99 Room Air O2 Flow Rate 03/19/23 13:00 4 03/19/23 12:55 4 03/19/23 12:50 4 03/19/23 12:45 4 03/19/23 12:00 4 03/19/23 11:55 4 03/19/23 11:50 4 03/19/23 11:45 03/19/23 12:50 03/19/23 12:45 03/19/23 12:45 03/19/23 12:43 03/19/23 12:43 03/19/23 12:41 03/19/23 12:41 03/19/23 12:40 03/19/23 12:35 03/19/23 12:35 03/19/23 12:30 03/19/23 12:30 03/19/23 12:25 03/19/23 12:25 03/19/23 12:20 03/19/23 12:20 03/19/23 12:15 03/19/23 12:15 03/19/23 12:10 03/19/23 12:10 03/19/23 12:05 03/19/23 12:05 03/19/23 12:00 03/19/23 12:00 03/19/23 11:55 03/19/23 11:55 03/19/23 11:50 03/19/23 11:50 03/19/23 11:45 03/19/23 11:45 03/19/23 11:40 03/19/23 11:35 03/19/23 11:30 03/19/23 11:25 03/19/23 11:23 03/19/23 11:23 03/19/23 11:21 03/19/23 11:21 03/19/23 11:20 03/19/23 11:15 03/19/23 11:15 03/19/23 11:12 03/19/23 11:12 03/19/23 11:10 03/19/23 11:06 03/19/23 11:06 03/19/23 11:05 03/19/23 11:00 03/19/23 10:55 03/19/23 10:50 03/19/23 12:05 4 03/19/23 11:05 03/19/23 10:50 Pre-Sedation Airway Assessment Smoking Status: Never smoker Hx Sleep Apnea: No Short, Thick Neck: No Thyromental Distance: > or= 3.5 Finger Breadths Oral Cavity: + WNL Mallampati Class: II ASA: ASA3 NPO Status Date of Last Intake of Fluids: 03/19/23 Time of Last Intake of Fluids: 12:40 Last Oral Intake of Fluids Comment: 1 ice chip Date of Last Intake of Solid Food: 03/18/23 Notes The planned sedation has been discussed with the patient. Informed Consent was obtained. I have identified the patient, determined the appropriateness of sedation and have assessed the patient immediately prior to the procedure. All medicine(s) and interventions are by my order. Procedures Procedural Sedation Indication: fracture/dislocation reduction ASA Class: II Preparation: night warehouse manager applied, pulse oximeter, capnometry used, supplemental O2 applied, suction/airway equipment at bedside and IV secured Dosage Used (mgs): 30 Ketamine: IV IV Propofol dose (mg): 20 Patient Tolerated Procedure: well and no complications Additional Comments: The patient was consciously sedated twice during her ED stay. The initial time was 1144 to 1205. The second conscious sedation was 1247 to 1320. The initial conscious sedation was with 20 mg of IV ketamine after the administration of 4 mg of IV morphine. The second conscious sedation was with 30 mg of IV ketamine and 20 mg of IV propofol. Prior to this administration there was some administration of ketamine and propofol through an IV that was dislodged which did not cause any effect with regards to sedation.
--- NOTE | 2023-03-19 14:42 | Emergency Department Note ---
Post Sedation Assessment Vital Signs Temp Pulse Resp BP BP Pulse Ox O2 Del Method 03/19/23 13:15 64 16 131/64 94 03/19/23 13:10 64 16 136/72 95 03/19/23 13:05 64 16 133/70 98 Nasal Cannula 03/19/23 13:00 60 16 132/64 100 Nasal Cannula 03/19/23 12:55 59 L 16 128/64 100 Nasal Cannula 03/19/23 12:50 61 16 133/64 100 Nasal Cannula 03/19/23 12:45 65 16 134/74 100 Nasal Cannula 03/19/23 12:00 59 L 16 123/54 L 95 03/19/23 11:55 57 L 16 116/58 L 95 03/19/23 11:50 59 L 12 123/62 96 03/19/23 11:45 61 12 127/63 96 03/19/23 12:50 61 8 L 100 03/19/23 12:45 67 18 99 03/19/23 12:45 138/68 03/19/23 12:43 134/74 03/19/23 12:43 66 23 99 03/19/23 12:41 123/61 03/19/23 12:41 58 L 13 03/19/23 12:40 56 L 35 H 03/19/23 12:35 56 L 16 03/19/23 12:35 123/62 03/19/23 12:30 56 L 19 03/19/23 12:30 119/54 L 03/19/23 12:25 56 L 17 99 03/19/23 12:25 124/57 L 03/19/23 12:20 57 L 21 99 03/19/23 12:20 124/61 03/19/23 12:15 58 L 16 100 03/19/23 12:15 131/59 L 03/19/23 12:10 57 L 18 100 03/19/23 12:10 121/57 L 95 03/19/23 12:05 53 L 29 H 99 03/19/23 12:05 125/60 95 03/19/23 12:00 59 L 14 97 03/19/23 12:00 123/54 L 95 03/19/23 11:55 58 L 14 97 03/19/23 11:55 116/58 L 95 03/19/23 11:50 59 L 11 L 97 03/19/23 11:50 123/62 95 03/19/23 11:45 63 14 98 03/19/23 11:45 127/63 95 03/19/23 11:40 64 11 L 92 03/19/23 11:35 60 22 95 03/19/23 11:30 66 28 H 03/19/23 11:25 67 12 91 03/19/23 11:23 112/55 L 98 03/19/23 11:23 66 29 H 97 03/19/23 11:21 89/38 L 92 03/19/23 11:21 66 17 98 03/19/23 11:20 65 23 98 03/19/23 11:15 66 14 97 03/19/23 11:15 102/42 L 95 03/19/23 11:12 56 L 15 91 03/19/23 11:12 88/36 L 03/19/23 11:10 64 26 H 95 03/19/23 11:06 106/54 L 03/19/23 11:06 65 19 96 03/19/23 11:05 64 14 94 03/19/23 11:00 65 17 95 03/19/23 10:55 71 17 95 03/19/23 10:50 72 23 94 03/19/23 12:05 57 L 16 112/85 95 Nasal Cannula 03/19/23 11:05 66 03/19/23 10:50 36.8 C 72 16 107/64 99 Room Air O2 Flow Rate 03/19/23 13:15 03/19/23 13:10 03/19/23 13:05 4 03/19/23 13:00 4 03/19/23 12:55 4 03/19/23 12:50 4 03/19/23 12:45 4 03/19/23 12:00 4 03/19/23 11:55 4 03/19/23 11:50 4 03/19/23 11:45 03/19/23 12:50 03/19/23 12:45 03/19/23 12:45 03/19/23 12:43 03/19/23 12:43 03/19/23 12:41 03/19/23 12:41 03/19/23 12:40 03/19/23 12:35 03/19/23 12:35 03/19/23 12:30 03/19/23 12:30 03/19/23 12:25 03/19/23 12:25 03/19/23 12:20 03/19/23 12:20 03/19/23 12:15 03/19/23 12:15 03/19/23 12:10 03/19/23 12:10 03/19/23 12:05 03/19/23 12:05 03/19/23 12:00 03/19/23 12:00 03/19/23 11:55 03/19/23 11:55 03/19/23 11:50 03/19/23 11:50 03/19/23 11:45 03/19/23 11:45 03/19/23 11:40 03/19/23 11:35 03/19/23 11:30 03/19/23 11:25 03/19/23 11:23 03/19/23 11:23 03/19/23 11:21 03/19/23 11:21 03/19/23 11:20 03/19/23 11:15 03/19/23 11:15 03/19/23 11:12 03/19/23 11:12 03/19/23 11:10 03/19/23 11:06 03/19/23 11:06 03/19/23 11:05 03/19/23 11:00 03/19/23 10:55 03/19/23 10:50 03/19/23 12:05 4 03/19/23 11:05 03/19/23 10:50 Recovery Score Activity: Moves 4 extremities Respiration: Deep Breath/Cough Circulation: +/-20% PreAnes Value Consciousness: Fully Awake Oxygen Saturation: O2 needed for >90% Post Anesthesia Score: 6 Discharge Sedation Level of Care: Fast Track Phase II Unexpected Event: Other Unexpected Event Comment: hip is not in place Post Sedation Plan On clinical assessment, the patient appears to have tolerated the sedation without complications. Patient is recovering as anticipated. Patient will continue to be monitored by nursing and may be discharged when sedation discharge criteria are met per below protocol. Upon Completions of procedure up to 15 minutes continue every 5 minute vital signs and the P.A.R. score; then discharge to a Phase I or Fast Track to Phase II per the following guidelines: * Discharge Patient to appropriate Phase II area if PAR is 8 or greater or return to pre- procedure baseline. The post - procedure orders will be as directed. * If PAR score is less than 8 or not return to pre-procedure baseline then zander ent will follow Phase I monitoring till PAR is reached for Phase II. The Phase I may be done in procedure room or may call to secure a Phase I area. * If naloxone or flumazenil are used for reversal, hold in Phase I for continued monitoring from when last reversal dose was given for a minimum of 60 minutes or longer pending the nurse and/or physician discretion of patient condition before discharge to Phase II. Please call the Sedation Physician to re-evaluate and complete post-note for discharge to Phase II area. Do NOT discharge from procedure sedation or Phase 1 until post- sedation e valuation note is complete by procedure /sedation MD Sedation Discharge Instructions to be given to the patient at discharge to home. Sedation Data Sedation Times Sedation Start Date: 03/19/23 Sedation Start Time: 12:49 Sedation End Date: 03/19/23 Sedation End Time: 13:20 Total Sedation Time: 31 Procedure Times Procedure Start Time:: 12:47 Procedure End Time: 13:20
[2023-03-19 14:45] LABS: Basophils % (auto) 0.8 %; Eosinophils # (auto) 0.03 K/uL (0-0.50); Eosinophils % (auto) 0.2 %; Hematocrit (blood only) 33.4 % (37.0-47.0); Hemoglobin 11.2 g/dl (12.0-16.0); Immature Granulocytes # (auto) 0.05 K/uL (0.01-0.20); Immature Granulocytes % (auto) 0.4 %; Lymphocytes # (auto) 0.61 K/uL (1.2-3.4); Lymphocytes % (auto) 4.7 %; Mean Corpuscular Hemoglobin 32.8 pg (25.0-34.0); Mean Corpuscular Hgb Conc 33.5 g/dL (32.0-36.0); Mean Corpuscular Volume 97.9 fL (80.0-100.0); Mean Platelet Volume 10.7 fL (9.4-12.4); Monocytes # (auto) 0.65 K/uL (0.11-0.59); Neutrophils # (auto) 11.44 K/uL (1.40-6.50); Neutrophils % (auto) 88.9 %; Platelet Count 221 K/uL (130-400); RDW Coefficient of Variation 16.3 % (11.5-14.5); RDW Standard Deviation 58.7 fL (36.4-46.3); Red Blood Count 3.41 M/uL (4.20-5.40); White Blood Count 12.88 K/ul (4.8-10.8)
[2023-03-19 15:03] LABS: Albumin Globulin Ratio 1.2 (0.9-2); Albumin Level 3.2 gm/dl (3.4-5.0); BUN Creatinine Ratio 32.8 (10-20); Bilirubin,Total 1.5 mg/dl (0.2-1.0); Calcium 8.8 mg/dl (8.6-10.3); Creatinine Clr Calc Pharmacy 96.9 ml/min; Est GFR (African American) 113.7 ml/min; Est GFR (Non-African American) 98.1 ml/min; Globulin 2.7 gm/dl (2.5-4.0); Potassium 3.2 mmol/L (3.5-5.1); Total Protein 5.9 gm/dl (6.0-8.3)
--- NOTE | 2023-03-19 17:00 | History & Physical Report ---
Date of Service March 19, 2023 Assessment & Plan (1) Dislocation of right hip: Plan: Admit to [facility] Patient presenting from home with reports of right hip pain and suspected dislocation after standing up from the couch. History of right subcapital femoral neck fracture 02/15/2023 s/p repair, history of nondisplaced periprosthetic left hip fracture 03/15/2023 treated nonsurgically In the ED, x-ray shows superiorly dislocated right femoral head prosthesis. Reduction attempted by ED provider, ultimately orthopedics was called to perform reduction at bedside. No plans for surgical intervention at this time Patient was on Eliquis for DVT prophylaxis from surgery in January. Will hold for now and placed on SQ heparin in the event patient requires surgical intervention. Ortho to follow PT/OT, case management consults (2) UTI (urinary tract infection): Plan: Urine culture from 03/16 grew Enterobacter. Discharged on p.o. Cipro, continue for 2 days to complete course. (3) Hypokalemia: Plan: K+ 3.2 Replace, follow electrolytes Check Mg+ (4) HTN (hypertension): Plan: Continue HCTZ and metoprolol (5) C. difficile colitis: Plan: History of recurrent C. difficile, on chronic vancomycin suppression (6) Emphysema of lung: Plan: Appears stable (7) Cirrhosis: Plan: Appears compensated, LFTs at baseline (8) Bipolar disorder: (9) Schizophrenia: (10) Depression: Plan: Currently not on any medication for management DVT PROPHYLAXIS SQ heparin Patient was seen in collaboration with Dr. Langston I spent a total of 75 minutes coordinating, documenting, and providing care for this patient excluding time spent in the performance of separately billed services. This included personally reviewing all current laboratories and imaging studies, medication reconciliation, outpatient chart review, and discussion with specialists. History of Present Illness Chief Complaint: Right hip pain Primary Care Provider: Jersey Ortiz, 63-year-old female with PMH HTN, COPD, bipolar disorder, schizophrenia, cirrhosis, recurrent C. difficile on chronic vancomycin suppression, history of right subcapital femoral neck fracture 01/2023 s/p repair, history of nondisplaced periprosthetic left hip fracture 02/2023 treated nonsurgically, and other problems listed below who presents to the ED for evaluation of right hip pain. Patient discharged from [facility] yesterday for management of periprosthetic left hip fracture. Patient was advised to go to SNF for rehab however she declined. Patient reports that while she was attempting to stand from the couch this morning, she felt her right hip dislocate. Patient then presented to the ED for further evaluation. History is somewhat difficult to obtain from the patient due to hearing impairment and also sedation received in ED. Patient offers no other complaints at this time. ED provider attempted to reduce the right hip however was unsuccessful, orthopedics was ultimately called and right hip was reduced. Allergies Allergy/AdvReac Type Severity Reaction Status Date / Time Penicillins Allergy Severe ANAPHYLAXIS Verified 03/15/23 14:57 oxycodone [From Percodan] Allergy Unknown Unknown Verified 03/15/23 14:57 ketorolac [From Toradol] AdvReac Severe Breathing Verified 03/15/23 14:57 difficulty hydrocodone AdvReac Intermediate Nausea Verified 03/15/23 14:57 [From Lorcet (hydrocodone)] rifaximin [From Xifaxan] AdvReac Intermediate Dizzy, Verified 03/15/23 14:57 Fell down ursodiol AdvReac Intermediate Dizzy, Verified 03/15/23 14:57 Fell down Home Medications Medication Instructions Recorded Confirmed Type Acidophilus Lactobacillus 2 cap PO HS 02/14/23 03/19/23 History acetaminophen 300 mg-codeine 30 mg 1 tab PO BID PRN Pain 02/14/23 03/19/23 History tablet acetaminophen 325 mg tablet 350 mg PO QID PRN Pain 02/14/23 03/19/23 History (Tylenol) ascorbic acid (vitamin C) 500 mg 500 mg PO BID 02/14/23 03/19/23 History tablet (Vitamin C) czvybwwmuu-fbdjmbnpbdymf-efhhnkhj 1 tab PO Q6H PRN Migraine Headache 02/14/23 03/19/23 History 50 mg-325 mg-40 mg tablet calcium carbonate 600 mg-vitamin 1 cap PO BID 02/14/23 03/19/23 History D3 5 mcg (200 unit) capsule (Calcium 600 + D(3)) hydrochlorothiazide 25 mg tablet 12.5 mg PO DAILY 02/14/23 03/19/23 History hydrocortisone 0.25 % topical cream 1 applic topical DIRECTED 02/14/23 03/19/23 History loperamide 2 mg capsule 2 mg PO Q8 PRN Diarrhea 02/14/23 03/19/23 History loratadine 10 mg tablet 10 mg PO DAILY PRN ALLERGIES 02/14/23 03/19/23 History magnesium oxide 400 mg PO BID 02/14/23 03/19/23 History metoprolol tartrate 100 mg tablet 100 mg PO BID 02/14/23 03/19/23 History adiwhadlyaqg-bauabbfh-ppiuqq tablet 1 tab PO DAILY 02/14/23 03/19/23 History ondansetron HCl 4 mg tablet 4 mg PO Q6H PRN Nausea 02/14/23 03/19/23 History polysaccharide iron complex 150 mg 150 mg PO DAILY 02/14/23 03/19/23 History iron capsule (Ferrex) potassium chloride 10 mEq 10 meq PO BID 02/14/23 03/19/23 History capsule,extended release sodium di- and 1 tab PO QID 02/14/23 03/19/23 History monophosphate-potassium phos monobasic 250 mg tablet (D-Rxpj-Lpjmmnw) vancomycin 125 mg capsule 125 mg PO QAM 02/14/23 03/19/23 History vitamin B complex 1 tab PO DAILY 02/14/23 03/19/23 History apixaban 2.5 mg tablet (Eliquis) 2.5 mg PO BID #0 tabs 02/18/23 03/19/23 Rx ciprofloxacin HCl 0.3 % eye 1 applic ophthalmic (eye) TID #0 02/18/23 03/19/23 Rx ointment (Ciloxan) grams dextroamphetamine-amphetamine 10 1 tab PO TID 02/18/23 03/19/23 History mg tablet guaifenesin 600 mg tablet, 600 mg PO Q12 PRN congestion #0 02/18/23 03/19/23 Rx extended release 12 hr (Mucinex) tabs tramadol 50 mg tablet 50 mg PO Q6H PRN #0 tabs 02/18/23 03/19/23 Rx umeclidinium 62.5 mcg-vilanterol 1 inh inhalation DAILY 03/15/23 03/19/23 History 25 mcg/actuation powdr for inhalation (Anoro Ellipta) L.acidop,casei,lactis,rham-B.lact,marva 2 cap PO DAILY #60 caps 03/18/23 03/19/23 Rx 625 mg (10 billion cell) capsule (Advanced Probiotic) ciprofloxacin HCl 250 mg tablet 250 mg PO BID #6 tabs 03/18/23 03/19/23 Rx Past Med/Surg History Medical History Bacteremia Bipolar disorder C. 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 F/U CT recommended 3-6 months Schizophrenia Vitamin D deficiency Surgical History History of appendectomy History of shoulder surgery History of total hip replacement femur fracture one month later with repair, both in 2007 Status post open reduction and internal fixation (ORIF) of fracture Family History Father Myocardial infarction Mother Colorectal cancer Social History Smoking Status: Never smoker Tobacco Type: Cigarettes Cigarettes Per Day: 18; Second Hand Exposure: No; Hx Alcohol Use: No Hx Substance Use: No Preferred Language: [place] Communication Ability: Effective Communication Ability Comment: pt [facility] Control Panel Assembler Required: No Beliefs That Will Affect Care: None marital status: Current Living Situation: Spouse Current Living Situation Comment: Lives with Feels Safe at Home: Yes Assistive Devices: Bedside Commode, Cane, Walker and Wheelchair Review of Systems Review of Systems: ROS per HPI, all other systems reviewed and negative Physical Exam Constitutional: no acute distress Chronically ill-appearing, appears older than stated age Eyes: PERRL, conjunctivae normal, anicteric sclerae ENMT: Ears: + hearing impairment; no external ear abnormality Nose: no external nose abnormality Respiratory: normal respiratory effort, lungs clear to auscultation Cardiovascular: Rate/Rhythm: regular rate and regular rhythm Vessels: normal peripheral pulses Extremities: no edema Gastrointestinal (Abdomen): normal bowel sounds, soft, nontender, no hepatosplenomegaly Musculoskeletal: right hip pain with minimal movement, BLE length equal Skin: no rashes, warm and dry Neurologic: PERRL, EOMI, accommodation nl, no face palsy, no dysarthria Psychiatric: Orientation: alert and oriented x 3 Affect: + irritable affect Results & Data Results & Data Vital Signs (Past 12 Hours) Vital Signs Temp Pulse Pulse Resp BP BP Pulse Ox 03/19/23 16:30 77 18 95 03/19/23 16:30 120/59 L 03/19/23 16:00 77 19 98 03/19/23 16:00 120/53 L 03/19/23 15:34 03/19/23 15:33 97 03/19/23 15:31 73 18 118/64 97 03/19/23 15:00 80 19 96 03/19/23 15:00 124/63 03/19/23 14:45 83 25 H 92 03/19/23 14:30 74 20 94 03/19/23 14:30 125/65 03/19/23 14:20 128/77 03/19/23 14:20 92 H 20 93 03/19/23 14:15 82 19 95 03/19/23 14:15 127/66 03/19/23 14:10 137/79 03/19/23 14:10 88 16 99 03/19/23 14:06 144/91 H 03/19/23 14:06 34 H 03/19/23 14:00 11 L 03/19/23 14:00 108/76 03/19/23 13:55 100/69 03/19/23 13:55 24 03/19/23 13:51 149/52 H 03/19/23 13:51 19 03/19/23 13:45 78 19 99 03/19/23 13:45 153/84 H 03/19/23 13:40 75 19 100 03/19/23 13:40 143/73 H 03/19/23 13:35 140/70 03/19/23 13:35 70 18 100 03/19/23 13:30 67 16 100 03/19/23 13:30 138/69 03/19/23 13:25 63 16 100 03/19/23 13:25 132/68 03/19/23 13:20 133/65 03/19/23 13:20 64 18 100 03/19/23 13:15 63 19 100 03/19/23 13:15 131/64 03/19/23 13:10 136/72 03/19/23 13:10 62 26 H 99 03/19/23 13:05 133/70 03/19/23 13:05 63 28 H 100 03/19/23 13:00 59 L 7 L 100 03/19/23 13:00 132/64 03/19/23 12:55 128/64 03/19/23 12:55 62 9 L 100 03/19/23 12:50 133/64 03/19/23 13:20 63 16 133/64 03/19/23 13:15 64 16 131/64 94 03/19/23 13:10 64 16 136/72 95 03/19/23 13:05 64 16 133/70 98 03/19/23 13:00 60 16 132/64 100 03/19/23 12:55 59 L 16 128/64 100 03/19/23 12:50 61 16 133/64 100 03/19/23 12:45 65 16 134/74 100 03/19/23 12:00 59 L 16 123/54 L 95 03/19/23 11:55 57 L 16 116/58 L 95 03/19/23 11:50 59 L 12 123/62 96 03/19/23 11:45 61 12 127/63 96 03/19/23 12:50 61 8 L 100 03/19/23 12:45 67 18 99 03/19/23 12:45 138/68 03/19/23 12:43 134/74 03/19/23 12:43 66 23 99 03/19/23 12:41 123/61 03/19/23 12:41 58 L 13 03/19/23 12:40 56 L 35 H 03/19/23 12:35 56 L 16 03/19/23 12:35 123/62 03/19/23 12:30 56 L 19 03/19/23 12:30 119/54 L 03/19/23 12:25 56 L 17 99 03/19/23 12:25 124/57 L 03/19/23 12:20 57 L 21 99 03/19/23 12:20 124/61 03/19/23 12:15 58 L 16 100 03/19/23 12:15 131/59 L 03/19/23 12:10 57 L 18 100 03/19/23 12:10 121/57 L 95 03/19/23 12:05 53 L 29 H 99 03/19/23 12:05 125/60 95 03/19/23 12:00 59 L 14 97 03/19/23 12:00 123/54 L 95 03/19/23 11:55 58 L 14 97 03/19/23 11:55 116/58 L 95 03/19/23 11:50 59 L 11 L 97 03/19/23 11:50 123/62 95 03/19/23 11:45 63 14 98 03/19/23 11:45 127/63 95 03/19/23 11:40 64 11 L 92 03/19/23 11:35 60 22 95 03/19/23 11:30 66 28 H 03/19/23 11:25 67 12 91 03/19/23 11:23 112/55 L 98 03/19/23 11:23 66 29 H 97 03/19/23 11:21 89/38 L 92 03/19/23 11:21 66 17 98 03/19/23 11:20 65 23 98 03/19/23 11:15 66 14 97 03/19/23 11:15 102/42 L 95 03/19/23 11:12 56 L 15 91 03/19/23 11:12 88/36 L 03/19/23 11:10 64 26 H 95 03/19/23 11:06 106/54 L 03/19/23 11:06 65 19 96 03/19/23 11:05 64 14 94 03/19/23 11:00 65 17 95 03/19/23 10:55 71 17 95 03/19/23 10:50 72 23 94 03/19/23 12:05 57 L 16 112/85 95 03/19/23 11:05 66 03/19/23 10:50 36.8 C 72 16 107/64 99 O2 Del Method O2 Flow Rate 03/19/23 16:30 03/19/23 16:30 03/19/23 16:00 Room Air 03/19/23 16:00 03/19/23 15:34 Room Air 03/19/23 15:33 Room Air 03/19/23 15:31 Room Air 03/19/23 15:00 03/19/23 15:00 03/19/23 14:45 03/19/23 14:30 03/19/23 14:30 03/19/23 14:20 03/19/23 14:20 03/19/23 14:15 03/19/23 14:15 03/19/23 14:10 03/19/23 14:10 03/19/23 14:06 03/19/23 14:06 03/19/23 14:00 03/19/23 14:00 03/19/23 13:55 03/19/23 13:55 03/19/23 13:51 03/19/23 13:51 03/19/23 13:45 03/19/23 13:45 03/19/23 13:40 03/19/23 13:40 03/19/23 13:35 03/19/23 13:35 03/19/23 13:30 03/19/23 13:30 03/19/23 13:25 03/19/23 13:25 03/19/23 13:20 03/19/23 13:20 03/19/23 13:15 03/19/23 13:15 03/19/23 13:10 03/19/23 13:10 03/19/23 13:05 03/19/23 13:05 03/19/23 13:00 03/19/23 13:00 03/19/23 12:55 03/19/23 12:55 03/19/23 12:50 03/19/23 13:20 03/19/23 13:15 03/19/23 13:10 03/19/23 13:05 Nasal Cannula 4 03/19/23 13:00 Nasal Cannula 4 03/19/23 12:55 Nasal Cannula 4 03/19/23 12:50 Nasal Cannula 4 03/19/23 12:45 Nasal Cannula 4 03/19/23 12:00 4 03/19/23 11:55 4 03/19/23 11:50 4 03/19/23 11:45 03/19/23 12:50 03/19/23 12:45 03/19/23 12:45 03/19/23 12:43 03/19/23 12:43 03/19/23 12:41 03/19/23 12:41 03/19/23 12:40 03/19/23 12:35 03/19/23 12:35 03/19/23 12:30 03/19/23 12:30 03/19/23 12:25 03/19/23 12:25 03/19/23 12:20 03/19/23 12:20 03/19/23 12:15 03/19/23 12:15 03/19/23 12:10 03/19/23 12:10 03/19/23 12:05 03/19/23 12:05 03/19/23 12:00 03/19/23 12:00 03/19/23 11:55 03/19/23 11:55 03/19/23 11:50 03/19/23 11:50 03/19/23 11:45 03/19/23 11:45 03/19/23 11:40 03/19/23 11:35 03/19/23 11:30 03/19/23 11:25 03/19/23 11:23 03/19/23 11:23 03/19/23 11:21 03/19/23 11:21 03/19/23 11:20 03/19/23 11:15 03/19/23 11:15 03/19/23 11:12 03/19/23 11:12 03/19/23 11:10 03/19/23 11:06 03/19/23 11:06 03/19/23 11:05 03/19/23 11:00 03/19/23 10:55 03/19/23 10:50 03/19/23 12:05 Nasal Cannula 4 03/19/23 11:05 03/19/23 10:50 Room Air Laboratory Results Short CBC 03/19/23 Range/Units 14:28 WBC 12.88 H (4.8-10.8) K/ul Hgb 11.2 L (12.0-16.0) g/dl Hct 33.4 L (37.0-47.0) % Plt Count 221 (130-400) K/uL BMP 03/19/23 14:28 Sodium 142 Potassium 3.2 L Chloride 107 Carbon Dioxide 24 BUN 19 Creatinine 0.58 L Glucose 136 H Calcium 8.8 Liver Function 03/19/23 Range/Units 14:28 Total Bilirubin 1.5 H (0.2-1.0) mg/dl AST 42 H (13-39) U/L ALT 18 (7-52) U/L Alkaline Phosphatase 144 H (34-104) U/L Albumin 3.2 L (3.4-5.0) gm/dl Diagnostic Findings Pelvis X-Ray 03/19/23 10:49 XR pelvis 1-2V routine HISTORY: 63 years-old Female hip dislocation acute right hip pain COMPARISON: Pelvis radiograph 03/07/2023, CT left hip and femur 4 18,023 TECHNIQUE: AP view the pelvis FINDINGS: Bilateral hip total joint arthroplasties. There is superior dislocation of the right femoral head prosthesis by approximately 6.9 cm. Partially imaged ORIF hardware of the left femoral head cysts again noted with proximal cerclage wires. The 2 most proximal cannulated screws are again noted to be fractured. Likely acute periprosthetic fracture of the left proximal femoral diaphysis is again noted with adjacent cerclage wires. Metallic surgical clip device is noted inferior to the left hip which may be external to the patient. Acute appearing left inferior pubic ramus fracture again noted. IMPRESSION: 1. Bilateral hip total joint arthroplasties with superiorly dislocated right femoral head prosthesis. No evidence of acute right hip fracture. 2. ORIF changes of the left femur with fracture cannulated screws again noted. 3. Periprosthetic fracture of the left proximal femur again noted with subtle acute nondisplaced left pelvic ring fracture, unchanged from prior CT. ACT 112: Negative or not required by law. The above report was generated using voice recognition software. It may contain grammatical, syntax or spelling errors. Electronically signed by: Mike Purdy M.D. 03/19/2023 11:09 AM Pelvis X-Ray 03/19/23 11:49 XR pelvis 1-2V routine HISTORY: 63 years-old Female rt hip dislocation status post reduction of the right hip arthroplasty COMPARISON: Pelvis radiograph of same day at 10:47 AM TECHNIQUE: AP view of the pelvis FINDINGS: Bilateral hip arthroplasties. Status post reduction of the right femoral head component which is subluxed laterally. No acute right-sided femoral fracture. Left pelvic ring and left femoral periprosthetic fracture is again noted. IMPRESSION: 1. Status post reduction of the right hip arthroplasty with mild lateral subluxation of less than 1 cm. 2. Left pelvic ring and left proximal femoral periprosthetic fractures again noted. 3. No acute right femoral fracture identified. ACT 112: Negative or not required by law. The above report was generated using voice recognition software. It may contain grammatical, syntax or spelling errors. Electronically signed by: Mike Purdy M.D. 03/19/2023 12:02 PM Pelvis X-Ray 03/19/23 12:49 XR pelvis 1-2V routine HISTORY: 63 years-old Female Post right hip reduction right hip arthroplasty COMPARISON: Pelvis radiograph of same day and also 03/04/2023, 03/07/2023. TECHNIQUE: AP view of the pelvis FINDINGS: Bilateral hip arthroplasties. Status post reduction of the right femoral head component. There is a 4 mm separation between the acetabular cortex and the acetabular cup which has improved from prior, recently 9 mm. On the study from 03/07/2023 there is less than 1 m of medial separation. No acute right-sided femoral fracture. Left pelvic ring and left femoral periprosthetic fracture is again noted. IMPRESSION: 1. Status post reduction of the right hip arthroplasty with improved alignment. There is a 4 mm separation between the medial acetabular cortex and the acetabular cup which has improved from exam of 11:42 AM however demonstrates a change compared to 03/07/2023. 2. Left pelvic ring and left proximal femoral periprosthetic fractures again noted. 3. No acute right femoral fracture identified. ACT 112: Negative or not required by law. The above report was generated using voice recognition software. It may contain grammatical, syntax or spelling errors. Electronically signed by: Mike Purdy M.D. 03/19/2023 1:39 PM Code Status & VTE Plan VTE Prophylaxis Plan VTE Prophylaxis will be ordered: No Supervising Physician Co-Signing Physician Notes Patient is a 63-year-old female with multiple comorbidities who was recently hospitalized with history of nondisplaced periprosthetic left hip fracture and urinary tract infection was discharged home as patient refused to go to rehab facility. Patient was advised to be nonweightbearing 6 to 8 weeks. Patient presents with a fall while trying to stand up from the couch this morning resulting in right hip dislocation of femoral head prosthesis. Patient previously had right subcapital femoral neck fracture in January 2023 which was repaired at the time. Patient had reduction of the hip dislocation while in ED. She complained of hip pain with decreased range of movement. Offers no other complaints. Blood work, imaging studies reviewed. Appreciate orthopedics input. On exam patient is thin, frail, ill-appearing, normocephalic atraumatic, EOMI, normal bedside, clear to auscultation, S1-S2, no murmur, abdomen soft, nontender, normal bowel sounds, alert, awake, oriented, grossly no focal deficits, right hip decreased range of movement, left lower extremity shortened, externally rotated.+ Significant hearing impairment. Patient is admitted for management of right hip dislocation secondary to fall. Pain control. Fall precautions, PT OT. Appreciate orthopedics input. Continue ciprofloxacin for UTI. Replace electrolytes as needed. Agree with current management as above. I personally reviewed the record. Patient is interviewed and examined at bedside. Patient's care is coordinated with Abigail Bar NP. Please refer to the documentation above for details of patient's presentation and for discussion of other issues.
[2023-03-19] MEDS ORDERED: POTASSIUM CHLORIDE CRTAB 20 MEQ TABCR PO STA (17:08)
[2023-03-19] MEDS ORDERED: ONDANSETRON INJ 2 MG/ML 2 ML VIAL IV PRN (19:01)
[2023-03-19] MEDS ORDERED: traMADol HCL 50 MG TABLET PO PRN ×2 (19:01→21:18)
[2023-03-19] MEDS ORDERED: ACETAMINOPHEN 500 MG TAB PO SCH (20:00)
[2023-03-19] MEDS ORDERED: NALOXONE HCL 0.4 MG/1 ML VIAL/CARP IV STA (20:38)
[2023-03-19] MEDS ORDERED: MAGNESIUM SULFATE / D5W 1 GM/100 ML BAG IV ONE (21:15)
[2023-03-19] MEDS ORDERED: POTASSIUM CHLORIDE PWD 20 MEQ PACK PO STA (21:16)
[2023-03-19] MEDS: ACETAMINOPHEN 500 MG TAB PO SCH (21:47)
[2023-03-19] MEDS: CIPROFLOXACIN 250 MG TAB PO SCH (21:49)
[2023-03-19] MEDS: METOPROLOL TARTRATE 100 MG TAB PO SCH (21:49)
[2023-03-19] MEDS: AMPHETAMINE ASP/SULF/DEXTRAMPH 10 MG TAB PO SCH (21:49)
[2023-03-19] MEDS: POTASSIUM CHLORIDE 10 MEQ TABCR PO SCH (21:50)
[2023-03-19] MEDS: MAGNESIUM OXIDE 400 MG TAB PO SCH (21:51)
[2023-03-19] MEDS: POT PHOSPHATE MONOBASIC W/ SOD TAB PO SCH (21:51)
[2023-03-19] MEDS ORDERED: HEPARIN SOD 5,000 UNIT/0.5 ML VIAL SQ SCH (22:00)
[2023-03-19] MEDS ORDERED: NSS + 20MEQ KCL 20 MEQ/1,000 ML BAG IV ONE (22:00)
[2023-03-19] MEDS ORDERED: traMADol HCL 50 MG TABLET PO STA (23:10)
--- NOTE | 2023-03-20 00:22 | Communication Note ---
Date of Service: March 19, 202303/19, 835 PM Notified by RN of patient decreased responsiveness. Improved mentation post Narcan administration as per RN Serum ammonia 93 AP Encephalopathy Multifactorial : Hepatic encephalopathy ? Electrolyte abnormalities (low K, low mag on admission) as precipitant, rule out GI bleed as precipitant given hemoglobin drop baseline/Eliquis Rx at home, patient's unaware of GI bleed symptoms Morphine administration at the ER contributory Lactulose Replace electrolytes, hold home diuretic until electrolytes within normal limits FOBT (unable to turn patient right now to perform test due to uncontrolled right hip pain) Hold anticoagulation until GI bleed ruled out GI consult Re: Hepatic encephalopathy Careful narcotic use given opioid sensitivity
[2023-03-20] MEDS ORDERED: traMADol HCL 50 MG TABLET PO PRN (00:37)
[2023-03-20] MEDS: LACTULOSE SYRUP 20 GM/30 ML UDC PO SCH ×3 (00:53→12:51)
[2023-03-20 03:20] LABS: Appearance Urine Cloudy (Clear); Bacteria Urine Automated Negative (Negative); Bilirubin Urine Negative (Negative); Blood Urine 2+ (Negative); Color Urine Dark Yellow; Epithelial Cell Urine Auto >30 /lpf (0-5); Glucose Urine UA Negative (Negative); Ketones Urine Negative (Negative); Leukocyte Esterase Urine 1+ (Negative); Nitrite Urine Negative (Negative); Protein Urine Trace (Negative); Specific Gravity Urine 1.033 (1.000-1.030); Urobilinogen Urine Negative (Negative); WBC Urine Automated >30 /hpf (0-5); pH Urine 5.5 (4.5-7.5)
[2023-03-20 07:36] LABS: BUN Creatinine Ratio 34.4 (10-20); Calcium 8.4 mg/dl (8.6-10.3); Creatinine Clr Calc Pharmacy 92.1 ml/min; Est GFR (African American) 111.8 ml/min; Est GFR (Non-African American) 96.5 ml/min; Potassium 4.6 mmol/L (3.5-5.1)
[2023-03-20] MEDS: ACETAMINOPHEN 500 MG TAB PO SCH ×2 (07:55→21:22)
[2023-03-20] MEDS: ADVANCED PROBIOTIC 1250 MG CAPSULE PO SCH (07:56)
[2023-03-20] MEDS: MAGNESIUM OXIDE 400 MG TAB PO SCH ×2 (07:56→21:26)
[2023-03-20] MEDS: POT PHOSPHATE MONOBASIC W/ SOD TAB PO SCH ×4 (07:56→21:23)
[2023-03-20] MEDS: CIPROFLOXACIN 250 MG TAB PO SCH ×2 (07:56→21:26)
[2023-03-20] MEDS: METOPROLOL TARTRATE 100 MG TAB PO SCH ×2 (07:56→21:26)
[2023-03-20] MEDS: IRON POLYSACCHARIDE COMPLEX 150 MG CAPSULE PO SCH (07:56)
[2023-03-20] MEDS: POTASSIUM CHLORIDE 10 MEQ TABCR PO SCH ×2 (07:58→21:26)
[2023-03-20 08:14] LABS: Hematocrit (blood only) 24.3 % (37.0-47.0); Hemoglobin 8.1 g/dl (12.0-16.0); Mean Corpuscular Hemoglobin 33.5 pg (25.0-34.0); Mean Corpuscular Hgb Conc 33.3 g/dL (32.0-36.0); Mean Corpuscular Volume 100.4 fL (80.0-100.0); Mean Platelet Volume 10.6 fL (9.4-12.4); Platelet Count 245 K/uL (130-400); RDW Coefficient of Variation 16.8 % (11.5-14.5); Red Blood Count 2.42 M/uL (4.20-5.40)
--- NOTE | 2023-03-20 08:58 | Orthopedic Progress Note ---
Date of Service March 20, 2023 Assessment & Plan (1) Dislocation of right hip: Plan 63-year-old female right hip bipolar dislocation -Abduction pillow and posterior hip precautions -Admitted to medicine service. -Pain control. Patient expressed concern regarding her opioid use in light of her previous opioid addiction and previous complicated recovery episodes. -PT/OT -X-rays and CT of right hip were ordered for further evaluation due to persistent pain -Orthopedics will continue to follow -Patient seen and examined on rounds today with Dr. Sweeney -OK to get Heparin SQ for DVT prophylaxis today, please hold tomorrow's doses, and make her NPO at midnight tonight with IV fluids in case Dr. Ogden wants to take her to operating room tomorrow. Admission and Anticipated Discharge Date Admission Date: March 19, 2023 Supervising Physician Co-Signing Physician Notes 03/20/23 1103 update: CT right hip reviewed - medial cortical piece visualized that is stable from previous imaging. Tiny bony piece noted within the superior joint. This could be a source of pain, however, her pain could also be from hematoma and soft tissue injury as a result of her dislocation yesterday. Furthermore, her history of opioid tolerance could exaggerate her pain level. Will discuss with Dr. Ogden. Patient to remain on bedrest until his evaluation tomorrow. Subjective Patient is a 63-year-old female who is status post right hip hemiarthroplasty closed reduction. Patient seen and examined resting comfortably in bed this morning. Patient states that her hip is still mildly painful at rest as well as through even moderate range of motion. Has not been out of bed since her reduction. Of note, patient expressed concern regarding her previous opioid addiction. Review of Systems Review of Systems: All systems reviewed & are unremarkable except as noted in HPI & below Physical Exam Physical Exam: Right lower extremity: surgical incision well-healed with minimal erythema right hip, extremity warm well perfused, compartments are soft and compressible, approximately 3 to 4 cm longer than compared to left lower extremity, sensation intact to light touch L3-S1, EHL/TA/GS intact, no pain with short arc logroll however notes pain with approximately 40 degrees of flexion Results & Data Vital Signs (Past 12 Hours) Vital Signs Temp Pulse Resp BP BP Pulse Ox O2 Del Method 03/20/23 08:00 Room Air 03/20/23 07:33 36.4 C L 92 H 14 127/76 97 Room Air 03/20/23 00:56 36.6 C 68 18 112/69 99 Room Air
[2023-03-20] MEDS ORDERED: ACETAMINOPHEN 500 MG TAB PO SCH (09:00)
[2023-03-20] MEDS ORDERED: hydroCHLOROthiazide 25 MG TAB PO SCH (09:00)
--- NOTE | 2023-03-20 09:18 | XRay Report ---
XR hip RT 2V w pelvis HISTORY: 63 years-old Female post reduction eval status post reduction of the right hip COMPARISON: Pelvis radiograph 03/19/2023, 03/07/2023. TECHNIQUE: AP view of the pelvis with 2 views of the right hip FINDINGS: Bilateral hip arthroplasties. Status post reduction of the right femoral head component. There is a 2 mm separation between the acetabular cortex and the acetabular cup which has improved from prior, re cently 4 mm On the study from 03/07/2023 there is less than 1 mm of medial separation. No acute right- sided femoral fracture. Left pelvic ring and left femoral periprosthetic fracture is again noted. Pro minent soft tissue swelling surrounding the right hip. IMPRESSION: 1. No acute fracture or dislocation of the right hip identified. There is however prominent soft tiss ue swelling surrounding the right hip which is likely posttraumatic. 2. Left pelvic ring and left proximal femoral periprosthetic fractures again noted. ACT 112: Negative or not required by law. The above report was generated using voice recognition software. It may contain grammatical, syntax o r spelling errors. Electronically signed by: Mike Purdy M.D. 03/20/2023 9:16 AM
[2023-03-20] MEDS: AMPHETAMINE ASP/SULF/DEXTRAMPH 10 MG TAB PO SCH ×3 (10:20→21:25)
[2023-03-20] MEDS: UMECLIDINIUM/VILANTEROL 62.5/25MCG 7 PUFFS/INHALER INH SCH (10:20)
--- NOTE | 2023-03-20 10:22 | CT Scan Report ---
CT head/brain wo con CLINICAL HISTORY: 63 years-old Female with Altered Mental STtaus, Fall. Acutely altered mental statu s with recent fall TECHNIQUE: Multiple axial CT images of the head were obtained without contrast. A dose lowering tech nique was utilized adhering to the principles of ALARA. CT DOSE: 1092.83 mGy.cm COMPARISON: 02/13/2023 FINDINGS: No acute intracranial hemorrhage, midline shift, intracranial mass, hydrocephalus, territorial ischem ia or abnormal extra-axial collection. Limited exam secondary to positioning. Involutional changes wi th chronic microvascular ischemic disease. The calvarium is intact. The paranasal sinuses, mastoid air cells, and middle ear cavities are clear . IMPRESSION: Limited exam secondary to positioning. No acute intracranial abnormality or calvarial fr acture identified. ACT 112: Negative or not required by law. The above report was generated using voice recognition software. It may contain grammatical, syntax o r spelling errors. Electronically signed by: Mike Purdy M.D. 03/20/2023 10:21 AM
--- NOTE | 2023-03-20 10:36 | CT Scan Report ---
CT hip RT wo con HISTORY: 63 years-old Female pain post reduction acute right hip pain with recent dislocation. COMPARISON: Pelvis and hip radiograph 03/20/2023, CT left hip and femur 03/15/2023, CT abdomen and pelv is 02/13/2023, 03/07/2023 radiographs. TECHNIQUE: Multiple axial CT images of the right hip were obtained without the use of IV contrast. A dose lowering technique was used consistent with the principals of ALARA. FINDINGS: Bilateral hip arthroplasties. Recent reduction of the right femoral head component. There is a 2 mm s eparation between the acetabular cortex and the acetabular cup which has improved from prior, recentl y 4 mm. On the study from 03/07/2023 there was less than 1 mm of medial separation. Intra-articular lo ose bodies are new from 02/13/2023, the largest of which is a 1.4 x 0.2 x 0.9 cm linear radiodensity w ithin the medial aspect of the femoral acetabular joint on image 26 of the coronal series. Additional smaller radiodense foci noted within the superior aspect of the femoral acetabular joint. Limited st udy secondary to artifact from the hardware. No acute right-sided femoral fracture. Large intramuscul ar hematoma of the proximal right thigh, predominantly involving the gluteal muscles with extension a long the lateral quadriceps, the margins of which are difficult to measure. There is also moderate am ount of hemorrhage which extends into the pelvis. Left pelvic ring and left femoral periprosthetic fracture is again noted. Prominent soft tissue swell ing surrounding the right hip. Fractured cannulated screws of the left ORIF hardware. IMPRESSION: 1. Recent reduction of the right hip arthroplasty acetabular cup. Intra-articular loose bodies within the femoral acetabular joint measuring up to 1.4 cm are suggestive of probable tiny acetabular corti abhishek fracture fragments, donor sites not definitively seen. This prohibits the acetabular cup from sophia quately seating within the [place] acetabulum as described on the recent radiographs. 2. No acute fracture of the right hemipelvis or right femur identified, however evaluation is limited secondary to streak artifact. 3. Large amount of intramuscular hemorrhage within the right gluteal tissues, and right thigh with in trapelvic extension. 4. Fractured hardware of the left femur with periprosthetic fracture is better seen on the comparison studies. ACT 112: Negative or not required by law. The above report was generated using voice recognition software. It may contain grammatical, syntax o r spelling errors. Electronically signed by: Mike Purdy M.D. 03/20/2023 10:34 AM
--- NOTE | 2023-03-20 13:38 | Gastrointestinal Consultation ---
Date of Consultation March 20, 2023 Assessment & Plan (1) Dislocation of right hip: Will defer to Ortho team (2) Cirrhosis: Continue Outpatient management for chronic disease Abstain from all alcohol as it is a known liver toxin Continue Lactulose therapy as Ammonia decreased to 82 No plans for invasive GI workup. History of Present Illness Reason for Consultation: Hepatic encephalopathy Attending Physician: Julieta Muniz MD History of Present Illness Dee Dorantes is a 63 yo CF with an extensive PMHx including opioid abuse and history of cirrhosis who presented to the ER with Right hip pain. She had a repair of a right subcapital Hip fracture in January 2023, and and loida-prosthetic left hip fracture 1 day prior to her ER evaluation. She stated that she felt her right hip dislocate prior to her arrival. The ER physician did try to reduce her right hip dislocation, however, he was unsuccessful. Orthopedics was contacted and right hip was reduced. CT imaging showed questionable fracture in right hip and an extensive hematoma. As the patient was confused in the ER an ammonia level was drawn and noted to be 92. 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 She was subsequently admitted, placed on bed rest and given analgesia. At the time I saw the patient she denies any abdominal pain, jaundice, acholic stools, dark urine, pruritus, hematemesis, melena or hematochezia. She denies any further complaints. Allergies Allergy/AdvReac Type Severity Reaction Status Date / Time Penicillins Allergy Severe ANAPHYLAXIS Verified 03/15/23 14:57 oxycodone [From Percodan] Allergy Unknown Unknown Verified 03/15/23 14:57 ketorolac [From Toradol] AdvReac Severe Breathing Verified 03/15/23 14:57 difficulty hydrocodone AdvReac Intermediate Nausea Verified 03/15/23 14:57 [From Lorcet (hydrocodone)] rifaximin [From Xifaxan] AdvReac Intermediate Dizzy, Verified 03/15/23 14:57 Fell down ursodiol AdvReac Intermediate Dizzy, Verified 03/15/23 14:57 Fell down Home Medications Medication Instructions Recorded Confirmed Type Acidophilus Lactobacillus 2 cap PO HS 02/14/23 03/19/23 History acetaminophen 300 mg-codeine 30 mg 1 tab PO BID PRN Pain 02/14/23 03/19/23 History tablet acetaminophen 325 mg tablet 350 mg PO QID PRN Pain 02/14/23 03/19/23 History (Tylenol) ascorbic acid (vitamin C) 500 mg 500 mg PO BID 02/14/23 03/19/23 History tablet (Vitamin C) craajosvcm-rmlkttfmfpnfq-rizoubic 1 tab PO Q6H PRN Migraine Headache 02/14/23 03/19/23 History 50 mg-325 mg-40 mg tablet calcium carbonate 600 mg-vitamin 1 cap PO BID 02/14/23 03/19/23 History D3 5 mcg (200 unit) capsule (Calcium 600 + D(3)) hydrochlorothiazide 25 mg tablet 12.5 mg PO DAILY 02/14/23 03/19/23 History hydrocortisone 0.25 % topical cream 1 applic topical DIRECTED 02/14/23 03/19/23 History loperamide 2 mg capsule 2 mg PO Q8 PRN Diarrhea 02/14/23 03/19/23 History loratadine 10 mg tablet 10 mg PO DAILY PRN ALLERGIES 02/14/23 03/19/23 History magnesium oxide 400 mg PO BID 02/14/23 03/19/23 History metoprolol tartrate 100 mg tablet 100 mg PO BID 02/14/23 03/19/23 History zxkbkolxtmdt-ymvuqnqr-qfzcap tablet 1 tab PO DAILY 02/14/23 03/19/23 History ondansetron HCl 4 mg tablet 4 mg PO Q6H PRN Nausea 02/14/23 03/19/23 History polysaccharide iron complex 150 mg 150 mg PO DAILY 02/14/23 03/19/23 History iron capsule (Ferrex) potassium chloride 10 mEq 10 meq PO BID 02/14/23 03/19/23 History capsule,extended release sodium di- and 1 tab PO QID 02/14/23 03/19/23 History monophosphate-potassium phos monobasic 250 mg tablet (K-Yrxn-Pjqxpkq) vancomycin 125 mg capsule 125 mg PO QAM 02/14/23 03/19/23 History vitamin B complex 1 tab PO DAILY 02/14/23 03/19/23 History apixaban 2.5 mg tablet (Eliquis) 2.5 mg PO BID #0 tabs 02/18/23 03/19/23 Rx ciprofloxacin HCl 0.3 % eye 1 applic ophthalmic (eye) TID #0 02/18/23 03/19/23 Rx ointment (Ciloxan) grams dextroamphetamine-amphetamine 10 1 tab PO TID 02/18/23 03/19/23 History mg tablet guaifenesin 600 mg tablet, 600 mg PO Q12 PRN congestion #0 02/18/23 03/19/23 Rx extended release 12 hr (Mucinex) tabs tramadol 50 mg tablet 50 mg PO Q6H PRN #0 tabs 02/18/23 03/19/23 Rx umeclidinium 62.5 mcg-vilanterol 1 inh inhalation DAILY 03/15/23 03/19/23 History 25 mcg/actuation powdr for inhalation (Anoro Ellipta) L.acidop,casei,lactis,rham-B.lact,marva 2 cap PO DAILY #60 caps 03/18/23 03/19/23 Rx 625 mg (10 billion cell) capsule (Advanced Probiotic) ciprofloxacin HCl 250 mg tablet 250 mg PO BID #6 tabs 03/18/23 03/19/23 Rx Patient History Medical History Bacteremia Bipolar disorder C. 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 F/U CT recommended 3-6 months Schizophrenia Vitamin D deficiency Surgical History History of appendectomy History of shoulder surgery History of total hip replacement femur fracture one month later with repair, both in 2007 Status post open reduction and internal fixation (ORIF) of fracture Family History Father Myocardial infarction Mother Colorectal cancer Social History Smoking Status: Former smoker Tobacco Type: Cigarettes Cigarettes Per Day: 18; Second Hand Exposure: No; Do You Dip or Chew Tobacco: No; Tobacco Cessation Education Requested by Patient: No Hx Alcohol Use: No Hx Substance Use: No Preferred Language: Panamanian Communication Ability: Effective Communication Ability Comment: 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 Prn Required: No Beliefs That Will Affect Care: None marital status: Current Living Situation: Spouse Current Living Situation Comment: Lives with Other Information That Helps Us Care for You: No Feels Safe at Home: Yes Safety Concerns: Feels Safe At This Time Assistive Devices: Cane, Walker and Wheelchair Review of Systems Review of Systems: All systems reviewed & are unremarkable except as noted in HPI & below Physical Exam Constitutional: WD/WN, vitals as above + ill appearing (Chronic); no acute distress Eyes: + anicteric sclerae Respiratory: normal respiratory effort, lungs clear to auscultation Cardiovascular: RRR, no murmur, no edema Gastrointestinal (Abdomen): normal bowel sounds, soft, nontender, no hepatosplenomegaly Skin: no rashes, warm and dry Psychiatric: A+Ox3, euthymic affect Results & Data Vital Signs (Past 12 Hours) Vital Signs Temp Pulse Resp BP Pulse Ox O2 Del Method 03/20/23 08:00 Room Air 03/20/23 07:33 36.4 C L 92 H 14 127/76 97 Room Air PG Care Time/CCT Total # of Minutes Spent Total Time Spent with Patient: Total time spent is greater than 50% in coordination of care (as documented) at patient's floor/unit and/or counseling patient: Coding Level of Care Code 51773 IN/OBS CONSULT LVL 4,60M Diagnoses Dislocation of right hip S73.004A Cirrhosis K74.60
--- NOTE | 2023-03-20 14:07 | Hospitalist Progress Note ---
Date of Service March 20, 2023 Assessment & Plan (1) Dislocation of right hip: Plan: Patient presenting from home with reports of right hip pain and suspected dislocation after standing up from the couch. Right hip dislocation Left pelvic ring and left proximal femoral periprosthetic fractures Secondary to Fall --H/O Right subcapital femoral neck fracture 02/15/2023 s/p repair, H/O nondisplaced periprosthetic left hip fracture 03/15/2023 treated nonsurgically --Right Hip CT: Recent reduction of the right hip arthroplasty acetabular cup. Intra-articular loose bodies within the femoral acetabular joint measuring up to 1.4 cm are suggestive of probable tiny acetabular cortical fracture fragments, donor sites not definitively seen. This prohibits the acetabular cup from adequately seating within the [place] acetabulum as described on the recent radiographs. No acute fracture of the right hemipelvis or right femur identified, however evaluation is limited secondary to streak artifact. Large amount of intramuscular hemorrhage within the right gluteal tissues, and right thigh with intrapelvic extension. Fractured hardware of the left femur with periprosthetic fracture is better seen on the comparison studies. --Pelvic X ray: Bilateral hip total joint arthroplasties with superiorly dislocated right femoral head prosthesis. No evidence of acute right hip fracture. ORIF changes of the left femur with fracture cannulated screws again noted. Periprosthetic fracture of the left proximal femur again noted with subtle acute nondisplaced left pelvic ring fracture, unchanged from prior CT. --S/P right hip reduction done in ED -- Pain control Fall precautions Appreciate orthopedic input N.p.o. after midnight for possible surgery tomorrow Acute blood loss anemia Traumatic intramuscular hemorrhage secondary to fall -- Right Hip CT:Recent reduction of the right hip arthroplasty acetabular cup. Intra-articular loose bodies within the femoral acetabular joint measuring up to 1.4 cm are suggestive of probable tiny acetabular cortical fracture fragments, donor sites not definitively seen. This prohibits the acetabular cup from adequately seating within the [place] acetabulum as described on the recent radiographs. No acute fracture of the right hemipelvis or right femur identified, however evaluation is limited secondary to streak artifact. Large amount of intramuscular hemorrhage within the right gluteal tissues, and right thigh with intrapelvic extension. Fractured hardware of the left femur with periprosthetic fracture is better seen on the comparison studies. -- CT Head:Limited exam secondary to positioning. No acute intracranial abnormality or calvarial fracture identified. --FOBT negative -- Monitor H&H and transfuse PRBCs as needed Hold anticoagulation for now Acute metabolic encephalopathy Likely multifactorial--hyperammonemia, medications H/O cirrhosis CT head as above Received lactulose as per Hyperammonemia Mental status seem to be back to baseline (2) UTI (urinary tract infection): Plan: Urine culture from 03/16 grew Enterobacter, Klebsiella Continue ciprofloxacin to complete the course Repeat urine culture pending (3) Hypokalemia: Plan: Hypomagnesemia Hypokalemia Replete electrolytes as needed (4) HTN (hypertension): Plan: Continue HCTZ and metoprolol (5) C. difficile colitis: Plan: History of recurrent C. difficile, on chronic vancomycin suppression (6) Emphysema of lung: Plan: Appears stable (7) Cirrhosis: Plan: Appreciate GI input Monitor (8) Bipolar disorder: (9) Schizophrenia: (10) Depression: Plan: Currently not on any medication for management DVT Px SCDs Re: Hemorrhae Admission and Anticipated Discharge Date Admission Date: March 19, 2023 Subjective Patient is seen and examined at bedside History is limited due to significant hearing impairment If pain is controlled with pain medications Denies any chest pain, dyspnea, dizziness, nausea, abdominal pain CT suggestive of large intramuscular hemorrhage within the right gluteus tissues, fractured hardware of the left femur and testicular cortical fracture segments. Review of Systems Review of Systems: All systems reviewed & are unremarkable except as noted in Subjective Physical Exam Physical Exam: Physical Exam: Vitals signs as noted above General Appearance: Thin, frail, chronic ill-appearing, no apparent distress Head: normocephalic, Atraumatic Eyes: normal inspection, EOMI Neck: supple, Trachea midline Respiratory/Chest: Normal breath sounds, CTA, No accessory muscle use Cardiovascular: S1, S2, No murmur Abdomen/GI:Soft, Non tender, Bowel sounds present Extremities/Musculoskeletal: Neurologic/Psych:AAOX3,+Hearing impairment, left lower extremity shortened when compared to the right. Right hip surgical incision healed, mild erythema. Skin: normal color, warm Results & Data Results & Data Vital Signs (Past 12 Hours) Vital Signs Temp Pulse Resp BP Pulse Ox O2 Del Method 03/20/23 08:00 Room Air 03/20/23 07:33 36.4 C L 92 H 14 127/76 97 Room Air Laboratory Results Short CBC 03/19/23 03/20/23 03/20/23 Range/Units 14:28 07:01 07:59 WBC 12.88 H Cancelled 11.40 H (4.8-10.8) K/ul Hgb 11.2 L Cancelled 8.1 L D (12.0-16.0) g/dl Hct 33.4 L Cancelled 24.3 L (37.0-47.0) % Plt Count 221 Cancelled 245 (130-400) K/uL BMP 03/19/23 03/20/23 14:28 07:01 Sodium 142 138 Potassium 3.2 L 4.6 D Chloride 107 107 Carbon Dioxide 24 24 BUN 19 21 Creatinine 0.58 L 0.61 Glucose 136 H 138 H Calcium 8.8 8.4 L Liver Function 03/19/23 Range/Units 14:28 Total Bilirubin 1.5 H (0.2-1.0) mg/dl AST 42 H (13-39) U/L ALT 18 (7-52) U/L Alkaline Phosphatase 144 H (34-104) U/L Albumin 3.2 L (3.4-5.0) gm/dl Urine 03/20/23 Range/Units 03:00 Urine Color Dark Yellow Urine Appearance Cloudy A (Clear) Urine pH 5.5 (4.5-7.5) Ur Specific Wallace 1.033 H (1.000-1.030) Urine Protein Trace H (Negative) Urine Glucose (UA) Negative (Negative)
[2023-03-20 15:33] LABS: Hematocrit (blood only) 22.8 % (37.0-47.0); Hemoglobin 7.7 g/dl (12.0-16.0)
[2023-03-21] MEDS ORDERED: LORazepam 2 MG/1 ML VIAL IV ONE (08:29)
[2023-03-21 08:43] LABS: Calcium 8.8 mg/dl (8.6-10.3); Creatinine Clr Calc Pharmacy 48.9 ml/min; Est GFR (African American) 58.6 ml/min; Est GFR (Non-African American) 50.6 ml/min; Potassium 4.7 mmol/L (3.5-5.1)
[2023-03-21] MEDS: IRON POLYSACCHARIDE COMPLEX 150 MG CAPSULE PO SCH (08:44)
[2023-03-21] MEDS: POT PHOSPHATE MONOBASIC W/ SOD TAB PO SCH ×4 (08:44→20:18)
[2023-03-21] MEDS: AMPHETAMINE ASP/SULF/DEXTRAMPH 10 MG TAB PO SCH (08:44)
[2023-03-21] MEDS: MAGNESIUM OXIDE 400 MG TAB PO SCH ×2 (08:45→20:17)
[2023-03-21] MEDS: METOPROLOL TARTRATE 100 MG TAB PO SCH ×2 (08:45→20:18)
[2023-03-21] MEDS: POTASSIUM CHLORIDE 10 MEQ TABCR PO SCH (08:45)
[2023-03-21] MEDS: UMECLIDINIUM/VILANTEROL 62.5/25MCG 7 PUFFS/INHALER INH SCH (08:45)
[2023-03-21] MEDS: ADVANCED PROBIOTIC 1250 MG CAPSULE PO SCH (08:45)
[2023-03-21] MEDS: ACETAMINOPHEN 500 MG TAB PO SCH ×2 (08:45→20:17)
[2023-03-21] MEDS ORDERED: LORazepam 2 MG/1 ML VIAL IV STA ×2 (08:57→11:26)
[2023-03-21] MEDS ORDERED: SODIUM CHLORIDE 0.9% 1000ML 1,000 ML IV ONE (09:03)
[2023-03-21] MEDS ORDERED: OPTIRAY 320 500ml IV ONE (09:13)
[2023-03-21 09:22] LABS: Hematocrit (blood only) 24.3 % (37.0-47.0); Hemoglobin 7.9 g/dl (12.0-16.0); Mean Corpuscular Hemoglobin 34.2 pg (25.0-34.0); Mean Corpuscular Hgb Conc 32.5 g/dL (32.0-36.0); Mean Corpuscular Volume 105.2 fL (80.0-100.0); Mean Platelet Volume 10.9 fL (9.4-12.4); Nucleated RBC # (auto) 0.07 K/uL (0-0.12); Nucleated RBC % (auto) 0.3 %; Platelet Count 346 K/uL (130-400); RDW Standard Deviation 70.8 fL (36.4-46.3); Red Blood Count 2.31 M/uL (4.20-5.40); White Blood Count 23.45 K/ul (4.8-10.8)
[2023-03-21 09:35] LABS: BUN Creatinine Ratio 24.4 (10-20); Creatinine Clr Calc Pharmacy 42.9 ml/min; Est GFR (African American) 50.1 ml/min; Est GFR (Non-African American) 43.2 ml/min; Magnesium 2.2 mg/dl (1.7-2.4); Potassium 5.2 mmol/L (3.5-5.1)
[2023-03-21] MEDS ORDERED: STAT IV STA (09:39)
--- NOTE | 2023-03-21 09:39 | CT Scan Report ---
HEAD CT NONCONTRAST CT DOSE: HISTORY: Other mental status. TECHNIQUE: Multiaxial CT images of the head were performed without the use of intravenous contrast. A utomated exposure control was utilized for this study. A dose lowering technique was utilized adheri ng to the principles of ALARA. Comparison: Head CT 03/20/2023. Findings: Suboptimal evaluation due to the motion artifact. The paranasal sinuses and mastoid air ritesh ls are clear. The calvarium and skull base are intact. There is no mass, hematoma, midline shift, acu te infarct. White matter hypodensity is nonspecific but suggestive of microvascular ischemic change. The ventricles and sulci demonstrate mild age-related involutional changes. Impression: Suboptimal evaluation due to the motion artifact. However, no definite acute intracranial abnormality . ACT 112: Negative or not required by law. Electronically signed by: Tyrone Pantoja M.D. 03/21/2023 9:37 AM
[2023-03-21] MEDS ORDERED: SODIUM BICARBONATE 8.4% 75 MEQ in SODIUM CHLORIDE 0.45 % 1,000 ML IV SCH (09:45)
--- NOTE | 2023-03-21 09:45 | CT Scan Report ---
CT ANGIOGRAPHY OF THE CHEST, PULMONARY EMBOLUS PROTOCOL CLINICAL HISTORY: Altered mental status. Evaluate for pulmonary embolus. COMPARISON STUDY: Chest CT February 13, 2023. TECHNIQUE: Following IV administration of 120 mL of Optiray, helical axial images of the chest were o btained utilizing the pulmonary embolus protocol. Maximal intensity projections and sagittal and cor onal reformats were viewed on an independent 3D workstation. IV contrast was administered without co mplication. Automated exposure control was utilized for the study. A dose lowering technique was ut ilized adhering to the principles of ALARA. FINDINGS: This exam is significantly compromised by respiratory motion artifact. No central pulmonar y embolus is identified. Evaluation of the remainder of the pulmonary arteries is nondiagnostic. Note is made of moderate cardiomegaly and coronary calcification. There is no pericardial effusion. There is no definite thoracic aortic dissection. No pneumothorax or pleural effusion is noted. No consolid ation is identified to suggest pneumonia. Moderate emphysema is again noted. Subpleural right upper l obe opacities are unchanged since CT of March 18, 2020 and favor scarring. There are minimal secretio ns within the mainstem bronchi. No thoracic lymphadenopathy. Thoracic spine compression fractures are likely old. Visualized portions of the upper abdomen demonstrate moderate wall thickening of visuali zed portions of the distal transverse colon and splenic flexure of the colon. These findings are bett er depicted on the CT of the abdomen and pelvis which will be reported separately. Upper abdominal co llaterals are also noted. IMPRESSION: 1. Nearly nondiagnostic evaluation of the pulmonary arteries due to motion artifact. No central pulmo nary emboli. Consideration might be given to further evaluation with lower extremity venous Doppler u ltrasound. 2. No consolidation to suggest pneumonia. 3. Moderate emphysema. 4. Wall thickening within the visualized portion of the colon with adjacent stranding. This represent s a nonspecific colitis. Findings better depicted on the CT of the abdomen and pelvis which will be r eported separately. ACT 112: Negative or not required by law. Electronically signed by: Brian Hill M.D. 03/21/2023 9:43 AM
[2023-03-21 10:03] LABS: Anisocytosis Present; Basophils # (auto) 0.04 K/uL (0-0.2); Basophils % (auto) 0.2 %; Echinocytes 2+; Immature Granulocytes # (auto) 0.19 K/uL (0.01-0.20); Immature Granulocytes % (auto) 0.8 %; Lymphocytes # (auto) 0.82 K/uL (1.2-3.4); Lymphocytes % (auto) 3.5 %; Monocytes # (auto) 1.71 K/uL (0.11-0.59); Monocytes % (auto) 7.3 %; Neutrophils # (auto) 20.69 K/uL (1.40-6.50); Neutrophils % (auto) 88.2 %; Polychromasia 1+
--- NOTE | 2023-03-21 10:07 | Progress Notes ---
DATE OF SERVICE: 03/21/2023 Events of the weekend have been noted. I spoke to Dr. Bennett. Upon rounding this morning, it wa s discovered that a code had been called. She underwent a CT scan of the abdomen, pelvis, chest, and head. Head CT showed no acute abnormality. The abdomen and pelvis CT showed that both of her hips are in place. She has had a significant change in her mental status. I reviewed x-rays over the kend. She had a dislocation of the hip, which had an eccentric reduction, which eventually upon re-r eduction had a concentric reduction. There has been a zeyad of bone located within the cotyloid jacob a, which is noted on CT scan. There is a small zeyad of bone located superiorly, but she has a harjit ntric reduction on her CT. It is noted that she has left hemipelvic fracture as well as the left pro ximal periprosthetic fracture. There is no right hemipelvis or periprosthetic fracture noted. Today , on examination, her mental status is profoundly altered. Her eyes are open. She has labored breat nolvia. She does not respond to questions. She does not move her toes upon command or move her left h and. She does, however, have some faint movement to her right hand when asked to move it. There is bruising of the left medial thigh. She is in an abduction pillow. There is good movement of the rig ht hip indicative of a located implant. She does not have any motor or sensory exam. There are palp able DP pulses bilaterally. The nurse had reported altered mental status over the weekend. Some ext raneous pills were found in her possession, which were sent to pharmacy. She is status post a right hip hemiarthroplasty dislocation with an initially eccentric, but eventual ly a concentric reduction. The minor bony abnormalities around the right hip do not require any surg ical intervention. She would need total hip precautions. Hip abduction pillow and possibly either a hip abduction brace or a knee immobilizer once her mental status improves. She has a periprosthetic fracture of her left hip and is nonweightbearing on the left. Given the recent events, it is my opi nion that she is not safe to be at home and would require senior living facility for protection and rehab. She can have a diet. Surgery at this time is not necessary. She does have a hematoma of he r right leg, which is expected after having the dislocation. I do not see or feel anything on the ri ght hip in terms of bruising or tense swelling that would necessitate any operative intervention. We will continue to monitor. Job ID: [id number]
[2023-03-21] MEDS ORDERED: SODIUM CHLORIDE 0.9% 1000ML 500 ML IV ONE (10:42)
--- NOTE | 2023-03-21 10:42 | CT Scan Report ---
ABDOMEN AND PELVIS CT WITHOUT CONTRAST CT DOSE: 2030.79 mGy.cm HISTORY: rectal bleed TECHNIQUE: Multiaxial CT images of the abdomen and pelvis were performed without contrast. A dose lo wering technique was utilized adhering to the principles of ALARA. COMPARISON STUDY: Chest CTA 03/21/2023. Right hip CT 03/20/2023. Left hip CT 03/15/2023. Abdomen and pel vis CT 02/13/2023. FINDINGS: The lung bases are better appreciated on the same day chest CT. Significant motion artifact results in suboptimal evaluation of the abdomen and pelvis. Bilateral total hip arthroplasties are a gain noted. Multiple compression deformities seen within the thoracic and lumbar spine. These are lik juliana chronic. These are similar to the prior study. Endplate irregularity throughout the lumbar spine is also similar to the prior study. Therefore, this is likely chronic. The heart remains mildly enlar ged. There is mild elevation of the left hemidiaphragm, unchanged. Right gluteal and right thigh intr amuscular hematomas are similar to the prior study. There is also presacral hemorrhage again noted. T his measures up to 3 cm in thickness. This remains unchanged. Cirrhotic liver with splenomegaly and m ultiple abdominal varicosities again noted. This is consistent with portal hypertension. The gallblad ajay remains distended. No definite gallbladder wall thickening by CT. The adrenal glands are unremark able. Left-sided nephrolithiasis. No hydronephrosis. No retroperitoneal lymphadenopathy. Moderate abhishek cified plaque within the normal caliber abdominal aorta. The deep pelvic structures are not well visu alized due to metallic artifact from the hip arthroplasties. The bladder is decompressed by Bautista cat heter. Gas within the bladder lumen is likely due to the catheterization. There is mild diffuse circu mferential thickening throughout the majority the colon with pericolonic fat stranding. This is consi stent with a nonspecific colitis. No dilated loops of bowel to suggest an obstruction. IMPRESSION: 1. Mild diffuse circumferential thickening throughout the majority of the colon consistent with a non specific pancolitis. 2. Cirrhotic liver with stigmata of portal hypertension again noted. 3. Right hip intramuscular hematomas and a presacral hematoma are similar to the prior right hip CT. 4. Additional findings as described above. ACT 112: Negative or not required by law. Electronically signed by: Tyrone Pantoja M.D. 03/21/2023 10:40 AM
[2023-03-21 11:04] LABS: Base Excess ABG -5.9 mEq/L (-9-1.8); HCO3 ABG 22 mmol/L (19-24); Oxygen Saturation ABG 98.7 % (90-95); PCO2 ABG 51 mmHg (35-46); PO2 ABG 111 mmHg (80-95); pH ABG 7.24 (7.35-7.45)
[2023-03-21 11:06] LABS: Allen Test Pos (Pos)
--- NOTE | 2023-03-21 11:09 | Neurology Consultation ---
Date of Consultation March 21, 2023 Assessment & Plan (1) Seizure: Plan 63-year-old female with recent right hip hemiarthroplasty last month, complicated by periprosthetic hip fracture and dislocation, now with altered mental status and probable seizure activity observed at bedside this morning. History of cirrhosis, elevated ammonia, no documented history of heavy alcohol use. Although she has a history of bipolar disorder and schizophrenia listed in her medical history, she does not appear to be on any medication for these conditions. She does have a prescription for Adderall which she takes 3 times per day as well as tramadol and Fioricet. There is also some concern regarding ingestion of home medications as nursing found a bag of unidentified pills in her room. As above, I did discuss the case with patient's hospitalist and nurse at bedside this morning. Recommended loading with IV levetiracetam, 2 g. We will continue with 1000 mg IV every 12 hours. Had also recommended acute treatment with lorazepam, 0.5 mg IV x1. EEG to be completed today. Would also like a brain MRI completed when clinically stable. Given recent hip surgery, I do of some concern for acute/subacute stroke as well. I do not think patient's presentation is consistent with hepatic encephalopathy although I see that her ammonia is mildly elevated. Treatment with lactulose seems reasonable. Further, although there is no documentation of heavy alcohol use in this patient, alcohol withdrawal seizures/delirium tremens may not be completely excluded either. Continue supportive medical care. Consider IV thiamine. If the above MRI does reveal evidence of an acute or subacute infarct, would recommend a formal stroke evaluation including CT angiography of the head and neck, echocardiography. History of Present Illness Reason for Consultation: Altered mental status, seizure? Requesting Physician: Dr. Langston Attending Physician: Ricardo Langston MD History of Present Illness The patient is a 63-year-old female who presented to the emergency department March 19, 2023 (2 days ago) with a chief complaint of right hip pain. She underwent right hip hemiarthroplasty with Dr. Teresa, on February 15, 2023. She was discharged from the [facility] after the surgery on February 18. She had presented again to the emergency department on March 15 complaining of mid left thigh pain. She was seen by orthopedics and diagnosed with a periprosthetic hip fracture at that time. She was discharged on March 18. She presented again to the emergency department on March 19 and underwent right hip reduction. To address periprosthetic dislocation, she was seen again by orthopedics at that time as well. She was read[facility] to the [facility], however, at that time with a diagnosis of dislocation of the right hip, urinary tract infection, hypokalemia, hypertension, C. difficile colitis, emphysema, cirrhosis, bipolar disorder, schizophrenia, and depression. She was seen again by orthopedics yesterday regarding the recent dislocation of the right hip. She has been admitted to the medical service. Gastroenterology saw the patient yesterday as well regarding her history of cirrhosis. She was to continue with lactulose therapy, elevated ammonia noted. It looks like a code purple was called this morning regarding this patient. I did review additional nursing notes which indicates patient's declining condition, a bag of unidentified pills was apparently found in her room. In looking at nursing notes further, I also see there was an episode that occurred on March 19, decreased responsiveness, only responding to painful stimulation, improved with administration of Narcan. Patient had a CT of the head completed this morning. I did independently review the images, they appear to be degraded by motion artifact. Nonetheless, there is no evidence of acute hemorrhage or obvious acute process. There is mild generalized atrophy. There is chronic microvascular ischemic disease. I also reviewed the CT of the head completed yesterday. Again, no evidence of hemorrhage or acute process. Mild generalized atrophy. Chronic microvascular ischemic disease. No obvious signs of an evolving infarct on either study. Upon entering the room, patient was observed in bed, her spouse was at bedside. Patient unresponsive, exhibiting focal rhythmic shaking of the left upper limb. Some gaze divergence noted although no gaze preference to either side. Patient nonverbal, unresponsive. Appears to be exhibiting seizure activity, patient's nurse and hospitalist physician, Dr. Langston at bedside. Recommended administration of IV levetiracetam, EEG for suspected seizure activity. Also recommended administration of IV lorazepam. Allergies Allergy/AdvReac Type Severity Reaction Status Date / Time Penicillins Allergy Severe ANAPHYLAXIS Verified 03/15/23 14:57 oxycodone [From Percodan] Allergy Unknown Unknown Verified 03/15/23 14:57 ketorolac [From Toradol] AdvReac Severe Breathing Verified 03/15/23 14:57 difficulty hydrocodone AdvReac Intermediate Nausea Verified 03/15/23 14:57 [From Lorcet (hydrocodone)] rifaximin [From Xifaxan] AdvReac Intermediate Dizzy, Verified 03/15/23 14:57 Fell down ursodiol AdvReac Intermediate Dizzy, Verified 03/15/23 14:57 Fell down Home Medications Medication Instructions Recorded Confirmed Type Acidophilus Lactobacillus 2 cap PO HS 02/14/23 03/19/23 History acetaminophen 300 mg-codeine 30 mg 1 tab PO BID PRN Pain 02/14/23 03/19/23 History tablet acetaminophen 325 mg tablet 350 mg PO QID PRN Pain 02/14/23 03/19/23 History (Tylenol) ascorbic acid (vitamin C) 500 mg 500 mg PO BID 02/14/23 03/19/23 History tablet (Vitamin C) ugexodqefa-wohmxtcmgvcai-fqoyokjy 1 tab PO Q6H PRN Migraine Headache 02/14/23 03/19/23 History 50 mg-325 mg-40 mg tablet calcium carbonate 600 mg-vitamin 1 cap PO BID 02/14/23 03/19/23 History D3 5 mcg (200 unit) capsule (Calcium 600 + D(3)) hydrochlorothiazide 25 mg tablet 12.5 mg PO DAILY 02/14/23 03/19/23 History hydrocortisone 0.25 % topical cream 1 applic topical DIRECTED 02/14/23 03/19/23 History loperamide 2 mg capsule 2 mg PO Q8 PRN Diarrhea 02/14/23 03/19/23 History loratadine 10 mg tablet 10 mg PO DAILY PRN ALLERGIES 02/14/23 03/19/23 History magnesium oxide 400 mg PO BID 02/14/23 03/19/23 History metoprolol tartrate 100 mg tablet 100 mg PO BID 02/14/23 03/19/23 History hmpyaumuvrke-fuexuhvx-umsmcp tablet 1 tab PO DAILY 02/14/23 03/19/23 History ondansetron HCl 4 mg tablet 4 mg PO Q6H PRN Nausea 02/14/23 03/19/23 History polysaccharide iron complex 150 mg 150 mg PO DAILY 02/14/23 03/19/23 History iron capsule (Ferrex) potassium chloride 10 mEq 10 meq PO BID 02/14/23 03/19/23 History capsule,extended release sodium di- and 1 tab PO QID 02/14/23 03/19/23 History monophosphate-potassium phos monobasic 250 mg tablet (I-Bykc-Yuqaqsz) vancomycin 125 mg capsule 125 mg PO QAM 02/14/23 03/19/23 History vitamin B complex 1 tab PO DAILY 02/14/23 03/19/23 History apixaban 2.5 mg tablet (Eliquis) 2.5 mg PO BID #0 tabs 02/18/23 03/19/23 Rx ciprofloxacin HCl 0.3 % eye 1 applic ophthalmic (eye) TID #0 02/18/23 03/19/23 Rx ointment (Ciloxan) grams dextroamphetamine-amphetamine 10 1 tab PO TID 02/18/23 03/19/23 History mg tablet guaifenesin 600 mg tablet, 600 mg PO Q12 PRN congestion #0 02/18/23 03/19/23 Rx extended release 12 hr (Mucinex) tabs tramadol 50 mg tablet 50 mg PO Q6H PRN #0 tabs 02/18/23 03/19/23 Rx umeclidinium 62.5 mcg-vilanterol 1 inh inhalation DAILY 03/15/23 03/19/23 History 25 mcg/actuation powdr for inhalation (Anoro Ellipta) L.acidop,casei,lactis,rham-B.lact,marva 2 cap PO DAILY #60 caps 03/18/23 03/19/23 Rx 625 mg (10 billion cell) capsule (Advanced Probiotic) ciprofloxacin HCl 250 mg tablet 250 mg PO BID #6 tabs 03/18/23 03/19/23 Rx Patient History Medical History Bacteremia Bipolar disorder C. 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 F/U CT recommended 3-6 months Schizophrenia Vitamin D deficiency Surgical History History of appendectomy History of shoulder surgery History of total hip replacement femur fracture one month later with repair, both in 2007 Status post open reduction and internal fixation (ORIF) of fracture Family History Father Myocardial infarction Mother Colorectal cancer Social History Smoking Status: Former smoker Tobacco Type: Cigarettes Cigarettes Per Day: 18; Second Hand Exposure: No; Do You Dip or Chew Tobacco: No; Tobacco Cessation Education Requested by Patient: No Hx Alcohol Use: No Hx Substance Use: No Preferred Language: Kyrgyz Communication Ability: Effective Communication Ability Comment: pt [facility] Door Attendant Required: No Beliefs That Will Affect Care: None marital status: Current Living Situation: Spouse Current Living Situation Comment: Lives with Other Information That Helps Us Care for You: No Feels Safe at Home: Yes Safety Concerns: Feels Safe At This Time Assistive Devices: Cane, Walker and Wheelchair Review of Systems Review of Systems: Unobtainable due to cognitive status and Unobtainable due to reduced consciousness Exam (Neuro) Physical Exam: Limited examination. Patient unresponsive. Eyes opened, some gaze divergence, right eye to the right, no nystagmus, no gaze preference to either side. Mouth slightly open. Pupils equal round and reactive to light, about 3 mm. Blink reflex intact. Patient exhibits intermittent rhythmic shaking of the left upper limb with associated increased tone. Right upper extremity flaccid. Head and neck deviated to the left. No tonic-clonic movements for the lower limbs appreciated. Unable to assess coordination, sensation, deep tendon reflexes, coordination, or other potentially localizing signs on examination at this time. Results & Data Vital Signs (Past 12 Hours) Vital Signs Temp Pulse Resp BP Pulse Ox O2 Del Method 03/21/23 07:25 36.6 C 88 18 149/57 H 98 Room Air Laboratory Results WBC 23.45, hemoglobin 7.9, hematocrit 24.3, MCV 105.2, platelet count 346, sodium 138, potassium 5.2, BUN 32, creatinine 1.31, glucose 123, calcium 9.0, magnesium 2.2, AST 42, ALT 18, ammonia 82, urinalysis suggestive of UTI Diagnostic Findings CT of the head x2 as described above in the HPI. I independently reviewed these images. An electrocardiogram reveals a normal sinus rhythm, 96 bpm. PG Care Time/CCT Total # of Minutes Spent Total Time Spent with Patient: Total time spent is greater than 50% in coordination of care (as documented) at patient's floor/unit and/or counseling patient: 80 minutes Coding Level of Care Code 37559 INT INP/OBS CARE 3/75MIN Diagnoses Seizure R56.9
[2023-03-21 11:15] LABS: Hematocrit (blood only) 22.9 % (37.0-47.0); Hemoglobin 7.5 g/dl (12.0-16.0); Mean Corpuscular Hemoglobin 33.9 pg (25.0-34.0); Mean Corpuscular Hgb Conc 32.8 g/dL (32.0-36.0); Mean Corpuscular Volume 103.6 fL (80.0-100.0); Mean Platelet Volume 10.7 fL (9.4-12.4); Nucleated RBC # (auto) 0.04 K/uL (0-0.12); Nucleated RBC % (auto) 0.2 %; Platelet Count 266 K/uL (130-400); RDW Coefficient of Variation 18.5 % (11.5-14.5); RDW Standard Deviation 68.1 fL (36.4-46.3); Red Blood Count 2.21 M/uL (4.20-5.40); White Blood Count 20.92 K/ul (4.8-10.8)
[2023-03-21] MEDS: AZTREONAM 1,000 MG in DEXTROSE 5% 100 ML IV SCH ×2 (11:19→20:57)
[2023-03-21] MEDS ORDERED: levETIRAcetam 2,000 MG in 0.9 % SODIUM CHLORIDE 100 ML IV STA (11:34)
--- NOTE | 2023-03-21 11:43 | Gastroenterology Progress Note ---
Date of Service March 21, 2023 Assessment & Plan (1) Dislocation of right hip: (2) Cirrhosis: Plan: Pt is a 63 yo female w hx of cirrhosis (MELD 13), initially admitted for R hip dislocation, and hyperammonia levels. This AM had code purple due to change in mental status, was unresponsive but responded to Narcan. A bag of home pills noted under pillow. She is currently awake, but noted gazing updwards, not conversive and not following commands. ? seizure activity possible given upper limbs shaking. CT head, chest w/o acute findings. GI asked to evaluate pt again as she was having rectal bleeding this morning when she had code purple. No more rectal bleeding at this time. Blood ct wo signfinicant drop. CT abd/pelvis w sign of non specific colitis. - Monitor blood ct and transfuse prn - Will cover with PPI IV BID - Lactulose enema instead of PO - Obtain stool cx and Cdiff - F/U urine and blood cx - Antibx coverage per primary team - Neurology consulted, will f/u notes - No plans for endoscopy at this time. Admission and Anticipated Discharge Date Admission Date: March 19, 2023 Supervising Physician Co-Signing Physician Notes Attg add: I reviewed chart and labs. Pt with cirrhosis and portal HTN by imaging, noted to have increased Nh4 on admission yesterday and given lactulose. She became altered with possible seizure and possible overdose this morning. She had small volume rectal bleeding, and colitis on CT this am. - AMS, seizure -- Seizures can rarely be associated with HE, although other causes should be ruled out. Will defer to neuro service. Please consider lactulose therapy as prescribed - should be given by retention enema until pt recovers ability to take pO. - Rectal bleeding is small volume by history. She is anemic, presumably related to brusing from hip relocation, but no indication for csocpy. - Colitis likely related to portal HTN. This is not an indication for Flagyl, nor a likely source of marked leukocytosis. Will defer to primary, but consider d/c Flagyl. - Leukocytosis - per PCP. No ascites on CT, SBP is not in apparent differential. Will sign off, but please reconsult as needed. WIll need GI follow up as out pt, for cirrhosis w/u and management. Subjective Code purple called this AM due to pt's change in mental status, was unresponsive. Given narcan, and she was observed to have shaking of L arm, ? seizure activity. A bag of pills found under her pillow. She was also found to have rectal bleeding this AM during this episode. Review of Systems Review of Systems: Other (Unobtainable due to her mental status ) Physical Exam Constitutional: + ill appearing and + thin Eyes: PERRL, conjunctivae normal, anicteric sclerae Respiratory: Diminished bilateral bases Cardiovascular: RRR, no murmur, no edema Gastrointestinal (Abdomen): soft, hypoactive BS, no signs of grimacing or guarding on palpation Skin: no rashes, warm and dry no jaundice Neurologic: Gazing, not following commands, upper limbs shaking Lymphatic: no lymphedema Results & Data Vital Signs (Past 12 Hours) Vital Signs Temp Pulse Resp BP Pulse Ox O2 Del Method 03/21/23 07:25 36.6 C 88 18 149/57 H 98 Room Air
[2023-03-21] MEDS: metroNIDAZOLE 500 MG/100 ML BAG IV SCH ×2 (12:29→19:43)
--- NOTE | 2023-03-21 13:21 | Electroencephalogram ---
EEG Procedure Note Date of Service March 21, 2023 Start / End Times Start Time: 12:47 PM End Time: 1:07 PM Referring Physician Amadou History Seizure activity, rhythmic shaking left upper limb, altered mental status Home Medication List Medication Instructions Recorded Confirmed Type Acidophilus Lactobacillus 2 cap PO HS 02/14/23 03/19/23 History acetaminophen 300 mg-codeine 30 mg 1 tab PO BID PRN Pain 02/14/23 03/19/23 History tablet acetaminophen 325 mg tablet 350 mg PO QID PRN Pain 02/14/23 03/19/23 History (Tylenol) ascorbic acid (vitamin C) 500 mg 500 mg PO BID 02/14/23 03/19/23 History tablet (Vitamin C) evcrdxndyo-rpvdmfhnnglsl-bdapdbgn 1 tab PO Q6H PRN Migraine Headache 02/14/23 03/19/23 History 50 mg-325 mg-40 mg tablet calcium carbonate 600 mg-vitamin 1 cap PO BID 02/14/23 03/19/23 History D3 5 mcg (200 unit) capsule (Calcium 600 + D(3)) hydrochlorothiazide 25 mg tablet 12.5 mg PO DAILY 02/14/23 03/19/23 History hydrocortisone 0.25 % topical cream 1 applic topical DIRECTED 02/14/23 03/19/23 History loperamide 2 mg capsule 2 mg PO Q8 PRN Diarrhea 02/14/23 03/19/23 History loratadine 10 mg tablet 10 mg PO DAILY PRN ALLERGIES 02/14/23 03/19/23 History magnesium oxide 400 mg PO BID 02/14/23 03/19/23 History metoprolol tartrate 100 mg tablet 100 mg PO BID 02/14/23 03/19/23 History nktcwfoufpuf-xwbuatvt-cpvzyp tablet 1 tab PO DAILY 02/14/23 03/19/23 History ondansetron HCl 4 mg tablet 4 mg PO Q6H PRN Nausea 02/14/23 03/19/23 History polysaccharide iron complex 150 mg 150 mg PO DAILY 02/14/23 03/19/23 History iron capsule (Ferrex) potassium chloride 10 mEq 10 meq PO BID 02/14/23 03/19/23 History capsule,extended release sodium di- and 1 tab PO QID 02/14/23 03/19/23 History monophosphate-potassium phos monobasic 250 mg tablet (Y-Yazw-Ejsdsgb) vancomycin 125 mg capsule 125 mg PO QAM 02/14/23 03/19/23 History vitamin B complex 1 tab PO DAILY 02/14/23 03/19/23 History apixaban 2.5 mg tablet (Eliquis) 2.5 mg PO BID #0 tabs 02/18/23 03/19/23 Rx ciprofloxacin HCl 0.3 % eye 1 applic ophthalmic (eye) TID #0 02/18/23 03/19/23 Rx ointment (Ciloxan) grams dextroamphetamine-amphetamine 10 1 tab PO TID 02/18/23 03/19/23 History mg tablet guaifenesin 600 mg tablet, 600 mg PO Q12 PRN congestion #0 02/18/23 03/19/23 Rx extended release 12 hr (Mucinex) tabs tramadol 50 mg tablet 50 mg PO Q6H PRN #0 tabs 02/18/23 03/19/23 Rx umeclidinium 62.5 mcg-vilanterol 1 inh inhalation DAILY 03/15/23 03/19/23 History 25 mcg/actuation powdr for inhalation (Anoro Ellipta) L.acidop,casei,lactis,rham-B.lact,marva 2 cap PO DAILY #60 caps 03/18/23 03/19/23 Rx 625 mg (10 billion cell) capsule (Advanced Probiotic) ciprofloxacin HCl 250 mg tablet 250 mg PO BID #6 tabs 03/18/23 03/19/23 Rx Inpatient Medication List Acetaminophen (Acetaminophen 500 Mg Tab) 1,000 mg PO BID [facility] Stop: 04/18/23 21:19 Last Admin: 03/21/23 08:45 Dose: Not Given Documented By: [id number] Admin: 03/20/23 21:22 Dose: 1,000 mg Documented By: Admin: 03/20/23 07:55 Dose: 1,000 mg Documented By: [id number] Admin: 03/19/23 21:47 Dose: 1,000 mg Documented By: GAGE Amphetamine/Dextroamphetamine (Amphetamine Asp/Sulf/Dextramph 10 Mg Tab) 10 mg PO TID [facility] Stop: 04/18/23 20:59 Last Admin: 03/21/23 08:44 Dose: Not Given Documented By: [id number] Admin: 03/20/23 21:25 Dose: 10 mg Documented By: Admin: 03/20/23 12:51 Dose: Not Given Documented By: [id number] Admin: 03/20/23 10:20 Dose: 10 mg Documented By: [id number] Admin: 03/19/23 21:49 Dose: Not Given Documented By: GAGE Heparin Sodium (Porcine) (Heparin Sod 5,000 Unit/0.5 Ml Vial) 5,000 units SQ Q8 [facility] Stop: 04/18/23 21:59 Last Admin: 03/19/23 22:42 Dose: 5,000 units Documented By: GAGE Sodium Bicarbonate 75 meq/ (Sodium Chloride) 1,075 mls @ 75 mls/hr IV .[id number] [facility] Stop: 04/20/23 09:44 Last Infusion: 03/21/23 12:28 Dose: 75 mls/hr Documented By: Infusion: 03/21/23 12:11 Dose: 0 mls/hr Documented By: Admin: 03/21/23 11:19 Dose: 75 mls/hr Documented By: CHRISTOPHER Aztreonam 1,000 mg/ Dextrose 110 mls @ 100 mls/hr IV Q8H [facility]; Protocol Stop: 03/31/23 09:59 Last Infusion: 03/21/23 12:25 Dose: 0 mls/hr Documented By: Admin: 03/21/23 11:19 Dose: 100 mls/hr Documented By: CHRISTOPHER Metronidazole (Flagyl) 500 mg in 100 mls @ 100 mls/hr IV Q8H [facility] Stop: 03/31/23 09:59 Last Admin: 03/21/23 12:29 Dose: 100 mls/hr Documented By: CHRISTOPHER Lactobacillus Acidophilus (Advanced Probiotic 1250 Mg Capsule) 2 cap PO DAILY [facility] Stop: 04/19/23 08:59 Last Admin: 03/21/23 08:45 Dose: Not Given Documented By: [id number] Admin: 03/20/23 07:56 Dose: 2 cap Documented By: [id number] Lactulose (Lactulose Syrup 20 Gm/30 Ml Udc) 20 gm PO TID [facility] Stop: 04/19/23 00:19 Last Admin: 03/20/23 12:51 Dose: Not Given Documented By: [id number] Admin: 03/20/23 07:56 Dose: 20 gm Documented By: [id number] Admin: 03/20/23 00:53 Dose: 20 gm Documented By: GAGE Magnesium Oxide (Magnesium Oxide 400 Mg Tab) 400 mg PO BID [facility] Stop: 04/18/23 20:59 Last Admin: 03/21/23 08:45 Dose: Not Given Documented By: [id number] Admin: 03/20/23 21:26 Dose: 400 mg Documented By: Admin: 03/20/23 07:56 Dose: 400 mg Documented By: [id number] Admin: 03/19/23 21:51 Dose: Not Given Documented By: GAGE Metoprolol Tartrate (Metoprolol Tartrate 100 Mg Tab) 100 mg PO BID [facility] Stop: 04/18/23 20:59 Last Admin: 03/21/23 08:45 Dose: Not Given Documented By: [id number] Admin: 03/20/23 21:26 Dose: 100 mg Documented By: Admin: 03/20/23 07:56 Dose: 100 mg Documented By: [id number] Admin: 03/19/23 21:49 Dose: 100 mg Documented By: GAGE Miscellaneous (Vancomycin 125 Mg Capsule -- Order Awaiting Action) 1 each N/A QS [facility] Stop: 04/19/23 00:00 Last Admin: 03/21/23 07:22 Dose: Not Given Documented By: [id number] Admin: 03/21/23 00:57 Dose: Not Given Documented By: Admin: 03/20/23 16:31 Dose: Not Given Documented By: [id number] Admin: 03/20/23 07:57 Dose: Not Given Documented By: [id number] Admin: 03/19/23 23:36 Dose: Not Given Documented By: GAGE Ondansetron HCl (Ondansetron Inj 2 Mg/Ml 2 Ml Vial) 4 mg IV Q6H PRN PRN Reason: Nausea Stop: 04/18/23 19:00 Last Admin: 03/20/23 12:48 Dose: 4 mg Documented By: [id number] Polysaccharide Iron Complex (Iron Polysaccharide Complex 150 Mg Capsule) 150 mg PO DAILY [facility] Stop: 04/19/23 08:59 Last Admin: 03/21/23 08:44 Dose: Not Given Documented By: [id number] Admin: 03/20/23 07:56 Dose: 150 mg Documented By: [id number] Potassium Chloride (Potassium Chloride 10 Meq Tabcr) 10 meq PO BID [facility] Stop: 04/18/23 20:59 Last Admin: 03/21/23 08:45 Dose: Not Given Documented By: [id number] Admin: 03/20/23 21:26 Dose: Not Given Documented By: Admin: 03/20/23 07:58 Dose: 10 meq Documented By: [id number] Admin: 03/19/23 21:50 Dose: 10 meq Documented By: GAGE Potassium Phosphate (Pot Phosphate Monobasic W/ Sod Tab) 1 tab PO QID [facility] Stop: 04/18/23 20:59 Last Admin: 03/21/23 12:46 Dose: Not Given Documented By: Admin: 03/21/23 08:44 Dose: Not Given Documented By: [id number] Admin: 03/20/23 21:23 Dose: 1 tab Documented By: Admin: 03/20/23 17:34 Dose: Not Given Documented By: [id number] Admin: 03/20/23 12:46 Dose: Not Given Documented By: [id number] Admin: 03/20/23 07:56 Dose: 1 tab Documented By: [id number] Admin: 03/19/23 21:51 Dose: 1 tab Documented By: GAGE Tramadol HCl (Tramadol Hcl 50 Mg Tablet) 25 - 50 mg PO Q4H PRN PRN Reason: Pain Stop: 04/19/23 00:36 Last Admin: 03/21/23 01:39 Dose: 50 mg Documented By: MISSY Umeclidinium/Vilanterol (Umeclidinium/Vilanterol 62.5/25mcg 7 Puffs/Inhaler) 1 puffs INH DAILY [facility] Stop: 04/19/23 08:59 Last Admin: 03/21/23 08:45 Dose: Not Given Documented By: [id number] Admin: 03/20/23 10:20 Dose: 1 puffs Documented By: [id number] Discontinued Medications Acetaminophen (Acetaminophen 500 Mg Tab) 1,000 mg PO Q8H [facility] Stop: 04/18/23 19:59 Last Admin: 03/19/23 21:36 Dose: Not Given Documented By: GAGE Ciprofloxacin (Ciprofloxacin 250 Mg Tab) 250 mg PO BID [facility] Stop: 03/20/23 21:01 Last Admin: 03/20/23 21:26 Dose: 250 mg Documented By: Admin: 03/20/23 07:56 Dose: 250 mg Documented By: [id number] Admin: 03/19/23 21:49 Dose: 250 mg Documented By: GAGE Sodium Chloride (Nss) 500 mls @ 125 mls/hr IV .Q4H [facility] Stop: 03/19/23 15:29 Last Infusion: 03/19/23 15:33 Dose: 0 mls/hr Documented By: Admin: 03/19/23 11:25 Dose: 125 mls/hr Documented By: IBETH Magnesium Sulfate/Dextrose (Magnesium Sulfate / D5w) 1 gm in 100 mls @ 50 mls/hr IV ONE ONE Stop: 03/19/23 23:14 Last Infusion: 03/20/23 00:45 Dose: 0 mls/hr Documented By: Admin: 03/19/23 22:40 Dose: 50 mls/hr Documented By: GAGE Potassium Chloride/Sodium Chloride (Normal Saline W/20 Meq Kcl) 20 meq in 1,000 mls @ 75 mls/hr IV .[id number] ONE; Protocol Stop: 03/20/23 11:19 Last Infusion: 03/20/23 12:38 Dose: 75 mls/hr Documented By: [id number] Admin: 03/19/23 22:39 Dose: 75 mls/hr Documented By: GAGE Sodium Chloride (Nss 1000ml) 1,000 mls @ 80 mls/hr IV .[id number] ONE Stop: 03/21/23 21:32 Last Admin: 03/21/23 11:35 Dose: Not Given Documented By: CHRISTOPHER Sodium Chloride (Nss 1000ml) 500 mls @ 999 mls/hr IV .Q31M ONE Stop: 03/21/23 11:12 Last Infusion: 03/21/23 11:50 Dose: 0 mls/hr Documented By: Admin: 03/21/23 11:20 Dose: 999 mls/hr Documented By: CHRISTOPHER Levetiracetam 2,000 mg/ Sodium (Chloride) 120 mls @ 440 mls/hr IV NOW STA Stop: 03/21/23 11:50 Last Infusion: 03/21/23 12:28 Dose: 0 mls/hr Documented By: Admin: 03/21/23 12:11 Dose: 440 mls/hr Documented By: CHRISTOPHER Ioversol (Optiray 320 500ml) 120 ml IV ONCE ONE Stop: 03/21/23 09:14 Last Admin: 03/21/23 09:13 Dose: 120 ml Documented By: DEIDRA Ketamine HCl (Ketamine Hcl Inj 50 Mg/Ml 10 Ml Vial) 30 mg IV NOW STA Stop: 03/19/23 11:17 Last Admin: 03/19/23 11:44 Dose: 20 mg Documented By: JENNIFER Ketamine HCl (Ketamine Hcl Inj 50 Mg/Ml 10 Ml Vial) 80 mg IV NOW ONE Stop: 03/19/23 13:31 Last Admin: 03/19/23 13:30 Dose: 80 mg Documented By: JENNIFER Lorazepam (Lorazepam 2 Mg/1 Ml Vial) 0.5 mg IV ONE ONE Stop: 03/21/23 08:30 Last Admin: 03/21/23 08:39 Dose: 0.5 mg Documented By: [id number] Lorazepam (Lorazepam 2 Mg/1 Ml Vial) 0.5 mg IV NOW STA Stop: 03/21/23 08:58 Last Admin: 03/21/23 08:48 Dose: 0.5 mg Documented By: [id number] Lorazepam (Lorazepam 2 Mg/1 Ml Vial) 0.5 mg IV NOW STA Stop: 03/21/23 11:27 Last Admin: 03/21/23 11:51 Dose: 0.5 mg Documented By: CHRISTOPHER Morphine Sulfate (Morphine Sulfate 4 Mg/Ml 1 Ml Carp\Vial) 4 mg IV NOW STA Stop: 03/19/23 10:50 Last Admin: 03/19/23 11:12 Dose: 4 mg Documented By: IBETH Naloxone HCl (Naloxone Hcl 0.4 Mg/1 Ml Vial/Carp) 0.4 mg IV NOW STA Stop: 03/19/23 20:39 Last Admin: 03/19/23 20:42 Dose: 0.4 mg Documented By: GAGE Ondansetron HCl (Ondansetron Inj 2 Mg/Ml 2 Ml Vial) 4 mg IV NOW STA Stop: 03/19/23 11:17 Last Admin: 03/19/23 11:25 Dose: 4 mg Documented By: IBETH Potassium Chloride (Potassium Chloride Crtab 20 Meq Tabcr) 40 meq PO NOW STA Stop: 03/19/23 17:09 Last Admin: 03/19/23 23:33 Dose: Not Given Documented By: GGAE Potassium Chloride (Potassium Chloride Pwd 20 Meq Pack) 40 meq PO NOW STA Stop: 03/19/23 21:17 Last Admin: 03/19/23 22:41 Dose: 40 meq Documented By: GAGE Propofol (Propofol Iv Emulsion 10 Mg/Ml 20 Ml Vial) 70 mg IV NOW ONE Stop: 03/19/23 13:31 Last Admin: 03/19/23 13:30 Dose: 70 mg Documented By: JENNIFER Co-signed By: ASHLEE Tramadol HCl (Tramadol Hcl 50 Mg Tablet) 25 mg PO Q4H PRN PRN Reason: Pain Stop: 04/18/23 21:17 Last Admin: 03/19/23 22:15 Dose: 25 mg Documented By: GAGE Tramadol HCl (Tramadol Hcl 50 Mg Tablet) 25 mg PO NOW STA Stop: 03/19/23 23:11 Last Admin: 03/19/23 23:33 Dose: 25 mg Documented By: GAGE Description This is a 21 electrode EEG with a single channel dedicated to limited EKG. The electrodes were placed in accordance with the International 10-20 system. The predominant background rhythm consists of poorly organized low to moderate amplitude mixed alpha and theta frequencies. There is intermittent, moderate amplitude right frontal 3-1/2 to 5 Hz slowing, with occasional associated sharps. Photic stimulation unremarkable. Hyperventilation not performed. No sleep changes. Interpretation Abnormal awake/drowsy EEG revealing evidence of a generalized nonspecific encephalopathy as well as right frontal focal slowing and sharps potentially suggesting focal cerebral dysfunction with lowered threshold for seizures. Further correlation with imaging, MRI, recommended. [facility] EEG Procedure Codes Indication for Procedure (1) Seizure: Neurology Neurology: [id number] EEG include record awake & drowsy
--- NOTE | 2023-03-21 14:42 | Communication Note ---
Date of Service: March 21, [address] Langston as since initial consult placed has been seen by neuro and abnormal EEG. Adderall is now held and patient is being loaded on Keppra. Liaison did meet briefly with as patient unable to provide history and he denied a hx of schizophrenia. Patient has hx of possible bipolar II per 2019 note by liaison given overwork, lack of sleep, etc. Had been a patient at [facility]. She has been maintained on ADderall alone for some time. Given LOS ETOH withdrawal would be very unlikely. Adderall is primarily dopaminergic and would generally not contribute to serotonin syndrome or current presentation. If concerns about taking medications from home or another unknown substance could check urine tox. I would defer any restart of Adderall to outpatient provider pending review of nonstimulant options which may be limited given her liver disease. She does not need acutely in hospital and does alter seizure threshhold. Please reconsult if additional concerns arise.
--- NOTE | 2023-03-21 15:21 | Communication Note ---
Date of Service: March 21, 2023 At around 8:45 AM this morning patient had a generalized jerky movements noted by RN. Code purple was called. Staff also noted patient to have a blue family pack which had multiple pill bottles which were later identifiedd to be fioricet, aspirin 325mg, cyclobenzaprine, metoprolol tartrate, ibuprofen 200 mg. It was unsure whether patient could have administered any of these medications. Initial vitals were stable. Patient continued to have tremors, shakiness which were intractable. IV Ativan 0.5 mg was given. Patient also was tachycardic and oxygen sats dropped to 83% and was placed on supplemental oxygen. Another dose of 0.5 mg Ativan was given. Stat blood work, images including CT head, CTA chest, CT abdomen were ordered. CT head showed no acute intracranial abnormality. CT abdomen showed findings suggestive of nonspecific colitis. Patient also had a bloody bowel movement. Patient apparently received tramadol this morning. Discussed with neurologist and consulted gastroenterology as well. Patient was started on Keppra. Updated patient's family at bedside.Blood work suggestive of possible sepsis. Empiric antibiotics were started. IV fluids were given as well. Patient is transferred to PCU for further care. EKG is pending. IV Protonix was will be initiated. EEG requested. Will eventually need MRI brain. Ammonia was noted to be elevated. Lactulose enema to be administered as per GI recommendation. Obtain blood cultures.
--- NOTE | 2023-03-21 15:29 | Hospitalist Progress Note ---
Date of Service March 21, 2023 Assessment & Plan (1) Dislocation of right hip: Plan: Patient presenting from home with reports of right hip pain and suspected dislocation after standing up from the couch. Right hip dislocation Left pelvic ring and left proximal femoral periprosthetic fractures Secondary to Fall --H/O Right subcapital femoral neck fracture 02/15/2023 s/p repair, H/O nondisplaced periprosthetic left hip fracture 03/15/2023 treated nonsurgically --Right Hip CT: Recent reduction of the right hip arthroplasty acetabular cup. Intra-articular loose bodies within the femoral acetabular joint measuring up to 1.4 cm are suggestive of probable tiny acetabular cortical fracture fragments, donor sites not definitively seen. This prohibits the acetabular cup from adequately seating within the [place] acetabulum as described on the recent radiographs. No acute fracture of the right hemipelvis or right femur identified, however evaluation is limited secondary to streak artifact. Large amount of intramuscular hemorrhage within the right gluteal tissues, and right thigh with intrapelvic extension. Fractured hardware of the left femur with periprosthetic fracture is better seen on the comparison studies. --Pelvic X ray: Bilateral hip total joint arthroplasties with superiorly dislocated right femoral head prosthesis. No evidence of acute right hip fracture. ORIF changes of the left femur with fracture cannulated screws again noted. Periprosthetic fracture of the left proximal femur again noted with subtle acute nondisplaced left pelvic ring fracture, unchanged from prior CT. --S/P right hip reduction done in ED -- Pain control Fall precautions Appreciate orthopedic input No plan for surgical intervention currently as per orthopedics. Rectal Bleeding (Noted on 03/21/23) Pancolitis Acute blood loss anemia Acute metabolic acidosis Possible sepsis Lactic acidosis --CT ABD:Mild diffuse circumferential thickening throughout the majority of the colon consistent with a nonspecific pancolitis. Cirrhotic liver with stigmata of portal hypertension again noted. --Blood cultures pending -- Continue IV Protonix twice daily Stool studies to rule out infection given possible pancolitis on CT abdomen Continue empiric antibiotics for pancolitis --Appreciate GI Input Monitor H&H and transfuse as needed --Continue IV fluids with bicarbonate -- Continue empiric antibiotics with Azactam, Flagyl Acute metabolic encephalopathy Seizure Likely multifactorial--hyperammonemia, polypharmacy, Seizures H/O cirrhosis ? Overdose on home medications --CT head:Suboptimal evaluation due to the motion artifact. However, no definite acute intracranial abnormality. --EEG:Abnormal awake/drowsy EEG revealing evidence of a generalized nonspecific encephalopathy as well as right frontal focal slowing and sharps potentially suggesting focal cerebral dysfunction with lowered threshold for seizures. Further correlation with imaging, MRI, recommended. --Continue lactulose for Hyperammonemia --Obtain MRI brain as able -- Appreciate neurology, psychiatry input --Discontinue tramadol --Hold Adderall--plan to hold upon discharge as well --Continue Keppra --Seizure precautions --Urine drug screen ordered Acute respiratory failure with hypoxia Likely secondary to seizure --CTA:Nearly nondiagnostic evaluation of the pulmonary arteries due to motion artifact. No central pulmonary emboli. Consideration might be given to further evaluation with lower extremity venous Doppler ultrasound. No consolidation to suggest pneumonia. Moderate emphysema. Wall thickening within the visualized portion of the colon with adjacent stranding. This represents a nonspecific colitis. Findings better depicted on the CT of the abdomen and pelvis which will be reported separately. -- Continue supplemental oxygen as needed Tachycardia Likely physiological Obtain EKG Resume metoprolol as able Traumatic intramuscular hemorrhage secondary to fall -- Right Hip CT:Recent reduction of the right hip arthroplasty acetabular cup. Intra-articular loose bodies within the femoral acetabular joint measuring up to 1.4 cm are suggestive of probable tiny acetabular cortical fracture fragments, donor sites not definitively seen. This prohibits the acetabular cup from adequately seating within the [place] acetabulum as described on the recent radiographs. No acute fracture of the right hemipelvis or right femur identified, however evaluation is limited secondary to streak artifact. Large amount of intramuscular hemorrhage within the right gluteal tissues, and right thigh with intrapelvic extension. Fractured hardware of the left femur with periprosthetic fracture is better seen on the comparison studies. -- CT Head:Limited exam secondary to positioning. No acute intracranial abnormality or calvarial fracture identified. -- Monitor H&H and transfuse PRBCs as needed Hold anticoagulation for now (2) UTI (urinary tract infection): Plan: Urine culture from 03/16 grew Enterobacter, Klebsiella Completed antibiotic course Repeat urine culture no growth (3) Hypokalemia: Plan: Hypomagnesemia Hypokalemia Replete electrolytes as needed (4) HTN (hypertension): Plan: Continue metoprolol (5) C. difficile colitis: Plan: History of recurrent C. difficile, on chronic vancomycin suppression (6) Emphysema of lung: Plan: Appears stable (7) Cirrhosis: Plan: Appreciate GI input Monitor (8) Bipolar disorder: (9) Schizophrenia: (10) Depression: Plan: Currently not on any medications DVT Px SCDs Re: Hemorrhage Admission and Anticipated Discharge Date Admission Date: March 19, 2023 Subjective Patient is seen and examined at bedside Unable to obtain much history given patient is consciousness Patient had rapid response this morning which was thought to be possible seizure Discussed with neurology Updated patient's family at bedside Review of Systems Review of Systems: Unobtainable due to reduced consciousness Physical Exam 2 Physical Exam: Physical Exam: Vitals signs as noted above General Appearance: Thin, frail, chronic ill-appearing, no apparent distress Head: normocephalic, Atraumatic Eyes: normal inspection, EOMI Neck: supple, Trachea midline Respiratory/Chest: Normal breath sounds, CTA, No accessory muscle use Cardiovascular: S1, S2, No murmur Abdomen/GI:Soft, Non tender, Bowel sounds present Extremities/Musculoskeletal: Neurologic/Psych:confused, tremor, +Hearing impairment, left lower extremity shortened. Right hip surgical incision healed, mild erythema. Skin: normal color, warm Results & Data Results & Data Vital Signs (Past 12 Hours) Vital Signs Temp Pulse Resp BP Pulse Ox O2 Del Method O2 Flow Rate 03/21/23 07:20 Room Air 03/21/23 12:00 37.0 C 144 H 16 137/57 L 100 Nasal Cannula 2 03/21/23 07:25 36.6 C 88 18 149/57 H 98 Room Air Laboratory Results Short CBC 03/20/23 03/21/23 03/21/23 Range/Units 14:44 07:34 08:39 WBC 20.92 H D 23.45 H (4.8-10.8) K/ul Hgb 7.7 L 7.5 L 7.9 L (12.0-16.0) g/dl Hct 22.8 L 22.9 L 24.3 L (37.0-47.0) % Plt Count 266 346 (130-400) K/uL BMP 03/21/23 03/21/23 07:34 08:39 Sodium 137 138 Potassium 4.7 5.2 H Chloride 105 105 Carbon Dioxide 18 L 13 L BUN 31 H 32 H Creatinine 1.15 D 1.31 H Glucose 134 H 123 H Calcium 8.8 9.0
[2023-03-21 16:21] LABS: Calcium 8.4 mg/dl (8.6-10.3); Creatinine Clr Calc Pharmacy 42.9 ml/min; Est GFR (African American) 50.1 ml/min; Est GFR (Non-African American) 43.2 ml/min; Potassium 4.7 mmol/L (3.5-5.1)
[2023-03-21] MEDS: VANCOMYCIN HCL 125 MG/2.5ML SOLN PO SCH (16:23)
[2023-03-21] MEDS: RASPBERRY SYRUP 5 ML UDP PO SCH (16:23)
[2023-03-21] MEDS ORDERED: METOPROLOL TARTRATE 1 MG/ML VIAL IV ONE (16:31)
--- NOTE | 2023-03-21 17:54 | Magnetic Resonance Report ---
Brain MRI WITH AND WITHOUT CONTRAST HISTORY: Seizure TECHNIQUE: Multiplanar multisequence MRI of the brain was performed both before and after the intrave nous administration of contrast. COMPARISON STUDY: Head CT 03/20/2023. FINDINGS: Scattered small foci of restricted diffusion seen within the cortex of the posterior pariet al and occipital lobes as well as the right medial thalamus. There are associated focal areas of incr eased T2 signal at these locations. These favor small acute infarcts. Posterior reversible encephalop athy syndrome could also have a similar appearance if the patient is demonstrating episodes of severe hypertension. Mild atrophy and microvascular ischemic changes are noted. There is no mass, hematoma, midline shift. Questionable slight increased T2 signal within the medial right temporal lobe in comp arison to the left. This best seen on coronal FLAIR image 14. There is mild motion artifact. The benjamin r vascular flow-voids at the skull base are well-maintained. The paranasal sinuses and mastoid air ce lls are clear. No evidence for kennedy matter heterotopia or cortical dysplasia. IMPRESSION: 1. Scattered small foci of restricted diffusion seen within the cortex of the bilateral posterior par ietal and occipital lobes as well as the right medial thalamus. There are associated focal areas of i ncreased T2 signal at these locations. These favor small acute infarcts. Posterior reversible encepha lopathy syndrome could also have a similar appearance if the patient is demonstrating episodes of sev ere hypertension. 2. Questionable slight increased T2 signal within the medial right temporal lobe in comparison to the left. Although indeterminate, this raises the possibility of a seizure focus. ACT 112: Negative or not required by law. Electronically signed by: Tyrone Pantoja M.D. 03/21/2023 5:53 PM
--- NOTE | 2023-03-21 18:18 | Communication Note ---
Date of Service: March 21, 2023 MRI consistent with small acute infarcts. Given active GI bleed today, cannot administer aspirin. Will obtain speech eval. Neurochecks requested. We will check lipid panel, echo, carotid ultrasound. Monitor on telemetry.
[2023-03-21] MEDS: LACTATED RINGER'S 1,000 ML IV SCH (19:43)
[2023-03-21 19:44] LABS: Amphetamines+Metham, Urine Pos (Neg); Barbiturates, Urine Pos (Neg); Benzodiazepine, Urine Pos (Neg); Cocaine, Urine Neg (Neg); MDMA (Ecstacy), Urine Neg (Neg); Methadone, Urine Neg (Neg); Opiate, Urine Pos (Neg); Phencyclidine, Urine Neg (Neg)
[2023-03-21] MEDS ORDERED: levETIRAcetam 1,000 MG in 0.9 % SODIUM CHLORIDE 100 ML IV SCH (21:00)
[2023-03-21] MEDS: PANTOprazole 40 MG in SYRINGE 0 ML IV SCH (21:10)
[2023-03-21] MEDS: levETIRAcetam 750 MG in 0.9 % SODIUM CHLORIDE 100 ML IV SCH (21:10)
[2023-03-21] MEDS ORDERED: METOPROLOL TARTRATE 1 MG/ML VIAL IV STA (22:24)
[2023-03-21 23:26] LABS: Adenovirus F 40/41 PCR Not Detected (NotDetected); Astrovirus PCR Not Detected (NotDetected); Campylobacter PCR Not Detected (NotDetected); Cryptosporidium PCR Not Detected (NotDetected); Cyclospora cayetanensis PCR Not Detected (NotDetected); Entamoeba histolytica PCR Not Detected (NotDetected); Enteroaggregative E.coli(EAEC) Not Detected (NotDetected); Enteropathogenic E.coli (EPEC) Not Detected (NotDetected); Enterotoxigenic E.coli (ETEC) Not Detected (NotDetected); Giardia lamblia PCR Not Detected (NotDetected); Norovirus GI/GII PCR Not Detected (NotDetected); Plesiomonas shigelloides PCR Not Detected (NotDetected); Rotavirus A PCR Not Detected (NotDetected); Salmonella PCR Not Detected (NotDetected); Sapovirus PCR Not Detected (NotDetected); Shiga-like Toxin E.coli (STEC) Not Detected (NotDetected); Shigella/Enteroinvasive E.coli Not Detected (NotDetected); Vibrio cholerae PCR Not Detected (NotDetected); Vibrio species PCR Not Detected (NotDetected); Yersinia enterocolitica PCR Not Detected (NotDetected)
[2023-03-21 23:29] LABS: Hematocrit (blood only) 22.2 % (37.0-47.0); Hemoglobin 7.4 g/dl (12.0-16.0)
[2023-03-22] MEDS ORDERED: SODIUM CHLORIDE 0.9% 250 ML IV PRN ×3 (00:32→20:45)
[2023-03-22] MEDS: AZTREONAM 1,000 MG in DEXTROSE 5% 100 ML IV SCH ×3 (01:11→17:04)
[2023-03-22] MEDS ORDERED: METOPROLOL TARTRATE 1 MG/ML VIAL IV STA ×2 (01:28→04:12)
[2023-03-22] MEDS: metroNIDAZOLE 500 MG/100 ML BAG IV SCH ×3 (02:18→18:12)
[2023-03-22] MEDS ORDERED: ACETAMINOPHEN 1,000 MG/100 ML VIAL IV STA ×2 (02:38→20:44)
[2023-03-22] MEDS ORDERED: ALBUMIN 25% 100 mL 25 GM/100 ML VIAL IV ONE (03:06)
[2023-03-22] MEDS ORDERED: ACETAMINOPHEN 1,000 MG/100 ML VIAL IV PRN (04:07)
[2023-03-22 04:27] LABS: Basophils # (auto) 0.01 K/uL (0-0.2); Basophils % (auto) 0.1 %; Hematocrit (blood only) 21.2 % (37.0-47.0); Immature Granulocytes # (auto) 0.14 K/uL (0.01-0.20); Immature Granulocytes % (auto) 0.8 %; Lymphocytes # (auto) 0.65 K/uL (1.2-3.4); Lymphocytes % (auto) 3.7 %; Mean Corpuscular Hemoglobin 33.5 pg (25.0-34.0); Mean Corpuscular Volume 101.4 fL (80.0-100.0); Mean Platelet Volume 10.4 fL (9.4-12.4); Monocytes # (auto) 1.59 K/uL (0.11-0.59); Monocytes % (auto) 9.2 %; Neutrophils # (auto) 14.98 K/uL (1.40-6.50); Neutrophils % (auto) 86.2 %; Nucleated RBC # (auto) 0.14 K/uL (0-0.12); Nucleated RBC % (auto) 0.8 %; Platelet Count 198 K/uL (130-400); RDW Coefficient of Variation 19.3 % (11.5-14.5); RDW Standard Deviation 67.9 fL (36.4-46.3); Red Blood Count 2.09 M/uL (4.20-5.40); White Blood Count 17.37 K/ul (4.8-10.8)
[2023-03-22 04:58] LABS: Echinocytes 1+; Polychromasia 1+; Tear Drop Cells 1+
[2023-03-22 05:01] LABS: Blood Urine 1+ (Negative)
[2023-03-22 05:02] LABS: Calcium 8.3 mg/dl (8.6-10.3); Magnesium 2.3 mg/dl (1.7-2.4); Potassium 4.7 mmol/L (3.5-5.1)
[2023-03-22 05:08] LABS: BUN Creatinine Ratio 30.1 (10-20); Chol HDL Ratio 2.3 (0-5); Creatinine Clr Calc Pharmacy 45.7 ml/min; Est GFR (African American) 54.1 ml/min; Est GFR (Non-African American) 46.6 ml/min
[2023-03-22 07:02] LABS: Hypersegmented Neutrophils 1+
--- NOTE | 2023-03-22 09:29 | Palliative Care Consultation ---
Date of Consultation March 22, 2023 Assessment & Plan (1) Palliative care by specialist: Patient is lethargic and confused with altered mental status at current baseline. She is unable to provide any HPI or participate in a meaningful discussion about her goals or advance care planning. She does not have dec isional capacity at this time. (2) Advanced care planning/counseling discussion: Patient is currently in the middle of a work-up for her altered mental status with additional imaging pending. Recommend family meeting once all results are in to determine next steps. There is no family present at the time of my evaluation. (3) Right hip pain: (4) Dyspnea and respiratory abnormalities: (5) Periprosthetic hip fracture: (6) Ambulatory dysfunction: (7) Bipolar disorder: (8) Depression: Plan * Altered mental status currently under further evaluation, MRI of the carotids is pending. * Goals of care remain unclear at this time, patient does not have decisional capacity. Family meeting is warranted once all test results are in and finalized. * Please note: I will be out of office for , Dr. Gilbert will be covering. Please call or page care for family meeting and/or urgent needs. * I have updated the primary team. Thank you for allowing us to participate in the ongoing care of this patient. Please don't hesitate to call or page with any additional concerns. Dr. 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 Patient discharged from [facility] yesterday for management of periprosthetic left hip fracture. Patient was advised to go to SNF for rehab however she declined. Patient reports that while she was attempting to stand from the couch this morning, she felt her right hip dislocate. Patient then presented to the ED for further evaluation." PMH: ambulatory dysfunction, CPFE, numerous fractures including hip and tib/fib, pressure ulcers, HTN, liver cirrhosis, bipolar disorder, depression and anxiety, schizophrenia, and chronic recurrent CDiff. Allergies Allergy/AdvReac Type Severity Reaction Status Date / Time Penicillins Allergy Severe ANAPHYLAXIS Verified 03/15/23 14:57 oxycodone [From Percodan] Allergy Unknown Unknown Verified 03/15/23 14:57 ketorolac [From Toradol] AdvReac Severe Breathing Verified 03/15/23 14:57 difficulty hydrocodone AdvReac Intermediate Nausea Verified 03/15/23 14:57 [From Lorcet (hydrocodone)] rifaximin [From Xifaxan] AdvReac Intermediate Dizzy, Verified 03/15/23 14:57 Fell down ursodiol AdvReac Intermediate Dizzy, Verified 03/15/23 14:57 Fell down Home Medications Medication Instructions Recorded Confirmed Type Acidophilus Lactobacillus 2 cap PO HS 02/14/23 03/19/23 History acetaminophen 300 mg-codeine 30 mg 1 tab PO BID PRN Pain 02/14/23 03/19/23 His tory tablet acetaminophen 325 mg tablet 350 mg PO QID PRN Pain 02/14/23 03/19/23 History (Tylenol) ascorbic acid (vitamin C) 500 mg 500 mg PO BID 02/14/23 03/19/23 History tablet (Vitamin C) ddlxkhvqtv-mkvkhijcnazbj-ufyugzii 1 tab PO Q6H PRN Migraine Headache 02/14/23 03/19/23 History 50 mg-325 mg-40 mg tablet calcium carbonate 600 mg-vitamin 1 cap PO BID 02/14/23 03/19/23 History D3 5 mcg (200 unit) capsule (Calcium 600 + D(3)) hydrochlorothiazide 25 mg tablet 12.5 mg PO DAILY 02/14/23 03/19/23 History hydrocortisone 0.25 % topical cream 1 applic topical DIRECTED 02/14/23 03/19/23 History loperamide 2 mg capsule 2 mg PO Q8 PRN Diarrhea 02/14/23 03/19/23 History loratadine 10 mg tablet 10 mg PO DAILY PRN ALLERGIES 02/14/23 03/19/23 History magnesium oxide 400 mg PO BID 02/14/23 03/19/23 History metoprolol tartrate 100 mg tablet 100 mg PO BID 02/14/23 03/19/23 History gxlixbfqfmgy-qyezxgcv-dvcfll tablet 1 tab PO DAILY 02/14/23 03/19/23 History ondansetron HCl 4 mg tablet 4 mg PO Q6H PRN Nausea 02/14/23 03/19/23 History polysaccharide iron complex 150 mg 150 mg PO DAILY 02/14/23 03/19/23 History iron capsule (Ferrex) potassium chloride 10 mEq 10 meq PO BID 02/14/23 03/19/23 History capsule,extended release sodium di- and 1 tab PO QID 02/14/23 03/19/23 History monophosphate-potassium phos monobasic 250 mg tablet (K-Hzzi-Jwnmsyx) vancomycin 125 mg capsule 125 mg PO QAM 02/14/23 03/19/23 History vitamin B complex 1 tab PO DAILY 02/14/23 03/19/23 History apixaban 2.5 mg tablet (Eliquis) 2.5 mg PO BID #0 tabs 02/18/23 03/19/23 Rx ciprofloxacin HCl 0.3 % eye 1 applic ophthalmic (eye) TID #0 02/18/23 03/19/23 Rx ointment (Ciloxan) grams dextroamphetamine-amphetamine 10 1 tab PO TID 02/18/23 03/19/23 History mg tablet guaifenesin 600 mg tablet, 600 mg PO Q12 PRN congestion #0 02/18/23 03/19/23 Rx extended release 12 hr (Mucinex) tabs tramadol 50 mg tablet 50 mg PO Q6H PRN #0 tabs 02/18/23 03/19/23 Rx umeclidinium 62.5 mcg-vilanterol 1 inh inhalation DAILY 03/15/23 03/19/23 History 25 mcg/actuation powdr for inhalation (Anoro Ellipta) L.acidop,casei,lactis,rham-B.lact,marva 2 cap PO DAILY #60 caps 03/18/23 03/19/23 Rx 625 mg (10 billion cell) capsule (Advanced Probiotic) ciprofloxacin HCl 250 mg tablet 250 mg PO BID #6 tabs 03/18/23 03/19/23 Rx Patient History Medical History (Updated 03/22/23 @ 12:23 by Tj Tobar MD) Advanced care planning/counseling discussion Bacteremia Bipolar disorder C. difficile colitis Chronic bronchitis Cirrhosis Combined pulmonary fibrosis and emphysema (CPFE) Depression Dyspnea and respiratory abnormalities Emphysema of lung Based on imaging Fracture of proximal end of left tibia and fibula History of CVA (cerebrovascular accident) Osteomyelitis Osteoporosis Palliative care by specialist Pulmonary nodule 9 mm RML subsolid nodule CT chest 02/29/20. F/U CT recommended 3-6 months Right hip pain Schizophrenia Vitamin D deficiency Surgical History History of appendectomy History of shoulder surgery History of total hip replacement femur fracture one month later with repair, both in 2007 Status post open reduction and internal fixation (ORIF) of fracture Family History Father Myocardial infarction Mother Colorectal cancer Social History Smoking Status: Former smoker Tobacco Type: Cigarettes Cigarettes Per Day: 18; Second Hand Exposure: No; Do You Dip or Chew Tobacco: No; Tobacco Cessation Education Requested by Patient: No Hx Alcohol Use: No Hx Substance Use: No Preferred Language: Divehi Communication Ability: Effective Communication Ability Comment: pt [facility] [employer] Required: No Beliefs That Will Affect Care: None marital status: Current Living Situation: Spouse Current Living Situation Comment: Lives with Other Information That Helps Us Care for You: No Feels Safe at Home: Yes Safety Concerns: Feels Safe At This Time Assistive Devices: Cane, Walker and Wheelchair Review of Systems Review of Systems: Unobtainable due to mental health condition and Unobtainable due to cognitive status Physical Exam Constitutional: + ill appearing, + altered mental status and + lethargic Eyes: PERRL ENMT: Mouth: + poor dentition Neck: normal visual inspection and trachea midline Respiratory: normal respiratory effort and symmetric chest movement Auscultation: + diminished lung sounds and + rhonchi Cardiovascular: Rate/Rhythm: + irregularly irregular Gastrointestinal (Abdomen): softly distended, bowel sounds diminished Musculoskeletal: generalized weakness, kyphotic changes noted to upper spine Skin: + turgor decreased, + skin tightening, + dry skin and + pallor Neurologic: + confused Speech / Cognition: + abnormal speech Motor/Sensory: + abnormal movement lethargy, unable to consistently follow commands, lee snot answer questions, speech is somewhat wet and garbled Results & Data Vital Signs (Past 12 Hours) Vital Signs Temp Pulse Pulse Pulse Resp BP BP 03/22/23 08:06 37.1 C 140 H 17 150/71 H 03/22/23 05:10 36.9 C 19 03/22/23 05:07 144 H 135/64 03/22/23 03:48 37.3 C 140 H 140 H 18 130/59 L 03/22/23 02:56 39 C H 139 H 20 149/71 H 03/22/23 02:27 38.2 C H 138 H 20 153/71 H 03/22/23 01:57 37.2 C 126 H 18 152/72 H 03/22/23 01:54 146 H 136/60 03/22/23 01:42 37 C 144 H 18 138/59 L 03/22/23 01:28 36.9 C 143 H 16 114/70 03/22/23 01:23 36.9 C 150 H 17 150/67 H 03/21/23 22:01 138 H 03/21/23 22:35 139 H 146/70 H 03/21/23 22:24 36.7 C 132 H 19 BP Pulse Ox O2 Del Method O2 Flow Rate 03/22/23 08:06 96 Room Air 03/22/23 05:10 96 Room Air 03/22/23 05:07 03/22/23 03:48 96 Room Air 03/22/23 02:56 98 Nasal Cannula 1 03/22/23 02:27 97 1 03/22/23 01:57 97 1 03/22/23 01:54 03/22/23 01:42 97 1 03/22/23 01:28 98 1 03/22/23 01:23 98 1 03/21/23 22:01 03/21/23 22:35 03/21/23 22:24 148/66 H 98 Nasal Cannula 1 Laboratory Results Data reviewed Diagnostic Findings Data reviewed CT head did not suggest any evidence of an acute stroke. MRI brain also did not find evidence of a stroke although there was concern for a possible seizure focus. PG Care Time/CCT Total # of Minutes Spent Total Time Spent: 60 Total Time Spent with Patient: Total time spent is greater than 50% in coordination of care (as documented) at patient's floor/unit and/or counseling patient: [place] [address] IN/OBS CONSULT LVL 5,80M Patient Type New History Comprehensive Exam Comprehensive Medical Decision Making High Complexity Diagnoses Palliative care by specialist Z51.5 Advanced care planning/counseling discussion Z71.89 Right hip pain M25.551 Dyspnea and respiratory abnormalities R06.00; R06.89 Periprosthetic hip fracture M97.8XXA; Z96.649 Ambulatory dysfunction R26.2 Bipolar disorder F31.9 Depression F32.9
[2023-03-22] MEDS ORDERED: LACTULOSE 200GM/700ML WTR ENEMA PR SCH (09:30)
--- NOTE | 2023-03-22 09:32 | Orthopedic Progress Note ---
Date of Service March 22, 2023 Assessment & Plan (1) Dislocation of right hip: Plan: -Maintain abduction pillow and posterior hip precautions, consider hip brace/knee immobilizer once mental status improves -Pain control per primary services -PT/OT maintaining hip precautions and abduction pillow while supine in bed. When mental status improves and ambulatory weightbearing as tolerated on right lower extremity and nonweightbearing on left lower extremity -Patient required blood transfusion anticoagulation held at this time per primary resume once patient stable and primary is agreeable to this -Recommend once medically stable transition to SNF for rehabilitation Present on Admission?: Yes Admission and Anticipated Discharge Date Admission Date: March 19, 2023 Subjective Patient is a 63-year-old female who is a known patient to Dr. Ogden. She has since been moved to another floor. She was seen bedside this AM. Upon entering the room patient is awake with eyes opened with head extended looking upward. Mouth is open.. She is able to talk some however is not directly answering questions when prompted. Her breathing is labored. Review of Systems Review of Systems: Unobtainable due to cognitive status Physical Exam Physical Exam: General. Patient's eyes are open and talking some however is not answering questions when prompted very hard of hearing Musculoskeletal: Left upper extremity is edematous propped on pillows does not follow commands to move arm or fingers. Bilateral lower extremities show no deformity with abduction pillow between legs. Does not follow commands to move ankles or bilateral lower extremities. Dorsal pedis pulses 2 Results & Data Vital Signs (Past 12 Hours) Vital Signs Temp Pulse Pulse Pulse Resp BP BP 03/22/23 08:06 37.1 C 140 H 17 150/71 H 03/22/23 05:10 36.9 C 19 03/22/23 05:07 144 H 135/64 03/22/23 03:48 37.3 C 140 H 140 H 18 130/59 L 03/22/23 02:56 39 C H 139 H 20 149/71 H 03/22/23 02:27 38.2 C H 138 H 20 153/71 H 03/22/23 01:57 37.2 C 126 H 18 152/72 H 03/22/23 01:54 146 H 136/60 03/22/23 01:42 37 C 144 H 18 138/59 L 03/22/23 01:28 36.9 C 143 H 16 114/70 03/22/23 01:23 36.9 C 150 H 17 150/67 H 03/21/23 22:01 138 H 03/21/23 22:35 139 H 146/70 H 03/21/23 22:24 36.7 C 132 H 19 BP Pulse Ox O2 Del Method O2 Flow Rate 03/22/23 08:06 96 Room Air 03/22/23 05:10 96 Room Air 03/22/23 05:07 03/22/23 03:48 96 Room Air 03/22/23 02:56 98 Nasal Cannula 1 03/22/23 02:27 97 1 03/22/23 01:57 97 1 03/22/23 01:54 03/22/23 01:42 97 1 03/22/23 01:28 98 1 03/22/23 01:23 98 1 03/21/23 22:01 03/21/23 22:35 03/21/23 22:24 148/66 H 98 Nasal Cannula 1 Laboratory Results 03/22/23 03/22/23 03/22/23 Range/Units 04:42 03:45 03:45 WBC (4.8-10.8) K/ul RBC (4.20-5.40) M/uL Hgb (12.0-16.0) g/dl Hct (37.0-47.0) % MCV (80.0-100.0) fL MCH (25.0-34.0) pg MCHC (32.0-36.0) g/dL RDW Std Deviation (36.4-46.3) fL RDW Coeff of Dewayne (11.5-14.5) % Plt Count (130-400) K/uL MPV (9.4-12.4) fL Immature Gran % (Auto) % Neut % (Auto) % Lymph % (Auto) % [place] % (Auto) % Eos % (Auto) % Baso % (Auto) % Neut # (Auto) (1.40-6.50) K/uL Lymph # (Auto) (1.2-3.4) K/uL [place] # (Auto) (0.11-0.59) K/uL Eos # (Auto) (0-0.50) K/uL Baso # (Auto) (0-0.2) K/uL Immature Gran # (Auto) (0.01-0.20) K/uL Absolute Nucleated RBC (0-0.12) K/uL Nucleated RBC % (auto) % Hypersegmented Neuts Polychromasia Anisocytosis Tear Drop Cells Echinocytes ABG pH (7.35-7.45) ABG pCO2 (35-46) mmHg ABG pO2 (80-95) mmHg ABG HCO3 (19-24) mmol/L ABG O2 Saturation (90-95) % ABG Base Excess (-9-1.8) mEq/L Alex Test (Pos) Oxygen Given Sodium (136-145) mmol/L Potassium (3.5-5.1) mmol/L Chloride (98-107) mmol/L Carbon Dioxide (21-32) mmol/L Anion Gap (3-11) BUN (6-23) mg/dl Creatinine (0.6-1.2) mg/dl Est Cr Clr Drug Dosing ml/min Est GFR ( Amer) ml/min Est GFR (Non-Af Amer) ml/min BUN/Creatinine Ratio (10-20) Glucose (70-99(Fasting)) mg/dl Lactate 1.7 (0.4-2.0) mmol/L Calcium (8.6-10.3) mg/dl Magnesium (1.7-2.4) mg/dl Ammonia (18-72) umol/L Triglycerides (0-150) mg/dl Cholesterol (0-200) mg/dl LDL Cholesterol, Calc mg/dl VLDL Cholesterol, Calc (0-30) mg/dl HDL Cholesterol mg/dl Cholesterol/HDL Ratio (0-5) Procalcitonin (0-0.5) ng/ml Prolactin ng/ml Urine Blood 1+ H (Negative) Urine RBC (Auto) 5-10 H (0-4) /hpf Stl C. cayetanensis PCR (NotDetected) Stool Rotavirus A PCR (NotDetected) Stl Adenov F 40/41 PCR (NotDetected) Stool Astrovirus (PCR) (NotDetected) Stool Campylobacter PCR (NotDetected) Stl C. diff Tox B Gene (Neg) Stool Cryptosporidium PCR (NotDetected) Stl E.coli Shiga Tox PCR (NotDetected) Stl Enterotoxigenic E PCR (NotDetected) Stool EPEC (PCR) (NotDetected) Stool EAEC (PCR) (NotDetected) Stl E. histolytica PCR (NotDetected) Stool Giardia Lamblia PCR (NotDetected) Stool Salmonella PCR (NotDetected) Stool Sapovirus (PCR) (NotDetected) Stl P. shigelloides PCR (NotDetected) Stl Shigella/EIEC PCR (NotDetected) St Y.enterocolitica PCR (NotDetected) Stool Vibrio (PCR) (NotDetected) Stl Vibrio cholerae PCR (NotDetected) Stl Norovirus GI/GII PCR (NotDetected) Urine Butalbital Urine Opiates Screen (Neg) U Codeine Confrm GC/MS Ur Morphine (GC/MS) Ur Hydrocodone (GC/MS) Ur Norhydrocodone Ur Noroxycodone Urine Oxycodone (GC/MS) U Oxymorphone GC/MS Ur Methadone, Qual (Neg) Ur Hydromorphone (GC/MS) Acetaminophen (10-30) ug/ml Urine Barbiturates (Neg) Ur Phencyclidine (PCP) (Neg) U Amphetamines Confirm U Amphetamin/Meth Scrn (Neg) U Methamphetamin Confrm MDMA (Ecstasy) Screen (Neg) Urine Amobarbital Urine Pentobarbital Urine Phenobarbital Urine Secobarbital U OH-Alprazolam Confrm U Benzodiazepines Scrn (Neg) 7-Amino Clonazepam Ur Nordiazepam Confirm U OH-ethylflurazepam U Lorazepam Cnf GC/MS U Oxazepam Confm GC/MS Ur Temazepam Confirm U OH-Triazolam Confirm U OH-Midazolam Confirm Ur Cocaine Metabolite (Neg) U Marijuana (THC) Screen (Neg) Drug Screen Comment Blood Type Antibody Screen Crossmatch Transfusion React Date 03/22/23 Transfusion React Time 0227 Tx React Symptoms FEVER Reaction Clerical Check None Found Lab Clerical Err Check None Found React Component Return PCLR Volume Returned 200ML Pre-Trans Blood Type O POSITIVE Pre-Trans Vis Hemolysis No Pre-Trans CRISTHIAN Negative (Negative) Pre-Trans CRISTHIAN IgG Neg (Negative) Pre-Trans CRISTHIAN Poly Neg (Negative) Pre-Trans CRISTHIAN C3b, C3d Neg (Negative) Post-Trans Blood Type O POSITIVE Post-Tx Visible Hemolys No Post-Trans CRISTHIAN Negative (Negative) Post-Trans CRISTHIAN IgG Neg (Negative) Post-Trans CRISTHIAN Poly Neg (Negative) Post-Trans CRISTHIAN C3b, C3d Neg (Negative) Post-Trans Ur Hemoglobin 1+, 5-10 CELLS Reaction Path Interpret Transfusion Serv Com Pending 03/22/23 03/22/23 03/22/23 Range/Units 03:45 03:45 03:45 WBC 17.37 H (4.8-10.8) K/ul RBC 2.09 L (4.20-5.40) M/uL Hgb 7.0 L (12.0-16.0) g/dl Hct 21.2 L (37.0-47.0) % MCV 101.4 H (80.0-100.0) fL MCH 33.5 (25.0-34.0) pg MCHC 33.0 (32.0-36.0) g/dL RDW Std Deviation 67.9 H (36.4-46.3) fL RDW Coeff of Dewayne 19.3 H (11.5-14.5) % Plt Count 198 (130-400) K/uL MPV 10.4 (9.4-12.4) fL Immature Gran % (Auto) 0.8 % Neut % (Auto) 86.2 % Lymph % (Auto) 3.7 % [place] % (Auto) 9.2 % Eos % (Auto) 0.0 % Baso % (Auto) 0.1 % Neut # (Auto) 14.98 H (1.40-6.50) K/uL Lymph # (Auto) 0.65 L (1.2-3.4) K/uL [place] # (Auto) 1.59 H (0.11-0.59) K/uL Eos # (Auto) 0.00 (0-0.50) K/uL Baso # (Auto) 0.01 (0-0.2) K/uL Immature Gran # (Auto) 0.14 (0.01-0.20) K/uL Absolute Nucleated RBC 0.14 H (0-0.12) K/uL Nucleated RBC % (auto) 0.8 % Hypersegmented Neuts 1+ Polychromasia 1+ Anisocytosis Tear Drop Cells 1+ Echinocytes 1+ ABG pH (7.35-7.45) ABG pCO2 (35-46) mmHg ABG pO2 (80-95) mmHg ABG HCO3 (19-24) mmol/L ABG O2 Saturation (90-95) % ABG Base Excess (-9-1.8) mEq/L Alex Test (Pos) Oxygen Given Sodium 139 (136-145) mmol/L Potassium 4.7 (3.5-5.1) mmol/L Chloride 108 H (98-107) mmol/L Carbon Dioxide 21 (21-32) mmol/L Anion Gap 10 (3-11) BUN 37 H (6-23) mg/dl Creatinine 1.23 H (0.6-1.2) mg/dl Est Cr Clr Drug Dosing 45.7 ml/min Est GFR ( Amer) 54.1 ml/min Est GFR (Non-Af Amer) 46.6 ml/min BUN/Creatinine Ratio 30.1 H (10-20) Glucose 122 H (70-99(Fasting)) mg/dl Lactate (0.4-2.0) mmol/L Calcium 8.3 L (8.6-10.3) mg/dl Magnesium 2.3 (1.7-2.4) mg/dl Ammonia 62.0 (18-72) umol/L Triglycerides 63 (0-150) mg/dl Cholesterol 90 (0-200) mg/dl LDL Cholesterol, Calc 37 mg/dl VLDL Cholesterol, Calc 13 (0-30) mg/dl HDL Cholesterol 40 mg/dl Cholesterol/HDL Ratio 2.3 (0-5) Procalcitonin (0-0.5) ng/ml Prolactin ng/ml Urine Blood (Negative) Urine RBC (Auto) (0-4) /hpf Stl C. cayetanensis PCR (NotDetected) Stool Rotavirus A PCR (NotDetected) Stl Adenov F 40/41 PCR (NotDetected) Stool Astrovirus (PCR) (NotDetected) Stool Campylobacter PCR (NotDetected) Stl C. diff Tox B Gene (Neg) Stool Cryptosporidium PCR (NotDetected) Stl E.coli Shiga Tox PCR (NotDetected) Stl Enterotoxigenic E PCR (NotDetected) Stool EPEC (PCR) (NotDetected) Stool EAEC (PCR) (NotDetected) Stl E. histolytica PCR (NotDetected) Stool Giardia Lamblia PCR (NotDetected) Stool Salmonella PCR (NotDetected) Stool Sapovirus (PCR) (NotDetected) Stl P. shigelloides PCR (NotDetected) Stl Shigella/EIEC PCR (NotDetected) St Y.enterocolitica PCR (NotDetected) Stool Vibrio (PCR) (NotDetected) Stl Vibrio cholerae PCR (NotDetected) Stl Norovirus GI/GII PCR (NotDetected) Urine Butalbital Urine Opiates Screen (Neg) U Codeine Confrm GC/MS Ur Morphine (GC/MS) Ur Hydrocodone (GC/MS) Ur Norhydrocodone Ur Noroxycodone Urine Oxycodone (GC/MS) U Oxymorphone GC/MS Ur Methadone, Qual (Neg) Ur Hydromorphone (GC/MS) Acetaminophen (10-30) ug/ml Urine Barbiturates (Neg) Ur Phencyclidine (PCP) (Neg) U Amphetamines Confirm U Amphetamin/Meth Scrn (Neg) U Methamphetamin Confrm MDMA (Ecstasy) Screen (Neg) Urine Amobarbital Urine Pentobarbital Urine Phenobarbital Urine Secobarbital U OH-Alprazolam Confrm U Benzodiazepines Scrn (Neg) 7-Amino Clonazepam Ur Nordiazepam Confirm U OH-ethylflurazepam U Lorazepam Cnf GC/MS U Oxazepam Confm GC/MS Ur Temazepam Confirm U OH-Triazolam Confirm U OH-Midazolam Confirm Ur Cocaine Metabolite (Neg) U Marijuana (THC) Screen (Neg) Drug Screen Comment Blood Type Antibody Screen Crossmatch Transfusion React Date Transfusion React Time Tx React Symptoms Reaction Clerical Check Lab Clerical Err Check React Component Return Volume Returned Pre-Trans Blood Type Pre-Trans Vis Hemolysis Pre-Trans CRISTHIAN (Negative) Pre-Trans CRISTHIAN IgG (Negative) Pre-Trans CRISTHIAN Poly (Negative) Pre-Trans CRISTHIAN C3b, C3d (Negative) Post-Trans Blood Type Post-Tx Visible Hemolys Post-Trans CRISTHIAN (Negative) Post-Trans CRISTHIAN IgG (Negative) Post-Trans CRISTHIAN Poly (Negative) Post-Trans CRISTHIAN C3b, C3d (Negative) Post-Trans Ur Hemoglobin Reaction Path Interpret Transfusion Serv Com 03/21/23 03/21/2323 Range/Units Unknown Unknown 23:10 WBC (4.8-10.8) K/ul RBC (4.20-5.40) M/uL Hgb 7.4 L (12.0-16.0) g/dl Hct 22.2 L (37.0-47.0) % MCV (80.0-100.0) fL MCH (25.0-34.0) pg MCHC (32.0-36.0) g/dL RDW Std Deviation (36.4-46.3) fL RDW Coeff of Dewayne (11.5-14.5) % Plt Count (130-400) K/uL MPV (9.4-12.4) fL Immature Gran % (Auto) % Neut % (Auto) % Lymph % (Auto) % [place] % (Auto) % Eos % (Auto) % Baso % (Auto) % Neut # (Auto) (1.40-6.50) K/uL Lymph # (Auto) (1.2-3.4) K/uL [place] # (Auto) (0.11-0.59) K/uL Eos # (Auto) (0-0.50) K/uL Baso # (Auto) (0-0.2) K/uL Immature Gran # (Auto) (0.01-0.20) K/uL Absolute Nucleated RBC (0-0.12) K/uL Nucleated RBC % (auto) % Hypersegmented Neuts Polychromasia Anisocytosis Tear Drop Cells Echinocytes ABG pH (7.35-7.45) ABG pCO2 (35-46) mmHg ABG pO2 (80-95) mmHg ABG HCO3 (19-24) mmol/L ABG O2 Saturation (90-95) % ABG Base Excess (-9-1.8) mEq/L Alex Test (Pos) Oxygen Given Sodium (136-145) mmol/L Potassium (3.5-5.1) mmol/L Chloride (98-107) mmol/L Carbon Dioxide (21-32) mmol/L Anion Gap (3-11) BUN (6-23) mg/dl Creatinine (0.6-1.2) mg/dl Est Cr Clr Drug Dosing ml/min Est GFR ( Amer) ml/min Est GFR (Non-Af Amer) ml/min BUN/Creatinine Ratio (10-20) Glucose (70-99(Fasting)) mg/dl Lactate (0.4-2.0) mmol/L Calcium (8.6-10.3) mg/dl Magnesium (1.7-2.4) mg/dl Ammonia (18-72) umol/L Triglycerides (0-150) mg/dl Cholesterol (0-200) mg/dl LDL Cholesterol, Calc mg/dl VLDL Cholesterol, Calc (0-30) mg/dl HDL Cholesterol mg/dl Cholesterol/HDL Ratio (0-5) Procalcitonin (0-0.5) ng/ml Prolactin ng/ml Urine Blood (Negative) Urine RBC (Auto) (0-4) /hpf Stl C. cayetanensis PCR (NotDetected) Stool Rotavirus A PCR (NotDetected) Stl Adenov F 40/41 PCR (NotDetected) Stool Astrovirus (PCR) (NotDetected) Stool Campylobacter PCR (NotDetected) Stl C. diff Tox B Gene (Neg) Stool Cryptosporidium PCR (NotDetected) Stl E.coli Shiga Tox PCR (NotDetected) Stl Enterotoxigenic E PCR (NotDetected) Stool EPEC (PCR) (NotDetected) Stool EAEC (PCR) (NotDetected) Stl E. histolytica PCR (NotDetected) Stool Giardia Lamblia PCR (NotDetected) Stool Salmonella PCR (NotDetected) Stool Sapovirus (PCR) (NotDetected) Stl P. shigelloides PCR (NotDetected) Stl Shigella/EIEC PCR (NotDetected) St Y.enterocolitica PCR (NotDetected) Stool Vibrio (PCR) (NotDetected) Stl Vibrio cholerae PCR (NotDetected) Stl Norovirus GI/GII PCR (NotDetected) Urine Butalbital Pending Urine Opiates Screen Pos H (Neg) U Codeine Confrm GC/MS Pending Ur Morphine (GC/MS) Pending Ur Hydrocodone (GC/MS) Pending Ur Norhydrocodone Pending Ur Noroxycodone Pending Urine Oxycodone (GC/MS) Pending U Oxymorphone GC/MS Pending Ur Methadone, Qual Neg (Neg) Ur Hydromorphone (GC/MS) Pending Acetaminophen (10-30) ug/ml Urine Barbiturates Pos H (Neg) Ur Phencyclidine (PCP) Neg (Neg) U Amphetamines Confirm Pending U Amphetamin/Meth Scrn Pos H (Neg) U Methamphetamin Confrm Pending MDMA (Ecstasy) Screen Neg (Neg) Urine Amobarbital Pending Urine Pentobarbital Pending Urine Phenobarbital Pending Urine Secobarbital Pending U OH-Alprazolam Confrm Pending U Benzodiazepines Scrn Pos H (Neg) 7-Amino Clonazepam Pending Ur Nordiazepam Confirm Pending U OH-ethylflurazepam Pending U Lorazepam Cnf GC/MS Pending U Oxazepam Confm GC/MS Pending Ur Temazepam Confirm Pending U OH-Triazolam Confirm Pending U OH-Midazolam Confirm Pending Ur Cocaine Metabolite Neg (Neg) U Marijuana (THC) Screen Neg (Neg) Drug Screen Comment Pending Blood Type Antibody Screen Crossmatch Transfusion React Date Transfusion React Time Tx React Symptoms Reaction Clerical Check Lab Clerical Err Check React Component Return Volume Returned Pre-Trans Blood Type Pre-Trans Vis Hemolysis Pre-Trans CRISTHIAN (Negative) Pre-Trans CRISTHIAN IgG (Negative) Pre-Trans CRISTHIAN Poly (Negative) Pre-Trans CRISTHIAN C3b, C3d (Negative) Post-Trans Blood Type Post-Tx Visible Hemolys Post-Trans CRISTHIAN (Negative) Post-Trans CRISTHIAN IgG (Negative) Post-Trans CRISTHIAN Poly (Negative) Post-Trans CRISTHIAN C3b, C3d (Negative) Post-Trans Ur Hemoglobin Reaction Path Interpret Transfusion Serv Com 03/21/23 03/21/23 03/21/23 Range/Units 21:54 21:54 15:47 WBC (4.8-10.8) K/ul RBC (4.20-5.40) M/uL Hgb (12.0-16.0) g/dl Hct (37.0-47.0) % MCV (80.0-100.0) fL MCH (25.0-34.0) pg MCHC (32.0-36.0) g/dL RDW Std Deviation (36.4-46.3) fL RDW Coeff of Dewayne (11.5-14.5) % Plt Count (130-400) K/uL MPV (9.4-12.4) fL Immature Gran % (Auto) % Neut % (Auto) % Lymph % (Auto) % [place] % (Auto) % Eos % (Auto) % Baso % (Auto) % Neut # (Auto) (1.40-6.50) K/uL Lymph # (Auto) (1.2-3.4) K/uL [place] # (Auto) (0.11-0.59) K/uL Eos # (Auto) (0-0.50) K/uL Baso # (Auto) (0-0.2) K/uL Immature Gran # (Auto) (0.01-0.20) K/uL Absolute Nucleated RBC (0-0.12) K/uL Nucleated RBC % (auto) % Hypersegmented Neuts Polychromasia Anisocytosis Tear Drop Cells Echinocytes ABG pH (7.35-7.45) ABG pCO2 (35-46) mmHg ABG pO2 (80-95) mmHg ABG HCO3 (19-24) mmol/L ABG O2 Saturation (90-95) % ABG Base Excess (-9-1.8) mEq/L Alex Test (Pos) Oxygen Given Sodium (136-145) mmol/L Potassium (3.5-5.1) mmol/L Chloride (98-107) mmol/L Carbon Dioxide (21-32) mmol/L Anion Gap (3-11) BUN (6-23) mg/dl Creatinine (0.6-1.2) mg/dl Est Cr Clr Drug Dosing ml/min Est GFR ( Amer) ml/min Est GFR (Non-Af Amer) ml/min BUN/Creatinine Ratio (10-20) Glucose (70-99(Fasting)) mg/dl Lactate (0.4-2.0) mmol/L Calcium (8.6-10.3) mg/dl Magnesium (1.7-2.4) mg/dl Ammonia (18-72) umol/L Triglycerides (0-150) mg/dl Cholesterol (0-200) mg/dl LDL Cholesterol, Calc mg/dl VLDL Cholesterol, Calc (0-30) mg/dl HDL Cholesterol mg/dl Cholesterol/HDL Ratio (0-5) Procalcitonin (0-0.5) ng/ml Prolactin ng/ml Urine Blood (Negative) Urine RBC (Auto) (0-4) /hpf Stl C. cayetanensis PCR Not Detected (NotDetected) Stool Rotavirus A PCR Not Detected (NotDetected) Stl Adenov F 40/41 PCR Not Detected (NotDetected) Stool Astrovirus (PCR) Not Detected (NotDetected) Stool Campylobacter PCR Not Detected (NotDetected) Stl C. diff Tox B Gene Negative Cdiff Gene (Neg) Stool Cryptosporidium PCR Not Detected (NotDetected) Stl E.coli Shiga Tox PCR Not Detected (NotDetected) Stl Enterotoxigenic E PCR Not Detected (NotDetected) Stool EPEC (PCR) Not Detected (NotDetected) Stool EAEC (PCR) Not Detected (NotDetected) Stl E. histolytica PCR Not Detected (NotDetected) Stool Giardia Lamblia PCR Not Detected (NotDetected) Stool Salmonella PCR Not Detected (NotDetected) Stool Sapovirus (PCR) Not Detected (NotDetected) Stl P. shigelloides PCR Not Detected (NotDetected) Stl Shigella/EIEC PCR Not Detected (NotDetected) St Y.enterocolitica PCR Not Detected (NotDetected) Stool Vibrio (PCR) Not Detected (NotDetected) Stl Vibrio cholerae PCR Not Detected (NotDetected) Stl Norovirus GI/GII PCR Not Detected (NotDetected) Urine Butalbital Urine Opiates Screen (Neg) U Codeine Confrm GC/MS Ur Morphine (GC/MS) Ur Hydrocodone (GC/MS) Ur Norhydrocodone Ur Noroxycodone Urine Oxycodone (GC/MS) U Oxymorphone GC/MS Ur Methadone, Qual (Neg) Ur Hydromorphone (GC/MS) Acetaminophen < 3 L (10-30) ug/ml Urine Barbiturates (Neg) Ur Phencyclidine (PCP) (Neg) U Amphetamines Confirm U Amphetamin/Meth Scrn (Neg) U Methamphetamin Confrm MDMA (Ecstasy) Screen (Neg) Urine Amobarbital Urine Pentobarbital Urine Phenobarbital Urine Secobarbital U OH-Alprazolam Confrm U Benzodiazepines Scrn (Neg) 7-Amino Clonazepam Ur Nordiazepam Confirm U OH-ethylflurazepam U Lorazepam Cnf GC/MS U Oxazepam Confm GC/MS Ur Temazepam Confirm U OH-Triazolam Confirm U OH-Midazolam Confirm Ur Cocaine Metabolite (Neg) U Marijuana (THC) Screen (Neg) Drug Screen Comment Blood Type Antibody Screen Crossmatch Transfusion React Date Transfusion React Time Tx React Symptoms Reaction Clerical Check Lab Clerical Err Check React Component Return Volume Returned Pre-Trans Blood Type Pre-Trans Vis Hemolysis Pre-Trans CRISTHIAN (Negative) Pre-Trans CRISTHIAN IgG (Negative) Pre-Trans CRISTHIAN Poly (Negative) Pre-Trans CRISTHIAN C3b, C3d (Negative) Post-Trans Blood Type Post-Tx Visible Hemolys Post-Trans CRISTHIAN (Negative) Post-Trans CRISTHIAN IgG (Negative) Post-Trans CRISTHIAN Poly (Negative) Post-Trans CRISTHIAN C3b, C3d (Negative) Post-Trans Ur Hemoglobin Reaction Path Interpret Transfusion Serv Com 03/21/23 03/21/23 03/21/23 Range/Units 15:47 14:27 11:12 WBC (4.8-10.8) K/ul RBC (4.20-5.40) M/uL Hgb (12.0-16.0) g/dl Hct (37.0-47.0) % MCV (80.0-100.0) fL MCH (25.0-34.0) pg MCHC (32.0-36.0) g/dL RDW Std Deviation (36.4-46.3) fL RDW Coeff of Dewayne (11.5-14.5) % Plt Count (130-400) K/uL MPV (9.4-12.4) fL Immature Gran % (Auto) % Neut % (Auto) % Lymph % (Auto) % [place] % (Auto) % Eos % (Auto) % Baso % (Auto) % Neut # (Auto) (1.40-6.50) K/uL Lymph # (Auto) (1.2-3.4) K/uL [place] # (Auto) (0.11-0.59) K/uL Eos # (Auto) (0-0.50) K/uL Baso # (Auto) (0-0.2) K/uL Immature Gran # (Auto) (0.01-0.20) K/uL Absolute Nucleated RBC (0-0.12) K/uL Nucleated RBC % (auto) % Hypersegmented Neuts Polychromasia Anisocytosis Tear Drop Cells Echinocytes ABG pH (7.35-7.45) ABG pCO2 (35-46) mmHg ABG pO2 (80-95) mmHg ABG HCO3 (19-24) mmol/L ABG O2 Saturation (90-95) % ABG Base Excess (-9-1.8) mEq/L Alex Test (Pos) Oxygen Given Sodium 137 (136-145) mmol/L Potassium 4.7 (3.5-5.1) mmol/L Chloride 105 (98-107) mmol/L Carbon Dioxide 22 (21-32) mmol/L Anion Gap 10 (3-11) BUN 34 H (6-23) mg/dl Creatinine 1.31 H (0.6-1.2) mg/dl Est Cr Clr Drug Dosing 42.9 ml/min Est GFR ( Amer) 50.1 ml/min Est GFR (Non-Af Amer) 43.2 ml/min BUN/Creatinine Ratio 26.0 H (10-20) Glucose 139 H (70-99(Fasting)) mg/dl Lactate 4.3 H* (0.4-2.0) mmol/L Calcium 8.4 L (8.6-10.3) mg/dl Magnesium (1.7-2.4) mg/dl Ammonia (18-72) umol/L Triglycerides (0-150) mg/dl Cholesterol (0-200) mg/dl LDL Cholesterol, Calc mg/dl VLDL Cholesterol, Calc (0-30) mg/dl HDL Cholesterol mg/dl Cholesterol/HDL Ratio (0-5) Procalcitonin (0-0.5) ng/ml Prolactin 12.78 ng/ml Urine Blood (Negative) Urine RBC (Auto) (0-4) /hpf Stl C. cayetanensis PCR (NotDetected) Stool Rotavirus A PCR (NotDetected) Stl Adenov F 40/41 PCR (NotDetected) Stool Astrovirus (PCR) (NotDetected) Stool Campylobacter PCR (NotDetected) Stl C. diff Tox B Gene (Neg) Stool Cryptosporidium PCR (NotDetected) Stl E.coli Shiga Tox PCR (NotDetected) Stl Enterotoxigenic E PCR (NotDetected) Stool EPEC (PCR) (NotDetected) Stool EAEC (PCR) (NotDetected) Stl E. histolytica PCR (NotDetected) Stool Giardia Lamblia PCR (NotDetected) Stool Salmonella PCR (NotDetected) Stool Sapovirus (PCR) (NotDetected) Stl P. shigelloides PCR (NotDetected) Stl Shigella/EIEC PCR (NotDetected) St Y.enterocolitica PCR (NotDetected) Stool Vibrio (PCR) (NotDetected) Stl Vibrio cholerae PCR (NotDetected) Stl Norovirus GI/GII PCR (NotDetected) Urine Butalbital Urine Opiates Screen (Neg) U Codeine Confrm GC/MS Ur Morphine (GC/MS) Ur Hydrocodone (GC/MS) Ur Norhydrocodone Ur Noroxycodone Urine Oxycodone (GC/MS) U Oxymorphone GC/MS Ur Methadone, Qual (Neg) Ur Hydromorphone (GC/MS) Acetaminophen (10-30) ug/ml Urine Barbiturates (Neg) Ur Phencyclidine (PCP) (Neg) U Amphetamines Confirm U Amphetamin/Meth Scrn (Neg) U Methamphetamin Confrm MDMA (Ecstasy) Screen (Neg) Urine Amobarbital Urine Pentobarbital Urine Phenobarbital Urine Secobarbital U OH-Alprazolam Confrm U Benzodiazepines Scrn (Neg) 7-Amino Clonazepam Ur Nordiazepam Confirm U OH-ethylflurazepam U Lorazepam Cnf GC/MS U Oxazepam Confm GC/MS Ur Temazepam Confirm U OH-Triazolam Confirm U OH-Midazolam Confirm Ur Cocaine Metabolite (Neg) U Marijuana (THC) Screen (Neg) Drug Screen Comment Blood Type Antibody Screen Crossmatch Transfusion React Date Transfusion React Time Tx React Symptoms Reaction Clerical Check Lab Clerical Err Check React Component Return Volume Returned Pre-Trans Blood Type Pre-Trans Vis Hemolysis Pre-Trans CRISTHIAN (Negative) Pre-Trans CRISTHIAN IgG (Negative) Pre-Trans CRISTHIAN Poly (Negative) Pre-Trans CRISTHIAN C3b, C3d (Negative) Post-Trans Blood Type Post-Tx Visible Hemolys Post-Trans CRISTHIAN (Negative) Post-Trans CRISTHIAN IgG (Negative) Post-Trans CRISTHIAN Poly (Negative) Post-Trans CRISTHIAN C3b, C3d (Negative) Post-Trans Ur Hemoglobin Reaction Path Interpret Transfusion Serv Com 03/21/23 03/21/23 03/21/23 Range/Units 11:12 11:12 10:58 WBC (4.8-10.8) K/ul RBC (4.20-5.40) M/uL Hgb (12.0-16.0) g/dl Hct (37.0-47.0) % MCV (80.0-100.0) fL MCH (25.0-34.0) pg MCHC (32.0-36.0) g/dL RDW Std Deviation (36.4-46.3) fL RDW Coeff of Dewayne (11.5-14.5) % Plt Count (130-400) K/uL MPV (9.4-12.4) fL Immature Gran % (Auto) % Neut % (Auto) % Lymph % (Auto) % [place] % (Auto) % Eos % (Auto) % Baso % (Auto) % Neut # (Auto) (1.40-6.50) K/uL Lymph # (Auto) (1.2-3.4) K/uL [place] # (Auto) (0.11-0.59) K/uL Eos # (Auto) (0-0.50) K/uL Baso # (Auto) (0-0.2) K/uL Immature Gran # (Auto) (0.01-0.20) K/uL Absolute Nucleated RBC (0-0.12) K/uL Nucleated RBC % (auto) % Hypersegmented Neuts Polychromasia Anisocytosis Tear Drop Cells Echinocytes ABG pH 7.24 L (7.35-7.45) ABG pCO2 51 H (35-46) mmHg ABG pO2 111 H (80-95) mmHg ABG HCO3 22 (19-24) mmol/L ABG O2 Saturation 98.7 H (90-95) % ABG Base Excess -5.9 (-9-1.8) mEq/L Alex Test Pos (Pos) Oxygen Given 2L Sodium (136-145) mmol/L Potassium (3.5-5.1) mmol/L Chloride (98-107) mmol/L Carbon Dioxide (21-32) mmol/L Anion Gap (3-11) BUN (6-23) mg/dl Creatinine (0.6-1.2) mg/dl Est Cr Clr Drug Dosing ml/min Est GFR ( Amer) ml/min Est GFR (Non-Af Amer) ml/min BUN/Creatinine Ratio (10-20) Glucose (70-99(Fasting)) mg/dl Lactate 6.7 H* (0.4-2.0) mmol/L Calcium (8.6-10.3) mg/dl Magnesium (1.7-2.4) mg/dl Ammonia (18-72) umol/L Triglycerides (0-150) mg/dl Cholesterol (0-200) mg/dl LDL Cholesterol, Calc mg/dl VLDL Cholesterol, Calc (0-30) mg/dl HDL Cholesterol mg/dl Cholesterol/HDL Ratio (0-5) Procalcitonin 3.32 H (0-0.5) ng/ml Prolactin ng/ml Urine Blood (Negative) Urine RBC (Auto) (0-4) /hpf Stl C. cayetanensis PCR (NotDetected) Stool Rotavirus A PCR (NotDetected) Stl Adenov F 40/41 PCR (NotDetected) Stool Astrovirus (PCR) (NotDetected) Stool Campylobacter PCR (NotDetected) Stl C. diff Tox B Gene (Neg) Stool Cryptosporidium PCR (NotDetected) Stl E.coli Shiga Tox PCR (NotDetected) Stl Enterotoxigenic E PCR (NotDetected) Stool EPEC (PCR) (NotDetected) Stool EAEC (PCR) (NotDetected) Stl E. histolytica PCR (NotDetected) Stool Giardia Lamblia PCR (NotDetected) Stool Salmonella PCR (NotDetected) Stool Sapovirus (PCR) (NotDetected) Stl P. shigelloides PCR (NotDetected) Stl Shigella/EIEC PCR (NotDetected) St Y.enterocolitica PCR (NotDetected) Stool Vibrio (PCR) (NotDetected) Stl Vibrio cholerae PCR (NotDetected) Stl Norovirus GI/GII PCR (NotDetected) Urine Butalbital Urine Opiates Screen (Neg) U Codeine Confrm GC/MS Ur Morphine (GC/MS) Ur Hydrocodone (GC/MS) Ur Norhydrocodone Ur Noroxycodone Urine Oxycodone (GC/MS) U Oxymorphone GC/MS Ur Methadone, Qual (Neg) Ur Hydromorphone (GC/MS) Acetaminophen (10-30) ug/ml Urine Barbiturates (Neg) Ur Phencyclidine (PCP) (Neg) U Amphetamines Confirm U Amphetamin/Meth Scrn (Neg) U Methamphetamin Confrm MDMA (Ecstasy) Screen (Neg) Urine Amobarbital Urine Pentobarbital Urine Phenobarbital Urine Secobarbital U OH-Alprazolam Confrm U Benzodiazepines Scrn (Neg) 7-Amino Clonazepam Ur Nordiazepam Confirm U OH-ethylflurazepam U Lorazepam Cnf GC/MS U Oxazepam Confm GC/MS Ur Temazepam Confirm U OH-Triazolam Confirm U OH-Midazolam Confirm Ur Cocaine Metabolite (Neg) U Marijuana (THC) Screen (Neg) Drug Screen Comment Blood Type Antibody Screen Crossmatch Transfusion React Date Transfusion React Time Tx React Symptoms Reaction Clerical Check Lab Clerical Err Check React Component Return Volume Returned Pre-Trans Blood Type Pre-Trans Vis Hemolysis Pre-Trans CRISTHIAN (Negative) Pre-Trans CRISTHIAN IgG (Negative) Pre-Trans CRISTHIAN Poly (Negative) Pre-Trans CRISTHIAN C3b, C3d (Negative) Post-Trans Blood Type Post-Tx Visible Hemolys Post-Trans CRISTHIAN (Negative) Post-Trans CRISTHIAN IgG (Negative) Post-Trans CRISTHIAN Poly (Negative) Post-Trans CRISTHIAN C3b, C3d (Negative) Post-Trans Ur Hemoglobin Reaction Path Interpret Transfusion Serv Com 03/21/23 03/21/23 03/21/23 Range/Units 10:15 08:39 08:39 WBC 23.45 H (4.8-10.8) K/ul RBC (4.20-5.40) M/uL Hgb 7.9 L (12.0-16.0) g/dl Hct (37.0-47.0) % MCV 105.2 H (80.0-100.0) fL MCH (25.0-34.0) pg MCHC 32.5 (32.0-36.0) g/dL RDW Std Deviation (36.4-46.3) fL RDW Coeff of Dewanye (11.5-14.5) % Plt Count 346 (130-400) K/uL MPV (9.4-12.4) fL Immature Gran % (Auto) 0.8 % Neut % (Auto) 88.2 % Lymph % (Auto) 3.5 % [place] % (Auto) 7.3 % Eos % (Auto) 0.0 % Baso % (Auto) 0.2 % Neut # (Auto) 20.69 H (1.40-6.50) K/uL Lymph # (Auto) 0.82 L (1.2-3.4) K/uL [place] # (Auto) 1.71 H (0.11-0.59) K/uL Eos # (Auto) 0.00 (0-0.50) K/uL Baso # (Auto) 0.04 (0-0.2) K/uL Immature Gran # (Auto) 0.19 (0.01-0.20) K/uL Absolute Nucleated RBC (0-0.12) K/uL Nucleated RBC % (auto) % Hypersegmented Neuts Polychromasia 1+ Anisocytosis Present Tear Drop Cells Echinocytes 2+ ABG pH (7.35-7.45) ABG pCO2 (35-46) mmHg ABG pO2 (80-95) mmHg ABG HCO3 (19-24) mmol/L ABG O2 Saturation (90-95) % ABG Base Excess (-9-1.8) mEq/L Alex Test (Pos) Oxygen Given Sodium 138 (136-145) mmol/L Potassium 5.2 H (3.5-5.1) mmol/L Chloride 105 (98-107) mmol/L Carbon Dioxide 13 L (21-32) mmol/L Anion Gap 20 H (3-11) BUN 32 H (6-23) mg/dl Creatinine 1.31 H (0.6-1.2) mg/dl Est Cr Clr Drug Dosing 42.9 ml/min Est GFR ( Amer) 50.1 ml/min Est GFR (Non-Af Amer) 43.2 ml/min BUN/Creatinine Ratio 24.4 H (10-20) Glucose 123 H (70-99(Fasting)) mg/dl Lactate 7.1 H* (0.4-2.0) mmol/L Calcium 9.0 (8.6-10.3) mg/dl Magnesium 2.2 (1.7-2.4) mg/dl Ammonia (18-72) umol/L Triglycerides (0-150) mg/dl Cholesterol (0-200) mg/dl LDL Cholesterol, Calc mg/dl VLDL Cholesterol, Calc (0-30) mg/dl HDL Cholesterol mg/dl Cholesterol/HDL Ratio (0-5) Procalcitonin (0-0.5) ng/ml Prolactin ng/ml Urine Blood (Negative) Urine RBC (Auto) (0-4) /hpf Stl C. cayetanensis PCR (NotDetected) Stool Rotavirus A PCR (NotDetected) Stl Adenov F 40/41 PCR (NotDetected) Stool Astrovirus (PCR) (NotDetected) Stool Campylobacter PCR (NotDetected) Stl C. diff Tox B Gene (Neg) Stool Cryptosporidium PCR (NotDetected) Stl E.coli Shiga Tox PCR (NotDetected) Stl Enterotoxigenic E PCR (NotDetected) Stool EPEC (PCR) (NotDetected) Stool EAEC (PCR) (NotDetected) Stl E. histolytica PCR (NotDetected) Stool Giardia Lamblia PCR (NotDetected) Stool Salmonella PCR (NotDetected) Stool Sapovirus (PCR) (NotDetected) Stl P. shigelloides PCR (NotDetected) Stl Shigella/EIEC PCR (NotDetected) St Y.enterocolitica PCR (NotDetected) Stool Vibrio (PCR) (NotDetected) Stl Vibrio cholerae PCR (NotDetected) Stl Norovirus GI/GII PCR (NotDetected) Urine Butalbital Urine Opiates Screen (Neg) U Codeine Confrm GC/MS Ur Morphine (GC/MS) Ur Hydrocodone (GC/MS) Ur Norhydrocodone Ur Noroxycodone Urine Oxycodone (GC/MS) U Oxymorphone GC/MS Ur Methadone, Qual (Neg) Ur Hydromorphone (GC/MS) Acetaminophen (10-30) ug/ml Urine Barbiturates (Neg) Ur Phencyclidine (PCP) (Neg) U Amphetamines Confirm U Amphetamin/Meth Scrn (Neg) U Methamphetamin Confrm MDMA (Ecstasy) Screen (Neg) Urine Amobarbital Urine Pentobarbital Urine Phenobarbital Urine Secobarbital U OH-Alprazolam Confrm U Benzodiazepines Scrn (Neg) 7-Amino Clonazepam Ur Nordiazepam Confirm U OH-ethylflurazepam U Lorazepam Cnf GC/MS U Oxazepam Confm GC/MS Ur Temazepam Confirm U OH-Triazolam Confirm U OH-Midazolam Confirm Ur Cocaine Metabolite (Neg) U Marijuana (THC) Screen (Neg) Drug Screen Comment Blood Type Antibody Screen Crossmatch Transfusion React Date Transfusion React Time Tx React Symptoms Reaction Clerical Check Lab Clerical Err Check React Component Return Volume Returned Pre-Trans Blood Type Pre-Trans Vis Hemolysis Pre-Trans CRISTHIAN (Negative) Pre-Trans CRISTHIAN IgG (Negative) Pre-Trans CRISTHIAN Poly (Negative) Pre-Trans CRISTHIAN C3b, C3d (Negative) Post-Trans Blood Type Post-Tx Visible Hemolys Post-Trans CRISTHIAN (Negative) Post-Trans CRISTHIAN IgG (Negative) Post-Trans CRISTHIAN Poly (Negative) Post-Trans CRISTHIAN C3b, C3d (Negative) Post-Trans Ur Hemoglobin Reaction Path Interpret Transfusion Serv Com 03/21/23 03/20/23 Range/Units 07:34 06:59 WBC 20.92 H D (4.8-10.8) K/ul RBC 2.21 L (4.20-5.40) M/uL Hgb 7.5 L (12.0-16.0) g/dl Hct 22.9 L (37.0-47.0) % MCV 103.6 H (80.0-100.0) fL MCH 33.9 (25.0-34.0) pg MCHC 32.8 (32.0-36.0) g/dL RDW Std Deviation 68.1 H (36.4-46.3) fL RDW Coeff of Dewayne 18.5 H (11.5-14.5) % Plt Count 266 (130-400) K/uL MPV 10.7 (9.4-12.4) fL Immature Gran % (Auto) % Neut % (Auto) % Lymph % (Auto) % [place] % (Auto) % Eos % (Auto) % Baso % (Auto) % Neut # (Auto) (1.40-6.50) K/uL Lymph # (Auto) (1.2-3.4) K/uL [place] # (Auto) (0.11-0.59) K/uL Eos # (Auto) (0-0.50) K/uL Baso # (Auto) (0-0.2) K/uL Immature Gran # (Auto) (0.01-0.20) K/uL Absolute Nucleated RBC 0.04 (0-0.12) K/uL Nucleated RBC % (auto) 0.2 % Hypersegmented Neuts Polychromasia Anisocytosis Tear Drop Cells Echinocytes ABG pH (7.35-7.45) ABG pCO2 (35-46) mmHg ABG pO2 (80-95) mmHg ABG HCO3 (19-24) mmol/L ABG O2 Saturation (90-95) % ABG Base Excess (-9-1.8) mEq/L Alex Test (Pos) Oxygen Given Sodium (136-145) mmol/L Potassium (3.5-5.1) mmol/L Chloride (98-107) mmol/L Carbon Dioxide (21-32) mmol/L Anion Gap (3-11) BUN (6-23) mg/dl Creatinine (0.6-1.2) mg/dl Est Cr Clr Drug Dosing ml/min Est GFR ( Amer) ml/min Est GFR (Non-Af Amer) ml/min BUN/Creatinine Ratio (10-20) Glucose (70-99(Fasting)) mg/dl Lactate (0.4-2.0) mmol/L Calcium (8.6-10.3) mg/dl Magnesium (1.7-2.4) mg/dl Ammonia (18-72) umol/L Triglycerides (0-150) mg/dl Cholesterol (0-200) mg/dl LDL Cholesterol, Calc mg/dl VLDL Cholesterol, Calc (0-30) mg/dl HDL Cholesterol mg/dl Cholesterol/HDL Ratio (0-5) Procalcitonin (0-0.5) ng/ml Prolactin ng/ml Urine Blood (Negative) Urine RBC (Auto) (0-4) /hpf Stl C. cayetanensis PCR (NotDetected) Stool Rotavirus A PCR (NotDetected) Stl Adenov F 40/41 PCR (NotDetected) Stool Astrovirus (PCR) (NotDetected) Stool Campylobacter PCR (NotDetected) Stl C. diff Tox B Gene (Neg) Stool Cryptosporidium PCR (NotDetected) Stl E.coli Shiga Tox PCR (NotDetected) Stl Enterotoxigenic E PCR (NotDetected) Stool EPEC (PCR) (NotDetected) Stool EAEC (PCR) (NotDetected) Stl E. histolytica PCR (NotDetected) Stool Giardia Lamblia PCR (NotDetected) Stool Salmonella PCR (NotDetected) Stool Sapovirus (PCR) (NotDetected) Stl P. shigelloides PCR (NotDetected) Stl Shigella/EIEC PCR (NotDetected) St Y.enterocolitica PCR (NotDetected) Stool Vibrio (PCR) (NotDetected) Stl Vibrio cholerae PCR (NotDetected) Stl Norovirus GI/GII PCR (NotDetected) Urine Butalbital Urine Opiates Screen (Neg) U Codeine Confrm GC/MS Ur Morphine (GC/MS) Ur Hydrocodone (GC/MS) Ur Norhydrocodone Ur Noroxycodone Urine Oxycodone (GC/MS) U Oxymorphone GC/MS Ur Methadone, Qual (Neg) Ur Hydromorphone (GC/MS) Acetaminophen (10-30) ug/ml Urine Barbiturates (Neg) Ur Phencyclidine (PCP) (Neg) U Amphetamines Confirm U Amphetamin/Meth Scrn (Neg) U Methamphetamin Confrm MDMA (Ecstasy) Screen (Neg) Urine Amobarbital Urine Pentobarbital Urine Phenobarbital Urine Secobarbital U OH-Alprazolam Confrm U Benzodiazepines Scrn (Neg) 7-Amino Clonazepam Ur Nordiazepam Confirm U OH-ethylflurazepam U Lorazepam Cnf GC/MS U Oxazepam Confm GC/MS Ur Temazepam Confirm U OH-Triazolam Confirm U OH-Midazolam Confirm Ur Cocaine Metabolite (Neg) U Marijuana (THC) Screen (Neg) Drug Screen Comment Blood Type O Positive Antibody Screen NEGATIVE Crossmatch See Detail Transfusion React Date Transfusion React Time Tx React Symptoms Reaction Clerical Check Lab Clerical Err Check React Component Return Volume Returned Pre-Trans Blood Type Pre-Trans Vis Hemolysis Pre-Trans CRISTHIAN (Negative) Pre-Trans CRISTHIAN IgG (Negative) Pre-Trans CRISTHIAN Poly (Negative) Pre-Trans CRISTHIAN C3b, C3d (Negative) Post-Trans Blood Type Post-Tx Visible Hemolys Post-Trans CRISTHIAN (Negative) Post-Trans CRISTHIAN IgG (Negative) Post-Trans CRISTHIAN Poly (Negative) Post-Trans CRISTHIAN C3b, C3d (Negative) Post-Trans Ur Hemoglobin Reaction Path Interpret Transfusion Serv Com Diagnostic Findings Head CT 03/21/23 08:[address] DOSE: HISTORY: Other mental status. TECHNIQUE: Multiaxial CT images of the head were performed without the use of intravenous contrast. Automated exposure control was utilized for this study. A dose lowering technique was utilized adhering to the principles of ALARA. Comparison: Head CT 03/20/2023. Findings: Suboptimal evaluation due to the motion artifact. The paranasal sinuses and mastoid air cells are clear. The calvarium and skull base are intact. There is no mass, hematoma, midline shift, acute infarct. White matter hypodensity is nonspecific but suggestive of microvascular ischemic change. The ventricles and sulci demonstrate mild age-related involutional changes. Impression: Suboptimal evaluation due to the motion artifact. However, no definite acute intracranial abnormality. ACT 112: Negative or not required by law. Electronically signed by: Tyrone Pantoja M.D. 03/21/2023 9:37 AM Chest CTA 03/21/23 09:00 CT ANGIOGRAPHY OF THE CHEST, PULMONARY EMBOLUS PROTOCOL CLINICAL HISTORY: Altered mental status. Evaluate for pulmonary embolus. COMPARISON STUDY: Chest CT February 13, 2023. TECHNIQUE: Following IV administration of 120 mL of Optiray, helical axial images of the chest were obtained utilizing the pulmonary embolus protocol. Maximal intensity projections and sagittal and coronal reformats were viewed on an independent 3D workstation. IV contrast was administered without complication. Automated exposure control was utilized for the study. A dose lowering technique was utilized adhering to the principles of ALARA. FINDINGS: This exam is significantly compromised by respiratory motion artif act. No central pulmonary embolus is identified. Evaluation of the remainder of the pulmonary arteries is nondiagnostic. Note is made of moderate cardiomegaly and coronary calcification. There is no pericardial effusion. There is no definite thoracic aortic dissection. No pneumothorax or pleural effusion is noted. No consolidation is identified to suggest pneumonia. Moderate emphysema is again noted. Subpleural right upper lobe opacities are unchanged since CT of March 18, 2020 and favor scarring. There are minimal secretions within the mainstem bronchi. No thoracic lymphadenopathy. Thoracic spine compression fractures are likely old. Visualized portions of the upper abdomen demonstrate moderate wall thickening of visualized portions of the distal transverse colon and splenic flexure of the colon. These findings are better depicted on the CT of the abdomen and pelvis which will be reported separately. Upper abdominal collaterals are also noted. IMPRESSION: 1. Nearly nondiagnostic evaluation of the pulmonary arteries due to motion artifact. No central pulmonary emboli. Consideration might be given to further evaluation with lower extremity venous Doppler ultrasound. 2. No consolidation to suggest pneumonia. 3. Moderate emphysema. 4. Wall thickening within the visualized portion of the colon with adjacent stranding. This represents a nonspecific colitis. Findings better depicted on the CT of the abdomen and pelvis which will be reported separately. ACT 112: Negative or not required by law. Electronically signed by: Brian Hill M.D. 03/21/2023 9:43 AM Abdomen/Pelvis CT 03/21/23 09:[address] WITHOUT CONTRAST CT DOSE: 2030.79 mGy.cm HISTORY: rectal bleed TECHNIQUE: Multiaxial CT images of the abdomen and pelvis were performed without contrast. A dose lowering technique was utilized adhering to the principles of ALARA. COMPARISON STUDY: Chest CTA 03/21/2023. Right hip CT 03/20/2023. Left hip CT 03/15/2023. Abdomen and pelvis CT 02/13/2023. FINDINGS: The lung bases are better appreciated on the same day chest CT. Significant motion artifact results in suboptimal evaluation of the abdomen and pelvis. 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 Multiple compression deformities seen within the thoracic and lumbar spine. These are likely chronic. These are similar to the prior study. Endplate irregularity throughout the lumbar spine is also similar to the prior study. Therefore, this is likely chronic. The heart remains mildly enlarged. There is mild elevation of the left hemidiaphragm, unchanged. Right gluteal and right thigh intramuscular hematomas are similar to the prior study. There is also presacral hemorrhage again noted. This measures up to 3 cm in thickness. This remains unchanged. Cirrhotic liver with splenomegaly and multiple abdominal varicosities again noted. This is consistent with portal hypertension. The gallbladder remains distended. No definite gallbladder wall thickening by CT. The adrenal glands are unremarkable. Left-sided nephrolithiasis. No hydronephrosis. No retroperitoneal lymphadenopathy. Moderate calcified plaque within the normal caliber abdominal aorta. The deep pelvic structures are not well visualized due to metallic artifact from the hip arthroplasties. The bladder is decompressed by Bautista catheter. Gas within the bladder lumen is likely due to the catheterization. There is mild diffuse circumferential thickening throughout the majority the colon with pericolonic fat stranding. This is consistent with a nonspecific colitis. No dilated loops of bowel to suggest an obstruction. IMPRESSION: 1. Mild diffuse circumferential thickening throughout the majority of the colon consistent with a nonspecific pancolitis. 2. Cirrhotic liver with stigmata of portal hypertension again noted. 3. Right hip intramuscular hematomas and a presacral hematoma are similar to the prior right hip CT. 4. Additional findings as described above. ACT 112: Negative or not required by law. Electronically signed by: Tyrone Pantoja M.D. 03/21/2023 10:40 AM Brain MRI 03/21/23 15:35 Brain MRI WITH AND WITHOUT CONTRAST HISTORY: Seizure TECHNIQUE: Multiplanar multisequence MRI of the brain was performed both before and after the intravenous administration of contrast. COMPARISON STUDY: Head CT 03/20/2023. FINDINGS: Scattered small foci of restricted diffusion seen within the cortex of the posterior parietal and occipital lobes as well as the right medial thalamus. There are associated focal areas of increased T2 signal at these locations. These favor small acute infarcts. Posterior reversible encephalopathy syndrome could also have a similar appearance if the patient is demonstrating episodes of severe hypertension. Mild atrophy and microvascular ischemic changes are noted. There is no mass, hematoma, midline shift. Questionable slight increased T2 signal within the medial right temporal lobe in comparison to the left. This best seen on coronal FLAIR image 14. There is mild motion artifact. The major vascular flow-voids at the skull base are well-maintained. The paranasal sinuses and mastoid air cells are clear. No evidence for kennedy matter heterotopia or cortical dysplasia. IMPRESSION: 1. Scattered small foci of restricted diffusion seen within the cortex of the bilateral posterior parietal and occipital lobes as well as the right medial thalamus. There are associated focal areas of increased T2 signal at these locations. These favor small acute infarcts. Posterior reversible encephalopathy syndrome could also have a similar appearance if the patient is demonstrating episodes of severe hypertension. 2. Questionable slight increased T2 signal within the medial right temporal lobe in comparison to the left. Although indeterminate, this raises the possibility of a seizure focus. ACT 112: Negative or not required by law. Electronically signed by: Tyrone Pantoja M.D. 03/21/2023 5:53 PM
[2023-03-22] MEDS: RASPBERRY SYRUP 5 ML UDP PO SCH (09:39)
[2023-03-22] MEDS: POT PHOSPHATE MONOBASIC W/ SOD TAB PO SCH ×4 (09:40→22:14)
[2023-03-22] MEDS: ADVANCED PROBIOTIC 1250 MG CAPSULE PO SCH (09:40)
[2023-03-22] MEDS: MAGNESIUM OXIDE 400 MG TAB PO SCH ×2 (09:41→22:14)
[2023-03-22] MEDS: IRON POLYSACCHARIDE COMPLEX 150 MG CAPSULE PO SCH (09:41)
[2023-03-22] MEDS: VANCOMYCIN HCL 125 MG/2.5ML SOLN PO SCH (09:44)
[2023-03-22] MEDS: levETIRAcetam 750 MG in 0.9 % SODIUM CHLORIDE 100 ML IV SCH ×2 (09:47→22:12)
[2023-03-22] MEDS: PANTOprazole 40 MG in SYRINGE 0 ML IV SCH ×2 (09:48→22:13)
--- NOTE | 2023-03-22 11:09 | Gastroenterology Progress Note ---
Date of Service March 22, 2023 Assessment & Plan (1) Dislocation of right hip: (2) Cirrhosis: Plan: Pt is a 63 yo female w hx of cirrhosis (MELD 13), initially admitted for R hip dislocation, and hyperammonia levels. This AM had code purple due to change in mental status, was unresponsive but responded to Narcan. A bag of home pills noted under pillow. She is currently awake, but noted gazing updwards, not conversive and not following commands. ? seizure activity possible given upper limbs shaking. CT head, chest w/o acute findings. GI asked to evaluate pt again as she was having rectal bleeding this morning when she had code purple. No more rectal bleeding at this time. Blood ct wo signfinicant drop. CT abd/pelvis w sign of non specific colitis. Brain MRI yesterday showed acute infarcts. Neuro status about the same. GI re- evaluated pt as she was passing BRBPR. Rectal exam w finding of brown stools. Blood ct stable. - No contraindication to start ASA for acute brain infarcts from GI standpoint. - Monitor blood ct and transfuse prn - PPI IV BID - Coresafe placement ordered; if successful, may administer Lactulose through tube instead of OH enema. - Obtain stool cx and Cdiff - F/U urine and blood cx - Antibx coverage per primary team - Neurology following - No plans for endoscopy at this time. - Recall GI prn Admission and Anticipated Discharge Date Admission Date: March 19, 2023 Supervising Physician Co-Signing Physician Notes Attg add: Pt remains confused, delirious. Nurse reported small volume rectal bleeding. Recs as above -- Please continue lactulose, given sig portal HTN on imaging and u tox pos bdz/narcs. No evidence of clin sig GIB -- d/w ortho, who feel that anemia can be explained by hip injury. Ok to resume ASA. Please call with questions. Subjective Brain MRI showed acute infarcts. RN reports small amt of rectal bleeding this AM. H/H stable Review of Systems Review of Systems: Unobtainable due to cognitive status Physical Exam Constitutional: + ill appearing and + thin Eyes: PERRL, conjunctivae normal, anicteric sclerae Respiratory: Diminished overall sounds Cardiovascular: RRR, no murmur, no edema Gastrointestinal (Abdomen): Soft, no signs of tenderness on palpation Skin: no rashes, warm and dry no jaundice Neurologic: Not following commands nor able to converse. Mumbling. She is awake. Lymphatic: no lymphedema Results & Data Vital Signs (Past 12 Hours) Vital Signs Temp Pulse Pulse Pulse Resp BP BP 03/22/23 08:06 37.1 C 140 H 17 150/71 H 03/22/23 05:10 36.9 C 19 03/22/23 05:07 144 H 135/64 03/22/23 03:48 37.3 C 140 H 140 H 18 130/59 L 03/22/23 02:56 39 C H 139 H 20 149/71 H 03/22/23 02:27 38.2 C H 138 H 20 153/71 H 03/22/23 01:57 37.2 C 126 H 18 152/72 H 03/22/23 01:54 146 H 136/60 03/22/23 01:42 37 C 144 H 18 138/59 L 03/22/23 01:28 36.9 C 143 H 16 114/70 03/22/23 01:23 36.9 C 150 H 17 150/67 H Pulse Ox O2 Del Method O2 Flow Rate 03/22/23 08:06 96 Room Air 03/22/23 05:10 96 Room Air 03/22/23 05:07 03/22/23 03:48 96 Room Air 03/22/23 02:56 98 Nasal Cannula 1 03/22/23 02:27 97 1 03/22/23 01:57 97 1 03/22/23 01:54 03/22/23 01:42 97 1 03/22/23 01:28 98 1 03/22/23 01:23 98 1
[2023-03-22] MEDS ORDERED: METOPROLOL TARTRATE 1 MG/ML VIAL IV SCH (12:00)
[2023-03-22] MEDS: LACTATED RINGER'S 1,000 ML IV SCH (12:20)
--- NOTE | 2023-03-22 12:28 | Neurology Progress Note ---
Date of Service March 22, 2023 Assessment & Plan (1) Stroke due to embolism: (2) Seizure: Plan Acute to subacute embolic appearing infarcts involving the bilateral posterior parietal and occipital lobes as well as right medial thalamus. There is also a seizure focus within the medial right temporal lobe on yesterday's MRI which is consistent with her observed seizure activity yesterday with rhythmic shaking of the left arm, and abnormal EEG, localizing to the right frontal lobe. She is encephalopathic this morning but is no longer seizing. Patient does have some pupillary asymmetry, right pupil larger than the left, both pupils are round and seem to react equally to light. I suspect the observed pupillary asymmetry is due to the acute right medial thalamic infarct. Continue with Keppra 750 mg IV every 12 hours. Recommend daily low-dose aspirin when able to take oral medication. For the time being, subcu heparin, DVT prophylaxis appropriate. Follow-up with results of carotid ultrasound. The distribution of patient's stroke would seem suggestive of a cardioembolic event, and in her case, occurs in the context of recent right hip hemiarthroplasty, later complicated by fracture and dislocation. She appears to have PACs on a recent ECG. Continue to monitor for possible atrial fibrillation, consider 30-day mobile cardiac outpatient telemetry. Based on the distribution of patient's infarcts, I do expect that she will have some residual vision loss/impairment. Would consider obtaining outpatient visual field assessment when medically stable. Admission and Anticipated Discharge Date Admission Date: March 19, 2023 Subjective Follow-up for seizure, stroke No further seizure activity. Patient remains obtunded with altered mental status. MRI completed yesterday reviewed. There is evidence of embolic appearing infarct within the bilateral posterior parietal and occipital lobes as well as right medial thalamus. There is also a potential seizure focus appreciated on T2/FLAIR within the medial right temporal lobe. The distribution of acute infarcts could also potentially be consistent with posterior reversible encephalopathy syndrome. I did independently review these images. Patient was loaded with levetiracetam yesterday in light of observed seizure activity at that time. She is now receiving a maintenance dosage of 750 mg IV every 12 hours. Review of Systems Review of Systems: Unobtainable due to cognitive status and Unobtainable due to reduced consciousness Results & Data Vital Signs (Past 12 Hours) Vital Signs Temp Pulse Pulse Pulse Resp BP BP 03/22/23 08:00 140 H 03/22/23 08:06 37.1 C 140 H 17 150/71 H 03/22/23 05:10 36.9 C 19 03/22/23 05:07 144 H 135/64 03/22/23 03:48 37.3 C 140 H 140 H 18 130/59 L 03/22/23 02:56 39 C H 139 H 20 149/71 H 03/22/23 02:27 38.2 C H 138 H 20 153/71 H 03/22/23 01:57 37.2 C 126 H 18 152/72 H 03/22/23 01:54 146 H 136/60 03/22/23 01:42 37 C 144 H 18 138/59 L 03/22/23 01:28 36.9 C 143 H 16 114/70 03/22/23 01:23 36.9 C 150 H 17 150/67 H Pulse Ox O2 Del Method O2 Flow Rate 03/22/23 08:00 03/22/23 08:06 96 Room Air 03/22/23 05:10 96 Room Air 03/22/23 05:07 03/22/23 03:48 96 Room Air 03/22/23 02:56 98 Nasal Cannula 1 03/22/23 02:27 97 1 03/22/23 01:57 97 1 03/22/23 01:54 03/22/23 01:42 97 1 03/22/23 01:28 98 1 03/22/23 01:23 98 1 Laboratory Results WBC 17.37, hemoglobin 7.0, hematocrit 21.2, platelet count 198, sodium 139, potassium 4.7, BUN 37, creatinine 1.23, glucose 122, calcium 8.3, magnesium 2.3, ammonia 62.0, triglycerides 63, cholesterol 90, LDL 37, VLDL 13, HDL 40, prolactin yesterday was 12.78 An echocardiogram revealed sinus tachycardia, left ventricular size normal, mild concentric left ventricular hypertrophy, no regional wall motion abnormalities, left ventricle hyperdynamic, EF greater than 70%, no gross shunt with injection of agitated saline, left atrial size normal. Electrocardiogram completed this morning reveals sinus tachycardia with PACs, 136 bpm. Exam (Neuro) Neurologic: Oriented to:: negative Person, Place or Time Attention: negative Span Intact or Concentration Intact Speech Fluency: Other (Patient is nonverbal) Cranial Nerves: Normal II (Blinks to threat) and III, IV, (Pupils are round and reactive to light, right pupil 4 mm, left pupil 2 mm) Flaccidity: Arms and Legs Muscle Bulk/Involuntary Movements: No Involuntary Movements Details: There is no ptosis, there is no gaze deviation, no nystagmus PG Care Time/CCT Total # of Minutes Spent Total Time Spent with Patient: Total time spent is greater than 50% in coordination of care (as documented) at patient's floor/unit and/or counseling patient: Coding Level of Care Code 85927 SUB INP/OBS CARE 3/50MIN Diagnoses Stroke due to embolism I63.9 Seizure R56.9 Time Spent (min) 60
[2023-03-22] MEDS ORDERED: ASPIRIN 81 MG CHEW PO SCH (12:45)
[2023-03-22] MEDS ORDERED: METOPROLOL TARTRATE 1 MG/ML VIAL IV PRN (12:45)
[2023-03-22] MEDS: UMECLIDINIUM/VILANTEROL 62.5/25MCG 7 PUFFS/INHALER INH SCH (12:46)
--- NOTE | 2023-03-22 13:05 | Ultrasound Report ---
BILATERAL CAROTID DOPPLER STUDY HISTORY: Altered mental status. Acute cerebral infarct COMPARISON: None. TECHNIQUE: Real-time, grayscale, and color Doppler sonography of the carotid arteries was performed. Imaging reviewed in the transverse and longitudinal planes. All measurements were calculated based on NASCET criteria. FINDINGS: Antegrade flow is seen in the bilateral vertebral arteries. Mild calcified plaque within the bilateral carotid bifurcations. The peak systolic velocity within the right ICA is 152 cm/s distally. This is likely due to the tortu ous vessel. The right systolic ratio is 1.3. The peak systolic velocity within the left ICA is 115 cm/s. The left systolic ratio is 1.0. IMPRESSION: Slightly elevated peak systolic velocity within the distal right ICA is likely due to the tortuous ve ssel. Otherwise, no hemodynamically significant stenosis within the carotid arteries. ACT 112: Negative or not required by law. Electronically signed by: Tyrone Pantoja M.D. 03/22/2023 1:04 PM
--- NOTE | 2023-03-22 13:17 | Electrocardiogram Report ---
Test Reason : Blood Pressure : / mmHG Vent. Rate : 136 BPM Atrial Rate : 136 BPM P-R Int : 138 ms QRS Dur : 082 ms QT Int : 294 ms P-R-T Axes : 036 -06 056 degrees QTc Int : 442 ms Sinus tachycardia with Premature atrial complexes Cannot rule out Inferior infarct , age undetermined Poor R wave progression, consider anterior WI vs. lead placement vs. LVH Abnormal ECG When compared with ECG of 14-FEB-2023 00:16, Premature atrial complexes are now Present Inferior infarct is now Present Confirmed by Gino Dior ([id number]) on 03/22/2023 1:17:19 PM Referred By: REFERRED SELF Confirmed By:Gino Dior
--- NOTE | 2023-03-22 14:44 | XRay Report ---
JOEL CLINICAL HISTORY: Coresafe placement COMPARISON STUDY: CT of the chest, abdomen and pelvis March 21, 2023. FINDINGS: The Coresafe is coiled within the stomach. The tip projects over the gastric cardia. Lungs are suboptimally assessed due to motion artifact. Cardiomediastinal silhouette is stable. IMPRESSION: Coresafe catheter coiled within the stomach. The tip projects over the gastric cardia. ACT 112: Negative or not required by law. Electronically signed by: Brian Hill M.D. 03/22/2023 2:43 PM
--- NOTE | 2023-03-22 15:53 | XRay Report ---
XR chest 1V portable HISTORY: CoreSafe placement COMPARISON: Chest 02/13/2023. FINDINGS: Nasogastric tube is curled within the body the stomach. The heart is normal in size. No ple ural effusions. No pneumothorax. Old, healed right-sided rib fractures. Emphysema again noted. No new focal lung consolidations to suggest a pneumonia. No evidence for pulmonary edema. IMPRESSION: The nasogastric tube is curled within the body of the stomach. ACT 112: Negative or not required by law. Electronically signed by: Tyrone Pantoja M.D. 03/22/2023 3:51 PM
--- NOTE | 2023-03-22 16:42 | Hospitalist Progress Note ---
Date of Service March 22, 2023 Assessment & Plan (1) Dislocation of right hip: Plan: Patient presenting from home with reports of right hip pain and suspected dislocation after standing up from the couch. Acute metabolic encephalopathy Acute CVA Seizure due to above Likely multifactorial--hyperammonemia, polypharmacy, Seizures, CVA H/O cirrhosis ? Overdose on home medications --CT head:Suboptimal evaluation due to the motion artifact. However, no definite acute intracranial abnormality. --EEG:Abnormal awake/drowsy EEG revealing evidence of a generalized nonspecific encephalopathy as well as right frontal focal slowing and sharps potentially suggesting focal cerebral dysfunction with lowered threshold for seizures. Further correlation with imaging, MRI, recommended. --MRI Brain:Scattered small foci of restricted diffusion seen within the cortex of the bilateral posterior parietal and occipital lobes as well as the right medial thalamus. There are associated focal areas of increased T2 signal at these locations. These favor small acute infarcts. Posterior reversible encephalopathy syndrome could also have a similar appearance if the patient is demonstrating episodes of severe hypertension. Questionable slight increased T2 signal within the medial right temporal lobe in comparison to the left. Although indeterminate, this raises the possibility of a seizure focus. --Carotid Doppler:Slightly elevated peak systolic velocity within the distal right ICA is likely due to the tortuous vessel. Otherwise, no hemodynamically significant stenosis within the carotid arteries. --ECHO: Left ventricle is normal in size. Mild concentric LVH. No regional wall motion abnormalities noted. Left ventricle is hyperdynamic. EF greater than 70%. Aortic valve stenosis moderate, without significant aortic valvular stenosis. Agitated saline contrast injection performed without gross shunt through diagnostic accuracy limited at heart rates well performed. --LDL:37 --Continue lactulose for Hyperammonemia ---- Appreciate neurology, psychiatry input --Discontinued tramadol --Hold Adderall--plan to hold upon discharge as well --Started on aspirin 81 mg, Lipitor 20 mg daily --Continue Keppra --Seizure precautions -- Avoid sedating meds --Needs follow-up with neurology upon discharge Speech therapy, PT OT eval Needs 30-day mobile cafeteria monitor arranged upon discharge Right hip dislocation Left pelvic ring and left proximal femoral periprosthetic fractures Secondary to Fall --H/O Right subcapital femoral neck fracture 02/15/2023 s/p repair, H/O nondisplaced periprosthetic left hip fracture 03/15/2023 treated nonsurgically --Right Hip CT: Recent reduction of the right hip arthroplasty acetabular cup. Intra-articular loose bodies within the femoral acetabular joint measuring up to 1.4 cm are suggestive of probable tiny acetabular cortical fracture fragments, donor sites not definitively seen. This prohibits the acetabular cup from adequately seating within the elim ira acetabulum as described on the recent radiographs. No acute fracture of the right hemipelvis or right femur identified, however evaluation is limited secondary to streak artifact. Large amount of intramuscular hemorrhage within the right gluteal tissues, and right thigh with intrapelvic extension. Fractured hardware of the left femur with periprosthetic fracture is better seen on the comparison studies. --Pelvic X ray: Bilateral hip total joint arthroplasties with superiorly dislocated right femoral head prosthesis. No evidence of acute right hip fracture. ORIF changes of the left femur with fracture cannulated screws again noted. Periprosthetic fracture of the left proximal femur again noted with subtle acute nondisplaced left pelvic ring fracture, unchanged from prior CT. --S/P right hip reduction done in ED -- Pain control Fall precautions Appreciate orthopedic input No plan for surgical intervention currently as per orthopedics. Will need anticoagulation for DVT prophylaxis if no recurrence of bleeding issues while on aspirin Rectal Bleeding (Noted on 03/21/23) Pancolitis Acute blood loss anemia Acute metabolic acidosis Possible sepsis Lactic acidosis --CT ABD:Mild diffuse circumferential thickening throughout the majority of the colon consistent with a nonspecific pancolitis. Cirrhotic liver with stigmata of portal hypertension again noted. --Blood cultures: Negative to date -- Continue IV Protonix twice daily Stool studies to rule out infection given possible pancolitis on CT abdomen Continue empiric antibiotics for pancolitis --Appreciate GI Input Monitor H&H and transfuse as needed --Continue IV fluids as needed -- Continue empiric antibiotics with Azactam, Flagyl -- Obtain stool studies if has any diarrhea Blood transfusion reaction Needs premedicated prior to any transfusions Acute respiratory failure with hypoxia Likely secondary to seizure --CTA:Nearly nondiagnostic evaluation of the pulmonary arteries due to motion artifact. No central pulmonary emboli. Consideration might be given to further evaluation with lower extremity venous Doppler ultrasound. No consolidation to suggest pneumonia. Moderate emphysema. Wall thickening within the visualized portion of the colon with adjacent stranding. This represents a nonspecific colitis. Findings better depicted on the CT of the abdomen and pelvis which will be reported separately. -- Continue supplemental oxygen as needed Saturating well on room air today Tachycardia Likely physiological Resume metoprolol as able IV Lopressor PRN Traumatic intramuscular hemorrhage secondary to fall -- Right Hip CT:Recent reduction of the right hip arthroplasty acetabular cup. Intra-articular loose bodies within the femoral acetabular joint measuring up to 1.4 cm are suggestive of probable tiny acetabular cortical fracture fragments, donor sites not definitively seen. This prohibits the acetabular cup from adequately seating within the elim ira acetabulum as described on the recent radiographs. No acute fracture of the right hemipelvis or right femur identifie d, however evaluation is limited secondary to streak artifact. Large amount of intramuscular hemorrhage within the right gluteal tissues, and right thigh with intrapelvic extension. Fractured hardware of the left femur with periprosthetic fracture is better seen on the comparison studies. -- CT Head:Limited exam secondary to positioning. No acute intracranial abnormality or calvarial fracture identified. -- Monitor H&H and transfuse PRBCs as needed Hold anticoagulation for now (2) UTI (urinary tract infection): Plan: Urine culture from 03/16 grew Enterobacter, Klebsiella Completed antibiotic course Repeat urine culture no growth (3) Hypokalemia: Plan: Hypomagnesemia Hypokalemia Replete electrolytes as needed (4) HTN (hypertension): Plan: Continue metoprolol (5) C. difficile colitis: Plan: History of recurrent C. difficile, on chronic vancomycin suppression (6) Emphysema of lung: Plan: Appears stable (7) Cirrhosis: Plan: Appreciate GI input Monitor (8) Bipolar disorder: (9) Schizophrenia: (10) Depression: Plan: Currently not on any medications DVT Px SCDs Re: Hemorrhage Disposition Poor prognosis Palliative care consulted to address goals of care Admission and Anticipated Discharge Date Admission Date: March 19, 2023 Subjective Patient is seen and examined at bedside Confused during my encounter Poor historian secondary to significant hearing impairment Unable to provide much history Discussed with neurology, gastroenterology today Evaluated by speech therapy today Oriented to person only Had blood transfusion reaction overnight Palliative care consulted to address goals of care Review of Systems Review of Systems: All systems reviewed & are unremarkable except as noted in Subjective Physical Exam Physical Exam: Physical Exam: Vitals signs as noted above General Appearance: Thin, frail, chronic ill-appearing, no apparent distress Head: normocephalic, Atraumatic Eyes: normal inspection, EOMI, right pupil dilated when compared to the left Neck: supple, Trachea midline Respiratory/Chest: Normal breath sounds, CTA, No accessory muscle use Cardiovascular: S1, S2, No murmur Abdomen/GI:Soft, Non tender, Bowel sounds present Extremities/Musculoskeletal: Neurologic/Psych:confused, +Hearing impairment, follows some simple commands Skin: normal color, warm Results & Data Results & Data Vital Signs (Past 12 Hours) Vital Signs Temp Pulse Pulse Resp BP BP Pulse Ox 03/22/23 16:00 91 H 03/22/23 15:39 37.8 C H 92 H 19 124/63 94 03/22/23 08:15 03/22/23 12:22 143 H 150/71 H 03/22/23 08:00 140 H 03/22/23 08:06 37.1 C 140 H 17 150/71 H 96 03/22/23 05:10 36.9 C 19 96 03/22/23 05:07 144 H 135/64 O2 Del Method 03/22/23 16:00 03/22/23 15:39 Room Air 03/22/23 08:15 Room Air 03/22/23 12:22 03/22/23 08:00 03/22/23 08:06 Room Air 03/22/23 05:10 Room Air 03/22/23 05:07 Laboratory Results Short CBC 03/21/23 03/22/23 Range/Units 23:10 03:45 WBC 17.37 H (4.8-10.8) K/ul Hgb 7.4 L 7.0 L (12.0-16.0) g/dl Hct 22.2 L 21.2 L (37.0-47.0) % Plt Count 198 (130-400) K/uL BMP 03/22/23 03:45 Sodium 139 Potassium 4.7 Chloride 108 H Carbon Dioxide 21 BUN 37 H Creatinine 1.23 H Glucose 122 H Calcium 8.3 L
[2023-03-22] MEDS ORDERED: LACTULOSE SYRUP 20 GM/30 ML UDC NG SCH (21:00)
[2023-03-23] MEDS: AZTREONAM 1,000 MG in DEXTROSE 5% 100 ML IV SCH (03:23)
[2023-03-23] MEDS ORDERED: XOPENEX/ATROVENT 1.25mg/0.5MG NEB COMBO NEB STA (03:50)
[2023-03-23] MEDS ORDERED: methylPREDNISolone 20 MG in SYRINGE 0 ML IV STA ×2 (03:50→03:58)
[2023-03-23] MEDS: metroNIDAZOLE 500 MG/100 ML BAG IV SCH (03:53)
[2023-03-23] MEDS ORDERED: IPRATROPIUM BROMIDE NEB SOLN 0.02% 2.5 ML VIAL INH STA (03:54)
[2023-03-23] MEDS ORDERED: LEVALBUTEROL 1.25MG/0.5ML NEB INH STA (03:54)
[2023-03-23] MEDS ORDERED: LORazepam 2 MG/1 ML VIAL IV STA ×2 (04:25→04:57)
[2023-03-23] MEDS ORDERED: levETIRAcetam 750 MG in 0.9 % SODIUM CHLORIDE 100 ML IV SCH (04:30)
--- NOTE | 2023-03-23 04:41 | Communication Note ---
Date of Service: March 23, 2023 Notified by RN of worsening mentation, oxygenation. Breakthrough seizure later noted. Ativan 1 dose now Facilitate IV Keppra Repeat CT head ICU transfer for closer monitoring after patient's son given update over the phone (patient has not answered calls) and patient's full code status reaffirmed.
[2023-03-23 04:56] LABS: iSTAT Allen Test Pass; iSTAT Art Bld Gas pCO2 Correct 40 mmHg (35-46); iSTAT Art Bld Gas pH Corrected 7.413 (7.35-7.45); iSTAT Arterial Blood Gas HCO3 26 meg/L (19-24); iSTAT Arterial Blood Gas pCO2 39 mmHg (35-46); iSTAT Arterial Blood Gas pH 7.42 (7.35-7.45); iSTAT Arterial Blood Gas pO2 368 mmHg (80-95); iSTAT Arterial Blood Gas pO2 C 372; iSTAT Carbon Dioxide 27 mmol/L (24-31); iSTAT FiO2 100 %; iSTAT Hematocrit 21 % (37-47); iSTAT Hemoglobin 7.1 g/dl (12.0-16.0); iSTAT Potassium 3.5 mmol/L (3.3-5.0); iSTAT Site L Radial; iSTAT Sodium 145 mmol/L (135-144)
[2023-03-23 04:57] LABS: BUN Creatinine Ratio 32.6 (10-20); Calcium 8.5 mg/dl (8.6-10.3); Creatinine Clr Calc Pharmacy 61.1 ml/min; Est GFR (African American) 79.9 ml/min; Magnesium 2.6 mg/dl (1.7-2.4); Phosphorus 2.4 mg/dl (2.5-4.9); Potassium 3.6 mmol/L (3.5-5.1)
[2023-03-23] MEDS ORDERED: LORazepam 2 MG/1 ML VIAL IV PRN (05:02)
[2023-03-23] MEDS ORDERED: LACTATED RINGER'S 1,000 ML IV ONE (05:04)
[2023-03-23 05:16] LABS: INR 2.9 (0.9-1.1); Prothrombin Time 29.3 Seconds (9.0-12.0)
[2023-03-23 05:26] LABS: Basophils # (auto) 0.01 K/uL (0-0.2); Basophils % (auto) 0.1 %; Hematocrit (blood only) 23.5 % (37.0-47.0); Hemoglobin 7.6 g/dl (12.0-16.0); Immature Granulocytes # (auto) 0.08 K/uL (0.01-0.20); Immature Granulocytes % (auto) 0.6 %; Lymphocytes # (auto) 0.52 K/uL (1.2-3.4); Lymphocytes % (auto) 4.1 %; Mean Corpuscular Hgb Conc 32.3 g/dL (32.0-36.0); Mean Corpuscular Volume 102.2 fL (80.0-100.0); Mean Platelet Volume 10.6 fL (9.4-12.4); Monocytes # (auto) 1.23 K/uL (0.11-0.59); Monocytes % (auto) 9.7 %; Neutrophils # (auto) 10.84 K/uL (1.40-6.50); Neutrophils % (auto) 85.5 %; Nucleated RBC # (auto) 0.17 K/uL (0-0.12); Nucleated RBC % (auto) 1.3 %; Platelet Count 148 K/uL (130-400); RDW Standard Deviation 73.4 fL (36.4-46.3); White Blood Count 12.68 K/ul (4.8-10.8)
[2023-03-23] MEDS ORDERED: ACETAMINOPHEN SUSP 500 MG/15.6 ML UDP PO STA (05:39)
[2023-03-23] MEDS ORDERED: POTASSIUM CHLORIDE 20 MEQ/15 ML UDC PO STA (05:39)
[2023-03-23 05:45] LABS: Hypersegmented Neutrophils 1+; Polychromasia 1+
--- NOTE | 2023-03-23 05:59 | CT Scan Report ---
Exam(s): CT HEAD Without Contrast EXAM: CT Head Without Intravenous Contrast CLINICAL HISTORY: Reason for exam: ams. TECHNIQUE: Axial computed tomography images of the head/brain without intravenous contrast. CTDI is 38.59 mGy and DLP is 732.51 mGy-cm. Automated exposure control was utilized for the study. A dose lowering technique was utilized adhering to the principles of ALARA. COMPARISON: Comparison made to prior noncontrast head CT from March 21, 2023. FINDINGS: Brain: Unremarkable. No hemorrhage. Mild to moderate nonspecific white matter changes. No edema. Ventricles: Unremarkable. No ventriculomegaly. Bones/joints: Significant atlantoaxial rotation. No acute fracture. Soft tissues: Unremarkable. Sinuses: Unremarkable as visualized. Left NG tube in place. No acute sinusitis. Mastoid air cells: Unremarkable as visualized. No mastoid effusion. IMPRESSION: No evidence of acute intracranial pathology. Electronically signed by: Xuan Victoria MD 03/23/23 05:58 AM
[2023-03-23 06:12] LABS: Albumin Level 3.1 gm/dl (3.4-5.0); Bilirubin Direct 1.5 mg/dl (0-0.2); Bilirubin,Total 2.8 mg/dl (0.2-1.0); Total Protein 5.5 gm/dl (6.0-8.3)
--- NOTE | 2023-03-23 06:55 | XRay Report ---
SINGLE VIEW CHEST CLINICAL HISTORY: Dyspnea FINDINGS: An AP, portable, upright chest radiograph is compared to study dated 03/22/2023 and correlat ed with chest CT dated 03/21/2023. The examination is degraded by portable technique and patient rotat ion. An enteric tube is unchanged in position. The heart is enlarged noting atherosclerotic calcifica tion of the thoracic aorta. The pulmonary vasculature is noncongested. Emphysema and chronic intersti tial thickening is similar to previous. Foci of parenchymal scarring are seen throughout both lungs. No airspace consolidation or large pleural effusion is identified. No pneumothorax is seen. The skele pippa structures are osteopenic. There are chronic/healed right-sided rib fractures. IMPRESSION: Cardiomegaly and emphysema with no acute cardiopulmonary abnormality identified. ACT 112: Negative or not required by law. Electronically signed by: Valentin Alexis M.D. 03/23/2023 6:52 AM
[2023-03-23] MEDS ORDERED: RAPID SEQUENCE INDUCTION BAG ONE (06:58)
[2023-03-23] MEDS ORDERED: PROPOFOL IV EMULSION 10 MG/ML 100 ML VIAL IV ONE (07:12)
[2023-03-23] MEDS ORDERED: ICU Protocol for HYPERglycemia SCH (07:30)
--- NOTE | 2023-03-23 07:30 | Procedure Note ---
Procedure Note Date of Service March 23, 2023 Note APC: Jose Naylor PA-C. Attending: Dr. Herrera A time-out was completed verifying correct patient, procedure, site, positioning. Patient was evaluated and required intubation for airway protection in the setting of status epilepticus, AMS, obtunded patient. Sedative agent used: Versed, Etomidate Paralysis agent used: None Emergent consent was implied given patients rapidly declining clinical status and need for airway protection. The patient was prepared in the appropriate fashion. Sedation was achieved utilizing Versed and Etomidate, per Dr. Herrera administration. The patient was easily ventilated using [id number] to achieve adequate oxygenation. A 7.5 [place] endotracheal tube was placed using Direct video laryngoscope to 21 cm at the lip. The stylette was removed and balloon was inflated with 10mL of air. Appropriate Colorimetric change was appreciated. Bilateral breath sounds were heard without air sounds in the abdomen. Dr. Herrera was present for the entire procedure. Post Intubation Chest X-ray confirms placement without pneumothorax. Patient tolerated the procedure well and there were no immediate complications. Coding CPT Codes Resuscitation - Resuscitation: [id number] Endotracheal Intubation, emergency ([id number]) [facility] Codes (Charges) Resuscitation Resuscitation: [id number] Endotracheal Intubation, emergency
--- NOTE | 2023-03-23 07:37 | XRay Report ---
SINGLE VIEW CHEST CLINICAL HISTORY: Respiratory failure. Intubation. FINDINGS: An AP, portable, supine chest radiograph is compared to study performed earlier the same da y 03/23/2023 and correlated with chest CT dated 03/21/2023. The examination is degraded by portable lucrecia hnique and patient rotation. An endotracheal tube has been placed. The tip projects approximately 1 c m above the lorena. An enteric tube is unchanged in position. The heart is enlarged noting atheroscle rotic calcification of the thoracic aorta. There is pulmonary vascular congestion. 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 Foci of parenchymal scarring are seen throughout both lungs. There is developing airspace consolidation at the left lung base. Question trace pleural effusions. No pneumothorax is seen. The skeletal structures are osteopenic. There are chronic/healed right-sided rib fractures. IMPRESSION: 1. An endotracheal tube has been placed as above. 2. Cardiomegaly and emphysema. Mild pulmonary vascular congestion is new from previous. 3. There is developing airspace consolidation at the left lung base. This could represent atelectasis versus pneumonitis. Correlate clinically. 4. Question trace pleural effusions. ACT 112: Negative or not required by law. Electronically signed by: Valentin Alexis M.D. 03/23/2023 7:35 AM
--- NOTE | 2023-03-23 07:54 | Discharge Summary ---
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 Patient discharged from [facility] yesterday for management of periprosthetic left hip fracture. Patient was advised to go to SNF for rehab however she declined. Patient reports that while she was attempting to stand from the couch this morning, she felt her right hip dislocate. Patient then presented to the ED for further evaluation. History is somewhat difficult to obtain from the patient due to hearing impairment and also sedation received in ED. Patient offers no other complaints at this time. ED provider attempted to reduce the right hip however was unsuccessful, orthopedics was ultimately called and right hip was reduced. Admission Exam Per Admitting Provider Constitutional: no acute distress Chronically ill-appearing, appears older than stated age Eyes: PERRL, conjunctivae normal, anicteric sclerae ENMT: Ears: + hearing impairment; no external ear abnormality Nose: no external nose abnormality Respiratory: normal respiratory effort, lungs clear to auscultation Cardiovascular: Rate/Rhythm: regular rate and regular rhythm Vessels: normal peripheral pulses Extremities: no edema Gastrointestinal (Abdomen): normal bowel sounds, soft, nontender, no hepatosplenomegaly Musculoskeletal: right hip pain with minimal movement, BLE length equal Skin: no rashes, warm and dry B Neurologic: PERRL, EOMI, accommodation nl, no face palsy, no dysarthria Psychiatric: Orientation: alert and oriented x 3 Affect: + irritable affect Principal Diagnosis CVA, seizure R hip dislocation Discharge Exam General Appearance: Thin, frail, F sedated intubated Head: normocephalic Eyes: pinpoint pupils Respiratory/Chest: intubated, + min.rhonchi Cardiovascular: S1, S2, No murmur Abdomen/GI:Soft,+ bowel sounds present Extremities/Musculoskeletal: abduction pillow between legs, not moving extremities - sedated Neurologic/Psych: intubated, sedated Skin:warm, dry Discharge Data Allergies Allergy/AdvReac Type Severity Reaction Status Date / Time Penicillins Allergy Severe ANAPHYLAXIS Verified 03/15/23 14:57 oxycodone [From Percodan] Allergy Unknown Unknown Verified 03/15/23 14:57 ketorolac [From Toradol] AdvReac Severe Breathing Verified 03/15/23 14:57 difficulty hydrocodone AdvReac Intermediate Nausea Verified 03/15/23 14:57 [From Lorcet (hydrocodone)] rifaximin [From Xifaxan] AdvReac Intermediate Dizzy, Verified 03/15/23 14:57 Fell down ursodiol AdvReac Intermediate Dizzy, Verified 03/15/23 14:57 Fell down Consultations 03/19/23 14:03 ED Decision to Admit Stat 03/19/23 19:01 Consult Orthopedic Surgery Routine 03/20/23 00:19 Consult Gastroenterology Routine 03/21/23 10:42 Consult Neurology Routine 03/21/23 11:32 Consult Palliative Care Routine 03/23/23 05:28 Consult Scout Sniper Routine 03/23/23 06:56 Burn CD for patient Stat Ordered Studies 03/20/23 08:30 CT hip RT wo con Stat FINDINGS: Bilateral hip arthroplasties. Recent reduction of the right femoral head component. There is a 2 mm separation between the acetabular cortex and the acetabular cup which has improved from prior, recently 4 mm. On the study from 03/07/2023 there was less than 1 mm of medial separation. Intra-articular loose bodies are new from 02/13/2023, the largest of which is a 1.4 x 0.2 x 0.9 cm linear radiodensity within the medial aspect of the femoral acetabular joint on image 26 of the coronal series. Additional smaller radiodense foci noted within the superior aspect of the femoral acetabular joint. Limited study secondary to artifact from the hardware. No acute right-sided femoral fracture. Large intramuscular hematoma of the proximal right thigh, predominantly involving the gluteal muscles with extension along the lateral quadriceps, the margins of which are difficult to measure. There is also moderate amount of hemorrhage which extends into the pelvis. Left pelvic ring and left femoral periprosthetic fracture is again noted. Prom inent soft tissue swelling surrounding the right hip. Fractured cannulated screws of the left ORIF hardware. IMPRESSION: 1. Recent reduction of the right hip arthroplasty acetabular cup. Intra-artic ular loose bodies within the femoral acetabular joint measuring up to 1.4 cm are suggestive of probable tiny acetabular cortical fracture fragments, donor sites not definitively seen. This prohibits the acetabular cup from adequately seating within the red devil acetabulum as described on the recent radiographs. 2. No acute fracture of the right hemipelvis or right femur identified, however evaluation is limited secondary to streak artifact. 3. Large amount of intramuscular hemorrhage within the right gluteal tissues, and right thigh with intrapelvic extension. 4. Fractured hardware of the left femur with periprosthetic fracture is better seen on the comparison studies. 03/20/23 08:34 CT head/brain wo con Urgent COMPARISON: 02/13/2023 FINDINGS: No acute intracranial hemorrhage, midline shift, intracranial mass, hydrocephalus, territorial ischemia or abnormal extra-axial collection. Limited exam secondary to positioning. Involutional changes with chronic microvascular ischemic disease. The calvarium is intact. The paranasal sinuses, mastoid air cells, and middle ear cavities are clear. IMPRESSION: Limited exam secondary to positioning. No acute intracranial abnormality or calvarial fracture identified. 03/21/23 08:59 CT head/brain wo con Stat Comparison: Head CT 03/20/2023. Findings: Suboptimal evaluation due to the motion artifact. The paranasal sinuses and mastoid air cells are clear. The calvarium and skull base are intact. There is no mass, hematoma, midline shift, acute infarct. White matter hypodensity is nonspecific but suggestive of microvascular ischemic change. The ventricles and sulci demonstrate mild age-related involutional changes. Impression: Suboptimal evaluation due to the motion artifact. However, no definite acute intracranial abnormality. 03/21/23 09:00 CT angio chest PE protocol Urgent FINDINGS: This exam is significantly compromised by respiratory motion artifact. No central pulmonary embolus is identified. Evaluation of the remainder of the pulmonary arteries is nondiagnostic. Note is made of moderate cardiomegaly and coronary calcification. There is no pericardial effusion. There is no definite thoracic aortic dissection. No pneumothorax or pleural effusion is noted. No consolidation is identified to suggest pneumonia. Moderate emphysema is again noted. Subpleural right upper lobe opacities are unchanged since CT of March 18, 2020 and favor scarring. There are minimal secretions within the mainstem bronchi. No thoracic lymphadenopathy. Thoracic spine compression fractures are likely old. Visualized portions of the upper abdomen demonstrate moderate wall thickening of visualized portions of the distal trans verse colon and splenic flexure of the colon. These findings are better depicted on the CT of the abdomen and pelvis which will be reported separately. Upper abdominal collaterals are also noted. IMPRESSION: 1. Nearly nondiagnostic evaluation of the pulmonary arteries due to motion artifact. No central pulmonary emboli. Consideration might be given to further evaluation with lower extremity venous Doppler ultrasound. 2. No consolidation to suggest pneumonia. 3. Moderate emphysema. 4. Wall thickening within the visualized portion of the colon with adjacent stranding. This represents a nonspecific colitis. Findings better depicted on the CT of the abdomen and pelvis which will be reported separately. 03/21/23 09:01 CT abd pelvis wo con Urgent FINDINGS: The lung bases are better appreciated on the same day chest CT. Significant motion artifact results in suboptimal evaluation of the abdomen and pelvis. 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 Multiple compression deformities seen within the thoracic and lumbar spine. These are likely chronic. These are similar to the prior study. Endplate irregularity throughout the lumbar spine is also similar to the prior study. Therefore, this is likely chronic. The heart remains mildly enlarged. There is mild elevation of the left hemidiaphragm, unchanged. Right gluteal and right thigh intramuscular hematomas are similar to the prior study. There is also presacral hemorrhage again noted. This measures up to 3 cm in thickness. This remains unchanged. Cirrhotic liver with splenomegaly and multiple abdominal varicosities again noted. This is consistent with portal hypertension. The gallbladder remains distended. No definite gallbladder wall thickening by CT. The adrenal glands are unremarkable. Left-sided nephrolithiasis. No hydronephrosis. No retroperitoneal lymphadenopathy. Moderate calcified plaque within the normal caliber abdominal aorta. The deep pelvic structures are not well visualized due to metallic artifact from the hip arthroplasties. The bladder is decompressed by Bautista catheter. Gas within the bladder lumen is likely due to the catheterization. There is mild diffuse circumferential thickening throughout the majority the colon with pericolonic fat stranding. This is consistent with a nonspecific colitis. No dilated loops of bowel to suggest an obstruction. IMPRESSION: 1. Mild diffuse circumferential thickening throughout the majority of the colon consistent with a nonspecific pancolitis. 2. Cirrhotic liver with stigmata of portal hypertension again noted. 3. Right hip intramuscular hematomas and a presacral hematoma are similar to the prior right hip CT. 4. Additional findings as described above. 03/21/23 15:35 MR brain seizure wo con Routine FINDINGS: Scattered small foci of restricted diffusion seen within the cortex of the posterior parietal and occipital lobes as well as the right medial thalamus. There are associated focal areas of increased T2 signal at these locations. These favor small acute infarcts. Posterior reversible encephalopathy syndrome could also have a similar appearance if the patient is demonstrating episodes of severe hypertension. Mild atrophy and microvascular ischemic changes are noted. There is no mass, hematoma, midline shift. Questionable slight increased T2 signal within the medial right temporal lobe in comparison to the left. This best seen on coronal FLAIR image 14. There is mild motion artifact. The major vascular flow-voids at the skull base are well-maintained. The paranasal sinuses and mastoid air cells are clear. No evidence for kennedy matter heterotopia or cortical dysplasia. IMPRESSION: 1. Scattered small foci of restricted diffusion seen within the cortex of the bilateral posterior parietal and occipital lobes as well as the right medial thalamus. There are associated focal areas of increased T2 signal at these locations. These favor small acute infarcts. Posterior reversible encephalopathy syndrome could also have a similar appearance if the patient is demonstrating episodes of severe hypertension. 2. Questionable slight increased T2 signal within the medial right temporal lobe in comparison to the left. Although indeterminate, this raises the possibility of a seizure focus. 03/22/23 US carotid doppler BI Routine FINDINGS: Antegrade flow is seen in the bilateral vertebral arteries. Mild calcified plaque within the bilateral carotid bifurcations. The peak systolic velocity within the right ICA is 152 cm/s distally. This is likely due to the tortuous vessel. The right systolic ratio is 1.3. The peak systolic velocity within the left ICA is 115 cm/s. The left systolic ratio is 1.0. IMPRESSION: Slightly elevated peak systolic velocity within the distal right ICA is likely due to the tortuous vessel. Otherwise, no hemodynamically significant stenosis within the carotid arteries. 03/23/23 04:41 CT head/brain wo con Stat COMPARISON: Comparison made to prior noncontrast head CT from March 21, 2023. FINDINGS: Brain: Unremarkable. No hemorrhage. Mild to moderate nonspecific white matter changes. No edema. Ventricles: Unremarkable. No ventriculomegaly. Bones/joints: Significant atlantoaxial rotation. No acute fracture. Soft tissues: Unremarkable. Sinuses: Unremarkable as visualized. Left NG tube in place. No acute sinusitis. Mastoid air cells: Unremarkable as visualized. No mastoid effusion. IMPRESSION: No evidence of acute intracranial pathology. Hospital Course (1) Dislocation of right hip: As per previous hospitalist w/ addendum Patient presenting from home with reports of right hip pain and suspected dislocation after standing up from the couch. Acute metabolic encephalopathy Acute CVA Seizure due to above Likely multifactorial--hyperammonemia, polypharmacy, Seizures, CVA H/O cirrhosis ? Overdose on home medications --CT head:Suboptimal evaluation due to the motion artifact. However, no definite acute intracranial abnormality. --EEG:Abnormal awake/drowsy EEG revealing evidence of a generalized nonspecific encephalopathy as well as right frontal focal slowing and sharps potentially suggesting focal cerebral dysfunction with lowered threshold for seizures. Further correlation with imaging, MRI, recommended. --MRI Brain:Scattered small foci of restricted diffusion seen within the cortex of the bilateral posterior parietal and occipital lobes as well as the right medial thalamus. There are associated focal areas of increased T2 signal at these locations. These favor small acute infarcts. Posterior reversible encephalopathy syndrome could also have a similar appearance if the patient is demonstrating episodes of severe hypertension. Questionable slight increased T2 signal within the medial right temporal lobe in comparison to the left. Although indeterminate, this raises the possibility of a seizure focus. --Carotid Doppler:Slightly elevated peak systolic velocity within the distal right ICA is likely due to the tortuous vessel. Otherwise, no hemodynamically significant stenosis within the carotid arteries. --ECHO: Left ventricle is normal in size. Mild concentric LVH. No regional wall motion abnormalities noted. Left ventricle is hyperdynamic. EF greater than 70%. Aortic valve stenosis moderate, without significant aortic valvular stenosis. Agitated saline contrast injection performed without gross shunt through diagnostic accuracy limited at heart rates well performed. --LDL:37 --Continue lactulose for Hyperammonemia ---- Appreciate neurology, psychiatry input --Discontinued tramadol --Hold Adderall--plan to hold upon discharge as well --Started on aspirin 81 mg, Lipitor 20 mg daily --Continue Keppra --Seizure precautions -- Avoid sedating meds --Needs follow-up with neurology upon discharge Speech therapy, PT OT eval Needs 30-day mobile monitoring specialist arranged upon discharge 03/23 - overnight patient again unresponsive, had breakthrough seizure, medications provided and CT head obtained. Please see network development coordinator's note for further detail. ICU also consulted and patient was transferred to ICU. ICU staff discussed with neurology in a tertiary center, [facility], and patient was accepted for transfer to their care. Patient was also intubated in ICU. Currently sedated on propofol. Plan to transfer to tertiary center this morning. Right hip dislocation Left pelvic ring and left proximal femoral periprosthetic fractures Secondary to Fall --H/O Right subcapital femoral neck fracture 02/15/2023 s/p repair, H/O nondisplaced periprosthetic left hip fracture 03/15/2023 treated nonsurgically --Right Hip CT: Recent reduction of the right hip arthroplasty acetabular cup. Intra-articular loose bodies within the femoral acetabular joint measuring up to 1.4 cm are suggestive of probable tiny acetabular cortical fracture fragments, donor sites not definitively seen. This prohibits the acetabular cup from adequately seating within the red devil acetabulum as described on the recent radiographs. No acute fracture of the right hemipelvis or right femur identified, however evaluation is limited secondary to streak artifact. Large amount of intramuscular hemorrhage within the right gluteal tissues, and right thigh with intrapelvic extension. Fractured hardware of the left femur with periprosthetic fracture is better seen on the comparison studies. --Pelvic X ray: Bilateral hip total joint arthroplasties with superiorly dislocated right femoral head prosthesis. No evidence of acute right hip fractur e. ORIF changes of the left femur with fracture cannulated screws again noted. Periprosthetic fracture of the left proximal femur again noted with subtle acute nondisplaced left pelvic ring fracture, unchanged from prior CT. --S/P right hip reduction done in ED -- Pain control Fall precautions Appreciate orthopedic input No plan for surgical intervention currently as per orthopedics. Will need anticoagulation for DVT prophylaxis if no recurrence of bleeding issues while on aspirin Rectal Bleeding (Noted on 03/21/23) Pancolitis Acute blood loss anemia Acute metabolic acidosis Possible sepsis Lactic acidosis --CT ABD:Mild diffuse circumferential thickening throughout the majority of the colon consistent with a nonspecific pancolitis. Cirrhotic liver with stigmata of portal hypertension again noted. --Blood cultures: Negative to date -- Continue IV Protonix twice daily Stool studies to rule out infection given possible pancolitis on CT abdomen Continue empiric antibiotics for pancolitis --Appreciate GI Input Monitor H&H and transfuse as needed --Continue IV fluids as needed -- Continue empiric antibiotics with Azactam, Flagyl -- Obtain stool studies if has any diarrhea Blood transfusion reaction Needs premedicated prior to any transfusions Acute respiratory failure with hypoxia Likely secondary to seizure --CTA:Nearly nondiagnostic evaluation of the pulmonary arteries due to motion artifact. No central pulmonary emboli. Consideration might be given to further evaluation with lower extremity venous Doppler ultrasound. No consolidation to suggest pneumonia. Moderate emphysema. Wall thickening within the visualized portion of the colon with adjacent stranding. This represents a nonspecific colitis. Findings better depicted on the CT of the abdomen and pelvis which will be reported separately. -- Continue supplemental oxygen as needed Saturating well on room air on 03/22 03/23 - Pt intubated this AM in ICU, as above Tachycardia Likely physiological Resume metoprolol as able IV Lopressor PRN Per ICU Traumatic intramuscular hemorrhage secondary to fall -- Right Hip CT:Recent reduction of the right hip arthroplasty acetabular cup. Intra-articular loose bodies within the femoral acetabular joint measuring up to 1.4 cm are suggestive of probable tiny acetabular cortical fracture fragments, donor sites not definitively seen. This prohibits the acetabular cup from adequately seating within the red devil acetabulum as described on the recent radiographs. No acute fracture of the right hemipelvis or right femur identified, however evaluation is limited secondary to streak artifact. Large amount of intramuscular hemorrhage within the right gluteal tissues, and right thigh with intrapelvic extension. Fractured hardware of the left femur with periprosthetic fracture is better seen on the comparison studies. -- CT Head:Limited exam secondary to positioning. No acute intracranial abnormality or calvarial fracture identified. -- Monitor H&H and transfuse PRBCs as needed Hold anticoagulation for now (2) UTI (urinary tract infection): Urine culture from 03/16 grew Enterobacter, Klebsiella Completed antibiotic course Repeat urine culture no growth (3) Hypokalemia: Hypomagnesemia Hypokalemia Replete electrolytes as needed (4) HTN (hypertension): Continue metoprolol (5) C. difficile colitis: History of recurrent C. difficile, on chronic vancomycin suppression (6) Emphysema of lung: Appears stable (7) Cirrhosis: Appreciate GI input Monitor (8) Bipolar disorder: (9) Schizophrenia: (10) Depression: Currently not on any medications DVT Px SCDs Re: Hemorrhage Disposition Poor prognosis Palliative care consulted to address goals of care Pt is full code - Pt to be transferred to tertiary center - [facility] for further monitoring and treatment. Total Time Total Time Spent Total Time Spent (In Minutes): 40 Discharge Plan Discharge Items Patient Disposition: Transfer Acute Care Hospital Reason For Visit: HIP DISLOCATION Discharge Diagnosis: CVA, seizure R hip dislocation Activity: Per Instructions section Non-emergency contact: Specialist and Neurologist Call non-emergency contact if: you have any medication questions Follow-up/Referrals: Jersey Ortiz, [Primary Care Provider] - Diet: Other - See Diet Comment Diet Comment: Py now intubated, sedated Addtl Attending Provider Instructions: Pt admitted with R hip dislocation - became unresponsive - had seizure , found to have CVA. Evaluated by neurology and started on Keppra. Last night pt w/ intermittent seizures, transferred to ICU. This AM pt intubated. Plan to transfer to tertiary center ([facility]) to NICU for close monitoring and treatment. Pending Studies at Discharge: Yes Studies:: Final blood cultx results Stand-Alone Forms: My [facility] Skilled Items Patient informed of condition?: No DNR: No Discharge Level of Care: Other Communicable Disease: No Discharge Prognosis: Other Lines: Peripheral IV and US Guided Peripheral IV Urinary Catheter: Yes Medications and DC Order Prescriptions: Continued Acidophilus Lactobacillus 2 cap PO HS potassium chloride 10 mEq capsule, extended release 10 meq PO BID acetaminophen [Tylenol] 325 mg Tablet 350 mg PO QID PRN (Reason: Pain) loperamide 2 mg Capsule 2 mg PO Q8 PRN (Reason: Diarrhea) Rx Instructions: FOR 10 DAYS PRN metoprolol tartrate 100 mg tablet 100 mg PO BID polysaccharide iron complex [Ferrex 150] 150 mg iron Capsule 150 mg PO DAILY ondansetron HCl 4 mg Tablet 4 mg PO Q6H PRN (Reason: Nausea) acetaminophen-codeine 300-30 mg tablet 1 tab PO BID PRN (Reason: Pain) [id number]-loreeyflqidlf-hlld 50-325-40 mg Tablet 1 tab PO Q6H PRN (Reason: Migraine Headache) vancomycin 125 mg capsule 125 mg PO QAM ascorbic acid (vitamin C) [Vitamin C] 500 mg Tablet 500 mg PO BID hydrocortisone 0.25 % Cream 1 applic TOPICAL DIRECTED vitamin B complex Tablet 1 tab PO DAILY S-Xbeo-Jhdrvki 250 mg Tablet 1 tab PO QID Rx Instructions: DISSOLLVE IN 6 OZ WATER. UNKNOWN STRENGTH. hydrochlorothiazide 25 mg tablet 12.5 mg PO DAILY Rx Instructions: TAKE 1/2 IN AM PER RADHA loratadine 10 mg Tablet 10 mg PO DAILY PRN (Reason: ALLERGIES) [id number]-rqyrhe Tablet 1 tab PO DAILY Calcium 600 + D(3) 600 mg-5 mcg (200 unit) Capsule 1 cap PO BID magnesium oxide 400 mg magnesium Tablet 400 mg PO BID Ciloxan 0.3 % Ointment 1 applic ophthalmic (eye) TID Qty: 0 0RF guaifenesin [Mucinex] 600 mg Tablet Extended Release 12hr 600 mg PO Q12 PRN (Reason: congestion) Qty: 0 0RF dextroamphetamine-amphetamine 10 mg tablet 1 tab PO TID tramadol 50 mg Tablet 50 mg PO Q6H PRNQty: 0 0RF Eliquis 2.5 mg Tablet 2.5 mg PO BID Qty: 0 0RF Anoro Ellipta 62.5-25 mcg/actuation Blister With Device 1 inh INHALATION DAILY Advanced Probiotic 625 mg (10 billion cell) Capsule 2 cap PO DAILY Qty: 60 0RF Discontinued ciprofloxacin HCl 250 mg tablet 250 mg PO BID Qty: 6 0RF Discharge Orders: Discharge Order (Routine); Ordered 03/23/23 Ordered By: Ruy Rai Admission Data Admit Date/Time: 03/19/23 14:22 Attending Provider: Ruy Rai Admit Provider: Ricardo Langston Primary Care Provider: Jersey Ortiz Other Providers: Ricardo Langston ; [facility] ; Mila Jamison ; Juan Mejia ; Aristeo Mckenzie ; Justin Cesar ; Miguelina Avila ; Carola Sal ; Bernie Mcduffie ; Vanessa Koenig ; Pierre Cook ; Andre Soliz ; Xavier Bo ; Marie Solorio ; Bebo Stoner ; Vicenta Coley ; Vicki Medellin ; Maggi Rousseau ; Evelin Arvizu ; David Ariza ; Luis Virk ; To Zavala ; Bibi Mejia ; Lisa Patel Jr ; Tj Tobar ; Jaymie Gilbert ; Tj Box Other Interventions: Discharge Summary Assessment (RN) Last Done: 03/23/23 06:59
--- NOTE | 2023-03-23 07:58 | Procedure Note ---
Procedure Note Date of Service March 23, 2023 Note Procedure: Therapeutic aspiration of secretions, initial Provider: Tej Herrera MD Consent: Procedure was emergent. Patient intubated and unable to provide consent Procedure: Patient had just been intubated for hypoxemic respiratory failure. Bronchoscopy was indicated to verify position of the tube as well as to manage secretions. The video fiberoptic scope was advanced through the endotracheal tube via the Bodai adapter. The tube was sounded and found to be in good position about 3 cm above the lorena. There were thick white mucoid secretions in the trachea and right mainstem bronchi. These were lavaged and collected for microbiologic analysis. The inspection bronchoscopy was then completed with notable mucopurulent secretions present in the left mainstem as well. These were also aspirated free. Once the secretions were adequately cleared, the tracheobronchial tree was inspected. It demonstrated normal anatomic configuration. The mucosa was very friable. No significant endobronchial lesions were identified. The bronchoscope was then removed from the airways. The patient tolerated the procedure well without obvious complication. The patient remained intubated in the ICU Impression: 1. Endotracheal tube in good position. 2. Significant mucopurulent secretions throughout the tracheobronchial tree, await microbiologic analysis Coding CPT Codes Pulmonary/Thoracic - Pulmonary and Thoracic: 33498 Dx bronchoscopy/wash ([id number]) [facility] Procedure Codes (Charges) Pulmonary/Thoracic Procedure 1: Pulmonary and Thoracic: 43612 Dx bronchoscopy/wash
--- NOTE | 2023-03-23 08:09 | Critical Care Consultation ---
Date of Consultation March 23, 2023 Assessment & Plan (1) Seizure: Reason Critically Ill: 63-year-old female presents to the ICU following continued seizure-like activity development of new onset seizures after acute CVA on Tuesday. Now being transferred to tertiary center for continuous EEG and intubated to secure airway. Neuro - Acute CVA/seizures Patient with new onset seizures after development of bilateral posterior parietal and occipital lobe CVA. She was started on heparin drip following stroke and did not receive TNKase. She was started on Keppra but has continued to have seizure activity and is now obtunded. Unsure if encephalopathy is mixed etiology with CVA, multiple seizures, and possibly metabolic with sepsis and elevated ammonia. She received 2 mg Ativan and was transferred to the ICU this morning. She did undergo CT head which was negative for acute intracranial findings. Unfortunately, we are unable to tell if the patient is continuing to have seizure activity. She is being transferred to [facility] to undergo continuous EEG monitoring. She is now intubated and on propofol. Cardiac - No significant cardiac history. Currently sinus tachycardia on monitor with heart rate low 100s. She is hemodynamically stable. Continuous monitor on telemetry for now Respiratory - Mechanically ventilatedpatient intubated to secure airway due to reduced consciousness following seizures/stroke -We will obtain chest x-ray and ABG prior to transfer -Continuous monitoring pulse ox -Patient does have history of COPD, will administer DuoNebs as needed. No issue at this time GI - CT abdomen and pelvis with specific pancolitis, cirrhotic liver with stigmata of portal hypertension -Patient does have history of C. difficile colitis and is on suppressive vancomycin -Abdominal exam benign Patient was noted to have bloody stool and was evaluated by gastroenterology. N o immediate plan for scope. H&H has been stable -Monitor RENAL/LYTES - Creatinine within normal limits and no severe electrolyte abnormalities. Monitor routine BMP and replete electrolytes as indicated - Foleystrict I's and O's ENDO - ICU hyperglycemic protocol HEME - H&H stable, monitor routine CBC ID - Sepsis?Patient with leukocytosis, fevers, elevated Pro-Howard. -Urine culture from 03/16/2023 grew Enterobacter and Klebsiella -Flagyl was previously added to antibiotic regimen as patient does have pancolitis on CT -Upon intubation patient was noted to have thick secretions in airway and sample with Gram stain and culture was obtained via [facility] -Repeat cultures -Patient currently on aztreonam and Flagyl LINES/IV ACCESS - Peripheral IVs DVT PROPHYLAXIS - SCDs, heparin drip I have personally spent 65 minutes of critical care time in the direct management of this patient. This is a life/limb threatening event. This includes time spent evaluating patient, direct bedside care, chart review, placing orders, interpretation of diagnostic studies, discussion with consultants, patient, and family members, as well as other required patient management activities. This time is exclusive of all separately billable procedures, and teaching time and separate from and in addition to any other critical care service time. Thank you for allowing us to participate in the care of this patient. Please refer to my attending physician's documentation for any further recommendations. (2) Stroke due to embolism: (3) Dislocation of right hip: Reduced with Ortho. (4) Ambulatory dysfunction: (5) Emphysema of lung: (6) HTN (hypertension): (7) Cirrhosis: (8) Bipolar disorder: (9) Depression: (10) Schizophrenia: Supervising Physician Co-Signing Physician Notes Arrived at bedside at the request of the critical care RENZO. They were prepping to intubate the patient. She was intubated after we administrated etomidate. I performed bronchoscopy. Please see separate procedure notes. Reviewed case with critical care RENZO. The patient is ready been accepted for transfer at [facility] given her recurrent seizures and lack of continuous EEG monitoring here. [facility] had requested the patient be intubated prior to transfer. The patient did have mucopurulent secretions in the lower respiratory tree which were lavaged and collected for microbiologic analysis. She is already on broad- spectrum antibiotics in the form of aztreonam and metronidazole. We initiated sedation with propofol. The patient was packed by the transport team for transport to [facility]. I did update the son at the bedside. History of Present Illness Attending Physician: Ruy Rai MD History of Present Illness Patient is a 63-year-old female with past medical history of cirrhosis, substance abuse, hip fracture, schizophrenia, bipolar disorder HTN, C. difficile colitis (chronic vancomycin suppression), who presented to the emergency department initially on Tuesday with a dislocation of the right hip which was reduced by Ortho. Patient course has been complicated by acute CVA and seizure. She has been followed by neurology and was started on Keppra. MRI showed scattered small foci of restricted diffusion seen within the cortex of the bilateral posterior parietal and occipital lobes as well as the right medial thalamus with associated focal areas of increased T2 signal at these locations raising the possibility of seizure focus. I was notified that the patient had decreased neurological function as of this morning. Patient has been obtunded since Tuesday which apparently has progressively worsened, her left arm is flaccid, and pupils are unequal. On evaluation, I noted that the patient had rhythmic twitching of both eyes and appeared to be having seizure activity. 2 mg Ativan were administered and she was transferred to the ICU for further management. With patient's neurological status which is likely related to her stroke, it is unclear if she is continuing to have seizure activity. I did speak with neurology who agreed that patient may benefit to transfer to tertiary center with continuous EEG capabilities. I talked to [facility] transfer center and Dr. Ponce has excepted the patient for transfer. He did request that the patient be intubated to secure her airway prior to transfer. Patient is now mechanically ventilated, sedated on propofol, and awaiting transfer to tertiary center. Allergies Allergy/AdvReac Type Severity Reaction Status Date / Time Penicillins Allergy Severe ANAPHYLAXIS Verified 03/15/23 14:57 oxycodone [From Percodan] Allergy Unknown Unknown Verified 03/15/23 14:57 ketorolac [From Toradol] AdvReac Severe Breathing Verified 03/15/23 14:57 difficulty hydrocodone AdvReac Intermediate Nausea Verified 03/15/23 14:57 [From Lorcet (hydrocodone)] rifaximin [From Xifaxan] AdvReac Intermediate Dizzy, Verified 03/15/23 14:57 Fell down ursodiol AdvReac Intermediate Dizzy, Verified 03/15/23 14:57 Fell down Home Medications Medication Instructions Recorded Confirmed Type Acidophilus Lactobacillus 2 cap PO HS 02/14/23 03/19/23 History acetaminophen 300 mg-codeine 30 mg 1 tab PO BID PRN Pain 02/14/23 03/19/23 History tablet acetaminophen 325 mg tablet 350 mg PO QID PRN Pain 02/14/23 03/19/23 History (Tylenol) ascorbic acid (vitamin C) 500 mg 500 mg PO BID 02/14/23 03/19/23 History tablet (Vitamin C) boqyrzpjgm-kkyyvgmkhtxxd-agoggjun 1 tab PO Q6H PRN Migraine Headache 02/14/23 03/19/23 History 50 mg-325 mg-40 mg tablet calcium carbonate 600 mg-vitamin 1 cap PO BID 02/14/23 03/19/23 History D3 5 mcg (200 unit) capsule (Calcium 600 + D(3)) hydrochlorothiazide 25 mg tablet 12.5 mg PO DAILY 02/14/23 03/19/23 History hydrocortisone 0.25 % topical cream 1 applic topical DIRECTED 02/14/23 03/19/23 History loperamide 2 mg capsule 2 mg PO Q8 PRN Diarrhea 02/14/23 03/19/23 History loratadine 10 mg tablet 10 mg PO DAILY PRN ALLERGIES 02/14/23 03/19/23 History magnesium oxide 400 mg PO BID 02/14/23 03/19/23 History metoprolol tartrate 100 mg tablet 100 mg PO BID 02/14/23 03/19/23 History sbhescapzfkn-ptdzekub-isoixj tablet 1 tab PO DAILY 02/14/23 03/19/23 History ondansetron HCl 4 mg tablet 4 mg PO Q6H PRN Nausea 02/14/23 03/19/23 History polysaccharide iron complex 150 mg 150 mg PO DAILY 02/14/23 03/19/23 History iron capsule (Ferrex) potassium chloride 10 mEq 10 meq PO BID 02/14/23 03/19/23 History capsule,extended release sodium di- and 1 tab PO QID 02/14/23 03/19/23 History monophosphate-potassium phos monobasic 250 mg tablet (I-Vyip-Npaghku) vancomycin 125 mg capsule 125 mg PO QAM 02/14/23 03/19/23 History vitamin B complex 1 tab PO DAILY 02/14/23 03/19/23 History apixaban 2.5 mg tablet (Eliquis) 2.5 mg PO BID #0 tabs 02/18/23 03/19/23 Rx ciprofloxacin HCl 0.3 % eye 1 applic ophthalmic (eye) TID #0 02/18/23 03/19/23 Rx ointment (Ciloxan) grams dextroamphetamine-amphetamine 10 1 tab PO TID 02/18/23 03/19/23 History mg tablet guaifenesin 600 mg tablet, 600 mg PO Q12 PRN congestion #0 02/18/23 03/19/23 Rx extended release 12 hr (Mucinex) tabs tramadol 50 mg tablet 50 mg PO Q6H PRN #0 tabs 02/18/23 03/19/23 Rx umeclidinium 62.5 mcg-vilanterol 1 inh inhalation DAILY 03/15/23 03/19/23 History 25 mcg/actuation powdr for inhalation (Anoro Ellipta) L.acidop,casei,lactis,rham-B.lact,marva 2 cap PO DAILY #60 caps 03/18/23 03/19/23 Rx 625 mg (10 billion cell) capsule (Advanced Probiotic) Patient History Medical History (Updated 03/22/23 @ 12:23 by Tj Tobar MD) Advanced care planning/counseling discussion Bacteremia Bipolar disorder C. difficile colitis Chronic bronchitis Cirrhosis Combined pulmonary fibrosis and emphysema (CPFE) Depression Dyspnea and respiratory abnormalities Emphysema of lung Based on imaging Fracture of proximal end of left tibia and fibula History of CVA (cerebrovascular accident) Osteomyelitis Osteoporosis Palliative care by specialist Pulmonary nodule 9 mm RML subsolid nodule CT chest 02/29/20. F/U CT recommended 3-6 months Right hip pain Schizophrenia Vitamin D deficiency Surgical History History of appendectomy History of shoulder surgery History of total hip replacement femur fracture one month later with repair, both in 2007 Status post open reduction and internal fixation (ORIF) of fracture Family History Father Myocardial infarction Mother Colorectal cancer Social History Smoking Status: Former smoker Tobacco Type: Cigarettes Cigarettes Per Day: 18; Second Hand Exposure: No; Do You Dip or Chew Tobacco: No; Tobacco Cessation Education Requested by Patient: No Hx Alcohol Use: No Hx Substance Use: No Preferred Language: Syriac Communication Ability: Effective Communication Ability Comment: pt [facility] [employer] C[employer] Inspector Required: No Beliefs That Will Affect Care: None marital status: Current Living Situation: Spouse Current Living Situation Comment: Lives with Other Information That Helps Us Care for You: No Feels Safe at Home: Yes Safety Concerns: Feels Safe At This Time Assistive Devices: Cane, Walker and Wheelchair Review of Systems Review of Systems: All systems reviewed & are unremarkable except as noted in HPI & below Physical Exam Constitutional: + frail appearing and + lethargic Eyes: Right pupil 4 mm, reactive in the loop left pupil 2 mm and reactive. Deviated upward gaze. ENMT: external ear and nose normal, oropharynx normal Neck: + nuchal rigidity and + limited neck extension Respiratory: Lungs clear to auscultation, symmetrical chest wall movement, mechanically ventilated Cardiovascular: Rate/Rhythm: regular rate and + tachycardic Heart Sounds: normal S1 and normal S2; no murmur Vessels: no JVD Extremities: no edema Gastrointestinal (Abdomen): normal bowel sounds, soft, nontender, no hepatosplenomegaly Musculoskeletal: no cyanosis or clubbing, extremities motor strength 5/5 Skin: no rashes, warm and dry Neurologic: Obtunded, does not follow commands. Cough gag corneal intact. Left upper extremity is flaccid and right upper extremity nonlocalizing. Trace movements noted with painful stimuli in lower extremities bilaterally. Pupils unequal but reactive. Psychiatric: Unable to assess due to reduced consciousness Genitourinary: Indwelling Bautista catheter present Results & Data Results & Data Vital Signs (Past 12 Hours) Vital Signs Temp Pulse Pulse Pulse Resp BP BP 03/23/23 07:20 38.8 C H 114 H 23 03/23/23 07:20 119/68 03/23/23 07:17 38.8 C H 113 H 24 03/23/23 07:17 133/84 03/23/23 07:17 135/62 03/23/23 07:15 38.8 C H 113 H 22 03/23/23 07:15 149/71 H 03/23/23 07:10 148/58 H 03/23/23 07:10 38.8 C H 121 H 28 H 03/23/23 07:05 149/62 H 03/23/23 07:05 38.8 C H 122 H 38 H 03/23/23 07:01 38.8 C H 123 H 36 H 153/71 H 03/23/23 07:00 38.8 C H 118 H 25 H 155/62 H 03/23/23 06:59 38.7 C H 140 H 115 H 32 H 131/89 03/23/23 03:40 37.7 C H 126 H 44 H 131/89 03/23/23 03:45 37.7 C H 121 H 44 H 131/89 03/23/23 05:28 03/23/23 06:23 38.7 C H 117 H 32 H 03/23/23 05:28 125 H 03/23/23 06:00 38.8 C H 117 H 33 H 142/72 H 03/23/23 05:48 149/59 H 03/23/23 05:48 38.8 C H 122 H 37 H 03/23/23 05:46 38.8 C H 119 H 39 H 03/23/23 05:00 123 H 03/23/23 04:30 123 H 03/23/23 04:00 123 H 03/23/23 05:57 124 H 149/59 H 03/23/23 04:00 114 H 03/23/23 04:00 115 H 35 H 03/22/23 20:00 03/23/23 00:14 36.3 C L 115 H 22 119/52 L 03/23/23 01:00 37.9 C H 116 H 20 129/57 L 03/23/23 00:30 37.2 C 115 H 20 129/56 L 03/23/23 01:41 37.2 C 117 H 20 114/49 L 03/22/23 23:49 37.8 C H 115 H 20 121/52 L 03/22/23 19:34 37.6 C H 103 H 20 117/51 L BP Pulse Ox O2 Del Method O2 Flow Rate FiO2 03/23/23 07:20 100 03/23/23 07:20 03/23/23 07:17 100 03/23/23 07:17 03/23/23 07:17 03/23/23 07:15 100 03/23/23 07:15 03/23/23 07:10 03/23/23 07:10 100 03/23/23 07:05 03/23/23 07:05 100 03/23/23 07:01 100 03/23/23 07:00 100 03/23/23 06:59 148/66 H 100 03/23/23 03:40 86 L Room Air 03/23/23 03:45 86 L Room Air 03/23/23 05:28 Oxymask 4 03/23/23 06:23 100 Oxymask 4 03/23/23 05:28 03/23/23 06:00 100 4 03/23/23 05:48 03/23/23 05:48 100 03/23/23 05:46 100 03/23/23 05:00 03/23/23 04:30 03/23/23 04:00 03/23/23 05:57 03/23/23 04:00 99 100 03/23/23 04:00 99 BiPAP 03/22/23 20:00 Room Air 03/23/23 00:14 93 03/23/23 01:00 92 03/23/23 00:30 92 03/23/23 01:41 90 03/22/23 23:49 91 03/22/23 19:34 90 Room Air Coding Level of Care Code 43649 CRITICAL CARE 1ST 30-74M Diagnoses Seizure R56.9 Stroke due to embolism I63.9 Dislocation of right hip S73.004A Ambulatory dysfunction R26.2 Emphysema of lung J43.9 HTN (hypertension) I10 Cirrhosis K74.60 Bipolar disorder F31.9 Depression F32.9 Schizophrenia F20.9
[2023-03-23] MEDS ORDERED: MIDAZOLAM HCL 5 MG/ML 2ML VIAL IV ONE (08:19)
[2023-03-23] MEDS ORDERED: ETOMIDATE 2 MG/ML 20 ML VIAL IV ONE (08:19)
[2023-03-23 08:22] LABS: iSTAT Allen Test Pass; iSTAT Arterial Blood Gas HCO3 25 meg/L (19-24); iSTAT Arterial Blood Gas pCO2 45 mmHg (35-46); iSTAT Arterial Blood Gas pH 7.36 (7.35-7.45); iSTAT Arterial Blood Gas pO2 190 mmHg (80-95); iSTAT Carbon Dioxide 27 mmol/L (24-31); iSTAT FiO2 60 %; iSTAT Site L Radial
[2023-03-23] MEDS ORDERED: ATORVASTATIN 20 MG TAB PO SCH (09:00)
[2023-03-23] MEDS ORDERED: PROPOFOL BOLUS FROM BAG IV PRN (14:31)
[2023-03-23] MEDS ORDERED: STAT IV Infusion **Titration per Protocol STA (14:31)
[2023-03-23] MEDS ORDERED: propofoL 1,000 MG/100 ML VIAL IV SCH (14:45)
[2023-03-24 12:36] LABS: 7-Aminoclonaz, Confirm NEGATIVE ng/mL (<25); Amobarbital, Urine Conf NEGATIVE ng/mL (<100); Amphetamine Urine, Confirm 2842 ng/mL (<250); Butalbital, Urine 2950 ng/mL (<100); Codeine Urine NEGATIVE ng/mL (<50); Hydro-Alp Ur, GC/MS NEGATIVE ng/mL (<25); Hydrocodone Urine NEGATIVE ng/mL (<50); Hydromor Urine NEGATIVE ng/mL (<50); Hydroxyethylflurazepam, Conf NEGATIVE ng/mL (<50); Hydroxymidazolam Ur, GC/MS NEGATIVE ng/mL (<50); Hydroxytriazolam NEGATIVE ng/mL (<50); Lorazepam, Ur GC/MS 838 ng/mL (<50); Methamphetamine, Ur Confirm NEGATIVE ng/mL (<250); Morphine Urine NEGATIVE ng/mL (<50); Nordiazepam, Confirm 130 ng/mL (<50); Norhydrocodone Conf Ur NEGATIVE ng/mL (<50); Noroxycodone Urine NEGATIVE ng/mL (<50); Oxazepam Ur, GC/MS 189 ng/mL (<50); Oxycodone Urine NEGATIVE ng/mL (<50); Oxymorph Urine NEGATIVE ng/mL (<50); Pentobarbital, Urine Conf NEGATIVE ng/mL (<100); Phenobarbital, Urine NEGATIVE ng/mL (<100); Secobarbital, Urine Conf NEGATIVE ng/mL (<100); Temazepam, Confirm 212 ng/mL (<50)
--- NOTE | 2023-03-25 18:07 | Communication Note ---
Date of Service: March 25, [address] Martel from [facility]. She states they were planning an LP however wanted to know Ortho's recommendations and restriction for patient's hi ps. I was asked to review Ortho notes, to see Ortho's plan and recommendations. Reviewed notes and discussed with Dr. Wall the following: Ortho notes from 03/22/2023 report hip precautions bilaterally. Nonweightbearing on left. Abduction pillow in place. Discussed on depending on patient's recovery hip abduction brace or knee immobilizer on right leg may be considered. Ortho note from 03/20/2023: Plan: Abduction pillow and posterior hip precautions Was inquiring if patient had received any PT during her most recent hospitalization prior to transfer to [facility]. According to PT notes from our r ecords last PT completed on 03/18/2023. However patient was readmitted on 03/19/2023 and no records of any physical therapy completed after 03/18/2023.
== END 2023-03-23 08:20 | disposition short-term general hospital (02) | DRG 559 ==
LOC: ED 10:39 → SUATTDRO 14:22 → 3W 14:22 → 4W 03-21 10:10 → 1E 03-23 04:41